=== PATIENT | male | born 1945 | race Hispanic/Latino ===

== ENCOUNTER 2016-05-01 13:40 | Inpatient (IN) | payer MEDICARE ==
[2016-05-01] MEDS ORDERED: Dextrose 50% SYRINGE Inj (50 ml) IV STA ×2 (14:58→17:59)
[2016-05-01] MEDS ORDERED: Dextrose 50% SYRINGE Inj (50 ml) ONE ×3 (14:59→17:57)
[2016-05-01 15:13] LABS: BASO # 0.1 K/uL (0.0-0.2); BASO % 1.1 % (0.0-2.0); EOS # 0.3 K/uL (0.0-0.7); EOS % 4.4 % (0.0-4.0); HEMATOCRIT 41.4 % (35.0-51.0); LYMPH # 1.2 K/uL (1.0-4.3); LYMPH % 16.1 % (20.0-40.0); MEAN CELL VOLUME 86.4 fL (80.0-94.0); MEAN CORPUSCULAR HEMOGLOBIN 29.4 pg (27.0-31.0); MEAN CORPUSCULAR HGB CONC 34.1 g/dL (33.0-37.0); MEAN PLATELET VOLUME 8.8 fL (7.2-11.7); MONO # 0.6 K/uL (0.0-0.8); MONO % 7.5 % (0.0-10.0); RED CELL DISTRIBUTION WIDTH 15.3 % (11.5-14.5); WHITE BLOOD COUNT 7.3 K/uL (4.8-10.8)
[2016-05-01] MEDS ORDERED: Epinephrine /Lidocaine HCL 1:100,000/2% 30 ml INJ ONE (15:24)
[2016-05-01 15:27] LABS: CHLORIDE 102 mmol/L (98-107); POTASSIUM 4.5 mmol/L (3.6-5.2)
[2016-05-01 15:29] LABS: AST/SGOT 15 U/L (17-59); BILIRUBIN,TOTAL 0.5 mg/dL (0.2-1.3); GFR AFRICAN-AMERICAN > 60
[2016-05-01 15:30] LABS: ALB/GLOB RATIO 1.3 (1.0-2.1); ALKALINE PHOSPHATASE 71 U/L (38-126); ALT/SGPT 15 U/L (21-72); BLOOD UREA NITROGEN 23 mg/dL (9-20); CALCIUM 8.3 mg/dl (8.6-10.4); CARBON DIOXIDE 26 mmol/L (22-30); GLUCOSE,RANDOM 51 mg/dL (75-110); TOTAL PROTEIN 6.7 g/dL (6.3-8.3)
[2016-05-01 15:33] LABS: SODIUM 142 mmol/L (132-148)
--- NOTE | 2016-05-01 16:17 | CT ---
PROCEDURE: CT HEAD WITHOUT CONTRAST. HISTORY: head trauma, lac to R eyebrow COMPARISON: None available. TECHNIQUE: Axial computed tomography images were obtained through the head/brain without intravenous contrast. Radiation dose: Total exam DLP = 956.22 mGy-cm. FINDINGS: HEMORRHAGE: No intracranial hemorrhage. BRAIN: There are mild chronic microangiopathic changes. There is no mass, mass effect or abnormal extra-axial fluid collection. VENTRICLES: There is moderate age-related global parenchymal volume loss and proportionate enlargement of the ventricles and cortical sulci. CALVARIUM: There is no calvarial fracture or extracranial soft tissue swelling. PARANASAL SINUSES: There is mild scattered mucosal thickening in the ethmoid air cells. The remaining included paranasal sinuses are predominantly clear. MASTOID AIR CELLS: Predominantly clear. OTHER FINDINGS: None. IMPRESSION: No acute intracranial abnormality. Mild chronic microangiopathic changes and moderate age-related global parenchymal volume loss.
--- NOTE | 2016-05-01 16:20 | CT ---
PROCEDURE: CT Cervical Spine without contrast HISTORY: Fall, pain COMPARISON: None available. TECHNIQUE: Axial computed tomography images were obtained of the cervical spine without the use of intravenous contrast. Coronal and sagittal reformatted images were created and reviewed. Radiation dose: Total exam DLP = 593 mGy-cm. FINDINGS: VERTEBRAE: No fracture. Normal alignment. No destructive bony lesion. DISCS/SPINAL CANAL/NEURAL FORAMINA: There is left-sided facet arthropathy with foraminal stenosis at C3-4. There is severe right-sided facet arthropathy at C4-5 with severe foraminal stenosis There is moderate facet arthropathy with right-sided foraminal stenosis at C5-6. There is a broad-based central disc protrusion at this level C6-7 is unremarkable Discs heights are grossly preserved. PARASPINAL SOFT TISSUES: Unremarkable. OTHER FINDINGS: None. IMPRESSION: Multilevel degenerative changes. No evidence of fracture
--- NOTE | 2016-05-01 16:36 | C.PDOC ---
History Of Present Illness 70-year-old male, PMHx includes Diabetes, presents to the emergency department w / complaints of dizziness. Patient states he took his Levemir this morning; States he did not eat as much as he should have, and while he was walking outside prior to arrival, patient had a syncopal episode, sustaining an injury to head and B/L hands. Patient found to be hypoglycemic, given OJ and brought to the ED for evaluation. In ED, patient is awake. Denies vomiting, fevers, numbness/weakness, headaches, chest pain, shortness of breath or any other associated symptoms. No other complaints at this time. Time Seen by Provider: 05/01/16 14:42 Chief Complaint (Nursing): Syncope History Per: Patient History/Exam Limitations: no limitations Onset/Duration Of Symptoms: Mins Current Symptoms Are (Timing): Better Severity: Moderate Pain Scale Rating Of: 7 Recent travel outside of the [place]: No Past Medical History Reviewed: Historical Data, Nursing Documentation, Vital Signs Vital Signs: Last Vital Signs Temp 97.7 F 05/01/16 14:12 Pulse 65 05/01/16 14:12 Resp 16 05/01/16 14:12 BP 126/84 05/01/16 14:12 Pulse Ox 97 05/01/16 18:10 - Medical History PMH: Depression, HTN, Pancreatitis Denies: Chronic Kidney Disease Family History: States: Unknown Family Hx - Social History Hx Tobacco Use: Yes Hx Alcohol Use: No Hx Substance Use: No - Immunization History Hx Tetanus Toxoid Vaccination: No (unsure) Hx Influenza Vaccination: No (unsure) Hx Pneumococcal Vaccination: No (unsure) Review Of Systems Except As Marked, All Systems Reviewed And Found Negative. Constitutional: Positive for: Weakness. Negative for: Fever, Chills Cardiovascular: Negative for: Chest Pain, Palpitations Gastrointestinal: Negative for: Nausea, Vomiting Musculoskeletal: Negative for: Back Pain Skin: Negative for: Rash Neurological: Positive for: Other (SYNCOPE). Negative for: Weakness, Numbness, Headache Physical Exam - Physical Exam Appears: Non-toxic, No Acute Distress Skin: Warm, Dry, No Rash, Other (ABRASION ON THE LEFT 5TH FINGER ) Head: Abrasion, Laceration, Other (1CM LAC: R EYEBROW; ABRASION TO UPPER LIP) Eye(s): bilateral: Normal Inspection, PERRL, EOMI Ear(s): Bilateral: Normal Nose: Normal Oral Mucosa: Moist Throat: Normal Neck: Normal ROM, No Midline Cervical Tenderness, No Paracervical Tenderness, Supple Chest: Symmetrical, No Tenderness Cardiovascular: Rhythm Regular, No Friction Rub, No Murmur Respiratory: Normal Breath Sounds, No Accessory Muscle Use, No Rales, No Rhonchi , No Wheezing Gastrointestinal/Abdominal: Normal Exam, Soft, No Tenderness Extremity: Normal ROM, No Tenderness, Other (Mild tenderness to the dorsal) Neurological/Psych: Oriented x3, Normal Speech, Normal Cranial Nerves, Normal Motor, Normal Sensation Gait: Steady ED Course And Treatment - Laboratory Results Result Diagrams: 05/01/16 15:05 05/01/16 15:05 ECG: Interpreted By Me, Viewed By Me ECG Rhythm: Sinus Rhythm, PVC ECG Interpretation: No Acute Changes Rate From EC O2 Sat by Pulse Oximetry: 97 (on RA) Pulse Ox Interpretation: Normal - Other Rad CT HEAD X-Ray: Viewed By Me, Read By Radiologist Interpretation: Accession No. : [id number]. Patient Name / ID : FAROOQ ÁLVAREZ / [id number]. Exam Date : 05/01/2016 15:54:02 ( Approved ). Study Comment : Sex / Age : M / 70Y. Creator : AB BABB MD. Dictator : AB BABB MD. Powder Truck Driver : Applications Engineer : AB BABB MD. Approver2 : Report Date : 05/01/2016 16:16:09. My Comment : . PROCEDURE: CT HEAD WITHOUT CONTRAST. HISTORY: head trauma, lac to R eyebrow. COMPARISON: None available. TECHNIQUE: Axial computed tomography images were obtained through the head/brain without intravenous contrast. Radiation dose: Total exam DLP = 956.22 mGy-cm. FINDINGS: HEMORRHAGE: No intracranial hemorrhage. BRAIN: There are mild chronic microangiopathic changes. There is no mass, mass effect or abnormal extra-axial fluid collection. VENTRICLES: There is moderate age- related global parenchymal volume loss and proportionate enlargement of the ventricles and cortical sulci. CALVARIUM: There is no calvarial fracture or extracranial soft tissue swelling. PARANASAL SINUSES: There is mild scattered mucosal thickening in the ethmoid air cells. The remaining included paranasal sinuses are predominantly clear. MASTOID AIR CELLS: Predominantly clear. OTHER FINDINGS: None. IMPRESSION: No acute intracranial abnormality. Mild chronic microangiopathic changes and moderate age-related global parenchymal volume loss. - CT Scan/US CT C SPINE Other Rad Studies (CT/US): Read By Radiologist, Radiology Report Reviewed CT/US Interpretation: Accession No. : [id number]. Patient Name / ID : FAROOQ ÁLVAREZ / [id number]. Exam Date : 05/01/2016 15:56:36 ( Approved ). Study Comment : Sex / Age : M / 70Y. Creator : Kelton Espinosa MD. Dictator : Kelton Espinosa MD. Powder Truck Driver : Applications Engineer : Kelton Espinosa MD. Approver2 : Report Date : 05/01/2016 16:18:54. My Comment : . PROCEDURE: CT Cervical Spine without contrast. HISTORY: Fall, pain. COMPARISON: None available. TECHNIQUE: Axial computed tomography images were obtained of the cervical spine without the use of intravenous contrast. Coronal and sagittal reformatted images were created and reviewed. Radiation dose: Total exam DLP = 593 mGy-cm. FINDINGS: VERTEBRAE: No fracture. Normal alignment. No destructive bony lesion. DISCS/SPINAL CANAL/NEURAL FORAMINA: There is left-sided facet arthropathy with foraminal stenosis at C3-4. There is severe right-sided facet arthropathy at C4-5 with severe foraminal stenosis. There is moderate facet arthropathy with right-sided foraminal stenosis at C5- 6. There is a broad-based central disc protrusion at this level. C6-7 is unremarkable Discs heights are grossly preserved. PARASPINAL SOFT TISSUES: Unremarkable. OTHER FINDINGS: None. IMPRESSION: Multilevel degenerative changes. No evidence of fracture Procedure: Wound Repair - Time Performed Time Performed: 18:00 - Time Out Time Out: Side verified, Site verified - Procedure Procedure: Wound Repair: Right eyebrow - Consent Obtained Consent obtained: Verbal - Performed by Performed by: Mid-level Provider (Jinny) - Indications Indication(s):: Laceration - Location Shape:: Linear - Debris Debris:: None - Irrigated Irrigated with ml of normal saline: 60 - Complexity Complexity:: Simple (one layer) - Wound repair method Sutures:: # (three), Size (5-0), Type (Prolene), Technique (interrupted) - Patient tolerated procedure Patient Tolerated Procedure:: Well Medical Decision Making Medical Decision Making: D50 given for glucose of 50. On re-exam, the patient's blood sugar had dropped to 31 and patient was feeling palpitations. Lee juice and Amp D50 given. Wrist xray was found to have fracture patient reports that the fracture was from January and was non-healing, this reading is most likely chronic. Patient has splint on the Right wrist and will keep it on. The case was discussed with Dr. Lani Perez (internal medicine oncall) who agrees to admit the patient to her service for observation of the hypoglycemia. Disposition - Disposition Disposition: HOSPITALIZED Disposition Time: 18:00 Condition: STABLE - POA Present On Arrival: None - Clinical Impression Clinical Impression: Syncope, Distal radius fracture, right, Hypoglycemia - Scribe Statement The provider has reviewed the documentation as recorded by the Gerardo Dixon All medical record entries made by the Scribe were at my direction and personally dictated by me. I have reviewed the chart and agree that the record accurately reflects my personal performance of the history, physical exam, medical decision making, and the department course for this patient. I have also personally directed, reviewed, and agree with the discharge instructions and disposition.
[2016-05-01] MEDS ORDERED: Lidocaine 1% Inj (20ml) ONE (16:42)
[2016-05-01] MEDS ORDERED: Oxycodone/Acetaminophen 5/325 mg Tab ONE (17:34)
[2016-05-01] MEDS ORDERED: Oxycodone/Acetaminophen 5/325 mg Tab PO STA (18:14)
[2016-05-01] MEDS ORDERED: Bacitracin 500 Units/gm Oint Foilpak UD TOP ONE (18:15)
[2016-05-01] MEDS ORDERED: Bacitracin 500 Units/gm Oint Foilpak UD ONE (18:18)
--- NOTE | 2016-05-01 18:37 | RAD ---
PROCEDURE: Right Wrist Radiographs. HISTORY: wrist injury hx of fx 2 months ago COMPARISON: None. FINDINGS: BONES: There is a subacute transverse nondisplaced impacted fracture in the distal radius. There is diffuse bone demineralization. JOINTS: The proximal and distal carpal rows are maintained. There is moderate degenerative osteoarthrosis in the 1st LONGTERM and scaphotrapezium joints. SOFT TISSUES: There is moderate soft tissue swelling at the wrist joint. OTHER FINDINGS: None. IMPRESSION: Subacute transverse nondisplaced impacted fracture in the distal radius. No dislocation. Moderate soft tissue swelling at the wrist joint.
[2016-05-01] MEDS: Sodium Chloride 0.45% 1,000 ML IV SCH (21:47)
[2016-05-01] MEDS ORDERED: Oxycodone/Acetaminophen 5/325 mg Tab PO PRN (21:48)
--- NOTE | 2016-05-01 21:53 | CP.PCM.PN ---
Subjective - Date & Time of Evaluation Date of Evaluation: 05/01/16 Time of Evaluation: 21:00 - Subjective Subjective: H&P dictated #[id number] Objective - Vital Signs/Intake and Output Vital Signs (last 24 hours): Temp Pulse Resp BP Pulse Ox 97.3 F L 48 L 20 109/60 98 05/01/16 20:10 05/01/16 20:10 05/01/16 20:10 05/01/16 20:10 05/01/16 20:10 - Medications Medications: Current Medications Sodium Chloride (Sodium Chloride 0.45%) 1,000 mls @ 75 mls/hr IV .[id number] [facility] Last Admin: 05/01/16 21:47 Dose: 75 mls/hr Oxycodone/Acetaminophen (Percocet 5/325 Mg Tab) 1 tab PO Q6H PRN PRN Reason: Pain, moderate (4-7) Stop: 05/04/16 21:49 Rosuvastatin Calcium (Crestor) 5 mg PO HS [facility] Tamsulosin HCl (Flomax) 0.4 mg PO DAILY [facility] - Labs Labs: PT 11.5 SECONDS (9.7-12.2) 05/01/16 15:05 INR 1.0 05/01/16 15:05 APTT 32 SECONDS (21-34) 05/01/16 15:05
[2016-05-01] MEDS: (Novolin R) Insulin Human Regular 100 units/ml vial SC SCH (22:32)
--- NOTE | 2016-05-02 07:03 | HP ---
CHIEF COMPLAINT: The patient had sustained a syncopal episode while he was walking to the doctor's o ffice this morning. HISTORY OF PRESENT ILLNESS: The patient is a 70-year-old male with past medical history of hypertens ion, diabetes mellitus, depression, history of ETOH abuse, quit about 9 years ago. History of pancre atic cyst, status post abdominal surgery for pancreatic cyst, questionable heart murmur who has been following up with Dr. Pierce as primary care physician, came into the ED, brought by EMS after the pa tami had sustained a syncopal episode while walking to the doctor's office. As per the patient, he was in his usual state of health until this morning and he woke up this morning, he did not eat as us ual. He was walking on the street to go to Dr. Dar Miranda's office for his orthopedic appointment for right wrist fracture, which he sustained about [address] to the doctor's office, he cooper ddenly fell to the ground and by the time he woke up there were people around him and he was on the g round. When EMS arrived, he was initially confused, not able to answer to the questions, then he cla ims that after he arrived in the Emergency Room, he was fully aware of the surroundings. He denied a ny headache, dizziness, lightheadedness, chest pain or any shortness of breath or wheezing associated or prior to this syncope. He did not have a tongue bite or urinary incontinence during the episode. As per the patient, he has been falling multiple times lately. He had fallen 4 or 5 times in the p ast 6 months. The first one was a slip and fall and [place]. He claims that he was not able to balance. He fell backwards and sustained injury last one was around the [place] time of 2015, while he was walking, he suddenly fell to the ground on t he right side sustaining a right wrist fracture for which she has been following up with orthopedics. He was evaluated at [facility] Emergency Room as per the patient, and he was sent home from the Emergen cy Room to be followed up with Ortho. All the episodes happened without any warning signs or he did not have any chest pain associated with it. He denied any other neurologic symptoms. He was never e valuated by any maint mechanic or neurologist for these fainting episodes. 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 He was supposed to follow up with endo crinologist for his diabetes. He had seen his primary care physician about 2 weeks ago and his insul in dose was adjusted. As per him, he was told to take 45 units, but he has been taking less insulin when he visited his primary care physician. His PMD advised him to stick to 45 units daily, without any change or adjustment on his own, and patient was advised to follow up with endocrinology, which james alford did not make that appointment with endocrinology. When I examined the patient, he denies any headache, dizziness. Denies any chest pain, shortness of breath or wheezing. Denies any nausea, vomiting, abdominal pain, diarrhea or constipation. Denies a ny urinary complaints. Complaining of right wrist pain from fall. There was a bruise to the right u pper eyelid. Denies any other neurologic symptoms. PAST MEDICAL HISTORY: As described, diabetes mellitus, hypertension, history of ETOH abuse, depressi on, history of pancreatic cyst. PAST SURGICAL HISTORY: Abdominal surgery for removal of the pancreatic cyst and a stent and history of tonsillectomy. FAMILY HISTORY: Montse Gehrig's disease in mother and sister. Father is diseased. He has his brother and sister living. PERSONAL HISTORY: He is single, not having any children. He lives alone. His brother helps him out . 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 SOCIAL HISTORY: He smokes 3 packs per day for the past 50 years. He used to drink alcohol heavily f rom which he had alcoholic liver disease and complications of the pancreas. He quit alcohol about 9 years ago. MEDICATIONS: Levemir 45 units daily. He does not remember the dosages of other medications, which camron subramanian takes. Metoprolol, Creon, omeprazole, Flomax, mirtazapine, and glipizide, Norvasc. ALLERGIES: No known drug allergies. REVIEW OF SYSTEMS: As described in history of present illness. All other systems reviewed and were found to be negative. PHYSICAL EXAMINATION: GENERAL: Elderly male lying in bed in no acute distress. VITAL SIGNS: Blood pressure 109/60, pulse 64, respirations 20, temperature 97.3 degrees Fahrenheit, O2 sats 98% on room air. HEENT: Pupils equal, round, reacting to light and accommodation. Extraocular muscles intact. No ic terus, no pallor, right eyelid bruise noted with swelling and erythema. No oral thrush. No pharynge al congestion. There is abrasion of the right upper lip noted. NECK: Supple. No JVD. LUNGS: Bilateral vesicular breath sounds. No wheezing, no rhonchi. CARDIOVASCULAR: S1, S2 present, regular. ABDOMEN: Soft, nontender. Bowel sounds present. No guarding, no rigidity, no rebound tenderness no pillo. CENTRAL NERVOUS SYSTEM: Alert, awake, oriented x3. No focal neurologic deficits noted. EXTREMITIES: No edema. Palpable peripheral pulses. Multiple bruises noted on the lower extremities . LABORATORY DATA: Labs done from the ED. WBC 7.3, hemoglobin 14.1, hematocrit 41.4, platelets 177. PT 11.5, INR 1.0, PTT 32. Sodium 142, potassium 4.5, chloride 102, bicarbonate 26, BUN 20, creatinin e 1.4, glucose 192, calcium 8.3, total bilirubin 0.5, AST 15, ALT 15, alkaline phosphatase 71. Cardi ac enzymes x1 negative. Total protein 6.7, albumin 3.8, globulin 2.9. Cervical CT, multilevel degenerative changes, no evidence of fracture. Head CT: No acute intracrani al abnormality, mild chronic microangiopathic changes and moderate age-related global parenchymal vol ume loss. Wrist x-ray shows subacute transverse nondisplaced impacted fracture in the distal radius, no disloca tion, moderate soft tissue swelling at the wrist joint. EKG consistent with normal sinus rhythm with frequent PVCs noted. ASSESSMENT AND PLAN: Elderly male with history of hypertension, diabetes mellitus, history of ETOH a buse, pancreatic cyst removal, depression, questionable heart murmur, came into the ED after patient had sustained a fall this morning while he was walking to the doctor's office, he claimed that he has been having multiple episodes of falls in the past 6 months and patient is being admitted for [facility] management. 1. Status post syncope, rule out secondary to cardiac arrhythmias, rule out neurologic causes, rule out vasovagal, rule out secondary to hypoglycemic agents resulting in hypoglycemia. 2. History of hypertension. 3. History of depression. 4. History of ETOH abuse. 5. History of right wrist nondisplaced fracture. PLAN: The patient is being admitted to cardiac telemetry. We will do serial cardiac enzymes, serial EKGs. We will check echocardiogram. We will obtain cardiology and neurology evaluation. We will g halina aspirin 325 mg p.o. daily. We will give Crestor 5 mg p.o. daily. Advised patient to bring his h ome medication dosages, so can restart him on his medication. We will hold Levemir and glipizide, mo nitor his Accu-Cheks. We will do neuro checks. We will do carotid Doppler and echocardiogram. We w ill check lipid profile, TSH, B12, folate, RPR, hemoglobin A1c level. We will give heparin for DVT p rophylaxis and Percocet as needed for pain. Start him on thiamine, folate and multivitamin be given nicotine patch as he is a heavy smoker will add further recommendation as his clinical course progres ses. Gene Perez MD cc: [id number] TT: 05/02/2016 07:02:32 [place]
[2016-05-02] MEDS: (Novolin R) Insulin Human Regular 100 units/ml vial SC SCH ×4 (08:05→22:00)
[2016-05-02 08:29] LABS: CHOLESTEROL 78 mg/dL (0-199)
[2016-05-02 08:51] LABS: ALB/GLOB RATIO 1.2 (1.0-2.1); ALKALINE PHOSPHATASE 68 U/L (38-126); ALT/SGPT 15 U/L (21-72); AST/SGOT 14 U/L (17-59); BILIRUBIN,DIRECT 0.4 mg/dL (0.0-0.4); BILIRUBIN,TOTAL 0.4 mg/dL (0.2-1.3); TOTAL PROTEIN 5.8 g/dL (6.3-8.3)
[2016-05-02 09:21] LABS: THYROID STIMULATING HORMONE 2.08 mIU/L (0.46-4.68)
[2016-05-02] MEDS: Sodium Chloride 0.45% 1,000 ML IV SCH ×2 (09:30→15:27)
[2016-05-02 09:39] LABS: RBC URINE 1 /hpf (0-3); URINE BILIRUBIN NEGATIVE (NEGATIVE); URINE BLOOD NEGATIVE (NEGATIVE); URINE COLOR Yellow (YELLOW); URINE GLUCOSE (UA) 1+ mg/dL (Normal); URINE KETONE NEGATIVE (NEGATIVE); URINE LEUKOCYTE ESTERASE NEG Leu/uL (Negative); URINE PROTEIN NEGATIVE (NEGATIVE); URINE UROBILINOGEN NORMAL mg/dL (0.2-1.0); WBC URINE < 1 /hpf (0-5)
[2016-05-02 09:55] LABS: FOLATE 11.6 ng/mL
--- NOTE | 2016-05-02 10:28 | MRI ---
PROCEDURE: MRI BRAIN WITHOUT CONTRAST HISTORY: stroke Vs mass COMPARISON: Noncontrast head CT from 05/01/2016 TECHNIQUE: Multiplanar, multisequence MR images of the brain were obtained without intravenous contrast enhancement. FINDINGS: HEMORRHAGE: None DWI: No evidence of an acute or early subacute infarction. BRAIN PARENCHYMA: There are moderate chronic microangiopathic changes. 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 There is no mass, mass effect or abnormal extra-axial fluid collection. There is a partially empty sella, otherwise the midline sagittal structures are normal. VENTRICLES: There is mild age-related global parenchymal volume loss and proportionate enlargement of the ventricles and cortical sulci. The left ventricle is slightly larger than the right, likely an anatomic variant. CRANIUM: There is normal bone marrow signal pattern. ORBITS: Within normal limits. PARANASAL SINUSES/MASTOIDS: There is moderate mucosal thickening in the frontal sinuses and ethmoid air cells. There is a left mastoid effusion. The remaining included paranasal sinuses and right mastoid air cells are predominantly clear. VASCULAR SYSTEM: There are normal signal voids in the larger intracranial arteries. OTHER FINDINGS: None. IMPRESSION: 1. No acute intracranial abnormality. 2. Moderate chronic microangiopathic changes and mild age-related global parenchymal volume loss.
[2016-05-02] MEDS: Multiple Vitamins Tab PO SCH (10:31)
--- NOTE | 2016-05-02 11:14 | CON ---
DATE: 05/02/2016 ATTENDING PHYSICIAN: Gene Perez MD ROOM: 671, bed A REASON FOR CONSULTATION: Syncopal attack. CHIEF COMPLAINT: The patient was brought in to [facility] with a history of loss of consciousness and fall on his right side in the street. From neurological point of view, I was called in to evaluate him for further management. 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 Last year, he fell and broke his right wrist and right forearm. Multiple falls also related to some losing his balance, that what he admits. This fall this morning, he feels like woke up with a headache and while he was walking on the street, because of the headache, he took a donut. While he was eating donut on the street, next thing he realized, he fell on his right side and injured his face and hand. No witnessed tonic-clonic activities had been documented. No bowel or bladder incontinence. No history of bitten tongue. The patient was found to have low sugar and he was given some OJ and brought to the Emergency Room. 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 FAMILY HISTORY: Not known. SOCIAL HISTORY: He quit smoking since 2007 secondary to pancreatitis. However , he admits that he had been smoking 3 packs per day. REVIEW OF SYSTEMS: As per H and P. PHYSICAL EXAMINATION: VITAL SIGNS: Blood pressure 129/69, mean arterial pressure 89, respiratory rate 16, temperature afebrile. NECK: Supple. No carotid bruit. HEART SOUNDS: Regular. CHEST: Fair air entry. EXTREMITIES: No edema in legs. FACE: Right eyebrow had stitches. There is some lid swelling with ecchymoses noted. Right upper lip has a laceration. HAND: With multiple scratch peña in the dorsum of the fingers, right more than his left side. NEUROLOGIC EXAMINATION: MENTAL STATUS: He is awake, alert, oriented to person, place, and time. No confabulation. There is significant retrograde amnesia from the fall. There is no antegrade amnesia. No suicidal ideation. CRANIAL NERVES: Visual field intact. Pupils react to light. Extraocular movement normal. No nystagmus. No facial sensory deficit. Facial asymmetry because of the swelling of his face on his right side noted. Hearing is normal. Tongue is midline. Good gag. MOTOR: On outstretched hands with eyes closed, no drift noted. Power is symmetric on either side. No asterixis on outstretched hand with eyes closed. Deep tendon reflexes are absent. Plantars are upgoing on both sides. SENSORY: Significant bilateral dissymmetric sensorimotor neuropathy without affecting the posterior column. COORDINATION: [id number] test is intact with mild tremor into it. CONCLUSION: Upon reviewing his history and neurological examination, the patient has been presenting with recurrent falls. The recent fall associating with loss of consciousness. There is a possibility of nonconvulsive seizures from neurological point of view unless otherwise ruled out. Other possible causes, metabolic causes, include hypoglycemia could be a consideration. Other causes from cardiac causes including arrhythmias should be ruled out. 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 WORKUP: A CT of the head reported as negative. CT of the cervical spine, some neural foraminal stenosis at C3-C4 level. EKG normal sinus rhythm. BLOOD WORKUP: WBC 7.3, hemoglobin 14.1, hematocrit 41.4, platelets 177. PT 11.5, INR 1.0, PTT 32. Sodium 142, potassium 4.5, chloride 102, bicarbonate 26 , BUN 23, creatinine 1.4, glucose 208, AST and ALT are 15. Tox screen is not done. The patient is recommended to have: 1. Carotid Doppler, echocardiogram, MRI of the brain and EEG. 2. Agree with thiamine and aspirin for now. Multivitamins also can be added. 3. Abstinence from smoking is well discussed with him. He is aware of it. He is going to try for the same. The patient will be followed closely with you. Jaya Koch MD cc: [id number] TT: 05/02/2016 11:13:53 Confirmation # [id number] Dictation # [id number] en MTDD
--- NOTE | 2016-05-02 11:27 | CP.PCM.PN ---
Subjective - Date & Time of Evaluation Date of Evaluation: 05/02/16 Time of Evaluation: 11:00 - Subjective Subjective: Progress note dictated #[id number] Objective - Vital Signs/Intake and Output Vital Signs (last 24 hours): Temp Pulse Resp BP Pulse Ox 97.8 F 70 20 123/71 97 05/02/16 09:21 05/02/16 09:21 05/02/16 09:21 05/02/16 09:21 05/02/16 09:21 Intake and Output: 05/02/16 05/02/16 06:59 18:59 Intake Total 1100 Output Total 200 Balance 900 - Medications Medications: Current Medications Aspirin (Aspirin) 325 mg PO DAILY [facility] Last Admin: 05/02/16 10:31 Dose: 325 mg Folic Acid (Folic Acid) 1 mg PO DAILY [facility] Last Admin: 05/02/16 10:31 Dose: 1 mg Heparin Sodium (Porcine) (Heparin) 5,000 units SC Q8 [facility] Last Admin: 05/02/16 06:18 Dose: 5,000 units Sodium Chloride (Sodium Chloride 0.45%) 1,000 mls @ 75 mls/hr IV .[id number] [facility] Last Admin: 05/01/16 21:47 Dose: 75 mls/hr Insulin Human Regular (Novolin R) 1 unit SC ACHS [facility] PRN Reason: Protocol Last Admin: 05/02/16 08:05 Dose: Not Given Multivitamins (Hexavitamin) 1 tab PO DAILY [facility] Last Admin: 05/02/16 10:31 Dose: 1 tab Nicotine (Nicoderm Cq) 1 patch TD DAILY [facility] Last Admin: 05/02/16 10:32 Dose: Not Given Pneumococcal Polyvalent Vaccine (Pneumovax 23 Vaccine) 0.5 ml IM .ONCE ONE Stop: 05/03/16 10:01 Rosuvastatin Calcium (Crestor) 5 mg PO HS [facility] Last Admin: 05/01/16 23:11 Dose: 5 mg Tamsulosin HCl (Flomax) 0.4 mg PO DAILY [facility] Last Admin: 05/02/16 10:31 Dose: 0.4 mg Thiamine HCl (Vitamin B1 Tab) 100 mg PO DAILY [facility] Last Admin: 05/02/16 10:31 Dose: 100 mg - Labs Labs: PT 11.5 SECONDS (9.7-12.2) 03/09/17 15:05 INR 1.0 05/01/16 15:05 APTT 32 SECONDS (21-34) 05/02/16 00:13
--- NOTE | 2016-05-02 12:54 | CP.PCM.CON ---
<Kulwant Diaz - Last Filed: 05/02/16 12:45> History of Present Illness - History of Present Illness History of Present Illness: Consult note for Dr Villatoro: 70 M with pmh of pancreatic cyst, HTN, DM, Depression, and ETOH abuse presents with syncopy. Pt states that he was in the street walking to his doctors office and the next this he realized he was down on the floor with people around him. Pt complains of multiple falls in the past few 6 months with one time fracturing his R wrist which he sustained about 3 months ago. He denied any chest pain or shortness of breath at the time. He denies biting his tongue or having any urinary incontinence. He states that all episodes of syncopy did not have any warning signs. He states that he has not followed up with any bisque kiln placer or neurologist for these episdoes. He denies any headaches, dizziness, f/c, n/v, sob, cp, abd pain, urinary or bm changes. PMH: as above PSH: Pancreatic cyst remova, CAD with stent, tonsillectomy MED: refer to [facility] ALL: NKA SH: smokes 2-3 PPD for 50 years, drank heavily his entire life but quit 9 years ago, denies drug usage Review of Systems - Review of Systems All systems: reviewed and no additional remarkable complaints except (HPI) Past Patient History - Infectious Disease Hx of Infectious Diseases: None - Past Medical History & Family History Past Medical History?: Yes - Past Social History Smoking Status: Heavy Smoker > 10 Cigarettes Daily Alcohol: None Drugs: Denies - CARDIAC Hx Hypertension: Yes - PULMONARY Hx Respiratory Disorders: No - NEUROLOGICAL Hx Neurological Disorder: Yes Hx Dizziness: Yes - HEENT Hx HEENT Problems: No - RENAL Hx Chronic Kidney Disease: No - ENDOCRINE/METABOLIC Hx Endocrine Disorders: Yes Hx Diabetes Mellitus Type 2: Yes - HEMATOLOGICAL/ONCOLOGICAL Hx Blood Disorders: No - INTEGUMENTARY Hx Dermatological Problems: No - MUSCULOSKELETAL/RHEUMATOLOGICAL Hx Falls: No - GASTROINTESTINAL Hx Pancreatitis: Yes - GENITOURINARY/GYNECOLOGICAL Hx Genitourinary Disorders: Yes Hx Prostate Problems: Yes - PSYCHIATRIC Hx Depression: Yes Hx Substance Use: No - SURGICAL HISTORY Other/Comment: cyst drainage - ANESTHESIA Hx Anesthesia: Yes Hx Anesthesia Reactions: No Hx Malignant Hyperthermia: No Meds Allergies/Adverse Reactions: Allergies Allergy/AdvReac Type Severity Reaction Status Date / Time No Known Allergies Allergy Verified 05/01/16 14:07 - Medications Medications: Current Medications Aspirin (Aspirin) 325 mg PO DAILY [facility] Last Admin: 05/02/16 10:31 Dose: 325 mg Folic Acid (Folic Acid) 1 mg PO DAILY [facility] Last Admin: 05/02/16 10:31 Dose: 1 mg Heparin Sodium (Porcine) (Heparin) 5,000 units SC Q8 [facility] Last Admin: 05/02/16 06:18 Dose: 5,000 units Sodium Chloride (Sodium Chloride 0.45%) 1,000 mls @ 75 mls/hr IV .[id number] [facility] Last Admin: 05/01/16 21:47 Dose: 75 mls/hr Insulin Human Regular (Novolin R) 0 unit SC ACHS [facility] PRN Reason: Protocol Multivitamins (Hexavitamin) 1 tab PO DAILY [facility] Last Admin: 05/02/16 10:31 Dose: 1 tab Nicotine (Nicoderm Cq) 1 patch TD DAILY [facility] Last Admin: 05/02/16 10:32 Dose: Not Given Pneumococcal Polyvalent Vaccine (Pneumovax 23 Vaccine) 0.5 ml IM .ONCE ONE Stop: 05/03/16 10:01 Rosuvastatin Calcium (Crestor) 5 mg PO HS [facility] Last Admin: 05/01/16 23:11 Dose: 5 mg Tamsulosin HCl (Flomax) 0.4 mg PO DAILY [facility] Last Admin: 05/02/16 10:31 Dose: 0.4 mg Thiamine HCl (Vitamin B1 Tab) 100 mg PO DAILY [facility] Last Admin: 05/02/16 10:31 Dose: 100 mg Physical Exam - Constitutional Appears: No Acute Distress - Head Exam Head Exam: ATRAUMATIC, NORMAL INSPECTION, NORMOCEPHALIC - Eye Exam Eye Exam: EOMI, Normal appearance, PERRL - ENT Exam ENT Exam: Mucous Membranes Moist, Normal Exam - Neck Exam Neck exam: Positive for: Normal Inspection - Respiratory Exam Respiratory Exam: Clear to Auscultation Bilateral, NORMAL BREATHING PATTERN. absent: Wheezes - Cardiovascular Exam Cardiovascular Exam: REGULAR RHYTHM, RRR, +S1, +S2 - GI/Abdominal Exam GI & Abdominal Exam: Normal Bowel Sounds, Soft. absent: Tenderness - Extremities Exam Extremities exam: Positive for: normal inspection - Back Exam Back exam: NORMAL INSPECTION - Neurological Exam Neurological exam: Alert, CN II-XII Intact, Normal Gait, Oriented x3, Reflexes Normal - Psychiatric Exam Psychiatric exam: Normal Affect, Normal Mood - Skin Skin Exam: Dry, Intact, Normal Color, Warm Results - Vital Signs Recent Vital Signs: Last Vital Signs Temp 97.8 F 05/02/16 09:21 Pulse 70 05/02/16 09:21 Resp 20 05/02/16 09:21 BP 123/71 05/02/16 09:21 Pulse Ox 97 05/02/16 09:21 - Labs Result Diagrams: 05/01/16 15:05 05/01/16 15:05 Assessment & Plan - Assessment and Plan (Free Text) Assessment: 70 M with pmh of pancreatic cyst, HTN, DM, Depression, and ETOH abuse presents with syncopy. - Plan for Tilt table test today, if negative consider implantable Loop recorder - F/u Echo - F/u EKG - F/u neurology recs - Continue Aspirin and Statins - MRI and Head CT showed No acute intracranial abnormality - Cervical spine CT - no fractures - Gi/ DVT ppx Thank you for the consult. Will follow closely. Case & plan was reviewed and discussed in detail with Dr Villatoro. <Lizette Villatoro - Last Filed: 05/07/16 10:18> Results - Vital Signs Recent Vital Signs: Last Vital Signs Temp 97.6 F 05/05/16 23:05 Pulse 68 05/05/16 23:43 Resp 20 05/05/16 23:05 BP 151/81 H 05/05/16 23:05 Pulse Ox 97 05/05/16 23:05 - Labs Result Diagrams: 05/01/16 15:05 05/03/16 06:09 Attending/Attestation - Attestation I have personally seen and examined this patient.: Yes I have fully participated in the care of the patient.: Yes I have reviewed all pertinent clinical information: Yes Notes (Text): 05/07/16 10:17 plan for tilt if negative loop insertion f/u carotid
--- NOTE | 2016-05-02 13:22 | CON ---
DATE: 05/02/2016 ROOM: 671 This is a 70-year-old male with known history of type 2 insulin-requiring diabetes, presenting here w ith frequent bouts of syncope and near syncopal episodes related to his glycemic fluctuations and hyp oglycemic episodes related to a very poor and variable oral intake in the last few days prior to admi ssion. PAST MEDICAL HISTORY: As mentioned above, history of type 2 insulin-requiring diabetes, currently us ing Levemir given as 45 units subQ once daily with glipizide given as 5 mg b.i.d. and also regular in sulin coverage given at a variable dosing at home. History of hypertensive cardiovascular disease an d dyslipidemia. FAMILY HISTORY: Positive for hypertension and diabetes. SOCIAL HISTORY: The patient has a supportive family. No known substance use. REVIEW OF SYSTEMS: As mentioned above, admits to generalized body weakness with episodic bouts of di zziness and lightheadedness, worse on the day of admission. Also, admits to frequent near syncopal a nd syncopal episodes over the last few days prior to admission. No recent chest pains or palpitation s or PNDs. His oral intake is variable and suboptimal with nausea, dyspepsia, and vague upper abdomi nal pain. No recent alterations of bowel and/or urinary patterns noted. PHYSICAL EXAMINATION: GENERAL: This is an average built male, in no apparent distress. VITAL SIGNS: Blood pressure of 140/80, pulse of 70 beats per minute and regular, temperature 99, res pirations 20. LABORATORIES: His glucose levels have dropped as low as 45-51 mg/dL. Chemistry showed a BUN of 23, sodium 142, potassium 4.5, chloride 102, CO2 26, glucose 51 and creatinine 1.4. His troponin is less than 0.012. 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 PLAN OF MANAGEMENT: We will discontinue all the basal insulin therapy at this time and switch him ov er to a very low-dose correction scale given before meals and at bedtime with regular insulin coverag e as ordered. We will observe his glycemic profile and glycemic fluctuations thereof and if hypergly cemic levels supervene, then we will start him back on a low-dose oral hypoglycemic drug therapy as i ndicated. If fasting hyperglycemic levels again supervene, then we will start him on a low-dose basa l insulin with Levemir or Lantus as indicated. We will obtain serial chemistries and supplement acco rdingly as needed. We will follow. Ragini Redding MD cc: [id number] TT: 05/02/2016 13:21:55 Confirmation # [id number] Dictation # [id number] en
[2016-05-02] MEDS ORDERED: ceFAZolin IV 1 gm in Dextrose 50 ML IVPB ONE (13:46)
[2016-05-02] MEDS ORDERED: Lidocaine 2% Inj (20ml) ONE (13:46)
--- NOTE | 2016-05-02 14:11 | CP.PCM.CON ---
History of Present Illness - History of Present Illness History of Present Illness: Patient seen and evaluated Admitted for multiple episodes of syncope Recommend Complete cardiac work up include ECHO, Carotids, Tilt and Loop monitorimg EP and Neuro eval Cath Prior to discharge Past Patient History - Infectious Disease Hx of Infectious Diseases: None - Past Medical History & Family History Past Medical History?: Yes - Past Social History Smoking Status: Heavy Smoker > 10 Cigarettes Daily Alcohol: None Drugs: Denies - CARDIAC Hx Hypertension: Yes - PULMONARY Hx Respiratory Disorders: No - NEUROLOGICAL Hx Neurological Disorder: Yes Hx Dizziness: Yes - HEENT Hx HEENT Problems: No - RENAL Hx Chronic Kidney Disease: No - ENDOCRINE/METABOLIC Hx Endocrine Disorders: Yes Hx Diabetes Mellitus Type 2: Yes - HEMATOLOGICAL/ONCOLOGICAL Hx Blood Disorders: No - INTEGUMENTARY Hx Dermatological Problems: No - MUSCULOSKELETAL/RHEUMATOLOGICAL Hx Falls: No - GASTROINTESTINAL Hx Pancreatitis: Yes - GENITOURINARY/GYNECOLOGICAL Hx Genitourinary Disorders: Yes Hx Prostate Problems: Yes - PSYCHIATRIC Hx Depression: Yes Hx Substance Use: No - SURGICAL HISTORY Other/Comment: cyst drainage - ANESTHESIA Hx Anesthesia: Yes Hx Anesthesia Reactions: No Hx Malignant Hyperthermia: No Meds Allergies/Adverse Reactions: Allergies Allergy/AdvReac Type Severity Reaction Status Date / Time No Known Allergies Allergy Verified 05/01/16 14:07 - Medications Medications: Current Medications Aspirin (Aspirin) 325 mg PO DAILY [facility] Last Admin: 05/02/16 10:31 Dose: 325 mg Folic Acid (Folic Acid) 1 mg PO DAILY [facility] Last Admin: 05/02/16 10:31 Dose: 1 mg Glipizide (Glucotrol) 5 mg PO ACBD [facility] Heparin Sodium (Porcine) (Heparin) 5,000 units SC Q8 [facility] Last Admin: 05/02/16 06:18 Dose: 5,000 units Sodium Chloride (Sodium Chloride 0.45%) 1,000 mls @ 75 mls/hr IV .[id number] [facility] Last Admin: 05/01/16 21:47 Dose: 75 mls/hr Insulin Human Regular (Novolin R) 0 unit SC ACHS [facility] PRN Reason: Protocol Last Admin: 05/02/16 12:55 Dose: Not Given Multivitamins (Hexavitamin) 1 tab PO DAILY [facility] Last Admin: 05/02/16 10:31 Dose: 1 tab Nicotine (Nicoderm Cq) 1 patch TD DAILY [facility] Last Admin: 05/02/16 10:32 Dose: Not Given Pneumococcal Polyvalent Vaccine (Pneumovax 23 Vaccine) 0.5 ml IM .ONCE ONE Stop: 05/03/16 10:01 Rosuvastatin Calcium (Crestor) 5 mg PO [facility] Last Admin: 05/01/16 23:11 Dose: 5 mg Tamsulosin HCl (Flomax) 0.4 mg PO DAILY [facility] Last Admin: 05/02/16 10:31 Dose: 0.4 mg Thiamine HCl (Vitamin B1 Tab) 100 mg PO DAILY [facility] Last Admin: 05/02/16 10:31 Dose: 100 mg Results - Vital Signs Recent Vital Signs: Last Vital Signs Temp 97.8 F 05/02/16 09:21 Pulse 70 05/02/16 09:21 Resp 20 05/02/16 09:21 BP 123/71 05/02/16 09:21 Pulse Ox 97 05/02/16 09:21 - Labs Result Diagrams: 05/01/16 15:05 05/01/16 15:05
[2016-05-02] MEDS ORDERED: (Novolin R) Insulin Human Regular 100 units/ml vial SC SCH (16:30)
--- NOTE | 2016-05-02 18:50 | CARD ---
APPROVED REPORT EXAM: Two-dimensional and M-mode echocardiogram with Doppler and color Doppler. Other Information Quality : GoodRhythm : NSR INDICATION Syncope RISK FACTORS Hypertension M-Mode DIMENSIONS RVDd1.29 (2.1-3.2cm)Left Atrium (MM)3.36 (2.5-4.0cm) IVSd1.84 (0.7-1.1cm)Aortic Root3.40 (2.2-3.7cm) LVDd5.27 (4.0-5.6cm)Aortic Cusp Exc.1.56 (1.5-2.0cm) PWd1.76 (0.7-1.1cm)FS (%) 39 % LVDs3.24 (2.0-3.8cm)LVEF (%)68 (>50%) Aortic Valve AoV Peak Pjktdhqo902.3cm/Rene Peak GR.15mmHg Mitral Valve MV E Alyyaull904.7cm/sMV A Xlkareiv951.1cm/sE/A ratio0.9 TDI E/Lateral E'0.0E/Medial E'0.0 Tricuspid Valve TR Peak Ngzdszmt950tn/sTR Peak Gr.71gxPuFCML30ivHo LEFT VENTRICLE The left ventricle is normal size. There is mild concentric left ventricular hypertrophy. The left ventricular function is normal. The left ventricular ejection fraction is within the normal range. About 65% No regional wall motion abnormalities noted. The left ventricular diastolic function is normal. No left ventricle thrombus noted on this study. There is no ventricular septal defect visualized. There is no left ventricular aneurysm. There is no mass noted in the left ventricle. RIGHT VENTRICLE The right ventricle is normal size. There is normal right ventricular wall thickness. The right ventricular systolic function is normal. ATRIA The left atrium size is normal. The right atrium size is normal. The interatrial septum is intact with no evidence for an atrial septal defect. AORTIC VALVE The aortic valve is normal in structure and function. No aortic regurgitation is present. There is no aortic valvular stenosis. There is no aortic valvular vegetation. MITRAL VALVE The mitral valve is normal in structure and function. There is no evidence of mitral valve prolapse. There is no mitral valve stenosis. There is no mitral valve regurgitation noted. TRICUSPID VALVE The tricuspid valve is normal in structure and function. There is no tricuspid valve regurgitation noted. There is no tricuspid valve prolapse or vegetation. There is no tricuspid valve stenosis. PULMONIC VALVE The pulmonary valve is normal in structure and function. There is no pulmonic valvular regurgitation. There is no pulmonic valvular stenosis. GREAT VESSELS The aortic root is normal in size. The ascending aorta is normal in size. The pulmonary artery is normal. The IVC is normal in size and collapses >50% with inspiration. PERICARDIAL EFFUSION The pericardium appears normal. There is no pleural effusion. <Conclusion> There is mild concentric left ventricular hypertrophy. Normal LV systolic function and Doppler.
--- NOTE | 2016-05-02 20:19 | PN ---
DATE: 05/02/2016 The patient was seen and examined at bedside. The patient is feeling much better, offers no new complaints. He denies any further episodes of syncope, dizziness or hypoglycemia. REVIEW OF SYSTEMS: All other systems reviewed and were found to be negative. PHYSICAL EXAMINATION: GENERAL: An elderly male lying in bed in no acute distress. VITAL SIGNS: Blood pressure 131/67, pulse 84, respirations 20, temperature 97.5 degrees Fahrenheit, O2 sat is 98% on room air. HEENT: Pupils equal, round, reacting to light and accommodation. Extraocular muscles intact. No icterus, no pallor. No oral thrush. No pharyngeal congestion. NECK: Supple. No JVD. LUNGS: Bilateral vesicular breath sounds. No wheezing, no rhonchi. CARDIOVASCULAR: S1, S2 present, regular. ABDOMEN: Soft, nontender. Bowel sounds present. No guarding, no rigidity, no rebound tenderness noted. CENTRAL NERVOUS SYSTEM: Alert, awake, oriented x 3. No focal deficits noted. EXTREMITIES: Palpable peripheral pulses. No edema. Right upper extremity with a nondisplaced fracture. MEDICATIONS: Include aspirin 325 mg daily, folic acid 1 mg daily, glipizide 5 mg p.o. before meals daily, heparin 5000 units subQ q.8 hours, multivitamin 1 tab daily, Nicoderm patch, Crestor 5 mg daily, half NS at 75 mL an hour, Flomax 0.4 mg daily, thiamine 100 mg daily. LABORATORY DATA: From this morning: Glucose 71. Hemoglobin A1c 8.3. Bilirubin 0.4, AST 14, ALT 15. Cardiac enzymes x 3 negative. Ammonia level less than 9. Triglycerides 67, cholesterol 78, LDL 39, HDL 25, B12 of 328, folate 11.6. TSH 2.08. UA: Specific gravity 1.015, pH 5.0, glucose 1+. Urine drug screen negative. RPR nonreactive. MRI of the brain: No acute intracranial abnormality, moderate chronic microangiopathic changes and mild age -related global parenchymal volume loss. EEG pending. Carotid Doppler done, results are pending. Echo results are pending. The patient underwent cardiac catheterization; pending results of cardiac catheterization. ASSESSMENT AND PLAN: An elderly male with a history of hypertension, hyperlipidemia, diabetes mellitus, ETOH abuse, depression, status post pancreatic cyst removal, admitted for multiple episodes of syncope. A cardiac workup is in progress. Neurology consult appreciated. Discussed with cardiology, Dr. Elliott. Follow up with cath report. The patient may require further evaluation by EP physician. May be for possible loop recorder as per Dr. Villatoro. Will continue with his current medication. Endocrinology consultation appreciated. The patient is restarted on his insulin. Unable to obtain his home medication list. Will follow up with pending lab results. Gene Perez MD cc: [id number] TT: 05/02/2016 20:18:39 Confirmation # [id number] Dictation # [id number] robert SANTO
--- NOTE | 2016-05-02 21:17 | OP ---
PROCEDURE DATE: 05/02/2016 PROCEDURE: The patient in for implantation of an implantable loop recorder. INDICATIONS: Syncope, palpitations and arrhythmia, PVCs. PROCEDURE IN DETAIL: The patient came to the industrial laborer in fasting state. The patient was prepped and draped in sterile manner. IV antibiotics were initiated, a scalpel from the ILR kit was used to jonnathan e a small incision and implantation, the loop recorder subcutaneously was implanted successfully unde r the skin. Steri-Strips were placed and a sterile dressing were also above the small incision where the implantable loop recorder was placed. No complications. Hemostasis was observed and the R wave s were well above 0.3, which was appropriate for the loop monitor. The patient tolerated procedure w ell and returned back to his room. Lizette Villatoro MD cc: [id number] TT: 05/02/2016 21:16:44 me
[2016-05-03] MEDS: Sodium Chloride 0.45% 1,000 ML IV SCH ×2 (05:17→17:54)
[2016-05-03 06:27] LABS: CHLORIDE 103 mmol/L (98-107)
[2016-05-03 06:28] LABS: POTASSIUM 4.6 mmol/L (3.6-5.2); SODIUM 140 mmol/L (132-148)
[2016-05-03 06:30] LABS: ALB/GLOB RATIO 1.3 (1.0-2.1); ALKALINE PHOSPHATASE 72 U/L (38-126); AST/SGOT 15 U/L (17-59); BILIRUBIN,TOTAL 0.3 mg/dL (0.2-1.3); BLOOD UREA NITROGEN 23 mg/dL (9-20); CARBON DIOXIDE 23 mmol/L (22-30); CHOLESTEROL 78 mg/dL (0-199); GFR AFRICAN-AMERICAN > 60; GLUCOSE,RANDOM 146 mg/dL (75-110); TOTAL PROTEIN 5.9 g/dL (6.3-8.3)
[2016-05-03 06:31] LABS: ALT/SGPT 20 U/L (21-72); CALCIUM 7.9 mg/dl (8.6-10.4)
[2016-05-03 07:01] LABS: CORTISOL AM 2.7 ug/dL (4.46-22.7)
[2016-05-03 07:02] LABS: THYROID STIMULATING HORMONE 1.55 mIU/L (0.46-4.68)
--- NOTE | 2016-05-03 07:14 | CP.PCM.PN ---
Subjective - Date & Time of Evaluation Date of Evaluation: 05/03/16 Time of Evaluation: 07:06 - Subjective Subjective: no cp few palpitations Objective - Vital Signs/Intake and Output Vital Signs (last 24 hours): Temp Pulse Resp BP Pulse Ox 97.7 F 70 20 140/80 96 05/03/16 00:01 05/03/16 04:00 05/03/16 00:01 05/03/16 00:01 05/03/16 00:01 Intake and Output: 05/03/16 05/03/16 06:59 18:59 Intake Total 1320 Output Total 1525 Balance -205 - Medications Medications: Current Medications Aspirin (Aspirin) 325 mg PO DAILY [facility] Last Admin: 05/02/16 10:31 Dose: 325 mg Folic Acid (Folic Acid) 1 mg PO DAILY [facility] Last Admin: 05/02/16 10:31 Dose: 1 mg Glipizide (Glucotrol) 5 mg PO ACBD [facility] Last Admin: 05/02/16 18:00 Dose: 5 mg Heparin Sodium (Porcine) (Heparin) 5,000 units SC Q8 [facility] Last Admin: 05/03/16 06:59 Dose: 5,000 units Sodium Chloride (Sodium Chloride 0.45%) 1,000 mls @ 75 mls/hr IV .[id number] [facility] Last Admin: 05/03/16 05:17 Dose: 75 mls/hr Insulin Human Regular (Novolin R) 0 unit SC ACHS [facility] PRN Reason: Protocol Last Admin: 05/02/16 22:00 Dose: Not Given Multivitamins (Hexavitamin) 1 tab PO DAILY [facility] Last Admin: 05/02/16 10:31 Dose: 1 tab Nicotine (Nicoderm Cq) 1 patch TD DAILY [facility] Last Admin: 05/02/16 10:32 Dose: Not Given Pneumococcal Polyvalent Vaccine (Pneumovax 23 Vaccine) 0.5 ml IM .ONCE ONE Stop: 05/03/16 10:01 Rosuvastatin Calcium (Crestor) 5 mg PO HS [facility] Last Admin: 05/02/16 21:47 Dose: 5 mg Tamsulosin HCl (Flomax) 0.4 mg PO DAILY [facility] Last Admin: 05/02/16 10:31 Dose: 0.4 mg Thiamine HCl (Vitamin B1 Tab) 100 mg PO DAILY [facility] Last Admin: 05/02/16 10:31 Dose: 100 mg - Labs Labs: 05/03/16 06:09 PT 11.5 SECONDS (9.7-12.2) 05/01/16 15:05 INR 1.0 05/01/16 15:05 APTT 32 SECONDS (21-34) 05/02/16 00:13 - Constitutional Appears: Well, Older Than Stated Age - Head Exam Head Exam: NORMOCEPHALIC - Eye Exam Eye Exam: Normal appearance - ENT Exam ENT Exam: Mucous Membranes Moist - Respiratory Exam Respiratory Exam: NORMAL BREATHING PATTERN. absent: Rales - Cardiovascular Exam Cardiovascular Exam: REGULAR RHYTHM, Murmur - GI/Abdominal Exam GI & Abdominal Exam: Normal Bowel Sounds - Exam External exam: Ecchymosis - Extremities Exam Extremities Exam: absent: Pedal Edema - Neurological Exam Neurological Exam: Alert, Awake - Psychiatric Exam Psychiatric exam: Normal Affect, Normal Mood - Skin Skin Exam: Dry, Warm
[2016-05-03] MEDS: (Novolin R) Insulin Human Regular 100 units/ml vial SC SCH ×4 (07:45→21:15)
[2016-05-03] MEDS ORDERED: Pneumococcal 23-Valent Vaccine IM ONE (10:00)
[2016-05-03] MEDS: Multiple Vitamins Tab PO SCH (10:56)
--- NOTE | 2016-05-03 15:42 | CP.PCM.PN ---
Subjective - Date & Time of Evaluation Date of Evaluation: 05/03/16 Time of Evaluation: 15:00 - Subjective Subjective: Progress note dictated #[id number] Objective - Vital Signs/Intake and Output Vital Signs (last 24 hours): Temp Pulse Resp BP Pulse Ox 97.8 F 60 20 144/76 96 05/03/16 15:40 05/03/16 15:40 05/03/16 15:40 05/03/16 15:40 05/03/16 15:40 Intake and Output: 05/03/16 05/03/16 06:59 18:59 Intake Total 1320 Output Total 1525 Balance -205 - Medications Medications: Current Medications Aspirin (Aspirin) 325 mg PO DAILY [facility] Last Admin: 05/03/16 10:56 Dose: 325 mg Folic Acid (Folic Acid) 1 mg PO DAILY [facility] Last Admin: 05/03/16 10:56 Dose: 1 mg Glipizide (Glucotrol) 10 mg PO ACBD [facility] Heparin Sodium (Porcine) (Heparin) 5,000 units SC Q8 [facility] Last Admin: 05/03/16 14:50 Dose: 5,000 units Sodium Chloride (Sodium Chloride 0.45%) 1,000 mls @ 75 mls/hr IV .[id number] [facility] Last Admin: 05/03/16 05:17 Dose: 75 mls/hr Insulin Human Regular (Novolin R) 0 unit SC ACHS [facility] PRN Reason: Protocol Last Admin: 05/03/16 12:01 Dose: Not Given Multivitamins (Hexavitamin) 1 tab PO DAILY [facility] Last Admin: 05/03/16 10:56 Dose: 1 tab Nicotine (Nicoderm Cq) 1 patch TD DAILY [facility] Last Admin: 05/03/16 11:09 Dose: Not Given Rosuvastatin Calcium (Crestor) 5 mg PO HS [facility] Last Admin: 05/02/16 21:47 Dose: 5 mg Tamsulosin HCl (Flomax) 0.4 mg PO DAILY [facility] Last Admin: 05/03/16 10:56 Dose: 0.4 mg Thiamine HCl (Vitamin B1 Tab) 100 mg PO DAILY [facility] Last Admin: 05/03/16 10:56 Dose: 100 mg - Labs Labs: 05/03/16 06:09 PT 11.5 SECONDS (9.7-12.2) 05/01/16 15:05 INR 1.0 05/01/16 15:05 APTT 32 SECONDS (21-34) 05/02/16 00:13
--- NOTE | 2016-05-03 18:10 | CP.PCM.PN ---
Subjective - Date & Time of Evaluation Date of Evaluation: 05/03/16 Time of Evaluation: 16:15 - Subjective Subjective: Patient seen and evaluated H/O Recurrent Syncope Denies chest pain and dyspnea Tilt table test Normal ECHO: Normal LV function, No valvular issuea EKG: Quitt.chQ monitor placed by Dr. Villatoro Carotid Artery Disease (Lt ICA moderate to severe disease): Dr. Khalil consulted Possible cath Thursday/Thursday Objective - Vital Signs/Intake and Output Vital Signs (last 24 hours): Temp Pulse Resp BP Pulse Ox 97.8 F 60 20 144/76 96 05/03/16 15:40 05/03/16 16:00 05/03/16 15:40 05/03/16 15:40 05/03/16 15:40 Intake and Output: 05/03/16 05/03/16 06:59 18:59 Intake Total 1320 Output Total 1525 Balance -205 - Medications Medications: Current Medications Amlodipine Besylate (Norvasc) 10 mg PO DAILY [facility] Last Admin: 05/03/16 17:50 Dose: 10 mg Aspirin (Aspirin) 325 mg PO DAILY [facility] Last Admin: 05/03/16 10:56 Dose: 325 mg Folic Acid (Folic Acid) 1 mg PO DAILY [facility] Last Admin: 05/03/16 10:56 Dose: 1 mg Glipizide (Glucotrol) 10 mg PO ACBD [facility] Last Admin: 05/03/16 17:51 Dose: 10 mg Heparin Sodium (Porcine) (Heparin) 5,000 units SC Q8 [facility] Last Admin: 05/03/16 14:50 Dose: 5,000 units Sodium Chloride (Sodium Chloride 0.45%) 1,000 mls @ 75 mls/hr IV .[id number] [facility] Last Admin: 05/03/16 17:54 Dose: 75 mls/hr Insulin Human Regular (Novolin R) 0 unit SC ACHS [facility] PRN Reason: Protocol Last Admin: 05/03/16 16:28 Dose: Not Given Metoprolol Tartrate (Lopressor) 25 mg PO Q12 [facility] Multivitamins (Hexavitamin) 1 tab PO DAILY [facility] Last Admin: 05/03/16 10:56 Dose: 1 tab Nicotine (Nicoderm Cq) 1 patch TD DAILY [facility] Last Admin: 05/03/16 11:09 Dose: Not Given Rosuvastatin Calcium (Crestor) 5 mg PO HS [facility] Last Admin: 05/02/16 21:47 Dose: 5 mg Tamsulosin HCl (Flomax) 0.4 mg PO DAILY [facility] Last Admin: 05/03/16 10:56 Dose: 0.4 mg Thiamine HCl (Vitamin B1 Tab) 100 mg PO DAILY [facility] Last Admin: 05/03/16 10:56 Dose: 100 mg - Labs Labs: 05/03/16 06:09 PT 11.5 SECONDS (9.7-12.2) 05/01/16 15:05 INR 1.0 05/01/16 15:05 APTT 32 SECONDS (21-34) 05/02/16 00:13
--- NOTE | 2016-05-03 18:26 | CP.PCM.CON ---
History of Present Illness - History of Present Illness History of Present Illness: VASCULAR SURGERY CONSULT NOTE FOR DR. DENIS 70yo M with PMHx of DM, HTN, pancreatitis secondary to etoh abuse presented with dizziness and syncope and vascular surgery is consulted for carotid artery disease. Patient presented to the ED on 05/01/16 after dizziness and syncope. He was found to be hypoglycemic. CT head was negative. He has had multiple episodes of mechanical falls over the past 6 months with one resulting in a fractured right distal radius. Patient reports pain "all over" from his falls. He states that all the previous falls were just mechanical falls but this is the first time he passed out. He has had some brief episodes of blindness, mostly in the right eye, that last 10-15 seconds. He does not have any weakness. He states that he sometimes has numbness in his hands or feet but usually just one hand and then one foot. Patient is now being worked up for syncope. Neurology is following and recommended carotid doppler studies. Cardiology is following and patient had an ECHO on 05/01 which showed mild LVH and normal EF. On 05/02, he had an implantable loop recorder placed. PMHx: DM, HTN, depression, pancreatitis secondary to etoh abuse Surgeries: pancreatic cyst drainage and Ex lap for drain removal 8 years ago, tonsillectomy, inguinal hernia repair as baby Allergies: none Social history: Etoh abuse, quit in 2007, smokes 3 PPD for 50 years, used to use multiple drugs including cocaine, LSD, marijuana, hash in the 70s until 1994 Review of Systems - Review of Systems All systems: reviewed and no additional remarkable complaints except (as per HPI ) Past Patient History - Infectious Disease Hx of Infectious Diseases: None - Past Medical History & Family History Past Medical History?: Yes - Past Social History Smoking Status: Heavy Smoker > 10 Cigarettes Daily Alcohol: None Drugs: Denies - CARDIAC Hx Hypertension: Yes - PULMONARY Hx Respiratory Disorders: No - NEUROLOGICAL Hx Neurological Disorder: Yes Hx Dizziness: Yes - HEENT Hx HEENT Problems: No - RENAL Hx Chronic Kidney Disease: No - ENDOCRINE/METABOLIC Hx Endocrine Disorders: Yes Hx Diabetes Mellitus Type 2: Yes - HEMATOLOGICAL/ONCOLOGICAL Hx Blood Disorders: No - INTEGUMENTARY Hx Dermatological Problems: No - MUSCULOSKELETAL/RHEUMATOLOGICAL Hx Falls: No - GASTROINTESTINAL Hx Pancreatitis: Yes - GENITOURINARY/GYNECOLOGICAL Hx Genitourinary Disorders: Yes Hx Prostate Problems: Yes - PSYCHIATRIC Hx Depression: Yes Hx Substance Use: No - SURGICAL HISTORY Other/Comment: cyst drainage - ANESTHESIA Hx Anesthesia: Yes Hx Anesthesia Reactions: No Hx Malignant Hyperthermia: No Meds Allergies/Adverse Reactions: Allergies Allergy/AdvReac Type Severity Reaction Status Date / Time No Known Allergies Allergy Verified 05/01/16 14:07 - Medications Medications: Current Medications Amlodipine Besylate (Norvasc) 10 mg PO DAILY [facility] Last Admin: 05/03/16 17:50 Dose: 10 mg Aspirin (Aspirin) 325 mg PO DAILY [facility] Last Admin: 05/03/16 10:56 Dose: 325 mg Folic Acid (Folic Acid) 1 mg PO DAILY [facility] Last Admin: 05/03/16 10:56 Dose: 1 mg Glipizide (Glucotrol) 10 mg PO ACBD [facility] Last Admin: 05/03/16 17:51 Dose: 10 mg Heparin Sodium (Porcine) (Heparin) 5,000 units SC Q8 [facility] Last Admin: 05/03/16 14:50 Dose: 5,000 units Sodium Chloride (Sodium Chloride 0.45%) 1,000 mls @ 75 mls/hr IV .[id number] [facility] Last Admin: 05/03/16 17:54 Dose: 75 mls/hr Insulin Human Regular (Novolin R) 0 unit SC ACHS [facility] PRN Reason: Protocol Last Admin: 05/03/16 16:28 Dose: Not Given Metoprolol Tartrate (Lopressor) 25 mg PO Q12 [facility] Multivitamins (Hexavitamin) 1 tab PO DAILY [facility] Last Admin: 05/03/16 10:56 Dose: 1 tab Nicotine (Nicoderm Cq) 1 patch TD DAILY [facility] Last Admin: 05/03/16 11:09 Dose: Not Given Rosuvastatin Calcium (Crestor) 5 mg PO HS [facility] Last Admin: 05/02/16 21:47 Dose: 5 mg Tamsulosin HCl (Flomax) 0.4 mg PO DAILY [facility] Last Admin: 05/03/16 10:56 Dose: 0.4 mg Thiamine HCl (Vitamin B1 Tab) 100 mg PO DAILY [facility] Last Admin: 05/03/16 10:56 Dose: 100 mg Physical Exam - Constitutional Appears: Non-toxic, No Acute Distress, Unkempt - Head Exam Head Exam: absent: NORMAL INSPECTION (abrasions and sutures on right eyebrow) - Eye Exam Eye Exam: absent: Normal appearance (Right eye with surrounding ecchymosis) - Respiratory Exam Respiratory Exam: NORMAL BREATHING PATTERN. absent: Respiratory Distress - Cardiovascular Exam Cardiovascular Exam: +S1, +S2 - GI/Abdominal Exam GI & Abdominal Exam: Soft. absent: Distended, Firm, Rebound, Rigid, Tenderness Additional comments: superior midline incision, well healed - Extremities Exam Additional comments: Strength equal bilaterally in upper and lower extremities Right wrist in splint, abrasions on fingers - Neurological Exam Neurological exam: Alert, Oriented x3 - Psychiatric Exam Psychiatric exam: Normal Affect, Normal Mood - Skin Skin Exam: Dry, Warm Results - Vital Signs Recent Vital Signs: Last Vital Signs Temp 97.8 F 05/03/16 15:40 Pulse 60 05/03/16 16:00 Resp 20 05/03/16 15:40 BP 144/76 05/03/16 15:40 Pulse Ox 96 05/03/16 15:40 - Labs Result Diagrams: 05/01/16 15:05 05/03/16 06:09 Labs: Laboratory Results - last 24 hr 05/02/16 05/03/16 05/03/16 21:40 06:09 06:25 Sodium 140 Potassium 4.6 Chloride 103 Carbon Dioxide 23 Anion Gap 18 BUN 23 H Creatinine 1.3 Est GFR ( Amer) > 60 Est GFR (Non-Af Amer) 55 POC Glucose (mg/dL) 191 H 142 H Random Glucose 146 H Calcium 7.9 L Total Bilirubin 0.3 AST 15 L ALT 20 L D Alkaline Phosphatase 72 Total Protein 5.9 L Albumin 3.3 L Globulin 2.6 Albumin/Globulin Ratio 1.3 Triglycerides 100 D Cholesterol 78 LDL Cholesterol Direct 37 HDL Cholesterol 26 L TSH 3rd Generation 1.55 Cortisol AM Sample 2.7 L 05/03/16 05/03/16 11:20 15:58 Sodium Potassium Chloride Carbon Dioxide Anion Gap BUN Creatinine Est GFR ( Amer) Est GFR (Non-Af Amer) POC Glucose (mg/dL) 206 H 243 H Random Glucose Calcium Total Bilirubin AST ALT Alkaline Phosphatase Total Protein Albumin Globulin Albumin/Globulin Ratio Triglycerides Cholesterol LDL Cholesterol Direct HDL Cholesterol TSH 3rd Generation Cortisol AM Sample Assessment & Plan - Assessment and Plan (Free Text) Assessment: 70yo M with PMHx of DM, HTN, pancreatitis secondary to etoh abuse presented with dizziness and syncope and vascular surgery is consulted for carotid artery disease - Afebrile, VSS - Carotid doppler was done on 05/01. Awaiting official read but appears to be under critical value of peak systolic velocity and end diastolic velocity - Will follow up official read for carotid stenosis - Discussed plan with Dr. Marua Mckeon PGY-2
--- NOTE | 2016-05-03 22:49 | PN ---
DATE: 05/03/2016 The patient was seen and examined at bedside. The patient is feeling much better. Denies any new co mplaints. On examination, elderly male lying in bed in no acute distress. Blood pressure 144/76, pulse 60, respirations 20, temperature 97.8 degrees Fahrenheit, O2 sats 96% on room air. HEENT: Pupils equal, round, reacting to light and accommodation. Extraocular muscles intact. No ic terus, no pallor. NECK: Supple. No JVD. LUNGS: Bilateral vesicular breath sounds. No wheezing, no rhonchi. CARDIOVASCULAR SYSTEM: S1, S2 present, regular. ABDOMEN: Soft, nontender. Bowel sounds present. No guarding, no rigidity, no rebound tenderness no pillo. CENTRAL NERVOUS SYSTEM: Alert, awake, oriented x 3. No focal deficits noted. EXTREMITIES: No edema. Palpable peripheral pulses. His medication include Norvasc 10 mg daily, aspirin 325 mg daily, folic acid 1 mg daily, glipizide 10 mg p.o. b.i.d., heparin 5000 units subQ q. 8 hours, metoprolol 25 mg p.o. q. 12 hours, multivitamin 1 tab daily, Nicoderm patch, Crestor 5 mg p.o. at bedtime, half NS 75 mL an hour, Flomax 0.4 mg daily , thiamine 100 mg p.o. daily. Carotid Doppler results pending. ASSESSMENT AND PLAN: Elderly male with history of hypertension, diabetes mellitus, alcohol abuse, hi story of pancreatitis status post pancreatic cyst surgery, admitted for multiple episodes of syncope in the past 6 months. The patient underwent loop recorder placement by Dr. Villatoro yesterday for p ossible cardiac catheterization Thursday. Follow up with carotid Doppler results. Called pharmacy regarding his medication list. As per [facility] listed in the chart, the pat ient has been on Creon 24,000 units 2 capsules t.i.d., Levemir 45 units daily, Norvasc 10 mg daily, F cheryl 0.4 mg daily, omeprazole 40 mg daily, metoprolol 100 mg p.o. b.i.d., Lipitor 20 mg daily, Cymba lta 30 mg daily. The patient was restarted on Norvasc 10 mg daily, and started on metoprolol 25 mg b .i.d., and the patient is on glipizide 10 b.i.d., on insulin sliding scale. His insulin was on hold. Will continue with other current medication. Will follow up with cardiology. Gene Perez MD cc: [phone] TT: 05/03/2016 22:49:07 Confirmation # [id number] Dictation # [id number]
--- NOTE | 2016-05-04 07:09 | CP.PCM.PN ---
Subjective - Date & Time of Evaluation Date of Evaluation: 05/04/16 Time of Evaluation: 07:50 - Subjective Subjective: Gen Surg Progress Note: Dr. Lorenzo Patient seen and examined this AM, in good spirits. Patient reports he has not had any episodes of dizziness. Denies n/v. AAOx3. Objective - Vital Signs/Intake and Output Vital Signs (last 24 hours): Temp Pulse Resp BP Pulse Ox 97.9 F 72 20 152/88 H 97 05/03/16 23:00 05/04/16 00:00 05/03/16 23:00 05/03/16 23:00 05/03/16 23:00 Intake and Output: 05/04/16 05/04/16 06:59 18:59 Intake Total Output Total Balance - Medications Medications: Current Medications Amlodipine Besylate (Norvasc) 10 mg PO DAILY [facility] Last Admin: 05/03/16 17:50 Dose: 10 mg Aspirin (Aspirin) 325 mg PO DAILY [facility] Last Admin: 05/03/16 10:56 Dose: 325 mg Folic Acid (Folic Acid) 1 mg PO DAILY [facility] Last Admin: 05/03/16 10:56 Dose: 1 mg Glipizide (Glucotrol) 10 mg PO ACBD [facility] Last Admin: 05/03/16 17:51 Dose: 10 mg Heparin Sodium (Porcine) (Heparin) 5,000 units SC Q8 [facility] Last Admin: 05/04/16 05:31 Dose: 5,000 units Insulin Human Regular (Novolin R) 0 unit SC ACHS [facility] PRN Reason: Protocol Last Admin: 05/03/16 21:15 Dose: Not Given Metoprolol Tartrate (Lopressor) 25 mg PO Q12 [facility] Last Admin: 05/03/16 22:05 Dose: 25 mg Multivitamins (Hexavitamin) 1 tab PO DAILY [facility] Last Admin: 05/03/16 10:56 Dose: 1 tab Nicotine (Nicoderm Cq) 1 patch TD DAILY [facility] Last Admin: 05/03/16 11:09 Dose: Not Given Rosuvastatin Calcium (Crestor) 5 mg PO HS [facility] Last Admin: 05/03/16 22:05 Dose: 5 mg Tamsulosin HCl (Flomax) 0.4 mg PO DAILY [facility] Last Admin: 05/03/16 10:56 Dose: 0.4 mg Thiamine HCl (Vitamin B1 Tab) 100 mg PO DAILY [facility] Last Admin: 05/03/16 10:56 Dose: 100 mg - Labs Labs: 05/03/16 06:09 PT 11.5 SECONDS (9.7-12.2) 05/01/16 15:05 INR 1.0 05/01/16 15:05 APTT 32 SECONDS (21-34) 05/02/16 00:13 - Constitutional Appears: No Acute Distress - Head Exam Additional comments: Multipler area of ecchymosis 2/2 fall - ENT Exam ENT Exam: Mucous Membranes Moist - Respiratory Exam Respiratory Exam: NORMAL BREATHING PATTERN - Cardiovascular Exam Cardiovascular Exam: +S1, +S2 - GI/Abdominal Exam GI & Abdominal Exam: Soft - Neurological Exam Neurological Exam: Alert, Awake, Oriented x3 - Psychiatric Exam Psychiatric exam: Normal Mood - Skin Skin Exam: Dry, Intact Assessment and Plan - Assessment and Plan (Free Text) Assessment: 70yo M with PMHx of DM, HTN, pancreatitis secondary to etoh abuse presented with dizziness and syncope - Afebrile, VSS - Carotid doppler was done on 05/01. Will f/u official read. Velocities appear to be under critical value of peak systolic velocity and end diastolic velocity - Will follow up official read for carotid stenosis - Further recs per Dr. Lorenzo
[2016-05-04] MEDS: (Novolin R) Insulin Human Regular 100 units/ml vial SC SCH ×4 (07:46→21:04)
[2016-05-04] MEDS: Multiple Vitamins Tab PO SCH (09:18)
--- NOTE | 2016-05-04 11:56 | CP.PCM.PN ---
Subjective - Date & Time of Evaluation Date of Evaluation: 05/04/16 Time of Evaluation: 11:50 - Subjective Subjective: Progress note dictated #[id number] Objective - Vital Signs/Intake and Output Vital Signs (last 24 hours): Temp Pulse Resp BP Pulse Ox 97.4 F L 69 18 148/85 95 05/04/16 07:55 05/04/16 08:00 05/04/16 07:55 05/04/16 09:18 05/04/16 07:55 Intake and Output: 05/04/16 05/04/16 06:59 18:59 Intake Total Output Total Balance - Medications Medications: Current Medications Amlodipine Besylate (Norvasc) 10 mg PO DAILY [facility] Last Admin: 05/04/16 09:17 Dose: 10 mg Aspirin (Aspirin) 325 mg PO DAILY [facility] Last Admin: 05/04/16 09:18 Dose: 325 mg Folic Acid (Folic Acid) 1 mg PO DAILY [facility] Last Admin: 05/04/16 09:18 Dose: 1 mg Glipizide (Glucotrol) 10 mg PO ACBD [facility] Last Admin: 05/04/16 07:45 Dose: 10 mg Heparin Sodium (Porcine) (Heparin) 5,000 units SC Q8 [facility] Last Admin: 05/04/16 05:31 Dose: 5,000 units Insulin Detemir (Levemir) 12 unit SC HS [facility] Insulin Human Regular (Novolin R) 0 unit SC [facility] PRN Reason: Protocol Last Admin: 05/04/16 07:46 Dose: Not Given Metoprolol Tartrate (Lopressor) 25 mg PO Q12 [facility] Last Admin: 05/04/16 09:18 Dose: 25 mg Multivitamins (Hexavitamin) 1 tab PO DAILY [facility] Last Admin: 05/04/16 09:18 Dose: 1 tab Nicotine (Nicoderm Cq) 1 patch TD DAILY [facility] Last Admin: 05/04/16 09:17 Dose: Not Given Rosuvastatin Calcium (Crestor) 5 mg PO HS [facility] Last Admin: 05/03/16 22:05 Dose: 5 mg Tamsulosin HCl (Flomax) 0.4 mg PO DAILY [facility] Last Admin: 05/04/16 09:18 Dose: 0.4 mg Thiamine HCl (Vitamin B1 Tab) 100 mg PO DAILY [facility] Last Admin: 05/04/16 09:17 Dose: 100 mg - Labs Labs: 05/03/16 06:09 PT 11.5 SECONDS (9.7-12.2) 05/01/16 15:05 INR 1.0 05/01/16 15:05 APTT 32 SECONDS (21-34) 05/02/16 00:13
--- NOTE | 2016-05-04 13:17 | PN ---
DATE: 05/04/2016 ENDO FOLLOWUP NOTE ROOM: 661. This is a 70-year-old male with recent uncontrolled type 2 insulin-requiring diabetes, presenting her e with syncopal and near syncopal episodes with associated symptomatic hypoglycemia and is now being followed closely for metabolic management. His oral intake is much improved at this time with superv ening hyperglycemic accelerations as noted and expected. His glucose values have ranged from 190-243 and 314 mg/dL. His latest chemistries include a BUN of 2 3, sodium 140, potassium 4.6, chloride 103, CO2 of 23, glucose 146, and creatinine 1.3. His TSH is 1 .55 with a cortisol level of 2.7 and a very low albumin level of 3.3. So at this time, we will modify his current diabetic regimen and start him back on a low dose of basa l insulin with Levemir to be given as 12 units subQ at bedtime daily to start tonight. He was on a m uch higher dose of Levemir at home, taking between 30 and 40 units at bedtime as noted. We will also continue the glipizide given as 10 mg b.i.d. before meals as ordered. We will consider the addition of prandial insulin if mealtime glucose accelerations persist thereof. We will continue the low-dos e correction scale using NovoLog insulin as given. We will titrate incrementally as indicated to opt imize metabolic control. We will follow and advise accordingly. Ragini Redding MD cc: [id number] TT: 05/04/2016 13:17:02 Confirmation # [id number] Dictation # [id number]
--- NOTE | 2016-05-04 14:09 | CP.PCM.PN ---
Subjective - Date & Time of Evaluation Date of Evaluation: 05/04/16 Time of Evaluation: 14:08 - Subjective Subjective: lica shows significant stenosis ct angio ordered Objective - Vital Signs/Intake and Output Vital Signs (last 24 hours): Temp Pulse Resp BP Pulse Ox 97.4 F L 69 18 148/85 95 05/04/16 07:55 05/04/16 08:00 05/04/16 07:55 05/04/16 09:18 05/04/16 07:55 Intake and Output: 05/04/16 05/04/16 06:59 18:59 Intake Total Output Total Balance - Medications Medications: Current Medications Amlodipine Besylate (Norvasc) 10 mg PO DAILY [facility] Last Admin: 05/04/16 09:17 Dose: 10 mg Aspirin (Aspirin) 325 mg PO DAILY [facility] Last Admin: 05/04/16 09:18 Dose: 325 mg Folic Acid (Folic Acid) 1 mg PO DAILY [facility] Last Admin: 05/04/16 09:18 Dose: 1 mg Glipizide (Glucotrol) 10 mg PO ACBD [facility] Last Admin: 05/04/16 07:45 Dose: 10 mg Heparin Sodium (Porcine) (Heparin) 5,000 units SC Q8 [facility] Last Admin: 05/04/16 13:40 Dose: 5,000 units Insulin Detemir (Levemir) 12 unit SC HS [facility] Insulin Human Regular (Novolin R) 0 unit SC ACHS [facility] PRN Reason: Protocol Last Admin: 05/04/16 12:30 Dose: 1 unit Metoprolol Tartrate (Lopressor) 25 mg PO Q12 [facility] Last Admin: 05/04/16 09:18 Dose: 25 mg Multivitamins (Hexavitamin) 1 tab PO DAILY [facility] Last Admin: 05/04/16 09:18 Dose: 1 tab Nicotine (Nicoderm Cq) 1 patch TD DAILY [facility] Last Admin: 05/04/16 09:17 Dose: Not Given Rosuvastatin Calcium (Crestor) 5 mg PO HS [facility] Last Admin: 05/03/16 22:05 Dose: 5 mg Tamsulosin HCl (Flomax) 0.4 mg PO DAILY [facility] Last Admin: 05/04/16 09:18 Dose: 0.4 mg Thiamine HCl (Vitamin B1 Tab) 100 mg PO DAILY [facility] Last Admin: 05/04/16 09:17 Dose: 100 mg - Labs Labs: 05/03/16 06:09 PT 11.5 SECONDS (9.7-12.2) 05/01/16 15:05 INR 1.0 05/01/16 15:05 APTT 32 SECONDS (21-34) 05/02/16 00:13
--- NOTE | 2016-05-04 16:04 | PN ---
DATE: 05/04/2016 TIME OF EVALUATION: 12:45 p.m. NEUROLOGICAL PROBLEM: Syncopal attack. PHYSICAL EXAMINATION: VITAL SIGNS: Blood pressure 148/85, mean arterial pressure of 106, respiratory rate is 16, temperature afebrile, pulse rate 69 and regular. NEUROLOGIC: The patient is more awake, alert, oriented to person, place, and time. Speech is clear. Naming, repetition, fluency, comprehension all within normal. The patient is ambulatory, walking back and forth without any assistance. The examination is unchanged to compare with previous examination. WORKUP: MRI of the brain is reviewed shows atrophy with periventricular increased T2 signal, C/W chronic small vessel disease. The official carotid Doppler is still pending. The patient was seen by Dr. Lorenzo for significant carotid artery disease. The patient can continue the present management. The patient will be followed closely with you. Jaya Koch MD cc: [id number] TT: 05/04/2016 16:03:43 Confirmation # [id number] Dictation # [id number] robert SANTO
--- NOTE | 2016-05-04 20:40 | PN ---
DATE: 05/04/2016 The patient was seen and examined at bedside. The patient offers no new complaints, feeling much bet ter. PHYSICAL EXAMINATION: GENERAL: An elderly male lying in bed in no acute distress. VITAL SIGNS: Blood pressure 136/68, pulse 63, respiration 20, temperature 97.7 degrees Fahrenheit, O 2 sats 98% on room air. HEENT: Pupils equal, round, reacting to light and accommodation. Extraocular muscles intact. Right eyelid ecchymoses present. No oral thrush. No pharyngeal congestion. NECK: Supple. No JVD. LUNGS: Bilateral vesicular breath sounds. No wheezing, no rhonchi. CARDIOVASCULAR: S1, S2 present, regular. ABDOMEN: Soft, nontender. Bowel sounds present. No guarding, no rigidity, no rebound tenderness no pillo. CENTRAL NERVOUS SYSTEM: Alert, awake, oriented x 3. No focal deficits noted. EXTREMITIES: No edema. Palpable peripheral pulses. MEDICATIONS: Include amlodipine 10 mg daily, aspirin 325 mg p.o. daily, folic acid 1 mg daily, glipi zide 10 mg b.i.d., subcutaneous heparin 5000 units q.8 hours, Levemir 12 units at bedtime, metoprolol 25 mg p.o. q.12 hours, multivitamin, nicotine patch, Crestor 5 mg p.o. at bedtime, Flomax 0.4 mg cindy ly, thiamine 100 mg p.o. daily. LABORATORY DATA: His glucoses: 243, 314, 190, 251, 163. Currently, the ultrasound results, prelimi nary, is left moderate stenosis; the official result is still pending. Echo shows mild concentric LV H, normal LV systolic function and Doppler of pericardium appears normal, no pleural effusion. ASSESSMENT AND PLAN: An elderly male with a history of hypertension, hyperlipidemia, diabetes mellit us, depression, admitted for multiple syncopal episodes, underwent a tilt table test and loop recorde r was placed by cardiology for possible cardiac catheterization in a.m. Vascular surgery evaluated f or left carotid moderate stenosis; official results pending. His blood pressure is stable with curre nt medication. I will follow up with the official carotid ultrasound results and vascular surgery wi th plan based on the results. Followup with cardiology. Gene Perez MD cc: [id number] TT: 05/04/2016 20:39:53 Confirmation # [id number] Dictation # [id number]
--- NOTE | 2016-05-04 21:14 | EEG ---
DATE: 05/02/2016 This is a 16-channel electroencephalogram of awake and drowsy adult. During the study, photic stimul ation was performed. Hyperventilation was not performed. The resting electroencephalogram consisted of 20-30 microvolt diffuse 9-11 Hz alpha activity seen at parietal and occipital leads. Anteriorly fast activity superimposed with 2-3 Hz delta activity seen in the frontal and the central leads. The photic stimulation did not evoke driving response noted at 2-20 Hz. IMPRESSION: This is a normal electroencephalogram of awake and a drowsy adult. During the study, ne ither electroencephalographic paroxysmal activities nor focal slowing noted. Jaya Koch MD cc: [id number] TT: 05/04/2016 21:13:16 Confirmation # [id number] Dictation # [id number]
--- NOTE | 2016-05-04 21:51 | CP.PCM.PN ---
Subjective - Date & Time of Evaluation Date of Evaluation: 05/04/16 Time of Evaluation: 16:05 - Subjective Subjective: Patient seen and evaluated Being evaluated by Dr. Lorenzo for Carotid artery disease Recommend Cardiac Cath prior to CEA Objective - Vital Signs/Intake and Output Vital Signs (last 24 hours): Temp Pulse Resp BP Pulse Ox 97.7 F 65 20 120/71 98 05/04/16 15:56 05/04/16 21:46 05/04/16 15:56 05/04/16 21:46 05/04/16 15:56 Intake and Output: 05/04/16 05/05/16 18:59 06:59 Intake Total 700 100 Balance 700 100 - Medications Medications: Current Medications Amlodipine Besylate (Norvasc) 10 mg PO DAILY [facility] Last Admin: 05/04/16 09:17 Dose: 10 mg Aspirin (Aspirin) 325 mg PO DAILY [facility] Last Admin: 05/04/16 09:18 Dose: 325 mg Folic Acid (Folic Acid) 1 mg PO DAILY [facility] Last Admin: 05/04/16 09:18 Dose: 1 mg Glipizide (Glucotrol) 10 mg PO ACBD [facility] Last Admin: 05/04/16 16:25 Dose: 10 mg Heparin Sodium (Porcine) (Heparin) 5,000 units SC Q8 [facility] Last Admin: 05/04/16 21:44 Dose: 5,000 units Insulin Detemir (Levemir) 12 unit SC HS [facility] Last Admin: 05/04/16 21:43 Dose: 12 unit Insulin Human Regular (Novolin R) 0 unit SC ACHS [facility] PRN Reason: Protocol Last Admin: 05/04/16 21:04 Dose: Not Given Metoprolol Tartrate (Lopressor) 25 mg PO Q12 [facility] Last Admin: 05/04/16 21:41 Dose: 25 mg Multivitamins (Hexavitamin) 1 tab PO DAILY [facility] Last Admin: 05/04/16 09:18 Dose: 1 tab Nicotine (Nicoderm Cq) 1 patch TD DAILY [facility] Last Admin: 05/04/16 09:17 Dose: Not Given Rosuvastatin Calcium (Crestor) 5 mg PO HS [facility] Last Admin: 05/04/16 21:42 Dose: 5 mg Tamsulosin HCl (Flomax) 0.4 mg PO DAILY [facility] Last Admin: 05/04/16 09:18 Dose: 0.4 mg Thiamine HCl (Vitamin B1 Tab) 100 mg PO DAILY [facility] Last Admin: 05/04/16 09:17 Dose: 100 mg - Labs Labs: 05/03/16 06:09 PT 11.5 SECONDS (9.7-12.2) 05/01/16 15:05 INR 1.0 05/01/16 15:05 APTT 32 SECONDS (21-34) 05/02/16 00:13
[2016-05-04] MEDS ORDERED: Insulin Detemir 100 units/ml Vial (Levemir) SC SCH (22:00)
--- NOTE | 2016-05-05 07:36 | CP.PCM.PN ---
Subjective - Date & Time of Evaluation Date of Evaluation: 05/05/16 Time of Evaluation: 06:45 - Subjective Subjective: Vascular Surgery Pt S&E, NAEO. No complaints at this time, no further syncopal events. Objective - Vital Signs/Intake and Output Vital Signs (last 24 hours): Temp Pulse Resp BP Pulse Ox 98.0 F 65 20 143/87 97 05/04/16 23:00 05/05/16 00:00 05/04/16 23:00 05/04/16 23:00 05/04/16 23:00 Intake and Output: 05/05/16 05/05/16 06:59 18:59 Intake Total 100 Balance 100 - Medications Medications: Current Medications Amlodipine Besylate (Norvasc) 10 mg PO DAILY [facility] Last Admin: 05/04/16 09:17 Dose: 10 mg Aspirin (Aspirin) 325 mg PO DAILY [facility] Last Admin: 05/04/16 09:18 Dose: 325 mg Folic Acid (Folic Acid) 1 mg PO DAILY [facility] Last Admin: 05/04/16 09:18 Dose: 1 mg Glipizide (Glucotrol) 10 mg PO ACBD [facility] Last Admin: 05/04/16 16:25 Dose: 10 mg Insulin Detemir (Levemir) 12 unit SC HS [facility] Last Admin: 05/04/16 21:43 Dose: 12 unit Insulin Human Regular (Novolin R) 0 unit SC [facility] PRN Reason: Protocol Last Admin: 05/04/16 21:04 Dose: Not Given Metoprolol Tartrate (Lopressor) 25 mg PO Q12 [facility] Last Admin: 05/04/16 21:41 Dose: 25 mg Multivitamins (Hexavitamin) 1 tab PO DAILY [facility] Last Admin: 05/04/16 09:18 Dose: 1 tab Nicotine (Nicoderm Cq) 1 patch TD DAILY [facility] Last Admin: 05/04/16 09:17 Dose: Not Given Rosuvastatin Calcium (Crestor) 5 mg PO HS [facility] Last Admin: 05/04/16 21:42 Dose: 5 mg Tamsulosin HCl (Flomax) 0.4 mg PO DAILY [facility] Last Admin: 05/04/16 09:18 Dose: 0.4 mg Thiamine HCl (Vitamin B1 Tab) 100 mg PO DAILY [facility] Last Admin: 05/04/16 09:17 Dose: 100 mg - Labs Labs: 05/03/16 06:09 PT 11.5 SECONDS (9.7-12.2) 05/01/16 15:05 INR 1.0 05/01/16 15:05 APTT 32 SECONDS (21-34) 05/02/16 00:13 - Constitutional Appears: Non-toxic, No Acute Distress - Head Exam Head Exam: ATRAUMATIC, NORMOCEPHALIC - Eye Exam Eye Exam: EOMI. absent: Scleral icterus Additional comments: ecchymosis around R eye - Respiratory Exam Respiratory Exam: NORMAL BREATHING PATTERN. absent: Respiratory Distress - GI/Abdominal Exam GI & Abdominal Exam: Soft. absent: Distended, Tenderness - Neurological Exam Neurological Exam: Alert, Awake, Oriented x3 - Skin Skin Exam: Dry, Warm Assessment and Plan - Assessment and Plan (Free Text) Assessment: 70M with L ICA stenosis found after a syncopal episode Plan: F/U CT angio Monitor for further syncopal episodes On fall precautions Will D/W Dr. Maura Monterroso PGY3
--- NOTE | 2016-05-05 08:23 | PN ---
DATE: 05/03/2016 ROOM 661 This is a 70-year-old male with symptomatic hypoglycemia on the background of insulin-requiring diabe pedro at home, with extremes of glycemic fluctuations, presenting here with altered mental status and f requent syncopal and near-syncopal episodes, and traumatic head injuries thereof, with recent facial injuries of contusions as noted from the syncopal episodes. He is being followed closely now for met abolic management thereof. His latest glucose values have ranged from 143-306 mg/dL. The latest chemistry showed a BUN of 23, sodium 140, potassium 4.6, chloride 103, CO2 of 23, glucose 146, and creatinine 1. . So at this time, will actually hold off the reinitiation of the basal insulin therapy for now to prev ent further hypoglycemic episodes. We will increase the glipizide to 10 mg p.o. b.i.d. to start at d inner time today as ordered. Will also continue the patient on Januvia if hyperglycemic levels super vene at this time, and try to hold off any initiation of insulin therapy for now. Will obtain serial chemistries and supplement accordingly as needed. Will follow with you. Ragini Redding MD cc: [id number] TT: 05/03/2016 15:22:46 Confirmation # [id number] Dictation # [id number]
[2016-05-05] MEDS: (Novolin R) Insulin Human Regular 100 units/ml vial SC SCH ×4 (08:30→22:55)
--- NOTE | 2016-05-05 08:44 | CP.PCM.PN ---
<Oscar Baez - Last Filed: 05/05/16 15:08> Subjective - Date & Time of Evaluation Date of Evaluation: 05/05/16 Time of Evaluation: 09:10 - Subjective Subjective: Cardiology Note- Dr. Villatoro' service Patient was seen and examined at bedside. Patient reports no acute complaints at this time. No events overnight, per nursing. Objective - Vital Signs/Intake and Output Vital Signs (last 24 hours): Temp Pulse Resp BP Pulse Ox 98.0 F 65 20 143/87 97 05/04/16 23:00 05/05/16 00:00 05/04/16 23:00 05/04/16 23:00 05/04/16 23:00 Intake and Output: 05/05/16 05/05/16 06:59 18:59 Intake Total 100 Balance 100 - Medications Medications: Current Medications Amlodipine Besylate (Norvasc) 10 mg PO DAILY [facility] Last Admin: 05/04/16 09:17 Dose: 10 mg Aspirin (Aspirin) 325 mg PO DAILY [facility] Last Admin: 05/04/16 09:18 Dose: 325 mg Folic Acid (Folic Acid) 1 mg PO DAILY [facility] Last Admin: 05/04/16 09:18 Dose: 1 mg Glipizide (Glucotrol) 10 mg PO ACBD [facility] Last Admin: 05/04/16 16:25 Dose: 10 mg Insulin Detemir (Levemir) 12 unit SC HS [facility] Last Admin: 05/04/16 21:43 Dose: 12 unit Insulin Human Regular (Novolin R) 0 unit SC [facility] PRN Reason: Protocol Last Admin: 05/04/16 21:04 Dose: Not Given Metoprolol Tartrate (Lopressor) 25 mg PO Q12 [facility] Last Admin: 05/04/16 21:41 Dose: 25 mg Multivitamins (Hexavitamin) 1 tab PO DAILY [facility] Last Admin: 05/04/16 09:18 Dose: 1 tab Nicotine (Nicoderm Cq) 1 patch TD DAILY [facility] Last Admin: 05/04/16 09:17 Dose: Not Given Rosuvastatin Calcium (Crestor) 5 mg PO HS [facility] Last Admin: 05/04/16 21:42 Dose: 5 mg Tamsulosin HCl (Flomax) 0.4 mg PO DAILY [facility] Last Admin: 05/04/16 09:18 Dose: 0.4 mg Thiamine HCl (Vitamin B1 Tab) 100 mg PO DAILY [facility] Last Admin: 05/04/16 09:17 Dose: 100 mg - Labs Labs: 05/03/16 06:09 PT 11.5 SECONDS (9.7-12.2) 05/01/16 15:05 INR 1.0 05/01/16 15:05 APTT 32 SECONDS (21-34) 05/02/16 00:13 - Constitutional Appears: Non-toxic, No Acute Distress - Head Exam Head Exam: ATRAUMATIC, NORMAL INSPECTION, NORMOCEPHALIC - Eye Exam Pupil Exam: NORMAL ACCOMODATION - ENT Exam ENT Exam: Mucous Membranes Moist - Respiratory Exam Respiratory Exam: Clear to Ausculation Bilateral, NORMAL BREATHING PATTERN. absent: Prolonged Expiratory Phase, Rales, Rhonchi, Wheezes - Cardiovascular Exam Cardiovascular Exam: +S1, +S2, Murmur - GI/Abdominal Exam GI & Abdominal Exam: Soft, Normal Bowel Sounds. absent: Tenderness, Diminished Bowel Sounds, Hypoactive Bowel Sounds - Neurological Exam Neurological Exam: Alert, Awake, Oriented x3 - Psychiatric Exam Psychiatric exam: Normal Affect, Normal Mood - Skin Skin Exam: Dry, Intact, Normal Color, Warm Assessment and Plan - Assessment and Plan (Free Text) Assessment: 70 M with pmh of pancreatic cyst, HTN, DM, Depression, and ETOH abuse presents with syncope. - Implantable loop recorder placed on 05/02 - Echo- 05/01/16- There is mild concentric LVH. Normal LV systolic function and Doppler - Recommended cardiac cath before carotid endarterectomy per Dr. Elliott - EKG 05/02/16- Sinus rhythm with PVC, Left anterior fascicular block - F/u neurology recs - Continue Aspirin and Statins - MRI and Head CT showed No acute intracranial abnormality - Cervical spine CT - no fractures - Gi/ DVT ppx Thank you for the consult. Will follow closely. Case & plan was reviewed and discussed in detail with Dr Villatoro. <Lizette Villatoro - Last Filed: 05/07/16 10:22> Objective - Vital Signs/Intake and Output Vital Signs (last 24 hours): Temp Pulse Resp BP Pulse Ox 97.6 F 68 20 151/81 H 97 05/05/16 23:05 05/05/16 23:43 05/05/16 23:05 05/05/16 23:05 05/05/16 23:05 - Labs Labs: 05/03/16 06:09 PT 11.5 SECONDS (9.7-12.2) 05/01/16 15:05 INR 1.0 05/01/16 15:05 APTT 32 SECONDS (21-34) 05/02/16 00:13 Assessment and Plan (1) Distal radius fracture, right Status: Acute (2) Syncope Status: Acute Attending/Attestation - Attestation I have personally seen and examined this patient.: Yes I have fully participated in the care of the patient.: Yes I have reviewed all pertinent clinical information, including history, physical exam and plan: Yes Notes (Text): 05/07/16 10:21 Pt no events overnight bp stable
[2016-05-05] MEDS ORDERED: Iodixanol 320 MG/ML 100 ML BOTTLE IV ONE (08:59)
[2016-05-05] MEDS: Multiple Vitamins Tab PO SCH ×2 (10:00→11:00)
--- NOTE | 2016-05-05 11:31 | CP.PCM.PN ---
Subjective - Date & Time of Evaluation Date of Evaluation: 05/04/16 Time of Evaluation: 08:08 - Subjective Subjective: pt no cp sob tolerating po Objective - Vital Signs/Intake and Output Vital Signs (last 24 hours): Temp Pulse Resp BP Pulse Ox 97 F L 65 18 116/72 96 05/05/16 07:05 05/05/16 08:00 05/05/16 07:05 05/05/16 10:28 05/05/16 07:05 Intake and Output: 05/05/16 05/05/16 06:59 18:59 Intake Total 100 Balance 100 - Medications Medications: Current Medications Amlodipine Besylate (Norvasc) 10 mg PO DAILY [facility] Last Admin: 05/05/16 10:28 Dose: 10 mg Aspirin (Aspirin) 325 mg PO DAILY [facility] Last Admin: 05/05/16 10:28 Dose: 325 mg Folic Acid (Folic Acid) 1 mg PO DAILY [facility] Last Admin: 05/04/16 09:18 Dose: 1 mg Glipizide (Glucotrol) 10 mg PO ACBD [facility] Last Admin: 05/05/16 08:30 Dose: Not Given Insulin Detemir (Levemir) 12 unit SC HS [facility] Last Admin: 05/04/16 21:43 Dose: 12 unit Insulin Human Regular (Novolin R) 0 unit SC [facility] PRN Reason: Protocol Last Admin: 05/05/16 08:30 Dose: Not Given Metoprolol Tartrate (Lopressor) 25 mg PO Q12 [facility] Last Admin: 05/05/16 10:28 Dose: 25 mg Multivitamins (Hexavitamin) 1 tab PO DAILY [facility] Last Admin: 05/04/16 09:18 Dose: 1 tab Nicotine (Nicoderm Cq) 1 patch TD DAILY [facility] Last Admin: 05/04/16 09:17 Dose: Not Given Rosuvastatin Calcium (Crestor) 5 mg PO HS [facility] Last Admin: 05/04/16 21:42 Dose: 5 mg Tamsulosin HCl (Flomax) 0.4 mg PO DAILY [facility] Last Admin: 05/04/16 09:18 Dose: 0.4 mg Thiamine HCl (Vitamin B1 Tab) 100 mg PO DAILY [facility] Last Admin: 05/04/16 09:17 Dose: 100 mg - Labs Labs: 05/03/16 06:09 PT 11.5 SECONDS (9.7-12.2) 05/01/16 15:05 INR 1.0 05/01/16 15:05 APTT 32 SECONDS (21-34) 05/02/16 00:13 - Constitutional Appears: Well - Head Exam Head Exam: NORMOCEPHALIC Additional comments: echymosis r eye - Eye Exam Eye Exam: Periorbital swelling - ENT Exam ENT Exam: Mucous Membranes Moist - Respiratory Exam Respiratory Exam: Clear to Ausculation Bilateral, NORMAL BREATHING PATTERN - Cardiovascular Exam Cardiovascular Exam: REGULAR RHYTHM - GI/Abdominal Exam GI & Abdominal Exam: Normal Bowel Sounds - Exam External exam: Ecchymosis - Extremities Exam Extremities Exam: Normal Inspection - Neurological Exam Neurological Exam: Alert, Awake, Oriented x3 - Psychiatric Exam Psychiatric exam: Normal Affect, Normal Mood - Skin Skin Exam: Dry, Erythema, Warm Assessment and Plan (1) Distal radius fracture, right Assessment & Plan: Pt no svt PVCs may need cardiac catheterization Status: Acute (2) Syncope Status: Acute
--- NOTE | 2016-05-05 11:41 | CT ---
PROCEDURE: CT Angiography of the neck with contrast HISTORY: Left internal carotid artery stenosis COMPARISON: Duplex Doppler examination from 05/02/2016 TECHNIQUE: Contiguous axial images of the neck were obtained from the level of the skull-base to the superior mediastinum in the arteriographic phase of enhancement. Coronal and sagittal reformats or also generated. IV contrast dose: 100 mL Visipaque Radiation Dose - DLP: 450.51 mGy-cm FINDINGS: There is a 4 vessel aortic arch with the left vertebral artery origin 18 from the aortic arch between the left common carotid and left subclavian arteries. RIGHT CAROTID ARTERIES: Common Carotid Artery: Normal. Carotid Bifurcation: Normal. Internal Carotid Artery:There are moderate calcified atherosclerotic plaques without hemodynamically significant stenosis. External Carotid Artery (proximal branches): Normal. LEFT CAROTID ARTERIES: Common Carotid Artery: Normal. Carotid Bifurcation: There are severe calcified atherosclerotic plaques with approximately 72% hemodynamically significant stenosis. Internal Carotid Artery:Normal. External Carotid Artery (proximal branches): Normal. VERTEBRAL ARTERIES: Right Vertebral Artery: Normal. Left Vertebral Artery: Normal. The left vertebral artery is dominant. OTHER FINDINGS: None. IMPRESSION: 1. Severe calcified atherosclerotic plaques in the left proximal internal carotid artery with hemodynamically significant stenosis. No evidence of poststenotic dilatation. 2. Moderate calcified atherosclerotic plaques in the right proximal internal carotid artery without evidence of hemodynamically significant stenosis. 3. Patent bilateral vertebral arteries. The left vertebral artery is dominant.
--- NOTE | 2016-05-05 12:10 | CP.PCM.PN ---
Subjective - Date & Time of Evaluation Date of Evaluation: 05/05/16 Time of Evaluation: 12:00 - Subjective Subjective: Progress note dictated # [id number] Objective - Vital Signs/Intake and Output Vital Signs (last 24 hours): Temp Pulse Resp BP Pulse Ox 97 F L 65 18 116/72 96 05/05/16 07:05 05/05/16 08:00 05/05/16 07:05 05/05/16 10:28 05/05/16 07:05 Intake and Output: 05/05/16 05/05/16 06:59 18:59 Intake Total 100 Balance 100 - Medications Medications: Current Medications Amlodipine Besylate (Norvasc) 10 mg PO DAILY [facility] Last Admin: 05/05/16 10:28 Dose: 10 mg Aspirin (Aspirin) 325 mg PO DAILY [facility] Last Admin: 05/05/16 10:28 Dose: 325 mg Folic Acid (Folic Acid) 1 mg PO DAILY [facility] Last Admin: 05/05/16 10:00 Dose: Not Given Glipizide (Glucotrol) 10 mg PO ACBD [facility] Last Admin: 05/05/16 08:30 Dose: Not Given Insulin Detemir (Levemir) 12 unit SC HS [facility] Last Admin: 05/04/16 21:43 Dose: 12 unit Insulin Human Regular (Novolin R) 0 unit SC [facility] PRN Reason: Protocol Last Admin: 05/05/16 11:57 Dose: Not Given Metoprolol Tartrate (Lopressor) 25 mg PO Q12 [facility] Last Admin: 05/05/16 10:28 Dose: 25 mg Multivitamins (Hexavitamin) 1 tab PO DAILY [facility] Last Admin: 05/05/16 10:00 Dose: Not Given Nicotine (Nicoderm Cq) 1 patch TD DAILY [facility] Last Admin: 05/05/16 10:00 Dose: Not Given Rosuvastatin Calcium (Crestor) 5 mg PO HS [facility] Last Admin: 05/04/16 21:42 Dose: 5 mg Tamsulosin HCl (Flomax) 0.4 mg PO DAILY [facility] Last Admin: 05/05/16 10:00 Dose: Not Given Thiamine HCl (Vitamin B1 Tab) 100 mg PO DAILY [facility] Last Admin: 05/05/16 10:00 Dose: Not Given - Labs Labs: 05/03/16 06:09 PT 11.5 SECONDS (9.7-12.2) 05/01/16 15:05 INR 1.0 05/01/16 15:05 APTT 32 SECONDS (21-34) 05/02/16 00:13
[2016-05-05] MEDS ORDERED: Acetylcysteine 20% Inhal Soln (4ml) PO SCH (12:15)
[2016-05-05] MEDS ORDERED: Sodium Chloride 0.45% 1,000 ML IV SCH (12:15)
--- NOTE | 2016-05-05 14:52 | VASCLAB ---
PROCEDURE: HISTORY: syncope COMPARISON: None available. TECHNIQUE: Grayscale and duplex Doppler evaluation of the cervical carotid and vertebral arteries were performed. The common carotid, carotid bifurcations and cervical Internal Carotid Artery (ICA) and proximal External Carotid Artery (ECA) were evaluated. The vertebral arteries were evaluated for gross patency and flow direction. Report prepared by Raymond Jay, BS, RVT FINDINGS: RIGHT CAROTID ARTERIES: 1. Common Carotid Artery: No significant focal plaque formation of the right common carotid artery. Maximum Peak Systolic velocity: 84 cm/sec: End-diastolic velocity 20 cm/sec. 2. Carotid Bifurcation: Calcific plaque formation. Maximum Peak Systolic velocity: 67 cm/sec: End-diastolic velocity 9 cm/sec. 3. Internal Carotid Artery: Moderate plaque formation of the right proximal ICA which does not results in hemodynamically significant stenosis. Plaque description: 3.1. Proximal Segment: Peak systolic velocity 117 cm/sec: End-diastolic velocity 21 cm/sec - % stenosis 0-15% 3.2. Middle Segment: Peak systolic velocity 111 cm/sec: End-diastolic velocity 38 cm/sec - % stenosis 0-15% 3.3. Distal Segment: Peak systolic velocity 112 cm/sec: End-diastolic velocity 18 cm/sec - % stenosis 0-15% 4. External Carotid Artery: No significant focal plaque formation. Peak systolic velocity 130 cm/sec 5. ICA/CCA Ratio: 1.4 LEFT CAROTID ARTERIES: 1. Common Carotid Artery: No significant focal plaque formation of the left common carotid artery. Maximum Peak Systolic velocity: 109 cm/sec: End-diastolic velocity 13 cm/sec. 2. Carotid Bifurcation: Calcific plaque formation. Maximum Peak Systolic velocity: 126 cm/sec: End-diastolic velocity 9 cm/sec. 3. Internal Carotid Artery: Severe plaque formation of the left proximal ICA which results in a hemodynamically significant stenosis. Plaque description: Calcific 3.1. Proximal Segment: Peak systolic velocity 284 cm/sec: End-diastolic velocity 57 cm/sec - % stenosis 60-70% 3.2. Middle Segment: Peak systolic velocity 122 cm/sec: End-diastolic velocity 25 cm/sec - % stenosis 0-15% 3.3. Distal Segment: Peak systolic velocity 77 cm/sec: End-diastolic velocity 13 cm/sec - % stenosis 0-15% 4. External Carotid Artery: No significant focal plaque formation. Peak systolic velocity 119 cm/sec 5. ICA/CCA Ratio: 2.6 VERTEBRAL ARTERIES: 1. Right Vertebral Artery: The right vertebral artery flow direction is antegrade. 2. Left Vertebral Artery: The left vertebral artery flow direction is antegrade. OTHER FINDINGS: 1. Right Brachial Blood pressure: 150 mmHg. 2. Left Brachial Blood pressure: mmHg. IMPRESSION: RIGHT: Duplex scan does not suggest hemodynamically significant stenosis of the right extracranial carotid arteries. LEFT: 60-70% stenosis of the left proximal ICA with moderate hemodynamic significance.
[2016-05-05 16:41] VITALS: PULSE 68
--- NOTE | 2016-05-05 17:32 | PN ---
DATE: 05/05/2016 ROOM 661 This is a 70-year-old male with recent uncontrolled type 2 insulin-requiring diabetes presenting here with frequent syncopal episodes, and actually sustained an accidental fall on the day of admission w ith a fracture in the distal right radius as noted thereof. He also had significant neuroglycopenic and hyperadrenergic manifestations related to symptomatic hypoglycemia as noted. His glycemic levels , however, are fluctuating as his oral intake has improved, and the latest glucose values have ranged from 83-128 and 286 mg/dL. His latest chemistries were not done today, as the patient refused the initial orders for chemistries as suggested for today. So at this time, will modify his basal insulin and increase the Levemir to 14 units subQ at bedtime daily to start tonight. Will also continue the oral hypoglycemic drug thera py with glipizide given as 10 mg b.i.d. before meals as ordered. Will continue the low-dose correcti on scale using Novolin regular insulin as given. Will titrate incrementally as indicated to optimize metabolic control. Will follow. Ragini Redding MD cc: [phone] TT: 05/05/2016 17:31:37 Confirmation # [id number] Dictation # [id number] ruy
[2016-05-05 17:54] VITALS: RESP 20; O2SAT 97
[2016-05-05] MEDS ORDERED: Insulin Detemir 100 units/ml Vial (Levemir) SC SCH (22:00)
--- NOTE | 2016-05-05 22:40 | PN ---
DATE: 05/05/2016 The patient was seen and examined at bedside. The patient offers no new complaints, Underwent CT ang iography this morning, cardiac catheterization was canceled as the patient already got the IV contras t load. PHYSICAL EXAMINATION: GENERAL: Elderly male lying in bed in no acute distress. VITAL SIGNS: Blood pressure 144/82, pulse 68, respirations 20, temperature 97.9 degrees Fahrenheit, O2 sats 97% on room air. HEENT: Pupils equal, reacting to light and accommodation, right eyelid ecchymosis noted. No oral th vu. No pharyngeal congestion. NECK: Supple. No JVD. LUNGS: Bilateral vesicular breath sounds. No wheezing, no rhonchi. CARDIOVASCULAR: S1, S2 present, regular. ABDOMEN: Soft, nontender. Bowel sounds present. No guarding, no rigidity, no rebound tenderness no pillo. CENTRAL NERVOUS SYSTEM: Alert, awake, oriented x 3. No focal deficits noted. EXTREMITIES: No edema. Palpable peripheral pulses. MEDICATIONS: Mucomyst 3 mL q. 12 hours, Norvasc 10 mg daily, aspirin 325 mg p.o. daily, folic acid 1 mg daily, glipizide 10 mg b.i.d., Levemir 14 units subQ at bedtime, metoprolol 25 mg p.o. q. 12, mul tivitamin 1 tab daily, Nicoderm 1 patch daily, Crestor 5 mg p.o. at bedtime, Flomax 0.4 mg daily, thi amine 100 mg p.o. daily. His Accu-Cheks are 163, 286, 128, 83, 239. Angiography CT shows severe calcified atherosclerotic plaques in the left proximal internal carotid a rtery. There is hemodynamically significant stenosis. No evidence of poststenotic dilatation, moder ate calcific atherosclerotic plaques in the right proximal internal carotid artery, without any evide nce of hemodynamically significant stenosis. Patent bilateral vertebral arteries, the left vertebral artery is dominant. ASSESSMENT AND PLAN: An elderly male with history of hypertension, diabetes mellitus, hyperlipidemia , depression; admitted for multiple syncopal episodes. His CT angiography shows left carotid stenosis. The patient is scheduled for possible cardiac cathet erization in a.m. His blood pressure is controlled. Continue with current blood pressure medication and insulin regimen. The patient is scheduled for possible left carotid endarterectomy on Thursday . I will follow up with cardiology, after cardiac catheterization, for cardiac clearance. We will c ontinue with the other current medication. We will hold aspirin. Gene Perez MD cc: [phone] TT: 05/05/2016 22:39:15 Confirmation # [id number] Dictation # [id number] ln
[2016-05-06 00:28] VITALS: BP 151/81; TEMP 97.6
--- NOTE | 2016-05-06 00:56 | CP.PCM.PN ---
Subjective - Date & Time of Evaluation Date of Evaluation: 05/05/16 Time of Evaluation: 13:00 - Subjective Subjective: Patient s/p CTA Possible cardiac cath tomorrow prior to CEA Objective - Vital Signs/Intake and Output Vital Signs (last 24 hours): Temp Pulse Resp BP Pulse Ox 97.6 F 68 20 151/81 H 97 05/05/16 23:05 05/05/16 23:43 05/05/16 23:05 05/05/16 23:05 05/05/16 23:05 Intake and Output: 05/05/16 05/06/16 18:59 06:59 Intake Total 390 Output Total 200 Balance 390 -200 - Medications Medications: Current Medications Acetylcysteine (Acetylcysteine 20%) 3 ml PO Q12H [facility] Stop: 05/06/16 12:16 Last Admin: 05/05/16 13:15 Dose: 3 ml Amlodipine Besylate (Norvasc) 10 mg PO DAILY [facility] Last Admin: 05/05/16 10:28 Dose: 10 mg Aspirin (Aspirin) 325 mg PO DAILY [facility] Last Admin: 05/05/16 10:28 Dose: 325 mg Folic Acid (Folic Acid) 1 mg PO DAILY [facility] Last Admin: 05/05/16 11:00 Dose: 1 mg Glipizide (Glucotrol) 10 mg PO ACBD [facility] Last Admin: 05/05/16 17:40 Dose: 10 mg Sodium Chloride (Sodium Chloride 0.45%) 1,000 mls @ 50 mls/hr IV .Q20H [facility] Last Admin: 05/05/16 12:35 Dose: 50 mls/hr Insulin Detemir (Levemir) 14 unit SC [facility] Last Admin: 05/05/16 22:55 Dose: Not Given Insulin Human Regular (Novolin R) 0 unit SC [facility] PRN Reason: Protocol Last Admin: 05/05/16 22:55 Dose: Not Given Metoprolol Tartrate (Lopressor) 25 mg PO Q12 [facility] Last Admin: 05/05/16 21:31 Dose: 25 mg Multivitamins (Hexavitamin) 1 tab PO DAILY [facility] Last Admin: 05/05/16 11:00 Dose: 1 tab Nicotine (Nicoderm Cq) 1 patch TD DAILY [facility] Last Admin: 05/05/16 10:00 Dose: Not Given Rosuvastatin Calcium (Crestor) 5 mg PO [facility] Last Admin: 05/05/16 21:31 Dose: 5 mg Tamsulosin HCl (Flomax) 0.4 mg PO DAILY [facility] Last Admin: 05/05/16 11:00 Dose: 0.4 mg Thiamine HCl (Vitamin B1 Tab) 100 mg PO DAILY [facility] Last Admin: 05/05/16 11:00 Dose: 100 mg - Labs Labs: 05/03/16 06:09 PT 11.5 SECONDS (9.7-12.2) 05/01/16 15:05 INR 1.0 05/01/16 15:05 APTT 32 SECONDS (21-34) 05/02/16 00:13
--- NOTE | 2016-05-06 15:58 | PN ---
DATE: 05/06/2016 ROOM: 661 This is a 70-year-old male with recent uncontrolled type 2 insulin-requiring diabetes and had recent near syncopal and syncopal episodes with a concomitant symptomatic hypoglycemia and is now being foll owed closely for metabolic management. He has since then improved clinically and metabolically as no pillo thereof. His oral intake, however, remains quite variable as per the nursing staff. His latest glucose levels have ranged from 83-239 and 284 mg/dL. He refused further lab testing as p er the nursing staff. His latest chemistries showed a BUN of 23, sodium 140, potassium 4.6, chloride 103, CO2 23, glucose 146, and creatinine 1.3. His hemoglobin A1c was reported as 8.2% which is elev ated and indicative of suboptimal metabolic control of his diabetic condition. So at this time, will continue the same basal insulin given as Levemir at 14 units subQ at bedtime da tamara as ordered. Will continue the oral hypoglycemic drug therapy given as glipizide 10 mg b.i.d. bef ore meals as ordered. Will titrate incrementally as indicated to optimize metabolic control. Will f reginaldo and advise accordingly. Ragini Redding MD cc: [phone] TT: 05/06/2016 15:57:36 Confirmation # [id number] Dictation # [id number] priscila
--- NOTE | 2016-05-13 10:52 | CARD ---
APPROVED REPORT EKG Measurement Heart [id number] <Conclusion> Sinus rhythm with 1st degree AV block with occasional premature ventricular complexes Left anterior fascicular block Septal infarct, age undetermined Inferior infarct, age undetermined Abnormal ECG
--- NOTE | 2016-05-30 22:25 | DS ---
Discharged against medical advice. DISCHARGE DIAGNOSES: Hypertension, hyperlipidemia, diabetes mellitus, history of depression, multipl e syncopal episodes, admitted for syncope, left carotid stenosis, history of ETOH abuse, history of p ancreatic cyst, history of right wrist nondisplaced fracture, following up with orthopedics, yomaira redman from syncope and fall. HISTORY OF PRESENT ILLNESS: The patient is a 70-year-old male with past medical history of hypertens ion, hyperlipidemia, diabetes mellitus, depression, history of ETOH abuse, pancreatic cyst, abdominal surgery, multiple syncopal episodes with right wrist fracture, has been following up with Dr. Miranda, the orthopedic physician. Came into the ED, brought by EMS after patient had sustained a syncopal ep isode while he was walking to his PMD's office and patient is being admitted for further management. On the day of discharge, the patient was upset about not getting a cardiac catheterization done. He denied any headache, dizziness. He denied any chest pain, denied any complaints, but he wanted to s ign out against medical advice. PHYSICAL EXAMINATION: VITAL SIGNS: Blood pressure 151/81, pulse 62, respirations 20, temperature 97.6 degrees Fahrenheit, O2 sats 97% on room air. HEENT: Pupils equal, round, reacting to light and accommodation. Extraocular muscles intact. No ic terus, no pallor. NECK: Supple. LUNGS: Bilateral vesicular breath sounds. No wheezing, no rhonchi. CARDIOVASCULAR: S1, S2 present, regular. ABDOMEN: Soft, nontender. Bowel sounds present. CENTRAL NERVOUS SYSTEM: Alert, awake, oriented x 3. No focal deficits noted. EXTREMITIES: No edema. LABORATORY DATA: On the day of discharge, 286, 128, 83, 239 and 284 of glucose. On 05/01/2016, WBC 7.3, hemoglobin 14.1, hematocrit 41.4, platelets 177. Hemoglobin A1c 8.2. Triglycerides 100, cholest radha 78, LDL 37, HDL 26. TSH 1.55. Angiography of carotids shows severe calcified atherosclerotic pl aques in the left proximal internal carotid artery, hemodynamically significant stenosis. No evidenc e of post stenotic dilatation. Moderate calcified atherosclerotic plaques in the right proximal inter nal carotid artery without evidence of hemodynamically significant stenosis. Patent bilateral verteb ral arteries. Wrist x-ray shows subacute transverse nondisplaced impacted fracture in the distal rad ius, moderate soft tissue swelling at the wrist joint. Cervical spine CT: Multilevel degenerative ch anges, no evidence of fracture. MRI of the brain: No acute intracranial abnormality, moderate chron ic microangiopathic changes. EEG: Normal EEG. HOSPITAL COURSE: The patient was admitted to telemetry for syncope. The patient was ruled out for a cute LA. The patient was evaluated by cardiology and neurology. The patient underwent a tilt table test and patient was evaluated by cardiology, scheduled for cardiac catheterization. The patient was evaluated by vascular surgery for left carotid stenosis. The patient underwent a neurologic workup, everything was negative other than the left carotid stenosis. The patient was scheduled for endarte rectomy. Prior to endarterectomy, the patient needed a cardiac clearance for which Dr. Elliott was plann ing to do cardiac catheterization. Because of the other conditions, cardiac catheterization was postp oned. The patient was upset that he could not get the procedure done and he wanted to be discharged and patient was explained the risks of going against medical advice. The patient understood the cons equences of going home against medical advice. vice president corporate communications explained the risks. As patient is alert, awake, oriented x 3 and hemodynamically stable, the patient was discharged against medical adv ice. CONDITION UPON DISCHARGE: The patient was alert, awake, oriented x 3 and hemodynamically stable. Ad vised patient to follow up with PMD, follow up with cardiology, follow up with vascular surgery, foll ow up with endocrinology. I advised the patient to return to the ED if any symptoms recur. Gene Perez MD cc: [phone] TT: 05/30/2016 22:24:36 ln
== END 2016-05-06 06:05 | disposition left against medical advice (07) | DRG 982 ==
LOC: C.ER 13:40 → C.9E 18:07 → C.6T 19:22 → OBSVTOIN 05-02 11:38 → C.6T 05-02 22:47
PROVIDERS: ADMIT Internal Medicine; ATTEND Internal Medicine
PROC: 0HQ1XZZ Repair Face Skin, External Approach (ICD-10-PCS; 2016-05-01)
PROC: 0JH632Z Insertion of Monitoring Device into Chest Subcutaneous Tissue and Fascia, Percutaneous Approach (ICD-10-PCS; principal; 2016-05-02)
DX: E11.649 Type 2 diabetes mellitus with hypoglycemia without coma (principal); I65.22 Occlusion and stenosis of left carotid artery; R55 Syncope and collapse; I49.3 Ventricular premature depolarization; I10 Essential (primary) hypertension; K86.0 Alcohol-induced chronic pancreatitis; K70.9 Alcoholic liver disease, unspecified; S01.111A Laceration without foreign body of right eyelid and periocular area, initial encounter; I25.10 Atherosclerotic heart disease of native coronary artery without angina pectoris; S00.511A Abrasion of lip, initial encounter; F32.9 Major depressive disorder, single episode, unspecified; F10.21 Alcohol dependence, in remission; F17.210 Nicotine dependence, cigarettes, uncomplicated; W18.30XA Fall on same level, unspecified, initial encounter; S52.501G Unspecified fracture of the lower end of right radius, subsequent encounter for closed fracture with delayed healing; Y92.89 Other specified places as the place of occurrence of the external cause; Z79.4 Long term (current) use of insulin; Z91.81 History of falling; Z95.5 Presence of coronary angioplasty implant and graft; Z87.891 Personal history of nicotine dependence; Y92.414 Local residential or business street as the place of occurrence of the external cause; Z23 Encounter for immunization

== ENCOUNTER 2016-08-29 08:26 | Inpatient (IN) | payer MEDICARE, OTHER ==
[2016-08-29 08:27] VITALS: BMI 22.1
--- NOTE | 2016-08-29 08:59 | C.PDOC ---
History Of Present Illness 70M presents after recent sycnope and discovery of CA stenosis. he has no chest pain, sob, or any other complaints at this time. Time Seen by Provider: 08/29/16 08:55 Chief Complaint (Nursing): Medical Clearance Past Medical History Vital Signs: Last Vital Signs Temp 98 F 08/29/16 10:52 Pulse 55 L 08/29/16 10:52 Resp 20 08/29/16 10:52 BP 94/60 L 08/29/16 10:52 Pulse Ox 99 08/29/16 10:52 - Medical History PMH: Depression, HTN, Pancreatitis - [facility] Procedures INSERT OF MONITOR DEV INTO CHEST SUBCU/FASCIA, PERC APPROACH (05/02/16) REPAIR FACE SKIN, EXTERNAL APPROACH (05/02/16) Family History: States: Other Other Family History: nc - Social History Hx Tobacco Use: Yes Hx Alcohol Use: Yes Hx Substance Use: No - Immunization History Hx Tetanus Toxoid Vaccination: No (unsure) Hx Influenza Vaccination: No (unsure) Hx Pneumococcal Vaccination: No (unsure) Review Of Systems Except As Marked, All Systems Reviewed And Found Negative. Constitutional: Negative for: Fever, Chills Eyes: Negative for: Vision Change Cardiovascular: Negative for: Chest Pain, Palpitations Respiratory: Negative for: Cough, Shortness of Breath Gastrointestinal: Negative for: Nausea, Vomiting, Abdominal Pain Neurological: Negative for: Weakness, Numbness, Altered Mental Status, Headache Physical Exam - Physical Exam Appears: Well, Non-toxic, No Acute Distress Skin: Warm, Dry Head: Atraumatic Eye(s): bilateral: PERRL Nose: No Epistaxis Oral Mucosa: Moist Lips: No Swelling Cardiovascular: Rhythm Regular Respiratory: No Decreased Breath Sounds, No Accessory Muscle Use Neurological/Psych: Oriented x3, Other (no focal deficits) ED Course And Treatment - Laboratory Results Result Diagrams: 08/29/16 10:21 08/29/16 10:21 O2 Sat by Pulse Oximetry: 99 Medical Decision Making Medical Decision Making: EKG interpretation: Sinus bradycardia 54 with first degree AV block, no STEMI. disc w Dr Hamilton- pt to go for [facility] today. plan for CEA thursday admit to med service Dr Fields Disposition - Disposition Disposition: HOSPITALIZED Disposition Time: 10:13 Condition: STABLE - Clinical Impression Clinical Impression: Syncope, Carotid stenosis
[2016-08-29 10:39] LABS: BASO # 0.1 K/uL (0.0-0.2); BASO % 1.4 % (0.0-2.0); EOS # 0.3 K/uL (0.0-0.7); EOS % 4.4 % (0.0-4.0); HEMOGLOBIN 10.7 g/dL (12.0-18.0); LYMPH % 13.5 % (20.0-40.0); MEAN CELL VOLUME 85.2 fL (80.0-94.0); MEAN CORPUSCULAR HEMOGLOBIN 28.2 pg (27.0-31.0); MEAN CORPUSCULAR HGB CONC 33.1 g/dL (33.0-37.0); MEAN PLATELET VOLUME 7.7 fL (7.2-11.7); MONO # 0.4 K/uL (0.0-0.8); MONO % 6.2 % (0.0-10.0); NEUT # 5.4 K/uL (1.8-7.0); NEUT % 74.5 % (50.0-75.0); RBC 3.8 Mil/uL (4.40-5.90); RED CELL DISTRIBUTION WIDTH 16.1 % (11.5-14.5); WHITE BLOOD COUNT 7.2 K/uL (4.8-10.8)
[2016-08-29 10:51] LABS: PROTHROMBIN TIME 11.5 SECONDS (9.7-12.2)
[2016-08-29 10:52] LABS: ALBUMIN 3.5 g/dL (3.5-5.0)
[2016-08-29 10:55] LABS: CALCIUM 8.8 mg/dl (8.6-10.4)
--- NOTE | 2016-08-29 11:50 | RAD ---
HISTORY: Preop. Portable semi erect study 10:10. COMPARISON: 08/21/2016. FINDINGS: LUNGS: No active pulmonary disease. PLEURA: No significant pleural effusion identified, no pneumothorax apparent. CARDIOVASCULAR: No radiographic findings to suggest acute or significant cardiovascular disease. OSSEOUS STRUCTURES: No significant abnormalities. VISUALIZED UPPER ABDOMEN: Normal. OTHER FINDINGS: None. IMPRESSION: No active disease. No significant interval change compared to the prior examination(s). No preliminary report provided by emergency department personnel.
[2016-08-29] MEDS ORDERED: Midazolam 2 MG/2 ML VIAL ONE (14:02)
[2016-08-29] MEDS ORDERED: Iodixanol 320 MG/ML 100 ML BOTTLE IV ONE (14:09)
--- NOTE | 2016-08-29 15:05 | CP.PCM.PN ---
Subjective - Date & Time of Evaluation Date of Evaluation: 08/29/16 Time of Evaluation: 14:54 - Subjective Subjective: PROCEDURE NOTE Proc: C Coronary arteriogram LVgram Indic: Chest pain - r/o CAD Pre-op for endarterectomy Preliminary findings Left main 40-50% stenosis distally LAD multiple aneurysmal dilatation LCx 60% osteal OM 1 50% mid-Cx RCA 50% prox- and mid-RCA rt dominant circulation Left ventriculogram EF = 70% no gradient across the ortic valve nL LV systolic function IMPRESSION Left main disease Non-obtructive lesion of LAD, LCx and RCA NL LV systolic function PLAN Since pt has symptomatic carotid artery stenosis, pt may go for endarterectomy with moderate risk. Will discuss FFR with Dr Elliott. Objective - Vital Signs/Intake and Output Vital Signs (last 24 hours): Temp Pulse Resp BP Pulse Ox 98 F 55 L 20 94/60 L 99 08/29/16 10:52 08/29/16 10:52 08/29/16 10:52 08/29/16 10:52 08/29/16 10:52 - Labs Labs: 08/29/16 10:21 08/29/16 10:21 PT 11.5 SECONDS (9.7-12.2) 08/29/16 10:21 INR 1.0 08/29/16 10:21 APTT 31 SECONDS (21-34) 08/29/16 10:21
[2016-08-29] MEDS ORDERED: Sodium Chloride 0.9% 1,000 ML IV SCH (15:30)
[2016-08-30] MEDS ORDERED: Insulin Detemir 100 units/ml Vial (Levemir) SC ONE (09:15)
--- NOTE | 2016-08-30 10:57 | CP.PCM.HP ---
History of Present Illness - History of Present Illness History of Present Illness: pt admited for hx syncope and founf to have caroted stenisis will have END ARTRECTOMY SURGERY IN AM had cardiac cath and cleared for surgery Present on Admission - Present on Admission Any Indicators Present on Admission: Yes History of Uncontrolled Diabetes: Yes Review of Systems - Review of Systems Systems not reviewed;Unavailable: Acuity of Condition - Constitutional Constitutional: As Per HPI - EENT Eyes: As Per HPI Ears: As Per HPI Nose/Mouth/Throat: As Per HPI - Cardiovascular Cardiovascular: As Per HPI - Respiratory Respiratory: Dyspnea on Exertion - Gastrointestinal Gastrointestinal: As Per HPI - Genitourinary Genitourinary: As Per HPI - Reproductive: Male Reproductive:Male: As Per HPI - Musculoskeletal Musculoskeletal: As Per HPI - Integumentary Integumentary: As Per HPI - Neurological Neurological: Dizziness - Psychiatric Psychiatric: As Per HPI - Endocrine Endocrine: Polyuria - Hematologic/Lymphatic Hematologic: As Per HPI Past Patient History - Infectious Disease Hx of Infectious Diseases: None - Past Medical History & Family History Past Medical History?: Yes - Past Social History Smoking Status: Heavy Smoker > 10 Cigarettes Daily - CARDIAC Hx Hypertension: Yes - PULMONARY Hx Respiratory Disorders: No - NEUROLOGICAL Hx Neurological Disorder: Yes Hx Dizziness: Yes - HEENT Other/Comment: glasses for reading - RENAL Hx Chronic Kidney Disease: No - ENDOCRINE/METABOLIC Hx Endocrine Disorders: Yes Hx Diabetes Mellitus Type 2: Yes - HEMATOLOGICAL/ONCOLOGICAL Hx Blood Disorders: No - INTEGUMENTARY Hx Dermatological Problems: No - MUSCULOSKELETAL/RHEUMATOLOGICAL Hx Falls: No - GASTROINTESTINAL Hx Pancreatitis: Yes - GENITOURINARY/GYNECOLOGICAL Hx Genitourinary Disorders: Yes Hx Prostate Problems: Yes - PSYCHIATRIC Hx Depression: Yes Hx Substance Use: No - SURGICAL HISTORY Hx Surgeries: Yes Other/Comment: cyst drainage - ANESTHESIA Hx Anesthesia: Yes Hx Anesthesia Reactions: No Hx Malignant Hyperthermia: No Has any member of the family had a problem w/ anesthesia?: No Meds Allergies/Adverse Reactions: Allergies Allergy/AdvReac Type Severity Reaction Status Date / Time No Known Allergies Allergy Verified 06/16/16 15:27 Physical Exam - Constitutional Appears: Non-toxic - Head Exam Head Exam: NORMAL INSPECTION - Eye Exam Eye Exam: Normal appearance Pupil Exam: NORMAL ACCOMODATION - ENT Exam ENT Exam: Normal Exam - Neck Exam Neck exam: Positive for: Normal Inspection - Respiratory Exam Respiratory Exam: NORMAL BREATHING PATTERN - Cardiovascular Exam Cardiovascular Exam: REGULAR RHYTHM - GI/Abdominal Exam GI & Abdominal Exam: Normal Bowel Sounds - Rectal Exam Rectal Exam: NORMAL INSPECTION - Extremities Exam Extremities exam: Positive for: normal inspection - Back Exam Back exam: NORMAL INSPECTION - Neurological Exam Neurological exam: Normal Gait - Psychiatric Exam Psychiatric exam: Normal Affect - Skin Skin Exam: Normal Color Results - Vital Signs Recent Vital Signs: Last Vital Signs Temp 97.4 F L 08/30/16 08:05 Pulse 62 08/30/16 08:05 Resp 20 08/30/16 08:05 BP 175/75 H 08/30/16 08:05 Pulse Ox 97 08/30/16 08:05 - Labs Result Diagrams: 08/29/16 10:21 08/29/16 10:21 Labs: Laboratory Results - last 24 hr 08/29/16 08/29/16 08/29/16 10:16 10:21 10:21 PT 11.5 INR 1.0 APTT 31 Sodium 141 Potassium 4.3 Chloride 104 Carbon Dioxide 27 Anion Gap 15 BUN 34 H Creatinine 1.6 H Est GFR ( Amer) 52 Est GFR (Non-Af Amer) 43 POC Glucose (mg/dL) Random Glucose 61 L Calcium 8.8 Total Bilirubin 0.7 AST 17 D ALT 19 L D Alkaline Phosphatase 214 H D Total Protein 7.0 Albumin 3.5 D Globulin 3.5 Albumin/Globulin Ratio 1.0 Blood Type O POSITIVE Antibody Screen Negative 08/29/16 08/29/16 08/29/16 12:41 16:27 21:49 PT INR APTT Sodium Potassium Chloride Carbon Dioxide Anion Gap BUN Creatinine Est GFR ( Amer) Est GFR (Non-Af Amer) POC Glucose (mg/dL) 84 152 H 310 H Random Glucose Calcium Total Bilirubin AST ALT Alkaline Phosphatase Total Protein Albumin Globulin Albumin/Globulin Ratio Blood Type Antibody Screen 08/30/16 06:03 PT INR APTT Sodium Potassium Chloride Carbon Dioxide Anion Gap BUN Creatinine Est GFR ( Amer) Est GFR (Non-Af Amer) POC Glucose (mg/dL) 310 H Random Glucose Calcium Total Bilirubin AST ALT Alkaline Phosphatase Total Protein Albumin Globulin Albumin/Globulin Ratio Blood Type Antibody Screen Assessment & Plan - Assessment and Plan (Free Text) Assessment: syncope carotid artery stenosis dmuncontroled Plan: for surgery in am - Date & Time Date: 08/30/16 Time: 11:01
[2016-08-30] MEDS ORDERED: (Novolin R) Insulin Human Regular 100 units/ml vial SC SCH (12:16)
[2016-08-30] MEDS: (Novolin R) Insulin Human Regular 100 units/ml vial SC SCH ×5 (13:17→21:57)
[2016-08-30] MEDS: Insulin Detemir 100 units/ml Vial (Levemir) SC SCH (18:05)
[2016-08-31] MEDS ORDERED: Dextrose 50% SYRINGE Inj (50 ml) IV STA (06:16)
[2016-08-31 08:13] LABS: HEMOGLOBIN 9.9 g/dL (12.0-18.0); MEAN CELL VOLUME 85.2 fL (80.0-94.0); MEAN CORPUSCULAR HEMOGLOBIN 28.3 pg (27.0-31.0); MEAN CORPUSCULAR HGB CONC 33.3 g/dL (33.0-37.0); MEAN PLATELET VOLUME 7.5 fL (7.2-11.7); RBC 3.49 Mil/uL (4.40-5.90); RED CELL DISTRIBUTION WIDTH 16.6 % (11.5-14.5); WHITE BLOOD COUNT 5.5 K/uL (4.8-10.8)
[2016-08-31 08:23] LABS: ALBUMIN 2.8 g/dL (3.5-5.0)
[2016-08-31 08:25] LABS: GFR AFRICAN-AMERICAN > 60; GFR NON-AFRICAN AMERICAN 50
[2016-08-31 08:26] LABS: ALB/GLOB RATIO 0.9 (1.0-2.1); ALT/SGPT 29 U/L (21-72); AST/SGOT 15 U/L (17-59); BLOOD UREA NITROGEN 32 mg/dL (9-20)
[2016-08-31 08:27] LABS: CALCIUM 7.9 mg/dl (8.6-10.4)
[2016-08-31 08:32] LABS: PROTHROMBIN TIME 11.8 SECONDS (9.7-12.2)
[2016-08-31] MEDS: (Novolin R) Insulin Human Regular 100 units/ml vial SC SCH ×6 (11:10→22:19)
[2016-08-31] MEDS: Insulin Detemir 100 units/ml Vial (Levemir) SC SCH (11:11)
--- NOTE | 2016-08-31 12:57 | CP.PCM.PN ---
Subjective - Date & Time of Evaluation Date of Evaluation: 08/30/16 Time of Evaluation: 18:30 - Subjective Subjective: Patient seen and evaluated S/P cath Non critical CAD Normal EF Low to intermediate risk for cardiac events for CEA under General Anaesthesia Continue current meds Objective - Vital Signs/Intake and Output Vital Signs (last 24 hours): Temp Pulse Resp BP Pulse Ox 97.7 F 60 20 144/77 98 08/31/16 09:10 08/31/16 09:10 08/31/16 09:10 08/31/16 09:10 08/31/16 09:10 Intake and Output: 08/31/16 08/31/16 06:59 18:59 Intake Total 1620 Output Total 1475 Balance 145 - Medications Medications: Current Medications Docusate Sodium (Colace) 100 mg PO DAILY [facility] Last Admin: 08/31/16 11:20 Dose: 100 mg Sodium Chloride (Sodium Chloride 0.9%) 1,000 mls @ 60 mls/hr IV .[id number] [facility] Last Admin: 08/31/16 11:21 Dose: 60 mls/hr Insulin Detemir (Levemir) 20 unit SC BID [facility] Last Admin: 08/31/16 11:11 Dose: Not Given Insulin Human Regular (Novolin R) 0 unit SC ACHS [facility] PRN Reason: Protocol Last Admin: 08/31/16 11:18 Dose: Not Given Insulin Human Regular (Novolin R) 10 unit SC AC [facility] Last Admin: 08/31/16 11:10 Dose: Not Given - Labs Labs: 08/31/16 08:05 08/31/16 08:05 PT 11.8 SECONDS (9.7-12.2) 08/31/16 08:05 INR 1.0 08/31/16 08:05 APTT 30 SECONDS (21-34) 08/31/16 08:05
--- NOTE | 2016-08-31 13:26 | CP.PCM.PN ---
Subjective - Date & Time of Evaluation Date of Evaluation: 08/31/16 Time of Evaluation: 13:24 - Subjective Subjective: pt feels beter Objective - Vital Signs/Intake and Output Vital Signs (last 24 hours): Temp Pulse Resp BP Pulse Ox 97.7 F 60 20 144/77 98 08/31/16 09:10 08/31/16 09:10 08/31/16 09:10 08/31/16 09:10 08/31/16 09:10 Intake and Output: 08/31/16 08/31/16 06:59 18:59 Intake Total 1620 Output Total 1475 Balance 145 - Medications Medications: Current Medications Docusate Sodium (Colace) 100 mg PO DAILY [facility] Last Admin: 08/31/16 11:20 Dose: 100 mg Sodium Chloride (Sodium Chloride 0.9%) 1,000 mls @ 60 mls/hr IV .[id number] [facility] Last Admin: 08/31/16 11:21 Dose: 60 mls/hr Insulin Human Regular (Novolin R) 0 unit SC ACHS [facility] PRN Reason: Protocol Last Admin: 08/31/16 11:18 Dose: Not Given Multivitamins/Minerals (Therapeutic-M Tab) 1 tab PO 0800 [facility] - Labs Labs: 08/31/16 08:05 08/31/16 08:05 PT 11.8 SECONDS (9.7-12.2) 08/31/16 08:05 INR 1.0 08/31/16 08:05 APTT 30 SECONDS (21-34) 08/31/16 08:05 - Constitutional Appears: Non-toxic - Head Exam Head Exam: NORMAL INSPECTION - Eye Exam Eye Exam: Normal appearance Pupil Exam: NORMAL ACCOMODATION - ENT Exam ENT Exam: Mucous Membranes Moist - Respiratory Exam Respiratory Exam: NORMAL BREATHING PATTERN - Cardiovascular Exam Cardiovascular Exam: REGULAR RHYTHM - GI/Abdominal Exam GI & Abdominal Exam: Normal Bowel Sounds - Rectal Exam Rectal Exam: NORMAL INSPECTION - Exam Exam: NORMAL INSPECTION - Extremities Exam Extremities Exam: Normal Inspection - Back Exam Back Exam: NORMAL INSPECTION - Neurological Exam Neurological Exam: Awake, Oriented x3 - Psychiatric Exam Psychiatric exam: Normal Affect - Skin Skin Exam: Dry Assessment and Plan - Assessment and Plan (Free Text) Assessment: stenosis s/p syncope Plan: surgery in amadd vitamins for aneamia cont ins coverage only
--- NOTE | 2016-08-31 16:39 | CP.PCM.CON ---
History of Present Illness - History of Present Illness History of Present Illness: VASCULAR SURGERY CONSULT NOTE FOR DR. DENIS 70yo M with PMHx of DM, HTN, pancreatitis secondary to etoh abuse who has left carotid artery stenosis and is scheduled for Left carotid endarterectomy tomorrow. The surgery was scheduled to be outpatient but the patient had a cardiac cath on 08/29 for cardiac clearance and stayed in the hospital. The cardiac cath showed noncritical CAT, normal EF and the patient was cleared for surgery with low to intermediate risk for general anesthesia. Patient initially presented to the ED on 05/01/16 after dizziness and syncope. He was found to be hypoglycemic. CT head was negative. He had multiple episodes of mechanical falls over the past 6 months with one resulting in a fractured right distal radius. He states that all the previous falls were just mechanical falls but this was the first time he passed out. He had some brief episodes of blindness, mostly in the right eye, that last 10-15 seconds. He did not have any weakness. Carotid duplex on 05/01/16 showed 60-70% stenosis of left proximal ICA. CT angio of neck on 05/05/16 showed severe calcified atherosclerotic plaque in left proximal internal carotid with hemodynamically significant stenosis. There was moderate calcified ahterosclerotic plaque in the right proximal ICA without evidence of hemodynamically significant stenosis PMHx: DM, HTN, depression, chronic pancreatitis secondary to etoh abuse, syncope Surgeries: pancreatic cyst drainage and Ex lap for drain removal 8 years ago, tonsillectomy, inguinal hernia repair as baby Allergies: none Social history: Etoh abuse, quit in 2007, smokes 3 PPD for 50 years, used to use multiple drugs including cocaine, LSD, marijuana, hash in the 70s until 1994 Review of Systems - Review of Systems All systems: reviewed and no additional remarkable complaints except (as per hpi ) Past Patient History - Infectious Disease Hx of Infectious Diseases: None - Past Medical History & Family History Past Medical History?: Yes - Past Social History Smoking Status: Heavy Smoker > 10 Cigarettes Daily - CARDIAC Hx Hypertension: Yes - PULMONARY Hx Respiratory Disorders: No - NEUROLOGICAL Hx Neurological Disorder: Yes Hx Dizziness: Yes - HEENT Other/Comment: glasses for reading - RENAL Hx Chronic Kidney Disease: No - ENDOCRINE/METABOLIC Hx Endocrine Disorders: Yes Hx Diabetes Mellitus Type 2: Yes - HEMATOLOGICAL/ONCOLOGICAL Hx Blood Disorders: No - INTEGUMENTARY Hx Dermatological Problems: No - MUSCULOSKELETAL/RHEUMATOLOGICAL Hx Falls: No - GASTROINTESTINAL Hx Pancreatitis: Yes - GENITOURINARY/GYNECOLOGICAL Hx Genitourinary Disorders: Yes Hx Prostate Problems: Yes - PSYCHIATRIC Hx Depression: Yes Hx Substance Use: No - SURGICAL HISTORY Hx Surgeries: Yes Other/Comment: cyst drainage - ANESTHESIA Hx Anesthesia: Yes Hx Anesthesia Reactions: No Hx Malignant Hyperthermia: No Has any member of the family had a problem w/ anesthesia?: No Meds Allergies/Adverse Reactions: Allergies Allergy/AdvReac Type Severity Reaction Status Date / Time No Known Allergies Allergy Verified 06/16/16 15:27 - Medications Medications: Current Medications Docusate Sodium (Colace) 100 mg PO DAILY [facility] Last Admin: 08/31/16 11:20 Dose: 100 mg Insulin Human Regular (Novolin R) 0 unit SC ACHS [facility] PRN Reason: Protocol Last Admin: 08/31/16 13:24 Dose: Not Given Multivitamins/Minerals (Therapeutic-M Tab) 1 tab PO 0800 [facility] Physical Exam - Constitutional Appears: Non-toxic, No Acute Distress - Head Exam Head Exam: ATRAUMATIC, NORMAL INSPECTION - ENT Exam ENT Exam: Mucous Membranes Moist - Respiratory Exam Respiratory Exam: NORMAL BREATHING PATTERN. absent: Respiratory Distress - Cardiovascular Exam Cardiovascular Exam: +S1, +S2 - GI/Abdominal Exam GI & Abdominal Exam: Soft. absent: Tenderness - Neurological Exam Neurological exam: Alert, CN II-XII Intact, Oriented x3 - Psychiatric Exam Psychiatric exam: Normal Affect, Normal Mood - Skin Skin Exam: Dry, Normal Color, Warm Results - Vital Signs Recent Vital Signs: Last Vital Signs Temp 97.7 F 08/31/16 09:10 Pulse 84 08/31/16 14:37 Resp 20 08/31/16 09:10 BP 144/77 08/31/16 09:10 Pulse Ox 98 08/31/16 09:10 - Labs Result Diagrams: 08/31/16 08:05 08/31/16 08:05 Labs: Laboratory Results - last 24 hr 08/30/16 08/31/16 08/31/16 21:48 06:09 06:34 WBC RBC Hgb Hct MCV MCH MCHC RDW Plt Count MPV PT INR APTT Sodium Potassium Chloride Carbon Dioxide Anion Gap BUN Creatinine Est GFR ( Amer) Est GFR (Non-Af Amer) POC Glucose (mg/dL) 108 41 L 214 H Random Glucose Calcium Total Bilirubin AST ALT Alkaline Phosphatase Total Protein Albumin Globulin Albumin/Globulin Ratio 08/31/16 08/31/16 08/31/16 08:05 08:05 08:05 WBC 5.5 RBC 3.49 L Hgb 9.9 L Hct 29.7 L MCV 85.2 MCH 28.3 MCHC 33.3 RDW 16.6 H Plt Count 179 MPV 7.5 PT 11.8 INR 1.0 APTT 30 Sodium 137 Potassium 3.7 Chloride 103 Carbon Dioxide 24 Anion Gap 15 BUN 32 H Creatinine 1.4 Est GFR ( Amer) > 60 Est GFR (Non-Af Amer) 50 POC Glucose (mg/dL) Random Glucose 196 H Calcium 7.9 L Total Bilirubin 0.4 AST 15 L ALT 29 Alkaline Phosphatase 170 H D Total Protein 5.9 L Albumin 2.8 L Globulin 3.0 Albumin/Globulin Ratio 0.9 L 08/31/16 12:08 WBC RBC Hgb Hct MCV MCH MCHC RDW Plt Count MPV PT INR APTT Sodium Potassium Chloride Carbon Dioxide Anion Gap BUN Creatinine Est GFR ( Amer) Est GFR (Non-Af Amer) POC Glucose (mg/dL) 258 H Random Glucose Calcium Total Bilirubin AST ALT Alkaline Phosphatase Total Protein Albumin Globulin Albumin/Globulin Ratio Assessment & Plan - Assessment and Plan (Free Text) Assessment: 70yo M with PMHx of DM, HTN, pancreatitis secondary to etoh abuse who has carotid artery stenosis and is scheduled for Left carotid endarterectomy tomorrow - Afebrile, VSS - Carotid duplex on 05/01/16 showed 60-70% stenosis of left proximal ICA. - CT angio of neck on 05/05/16 showed severe calcified atherosclerotic plaque in left proximal internal carotid with hemodynamically significant stenosis. There was moderate calcified ahterosclerotic plaque in the right proximal ICA without evidence of hemodynamically significant stenosis - OR tomorrow for left CEA - NPO past midnight - Type and cross ordered - Consent in chart - Discussed plan with Dr. Maura Mckeon PGY-3
--- NOTE | 2016-08-31 22:24 | CP.PCM.PN ---
Subjective - Date & Time of Evaluation Date of Evaluation: 08/31/16 Time of Evaluation: 18:30 - Subjective Subjective: Patient seen and evaluated Scheduled for CEA tomorrow S/P cath Non critical CAD Normal EF Low to intermediate risk for cardiac events for CEA under General Anaesthesia Continue current meds Objective - Vital Signs/Intake and Output Vital Signs (last 24 hours): Temp Pulse Resp BP Pulse Ox 97.6 F 62 20 165/70 H 97 08/31/16 15:00 08/31/16 16:00 08/31/16 15:00 08/31/16 15:00 08/31/16 15:00 - Medications Medications: Current Medications Docusate Sodium (Colace) 100 mg PO DAILY [facility] Last Admin: 08/31/16 11:20 Dose: 100 mg Sodium Chloride (Sodium Chloride 0.9%) 1,000 mls @ 115 mls/hr IV .Q8H42M [facility] Insulin Human Regular (Novolin R) 0 unit SC ACHS [facility] PRN Reason: Protocol Last Admin: 08/31/16 22:19 Dose: Not Given Multivitamins/Minerals (Therapeutic-M Tab) 1 tab PO 0800 [facility] - Labs Labs: 08/31/16 08:05 08/31/16 08:05 PT 11.8 SECONDS (9.7-12.2) 08/31/16 08:05 INR 1.0 08/31/16 08:05 APTT 30 SECONDS (21-34) 08/31/16 08:05
[2016-09-01] MEDS ORDERED: ceFAZolin IV 1 gm in Dextrose 1 GM/50 ML BAG IVPB ONE (06:50)
[2016-09-01] MEDS ORDERED: HEPARIN-NS 5,000 UNITS/500 ML 5,000 UNIT/500 ML BAG IV ONE ×2 (06:50→09:41)
[2016-09-01] MEDS: Sodium Chloride 0.9% 1,000 ML IV SCH ×5 (06:53→20:59)
[2016-09-01] MEDS ORDERED: Lidocaine 1% Inj (20ml) ONE (07:20)
[2016-09-01] MEDS ORDERED: Thrombin Topical 20,000 Intl Units Spray Kit TOP ONE (07:26)
[2016-09-01] MEDS: (Novolin R) Insulin Human Regular 100 units/ml vial SC SCH ×4 (07:30→21:31)
[2016-09-01] MEDS ORDERED: (Novolin R) Insulin Human Regular 100 units/ml vial ONE (07:41)
[2016-09-01] MEDS ORDERED: Remifentanil 1 mg/3 ml Vial IV ONE (07:41)
[2016-09-01] MEDS ORDERED: Lactated Ringer's 1,000 ML IV ONE ×2 (07:45)
[2016-09-01] MEDS ORDERED: Bacitracin 50,000 UNIT in Sodium Chloride 0.9% Irrig 1,000 ML IR SCH (07:46)
[2016-09-01] MEDS ORDERED: Nitroglycerin 2% Ointment Foilpak UD TOP ONE (07:52)
[2016-09-01] MEDS ORDERED: Etomidate 20 mg/10ml Inj IV ONE (07:52)
[2016-09-01 07:53] LABS: BLOOD UREA NITROGEN 27 mg/dL (9-20); GFR AFRICAN-AMERICAN > 60; GFR NON-AFRICAN AMERICAN 55
[2016-09-01 07:54] LABS: BASO # 0.1 K/uL (0.0-0.2); BASO % 1.4 % (0.0-2.0); CALCIUM 8.3 mg/dl (8.6-10.4); EOS # 0.3 K/uL (0.0-0.7); EOS % 4.9 % (0.0-4.0); HEMOGLOBIN 10.2 g/dL (12.0-18.0); LYMPH % 16.4 % (20.0-40.0); MEAN CELL VOLUME 86.1 fL (80.0-94.0); MEAN CORPUSCULAR HEMOGLOBIN 28.4 pg (27.0-31.0); MEAN CORPUSCULAR HGB CONC 32.9 g/dL (33.0-37.0); MEAN PLATELET VOLUME 7.7 fL (7.2-11.7); MONO # 0.4 K/uL (0.0-0.8); MONO % 6.4 % (0.0-10.0); NEUT # 4.3 K/uL (1.8-7.0); NEUT % 70.9 % (50.0-75.0); RBC 3.61 Mil/uL (4.40-5.90); RED CELL DISTRIBUTION WIDTH 16.6 % (11.5-14.5); WHITE BLOOD COUNT 6.1 K/uL (4.8-10.8)
[2016-09-01] MEDS: Multivitamin With Minerals Tab PO SCH (08:00)
[2016-09-01] MEDS ORDERED: Propofol 10 mg/ml Inj (20 ML) ONE ×2 (08:08→08:52)
[2016-09-01] MEDS ORDERED: Midazolam 2 MG/2 ML VIAL ONE (08:53)
[2016-09-01] MEDS ORDERED: Neostigmine Methylsulfate 3mg/3ml Syringe IV ONE (09:47)
[2016-09-01] MEDS ORDERED: Rocuronium 10 mg/ml (5 ml) ONE (09:47)
[2016-09-01] MEDS ORDERED: Labetalol 25mg/5ml Syringe ONE (09:47)
[2016-09-01] MEDS ORDERED: HYDROmorphone 0.5 mg/0.5 ml ISec IVP PRN ×2 (10:20→15:25)
[2016-09-01] MEDS ORDERED: Bupivacaine HCl 0.5% PF (10 ml) Inj ONE (10:35)
[2016-09-01] MEDS ORDERED: Bupivacaine HCl 0.25% PF (10 ml) Inj ONE (10:37)
--- NOTE | 2016-09-01 10:56 | CARD ---
APPROVED REPORT EKG Measurement Heart [id number] <Conclusion> Sinus bradycardia with 1st degree AV block Left anterior fascicular block Septal infarct, age undetermined Inferior infarct, age undetermined Abnormal ECG
[2016-09-01] MEDS ORDERED: Oxycodone/Acetaminophen 5/325 mg Tab PO PRN (12:00)
[2016-09-01] MEDS ORDERED: Nitroglycerin 50mg in D5W 50 MG/250 ML BOTTLE IV SCH (12:00)
--- NOTE | 2016-09-01 12:09 | PCM.SURG1 ---
Surgeon's Initial Post Op Note - Surgeon's Notes Surgeon: Dr. Lorenzo Regional Sales Director: Dr. Zayas PGY-3, Dr. Zacarias PGY-2 Type of Anesthesia: General Endo Pre-Operative Diagnosis: Left carotid stenosis Operative Findings: see operative report Post-Operative Diagnosis: same Operation Performed: left carotid endarterectomy Specimen/Specimens Removed: carotid plaque Estimated Blood Loss: EBL {In ML}: 125 Blood Products Given: N/A Drains Used: Soham Post-Op Condition: Good Date of Surgery/Procedure: 09/01/16 Time of Surgery/Procedure: 08:00
[2016-09-01] MEDS ORDERED: Sodium Chloride 0.9% 1,000 ML IV ONE (13:00)
--- NOTE | 2016-09-01 17:41 | CP.PCM.PN ---
Subjective - Date & Time of Evaluation Date of Evaluation: 09/01/16 Time of Evaluation: 17:39 - Subjective Subjective: seen in icu s/p surgery end artrectom today Objective - Vital Signs/Intake and Output Vital Signs (last 24 hours): Temp Pulse Resp BP Pulse Ox 98 F 77 18 132/72 100 09/01/16 15:00 09/01/16 16:00 09/01/16 16:00 09/01/16 16:00 09/01/16 16:00 Intake and Output: 09/01/16 09/01/16 06:59 18:59 Intake Total 920 Output Total 400 Balance 520 - Medications Medications: Current Medications Amlodipine Besylate (Norvasc) 10 mg PO DAILY [facility] Aspirin (Aspirin) 325 mg PO DAILY [facility] Docusate Sodium (Colace) 100 mg PO DAILY [facility] Last Admin: 09/01/16 09:20 Dose: Not Given Duloxetine HCl (Cymbalta) 30 mg PO DAILY [facility] Glipizide (Glucotrol Xl) 2.5 mg PO ACB [facility] Sodium Chloride (Sodium Chloride 0.9%) 1,000 mls @ 115 mls/hr IV .Q8H42M [facility] Last Admin: 09/01/16 08:45 Dose: Not Given Nitroglycerin/Dextrose (Nitroglycerin 50 Mg/250 Ml D5w) 50 mg in 250 mls @ 1.5 mls/hr IV .Q24H [facility]; 5 MCG/MIN PRN Reason: Protocol Insulin Detemir (Levemir) 45 unit SC DAILY [facility] Insulin Human Regular (Novolin R) 0 unit SC ACHS [facility] PRN Reason: Protocol Last Admin: 09/01/16 12:40 Dose: 8 unit Metoprolol Tartrate (Lopressor) 100 mg PO BID [facility] Mirtazapine (Remeron) 30 mg PO HS [facility] Multivitamins/Minerals (Therapeutic-M Tab) 1 tab PO 0800 [facility] Last Admin: 09/01/16 08:00 Dose: Not Given Oxycodone/Acetaminophen (Percocet 5/325 Mg Tab) 1 tab PO Q4H PRN PRN Reason: Pain, moderate (4-7) Stop: 09/04/16 12:01 Oxycodone/Acetaminophen (Percocet 5/325 Mg Tab) 2 tab PO Q4H PRN PRN Reason: Pain, severe (8-10) Stop: 09/04/16 12:01 Pantoprazole Sodium (Protonix Ec Tab) 40 mg PO DAILY [facility] Rosuvastatin Calcium (Crestor) 10 mg PO QPM [facility] Tamsulosin HCl (Flomax) 0.4 mg PO DAILY [facility] - Labs Labs: 09/01/16 07:14 09/01/16 07:14 PT 11.8 SECONDS (9.7-12.2) 08/31/16 08:05 INR 1.0 08/31/16 08:05 APTT 30 SECONDS (21-34) 08/31/16 08:05 - Constitutional Appears: Non-toxic - Head Exam Head Exam: NORMAL INSPECTION - Eye Exam Eye Exam: Normal appearance Pupil Exam: NORMAL ACCOMODATION - ENT Exam ENT Exam: Mucous Membranes Moist - Neck Exam Additional comments: dressing left side neck - Respiratory Exam Respiratory Exam: Decreased Breath Sounds - Cardiovascular Exam Cardiovascular Exam: REGULAR RHYTHM - GI/Abdominal Exam GI & Abdominal Exam: Normal Bowel Sounds - Rectal Exam Rectal Exam: NORMAL INSPECTION - Exam Exam: NORMAL INSPECTION - Extremities Exam Extremities Exam: Normal Inspection - Back Exam Back Exam: NORMAL INSPECTION - Skin Skin Exam: Normal Color (vomited toay) Assessment and Plan - Assessment and Plan (Free Text) Assessment: s/p end artrectomy l carited vomiting dm Plan: cont as per orders
[2016-09-01] MEDS: Pantoprazole 40 mg EC Tab PO SCH (18:35)
--- NOTE | 2016-09-01 22:37 | CP.PCM.PN ---
Subjective - Date & Time of Evaluation Date of Evaluation: 09/01/16 Time of Evaluation: 17:25 - Subjective Subjective: Patient seen and evaluated S/P Left CEA No cardiac events noted Objective - Vital Signs/Intake and Output Vital Signs (last 24 hours): Temp Pulse Resp BP Pulse Ox 97.4 F L 67 14 122/53 L 99 09/01/16 20:00 09/01/16 22:15 09/01/16 22:15 09/01/16 22:15 09/01/16 22:15 Intake and Output: 09/01/16 09/02/16 18:59 06:59 Intake Total 190 560 Output Total 0 1025 Balance 190 -465 - Medications Medications: Current Medications Amlodipine Besylate (Norvasc) 10 mg PO DAILY [facility] Last Admin: 09/01/16 18:35 Dose: 10 mg Aspirin (Aspirin) 325 mg PO DAILY [facility] Docusate Sodium (Colace) 100 mg PO DAILY [facility] Last Admin: 09/01/16 09:20 Dose: Not Given Duloxetine HCl (Cymbalta) 30 mg PO DAILY [facility] Last Admin: 09/01/16 18:35 Dose: 30 mg Glipizide (Glucotrol Xl) 2.5 mg PO ACB [facility] Sodium Chloride (Sodium Chloride 0.9%) 1,000 mls @ 115 mls/hr IV .Q8H42M [facility] Last Admin: 09/01/16 20:59 Dose: 115 mls/hr Nitroglycerin/Dextrose (Nitroglycerin 50 Mg/250 Ml D5w) 50 mg in 250 mls @ 1.5 mls/hr IV .Q24H [facility]; 5 MCG/MIN PRN Reason: Protocol Last Admin: 09/01/16 17:38 Dose: Not Given Insulin Detemir (Levemir) 45 unit SC DAILY [facility] Insulin Human Regular (Novolin R) 0 unit SC ACHS [facility] PRN Reason: Protocol Last Admin: 09/01/16 21:31 Dose: 2 unit Metoclopramide HCl (Reglan) 10 mg IVP Q6 PRN PRN Reason: n/v, ALTERNATE WITH ZOFR[facility] Last Admin: 09/01/16 18:36 Dose: 10 mg Metoprolol Tartrate (Lopressor) 100 mg PO BID [facility] Last Admin: 09/01/16 18:35 Dose: 100 mg Mirtazapine (Remeron) 30 mg PO HS [facility] Last Admin: 09/01/16 21:17 Dose: 30 mg Multivitamins/Minerals (Therapeutic-M Tab) 1 tab PO 0800 [facility] Last Admin: 09/01/16 08:00 Dose: Not Given Ondansetron HCl (Zofran Inj) 4 mg IVP Q6H PRN PRN Reason: Nausea/Vomiting Oxycodone/Acetaminophen (Percocet 5/325 Mg Tab) 1 tab PO Q4H PRN PRN Reason: Pain, moderate (4-7) Stop: 09/04/16 12:01 Oxycodone/Acetaminophen (Percocet 5/325 Mg Tab) 2 tab PO Q4H PRN PRN Reason: Pain, severe (8-10) Stop: 09/04/16 12:01 Pantoprazole Sodium (Protonix Ec Tab) 40 mg PO DAILY [facility] Last Admin: 09/01/16 18:35 Dose: 40 mg Rosuvastatin Calcium (Crestor) 10 mg PO QPM [facility] Last Admin: 09/01/16 18:35 Dose: 10 mg Tamsulosin HCl (Flomax) 0.4 mg PO DAILY [facility] Last Admin: 09/01/16 18:35 Dose: 0.4 mg - Labs Labs: 09/01/16 07:14 09/01/16 07:14 PT 11.8 SECONDS (9.7-12.2) 08/31/16 08:05 INR 1.0 08/31/16 08:05 APTT 30 SECONDS (21-34) 08/31/16 08:05
[2016-09-02] MEDS: Sodium Chloride 0.9% 1,000 ML IV SCH ×2 (04:23→05:51)
[2016-09-02] MEDS: Oxycodone/Acetaminophen 5/325 mg Tab PO PRN (06:07)
[2016-09-02 06:24] LABS: BASO # 0.1 K/uL (0.0-0.2); BASO % 0.9 % (0.0-2.0); EOS # 0.2 K/uL (0.0-0.7); EOS % 3.5 % (0.0-4.0); HEMOGLOBIN 8.7 g/dL (12.0-18.0); INR 1.1; LYMPH # 0.8 K/uL (1.0-4.3); LYMPH % 12.5 % (20.0-40.0); MEAN CORPUSCULAR HEMOGLOBIN 28.8 pg (27.0-31.0); MEAN CORPUSCULAR HGB CONC 33.1 g/dL (33.0-37.0); MEAN PLATELET VOLUME 7.6 fL (7.2-11.7); MONO # 0.4 K/uL (0.0-0.8); MONO % 6.3 % (0.0-10.0); NEUT # 5.2 K/uL (1.8-7.0); NEUT % 76.8 % (50.0-75.0); RBC 3.01 Mil/uL (4.40-5.90); RED CELL DISTRIBUTION WIDTH 17.2 % (11.5-14.5); WHITE BLOOD COUNT 6.7 K/uL (4.8-10.8)
[2016-09-02 06:35] LABS: ALBUMIN 2.6 g/dL (3.5-5.0)
[2016-09-02 06:38] LABS: AST/SGOT 20 U/L (17-59); GFR AFRICAN-AMERICAN > 60; GFR NON-AFRICAN AMERICAN > 60
[2016-09-02 06:39] LABS: ALB/GLOB RATIO 0.9 (1.0-2.1); ALT/SGPT 26 U/L (21-72); BLOOD UREA NITROGEN 20 mg/dL (9-20); CALCIUM 7.9 mg/dl (8.6-10.4)
[2016-09-02] MEDS: (Novolin R) Insulin Human Regular 100 units/ml vial SC SCH ×4 (08:15→22:00)
[2016-09-02] MEDS: GlipiZIDE 2.5 mg SR Tab PO SCH (08:15)
[2016-09-02] MEDS: Multivitamin With Minerals Tab PO SCH (08:15)
--- NOTE | 2016-09-02 08:29 | CP.PCM.PN ---
Subjective - Date & Time of Evaluation Date of Evaluation: 09/02/16 Time of Evaluation: 07:00 - Subjective Subjective: Patient seen and examined this morning. Neck dressing saturated with dried blood. Neck dressing changed this morning and red rubber catheter was removed from neck. Patient is alert and oriented, able to move his upper extremities. Patient unable to void s/p surgery, English catheter in place ~900cc output. Objective - Vital Signs/Intake and Output Vital Signs (last 24 hours): Temp Pulse Resp BP Pulse Ox 98.2 F 76 17 126/59 L 97 09/02/16 04:00 09/02/16 07:00 09/02/16 07:00 09/02/16 06:22 09/02/16 07:00 Intake and Output: 09/02/16 09/02/16 06:59 18:59 Intake Total 1480 115 Output Total 2670 100 Balance -1190 15 - Medications Medications: Current Medications Amlodipine Besylate (Norvasc) 10 mg PO DAILY [facility] Last Admin: 09/01/16 18:35 Dose: 10 mg Aspirin (Aspirin) 325 mg PO DAILY [facility] Docusate Sodium (Colace) 100 mg PO DAILY [facility] Last Admin: 09/01/16 09:20 Dose: Not Given Duloxetine HCl (Cymbalta) 30 mg PO DAILY [facility] Last Admin: 09/01/16 18:35 Dose: 30 mg Glipizide (Glucotrol Xl) 2.5 mg PO ACB [facility] Last Admin: 09/02/16 08:15 Dose: 2.5 mg Sodium Chloride (Sodium Chloride 0.9%) 1,000 mls @ 115 mls/hr IV .Q8H42M [facility] Last Admin: 09/02/16 05:51 Dose: 115 mls/hr Nitroglycerin/Dextrose (Nitroglycerin 50 Mg/250 Ml D5w) 50 mg in 250 mls @ 1.5 mls/hr IV .Q24H [facility]; 5 MCG/MIN PRN Reason: Protocol Last Admin: 09/01/16 17:38 Dose: Not Given Insulin Detemir (Levemir) 45 unit SC DAILY [facility] Insulin Human Regular (Novolin R) 0 unit SC ACHS [facility] PRN Reason: Protocol Last Admin: 09/02/16 08:15 Dose: 3 unit Metoclopramide HCl (Reglan) 10 mg IVP Q6 PRN PRN Reason: n/v, ALTERNATE WITH [facility] Last Admin: 09/01/16 18:36 Dose: 10 mg Metoprolol Tartrate (Lopressor) 100 mg PO BID [facility] Last Admin: 09/01/16 18:35 Dose: 100 mg Mirtazapine (Remeron) 30 mg PO HS [facility] Last Admin: 09/01/16 21:17 Dose: 30 mg Multivitamins/Minerals (Therapeutic-M Tab) 1 tab PO 0800 [facility] Last Admin: 09/02/16 08:15 Dose: 1 tab Ondansetron HCl (Zofran Inj) 4 mg IVP Q6H PRN PRN Reason: Nausea/Vomiting Oxycodone/Acetaminophen (Percocet 5/325 Mg Tab) 1 tab PO Q4H PRN PRN Reason: Pain, moderate (4-7) Stop: 09/04/16 12:01 Last Admin: 09/02/16 06:07 Dose: 1 tab Oxycodone/Acetaminophen (Percocet 5/325 Mg Tab) 2 tab PO Q4H PRN PRN Reason: Pain, severe (8-10) Stop: 09/04/16 12:01 Pantoprazole Sodium (Protonix Ec Tab) 40 mg PO DAILY [facility] Last Admin: 09/01/16 18:35 Dose: 40 mg Rosuvastatin Calcium (Crestor) 10 mg PO QPM [facility] Last Admin: 09/01/16 18:35 Dose: 10 mg Tamsulosin HCl (Flomax) 0.4 mg PO DAILY [facility] Last Admin: 09/01/16 18:35 Dose: 0.4 mg - Labs Labs: 09/02/16 06:11 09/02/16 06:11 PT 12.0 SECONDS (9.7-12.2) 09/02/16 06:11 INR 1.1 09/02/16 06:11 APTT 29 SECONDS (21-34) 09/02/16 06:11 - Constitutional Appears: No Acute Distress - Head Exam Head Exam: NORMOCEPHALIC - Eye Exam Eye Exam: Normal appearance - ENT Exam ENT Exam: Mucous Membranes Moist - Respiratory Exam Respiratory Exam: NORMAL BREATHING PATTERN - Cardiovascular Exam Cardiovascular Exam: +S1, +S2 - GI/Abdominal Exam GI & Abdominal Exam: Soft - Neurological Exam Neurological Exam: Alert, Awake, Oriented x3 - Psychiatric Exam Psychiatric exam: Normal Mood - Skin Skin Exam: Intact, Normal Color Assessment and Plan - Assessment and Plan (Free Text) Assessment: 70M s/p Left CEA -Monitor neck site for bleeding -D/c arterial line, D/c english -If patient does not void ~2hrs s/p english removal , will administer flomax and monitor -Will advance diet as tolerated -D/w Dr. Lorenzo
[2016-09-02] MEDS ORDERED: Insulin Detemir 100 units/ml Vial (Levemir) SC SCH ×2 (10:00→22:00)
[2016-09-02] MEDS: Pantoprazole 40 mg EC Tab PO SCH (10:01)
--- NOTE | 2016-09-02 10:05 | CP.CCUPN ---
CCU Subjective - Physician Review Subjective (Free Text): 09/02/16 12:07 Patient seen and examined at bedside in the AM. Patient denies chest pain, shortness of breath, headache, nausea or vomiting. Patient stated he has only been able to void a little since the english has been removed. CCU Objective - Vital Signs / Intake & Output Vital Signs (Last 4 hours): Vital Signs Temp Pulse Resp BP Pulse Ox 09/02/16 09:00 77 13 98 09/02/16 08:14 67 13 100/55 L 98 09/02/16 08:00 97.7 F 69 14 98 09/02/16 07:47 78 12 139/62 99 09/02/16 07:19 66 14 122/57 L 98 09/02/16 07:15 68 13 119/60 98 09/02/16 07:00 76 17 97 09/02/16 06:22 72 15 126/59 L 98 Intake and Output (Last 8hrs): Intake & Output 09/01/16 09/02/16 09/02/16 22:59 06:59 14:59 Intake Total 750 920 297.5 Output Total 1025 1645 305 Balance -275 -725 -7.5 Weight 143 lb Intake: Intake, IV Amount 575 920 297.5 Left Wrist 115 10 Right Hand 460 920 287.5 Oral 175 Output: Urine 1025 1645 305 Urethral (English) 975 1645 305 Urine, Voided 50 Other: # Bowel Movements 0 - Physical Exam Head: Positive for: Normocephalic Extroacular Muscles: Positive for: EOMI Conjunctiva: Positive for: Normal Mouth: Positive for: Moist Mucous Membranes Respiratory/Chest: Positive for: Clear to Auscultation, Good Air Exchange. Negative for: Respiratory Distress, Wheezes Cardiovascular: Positive for: Regular Rate and Rhythm, Murmurs (aortic stenosis - systolic murmur ), Normal S1, S2 Abdomen: Positive for: Normal Bowel Sounds. Negative for: Tenderness, Distention Upper Extremity: Positive for: Normal Inspection. Negative for: Edema Lower Extremity: Positive for: Normal Inspection. Negative for: Edema, CALF TENDERNESS, Tenderness Neurological: Positive for: GCS=15, Speech Normal Skin: Positive for: Warm, Dry, Normal Color Psychiatric: Positive for: Alert, Oriented x 3, Normal Insight, Normal Concentration - Medications Active Medications: Active Medications Generic Name Dose Route Start Last Admin Trade Name Freq PRN Reason Stop Dose Admin Amlodipine Besylate 10 mg 09/01/16 13:00 09/02/16 10:02 Norvasc PO 10 mg DAILY LADONNA Administration Aspirin 325 mg 09/02/16 10:00 09/02/16 10:01 Aspirin PO 325 mg DAILY LADONNA Administration Docusate Sodium 100 mg 08/30/16 12:00 09/02/16 10:01 Colace PO 100 mg DAILY LADONNA Administration Duloxetine HCl 30 mg 09/01/16 13:00 09/02/16 10:01 Cymbalta PO 30 mg DAILY LADONNA Administration Glipizide 2.5 mg 09/02/16 07:30 09/02/16 08:15 Glucotrol Xl PO 2.5 mg ACB LADONNA Administration Sodium Chloride 1,000 mls @ 115 mls/hr 08/31/16 23:55 09/02/16 05:51 Sodium Chloride 0.9% IV 115 mls/hr .[id number] LADONNA Administration Nitroglycerin/Dextrose 50 mg in 250 mls @ 1.5 mls/hr 09/01/16 12:00 09/01/16 17:38 Nitroglycerin 50 Mg/250 Ml D5w IV Not Given .Q24H LADONNA Protocol 5 MCG/MIN Insulin Detemir 45 unit 09/02/16 22:00 Levemir SC DAILY LADONNA Insulin Human Regular 0 unit 08/30/16 11:30 09/02/16 08:15 Novolin R SC 3 unit ACHS LADONNA Administration Protocol Metoclopramide HCl 10 mg 09/01/16 18:20 09/01/16 18:36 Reglan IVP 10 mg Q6 PRN Administration n/v, ALTERNATE WITH ZOFRAN Metoprolol Tartrate 100 mg 09/01/16 18:00 09/02/16 10:02 Lopressor PO 100 mg BID LADONNA Administration Mirtazapine 30 mg 09/01/16 22:00 09/01/16 21:17 Remeron PO 30 mg HS LADONNA Administration Multivitamins/Minerals 1 tab 09/01/16 08:00 09/02/16 08:15 Therapeutic-M Tab PO 1 tab 0800 LADONNA Administration Ondansetron HCl 4 mg 09/01/16 17:45 Zofran Inj IVP Q6H PRN Nausea/Vomiting Oxycodone/Acetaminophen 1 tab 09/01/16 12:00 09/02/16 06:07 Percocet 5/325 Mg Tab PO 09/04/16 12:01 1 tab Q4H PRN Administration Pain, moderate (4-7) Oxycodone/Acetaminophen 2 tab 09/01/16 12:00 Percocet 5/325 Mg Tab PO 09/04/16 12:01 Q4H PRN Pain, severe (8-10) Pantoprazole Sodium 40 mg 09/01/16 13:15 09/02/16 10:01 Protonix Ec Tab PO 40 mg DAILY LADONNA Administration Rosuvastatin Calcium 10 mg 09/01/16 18:00 09/01/16 18:35 Crestor PO 10 mg QPM LADONNA Administration Tamsulosin HCl 0.4 mg 09/01/16 12:15 09/02/16 10:01 Flomax PO 0.4 mg DAILY LADONNA Administration - Patient Studies Lab Studies: Lab Studies 09/02/16 09/02/16 09/02/16 Range/Units 07:14 06:11 06:11 WBC (4.8-10.8) K/uL RBC (4.40-5.90) Mil/uL Hgb (12.0-18.0) g/dL Hct (35.0-51.0) % MCV (80.0-94.0) fL MCH (27.0-31.0) pg MCHC (33.0-37.0) g/dL RDW (11.5-14.5) % Plt Count (130-400) K/uL MPV (7.2-11.7) fL Neut % (Auto) (50.0-75.0) % Lymph % (Auto) (20.0-40.0) % [place] % (Auto) (0.0-10.0) % Eos % (Auto) (0.0-4.0) % Baso % (Auto) (0.0-2.0) % Neut # (1.8-7.0) K/uL Lymph # (1.0-4.3) K/uL [place] # (0.0-0.8) K/uL Eos # (0.0-0.7) K/uL Baso # (0.0-0.2) K/uL PT 12.0 (9.7-12.2) SECONDS INR 1.1 APTT 29 (21-34) SECONDS Sodium 139 (132-148) mmol/L Potassium 4.2 (3.6-5.2) mmol/L Chloride 108 H (98-107) mmol/L Carbon Dioxide 21 L (22-30) mmol/L Anion Gap 14 (10-20) BUN 20 (9-20) mg/dL Creatinine 1.1 (0.8-1.5) MG/DL Est GFR ( Amer) > 60 Est GFR (Non-Af Amer) > 60 POC Glucose (mg/dL) 230 H (65-110) mg/dL Random Glucose 180 H (75-110) mg/dL Calcium 7.9 L (8.6-10.4) mg/dl Total Bilirubin 0.6 (0.2-1.3) mg/dL AST 20 (17-59) U/L ALT 26 (21-72) U/L Alkaline Phosphatase 153 H (38-126) U/L Total Protein 5.6 L (6.3-8.3) g/dL Albumin 2.6 L (3.5-5.0) g/dL Globulin 3.0 (2.2-3.9) gm/dL Albumin/Globulin Ratio 0.9 L (1.0-2.1) 09/02/16 09/01/16 09/01/16 Range/Units 06:11 21:27 16:34 WBC 6.7 (4.8-10.8) K/uL RBC 3.01 L (4.40-5.90) Mil/uL Hgb 8.7 L (12.0-18.0) g/dL Hct 26.2 L (35.0-51.0) % MCV 87.0 (80.0-94.0) fL MCH 28.8 (27.0-31.0) pg MCHC 33.1 (33.0-37.0) g/dL RDW 17.2 H (11.5-14.5) % Plt Count 162 (130-400) K/uL MPV 7.6 (7.2-11.7) fL Neut % (Auto) 76.8 H (50.0-75.0) % Lymph % (Auto) 12.5 L (20.0-40.0) % [place] % (Auto) 6.3 (0.0-10.0) % Eos % (Auto) 3.5 (0.0-4.0) % Baso % (Auto) 0.9 (0.0-2.0) % Neut # 5.2 (1.8-7.0) K/uL Lymph # 0.8 L (1.0-4.3) K/uL [place] # 0.4 (0.0-0.8) K/uL Eos # 0.2 (0.0-0.7) K/uL Baso # 0.1 (0.0-0.2) K/uL PT (9.7-12.2) SECONDS INR APTT (21-34) SECONDS Sodium (132-148) mmol/L Potassium (3.6-5.2) mmol/L Chloride (98-107) mmol/L Carbon Dioxide (22-30) mmol/L Anion Gap (10-20) BUN (9-20) mg/dL Creatinine (0.8-1.5) MG/DL Est GFR ( Amer) Est GFR (Non-Af Amer) POC Glucose (mg/dL) 322 H 243 H (65-110) mg/dL Random Glucose (75-110) mg/dL Calcium (8.6-10.4) mg/dl Total Bilirubin (0.2-1.3) mg/dL AST (17-59) U/L ALT (21-72) U/L Alkaline Phosphatase (38-126) U/L Total Protein (6.3-8.3) g/dL Albumin (3.5-5.0) g/dL Globulin (2.2-3.9) gm/dL Albumin/Globulin Ratio (1.0-2.1) 09/01/16 Range/Units 12:27 WBC (4.8-10.8) K/uL RBC (4.40-5.90) Mil/uL Hgb (12.0-18.0) g/dL Hct (35.0-51.0) % MCV (80.0-94.0) fL MCH (27.0-31.0) pg MCHC (33.0-37.0) g/dL RDW (11.5-14.5) % Plt Count (130-400) K/uL MPV (7.2-11.7) fL Neut % (Auto) (50.0-75.0) % Lymph % (Auto) (20.0-40.0) % [place] % (Auto) (0.0-10.0) % Eos % (Auto) (0.0-4.0) % Baso % (Auto) (0.0-2.0) % Neut # (1.8-7.0) K/uL Lymph # (1.0-4.3) K/uL [place] # (0.0-0.8) K/uL Eos # (0.0-0.7) K/uL Baso # (0.0-0.2) K/uL PT (9.7-12.2) SECONDS INR APTT (21-34) SECONDS Sodium (132-148) mmol/L Potassium (3.6-5.2) mmol/L Chloride (98-107) mmol/L Carbon Dioxide (22-30) mmol/L Anion Gap (10-20) BUN (9-20) mg/dL Creatinine (0.8-1.5) MG/DL Est GFR ( Amer) Est GFR (Non-Af Amer) POC Glucose (mg/dL) 378 H (65-110) mg/dL Random Glucose (75-110) mg/dL Calcium (8.6-10.4) mg/dl Total Bilirubin (0.2-1.3) mg/dL AST (17-59) U/L ALT (21-72) U/L Alkaline Phosphatase (38-126) U/L Total Protein (6.3-8.3) g/dL Albumin (3.5-5.0) g/dL Globulin (2.2-3.9) gm/dL Albumin/Globulin Ratio (1.0-2.1) Laboratory Results - last 24 hr 09/01/16 09/01/16 09/01/16 12:27 16:34 21:27 WBC RBC Hgb Hct MCV MCH MCHC RDW Plt Count MPV Neut % (Auto) Lymph % (Auto) [place] % (Auto) Eos % (Auto) Baso % (Auto) Neut # Lymph # [place] # Eos # Baso # PT INR APTT Sodium Potassium Chloride Carbon Dioxide Anion Gap BUN Creatinine Est GFR ( Amer) Est GFR (Non-Af Amer) POC Glucose (mg/dL) 378 H 243 H 322 H Random Glucose Calcium Total Bilirubin AST ALT Alkaline Phosphatase Total Protein Albumin Globulin Albumin/Globulin Ratio 09/02/16 09/02/16 09/02/16 06:11 06:11 06:11 WBC 6.7 RBC 3.01 L Hgb 8.7 L Hct 26.2 L MCV 87.0 MCH 28.8 MCHC 33.1 RDW 17.2 H Plt Count 162 MPV 7.6 Neut % (Auto) 76.8 H Lymph % (Auto) 12.5 L [place] % (Auto) 6.3 Eos % (Auto) 3.5 Baso % (Auto) 0.9 Neut # 5.2 Lymph # 0.8 L [place] # 0.4 Eos # 0.2 Baso # 0.1 PT 12.0 INR 1.1 APTT 29 Sodium 139 Potassium 4.2 Chloride 108 H Carbon Dioxide 21 L Anion Gap 14 BUN 20 Creatinine 1.1 Est GFR ( Amer) > 60 Est GFR (Non-Af Amer) > 60 POC Glucose (mg/dL) Random Glucose 180 H Calcium 7.9 L Total Bilirubin 0.6 AST 20 ALT 26 Alkaline Phosphatase 153 H Total Protein 5.6 L Albumin 2.6 L Globulin 3.0 Albumin/Globulin Ratio 0.9 L 09/02/16 07:14 WBC RBC Hgb Hct MCV MCH MCHC RDW Plt Count MPV Neut % (Auto) Lymph % (Auto) [place] % (Auto) Eos % (Auto) Baso % (Auto) Neut # Lymph # [place] # Eos # Baso # PT INR APTT Sodium Potassium Chloride Carbon Dioxide Anion Gap BUN Creatinine Est GFR ( Amer) Est GFR (Non-Af Amer) POC Glucose (mg/dL) 230 H Random Glucose Calcium Total Bilirubin AST ALT Alkaline Phosphatase Total Protein Albumin Globulin Albumin/Globulin Ratio Fingerstick Blood Sugar Results: 230 Review of Systems - Constitutional Constitutional: absent: Fever - Cardiovascular Cardiovascular: absent: Chest Pain, Dyspnea, Palpitations - Respiratory Respiratory: absent: Dyspnea - Gastrointestinal Gastrointestinal: absent: Constipation, Diarrhea, Nausea, Vomiting - Genitourinary Genitourinary: Difficulty Urinating - Neurological Neurological: absent: Dizziness, Headaches Critical Care Progress Note - Nutrition Nutrition: Nutrition Category Date Time Status Heart Healthy Diet [DIET] Diets 09/02/16 Lunch Active Assessment/Plan - Assessment and Plan (Free Text) Plan: Neuro: -No acute issues -Alert and oriented 3 Pulm: - Chest X-ray (08/29): No active disease. No significant interval changed compared to the prior examination. CV: - Cardiology Consult: Dr. Elliott --> help appreciated - s/p Left CEA - Surgery Consult: Dr. Lorenzo --> help appreciated - s/p left carotid endarterectomy 09/01/16 - Monitor neck site for bleeding Heme: - H/H (09/02): 8.7/26.2; H/H (09/01): 10.2/31.1 Renal: - BUN/Cr (09/02): 20/1.1; BUN/Cr (09/01): 27/1.3 - English removed per surgery - Monitor GI: - Heart Healthy Diet as tolerated DVT proph - SCDs GI proph - Pepcid 20mg PO BID Disposition: Transferred to Regular Medical Floor Code status - full code Case discussed with Dr. Rishabh Rico PGY-1
[2016-09-02] MEDS ORDERED: Sodium Chloride 0.9% 1,000 ML IV SCH (11:23)
[2016-09-02] MEDS: Enoxaparin 40 mg Syringe SC SCH (12:30)
--- NOTE | 2016-09-02 22:41 | CP.PCM.PN ---
Subjective - Date & Time of Evaluation Date of Evaluation: 09/02/16 Time of Evaluation: 18:00 - Subjective Subjective: Patient seen and evaluated S/P Left CEA No cardiac events noted Objective - Vital Signs/Intake and Output Vital Signs (last 24 hours): Temp Pulse Resp BP Pulse Ox 97.5 F L 80 16 114/50 L 98 09/02/16 16:00 09/02/16 17:58 09/02/16 10:00 09/02/16 17:58 09/02/16 13:10 Intake and Output: 09/02/16 09/03/16 18:59 06:59 Intake Total 297.5 Output Total 755 Balance -457.5 - Medications Medications: Current Medications Amlodipine Besylate (Norvasc) 10 mg PO DAILY [facility] Last Admin: 09/02/16 10:02 Dose: 10 mg Aspirin (Aspirin) 325 mg PO DAILY [facility] Last Admin: 09/02/16 10:01 Dose: 325 mg Docusate Sodium (Colace) 100 mg PO DAILY [facility] Last Admin: 09/02/16 10:01 Dose: 100 mg Duloxetine HCl (Cymbalta) 30 mg PO DAILY [facility] Last Admin: 09/02/16 10:01 Dose: 30 mg Enoxaparin Sodium (Lovenox) 40 mg SC DAILY [facility] Last Admin: 09/02/16 12:30 Dose: 40 mg Glipizide (Glucotrol Xl) 2.5 mg PO ACB [facility] Last Admin: 09/02/16 08:15 Dose: 2.5 mg Insulin Detemir (Levemir) 45 unit SC DAILY [facility] Last Admin: 09/02/16 22:20 Dose: 45 unit Insulin Human Regular (Novolin R) [address] [facility] PRN Reason: Protocol Last Admin: 09/02/16 17:55 Dose: 6 unit Metoclopramide HCl (Reglan) 10 mg IVP Q6 PRN PRN Reason: n/v, ALTERNATE WITH ZOFRAN Last Admin: 09/01/16 18:36 Dose: 10 mg Metoprolol Tartrate (Lopressor) 100 mg PO BID [facility] Last Admin: 09/02/16 17:55 Dose: 100 mg Mirtazapine (Remeron) 30 mg PO HS [facility] Last Admin: 09/02/16 22:21 Dose: 30 mg Multivitamins/Minerals (Therapeutic-M Tab) 1 tab PO 0800 [facility] Last Admin: 09/02/16 08:15 Dose: 1 tab Ondansetron HCl (Zofran Inj) 4 mg IVP Q6H PRN PRN Reason: Nausea/Vomiting Last Admin: 09/02/16 09:12 Dose: 4 mg Oxycodone/Acetaminophen (Percocet 5/325 Mg Tab) 1 tab PO Q4H PRN PRN Reason: Pain, moderate (4-7) Stop: 09/04/16 12:01 Last Admin: 09/02/16 06:07 Dose: 1 tab Oxycodone/Acetaminophen (Percocet 5/325 Mg Tab) 2 tab PO Q4H PRN PRN Reason: Pain, severe (8-10) Stop: 09/04/16 12:01 Last Admin: 09/02/16 21:14 Dose: 2 tab Pantoprazole Sodium (Protonix Ec Tab) 40 mg PO DAILY [facility] Last Admin: 09/02/16 10:01 Dose: 40 mg Rosuvastatin Calcium (Crestor) 10 mg PO QPM [facility] Last Admin: 09/02/16 17:55 Dose: 10 mg Tamsulosin HCl (Flomax) 0.4 mg PO DAILY [facility] Last Admin: 09/02/16 10:01 Dose: 0.4 mg - Labs Labs: 09/02/16 06:11 09/02/16 06:11 PT 12.0 SECONDS (9.7-12.2) 09/02/16 06:11 INR 1.1 09/02/16 06:11 APTT 29 SECONDS (21-34) 09/02/16 06:11
[2016-09-03] MEDS: Oxycodone/Acetaminophen 5/325 mg Tab PO PRN (05:57)
[2016-09-03 06:29] LABS: BASO # 0.1 K/uL (0.0-0.2); BASO % 1.5 % (0.0-2.0); EOS # 0.3 K/uL (0.0-0.7); EOS % 5.2 % (0.0-4.0); HEMOGLOBIN 8.2 g/dL (12.0-18.0); LYMPH # 1.3 K/uL (1.0-4.3); LYMPH % 21.8 % (20.0-40.0); MEAN CELL VOLUME 87.7 fL (80.0-94.0); MEAN CORPUSCULAR HEMOGLOBIN 28.8 pg (27.0-31.0); MEAN CORPUSCULAR HGB CONC 32.8 g/dL (33.0-37.0); MEAN PLATELET VOLUME 7.6 fL (7.2-11.7); MONO # 0.5 K/uL (0.0-0.8); MONO % 7.5 % (0.0-10.0); NEUT # 3.9 K/uL (1.8-7.0); RBC 2.85 Mil/uL (4.40-5.90); RED CELL DISTRIBUTION WIDTH 17.2 % (11.5-14.5); WHITE BLOOD COUNT 6.2 K/uL (4.8-10.8)
[2016-09-03 06:34] LABS: PROTHROMBIN TIME 11.2 SECONDS (9.7-12.2)
[2016-09-03 06:35] LABS: ALBUMIN 2.7 g/dL (3.5-5.0)
[2016-09-03 06:38] LABS: ALB/GLOB RATIO 0.9 (1.0-2.1)
[2016-09-03 06:39] LABS: CALCIUM 7.9 mg/dl (8.6-10.4)
[2016-09-03] MEDS ORDERED: Benzocaine/Menthol (Cepacol) Lozenge MT PRN (07:00)
[2016-09-03] MEDS ORDERED: Dextrose 50% SYRINGE Inj (50 ml) IV STA (07:09)
[2016-09-03] MEDS: (Novolin R) Insulin Human Regular 100 units/ml vial SC SCH ×2 (07:59→12:17)
[2016-09-03] MEDS: GlipiZIDE 2.5 mg SR Tab PO SCH (08:00)
[2016-09-03 08:05] VITALS: O2SAT 97
[2016-09-03] MEDS: Multivitamin With Minerals Tab PO SCH (08:56)
[2016-09-03] MEDS: Pantoprazole 40 mg EC Tab PO SCH (09:51)
[2016-09-03] MEDS: Enoxaparin 40 mg Syringe SC SCH (09:52)
[2016-09-03 10:03] VITALS: RESP 18
[2016-09-03 12:32] VITALS: BP 106/42; PULSE 58; TEMP 97.5
--- NOTE | 2016-09-03 13:49 | CP.PCM.DIS ---
Provider - Provider Date of Admission: 08/30/16 17:30 Attending physician: Noé Lorenzo Jr, MD Primary care physician: None Consults: Cardio-Earl Time Spent in preparation of Discharge (in minutes): 60 Hospital Course - Lab Results Lab Results: Most Recent Lab Values WBC 6.2 K/uL (4.8-10.8) 09/03/16 06:20 RBC 2.85 Mil/uL (4.40-5.90) L 09/03/16 06:20 Hgb 8.2 g/dL (12.0-18.0) L 09/03/16 06:20 Hct 25.0 % (35.0-51.0) L 09/03/16 06:20 MCV 87.7 fL (80.0-94.0) 09/03/16 06:20 MCH 28.8 pg (27.0-31.0) 09/03/16 06:20 MCHC 32.8 g/dL (33.0-37.0) L 09/03/16 06:20 RDW 17.2 % (11.5-14.5) H 09/03/16 06:20 Plt Count 173 K/uL (130-400) 09/03/16 06:20 MPV 7.6 fL (7.2-11.7) 09/03/16 06:20 Neut % (Auto) 64.0 % (50.0-75.0) 09/03/16 06:20 Lymph % (Auto) 21.8 % (20.0-40.0) 09/03/16 06:20 [place] % (Auto) 7.5 % (0.0-10.0) 09/03/16 06:20 Eos % (Auto) 5.2 % (0.0-4.0) H 09/03/16 06:20 Baso % (Auto) 1.5 % (0.0-2.0) 09/03/16 06:20 Neut # 3.9 K/uL (1.8-7.0) 09/03/16 06:20 Lymph # 1.3 K/uL (1.0-4.3) 09/03/16 06:20 [place] # 0.5 K/uL (0.0-0.8) 09/03/16 06:20 Eos # 0.3 K/uL (0.0-0.7) 09/03/16 06:20 Baso # 0.1 K/uL (0.0-0.2) 09/03/16 06:20 PT 11.2 SECONDS (9.7-12.2) 09/03/16 06:20 INR 1.0 09/03/16 06:20 APTT 30 SECONDS (21-34) 09/03/16 06:20 Sodium 138 mmol/L (132-148) 09/03/16 06:20 Potassium 4.2 mmol/L (3.6-5.2) 09/03/16 06:20 Chloride 108 mmol/L (98-107) H 09/03/16 06:20 Carbon Dioxide 24 mmol/L (22-30) 09/03/16 06:20 Anion Gap 10 (10-20) 09/03/16 06:20 BUN 23 mg/dL (9-20) H 09/03/16 06:20 Creatinine 1.7 MG/DL (0.8-1.5) H 09/03/16 06:20 Est GFR ( Amer) 49 09/03/16 06:20 Est GFR (Non-Af Amer) 40 09/03/16 06:20 POC Glucose (mg/dL) 187 mg/dL (65-110) H 09/03/16 12:10 Random Glucose 40 mg/dL (75-110) L* D 09/03/16 06:20 Calcium 7.9 mg/dl (8.6-10.4) L 09/03/16 06:20 Total Bilirubin 0.3 mg/dL (0.2-1.3) 09/03/16 06:20 AST 17 U/L (17-59) 09/03/16 06:20 ALT 24 U/L (21-72) 09/03/16 06:20 Alkaline Phosphatase 126 U/L (38-126) 09/03/16 06:20 Total Protein 5.8 g/dL (6.3-8.3) L 09/03/16 06:20 Albumin 2.7 g/dL (3.5-5.0) L 09/03/16 06:20 Globulin 3.0 gm/dL (2.2-3.9) 09/03/16 06:20 Albumin/Globulin Ratio 0.9 (1.0-2.1) L 09/03/16 06:20 Blood Type O POSITIVE 09/01/16 07:14 Antibody Screen Negative 09/01/16 07:14 - Hospital Course Hospital Course: 70M admitted to hospital for syncope, 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 Pt taken to OR for Left carotidendarterectomy. No complications. Pt tolerated procedure well. Patient stable and ready for discharge home. - Date & Time of H&P Date of H&P: 08/30/16 Time of H&P: 10:55 Discharge Exam - Head Exam Head Exam: ATRAUMATIC, NORMAL INSPECTION, NORMOCEPHALIC - Eye Exam Eye Exam: EOMI, Normal appearance - ENT Exam ENT Exam: Mucous Membranes Moist - Neck Exam Additional comments: Left neck dressing in place with scant sanguinous strike through - Respiratory Exam Respiratory Exam: Clear to PA & Lateral, NORMAL BREATHING PATTERN, UNREMARKABLE - Cardiovascular Exam Cardiovascular Exam: REGULAR RHYTHM, +S1, +S2 - GI/Abdominal Exam GI & Abdominal Exam: Normal Bowel Sounds, Soft, Unremarkable. absent: Tenderness - Extremities Exam Extremities exam: full ROM - Neurological Exam Neurological exam: Alert, CN II-XII Intact, Oriented x3 - Psychiatric Exam Psychiatric exam: Normal Affect, Normal Mood - Skin Skin Exam: Dry, Normal Color, Warm Discharge Plan - Follow Up Plan Condition: STABLE Disposition: HOME/ ROUTINE Instructions: Heart Healthy Diet (DC), Carotid Endarterectomy (DC), Carotid Artery Disease (DC) Additional Instructions: Follow up with primary in 1-2 weeks. Follow up with Dr. Lorenzo in 1-2 weeks. Can shower. Do not bathe or soak incisions. Referrals: Jagjit Elliott MD [Staff Provider] - Litzy Fields MD [Staff Provider] - Noé Lorenzo Jr., MD [Staff Provider] -
[2016-09-03] MEDS ORDERED: Insulin Detemir 100 units/ml Vial (Levemir) SC SCH (22:00)
--- NOTE | 2016-09-03 22:22 | CP.PCM.PN ---
Subjective - Date & Time of Evaluation Date of Evaluation: 09/03/16 Time of Evaluation: 08:20 - Subjective Subjective: Patient seen and evaluated Comfortable For discharge today Objective - Vital Signs/Intake and Output Vital Signs (last 24 hours): Temp Pulse Resp BP Pulse Ox 97.5 F L 58 L 18 106/42 L 97 09/03/16 12:31 09/03/16 12:31 09/03/16 12:31 09/03/16 12:31 09/03/16 10:00 Intake and Output: 09/03/16 09/04/16 18:59 06:59 Intake Total 800 Output Total 425 Balance 375 - Labs Labs: 09/03/16 06:20 09/03/16 06:20 PT 11.2 SECONDS (9.7-12.2) 09/03/16 06:20 INR 1.0 09/03/16 06:20 APTT 30 SECONDS (21-34) 09/03/16 06:20
== END 2016-09-03 14:45 | disposition home or self-care (01) | DRG 39 ==
LOC: C.ER 08:26 → C.9E 10:13 → C.3T 11:27 → C.6T 14:23 → OBSVTOIN 08-30 17:30 → C.9S 09-01 11:24 → C.9I 09-01 17:28
PROVIDERS: ADMIT Surgery Vascular Surgery; ATTEND Surgery Vascular Surgery
PROC: 03CN0ZZ Extirpation of Matter from Left External Carotid Artery, Open Approach (ICD-10-PCS; principal; 2016-09-03)
PROC: 03CL0ZZ Extirpation of Matter from Left Internal Carotid Artery, Open Approach (ICD-10-PCS; 2016-09-03)
PROC: 03UL0JZ Supplement Left Internal Carotid Artery with Synthetic Substitute, Open Approach (ICD-10-PCS; 2016-09-03)
DX: I65.22 Occlusion and stenosis of left carotid artery (principal); E11.649 Type 2 diabetes mellitus with hypoglycemia without coma; I10 Essential (primary) hypertension; I25.10 Atherosclerotic heart disease of native coronary artery without angina pectoris; I44.0 Atrioventricular block, first degree; H54.0 Blindness, both eyes; F10.10 Alcohol abuse, uncomplicated; F17.210 Nicotine dependence, cigarettes, uncomplicated; Z91.81 History of falling; Z68.21 Body mass index [BMI] 21.0-21.9, adult

== ENCOUNTER 2016-09-20 09:56 | Inpatient (IN) | payer MEDICARE, OTHER ==
[2016-09-20 09:56] VITALS: BMI 22.1
--- NOTE | 2016-09-20 10:27 | C.PDOC ---
History Of Present Illness REFERRED DR DENIS FOR CT ANGIO R LEG +R [place] IN COMMON FEMORAL ARTERY. S/ P CAROTID ENDARTERECTOMY AND CARDIAC CATH 2 WEEKS AGO, PS SINCE THEN W NEW ONSET R LEG PAIN. INTERMIT, ENTIRE LEG. CURRENTLY IMPROVED COMPARED TO PRIOR. NO FEVER. NO GROIN WOUND INFECTION, SWELLING. EXAM MILD DIST NONTOXIC ABD NEG SKIN NO SWELL, BRUISING, INFECTION R GROIN EXT RLE NONTEND. LIMITED ROM R ANKLE DUE TO PAIN. AROM R KNEE, HIP WO DIFF. NO SWELL. +PALLOR R FOOT COMPARED TO LEFT. REMAINDER NEG Time Seen by Provider: 09/20/16 10:16 Chief Complaint (Nursing): Lower Extremity Problem/Injury Past Medical History Vital Signs: Last Vital Signs Temp 97.7 F 09/20/16 10:06 Pulse 96 H 09/20/16 10:06 Resp 18 09/20/16 10:06 BP 95/62 L 09/20/16 10:06 Pulse Ox 100 09/20/16 10:28 - Medical History PMH: Depression, HTN, Pancreatitis Denies: Chronic Kidney Disease - [facility] EXTIRPATION OF MATTER FROM L EXT CAROTID, OPEN APPROACH (08/30/16) EXTIRPATION OF MATTER FROM L INT CAROTID, OPEN APPROACH (08/30/16) INSERT OF MONITOR DEV INTO CHEST SUBCU/FASCIA, PERC APPROACH (05/02/16) REPAIR FACE SKIN, EXTERNAL APPROACH (05/02/16) SUPPLEMENT L INT CAROTID WITH SYNTH SUB, OPEN APPROACH (08/30/16) Family History: States: Unknown Family Hx - Social History Hx Tobacco Use: Yes Hx Alcohol Use: No Hx Substance Use: No - Immunization History Hx Tetanus Toxoid Vaccination: No (unsure) Hx Influenza Vaccination: No (unsure) Hx Pneumococcal Vaccination: No (unsure) ED Course And Treatment O2 Sat by Pulse Oximetry: 100 Progress - Re-Evaluation Re-evaluation Note: 09/20/16 10:27 D/W DR DENIS: CT ANGIO R LEG; HEPARIN. PLAN D/W DR HARMON BY DR DENIS. ADMIT MED SKETCH MAKER. 09/20/16 10:40 D/W DR Mary CLAYTON MED SKETCH MAKER, WILL ADMIT DR DENIS STATES IS AWARE OF R FOOT PALLOR - Data Reviewed Data Reviewed: Lab, Diagnostic imaging, EKG, Old records - Continuity of Care Discussed patient case with:: Patient, On-call PMD-pt unassigned Discussed pt. case with international travel consultant/specialty: Vascular Surgery Disposition Counseled Patient/Family Regarding: Studies Performed, Diagnosis - Disposition Disposition: HOSPITALIZED Disposition Time: 10:41 Condition: STABLE Forms: [facility] (Citizen Of [place]) - POA Present On Arrival: None - Clinical Impression Clinical Impression: Femoral artery thrombosis, right, Claudication Decision To Admit - Pt Status Changed To: Hospital Disposition Of: Inpatient - Admit Certification Admit to Inpatient:: After my assessment, the patient will require hospitalization for at least two midnights. This is because of the severity of symptoms shown, intensity of services needed, and/or the medical risk in this patient being treated as an outpatient. - InPatient: Physician Admission Certification: I certify that this patient requires 2 or more midnights of care for the following reason:: SEE NOTE - . Bed Request Type: Regular Admitting Physician: Андрей Clayton Patient Diagnosis: Femoral artery thrombosis, right, Claudication
[2016-09-20 11:06] LABS: BASO % 0.6 % (0.0-2.0); EOS # 0.2 K/uL (0.0-0.7); EOS % 2.7 % (0.0-4.0); HEMOGLOBIN 9.8 g/dL (12.0-18.0); LYMPH # 0.4 K/uL (1.0-4.3); LYMPH % 6.2 % (20.0-40.0); MEAN CELL VOLUME 85.8 fL (80.0-94.0); MEAN CORPUSCULAR HEMOGLOBIN 28.8 pg (27.0-31.0); MEAN CORPUSCULAR HGB CONC 33.6 g/dL (33.0-37.0); MEAN PLATELET VOLUME 8.1 fL (7.2-11.7); MONO # 0.3 K/uL (0.0-0.8); MONO % 4.5 % (0.0-10.0); NEUT # 5.9 K/uL (1.8-7.0); PLATELET COUNT 145 K/uL (130-400); RBC 3.41 Mil/uL (4.40-5.90); RED CELL DISTRIBUTION WIDTH 17.3 % (11.5-14.5); WHITE BLOOD COUNT 6.9 K/uL (4.8-10.8)
[2016-09-20 11:14] LABS: INR 1.1
[2016-09-20 11:18] LABS: VENOUS BLOOD GAS BASE EXCESS -0.5 mmol/L (0.0-2.0); VENOUS BLOOD GAS PCO2 39 mmHg (40-60); VENOUS BLOOD GAS PO2 25 mm/Hg (30-55)
[2016-09-20 11:19] LABS: CALCIUM 8.1 mg/dl (8.6-10.4)
[2016-09-20] MEDS ORDERED: Sodium Chloride 0.9% 500 ML IV ONE ×2 (11:28→11:46)
[2016-09-20 11:29] LABS: BANDS 2 % (0-2); EOSINOPHIL 2 % (0-4); LYMPHOCYTE 5 % (20-40); MONOCYTE 2 % (0-10); NEUTROPHIL 89 % (50-75); PLATELET ESTIMATE NORMAL (NORMAL); TOTAL CELLS COUNTED 100
[2016-09-20 11:30] LABS: ANISOCYTOSIS SLIGHT; BURR CELLS SLIGHT; HYPOCHROMIC SLIGHT; OVALOCYTES SLIGHT; POIKILOCYTOSIS SLIGHT; POLYCHROMIC SLIGHT; TOXIC GRANULATION PRESENT
[2016-09-20] MEDS ORDERED: Acetylcysteine 20% Inhal Soln (4ml) PO STA (11:31)
[2016-09-20] MEDS ORDERED: Morphine 4 MG/ML VIAL ONE (11:45)
[2016-09-20] MEDS ORDERED: Sodium Chloride 0.9% 0 ML ONE (11:46)
--- NOTE | 2016-09-20 11:58 | RAD ---
PROCEDURE: CHEST RADIOGRAPH, 1 VIEW HISTORY: Shortness of breath COMPARISON: 08/29/2016. FINDINGS: LUNGS: The lungs are well inflated and clear. PLEURA: No pneumothorax or pleural fluid seen. CARDIOVASCULAR: Normal. OSSEOUS STRUCTURES: No significant abnormalities. VISUALIZED UPPER ABDOMEN: Normal. OTHER FINDINGS: None. IMPRESSION: No active pulmonary disease.
[2016-09-20] MEDS ORDERED: Morphine 4 MG/ML VIAL IVP ONE (12:13)
--- NOTE | 2016-09-20 12:22 | CP.PCM.HP ---
Past Patient History - Infectious Disease Hx of Infectious Diseases: None - Past Medical History & Family History Past Medical History?: Yes - Past Social History Smoking Status: Heavy Smoker > 10 Cigarettes Daily - CARDIAC Hx Hypertension: Yes - PULMONARY Hx Respiratory Disorders: No - NEUROLOGICAL Hx Vertigo: Yes - HEENT Other/Comment: glasses for reading - RENAL Hx Chronic Kidney Disease: No - ENDOCRINE/METABOLIC Hx Endocrine Disorders: Yes Hx Diabetes Mellitus Type 1: Yes - HEMATOLOGICAL/ONCOLOGICAL Hx Blood Disorders: No - INTEGUMENTARY Hx Dermatological Problems: No - MUSCULOSKELETAL/RHEUMATOLOGICAL Hx Falls: No - GASTROINTESTINAL Hx Pancreatitis: Yes - GENITOURINARY/GYNECOLOGICAL Hx Genitourinary Disorders: Yes Hx Prostate Problems: Yes - PSYCHIATRIC Hx Depression: Yes Hx Substance Use: No - SURGICAL HISTORY Hx Surgeries: Yes Other/Comment: cyst drainage - ANESTHESIA Hx Anesthesia: Yes Hx Anesthesia Reactions: No Hx Malignant Hyperthermia: No Meds Allergies/Adverse Reactions: Allergies Allergy/AdvReac Type Severity Reaction Status Date / Time No Known Allergies Allergy Verified 09/20/16 10:13 Physical Exam - Constitutional Appears: Well - Head Exam Head Exam: ATRAUMATIC, NORMAL INSPECTION, NORMOCEPHALIC - Eye Exam Eye Exam: EOMI, Normal appearance, PERRL Pupil Exam: NORMAL ACCOMODATION, PERRL - ENT Exam ENT Exam: Mucous Membranes Moist, Normal Exam - Neck Exam Neck exam: Positive for: Normal Inspection - Respiratory Exam Respiratory Exam: Decreased Breath Sounds - Cardiovascular Exam Cardiovascular Exam: REGULAR RHYTHM, +S1, +S2 - GI/Abdominal Exam GI & Abdominal Exam: Diminished Bowel Sounds, Soft - Rectal Exam Rectal Exam: Deferred Results - Vital Signs Recent Vital Signs: Last Vital Signs Temp 97.7 F 09/20/16 10:06 Pulse 96 H 09/20/16 10:06 Resp 18 09/20/16 10:06 BP 95/62 L 09/20/16 10:06 Pulse Ox 100 09/20/16 11:27 - Labs Result Diagrams: 09/20/16 11:02 09/20/16 11:02 Labs: Laboratory Results - last 24 hr 09/20/16 09/20/16 09/20/16 11:02 11:02 11:02 WBC 6.9 RBC 3.41 L Hgb 9.8 L Hct 29.2 L MCV 85.8 MCH 28.8 MCHC 33.6 RDW 17.3 H Plt Count 145 MPV 8.1 Neut % (Auto) 86.0 H Lymph % (Auto) 6.2 L [place] % (Auto) 4.5 Eos % (Auto) 2.7 Baso % (Auto) 0.6 Neut # 5.9 Lymph # 0.4 L [place] # 0.3 Eos # 0.2 Baso # 0.0 Neutrophils % (Manual) 89 H Band Neutrophils % 2 Lymphocytes % (Manual) 5 L Monocytes % (Manual) 2 Eosinophils % (Manual) 2 Toxic Granulation Present Platelet Estimate Normal Polychromasia Slight Hypochromasia (manual) Slight Poikilocytosis (manual Slight Anisocytosis (manual) Slight Ovalocytes Slight [place] Cells Slight PT 12.0 INR 1.1 APTT 27 pO2 VBG pH VBG pCO2 VBG HCO3 VBG Total CO2 VBG O2 Sat (Calc) VBG Base Excess VBG Potassium Glucose Lactate Sodium 131 L Potassium 4.1 Chloride 94 L Carbon Dioxide 22 Anion Gap 19 BUN 35 H Creatinine 1.7 H Est GFR ( Amer) 49 Est GFR (Non-Af Amer) 40 Random Glucose 327 H Calcium 8.1 L Venous Blood Potassium 09/20/16 11:14 WBC RBC Hgb Hct MCV MCH MCHC RDW Plt Count MPV Neut % (Auto) Lymph % (Auto) [place] % (Auto) Eos % (Auto) Baso % (Auto) Neut # Lymph # [place] # Eos # Baso # Neutrophils % (Manual) Band Neutrophils % Lymphocytes % (Manual) Monocytes % (Manual) Eosinophils % (Manual) Toxic Granulation Platelet Estimate Polychromasia Hypochromasia (manual) Poikilocytosis (manual Anisocytosis (manual) Ovalocytes [place] Cells PT INR APTT pO2 25 L VBG pH 7.40 VBG pCO2 39 L VBG HCO3 23.1 VBG Total CO2 25.4 VBG O2 Sat (Calc) 52.8 VBG Base Excess -0.5 L VBG Potassium 4.4 Glucose 335 H Lactate 1.2 Sodium 134.0 Potassium Chloride 103.0 Carbon Dioxide Anion Gap BUN Creatinine Est GFR ( Amer) Est GFR (Non-Af Amer) Random Glucose Calcium Venous Blood Potassium 4.4
[2016-09-20] MEDS ORDERED: Enoxaparin 40 mg Syringe SC SCH (17:15)
[2016-09-20] MEDS ORDERED: Sodium Chloride 0.9% 1,000 ML IV SCH (17:15)
[2016-09-20] MEDS: (Novolog) Insulin Aspart, Recombinant 100 u/ml 10 ml vial SC SCH ×2 (17:23→22:04)
[2016-09-20] MEDS ORDERED: LIPASE PO SCH (18:00)
[2016-09-20] MEDS ORDERED: PROTEASE PO SCH (18:00)
[2016-09-20] MEDS ORDERED: AMYLASE PO SCH (18:00)
--- NOTE | 2016-09-20 18:02 | CP.PCM.CON ---
History of Present Illness - History of Present Illness History of Present Illness: VASCULAR SURGERY CONSULT NOTE FOR DR. DENIS 70yo M with PMHx of DM, HTN, pancreatitis secondary to etoh abuse, carotid artery stenosis s/p recent Left carotid endarterectomy who was told to come to [facility] ED by Dr. Denis for possible LE arterial thrombus. Patient states that his right leg, mostly the calf and ankle, but also up to the thigh has been hurting so bad that for the past week, he was unable to walk. The pain is worse with walking and moving his leg. He spoke with Dr. Denis who ordered some studies of his leg and told him to come to the ED for a clot in his artery. Patient reports that he continues to smoke 3 PPD and has no desire to quit. When cautioned about the dangers of this, the patient stated that "I would rather have my leg cut off than give up smoking". PMHx: DM, HTN, depression, chronic pancreatitis secondary to etoh abuse, syncope , carotid artery stenosis s/p CEA Surgeries: Left carotid endarterectomy 09/01/16, pancreatic cyst drainage and Ex lap for drain removal 8 years ago, tonsillectomy, inguinal hernia repair as baby Allergies: none Social history: Etoh abuse, quit in 2007, smokes 3 PPD for 50 years, used to use multiple drugs including cocaine, LSD, marijuana, hash in the 70s until 1994 Review of Systems - Review of Systems All systems: reviewed and no additional remarkable complaints except (as per hpi ) Past Patient History - Infectious Disease Hx of Infectious Diseases: None - Past Medical History & Family History Past Medical History?: Yes - Past Social History Smoking Status: Heavy Smoker > 10 Cigarettes Daily - CARDIAC Hx Hypertension: Yes - PULMONARY Hx Respiratory Disorders: No - NEUROLOGICAL Hx Vertigo: Yes - HEENT Other/Comment: glasses for reading - RENAL Hx Chronic Kidney Disease: No - ENDOCRINE/METABOLIC Hx Endocrine Disorders: Yes Hx Diabetes Mellitus Type 1: Yes - HEMATOLOGICAL/ONCOLOGICAL Hx Blood Disorders: No - INTEGUMENTARY Hx Dermatological Problems: No - MUSCULOSKELETAL/RHEUMATOLOGICAL Hx Falls: No - GASTROINTESTINAL Hx Pancreatitis: Yes - GENITOURINARY/GYNECOLOGICAL Hx Genitourinary Disorders: Yes Hx Prostate Problems: Yes - PSYCHIATRIC Hx Depression: Yes Hx Substance Use: No - SURGICAL HISTORY Hx Surgeries: Yes Other/Comment: cyst drainage - ANESTHESIA Hx Anesthesia: Yes Hx Anesthesia Reactions: No Hx Malignant Hyperthermia: No Meds Allergies/Adverse Reactions: Allergies Allergy/AdvReac Type Severity Reaction Status Date / Time No Known Allergies Allergy Verified 09/20/16 10:13 - Medications Medications: Current Medications Amlodipine Besylate (Norvasc) 10 mg PO DAILY [facility] Aspirin (Aspirin) 325 mg PO DAILY [facility] Duloxetine HCl (Cymbalta) 30 mg PO DAILY [facility] Enoxaparin Sodium (Lovenox) 40 mg SC DAILY [facility] Fluticasone Propionate (Flonase) 2 spr EMMA DAILY [facility] Glipizide (Glucotrol Xl) 2.5 mg PO DAILY [facility] Home Med (Lipase/Protease/Amylase [Creon Dr 24,000 Units Capsule]) 2 tab PO TID [facility] Sodium Chloride (Sodium Chloride 0.9%) 1,000 mls @ 75 mls/hr IV .[id number] [facility] Last Admin: 09/20/16 17:28 Dose: 75 mls/hr Insulin Aspart (Novolog) 0 unit SC ACHS [facility] PRN Reason: Protocol Last Admin: 09/20/16 17:23 Dose: 6 unit Insulin Detemir (Levemir) 45 unit SC DAILY [facility] Metoprolol Tartrate (Lopressor) 100 mg PO BID [facility] Last Admin: 09/20/16 17:23 Dose: 100 mg Mirtazapine (Remeron) 30 mg PO HS [facility] Pantoprazole Sodium (Protonix Ec Tab) 40 mg PO DAILY [facility] Rosuvastatin Calcium (Crestor) 10 mg PO QPM [facility] Tamsulosin HCl (Flomax) 0.4 mg PO DAILY [facility] Physical Exam - Constitutional Appears: Non-toxic, No Acute Distress - Head Exam Head Exam: ATRAUMATIC, NORMAL INSPECTION - Respiratory Exam Respiratory Exam: NORMAL BREATHING PATTERN. absent: Respiratory Distress - Cardiovascular Exam Cardiovascular Exam: +S1, +S2 - GI/Abdominal Exam GI & Abdominal Exam: Soft. absent: Tenderness - Extremities Exam Extremities exam: Positive for: normal inspection, pedal pulses present. Negative for: calf tenderness Additional comments: bilateral feet warm to touch + doppler signals to right foot PT and DP + femoral pulse - Neurological Exam Neurological exam: Alert, CN II-XII Intact, Oriented x3 - Psychiatric Exam Psychiatric exam: Normal Affect, Normal Mood - Skin Skin Exam: Dry, Normal Color, Warm Results - Vital Signs Recent Vital Signs: Last Vital Signs Temp 97.9 F 09/20/16 15:19 Pulse 81 09/20/16 15:19 Resp 16 09/20/16 15:19 BP 110/68 09/20/16 15:19 Pulse Ox 99 09/20/16 15:19 - Labs Result Diagrams: 09/20/16 11:02 09/20/16 11:02 Labs: Laboratory Results - last 24 hr 09/20/16 09/20/16 09/20/16 11:02 11:02 11:02 WBC 6.9 RBC 3.41 L Hgb 9.8 L Hct 29.2 L MCV 85.8 MCH 28.8 MCHC 33.6 RDW 17.3 H Plt Count 145 MPV 8.1 Neut % (Auto) 86.0 H Lymph % (Auto) 6.2 L [place] % (Auto) 4.5 Eos % (Auto) 2.7 Baso % (Auto) 0.6 Neut # 5.9 Lymph # 0.4 L [place] # 0.3 Eos # 0.2 Baso # 0.0 Neutrophils % (Manual) 89 H Band Neutrophils % 2 Lymphocytes % (Manual) 5 L Monocytes % (Manual) 2 Eosinophils % (Manual) 2 Toxic Granulation Present Platelet Estimate Normal Polychromasia Slight Hypochromasia (manual) Slight Poikilocytosis (manual Slight Anisocytosis (manual) Slight Ovalocytes Slight [place] Cells Slight PT 12.0 INR 1.1 APTT 27 pO2 VBG pH VBG pCO2 VBG HCO3 VBG Total CO2 VBG O2 Sat (Calc) VBG Base Excess VBG Potassium Glucose Lactate Sodium 131 L Potassium 4.1 Chloride 94 L Carbon Dioxide 22 Anion Gap 19 BUN 35 H Creatinine 1.7 H Est GFR ( Amer) 49 Est GFR (Non-Af Amer) 40 POC Glucose (mg/dL) Random Glucose 327 H Calcium 8.1 L Venous Blood Potassium 09/20/16 09/20/16 11:14 16:48 WBC RBC Hgb Hct MCV MCH MCHC RDW Plt Count MPV Neut % (Auto) Lymph % (Auto) [place] % (Auto) Eos % (Auto) Baso % (Auto) Neut # Lymph # [place] # Eos # Baso # Neutrophils % (Manual) Band Neutrophils % Lymphocytes % (Manual) Monocytes % (Manual) Eosinophils % (Manual) Toxic Granulation Platelet Estimate Polychromasia Hypochromasia (manual) Poikilocytosis (manual Anisocytosis (manual) Ovalocytes [place] Cells PT INR APTT pO2 25 L VBG pH 7.40 VBG pCO2 39 L VBG HCO3 23.1 VBG Total CO2 25.4 VBG O2 Sat (Calc) 52.8 VBG Base Excess -0.5 L VBG Potassium 4.4 Glucose 335 H Lactate 1.2 Sodium 134.0 Potassium Chloride 103.0 Carbon Dioxide Anion Gap BUN Creatinine Est GFR ( Amer) Est GFR (Non-Af Amer) POC Glucose (mg/dL) > 500 H* Random Glucose Calcium Venous Blood Potassium 4.4 Assessment & Plan - Assessment and Plan (Free Text) Assessment: 70yo M with PMHx of DM, HTN, pancreatitis secondary to etoh abuse, carotid artery stenosis s/p recent Left carotid endarterectomy who was told to come to [facility] ED by Dr. Denis for possible Right LE arterial thrombus. - LE US: severely decreased perfusion of right LE @ iliac artery level - Elevated BUN 35, Cr 1.7 - CTA will be done tomorrow after adequate IV hydration and mucomyst - Discussed plan with Dr. Maura Mckeon PGY-3
[2016-09-20] MEDS: Oxycodone/Acetaminophen 5/325 mg Tab PO PRN (18:17)
[2016-09-20] MEDS: Morphine 4 MG/ML VIAL IVP PRN (21:23)
[2016-09-20] MEDS: Acetylcysteine 20% Inhal Soln (4ml) PO SCH (22:04)
[2016-09-21 08:37] LABS: HEMOGLOBIN 9.6 g/dL (12.0-18.0); INR 1.1; MEAN CELL VOLUME 86.7 fL (80.0-94.0); MEAN CORPUSCULAR HEMOGLOBIN 28.6 pg (27.0-31.0); MEAN PLATELET VOLUME 8.6 fL (7.2-11.7); RBC 3.34 Mil/uL (4.40-5.90); RED CELL DISTRIBUTION WIDTH 17.5 % (11.5-14.5); WHITE BLOOD COUNT 7.4 K/uL (4.8-10.8)
[2016-09-21 08:47] LABS: GFR AFRICAN-AMERICAN > 60; GFR NON-AFRICAN AMERICAN 50
[2016-09-21 08:48] LABS: BLOOD UREA NITROGEN 29 mg/dL (9-20)
[2016-09-21] MEDS: (Novolog) Insulin Aspart, Recombinant 100 u/ml 10 ml vial SC SCH ×4 (09:05→21:26)
[2016-09-21] MEDS: Insulin Detemir 100 units/ml Vial (Levemir) SC SCH (09:07)
[2016-09-21] MEDS: Pantoprazole 40 mg EC Tab PO SCH (09:07)
[2016-09-21] MEDS: GlipiZIDE 2.5 mg SR Tab PO SCH (09:08)
[2016-09-21] MEDS: Fluticasone Nasal 50 mcg/Spray NAS SCH (09:09)
[2016-09-21] MEDS: Acetylcysteine 20% Inhal Soln (4ml) PO SCH ×3 (09:23→23:08)
[2016-09-21] MEDS: Morphine 4 MG/ML VIAL IVP PRN ×3 (09:39→21:11)
[2016-09-21] MEDS ORDERED: Enoxaparin 40 mg Syringe SC SCH (10:00)
[2016-09-21] MEDS ORDERED: Iodixanol 320 mg/ml 150 ml Bottle IV ONE (11:44)
[2016-09-21] MEDS: Sodium Chloride 0.9% 1,000 ML IV SCH ×2 (12:14→21:20)
--- NOTE | 2016-09-21 12:20 | CP.PCM.PN ---
Subjective - Date & Time of Evaluation Date of Evaluation: 09/21/16 Time of Evaluation: 07:20 - Subjective Subjective: Patient seen and examined this morning. Complaining of right lower extremity pain which is worse with movement. Sensation and motor skills intact. Palpable femoral pulses b/l. Patient scheduled for CT Abd Angio this morning. Objective - Vital Signs/Intake and Output Vital Signs (last 24 hours): Temp Pulse Resp BP Pulse Ox 97.7 F 90 20 161/70 H 98 09/21/16 09:01 09/21/16 09:01 09/21/16 09:01 09/21/16 09:01 09/21/16 09:01 Intake and Output: 09/21/16 09/21/16 06:59 18:59 Intake Total 900 600 Output Total 500 600 Balance 400 0 - Medications Medications: Current Medications Acetylcysteine (Acetylcysteine 20%) 6 ml PO Q12H [facility] Stop: 09/22/16 11:01 Last Admin: 09/21/16 11:53 Dose: Not Given Amlodipine Besylate (Norvasc) 10 mg PO DAILY [facility] Last Admin: 09/21/16 09:07 Dose: 10 mg Aspirin (Aspirin) 325 mg PO DAILY [facility] Last Admin: 09/21/16 09:07 Dose: 325 mg Duloxetine HCl (Cymbalta) 30 mg PO DAILY [facility] Last Admin: 09/21/16 09:08 Dose: 30 mg Fluticasone Propionate (Flonase) 2 spr EMMA DAILY [facility] Last Admin: 09/21/16 09:09 Dose: 2 spr Glipizide (Glucotrol Xl) 2.5 mg PO DAILY [facility] Last Admin: 09/21/16 09:08 Dose: 2.5 mg Heparin Sodium (Porcine) (Heparin) 5,000 units SC Q12 [facility] Stop: 09/21/16 22:01 Last Admin: 09/21/16 09:09 Dose: 5,000 units Home Med (Lipase/Protease/Amylase [Samantha Gomez 24,000 Units Capsule]) 2 tab PO TID [facility] Sodium Chloride (Sodium Chloride 0.9%) 1,000 mls @ 110 mls/hr IV .Q9H6M [facility] Last Admin: 09/21/16 12:14 Dose: Not Given Insulin Aspart (Novolog) 0 unit SC ACHS [facility] PRN Reason: Protocol Last Admin: 09/21/16 11:52 Dose: 5 unit Insulin Detemir (Levemir) 45 unit SC DAILY [facility] Last Admin: 09/21/16 09:07 Dose: 45 unit Metoprolol Tartrate (Lopressor) 100 mg PO BID [facility] Last Admin: 09/21/16 09:08 Dose: 100 mg Mirtazapine (Remeron) 30 mg PO [facility] Last Admin: 09/20/16 21:09 Dose: 30 mg Morphine Sulfate (Morphine) 2 mg IVP Q4 PRN PRN Reason: Pain, severe (8-10) Last Admin: 09/21/16 09:39 Dose: 2 mg Oxycodone/Acetaminophen (Percocet 5/325 Mg Tab) 1 tab PO Q4H PRN PRN Reason: Pain, moderate (4-7) Stop: 09/23/16 17:48 Last Admin: 09/20/16 18:17 Dose: 1 tab Pantoprazole Sodium (Protonix Ec Tab) 40 mg PO DAILY [facility] Last Admin: 09/21/16 09:07 Dose: 40 mg Pneumococcal Polyvalent Vaccine (Pneumovax 23 Vaccine) 0.5 ml IM .ONCE ONE Stop: 09/22/16 10:01 Rosuvastatin Calcium (Crestor) 10 mg PO [facility] Last Admin: 09/20/16 21:09 Dose: 10 mg Tamsulosin HCl (Flomax) 0.4 mg PO DAILY [facility] Last Admin: 09/21/16 09:07 Dose: 0.4 mg - Labs Labs: 09/21/16 08:24 09/21/16 08:24 PT 12.0 SECONDS (9.7-12.2) 09/21/16 08:24 INR 1.1 09/21/16 08:24 APTT 27 SECONDS (21-34) 09/21/16 08:24 - Constitutional Appears: No Acute Distress - Head Exam Head Exam: NORMOCEPHALIC - Eye Exam Eye Exam: Normal appearance - ENT Exam ENT Exam: Mucous Membranes Moist - Respiratory Exam Respiratory Exam: NORMAL BREATHING PATTERN - Cardiovascular Exam Cardiovascular Exam: +S1, +S2 - GI/Abdominal Exam GI & Abdominal Exam: Soft - Extremities Exam Extremities Exam: absent: Calf Tenderness Additional comments: +sensation +motor skills Leg appears pale but is warm to touch +femoral pulses b/l +PT pulse on left leg Assessment and Plan - Assessment and Plan (Free Text) Assessment: 70yo M with PMHx of DM, HTN, pancreatitis secondary to etoh abuse, carotid artery stenosis s/p recent Left carotid endarterectomy who was told to come to [facility] ED by Dr. Lorenzo for possible Right LE arterial thrombus. - LE US: severely decreased perfusion of right LE @ iliac artery level - Bun/Cr improving -Continue IV hydration prior to CTA -2 doses of mucomyst administered prior to CTA -Patient to go for CTA today - Discussed plan with Dr. Maura Zacarias PGY-2
--- NOTE | 2016-09-21 12:24 | CP.PCM.PN ---
Subjective - Date & Time of Evaluation Date of Evaluation: 09/21/16 Time of Evaluation: 09:20 - Subjective Subjective: clinically same Objective - Vital Signs/Intake and Output Vital Signs (last 24 hours): Temp Pulse Resp BP Pulse Ox 97.7 F 90 20 161/70 H 98 09/21/16 09:01 09/21/16 09:01 09/21/16 09:01 09/21/16 09:01 09/21/16 09:01 Intake and Output: 09/21/16 09/21/16 06:59 18:59 Intake Total 900 600 Output Total 500 600 Balance 400 0 - Medications Medications: Current Medications Acetylcysteine (Acetylcysteine 20%) 6 ml PO Q12H [facility] Stop: 09/22/16 11:01 Last Admin: 09/21/16 11:53 Dose: Not Given Amlodipine Besylate (Norvasc) 10 mg PO DAILY [facility] Last Admin: 09/21/16 09:07 Dose: 10 mg Aspirin (Aspirin) 325 mg PO DAILY [facility] Last Admin: 09/21/16 09:07 Dose: 325 mg Duloxetine HCl (Cymbalta) 30 mg PO DAILY [facility] Last Admin: 09/21/16 09:08 Dose: 30 mg Fluticasone Propionate (Flonase) 2 spr [facility]MA DAILY [facility] Last Admin: 09/21/16 09:09 Dose: 2 spr Glipizide (Glucotrol Xl) 2.5 mg PO DAILY [facility] Last Admin: 09/21/16 09:08 Dose: 2.5 mg Heparin Sodium (Porcine) (Heparin) 5,000 units SC Q12 [facility] Stop: 09/21/16 22:01 Last Admin: 09/21/16 09:09 Dose: 5,000 units Home Med (Lipase/Protease/Amylase [Samantha Gomez 24,000 Units Capsule]) 2 tab PO TID [facility] Sodium Chloride (Sodium Chloride 0.9%) 1,000 mls @ 110 mls/hr IV .Q9H6M [facility] Last Admin: 09/21/16 12:14 Dose: Not Given Insulin Aspart (Novolog) 0 unit SC ACHS [facility] PRN Reason: Protocol Last Admin: 09/21/16 11:52 Dose: 5 unit Insulin Detemir (Levemir) 45 unit SC DAILY [facility] Last Admin: 09/21/16 09:07 Dose: 45 unit Metoprolol Tartrate (Lopressor) 100 mg PO BID [facility] Last Admin: 09/21/16 09:08 Dose: 100 mg Mirtazapine (Remeron) 30 mg PO [facility] Last Admin: 09/20/16 21:09 Dose: 30 mg Morphine Sulfate (Morphine) 2 mg IVP Q4 PRN PRN Reason: Pain, severe (8-10) Last Admin: 09/21/16 09:39 Dose: 2 mg Oxycodone/Acetaminophen (Percocet 5/325 Mg Tab) 1 tab PO Q4H PRN PRN Reason: Pain, moderate (4-7) Stop: 09/23/16 17:48 Last Admin: 09/20/16 18:17 Dose: 1 tab Pantoprazole Sodium (Protonix Ec Tab) 40 mg PO DAILY [facility] Last Admin: 09/21/16 09:07 Dose: 40 mg Pneumococcal Polyvalent Vaccine (Pneumovax 23 Vaccine) 0.5 ml IM .ONCE ONE Stop: 09/22/16 10:01 Rosuvastatin Calcium (Crestor) 10 mg PO [facility] Last Admin: 09/20/16 21:09 Dose: 10 mg Tamsulosin HCl (Flomax) 0.4 mg PO DAILY [facility] Last Admin: 09/21/16 09:07 Dose: 0.4 mg - Labs Labs: 09/21/16 08:24 09/21/16 08:24 PT 12.0 SECONDS (9.7-12.2) 09/21/16 08:24 INR 1.1 09/21/16 08:24 APTT 27 SECONDS (21-34) 09/21/16 08:24 - Constitutional Appears: Well - Head Exam Head Exam: ATRAUMATIC, NORMAL INSPECTION, NORMOCEPHALIC - Eye Exam Eye Exam: EOMI, Normal appearance, PERRL Pupil Exam: NORMAL ACCOMODATION, PERRL - ENT Exam ENT Exam: Mucous Membranes Moist, Normal Exam - Neck Exam Neck Exam: Full ROM, Normal Inspection. absent: Lymphadenopathy - Respiratory Exam Respiratory Exam: Decreased Breath Sounds - Cardiovascular Exam Cardiovascular Exam: REGULAR RHYTHM, +S1, +S2 - GI/Abdominal Exam GI & Abdominal Exam: Soft, Diminished Bowel Sounds - Rectal Exam Rectal Exam: Deferred
[2016-09-21] MEDS: LIPASE/PROTEASE/AMYLASE 4,200 U ECC PO SCH (18:11)
--- NOTE | 2016-09-21 20:58 | CP.PCM.CON ---
History of Present Illness - History of Present Illness History of Present Illness: 70 Male s/p Lt. CEA and cardiac cath admitted for Left Lower extremity pain. Patient denies chest pain and dyspnea Patient for CTA in am Past Patient History - Infectious Disease Hx of Infectious Diseases: None - Past Medical History & Family History Past Medical History?: Yes - Past Social History Smoking Status: Heavy Smoker > 10 Cigarettes Daily - CARDIAC Hx Hypertension: Yes - PULMONARY Hx Respiratory Disorders: No - NEUROLOGICAL Hx Vertigo: Yes - HEENT Other/Comment: glasses for reading - RENAL Hx Chronic Kidney Disease: No - ENDOCRINE/METABOLIC Hx Endocrine Disorders: Yes Hx Diabetes Mellitus Type 1: Yes - HEMATOLOGICAL/ONCOLOGICAL Hx Blood Disorders: No - INTEGUMENTARY Hx Dermatological Problems: No - MUSCULOSKELETAL/RHEUMATOLOGICAL Hx Falls: No - GASTROINTESTINAL Hx Pancreatitis: Yes - GENITOURINARY/GYNECOLOGICAL Hx Genitourinary Disorders: Yes Hx Prostate Problems: Yes - PSYCHIATRIC Hx Depression: Yes Hx Substance Use: Yes - SURGICAL HISTORY Hx Surgeries: Yes Other/Comment: cyst drainage - ANESTHESIA Hx Anesthesia: Yes Hx Anesthesia Reactions: No Hx Malignant Hyperthermia: No Meds Allergies/Adverse Reactions: Allergies Allergy/AdvReac Type Severity Reaction Status Date / Time No Known Allergies Allergy Verified 09/20/16 10:13 - Medications Medications: Current Medications Acetylcysteine (Acetylcysteine 20%) 6 ml PO Q12H [facility] Stop: 09/22/16 11:01 Last Admin: 09/21/16 11:53 Dose: Not Given Amlodipine Besylate (Norvasc) 10 mg PO DAILY [facility] Last Admin: 09/21/16 09:07 Dose: 10 mg Aspirin (Aspirin) 325 mg PO DAILY [facility] Last Admin: 09/21/16 09:07 Dose: 325 mg Duloxetine HCl (Cymbalta) 30 mg PO DAILY [facility] Last Admin: 09/21/16 09:08 Dose: 30 mg Fluticasone Propionate (Flonase) 2 spr EMMA DAILY [facility] Last Admin: 09/21/16 09:09 Dose: 2 spr Glipizide (Glucotrol Xl) 2.5 mg PO DAILY [facility] Last Admin: 09/21/16 09:08 Dose: 2.5 mg Heparin Sodium (Porcine) (Heparin) 5,000 units SC Q12 [facility] Stop: 09/21/16 22:01 Last Admin: 09/21/16 09:09 Dose: 5,000 units Sodium Chloride (Sodium Chloride 0.9%) 1,000 mls @ 110 mls/hr IV .Q9H6M [facility] Last Admin: 09/21/16 12:14 Dose: Not Given Insulin Aspart (Novolog) 0 unit SC ACHS [facility] PRN Reason: Protocol Last Admin: 09/21/16 18:00 Dose: 5 unit Insulin Detemir (Levemir) 45 unit SC DAILY [facility] Last Admin: 09/21/16 09:07 Dose: 45 unit Metoprolol Tartrate (Lopressor) 100 mg PO BID [facility] Last Admin: 09/21/16 18:01 Dose: 100 mg Mirtazapine (Remeron) 30 mg PO [facility] Last Admin: 09/20/16 21:09 Dose: 30 mg Morphine Sulfate (Morphine) 2 mg IVP Q4 PRN PRN Reason: Pain, severe (8-10) Last Admin: 09/21/16 16:52 Dose: 2 mg Oxycodone/Acetaminophen (Percocet 5/325 Mg Tab) 1 tab PO Q4H PRN PRN Reason: Pain, moderate (4-7) Stop: 09/23/16 17:48 Last Admin: 09/20/16 18:17 Dose: 1 tab Pantoprazole Sodium (Protonix Ec Tab) 40 mg PO DAILY [facility] Last Admin: 09/21/16 09:07 Dose: 40 mg Pneumococcal Polyvalent Vaccine (Pneumovax 23 Vaccine) 0.5 ml IM .ONCE ONE Stop: 09/22/16 10:01 Rosuvastatin Calcium (Crestor) 10 mg PO [facility] Last Admin: 09/20/16 21:09 Dose: 10 mg Tamsulosin HCl (Flomax) 0.4 mg PO DAILY [facility] Last Admin: 09/21/16 09:07 Dose: 0.4 mg Results - Vital Signs Recent Vital Signs: Last Vital Signs Temp 98.3 F 09/21/16 15:00 Pulse 68 09/21/16 15:00 Resp 20 09/21/16 15:00 BP 165/74 H 09/21/16 15:00 Pulse Ox 100 09/21/16 15:00 - Labs Result Diagrams: 09/21/16 08:24 09/21/16 08:24 Labs: Laboratory Results - last 24 hr 09/20/16 09/21/16 09/21/16 20:57 02:14 07:19 WBC RBC Hgb Hct MCV MCH MCHC RDW Plt Count MPV PT INR APTT Sodium Potassium Chloride Carbon Dioxide Anion Gap BUN Creatinine Est GFR ( Amer) Est GFR (Non-Af Amer) POC Glucose (mg/dL) 402 H* 303 H 333 H Random Glucose Calcium 09/21/16 09/21/16 09/21/16 08:24 08:24 08:24 WBC 7.4 RBC 3.34 L Hgb 9.6 L Hct 28.9 L MCV 86.7 MCH 28.6 MCHC 33.0 RDW 17.5 H Plt Count 143 MPV 8.6 PT 12.0 INR 1.1 APTT 27 Sodium 136 Potassium 4.7 Chloride 99 Carbon Dioxide 23 Anion Gap 18 BUN 29 H Creatinine 1.4 Est GFR ( Amer) > 60 Est GFR (Non-Af Amer) 50 POC Glucose (mg/dL) Random Glucose 309 H Calcium 8.0 L 09/21/16 09/21/16 11:41 15:58 WBC RBC Hgb Hct MCV MCH MCHC RDW Plt Count MPV PT INR APTT Sodium Potassium Chloride Carbon Dioxide Anion Gap BUN Creatinine Est GFR ( Amer) Est GFR (Non-Af Amer) POC Glucose (mg/dL) 392 H 363 H Random Glucose Calcium
--- NOTE | 2016-09-21 21:00 | CP.PCM.PN ---
Subjective - Date & Time of Evaluation Date of Evaluation: 09/21/16 Time of Evaluation: 10:30 - Subjective Subjective: Patient seen and evaluated still has right leg pain Denies chest pain and dyspnea For Intervention by Dr. Lorenzo tomorrow Objective - Vital Signs/Intake and Output Vital Signs (last 24 hours): Temp Pulse Resp BP Pulse Ox 98.3 F 68 20 165/74 H 100 09/21/16 15:00 09/21/16 15:00 09/21/16 15:00 09/21/16 15:00 09/21/16 15:00 Intake and Output: 09/21/16 09/22/16 18:59 06:59 Intake Total 600 Output Total 1100 Balance -500 - Medications Medications: Current Medications Acetylcysteine (Acetylcysteine 20%) 6 ml PO Q12H [facility] Stop: 09/22/16 11:01 Last Admin: 09/21/16 11:53 Dose: Not Given Amlodipine Besylate (Norvasc) 10 mg PO DAILY [facility] Last Admin: 09/21/16 09:07 Dose: 10 mg Aspirin (Aspirin) 325 mg PO DAILY [facility] Last Admin: 09/21/16 09:07 Dose: 325 mg Duloxetine HCl (Cymbalta) 30 mg PO DAILY [facility] Last Admin: 09/21/16 09:08 Dose: 30 mg Fluticasone Propionate (Flonase) 2 spr EMMA DAILY [facility] Last Admin: 09/21/16 09:09 Dose: 2 spr Glipizide (Glucotrol Xl) 2.5 mg PO DAILY [facility] Last Admin: 09/21/16 09:08 Dose: 2.5 mg Heparin Sodium (Porcine) (Heparin) 5,000 units SC Q12 [facility] Stop: 09/21/16 22:01 Last Admin: 09/21/16 09:09 Dose: 5,000 units Sodium Chloride (Sodium Chloride 0.9%) 1,000 mls @ 110 mls/hr IV .Q9H6M [facility] Last Admin: 09/21/16 12:14 Dose: Not Given Insulin Aspart (Novolog) 0 unit SC ACHS [facility] PRN Reason: Protocol Last Admin: 09/21/16 18:00 Dose: 5 unit Insulin Detemir (Levemir) 45 unit SC DAILY [facility] Last Admin: 09/21/16 09:07 Dose: 45 unit Metoprolol Tartrate (Lopressor) 100 mg PO BID [facility] Last Admin: 09/21/16 18:01 Dose: 100 mg Mirtazapine (Remeron) 30 mg PO HS [facility] Last Admin: 09/20/16 21:09 Dose: 30 mg Morphine Sulfate (Morphine) 2 mg IVP Q4 PRN PRN Reason: Pain, severe (8-10) Last Admin: 09/21/16 16:52 Dose: 2 mg Oxycodone/Acetaminophen (Percocet 5/325 Mg Tab) 1 tab PO Q4H PRN PRN Reason: Pain, moderate (4-7) Stop: 09/23/16 17:48 Last Admin: 09/20/16 18:17 Dose: 1 tab Pantoprazole Sodium (Protonix Ec Tab) 40 mg PO DAILY [facility] Last Admin: 09/21/16 09:07 Dose: 40 mg Pneumococcal Polyvalent Vaccine (Pneumovax 23 Vaccine) 0.5 ml IM .ONCE ONE Stop: 09/22/16 10:01 Rosuvastatin Calcium (Crestor) 10 mg PO [facility] Last Admin: 09/20/16 21:09 Dose: 10 mg Tamsulosin HCl (Flomax) 0.4 mg PO DAILY [facility] Last Admin: 09/21/16 09:07 Dose: 0.4 mg - Labs Labs: 09/21/16 08:24 09/21/16 08:24 PT 12.0 SECONDS (9.7-12.2) 09/21/16 08:24 INR 1.1 09/21/16 08:24 APTT 27 SECONDS (21-34) 09/21/16 08:24
[2016-09-22] MEDS ORDERED: ceFAZolin IV 2 gm in Dextrose 0 GM/0 ML BAG IVPB ONE (07:18)
[2016-09-22] MEDS ORDERED: HEPARIN-NS 5,000 UNITS/500 ML 10,000 UNIT/1,000 ML BAG IV ONE (07:19)
[2016-09-22] MEDS ORDERED: ceFAZolin IV 1 gm in Dextrose 1 GM/50 ML BAG IVPB ONE (07:21)
[2016-09-22] MEDS ORDERED: Nitroglycerin 50mg in D5W 50 MG/250 ML BOTTLE IV ONE (07:30)
[2016-09-22] MEDS ORDERED: Bacitracin 50,000 UNIT in Sodium Chloride 0.9% Irrig 1,000 ML IR SCH (07:39)
[2016-09-22] MEDS ORDERED: Midazolam 2 MG/2 ML VIAL ONE (07:43)
[2016-09-22] MEDS ORDERED: Propofol 10 mg/ml Inj (20 ML) ONE (07:43)
[2016-09-22] MEDS ORDERED: Iodixanol 320 MG/ML 200 ML BOTTLE IV ONE (07:45)
[2016-09-22] MEDS ORDERED: Thrombin Topical 20,000 Intl Units Spray Kit TOP ONE (07:45)
[2016-09-22] MEDS ORDERED: Rocuronium 10 mg/ml (5 ml) ONE (07:46)
[2016-09-22] MEDS ORDERED: Phenylephrine 10 mg/ml Inj ONE (07:46)
[2016-09-22] MEDS ORDERED: Lactated Ringer's 1,000 ML IV ONE ×3 (07:50→09:50)
[2016-09-22] MEDS: LIPASE/PROTEASE/AMYLASE 4,200 U ECC PO SCH ×3 (08:17→17:24)
[2016-09-22] MEDS: (Novolog) Insulin Aspart, Recombinant 100 u/ml 10 ml vial SC SCH ×4 (08:17→21:17)
[2016-09-22] MEDS ORDERED: Calcium Chloride 1000 mg/10 ml Syringe IV ONE ×2 (09:53→13:52)
[2016-09-22 09:56] LABS: ABG ALLEN TEST POS; ARTERIAL BLOOD GAS HCO3 21.3 mmol/L (21-28); ARTERIAL BLOOD GAS PCO2 34 mm/Hg (35-45); ARTERIAL BLOOD GAS PH 7.37 (7.35-7.45); ARTERIAL BLOOD GAS PO2 404 mm/Hg (80-100); ARTERIAL BLOOD GAS TCO2 20.7 mmol/L (22-28)
[2016-09-22] MEDS ORDERED: Pneumococcal 23-Valent Vaccine IM ONE (10:00)
[2016-09-22 10:04] LABS: MEAN CELL VOLUME 86.5 fL (80.0-94.0); MEAN CORPUSCULAR HEMOGLOBIN 28.5 pg (27.0-31.0); MEAN CORPUSCULAR HGB CONC 32.9 g/dL (33.0-37.0); MEAN PLATELET VOLUME 8.3 fL (7.2-11.7); RBC 2.57 Mil/uL (4.40-5.90); RED CELL DISTRIBUTION WIDTH 17.4 % (11.5-14.5); WHITE BLOOD COUNT 6.4 K/uL (4.8-10.8)
[2016-09-22] MEDS ORDERED: Sodium Chloride 0.9% 500 ML IV ONE (10:05)
[2016-09-22] MEDS: GlipiZIDE 2.5 mg SR Tab PO SCH (10:13)
[2016-09-22] MEDS: Insulin Detemir 100 units/ml Vial (Levemir) SC SCH (10:13)
[2016-09-22] MEDS: Pantoprazole 40 mg EC Tab PO SCH (10:13)
[2016-09-22] MEDS: Fluticasone Nasal 50 mcg/Spray NAS SCH (10:13)
[2016-09-22 10:14] LABS: HEMOGLOBIN 7.3 g/dL (12.0-18.0)
[2016-09-22] MEDS ORDERED: Neostigmine Methylsulfate 3mg/3ml Syringe IV ONE (10:36)
[2016-09-22] MEDS ORDERED: Bacitracin Ointment 30 GM TUBE ONE (10:37)
[2016-09-22] MEDS ORDERED: Metoprolol 1 mg/ml Inj IVP ONE (10:46)
--- NOTE | 2016-09-22 11:08 | PCM.SURG1 ---
Surgeon's Initial Post Op Note - Surgeon's Notes Surgeon: Dr. Lorenzo Returned Goods Sorter: Dr. Zayas, Dr. Jara Type of Anesthesia: General Endo Pre-Operative Diagnosis: right femoral artery stenosis s/p catherterization Operative Findings: right femoral arterty stenosis w/ no evidence of perclose sutures, possible use of angio-seal closure device, debris removed Post-Operative Diagnosis: same Operation Performed: right femoral endarterectomy w/ Bovine patch closure Specimen/Specimens Removed: fermoral artery debris/plaque Estimated Blood Loss: EBL {In ML}: 700 Blood Products Given: PRBC (2) Drains Used: No Drains Post-Op Condition: Good Date of Surgery/Procedure: 09/22/16 Time of Surgery/Procedure: 11:08
[2016-09-22] MEDS ORDERED: Nitroglycerin 2% Ointment Foilpak UD TOP PRN ×2 (11:10→12:59)
[2016-09-22] MEDS: Acetylcysteine 20% Inhal Soln (4ml) PO SCH (13:34)
--- NOTE | 2016-09-22 14:17 | CT ---
PROCEDURE: CT Angiography Abdomen, Pelvis and Lower Extremity with Contrast HISTORY: R LEG PAIN, FOOT PALLOR RO THROMBUS COMPARISON: None. TECHNIQUE: Technique: CT angiography of the abdomen, pelvis and bilateral lower extremities performed in the arterial phase of enhancement. Coronal and sagittal reformats, and well as rotating MIP images of the vessels generated at the workstation. Intravenous contrast dose: 100 milliliters Visipaque 320 Radiation dose: Total exam DLP = 1619.21 MGy-cm. This CT exam was performed using one or more of the following dose reduction techniques: Automated exposure control, adjustment of the mA and/or kV according to patient size, and/or use of iterative reconstruction technique. FINDINGS: CT ANGIOGRAPHY: ABDOMINAL AORTA:: The infrarenal aorta is unremarkable. The suprarenal aorta is no Montalvo imaged on this study. MAJOR AORTIC BRANCHES: Celiac [place]: Unremarkable. Superior mesenteric artery: Unremarkable. Inferior mesenteric artery: Unremarkable. Renal arteries: Unremarkable. PELVIC ARTERIES: Right Common Iliac: Unremarkable. Right External Iliac: Unremarkable. Right Internal Iliac: Unremarkable. Left Common Iliac: Unremarkable. Left External Iliac: Unremarkable. Left Internal Iliac: Unremarkable. RIGHT LOWER EXTREMITY ARTERIES: Right Common Femoral: Soft tissue abnormality of the distal common femoral along with air dissecting along the proximal profunda SFA. This may relate to previous intervention. Right Superficial Femoral: Moderate plaque throughout the SFA with mild stenosis distally. Right Profunda Femoris: Unremarkable. Right Popliteal:Unremarkable. Right Anterior Tibial: Occludes in the proximal segment with no reconstitution Right Tibioperoneal Trunk: Unremarkable. Right Posterior Tibial: Unremarkable. Right Peroneal: Unremarkable. Right dorsalis pedis : Unremarkable. LEFT LOWER EXTREMITY ARTERIES: Left Common Femoral: Unremarkable. Left Superficial Femoral: Mild plaque throughout the SFA with no significant stenosis Left Profunda Femoris: Unremarkable. Left Popliteal: Unremarkable. Left Anterior Tibial: Occludes of the proximal segment. Left Tibioperoneal Trunk: Unremarkable. Left Posterior Tibial: Unremarkable. Left Peroneal: Unremarkable. Left Dorsalis pedis: Unremarkable. NON-ANGIOGRAPHIC ASPECT OF THE EXAM: LOWER THORAX: Unremarkable. LIVER: Incompletely imaged. GALLBLADDER AND BILE DUCTS: Small gallstones. Gallbladder is otherwise remarkable. Dilatation of the common bile duct measures 11 millimeters. PANCREAS: Large mass in the neck of the pancreas measuring 3.6 centimeter with dilatation of the pancreatic duct, 8 millimeters. Masses previous described on CT scan May 2016. There several lymph nodes around the mass. SPLEEN: Unremarkable. ADRENALS: Unremarkable. No mass. KIDNEYS AND URETERS: Unremarkable. No hydronephrosis. No solid mass. STOMACH AND BOWEL: Unremarkable. No obstruction. No gross mural thickening. APPENDIX: Normal appendix. PERITONEUM: Unremarkable. No free fluid. No free air. LYMPH NODES: Unremarkable. No enlarged lymph nodes. BLADDER: Unremarkable. REPRODUCTIVE: Unremarkable. BONES: No acute fracture. OTHER FINDINGS: None. IMPRESSION: NONVASCULAR FINDINGS: Again seen is the large pancreatic neck mass measuring 3.6 centimeter with distal pancreatic ductal dilatation also dilatation of the common bile duct as detailed above. The mass was previously described on CT scans dating back to May 2016 CT ANGIOGRAM ABDOMEN/PELVIS: 1. Essentially unremarkable CT angiogram of the abdomen and pelvis. RIGHT LOWER EXTREMITY CT ANGIOGRAM: 1. Soft tissue abnormality surrounding common femoral artery with air which dissects towards a proximal profunda femoral artery and also proximal SFA. This may relate to previous intervention. Correlation for infection recommended. 2. SFA has moderate plaque throughout with mild stenosis in the distal segment. 3. Popliteal artery is patent. 4. Right runoff shows a patent peroneal artery and posterior tibial artery. The anterior tibial artery occludes at the proximal segment. LEFT LOWER EXTREMITY CT ANGIOGRAM: 1. The common femoral artery, profunda femoral artery and superficial femoral artery have no significant stenosis. Popliteal artery is patent. 2. Left runoff shows a patent peroneal artery and posterior tibial artery. The anterior tibial artery occludes at the proximal segment
[2016-09-22] MEDS: ceFAZolin 1 GM in Sodium Chloride 0.9% 100 ML IVPB SCH ×2 (14:40→21:07)
[2016-09-22] MEDS: Lactated Ringer's 1,000 ML IV SCH ×2 (14:41→21:16)
[2016-09-22 16:08] LABS: MEAN CELL VOLUME 86.6 fL (80.0-94.0); MEAN CORPUSCULAR HGB CONC 33.5 g/dL (33.0-37.0); MEAN PLATELET VOLUME 7.9 fL (7.2-11.7); RBC 3.3 Mil/uL (4.40-5.90); RED CELL DISTRIBUTION WIDTH 16.3 % (11.5-14.5); WHITE BLOOD COUNT 13.4 K/uL (4.8-10.8)
[2016-09-22 16:22] LABS: HEMOGLOBIN 9.6 g/dL (12.0-18.0)
--- NOTE | 2016-09-22 17:19 | CP.PCM.CON ---
History of Present Illness - History of Present Illness History of Present Illness: 70 year old male with a medical history of HTN, DM, Chronic pancreatitis, carotid stenosis, presents status post thrombectomy. Patient had right leg pain and inability to walk due to pain for one week. He denied having leg swelling or skin changes. Patient is status post carotid endarterectomy and cardiac cath 2 weeks ago. Patient was found to have a right thrombus in the common femoral artery and had a thrombectomy today, 09/22/16. Patient currently reports feeling tired and sore at the operation site. Patient denies having chest pain, palpitations, shortness of breath, abdominal pain, nausea, vomiting, headache, dizziness, diarrhea, and constipation. Review of Systems - Constitutional Constitutional: Fatigue. absent: Headache - EENT Ears: absent: Dizziness - Cardiovascular Cardiovascular: absent: Chest Pain, Dyspnea, Lightheadedness, Palpitations - Respiratory Respiratory: absent: Cough, Dyspnea - Gastrointestinal Gastrointestinal: absent: Abdominal Pain, Constipation, Diarrhea, Nausea, Vomiting - Genitourinary Genitourinary: Urinary Frequency (has not been taking tamsulosin) - Integumentary Integumentary: absent: Erythema, Swelling - Neurological Neurological: absent: Dizziness, Syncope - Psychiatric Psychiatric: Depression - Endocrine Endocrine: Fatigue. absent: Palpitations Past Patient History - Infectious Disease Hx of Infectious Diseases: None - Past Medical History & Family History Past Medical History?: Yes - Past Social History Smoking Status: Heavy Smoker > 10 Cigarettes Daily - CARDIAC Hx Hypertension: Yes - PULMONARY Hx Respiratory Disorders: No - NEUROLOGICAL Hx Vertigo: Yes - HEENT Other/Comment: glasses for reading - RENAL Hx Chronic Kidney Disease: No - ENDOCRINE/METABOLIC Hx Endocrine Disorders: Yes Hx Diabetes Mellitus Type 1: Yes - HEMATOLOGICAL/ONCOLOGICAL Hx Blood Disorders: No - INTEGUMENTARY Hx Dermatological Problems: No - MUSCULOSKELETAL/RHEUMATOLOGICAL Hx Falls: No - GASTROINTESTINAL Hx Pancreatitis: Yes - GENITOURINARY/GYNECOLOGICAL Hx Genitourinary Disorders: Yes Hx Prostate Problems: Yes - PSYCHIATRIC Hx Depression: Yes Hx Substance Use: Yes - SURGICAL HISTORY Hx Surgeries: Yes Other/Comment: cyst drainage - ANESTHESIA Hx Anesthesia: Yes Hx Anesthesia Reactions: No Hx Malignant Hyperthermia: No Meds Allergies/Adverse Reactions: Allergies Allergy/AdvReac Type Severity Reaction Status Date / Time No Known Allergies Allergy Verified 09/20/16 10:13 - Medications Medications: Current Medications Amlodipine Besylate (Norvasc) 10 mg PO DAILY [facility] Last Admin: 09/22/16 10:13 Dose: Not Given Aspirin (Aspirin) 325 mg PO DAILY [facility] Last Admin: 09/22/16 10:12 Dose: Not Given Duloxetine HCl (Cymbalta) 30 mg PO DAILY [facility] Last Admin: 09/22/16 10:12 Dose: Not Given Fluticasone Propionate (Flonase) 2 spr EMMA DAILY [facility] Last Admin: 09/22/16 10:13 Dose: Not Given Glipizide (Glucotrol Xl) 2.5 mg PO DAILY [facility] Last Admin: 09/22/16 10:13 Dose: Not Given Lactated Ringer's (Lactated Ringer's) 1,000 mls @ 100 mls/hr IV .Q10H [facility] Last Admin: 09/22/16 14:41 Dose: 100 mls/hr Cefazolin Sodium 1 gm/ Sodium (Chloride) 100 mls @ 100 mls/hr IVPB Q8H [facility] Stop: 09/23/16 05:59 Last Admin: 09/22/16 14:40 Dose: 100 mls/hr Insulin Aspart (Novolog) 0 unit SC [facility] PRN Reason: Protocol Last Admin: 09/22/16 11:35 Dose: Not Given Insulin Detemir (Levemir) 45 unit SC DAILY [facility] Last Admin: 09/22/16 10:13 Dose: Not Given Metoprolol Tartrate (Lopressor) 100 mg PO BID [facility] Last Admin: 09/22/16 10:13 Dose: Not Given Mirtazapine (Remeron) 30 mg PO [facility] Last Admin: 09/21/16 21:19 Dose: 30 mg Nitroglycerin (Nitro-Bid 2% Oint) 1 ea TOP Q8 PRN PRN Reason: Systolic Blood Pressure Oxycodone/Acetaminophen (Percocet 5/325 Mg Tab) 1 tab PO Q4H PRN PRN Reason: Pain, moderate (4-7) Stop: 09/23/16 17:48 Last Admin: 09/20/16 18:17 Dose: 1 tab Oxycodone/Acetaminophen (Percocet 5/325 Mg Tab) 2 tab PO Q4H PRN PRN Reason: Pain, severe (8-10) Stop: 09/25/16 11:11 Pantoprazole Sodium (Protonix Ec Tab) 40 mg PO DAILY [facility] Last Admin: 09/22/16 10:13 Dose: Not Given Rosuvastatin Calcium (Crestor) 10 mg PO HS [facility] Last Admin: 09/21/16 21:11 Dose: 10 mg Tamsulosin HCl (Flomax) 0.4 mg PO DAILY [facility] Last Admin: 09/22/16 10:12 Dose: Not Given Physical Exam - Head Exam Head Exam: ATRAUMATIC, NORMAL INSPECTION - Eye Exam Eye Exam: EOMI, Normal appearance - ENT Exam ENT Exam: Mucous Membranes Moist - Respiratory Exam Respiratory Exam: Decreased Breath Sounds, NORMAL BREATHING PATTERN - Cardiovascular Exam Cardiovascular Exam: +S1, +S2, Systolic Murmur - GI/Abdominal Exam GI & Abdominal Exam: Normal Bowel Sounds, Soft. absent: Tenderness - Extremities Exam Extremities exam: Positive for: pedal pulses present. Negative for: full ROM ( limited due to pain), pedal edema - Neurological Exam Neurological exam: Alert, Oriented x3 - Psychiatric Exam Psychiatric exam: Normal Affect, Normal Mood - Skin Skin Exam: Dry, Intact (post-op dressing dry), Normal Color, Warm Results - Vital Signs Recent Vital Signs: Last Vital Signs Temp 99 F 09/22/16 14:00 Pulse 97 H 09/22/16 15:00 Resp 22 09/22/16 15:00 BP 119/61 09/22/16 14:42 Pulse Ox 100 09/22/16 15:00 - Labs Result Diagrams: 09/22/16 16:01 09/21/16 08:24 Labs: Laboratory Results - last 24 hr 09/21/16 09/22/16 09/22/16 21:26 06:05 07:45 WBC RBC Hgb Hct MCV MCH MCHC RDW Plt Count MPV Differential Comment Puncture Site pCO2 pO2 HCO3 ABG pH ABG Total CO2 ABG O2 Saturation ABG Base Excess Pawan Test ABG Potassium A-a O2 Difference Respiratory Index Sodium Chloride Glucose Lactate FiO2 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 Crit Value Called By Crit Value Read Back Blood Gas Notified Time POC Glucose (mg/dL) 98 164 H Arterial Blood Potassium Blood Type O POSITIVE Antibody Screen Negative 09/22/16 09/22/16 09/22/16 09:25 09:52 09:58 WBC 6.4 RBC 2.57 L Hgb 7.3 L D Hct 22.2 L MCV 86.5 MCH 28.5 MCHC 32.9 L RDW 17.4 H Plt Count 129 L MPV 8.3 Differential Comment Puncture Site R/rad pCO2 34 L pO2 404 H HCO3 21.3 ABG pH 7.37 ABG Total CO2 20.7 L ABG O2 Saturation 100.0 H ABG Base Excess -4.8 L Pawan Test Pos ABG Potassium 3.6 A-a O2 Difference 267.0 Respiratory Index 0.7 Sodium 137.0 Chloride 114.0 H Glucose 140 H Lactate 0.6 L FiO2 100.0 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 furnace 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 Crit Value Called By Ray oneal crt Crit Value Read Back Y Blood Gas Notified Time 950 POC Glucose (mg/dL) 158 H Arterial Blood Potassium 3.6 Blood Type Antibody Screen 09/22/16 09/22/16 09/22/16 11:45 16:01 16:13 WBC 13.4 H D RBC 3.30 L Hgb 9.6 L D Hct 28.6 L MCV 86.6 MCH 29.0 MCHC 33.5 RDW 16.3 H Plt Count 130 MPV 7.9 Differential Comment Puncture Site pCO2 pO2 HCO3 ABG pH ABG Total CO2 ABG O2 Saturation ABG Base Excess Pawan Test ABG Potassium A-a O2 Difference Respiratory Index Sodium Chloride Glucose Lactate FiO2 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 Crit Value Called By Crit Value Read Back Blood Gas Notified Time POC Glucose (mg/dL) 199 H 181 H Arterial Blood Potassium Blood Type Antibody Screen Assessment & Plan - Assessment and Plan (Free Text) Assessment: Neuro: - Alert and oriented x3 Pulm: -Chest xray: no active pulmonary disease CV: - Right femoral endarterectomy with Bovine patch closure - 700cc blood loss during operation, received 2 units - Cardiology consult- Dr. Elliott - Vascular surgery- Dr. Lorenzo Endo: - Diabetes- Accucheck - Monitor blood glucose GI: - Abdominal Angio: unremarkable CTA of abdomen and Pelvis - non vascular findings: large pancreatic neck mass 3.6 cm with distal pancreatic ductal dilation, common bile duct dilation - R LE: soft tissue abnormality surrounding common femoral artery with air which dissects towards proximal profunda femoral artery and proximal SFA. SFA has moderate plaque throughout with mild stenosis in distal segment; anterior tibial artery occludes at proximal segment. - L LE: no significant stenosis : - Montalvo catheter - Monitor Intakes and Output Heme: - Monitor H/H Renal: - Monitor BUN/Cr Prophylaxis: - DVT: Heparin 5,000 units SC Q8 - GI: Protonix 40mg PO daily - PT/OT
--- NOTE | 2016-09-22 18:45 | CP.PCM.PN ---
Subjective - Date & Time of Evaluation Date of Evaluation: 09/22/16 Time of Evaluation: 14:20 - Subjective Subjective: clinically same Objective - Vital Signs/Intake and Output Vital Signs (last 24 hours): Temp Pulse Resp BP Pulse Ox 99 F 97 H 22 119/61 100 09/22/16 14:00 09/22/16 15:00 09/22/16 15:00 09/22/16 14:42 09/22/16 15:00 Intake and Output: 09/22/16 09/22/16 06:59 18:59 Intake Total 2260 1700 Output Total 1700 480 Balance 560 1220 - Medications Medications: Current Medications Amlodipine Besylate (Norvasc) 10 mg PO DAILY [facility] Last Admin: 09/22/16 10:13 Dose: Not Given Aspirin (Aspirin) 325 mg PO DAILY [facility] Last Admin: 09/22/16 10:12 Dose: Not Given Duloxetine HCl (Cymbalta) 30 mg PO DAILY [facility] Last Admin: 09/22/16 10:12 Dose: Not Given Fluticasone Propionate (Flonase) 2 spr EMMA DAILY [facility] Last Admin: 09/22/16 10:13 Dose: Not Given Glipizide (Glucotrol Xl) 2.5 mg PO DAILY [facility] Last Admin: 09/22/16 10:13 Dose: Not Given Heparin Sodium (Porcine) (Heparin) 5,000 units SC Q8H [facility] Lactated Ringer's (Lactated Ringer's) 1,000 mls @ 100 mls/hr IV .Q10H [facility] Last Admin: 09/22/16 14:41 Dose: 100 mls/hr Cefazolin Sodium 1 gm/ Sodium (Chloride) 100 mls @ 100 mls/hr IVPB Q8H [facility] Stop: 09/23/16 05:59 Last Admin: 09/22/16 14:40 Dose: 100 mls/hr Insulin Aspart (Novolog) 0 unit SC ACHS [facility] PRN Reason: Protocol Last Admin: 09/22/16 17:35 Dose: 1 unit Insulin Detemir (Levemir) 45 unit SC DAILY [facility] Last Admin: 09/22/16 10:13 Dose: Not Given Metoprolol Tartrate (Lopressor) 100 mg PO BID [facility] Last Admin: 09/22/16 17:24 Dose: 100 mg Mirtazapine (Remeron) 30 mg PO HS [facility] Last Admin: 09/21/16 21:19 Dose: 30 mg Nitroglycerin (Nitro-Bid 2% Oint) 1 ea TOP Q8 PRN PRN Reason: Systolic Blood Pressure Oxycodone/Acetaminophen (Percocet 5/325 Mg Tab) 1 tab PO Q4H PRN PRN Reason: Pain, moderate (4-7) Stop: 09/23/16 17:48 Last Admin: 09/20/16 18:17 Dose: 1 tab Oxycodone/Acetaminophen (Percocet 5/325 Mg Tab) 2 tab PO Q4H PRN PRN Reason: Pain, severe (8-10) Stop: 09/25/16 11:11 Pantoprazole Sodium (Protonix Ec Tab) 40 mg PO DAILY [facility] Last Admin: 09/22/16 10:13 Dose: Not Given Rosuvastatin Calcium (Crestor) 10 mg PO [facility] Last Admin: 09/21/16 21:11 Dose: 10 mg Tamsulosin HCl (Flomax) 0.4 mg PO DAILY [facility] Last Admin: 09/22/16 10:12 Dose: Not Given - Labs Labs: 09/22/16 16:01 09/21/16 08:24 PT 12.0 SECONDS (9.7-12.2) 09/21/16 08:24 INR 1.1 09/21/16 08:24 APTT 27 SECONDS (21-34) 09/21/16 08:24 - Constitutional Appears: Well - Head Exam Head Exam: ATRAUMATIC, NORMAL INSPECTION, NORMOCEPHALIC - Eye Exam Eye Exam: EOMI, Normal appearance, PERRL Pupil Exam: NORMAL ACCOMODATION, PERRL - ENT Exam ENT Exam: Mucous Membranes Moist, Normal Exam - Neck Exam Neck Exam: Full ROM, Normal Inspection. absent: Lymphadenopathy - Respiratory Exam Respiratory Exam: Decreased Breath Sounds - Cardiovascular Exam Cardiovascular Exam: REGULAR RHYTHM, +S1, +S2 - GI/Abdominal Exam GI & Abdominal Exam: Soft, Diminished Bowel Sounds - Rectal Exam Rectal Exam: Deferred
--- NOTE | 2016-09-22 19:24 | OP ---
DATE OF SERVICE: 09/22/2016 PREOPERATIVE DIAGNOSIS: Thrombosis, right common femoral artery. POSTOPERATIVE DIAGNOSIS: Thrombosis, right common femoral artery. PROCEDURE CARRIED OUT: Right common femoral endarterectomy with patch angioplasty. SURGEON: Dr. Lorenzo. COMMUNITY AFFAIRS MANAGER: Dr. Jara, resident. ANESTHESIOLOGIST: Dr. Gomez. HISTORY: The patient is an older man who previously underwent a left carotid endarterectomy, prior to that a cardiac catheterization via the right groin, recently developed increasing symptoms in his extremities, increased on the right side. Preoperative imaging based on a CT and an ultrasound demonstrated a thrombosis in the right common femoral artery. OPERATIVE FINDINGS: 1. I did not see a blue stitch consistent with a Perclose. This may have been an Angio-Seal device. However, at this point from that time, it is partially dissolved. 2. There was thrombus as well as a focal occlusion of the artery. At the end of the procedure, we had a palpable posterior tibial pulse in the foot. DESCRIPTION OF PROCEDURE: The patient was given general anesthesia and intravenous antibiotics. Standard skin preparation was carried out. Exposure was obtained of the common femoral and profunda femoris artery. After exposure of the vessels, heparin was given. The vessels were opened. A large amount of debris was removed from the internal surface of the vessel and after we had a relatively clean surface, we then applied a Bovine pericardial patch to this area and sutured into position. After hemostasis was obtained, we closed the wound with Monocryl and Vicryl sutures. We had a blood loss of approximately 700 mL. Two units of blood had been given. There were no operative complications or problems. The patient remained stable throughout the procedure and at the end, he had a palpable pulse in the foot. The operation carried out was a right common femoral endarterectomy with patch angioplasty. Noé Lorenzo Jr., MD
[2016-09-22 20:06] LABS: BASO % 0.3 % (0.0-2.0); EOS % 0.2 % (0.0-4.0); LYMPH # 0.5 K/uL (1.0-4.3); LYMPH % 3.9 % (20.0-40.0); MEAN CELL VOLUME 87.2 fL (80.0-94.0); MEAN CORPUSCULAR HEMOGLOBIN 28.7 pg (27.0-31.0); MEAN CORPUSCULAR HGB CONC 32.9 g/dL (33.0-37.0); MEAN PLATELET VOLUME 8.2 fL (7.2-11.7); MONO # 0.9 K/uL (0.0-0.8); MONO % 6.5 % (0.0-10.0); NEUT # 11.7 K/uL (1.8-7.0); NEUT % 89.1 % (50.0-75.0); PLATELET COUNT 133 K/uL (130-400); RBC 3.13 Mil/uL (4.40-5.90); RED CELL DISTRIBUTION WIDTH 16.8 % (11.5-14.5); WHITE BLOOD COUNT 13.2 K/uL (4.8-10.8)
[2016-09-22 20:14] LABS: ALBUMIN 2.3 g/dL (3.5-5.0)
[2016-09-22 20:17] LABS: ALB/GLOB RATIO 0.8 (1.0-2.1); AST/SGOT 16 U/L (17-59); GFR AFRICAN-AMERICAN > 60; GFR NON-AFRICAN AMERICAN 55
[2016-09-22 20:18] LABS: ALT/SGPT 32 U/L (21-72); BLOOD UREA NITROGEN 19 mg/dL (9-20); CALCIUM 7.6 mg/dl (8.6-10.4)
--- NOTE | 2016-09-22 20:43 | CP.PCM.PN ---
Subjective - Date & Time of Evaluation Date of Evaluation: 09/22/16 Time of Evaluation: 17:20 - Subjective Subjective: Patient s/p Right [employer] surgery Hemodynamically stable Feels better Objective - Vital Signs/Intake and Output Vital Signs (last 24 hours): Temp Pulse Resp BP Pulse Ox 98.2 F 86 24 107/46 L 100 09/22/16 20:00 09/22/16 20:10 09/22/16 20:10 09/22/16 19:42 09/22/16 20:10 Intake and Output: 09/22/16 09/23/16 18:59 06:59 Intake Total 2100 300 Output Total 555 75 Balance 1545 225 - Medications Medications: Current Medications Amlodipine Besylate (Norvasc) 10 mg PO DAILY [facility] Last Admin: 09/22/16 10:13 Dose: Not Given Aspirin (Aspirin) 325 mg PO DAILY [facility] Last Admin: 09/22/16 10:12 Dose: Not Given Duloxetine HCl (Cymbalta) 30 mg PO DAILY [facility] Last Admin: 09/22/16 10:12 Dose: Not Given Fluticasone Propionate (Flonase) 2 spr EMMA DAILY [facility] Last Admin: 09/22/16 10:13 Dose: Not Given Glipizide (Glucotrol Xl) 2.5 mg PO DAILY [facility] Last Admin: 09/22/16 10:13 Dose: Not Given Heparin Sodium (Porcine) (Heparin) 5,000 units SC Q8H [facility] Lactated Ringer's (Lactated Ringer's) 1,000 mls @ 100 mls/hr IV .Q10H [facility] Last Admin: 09/22/16 14:41 Dose: 100 mls/hr Cefazolin Sodium 1 gm/ Sodium (Chloride) 100 mls @ 100 mls/hr IVPB Q8H [facility] Stop: 09/23/16 05:59 Last Admin: 09/22/16 14:40 Dose: 100 mls/hr Insulin Aspart (Novolog) 0 unit SC ACHS [facility] PRN Reason: Protocol Last Admin: 09/22/16 17:35 Dose: 1 unit Insulin Detemir (Levemir) 45 unit SC DAILY [facility] Last Admin: 09/22/16 10:13 Dose: Not Given Metoprolol Tartrate (Lopressor) 100 mg PO BID [facility] Last Admin: 09/22/16 17:24 Dose: 100 mg Mirtazapine (Remeron) 30 mg PO HS [facility] Last Admin: 09/21/16 21:19 Dose: 30 mg Nitroglycerin (Nitro-Bid 2% Oint) 1 ea TOP Q8 PRN PRN Reason: Systolic Blood Pressure Oxycodone/Acetaminophen (Percocet 5/325 Mg Tab) 1 tab PO Q4H PRN PRN Reason: Pain, moderate (4-7) Stop: 09/23/16 17:48 Last Admin: 09/20/16 18:17 Dose: 1 tab Oxycodone/Acetaminophen (Percocet 5/325 Mg Tab) 2 tab PO Q4H PRN PRN Reason: Pain, severe (8-10) Stop: 09/25/16 11:11 Pantoprazole Sodium (Protonix Ec Tab) 40 mg PO DAILY [facility] Last Admin: 09/22/16 10:13 Dose: Not Given Rosuvastatin Calcium (Crestor) 10 mg PO HS [facility] Last Admin: 09/21/16 21:11 Dose: 10 mg Tamsulosin HCl (Flomax) 0.4 mg PO DAILY [facility] Last Admin: 09/22/16 10:12 Dose: Not Given - Labs Labs: 09/22/16 20:03 09/22/16 20:03 PT 12.0 SECONDS (9.7-12.2) 09/21/16 08:24 INR 1.1 09/21/16 08:24 APTT 27 SECONDS (21-34) 09/21/16 08:24
[2016-09-22] MEDS: Oxycodone/Acetaminophen 5/325 mg Tab PO PRN (21:08)
[2016-09-22 21:47] LABS: LYMPHOCYTE 4 % (20-40); MONOCYTE 5 % (0-10); TOTAL CELLS COUNTED 100
[2016-09-22 21:50] LABS: BANDS 10 % (0-2); NEUTROPHIL 81 % (50-75)
[2016-09-22 21:52] LABS: MICROCYTOSIS SLIGHT; PLATELET ESTIMATE NORMAL (NORMAL)
[2016-09-22 21:53] LABS: HYPOCHROMIC SLIGHT; LARGE PLATELETS PRESENT
[2016-09-23] MEDS: ceFAZolin 1 GM in Sodium Chloride 0.9% 100 ML IVPB SCH (05:25)
[2016-09-23 06:29] LABS: BASO # 0.1 K/uL (0.0-0.2); BASO % 0.8 % (0.0-2.0); EOS # 0.3 K/uL (0.0-0.7); EOS % 2.8 % (0.0-4.0); HEMOGLOBIN 9.3 g/dL (12.0-18.0); LYMPH # 0.7 K/uL (1.0-4.3); LYMPH % 6.4 % (20.0-40.0); MEAN CELL VOLUME 86.9 fL (80.0-94.0); MEAN CORPUSCULAR HEMOGLOBIN 29.4 pg (27.0-31.0); MEAN CORPUSCULAR HGB CONC 33.9 g/dL (33.0-37.0); MEAN PLATELET VOLUME 8.5 fL (7.2-11.7); MONO # 0.9 K/uL (0.0-0.8); MONO % 8.3 % (0.0-10.0); NEUT # 8.7 K/uL (1.8-7.0); NEUT % 81.7 % (50.0-75.0); NRBC % 0.1 % (0.0-2.0); PLATELET COUNT 137 K/uL (130-400); RBC 3.16 Mil/uL (4.40-5.90); RED CELL DISTRIBUTION WIDTH 16.5 % (11.5-14.5); WHITE BLOOD COUNT 10.6 K/uL (4.8-10.8)
[2016-09-23 06:36] LABS: INR 1.2; PROTHROMBIN TIME 12.9 SECONDS (9.7-12.2)
[2016-09-23 06:42] LABS: ALBUMIN 2.3 g/dL (3.5-5.0)
[2016-09-23 06:44] LABS: GFR AFRICAN-AMERICAN > 60; GFR NON-AFRICAN AMERICAN 55
[2016-09-23 06:45] LABS: ALB/GLOB RATIO 0.8 (1.0-2.1); ALT/SGPT 28 U/L (21-72); AST/SGOT 18 U/L (17-59); BLOOD UREA NITROGEN 19 mg/dL (9-20)
[2016-09-23 06:46] LABS: CALCIUM 7.9 mg/dl (8.6-10.4); MAGNESIUM 1.5 mg/dL (1.6-2.3)
[2016-09-23] MEDS: (Novolog) Insulin Aspart, Recombinant 100 u/ml 10 ml vial SC SCH ×4 (07:48→21:35)
[2016-09-23] MEDS: Oxycodone/Acetaminophen 5/325 mg Tab PO PRN ×3 (07:55→21:18)
[2016-09-23] MEDS: Lactated Ringer's 1,000 ML IV SCH (08:00)
[2016-09-23 08:26] LABS: BANDS 2 % (0-2); EOSINOPHIL 1 % (0-4); LYMPHOCYTE 2 % (20-40); MONOCYTE 4 % (0-10); NEUTROPHIL 91 % (50-75); TOTAL CELLS COUNTED 100
[2016-09-23 08:27] LABS: PLATELET ESTIMATE NORMAL (NORMAL)
[2016-09-23 08:28] LABS: ANISOCYTOSIS SLIGHT; HYPOCHROMIC SLIGHT; OVALOCYTES SLIGHT; POLYCHROMIC SLIGHT
[2016-09-23 08:29] LABS: BURR CELLS SLIGHT
[2016-09-23] MEDS: GlipiZIDE 2.5 mg SR Tab PO SCH (09:15)
[2016-09-23] MEDS: LIPASE/PROTEASE/AMYLASE 4,200 U ECC PO SCH ×3 (09:16→17:24)
[2016-09-23] MEDS: Pantoprazole 40 mg EC Tab PO SCH (09:17)
[2016-09-23] MEDS: Fluticasone Nasal 50 mcg/Spray NAS SCH (09:19)
[2016-09-23] MEDS: Insulin Detemir 100 units/ml Vial (Levemir) SC SCH (09:20)
[2016-09-23] MEDS ORDERED: Magnesium Sulfate 1 gm in D5W 1 GM/100 ML BAG IVPB ONE (12:00)
--- NOTE | 2016-09-23 14:36 | CP.CCUPN ---
<Sosa Garcia - Last Filed: 09/23/16 14:33> CCU Subjective - Physician Review Subjective (Free Text): Patient was seen and examined at bedside in the morning. Patient reports having pain in his right leg, soreness in his abdomen, and an on-and-off headache. He alsp reports having a sore throat which he states he thinks it may be from surgery. Patient denies having chest pain, shortness of breath, palpitations, nausea, vomiting, diarrhea, and fevers. Patient is stable for transfer to inpatient medicine. 09/23/16 14:48 CCU Objective - Vital Signs / Intake & Output Vital Signs (Last 4 hours): Vital Signs Temp Pulse Resp BP Pulse Ox 09/23/16 14:20 65 15 85 L 09/23/16 14:10 59 L 17 96 09/23/16 14:00 63 15 89 L 09/23/16 13:50 64 16 09/23/16 13:43 65 16 108/72 09/23/16 13:40 60 15 90 L 09/23/16 13:30 64 14 82 L 09/23/16 13:20 63 16 92 L 09/23/16 13:10 61 16 84 L 09/23/16 13:00 65 13 84 L 09/23/16 12:50 64 12 90 L 09/23/16 12:46 85 100 09/23/16 12:42 66 15 114/46 L 99 09/23/16 12:40 64 12 80 L 09/23/16 12:30 65 14 97 09/23/16 12:20 66 16 09/23/16 12:10 65 15 97 09/23/16 12:00 97.5 F L 66 20 90 L 09/23/16 11:51 66 19 105/50 L 94 L 09/23/16 11:50 69 13 09/23/16 11:43 72 11 L 193/142 H 09/23/16 11:40 72 13 09/23/16 11:30 65 12 85 L 09/23/16 11:20 72 14 80 L 09/23/16 11:10 72 12 99 09/23/16 11:00 71 12 100 09/23/16 10:50 76 10 L 93 L 09/23/16 10:42 74 13 101/52 L 100 09/23/16 10:40 76 21 100 Intake and Output (Last 8hrs): Intake & Output 09/22/16 09/23/16 09/23/16 22:59 06:59 14:59 Intake Total 1550 900 700 Output Total 400 410 125 Balance 1150 490 575 Intake: Intake, IV Amount 1000 900 700 Left Forearm 200 Left Hand 800 900 700 Oral 550 Output: Urine 400 410 125 Urethral (Montalvo) 400 410 125 Other: # Voids Urethral (Montalvo) 0 # Bowel Movements 0 - Physical Exam Head: Positive for: Atraumatic, Normocephalic Extroacular Muscles: Positive for: EOMI Respiratory/Chest: Positive for: Clear to Auscultation. Negative for: Wheezes, Rales, Rhonchi Cardiovascular: Positive for: Murmurs, Normal S1, S2 Abdomen: Positive for: Tenderness (sore post-surgery) Upper Extremity: Positive for: Normal Inspection Lower Extremity: Positive for: Normal Inspection, NORMAL PULSES. Negative for: Edema Skin: Positive for: Warm, Dry, Normal Color Psychiatric: Positive for: Alert, Oriented x 3 - Medications Active Medications: Active Medications Generic Name Dose Route Start Last Admin Trade Name Freq PRN Reason Stop Dose Admin Amlodipine Besylate 10 mg 09/21/16 10:00 09/23/16 09:16 Norvasc PO 10 mg DAILY [facility] Administration Aspirin 325 mg 09/21/16 10:00 09/23/16 09:13 Aspirin PO 325 mg DAILY [facility] Administration Duloxetine HCl 30 mg 09/21/16 10:00 09/23/16 09:14 Cymbalta PO 30 mg DAILY [facility] Administration Fluticasone Propionate 2 spr 09/21/16 10:00 09/23/16 09:19 Flonase EMMA 2 spr DAILY [facility] Administration Glipizide 2.5 mg 09/21/16 10:00 09/23/16 09:15 Glucotrol Xl PO 2.5 mg DAILY [facility] Administration Heparin Sodium (Porcine) 5,000 units 09/23/16 22:00 Heparin SC Q12 [facility] Insulin Aspart 0 unit 09/23/16 09:45 09/23/16 11:18 Novolog SC 10 unit ACHS [facility] Administration Protocol Insulin Detemir 45 unit 09/21/16 10:00 09/23/16 09:20 Levemir SC 45 unit DAILY [facility] Administration Metoprolol Tartrate 100 mg 09/20/16 18:00 09/23/16 09:15 Lopressor PO 100 mg BID [facility] Administration Mirtazapine 30 mg 09/20/16 22:00 09/22/16 21:43 Remeron PO 30 mg HS [facility] Administration Nicotine 1 patch 09/23/16 10:15 09/23/16 11:18 Nicoderm Cq TD Not Given DAILY [facility] Nitroglycerin 1 ea 09/22/16 12:59 Nitro-Bid 2% Oint TOP Q8 PRN Systolic Blood Pressure Oxycodone/Acetaminophen 1 tab 09/20/16 17:47 09/23/16 13:49 Percocet 5/325 Mg Tab PO 09/23/16 17:48 1 tab Q4H PRN Administration Pain, moderate (4-7) Oxycodone/Acetaminophen 2 tab 09/22/16 11:10 09/23/16 07:55 Percocet 5/325 Mg Tab PO 09/25/16 11:11 2 tab Q4H PRN Administration Pain, severe (8-10) Pantoprazole Sodium 40 mg 09/21/16 10:00 09/23/16 09:17 Protonix Ec Tab PO 40 mg DAILY [facility] Administration Rosuvastatin Calcium 10 mg 09/20/16 22:00 09/22/16 21:07 Crestor PO 10 mg HS [facility] Administration Tamsulosin HCl 0.4 mg 09/21/16 10:00 09/23/16 09:14 Flomax PO 0.4 mg DAILY [facility] Administration - Patient Studies Lab Studies: Lab Studies 09/23/16 09/23/16 09/23/16 Range/Units 11:10 07:31 06:22 WBC (4.8-10.8) K/uL RBC (4.40-5.90) Mil/uL Hgb (12.0-18.0) g/dL Hct (35.0-51.0) % MCV (80.0-94.0) fL MCH (27.0-31.0) pg MCHC (33.0-37.0) g/dL RDW (11.5-14.5) % Plt Count (130-400) K/uL MPV (7.2-11.7) fL Neut % (Auto) (50.0-75.0) % Lymph % (Auto) (20.0-40.0) % [place] % (Auto) (0.0-10.0) % Eos % (Auto) (0.0-4.0) % Baso % (Auto) (0.0-2.0) % Neut # (1.8-7.0) K/uL Lymph # (1.0-4.3) K/uL [place] # (0.0-0.8) K/uL Eos # (0.0-0.7) K/uL Baso # (0.0-0.2) K/uL Neutrophils % (Manual) (50-75) % Band Neutrophils % (0-2) % Lymphocytes % (Manual) (20-40) % Monocytes % (Manual) (0-10) % Eosinophils % (Manual) (0-4) % Platelet Estimate (NORMAL) Large Platelets Polychromasia Hypochromasia (manual) Anisocytosis (manual) Microcytosis (manual) Ovalocytes [place] Cells PT (9.7-12.2) SECONDS INR APTT (21-34) SECONDS Sodium 135 (132-148) mmol/L Potassium 4.4 (3.6-5.2) mmol/L Chloride 102 (98-107) mmol/L Carbon Dioxide 22 (22-30) mmol/L Anion Gap 15 (10-20) BUN 19 (9-20) mg/dL Creatinine 1.3 (0.8-1.5) MG/DL Est GFR ( Amer) > 60 Est GFR (Non-Af Amer) 55 POC Glucose (mg/dL) 359 H 273 H (65-110) mg/dL Random Glucose 259 H (75-110) mg/dL Calcium 7.9 L (8.6-10.4) mg/dl Phosphorus 4.7 H (2.5-4.5) mg/dL Magnesium 1.5 L (1.6-2.3) mg/dL Total Bilirubin 0.5 (0.2-1.3) mg/dL AST 18 (17-59) U/L ALT 28 (21-72) U/L Alkaline Phosphatase 163 H (38-126) U/L Total Protein 5.2 L (6.3-8.3) g/dL Albumin 2.3 L (3.5-5.0) g/dL Globulin 2.9 (2.2-3.9) gm/dL Albumin/Globulin Ratio 0.8 L (1.0-2.1) 09/23/16 09/23/16 09/22/16 Range/Units 06:22 06:22 21:36 WBC 10.6 (4.8-10.8) K/uL RBC 3.16 L (4.40-5.90) Mil/uL Hgb 9.3 L (12.0-18.0) g/dL Hct 27.4 L (35.0-51.0) % MCV 86.9 (80.0-94.0) fL MCH 29.4 (27.0-31.0) pg MCHC 33.9 (33.0-37.0) g/dL RDW 16.5 H (11.5-14.5) % Plt Count 137 (130-400) K/uL MPV 8.5 (7.2-11.7) fL Neut % (Auto) 81.7 H (50.0-75.0) % Lymph % (Auto) 6.4 L (20.0-40.0) % [place] % (Auto) 8.3 (0.0-10.0) % Eos % (Auto) 2.8 (0.0-4.0) % Baso % (Auto) 0.8 (0.0-2.0) % Neut # 8.7 H (1.8-7.0) K/uL Lymph # 0.7 L (1.0-4.3) K/uL [place] # 0.9 H (0.0-0.8) K/uL Eos # 0.3 (0.0-0.7) K/uL Baso # 0.1 (0.0-0.2) K/uL Neutrophils % (Manual) 91 H (50-75) % Band Neutrophils % 2 (0-2) % Lymphocytes % (Manual) 2 L (20-40) % Monocytes % (Manual) 4 (0-10) % Eosinophils % (Manual) 1 (0-4) % Platelet Estimate Normal (NORMAL) Large Platelets Polychromasia Slight Hypochromasia (manual) Slight Anisocytosis (manual) Slight Microcytosis (manual) Ovalocytes Slight [place] Cells Slight PT 12.9 H (9.7-12.2) SECONDS INR 1.2 APTT 28 (21-34) SECONDS Sodium (132-148) mmol/L Potassium (3.6-5.2) mmol/L Chloride (98-107) mmol/L Carbon Dioxide (22-30) mmol/L Anion Gap (10-20) BUN (9-20) mg/dL Creatinine (0.8-1.5) MG/DL Est GFR ( Amer) Est GFR (Non-Af Amer) POC Glucose (mg/dL) 237 H (65-110) mg/dL Random Glucose (75-110) mg/dL Calcium (8.6-10.4) mg/dl Phosphorus (2.5-4.5) mg/dL Magnesium (1.6-2.3) mg/dL Total Bilirubin (0.2-1.3) mg/dL AST (17-59) U/L ALT (21-72) U/L Alkaline Phosphatase (38-126) U/L Total Protein (6.3-8.3) g/dL Albumin (3.5-5.0) g/dL Globulin (2.2-3.9) gm/dL Albumin/Globulin Ratio (1.0-2.1) 09/22/16 09/22/16 09/22/16 Range/Units 21:15 20:03 20:03 WBC 13.2 H (4.8-10.8) K/uL RBC 3.13 L (4.40-5.90) Mil/uL Hgb 9.0 L (12.0-18.0) g/dL Hct 27.3 L (35.0-51.0) % MCV 87.2 (80.0-94.0) fL MCH 28.7 (27.0-31.0) pg MCHC 32.9 L (33.0-37.0) g/dL RDW 16.8 H (11.5-14.5) % Plt Count 133 (130-400) K/uL MPV 8.2 (7.2-11.7) fL Neut % (Auto) 89.1 H (50.0-75.0) % Lymph % (Auto) 3.9 L (20.0-40.0) % [place] % (Auto) 6.5 (0.0-10.0) % Eos % (Auto) 0.2 (0.0-4.0) % Baso % (Auto) 0.3 (0.0-2.0) % Neut # 11.7 H (1.8-7.0) K/uL Lymph # 0.5 L (1.0-4.3) K/uL [place] # 0.9 H (0.0-0.8) K/uL Eos # 0.0 (0.0-0.7) K/uL Baso # 0.0 (0.0-0.2) K/uL Neutrophils % (Manual) 81 H (50-75) % Band Neutrophils % 10 H (0-2) % Lymphocytes % (Manual) 4 L (20-40) % Monocytes % (Manual) 5 (0-10) % Eosinophils % (Manual) (0-4) % Platelet Estimate Normal (NORMAL) Large Platelets Present Polychromasia Hypochromasia (manual) Slight Anisocytosis (manual) Microcytosis (manual) Slight Ovalocytes [place] Cells PT (9.7-12.2) SECONDS INR APTT (21-34) SECONDS Sodium 133 (132-148) mmol/L Potassium 4.5 (3.6-5.2) mmol/L Chloride 101 (98-107) mmol/L Carbon Dioxide 19 L (22-30) mmol/L Anion Gap 18 (10-20) BUN 19 (9-20) mg/dL Creatinine 1.3 (0.8-1.5) MG/DL Est GFR ( Amer) > 60 Est GFR (Non-Af Amer) 55 POC Glucose (mg/dL) 264 H (65-110) mg/dL Random Glucose 224 H (75-110) mg/dL Calcium 7.6 L (8.6-10.4) mg/dl Phosphorus (2.5-4.5) mg/dL Magnesium (1.6-2.3) mg/dL Total Bilirubin 0.8 (0.2-1.3) mg/dL AST 16 L (17-59) U/L ALT 32 (21-72) U/L Alkaline Phosphatase 143 H (38-126) U/L Total Protein 5.0 L (6.3-8.3) g/dL Albumin 2.3 L (3.5-5.0) g/dL Globulin 2.8 (2.2-3.9) gm/dL Albumin/Globulin Ratio 0.8 L (1.0-2.1) 09/22/16 09/22/16 Range/Units 16:13 16:01 WBC 13.4 H D (4.8-10.8) K/uL RBC 3.30 L (4.40-5.90) Mil/uL Hgb 9.6 L D (12.0-18.0) g/dL Hct 28.6 L (35.0-51.0) % MCV 86.6 (80.0-94.0) fL MCH 29.0 (27.0-31.0) pg MCHC 33.5 (33.0-37.0) g/dL RDW 16.3 H (11.5-14.5) % Plt Count 130 (130-400) K/uL MPV 7.9 (7.2-11.7) fL Neut % (Auto) (50.0-75.0) % Lymph % (Auto) (20.0-40.0) % [place] % (Auto) (0.0-10.0) % Eos % (Auto) (0.0-4.0) % Baso % (Auto) (0.0-2.0) % Neut # (1.8-7.0) K/uL Lymph # (1.0-4.3) K/uL [place] # (0.0-0.8) K/uL Eos # (0.0-0.7) K/uL Baso # (0.0-0.2) K/uL Neutrophils % (Manual) (50-75) % Band Neutrophils % (0-2) % Lymphocytes % (Manual) (20-40) % Monocytes % (Manual) (0-10) % Eosinophils % (Manual) (0-4) % Platelet Estimate (NORMAL) Large Platelets Polychromasia Hypochromasia (manual) Anisocytosis (manual) Microcytosis (manual) Ovalocytes [place] Cells PT (9.7-12.2) SECONDS INR APTT (21-34) SECONDS Sodium (132-148) mmol/L Potassium (3.6-5.2) mmol/L Chloride (98-107) mmol/L Carbon Dioxide (22-30) mmol/L Anion Gap (10-20) BUN (9-20) mg/dL Creatinine (0.8-1.5) MG/DL Est GFR ( Amer) Est GFR (Non-Af Amer) POC Glucose (mg/dL) 181 H (65-110) mg/dL Random Glucose (75-110) mg/dL Calcium (8.6-10.4) mg/dl Phosphorus (2.5-4.5) mg/dL Magnesium (1.6-2.3) mg/dL Total Bilirubin (0.2-1.3) mg/dL AST (17-59) U/L ALT (21-72) U/L Alkaline Phosphatase (38-126) U/L Total Protein (6.3-8.3) g/dL Albumin (3.5-5.0) g/dL Globulin (2.2-3.9) gm/dL Albumin/Globulin Ratio (1.0-2.1) Laboratory Results - last 24 hr 09/22/16 09/22/16 09/22/16 16:01 16:13 20:03 WBC 13.4 H D 13.2 H RBC 3.30 L 3.13 L Hgb 9.6 L D 9.0 L Hct 28.6 L 27.3 L MCV 86.6 87.2 MCH 29.0 28.7 MCHC 33.5 32.9 L RDW 16.3 H 16.8 H Plt Count 130 133 MPV 7.9 8.2 Neut % (Auto) 89.1 H Lymph % (Auto) 3.9 L [place] % (Auto) 6.5 Eos % (Auto) 0.2 Baso % (Auto) 0.3 Neut # 11.7 H Lymph # 0.5 L [place] # 0.9 H Eos # 0.0 Baso # 0.0 Neutrophils % (Manual) 81 H Band Neutrophils % 10 H Lymphocytes % (Manual) 4 L Monocytes % (Manual) 5 Eosinophils % (Manual) Platelet Estimate Normal Large Platelets Present Polychromasia Hypochromasia (manual) Slight Anisocytosis (manual) Microcytosis (manual) Slight Ovalocytes [place] Cells PT INR APTT Sodium Potassium Chloride Carbon Dioxide Anion Gap BUN Creatinine Est GFR ( Amer) Est GFR (Non-Af Amer) POC Glucose (mg/dL) 181 H Random Glucose Calcium Phosphorus Magnesium Total Bilirubin AST ALT Alkaline Phosphatase Total Protein Albumin Globulin Albumin/Globulin Ratio 09/22/16 09/22/16 09/22/16 20:03 21:15 21:36 WBC RBC Hgb Hct MCV MCH MCHC RDW Plt Count MPV Neut % (Auto) Lymph % (Auto) [place] % (Auto) Eos % (Auto) Baso % (Auto) Neut # Lymph # [place] # Eos # Baso # Neutrophils % (Manual) Band Neutrophils % Lymphocytes % (Manual) Monocytes % (Manual) Eosinophils % (Manual) Platelet Estimate Large Platelets Polychromasia Hypochromasia (manual) Anisocytosis (manual) Microcytosis (manual) Ovalocytes [place] Cells PT INR APTT Sodium 133 Potassium 4.5 Chloride 101 Carbon Dioxide 19 L Anion Gap 18 BUN 19 Creatinine 1.3 Est GFR ( Amer) > 60 Est GFR (Non-Af Amer) 55 POC Glucose (mg/dL) 264 H 237 H Random Glucose 224 H Calcium 7.6 L Phosphorus Magnesium Total Bilirubin 0.8 AST 16 L ALT 32 Alkaline Phosphatase 143 H Total Protein 5.0 L Albumin 2.3 L Globulin 2.8 Albumin/Globulin Ratio 0.8 L 09/23/16 09/23/16 09/23/16 06:22 06:22 06:22 WBC 10.6 RBC 3.16 L Hgb 9.3 L Hct 27.4 L MCV 86.9 MCH 29.4 MCHC 33.9 RDW 16.5 H Plt Count 137 MPV 8.5 Neut % (Auto) 81.7 H Lymph % (Auto) 6.4 L [place] % (Auto) 8.3 Eos % (Auto) 2.8 Baso % (Auto) 0.8 Neut # 8.7 H Lymph # 0.7 L [place] # 0.9 H Eos # 0.3 Baso # 0.1 Neutrophils % (Manual) 91 H Band Neutrophils % 2 Lymphocytes % (Manual) 2 L Monocytes % (Manual) 4 Eosinophils % (Manual) 1 Platelet Estimate Normal Large Platelets Polychromasia Slight Hypochromasia (manual) Slight Anisocytosis (manual) Slight Microcytosis (manual) Ovalocytes Slight [place] Cells Slight PT 12.9 H INR 1.2 APTT 28 Sodium 135 Potassium 4.4 Chloride 102 Carbon Dioxide 22 Anion Gap 15 BUN 19 Creatinine 1.3 Est GFR ( Amer) > 60 Est GFR (Non-Af Amer) 55 POC Glucose (mg/dL) Random Glucose 259 H Calcium 7.9 L Phosphorus 4.7 H Magnesium 1.5 L Total Bilirubin 0.5 AST 18 ALT 28 Alkaline Phosphatase 163 H Total Protein 5.2 L Albumin 2.3 L Globulin 2.9 Albumin/Globulin Ratio 0.8 L 09/23/16 09/23/16 07:31 11:10 WBC RBC Hgb Hct MCV MCH MCHC RDW Plt Count MPV Neut % (Auto) Lymph % (Auto) [place] % (Auto) Eos % (Auto) Baso % (Auto) Neut # Lymph # [place] # Eos # Baso # Neutrophils % (Manual) Band Neutrophils % Lymphocytes % (Manual) Monocytes % (Manual) Eosinophils % (Manual) Platelet Estimate Large Platelets Polychromasia Hypochromasia (manual) Anisocytosis (manual) Microcytosis (manual) Ovalocytes [place] Cells PT INR APTT Sodium Potassium Chloride Carbon Dioxide Anion Gap BUN Creatinine Est GFR ( Amer) Est GFR (Non-Af Amer) POC Glucose (mg/dL) 273 H 359 H Random Glucose Calcium Phosphorus Magnesium Total Bilirubin AST ALT Alkaline Phosphatase Total Protein Albumin Globulin Albumin/Globulin Ratio Fingerstick Blood Sugar Results: 164 Review of Systems - Constitutional Constitutional: absent: Fever - EENT Ears: absent: Dizziness Nose/Mouth/Throat: Sore Throat - Cardiovascular Cardiovascular: absent: Chest Pain, Dyspnea, Edema, Palpitations - Respiratory Respiratory: absent: Cough, Dyspnea - Gastrointestinal Gastrointestinal: absent: Abdominal Pain, Constipation, Diarrhea, Nausea, Vomiting - Musculoskeletal Musculoskeletal: Other (pain and soreness of the abdominal, right leg, and surgical site) - Neurological Neurological: Headaches. absent: Dizziness - Endocrine Endocrine: absent: Palpitations Critical Care Progress Note - Nutrition Nutrition: Nutrition Category Date Time Status Consistent Carbohydrate [DIET] Diets 09/23/16 Lunch Active Assessment/Plan - Assessment and Plan (Free Text) Assessment: Patient is stable for transfer to inpatient medicine. Neuro: - Alert and oriented x3 ENT: - sore throat likely secondary to intubation/extubation Pulm: - Chest xray: no active pulmonary disease - Current smoker: nicotine patch 21mg/day TD daily CV: - Right femoral endarterectomy with Bovine patch closure - 700cc blood loss during operation, received 2 units - Cardiology consult- Dr. Elliott - Vascular surgery- Dr. 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 SFA has moderate plaque throughout with mild stenosis in distal segment; anterior tibial artery occludes at proximal segment. - L LE: no significant stenosis : - [place] catheter - Monitor Intakes and Output Heme: - Monitor H/H Renal: - Monitor BUN/Cr - Hypomagnesemia (1.5)-Magnesium sulfate drip 1gm@100mls/hr Prophylaxis: - DVT: Heparin 5,000 units SC Q8 - GI: Protonix 40mg PO daily - PT/OT <Javier Keating - Last Filed: 09/23/16 18:22> CCU Objective - Vital Signs / Intake & Output Vital Signs (Last 4 hours): Vital Signs Temp Pulse Resp BP Pulse Ox 09/23/16 17:20 68 14 100 09/23/16 17:10 67 14 98 09/23/16 17:00 71 19 98 09/23/16 16:50 70 12 97 09/23/16 16:42 65 14 93/44 L 98 09/23/16 16:40 66 15 97 09/23/16 16:30 67 17 98 09/23/16 16:20 68 17 98 09/23/16 16:17 65 14 85/45 L 98 09/23/16 16:16 68 14 70/46 L 98 09/23/16 16:10 70 18 68/48 L 09/23/16 16:00 97.8 F 65 13 92 L 09/23/16 15:50 67 15 93 L 09/23/16 15:44 68 15 83/31 L 87 L 09/23/16 15:40 66 16 79 L 09/23/16 15:30 65 15 91 L 09/23/16 15:20 64 14 92 L 09/23/16 15:10 66 18 09/23/16 15:00 65 19 88 L 09/23/16 14:50 60 16 87 L 09/23/16 14:42 66 17 108/50 L 84 L 09/23/16 14:40 64 15 82 L 09/23/16 14:30 67 21 85 L Intake and Output (Last 8hrs): Intake & Output 09/23/16 09/23/16 09/23/16 06:59 14:59 22:59 Intake Total 900 700 Output Total 410 125 225 Balance 490 575 -225 Intake: Intake, IV Amount 900 700 Left Hand 900 700 Output: Urine 410 125 225 Urethral (Montalvo) 410 125 225 Other: # Voids Urethral (Montalvo) 0 0 # Bowel Movements 0 0 - Medications Active Medications: Active Medications Generic Name Dose Route Start Last Admin Trade Name Freq PRN Reason Stop Dose Admin Amlodipine Besylate 10 mg 09/21/16 10:00 09/23/16 09:16 Norvasc PO 10 mg DAILY [facility] Administration Aspirin 325 mg 09/21/16 10:00 09/23/16 09:13 Aspirin PO 325 mg DAILY [facility] Administration Duloxetine HCl 30 mg 09/21/16 10:00 09/23/16 09:14 Cymbalta PO 30 mg DAILY [facility] Administration Fluticasone Propionate 2 spr 09/21/16 10:00 09/23/16 09:19 Flonase EMMA 2 spr DAILY [facility] Administration Glipizide 2.5 mg 09/21/16 10:00 09/23/16 09:15 Glucotrol Xl PO 2.5 mg DAILY [facility] Administration Heparin Sodium (Porcine) 5,000 units 09/23/16 22:00 Heparin SC Q12 [facility] Insulin Aspart 0 unit 09/23/16 09:45 09/23/16 17:26 Novolog SC 4 unit ACHS [facility] Administration Protocol Insulin Detemir 45 unit 09/21/16 10:00 09/23/16 09:20 Levemir SC 45 unit DAILY [facility] Administration Metoprolol Tartrate 100 mg 09/20/16 18:00 09/23/16 09:15 Lopressor PO 100 mg BID [facility] Administration Mirtazapine 30 mg 09/20/16 22:00 09/22/16 21:43 Remeron PO 30 mg HS [facility] Administration Nicotine 1 patch 09/23/16 10:15 09/23/16 11:18 Nicoderm Cq TD Not Given DAILY [facility] Nitroglycerin 1 ea 09/22/16 12:59 Nitro-Bid 2% Oint TOP Q8 PRN Systolic Blood Pressure Oxycodone/Acetaminophen 2 tab 09/22/16 11:10 09/23/16 07:55 Percocet 5/325 Mg Tab PO 09/25/16 11:11 2 tab Q4H PRN Administration Pain, severe (8-10) Pantoprazole Sodium 40 mg 09/21/16 10:00 09/23/16 09:17 Protonix Ec Tab PO 40 mg DAILY [facility] Administration Rosuvastatin Calcium 10 mg 09/20/16 22:00 09/22/16 21:07 Crestor PO 10 mg HS [facility] Administration Tamsulosin HCl 0.4 mg 09/21/16 10:00 09/23/16 09:14 Flomax PO 0.4 mg DAILY [facility] Administration - Patient Studies Lab Studies: Lab Studies 09/23/16 09/23/16 09/23/16 Range/Units 16:15 11:10 07:31 WBC (4.8-10.8) K/uL RBC (4.40-5.90) Mil/uL Hgb (12.0-18.0) g/dL Hct (35.0-51.0) % MCV (80.0-94.0) fL MCH (27.0-31.0) pg MCHC (33.0-37.0) g/dL RDW (11.5-14.5) % Plt Count (130-400) K/uL MPV (7.2-11.7) fL Neut % (Auto) (50.0-75.0) % Lymph % (Auto) (20.0-40.0) % [place] % (Auto) (0.0-10.0) % Eos % (Auto) (0.0-4.0) % Baso % (Auto) (0.0-2.0) % Neut # (1.8-7.0) K/uL Lymph # (1.0-4.3) K/uL [place] # (0.0-0.8) K/uL Eos # (0.0-0.7) K/uL Baso # (0.0-0.2) K/uL Neutrophils % (Manual) (50-75) % Band Neutrophils % (0-2) % Lymphocytes % (Manual) (20-40) % Monocytes % (Manual) (0-10) % Eosinophils % (Manual) (0-4) % Platelet Estimate (NORMAL) Large Platelets Polychromasia Hypochromasia (manual) Anisocytosis (manual) Microcytosis (manual) Ovalocytes [place] Cells PT (9.7-12.2) SECONDS INR APTT (21-34) SECONDS Sodium (132-148) mmol/L Potassium (3.6-5.2) mmol/L Chloride (98-107) mmol/L Carbon Dioxide (22-30) mmol/L Anion Gap (10-20) BUN (9-20) mg/dL Creatinine (0.8-1.5) MG/DL Est GFR ( Amer) Est GFR (Non-Af Amer) POC Glucose (mg/dL) 211 H 359 H 273 H (65-110) mg/dL Random Glucose (75-110) mg/dL Calcium (8.6-10.4) mg/dl Phosphorus (2.5-4.5) mg/dL Magnesium (1.6-2.3) mg/dL Total Bilirubin (0.2-1.3) mg/dL AST (17-59) U/L ALT (21-72) U/L Alkaline Phosphatase (38-126) U/L Total Protein (6.3-8.3) g/dL Albumin (3.5-5.0) g/dL Globulin (2.2-3.9) gm/dL Albumin/Globulin Ratio (1.0-2.1) 09/23/16 09/23/16 09/23/16 Range/Units 06:22 06:22 06:22 WBC 10.6 (4.8-10.8) K/uL RBC 3.16 L (4.40-5.90) Mil/uL Hgb 9.3 L (12.0-18.0) g/dL Hct 27.4 L (35.0-51.0) % MCV 86.9 (80.0-94.0) fL MCH 29.4 (27.0-31.0) pg MCHC 33.9 (33.0-37.0) g/dL RDW 16.5 H (11.5-14.5) % Plt Count 137 (130-400) K/uL MPV 8.5 (7.2-11.7) fL Neut % (Auto) 81.7 H (50.0-75.0) % Lymph % (Auto) 6.4 L (20.0-40.0) % Hays % (Auto) 8.3 (0.0-10.0) % Eos % (Auto) 2.8 (0.0-4.0) % Baso % (Auto) 0.8 (0.0-2.0) % Neut # 8.7 H (1.8-7.0) K/uL Lymph # 0.7 L (1.0-4.3) K/uL Hays # 0.9 H (0.0-0.8) K/uL Eos # 0.3 (0.0-0.7) K/uL Baso # 0.1 (0.0-0.2) K/uL Neutrophils % (Manual) 91 H (50-75) % Band Neutrophils % 2 (0-2) % Lymphocytes % (Manual) 2 L (20-40) % Monocytes % (Manual) 4 (0-10) % Eosinophils % (Manual) 1 (0-4) % Platelet Estimate Normal (NORMAL) Large Platelets Polychromasia Slight Hypochromasia (manual) Slight Anisocytosis (manual) Slight Microcytosis (manual) Ovalocytes Slight Mayelin Cells Slight PT 12.9 H (9.7-12.2) SECONDS INR 1.2 APTT 28 (21-34) SECONDS Sodium 135 (132-148) mmol/L Potassium 4.4 (3.6-5.2) mmol/L Chloride 102 (98-107) mmol/L Carbon Dioxide 22 (22-30) mmol/L Anion Gap 15 (10-20) BUN 19 (9-20) mg/dL Creatinine 1.3 (0.8-1.5) MG/DL Est GFR ( Amer) > 60 Est GFR (Non-Af Amer) 55 POC Glucose (mg/dL) (65-110) mg/dL Random Glucose 259 H (75-110) mg/dL Calcium 7.9 L (8.6-10.4) mg/dl Phosphorus 4.7 H (2.5-4.5) mg/dL Magnesium 1.5 L (1.6-2.3) mg/dL Total Bilirubin 0.5 (0.2-1.3) mg/dL AST 18 (17-59) U/L ALT 28 (21-72) U/L Alkaline Phosphatase 163 H (38-126) U/L Total Protein 5.2 L (6.3-8.3) g/dL Albumin 2.3 L (3.5-5.0) g/dL Globulin 2.9 (2.2-3.9) gm/dL Albumin/Globulin Ratio 0.8 L (1.0-2.1) 09/22/16 09/22/16 09/22/16 Range/Units 21:36 21:15 20:03 WBC (4.8-10.8) K/uL RBC (4.40-5.90) Mil/uL Hgb (12.0-18.0) g/dL Hct (35.0-51.0) % MCV (80.0-94.0) fL MCH (27.0-31.0) pg MCHC (33.0-37.0) g/dL RDW (11.5-14.5) % Plt Count (130-400) K/uL MPV (7.2-11.7) fL Neut % (Auto) (50.0-75.0) % Lymph % (Auto) (20.0-40.0) % Hays % (Auto) (0.0-10.0) % Eos % (Auto) (0.0-4.0) % Baso % (Auto) (0.0-2.0) % Neut # (1.8-7.0) K/uL Lymph # (1.0-4.3) K/uL Hays # (0.0-0.8) K/uL Eos # (0.0-0.7) K/uL Baso # (0.0-0.2) K/uL Neutrophils % (Manual) (50-75) % Band Neutrophils % (0-2) % Lymphocytes % (Manual) (20-40) % Monocytes % (Manual) (0-10) % Eosinophils % (Manual) (0-4) % Platelet Estimate (NORMAL) Large Platelets Polychromasia Hypochromasia (manual) Anisocytosis (manual) Microcytosis (manual) Ovalocytes Mayelin Cells PT (9.7-12.2) SECONDS INR APTT (21-34) SECONDS Sodium 133 (132-148) mmol/L Potassium 4.5 (3.6-5.2) mmol/L Chloride 101 (98-107) mmol/L Carbon Dioxide 19 L (22-30) mmol/L Anion Gap 18 (10-20) BUN 19 (9-20) mg/dL Creatinine 1.3 (0.8-1.5) MG/DL Est GFR ( Amer) > 60 Est GFR (Non-Af Amer) 55 POC Glucose (mg/dL) 237 H 264 H (65-110) mg/dL Random Glucose 224 H (75-110) mg/dL Calcium 7.6 L (8.6-10.4) mg/dl Phosphorus (2.5-4.5) mg/dL Magnesium (1.6-2.3) mg/dL Total Bilirubin 0.8 (0.2-1.3) mg/dL AST 16 L (17-59) U/L ALT 32 (21-72) U/L Alkaline Phosphatase 143 H (38-126) U/L Total Protein 5.0 L (6.3-8.3) g/dL Albumin 2.3 L (3.5-5.0) g/dL Globulin 2.8 (2.2-3.9) gm/dL Albumin/Globulin Ratio 0.8 L (1.0-2.1) 09/22/16 Range/Units 20:03 WBC 13.2 H (4.8-10.8) K/uL RBC 3.13 L (4.40-5.90) Mil/uL Hgb 9.0 L (12.0-18.0) g/dL Hct 27.3 L (35.0-51.0) % MCV 87.2 (80.0-94.0) fL MCH 28.7 (27.0-31.0) pg MCHC 32.9 L (33.0-37.0) g/dL RDW 16.8 H (11.5-14.5) % Plt Count 133 (130-400) K/uL MPV 8.2 (7.2-11.7) fL Neut % (Auto) 89.1 H (50.0-75.0) % Lymph % (Auto) 3.9 L (20.0-40.0) % [place] % (Auto) 6.5 (0.0-10.0) % Eos % (Auto) 0.2 (0.0-4.0) % Baso % (Auto) 0.3 (0.0-2.0) % Neut # 11.7 H (1.8-7.0) K/uL Lymph # 0.5 L (1.0-4.3) K/uL [place] # 0.9 H (0.0-0.8) K/uL Eos # 0.0 (0.0-0.7) K/uL Baso # 0.0 (0.0-0.2) K/uL Neutrophils % (Manual) 81 H (50-75) % Band Neutrophils % 10 H (0-2) % Lymphocytes % (Manual) 4 L (20-40) % Monocytes % (Manual) 5 (0-10) % Eosinophils % (Manual) (0-4) % Platelet Estimate Normal (NORMAL) Large Platelets Present Polychromasia Hypochromasia (manual) Slight Anisocytosis (manual) Microcytosis (manual) Slight Ovalocytes [place] Cells PT (9.7-12.2) SECONDS INR APTT (21-34) SECONDS Sodium (132-148) mmol/L Potassium (3.6-5.2) mmol/L Chloride (98-107) mmol/L Carbon Dioxide (22-30) mmol/L Anion Gap (10-20) BUN (9-20) mg/dL Creatinine (0.8-1.5) MG/DL Est GFR ( Amer) Est GFR (Non-Af Amer) POC Glucose (mg/dL) (65-110) mg/dL Random Glucose (75-110) mg/dL Calcium (8.6-10.4) mg/dl Phosphorus (2.5-4.5) mg/dL Magnesium (1.6-2.3) mg/dL Total Bilirubin (0.2-1.3) mg/dL AST (17-59) U/L ALT (21-72) U/L Alkaline Phosphatase (38-126) U/L Total Protein (6.3-8.3) g/dL Albumin (3.5-5.0) g/dL Globulin (2.2-3.9) gm/dL Albumin/Globulin Ratio (1.0-2.1) Laboratory Results - last 24 hr 09/22/16 09/22/16 09/22/16 20:03 20:03 21:15 WBC 13.2 H RBC 3.13 L Hgb 9.0 L Hct 27.3 L MCV 87.2 MCH 28.7 MCHC 32.9 L RDW 16.8 H Plt Count 133 MPV 8.2 Neut % (Auto) 89.1 H Lymph % (Auto) 3.9 L [place] % (Auto) 6.5 Eos % (Auto) 0.2 Baso % (Auto) 0.3 Neut # 11.7 H Lymph # 0.5 L [place] # 0.9 H Eos # 0.0 Baso # 0.0 Neutrophils % (Manual) 81 H Band Neutrophils % 10 H Lymphocytes % (Manual) 4 L Monocytes % (Manual) 5 Eosinophils % (Manual) Platelet Estimate Normal Large Platelets Present Polychromasia Hypochromasia (manual) Slight Anisocytosis (manual) Microcytosis (manual) Slight Ovalocytes [place] Cells PT INR APTT Sodium 133 Potassium 4.5 Chloride 101 Carbon Dioxide 19 L Anion Gap 18 BUN 19 Creatinine 1.3 Est GFR ( Amer) > 60 Est GFR (Non-Af Amer) 55 POC Glucose (mg/dL) 264 H Random Glucose 224 H Calcium 7.6 L Phosphorus Magnesium Total Bilirubin 0.8 AST 16 L ALT 32 Alkaline Phosphatase 143 H Total Protein 5.0 L Albumin 2.3 L Globulin 2.8 Albumin/Globulin Ratio 0.8 L 09/22/16 09/23/16 09/23/16 21:36 06:22 06:22 WBC 10.6 RBC 3.16 L Hgb 9.3 L Hct 27.4 L MCV 86.9 MCH 29.4 MCHC 33.9 RDW 16.5 H Plt Count 137 MPV 8.5 Neut % (Auto) 81.7 H Lymph % (Auto) 6.4 L [place] % (Auto) 8.3 Eos % (Auto) 2.8 Baso % (Auto) 0.8 Neut # 8.7 H Lymph # 0.7 L [place] # 0.9 H Eos # 0.3 Baso # 0.1 Neutrophils % (Manual) 91 H Band Neutrophils % 2 Lymphocytes % (Manual) 2 L Monocytes % (Manual) 4 Eosinophils % (Manual) 1 Platelet Estimate Normal Large Platelets Polychromasia Slight Hypochromasia (manual) Slight Anisocytosis (manual) Slight Microcytosis (manual) Ovalocytes Slight Mayelin Cells Slight PT 12.9 H INR 1.2 APTT 28 Sodium Potassium Chloride Carbon Dioxide Anion Gap BUN Creatinine Est GFR ( Amer) Est GFR (Non-Af Amer) POC Glucose (mg/dL) 237 H Random Glucose Calcium Phosphorus Magnesium Total Bilirubin AST ALT Alkaline Phosphatase Total Protein Albumin Globulin Albumin/Globulin Ratio 09/23/16 09/23/16 09/23/16 06:22 07:31 11:10 WBC RBC Hgb Hct MCV MCH MCHC RDW Plt Count MPV Neut % (Auto) Lymph % (Auto) Hays % (Auto) Eos % (Auto) Baso % (Auto) Neut # Lymph # [place] # Eos # Baso # Neutrophils % (Manual) Band Neutrophils % Lymphocytes % (Manual) Monocytes % (Manual) Eosinophils % (Manual) Platelet Estimate Large Platelets Polychromasia Hypochromasia (manual) Anisocytosis (manual) Microcytosis (manual) Ovalocytes Mayelin Cells PT INR APTT Sodium 135 Potassium 4.4 Chloride 102 Carbon Dioxide 22 Anion Gap 15 BUN 19 Creatinine 1.3 Est GFR ( Amer) > 60 Est GFR (Non-Af Amer) 55 POC Glucose (mg/dL) 273 H 359 H Random Glucose 259 H Calcium 7.9 L Phosphorus 4.7 H Magnesium 1.5 L Total Bilirubin 0.5 AST 18 ALT 28 Alkaline Phosphatase 163 H Total Protein 5.2 L Albumin 2.3 L Globulin 2.9 Albumin/Globulin Ratio 0.8 L 09/23/16 16:15 WBC RBC Hgb Hct MCV MCH MCHC RDW Plt Count MPV Neut % (Auto) Lymph % (Auto) [place] % (Auto) Eos % (Auto) Baso % (Auto) Neut # Lymph # [place] # Eos # Baso # Neutrophils % (Manual) Band Neutrophils % Lymphocytes % (Manual) Monocytes % (Manual) Eosinophils % (Manual) Platelet Estimate Large Platelets Polychromasia Hypochromasia (manual) Anisocytosis (manual) Microcytosis (manual) Ovalocytes Mayelin Cells PT INR APTT Sodium Potassium Chloride Carbon Dioxide Anion Gap BUN Creatinine Est GFR ( Amer) Est GFR (Non-Af Amer) POC Glucose (mg/dL) 211 H Random Glucose Calcium Phosphorus Magnesium Total Bilirubin AST ALT Alkaline Phosphatase Total Protein Albumin Globulin Albumin/Globulin Ratio Critical Care Progress Note - Nutrition Nutrition: Nutrition Category Date Time Status Consistent Carbohydrate [DIET] Diets 09/23/16 Lunch Active Attending/Attestation - Attestation I have personally seen and examined this patient.: Yes I have fully participated in the care of the patient.: Yes I have reviewed all pertinent clinical information: Yes Notes (Text): 09/23/16 18:22 Patient seen and examined in the intensive care unit. Case discussed with house staff in the morning. Right femoral endarterectomy with Bovine patch closure Stable for transfer to floor
--- NOTE | 2016-09-23 15:14 | CP.PCM.PN ---
Subjective - Date & Time of Evaluation Date of Evaluation: 09/23/16 Time of Evaluation: 07:00 - Subjective Subjective: VASCULAR SURGERY PROGRESS NOTE FOR DR. LORENZO Patient seen and examined at bedside in the ICU. He reports having a sore throat. He had some pain in his leg upon moving of the leg. He is tolerating his CLD and denies nausea or vomiting. Per nurse, there were no acute events overnight. His BP was monitored via A line, and he did not require Nitro overnight. He had 1300cc urine output from the Montalvo, which was removed at 6: 30AM. Objective - Vital Signs/Intake and Output Vital Signs (last 24 hours): Temp Pulse Resp BP Pulse Ox 97.5 F L 65 15 108/72 85 L 09/23/16 12:00 09/23/16 14:20 09/23/16 14:20 09/23/16 13:43 09/23/16 14:20 Intake and Output: 09/23/16 09/23/16 06:59 18:59 Intake Total 1650 700 Output Total 580 125 Balance 1070 575 - Medications Medications: Current Medications Amlodipine Besylate (Norvasc) 10 mg PO DAILY [facility] Last Admin: 09/23/16 09:16 Dose: 10 mg Aspirin (Aspirin) 325 mg PO DAILY [facility] Last Admin: 09/23/16 09:13 Dose: 325 mg Duloxetine HCl (Cymbalta) 30 mg PO DAILY [facility] Last Admin: 09/23/16 09:14 Dose: 30 mg Fluticasone Propionate (Flonase) 2 spr EMMA DAILY [facility] Last Admin: 09/23/16 09:19 Dose: 2 spr Glipizide (Glucotrol Xl) 2.5 mg PO DAILY [facility] Last Admin: 09/23/16 09:15 Dose: 2.5 mg Heparin Sodium (Porcine) (Heparin) 5,000 units SC Q12 [facility] Insulin Aspart (Novolog) 0 unit SC ACHS [facility] PRN Reason: Protocol Last Admin: 09/23/16 11:18 Dose: 10 unit Insulin Detemir (Levemir) 45 unit SC DAILY [facility] [place] Last Admin: 09/23/16 09:20 Dose: 45 unit Metoprolol Tartrate (Lopressor) 100 mg PO BID [facility] Last Admin: 09/23/16 09:15 Dose: 100 mg Mirtazapine (Remeron) 30 mg PO HS [facility] [place] Last Admin: 09/22/16 21:43 Dose: 30 mg Nicotine (Nicoderm Cq) 1 patch TD DAILY [facility] [place] Last Admin: 09/23/16 11:18 Dose: Not Given Nitroglycerin (Nitro-Bid 2% Oint) 1 ea TOP Q8 PRN PRN Reason: Systolic Blood Pressure Oxycodone/Acetaminophen (Percocet 5/325 Mg Tab) 1 tab PO Q4H PRN PRN Reason: Pain, moderate (4-7) Stop: 09/23/16 17:48 Last Admin: 09/23/16 13:49 Dose: 1 tab Oxycodone/Acetaminophen (Percocet 5/325 Mg Tab) 2 tab PO Q4H PRN PRN Reason: Pain, severe (8-10) Stop: 09/25/16 11:11 Last Admin: 09/23/16 07:55 Dose: 2 tab Pantoprazole Sodium (Protonix Ec Tab) 40 mg PO DAILY [facility] Last Admin: 09/23/16 09:17 Dose: 40 mg Rosuvastatin Calcium (Crestor) 10 mg PO [facility] Last Admin: 09/22/16 21:07 Dose: 10 mg Tamsulosin HCl (Flomax) 0.4 mg PO DAILY [facility] Last Admin: 09/23/16 09:14 Dose: 0.4 mg - Labs Labs: 09/23/16 06:22 09/23/16 06:22 PT 12.9 SECONDS (9.7-12.2) H 09/23/16 06:22 INR 1.2 09/23/16 06:22 APTT 28 SECONDS (21-34) 09/23/16 06:22 - Constitutional Appears: Non-toxic, No Acute Distress - Head Exam Head Exam: ATRAUMATIC, NORMAL INSPECTION - Respiratory Exam Respiratory Exam: NORMAL BREATHING PATTERN. absent: Respiratory Distress - Cardiovascular Exam Cardiovascular Exam: +S1, +S2 - Extremities Exam Additional comments: Dressing to right groin clean/dry/intact Dopplerable signals to right DP and PT No edema or erythema - Neurological Exam Neurological Exam: Alert, Awake, Oriented x3 - Psychiatric Exam Psychiatric exam: Normal Affect, Normal Mood - Skin Skin Exam: Dry, Normal Color, Warm Assessment and Plan - Assessment and Plan (Free Text) Assessment: 70yo M with right femoral artery stenosis s/p catheterization now s/p right femoral endarterectomy w/ bovine patch closure POD#1 - Afebrile, VSS - BP controlled, A line removed - H&H stable post op, s/p 2 units intraoperatively yesterday - Good urine output overnight, Montalvo removed - Sore throat secondary to intubation - Aspirin restarted - Started on Heparin BID PPx - PT ordered - Advanced to CCD diet - Discussed plan with Dr. Lorenzo
--- NOTE | 2016-09-23 17:15 | CP.PCM.PN ---
Subjective - Date & Time of Evaluation Date of Evaluation: 09/23/16 Time of Evaluation: 15:00 - Subjective Subjective: clinically same Objective - Vital Signs/Intake and Output Vital Signs (last 24 hours): Temp Pulse Resp BP Pulse Ox 97.8 F 68 17 85/45 L 98 09/23/16 16:00 09/23/16 16:20 09/23/16 16:20 09/23/16 16:17 09/23/16 16:20 Intake and Output: 09/23/16 09/23/16 06:59 18:59 Intake Total 1650 700 Output Total 580 350 Balance 1070 350 - Medications Medications: Current Medications Amlodipine Besylate (Norvasc) 10 mg PO DAILY [facility] Last Admin: 09/23/16 09:16 Dose: 10 mg Aspirin (Aspirin) 325 mg PO DAILY [facility] Last Admin: 09/23/16 09:13 Dose: 325 mg Duloxetine HCl (Cymbalta) 30 mg PO DAILY [facility] Last Admin: 09/23/16 09:14 Dose: 30 mg Fluticasone Propionate (Flonase) 2 spr EMMA DAILY [facility] Last Admin: 09/23/16 09:19 Dose: 2 spr Glipizide (Glucotrol Xl) 2.5 mg PO DAILY [facility] Last Admin: 09/23/16 09:15 Dose: 2.5 mg Heparin Sodium (Porcine) (Heparin) 5,000 units SC Q12 [facility] Insulin Aspart (Novolog) 0 unit SC ACHS [facility] PRN Reason: Protocol Last Admin: 09/23/16 11:18 Dose: 10 unit Insulin Detemir (Levemir) 45 unit SC DAILY [facility] Last Admin: 09/23/16 09:20 Dose: 45 unit Metoprolol Tartrate (Lopressor) 100 mg PO BID [facility] Last Admin: 09/23/16 09:15 Dose: 100 mg Mirtazapine (Remeron) 30 mg PO HS [facility] Last Admin: 09/22/16 21:43 Dose: 30 mg Nicotine (Nicoderm Cq) 1 patch TD DAILY [facility] Last Admin: 09/23/16 11:18 Dose: Not Given Nitroglycerin (Nitro-Bid 2% Oint) 1 ea TOP Q8 PRN PRN Reason: Systolic Blood Pressure Oxycodone/Acetaminophen (Percocet 5/325 Mg Tab) 1 tab PO Q4H PRN PRN Reason: Pain, moderate (4-7) Stop: 09/23/16 17:48 Last Admin: 09/23/16 13:49 Dose: 1 tab Oxycodone/Acetaminophen (Percocet 5/325 Mg Tab) 2 tab PO Q4H PRN PRN Reason: Pain, severe (8-10) Stop: 09/25/16 11:11 Last Admin: 09/23/16 07:55 Dose: 2 tab Pantoprazole Sodium (Protonix Ec Tab) 40 mg PO DAILY [facility] Last Admin: 09/23/16 09:17 Dose: 40 mg Rosuvastatin Calcium (Crestor) 10 mg PO HS [facility] Last Admin: 09/22/16 21:07 Dose: 10 mg Tamsulosin HCl (Flomax) 0.4 mg PO DAILY [facility] Last Admin: 09/23/16 09:14 Dose: 0.4 mg - Labs Labs: 09/23/16 06:22 09/23/16 06:22 PT 12.9 SECONDS (9.7-12.2) H 09/23/16 06:22 INR 1.2 09/23/16 06:22 APTT 28 SECONDS (21-34) 09/23/16 06:22 - Constitutional Appears: Well - Head Exam Head Exam: ATRAUMATIC, NORMAL INSPECTION, NORMOCEPHALIC - Eye Exam Eye Exam: EOMI, Normal appearance, PERRL Pupil Exam: NORMAL ACCOMODATION, PERRL - ENT Exam ENT Exam: Mucous Membranes Moist, Normal Exam - Neck Exam Neck Exam: Full ROM, Normal Inspection. absent: Lymphadenopathy - Respiratory Exam Respiratory Exam: Decreased Breath Sounds - Cardiovascular Exam Cardiovascular Exam: REGULAR RHYTHM, +S1, +S2 - GI/Abdominal Exam GI & Abdominal Exam: Soft, Diminished Bowel Sounds - Rectal Exam Rectal Exam: Deferred Assessment and Plan - Assessment and Plan (Free Text) Plan: Continue same patient has a sore throat Patient is afebrile H&H Vascular surgery follow-up Clerk Stenographer follow-up Encourage the diet Continue Cory As ordered No need for antibiotic for the sore throat will monitor the patient's closely
--- NOTE | 2016-09-23 17:24 | CP.PCM.PN ---
Subjective - Date & Time of Evaluation Date of Evaluation: 09/23/16 Time of Evaluation: 08:05 - Subjective Subjective: Patient seen and evaluated Feels much better Not much pain in the right leg No cardiac symptoms Time spent for evaluation 45 minutes Objective - Vital Signs/Intake and Output Vital Signs (last 24 hours): Temp Pulse Resp BP Pulse Ox 97.8 F 68 17 85/45 L 98 09/23/16 16:00 09/23/16 16:20 09/23/16 16:20 09/23/16 16:17 09/23/16 16:20 Intake and Output: 09/23/16 09/23/16 06:59 18:59 Intake Total 1650 700 Output Total 580 350 Balance 1070 350 - Medications Medications: Current Medications Amlodipine Besylate (Norvasc) 10 mg PO DAILY [facility] Last Admin: 09/23/16 09:16 Dose: 10 mg Aspirin (Aspirin) 325 mg PO DAILY [facility] Last Admin: 09/23/16 09:13 Dose: 325 mg Duloxetine HCl (Cymbalta) 30 mg PO DAILY [facility] Last Admin: 09/23/16 09:14 Dose: 30 mg Fluticasone Propionate (Flonase) 2 spr EMMA DAILY [facility] Last Admin: 09/23/16 09:19 Dose: 2 spr Glipizide (Glucotrol Xl) 2.5 mg PO DAILY [facility] Last Admin: 09/23/16 09:15 Dose: 2.5 mg Heparin Sodium (Porcine) (Heparin) 5,000 units SC Q12 [facility] Insulin Aspart (Novolog) 0 unit SC ACHS [facility] PRN Reason: Protocol Last Admin: 09/23/16 11:18 Dose: 10 unit Insulin Detemir (Levemir) 45 unit SC DAILY [facility] Last Admin: 09/23/16 09:20 Dose: 45 unit Metoprolol Tartrate (Lopressor) 100 mg PO BID [facility] Last Admin: 09/23/16 09:15 Dose: 100 mg Mirtazapine (Remeron) 30 mg PO HS [facility] Last Admin: 09/22/16 21:43 Dose: 30 mg Nicotine (Nicoderm Cq) 1 patch TD DAILY [facility] Last Admin: 09/23/16 11:18 Dose: Not Given Nitroglycerin (Nitro-Bid 2% Oint) 1 ea TOP Q8 PRN PRN Reason: Systolic Blood Pressure Oxycodone/Acetaminophen (Percocet 5/325 Mg Tab) 1 tab PO Q4H PRN PRN Reason: Pain, moderate (4-7) Stop: 09/23/16 17:48 Last Admin: 09/23/16 13:49 Dose: 1 tab Oxycodone/Acetaminophen (Percocet 5/325 Mg Tab) 2 tab PO Q4H PRN PRN Reason: Pain, severe (8-10) Stop: 09/25/16 11:11 Last Admin: 09/23/16 07:55 Dose: 2 tab Pantoprazole Sodium (Protonix Ec Tab) 40 mg PO DAILY [facility] Last Admin: 09/23/16 09:17 Dose: 40 mg Rosuvastatin Calcium (Crestor) 10 mg PO HS [facility] Last Admin: 09/22/16 21:07 Dose: 10 mg Tamsulosin HCl (Flomax) 0.4 mg PO DAILY [facility] Last Admin: 09/23/16 09:14 Dose: 0.4 mg - Labs Labs: 09/23/16 06:22 09/23/16 06:22 PT 12.9 SECONDS (9.7-12.2) H 09/23/16 06:22 INR 1.2 09/23/16 06:22 APTT 28 SECONDS (21-34) 09/23/16 06:22
[2016-09-24] MEDS: Oxycodone/Acetaminophen 5/325 mg Tab PO PRN ×2 (01:55→11:59)
[2016-09-24 06:30] LABS: BASO % 0.5 % (0.0-2.0); EOS # 0.4 K/uL (0.0-0.7); EOS % 4.5 % (0.0-4.0); HEMOGLOBIN 8.7 g/dL (12.0-18.0); LYMPH # 0.7 K/uL (1.0-4.3); LYMPH % 7.8 % (20.0-40.0); MEAN CELL VOLUME 87.4 fL (80.0-94.0); MEAN CORPUSCULAR HEMOGLOBIN 29.1 pg (27.0-31.0); MEAN CORPUSCULAR HGB CONC 33.3 g/dL (33.0-37.0); MEAN PLATELET VOLUME 8.1 fL (7.2-11.7); MONO # 0.6 K/uL (0.0-0.8); MONO % 7.2 % (0.0-10.0); NEUT # 6.9 K/uL (1.8-7.0); PLATELET COUNT 156 K/uL (130-400); WHITE BLOOD COUNT 8.6 K/uL (4.8-10.8)
[2016-09-24 06:41] LABS: ALBUMIN 2.4 g/dL (3.5-5.0); CALCIUM 7.7 mg/dl (8.6-10.4); MAGNESIUM 1.8 mg/dL (1.6-2.3)
[2016-09-24 06:54] LABS: ALB/GLOB RATIO 0.9 (1.0-2.1)
[2016-09-24] MEDS: (Novolog) Insulin Aspart, Recombinant 100 u/ml 10 ml vial SC SCH ×4 (07:58→22:05)
[2016-09-24] MEDS: LIPASE/PROTEASE/AMYLASE 4,200 U ECC PO SCH ×3 (08:31→17:42)
[2016-09-24 08:33] LABS: BANDS 1 % (0-2); EOSINOPHIL 3 % (0-4); LYMPHOCYTE 2 % (20-40); MONOCYTE 4 % (0-10); NEUTROPHIL 90 % (50-75); TOTAL CELLS COUNTED 100
[2016-09-24 08:34] LABS: ANISOCYTOSIS SLIGHT; PLATELET ESTIMATE NORMAL (NORMAL)
[2016-09-24 08:35] LABS: HYPOCHROMIC SLIGHT; OVALOCYTES SLIGHT
[2016-09-24 08:36] LABS: TEARDROP CELLS SLIGHT
[2016-09-24 08:37] LABS: BURR CELLS SLIGHT
[2016-09-24] MEDS: Sodium Chloride 0.9% 1,000 ML IV SCH (09:02)
[2016-09-24] MEDS: Fluticasone Nasal 50 mcg/Spray NAS SCH (09:13)
[2016-09-24] MEDS: Pantoprazole 40 mg EC Tab PO SCH (09:13)
[2016-09-24] MEDS: GlipiZIDE 2.5 mg SR Tab PO SCH (09:13)
--- NOTE | 2016-09-24 09:13 | CP.PCM.PN ---
Subjective - Date & Time of Evaluation Date of Evaluation: 09/24/16 Time of Evaluation: 07:00 - Subjective Subjective: VASCULAR SURGERY PROGRESS NOTE FOR DR. DENIS Patient seen and examined at bedside in the ICU. He reports some pain in his leg. He is able to move his legs and toes. Yesterday he moved OOB to chair with physical therapy. He is voiding on his own. Objective - Vital Signs/Intake and Output Vital Signs (last 24 hours): Temp Pulse Resp BP Pulse Ox 98.1 F 76 18 122/59 L 97 09/24/16 04:00 09/24/16 04:00 09/24/16 04:00 09/24/16 04:00 09/24/16 04:00 Intake and Output: 09/24/16 09/24/16 06:59 18:59 Intake Total 400 Output Total 850 700 Balance -450 -700 - Medications Medications: Current Medications Amlodipine Besylate (Norvasc) 10 mg PO DAILY [facility] Last Admin: 09/23/16 09:16 Dose: 10 mg Aspirin (Aspirin) 325 mg PO DAILY [facility] Last Admin: 09/23/16 09:13 Dose: 325 mg Duloxetine HCl (Cymbalta) 30 mg PO DAILY [facility] Last Admin: 09/23/16 09:14 Dose: 30 mg Fluticasone Propionate (Flonase) 2 spr EMMA DAILY [facility] Last Admin: 09/23/16 09:19 Dose: 2 spr Glipizide (Glucotrol Xl) 2.5 mg PO DAILY [facility] Last Admin: 09/23/16 09:15 Dose: 2.5 mg Heparin Sodium (Porcine) (Heparin) 5,000 units SC Q12 [facility] Last Admin: 09/23/16 21:21 Dose: 5,000 units Sodium Chloride (Sodium Chloride 0.9%) 1,000 mls @ 50 mls/hr IV .Q20H [facility] Insulin Aspart (Novolog) 0 unit SC ACHS [facility] PRN Reason: Protocol Last Admin: 09/24/16 07:58 Dose: Not Given Insulin Detemir (Levemir) 45 unit SC DAILY [facility] Last Admin: 09/23/16 09:20 Dose: 45 unit Metoprolol Tartrate (Lopressor) 100 mg PO BID [facility] Last Admin: 09/23/16 18:59 Dose: Not Given Mirtazapine (Remeron) 30 mg PO [facility] Last Admin: 09/23/16 21:21 Dose: 30 mg Nicotine (Nicoderm Cq) 1 patch TD DAILY [facility] Last Admin: 09/23/16 11:18 Dose: Not Given Nitroglycerin (Nitro-Bid 2% Oint) 1 ea TOP Q8 PRN PRN Reason: Systolic Blood Pressure Oxycodone/Acetaminophen (Percocet 5/325 Mg Tab) 2 tab PO Q4H PRN PRN Reason: Pain, severe (8-10) Stop: 09/25/16 11:11 Last Admin: 09/24/16 01:55 Dose: 2 tab Pantoprazole Sodium (Protonix Ec Tab) 40 mg PO DAILY [facility] Last Admin: 09/23/16 09:17 Dose: 40 mg Rosuvastatin Calcium (Crestor) 10 mg PO [facility] Last Admin: 09/23/16 21:21 Dose: 10 mg Tamsulosin HCl (Flomax) 0.4 mg PO DAILY [facility] Last Admin: 09/23/16 09:14 Dose: 0.4 mg - Labs Labs: 09/24/16 06:23 09/24/16 06:21 PT 12.9 SECONDS (9.7-12.2) H 09/23/16 06:22 INR 1.2 09/23/16 06:22 APTT 28 SECONDS (21-34) 09/23/16 06:22 - Constitutional Appears: Non-toxic, No Acute Distress - Head Exam Head Exam: ATRAUMATIC, NORMAL INSPECTION - Eye Exam Eye Exam: EOMI, Normal appearance - Respiratory Exam Respiratory Exam: NORMAL BREATHING PATTERN. absent: Respiratory Distress - Cardiovascular Exam Cardiovascular Exam: +S1, +S2 - Extremities Exam Additional comments: Good ROM Doppler signals present to bilateral DP and PT Dressing clean/dry/intact Bilateral extremities warm, no edema - Neurological Exam Neurological Exam: Alert, Awake, Oriented x3 - Psychiatric Exam Psychiatric exam: Normal Affect, Normal Mood - Skin Skin Exam: Dry, Normal Color, Warm Assessment and Plan - Assessment and Plan (Free Text) Assessment: 70yo M with right femoral artery stenosis s/p catheterization now s/p right femoral endarterectomy w/ bovine patch closure POD#2 - Afebrile, VSS - H&H stable post op - Cr increased to 1.6 from 1.3, restarted IV fluids @50cc/hr - On Aspirin - On Heparin BID PPx - OOB to chair with PT, encouraged ambulation - Tolerating CCD diet - Clear for DC to rehab from surgical standpoint - Should take vitamins and iron supplementation - Discussed plan with Dr. Maura Mckeon PGY-3
[2016-09-24] MEDS: Insulin Detemir 100 units/ml Vial (Levemir) SC SCH (09:17)
--- NOTE | 2016-09-24 11:48 | CP.PCM.PN ---
Subjective - Date & Time of Evaluation Date of Evaluation: 09/24/16 Time of Evaluation: 14:20 - Subjective Subjective: clinically same Objective - Vital Signs/Intake and Output Vital Signs (last 24 hours): Temp Pulse Resp BP Pulse Ox 97.4 F L 74 13 100/52 L 96 09/24/16 08:00 09/24/16 08:00 09/24/16 08:00 09/24/16 08:00 09/24/16 08:00 Intake and Output: 09/24/16 09/24/16 06:59 18:59 Intake Total 400 300 Output Total 850 1300 Balance -450 -1000 - Medications Medications: Current Medications Amlodipine Besylate (Norvasc) 10 mg PO DAILY [facility] Last Admin: 09/23/16 09:16 Dose: 10 mg Aspirin (Aspirin) 325 mg PO DAILY [facility] Last Admin: 09/24/16 09:12 Dose: 325 mg Duloxetine HCl (Cymbalta) 30 mg PO DAILY [facility] Last Admin: 09/24/16 09:13 Dose: 30 mg Ferrous Sulfate (Feosol) 325 mg PO DAILY [facility] Fluticasone Propionate (Flonase) 2 spr [facility]MA DAILY [facility] Last Admin: 09/24/16 09:13 Dose: 2 spr Glipizide (Glucotrol Xl) 2.5 mg PO DAILY [facility] Last Admin: 09/24/16 09:13 Dose: 2.5 mg Heparin Sodium (Porcine) (Heparin) 5,000 units SC Q12 [facility] Last Admin: 09/24/16 09:14 Dose: 5,000 units Sodium Chloride (Sodium Chloride 0.9%) 1,000 mls @ 50 mls/hr IV .Q20H [facility] Last Admin: 09/24/16 09:02 Dose: 50 mls/hr Insulin Aspart (Novolog) 0 unit SC ACHS [facility] PRN Reason: Protocol Last Admin: 09/24/16 07:58 Dose: Not Given Insulin Detemir (Levemir) 45 unit SC DAILY [facility] Last Admin: 09/24/16 09:17 Dose: 45 unit Metoprolol Tartrate (Lopressor) 100 mg PO BID [facility] Last Admin: 09/24/16 09:18 Dose: Not Given Mirtazapine (Remeron) 30 mg PO HS [facility] Last Admin: 09/23/16 21:21 Dose: 30 mg Multivitamins (Hexavitamin) 1 tab PO DAILY [facility] Nicotine (Nicoderm Cq) 1 patch TD DAILY [facility] Last Admin: 09/24/16 09:15 Dose: Not Given Nitroglycerin (Nitro-Bid 2% Oint) 1 ea TOP Q8 PRN PRN Reason: Systolic Blood Pressure Oxycodone/Acetaminophen (Percocet 5/325 Mg Tab) 2 tab PO Q4H PRN PRN Reason: Pain, severe (8-10) Stop: 09/25/16 11:11 Last Admin: 09/24/16 01:55 Dose: 2 tab Pantoprazole Sodium (Protonix Ec Tab) 40 mg PO DAILY [facility] Last Admin: 09/24/16 09:13 Dose: 40 mg Rosuvastatin Calcium (Crestor) 10 mg PO HS [facility] Last Admin: 09/23/16 21:21 Dose: 10 mg Tamsulosin HCl (Flomax) 0.4 mg PO DAILY [facility] Last Admin: 09/24/16 09:13 Dose: 0.4 mg - Labs Labs: 09/24/16 06:23 09/24/16 06:21 PT 12.9 SECONDS (9.7-12.2) H 09/23/16 06:22 INR 1.2 09/23/16 06:22 APTT 28 SECONDS (21-34) 09/23/16 06:22 - Constitutional Appears: Well - Head Exam Head Exam: ATRAUMATIC, NORMAL INSPECTION, NORMOCEPHALIC - Eye Exam Eye Exam: EOMI, Normal appearance, PERRL Pupil Exam: NORMAL ACCOMODATION, PERRL - ENT Exam ENT Exam: Mucous Membranes Moist, Normal Exam - Neck Exam Neck Exam: Full ROM, Normal Inspection. absent: Lymphadenopathy - Respiratory Exam Respiratory Exam: Decreased Breath Sounds - Cardiovascular Exam Cardiovascular Exam: REGULAR RHYTHM, +S1, +S2 - GI/Abdominal Exam GI & Abdominal Exam: Soft, Diminished Bowel Sounds - Rectal Exam Rectal Exam: Deferred Assessment and Plan (1) Claudication Status: Acute (2) Femoral artery thrombosis, right Status: Acute (3) Abdominal pain Status: Acute (4) Carotid stenosis Status: Acute (5) Diabetes mellitus, insulin dependent (IDDM), uncontrolled Status: Acute (6) Distal radius fracture, right Status: Acute (7) Hyperglycemia Status: Acute (8) Hypoglycemia Status: Acute (9) Pancreatitis Status: Acute (10) Syncope Status: Acute - Assessment and Plan (Free Text) Plan: Case seen and discussed with the staff and is able to move the legs he was more out of bed to the chair continue same denies any pain continue heparin the 5000 subcu twice daily Continue metoprolol other medications Follow-up with the Dr. Rawls Possible discharge if okay with Dr. Person Continue medication as ordered Continue IV fluids slowly
[2016-09-24] MEDS: Multiple Vitamins Tab PO SCH (11:52)
--- NOTE | 2016-09-24 23:26 | CP.PCM.PN ---
Subjective - Date & Time of Evaluation Date of Evaluation: 09/24/16 Time of Evaluation: 06:30 - Subjective Subjective: Patient seen and evaluated Comfortable Improved pain in Right leg. ambulating Objective - Vital Signs/Intake and Output Vital Signs (last 24 hours): Temp Pulse Resp BP Pulse Ox 98.7 F 81 18 120/60 97 09/24/16 20:00 09/24/16 20:00 09/24/16 20:00 09/24/16 20:00 09/24/16 20:00 Intake and Output: 09/24/16 09/25/16 18:59 06:59 Intake Total 800 650 Output Total 1700 Balance -900 650 - Medications Medications: Current Medications Amlodipine Besylate (Norvasc) 10 mg PO DAILY [facility] Last Admin: 09/24/16 11:53 Dose: 10 mg Aspirin (Aspirin) 325 mg PO DAILY [facility] Last Admin: 09/24/16 09:12 Dose: 325 mg Duloxetine HCl (Cymbalta) 30 mg PO DAILY [facility] Last Admin: 09/24/16 09:13 Dose: 30 mg Ferrous Sulfate (Feosol) 325 mg PO DAILY [facility] Last Admin: 09/24/16 11:52 Dose: 325 mg Fluticasone Propionate (Flonase) 2 spr [facility]MA DAILY [facility] Last Admin: 09/24/16 09:13 Dose: 2 spr Glipizide (Glucotrol Xl) 2.5 mg PO DAILY [facility] Last Admin: 09/24/16 09:13 Dose: 2.5 mg Heparin Sodium (Porcine) (Heparin) 5,000 units SC Q12 [facility] Last Admin: 09/24/16 21:15 Dose: 5,000 units Sodium Chloride (Sodium Chloride 0.9%) 1,000 mls @ 50 mls/hr IV .Q20H [facility] Last Admin: 09/24/16 09:02 Dose: 50 mls/hr Insulin Aspart (Novolog) 0 unit SC ACHS [facility] PRN Reason: Protocol Last Admin: 09/24/16 22:05 Dose: Not Given Insulin Detemir (Levemir) 45 unit SC DAILY [facility] Last Admin: 09/24/16 09:17 Dose: 45 unit Metoprolol Tartrate (Lopressor) 100 mg PO BID [facility] Last Admin: 09/24/16 17:43 Dose: Not Given Mirtazapine (Remeron) 30 mg PO HS [facility] Last Admin: 09/24/16 21:15 Dose: 30 mg Multivitamins (Hexavitamin) 1 tab PO DAILY [facility] Last Admin: 09/24/16 11:52 Dose: 1 tab Nicotine (Nicoderm Cq) 1 patch TD DAILY [facility] Last Admin: 09/24/16 09:15 Dose: Not Given Nitroglycerin (Nitro-Bid 2% Oint) 1 ea TOP Q8 PRN PRN Reason: Systolic Blood Pressure Oxycodone/Acetaminophen (Percocet 5/325 Mg Tab) 2 tab PO Q4H PRN PRN Reason: Pain, severe (8-10) Stop: 09/25/16 11:11 Last Admin: 09/24/16 11:59 Dose: 2 tab Pantoprazole Sodium (Protonix Ec Tab) 40 mg PO DAILY [facility] Last Admin: 09/24/16 09:13 Dose: 40 mg Rosuvastatin Calcium (Crestor) 10 mg PO HS [facility] Last Admin: 09/24/16 21:14 Dose: 10 mg Tamsulosin HCl (Flomax) 0.4 mg PO DAILY [facility] Last Admin: 09/24/16 09:13 Dose: 0.4 mg - Labs Labs: 09/24/16 06:23 09/24/16 06:21 PT 12.9 SECONDS (9.7-12.2) H 09/23/16 06:22 INR 1.2 09/23/16 06:22 APTT 28 SECONDS (21-34) 09/23/16 06:22
[2016-09-25] MEDS: Sodium Chloride 0.9% 1,000 ML IV SCH (05:30)
[2016-09-25] MEDS: (Novolog) Insulin Aspart, Recombinant 100 u/ml 10 ml vial SC SCH ×3 (08:27→16:38)
[2016-09-25] MEDS: LIPASE/PROTEASE/AMYLASE 4,200 U ECC PO SCH ×3 (08:28→16:47)
--- NOTE | 2016-09-25 09:31 | CP.PCM.PN ---
Subjective - Date & Time of Evaluation Date of Evaluation: 09/25/16 Time of Evaluation: 08:00 - Subjective Subjective: General Surgery Note Patient was seen and examined at bedside. Patient was resting comfortably in bed eating breakfast. Patient is in no acute distress and had no new complaints. Patient is able to move his right leg and toe and has been working with physical therapy. Patient denies any leg numbness or tingling. Objective - Vital Signs/Intake and Output Vital Signs (last 24 hours): Temp Pulse Resp BP Pulse Ox 98.6 F 77 17 124/77 99 09/25/16 04:00 09/25/16 04:00 09/25/16 04:00 09/25/16 04:00 09/25/16 04:00 Intake and Output: 09/25/16 09/25/16 06:59 18:59 Intake Total 900 Output Total 350 Balance 550 - Medications Medications: Current Medications Amlodipine Besylate (Norvasc) 10 mg PO DAILY [facility] Last Admin: 09/24/16 11:53 Dose: 10 mg Aspirin (Aspirin) 325 mg PO DAILY [facility] Last Admin: 09/24/16 09:12 Dose: 325 mg Duloxetine HCl (Cymbalta) 30 mg PO DAILY [facility] Last Admin: 09/24/16 09:13 Dose: 30 mg Ferrous Sulfate (Feosol) 325 mg PO DAILY [facility] Last Admin: 09/24/16 11:52 Dose: 325 mg Fluticasone Propionate (Flonase) 2 spr [facility] DAILY [facility] Last Admin: 09/24/16 09:13 Dose: 2 spr Glipizide (Glucotrol Xl) 2.5 mg PO DAILY [facility] Last Admin: 09/24/16 09:13 Dose: 2.5 mg Heparin Sodium (Porcine) (Heparin) 5,000 units SC Q12 [facility] Last Admin: 09/24/16 21:15 Dose: 5,000 units Sodium Chloride (Sodium Chloride 0.9%) 1,000 mls @ 50 mls/hr IV .Q20H [facility] Last Admin: 09/25/16 05:30 Dose: 50 mls/hr Insulin Aspart (Novolog) 0 unit SC ACHS [facility] PRN Reason: Protocol Last Admin: 09/25/16 08:27 Dose: 4 unit Insulin Detemir (Levemir) 45 unit SC DAILY [facility] Last Admin: 09/24/16 09:17 Dose: 45 unit Metoprolol Tartrate (Lopressor) 100 mg PO BID [facility] Last Admin: 09/24/16 17:43 Dose: Not Given Mirtazapine (Remeron) 30 mg PO [facility] Last Admin: 09/24/16 21:15 Dose: 30 mg Multivitamins (Hexavitamin) 1 tab PO DAILY [facility] Last Admin: 09/24/16 11:52 Dose: 1 tab Nicotine (Nicoderm Cq) 1 patch TD DAILY [facility] Last Admin: 09/24/16 09:15 Dose: Not Given Nitroglycerin (Nitro-Bid 2% Oint) 1 ea TOP Q8 PRN PRN Reason: Systolic Blood Pressure Oxycodone/Acetaminophen (Percocet 5/325 Mg Tab) 2 tab PO Q4H PRN PRN Reason: Pain, severe (8-10) Stop: 09/25/16 11:11 Last Admin: 09/24/16 11:59 Dose: 2 tab Pantoprazole Sodium (Protonix Ec Tab) 40 mg PO DAILY [facility] Last Admin: 09/24/16 09:13 Dose: 40 mg Rosuvastatin Calcium (Crestor) 10 mg PO [facility] Last Admin: 09/24/16 21:14 Dose: 10 mg Tamsulosin HCl (Flomax) 0.4 mg PO DAILY [facility] Last Admin: 09/24/16 09:13 Dose: 0.4 mg - Labs Labs: 09/24/16 06:23 09/24/16 06:21 PT 12.9 SECONDS (9.7-12.2) H 09/23/16 06:22 INR 1.2 09/23/16 06:22 APTT 28 SECONDS (21-34) 09/23/16 06:22 - Constitutional Appears: Well, No Acute Distress - Head Exam Head Exam: ATRAUMATIC - Eye Exam Eye Exam: EOMI, Normal appearance - ENT Exam ENT Exam: Mucous Membranes Moist - Respiratory Exam Respiratory Exam: Clear to Ausculation Bilateral, NORMAL BREATHING PATTERN - Cardiovascular Exam Cardiovascular Exam: REGULAR RHYTHM, +S1, +S2 - Extremities Exam Additional comments: Good ROM Doppler Exam: Bilateral dorsalis pedis and Posterior tibialis pulses present No significant leg/pedal edema - Neurological Exam Neurological Exam: Alert, Awake, Oriented x3 - Psychiatric Exam Psychiatric exam: Normal Affect, Normal Mood - Skin Skin Exam: Dry, Normal Color, Warm Assessment and Plan (1) Femoral artery thrombosis, right Assessment & Plan: 70yo M with right femoral artery stenosis s/p catheterization now s/p right femoral endarterectomy w/ bovine patch closure POD#3 -Stable -Continue PT/OT -Clear for DC to rehab from surgical standpoint, awaiting GUS placement -Encouraged ambulation Discussed plan with Dr. Lorenzo Status: Acute
[2016-09-25] MEDS: Multiple Vitamins Tab PO SCH (10:23)
[2016-09-25] MEDS: Pantoprazole 40 mg EC Tab PO SCH (10:23)
[2016-09-25] MEDS: GlipiZIDE 2.5 mg SR Tab PO SCH (10:23)
[2016-09-25] MEDS: Fluticasone Nasal 50 mcg/Spray NAS SCH (10:25)
[2016-09-25] MEDS: Insulin Detemir 100 units/ml Vial (Levemir) SC SCH (10:26)
[2016-09-25 11:20] LABS: BASO # 0.1 K/uL (0.0-0.2); BASO % 0.8 % (0.0-2.0); EOS # 0.2 K/uL (0.0-0.7); EOS % 3.6 % (0.0-4.0); HEMOGLOBIN 8.8 g/dL (12.0-18.0); LYMPH # 0.6 K/uL (1.0-4.3); LYMPH % 8.5 % (20.0-40.0); MEAN CELL VOLUME 87.7 fL (80.0-94.0); MEAN CORPUSCULAR HEMOGLOBIN 29.2 pg (27.0-31.0); MEAN CORPUSCULAR HGB CONC 33.2 g/dL (33.0-37.0); MEAN PLATELET VOLUME 7.7 fL (7.2-11.7); MONO # 0.5 K/uL (0.0-0.8); NEUT # 5.6 K/uL (1.8-7.0); NEUT % 80.1 % (50.0-75.0); PLATELET COUNT 161 K/uL (130-400); RBC 3.02 Mil/uL (4.40-5.90); RED CELL DISTRIBUTION WIDTH 16.7 % (11.5-14.5)
[2016-09-25 11:23] VITALS: BP 122/53; TEMP 98.3; O2SAT 98
[2016-09-25 11:36] LABS: ALBUMIN 2.4 g/dL (3.5-5.0)
[2016-09-25 11:39] LABS: GFR AFRICAN-AMERICAN > 60; GFR NON-AFRICAN AMERICAN 55
[2016-09-25 11:40] LABS: ALB/GLOB RATIO 0.8 (1.0-2.1); ALT/SGPT 28 U/L (21-72); AST/SGOT 20 U/L (17-59); BLOOD UREA NITROGEN 19 mg/dL (9-20); CALCIUM 7.9 mg/dl (8.6-10.4)
[2016-09-25 11:41] LABS: MAGNESIUM 1.7 mg/dL (1.6-2.3)
[2016-09-25 11:42] LABS: LYMPHOCYTE 6 % (20-40); MONOCYTE 6 % (0-10); NEUTROPHIL 84 % (50-75); TOTAL CELLS COUNTED 100
[2016-09-25 11:43] LABS: ANISOCYTOSIS SLIGHT; BURR CELLS SLIGHT; EOSINOPHIL 4 % (0-4); HYPOCHROMIC SLIGHT; PLATELET ESTIMATE NORMAL (NORMAL); POIKILOCYTOSIS SLIGHT; TARGET CELLS SLIGHT
[2016-09-25 11:44] LABS: OVALOCYTES SLIGHT; TEARDROP CELLS SLIGHT
[2016-09-25 13:57] VITALS: PULSE 72; RESP 21
--- NOTE | 2016-09-25 15:39 | CP.PCM.PN ---
Subjective - Date & Time of Evaluation Date of Evaluation: 09/25/16 Time of Evaluation: 13:40 - Subjective Subjective: clinically same Objective - Vital Signs/Intake and Output Vital Signs (last 24 hours): Temp Pulse Resp BP Pulse Ox 98.3 F 72 21 122/53 L 98 09/25/16 08:00 09/25/16 12:00 09/25/16 12:00 09/25/16 08:00 09/25/16 08:00 Intake and Output: 09/25/16 09/25/16 06:59 18:59 Intake Total 900 Output Total 350 Balance 550 - Medications Medications: Current Medications Amlodipine Besylate (Norvasc) 10 mg PO DAILY [facility] Last Admin: 09/25/16 10:23 Dose: 10 mg Aspirin (Aspirin) 325 mg PO DAILY [facility] Last Admin: 09/25/16 10:24 Dose: 325 mg Duloxetine HCl (Cymbalta) 30 mg PO DAILY [facility] Last Admin: 09/25/16 10:24 Dose: 30 mg Ferrous Sulfate (Feosol) 325 mg PO DAILY [facility] Last Admin: 09/25/16 10:23 Dose: 325 mg Fluticasone Propionate (Flonase) 2 spr [facility]MA DAILY [facility] Last Admin: 09/25/16 10:25 Dose: 2 spr Glipizide (Glucotrol Xl) 2.5 mg PO DAILY [facility] Last Admin: 09/25/16 10:23 Dose: 2.5 mg Heparin Sodium (Porcine) (Heparin) 5,000 units SC Q12 [facility] Last Admin: 09/25/16 10:28 Dose: 5,000 units Insulin Aspart (Novolog) 0 unit SC [facility] PRN Reason: Protocol Last Admin: 09/25/16 12:09 Dose: 4 unit Insulin Detemir (Levemir) 45 unit SC DAILY [facility] Last Admin: 09/25/16 10:26 Dose: 45 unit Metoprolol Tartrate (Lopressor) 100 mg PO BID [facility] Last Admin: 09/25/16 10:24 Dose: 100 mg Mirtazapine (Remeron) 30 mg PO HS [facility] Last Admin: 09/24/16 21:15 Dose: 30 mg Multivitamins (Hexavitamin) 1 tab PO DAILY [facility] Last Admin: 09/25/16 10:23 Dose: 1 tab Nicotine (Nicoderm Cq) 1 patch TD DAILY [facility] Last Admin: 09/25/16 10:40 Dose: Not Given Nitroglycerin (Nitro-Bid 2% Oint) 1 ea TOP Q8 PRN PRN Reason: Systolic Blood Pressure Pantoprazole Sodium (Protonix Ec Tab) 40 mg PO DAILY [facility] Last Admin: 09/25/16 10:23 Dose: 40 mg Rosuvastatin Calcium (Crestor) 10 mg PO HS [facility] Last Admin: 09/24/16 21:14 Dose: 10 mg Tamsulosin HCl (Flomax) 0.4 mg PO DAILY [facility] Last Admin: 09/25/16 10:23 Dose: 0.4 mg - Labs Labs: 09/25/16 11:12 09/25/16 11:12 PT 12.9 SECONDS (9.7-12.2) H 09/23/16 06:22 INR 1.2 09/23/16 06:22 APTT 28 SECONDS (21-34) 09/23/16 06:22 - Constitutional Appears: Well - Head Exam Head Exam: ATRAUMATIC, NORMAL INSPECTION, NORMOCEPHALIC - Eye Exam Eye Exam: EOMI, Normal appearance, PERRL Pupil Exam: NORMAL ACCOMODATION, PERRL - ENT Exam ENT Exam: Mucous Membranes Moist, Normal Exam - Neck Exam Neck Exam: Full ROM, Normal Inspection. absent: Lymphadenopathy - Respiratory Exam Respiratory Exam: Decreased Breath Sounds - Cardiovascular Exam Cardiovascular Exam: REGULAR RHYTHM, +S1, +S2 - GI/Abdominal Exam GI & Abdominal Exam: Soft, Diminished Bowel Sounds - Rectal Exam Rectal Exam: Deferred Assessment and Plan (1) Claudication Status: Acute (2) Femoral artery thrombosis, right Status: Acute (3) Abdominal pain Status: Acute (4) Carotid stenosis Status: Acute (5) Diabetes mellitus, insulin dependent (IDDM), uncontrolled Status: Acute (6) Distal radius fracture, right Status: Acute (7) Hyperglycemia Status: Acute (8) Hypoglycemia Status: Acute (9) Pancreatitis Status: Acute (10) Syncope Status: Acute
[2016-09-25] MEDS ORDERED: Oxycodone/Acetaminophen 5/325 mg Tab PO STA (16:43)
--- NOTE | 2016-09-29 08:46 | CARD ---
APPROVED REPORT EKG Measurement Heart [id number] ID [id number] <Conclusion> Normal sinus rhythm Possible Left atrial enlargement Left anterior fascicular block Inferior infarct, age undetermined Anteroseptal infarct, age undetermined Abnormal ECG
== END 2016-09-25 19:41 | DRG 253 ==
LOC: C.ER 09:56 → C.9E 10:41 → C.3T 15:07 → C.9I 09-22 12:48
PROVIDERS: ADMIT Internal Medicine Nephrology; ATTEND Internal Medicine Nephrology
PROC: 04UK0JZ Supplement Right Femoral Artery with Synthetic Substitute, Open Approach (ICD-10-PCS; 2016-09-22)
PROC: 04CK0ZZ Extirpation of Matter from Right Femoral Artery, Open Approach (ICD-10-PCS; principal; 2016-09-22 07:45)
DX: I74.3 Embolism and thrombosis of arteries of the lower extremities (principal); K86.0 Alcohol-induced chronic pancreatitis; E10.51 Type 1 diabetes mellitus with diabetic peripheral angiopathy without gangrene; E10.649 Type 1 diabetes mellitus with hypoglycemia without coma; E10.65 Type 1 diabetes mellitus with hyperglycemia; I65.29 Occlusion and stenosis of unspecified carotid artery; F32.9 Major depressive disorder, single episode, unspecified; I10 Essential (primary) hypertension; I70.211 Atherosclerosis of native arteries of extremities with intermittent claudication, right leg; R42 Dizziness and giddiness; F17.210 Nicotine dependence, cigarettes, uncomplicated; F14.90 Cocaine use, unspecified, uncomplicated; F12.90 Cannabis use, unspecified, uncomplicated; R55 Syncope and collapse; I70.201 Unspecified atherosclerosis of native arteries of extremities, right leg; Z79.4 Long term (current) use of insulin

== ENCOUNTER 2016-10-18 01:15 | Inpatient (IN) | payer MEDICARE ==
[2016-10-18 01:17] VITALS: BMI 22.8
--- NOTE | 2016-10-18 01:35 | C.PDOC ---
History Of Present Illness Patient presents to the ER with a complaint of right groin pain. Patient reports he had a clot removed from his femoral artery 4 weeks ago and states he has been fine until recently when he noticed pain and swelling to the right groin area. Denies fever, chills, nausea, vomiting, purulent material, or redness. Time Seen by Provider: 10/18/16 01:34 Chief Complaint (Nursing): Lower Extremity Problem/Injury History Per: Patient History/Exam Limitations: no limitations Onset/Duration Of Symptoms: Days Current Symptoms Are (Timing): Still Present Recent travel outside of the [place]: No Past Medical History Reviewed: Historical Data, Nursing Documentation, Vital Signs Vital Signs: Last Vital Signs Temp 98.4 F 10/18/16 05:34 Pulse 86 10/18/16 05:34 Resp 17 10/18/16 05:34 BP 133/71 10/18/16 05:34 Pulse Ox 97 10/18/16 05:34 - Medical History PMH: Depression, HTN, Pancreatitis Surgical History: Carotid Endarterectomy - [facility] Procedures EXCISION OF TOE NAIL, EXTERNAL APPROACH (09/25/16) EXERCISE TRMT MUSCULOSK LOW BACK/LE W ASSIST EQUIP (09/25/16) EXTIRPATION OF MATTER FROM L EXT CAROTID, OPEN APPROACH (08/30/16) EXTIRPATION OF MATTER FROM L INT CAROTID, OPEN APPROACH (08/30/16) EXTIRPATION OF MATTER FROM R FEM ART, OPEN APPROACH (09/20/16) GAIT TRAINING/AMBULAT TREATMENT USING ASSIST EQUIPMENT (09/25/16) HOME MANAGEMENT TREATMENT USING ASSIST EQUIPMENT (09/25/16) INSERT OF MONITOR DEV INTO CHEST SUBCU/FASCIA, PERC APPROACH (05/02/16) REPAIR FACE SKIN, EXTERNAL APPROACH (05/02/16) SUPPLEMENT L INT CAROTID WITH SYNTH SUB, OPEN APPROACH (08/30/16) SUPPLEMENT R FEM ART WITH SYNTH SUB, OPEN APPROACH (09/20/16) Family History: States: No Known Family Hx - Social History Hx Tobacco Use: Yes Hx Alcohol Use: Yes Hx Substance Use: Yes - Immunization History Hx Tetanus Toxoid Vaccination: Yes (unsure) Hx Influenza Vaccination: No (unsure) Hx Pneumococcal Vaccination: Yes (unsure) Review Of Systems Constitutional: Negative for: Fever, Chills Gastrointestinal: Negative for: Nausea, Vomiting Genitourinary: Positive for: Other (Groin pain). Negative for: Dysuria, Hematuria, Penile Pain Physical Exam - Physical Exam Appears: Non-toxic Skin: Warm, Dry Oral Mucosa: Moist Chest: Symmetrical, No Tenderness Cardiovascular: Rhythm Regular, No Murmur Respiratory: No Rales, No Rhonchi, No Wheezing Gastrointestinal/Abdominal: Soft, No Tenderness Male Genital: Other ([place] and stitches to right groin, wound clean and dry. 2x3cm area of induration and tenderness) Pulses: Left Dorsalis Pedis: Normal, Right Dorsalis Pedis: Normal Neurological/Psych: Oriented x3 ED Course And Treatment - Laboratory Results Result Diagrams: 10/18/16 02:06 10/18/16 02:06 ECG: Interpreted By Me, Viewed By Me ECG Rhythm: Sinus Rhythm (100), Nonspecific Changes O2 Sat by Pulse Oximetry: 99 (Room air) Pulse Ox Interpretation: Normal Progress Note: EKG and blood work ordered. Morphine, zofran, and IV fluids administered. ED OBSERVATION Date of observation admission: 10/18/16 Time of observation admission: 04:09 - Observation admission statement Patient is being placed in observation because:: r groin pain - Goals of Observation Goals of observation are:: pending vasc US - Progress Note Progress Note: 10/18/16 04:09 vitals stable Disposition Counseled Patient/Family Regarding: Studies Performed, Diagnosis - Disposition Disposition Time: 01:34 Condition: FAIR - Clinical Impression Clinical Impression: Right groin pain - Scribe Statement The provider has reviewed the documentation as recorded by the Scribe Raymond Ledesma All medical record entries made by the Scribe were at my direction and personally dictated by me. I have reviewed the chart and agree that the record accurately reflects my personal performance of the history, physical exam, medical decision making, and the department course for this patient. I have also personally directed, reviewed, and agree with the discharge instructions and disposition. Physician Patient Turnover Patient Signed Over To: García Palma Handoff Comments: pending Groin us and disposition
[2016-10-18] MEDS ORDERED: Morphine 4 MG/ML VIAL IV ONE (01:47)
[2016-10-18] MEDS ORDERED: Sodium Chloride 0.9% 1,000 ML ONE (01:53)
[2016-10-18] MEDS: Sodium Chloride 0.9% 1,000 ML IV SCH ×2 (02:05→16:08)
[2016-10-18 02:10] LABS: BASO # 0.1 K/uL (0.0-0.2); BASO % 0.7 % (0.0-2.0); EOS # 0.1 K/uL (0.0-0.7); EOS % 1.1 % (0.0-4.0); HEMATOCRIT 33.9 % (35.0-51.0); LYMPH # 0.5 K/uL (1.0-4.3); LYMPH % 4.2 % (20.0-40.0); MEAN CELL VOLUME 87.3 fL (80.0-94.0); MEAN CORPUSCULAR HEMOGLOBIN 28.5 pg (27.0-31.0); MEAN CORPUSCULAR HGB CONC 32.7 g/dL (33.0-37.0); MEAN PLATELET VOLUME 7.7 fL (7.2-11.7); MONO # 0.7 K/uL (0.0-0.8); MONO % 5.9 % (0.0-10.0); PLATELET COUNT 171 K/uL (130-400); RED CELL DISTRIBUTION WIDTH 18.4 % (11.5-14.5); WHITE BLOOD COUNT 11.8 K/uL (4.8-10.8)
[2016-10-18 02:18] LABS: INR 1.1
[2016-10-18 02:19] LABS: POTASSIUM 5.1 mmol/L (3.6-5.2)
[2016-10-18 02:20] LABS: BILIRUBIN,TOTAL 0.6 mg/dL (0.2-1.3)
[2016-10-18 02:21] LABS: ALB/GLOB RATIO 0.9 (1.0-2.1); CALCIUM 8.4 mg/dl (8.6-10.4)
[2016-10-18] MEDS ORDERED: Morphine 4 MG/ML VIAL ONE ×2 (03:30→07:41)
[2016-10-18 03:32] LABS: NEUTROPHIL 89 % (50-75); TOTAL CELLS COUNTED 100
[2016-10-18] MEDS ORDERED: Iodixanol 320 MG/ML 100 ML BOTTLE IV ONE ×2 (09:13→09:19)
--- NOTE | 2016-10-18 09:39 | CP.PCM.CON ---
History of Present Illness - History of Present Illness History of Present Illness: Vascular Surgery Consult Note for Dr. Lorenzo [address] [facility] PMH of PAD, HTN, Carotid Stenosis, Pancreatic Mass resection, and Right Femoral Endarterecthomy presents to ED with complaint or R groin pain/ swelling. Patient had R femoral endarterectomy done by Dr. Lorenzo on 09/22 and was sent here to [facility] for physical therapy. Patient was discharged home from there on 10/13. Since developing clot in femoral artery patient has had pain and numbness/tingling in RLE. Yesterday, patient notice that swelling dramatically increased along with the pain. He states that a bulge had formed. He rates pain as 9/10. He describes it as an intermittent throbbing pain. Walking, palpation exacerbates the pain. Patient denies any other complaint. Neurovascularly intact without any motor sensory deficit. PMH: HTN, depression, PAD, CAD, Carotid stenosis, DM, BPH Med: As per [facility] Allergies: NKDA PSH: Carotid endarectomy, Cardiac cath, femoral emblectomy, Pancreatic Mass resection FH: HTN, DM Social: extensive smoking history, denies etoh/illicit drug use Review of Systems - Review of Systems All systems: reviewed and no additional remarkable complaints except (pain, edema, numbness/tingling) Past Patient History - Infectious Disease Hx of Infectious Diseases: None - Past Medical History & Family History Past Medical History?: Yes - Past Social History Smoking Status: Heavy Smoker > 10 Cigarettes Daily - CARDIAC Hx Hypertension: Yes - PULMONARY Hx Respiratory Disorders: No - NEUROLOGICAL Hx Syncope: Yes Hx Vertigo: Yes - HEENT Other/Comment: glasses for reading - RENAL Hx Chronic Kidney Disease: No - ENDOCRINE/METABOLIC Hx Endocrine Disorders: Yes Hx Diabetes Mellitus Type 2: Yes - HEMATOLOGICAL/ONCOLOGICAL Hx Blood Disorders: No Hx Blood Transfusions: Yes Hx Blood Transfusion Reaction: No - INTEGUMENTARY Hx Dermatological Problems: No - MUSCULOSKELETAL/RHEUMATOLOGICAL Hx Falls: Yes - GASTROINTESTINAL Hx Pancreatitis: Yes - GENITOURINARY/GYNECOLOGICAL Hx Genitourinary Disorders: Yes Hx Prostate Problems: Yes - PSYCHIATRIC Hx Depression: Yes Hx Substance Use: Yes - SURGICAL HISTORY Hx Carotid Endarterectomy: Yes - ANESTHESIA Hx Anesthesia: Yes Hx Anesthesia Reactions: No Hx Malignant Hyperthermia: No Meds Allergies/Adverse Reactions: Allergies Allergy/AdvReac Type Severity Reaction Status Date / Time No Known Allergies Allergy Verified 10/18/16 01:31 - Medications Medications: Current Medications Sodium Chloride (Sodium Chloride 0.9%) 1,000 mls @ 100 mls/hr IV .Q10H [facility] Last Admin: 10/18/16 02:05 Dose: 100 mls/hr Physical Exam - Constitutional Appears: No Acute Distress - Head Exam Head Exam: ATRAUMATIC, NORMOCEPHALIC - Eye Exam Eye Exam: Normal appearance - ENT Exam ENT Exam: Mucous Membranes Moist - Respiratory Exam Respiratory Exam: NORMAL BREATHING PATTERN - Cardiovascular Exam Cardiovascular Exam: REGULAR RHYTHM - GI/Abdominal Exam GI & Abdominal Exam: Soft. absent: Distended, Tenderness - Extremities Exam Extremities exam: Positive for: normal capillary refill, tenderness (present since developing clot, imnproving), pedal pulses present. Negative for: pedal edema Additional comments: Neurovascularly intact without any motor sensory deficit. palpable femoral, popliteal, DP and PT in RLE Thobbing bulge at incision site in R groin Incision is clean dry and intact with saida and sutures in place - Back Exam Back exam: absent: CVA tenderness (L), CVA tenderness (R) - Neurological Exam Neurological exam: Alert, CN II-XII Intact, Oriented x3 - Psychiatric Exam Psychiatric exam: Normal Affect, Normal Mood - Skin Skin Exam: Dry, Intact, Normal Color, Warm Results - Vital Signs Recent Vital Signs: Last Vital Signs Temp 98.1 F 10/18/16 06:46 Pulse 87 10/18/16 09:20 Resp 15 10/18/16 09:20 BP 110/72 10/18/16 09:20 Pulse Ox 99 10/18/16 09:20 - Labs Result Diagrams: 10/18/16 02:06 10/18/16 02:06 Assessment & Plan - Assessment and Plan (Free Text) Plan: 70 M [facility] of PAD, HTN, Carotid Stenosis, Pancreatic Mass resection, and Right Femoral Endarterecthomy presents to ED with complaint or R groin pain/ selling, possible pseudoaneurysm -CT abd angio: 3.5 x 2.9 x 5.1 cm pseudoaneurysm is seen superficial to the right common femoral artery with the majority thrombosis. The patent lumen remains up to 2.5 cm greatest dimension at this time. 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 No dissection of the right common or superficial femoral artery is identified (see full report) - Vascular lab for intervention today -NPO -Kenney Nuñez PGY1
[2016-10-18] MEDS ORDERED: Dextrose 50% SYRINGE Inj (50 ml) IV STA (10:43)
--- NOTE | 2016-10-18 10:43 | CT ---
PROCEDURE: CT Angiography Abdomen, Pelvis and Lower Extremity with Contrast HISTORY: pseudoaneurysm right groin COMPARISON: Prior CT angiogram of the abdomen pelvis and bilateral lower extremities 09/21/2016 TECHNIQUE: Technique: CT angiography of the abdomen, pelvis and bilateral lower extremities performed in the arterial phase of enhancement. Coronal and sagittal reformats, and well as rotating MIP images of the vessels generated at the workstation. Intravenous contrast dose: Visipaque 320, 100 cc. Radiation dose: Total exam DLP = 1194 mGy-cm. This CT exam was performed using one or more of the following dose reduction techniques: Automated exposure control, adjustment of the mA and/or kV according to patient size, and/or use of iterative reconstruction technique. FINDINGS: CT ANGIOGRAPHY: ABDOMINAL AORTA:: The abdominal aorta is widely patent through its bifurcation with limited calcified atherosclerotic changes associated. MAJOR AORTIC BRANCHES: Celiac [place]: Unremarkable. Superior mesenteric artery: Unremarkable. Inferior mesenteric artery: Unremarkable. Renal arteries: Unremarkable. PELVIC ARTERIES: Right Common Iliac: Unremarkable. Right External Iliac: Unremarkable. Right Internal Iliac: Unremarkable. Left Common Iliac: Unremarkable. Left External Iliac: Unremarkable. Left Internal Iliac: Unremarkable. RIGHT LOWER EXTREMITY ARTERIES: Right Common Femoral: A pseudoaneurysms identified related to the right common femoral artery measuring 3.7 x 2.9 x 5.1 cm (transverse by anteroposterior by superoinferior dimensions). The majority of this pseudoaneurysm appears thrombosed with the patent residual measuring 1.6 x 1.7 by 2.5 cm. A distal right common femoral artery aneurysm measures 1.4 x 1.5 x 2.5 cm without dissection related. Prior emphysematous soft tissue changes are resolved. Right Superficial Femoral: Stable, with moderate atherosclerosis and mild distal stenosis. Right Profunda Femoris: Unremarkable. Right Popliteal:Unremarkable. Right Anterior Tibial: Proximal occlusion again noted with limited distal reconstitution noted at the ankle. Right Tibioperoneal Trunk: Unremarkable. Right Posterior Tibial: Unremarkable. Right Peroneal: Unremarkable. Right dorsalis pedis : Unremarkable. LEFT LOWER EXTREMITY ARTERIES: Left Common Femoral: Atherosclerotic but without significant stenosis. Left Superficial Femoral: Multifocal segmental plaques throughout, without significant stenosis. Left Profunda Femoris: Unremarkable. Left Popliteal: Atherosclerosis without significant stenosis. Left Anterior Tibial: Proximal occlusion again evident with limited distal reconstitution at the ankle. Left Tibioperoneal Trunk: Moderate proximal stenosis. Patent through its bifurcation. Left Posterior Tibial: Multiple segmental after atherosclerotic plaques identified diffusely with a moderate mid segmental stenosis identified. Left Peroneal: Unremarkable. Left Dorsalis pedis: Unremarkable. NON-ANGIOGRAPHIC ASPECT OF THE EXAM: LOWER THORAX: Unremarkable. LIVER: Unremarkable. No gross lesion or ductal dilatation. GALLBLADDER AND BILE DUCTS: Cholelithiasis is again evident within a distended gallbladder. PANCREAS: Prominent pancreatic duct dilatation up to 8 mm again evident. Pancreatic neck mass again noted measuring approximately 3.6 cm, difficult to fully characterize during arterial phase of contrast enhancement. SPLEEN: Unremarkable. ADRENALS: Unremarkable. No mass. KIDNEYS AND URETERS: Small right renal cyst again evident. STOMACH AND BOWEL: Unremarkable. No obstruction. No gross mural thickening. Stomach is distended with retained fluid without gross mural thickening. APPENDIX: Normal appendix. PERITONEUM: Unremarkable. No free fluid. No free air. LYMPH NODES: Unremarkable. No enlarged lymph nodes. BLADDER: Unremarkable. REPRODUCTIVE: Prostate gland enlargement again evident BONES: No acute fracture. OTHER FINDINGS: None. IMPRESSION: 1. 3.5 x 2.9 x 5.1 cm pseudoaneurysm is seen superficial to the right common femoral artery with the majority thrombosis. The patent lumen remains up to 2.5 cm greatest dimension at this time. 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 No dissection of the right common or superficial femoral artery is identified. 2. See additional arterial detail above. 3. Pancreatic mass again evident with dilatation of the pancreatic duct.
[2016-10-18] MEDS ORDERED: Dextrose 50% SYRINGE Inj (50 ml) ONE (10:51)
[2016-10-18] MEDS ORDERED: ceFAZolin IV 1 gm in Dextrose 1 GM/50 ML BAG IVPB ONE (11:42)
[2016-10-18] MEDS ORDERED: HEPARIN-NS 5,000 UNITS/500 ML 5,000 UNIT/500 ML BAG IV ONE (11:42)
[2016-10-18] MEDS ORDERED: Iodixanol 320 MG/ML 200 ML BOTTLE IV ONE (11:43)
[2016-10-18] MEDS ORDERED: Protamine 50mg/5mL Inj IV ONE (11:44)
[2016-10-18] MEDS ORDERED: Lidocaine 1% Inj (20ml) ONE (11:44)
[2016-10-18] MEDS ORDERED: Bupivacaine HCl 0.25% PF (10 ml) Inj ONE (11:44)
[2016-10-18] MEDS ORDERED: Propofol 10 mg/ml Inj (20 ML) ONE (12:10)
[2016-10-18] MEDS ORDERED: Midazolam 2 MG/2 ML VIAL ONE ×2 (12:10)
[2016-10-18] MEDS ORDERED: Sodium Chloride 0.9% 1,000 ML IV ONE (12:15)
[2016-10-18] MEDS ORDERED: Iohexol 240 200 ML IJ ONE (13:01)
[2016-10-18] MEDS ORDERED: Dextrose 50% VIAL Inj (50 ml) IV ONE (14:26)
[2016-10-18] MEDS ORDERED: Lactated Ringer's 1,000 ML IV ONE (14:30)
[2016-10-18] MEDS ORDERED: Lactated Ringer's 1,000 ML IV SCH (14:30)
--- NOTE | 2016-10-18 14:39 | PCM.SURG1 ---
Surgeon's Initial Post Op Note - Surgeon's Notes Surgeon: christi Blow Machine Tender Starch Spraying: nicholas Type of Anesthesia: IV Sedation Anesthesia Administered By: archana Pre-Operative Diagnosis: ruptured right common femoral artery pseudoaneurysm Operative Findings: emergency percutaneous endovascular repair of ruptured common femoral artery pseudoaneurysm VBX stent [id number]. aortofemoral angiogram Post-Operative Diagnosis: same Operation Performed: same Specimen/Specimens Removed: 0 Estimated Blood Loss: EBL {In ML}: 50 Blood Products Given: N/A Drains Used: No Drains Post-Op Condition: Good Date of Surgery/Procedure: 10/18/16 Time of Surgery/Procedure: 14:40
[2016-10-18] MEDS ORDERED: Potassium Ch 20mEq in D5-1/2NS 1,000 ML IV SCH (14:45)
--- NOTE | 2016-10-18 15:27 | RAD ---
PROCEDURE: INTRAOPERATIVE ANGIOGRAPHY 10/18/2016 HISTORY: ANEURYSM RT. GROIN COMPARISON: TECHNIQUE: Intraoperative fluoroscopy was provided for position to perform right femoral angiography in this patient with history of right common femoral pseudoaneurysm and right common femoral [place] aneurysm. FINDINGS: Four spot fluoroscopic images of been submitted detail Ling a left inguinal arterial puncture site with a pigtail catheter terminating at the left common iliac artery or distal abdominal aorta in multiple views. There is a spot image demonstrating the catheter advancing over to the right iliac arterial system with the final image demonstrating balloon angioplasty with stent placement of the regional right common femoral and proximal superficial femoral arteries. Please see operative report further detail. 443.5 fluoroscopy seconds yielding 99.51 mGy total radiation dose. IMPRESSION: As discussed above.
[2016-10-18] MEDS: Dextrose 5%/0.45% NS 1,000 ML IV SCH (16:19)
[2016-10-18] MEDS: Vancomycin 1 gm/NS 200 ml 1 GM/200 ML BAG IVPB SCH (16:20)
[2016-10-18] MEDS ORDERED: (Novolog) Insulin Aspart, Recombinant 100 u/ml 10 ml vial SC SCH (16:30)
[2016-10-18] MEDS: GlipiZIDE 2.5 mg SR Tab PO SCH (16:46)
--- NOTE | 2016-10-18 17:24 | CP.PCM.CON ---
History of Present Illness - History of Present Illness History of Present Illness: Chief complaint: Pain and swelling right groin History present illness: 70-year-old male with history of PAD, hypertension, carotid stenosis, pancreatic lesion recently underwent a right femoral endarterectomy, patient was recovering from the surgery, but suddenly he developed a swelling, pain, tingling in the right lower extremity, along with increasing swelling over the right groin with the significant pain. Unable to walk because of the worsening pain, and he came into the emergency room. In the emergency room patient was evaluated, seen by vascular surgery, found to have pseudoaneurysm, with the bleeding needed emergency management. Patient underwent a surgical intervention, stent was placed and covered, patient transferred to ICU for further management. Past medical history: Hypertension. Is coronary artery disease diabetes and BPH Allergies no known drug allergy Surgical history noted from the chart Family history hypertension diabetes Patient has a significant smoking history no alcohol On examination: Patient is currently comfortable lying down. Not in any distress. Vital signs stable. Chest good air entry bilaterally regular heart sound nontender abdomen extremities no pedal edema. Right leg palpable pulses noted Labs reviewed Elevated WBC noted Episode of hypoglycemia noted Assessment and recommendation: 70-year-old male with history of hypertension. He carotid stenosis panic medication now admitted with the right femoral artery pseudoaneurysm rupture. Status post a stent placement. Currently doing well. Will closely monitor the patient. Vascular monitoring of the leg. Possible sepsis. WBC elevated. Place him antibiotic. Will follow the patient Past Patient History - Infectious Disease Hx of Infectious Diseases: None - Past Medical History & Family History Past Medical History?: Yes - Past Social History Smoking Status: Heavy Smoker > 10 Cigarettes Daily - CARDIAC Hx Heart Murmur: Yes Hx Hypertension: Yes - PULMONARY Hx Respiratory Disorders: No - NEUROLOGICAL Hx Syncope: Yes Hx Vertigo: Yes - HEENT Other/Comment: glasses for reading - RENAL Hx Chronic Kidney Disease: No - ENDOCRINE/METABOLIC Hx Endocrine Disorders: Yes Hx Diabetes Mellitus Type 2: Yes - HEMATOLOGICAL/ONCOLOGICAL Hx Blood Disorders: No Hx Anemia: Yes Hx Blood Transfusions: Yes Hx Blood Transfusion Reaction: No - INTEGUMENTARY Hx Dermatological Problems: No - MUSCULOSKELETAL/RHEUMATOLOGICAL Hx Falls: Yes - GASTROINTESTINAL Hx Pancreatitis: Yes - GENITOURINARY/GYNECOLOGICAL Hx Genitourinary Disorders: Yes Hx Prostate Problems: Yes (BPH) - PSYCHIATRIC Hx Depression: Yes Hx Substance Use: Yes - SURGICAL HISTORY Hx Carotid Endarterectomy: Yes (L CEA) - ANESTHESIA Hx Anesthesia: Yes Hx Anesthesia Reactions: No Hx Malignant Hyperthermia: No Meds Allergies/Adverse Reactions: Allergies Allergy/AdvReac Type Severity Reaction Status Date / Time No Known Allergies Allergy Verified 10/18/16 01:31 - Medications Medications: Current Medications Amlodipine Besylate (Norvasc) 10 mg PO DAILY [facility] Aspirin (Ecotrin) 81 mg PO DAILY [facility] Docusate Sodium (Colace) 100 mg PO BID [facility] Duloxetine HCl (Cymbalta) 40 mg PO HS [facility] Ferrous Sulfate (Feosol) 325 mg PO BID [facility] Finasteride (Proscar) 5 mg PO DAILY [facility] Fluticasone Propionate (Flonase) 2 spr EMMA DAILY [facility] Glipizide (Glucotrol Xl) 2.5 mg PO ACBD [facility] Last Admin: 10/18/16 16:46 Dose: Not Given Vancomycin/Sodium Chloride (Vancocin) 1 gm in 200 mls @ 133 mls/hr IVPB Q12H [facility] Stop: 10/23/16 15:31 Last Admin: 10/18/16 16:20 Dose: 133 mls/hr Dextrose/Sodium Chloride (Dextrose 5%/0.45% Ns 1000 Ml) 1,000 mls @ 75 mls/hr IV .[id number] [facility] Last Admin: 10/18/16 16:19 Dose: 75 mls/hr Insulin Detemir (Levemir) 36 unit SC HS [facility] Ketoconazole (Nizoral) 0 gm TOP DAILY [facility] Metoprolol Tartrate (Lopressor) 25 mg PO BID@0900,2100 [facility] Mirtazapine (Remeron) 30 mg PO HS [facility] Oxycodone/Acetaminophen (Percocet 5/325 Mg Tab) 1 tab PO Q4H PRN PRN Reason: Pain, moderate (4-7) Stop: 10/21/16 14:23 Pantoprazole Sodium (Protonix Ec Tab) 40 mg PO DAILY [facility] Rosuvastatin Calcium (Crestor) 10 mg PO HS [facility] Tamsulosin HCl (Flomax) 0.4 mg PO DAILY [facility] Results - Vital Signs Recent Vital Signs: Last Vital Signs Temp 96.2 F L 10/18/16 15:55 Pulse 79 10/18/16 17:00 Resp 13 10/18/16 17:00 BP 130/68 10/18/16 16:42 Pulse Ox 95 10/18/16 17:00 - Labs Result Diagrams: 10/18/16 02:06 10/18/16 02:06 Labs: Laboratory Results - last 24 hr 10/18/16 10/18/16 10/18/16 11:08 14:23 15:25 POC Glucose (mg/dL) 106 45 L 136 H 10/18/16 16:09 POC Glucose (mg/dL) 91
[2016-10-18] MEDS: Oxycodone/Acetaminophen 5/325 mg Tab PO PRN ×2 (18:17→23:45)
[2016-10-18] MEDS: LIPASE/PROTEASE/AMYLASE 4,200 U ECC PO SCH (18:19)
--- NOTE | 2016-10-18 20:30 | CP.PCM.CON ---
History of Present Illness - History of Present Illness History of Present Illness: Cardiology Consultation 70 M ncht PMH of PAD, HTN, Carotid Stenosis, Pancreatic Mass resection, and Right Femoral Endarterecthomy presents to ED with complaint or R groin pain/ swelling. Patient had R femoral endarterectomy done by Dr. Lorenzo on 09/22 and was sent here to [facility] for physical therapy. Patient was discharged home from there on 10/13. Since developing clot in femoral artery patient has had pain and numbness/tingling in RLE. Yesterday, patient notice that swelling dramatically increased along with the pain. He states that a bulge had formed. He rates pain as 9/10. He describes it as an intermittent throbbing pain. Walking, palpation exacerbates the pain. Patient denies any other complaint. Neurovascularly intact without any motor sensory deficit. PMH: HTN, depression, PAD, CAD, Carotid stenosis, DM, BPH Med: As per [facility] Allergies: NKDA PSH: Carotid endarectomy, Cardiac cath, femoral emblectomy, Pancreatic Mass resection FH: HTN, DM Social: extensive smoking history, denies etoh/illicit drug use Review of Systems - Review of Systems All systems: reviewed and no additional remarkable complaints except (pain, edema, numbness/tingling) Meds Allergies/Adverse Reactions: Allergies Allergy/AdvReac Type Severity Reaction Status Date / Time No Known Allergies Allergy Verified 10/18/16 01:31 - Medications Medications: Current Medications Sodium Chloride (Sodium Chloride 0.9%) 1,000 mls @ 100 mls/hr IV .Q10H [facility] Last Admin: 10/18/16 02:05 Dose: 100 mls/hr Physical Exam - Constitutional Appears: No Acute Distress - Head Exam Head Exam: ATRAUMATIC, NORMOCEPHALIC - Eye Exam Eye Exam: Normal appearance - ENT Exam ENT Exam: Mucous Membranes Moist - Respiratory Exam Respiratory Exam: NORMAL BREATHING PATTERN - Cardiovascular Exam Cardiovascular Exam: REGULAR RHYTHM - GI/Abdominal Exam GI & Abdominal Exam: Soft. absent: Distended, Tenderness - Extremities Exam Extremities exam: Positive for: normal capillary refill, tenderness (present since developing clot, imnproving), pedal pulses present. Negative for: pedal edema Additional comments: Neurovascularly intact without any motor sensory deficit. palpable femoral, popliteal, DP and PT in RLE Thobbing bulge at incision site in R groin Incision is clean dry and intact with saida and sutures in place - Back Exam Back exam: absent: CVA tenderness (L), CVA tenderness (R) - Neurological Exam Neurological exam: Alert, CN II-XII Intact, Oriented x3 - Psychiatric Exam Psychiatric exam: Normal Affect, Normal Mood - Skin Skin Exam: Dry, Intact, Normal Color, Warm Past Patient History - Infectious Disease Hx of Infectious Diseases: None - Past Medical History & Family History Past Medical History?: Yes - Past Social History Smoking Status: Heavy Smoker > 10 Cigarettes Daily - CARDIAC Hx Heart Murmur: Yes Hx Hypertension: Yes - PULMONARY Hx Respiratory Disorders: No - NEUROLOGICAL Hx Syncope: Yes Hx Vertigo: Yes - HEENT Other/Comment: glasses for reading - RENAL Hx Chronic Kidney Disease: No - ENDOCRINE/METABOLIC Hx Endocrine Disorders: Yes Hx Diabetes Mellitus Type 2: Yes - HEMATOLOGICAL/ONCOLOGICAL Hx Blood Disorders: No Hx Anemia: Yes Hx Blood Transfusions: Yes Hx Blood Transfusion Reaction: No - INTEGUMENTARY Hx Dermatological Problems: No - MUSCULOSKELETAL/RHEUMATOLOGICAL Hx Falls: Yes - GASTROINTESTINAL Hx Pancreatitis: Yes - GENITOURINARY/GYNECOLOGICAL Hx Genitourinary Disorders: Yes Hx Prostate Problems: Yes (BPH) - PSYCHIATRIC Hx Depression: Yes Hx Substance Use: Yes - SURGICAL HISTORY Hx Carotid Endarterectomy: Yes (L CEA) - ANESTHESIA Hx Anesthesia: Yes Hx Anesthesia Reactions: No Hx Malignant Hyperthermia: No Meds Allergies/Adverse Reactions: Allergies Allergy/AdvReac Type Severity Reaction Status Date / Time No Known Allergies Allergy Verified 10/18/16 01:31 - Medications Medications: Current Medications Amlodipine Besylate (Norvasc) 10 mg PO DAILY [facility] Aspirin (Ecotrin) 81 mg PO DAILY [facility] Clopidogrel Bisulfate (Plavix) 75 mg PO DAILY [facility] Docusate Sodium (Colace) 100 mg PO BID [facility] Last Admin: 10/18/16 18:17 Dose: 100 mg Duloxetine HCl (Cymbalta) 40 mg PO HS [facility] Ferrous Sulfate (Feosol) 325 mg PO BID [facility] Last Admin: 10/18/16 18:17 Dose: 325 mg Finasteride (Proscar) 5 mg PO DAILY [facility] Fluticasone Propionate (Flonase) 2 spr [facility]MA DAILY [facility] Glipizide (Glucotrol Xl) 2.5 mg PO ACBD [facility] Last Admin: 10/18/16 16:46 Dose: Not Given Heparin Sodium (Porcine) (Heparin) 5,000 units SC Q8 [facility] Vancomycin/Sodium Chloride (Vancocin) 1 gm in 200 mls @ 133 mls/hr IVPB Q12H [facility] Stop: 10/23/16 15:31 Last Admin: 10/18/16 16:20 Dose: 133 mls/hr Dextrose/Sodium Chloride (Dextrose 5%/0.45% Ns 1000 Ml) 1,000 mls @ 75 mls/hr IV .[id number] [facility] Last Admin: 10/18/16 16:19 Dose: 75 mls/hr Insulin Detemir (Levemir) 36 unit SC HS [facility] Ketoconazole (Nizoral) 0 gm TOP DAILY [facility] Metoprolol Tartrate (Lopressor) 25 mg PO BID@0900,2100 [facility] Mirtazapine (Remeron) 30 mg PO HS [facility] Oxycodone/Acetaminophen (Percocet 5/325 Mg Tab) 1 tab PO Q4H PRN PRN Reason: Pain, moderate (4-7) Stop: 10/21/16 14:23 Last Admin: 10/18/16 18:17 Dose: 1 tab Pantoprazole Sodium (Protonix Ec Tab) 40 mg PO DAILY [facility] Rosuvastatin Calcium (Crestor) 10 mg PO HS [facility] Tamsulosin HCl (Flomax) 0.4 mg PO DAILY [facility] Results - Vital Signs Recent Vital Signs: Last Vital Signs Temp 96.2 F L 10/18/16 15:55 Pulse 82 10/18/16 19:00 Resp 16 10/18/16 19:00 BP 131/85 10/18/16 18:42 Pulse Ox 100 10/18/16 19:00 - Labs Result Diagrams: 10/18/16 02:06 10/18/16 02:06 Labs: Laboratory Results - last 24 hr 10/18/16 10/18/16 10/18/16 11:08 14:23 15:25 POC Glucose (mg/dL) 106 45 L 136 H 10/18/16 16:09 POC Glucose (mg/dL) 91 Assessment & Plan - Assessment and Plan (Free Text) Assessment: 1. 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 Carotid artery disease s/p CEA 3. Non obstructive CAD 4. Hyperlipidemia 5. Heavy tobacco use Add Plavix 75 daily for 1 year along with ASA 81 daily Continue statins, Metoprolol DVT/GI prophylaxis
--- NOTE | 2016-10-19 01:42 | OP ---
PROCEDURE DATE: 10/18/2016 PREOPERATIVE DIAGNOSIS: Ruptured common femoral artery pseudoaneurysm. POSTOPERATIVE DIAGNOSIS: Ruptured common femoral artery pseudoaneurysm. PROCEDURES CARRIED OUT: Endovascular repair of ruptured common femoral artery pseudoaneurysm, percutaneous, with VBX 7 x 59 stent; aortofemoral angiogram and selective catheterization of right femoral artery. SURGEON: Noé Lorenzo Jr., MD SPINNING FRAME TENDER: . ANESTHESIOLOGIST: Fidencio Wiley MD TYPE OF ANESTHESIA: Local sedation. INDICATIONS: A 70-year-old man with a history of recent carotid endarterectomy, cardiac cath from the groin, subsequent thrombosis, subsequent repair and endarterectomy with patch angioplasty. The patient now presents with sudden onset of pain in the groin, swelling. Preoperative imaging demonstrated active flow to pseudoaneurysm originating from the common femoral artery on the right side. OPERATIVE FINDINGS: The aorta, renal arteries were free of significant occlusive disease. Both common iliac arteries were widely patent. Both internal iliac arteries had some evidence of occlusive disease. Both external iliac arteries were widely patent. On the left side, the common femoral artery was patent with a poorly-developed profunda. On the right side, the profunda femoris was patent. There was evidence of multiple outpouchings of the pseudoaneurysm in the right groin. Subsequent to the performance of diagnostic arteriogram, a stiff-angled guidewire was advanced over the aortic bifurcation and a 7-[place] sheath positioned in the distal external iliac artery. Using road-mapping techniques and a variety of devices to measure the size with diameter, we deployed a 7 x 59 mm VBX stent. No 8-mm sheath was available for delivery of a Viabahn stent. The patient had been heparinized. After this had been done, we checked another completion arteriogram which showed persistence of flow into the aneurysm sac. We then over inflated the VBX stent in its proximal portion with 9 mm balloon. Subsequent pictures showed no evidence of any endoleak with an excellent perfusion into the leg. The profunda femoris artery was occluded and this was planned. The patient then had a palpable pulse in the foot. We then deployed peripheral stimulation in the left groin and terminated the procedure. Noé Lorenzo Jr., MD MTDYefri
[2016-10-19 06:33] LABS: HEMATOCRIT 27.7 % (35.0-51.0); MEAN CORPUSCULAR HEMOGLOBIN 28.9 pg (27.0-31.0); MEAN CORPUSCULAR HGB CONC 32.5 g/dL (33.0-37.0); MEAN PLATELET VOLUME 8.4 fL (7.2-11.7); RED CELL DISTRIBUTION WIDTH 18.5 % (11.5-14.5); WHITE BLOOD COUNT 7.1 K/uL (4.8-10.8)
[2016-10-19] MEDS: Vancomycin 1 gm/NS 200 ml 1 GM/200 ML BAG IVPB SCH ×2 (06:33→15:54)
[2016-10-19 06:48] LABS: POTASSIUM 5.3 mmol/L (3.6-5.2)
[2016-10-19 06:50] LABS: ALB/GLOB RATIO 0.8 (1.0-2.1); BILIRUBIN,TOTAL 0.4 mg/dL (0.2-1.3); TOTAL PROTEIN 5.8 g/dL (6.3-8.3)
[2016-10-19 06:51] LABS: PHOSPHOROUS 4.2 mg/dL (2.5-4.5)
[2016-10-19 07:13] LABS: CALCIUM 7.8 mg/dl (8.6-10.4); MAGNESIUM 1.9 mg/dL (1.6-2.3)
[2016-10-19] MEDS ORDERED: (Novolog) Insulin Aspart, Recombinant 100 u/ml 10 ml vial SC SCH (07:30)
[2016-10-19] MEDS: Oxycodone/Acetaminophen 5/325 mg Tab PO PRN ×2 (08:38→13:18)
[2016-10-19] MEDS: LIPASE/PROTEASE/AMYLASE 4,200 U ECC PO SCH ×3 (08:40→17:05)
[2016-10-19] MEDS: GlipiZIDE 2.5 mg SR Tab PO SCH ×2 (08:40→17:05)
[2016-10-19] MEDS: Dextrose 5%/0.45% NS 1,000 ML IV SCH (08:42)
[2016-10-19] MEDS: Cefepime IV 1 gm in Dextrose 1 GM/50 ML BAG IVPB SCH ×2 (09:15→21:48)
[2016-10-19] MEDS: Fluticasone Nasal 50 mcg/Spray NAS SCH (09:58)
--- NOTE | 2016-10-19 10:09 | CP.PCM.PN ---
Subjective - Date & Time of Evaluation Date of Evaluation: 10/19/16 Time of Evaluation: 10:06 - Subjective Subjective: SURGERY NOTE FOR DR. DENIS 70M seen and examined at bedside. Patient is doing well, eating breakfast. Denies pain, has no complaints. Objective - Vital Signs/Intake and Output Vital Signs (last 24 hours): Temp Pulse Resp BP Pulse Ox 98.7 F 66 19 139/62 98 10/19/16 04:00 10/19/16 06:00 10/19/16 06:00 10/19/16 09:57 10/19/16 06:00 Intake and Output: 10/19/16 10/19/16 06:59 18:59 Intake Total 1260 Output Total 1400 Balance -140 - Medications Medications: Current Medications Amlodipine Besylate (Norvasc) 10 mg PO DAILY [facility] Last Admin: 10/19/16 09:58 Dose: 10 mg Aspirin (Ecotrin) 81 mg PO DAILY [facility] Last Admin: 10/19/16 09:57 Dose: 81 mg Clopidogrel Bisulfate (Plavix) 75 mg PO DAILY [facility] Last Admin: 10/19/16 09:57 Dose: 75 mg Docusate Sodium (Colace) 100 mg PO BID [facility] Last Admin: 10/19/16 09:57 Dose: 100 mg Duloxetine HCl (Cymbalta) 40 mg PO HS [facility] Last Admin: 10/18/16 22:58 Dose: 40 mg Famotidine (Pepcid) 20 mg PO BID [facility] Last Admin: 10/19/16 09:57 Dose: 20 mg Ferrous Sulfate (Feosol) 325 mg PO BID [facility] Last Admin: 10/19/16 09:57 Dose: 325 mg Finasteride (Proscar) 5 mg PO DAILY [facility] Last Admin: 10/19/16 09:57 Dose: 5 mg Fluticasone Propionate (Flonase) 2 spr [facility]MA DAILY [facility] Last Admin: 10/19/16 09:58 Dose: Not Given Glipizide (Glucotrol Xl) 2.5 mg PO ACBD [facility] Last Admin: 10/19/16 08:40 Dose: 2.5 mg Heparin Sodium (Porcine) (Heparin) 5,000 units SC Q8 [facility] Last Admin: 10/19/16 06:14 Dose: 5,000 units Vancomycin/Sodium Chloride (Vancocin) 1 gm in 200 mls @ 133 mls/hr IVPB Q12H [facility] Stop: 10/23/16 15:31 Last Admin: 10/19/16 06:33 Dose: 133 mls/hr Dextrose/Sodium Chloride (Dextrose 5%/0.45% Ns 1000 Ml) 1,000 mls @ 75 mls/hr IV .[id number] [facility] Last Admin: 10/19/16 08:42 Dose: Not Given Cefepime HCl (Maxipime Iv 1 Gm Premix) 1 gm in 50 mls @ 100 mls/hr IVPB Q12H [facility] Last Admin: 10/19/16 09:15 Dose: 100 mls/hr Insulin Detemir (Levemir) 36 unit SC [facility] Ketoconazole (Nizoral) 0 gm TOP DAILY [facility] Last Admin: 10/19/16 09:58 Dose: 1 applic Metoprolol Tartrate (Lopressor) 25 mg PO BID@0900,2100 [facility] Last Admin: 10/19/16 09:57 Dose: 25 mg Mirtazapine (Remeron) 30 mg PO [facility] Last Admin: 10/18/16 22:59 Dose: 30 mg Oxycodone/Acetaminophen (Percocet 5/325 Mg Tab) 1 tab PO Q4H PRN PRN Reason: Pain, moderate (4-7) Stop: 10/21/16 14:23 Last Admin: 10/19/16 08:38 Dose: 1 tab Rosuvastatin Calcium (Crestor) 10 mg PO [facility] Last Admin: 10/18/16 22:59 Dose: 10 mg Tamsulosin HCl (Flomax) 0.4 mg PO DAILY [facility] Last Admin: 10/19/16 09:57 Dose: 0.4 mg - Labs Labs: 10/19/16 06:24 10/19/16 06:19 PT 12.0 SECONDS (9.7-12.2) 10/18/16 02:06 INR 1.1 10/18/16 02:06 APTT 30 SECONDS (21-34) 10/18/16 02:06 - Constitutional Appears: Non-toxic, No Acute Distress - Respiratory Exam Respiratory Exam: Clear to Ausculation Bilateral, NORMAL BREATHING PATTERN - Cardiovascular Exam Cardiovascular Exam: REGULAR RHYTHM, +S1, +S2 - Extremities Exam Additional comments: right femoral incision site CDI. positive doppler signals bilaterally Lower extremity - Neurological Exam Neurological Exam: Alert, Awake - Skin Skin Exam: Dry, Intact, Normal Color, Warm Assessment and Plan - Assessment and Plan (Free Text) Assessment: 70M s/p repair of rupture Right femoral pseudo-aneurysm, with stent placement POD 1 Plan: - lower extremity vascular checks - incision site check Further recs discuss with Dr. Raza Severino, PGY2
--- NOTE | 2016-10-19 15:21 | CP.PCM.PN ---
Subjective - Date & Time of Evaluation Date of Evaluation: 10/19/16 Time of Evaluation: 15:19 - Subjective Subjective: clinically stable PT pulses present HCt 27 will plan dc in am if condition stable absolute need to stop smoking dw patient Objective - Vital Signs/Intake and Output Vital Signs (last 24 hours): Temp Pulse Resp BP Pulse Ox 98.1 F 66 13 118/55 L 98 10/19/16 12:00 10/19/16 14:00 10/19/16 14:00 10/19/16 12:42 10/19/16 12:00 Intake and Output: 10/19/16 10/19/16 06:59 18:59 Intake Total 1260 1070 Output Total 1400 550 Balance -140 520 - Medications Medications: Current Medications Amlodipine Besylate (Norvasc) 10 mg PO DAILY [facility] Last Admin: 10/19/16 09:58 Dose: 10 mg Aspirin (Ecotrin) 81 mg PO DAILY [facility] Last Admin: 10/19/16 09:57 Dose: 81 mg Clopidogrel Bisulfate (Plavix) 75 mg PO DAILY [facility] Last Admin: 10/19/16 09:57 Dose: 75 mg Docusate Sodium (Colace) 100 mg PO BID [facility] Last Admin: 10/19/16 09:57 Dose: 100 mg Duloxetine HCl (Cymbalta) 40 mg PO HS [facility] Last Admin: 10/18/16 22:58 Dose: 40 mg Famotidine (Pepcid) 20 mg PO BID [facility] Last Admin: 10/19/16 09:57 Dose: 20 mg Ferrous Sulfate (Feosol) 325 mg PO BID [facility] Last Admin: 10/19/16 09:57 Dose: 325 mg Finasteride (Proscar) 5 mg PO DAILY [facility] Last Admin: 10/19/16 09:57 Dose: 5 mg Fluticasone Propionate (Flonase) 2 spr EMMA DAILY [facility] Last Admin: 10/19/16 09:58 Dose: Not Given Glipizide (Glucotrol Xl) 2.5 mg PO ACBD [facility] Last Admin: 10/19/16 08:40 Dose: 2.5 mg Heparin Sodium (Porcine) (Heparin) 5,000 units SC Q8 [facility] Last Admin: 10/19/16 14:19 Dose: 5,000 units Vancomycin/Sodium Chloride (Vancocin) 1 gm in 200 mls @ 133 mls/hr IVPB Q12H [facility] Stop: 10/23/16 15:31 Last Admin: 10/19/16 06:33 Dose: 133 mls/hr Cefepime HCl (Maxipime Iv 1 Gm Premix) 1 gm in 50 mls @ 100 mls/hr IVPB Q12H [facility] Last Admin: 10/19/16 09:15 Dose: 100 mls/hr Insulin Detemir (Levemir) 36 unit SC [facility] Ketoconazole (Nizoral) 0 gm TOP DAILY [facility] Last Admin: 10/19/16 09:58 Dose: 1 applic Metoprolol Tartrate (Lopressor) 25 mg PO BID@0900,2100 [facility] Last Admin: 10/19/16 09:57 Dose: 25 mg Mirtazapine (Remeron) 30 mg PO [facility] Last Admin: 10/18/16 22:59 Dose: 30 mg Oxycodone/Acetaminophen (Percocet 5/325 Mg Tab) 1 tab PO Q4H PRN PRN Reason: Pain, moderate (4-7) Stop: 10/21/16 14:23 Last Admin: 10/19/16 13:18 Dose: 1 tab Rosuvastatin Calcium (Crestor) 10 mg PO [facility] Last Admin: 10/18/16 22:59 Dose: 10 mg Tamsulosin HCl (Flomax) 0.4 mg PO DAILY [facility] Last Admin: 10/19/16 09:57 Dose: 0.4 mg - Labs Labs: 10/19/16 06:24 10/19/16 06:19 PT 12.0 SECONDS (9.7-12.2) 10/18/16 02:06 INR 1.1 10/18/16 02:06 APTT 30 SECONDS (21-34) 10/18/16 02:06
--- NOTE | 2016-10-19 17:50 | CP.CCUPN ---
CCU Subjective - Physician Review Events Since Last Encounter (Free Text): 10/19/16 17:50 Patient is a 70-year-old male with history of peripheral was clear disease, admitted now with the right groin hematoma, pseudoaneurysm rupture. Status post a stent placement. Currently patient had an episode of sepsis. Gram-negative bacteremia noted, today patient is comfortable. Not in any distress. Blood sugar is elevated Labs reviewed Chest good air entry bilaterally regular heart sound nontender abdomen Culture again showing evidence of gram-negative bacteremia. Added cefepime. Continue the current antibiotic. Glucose control. Diagnosis: Gram-negative sepsis and bacteremia. Right groin hematoma, pseudoaneurysm rupture. Status post stable at this time. We'll continue the current treatment stent placement. CCU Objective - Vital Signs / Intake & Output Vital Signs (Last 4 hours): Vital Signs Pulse Resp 10/19/16 14:00 66 13 Intake and Output (Last 8hrs): Intake & Output 10/19/16 10/19/16 10/19/16 06:59 14:59 22:59 Intake Total 600 1070 Output Total 1300 550 Balance -700 520 Weight 149 lb 8 oz Intake: Intake, IV Amount 600 500 Left Antecubital 600 500 Oral 0 570 Output: Urine 1300 550 Urine, Voided 1300 550 Other: # Voids Urine, Voided 1 0 # Bowel Movements 0 0 - Medications Active Medications: Active Medications Generic Name Dose Route Start Last Admin Trade Name Freq PRN Reason Stop Dose Admin Amlodipine Besylate 10 mg 10/19/16 10:00 10/19/16 09:58 Norvasc PO 10 mg DAILY [facility] Administration Aspirin 81 mg 10/19/16 10:00 10/19/16 09:57 Ecotrin PO 81 mg DAILY [facility] Administration Clopidogrel Bisulfate 75 mg 10/19/16 10:00 10/19/16 09:57 Plavix PO 75 mg DAILY [facility] Administration Docusate Sodium 100 mg 10/18/16 18:00 10/19/16 09:57 Colace PO 100 mg BID [facility] Administration Duloxetine HCl 40 mg 10/18/16 22:00 10/18/16 22:58 Cymbalta PO 40 mg HS [facility] Administration Famotidine 20 mg 10/19/16 10:00 10/19/16 09:57 Pepcid PO 20 mg BID [facility] Administration Ferrous Sulfate 325 mg 10/18/16 18:00 10/19/16 09:57 Feosol PO 325 mg BID [facility] Administration Finasteride 5 mg 10/19/16 10:00 10/19/16 09:57 Proscar PO 5 mg DAILY [facility] Administration Fluticasone Propionate 2 spr 10/19/16 10:00 10/19/16 09:58 Flonase EMMA Not Given DAILY [facility] Glipizide 2.5 mg 10/18/16 16:30 10/19/16 17:05 Glucotrol Xl PO 2.5 mg ACBD [facility] Administration Heparin Sodium (Porcine) 5,000 units 10/18/16 22:00 10/19/16 14:19 Heparin SC 5,000 units Q8 [facility] Administration Vancomycin/Sodium Chloride 1 gm in 200 mls @ 133 mls/hr 10/18/16 15:30 15:54 Vancocin IVPB 10/23/16 15:31 133 mls/hr Q12H [facility] Administration Cefepime HCl 1 gm in 50 mls @ 100 mls/hr 10/19/16 08:45 10/19/16 09:15 Maxipime Iv 1 Gm Premix IVPB 100 mls/hr Q12H [facility] Administration Insulin Detemir 36 unit 10/19/16 22:00 Levemir SC HS [facility] Ketoconazole 0 gm 10/19/16 10:00 10/19/16 09:58 Nizoral TOP 1 applic DAILY [facility] Administration Metoprolol Tartrate 25 mg 10/18/16 21:00 10/19/16 09:57 Lopressor PO 25 mg BID@0900,2100 [facility] Administration Mirtazapine 30 mg 10/18/16 22:00 10/18/16 22:59 Remeron PO 30 mg HS [facility] Administration Oxycodone/Acetaminophen 1 tab 10/18/16 14:22 10/19/16 13:18 Percocet 5/325 Mg Tab PO 10/21/16 14:23 1 tab Q4H PRN Administration Pain, moderate (4-7) Rosuvastatin Calcium 10 mg 10/18/16 22:00 10/18/16 22:59 Crestor PO 10 mg HS [facility] Administration Tamsulosin HCl 0.4 mg 10/19/16 10:00 10/19/16 09:57 Flomax PO 0.4 mg DAILY [facility] Administration - Patient Studies Lab Studies: Microbiology Studies 10/18/16 15:00 Blood Culture - Preliminary Blood-Venous Gram Negative Julian Gram Stain - Final Lab Studies 10/19/16 10/19/16 10/19/16 Range/Units 16:48 11:59 07:22 WBC (4.8-10.8) K/uL RBC (4.40-5.90) Mil/uL Hgb (12.0-18.0) g/dL Hct (35.0-51.0) % MCV (80.0-94.0) fL MCH (27.0-31.0) pg MCHC (33.0-37.0) g/dL RDW (11.5-14.5) % Plt Count (130-400) K/uL MPV (7.2-11.7) fL Sodium (132-148) mmol/L Potassium (3.6-5.2) mmol/L Chloride (98-107) mmol/L Carbon Dioxide (22-30) mmol/L Anion Gap (10-20) BUN (9-20) mg/dL Creatinine (0.8-1.5) MG/DL Est GFR ( Amer) Est GFR (Non-Af Amer) POC Glucose (mg/dL) 362 H 356 H 206 H (65-110) mg/dL Random Glucose (75-110) mg/dL Calcium (8.6-10.4) mg/dl Phosphorus (2.5-4.5) mg/dL Magnesium (1.6-2.3) mg/dL Total Bilirubin (0.2-1.3) mg/dL AST (17-59) U/L ALT (21-72) U/L Alkaline Phosphatase (38-126) U/L Total Protein (6.3-8.3) g/dL Albumin (3.5-5.0) g/dL Globulin (2.2-3.9) gm/dL Albumin/Globulin Ratio (1.0-2.1) 10/19/16 10/19/16 10/18/16 Range/Units 06:24 06:19 21:10 WBC 7.1 (4.8-10.8) K/uL RBC 3.12 L (4.40-5.90) Mil/uL Hgb 9.0 L D (12.0-18.0) g/dL Hct 27.7 L (35.0-51.0) % MCV 89.0 (80.0-94.0) fL MCH 28.9 (27.0-31.0) pg MCHC 32.5 L (33.0-37.0) g/dL RDW 18.5 H (11.5-14.5) % Plt Count 119 L D (130-400) K/uL MPV 8.4 (7.2-11.7) fL Sodium 138 (132-148) mmol/L Potassium 5.3 H (3.6-5.2) mmol/L Chloride 106 (98-107) mmol/L Carbon Dioxide 20 L (22-30) mmol/L Anion Gap 17 (10-20) BUN 25 H (9-20) mg/dL Creatinine 1.5 (0.8-1.5) MG/DL Est GFR ( Amer) 56 Est GFR (Non-Af Amer) 47 POC Glucose (mg/dL) 196 H (65-110) mg/dL Random Glucose 208 H (75-110) mg/dL Calcium 7.8 L (8.6-10.4) mg/dl Phosphorus 4.2 (2.5-4.5) mg/dL Magnesium 1.9 (1.6-2.3) mg/dL Total Bilirubin 0.4 (0.2-1.3) mg/dL AST 15 L D (17-59) U/L ALT 24 (21-72) U/L Alkaline Phosphatase 118 (38-126) U/L Total Protein 5.8 L (6.3-8.3) g/dL Albumin 2.5 L D (3.5-5.0) g/dL Globulin 3.3 (2.2-3.9) gm/dL Albumin/Globulin Ratio 0.8 L (1.0-2.1) Laboratory Results - last 24 hr 10/18/16 10/19/16 10/19/16 21:10 06:19 06:24 WBC 7.1 RBC 3.12 L Hgb 9.0 L D Hct 27.7 L MCV 89.0 MCH 28.9 MCHC 32.5 L RDW 18.5 H Plt Count 119 L D MPV 8.4 Sodium 138 Potassium 5.3 H Chloride 106 Carbon Dioxide 20 L Anion Gap 17 BUN 25 H Creatinine 1.5 Est GFR ( Amer) 56 Est GFR (Non-Af Amer) 47 POC Glucose (mg/dL) 196 H Random Glucose 208 H Calcium 7.8 L Phosphorus 4.2 Magnesium 1.9 Total Bilirubin 0.4 AST 15 L D ALT 24 Alkaline Phosphatase 118 Total Protein 5.8 L Albumin 2.5 L D Globulin 3.3 Albumin/Globulin Ratio 0.8 L 10/19/16 10/19/16 10/19/16 07:22 11:59 16:48 WBC RBC Hgb Hct MCV MCH MCHC RDW Plt Count MPV Sodium Potassium Chloride Carbon Dioxide Anion Gap BUN Creatinine Est GFR ( Amer) Est GFR (Non-Af Amer) POC Glucose (mg/dL) 206 H 356 H 362 H Random Glucose Calcium Phosphorus Magnesium Total Bilirubin AST ALT Alkaline Phosphatase Total Protein Albumin Globulin Albumin/Globulin Ratio Fingerstick Blood Sugar Results: 91 Critical Care Progress Note - Nutrition Nutrition: Nutrition Category Date Time Status Consistent Carbohydrate [DIET] Diets 10/18/16 Lunch Active
--- NOTE | 2016-10-19 19:46 | CP.PCM.PN ---
Subjective - Date & Time of Evaluation Date of Evaluation: 10/19/16 Time of Evaluation: 07:05 - Subjective Subjective: Patient seen and evaluated denies pain in the leg, dyspnea or chest pain Objective - Vital Signs/Intake and Output Vital Signs (last 24 hours): Temp Pulse Resp BP Pulse Ox 97.9 F 62 14 147/66 98 10/19/16 16:00 10/19/16 19:00 10/19/16 19:00 10/19/16 18:42 10/19/16 16:00 Intake and Output: 10/19/16 10/20/16 18:59 06:59 Intake Total 1570 0 Output Total 950 Balance 620 0 - Medications Medications: Current Medications Amlodipine Besylate (Norvasc) 10 mg PO DAILY [facility] Last Admin: 10/19/16 09:58 Dose: 10 mg Aspirin (Ecotrin) 81 mg PO DAILY [facility] Last Admin: 10/19/16 09:57 Dose: 81 mg Clopidogrel Bisulfate (Plavix) 75 mg PO DAILY [facility] Last Admin: 10/19/16 09:57 Dose: 75 mg Docusate Sodium (Colace) 100 mg PO BID [facility] Last Admin: 10/19/16 18:07 Dose: 100 mg Duloxetine HCl (Cymbalta) 40 mg PO HS [facility] Last Admin: 10/18/16 22:58 Dose: 40 mg Famotidine (Pepcid) 20 mg PO BID [facility] Last Admin: 10/19/16 18:07 Dose: 20 mg Ferrous Sulfate (Feosol) 325 mg PO BID [facility] Last Admin: 10/19/16 18:07 Dose: 325 mg Finasteride (Proscar) 5 mg PO DAILY [facility] Last Admin: 10/19/16 09:57 Dose: 5 mg Fluticasone Propionate (Flonase) 2 spr EMMA DAILY [facility] Last Admin: 10/19/16 09:58 Dose: Not Given Glipizide (Glucotrol Xl) 2.5 mg PO ACBD [facility] Last Admin: 10/19/16 17:05 Dose: 2.5 mg Heparin Sodium (Porcine) (Heparin) 5,000 units SC Q8 [facility] Last Admin: 10/19/16 14:19 Dose: 5,000 units Vancomycin/Sodium Chloride (Vancocin) 1 gm in 200 mls @ 133 mls/hr IVPB Q12H [facility] Stop: 10/23/16 15:31 Last Admin: 10/19/16 15:54 Dose: 133 mls/hr Cefepime HCl (Maxipime Iv 1 Gm Premix) 1 gm in 50 mls @ 100 mls/hr IVPB Q12H [facility] Last Admin: 10/19/16 09:15 Dose: 100 mls/hr Insulin Detemir (Levemir) 36 unit SC [facility] Insulin Human Regular (Novolin R) 0 unit SC [facility] PRN Reason: Protocol Ketoconazole (Nizoral) 0 gm TOP DAILY [facility] Last Admin: 10/19/16 09:58 Dose: 1 applic Metoprolol Tartrate (Lopressor) 25 mg PO BID@0900,2100 [facility] Last Admin: 10/19/16 09:57 Dose: 25 mg Mirtazapine (Remeron) 30 mg PO [facility] Last Admin: 10/18/16 22:59 Dose: 30 mg Oxycodone/Acetaminophen (Percocet 5/325 Mg Tab) 1 tab PO Q4H PRN PRN Reason: Pain, moderate (4-7) Stop: 10/21/16 14:23 Last Admin: 10/19/16 13:18 Dose: 1 tab Rosuvastatin Calcium (Crestor) 10 mg PO [facility] Last Admin: 10/18/16 22:59 Dose: 10 mg Tamsulosin HCl (Flomax) 0.4 mg PO DAILY [facility] Last Admin: 10/19/16 09:57 Dose: 0.4 mg - Labs Labs: 10/19/16 06:24 10/19/16 06:19 PT 12.0 SECONDS (9.7-12.2) 10/18/16 02:06 INR 1.1 10/18/16 02:06 APTT 30 SECONDS (21-34) 10/18/16 02:06 - Head Exam Head Exam: ATRAUMATIC, NORMAL INSPECTION - Eye Exam Eye Exam: EOMI, PERRL Pupil Exam: NORMAL ACCOMODATION - ENT Exam ENT Exam: Mucous Membranes Moist, Normal Exam - Neck Exam Neck Exam: Full ROM, Normal Inspection - Respiratory Exam Respiratory Exam: Clear to Ausculation Bilateral, NORMAL BREATHING PATTERN - Cardiovascular Exam Cardiovascular Exam: REGULAR RHYTHM, +S1, +S2 - GI/Abdominal Exam GI & Abdominal Exam: Soft, Normal Bowel Sounds - Extremities Exam Extremities Exam: Full ROM - Psychiatric Exam Psychiatric exam: Normal Mood - Skin Skin Exam: Warm Assessment and Plan - Assessment and Plan (Free Text) Assessment: 1. PAD s/p Rt NURSE PLASTICS stent 2. HTN 3. Carotid artery disease s/p CEA 4. Hyperlipidemia 5. COPD Continue all medications Recommend dual antiplatelet therapy for life
[2016-10-19] MEDS: (Novolin R) Insulin Human Regular 100 units/ml vial SC SCH (21:49)
[2016-10-19] MEDS ORDERED: Insulin Detemir 100 units/ml Vial (Levemir) SC SCH (22:00)
[2016-10-20] MEDS: Vancomycin 1 gm/NS 200 ml 1 GM/200 ML BAG IVPB SCH ×2 (03:30→16:30)
[2016-10-20 07:05] LABS: ALB/GLOB RATIO 0.9 (1.0-2.1); ALKALINE PHOSPHATASE 135 U/L (38-126); ALT/SGPT 22 U/L (21-72); AST/SGOT 28 U/L (17-59); BILIRUBIN,TOTAL 0.5 mg/dL (0.2-1.3); BLOOD UREA NITROGEN 24 mg/dL (9-20); CALCIUM 8.4 mg/dl (8.6-10.4); CARBON DIOXIDE 15 mmol/L (22-30); CHLORIDE 109 mmol/L (98-107); GFR AFRICAN-AMERICAN > 60; PHOSPHOROUS 3.7 mg/dL (2.5-4.5); SODIUM 136 mmol/L (132-148); TOTAL PROTEIN 6.4 g/dL (6.3-8.3)
[2016-10-20 07:13] LABS: GLUCOSE,RANDOM 34 mg/dL (75-110)
[2016-10-20 07:15] LABS: POTASSIUM 4.5 mmol/L (3.6-5.2)
[2016-10-20] MEDS ORDERED: Dextrose 50% SYRINGE Inj (50 ml) IV STA ×2 (07:20→07:46)
[2016-10-20] MEDS ORDERED: Dextrose 50% SYRINGE Inj (50 ml) ONE (07:23)
[2016-10-20] MEDS ORDERED: Dextrose 50% SYRINGE Inj (50 ml) IV ONE (07:46)
[2016-10-20] MEDS: Cefepime IV 1 gm in Dextrose 1 GM/50 ML BAG IVPB SCH (09:00)
[2016-10-20] MEDS: (Novolin R) Insulin Human Regular 100 units/ml vial SC SCH ×4 (09:10→23:25)
[2016-10-20] MEDS ORDERED: Dextrose 5%/0.9% NS 1,000 ML IV SCH (09:15)
[2016-10-20] MEDS: Fluticasone Nasal 50 mcg/Spray NAS SCH (10:15)
[2016-10-20] MEDS: LIPASE/PROTEASE/AMYLASE 4,200 U ECC PO SCH ×3 (10:16→17:21)
--- NOTE | 2016-10-20 10:57 | CP.CCUPN ---
<MarioOscar R - Last Filed: 10/20/16 14:00> CCU Subjective - Physician Review Subjective (Free Text): Patient was seen and examined at bedside in the morning. Patient had an episode of non-bloody, non-bilious emesis. Patient complained of 6/10 pain at surgical site in right leg. CCU Objective - Vital Signs / Intake & Output Vital Signs (Last 4 hours): Vital Signs Temp Pulse Resp BP Pulse Ox 10/20/16 09:56 113/74 10/20/16 09:44 83 10 L 116/65 83 L 10/20/16 09:00 79 14 10/20/16 08:41 80 12 113/59 L 10/20/16 08:00 97.4 F L 69 19 113/74 97 10/20/16 07:42 69 19 107/44 L 10/20/16 07:00 75 18 Intake and Output (Last 8hrs): Intake & Output 10/19/16 10/20/16 10/20/16 22:59 06:59 14:59 Intake Total 600 100 240 Output Total 400 800 420 Balance 200 -700 -180 Intake: Intake, IV Amount 200 100 Left Antecubital 200 100 Oral 400 0 240 Output: Urine 400 800 Urine, Voided 400 800 Emesis 420 Other: # Voids Urine, Voided 0 # Bowel Movements 0 - Physical Exam Head: Positive for: Normocephalic Pupils: Positive for: PERRL Extroacular Muscles: Positive for: EOMI Conjunctiva: Positive for: Normal Mouth: Positive for: Moist Mucous Membranes Neck: Positive for: Normal Range of Motion Respiratory/Chest: Positive for: Clear to Auscultation Cardiovascular: Positive for: Regular Rate and Rhythm, Normal S1, S2 Abdomen: Positive for: Normal Bowel Sounds. Negative for: Tenderness Upper Extremity: Positive for: Normal Inspection Lower Extremity: Positive for: NORMAL PULSES, Other (right femoral incision site CDI; Right leg palpable pulses noted) Neurological: Positive for: Speech Normal Skin: Positive for: Warm, Dry, Normal Color Psychiatric: Positive for: Alert, Normal Mood - Medications Active Medications: Active Medications Generic Name Dose Route Start Last Admin Trade Name Freq PRN Reason Stop Dose Admin Aspirin 81 mg 10/19/16 10:00 10/20/16 10:14 Ecotrin PO Not Given DAILY [facility] [place] Clopidogrel Bisulfate 75 mg 10/19/16 10:00 10/20/16 10:17 Plavix PO Not Given DAILY [facility] [place] Docusate Sodium 100 mg 10/18/16 18:00 10/19/16 18:07 Colace PO 100 mg BID [facility] Administration Duloxetine HCl 40 mg 10/18/16 22:00 10/19/16 21:50 Cymbalta PO 40 mg HS [facility]ONNA Administration Famotidine 20 mg 10/19/16 10:00 10/20/16 10:16 Pepcid PO Not Given BID [facility] Ferrous Sulfate 325 mg 10/18/16 18:00 10/20/16 10:14 Feosol PO Not Given BID [facility] [place] Finasteride 5 mg 10/19/16 10:00 10/20/16 10:17 Proscar PO Not Given DAILY [facility] [place] Fluticasone Propionate 2 spr 10/19/16 10:00 10/20/16 10:15 Flonase EMMA Not Given DAILY [facility] [place] Heparin Sodium (Porcine) 5,000 units 10/18/16 22:00 10/20/16 06:20 Heparin SC 5,000 units Q8 [facility] Administration Hydromorphone HCl 0.5 mg 10/20/16 10:40 Dilaudid IVP Q6H PRN Pain, moderate (4-7) Vancomycin/Sodium Chloride 1 gm in 200 mls @ 133 mls/hr 10/18/16 15:30 03:30 Vancocin IVPB 10/23/16 15:31 133 mls/hr Q12H [facility] Administration Cefepime HCl 1 gm in 50 mls @ 100 mls/hr 10/19/16 08:45 10/20/16 09:00 Maxipime Iv 1 Gm Premix IVPB 100 mls/hr Q12H [facility] Administration Dextrose/Sodium Chloride 1,000 mls @ 75 mls/hr 10/20/16 09:15 10/20/16 09:53 Dextrose 5%/0.9% Ns 1000 Ml IV 75 mls/hr .[id number] [facility]NA Administration Insulin Human Regular 0 unit 10/19/16 22:00 10/20/16 09:10 Novolin R SC Not Given ACHS [facility] Protocol Ketoconazole 0 gm 10/19/16 10:00 10/19/16 09:58 Nizoral TOP 1 applic DAILY [facility] Administration Metoprolol Tartrate 25 mg 10/18/16 21:00 10/20/16 09:56 Lopressor PO Not Given BID@0900,2100 [facility] Mirtazapine 30 mg 10/18/16 22:00 10/19/16 21:47 Remeron PO 30 mg HS [facility] Administration Ondansetron HCl 4 mg 10/20/16 09:06 10/20/16 09:50 Zofran Inj IVP 4 mg Q6 PRN Administration Nausea/Vomiting Rosuvastatin Calcium 10 mg 10/18/16 22:00 10/19/16 21:47 Crestor PO 10 mg HS [facility]NA Administration Tamsulosin HCl 0.4 mg 10/19/16 10:00 10/20/16 10:15 Flomax PO Not Given DAILY [facility] - Patient Studies Lab Studies: Microbiology Studies 10/18/16 15:00 Blood Culture - Preliminary Blood-Venous Gram Negative Julian Gram Stain - Final Lab Studies 10/20/16 10/20/16 10/20/16 Range/Units 08:17 07:19 06:25 Sodium 136 (132-148) mmol/L Potassium 4.5 (3.6-5.2) mmol/L Chloride 109 H (98-107) mmol/L Carbon Dioxide 15 L (22-30) mmol/L Anion Gap 17 (10-20) BUN 24 H (9-20) mg/dL Creatinine 1.4 (0.8-1.5) MG/DL Est GFR ( Amer) > 60 Est GFR (Non-Af Amer) 50 POC Glucose (mg/dL) 119 H 29 L* (65-110) mg/dL Random Glucose 34 L* D (75-110) mg/dL Calcium 8.4 L (8.6-10.4) mg/dl Phosphorus 3.7 (2.5-4.5) mg/dL Magnesium 2.0 (1.6-2.3) mg/dL Total Bilirubin 0.5 (0.2-1.3) mg/dL AST 28 (17-59) U/L ALT 22 (21-72) U/L Alkaline Phosphatase 135 H (38-126) U/L Total Protein 6.4 (6.3-8.3) g/dL Albumin 3.0 L (3.5-5.0) g/dL Globulin 3.5 (2.2-3.9) gm/dL Albumin/Globulin Ratio 0.9 L (1.0-2.1) 10/19/16 10/19/16 10/19/16 Range/Units 21:35 16:48 11:59 Sodium (132-148) mmol/L Potassium (3.6-5.2) mmol/L Chloride (98-107) mmol/L Carbon Dioxide (22-30) mmol/L Anion Gap (10-20) BUN (9-20) mg/dL Creatinine (0.8-1.5) MG/DL Est GFR ( Amer) Est GFR (Non-Af Amer) POC Glucose (mg/dL) 278 H 362 H 356 H (65-110) mg/dL Random Glucose (75-110) mg/dL Calcium (8.6-10.4) mg/dl Phosphorus (2.5-4.5) mg/dL Magnesium (1.6-2.3) mg/dL Total Bilirubin (0.2-1.3) mg/dL AST (17-59) U/L ALT (21-72) U/L Alkaline Phosphatase (38-126) U/L Total Protein (6.3-8.3) g/dL Albumin (3.5-5.0) g/dL Globulin (2.2-3.9) gm/dL Albumin/Globulin Ratio (1.0-2.1) Laboratory Results - last 24 hr 10/19/16 10/19/16 10/19/16 11:59 16:48 21:35 Sodium Potassium Chloride Carbon Dioxide Anion Gap BUN Creatinine Est GFR ( Amer) Est GFR (Non-Af Amer) POC Glucose (mg/dL) 356 H 362 H 278 H Random Glucose Calcium Phosphorus Magnesium Total Bilirubin AST ALT Alkaline Phosphatase Total Protein Albumin Globulin Albumin/Globulin Ratio 10/20/16 10/20/16 10/20/16 06:25 07:19 08:17 Sodium 136 Potassium 4.5 Chloride 109 H Carbon Dioxide 15 L Anion Gap 17 BUN 24 H Creatinine 1.4 Est GFR ( Amer) > 60 Est GFR (Non-Af Amer) 50 POC Glucose (mg/dL) 29 L* 119 H Random Glucose 34 L* D Calcium 8.4 L Phosphorus 3.7 Magnesium 2.0 Total Bilirubin 0.5 AST 28 ALT 22 Alkaline Phosphatase 135 H Total Protein 6.4 Albumin 3.0 L Globulin 3.5 Albumin/Globulin Ratio 0.9 L Fingerstick Blood Sugar Results: 29 Review of Systems - Constitutional Constitutional: Other (nausea) - EENT Eyes: UNREMARKABLE Ears: UNREMARKABLE Nose/Mouth/Throat: UNREMARKABLE - Cardiovascular Cardiovascular: UNREMARKABLE - Respiratory Respiratory: UNREMARKABLE - Gastrointestinal Gastrointestinal: UNREMARKABLE - Genitourinary Genitourinary: UNREMARKABLE - Musculoskeletal Musculoskeletal: Other Additional comments: right leg pain - Neurological Neurological: UNREMARKABLE - Psychiatric Psychiatric: UNREMARKABLE - Endocrine Endocrine: UNREMARKABLE - Hematologic/Lymphatic Hematologic: UNREMARKABLE Critical Care Progress Note - Prophylaxis GI Prophylaxis GI: Pepsid - Prophylaxis DVT Prophylaxis DVT: Heparin SQ - Nutrition Nutrition: Nutrition Category Date Time Status NPO Diet [DIET] Diets 10/20/16 Breakfast Active Assessment/Plan - Assessment and Plan (Free Text) Assessment: Patient is a 70-year-old male with past medical history of PAD, hypertension, carotid stenosis, pancreatic lesion who recently underwent a right femoral endarterectomy, and suddenly developed swelling, pain, tingling in the right lower extremity, along with increasing swelling over the right groin with the significant pain. 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 Patient underwent a surgical intervention, a stent was placed and patient was transferred to ICU for further management. Neuro: Hx of depression -duloxetine 40mg po hs -mirtazipine 30mg po hs Pulm: -flonase -incentive spirometry CV: Hx of CAD, HTN, right femoral endarterectomy, carotid endarterectomy, cardiac cath - Cardiology consulted- Dr. Elliott, help appreciated - stopped norvasc 10mg po daily due to low BP - aspirin 81 po dialy - plavix 75mg po daily - lopressor 25mg po bid - crestor 10mg po hs Endo: Hx of DM - episode of hypoglycemia today - glucose 21 on poc, d50 50ml given and glucose level responded to wnl - stopped glipizide 2.5mg po acbd; stopped insulin levemir 36 units po hs - Accuchecks, monitor blood glucose - Continue novolin 0 units achs GI: nausea, vomiting - NPO - Zofran 4mg ivp q6 prn - pepcid 20mg bid iv - colace 100mg po bid Heme: - Hgb 10.1 - platelets 121 - ferrous sulfate 325mg po bid Renal: Hx of BPH - finasteride 5mg po daily - flomax 0.4mg po daily MSK: pain in right lower extremity - dilaudid 0.5mg q6 prn for moderate to severe pain - discontinued percocet ID: blood culture with gram negative rods - wbc 10.1 - cefepime 1gm iv q12 - ketoconazole topical - vancomycin 1g iv q12 - infectious disease, Dr Herrera, consulted Prophylaxis: - DVT: heparin 5000u sc q8 - GI: pepcid iv q12 - PT treat and eval - out of bed to chair <Senia Jackson - Last Filed: 10/20/16 18:19> CCU Objective - Vital Signs / Intake & Output Vital Signs (Last 4 hours): Vital Signs Temp Pulse Resp BP Pulse Ox 10/20/16 17:00 77 17 96 10/20/16 16:41 73 18 152/75 H 95 10/20/16 16:00 98.1 F 90 13 152/75 H 99 10/20/16 15:41 84 16 150/75 98 10/20/16 15:00 82 15 97 10/20/16 14:41 82 13 141/72 98 Intake and Output (Last 8hrs): Intake & Output 10/20/16 10/20/16 10/20/16 06:59 14:59 22:59 Intake Total 100 2035 430 Output Total 800 1670 Balance -700 365 430 Intake: Intake, IV Amount 100 1235 350 Left Antecubital 100 310 Left Forearm 925 350 Oral 0 800 80 Output: Urine 800 950 Urine, Voided 800 950 Emesis 720 - Medications Active Medications: Active Medications Generic Name Dose Route Start Last Admin Trade Name Freq PRN Reason Stop Dose Admin Aspirin 81 mg 10/19/16 10:00 10/20/16 10:14 Ecotrin PO Not Given DAILY [facility] [place] Clopidogrel Bisulfate 75 mg 10/19/16 10:00 10/20/16 10:17 Plavix PO Not Given DAILY [facility] [place] Docusate Sodium 100 mg 10/18/16 18:00 10/20/16 13:55 Colace PO Not Given BID [facility] Duloxetine HCl 40 mg 10/18/16 22:00 10/19/16 21:50 Cymbalta PO 40 mg HS [facility]NA Administration Famotidine 20 mg 10/20/16 14:30 10/20/16 14:30 Pepcid IVP 20 mg DAILY [facility] Administration Ferrous Sulfate 325 mg 10/18/16 18:00 10/20/16 10:14 Feosol PO Not Given BID [facility] [place] Finasteride 5 mg 10/19/16 10:00 10/20/16 10:17 Proscar PO Not Given DAILY [facility] [place] Fluticasone Propionate 2 spr 10/19/16 10:00 10/20/16 10:15 Flonase EMMA Not Given DAILY [facility] Heparin Sodium (Porcine) 5,000 units 10/18/16 22:00 10/20/16 16:08 Heparin SC Not Given Q8 [facility] Hydromorphone HCl 0.5 mg 10/20/16 10:40 10/20/16 11:50 Dilaudid IVP 0.5 mg Q6H PRN Administration Pain, moderate (4-7) Vancomycin/Sodium Chloride 1 gm in 200 mls @ 133 mls/hr 10/18/16 15:30 16:30 Vancocin IVPB 10/23/16 15:31 133 mls/hr Q12H [facility] [place] Administration Meropenem 1 gm/ Sodium 100 mls @ 100 mls/hr 10/20/16 14:00 10/20/16 15:00 Chloride IVPB 100 mls/hr Q8 [facility] Administration Dextrose/Sodium Chloride 1,000 mls @ 100 mls/hr 10/20/16 17:56 Dextrose 5%/0.9% Ns 1000 Ml IV .Q10H [facility] [place] Insulin Human Regular 0 unit 10/19/16 22:00 10/20/16 16:30 Novolin R SC Not Given ACHS [facility] Protocol Ketoconazole 0 gm 10/19/16 10:00 10/20/16 13:56 Nizoral TOP Not Given DAILY [facility] [place] Metoprolol Tartrate 25 mg 10/18/16 21:00 10/20/16 09:56 Lopressor PO Not Given BID@0900,2100 [facility] [place] Mirtazapine 30 mg 10/18/16 22:00 10/19/16 21:47 Remeron PO 30 mg HS [facility] [place] Administration Ondansetron HCl 4 mg 10/20/16 09:06 10/20/16 14:20 Zofran Inj IVP 4 mg Q6 PRN Administration Nausea/Vomiting Rosuvastatin Calcium 10 mg 10/18/16 22:00 10/19/16 21:47 Crestor PO 10 mg HS [facility]NA Administration Tamsulosin HCl 0.4 mg 10/19/16 10:00 10/20/16 10:15 Flomax PO Not Given DAILY [facility] - Patient Studies Lab Studies: Microbiology Studies 10/18/16 Unknown MRSA Culture (Admit) - Final Nose MRSA NOT DETECTED 10/18/16 15:00 Blood Culture - Preliminary Blood-Venous Gram Negative Julian Gram Stain - Final Lab Studies 10/20/16 10/20/16 10/20/16 Range/Units 16:21 11:33 11:14 WBC 10.1 (4.8-10.8) K/uL RBC 3.51 L (4.40-5.90) Mil/uL Hgb 10.1 L (12.0-18.0) g/dL Hct 31.2 L (35.0-51.0) % MCV 88.9 (80.0-94.0) fL MCH 28.7 (27.0-31.0) pg MCHC 32.3 L (33.0-37.0) g/dL RDW 18.2 H (11.5-14.5) % Plt Count 121 L (130-400) K/uL MPV 8.6 (7.2-11.7) fL Neut % (Auto) 88.3 H (50.0-75.0) % Lymph % (Auto) 4.3 L (20.0-40.0) % [place] % (Auto) 5.9 (0.0-10.0) % Eos % (Auto) 0.9 (0.0-4.0) % Baso % (Auto) 0.6 (0.0-2.0) % Neut # 8.9 H (1.8-7.0) K/uL Lymph # 0.4 L (1.0-4.3) K/uL [place] # 0.6 (0.0-0.8) K/uL Eos # 0.1 (0.0-0.7) K/uL Baso # 0.1 (0.0-0.2) K/uL Neutrophils % (Manual) 83 H (50-75) % Band Neutrophils % 7 H (0-2) % Lymphocytes % (Manual) 7 L (20-40) % Monocytes % (Manual) 1 (0-10) % Eosinophils % (Manual) 2 (0-4) % Platelet Estimate Slightly decreased L (NORMAL) Poikilocytosis (manual Slight Anisocytosis (manual) Slight Ovalocytes Slight [place] Cells Moderate Sodium (132-148) mmol/L Potassium (3.6-5.2) mmol/L Chloride (98-107) mmol/L Carbon Dioxide (22-30) mmol/L Anion Gap (10-20) BUN (9-20) mg/dL Creatinine (0.8-1.5) MG/DL Est GFR ( Amer) Est GFR (Non-Af Amer) POC Glucose (mg/dL) 89 78 (65-110) mg/dL Random Glucose (75-110) mg/dL Calcium (8.6-10.4) mg/dl Phosphorus (2.5-4.5) mg/dL Magnesium (1.6-2.3) mg/dL Total Bilirubin (0.2-1.3) mg/dL AST (17-59) U/L ALT (21-72) U/L Alkaline Phosphatase (38-126) U/L Total Protein (6.3-8.3) g/dL Albumin (3.5-5.0) g/dL Globulin (2.2-3.9) gm/dL Albumin/Globulin Ratio (1.0-2.1) 10/20/16 10/20/16 10/20/16 Range/Units 08:17 07:19 06:25 WBC (4.8-10.8) K/uL RBC (4.40-5.90) Mil/uL Hgb (12.0-18.0) g/dL Hct (35.0-51.0) % MCV (80.0-94.0) fL MCH (27.0-31.0) pg MCHC (33.0-37.0) g/dL RDW (11.5-14.5) % Plt Count (130-400) K/uL MPV (7.2-11.7) fL Neut % (Auto) (50.0-75.0) % Lymph % (Auto) (20.0-40.0) % [place] % (Auto) (0.0-10.0) % Eos % (Auto) (0.0-4.0) % Baso % (Auto) (0.0-2.0) % Neut # (1.8-7.0) K/uL Lymph # (1.0-4.3) K/uL [place] # (0.0-0.8) K/uL Eos # (0.0-0.7) K/uL Baso # (0.0-0.2) K/uL Neutrophils % (Manual) (50-75) % Band Neutrophils % (0-2) % Lymphocytes % (Manual) (20-40) % Monocytes % (Manual) (0-10) % Eosinophils % (Manual) (0-4) % Platelet Estimate (NORMAL) Poikilocytosis (manual Anisocytosis (manual) Ovalocytes [place] Cells Sodium 136 (132-148) mmol/L Potassium 4.5 (3.6-5.2) mmol/L Chloride 109 H (98-107) mmol/L Carbon Dioxide 15 L (22-30) mmol/L Anion Gap 17 (10-20) BUN 24 H (9-20) mg/dL Creatinine 1.4 (0.8-1.5) MG/DL Est GFR ( Amer) > 60 Est GFR (Non-Af Amer) 50 POC Glucose (mg/dL) 119 H 29 L* (65-110) mg/dL Random Glucose 34 L* D (75-110) mg/dL Calcium 8.4 L (8.6-10.4) mg/dl Phosphorus 3.7 (2.5-4.5) mg/dL Magnesium 2.0 (1.6-2.3) mg/dL Total Bilirubin 0.5 (0.2-1.3) mg/dL AST 28 (17-59) U/L ALT 22 (21-72) U/L Alkaline Phosphatase 135 H (38-126) U/L Total Protein 6.4 (6.3-8.3) g/dL Albumin 3.0 L (3.5-5.0) g/dL Globulin 3.5 (2.2-3.9) gm/dL Albumin/Globulin Ratio 0.9 L (1.0-2.1) 10/19/16 Range/Units 21:35 WBC (4.8-10.8) K/uL RBC (4.40-5.90) Mil/uL Hgb (12.0-18.0) g/dL Hct (35.0-51.0) % MCV (80.0-94.0) fL MCH (27.0-31.0) pg MCHC (33.0-37.0) g/dL RDW (11.5-14.5) % Plt Count (130-400) K/uL MPV (7.2-11.7) fL Neut % (Auto) (50.0-75.0) % Lymph % (Auto) (20.0-40.0) % [place] % (Auto) (0.0-10.0) % Eos % (Auto) (0.0-4.0) % Baso % (Auto) (0.0-2.0) % Neut # (1.8-7.0) K/uL Lymph # (1.0-4.3) K/uL [place] # (0.0-0.8) K/uL Eos # (0.0-0.7) K/uL Baso # (0.0-0.2) K/uL Neutrophils % (Manual) (50-75) % Band Neutrophils % (0-2) % Lymphocytes % (Manual) (20-40) % Monocytes % (Manual) (0-10) % Eosinophils % (Manual) (0-4) % Platelet Estimate (NORMAL) Poikilocytosis (manual Anisocytosis (manual) Ovalocytes [place] Cells Sodium (132-148) mmol/L Potassium (3.6-5.2) mmol/L Chloride (98-107) mmol/L Carbon Dioxide (22-30) mmol/L Anion Gap (10-20) BUN (9-20) mg/dL Creatinine (0.8-1.5) MG/DL Est GFR ( Amer) Est GFR (Non-Af Amer) POC Glucose (mg/dL) 278 H (65-110) mg/dL Random Glucose (75-110) mg/dL Calcium (8.6-10.4) mg/dl Phosphorus (2.5-4.5) mg/dL Magnesium (1.6-2.3) mg/dL Total Bilirubin (0.2-1.3) mg/dL AST (17-59) U/L ALT (21-72) U/L Alkaline Phosphatase (38-126) U/L Total Protein (6.3-8.3) g/dL Albumin (3.5-5.0) g/dL Globulin (2.2-3.9) gm/dL Albumin/Globulin Ratio (1.0-2.1) Laboratory Results - last 24 hr 10/19/16 10/20/16 10/20/16 21:35 06:25 07:19 WBC RBC Hgb Hct MCV MCH MCHC RDW Plt Count MPV Neut % (Auto) Lymph % (Auto) [place] % (Auto) Eos % (Auto) Baso % (Auto) Neut # Lymph # [place] # Eos # Baso # Neutrophils % (Manual) Band Neutrophils % Lymphocytes % (Manual) Monocytes % (Manual) Eosinophils % (Manual) Platelet Estimate Poikilocytosis (manual Anisocytosis (manual) Ovalocytes [place] Cells Sodium 136 Potassium 4.5 Chloride 109 H Carbon Dioxide 15 L Anion Gap 17 BUN 24 H Creatinine 1.4 Est GFR ( Amer) > 60 Est GFR (Non-Af Amer) 50 POC Glucose (mg/dL) 278 H 29 L* Random Glucose 34 L* D Calcium 8.4 L Phosphorus 3.7 Magnesium 2.0 Total Bilirubin 0.5 AST 28 ALT 22 Alkaline Phosphatase 135 H Total Protein 6.4 Albumin 3.0 L Globulin 3.5 Albumin/Globulin Ratio 0.9 L 10/20/16 10/20/16 10/20/16 08:17 11:14 11:33 WBC 10.1 RBC 3.51 L Hgb 10.1 L Hct 31.2 L MCV 88.9 MCH 28.7 MCHC 32.3 L RDW 18.2 H Plt Count 121 L MPV 8.6 Neut % (Auto) 88.3 H Lymph % (Auto) 4.3 L [place] % (Auto) 5.9 Eos % (Auto) 0.9 Baso % (Auto) 0.6 Neut # 8.9 H Lymph # 0.4 L [place] # 0.6 Eos # 0.1 Baso # 0.1 Neutrophils % (Manual) 83 H Band Neutrophils % 7 H Lymphocytes % (Manual) 7 L Monocytes % (Manual) 1 Eosinophils % (Manual) 2 Platelet Estimate Slightly decreased L Poikilocytosis (manual Slight Anisocytosis (manual) Slight Ovalocytes Slight [place] Cells Moderate Sodium Potassium Chloride Carbon Dioxide Anion Gap BUN Creatinine Est GFR ( Amer) Est GFR (Non-Af Amer) POC Glucose (mg/dL) 119 H 78 Random Glucose Calcium Phosphorus Magnesium Total Bilirubin AST ALT Alkaline Phosphatase Total Protein Albumin Globulin Albumin/Globulin Ratio 10/20/16 16:21 WBC RBC Hgb Hct MCV MCH MCHC RDW Plt Count MPV Neut % (Auto) Lymph % (Auto) [place] % (Auto) Eos % (Auto) Baso % (Auto) Neut # Lymph # [place] # Eos # Baso # Neutrophils % (Manual) Band Neutrophils % Lymphocytes % (Manual) Monocytes % (Manual) Eosinophils % (Manual) Platelet Estimate Poikilocytosis (manual Anisocytosis (manual) Ovalocytes [place] Cells Sodium Potassium Chloride Carbon Dioxide Anion Gap BUN Creatinine Est GFR ( Amer) Est GFR (Non-Af Amer) POC Glucose (mg/dL) 89 Random Glucose Calcium Phosphorus Magnesium Total Bilirubin AST ALT Alkaline Phosphatase Total Protein Albumin Globulin Albumin/Globulin Ratio Critical Care Progress Note - Nutrition Nutrition: Nutrition Category Date Time Status NPO Diet [DIET] Diets 10/20/16 Breakfast Active Assessment/Plan - Assessment and Plan (Free Text) Assessment: patient since morning having episodes of nausea, and episodes of large vomiting. He is nothing by mouth at this time. Receiving IV fluid. We'll repeat the labs this evening. Patient is having gram-negative bacteremia in the blood. On antibiotic. Vital signs otherwise stable. We'll repeat the labs. If needed will get a CAT scan of the abdomen, underlying pancreatitis cannot be ruled out. Sepsis, and bacteremia.
[2016-10-20 11:18] LABS: BASO # 0.1 K/uL (0.0-0.2); BASO % 0.6 % (0.0-2.0); EOS # 0.1 K/uL (0.0-0.7); EOS % 0.9 % (0.0-4.0); HEMATOCRIT 31.2 % (35.0-51.0); LYMPH # 0.4 K/uL (1.0-4.3); LYMPH % 4.3 % (20.0-40.0); MEAN CELL VOLUME 88.9 fL (80.0-94.0); MEAN CORPUSCULAR HEMOGLOBIN 28.7 pg (27.0-31.0); MEAN CORPUSCULAR HGB CONC 32.3 g/dL (33.0-37.0); MEAN PLATELET VOLUME 8.6 fL (7.2-11.7); MONO # 0.6 K/uL (0.0-0.8); MONO % 5.9 % (0.0-10.0); PLATELET COUNT 121 K/uL (130-400); RED CELL DISTRIBUTION WIDTH 18.2 % (11.5-14.5); WHITE BLOOD COUNT 10.1 K/uL (4.8-10.8)
[2016-10-20] MEDS: HYDROmorphone 0.5 mg/0.5 ml ISec IVP PRN (11:50)
[2016-10-20 12:01] LABS: EOSINOPHIL 2 % (0-4); NEUTROPHIL 83 % (50-75); TOTAL CELLS COUNTED 100
--- NOTE | 2016-10-20 12:06 | CP.PCM.CON ---
History of Present Illness - History of Present Illness History of Present Illness: 70-year-old male with history of PAD, hypertension, carotid stenosis, pancreatic lesion recently underwent a right femoral endarterectomy, patient was recovering from the surgery, but suddenly he developed a swelling, pain, tingling in the right lower extremity, along with increasing swelling over the right groin with the significant pain. Unable to walk because of the worsening pain, and he came into the emergency room. In the emergency room patient was evaluated, seen by vascular surgery, found to have pseudoaneurysm, with the bleeding needed emergency management. Patient underwent a surgical intervention, stent was placed and covered, patient transferred to ICU for further management. Blood c/s + gram neg rods Past medical history: Hypertension. Is coronary artery disease diabetes and BPH Allergies no known drug allergy Surgical history noted from the chart Family history hypertension diabetes Patient has a significant smoking history no alcohol Review of Systems - Review of Systems Systems not reviewed;Unavailable: Altered Mental Status - Constitutional Constitutional: As Per HPI - EENT Eyes: absent: As Per HPI, Blind Spots, Blurred Vision, Change in Vision, Decreased Night Vision, Diplopia, Discharge, Dry Eye, Exophthalmos, Floaters, Irritation, Itchy Eyes, Loss of Peripheral Vision, Pain, Photophobia, Requires Corrective Lenses, Sees Flashes, Spots in Vision, Tunnel Vision, Other Visual Disturbances, Loss of Vision, Other Ears: absent: As Per HPI, Decreased Hearing, Ear Discharge, Ear Pain, Tinnitus, Abnormal Hearing, Disequilibrium, Dizziness, Other Nose/Mouth/Throat: absent: As Per HPI, Epistaxis, Nasal Congestion, Nasal Discharge, Nasal Obstruction, Nasal Trauma, Nose Pain, Post Nasal Drip, Sinus Pain, Sinus Pressure, Bleeding Gums, Change in Voice, Dental Pain, Dry Mouth, Dysphagia, Halitosis, Hoarsness, Lip Swelling, Mouth Lesions, Mouth Pain, Odynophagia, Sore Throat, Throat Swelling, Tongue Swelling, Facial Pain, Neck Pain, Neck Mass, Other - Cardiovascular Cardiovascular: absent: As Per HPI, Acrocyanosis, Chest Pain, Chest Pain at Rest , Chest Pain with Activity, Claudication, Diaphoresis, Dyspnea, Dyspnea on Exertion, Edema, Irregular Heart Rhythm, Pain Radiating to Arm/Neck/Jaw, Leg Edema, Leg Ulcers, Lightheadedness, Orthopnea, Palpitations, Paroxysmal Nocturnal Dyspnea, Pedal Edema, Radiating Pain, Rapid Heart Rate, Slow Heart Rate, Syncope, Other - Respiratory Respiratory: absent: As Per HPI, Cough, Dyspnea, Hemoptysis, Dyspnea on Exertion , Wheezing, Snoring, Stridor, Pain on Inspiration, Chest Congestion, Excessive Mucous Production, Change in Mucous Color, Pain with Coughing, Other - Gastrointestinal Gastrointestinal: absent: As Per HPI, Abdominal Pain, Belching, Bloating, Change in Bowel Habits, Change in Stool Character, Coffee Ground Emesis, Constipation, Cramping, Diarrhea, Dyspepsia, Dysphagia, Early Satiety, Excessive Flatus, Fecal Incontinence, Heartburn, Hematemesis, Hematochezia, Loose Stools, Melena, Nausea, Odynophagia, Temesmus, Vomiting, Other - Genitourinary Genitourinary: absent: As Per HPI, Change in Urinary Stream, Difficulty Urinating, Dysuria, Flank Pain, Hematuria, Pyuria, Nocturia, Urinary Incontinence, Urinary Frequency, Urinary Hesitance, Urinary Urgency, Voiding Freq/Small Amts, Freq UTI, Hx Renal/Bladder Calculi, Hx /Renal Surgery, Bladder Distension, Other - Musculoskeletal Musculoskeletal: absent: As Per HPI, Abnormal Gait, Arthralgias, Atrophy, Back Pain, Deformity, Joint Swelling, Limited Range of Motion, Loss of Height, Muscle Cramps, Muscle Weakness, Myalgias, Neck Pain, Numbness, Radiating Pain into Limb, Stiffness, Tingling, Other - Integumentary Integumentary: As Per HPI - Neurological Neurological: absent: As Per HPI, Abnormal Gait, Abnormal Hearing, Abnormal Movements, Abnormal Speech, Behavioral Changes, Burning Sensations, Confusion, Convulsions, Disequilibrium, Dizziness, Numbness, Focal Weakness, Frequent Falls , Headaches, Lack of Coordination, Loss of Vision, Memory Loss, Paresthesias, Radicular Pain, Restless Legs, Sensory Deficit, Syncope, Tingling, Tremor, Vertigo, Weakness, Other Visual Disturbances, Other - Psychiatric Psychiatric: absent: As Per HPI, Abnormal Sleep Pattern, Anhedonia, Anxiety, Auditory Hallucinations, Behavioral Changes, Change in Appetite, Change in Libido, Confusion, Depression, Difficulty Concentrating, Hallucinations, Homicidal Ideation, Hopelessness, Irritability, Memory Loss, Mood Swings, Panic Attacks, Paranoia, Suicidal Ideation, Visual Hallucinations, Tactile Hallucinations, Other - Endocrine Endocrine: absent: As Per HPI, Change in Body Appearance, Change in Libido, Cold Intolorance, Deepening of Voice, Excessive Sweating, Fatigue, Flushing, Heat Intolorance, Increase in Ring/Shoe/Hat Size, Palpitations, Polydipsia, Polyphagia, Polyuria, Other - Hematologic/Lymphatic Hematologic: absent: As Per HPI, Easy Bleeding, Easy Bruising, Lymphadenopathy, Other Past Patient History - Infectious Disease Hx of Infectious Diseases: None - Past Medical History & Family History Past Medical History?: Yes - Past Social History Smoking Status: Heavy Smoker > 10 Cigarettes Daily - CARDIAC Hx Heart Murmur: Yes Hx Hypertension: Yes - PULMONARY Hx Respiratory Disorders: No - NEUROLOGICAL Hx Syncope: Yes Hx Vertigo: Yes - HEENT Other/Comment: glasses for reading - RENAL Hx Chronic Kidney Disease: No - ENDOCRINE/METABOLIC Hx Endocrine Disorders: Yes Hx Diabetes Mellitus Type 2: Yes - HEMATOLOGICAL/ONCOLOGICAL Hx Blood Disorders: No Hx Anemia: Yes Hx Blood Transfusions: Yes Hx Blood Transfusion Reaction: No - INTEGUMENTARY Hx Dermatological Problems: No - MUSCULOSKELETAL/RHEUMATOLOGICAL Hx Falls: Yes - GASTROINTESTINAL Hx Pancreatitis: Yes - GENITOURINARY/GYNECOLOGICAL Hx Genitourinary Disorders: Yes Hx Prostate Problems: Yes (BPH) - PSYCHIATRIC Hx Depression: Yes Hx Substance Use: Yes - SURGICAL HISTORY Hx Carotid Endarterectomy: Yes (L [facility]) - ANESTHESIA Hx Anesthesia: Yes Hx Anesthesia Reactions: No Hx Malignant Hyperthermia: No Meds Allergies/Adverse Reactions: Allergies Allergy/AdvReac Type Severity Reaction Status Date / Time No Known Allergies Allergy Verified 10/18/16 01:31 - Medications Medications: Current Medications Aspirin (Ecotrin) 81 mg PO DAILY [facility] Last Admin: 10/20/16 10:14 Dose: Not Given Clopidogrel Bisulfate (Plavix) 75 mg PO DAILY [facility] Last Admin: 10/20/16 10:17 Dose: Not Given Docusate Sodium (Colace) 100 mg PO BID [facility] Last Admin: 10/19/16 18:07 Dose: 100 mg Duloxetine HCl (Cymbalta) 40 mg PO HS [facility] Last Admin: 10/19/16 21:50 Dose: 40 mg Famotidine (Pepcid) 20 mg PO BID [facility] Last Admin: 10/20/16 10:16 Dose: Not Given Ferrous Sulfate (Feosol) 325 mg PO BID [facility] Last Admin: 10/20/16 10:14 Dose: Not Given Finasteride (Proscar) 5 mg PO DAILY [facility] Last Admin: 10/20/16 10:17 Dose: Not Given Fluticasone Propionate (Flonase) 2 spr EMMA DAILY [facility] Last Admin: 10/20/16 10:15 Dose: Not Given Heparin Sodium (Porcine) (Heparin) 5,000 units SC Q8 [facility] Last Admin: 10/20/16 06:20 Dose: 5,000 units Hydromorphone HCl (Dilaudid) 0.5 mg IVP Q6H PRN PRN Reason: Pain, moderate (4-7) Last Admin: 10/20/16 11:50 Dose: 0.5 mg Vancomycin/Sodium Chloride (Vancocin) 1 gm in 200 mls @ 133 mls/hr IVPB Q12H [facility] Stop: 10/23/16 15:31 Last Admin: 10/20/16 03:30 Dose: 133 mls/hr Cefepime HCl (Maxipime Iv 1 Gm Premix) 1 gm in 50 mls @ 100 mls/hr IVPB Q12H [facility] Last Admin: 10/20/16 09:00 Dose: 100 mls/hr Dextrose/Sodium Chloride (Dextrose 5%/0.9% Ns 1000 Ml) 1,000 mls @ 75 mls/hr IV .[id number] [facility] Last Admin: 10/20/16 09:53 Dose: 75 mls/hr Insulin Human Regular (Novolin R) 0 unit SC ACHS [facility] PRN Reason: Protocol Last Admin: 10/20/16 09:10 Dose: Not Given Ketoconazole (Nizoral) 0 gm TOP DAILY [facility] Last Admin: 10/19/16 09:58 Dose: 1 applic Metoprolol Tartrate (Lopressor) 25 mg PO BID@0900,2100 [facility] Last Admin: 10/20/16 09:56 Dose: Not Given Mirtazapine (Remeron) [address] [facility] Last Admin: 10/19/16 21:47 Dose: 30 mg Ondansetron HCl (Zofran Inj) 4 mg IVP Q6 PRN PRN Reason: Nausea/Vomiting Last Admin: 10/20/16 09:50 Dose: 4 mg Rosuvastatin Calcium (Crestor) 10 mg PO HS [facility] Last Admin: 10/19/16 21:47 Dose: 10 mg Tamsulosin HCl (Flomax) 0.4 mg PO DAILY [facility] Last Admin: 10/20/16 10:15 Dose: Not Given Physical Exam - Constitutional Appears: Non-toxic, Chronically Ill - Head Exam Head Exam: NORMOCEPHALIC - Eye Exam Eye Exam: PERRL. absent: Scleral icterus - ENT Exam ENT Exam: Mucous Membranes Dry - Neck Exam Neck exam: Negative for: Lymphadenopathy - Respiratory Exam Respiratory Exam: Decreased Breath Sounds, Rhonchi - Cardiovascular Exam Cardiovascular Exam: REGULAR RHYTHM - GI/Abdominal Exam GI & Abdominal Exam: Diminished Bowel Sounds, Soft - Rectal Exam Rectal Exam: Deferred - Exam Exam: NORMAL INSPECTION - Extremities Exam Extremities exam: Positive for: pedal pulses present. Negative for: calf tenderness, pedal edema, tenderness Additional comments: right groin wound dry intact - Back Exam Back exam: absent: CVA tenderness (L), CVA tenderness (R) - Neurological Exam Neurological exam: Alert, CN II-XII Intact, Oriented x3, Reflexes Normal - Psychiatric Exam Psychiatric exam: Normal Mood - Skin Skin Exam: Dry Results - Vital Signs Recent Vital Signs: Last Vital Signs Temp 97.4 F L 10/20/16 08:00 Pulse 83 10/20/16 09:44 Resp 10 L 10/20/16 09:44 BP 113/74 10/20/16 09:56 Pulse Ox 83 L 10/20/16 09:44 - Labs Result Diagrams: 10/22/16 06:04 10/22/16 06:04 Labs: Laboratory Results - last 24 hr 10/19/16 10/19/16 10/19/16 11:59 16:48 21:35 WBC RBC Hgb Hct MCV MCH MCHC RDW Plt Count MPV Neut % (Auto) Lymph % (Auto) [place] % (Auto) Eos % (Auto) Baso % (Auto) Neut # Lymph # [place] # Eos # Baso # Neutrophils % (Manual) Band Neutrophils % Lymphocytes % (Manual) Monocytes % (Manual) Eosinophils % (Manual) Platelet Estimate Poikilocytosis (manual Anisocytosis (manual) Ovalocytes [place] Cells Sodium Potassium Chloride Carbon Dioxide Anion Gap BUN Creatinine Est GFR ( Amer) Est GFR (Non-Af Amer) POC Glucose (mg/dL) 356 H 362 H 278 H Random Glucose Calcium Phosphorus Magnesium Total Bilirubin AST ALT Alkaline Phosphatase Total Protein Albumin Globulin Albumin/Globulin Ratio 10/20/16 10/20/16 10/20/16 06:25 07:19 08:17 WBC RBC Hgb Hct MCV MCH MCHC RDW Plt Count MPV Neut % (Auto) Lymph % (Auto) [place] % (Auto) Eos % (Auto) Baso % (Auto) Neut # Lymph # [place] # Eos # Baso # Neutrophils % (Manual) Band Neutrophils % Lymphocytes % (Manual) Monocytes % (Manual) Eosinophils % (Manual) Platelet Estimate Poikilocytosis (manual Anisocytosis (manual) Ovalocytes [place] Cells Sodium 136 Potassium 4.5 Chloride 109 H Carbon Dioxide 15 L Anion Gap 17 BUN 24 H Creatinine 1.4 Est GFR ( Amer) > 60 Est GFR (Non-Af Amer) 50 POC Glucose (mg/dL) 29 L* 119 H Random Glucose 34 L* D Calcium 8.4 L Phosphorus 3.7 Magnesium 2.0 Total Bilirubin 0.5 AST 28 ALT 22 Alkaline Phosphatase 135 H Total Protein 6.4 Albumin 3.0 L Globulin 3.5 Albumin/Globulin Ratio 0.9 L 10/20/16 10/20/16 11:14 11:33 WBC 10.1 RBC 3.51 L Hgb 10.1 L Hct 31.2 L MCV 88.9 MCH 28.7 MCHC 32.3 L RDW 18.2 H Plt Count 121 L MPV 8.6 Neut % (Auto) 88.3 H Lymph % (Auto) 4.3 L [place] % (Auto) 5.9 Eos % (Auto) 0.9 Baso % (Auto) 0.6 Neut # 8.9 H Lymph # 0.4 L [place] # 0.6 Eos # 0.1 Baso # 0.1 Neutrophils % (Manual) 83 H Band Neutrophils % 7 H Lymphocytes % (Manual) 7 L Monocytes % (Manual) 1 Eosinophils % (Manual) 2 Platelet Estimate Slightly decreased L Poikilocytosis (manual Slight Anisocytosis (manual) Slight Ovalocytes Slight [place] Cells Moderate Sodium Potassium Chloride Carbon Dioxide Anion Gap BUN Creatinine Est GFR ( Amer) Est GFR (Non-Af Amer) POC Glucose (mg/dL) 78 Random Glucose Calcium Phosphorus Magnesium Total Bilirubin AST ALT Alkaline Phosphatase Total Protein Albumin Globulin Albumin/Globulin Ratio Assessment & Plan (1) Bacteremia Status: Acute (2) 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
--- NOTE | 2016-10-20 12:30 | CARD ---
APPROVED REPORT EKG Measurement Heart [id number] <Conclusion> Sinus tachycardia with frequent premature ventricular complexes Possible Left atrial enlargement Left axis deviation Septal infarct, age undetermined Inferior infarct, age undetermined Abnormal ECG
[2016-10-20] MEDS: GlipiZIDE 2.5 mg SR Tab PO SCH (13:57)
[2016-10-20] MEDS: Meropenem 1 GM in Sodium Chloride 0.9% 100 ML IVPB SCH ×2 (15:00→22:00)
--- NOTE | 2016-10-20 16:28 | CP.PCM.PN ---
Subjective - Date & Time of Evaluation Date of Evaluation: 10/20/16 Time of Evaluation: 07:00 - Subjective Subjective: VASCULAR SURGERY PROGRESS NOTE FOR DR. DENIS Patient seen and examined at bedside in the ICU. Patient reports vomiting 4 times today. Denies pain in the leg or groin. Had hypoglcemia down to 28 this morning. Now improved after d50. Blood cx grew Gram negative rods. Other cx negative at 24 hours. Objective - Vital Signs/Intake and Output Vital Signs (last 24 hours): Temp Pulse Resp BP Pulse Ox 97.9 F 82 15 141/72 97 10/20/16 12:00 10/20/16 15:00 10/20/16 15:00 10/20/16 14:41 10/20/16 15:00 Intake and Output: 10/20/16 10/20/16 06:59 18:59 Intake Total 200 930 Output Total 800 1520 Balance -600 -590 - Medications Medications: Current Medications Aspirin (Ecotrin) 81 mg PO DAILY [facility] Last Admin: 10/20/16 10:14 Dose: Not Given Clopidogrel Bisulfate (Plavix) 75 mg PO DAILY [facility] Last Admin: 10/20/16 10:17 Dose: Not Given Docusate Sodium (Colace) 100 mg PO BID [facility] Last Admin: 10/20/16 13:55 Dose: Not Given Duloxetine HCl (Cymbalta) 40 mg PO HS [facility] Last Admin: 10/19/16 21:50 Dose: 40 mg Famotidine (Pepcid) 20 mg IVP DAILY [facility] Ferrous Sulfate (Feosol) 325 mg PO BID [facility] Last Admin: 10/20/16 10:14 Dose: Not Given Finasteride (Proscar) 5 mg PO DAILY [facility] Last Admin: 10/20/16 10:17 Dose: Not Given Fluticasone Propionate (Flonase) 2 spr [facility]MA DAILY [facility] Last Admin: 10/20/16 10:15 Dose: Not Given Heparin Sodium (Porcine) (Heparin) 5,000 units SC Q8 [facility] Last Admin: 10/20/16 16:08 Dose: Not Given Hydromorphone HCl (Dilaudid) 0.5 mg IVP Q6H PRN PRN Reason: Pain, moderate (4-7) Last Admin: 10/20/16 11:50 Dose: 0.5 mg Vancomycin/Sodium Chloride (Vancocin) 1 gm in 200 mls @ 133 mls/hr IVPB Q12H [facility] Stop: 10/23/16 15:31 Last Admin: 10/20/16 03:30 Dose: 133 mls/hr Dextrose/Sodium Chloride (Dextrose 5%/0.9% Ns 1000 Ml) 1,000 mls @ 75 mls/hr IV .[id number] [facility] Last Admin: 10/20/16 09:53 Dose: 75 mls/hr Meropenem 1 gm/ Sodium (Chloride) 100 mls @ 100 mls/hr IVPB Q8 [facility] Insulin Human Regular (Novolin R) 0 unit SC ACHS [facility] PRN Reason: Protocol Last Admin: 10/20/16 12:00 Dose: Not Given Ketoconazole (Nizoral) 0 gm TOP DAILY [facility] Last Admin: 10/20/16 13:56 Dose: Not Given Metoprolol Tartrate (Lopressor) 25 mg PO BID@0900,2100 [facility] Last Admin: 10/20/16 09:56 Dose: Not Given Mirtazapine (Remeron) 30 mg PO [facility] Last Admin: 10/19/16 21:47 Dose: 30 mg Ondansetron HCl (Zofran Inj) 4 mg IVP Q6 PRN PRN Reason: Nausea/Vomiting Last Admin: 10/20/16 09:50 Dose: 4 mg Rosuvastatin Calcium (Crestor) 10 mg PO [facility] Last Admin: 10/19/16 21:47 Dose: 10 mg Tamsulosin HCl (Flomax) 0.4 mg PO DAILY [facility] Last Admin: 10/20/16 10:15 Dose: Not Given - Labs Labs: 10/20/16 11:14 10/20/16 06:25 PT 12.0 SECONDS (9.7-12.2) 10/18/16 02:06 INR 1.1 10/18/16 02:06 APTT 30 SECONDS (21-34) 10/18/16 02:06 - Constitutional Appears: Non-toxic, No Acute Distress - Eye Exam Eye Exam: EOMI, Normal appearance - Respiratory Exam Respiratory Exam: NORMAL BREATHING PATTERN. absent: Respiratory Distress - Cardiovascular Exam Cardiovascular Exam: +S1, +S2 - Extremities Exam Additional comments: Right groin dressing clean/dry/intact Genna in place from left groin Palpable posterior tibialis pulse right foot - Neurological Exam Neurological Exam: Alert, Awake, Oriented x3 - Psychiatric Exam Psychiatric exam: Normal Affect, Normal Mood Assessment and Plan - Assessment and Plan (Free Text) Assessment: 70yo M with ruptured right common femoral artery pseudoaneurysm s/p emergency percutaneous endovascular repair of ruptured common femoral artery pseudoaneurysm VBX stent POD#2 - Hgb 10.1, increased from yesterday - Palpable PT pulse right leg - Patient clear for DC vascular tucker but now has gram - bacteremia and had episodes of hypoglyemia this morning - Will continue to monitor - Discussed plan with Dr. Denis
[2016-10-20] MEDS: Dextrose 5%/0.9% NS 1,000 ML IV SCH (19:31)
[2016-10-20 21:34] LABS: BASO # 0.1 K/uL (0.0-0.2); BASO % 0.8 % (0.0-2.0); EOS # 0.2 K/uL (0.0-0.7); EOS % 2.3 % (0.0-4.0); LYMPH # 0.6 K/uL (1.0-4.3); LYMPH % 7.9 % (20.0-40.0); MEAN CELL VOLUME 86.1 fL (80.0-94.0); MEAN CORPUSCULAR HEMOGLOBIN 29.1 pg (27.0-31.0); MEAN CORPUSCULAR HGB CONC 33.8 g/dL (33.0-37.0); MEAN PLATELET VOLUME 7.8 fL (7.2-11.7); MONO # 0.4 K/uL (0.0-0.8); MONO % 4.6 % (0.0-10.0); PLATELET COUNT 135 K/uL (130-400); WHITE BLOOD COUNT 7.9 K/uL (4.8-10.8)
[2016-10-20 21:44] LABS: BILIRUBIN,TOTAL 0.5 mg/dL (0.2-1.3)
[2016-10-20 21:45] LABS: ALB/GLOB RATIO 0.9 (1.0-2.1); CALCIUM 8.9 mg/dl (8.6-10.4); TOTAL PROTEIN 6.8 g/dL (6.3-8.3)
--- NOTE | 2016-10-20 22:09 | CP.PCM.PN ---
Subjective - Date & Time of Evaluation Date of Evaluation: 10/20/16 Time of Evaluation: 17:30 - Subjective Subjective: Patient seen and evaluated Today's events noted Denies chest pain and dyspnea Objective - Vital Signs/Intake and Output Vital Signs (last 24 hours): Temp Pulse Resp BP Pulse Ox 98.2 F 85 15 142/69 98 10/20/16 20:00 10/20/16 21:41 10/20/16 21:41 10/20/16 21:41 10/20/16 21:41 Intake and Output: 10/20/16 10/21/16 18:59 06:59 Intake Total 2600 300 Output Total 2870 300 Balance -270 0 - Medications Medications: Current Medications Aspirin (Ecotrin) 81 mg PO DAILY [facility] Last Admin: 10/20/16 10:14 Dose: Not Given Clopidogrel Bisulfate (Plavix) 75 mg PO DAILY [facility] Last Admin: 10/20/16 10:17 Dose: Not Given Docusate Sodium (Colace) 100 mg PO BID [facility] Last Admin: 10/20/16 19:30 Dose: Not Given Duloxetine HCl (Cymbalta) 40 mg PO HS [facility] Last Admin: 10/19/16 21:50 Dose: 40 mg Famotidine (Pepcid) 20 mg IVP DAILY [facility] Last Admin: 10/20/16 14:30 Dose: 20 mg Ferrous Sulfate (Feosol) 325 mg PO BID [facility] Last Admin: 10/20/16 10:14 Dose: Not Given Finasteride (Proscar) 5 mg PO DAILY [facility] Last Admin: 10/20/16 10:17 Dose: Not Given Fluticasone Propionate (Flonase) 2 spr [facility]MA DAILY [facility] Last Admin: 10/20/16 10:15 Dose: Not Given Heparin Sodium (Porcine) (Heparin) 5,000 units SC Q8 [facility] Last Admin: 10/20/16 16:08 Dose: Not Given Hydromorphone HCl (Dilaudid) 0.5 mg IVP Q6H PRN PRN Reason: Pain, moderate (4-7) Last Admin: 10/20/16 11:50 Dose: 0.5 mg Vancomycin/Sodium Chloride (Vancocin) 1 gm in 200 mls @ 133 mls/hr IVPB Q12H [facility] Stop: 10/23/16 15:31 Last Admin: 10/20/16 16:30 Dose: 133 mls/hr Meropenem 1 gm/ Sodium (Chloride) 100 mls @ 100 mls/hr IVPB Q8 [facility] Last Admin: 10/20/16 15:00 Dose: 100 mls/hr Dextrose/Sodium Chloride (Dextrose 5%/0.9% Ns 1000 Ml) 1,000 mls @ 100 mls/hr IV .Q10H [facility] Last Admin: 10/20/16 19:31 Dose: Not Given Insulin Human Regular (Novolin R) 0 unit SC ACHS [facility] PRN Reason: Protocol Last Admin: 10/20/16 16:30 Dose: Not Given Ketoconazole (Nizoral) 0 gm TOP DAILY [facility] Last Admin: 10/20/16 13:56 Dose: Not Given Metoprolol Tartrate (Lopressor) 25 mg PO BID@0900,2100 [facility] Last Admin: 10/20/16 09:56 Dose: Not Given Mirtazapine (Remeron) 30 mg PO [facility] Last Admin: 10/19/16 21:47 Dose: 30 mg Ondansetron HCl (Zofran Inj) 4 mg IVP Q6 PRN PRN Reason: Nausea/Vomiting Last Admin: 10/20/16 14:20 Dose: 4 mg Rosuvastatin Calcium (Crestor) 10 mg PO HS [facility] Last Admin: 10/19/16 21:47 Dose: 10 mg Tamsulosin HCl (Flomax) 0.4 mg PO DAILY [facility] Last Admin: 10/20/16 10:15 Dose: Not Given - Labs Labs: 10/20/16 21:25 10/20/16 21:25 PT 12.0 SECONDS (9.7-12.2) 10/18/16 02:06 INR 1.1 10/18/16 02:06 APTT 30 SECONDS (21-34) 10/18/16 02:06 - Head Exam Head Exam: ATRAUMATIC, NORMAL INSPECTION - Eye Exam Eye Exam: EOMI, PERRL Pupil Exam: NORMAL ACCOMODATION - ENT Exam ENT Exam: Mucous Membranes Moist - Neck Exam Neck Exam: Full ROM, Normal Inspection - Respiratory Exam Respiratory Exam: Clear to Ausculation Bilateral, NORMAL BREATHING PATTERN - Cardiovascular Exam Cardiovascular Exam: REGULAR RHYTHM, +S1, +S2 - GI/Abdominal Exam GI & Abdominal Exam: Soft, Normal Bowel Sounds - Extremities Exam Extremities Exam: Full ROM - Neurological Exam Neurological Exam: Alert, Awake, Oriented x3 - Psychiatric Exam Psychiatric exam: Normal Mood - Skin Skin Exam: Dry, Warm Assessment and Plan - Assessment and Plan (Free Text) Assessment: 1. bacteremia 2. S/P [employer] stent placement 3. CAD 4. PAD 5. S/P Hypoglemia
[2016-10-20 22:13] LABS: EOSINOPHIL 1 % (0-4); NEUTROPHIL 93 % (50-75); TOTAL CELLS COUNTED 100
--- NOTE | 2016-10-21 03:20 | CT ---
EXAM: CT Abdomen and Pelvis Without Intravenous Contrast CLINICAL HISTORY: 70 years old, male; Signs and symptoms; Vomiting TECHNIQUE: Axial computed tomography images of the abdomen and pelvis without intravenous contrast. All CT scans at this facility use one or more dose reduction techniques, viz.: automated exposure control; ma/kV adjustment per patient size (including targeted exams where dose is matched to indication; i.e. head); or iterative reconstruction technique. Coronal and sagittal reformatted images were created and reviewed. COMPARISON: CT - ANGIOGRAPHY ABD ILEOFE 09/21/2016 1:00:35 PM FINDINGS: Lower thorax: Mild cardiomegaly. Fluid in the distal esophagus. Mildly distended stomach with air-fluid level. ABDOMEN: Liver: Unremarkable. Gallbladder and bile ducts: Cholelithiasis. No ductal dilation. Pancreas: Pancreas is slightly prominent with calcifications. Pancreatic duct is dilated measuring up to 4.5 mm. Findings consistent with chronic pancreatitis. Spleen: Unremarkable. No splenomegaly. Adrenals: Unremarkable. No mass. Kidneys and ureters: Punctate right renal calculi. 10 mm hypodensity right kidney, incompletely characterized. Bilateral renal cortical lobulation. 3 mm left renal calculus. No hydronephrosis. Stomach and bowel: Duodenum is mildly distended. Duodenal wall thickening and prominence of C-loop of duodenum. Contrast in the dense stool seen in colon. Sigmoid diverticulosis. Appendix: No findings to suggest acute appendicitis. PELVIS: Bladder: Unremarkable. No stones. Reproductive: Unremarkable as visualized. ABDOMEN and PELVIS: Intraperitoneal space: Unremarkable. No free air. No significant fluid collection. Bones/joints: No acute fracture. No dislocation. Soft tissues: Probable hematoma right groin. Vascular stent in place. Correlate clinically. Ultrasound of right groin, if clinically warranted. Recent surgery right groin. Vasculature: Atherosclerotic vascular disease. The aorta is atherosclerotic. Lymph nodes: Unremarkable. No enlarged lymph nodes. IMPRESSION: 1. Cholelithiasis. 2. Pancreas is slightly prominent with calcifications. Pancreatic duct is dilated measuring up to 4.5 mm. Findings consistent with chronic pancreatitis. 3. Duodenum is mildly distended. Duodenal wall thickening and prominence of C-loop of duodenum. 4. Probable hematoma right groin. Vascular stent in place. Correlate clinically. Ultrasound of right groin, if clinically warranted.
[2016-10-21] MEDS: Dextrose 5%/0.9% NS 1,000 ML IV SCH ×3 (04:30→17:36)
[2016-10-21] MEDS: Vancomycin 1 gm/NS 200 ml 1 GM/200 ML BAG IVPB SCH (04:30)
[2016-10-21] MEDS: Meropenem 1 GM in Sodium Chloride 0.9% 100 ML IVPB SCH ×3 (06:01→22:30)
[2016-10-21 06:50] LABS: BASO % 0.6 % (0.0-2.0); EOS # 0.2 K/uL (0.0-0.7); EOS % 2.6 % (0.0-4.0); HEMATOCRIT 30.7 % (35.0-51.0); LYMPH # 0.6 K/uL (1.0-4.3); LYMPH % 8.2 % (20.0-40.0); MEAN CELL VOLUME 86.3 fL (80.0-94.0); MEAN CORPUSCULAR HEMOGLOBIN 29.2 pg (27.0-31.0); MEAN CORPUSCULAR HGB CONC 33.9 g/dL (33.0-37.0); MEAN PLATELET VOLUME 8.5 fL (7.2-11.7); MONO # 0.4 K/uL (0.0-0.8); MONO % 5.2 % (0.0-10.0); PLATELET COUNT 157 K/uL (130-400); RED CELL DISTRIBUTION WIDTH 17.7 % (11.5-14.5); WHITE BLOOD COUNT 7.5 K/uL (4.8-10.8)
[2016-10-21 07:04] LABS: POTASSIUM 3.6 mmol/L (3.6-5.2)
[2016-10-21 07:06] LABS: ALB/GLOB RATIO 0.9 (1.0-2.1); BILIRUBIN,TOTAL 0.6 mg/dL (0.2-1.3); TOTAL PROTEIN 6.9 g/dL (6.3-8.3)
[2016-10-21 07:07] LABS: CALCIUM 8.8 mg/dl (8.6-10.4); PHOSPHOROUS 4.2 mg/dL (2.5-4.5)
[2016-10-21] MEDS: (Novolin R) Insulin Human Regular 100 units/ml vial SC SCH ×4 (08:23→22:31)
--- NOTE | 2016-10-21 08:23 | CP.PCM.PN ---
Subjective - Date & Time of Evaluation Date of Evaluation: 10/21/16 Time of Evaluation: 08:22 - Subjective Subjective: 1 of 2 blood culture showed e coli ID involved intermittent NV/hypoglycemia gi to see strong pulse Objective - Vital Signs/Intake and Output Vital Signs (last 24 hours): Temp Pulse Resp BP Pulse Ox 98.4 F 92 H 23 122/79 100 10/21/16 04:00 10/21/16 06:41 10/21/16 06:41 10/21/16 06:41 10/21/16 06:41 Intake and Output: 10/21/16 10/21/16 06:59 18:59 Intake Total 1200 Output Total 800 Balance 400 - Medications Medications: Current Medications Aspirin (Ecotrin) 81 mg PO DAILY [facility] Last Admin: 10/20/16 10:14 Dose: Not Given Clopidogrel Bisulfate (Plavix) 75 mg PO DAILY [facility] Last Admin: 10/20/16 10:17 Dose: Not Given Docusate Sodium (Colace) 100 mg PO BID [facility] Last Admin: 10/20/16 19:30 Dose: Not Given Duloxetine HCl (Cymbalta) 40 mg PO HS [facility] Last Admin: 10/20/16 23:25 Dose: Not Given Famotidine (Pepcid) 20 mg IVP DAILY [facility] Last Admin: 10/20/16 14:30 Dose: 20 mg Ferrous Sulfate (Feosol) 325 mg PO BID [facility] Last Admin: 10/20/16 23:25 Dose: Not Given Finasteride (Proscar) 5 mg PO DAILY [facility] Last Admin: 10/20/16 10:17 Dose: Not Given Fluticasone Propionate (Flonase) 2 spr EMMA DAILY [facility] Last Admin: 10/20/16 10:15 Dose: Not Given Heparin Sodium (Porcine) (Heparin) 5,000 units SC Q8 [facility] Last Admin: 10/21/16 06:01 Dose: 5,000 units Hydromorphone HCl (Dilaudid) 0.5 mg IVP Q6H PRN PRN Reason: Pain, moderate (4-7) Last Admin: 10/20/16 11:50 Dose: 0.5 mg Vancomycin/Sodium Chloride (Vancocin) 1 gm in 200 mls @ 133 mls/hr IVPB Q12H [facility] Stop: 10/23/16 15:31 Last Admin: 10/21/16 04:30 Dose: Not Given Meropenem 1 gm/ Sodium (Chloride) 100 mls @ 100 mls/hr IVPB Q8 [facility] Last Admin: 10/21/16 06:01 Dose: 100 mls/hr Dextrose/Sodium Chloride (Dextrose 5%/0.9% Ns 1000 Ml) 1,000 mls @ 100 mls/hr IV .Q10H [facility] Last Admin: 10/21/16 04:30 Dose: Not Given Insulin Human Regular (Novolin R) 0 unit SC ACHS [facility] PRN Reason: Protocol Last Admin: 10/20/16 23:25 Dose: Not Given Ketoconazole (Nizoral) 0 gm TOP DAILY [facility] Last Admin: 10/20/16 13:56 Dose: Not Given Metoprolol Tartrate (Lopressor) 25 mg PO BID@0900,2100 [facility] Last Admin: 10/20/16 23:25 Dose: Not Given Mirtazapine (Remeron) 30 mg PO HS [facility] Last Admin: 10/20/16 23:26 Dose: Not Given Ondansetron HCl (Zofran Inj) 4 mg IVP Q6 PRN PRN Reason: Nausea/Vomiting Last Admin: 10/21/16 01:01 Dose: 4 mg Rosuvastatin Calcium (Crestor) 10 mg PO HS [facility] Last Admin: 10/20/16 23:25 Dose: Not Given Tamsulosin HCl (Flomax) 0.4 mg PO DAILY [facility] Last Admin: 10/20/16 10:15 Dose: Not Given - Labs Labs: 10/21/16 06:38 10/21/16 06:36 PT 12.0 SECONDS (9.7-12.2) 10/18/16 02:06 INR 1.1 10/18/16 02:06 APTT 30 SECONDS (21-34) 10/18/16 02:06
[2016-10-21 08:26] LABS: NEUTROPHIL 82 % (50-75); TOTAL CELLS COUNTED 100
[2016-10-21 08:27] LABS: EOSINOPHIL 2 % (0-4)
--- NOTE | 2016-10-21 08:38 | CP.PCM.PN ---
Subjective - Date & Time of Evaluation Date of Evaluation: 10/21/16 Time of Evaluation: 07:00 - Subjective Subjective: VASCULAR SURGERY PROGRESS NOTE FOR DR. DENIS Patient was seen and examined at bedside. Overnight, patient was noted to having new onset of vomiting, 4-5x episodes since 20:00, resulting in approx. 800cc. of bilious fluid (as per RN). This morning, patient continues to feel nauseous with associated feelings of epigastric pain described as "indigestion" . Patient is otherwise in NAD. He continues to pass urine and BM (noted to be normal but dark in color). Denies signs of CP, SOB, constipation, diarrhea, leg pain or bleeding. No other complaints are noted at this time. Objective - Vital Signs/Intake and Output Vital Signs (last 24 hours): Temp Pulse Resp BP Pulse Ox 98.4 F 92 H 23 122/79 100 10/21/16 04:00 10/21/16 06:41 10/21/16 06:41 10/21/16 06:41 10/21/16 06:41 Intake and Output: 10/21/16 10/21/16 06:59 18:59 Intake Total 1200 Output Total 800 Balance 400 - Medications Medications: Current Medications Aspirin (Ecotrin) 81 mg PO DAILY [facility] Last Admin: 10/20/16 10:14 Dose: Not Given Clopidogrel Bisulfate (Plavix) 75 mg PO DAILY [facility] Last Admin: 10/20/16 10:17 Dose: Not Given Docusate Sodium (Colace) 100 mg PO BID [facility] Last Admin: 10/20/16 19:30 Dose: Not Given Duloxetine HCl (Cymbalta) 40 mg PO HS [facility] Last Admin: 10/20/16 23:25 Dose: Not Given Famotidine (Pepcid) 20 mg IVP DAILY [facility] Last Admin: 10/20/16 14:30 Dose: 20 mg Ferrous Sulfate (Feosol) 325 mg PO BID [facility] Last Admin: 10/20/16 23:25 Dose: Not Given Finasteride (Proscar) 5 mg PO DAILY [facility] Last Admin: 10/20/16 10:17 Dose: Not Given Fluticasone Propionate (Flonase) 2 spr EMMA DAILY [facility] Last Admin: 10/20/16 10:15 Dose: Not Given Heparin Sodium (Porcine) (Heparin) 5,000 units SC Q8 [facility] Last Admin: 10/21/16 06:01 Dose: 5,000 units Hydromorphone HCl (Dilaudid) 0.5 mg IVP Q6H PRN PRN Reason: Pain, moderate (4-7) Last Admin: 10/20/16 11:50 Dose: 0.5 mg Vancomycin/Sodium Chloride (Vancocin) 1 gm in 200 mls @ 133 mls/hr IVPB Q12H [facility] Stop: 10/23/16 15:31 Last Admin: 10/21/16 04:30 Dose: Not Given Meropenem 1 gm/ Sodium (Chloride) 100 mls @ 100 mls/hr IVPB Q8 [facility] Last Admin: 10/21/16 06:01 Dose: 100 mls/hr Dextrose/Sodium Chloride (Dextrose 5%/0.9% Ns 1000 Ml) 1,000 mls @ 100 mls/hr IV .Q10H [facility] Last Admin: 10/21/16 04:30 Dose: Not Given Insulin Human Regular (Novolin R) 0 unit SC ACHS [facility] PRN Reason: Protocol Last Admin: 10/21/16 08:23 Dose: Not Given Ketoconazole (Nizoral) 0 gm TOP DAILY [facility] Last Admin: 10/20/16 13:56 Dose: Not Given Metoprolol Tartrate (Lopressor) 25 mg PO BID@0900,2100 [facility] Last Admin: 10/20/16 23:25 Dose: Not Given Mirtazapine (Remeron) 30 mg PO HS [facility] Last Admin: 10/20/16 23:26 Dose: Not Given Ondansetron HCl (Zofran Inj) 4 mg IVP Q6 PRN PRN Reason: Nausea/Vomiting Last Admin: 10/21/16 01:01 Dose: 4 mg Rosuvastatin Calcium (Crestor) 10 mg PO HS [facility] Last Admin: 10/20/16 23:25 Dose: Not Given Tamsulosin HCl (Flomax) 0.4 mg PO DAILY [facility] Last Admin: 10/20/16 10:15 Dose: Not Given - Labs Labs: 10/21/16 06:38 10/21/16 06:36 PT 12.0 SECONDS (9.7-12.2) 10/18/16 02:06 INR 1.1 10/18/16 02:06 APTT 30 SECONDS (21-34) 10/18/16 02:06 - Constitutional Appears: Non-toxic, No Acute Distress, Unkempt - Head Exam Head Exam: ATRAUMATIC, NORMOCEPHALIC - ENT Exam ENT Exam: Mucous Membranes Dry - Respiratory Exam Respiratory Exam: Clear to Ausculation Bilateral, NORMAL BREATHING PATTERN - Cardiovascular Exam Cardiovascular Exam: Murmur (regular rate, (+) loud 4/6 holosystolic murmur heard in all [place] and in the upper abdomen ) - GI/Abdominal Exam GI & Abdominal Exam: Soft, Normal Bowel Sounds. absent: Distended, Firm, Tenderness, Mass, Organomegaly, Pulsatile Mass - Extremities Exam Extremities Exam: Full ROM. absent: Calf Tenderness, Joint Swelling, Pedal Edema Additional comments: R femoral incision site is C/D/I, sutures still in place. (+) Firm, non-tender hematoma felt in the R groin, with associated warmth. L femoral site remains bandaged. Palpable femoral and popliteal pulses b/l. PT pulses are palpable b/l , DP signals were heard on doppler L>R. - Neurological Exam Neurological Exam: Alert, Awake, Oriented x3 - Skin Skin Exam: Dry, Normal Color Assessment and Plan (1) Vomiting alone Assessment & Plan: - Patient had 4-5x episodes of bilious vomiting overnight - CT a/p today revealed cholelithiasis, chronic pancreatitis, duodenal distention w/ wall thickening and probable hematoma of the R groin - Lipase 122 yesterday - Plan for HIDA for assessment of any biliary pathology - Will consult GI for recs Status: Acute (2) Pseudoaneurysm of femoral artery Assessment & Plan: -Pt POD#3 for emergent endovascular repair of ruptured R common femoral pseudoaneurysm - Hematoma of the R groin noted on CT, continue to monitor - Vascular check today: L femoral site remains bandaged. Palpable femoral and popliteal pulses b/l. PT pulses are palpable b/l, DP signals were heard on doppler L>R. Will continue to monitor Status: Acute (3) Bacteremia Assessment & Plan: - WBC today 7.9 - One blood cx (+) E. coli. Other blood culture (-) at 48hr - ID on board Status: Acute
--- NOTE | 2016-10-21 09:30 | RAD ---
HISTORY: r/o infectious process COMPARISON: 09/20/2016 FINDINGS: LUNGS: No active pulmonary disease. PLEURA: No significant pleural effusion identified, no pneumothorax apparent. CARDIOVASCULAR: Normal. OSSEOUS STRUCTURES: Thoracic spondylosis VISUALIZED UPPER ABDOMEN: Normal. OTHER FINDINGS: None. IMPRESSION: No active disease.
--- NOTE | 2016-10-21 10:00 | CP.PCM.CON ---
History of Present Illness - History of Present Illness History of Present Illness: [facility] 70 [facility] male with h/o chronic alcoholic pancreatitis, had pancreatic surgery for drainage of pseudocyst 10 years ago. Admits to heavy alcohol abuse in the past but has been alcohol free for past ten years. Asked to evaluate for nausea and vomiting following a successful stent placement for a femoral pseudoaneurysm repair. Vascular findings are now normal per Dr Goode. Patient noted to have Gm negative bactermenia with E Coli and the source in unknown. CT SCan revealed gallstones but no dilated biliary ducts or fluid collection, no GB wall thickening. 4mm PD is noted with mild pancreatic enlargement c/w chronic but no acute pancreatitis. Lipase was initially normal as are his LFT's. Review of Systems - Cardiovascular Cardiovascular: absent: Chest Pain, Diaphoresis, Syncope - Respiratory Respiratory: absent: Cough, Dyspnea - Gastrointestinal Gastrointestinal: As Per HPI, Nausea, Vomiting. absent: Abdominal Pain, Constipation, Diarrhea, Melena Past Patient History - Infectious Disease Hx of Infectious Diseases: None - Past Medical History & Family History Past Medical History?: Yes - Past Social History Smoking Status: Heavy Smoker > 10 Cigarettes Daily Alcohol: Other (former alcohol abuse but none for 10 years) Drugs: Denies - CARDIAC Hx Heart Murmur: Yes Hx Hypertension: Yes - PULMONARY Hx Respiratory Disorders: No - NEUROLOGICAL Hx Syncope: Yes Hx Vertigo: Yes - HEENT Other/Comment: glasses for reading - RENAL Hx Chronic Kidney Disease: No - ENDOCRINE/METABOLIC Hx Endocrine Disorders: Yes Hx Diabetes Mellitus Type 2: Yes - HEMATOLOGICAL/ONCOLOGICAL Hx Blood Disorders: No Hx Anemia: Yes Hx Blood Transfusions: Yes Hx Blood Transfusion Reaction: No Hx Cirrhosis: No Hx Hepatitis A: No Hx Hepatitis B: No Hx Hepatitis C: No - INTEGUMENTARY Hx Dermatological Problems: No - MUSCULOSKELETAL/RHEUMATOLOGICAL Hx Falls: Yes - GASTROINTESTINAL Hx Bowel Surgery: No Hx Clostridium Difficile: No Hx Colitis: No Hx Colostomy: No Hx Constipation: No Hx Crohn's Disease: No Hx Diarrhea: No Hx Diverticulitis: No Hx Esophageal Varices: No Hx Fatty Liver Disease: No Hx Gall Bladder Disease: Yes Hx Gastritis: No Hx Gastroesophageal Reflux: No Hx Hemorrhoids: No Hx Ileostomy: No Hx Irritable Bowel: No Hx Liver Failure: No Hx Nausea: Yes Hx Pancreatitis: Yes HX Swallowing Problems: No Hx Ulcer: No Hx Vomiting: Yes - GENITOURINARY/GYNECOLOGICAL Hx Genitourinary Disorders: Yes Hx Prostate Problems: Yes (BPH) - PSYCHIATRIC Hx Depression: Yes Hx Substance Use: Yes - SURGICAL HISTORY Hx Carotid Endarterectomy: Yes (L [facility]A) - ANESTHESIA Hx Anesthesia: Yes Hx Anesthesia Reactions: No Hx Malignant Hyperthermia: No Meds Allergies/Adverse Reactions: Allergies Allergy/AdvReac Type Severity Reaction Status Date / Time No Known Allergies Allergy Verified 10/18/16 01:31 - Medications Medications: Current Medications Aspirin (Ecotrin) 81 mg PO DAILY [facility] Last Admin: 10/20/16 10:14 Dose: Not Given Clopidogrel Bisulfate (Plavix) 75 mg PO DAILY [facility] Last Admin: 10/20/16 10:17 Dose: Not Given Docusate Sodium (Colace) 100 mg PO BID [facility] Last Admin: 10/20/16 19:30 Dose: Not Given Duloxetine HCl (Cymbalta) 40 mg PO HS [facility] Last Admin: 10/20/16 23:25 Dose: Not Given Famotidine (Pepcid) 20 mg IVP DAILY [facility] Last Admin: 10/20/16 14:30 Dose: 20 mg Ferrous Sulfate (Feosol) 325 mg PO BID [facility] Last Admin: 10/20/16 23:25 Dose: Not Given Finasteride (Proscar) 5 mg PO DAILY [facility] Last Admin: 10/20/16 10:17 Dose: Not Given Fluticasone Propionate (Flonase) 2 spr EMMA DAILY [facility] Last Admin: 10/20/16 10:15 Dose: Not Given Heparin Sodium (Porcine) (Heparin) 5,000 units SC Q8 [facility] Last Admin: 10/21/16 06:01 Dose: 5,000 units Hydromorphone HCl (Dilaudid) 0.5 mg IVP Q6H PRN PRN Reason: Pain, moderate (4-7) Last Admin: 10/20/16 11:50 Dose: 0.5 mg Vancomycin/Sodium Chloride (Vancocin) 1 gm in 200 mls @ 133 mls/hr IVPB Q12H [facility] Stop: 10/23/16 15:31 Last Admin: 10/21/16 04:30 Dose: Not Given Meropenem 1 gm/ Sodium (Chloride) 100 mls @ 100 mls/hr IVPB Q8 [facility] Last Admin: 10/21/16 06:01 Dose: 100 mls/hr Dextrose/Sodium Chloride (Dextrose 5%/0.9% Ns 1000 Ml) 1,000 mls @ 100 mls/hr IV .Q10H [facility] Last Admin: 10/21/16 04:30 Dose: Not Given Insulin Human Regular (Novolin R) 0 unit SC ACHS [facility] PRN Reason: Protocol Last Admin: 10/21/16 08:23 Dose: Not Given Ketoconazole (Nizoral) 0 gm TOP DAILY [facility] Last Admin: 10/20/16 13:56 Dose: Not Given Metoprolol Tartrate (Lopressor) 25 mg PO BID@0900,2100 [facility] Last Admin: 10/20/16 23:25 Dose: Not Given Mirtazapine (Remeron) 30 mg PO [facility] Last Admin: 10/20/16 23:26 Dose: Not Given Ondansetron HCl (Zofran Inj) 4 mg IVP Q6 PRN PRN Reason: Nausea/Vomiting Last Admin: 10/21/16 01:01 Dose: 4 mg Rosuvastatin Calcium (Crestor) 10 mg PO [facility] Last Admin: 10/20/16 23:25 Dose: Not Given Tamsulosin HCl (Flomax) 0.4 mg PO DAILY [facility] Last Admin: 10/20/16 10:15 Dose: Not Given Physical Exam - Constitutional Appears: No Acute Distress - Head Exam Head Exam: ATRAUMATIC, NORMOCEPHALIC - Eye Exam Eye Exam: EOMI, PERRL - Respiratory Exam Respiratory Exam: NORMAL BREATHING PATTERN - Cardiovascular Exam Cardiovascular Exam: REGULAR RHYTHM, +S1 - GI/Abdominal Exam GI & Abdominal Exam: Normal Bowel Sounds, Soft. absent: Distended, Guarding, Mass, Organomegaly, Rebound, Tenderness Additional comments: midline scar - Rectal Exam Rectal Exam: Deferred - Extremities Exam Extremities exam: Positive for: normal inspection. Negative for: pedal edema - Neurological Exam Neurological exam: Alert, Oriented x3 - Psychiatric Exam Psychiatric exam: Normal Affect, Normal Mood - Skin Skin Exam: Dry, Warm Results - Vital Signs Recent Vital Signs: Last Vital Signs Temp 98.4 F 10/21/16 04:00 Pulse 84 10/21/16 08:00 Resp 11 L 10/21/16 08:00 BP 133/67 10/21/16 07:42 Pulse Ox 98 10/21/16 08:00 - Labs Result Diagrams: 10/22/16 06:04 10/22/16 06:04 Labs: Laboratory Results - last 24 hr 10/20/16 10/20/16 10/20/16 11:14 11:33 16:21 WBC 10.1 RBC 3.51 L Hgb 10.1 L Hct 31.2 L MCV 88.9 MCH 28.7 MCHC 32.3 L RDW 18.2 H Plt Count 121 L MPV 8.6 Neut % (Auto) 88.3 H Lymph % (Auto) 4.3 L [place] % (Auto) 5.9 Eos % (Auto) 0.9 Baso % (Auto) 0.6 Neut # 8.9 H Lymph # 0.4 L [place] # 0.6 Eos # 0.1 Baso # 0.1 Neutrophils % (Manual) 83 H Band Neutrophils % 7 H Lymphocytes % (Manual) 7 L Monocytes % (Manual) 1 Eosinophils % (Manual) 2 Platelet Estimate Slightly decreased L Hypochromasia (manual) Poikilocytosis (manual Slight Anisocytosis (manual) Slight Ovalocytes Slight [place] Cells Moderate Sodium Potassium Chloride Carbon Dioxide Anion Gap BUN Creatinine Est GFR ( Amer) Est GFR (Non-Af Amer) POC Glucose (mg/dL) 78 89 Random Glucose Lactic Acid Calcium Phosphorus Magnesium Total Bilirubin AST ALT Alkaline Phosphatase Total Protein Albumin Globulin Albumin/Globulin Ratio Lipase Vancomycin Trough 10/20/16 10/20/16 10/20/16 21:13 21:25 21:25 WBC 7.9 RBC 3.60 L Hgb 10.5 L Hct 31.0 L MCV 86.1 D MCH 29.1 MCHC 33.8 RDW 18.0 H Plt Count 135 MPV 7.8 Neut % (Auto) 84.4 H Lymph % (Auto) 7.9 L [place] % (Auto) 4.6 Eos % (Auto) 2.3 Baso % (Auto) 0.8 Neut # 6.7 Lymph # 0.6 L [place] # 0.4 Eos # 0.2 Baso # 0.1 Neutrophils % (Manual) 93 H Band Neutrophils % Lymphocytes % (Manual) 4 L Monocytes % (Manual) 2 Eosinophils % (Manual) 1 Platelet Estimate Normal Hypochromasia (manual) Slight Poikilocytosis (manual Anisocytosis (manual) Slight Ovalocytes Slight [place] Cells Sodium 143 Potassium 4.0 Chloride 101 Carbon Dioxide 28 Anion Gap 18 BUN 27 H Creatinine 1.7 H Est GFR ( Amer) 49 Est GFR (Non-Af Amer) 40 POC Glucose (mg/dL) 100 Random Glucose 99 Lactic Acid Calcium 8.9 Phosphorus Magnesium Total Bilirubin 0.5 AST 15 L D ALT 28 Alkaline Phosphatase 142 H Total Protein 6.8 Albumin 3.2 L Globulin 3.6 Albumin/Globulin Ratio 0.9 L Lipase 122 Vancomycin Trough 10/20/16 10/21/16 10/21/16 21:25 04:13 06:36 WBC RBC Hgb Hct MCV MCH MCHC RDW Plt Count MPV Neut % (Auto) Lymph % (Auto) [place] % (Auto) Eos % (Auto) Baso % (Auto) Neut # Lymph # [place] # Eos # Baso # Neutrophils % (Manual) Band Neutrophils % Lymphocytes % (Manual) Monocytes % (Manual) Eosinophils % (Manual) Platelet Estimate Hypochromasia (manual) Poikilocytosis (manual Anisocytosis (manual) Ovalocytes [place] Cells Sodium 144 Potassium 3.6 Chloride 97 L Carbon Dioxide 31 H Anion Gap 20 BUN 28 H Creatinine 1.6 H Est GFR ( Amer) 52 Est GFR (Non-Af Amer) 43 POC Glucose (mg/dL) Random Glucose 114 H Lactic Acid 0.7 Calcium 8.8 Phosphorus 4.2 Magnesium 2.0 Total Bilirubin 0.6 AST 17 ALT 22 Alkaline Phosphatase 148 H Total Protein 6.9 Albumin 3.2 L Globulin 3.7 Albumin/Globulin Ratio 0.9 L Lipase Vancomycin Trough 32.4 H 10/21/16 10/21/16 06:38 07:09 WBC 7.5 RBC 3.56 L Hgb 10.4 L Hct 30.7 L MCV 86.3 MCH 29.2 MCHC 33.9 RDW 17.7 H Plt Count 157 MPV 8.5 Neut % (Auto) 83.4 H Lymph % (Auto) 8.2 L [place] % (Auto) 5.2 Eos % (Auto) 2.6 Baso % (Auto) 0.6 Neut # 6.2 Lymph # 0.6 L [place] # 0.4 Eos # 0.2 Baso # 0.0 Neutrophils % (Manual) 82 H Band Neutrophils % Lymphocytes % (Manual) 11 L Monocytes % (Manual) 5 Eosinophils % (Manual) 2 Platelet Estimate Normal Hypochromasia (manual) Slight Poikilocytosis (manual Slight Anisocytosis (manual) Slight Ovalocytes [place] Cells Slight Sodium Potassium Chloride Carbon Dioxide Anion Gap BUN Creatinine Est GFR ( Amer) Est GFR (Non-Af Amer) POC Glucose (mg/dL) 147 H Random Glucose Lactic Acid Calcium Phosphorus Magnesium Total Bilirubin AST ALT Alkaline Phosphatase Total Protein Albumin Globulin Albumin/Globulin Ratio Lipase Vancomycin Trough - Imaging and Cardiology CT scan - abdomen Status: Image reviewed by me, Report reviewed by me Assessment & Plan (1) Nausea & vomiting Assessment and Plan: Patient with N/V s/p stent procedure for femoral pseudoaneuysm repair. Gallstones noted without clear indication of acute or chronic cholecystitis by CT Scan. Sono not done to assess GB wall and he is now in HIDA Scan which should give definitive answer on status of GB function. Symptoms are most likely related to his Gram negative bacteremia. CT and enzymes do not show any suggestion of acute pancreatitis. Unclear as to etiology of prior pancreatic disease (?Etoh, other??) CT shows some thickening of the duodenal wall that may warrant endoscopic visualization if symptoms persist. Await results of HIDA Scan Repeat liver and pancreatic enzymes Treatment and w/u for source of bacteremia Change Pepcid to IV Protonix Observe for now. Status: Acute (2) E coli bacteremia Assessment and Plan: as above. Source not defined as of now. Urinary, wound, biliary origin? Cont antibiotics Status: Acute (3) Chronic pancreatitis Assessment and Plan: On po enzyme replacement Will try to get more info from patient when done with scan Status: Chronic (4) Gallstones Status: Chronic
[2016-10-21] MEDS: LIPASE/PROTEASE/AMYLASE 4,200 U ECC PO SCH ×5 (10:12→16:20)
[2016-10-21] MEDS: Fluticasone Nasal 50 mcg/Spray NAS SCH (10:23)
[2016-10-21] MEDS: HYDROmorphone 0.5 mg/0.5 ml ISec IVP PRN ×3 (12:09→22:34)
[2016-10-21] MEDS: Potassium Chloride 20 mEq ER Tab PO SCH (12:35)
--- NOTE | 2016-10-21 13:04 | CP.CCUPN ---
<Ford Carrera - Last Filed: 10/21/16 13:46> CCU Subjective - Physician Review Events Since Last Encounter (Free Text): CCM Chart reviewed. Pt examined. discussed with housestaff. Pt admits some nausea at times Alert, nad NEck- no jvd lungs- bilat bs Heart-rr aBd- bs+, soft, no localized tenderness Ext-warm,groin wound clean and dry Labs reviewed A&P s/p R Pseudoaneurysm repair Gram neg Bacteremia STEVEN ?Duodenitis Chronic Pancreatitis DM HTN Hx CEA BPH cont meds and AB f/u culture ID and sensitivities GI eval antiemetic Increase IV fluid maintain optimal lytes f/u labs DVT prophylaxis 10/21/16 13:31 10/21/16 13:47 CCU Objective - Vital Signs / Intake & Output Vital Signs (Last 4 hours): Vital Signs Pulse Resp BP Pulse Ox 10/21/16 10:00 86 12 97 10/21/16 09:42 89 15 168/78 H 96 Intake and Output (Last 8hrs): Intake & Output 10/20/16 10/21/16 10/21/16 22:59 06:59 14:59 Intake Total 965 800 450 Output Total 1500 500 650 Balance -535 300 -200 Weight 147 lb Intake: Intake, IV Amount 825 800 450 Left Forearm 825 800 450 Oral 140 0 Output: Urine 300 500 650 Urine, Voided 300 500 650 Stool 0 Emesis 1200 0 - Medications Active Medications: Active Medications Generic Name Dose Route Start Last Admin Trade Name Freq PRN Reason Stop Dose Admin Aspirin 81 mg 10/19/16 10:00 10/21/16 10:23 Ecotrin PO Not Given DAILY [facility] Clopidogrel Bisulfate 75 mg 10/19/16 10:00 10/21/16 10:23 Plavix PO Not Given DAILY [facility] Docusate Sodium 100 mg 10/18/16 18:00 10/21/16 10:22 Colace PO Not Given BID [facility] Duloxetine HCl 40 mg 10/18/16 22:00 10/20/16 23:25 Cymbalta PO Not Given HS [facility] Famotidine 20 mg 10/21/16 10:15 10/21/16 10:23 Pepcid IVP Not Given BID [facility] Ferrous Sulfate 325 mg 10/18/16 18:00 10/21/16 10:23 Feosol PO Not Given BID [facility] Finasteride 5 mg 10/19/16 10:00 10/21/16 10:23 Proscar PO Not Given DAILY [facility] Fluticasone Propionate 2 spr 10/19/16 10:00 10/21/16 10:23 Flonase EMMA Not Given DAILY [facility] Heparin Sodium (Porcine) 5,000 units 10/18/16 22:00 10/21/16 06:01 Heparin SC 5,000 units Q8 [facility] Administration Hydromorphone HCl 0.5 mg 10/20/16 10:40 10/21/16 12:09 Dilaudid IVP 0.5 mg Q6H PRN Administration Pain, moderate (4-7) Vancomycin/Sodium Chloride 1 gm in 200 mls @ 133 mls/hr 10/18/16 15:30 04:30 Vancocin IVPB 10/23/16 15:31 Not Given Q12H [facility] Meropenem 1 gm/ Sodium 100 mls @ 100 mls/hr 10/20/16 14:00 10/21/16 06:01 Chloride IVPB 100 mls/hr Q8 [facility] Administration Dextrose/Sodium Chloride 1,000 mls @ 150 mls/hr 10/21/16 11:31 10/21/16 12:22 Dextrose 5%/0.9% Ns 1000 Ml IV 150 mls/hr .Q6H40M [facility] Administration Insulin Human Regular 0 unit 10/19/16 22:00 10/21/16 12:35 Novolin R SC Not Given ACHS [facility] Protocol Ketoconazole 0 gm 10/19/16 10:00 10/21/16 10:23 Nizoral TOP Not Given DAILY [facility] Metoprolol Tartrate 25 mg 10/18/16 21:00 10/21/16 10:22 Lopressor PO Not Given BID@0900,2100 [facility] Mirtazapine 30 mg 10/18/16 22:00 10/20/16 23:26 Remeron PO Not Given HS [facility] Ondansetron HCl 4 mg 10/20/16 09:06 10/21/16 12:17 Zofran Inj IVP 4 mg Q6 PRN Administration Nausea/Vomiting Potassium Chloride 40 meq 10/21/16 12:00 10/21/16 12:35 K-Dur 20 Meq Er Tab PO 40 meq DAILY [facility] Administration Rosuvastatin Calcium 10 mg 10/18/16 22:00 10/20/16 23:25 Crestor PO Not Given HS [facility] Tamsulosin HCl 0.4 mg 10/19/16 10:00 10/21/16 10:23 Flomax PO Not Given DAILY [facility] - Patient Studies Lab Studies: Microbiology Studies 10/18/16 15:00 Blood Culture - Final Blood-Venous Escherichia Coli Gram Stain - Final 10/18/16 Unknown MRSA Culture (Admit) - Final Nose MRSA NOT DETECTED Lab Studies 10/21/16 10/21/16 10/21/16 Range/Units 11:55 07:09 06:38 WBC 7.5 (4.8-10.8) K/uL RBC 3.56 L (4.40-5.90) Mil/uL Hgb 10.4 L (12.0-18.0) g/dL Hct 30.7 L (35.0-51.0) % MCV 86.3 (80.0-94.0) fL MCH 29.2 (27.0-31.0) pg MCHC 33.9 (33.0-37.0) g/dL RDW 17.7 H (11.5-14.5) % Plt Count 157 (130-400) K/uL MPV 8.5 (7.2-11.7) fL Neut % (Auto) 83.4 H (50.0-75.0) % Lymph % (Auto) 8.2 L (20.0-40.0) % [place] % (Auto) 5.2 (0.0-10.0) % Eos % (Auto) 2.6 (0.0-4.0) % Baso % (Auto) 0.6 (0.0-2.0) % Neut # 6.2 (1.8-7.0) K/uL Lymph # 0.6 L (1.0-4.3) K/uL [place] # 0.4 (0.0-0.8) K/uL Eos # 0.2 (0.0-0.7) K/uL Baso # 0.0 (0.0-0.2) K/uL Neutrophils % (Manual) 82 H (50-75) % Lymphocytes % (Manual) 11 L (20-40) % Monocytes % (Manual) 5 (0-10) % Eosinophils % (Manual) 2 (0-4) % Platelet Estimate Normal (NORMAL) Hypochromasia (manual) Slight Poikilocytosis (manual Slight Anisocytosis (manual) Slight Ovalocytes [place] Cells Slight Sodium (132-148) mmol/L Potassium (3.6-5.2) mmol/L Chloride (98-107) mmol/L Carbon Dioxide (22-30) mmol/L Anion Gap (10-20) BUN (9-20) mg/dL Creatinine (0.8-1.5) MG/DL Est GFR ( Amer) Est GFR (Non-Af Amer) POC Glucose (mg/dL) 245 H 147 H (65-110) mg/dL Random Glucose (75-110) mg/dL Lactic Acid (0.7-2.1) mmol/L Calcium (8.6-10.4) mg/dl Phosphorus (2.5-4.5) mg/dL Magnesium (1.6-2.3) mg/dL Total Bilirubin (0.2-1.3) mg/dL AST (17-59) U/L ALT (21-72) U/L Alkaline Phosphatase (38-126) U/L Total Protein (6.3-8.3) g/dL Albumin (3.5-5.0) g/dL Globulin (2.2-3.9) gm/dL Albumin/Globulin Ratio (1.0-2.1) Lipase (23-300) U/L Vancomycin Trough (5.0-10.0) ug/mL 10/21/16 10/21/16 10/20/16 Range/Units 06:36 04:13 21:25 WBC (4.8-10.8) K/uL RBC (4.40-5.90) Mil/uL Hgb (12.0-18.0) g/dL Hct (35.0-51.0) % MCV (80.0-94.0) fL MCH (27.0-31.0) pg MCHC (33.0-37.0) g/dL RDW (11.5-14.5) % Plt Count (130-400) K/uL MPV (7.2-11.7) fL Neut % (Auto) (50.0-75.0) % Lymph % (Auto) (20.0-40.0) % [place] % (Auto) (0.0-10.0) % Eos % (Auto) (0.0-4.0) % Baso % (Auto) (0.0-2.0) % Neut # (1.8-7.0) K/uL Lymph # (1.0-4.3) K/uL [place] # (0.0-0.8) K/uL Eos # (0.0-0.7) K/uL Baso # (0.0-0.2) K/uL Neutrophils % (Manual) (50-75) % Lymphocytes % (Manual) (20-40) % Monocytes % (Manual) (0-10) % Eosinophils % (Manual) (0-4) % Platelet Estimate (NORMAL) Hypochromasia (manual) Poikilocytosis (manual Anisocytosis (manual) Ovalocytes [place] Cells Sodium 144 (132-148) mmol/L Potassium 3.6 (3.6-5.2) mmol/L Chloride 97 L (98-107) mmol/L Carbon Dioxide 31 H (22-30) mmol/L Anion Gap 20 (10-20) BUN 28 H (9-20) mg/dL Creatinine 1.6 H (0.8-1.5) MG/DL Est GFR ( Amer) 52 Est GFR (Non-Af Amer) 43 POC Glucose (mg/dL) (65-110) mg/dL Random Glucose 114 H (75-110) mg/dL Lactic Acid 0.7 (0.7-2.1) mmol/L Calcium 8.8 (8.6-10.4) mg/dl Phosphorus 4.2 (2.5-4.5) mg/dL Magnesium 2.0 (1.6-2.3) mg/dL Total Bilirubin 0.6 (0.2-1.3) mg/dL AST 17 (17-59) U/L ALT 22 (21-72) U/L Alkaline Phosphatase 148 H (38-126) U/L Total Protein 6.9 (6.3-8.3) g/dL Albumin 3.2 L (3.5-5.0) g/dL Globulin 3.7 (2.2-3.9) gm/dL Albumin/Globulin Ratio 0.9 L (1.0-2.1) Lipase (23-300) U/L Vancomycin Trough 32.4 H (5.0-10.0) ug/mL 10/20/16 10/20/16 10/20/16 Range/Units 21:25 21:25 21:13 WBC 7.9 (4.8-10.8) K/uL RBC 3.60 L (4.40-5.90) Mil/uL Hgb 10.5 L (12.0-18.0) g/dL Hct 31.0 L (35.0-51.0) % MCV 86.1 D (80.0-94.0) fL MCH 29.1 (27.0-31.0) pg MCHC 33.8 (33.0-37.0) g/dL RDW 18.0 H (11.5-14.5) % Plt Count 135 (130-400) K/uL MPV 7.8 (7.2-11.7) fL Neut % (Auto) 84.4 H (50.0-75.0) % Lymph % (Auto) 7.9 L (20.0-40.0) % [place] % (Auto) 4.6 (0.0-10.0) % Eos % (Auto) 2.3 (0.0-4.0) % Baso % (Auto) 0.8 (0.0-2.0) % Neut # 6.7 (1.8-7.0) K/uL Lymph # 0.6 L (1.0-4.3) K/uL [place] # 0.4 (0.0-0.8) K/uL Eos # 0.2 (0.0-0.7) K/uL Baso # 0.1 (0.0-0.2) K/uL Neutrophils % (Manual) 93 H (50-75) % Lymphocytes % (Manual) 4 L (20-40) % Monocytes % (Manual) 2 (0-10) % Eosinophils % (Manual) 1 (0-4) % Platelet Estimate Normal (NORMAL) Hypochromasia (manual) Slight Poikilocytosis (manual Anisocytosis (manual) Slight Ovalocytes Slight [place] Cells Sodium 143 (132-148) mmol/L Potassium 4.0 (3.6-5.2) mmol/L Chloride 101 (98-107) mmol/L Carbon Dioxide 28 (22-30) mmol/L Anion Gap 18 (10-20) BUN 27 H (9-20) mg/dL Creatinine 1.7 H (0.8-1.5) MG/DL Est GFR ( Amer) 49 Est GFR (Non-Af Amer) 40 POC Glucose (mg/dL) 100 (65-110) mg/dL Random Glucose 99 (75-110) mg/dL Lactic Acid (0.7-2.1) mmol/L Calcium 8.9 (8.6-10.4) mg/dl Phosphorus (2.5-4.5) mg/dL Magnesium (1.6-2.3) mg/dL Total Bilirubin 0.5 (0.2-1.3) mg/dL AST 15 L D (17-59) U/L ALT 28 (21-72) U/L Alkaline Phosphatase 142 H (38-126) U/L Total Protein 6.8 (6.3-8.3) g/dL Albumin 3.2 L (3.5-5.0) g/dL Globulin 3.6 (2.2-3.9) gm/dL Albumin/Globulin Ratio 0.9 L (1.0-2.1) Lipase 122 (23-300) U/L Vancomycin Trough (5.0-10.0) ug/mL 10/20/16 Range/Units 16:21 WBC (4.8-10.8) K/uL RBC (4.40-5.90) Mil/uL Hgb (12.0-18.0) g/dL Hct (35.0-51.0) % MCV (80.0-94.0) fL MCH (27.0-31.0) pg MCHC (33.0-37.0) g/dL RDW (11.5-14.5) % Plt Count (130-400) K/uL MPV (7.2-11.7) fL Neut % (Auto) (50.0-75.0) % Lymph % (Auto) (20.0-40.0) % [place] % (Auto) (0.0-10.0) % Eos % (Auto) (0.0-4.0) % Baso % (Auto) (0.0-2.0) % Neut # (1.8-7.0) K/uL Lymph # (1.0-4.3) K/uL [place] # (0.0-0.8) K/uL Eos # (0.0-0.7) K/uL Baso # (0.0-0.2) K/uL Neutrophils % (Manual) (50-75) % Lymphocytes % (Manual) (20-40) % Monocytes % (Manual) (0-10) % Eosinophils % (Manual) (0-4) % Platelet Estimate (NORMAL) Hypochromasia (manual) Poikilocytosis (manual Anisocytosis (manual) Ovalocytes [place] Cells Sodium (132-148) mmol/L Potassium (3.6-5.2) mmol/L Chloride (98-107) mmol/L Carbon Dioxide (22-30) mmol/L Anion Gap (10-20) BUN (9-20) mg/dL Creatinine (0.8-1.5) MG/DL Est GFR ( Amer) Est GFR (Non-Af Amer) POC Glucose (mg/dL) 89 (65-110) mg/dL Random Glucose (75-110) mg/dL Lactic Acid (0.7-2.1) mmol/L Calcium (8.6-10.4) mg/dl Phosphorus (2.5-4.5) mg/dL Magnesium (1.6-2.3) mg/dL Total Bilirubin (0.2-1.3) mg/dL AST (17-59) U/L ALT (21-72) U/L Alkaline Phosphatase (38-126) U/L Total Protein (6.3-8.3) g/dL Albumin (3.5-5.0) g/dL Globulin (2.2-3.9) gm/dL Albumin/Globulin Ratio (1.0-2.1) Lipase (23-300) U/L Vancomycin Trough (5.0-10.0) ug/mL Laboratory Results - last 24 hr 10/20/16 10/20/16 10/20/16 16:21 21:13 21:25 WBC 7.9 RBC 3.60 L Hgb 10.5 L Hct 31.0 L MCV 86.1 D MCH 29.1 MCHC 33.8 RDW 18.0 H Plt Count 135 MPV 7.8 Neut % (Auto) 84.4 H Lymph % (Auto) 7.9 L [place] % (Auto) 4.6 Eos % (Auto) 2.3 Baso % (Auto) 0.8 Neut # 6.7 Lymph # 0.6 L [place] # 0.4 Eos # 0.2 Baso # 0.1 Neutrophils % (Manual) 93 H Lymphocytes % (Manual) 4 L Monocytes % (Manual) 2 Eosinophils % (Manual) 1 Platelet Estimate Normal Hypochromasia (manual) Slight Poikilocytosis (manual Anisocytosis (manual) Slight Ovalocytes Slight [place] Cells Sodium Potassium Chloride Carbon Dioxide Anion Gap BUN Creatinine Est GFR ( Amer) Est GFR (Non-Af Amer) POC Glucose (mg/dL) 89 100 Random Glucose Lactic Acid Calcium Phosphorus Magnesium Total Bilirubin AST ALT Alkaline Phosphatase Total Protein Albumin Globulin Albumin/Globulin Ratio Lipase Vancomycin Trough 10/20/16 10/20/16 10/21/16 21:25 21:25 04:13 WBC RBC Hgb Hct MCV MCH MCHC RDW Plt Count MPV Neut % (Auto) Lymph % (Auto) [place] % (Auto) Eos % (Auto) Baso % (Auto) Neut # Lymph # [place] # Eos # Baso # Neutrophils % (Manual) Lymphocytes % (Manual) Monocytes % (Manual) Eosinophils % (Manual) Platelet Estimate Hypochromasia (manual) Poikilocytosis (manual Anisocytosis (manual) Ovalocytes [place] Cells Sodium 143 Potassium 4.0 Chloride 101 Carbon Dioxide 28 Anion Gap 18 BUN 27 H Creatinine 1.7 H Est GFR ( Amer) 49 Est GFR (Non-Af Amer) 40 POC Glucose (mg/dL) Random Glucose 99 Lactic Acid 0.7 Calcium 8.9 Phosphorus Magnesium Total Bilirubin 0.5 AST 15 L D ALT 28 Alkaline Phosphatase 142 H Total Protein 6.8 Albumin 3.2 L Globulin 3.6 Albumin/Globulin Ratio 0.9 L Lipase 122 Vancomycin Trough 32.4 H 10/21/16 10/21/16 10/21/16 06:36 06:38 07:09 WBC 7.5 RBC 3.56 L Hgb 10.4 L Hct 30.7 L MCV 86.3 MCH 29.2 MCHC 33.9 RDW 17.7 H Plt Count 157 MPV 8.5 Neut % (Auto) 83.4 H Lymph % (Auto) 8.2 L [place] % (Auto) 5.2 Eos % (Auto) 2.6 Baso % (Auto) 0.6 Neut # 6.2 Lymph # 0.6 L [place] # 0.4 Eos # 0.2 Baso # 0.0 Neutrophils % (Manual) 82 H Lymphocytes % (Manual) 11 L Monocytes % (Manual) 5 Eosinophils % (Manual) 2 Platelet Estimate Normal Hypochromasia (manual) Slight Poikilocytosis (manual Slight Anisocytosis (manual) Slight Ovalocytes [place] Cells Slight Sodium 144 Potassium 3.6 Chloride 97 L Carbon Dioxide 31 H Anion Gap 20 BUN 28 H Creatinine 1.6 H Est GFR ( Amer) 52 Est GFR (Non-Af Amer) 43 POC Glucose (mg/dL) 147 H Random Glucose 114 H Lactic Acid Calcium 8.8 Phosphorus 4.2 Magnesium 2.0 Total Bilirubin 0.6 AST 17 ALT 22 Alkaline Phosphatase 148 H Total Protein 6.9 Albumin 3.2 L Globulin 3.7 Albumin/Globulin Ratio 0.9 L Lipase Vancomycin Trough 10/21/16 11:55 WBC RBC Hgb Hct MCV MCH MCHC RDW Plt Count MPV Neut % (Auto) Lymph % (Auto) [place] % (Auto) Eos % (Auto) Baso % (Auto) Neut # Lymph # [place] # Eos # Baso # Neutrophils % (Manual) Lymphocytes % (Manual) Monocytes % (Manual) Eosinophils % (Manual) Platelet Estimate Hypochromasia (manual) Poikilocytosis (manual Anisocytosis (manual) Ovalocytes [place] Cells Sodium Potassium Chloride Carbon Dioxide Anion Gap BUN Creatinine Est GFR ( Amer) Est GFR (Non-Af Amer) POC Glucose (mg/dL) 245 H Random Glucose Lactic Acid Calcium Phosphorus Magnesium Total Bilirubin AST ALT Alkaline Phosphatase Total Protein Albumin Globulin Albumin/Globulin Ratio Lipase Vancomycin Trough Critical Care Progress Note - Nutrition Nutrition: Nutrition Category Date Time Status NPO Diet [DIET] Diets 10/20/16 Breakfast Active <Oscar Martin - Last Filed: 10/21/16 14:42> CCU Subjective - Physician Review Subjective (Free Text): Patient was seen and examined at bedside. Patient with multiple episodes of 0.5- 1 liter coffee ground emesis since yesterday morning, also with production of bilious fluid as per nurse. This morning, patient states he feel nauseous with bloating, but denies emesis - states last episode was yesterday evening. He continues to pass urine and BM and is able to get out of bed to chair. No other complaints are noted at this time. Denies signs of CP, SOB, constipation, diarrhea, leg pain or bleeding. 10/21/16 12:58 CCU Objective - Vital Signs / Intake & Output Vital Signs (Last 4 hours): Vital Signs Pulse Resp BP Pulse Ox 10/21/16 10:00 86 12 97 10/21/16 09:42 89 15 168/78 H 96 10/21/16 09:00 90 17 99 Intake and Output (Last 8hrs): Intake & Output 10/20/16 10/21/16 10/21/16 22:59 06:59 14:59 Intake Total 965 800 450 Output Total 1500 500 650 Balance -535 300 -200 Weight 147 lb Intake: Intake, IV Amount 825 800 450 Left Forearm 825 800 450 Oral 140 0 Output: Urine 300 500 650 Urine, Voided 300 500 650 Stool 0 Emesis 1200 0 - Physical Exam Head: Positive for: Normocephalic Pupils: Positive for: PERRL Extroacular Muscles: Positive for: EOMI Conjunctiva: Positive for: Normal Mouth: Positive for: Moist Mucous Membranes Neck: Positive for: Normal Range of Motion Respiratory/Chest: Positive for: Clear to Auscultation Cardiovascular: Positive for: Regular Rate and Rhythm, Murmurs (holosystolic murmur heard in all [place]), Normal S1, S2 Abdomen: Positive for: Normal Bowel Sounds. Negative for: Tenderness, Distention Upper Extremity: Positive for: Normal Inspection Lower Extremity: Positive for: NORMAL PULSES, Other (R femoral incision site is C/D/I, sutures still in place. L femoral site remains bandaged. PT/DP pulses are palpable b/l) Neurological: Positive for: Speech Normal Skin: Positive for: Warm, Dry, Normal Color Psychiatric: Positive for: Alert, Oriented x 3, Normal Mood - Medications Active Medications: Active Medications Generic Name Dose Route Start Last Admin Trade Name Freq PRN Reason Stop Dose Admin Aspirin 81 mg 10/19/16 10:00 10/21/16 10:23 Ecotrin PO Not Given DAILY [facility] Clopidogrel Bisulfate 75 mg 10/19/16 10:00 10/21/16 10:23 Plavix PO Not Given DAILY [facility] Docusate Sodium 100 mg 10/18/16 18:00 10/21/16 10:22 Colace PO Not Given BID [facility] Duloxetine HCl 40 mg 10/18/16 22:00 10/20/16 23:25 Cymbalta PO Not Given HS [facility] Famotidine 20 mg 10/21/16 10:15 10/21/16 10:23 Pepcid IVP Not Given BID [facility] Ferrous Sulfate 325 mg 10/18/16 18:00 10/21/16 10:23 Feosol PO Not Given BID [facility] Finasteride 5 mg 10/19/16 10:00 10/21/16 10:23 Proscar PO Not Given DAILY [facility] Fluticasone Propionate 2 spr 10/19/16 10:00 10/21/16 10:23 Flonase EMMA Not Given DAILY [facility] Heparin Sodium (Porcine) 5,000 units 10/18/16 22:00 10/21/16 06:01 Heparin SC 5,000 units Q8 [facility] Administration Hydromorphone HCl 0.5 mg 10/20/16 10:40 10/21/16 12:09 Dilaudid IVP 0.5 mg Q6H PRN Administration Pain, moderate (4-7) Vancomycin/Sodium Chloride 1 gm in 200 mls @ 133 mls/hr 10/18/16 15:30 04:30 Vancocin IVPB 10/23/16 15:31 Not Given Q12H [facility] Meropenem 1 gm/ Sodium 100 mls @ 100 mls/hr 10/20/16 14:00 10/21/16 06:01 Chloride IVPB 100 mls/hr Q8 [facility] Administration Dextrose/Sodium Chloride 1,000 mls @ 150 mls/hr 10/21/16 11:31 10/21/16 12:22 Dextrose 5%/0.9% Ns 1000 Ml IV 150 mls/hr .Q6H40M [facility] Administration Insulin Human Regular 0 unit 10/19/16 22:00 10/21/16 12:35 Novolin R SC Not Given ACHS [facility] Protocol Ketoconazole 0 gm 10/19/16 10:00 10/21/16 10:23 Nizoral TOP Not Given DAILY [facility] Metoprolol Tartrate 25 mg 10/18/16 21:00 10/21/16 10:22 Lopressor PO Not Given BID@0900,2100 [facility] Mirtazapine 30 mg 10/18/16 22:00 10/20/16 23:26 Remeron PO Not Given HS [facility] Ondansetron HCl 4 mg 10/20/16 09:06 10/21/16 12:17 Zofran Inj IVP 4 mg Q6 PRN Administration Nausea/Vomiting Potassium Chloride 40 meq 10/21/16 12:00 10/21/16 12:35 K-Dur 20 Meq Er Tab PO 40 meq DAILY [facility] Administration Rosuvastatin Calcium 10 mg 10/18/16 22:00 10/20/16 23:25 Crestor PO Not Given HS [facility] Tamsulosin HCl 0.4 mg 10/19/16 10:00 10/21/16 10:23 Flomax PO Not Given DAILY [facility] - Patient Studies Lab Studies: Microbiology Studies 10/18/16 15:00 Blood Culture - Final Blood-Venous Escherichia Coli Gram Stain - Final 10/18/16 Unknown MRSA Culture (Admit) - Final Nose MRSA NOT DETECTED Lab Studies 10/21/16 10/21/16 10/21/16 Range/Units 11:55 07:09 06:38 WBC 7.5 (4.8-10.8) K/uL RBC 3.56 L (4.40-5.90) Mil/uL Hgb 10.4 L (12.0-18.0) g/dL Hct 30.7 L (35.0-51.0) % MCV 86.3 (80.0-94.0) fL MCH 29.2 (27.0-31.0) pg MCHC 33.9 (33.0-37.0) g/dL RDW 17.7 H (11.5-14.5) % Plt Count 157 (130-400) K/uL MPV 8.5 (7.2-11.7) fL Neut % (Auto) 83.4 H (50.0-75.0) % Lymph % (Auto) 8.2 L (20.0-40.0) % [place] % (Auto) 5.2 (0.0-10.0) % Eos % (Auto) 2.6 (0.0-4.0) % Baso % (Auto) 0.6 (0.0-2.0) % Neut # 6.2 (1.8-7.0) K/uL Lymph # 0.6 L (1.0-4.3) K/uL [place] # 0.4 (0.0-0.8) K/uL Eos # 0.2 (0.0-0.7) K/uL Baso # 0.0 (0.0-0.2) K/uL Neutrophils % (Manual) 82 H (50-75) % Lymphocytes % (Manual) 11 L (20-40) % Monocytes % (Manual) 5 (0-10) % Eosinophils % (Manual) 2 (0-4) % Platelet Estimate Normal (NORMAL) Hypochromasia (manual) Slight Poikilocytosis (manual Slight Anisocytosis (manual) Slight Ovalocytes [place] Cells Slight Sodium (132-148) mmol/L Potassium (3.6-5.2) mmol/L Chloride (98-107) mmol/L Carbon Dioxide (22-30) mmol/L Anion Gap (10-20) BUN (9-20) mg/dL Creatinine (0.8-1.5) MG/DL Est GFR ( Amer) Est GFR (Non-Af Amer) POC Glucose (mg/dL) 245 H 147 H (65-110) mg/dL Random Glucose (75-110) mg/dL Lactic Acid (0.7-2.1) mmol/L Calcium (8.6-10.4) mg/dl Phosphorus (2.5-4.5) mg/dL Magnesium (1.6-2.3) mg/dL Total Bilirubin (0.2-1.3) mg/dL AST (17-59) U/L ALT (21-72) U/L Alkaline Phosphatase (38-126) U/L Total Protein (6.3-8.3) g/dL Albumin (3.5-5.0) g/dL Globulin (2.2-3.9) gm/dL Albumin/Globulin Ratio (1.0-2.1) Lipase (23-300) U/L Vancomycin Trough (5.0-10.0) ug/mL 10/21/16 10/21/16 10/20/16 Range/Units 06:36 04:13 21:25 WBC (4.8-10.8) K/uL RBC (4.40-5.90) Mil/uL Hgb (12.0-18.0) g/dL Hct (35.0-51.0) % MCV (80.0-94.0) fL MCH (27.0-31.0) pg MCHC (33.0-37.0) g/dL RDW (11.5-14.5) % Plt Count (130-400) K/uL MPV (7.2-11.7) fL Neut % (Auto) (50.0-75.0) % Lymph % (Auto) (20.0-40.0) % [place] % (Auto) (0.0-10.0) % Eos % (Auto) (0.0-4.0) % Baso % (Auto) (0.0-2.0) % Neut # (1.8-7.0) K/uL Lymph # (1.0-4.3) K/uL [place] # (0.0-0.8) K/uL Eos # (0.0-0.7) K/uL Baso # (0.0-0.2) K/uL Neutrophils % (Manual) (50-75) % Lymphocytes % (Manual) (20-40) % Monocytes % (Manual) (0-10) % Eosinophils % (Manual) (0-4) % Platelet Estimate (NORMAL) Hypochromasia (manual) Poikilocytosis (manual Anisocytosis (manual) Ovalocytes [place] Cells Sodium 144 (132-148) mmol/L Potassium 3.6 (3.6-5.2) mmol/L Chloride 97 L (98-107) mmol/L Carbon Dioxide 31 H (22-30) mmol/L Anion Gap 20 (10-20) BUN 28 H (9-20) mg/dL Creatinine 1.6 H (0.8-1.5) MG/DL Est GFR ( Amer) 52 Est GFR (Non-Af Amer) 43 POC Glucose (mg/dL) (65-110) mg/dL Random Glucose 114 H (75-110) mg/dL Lactic Acid 0.7 (0.7-2.1) mmol/L Calcium 8.8 (8.6-10.4) mg/dl Phosphorus 4.2 (2.5-4.5) mg/dL Magnesium 2.0 (1.6-2.3) mg/dL Total Bilirubin 0.6 (0.2-1.3) mg/dL AST 17 (17-59) U/L ALT 22 (21-72) U/L Alkaline Phosphatase 148 H (38-126) U/L Total Protein 6.9 (6.3-8.3) g/dL Albumin 3.2 L (3.5-5.0) g/dL Globulin 3.7 (2.2-3.9) gm/dL Albumin/Globulin Ratio 0.9 L (1.0-2.1) Lipase (23-300) U/L Vancomycin Trough 32.4 H (5.0-10.0) ug/mL 10/20/16 10/20/16 10/20/16 Range/Units 21:25 21:25 21:13 WBC 7.9 (4.8-10.8) K/uL RBC 3.60 L (4.40-5.90) Mil/uL Hgb 10.5 L (12.0-18.0) g/dL Hct 31.0 L (35.0-51.0) % MCV 86.1 D (80.0-94.0) fL MCH 29.1 (27.0-31.0) pg MCHC 33.8 (33.0-37.0) g/dL RDW 18.0 H (11.5-14.5) % Plt Count 135 (130-400) K/uL MPV 7.8 (7.2-11.7) fL Neut % (Auto) 84.4 H (50.0-75.0) % Lymph % (Auto) 7.9 L (20.0-40.0) % [place] % (Auto) 4.6 (0.0-10.0) % Eos % (Auto) 2.3 (0.0-4.0) % Baso % (Auto) 0.8 (0.0-2.0) % Neut # 6.7 (1.8-7.0) K/uL Lymph # 0.6 L (1.0-4.3) K/uL [place] # 0.4 (0.0-0.8) K/uL Eos # 0.2 (0.0-0.7) K/uL Baso # 0.1 (0.0-0.2) K/uL Neutrophils % (Manual) 93 H (50-75) % Lymphocytes % (Manual) 4 L (20-40) % Monocytes % (Manual) 2 (0-10) % Eosinophils % (Manual) 1 (0-4) % Platelet Estimate Normal (NORMAL) Hypochromasia (manual) Slight Poikilocytosis (manual Anisocytosis (manual) Slight Ovalocytes Slight [place] Cells Sodium 143 (132-148) mmol/L Potassium 4.0 (3.6-5.2) mmol/L Chloride 101 (98-107) mmol/L Carbon Dioxide 28 (22-30) mmol/L Anion Gap 18 (10-20) BUN 27 H (9-20) mg/dL Creatinine 1.7 H (0.8-1.5) MG/DL Est GFR ( Amer) 49 Est GFR (Non-Af Amer) 40 POC Glucose (mg/dL) 100 (65-110) mg/dL Random Glucose 99 (75-110) mg/dL Lactic Acid (0.7-2.1) mmol/L Calcium 8.9 (8.6-10.4) mg/dl Phosphorus (2.5-4.5) mg/dL Magnesium (1.6-2.3) mg/dL Total Bilirubin 0.5 (0.2-1.3) mg/dL AST 15 L D (17-59) U/L ALT 28 (21-72) U/L Alkaline Phosphatase 142 H (38-126) U/L Total Protein 6.8 (6.3-8.3) g/dL Albumin 3.2 L (3.5-5.0) g/dL Globulin 3.6 (2.2-3.9) gm/dL Albumin/Globulin Ratio 0.9 L (1.0-2.1) Lipase 122 (23-300) U/L Vancomycin Trough (5.0-10.0) ug/mL 10/20/16 Range/Units 16:21 WBC (4.8-10.8) K/uL RBC (4.40-5.90) Mil/uL Hgb (12.0-18.0) g/dL Hct (35.0-51.0) % MCV (80.0-94.0) fL MCH (27.0-31.0) pg MCHC (33.0-37.0) g/dL RDW (11.5-14.5) % Plt Count (130-400) K/uL MPV (7.2-11.7) fL Neut % (Auto) (50.0-75.0) % Lymph % (Auto) (20.0-40.0) % [place] % (Auto) (0.0-10.0) % Eos % (Auto) (0.0-4.0) % Baso % (Auto) (0.0-2.0) % Neut # (1.8-7.0) K/uL Lymph # (1.0-4.3) K/uL [place] # (0.0-0.8) K/uL Eos # (0.0-0.7) K/uL Baso # (0.0-0.2) K/uL Neutrophils % (Manual) (50-75) % Lymphocytes % (Manual) (20-40) % Monocytes % (Manual) (0-10) % Eosinophils % (Manual) (0-4) % Platelet Estimate (NORMAL) Hypochromasia (manual) Poikilocytosis (manual Anisocytosis (manual) Ovalocytes [place] Cells Sodium (132-148) mmol/L Potassium (3.6-5.2) mmol/L Chloride (98-107) mmol/L Carbon Dioxide (22-30) mmol/L Anion Gap (10-20) BUN (9-20) mg/dL Creatinine (0.8-1.5) MG/DL Est GFR ( Amer) Est GFR (Non-Af Amer) POC Glucose (mg/dL) 89 (65-110) mg/dL Random Glucose (75-110) mg/dL Lactic Acid (0.7-2.1) mmol/L Calcium (8.6-10.4) mg/dl Phosphorus (2.5-4.5) mg/dL Magnesium (1.6-2.3) mg/dL Total Bilirubin (0.2-1.3) mg/dL AST (17-59) U/L ALT (21-72) U/L Alkaline Phosphatase (38-126) U/L Total Protein (6.3-8.3) g/dL Albumin (3.5-5.0) g/dL Globulin (2.2-3.9) gm/dL Albumin/Globulin Ratio (1.0-2.1) Lipase (23-300) U/L Vancomycin Trough (5.0-10.0) ug/mL Laboratory Results - last 24 hr 10/20/16 10/20/16 10/20/16 16:21 21:13 21:25 WBC 7.9 RBC 3.60 L Hgb 10.5 L Hct 31.0 L MCV 86.1 D MCH 29.1 MCHC 33.8 RDW 18.0 H Plt Count 135 MPV 7.8 Neut % (Auto) 84.4 H Lymph % (Auto) 7.9 L [place] % (Auto) 4.6 Eos % (Auto) 2.3 Baso % (Auto) 0.8 Neut # 6.7 Lymph # 0.6 L [place] # 0.4 Eos # 0.2 Baso # 0.1 Neutrophils % (Manual) 93 H Lymphocytes % (Manual) 4 L Monocytes % (Manual) 2 Eosinophils % (Manual) 1 Platelet Estimate Normal Hypochromasia (manual) Slight Poikilocytosis (manual Anisocytosis (manual) Slight Ovalocytes Slight [place] Cells Sodium Potassium Chloride Carbon Dioxide Anion Gap BUN Creatinine Est GFR ( Amer) Est GFR (Non-Af Amer) POC Glucose (mg/dL) 89 100 Random Glucose Lactic Acid Calcium Phosphorus Magnesium Total Bilirubin AST ALT Alkaline Phosphatase Total Protein Albumin Globulin Albumin/Globulin Ratio Lipase Vancomycin Trough 10/20/16 10/20/16 10/21/16 21:25 21:25 04:13 WBC RBC Hgb Hct MCV MCH MCHC RDW Plt Count MPV Neut % (Auto) Lymph % (Auto) [place] % (Auto) Eos % (Auto) Baso % (Auto) Neut # Lymph # [place] # Eos # Baso # Neutrophils % (Manual) Lymphocytes % (Manual) Monocytes % (Manual) Eosinophils % (Manual) Platelet Estimate Hypochromasia (manual) Poikilocytosis (manual Anisocytosis (manual) Ovalocytes [place] Cells Sodium 143 Potassium 4.0 Chloride 101 Carbon Dioxide 28 Anion Gap 18 BUN 27 H Creatinine 1.7 H Est GFR ( Amer) 49 Est GFR (Non-Af Amer) 40 POC Glucose (mg/dL) Random Glucose 99 Lactic Acid 0.7 Calcium 8.9 Phosphorus Magnesium Total Bilirubin 0.5 AST 15 L D ALT 28 Alkaline Phosphatase 142 H Total Protein 6.8 Albumin 3.2 L Globulin 3.6 Albumin/Globulin Ratio 0.9 L Lipase 122 Vancomycin Trough 32.4 H 10/21/16 10/21/16 10/21/16 06:36 06:38 07:09 WBC 7.5 RBC 3.56 L Hgb 10.4 L Hct 30.7 L MCV 86.3 MCH 29.2 MCHC 33.9 RDW 17.7 H Plt Count 157 MPV 8.5 Neut % (Auto) 83.4 H Lymph % (Auto) 8.2 L [place] % (Auto) 5.2 Eos % (Auto) 2.6 Baso % (Auto) 0.6 Neut # 6.2 Lymph # 0.6 L [place] # 0.4 Eos # 0.2 Baso # 0.0 Neutrophils % (Manual) 82 H Lymphocytes % (Manual) 11 L Monocytes % (Manual) 5 Eosinophils % (Manual) 2 Platelet Estimate Normal Hypochromasia (manual) Slight Poikilocytosis (manual Slight Anisocytosis (manual) Slight Ovalocytes [place] Cells Slight Sodium 144 Potassium 3.6 Chloride 97 L Carbon Dioxide 31 H Anion Gap 20 BUN 28 H Creatinine 1.6 H Est GFR ( Amer) 52 Est GFR (Non-Af Amer) 43 POC Glucose (mg/dL) 147 H Random Glucose 114 H Lactic Acid Calcium 8.8 Phosphorus 4.2 Magnesium 2.0 Total Bilirubin 0.6 AST 17 ALT 22 Alkaline Phosphatase 148 H Total Protein 6.9 Albumin 3.2 L Globulin 3.7 Albumin/Globulin Ratio 0.9 L Lipase Vancomycin Trough 10/21/16 11:55 WBC RBC Hgb Hct MCV MCH MCHC RDW Plt Count MPV Neut % (Auto) Lymph % (Auto) [place] % (Auto) Eos % (Auto) Baso % (Auto) Neut # Lymph # [place] # Eos # Baso # Neutrophils % (Manual) Lymphocytes % (Manual) Monocytes % (Manual) Eosinophils % (Manual) Platelet Estimate Hypochromasia (manual) Poikilocytosis (manual Anisocytosis (manual) Ovalocytes [place] Cells Sodium Potassium Chloride Carbon Dioxide Anion Gap BUN Creatinine Est GFR ( Amer) Est GFR (Non-Af Amer) POC Glucose (mg/dL) 245 H Random Glucose Lactic Acid Calcium Phosphorus Magnesium Total Bilirubin AST ALT Alkaline Phosphatase Total Protein Albumin Globulin Albumin/Globulin Ratio Lipase Vancomycin Trough Fingerstick Blood Sugar Results: 146 Review of Systems - Constitutional Constitutional: absent: Fever, Chills - Cardiovascular Cardiovascular: absent: Chest Pain - Respiratory Respiratory: absent: Cough, Dyspnea, Wheezing - Gastrointestinal Gastrointestinal: Bloating. absent: Constipation, Diarrhea - Genitourinary Genitourinary: absent: Change in Urinary Stream - Musculoskeletal Musculoskeletal: absent: Joint Swelling, Muscle Weakness, Tingling Critical Care Progress Note - Nutrition Nutrition: Nutrition Category Date Time Status NPO Diet [DIET] Diets 10/20/16 Breakfast Active Assessment/Plan - Assessment and Plan (Free Text) Assessment: Patient is a 70-year-old male with past medical history of PAD, hypertension, carotid stenosis, pancreatic lesion who recently underwent a right femoral endarterectomy, and suddenly developed swelling, pain, tingling in the right lower extremity, along with increasing swelling over the right groin with the significant pain. 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 Patient underwent a surgical intervention, a stent was placed and patient was transferred to ICU for further management. Patient now with n/v s/p stent procedure and also gram negative bacteremia with E Coli with unknown source. Neuro: Hx of depression -duloxetine 40mg po hs -mirtazipine 30mg po hs Pulm: -flonase -incentive spirometry CV: Hx of CAD, HTN, right femoral endarterectomy, carotid endarterectomy, cardiac cath - Cardiology consulted- Dr. Elliott, help appreciated - Vascular surgery consulted, Dr Lorenzo - Hematoma of the R groin noted on CT, continue to monitor - stopped norvasc 10mg po daily due to low BP - aspirin 81 po dialy - plavix 75mg po daily - lopressor 25mg po bid - crestor 10mg po hs - Fluids - Dextrose 5%/0.9% NS at 150cc/hr Endo: Hx of DM - episode of hypoglycemia 10/20 - glucose 21 on poc, d50 50ml given and glucose level responded to wnl - stopped glipizide 2.5mg po acbd; stopped insulin levemir 36 units po hs - Accuchecks, monitor blood glucose - Continue novolin 0 units achs GI: nausea, vomiting - await results of HIDA scan for assessment of any biliary pathology - CT Abd/Pelvis revealed cholelithiasis, chronic pancreatitis, duodenal distention w/ wall thickening and probable hematoma of the R groin - GI, Dr Duque, consulted - NPO - Zofran 4mg ivp q6 prn - pepcid 20mg bid iv - colace 100mg po bid Heme: - Hgb 10.4 - platelets 157 - ferrous sulfate 325mg po bid Renal: Hx of BPH - finasteride 5mg po daily - flomax 0.4mg po daily MSK: pain in right lower extremity - dilaudid 0.5mg q4 prn for moderate to severe pain - discontinued percocet ID: blood culture with gram negative rods - wbc 7.9 - UA ordered, F/U - cefepime 1gm iv q12 - ketoconazole topical - vancomycin 1g iv q12 - infectious disease, Dr Herrera, consulted Prophylaxis: - DVT: heparin 5000u sc q8 - GI: pepcid iv q12 - PT treat and eval - out of bed to chair
[2016-10-21] MEDS ORDERED: HYDROmorphone 0.5 mg/0.5 ml ISec IVP STA (14:20)
--- NOTE | 2016-10-21 16:43 | NM ---
PROCEDURE: Nuclear Medicine Hepatobiliary Scan LOCAL HISTORY: cholelithiasis COMPARISON: None available. TECHNIQUE: 5.1 mCi of technetium 99m Mebrofenin was administered intravenously. Planar images of the abdomen were obtained at 5 min intervals to 60 mins. Delayed images were also obtained. FINDINGS: LIVER: Timely and homogenous uptake. COMMON BILE DUCT: identified at 25 mins. GALLBLADDER: NOT IDENTIFIED. SMALL BOWEL: Identified at 30 mins. IMPRESSION: Examination consistent with obstructed cystic duct. No demonstration of gallbladder up to 3 hours post administration.
--- NOTE | 2016-10-21 22:13 | CP.PCM.PN ---
Subjective - Date & Time of Evaluation Date of Evaluation: 10/21/16 Time of Evaluation: 13:00 - Subjective Subjective: Patient seen and evaluated Gram negative bacteremia Denies chest pain and dyspnea Objective - Vital Signs/Intake and Output Vital Signs (last 24 hours): Temp Pulse Resp BP Pulse Ox 98.8 F 80 9 L 148/71 98 10/21/16 16:00 10/21/16 19:00 10/21/16 19:00 10/21/16 18:41 10/21/16 19:00 Intake and Output: 10/21/16 10/22/16 18:59 06:59 Intake Total 1650 150 Output Total 1700 Balance -50 150 - Medications Medications: Current Medications Aspirin (Ecotrin) 81 mg PO DAILY [facility] Last Admin: 10/21/16 10:23 Dose: Not Given Clopidogrel Bisulfate (Plavix) 75 mg PO DAILY [facility] Last Admin: 10/21/16 10:23 Dose: Not Given Docusate Sodium (Colace) 100 mg PO BID [facility] Last Admin: 10/21/16 17:37 Dose: Not Given Duloxetine HCl (Cymbalta) 40 mg PO HS [facility] Last Admin: 10/20/16 23:25 Dose: Not Given Famotidine (Pepcid) 20 mg IVP BID [facility] Last Admin: 10/21/16 18:18 Dose: 20 mg Ferrous Sulfate (Feosol) 325 mg PO BID [facility] Last Admin: 10/21/16 17:38 Dose: Not Given Finasteride (Proscar) 5 mg PO DAILY [facility] Last Admin: 10/21/16 10:23 Dose: Not Given Fluticasone Propionate (Flonase) 2 spr [facility] DAILY [facility] Last Admin: 10/21/16 10:23 Dose: Not Given Hydromorphone HCl (Dilaudid) 0.5 mg IVP Q4H PRN PRN Reason: Pain, moderate (4-7) Last Admin: 10/21/16 17:42 Dose: 0.5 mg Vancomycin/Sodium Chloride (Vancocin) 1 gm in 200 mls @ 133 mls/hr IVPB Q12H [facility] Stop: 10/23/16 15:31 Last Admin: 10/21/16 04:30 Dose: Not Given Meropenem 1 gm/ Sodium (Chloride) 100 mls @ 100 mls/hr IVPB Q8 [facility] Last Admin: 10/21/16 14:18 Dose: 100 mls/hr Dextrose/Sodium Chloride (Dextrose 5%/0.9% Ns 1000 Ml) 1,000 mls @ 150 mls/hr IV .Q6H40M [facility] Last Admin: 10/21/16 17:36 Dose: 150 mls/hr Insulin Human Regular (Novolin R) 0 unit SC ACHS [facility] PRN Reason: Protocol Last Admin: 10/21/16 16:20 Dose: Not Given Ketoconazole (Nizoral) 0 gm TOP DAILY [facility] Last Admin: 10/21/16 10:23 Dose: Not Given Metoprolol Tartrate (Lopressor) 25 mg PO BID@0900,2100 [facility] Last Admin: 10/21/16 10:22 Dose: Not Given Mirtazapine (Remeron) 30 mg PO HS [facility] Last Admin: 10/20/16 23:26 Dose: Not Given Ondansetron HCl (Zofran Inj) 4 mg IVP Q6 PRN PRN Reason: Nausea/Vomiting Last Admin: 10/21/16 12:17 Dose: 4 mg Potassium Chloride (K-Dur 20 Meq Er Tab) 40 meq PO DAILY [facility] Last Admin: 10/21/16 12:35 Dose: 40 meq Rosuvastatin Calcium (Crestor) 10 mg PO HS [facility] Last Admin: 10/20/16 23:25 Dose: Not Given Tamsulosin HCl (Flomax) 0.4 mg PO DAILY [facility] Last Admin: 10/21/16 10:23 Dose: Not Given - Labs Labs: 10/21/16 06:38 10/21/16 06:36 PT 12.0 SECONDS (9.7-12.2) 10/18/16 02:06 INR 1.1 10/18/16 02:06 APTT 30 SECONDS (21-34) 10/18/16 02:06 - Head Exam Head Exam: ATRAUMATIC, NORMAL INSPECTION - Eye Exam Eye Exam: EOMI Pupil Exam: NORMAL ACCOMODATION - ENT Exam ENT Exam: Mucous Membranes Moist, Normal Exam - Neck Exam Neck Exam: Full ROM, Normal Inspection - Respiratory Exam Respiratory Exam: Clear to Ausculation Bilateral - Cardiovascular Exam Cardiovascular Exam: REGULAR RHYTHM, +S1, +S2 - GI/Abdominal Exam GI & Abdominal Exam: Soft, Normal Bowel Sounds - Extremities Exam Extremities Exam: Full ROM - Neurological Exam Neurological Exam: Alert, Awake, CN II-XII Intact - Skin Skin Exam: Warm Assessment and Plan - Assessment and Plan (Free Text) Assessment: 1. bacteremia 2. S/P [employer] stent placement 3. CAD 4. PAD
[2016-10-22] MEDS: Dextrose 5%/0.9% NS 1,000 ML IV SCH ×3 (02:00→14:24)
[2016-10-22] MEDS: Meropenem 1 GM in Sodium Chloride 0.9% 100 ML IVPB SCH ×2 (05:03→16:06)
[2016-10-22 06:14] LABS: BASO # 0.1 K/uL (0.0-0.2); BASO % 1.2 % (0.0-2.0); EOS # 0.4 K/uL (0.0-0.7); EOS % 8.2 % (0.0-4.0); HEMATOCRIT 29.5 % (35.0-51.0); LYMPH # 0.8 K/uL (1.0-4.3); LYMPH % 17.7 % (20.0-40.0); MEAN CELL VOLUME 87.2 fL (80.0-94.0); MEAN CORPUSCULAR HEMOGLOBIN 28.6 pg (27.0-31.0); MEAN CORPUSCULAR HGB CONC 32.8 g/dL (33.0-37.0); MEAN PLATELET VOLUME 7.9 fL (7.2-11.7); MONO # 0.4 K/uL (0.0-0.8); MONO % 7.9 % (0.0-10.0); RED CELL DISTRIBUTION WIDTH 17.5 % (11.5-14.5); WHITE BLOOD COUNT 4.6 K/uL (4.8-10.8)
[2016-10-22 06:24] LABS: CHLORIDE 104 mmol/L (98-107); POTASSIUM 4.2 mmol/L (3.6-5.2); SODIUM 141 mmol/L (132-148)
[2016-10-22 06:26] LABS: ALB/GLOB RATIO 0.8 (1.0-2.1); ALKALINE PHOSPHATASE 113 U/L (38-126); AMYLASE 53 U/L (30-110); AST/SGOT 13 U/L (17-59); BILIRUBIN,DIRECT 0.5 mg/dL (0.0-0.4); BILIRUBIN,TOTAL 0.5 mg/dL (0.2-1.3); BLOOD UREA NITROGEN 19 mg/dL (9-20); CARBON DIOXIDE 25 mmol/L (22-30); GFR AFRICAN-AMERICAN > 60; GLUCOSE,RANDOM 258 mg/dL (75-110); TOTAL PROTEIN 6.2 g/dL (6.3-8.3)
[2016-10-22 06:27] LABS: ALT/SGPT 23 U/L (21-72); CALCIUM 8.2 mg/dl (8.6-10.4); MAGNESIUM 1.9 mg/dL (1.6-2.3); PHOSPHOROUS 2.8 mg/dL (2.5-4.5)
[2016-10-22] MEDS: (Novolin R) Insulin Human Regular 100 units/ml vial SC SCH ×4 (07:42→21:44)
--- NOTE | 2016-10-22 09:26 | CP.PCM.PN ---
Subjective - Date & Time of Evaluation Date of Evaluation: 10/22/16 Time of Evaluation: 07:30 - Subjective Subjective: SURGERY NOTE FOR DR. DENIS 70M seen and examined at bedside. Patient states his pain is well controlled in the RUQ. Denies nausea, vomiting, fevers, chills overnight. Denies pain in the leg. Objective - Vital Signs/Intake and Output Vital Signs (last 24 hours): Temp Pulse Resp BP Pulse Ox 98.0 F 62 15 165/62 H 97 10/22/16 04:00 10/22/16 05:43 10/22/16 05:43 10/22/16 05:43 10/22/16 05:43 Intake and Output: 10/22/16 10/22/16 06:59 18:59 Intake Total 1900 Output Total 600 Balance 1300 - Medications Medications: Current Medications Aspirin (Ecotrin) 81 mg PO DAILY [facility] Last Admin: 10/21/16 10:23 Dose: Not Given Clopidogrel Bisulfate (Plavix) 75 mg PO DAILY [facility] Last Admin: 10/21/16 10:23 Dose: Not Given Docusate Sodium (Colace) 100 mg PO BID [facility] Last Admin: 10/21/16 17:37 Dose: Not Given Duloxetine HCl (Cymbalta) 40 mg PO HS [facility] Last Admin: 10/21/16 22:30 Dose: 40 mg Famotidine (Pepcid) 20 mg IVP BID [facility] Last Admin: 10/21/16 18:18 Dose: 20 mg Ferrous Sulfate (Feosol) 325 mg PO BID [facility] Last Admin: 10/21/16 17:38 Dose: Not Given Finasteride (Proscar) 5 mg PO DAILY [facility] Last Admin: 10/21/16 10:23 Dose: Not Given Fluticasone Propionate (Flonase) 2 spr [facility] DAILY [facility] Last Admin: 10/21/16 10:23 Dose: Not Given Hydromorphone HCl (Dilaudid) 0.5 mg IVP Q4H PRN PRN Reason: Pain, moderate (4-7) Last Admin: 10/21/16 22:34 Dose: 0.5 mg Vancomycin/Sodium Chloride (Vancocin) 1 gm in 200 mls @ 133 mls/hr IVPB Q12H [facility] Stop: 10/23/16 15:31 Last Admin: 10/21/16 04:30 Dose: Not Given Meropenem 1 gm/ Sodium (Chloride) 100 mls @ 100 mls/hr IVPB Q8 [facility] Last Admin: 10/22/16 05:03 Dose: 100 mls/hr Dextrose/Sodium Chloride (Dextrose 5%/0.9% Ns 1000 Ml) 1,000 mls @ 150 mls/hr IV .Q6H40M [facility] Last Admin: 10/22/16 02:00 Dose: 150 mls/hr Insulin Human Regular (Novolin R) 0 unit SC ACHS [facility] PRN Reason: Protocol Last Admin: 10/22/16 07:42 Dose: Not Given Ketoconazole (Nizoral) 0 gm TOP DAILY [facility] Last Admin: 10/21/16 10:23 Dose: Not Given Metoprolol Tartrate (Lopressor) 25 mg PO BID@0900,2100 [facility] Last Admin: 10/21/16 22:28 Dose: 25 mg Mirtazapine (Remeron) 30 mg PO HS [facility] Last Admin: 10/21/16 22:30 Dose: 30 mg Ondansetron HCl (Zofran Inj) 4 mg IVP Q6 PRN PRN Reason: Nausea/Vomiting Last Admin: 10/21/16 22:29 Dose: 4 mg Potassium Chloride (K-Dur 20 Meq Er Tab) 40 meq PO DAILY [facility] Last Admin: 10/21/16 12:35 Dose: 40 meq Rosuvastatin Calcium (Crestor) 10 mg PO HS [facility] Last Admin: 10/21/16 22:28 Dose: 10 mg Tamsulosin HCl (Flomax) 0.4 mg PO DAILY [facility] Last Admin: 10/21/16 10:23 Dose: Not Given - Labs Labs: 10/22/16 06:04 10/22/16 06:04 PT 12.0 SECONDS (9.7-12.2) 10/18/16 02:06 INR 1.1 10/18/16 02:06 APTT 30 SECONDS (21-34) 10/18/16 02:06 - Constitutional Appears: Non-toxic, No Acute Distress - Respiratory Exam Respiratory Exam: Clear to Ausculation Bilateral, NORMAL BREATHING PATTERN - Cardiovascular Exam Cardiovascular Exam: REGULAR RHYTHM, +S1, +S2 - GI/Abdominal Exam GI & Abdominal Exam: Soft, Tenderness (RUQ mild tenderness). absent: Distended , Firm, Guarding, Rigid, Rebound - Extremities Exam Additional comments: doppler signals b/l LE - Neurological Exam Neurological Exam: Alert, Awake Assessment and Plan - Assessment and Plan (Free Text) Assessment: 70M s/p perc endovascular repair of ruptured femoral artery pseudoaneurysm POD4 , now with RUQ, positve HIDA, hx of chronic pancreatitis HIDA: shows obstructed cystic duct - continue to monitor LE pulse - pt will need cholecystectomy for cholecystitis - f/u GI recs, poss EUS/ERCP 2/2 Further recs discuss with Dr. Maura Severino, PGY2
[2016-10-22] MEDS: LIPASE/PROTEASE/AMYLASE 4,200 U ECC PO SCH ×3 (09:41→16:06)
[2016-10-22] MEDS: Potassium Chloride 20 mEq ER Tab PO SCH (09:42)
[2016-10-22] MEDS: Fluticasone Nasal 50 mcg/Spray NAS SCH (09:42)
--- NOTE | 2016-10-22 10:53 | CP.PCM.PN ---
Subjective - Date & Time of Evaluation Date of Evaluation: 10/22/16 Time of Evaluation: 10:50 - Subjective Subjective: No further N/V, HIDA Scan positive for cystic duct obstruction at 3 hours LFT's, Amylase and Lipase remain normal Objective - Vital Signs/Intake and Output Vital Signs (last 24 hours): Temp Pulse Resp BP Pulse Ox 98.0 F 62 15 160/71 H 97 10/22/16 04:00 10/22/16 05:43 10/22/16 05:43 10/22/16 09:41 10/22/16 05:43 Intake and Output: 10/22/16 10/22/16 06:59 18:59 Intake Total 1900 Output Total 600 Balance 1300 - Medications Medications: Current Medications Aspirin (Ecotrin) 81 mg PO DAILY [facility] Last Admin: 10/22/16 09:41 Dose: 81 mg Clopidogrel Bisulfate (Plavix) 75 mg PO DAILY [facility] Last Admin: 10/22/16 09:41 Dose: 75 mg Docusate Sodium (Colace) 100 mg PO BID [facility] Last Admin: 10/22/16 09:41 Dose: 100 mg Duloxetine HCl (Cymbalta) 40 mg PO HS [facility] Last Admin: 10/21/16 22:30 Dose: 40 mg Famotidine (Pepcid) 20 mg IVP BID [facility] Last Admin: 10/22/16 09:42 Dose: 20 mg Ferrous Sulfate (Feosol) 325 mg PO BID [facility] Last Admin: 10/22/16 09:42 Dose: 325 mg Finasteride (Proscar) 5 mg PO DAILY [facility] Last Admin: 10/22/16 09:42 Dose: 5 mg Fluticasone Propionate (Flonase) 2 spr [facility] DAILY [facility] Last Admin: 10/22/16 09:42 Dose: Not Given Hydromorphone HCl (Dilaudid) 0.5 mg IVP Q4H PRN PRN Reason: Pain, moderate (4-7) Last Admin: 10/21/16 22:34 Dose: 0.5 mg Vancomycin/Sodium Chloride (Vancocin) 1 gm in 200 mls @ 133 mls/hr IVPB Q12H [facility] Stop: 10/23/16 15:31 Last Admin: 10/21/16 04:30 Dose: Not Given Meropenem 1 gm/ Sodium (Chloride) 100 mls @ 100 mls/hr IVPB Q8 [facility] Last Admin: 10/22/16 05:03 Dose: 100 mls/hr Dextrose/Sodium Chloride (Dextrose 5%/0.9% Ns 1000 Ml) 1,000 mls @ 150 mls/hr IV .Q6H40M [facility] Last Admin: 10/22/16 09:40 Dose: Not Given Insulin Human Regular (Novolin R) 0 unit SC ACHS [facility] PRN Reason: Protocol Last Admin: 10/22/16 07:42 Dose: Not Given Ketoconazole (Nizoral) 0 gm TOP DAILY [facility] Last Admin: 10/22/16 09:43 Dose: Not Given Metoprolol Tartrate (Lopressor) 25 mg PO BID@0900,2100 [facility] Last Admin: 10/22/16 09:41 Dose: 25 mg Mirtazapine (Remeron) 30 mg PO HS [facility] Last Admin: 10/21/16 22:30 Dose: 30 mg Ondansetron HCl (Zofran Inj) 4 mg IVP Q6 PRN PRN Reason: Nausea/Vomiting Last Admin: 10/21/16 22:29 Dose: 4 mg Potassium Chloride (K-Dur 20 Meq Er Tab) 40 meq PO DAILY [facility] Last Admin: 10/22/16 09:42 Dose: 40 meq Rosuvastatin Calcium (Crestor) 10 mg PO HS [facility] Last Admin: 10/21/16 22:28 Dose: 10 mg Tamsulosin HCl (Flomax) 0.4 mg PO DAILY [facility] Last Admin: 10/22/16 09:42 Dose: 0.4 mg - Labs Labs: 10/22/16 06:04 10/22/16 06:04 PT 12.0 SECONDS (9.7-12.2) 10/18/16 02:06 INR 1.1 10/18/16 02:06 APTT 30 SECONDS (21-34) 10/18/16 02:06 - Constitutional Appears: No Acute Distress - Head Exam Head Exam: ATRAUMATIC, NORMOCEPHALIC - Eye Exam Eye Exam: EOMI, PERRL - Respiratory Exam Respiratory Exam: NORMAL BREATHING PATTERN - Cardiovascular Exam Cardiovascular Exam: REGULAR RHYTHM, +S1 - GI/Abdominal Exam GI & Abdominal Exam: Soft, Normal Bowel Sounds. absent: Distended, Tenderness, Organomegaly, Rebound - Extremities Exam Extremities Exam: Normal Inspection Assessment and Plan (1) Nausea & vomiting Assessment & Plan: May be due to E Coli Sepsis syndrome now on antibiotic therapy, Though HIDA positive he is pain free and now asymptomatic. Likely reflects chronic calculous cholecystitis. Nausea improved when narcotics reduced as well. Advance diet as tolerated Surgical reevaluation for possible elective Lap Na at some point in time. Status: Acute (2) E coli bacteremia Assessment & Plan: as per medical team, antibiotics Status: Acute (3) Chronic pancreatitis Assessment & Plan: Changes appear chronic and stable and no signs of acute on chronic pancreatitis Do not see need for EUS/ERCP or MRCP at this time. Does not add to his management in any way at present. Status: Chronic (4) Gallstones Assessment & Plan: + HIDA likely chronic cholecytitis Status: Chronic (5) Chronic cholecystitis due to gallbladder calculus with obstruction Assessment & Plan: No acute symptoms at present. Doubt source of N/V as these symptoms have resolved Advance diet and observe Surgical evaluation for elective Lap Na at some point in time or for recurrence of symptoms or pain. Status: Acute
--- NOTE | 2016-10-22 11:37 | CP.CCUPN ---
<MarioOscar Nilesh - Last Filed: 10/22/16 12:40> CCU Subjective - Physician Review Subjective (Free Text): Patient was seen and examined at bedside. N/V have resolved. Patient denies abdominal pain. No other complaints are noted at this time. Denies signs of CP, SOB, constipation, diarrhea, leg pain or bleeding. 10/22/16 11:35 CCU Objective - Vital Signs / Intake & Output Vital Signs (Last 4 hours): Vital Signs BP 10/22/16 09:41 160/71 H Intake and Output (Last 8hrs): Intake & Output 10/21/16 10/22/16 10/22/16 22:59 06:59 14:59 Intake Total 1200 1300 Output Total 1050 400 Balance 150 900 Weight 145 lb Intake: Intake, IV Amount 1200 1300 Left Antecubital 100 Left Forearm 1200 1200 Output: Urine 1050 400 Urine, Voided 1050 400 Stool 0 Emesis 0 - Physical Exam Head: Positive for: Normocephalic Pupils: Positive for: PERRL Extroacular Muscles: Positive for: EOMI Conjunctiva: Positive for: Normal Mouth: Positive for: Moist Mucous Membranes Neck: Positive for: Normal Range of Motion Respiratory/Chest: Positive for: Clear to Auscultation Cardiovascular: Positive for: Regular Rate and Rhythm, Murmurs (holosystolic murmur heard in all stephen[place]), Normal S1, S2 Abdomen: Positive for: Normal Bowel Sounds. Negative for: Tenderness, Distention Upper Extremity: Positive for: Normal Inspection Lower Extremity: Positive for: NORMAL PULSES, Other (R femoral incision site is C/D/I, sutures still in place. L femoral site remains bandaged. PT/DP pulses are palpable b/l) Neurological: Positive for: Speech Normal Skin: Positive for: Warm, Dry, Normal Color Psychiatric: Positive for: Alert, Oriented x 3, Normal Mood - Medications Active Medications: Active Medications Generic Name Dose Route Start Last Admin Trade Name Kmq PRN Reason Stop Dose Admin Aspirin 81 mg 10/19/16 10:00 10/22/16 09:41 Ecotrin PO 81 mg DAILY [facility] Administration Clopidogrel Bisulfate 75 mg 10/19/16 10:00 10/22/16 09:41 Plavix PO 75 mg DAILY [facility] Administration Docusate Sodium 100 mg 10/18/16 18:00 10/22/16 09:41 Colace PO 100 mg BID [facility] Administration Duloxetine HCl 40 mg 10/18/16 22:00 10/21/16 22:30 Cymbalta PO 40 mg HS [facility] Administration Famotidine 20 mg 10/21/16 10:15 10/22/16 09:42 Pepcid IVP 20 mg BID [facility] Administration Ferrous Sulfate 325 mg 10/18/16 18:00 10/22/16 09:42 Feosol PO 325 mg BID [facility] Administration Finasteride 5 mg 10/19/16 10:00 10/22/16 09:42 Proscar PO 5 mg DAILY [facility] Administration Fluticasone Propionate 2 spr 10/19/16 10:00 10/22/16 09:42 Flonase EMMA Not Given DAILY [facility] Hydromorphone HCl 0.5 mg 10/21/16 14:20 10/21/16 22:34 Dilaudid IVP 0.5 mg Q4H PRN Administration Pain, moderate (4-7) Vancomycin/Sodium Chloride 1 gm in 200 mls @ 133 mls/hr 10/18/16 15:30 04:30 Vancocin IVPB 10/23/16 15:31 Not Given Q12H [facility] Meropenem 1 gm/ Sodium 100 mls @ 100 mls/hr 10/20/16 14:00 10/22/16 05:03 Chloride IVPB 100 mls/hr Q8 [facility] Administration Dextrose/Sodium Chloride 1,000 mls @ 150 mls/hr 10/21/16 11:31 10/22/16 09:40 Dextrose 5%/0.9% Ns 1000 Ml IV Not Given .Q6H40M [facility] Insulin Human Regular 0 unit 10/19/16 22:00 10/22/16 07:42 Novolin R SC Not Given ACHS [facility] Protocol Ketoconazole 0 gm 10/19/16 10:00 10/22/16 09:43 Nizoral TOP Not Given DAILY [facility] Metoprolol Tartrate 25 mg 10/18/16 21:00 10/22/16 09:41 Lopressor PO 25 mg BID@0900,2100 [facility] Administration Mirtazapine 30 mg 10/18/16 22:00 10/21/16 22:30 Remeron PO 30 mg HS [facility] Administration Ondansetron HCl 4 mg 10/20/16 09:06 10/21/16 22:29 Zofran Inj IVP 4 mg Q6 PRN Administration Nausea/Vomiting Potassium Chloride 40 meq 10/21/16 12:00 10/22/16 09:42 K-Dur 20 Meq Er Tab PO 40 meq DAILY [facility] Administration Rosuvastatin Calcium 10 mg 10/18/16 22:00 10/21/16 22:28 Crestor PO 10 mg HS [facility] Administration Tamsulosin HCl 0.4 mg 10/19/16 10:00 10/22/16 09:42 Flomax PO 0.4 mg DAILY [facility] Administration - Patient Studies Lab Studies: Microbiology Studies 10/18/16 15:00 Blood Culture - Final Blood-Venous Escherichia Coli Gram Stain - Final Lab Studies 10/22/16 10/22/16 10/22/16 Range/Units 07:16 06:04 06:04 WBC 4.6 L (4.8-10.8) K/uL RBC 3.38 L (4.40-5.90) Mil/uL Hgb 9.7 L (12.0-18.0) g/dL Hct 29.5 L (35.0-51.0) % MCV 87.2 (80.0-94.0) fL MCH 28.6 (27.0-31.0) pg MCHC 32.8 L (33.0-37.0) g/dL RDW 17.5 H (11.5-14.5) % Plt Count 123 L D (130-400) K/uL MPV 7.9 (7.2-11.7) fL Neut % (Auto) 65.0 (50.0-75.0) % Lymph % (Auto) 17.7 L (20.0-40.0) % [place] % (Auto) 7.9 (0.0-10.0) % Eos % (Auto) 8.2 H (0.0-4.0) % Baso % (Auto) 1.2 (0.0-2.0) % Neut # 3.0 (1.8-7.0) K/uL Lymph # 0.8 L (1.0-4.3) K/uL [place] # 0.4 (0.0-0.8) K/uL Eos # 0.4 (0.0-0.7) K/uL Baso # 0.1 (0.0-0.2) K/uL Sodium 141 (132-148) mmol/L Potassium 4.2 (3.6-5.2) mmol/L Chloride 104 (98-107) mmol/L Carbon Dioxide 25 (22-30) mmol/L Anion Gap 17 (10-20) BUN 19 (9-20) mg/dL Creatinine 1.3 (0.8-1.5) MG/DL Est GFR ( Amer) > 60 Est GFR (Non-Af Amer) 55 POC Glucose (mg/dL) 265 H (65-110) mg/dL Random Glucose 258 H (75-110) mg/dL Calcium 8.2 L (8.6-10.4) mg/dl Phosphorus 2.8 (2.5-4.5) mg/dL Magnesium 1.9 (1.6-2.3) mg/dL Total Bilirubin 0.5 (0.2-1.3) mg/dL Direct Bilirubin 0.5 H (0.0-0.4) mg/dL AST 13 L D (17-59) U/L ALT 23 (21-72) U/L Alkaline Phosphatase 113 (38-126) U/L Total Protein 6.2 L (6.3-8.3) g/dL Albumin 2.8 L (3.5-5.0) g/dL Globulin 3.4 (2.2-3.9) gm/dL Albumin/Globulin Ratio 0.8 L (1.0-2.1) Amylase 53 (30-110) U/L Lipase 108 (23-300) U/L 10/21/16 10/21/16 10/21/16 Range/Units 21:14 16:18 11:55 WBC (4.8-10.8) K/uL RBC (4.40-5.90) Mil/uL Hgb (12.0-18.0) g/dL Hct (35.0-51.0) % MCV (80.0-94.0) fL MCH (27.0-31.0) pg MCHC (33.0-37.0) g/dL RDW (11.5-14.5) % Plt Count (130-400) K/uL MPV (7.2-11.7) fL Neut % (Auto) (50.0-75.0) % Lymph % (Auto) (20.0-40.0) % [place] % (Auto) (0.0-10.0) % Eos % (Auto) (0.0-4.0) % Baso % (Auto) (0.0-2.0) % Neut # (1.8-7.0) K/uL Lymph # (1.0-4.3) K/uL [place] # (0.0-0.8) K/uL Eos # (0.0-0.7) K/uL Baso # (0.0-0.2) K/uL Sodium (132-148) mmol/L Potassium (3.6-5.2) mmol/L Chloride (98-107) mmol/L Carbon Dioxide (22-30) mmol/L Anion Gap (10-20) BUN (9-20) mg/dL Creatinine (0.8-1.5) MG/DL Est GFR ( Amer) Est GFR (Non-Af Amer) POC Glucose (mg/dL) 243 H 238 H 245 H (65-110) mg/dL Random Glucose (75-110) mg/dL Calcium (8.6-10.4) mg/dl Phosphorus (2.5-4.5) mg/dL Magnesium (1.6-2.3) mg/dL Total Bilirubin (0.2-1.3) mg/dL Direct Bilirubin (0.0-0.4) mg/dL AST (17-59) U/L ALT (21-72) U/L Alkaline Phosphatase (38-126) U/L Total Protein (6.3-8.3) g/dL Albumin (3.5-5.0) g/dL Globulin (2.2-3.9) gm/dL Albumin/Globulin Ratio (1.0-2.1) Amylase (30-110) U/L Lipase (23-300) U/L Laboratory Results - last 24 hr 10/21/16 10/21/16 10/21/16 11:55 16:18 21:14 WBC RBC Hgb Hct MCV MCH MCHC RDW Plt Count MPV Neut % (Auto) Lymph % (Auto) [place] % (Auto) Eos % (Auto) Baso % (Auto) Neut # Lymph # [place] # Eos # Baso # Sodium Potassium Chloride Carbon Dioxide Anion Gap BUN Creatinine Est GFR ( Amer) Est GFR (Non-Af Amer) POC Glucose (mg/dL) 245 H 238 H 243 H Random Glucose Calcium Phosphorus Magnesium Total Bilirubin Direct Bilirubin AST ALT Alkaline Phosphatase Total Protein Albumin Globulin Albumin/Globulin Ratio Amylase Lipase 10/22/16 10/22/16 10/22/16 06:04 06:04 07:16 WBC 4.6 L RBC 3.38 L Hgb 9.7 L Hct 29.5 L MCV 87.2 MCH 28.6 MCHC 32.8 L RDW 17.5 H Plt Count 123 L D MPV 7.9 Neut % (Auto) 65.0 Lymph % (Auto) 17.7 L [place] % (Auto) 7.9 Eos % (Auto) 8.2 H Baso % (Auto) 1.2 Neut # 3.0 Lymph # 0.8 L [place] # 0.4 Eos # 0.4 Baso # 0.1 Sodium 141 Potassium 4.2 Chloride 104 Carbon Dioxide 25 Anion Gap 17 BUN 19 Creatinine 1.3 Est GFR ( Amer) > 60 Est GFR (Non-Af Amer) 55 POC Glucose (mg/dL) 265 H Random Glucose 258 H Calcium 8.2 L Phosphorus 2.8 Magnesium 1.9 Total Bilirubin 0.5 Direct Bilirubin 0.5 H AST 13 L D ALT 23 Alkaline Phosphatase 113 Total Protein 6.2 L Albumin 2.8 L Globulin 3.4 Albumin/Globulin Ratio 0.8 L Amylase 53 Lipase 108 Fingerstick Blood Sugar Results: 146 Review of Systems - Constitutional Constitutional: absent: Fever, Chills - Cardiovascular Cardiovascular: absent: Chest Pain - Respiratory Respiratory: absent: Cough, Dyspnea - Gastrointestinal Gastrointestinal: absent: Abdominal Pain - Genitourinary Genitourinary: absent: Difficulty Urinating Critical Care Progress Note - Nutrition Nutrition: Nutrition Category Date Time Status Liquid Diet [DIET] Diets 10/22/16 Lunch Active Assessment/Plan - Assessment and Plan (Free Text) Assessment: Patient is a 70-year-old male with past medical history of PAD, hypertension, carotid stenosis, pancreatic lesion who recently underwent a right femoral endarterectomy, and suddenly developed swelling, pain, tingling in the right lower extremity, along with increasing swelling over the right groin with the significant pain. 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 Patient underwent a surgical intervention, a stent was placed and patient was transferred to ICU for further management. Patient course complicated with n/v (resolved now) and also gram negative bacteremia with E Coli with unknown source. Hida scan positive for obstructed CBD. Surgical reevaluation for possible elective Lap Na at some point in time. Neuro: Hx of depression -duloxetine 40mg po hs -mirtazipine 30mg po hs Pulm: -flonase -incentive spirometry CV: Hx of CAD, HTN, right femoral endarterectomy, carotid endarterectomy, cardiac cath - Cardiology consulted- Dr. Elliott, help appreciated - Vascular surgery consulted, Dr Lorenzo - Hematoma of the R groin noted on CT, continue to monitor - stopped norvasc 10mg po daily due to low BP - aspirin 81 po dialy - plavix 75mg po daily - lopressor 25mg po bid - crestor 10mg po hs Endo: Hx of DM - episode of hypoglycemia 10/20 - glucose 21 on poc, d50 50ml given and glucose level responded to wnl - stopped glipizide 2.5mg po acbd; stopped insulin levemir 36 units po hs - Accuchecks, monitor blood glucose - Continue novolin 0 units achs GI: Gallstones - HIDA: shows obstructed cystic duct - Surgical evaluation for elective Lap Na at some point in time or for recurrence of symptoms or pain. - CT Abd/Pelvis revealed cholelithiasis, chronic pancreatitis, duodenal distention w/ wall thickening and probable hematoma of the R groin - N/V resolved - GI, Dr Duque, consulted - Advancing diet as tolerated - Zofran 4mg ivp q6 prn - pepcid 20mg bid iv - colace 100mg po bid Heme: - Hgb 9.7 - platelets 123 - ferrous sulfate 325mg po bid Renal: Hx of BPH - finasteride 5mg po daily - flomax 0.4mg po daily MSK: pain in right lower extremity - dilaudid 0.5mg q4 prn for moderate to severe pain - discontinued percocet ID: blood culture with gram negative rods - wbc 4.6 - UA ordered, F/U - cefepime 1gm iv q12 - ketoconazole topical - vancomycin 1g iv q12 - infectious disease, Dr Herrera, consulted Prophylaxis: - DVT: heparin 5000u sc q8 - GI: pepcid iv q12 - PT treat and eval - out of bed to chair - NS 100cc/hr <Javier Keating - Last Filed: 10/22/16 17:36> CCU Objective - Vital Signs / Intake & Output Vital Signs (Last 4 hours): Vital Signs Temp Pulse Resp BP Pulse Ox 10/22/16 16:00 98.2 F 53 L 18 100 10/22/16 15:41 55 L 17 161/75 H 10/22/16 15:00 60 18 10/22/16 14:42 62 19 120/61 10/22/16 14:00 59 L 18 10/22/16 13:43 56 L 18 166/75 H Intake and Output (Last 8hrs): Intake & Output 10/22/16 10/22/16 10/22/16 06:59 14:59 22:59 Intake Total 1300 1160 440 Output Total 400 950 Balance 900 210 440 Weight 145 lb Intake: Intake, IV Amount 1300 800 200 Left Antecubital 100 Left Forearm 1200 800 200 Oral 360 240 Output: Urine 400 950 Urine, Voided 400 950 Stool 0 Emesis 0 - Medications Active Medications: Active Medications Generic Name Dose Route Start Last Admin Trade Name Freq PRN Reason Stop Dose Admin Aspirin 81 mg 10/19/16 10:00 10/22/16 09:41 Ecotrin PO 81 mg DAILY [facility] Administration Clopidogrel Bisulfate 75 mg 10/19/16 10:00 10/22/16 09:41 Plavix PO 75 mg DAILY [facility] Administration Docusate Sodium 100 mg 10/18/16 18:00 10/22/16 17:32 Colace PO Not Given BID [facility] Duloxetine HCl 40 mg 10/18/16 22:00 10/21/16 22:30 Cymbalta PO 40 mg HS [facility] Administration Famotidine 20 mg 10/21/16 10:15 10/22/16 17:32 Pepcid IVP Not Given BID [facility] Ferrous Sulfate 325 mg 10/18/16 18:00 10/22/16 17:32 Feosol PO Not Given BID [facility] Finasteride 5 mg 10/19/16 10:00 10/22/16 09:42 Proscar PO 5 mg DAILY [facility] Administration Fluticasone Propionate 2 spr 10/19/16 10:00 10/22/16 09:42 Flonase EMMA Not Given DAILY [facility] Hydromorphone HCl 0.5 mg 10/21/16 14:20 10/21/16 22:34 Dilaudid IVP 0.5 mg Q4H PRN Administration Pain, moderate (4-7) Vancomycin/Sodium Chloride 1 gm in 200 mls @ 133 mls/hr 10/18/16 15:30 16:06 Vancocin IVPB 10/23/16 15:31 Not Given Q12H [facility] Meropenem 1 gm/ Sodium 100 mls @ 100 mls/hr 10/20/16 14:00 10/22/16 16:06 Chloride IVPB Not Given Q8 [facility] Insulin Human Regular 0 unit 10/19/16 22:00 10/22/16 16:55 Novolin R SC Not Given ACHS [facility] Protocol Ketoconazole 0 gm 10/19/16 10:00 10/22/16 09:43 Nizoral TOP Not Given DAILY [facility] Metoprolol Tartrate 25 mg 10/18/16 21:00 10/22/16 09:41 Lopressor PO 25 mg BID@0900,2100 [facility] Administration Mirtazapine 30 mg 10/18/16 22:00 10/21/16 22:30 Remeron PO 30 mg HS [facility] Administration Ondansetron HCl 4 mg 10/20/16 09:06 10/21/16 22:29 Zofran Inj IVP 4 mg Q6 PRN Administration Nausea/Vomiting Potassium Chloride 40 meq 10/21/16 12:00 10/22/16 09:42 K-Dur 20 Meq Er Tab PO 40 meq DAILY [facility] Administration Rosuvastatin Calcium 10 mg 10/18/16 22:00 10/21/16 22:28 Crestor PO 10 mg HS [facility] Administration Tamsulosin HCl 0.4 mg 10/19/16 10:00 10/22/16 09:42 Flomax PO 0.4 mg DAILY [facility] Administration - Patient Studies Lab Studies: Lab Studies 10/22/16 10/22/16 10/22/16 Range/Units 16:13 11:44 07:16 WBC (4.8-10.8) K/uL RBC (4.40-5.90) Mil/uL Hgb (12.0-18.0) g/dL Hct (35.0-51.0) % MCV (80.0-94.0) fL MCH (27.0-31.0) pg MCHC (33.0-37.0) g/dL RDW (11.5-14.5) % Plt Count (130-400) K/uL MPV (7.2-11.7) fL Neut % (Auto) (50.0-75.0) % Lymph % (Auto) (20.0-40.0) % [place] % (Auto) (0.0-10.0) % Eos % (Auto) (0.0-4.0) % Baso % (Auto) (0.0-2.0) % Neut # (1.8-7.0) K/uL Lymph # (1.0-4.3) K/uL [place] # (0.0-0.8) K/uL Eos # (0.0-0.7) K/uL Baso # (0.0-0.2) K/uL Sodium (132-148) mmol/L Potassium (3.6-5.2) mmol/L Chloride (98-107) mmol/L Carbon Dioxide (22-30) mmol/L Anion Gap (10-20) BUN (9-20) mg/dL Creatinine (0.8-1.5) MG/DL Est GFR ( Amer) Est GFR (Non-Af Amer) POC Glucose (mg/dL) 247 H 248 H 265 H (65-110) mg/dL Random Glucose (75-110) mg/dL Calcium (8.6-10.4) mg/dl Phosphorus (2.5-4.5) mg/dL Magnesium (1.6-2.3) mg/dL Total Bilirubin (0.2-1.3) mg/dL Direct Bilirubin (0.0-0.4) mg/dL AST (17-59) U/L ALT (21-72) U/L Alkaline Phosphatase (38-126) U/L Total Protein (6.3-8.3) g/dL Albumin (3.5-5.0) g/dL Globulin (2.2-3.9) gm/dL Albumin/Globulin Ratio (1.0-2.1) Amylase (30-110) U/L Lipase (23-300) U/L 10/22/16 10/22/16 10/21/16 Range/Units 06:04 06:04 21:14 WBC 4.6 L (4.8-10.8) K/uL RBC 3.38 L (4.40-5.90) Mil/uL Hgb 9.7 L (12.0-18.0) g/dL Hct 29.5 L (35.0-51.0) % MCV 87.2 (80.0-94.0) fL MCH 28.6 (27.0-31.0) pg MCHC 32.8 L (33.0-37.0) g/dL RDW 17.5 H (11.5-14.5) % Plt Count 123 L D (130-400) K/uL MPV 7.9 (7.2-11.7) fL Neut % (Auto) 65.0 (50.0-75.0) % Lymph % (Auto) 17.7 L (20.0-40.0) % [place] % (Auto) 7.9 (0.0-10.0) % Eos % (Auto) 8.2 H (0.0-4.0) % Baso % (Auto) 1.2 (0.0-2.0) % Neut # 3.0 (1.8-7.0) K/uL Lymph # 0.8 L (1.0-4.3) K/uL [place] # 0.4 (0.0-0.8) K/uL Eos # 0.4 (0.0-0.7) K/uL Baso # 0.1 (0.0-0.2) K/uL Sodium 141 (132-148) mmol/L Potassium 4.2 (3.6-5.2) mmol/L Chloride 104 (98-107) mmol/L Carbon Dioxide 25 (22-30) mmol/L Anion Gap 17 (10-20) BUN 19 (9-20) mg/dL Creatinine 1.3 (0.8-1.5) MG/DL Est GFR ( Amer) > 60 Est GFR (Non-Af Amer) 55 POC Glucose (mg/dL) 243 H (65-110) mg/dL Random Glucose 258 H (75-110) mg/dL Calcium 8.2 L (8.6-10.4) mg/dl Phosphorus 2.8 (2.5-4.5) mg/dL Magnesium 1.9 (1.6-2.3) mg/dL Total Bilirubin 0.5 (0.2-1.3) mg/dL Direct Bilirubin 0.5 H (0.0-0.4) mg/dL AST 13 L D (17-59) U/L ALT 23 (21-72) U/L Alkaline Phosphatase 113 (38-126) U/L Total Protein 6.2 L (6.3-8.3) g/dL Albumin 2.8 L (3.5-5.0) g/dL Globulin 3.4 (2.2-3.9) gm/dL Albumin/Globulin Ratio 0.8 L (1.0-2.1) Amylase 53 (30-110) U/L Lipase 108 (23-300) U/L Laboratory Results - last 24 hr 10/21/16 10/22/16 10/22/16 21:14 06:04 06:04 WBC 4.6 L RBC 3.38 L Hgb 9.7 L Hct 29.5 L MCV 87.2 MCH 28.6 MCHC 32.8 L RDW 17.5 H Plt Count 123 L D MPV 7.9 Neut % (Auto) 65.0 Lymph % (Auto) 17.7 L [place] % (Auto) 7.9 Eos % (Auto) 8.2 H Baso % (Auto) 1.2 Neut # 3.0 Lymph # 0.8 L [place] # 0.4 Eos # 0.4 Baso # 0.1 Sodium 141 Potassium 4.2 Chloride 104 Carbon Dioxide 25 Anion Gap 17 BUN 19 Creatinine 1.3 Est GFR ( Amer) > 60 Est GFR (Non-Af Amer) 55 POC Glucose (mg/dL) 243 H Random Glucose 258 H Calcium 8.2 L Phosphorus 2.8 Magnesium 1.9 Total Bilirubin 0.5 Direct Bilirubin 0.5 H AST 13 L D ALT 23 Alkaline Phosphatase 113 Total Protein 6.2 L Albumin 2.8 L Globulin 3.4 Albumin/Globulin Ratio 0.8 L Amylase 53 Lipase 108 10/22/16 10/22/16 10/22/16 07:16 11:44 16:13 WBC RBC Hgb Hct MCV MCH MCHC RDW Plt Count MPV Neut % (Auto) Lymph % (Auto) [place] % (Auto) Eos % (Auto) Baso % (Auto) Neut # Lymph # [place] # Eos # Baso # Sodium Potassium Chloride Carbon Dioxide Anion Gap BUN Creatinine Est GFR ( Amer) Est GFR (Non-Af Amer) POC Glucose (mg/dL) 265 H 248 H 247 H Random Glucose Calcium Phosphorus Magnesium Total Bilirubin Direct Bilirubin AST ALT Alkaline Phosphatase Total Protein Albumin Globulin Albumin/Globulin Ratio Amylase Lipase Critical Care Progress Note - Nutrition Nutrition: Nutrition Category Date Time Status Liquid Diet [DIET] Diets 10/22/16 Lunch Active Attending/Attestation - Attestation I have personally seen and examined this patient.: Yes I have fully participated in the care of the patient.: Yes I have reviewed all pertinent clinical information: Yes Notes (Text): 10/22/16 17:35 Patient seen and examined in the intensive care unit. Case discussed with house staff in the morning. Positive HIDA scan Possible laparoscopic cholecystectomy Continue ICU monitoring
[2016-10-22 16:03] VITALS: O2SAT 100
[2016-10-22] MEDS: Vancomycin 1 gm/NS 200 ml 1 GM/200 ML BAG IVPB SCH (16:06)
--- NOTE | 2016-10-22 18:18 | CP.PCM.PN ---
Subjective - Date & Time of Evaluation Date of Evaluation: 10/22/16 Time of Evaluation: 07:00 - Subjective Subjective: No further N/V, HIDA Scan positive for cystic duct obstruction at 3 hours LFT's, Amylase and Lipase remain normal Objective - Vital Signs/Intake and Output Vital Signs (last 24 hours): Temp Pulse Resp BP Pulse Ox 98.2 F 53 L 18 161/75 H 100 10/22/16 16:00 10/22/16 16:00 10/22/16 16:00 10/22/16 15:41 10/22/16 16:00 Intake and Output: 10/22/16 10/22/16 06:59 18:59 Intake Total 1900 1600 Output Total 600 950 Balance 1300 650 - Medications Medications: Current Medications Aspirin (Ecotrin) 81 mg PO DAILY [facility] Last Admin: 10/22/16 09:41 Dose: 81 mg Clopidogrel Bisulfate (Plavix) 75 mg PO DAILY [facility] Last Admin: 10/22/16 09:41 Dose: 75 mg Docusate Sodium (Colace) 100 mg PO BID [facility] Last Admin: 10/22/16 17:32 Dose: Not Given Duloxetine HCl (Cymbalta) 40 mg PO HS [facility] Last Admin: 10/21/16 22:30 Dose: 40 mg Famotidine (Pepcid) 20 mg IVP BID [facility] Last Admin: 10/22/16 17:32 Dose: Not Given Ferrous Sulfate (Feosol) 325 mg PO BID [facility] Last Admin: 10/22/16 17:32 Dose: Not Given Finasteride (Proscar) 5 mg PO DAILY [facility] Last Admin: 10/22/16 09:42 Dose: 5 mg Fluticasone Propionate (Flonase) 2 spr EMMA DAILY [facility] Last Admin: 10/22/16 09:42 Dose: Not Given Hydromorphone HCl (Dilaudid) 0.5 mg IVP Q4H PRN PRN Reason: Pain, moderate (4-7) Last Admin: 10/21/16 22:34 Dose: 0.5 mg Vancomycin/Sodium Chloride (Vancocin) 1 gm in 200 mls @ 133 mls/hr IVPB Q12H [facility] Stop: 10/23/16 15:31 Last Admin: 10/22/16 16:06 Dose: Not Given Meropenem 1 gm/ Sodium (Chloride) 100 mls @ 100 mls/hr IVPB Q8 [facility] Last Admin: 10/22/16 16:06 Dose: Not Given Insulin Human Regular (Novolin R) 0 unit SC ACHS [facility] PRN Reason: Protocol Last Admin: 10/22/16 16:55 Dose: Not Given Ketoconazole (Nizoral) 0 gm TOP DAILY [facility] Last Admin: 10/22/16 09:43 Dose: Not Given Metoprolol Tartrate (Lopressor) 25 mg PO BID@0900,2100 [facility] Last Admin: 10/22/16 09:41 Dose: 25 mg Mirtazapine (Remeron) 30 mg PO HS [facility] Last Admin: 10/21/16 22:30 Dose: 30 mg Ondansetron HCl (Zofran Inj) 4 mg IVP Q6 PRN PRN Reason: Nausea/Vomiting Last Admin: 10/21/16 22:29 Dose: 4 mg Potassium Chloride (K-Dur 20 Meq Er Tab) 40 meq PO DAILY [facility] Last Admin: 10/22/16 09:42 Dose: 40 meq Rosuvastatin Calcium (Crestor) 10 mg PO [facility] Last Admin: 10/21/16 22:28 Dose: 10 mg Tamsulosin HCl (Flomax) 0.4 mg PO DAILY [facility] Last Admin: 10/22/16 09:42 Dose: 0.4 mg - Labs Labs: 10/22/16 06:04 10/22/16 06:04 PT 12.0 SECONDS (9.7-12.2) 10/18/16 02:06 INR 1.1 10/18/16 02:06 APTT 30 SECONDS (21-34) 10/18/16 02:06 - Constitutional Appears: Non-toxic, Chronically Ill - Head Exam Head Exam: NORMOCEPHALIC - Eye Exam Eye Exam: PERRL - ENT Exam ENT Exam: Mucous Membranes Dry - Neck Exam Neck Exam: absent: Lymphadenopathy - Respiratory Exam Respiratory Exam: Decreased Breath Sounds - Cardiovascular Exam Cardiovascular Exam: REGULAR RHYTHM - GI/Abdominal Exam GI & Abdominal Exam: Distended - Rectal Exam Rectal Exam: Deferred - Exam Exam: NORMAL INSPECTION Assessment and Plan (1) Bacteremia Status: Acute (2) 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
[2016-10-22] MEDS ORDERED: Piperacillin/Tazobact 3.375 GM in Sodium Chloride 100 ML IVPB SCH (18:30)
[2016-10-22] MEDS ORDERED: Piperacill/Tazo 3.375gm in Dex 3.375 GM/50 ML BAG IVPB SCH (20:00)
[2016-10-22 21:34] VITALS: TEMP 97.9
[2016-10-22 21:35] VITALS: PULSE 55; RESP 20
[2016-10-22 21:45] VITALS: BP 138/65
--- NOTE | 2016-10-22 23:06 | CP.PCM.PN ---
Subjective - Date & Time of Evaluation Date of Evaluation: 10/22/16 Time of Evaluation: 07:05 - Subjective Subjective: Patient seen and evaluated Denies chest pain and dyspnea Now with bacteremia ID on case Objective - Vital Signs/Intake and Output Vital Signs (last 24 hours): Temp Pulse Resp BP Pulse Ox 97.9 F 55 L 20 138/65 100 10/22/16 20:00 10/22/16 21:00 10/22/16 21:00 10/22/16 21:43 10/22/16 20:00 Intake and Output: 10/22/16 10/23/16 18:59 06:59 Intake Total 1600 100 Output Total 950 350 Balance 650 -250 - Medications Medications: Current Medications Aspirin (Ecotrin) 81 mg PO DAILY [facility] Last Admin: 10/22/16 09:41 Dose: 81 mg Clopidogrel Bisulfate (Plavix) 75 mg PO DAILY [facility] Last Admin: 10/22/16 09:41 Dose: 75 mg Docusate Sodium (Colace) 100 mg PO BID [facility] Last Admin: 10/22/16 17:32 Dose: Not Given Duloxetine HCl (Cymbalta) 40 mg PO HS [facility] Last Admin: 10/22/16 21:44 Dose: 40 mg Famotidine (Pepcid) 20 mg IVP BID [facility] Last Admin: 10/22/16 17:32 Dose: Not Given Ferrous Sulfate (Feosol) 325 mg PO BID [facility] Last Admin: 10/22/16 17:32 Dose: Not Given Finasteride (Proscar) 5 mg PO DAILY [facility] Last Admin: 10/22/16 09:42 Dose: 5 mg Fluticasone Propionate (Flonase) 2 spr EMMA DAILY [facility] Last Admin: 10/22/16 09:42 Dose: Not Given Hydromorphone HCl (Dilaudid) 0.5 mg IVP Q4H PRN PRN Reason: Pain, moderate (4-7) Last Admin: 10/21/16 22:34 Dose: 0.5 mg Vancomycin/Sodium Chloride (Vancocin) 1 gm in 200 mls @ 133 mls/hr IVPB Q12H [facility] Stop: 10/23/16 15:31 Last Admin: 10/22/16 16:06 Dose: Not Given Piperacillin Sod/Tazobactam Sod (Zosyn 3.375 Gm Iv Premix) 3.375 gm in 50 mls @ 100 mls/hr IVPB Q8H [facility] Insulin Human Regular (Novolin R) 0 unit SC ACHS [facility] PRN Reason: Protocol Last Admin: 10/22/16 21:44 Dose: 6 unit Ketoconazole (Nizoral) 0 gm TOP DAILY [facility] Last Admin: 10/22/16 09:43 Dose: Not Given Metoprolol Tartrate (Lopressor) 25 mg PO BID@0900,2100 [facility] Last Admin: 10/22/16 21:43 Dose: 25 mg Mirtazapine (Remeron) 30 mg PO HS [facility] Last Admin: 10/22/16 21:43 Dose: 30 mg Ondansetron HCl (Zofran Inj) 4 mg IVP Q6 PRN PRN Reason: Nausea/Vomiting Last Admin: 10/21/16 22:29 Dose: 4 mg Potassium Chloride (K-Dur 20 Meq Er Tab) 40 meq PO DAILY [facility] Last Admin: 10/22/16 09:42 Dose: 40 meq Rosuvastatin Calcium (Crestor) 10 mg PO [facility] Last Admin: 10/22/16 21:43 Dose: 10 mg Tamsulosin HCl (Flomax) 0.4 mg PO DAILY [facility] Last Admin: 10/22/16 09:42 Dose: 0.4 mg - Labs Labs: 10/22/16 06:04 10/22/16 06:04 PT 12.0 SECONDS (9.7-12.2) 10/18/16 02:06 INR 1.1 10/18/16 02:06 APTT 30 SECONDS (21-34) 10/18/16 02:06 - Head Exam Head Exam: ATRAUMATIC, NORMAL INSPECTION - Eye Exam Eye Exam: EOMI Pupil Exam: NORMAL ACCOMODATION - ENT Exam ENT Exam: Mucous Membranes Moist, Normal Exam - Neck Exam Neck Exam: Full ROM, Normal Inspection - Respiratory Exam Respiratory Exam: Clear to Ausculation Bilateral, NORMAL BREATHING PATTERN - Cardiovascular Exam Cardiovascular Exam: REGULAR RHYTHM, +S1, +S2 - GI/Abdominal Exam GI & Abdominal Exam: Soft, Normal Bowel Sounds - Extremities Exam Extremities Exam: Full ROM - Neurological Exam Neurological Exam: Alert, Awake, CN II-XII Intact - Skin Skin Exam: Warm Assessment and Plan - Assessment and Plan (Free Text) Assessment: 1. bacteremia on Antibiotics 2. S/P SHEEP SHEARER stent placement 3. CAD 4. PAD
== END 2016-10-22 22:40 | disposition left against medical advice (07) | DRG 253 ==
LOC: C.ER 01:15 → C.9OBSV 04:08 → OBSVTOIN 10:50 → C.9E 11:19 → C.9I 15:47
PROVIDERS: ADMIT Emergency Medicine; ATTEND Surgery Vascular Surgery
PROC: 3E053GC Introduction of Other Therapeutic Substance into Peripheral Artery, Percutaneous Approach (ICD-10-PCS; 2016-10-18)
PROC: 04QK3ZZ Repair Right Femoral Artery, Percutaneous Approach (ICD-10-PCS; principal; 2016-10-18 12:30)
DX: I72.4 Aneurysm of artery of lower extremity (principal); N17.9 Acute kidney failure, unspecified; I74.3 Embolism and thrombosis of arteries of the lower extremities; E11.649 Type 2 diabetes mellitus with hypoglycemia without coma; R78.81 Bacteremia; K86.0 Alcohol-induced chronic pancreatitis; J44.9 Chronic obstructive pulmonary disease, unspecified; I10 Essential (primary) hypertension; F17.210 Nicotine dependence, cigarettes, uncomplicated; I25.10 Atherosclerotic heart disease of native coronary artery without angina pectoris; E78.5 Hyperlipidemia, unspecified; B96.20 Unspecified Escherichia coli [E. coli] as the cause of diseases classified elsewhere; Z79.4 Long term (current) use of insulin; Z79.02 Long term (current) use of antithrombotics/antiplatelets; N40.0 Benign prostatic hyperplasia without lower urinary tract symptoms; Z68.21 Body mass index [BMI] 21.0-21.9, adult

== ENCOUNTER 2016-10-23 14:09 | Inpatient (IN) | payer MEDICARE ==
[2016-10-23 14:10] VITALS: BMI 22.8
[2016-10-23] MEDS ORDERED: Sodium Chloride 0.9% 1,000 ML IV ONE (15:09)
--- NOTE | 2016-10-23 15:21 | C.PDOC ---
History Of Present Illness 70 year old male presents to the ED with complaints of right groin and right leg pain when walking. 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 He had surgical repair with stenting. He was admitted to ICU where he developed a gram negative bacteremia and thought to have an obstructed common bile duct. Patient was started on IV antibiotics and had multiple consultations. He signed out AMA from ICU yesterday for personal reasons and returned today because still not feeling well. He continues to have abdominal discomfort, pain in his groin and pain in the right leg while ambulating. Patient is tolerating food and liquids. He denies fever, vomiting, or chest pain. Time Seen by Provider: 10/23/16 14:57 Chief Complaint (Nursing): Lower Extremity Problem/Injury History Per: Patient History/Exam Limitations: no limitations Onset/Duration Of Symptoms: Days Current Symptoms Are (Timing): Still Present Recent travel outside of the [place]: No Additional History Per: Prior Records (Patient was seen in ED 1 week ago and in ICU ) Past Medical History Reviewed: Historical Data, Nursing Documentation, Vital Signs Vital Signs: Last Vital Signs Temp 98.5 F 10/23/16 14:41 Pulse 91 H 10/23/16 14:41 Resp 20 10/23/16 14:41 BP 151/81 H 10/23/16 14:41 Pulse Ox 98 10/23/16 15:34 - Medical History PMH: Anemia, Arthritis, Depression, Fractures (rt wrist), Gall Bladder Disease, HTN, Pancreatitis Surgical History: Carotid Endarterectomy (L CEA) - [facility] Procedures EXCISION OF TOE NAIL, EXTERNAL APPROACH (09/25/16) EXERCISE TRMT MUSCULOSK LOW BACK/LE W ASSIST EQUIP (09/25/16) EXTIRPATION OF MATTER FROM L EXT CAROTID, OPEN APPROACH (08/30/16) EXTIRPATION OF MATTER FROM L INT CAROTID, OPEN APPROACH (08/30/16) EXTIRPATION OF MATTER FROM R FEM ART, OPEN APPROACH (09/20/16) GAIT TRAINING/AMBULAT TREATMENT USING ASSIST EQUIPMENT (09/25/16) HOME MANAGEMENT TREATMENT USING ASSIST EQUIPMENT (09/25/16) INSERT OF MONITOR DEV INTO CHEST SUBCU/FASCIA, PERC APPROACH (05/02/16) INTRODUCE OF OTH THERAP SUBST INTO PERIPH ART, PERC APPROACH (10/18/16) REPAIR FACE SKIN, EXTERNAL APPROACH (05/02/16) REPAIR RIGHT FEMORAL ARTERY, PERCUTANEOUS APPROACH (10/18/16) SUPPLEMENT L INT CAROTID WITH SYNTH SUB, OPEN APPROACH (08/30/16) SUPPLEMENT R FEM ART WITH SYNTH SUB, OPEN APPROACH (09/20/16) Family History: States: Unknown Family Hx - Social History Hx Tobacco Use: Yes Hx Alcohol Use: No Hx Substance Use: Yes - Immunization History Hx Tetanus Toxoid Vaccination: Yes (unsure) Hx Influenza Vaccination: No (unsure) Hx Pneumococcal Vaccination: Yes (unsure) Review Of Systems Constitutional: Negative for: Fever, Chills Cardiovascular: Negative for: Chest Pain, Palpitations Respiratory: Negative for: Cough, Shortness of Breath Gastrointestinal: Negative for: Nausea, Vomiting, Abdominal Pain, Diarrhea Musculoskeletal: Positive for: Leg Pain (right leg pain when walking ), Other ( right groin pain ) Physical Exam - Physical Exam Appears: Non-toxic, No Acute Distress Skin: Warm, Dry Head: Atraumatic Eye(s): bilateral: Normal Inspection Oral Mucosa: Moist Neck: Supple Chest: Symmetrical, No Deformity Cardiovascular: Rhythm Regular, No Murmur Respiratory: Normal Breath Sounds, No Rales, No Rhonchi, No Wheezing Gastrointestinal/Abdominal: Soft, No Tenderness, No Distention, No Guarding, No Rebound Extremity: No Swelling, Other (clean healing incision to right groin. Legs appear warm, no signs of ischemia. ) Neurological/Psych: Oriented x3, Normal Speech, Normal Cognition ED Course And Treatment - Laboratory Results Result Diagrams: 10/23/16 15:38 10/23/16 15:38 Lab Interpretation: Abnormal (Normal WBC, mild anemia, Glucose 335) O2 Sat by Pulse Oximetry: 98 (room air ) Progress Note: Labs, UA, and doppler study were ordered. - Physician Consult Information Outcome Of Conversation: Case discussed with Dr Person and Dr Junior. Patient to be admitted to the floor for continued IV antibiotics and evaluation of possible CBD obstruction. Disposition - Disposition Disposition: HOSPITALIZED Disposition Time: 16:28 Condition: STABLE - POA Present On Arrival: Poor Glycemic Control - Clinical Impression Clinical Impression: Pseudoaneurysm of femoral artery, E coli bacteremia, Claudication - Scribe Statement The provider has reviewed the documentation as recorded by the Scribmoris Morton All medical record entries made by the Scribe were at my direction and personally dictated by me. I have reviewed the chart and agree that the record accurately reflects my personal performance of the history, physical exam, medical decision making, and the department course for this patient. I have also personally directed, reviewed, and agree with the discharge instructions and disposition.
[2016-10-23] MEDS ORDERED: Sodium Chloride 0.9% 1,000 ML ONE (15:28)
[2016-10-23 15:47] LABS: BASO # 0.1 K/uL (0.0-0.2); BASO % 0.8 % (0.0-2.0); EOS # 0.3 K/uL (0.0-0.7); EOS % 3.3 % (0.0-4.0); LYMPH # 0.7 K/uL (1.0-4.3); LYMPH % 8.1 % (20.0-40.0); MEAN CORPUSCULAR HEMOGLOBIN 28.1 pg (27.0-31.0); MEAN CORPUSCULAR HGB CONC 32.7 g/dL (33.0-37.0); MEAN PLATELET VOLUME 7.7 fL (7.2-11.7); MONO # 0.6 K/uL (0.0-0.8); MONO % 6.7 % (0.0-10.0); PLATELET COUNT 159 K/uL (130-400); RED CELL DISTRIBUTION WIDTH 17.5 % (11.5-14.5)
[2016-10-23 15:49] LABS: WHITE BLOOD COUNT 8.5 K/uL (4.8-10.8)
[2016-10-23 16:17] LABS: CHLORIDE 98 mmol/L (98-107); POTASSIUM 4.7 mmol/L (3.6-5.2); SODIUM 135 mmol/L (132-148)
[2016-10-23 16:19] LABS: AMYLASE 34 U/L (30-110)
[2016-10-23 16:20] LABS: ALB/GLOB RATIO 0.9 (1.0-2.1); ALKALINE PHOSPHATASE 125 U/L (38-126); ALT/SGPT 29 U/L (21-72); AST/SGOT 22 U/L (17-59); BILIRUBIN,TOTAL 0.5 mg/dL (0.2-1.3); BLOOD UREA NITROGEN 19 mg/dL (9-20); CALCIUM 8.2 mg/dl (8.6-10.4); CARBON DIOXIDE 24 mmol/L (22-30); GFR AFRICAN-AMERICAN > 60; GLUCOSE,RANDOM 335 mg/dL (75-110); TOTAL PROTEIN 6.7 g/dL (6.3-8.3)
[2016-10-23 16:25] LABS: RBC URINE < 1 /hpf (0-3); URINE BILIRUBIN NEGATIVE (NEGATIVE); URINE BLOOD NEGATIVE (NEGATIVE); URINE COLOR Yellow (YELLOW); URINE GLUCOSE (UA) 3+ mg/dL (Normal); URINE KETONE NEGATIVE (NEGATIVE); URINE LEUKOCYTE ESTERASE NEG Leu/uL (Negative); URINE PROTEIN 1+ mg/dL (NEGATIVE); URINE UROBILINOGEN NORMAL mg/dL (0.2-1.0); WBC URINE 1 /hpf (0-5)
[2016-10-23 16:29] LABS: EOSINOPHIL 5 % (0-4); NEUTROPHIL 83 % (50-75); TOTAL CELLS COUNTED 100
[2016-10-23 16:38] LABS: URINE BACTERIA RARE (<OCC)
--- NOTE | 2016-10-23 16:44 | CP.PCM.HP ---
<Abhinav Macedo - Last Filed: 10/23/16 16:38> History of Present Illness - History of Present Illness History of Present Illness: This is a 70 yo male with past medical history of PAD, HTN, carotid stenosis, pancreatic pseudocyst, s/p femoral endartectomy presenting with chief complaint right groin swelling/pain. Patient was in ICU yesterday with bacteremia and left due to personal reasons. Previously pt had had a femoral endarterectomy on right side on 09/22. Pt was discharged to [facility] and completed therapy. Soon after, patient presented to our ER where he noticed right groin swelling and pain and tingling in his right leg. He was found to have a femoral artery pseudoaneurysm and underwent stent placement. His course was complicated by E coli bacteremia and he did not finish tx because he left hospital. He is now back to finish his tx. PMH: PAD, HTN, carotid stenosis, DM, pancreatic pseudocyst, femoral artery pseudoaneurysm, DM PSH: femoral endarterectomy, embolectomy, carotid endarterectomy Allergies: NKDA FH: aortic aneurysm, ALS Social hx: 3 pack/day smoker. Former alcoholic. Hx of heavy drug use. Marijuana , cocaine, barbituates, speed. Present on Admission - Present on Admission Any Indicators Present on Admission: No History of DVT/PE: No History of Uncontrolled Diabetes: No Urinary Catheter: No Decubitus Ulcer Present: No Review of Systems - Review of Systems All systems: reviewed and no additional remarkable complaints except Review of Systems: negative except for HPI. Past Patient History - Infectious Disease Hx of Infectious Diseases: None - Tetanus Immunizations Tetanus Immunization: Unknown - Past Medical History & Family History Past Medical History?: Yes - Past Social History Smoking Status: Heavy Smoker > 10 Cigarettes Daily Chewing Tobacco Use: No Cigar Use: No Alcohol: None Drugs: Denies Home Situation {Lives}: Alone Domestic Violence: Negative - CARDIAC Hx Hypertension: Yes - PULMONARY Hx Respiratory Disorders: No - NEUROLOGICAL Hx Syncope: Yes Hx Vertigo: Yes - HEENT Other/Comment: glasses for reading - RENAL Hx Chronic Kidney Disease: No - ENDOCRINE/METABOLIC Hx Endocrine Disorders: Yes Hx Diabetes Mellitus Type 2: Yes - HEMATOLOGICAL/ONCOLOGICAL Hx Anemia: Yes - INTEGUMENTARY Hx Dermatological Problems: No - MUSCULOSKELETAL/RHEUMATOLOGICAL Hx Arthritis: Yes Hx Fractures: Yes (rt wrist) - GASTROINTESTINAL Hx Gall Bladder Disease: Yes Hx Pancreatitis: Yes - GENITOURINARY/GYNECOLOGICAL Hx Genitourinary Disorders: Yes Hx Prostate Problems: Yes (BPH) - PSYCHIATRIC Hx Depression: Yes Hx Substance Use: Yes - SURGICAL HISTORY Hx Carotid Endarterectomy: Yes (L CEA) - ANESTHESIA Hx Anesthesia: Yes Hx Anesthesia Reactions: No Hx Malignant Hyperthermia: No Meds Allergies/Adverse Reactions: Allergies Allergy/AdvReac Type Severity Reaction Status Date / Time No Known Allergies Allergy Verified 10/23/16 14:42 Physical Exam - Constitutional Appears: Non-toxic, No Acute Distress - Head Exam Head Exam: ATRAUMATIC, NORMAL INSPECTION, NORMOCEPHALIC - Eye Exam Eye Exam: EOMI - ENT Exam ENT Exam: Mucous Membranes Moist - Neck Exam Neck exam: Positive for: Full Rom - Respiratory Exam Respiratory Exam: NORMAL BREATHING PATTERN. absent: Respiratory Distress - Cardiovascular Exam Cardiovascular Exam: REGULAR RHYTHM, +S1, +S2 - GI/Abdominal Exam GI & Abdominal Exam: absent: Tenderness Additional comments: midline scar - Extremities Exam Extremities exam: Positive for: calf tenderness. Negative for: full ROM, normal inspection Additional comments: some atrophy right leg, moderate tenderness along right leg and calf and heel some swelling, erythema along right groin - Neurological Exam Neurological exam: Alert, Oriented x3 - Psychiatric Exam Psychiatric exam: Normal Affect, Normal Mood - Skin Skin Exam: Dry, Intact, Normal Color, Warm Results - Vital Signs Recent Vital Signs: Last Vital Signs Temp 98.5 F 10/23/16 14:41 Pulse 91 H 10/23/16 14:41 Resp 20 10/23/16 14:41 BP 151/81 H 10/23/16 14:41 Pulse Ox 98 10/23/16 16:30 - Labs Result Diagrams: 10/23/16 15:38 10/23/16 15:38 Assessment & Plan - Assessment and Plan (Free Text) Assessment: This is a 70 yo male with pmh of pad, htn, carotid stenosis, pseudocyst, femoral endarterectomy, femoral artery pseudoaneurysm presenting for continuation of tx. 1. E coli bacteremia -ID consulted. recs appreciated. -continue IV merrem -continue IV vanco -NS 75 cc/hr 2. Leg pain/groin pain -sx consulted. Dr. Lorenzo. recs appreciated -dilaudid for pain -continue asa -continue plavix -continue crestor 3. Nausea -zofran -clear liquid diet -continue pepcid -continue colace 4. HTN -continue lopressor 5. hx of DM continue accuchecks continue sliding scale 6. hx of anemia -continue ferrous sulfate 7. hx of BPH -continue proscar -continue flomax 8. GI/DVT ppx -continue pepcid dw Dr. Junior <VernonLatashan Lennie - Last Filed: 10/23/16 18:19> Results - Vital Signs Recent Vital Signs: Last Vital Signs Temp 98.6 F 10/23/16 17:53 Pulse 76 10/23/16 18:17 Resp 20 10/23/16 18:17 BP 142/83 10/23/16 18:17 Pulse Ox 99 10/23/16 18:17 - Labs Result Diagrams: 10/23/16 15:38 10/23/16 15:38 Labs: Laboratory Results - last 24 hr 10/23/16 17:44 POC Glucose (mg/dL) 354 H Attending/Attestation - Attestation I have personally seen and examined this patient.: Yes I have fully participated in the care of the patient.: Yes I have reviewed all pertinent clinical information: Yes Notes (Text): 10/23/16 18:19 Patient was seen and examined at bedside with the resident at the time of admission the son we will start the patient on IV antibiotics We will request infectious disease and vascular surgery consultation I discussed the plan of care with the resident and agree with the history and physical and assessment/plan documented.
[2016-10-23] MEDS: HYDROmorphone 0.5 mg/0.5 ml ISec IVP PRN (17:53)
[2016-10-23] MEDS: (Novolin R) Insulin Human Regular 100 units/ml vial SC SCH ×2 (17:53→21:37)
[2016-10-23] MEDS: Sodium Chloride 0.9% 1,000 ML IV SCH (18:03)
--- NOTE | 2016-10-23 19:23 | CP.PCM.CON ---
History of Present Illness - History of Present Illness History of Present Illness: 70 yo male with past medical history of PAD, HTN, carotid stenosis, pancreatic pseudocyst, s/p femoral endartectomy presenting with chief complaint right groin swelling/pain. Patient was in ICU yesterday with bacteremia and left due to personal reasons. Previously pt had had a femoral endarterectomy on right side on 09/22. Pt was discharged to [facility] and completed therapy. Soon after , patient presented to our ER where he noticed right groin swelling and pain and tingling in his right leg. He was found to have a femoral artery pseudoaneurysm and underwent stent placement. His course was complicated by E coli bacteremia and he did not finish tx because he left hospital. He is now back to finish his tx. PMH: PAD, HTN, carotid stenosis, DM, pancreatic pseudocyst, femoral artery pseudoaneurysm, DM PSH: femoral endarterectomy, embolectomy, carotid endarterectomy Allergies: NKDA FH: aortic aneurysm, ALS Social hx: 3 pack/day smoker. Former alcoholic. Hx of heavy drug use. Marijuana , cocaine, barbituates, speed. Review of Systems - Constitutional Constitutional: As Per HPI - EENT Eyes: absent: As Per HPI, Blind Spots, Blurred Vision, Change in Vision, Decreased Night Vision, Diplopia, Discharge, Dry Eye, Exophthalmos, Floaters, Irritation, Itchy Eyes, Loss of Peripheral Vision, Pain, Photophobia, Requires Corrective Lenses, Sees Flashes, Spots in Vision, Tunnel Vision, Other Visual Disturbances, Loss of Vision, Other Ears: absent: As Per HPI, Decreased Hearing, Ear Discharge, Ear Pain, Tinnitus, Abnormal Hearing, Disequilibrium, Dizziness, Other Nose/Mouth/Throat: absent: As Per HPI, Epistaxis, Nasal Congestion, Nasal Discharge, Nasal Obstruction, Nasal Trauma, Nose Pain, Post Nasal Drip, Sinus Pain, Sinus Pressure, Bleeding Gums, Change in Voice, Dental Pain, Dry Mouth, Dysphagia, Halitosis, Hoarsness, Lip Swelling, Mouth Lesions, Mouth Pain, Odynophagia, Sore Throat, Throat Swelling, Tongue Swelling, Facial Pain, Neck Pain, Neck Mass, Other - Cardiovascular Cardiovascular: absent: As Per HPI, Acrocyanosis, Chest Pain, Chest Pain at Rest , Chest Pain with Activity, Claudication, Diaphoresis, Dyspnea, Dyspnea on Exertion, Edema, Irregular Heart Rhythm, Pain Radiating to Arm/Neck/Jaw, Leg Edema, Leg Ulcers, Lightheadedness, Orthopnea, Palpitations, Paroxysmal Nocturnal Dyspnea, Pedal Edema, Radiating Pain, Rapid Heart Rate, Slow Heart Rate, Syncope, Other - Respiratory Respiratory: absent: As Per HPI, Cough, Dyspnea, Hemoptysis, Dyspnea on Exertion , Wheezing, Snoring, Stridor, Pain on Inspiration, Chest Congestion, Excessive Mucous Production, Change in Mucous Color, Pain with Coughing, Other - Gastrointestinal Gastrointestinal: As Per HPI - Genitourinary Genitourinary: absent: As Per HPI, Change in Urinary Stream, Difficulty Urinating, Dysuria, Flank Pain, Hematuria, Pyuria, Nocturia, Urinary Incontinence, Urinary Frequency, Urinary Hesitance, Urinary Urgency, Voiding Freq/Small Amts, Freq UTI, Hx Renal/Bladder Calculi, Hx /Renal Surgery, Bladder Distension, Other - Musculoskeletal Musculoskeletal: absent: As Per HPI, Abnormal Gait, Arthralgias, Atrophy, Back Pain, Deformity, Joint Swelling, Limited Range of Motion, Loss of Height, Muscle Cramps, Muscle Weakness, Myalgias, Neck Pain, Numbness, Radiating Pain into Limb, Stiffness, Tingling, Other - Integumentary Integumentary: As Per HPI - Neurological Neurological: absent: As Per HPI, Abnormal Gait, Abnormal Hearing, Abnormal Movements, Abnormal Speech, Behavioral Changes, Burning Sensations, Confusion, Convulsions, Disequilibrium, Dizziness, Numbness, Focal Weakness, Frequent Falls , Headaches, Lack of Coordination, Loss of Vision, Memory Loss, Paresthesias, Radicular Pain, Restless Legs, Sensory Deficit, Syncope, Tingling, Tremor, Vertigo, Weakness, Other Visual Disturbances, Other - Psychiatric Psychiatric: absent: As Per HPI, Abnormal Sleep Pattern, Anhedonia, Anxiety, Auditory Hallucinations, Behavioral Changes, Change in Appetite, Change in Libido, Confusion, Depression, Difficulty Concentrating, Hallucinations, Homicidal Ideation, Hopelessness, Irritability, Memory Loss, Mood Swings, Panic Attacks, Paranoia, Suicidal Ideation, Visual Hallucinations, Tactile Hallucinations, Other - Endocrine Endocrine: absent: As Per HPI, Change in Body Appearance, Change in Libido, Cold Intolorance, Deepening of Voice, Excessive Sweating, Fatigue, Flushing, Heat Intolorance, Increase in Ring/Shoe/Hat Size, Palpitations, Polydipsia, Polyphagia, Polyuria, Other - Hematologic/Lymphatic Hematologic: absent: As Per HPI, Easy Bleeding, Easy Bruising, Lymphadenopathy, Other Past Patient History - Infectious Disease Hx of Infectious Diseases: None - Tetanus Immunizations Tetanus Immunization: Unknown - Past Medical History & Family History Past Medical History?: Yes - Past Social History Smoking Status: Heavy Smoker > 10 Cigarettes Daily Chewing Tobacco Use: No Cigar Use: No Alcohol: None Drugs: Denies Home Situation {Lives}: Alone Domestic Violence: Negative - CARDIAC Hx Hypertension: Yes - PULMONARY Hx Respiratory Disorders: No - NEUROLOGICAL Hx Syncope: Yes Hx Vertigo: Yes - HEENT Other/Comment: glasses for reading - RENAL Hx Chronic Kidney Disease: No - ENDOCRINE/METABOLIC Hx Endocrine Disorders: Yes Hx Diabetes Mellitus Type 2: Yes - HEMATOLOGICAL/ONCOLOGICAL Hx Anemia: Yes - INTEGUMENTARY Hx Dermatological Problems: No - MUSCULOSKELETAL/RHEUMATOLOGICAL Hx Arthritis: Yes Hx Fractures: Yes (rt wrist) - GASTROINTESTINAL Hx Gall Bladder Disease: Yes Hx Pancreatitis: Yes - GENITOURINARY/GYNECOLOGICAL Hx Genitourinary Disorders: Yes Hx Prostate Problems: Yes (BPH) - PSYCHIATRIC Hx Depression: Yes Hx Substance Use: Yes - SURGICAL HISTORY Hx Carotid Endarterectomy: Yes (L CEA) - ANESTHESIA Hx Anesthesia: Yes Hx Anesthesia Reactions: No Hx Malignant Hyperthermia: No Has any member of the family had a problem w/ anesthesia?: No Meds Allergies/Adverse Reactions: Allergies Allergy/AdvReac Type Severity Reaction Status Date / Time No Known Allergies Allergy Verified 10/23/16 14:42 - Medications Medications: Current Medications Aspirin (Aspirin Chewable) 81 mg PO DAILY [facility] Clopidogrel Bisulfate (Plavix) 75 mg PO DAILY [facility] Docusate Sodium (Colace) 100 mg PO BID [facility] Last Admin: 10/23/16 18:15 Dose: 100 mg Duloxetine HCl (Cymbalta) 40 mg PO HS [facility] Famotidine (Pepcid) 20 mg IVP DAILY [facility] Last Admin: 10/23/16 17:45 Dose: 20 mg Ferrous Sulfate (Feosol) 325 mg PO BID [facility] Last Admin: 10/23/16 18:16 Dose: 325 mg Finasteride (Proscar) 5 mg PO DAILY [facility] Heparin Sodium (Porcine) (Heparin) 5,000 units SC Q8 [facility] Hydromorphone HCl (Dilaudid) 0.5 mg IVP Q4H PRN PRN Reason: Pain, severe (8-10) Last Admin: 10/23/16 17:53 Dose: 0.5 mg Vancomycin HCl 1 gm/ Sodium (Chloride) 250 mls @ 166.7 mls/hr IVPB Q12 [facility] Sodium Chloride (Sodium Chloride 0.9%) 1,000 mls @ 75 mls/hr IV .[id number] [facility] Last Admin: 10/23/16 18:03 Dose: 75 mls/hr Insulin Human Regular (Novolin R) 0 unit SC ACHS [facility] PRN Reason: Protocol Last Admin: 10/23/16 17:53 Dose: 4 unit Metoprolol Tartrate (Lopressor) 25 mg PO BID [facility] Last Admin: 10/23/16 18:16 Dose: 25 mg Mirtazapine (Remeron) 30 mg PO HS [facility] Ondansetron HCl (Zofran Tab) 4 mg PO Q6 PRN PRN Reason: Nausea/Vomiting Last Admin: 10/23/16 17:53 Dose: 4 mg Rosuvastatin Calcium (Crestor) 10 mg PO HS [facility] Tamsulosin HCl (Flomax) 0.4 mg PO DAILY [facility] Physical Exam - Constitutional Appears: Non-toxic, Cachectic, Chronically Ill - Head Exam Head Exam: NORMOCEPHALIC - Eye Exam Eye Exam: PERRL. absent: Scleral icterus - ENT Exam ENT Exam: Mucous Membranes Dry, Normal External Ear Exam - Neck Exam Neck exam: Negative for: Lymphadenopathy, Thyromegaly - Respiratory Exam Respiratory Exam: Decreased Breath Sounds, Clear to Auscultation Bilateral - Cardiovascular Exam Cardiovascular Exam: REGULAR RHYTHM, +S1, +S2 - GI/Abdominal Exam GI & Abdominal Exam: Diminished Bowel Sounds, Soft, Tenderness Additional comments: mild ruq tenderness - Rectal Exam Rectal Exam: Deferred - Exam Exam: NORMAL INSPECTION - Extremities Exam Extremities exam: Positive for: pedal pulses present. Negative for: calf tenderness, pedal edema, tenderness Additional comments: right thigh wound healing well - Back Exam Back exam: absent: CVA tenderness (L), CVA tenderness (R) - Neurological Exam Neurological exam: Alert, CN II-XII Intact, Oriented x3, Reflexes Normal - Psychiatric Exam Psychiatric exam: Normal Mood - Skin Skin Exam: Dry, Intact Results - Vital Signs Recent Vital Signs: Last Vital Signs Temp 97.6 F 10/23/16 18:58 Pulse 72 10/23/16 18:58 Resp 20 10/23/16 18:58 BP 153/89 H 10/23/16 18:58 Pulse Ox 100 10/23/16 18:58 - Labs Result Diagrams: 10/23/16 15:38 10/23/16 15:38 Labs: Laboratory Results - last 24 hr 10/23/16 17:44 POC Glucose (mg/dL) 354 H Assessment & Plan (1) Claudication Status: Acute (2) E coli bacteremia Status: Acute (3) Pseudoaneurysm of femoral artery Status: Acute (4) STEVEN (acute kidney injury) Status: Acute (5) Abdominal pain Status: Acute (6) Anemia Status: Acute (7) Bacteremia Status: Acute (8) 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
--- NOTE | 2016-10-23 21:09 | CP.PCM.CON ---
History of Present Illness - History of Present Illness History of Present Illness: Vascular Surgery Consult note. Dr. Lorenzo 70yo M with PMHx of PAD, HTN, Depression, CAD, Carotid stenosis s/p CEA, DM, BPH here with bacteremia s/p R femoral artery pseudoaneurysm repair. Patient is s/p R femoral emblectomy on 09/22. He returned to the hospital on 10/18 and was found to have a pseudoaneurysm of the R Femoral Artery and was taken to the OR emergent percutaneous endovascular repair with stent. Post-operatively, patient was found to have E.coli bacteremia and was being treated with IV Abx. Patient left against medical advice yesterday to take care of "insurance paperwork." He returns today to continue treatment and management. Currently, he denies any symptoms. He does report intermittent right leg paresthesias. He denies any other complaints. Uses a cane to ambulate. He does continue to abuse tobacco. He also reports intermittent mild RUQ pain and nausea, although he currently denies any abdominal pain, N/V/D. Denies CP/SOB. No headaches. No urinary symptoms. No F/C. PMHx: PAD, HTN, Depression, CAD, Carotid stenosis, DM, BPH PSHx: R Femoral emblectomy 09/22. R Femoral pseudoaneurysm repair 10/18. Carotid endarterectomy. Pancreatic Mass resection Social Hx: Current 3ppd smoker. Former ETOH (none for 10 years), Former cocaine and marijuana use (none for 20yrs) NKDA Review of Systems - Review of Systems All systems: reviewed and no additional remarkable complaints except - Constitutional Constitutional: absent: Chills, Fever - Cardiovascular Cardiovascular: absent: Chest Pain, Dyspnea, Leg Edema - Respiratory Respiratory: absent: Cough, Dyspnea - Gastrointestinal Gastrointestinal: absent: Abdominal Pain, Nausea, Vomiting - Genitourinary Genitourinary: absent: Change in Urinary Stream, Difficulty Urinating - Musculoskeletal Musculoskeletal: absent: Abnormal Gait, Back Pain Past Patient History - Infectious Disease Hx of Infectious Diseases: None - Tetanus Immunizations Tetanus Immunization: Unknown - Past Medical History & Family History Past Medical History?: Yes Past Family History: Reviewed and not pertinent - Past Social History Smoking Status: Heavy Smoker > 10 Cigarettes Daily Alcohol: None Drugs: Denies - CARDIAC Hx Hypertension: Yes - PULMONARY Hx Respiratory Disorders: No - NEUROLOGICAL Hx Syncope: Yes Hx Vertigo: Yes - HEENT Other/Comment: glasses for reading - RENAL Hx Chronic Kidney Disease: No - ENDOCRINE/METABOLIC Hx Endocrine Disorders: Yes Hx Diabetes Mellitus Type 2: Yes - HEMATOLOGICAL/ONCOLOGICAL Hx Anemia: Yes - INTEGUMENTARY Hx Dermatological Problems: No - MUSCULOSKELETAL/RHEUMATOLOGICAL Hx Falls: No - GASTROINTESTINAL Hx Gall Bladder Disease: Yes Hx Pancreatitis: Yes - GENITOURINARY/GYNECOLOGICAL Hx Genitourinary Disorders: Yes Hx Prostate Problems: Yes (BPH) - PSYCHIATRIC Hx Substance Use: Yes (marijuana) - SURGICAL HISTORY Hx Carotid Endarterectomy: Yes (L CEA) - ANESTHESIA Hx Anesthesia: Yes Hx Anesthesia Reactions: No Hx Malignant Hyperthermia: No Has any member of the family had a problem w/ anesthesia?: No Meds Allergies/Adverse Reactions: Allergies Allergy/AdvReac Type Severity Reaction Status Date / Time No Known Allergies Allergy Verified 10/23/16 14:42 - Medications Medications: Current Medications Aspirin (Aspirin Chewable) 81 mg PO DAILY [facility] Clopidogrel Bisulfate (Plavix) 75 mg PO DAILY [facility] Docusate Sodium (Colace) 100 mg PO BID [facility] Last Admin: 10/23/16 18:15 Dose: 100 mg Duloxetine HCl (Cymbalta) 40 mg PO HS [facility] Famotidine (Pepcid) 20 mg IVP DAILY [facility] Last Admin: 10/23/16 17:45 Dose: 20 mg Ferrous Sulfate (Feosol) 325 mg PO BID [facility] Last Admin: 10/23/16 18:16 Dose: 325 mg Finasteride (Proscar) 5 mg PO DAILY [facility] Heparin Sodium (Porcine) (Heparin) 5,000 units SC Q8 [facility] Hydromorphone HCl (Dilaudid) 0.5 mg IVP Q4H PRN PRN Reason: Pain, severe (8-10) Last Admin: 10/23/16 17:53 Dose: 0.5 mg Vancomycin HCl 1 gm/ Sodium (Chloride) 250 mls @ 166.7 mls/hr IVPB Q12 [facility] Sodium Chloride (Sodium Chloride 0.9%) 1,000 mls @ 75 mls/hr IV .[id number] [facility] Last Admin: 10/23/16 18:03 Dose: 75 mls/hr Cefepime HCl 1 gm/ Dextrose 50 mls @ 100 mls/hr IVPB Q12H [facility] Insulin Human Regular (Novolin R) 0 unit SC ACHS [facility] PRN Reason: Protocol Last Admin: 10/23/16 17:53 Dose: 4 unit Metoprolol Tartrate (Lopressor) 25 mg PO BID [facility] Last Admin: 10/23/16 18:16 Dose: 25 mg Mirtazapine (Remeron) 30 mg PO HS [facility] Ondansetron HCl (Zofran Tab) 4 mg PO Q6 PRN PRN Reason: Nausea/Vomiting Last Admin: 10/23/16 17:53 Dose: 4 mg Pneumococcal Polyvalent Vaccine (Pneumovax 23 Vaccine) 0.5 ml IM .ONCE [facility] Stop: 10/25/16 10:01 Rosuvastatin Calcium (Crestor) 10 mg PO HS [facility] Tamsulosin HCl (Flomax) 0.4 mg PO DAILY [facility] Physical Exam - Constitutional Appears: Well, Non-toxic, No Acute Distress - Head Exam Head Exam: ATRAUMATIC, NORMOCEPHALIC - Eye Exam Eye Exam: EOMI - ENT Exam ENT Exam: Mucous Membranes Moist - Neck Exam Neck exam: Positive for: Full Rom - Respiratory Exam Respiratory Exam: NORMAL BREATHING PATTERN. absent: Accessory Muscle Use, Wheezes - Cardiovascular Exam Cardiovascular Exam: absent: JVD - GI/Abdominal Exam GI & Abdominal Exam: Soft. absent: Distended, Guarding, Rebound, Rigid, Tenderness - Extremities Exam Extremities exam: Positive for: normal inspection. Negative for: calf tenderness Additional comments: Right groin incision site clean, dry and intact, no erythema or induration. distal pulses intact. No sensory deficits. No poikilothermia. no calf tenderness. - Neurological Exam Neurological exam: Alert, Oriented x3 - Psychiatric Exam Psychiatric exam: Normal Affect, Normal Mood - Skin Skin Exam: Dry, Intact, Normal Color, Warm Results - Vital Signs Recent Vital Signs: Last Vital Signs Temp 97.6 F 10/23/16 18:58 Pulse 72 10/23/16 18:58 Resp 20 10/23/16 18:58 BP 153/89 H 10/23/16 18:58 Pulse Ox 100 10/23/16 20:25 - Labs Result Diagrams: 10/23/16 15:38 10/23/16 15:38 Labs: Laboratory Results - last 24 hr 10/23/16 17:44 POC Glucose (mg/dL) 354 H Assessment & Plan - Assessment and Plan (Free Text) Assessment: 70yo M with R Femoral A pseudoaneurysm repair w stent on 10/18. Complicated with E.coli bacteremia. Also with intermittent RUQ pain, N. - Recent HIDA positive. Cholelithiasis noted on recent imaging. No current Abdominal pain or associated symptoms - Afebrile - No leukocytosis - Continue IV Abx as per ID - Advance diet as tolerated - continue medical management as per primary - BP control - urge tobacco cessation - GI recs - no plans for EUS/ERCP/MRCP - Recommend out-patient elective cholecystectomy Discussed case with Dr. Maura Garrido PGY1 surgery pager: [phone]
[2016-10-24] MEDS: HYDROmorphone 0.5 mg/0.5 ml ISec IVP PRN ×3 (01:44→17:15)
[2016-10-24] MEDS: (Novolin R) Insulin Human Regular 100 units/ml vial SC SCH ×4 (07:54→21:29)
--- NOTE | 2016-10-24 09:07 | CP.PCM.PN ---
Subjective - Date & Time of Evaluation Date of Evaluation: 10/24/16 Time of Evaluation: 07:40 - Subjective Subjective: Vascular Surgery- Dr. Lorenzo Pt S&E at bedside this AM. No acute events overnight. c/o pain down right leg. Denies F/C CP/SOB N/V Abd pain. Incision on R. Groin C/D/I, no signs of erythema. Objective - Vital Signs/Intake and Output Vital Signs (last 24 hours): Temp Pulse Resp BP Pulse Ox 98 F 61 20 128/76 98 10/24/16 08:14 10/24/16 08:14 10/24/16 08:14 10/24/16 08:14 10/24/16 08:14 - Medications Medications: Current Medications Aspirin (Aspirin Chewable) 81 mg PO DAILY [facility] Clopidogrel Bisulfate (Plavix) 75 mg PO DAILY [facility] Docusate Sodium (Colace) 100 mg PO BID [facility] Last Admin: 10/23/16 18:15 Dose: 100 mg Duloxetine HCl (Cymbalta) 40 mg PO HS [facility] Last Admin: 10/23/16 22:06 Dose: 40 mg Famotidine (Pepcid) 20 mg IVP DAILY [facility] Last Admin: 10/23/16 17:45 Dose: 20 mg Ferrous Sulfate (Feosol) 325 mg PO BID [facility] Last Admin: 10/23/16 18:16 Dose: 325 mg Finasteride (Proscar) 5 mg PO DAILY [facility] Heparin Sodium (Porcine) (Heparin) 5,000 units SC Q8 [facility] Hydromorphone HCl (Dilaudid) 0.5 mg IVP Q4H PRN PRN Reason: Pain, severe (8-10) Last Admin: 10/24/16 01:44 Dose: 0.5 mg Vancomycin HCl 1 gm/ Sodium (Chloride) 250 mls @ 166.7 mls/hr IVPB Q12 [facility] Last Admin: 10/23/16 22:08 Dose: 166.7 mls/hr Sodium Chloride (Sodium Chloride 0.9%) 1,000 mls @ 75 mls/hr IV .[id number] [facility] Last Admin: 10/23/16 18:03 Dose: 75 mls/hr Cefepime HCl 1 gm/ Dextrose 50 mls @ 100 mls/hr IVPB Q12H [facility] Last Admin: 10/23/16 21:33 Dose: 100 mls/hr Insulin Human Regular (Novolin R) 0 unit SC ACHS [facility] PRN Reason: Protocol Last Admin: 10/24/16 07:54 Dose: 3 unit Metoprolol Tartrate (Lopressor) 25 mg PO BID [facility] Last Admin: 10/23/16 18:16 Dose: 25 mg Mirtazapine (Remeron) 30 mg PO HS [facility] Last Admin: 10/23/16 22:06 Dose: 30 mg Ondansetron HCl (Zofran Tab) 4 mg PO Q6 PRN PRN Reason: Nausea/Vomiting Last Admin: 10/23/16 17:53 Dose: 4 mg Pneumococcal Polyvalent Vaccine (Pneumovax 23 Vaccine) 0.5 ml IM .ONCE ONE Stop: 10/25/16 10:01 Rosuvastatin Calcium (Crestor) 10 mg PO HS [facility] Last Admin: 10/23/16 21:34 Dose: 10 mg Tamsulosin HCl (Flomax) 0.4 mg PO DAILY [facility] - Constitutional Appears: No Acute Distress - Eye Exam Eye Exam: EOMI - ENT Exam ENT Exam: Mucous Membranes Moist - Respiratory Exam Respiratory Exam: NORMAL BREATHING PATTERN. absent: Accessory Muscle Use, Rhonchi, Wheezes - Cardiovascular Exam Cardiovascular Exam: +S1, +S2 - GI/Abdominal Exam GI & Abdominal Exam: Soft. absent: Distended, Tenderness - Extremities Exam Extremities Exam: absent: Joint Swelling Additional comments: +1 Right DP; right groin incision medial side hard, no erythema or induration - Neurological Exam Neurological Exam: Alert, Awake, Oriented x3 - Skin Skin Exam: Normal Color Assessment and Plan - Assessment and Plan (Free Text) Assessment: 70yo M with R Femoral A pseudoaneurysm repair w stent on 10/18. Complicated with E.coli bacteremia. Plan: - c/w IV abx - advance diet as tolerated - no acute surgical intervention at this time * outpatient elective cholecystectomy - further recs per Dr. Maura Grant PGY1
[2016-10-24] MEDS: Sodium Chloride 0.9% 1,000 ML IV SCH ×2 (13:17→21:30)
--- NOTE | 2016-10-24 15:39 | CP.PCM.PN ---
<Karis Guillen - Last Filed: 10/24/16 20:10> Subjective - Date & Time of Evaluation Date of Evaluation: 10/24/16 Time of Evaluation: 15:39 - Subjective Subjective: Patient seen and examined at bedside. Patient here to finish treatment for E. coli bacteremia after stent placement for femoral artery pseudoaneurysm. Patient says he feels the same today with no new complaints. Patient still having chills and right leg pain with dorsal foot pain on the right. Patient also still having RUQ pain. Pt denies CP/SOB. Objective - Vital Signs/Intake and Output Vital Signs (last 24 hours): Temp Pulse Resp BP Pulse Ox 98 F 61 20 124/80 98 10/24/16 08:14 10/24/16 08:14 10/24/16 08:14 10/24/16 10:20 10/24/16 08:14 Intake and Output: 10/24/16 10/24/16 06:59 18:59 Output Total 600 Balance -600 - Medications Medications: Current Medications Aspirin (Aspirin Chewable) 81 mg PO DAILY [facility] Last Admin: 10/24/16 10:20 Dose: 81 mg Clopidogrel Bisulfate (Plavix) 75 mg PO DAILY [facility] Last Admin: 10/24/16 10:45 Dose: 75 mg Docusate Sodium (Colace) 100 mg PO BID [facility] Last Admin: 10/24/16 10:21 Dose: 100 mg Duloxetine HCl (Cymbalta) 40 mg PO HS [facility] Last Admin: 10/23/16 22:06 Dose: 40 mg Famotidine (Pepcid) 20 mg IVP DAILY [facility] Last Admin: 10/24/16 10:21 Dose: 20 mg Ferrous Sulfate (Feosol) 325 mg PO BID [facility] Last Admin: 10/24/16 10:21 Dose: 325 mg Finasteride (Proscar) 5 mg PO DAILY [facility] Last Admin: 10/24/16 10:46 Dose: 5 mg Heparin Sodium (Porcine) (Heparin) 5,000 units SC Q8 [facility] Hydromorphone HCl (Dilaudid) 0.5 mg IVP Q4H PRN PRN Reason: Pain, severe (8-10) Last Admin: 10/24/16 12:12 Dose: 0.5 mg Vancomycin HCl 1 gm/ Sodium (Chloride) 250 mls @ 166.7 mls/hr IVPB Q12 [facility] Last Admin: 10/24/16 10:30 Dose: 166.7 mls/hr Sodium Chloride (Sodium Chloride 0.9%) 1,000 mls @ 75 mls/hr IV .[id number] [facility] Last Admin: 10/24/16 13:17 Dose: 75 mls/hr Cefepime HCl 1 gm/ Dextrose 50 mls @ 100 mls/hr IVPB Q12H [facility] Last Admin: 10/24/16 09:41 Dose: 100 mls/hr Insulin Human Regular (Novolin R) 0 unit SC ACHS [facility] PRN Reason: Protocol Last Admin: 10/24/16 12:17 Dose: 2 unit Metoprolol Tartrate (Lopressor) 25 mg PO BID [facility] Last Admin: 10/24/16 10:20 Dose: 25 mg Mirtazapine (Remeron) 30 mg PO [facility] Last Admin: 10/23/16 22:06 Dose: 30 mg Ondansetron HCl (Zofran Tab) 4 mg PO Q6 PRN PRN Reason: Nausea/Vomiting Last Admin: 10/23/16 17:53 Dose: 4 mg Pneumococcal Polyvalent Vaccine (Pneumovax 23 Vaccine) 0.5 ml IM .ONCE ONE Stop: 10/25/16 10:01 Rosuvastatin Calcium (Crestor) 10 mg PO [facility] Last Admin: 10/23/16 21:34 Dose: 10 mg Tamsulosin HCl (Flomax) 0.4 mg PO DAILY [facility] Last Admin: 10/24/16 10:20 Dose: 0.4 mg - Constitutional Appears: Non-toxic, No Acute Distress - Head Exam Head Exam: NORMAL INSPECTION - Eye Exam Eye Exam: EOMI - ENT Exam ENT Exam: Mucous Membranes Moist - Respiratory Exam Respiratory Exam: NORMAL BREATHING PATTERN. absent: Accessory Muscle Use, Respiratory Distress, Stridor - Cardiovascular Exam Cardiovascular Exam: REGULAR RHYTHM, +S1, +S2 - GI/Abdominal Exam GI & Abdominal Exam: Soft, Tenderness (RUQ with deep palpation ), Normal Bowel Sounds - Extremities Exam Extremities Exam: Calf Tenderness, Tenderness (right foot dorsal ) Additional comments: mild swelling and erythema of right groin - Neurological Exam Neurological Exam: Alert, Awake - Psychiatric Exam Psychiatric exam: Normal Affect, Normal Mood - Skin Skin Exam: Dry, Intact, Warm Assessment and Plan - Assessment and Plan (Free Text) Assessment: 1. E coli bacteremia -ID consulted (Sharon) -Cefepime IV q12h -Vanco 1g Q12 -NS 75 cc/hr 2. Leg pain/groin pain -sx consulted. (Dr. Lorenzo): Recommend out-patient elective cholecystectomy -dilaudid for pain -continue asa -continue plavix -continue crestor 3. Nausea -zofran -continue pepcid -continue colace 4. HTN -continue lopressor 5. hx of DM continue accuchecks continue sliding scale 6. hx of anemia -continue ferrous sulfate 7. hx of BPH -continue proscar -continue flomax 8. GI/DVT ppx -continue pepcid <Pablo Junior - Last Filed: 10/25/16 15:55> Objective - Vital Signs/Intake and Output Vital Signs (last 24 hours): Temp Pulse Resp BP Pulse Ox 98.5 F 80 20 170/80 H 98 10/25/16 10:00 10/25/16 10:00 10/25/16 10:00 10/25/16 10:00 10/25/16 10:00 Intake and Output: 10/25/16 10/25/16 06:59 18:59 Intake Total 1800 Output Total 1000 Balance 800 - Medications Medications: Current Medications Aspirin (Aspirin Chewable) 81 mg PO DAILY [facility] Last Admin: 10/25/16 09:09 Dose: 81 mg Clopidogrel Bisulfate (Plavix) 75 mg PO DAILY [facility] Last Admin: 10/25/16 09:09 Dose: 75 mg Docusate Sodium (Colace) 100 mg PO BID [facility] Last Admin: 10/25/16 09:09 Dose: 100 mg Duloxetine HCl (Cymbalta) 40 mg PO HS [facility] Last Admin: 10/24/16 21:28 Dose: 40 mg Famotidine (Pepcid) 20 mg IVP DAILY [facility] Last Admin: 10/25/16 09:09 Dose: 20 mg Ferrous Sulfate (Feosol) 325 mg PO BID [facility] Last Admin: 10/25/16 09:09 Dose: 325 mg Finasteride (Proscar) 5 mg PO DAILY [facility] Last Admin: 10/25/16 09:09 Dose: 5 mg Heparin Sodium (Porcine) (Heparin) 5,000 units SC Q8 [facility] Hydromorphone HCl (Dilaudid) 0.5 mg IVP Q4H PRN PRN Reason: Pain, severe (8-10) Last Admin: 10/25/16 13:50 Dose: 0.5 mg Vancomycin HCl 1 gm/ Sodium (Chloride) 250 mls @ 166.7 mls/hr IVPB Q12 [facility] Last Admin: 10/25/16 09:28 Dose: 166.7 mls/hr Sodium Chloride (Sodium Chloride 0.9%) 1,000 mls @ 75 mls/hr IV .[id number] [facility] Last Admin: 10/25/16 09:26 Dose: Not Given Cefepime HCl 1 gm/ Dextrose 50 mls @ 100 mls/hr IVPB Q12H [facility] Last Admin: 10/25/16 08:14 Dose: 100 mls/hr Insulin Aspart (Novolog) 6 unit SC ACLD [facility] Insulin Aspart (Novolog) 10 unit SC ACB [facility] Insulin Aspart (Novolog) 0 unit SC ACHS [facility] PRN Reason: Protocol Insulin Detemir (Levemir) 36 unit SC [facility] Metoprolol Tartrate (Lopressor) 25 mg PO BID [facility] Last Admin: 10/25/16 09:00 Dose: 25 mg Mirtazapine (Remeron) 30 mg PO [facility] Last Admin: 10/24/16 21:28 Dose: 30 mg Ondansetron HCl (Zofran Tab) 4 mg PO Q6 PRN PRN Reason: Nausea/Vomiting Last Admin: 10/23/16 17:53 Dose: 4 mg Rosuvastatin Calcium (Crestor) 10 mg PO [facility] Last Admin: 10/24/16 21:27 Dose: 10 mg Tamsulosin HCl (Flomax) 0.4 mg PO DAILY [facility] Last Admin: 10/25/16 09:09 Dose: 0.4 mg - Labs Labs: 10/25/16 11:00 10/25/16 11:00 Attending/Attestation - Attestation I have personally seen and examined this patient.: Yes I have fully participated in the care of the patient.: Yes I have reviewed all pertinent clinical information, including history, physical exam and plan: Yes Notes (Text): 10/25/16 15:54 Patient was seen and examined at bedside with the resident Patient still complains of pain in the right groin at the site of the surgery Patient is on IV antibiotics for bacteremia as per recommendations of ID We will repeat blood cultures I discussed the plan of care with the resident and agree with the assessment and plan documented.
[2016-10-25] MEDS: (Novolin R) Insulin Human Regular 100 units/ml vial SC SCH ×3 (07:54→12:07)
[2016-10-25] MEDS: HYDROmorphone 0.5 mg/0.5 ml ISec IVP PRN ×2 (08:54→13:50)
[2016-10-25] MEDS: Sodium Chloride 0.9% 1,000 ML IV SCH ×2 (09:26→21:34)
[2016-10-25] MEDS ORDERED: Pneumococcal 23-Valent Vaccine IM ONE (10:00)
[2016-10-25 11:03] LABS: BASO # 0.1 K/uL (0.0-0.2); EOS # 0.5 K/uL (0.0-0.7); EOS % 8.5 % (0.0-4.0); HEMATOCRIT 29.6 % (35.0-51.0); LYMPH # 0.8 K/uL (1.0-4.3); LYMPH % 12.2 % (20.0-40.0); MEAN CELL VOLUME 86.7 fL (80.0-94.0); MEAN CORPUSCULAR HEMOGLOBIN 28.2 pg (27.0-31.0); MEAN CORPUSCULAR HGB CONC 32.6 g/dL (33.0-37.0); MEAN PLATELET VOLUME 7.6 fL (7.2-11.7); MONO # 0.4 K/uL (0.0-0.8); MONO % 6.5 % (0.0-10.0); RED CELL DISTRIBUTION WIDTH 17.6 % (11.5-14.5); WHITE BLOOD COUNT 6.2 K/uL (4.8-10.8)
--- NOTE | 2016-10-25 11:13 | CP.PCM.PN ---
Subjective - Date & Time of Evaluation Date of Evaluation: 10/25/16 Time of Evaluation: 06:55 - Subjective Subjective: Vascular Surgery- Dr. Lorenzo Pt S&E at bedside this AM. No acute events overnight. Denies F/C CP/SOB N/V Abd pain. Incision on R. Groin C/D/I, no signs of erythema or induration. Objective - Vital Signs/Intake and Output Vital Signs (last 24 hours): Temp Pulse Resp BP Pulse Ox 97.3 F L 65 16 167/84 H 98 10/25/16 00:00 10/25/16 00:00 10/25/16 00:00 10/25/16 09:00 10/25/16 00:00 Intake and Output: 10/25/16 10/25/16 06:59 18:59 Intake Total 1800 Output Total 1000 Balance 800 - Medications Medications: Current Medications Aspirin (Aspirin Chewable) 81 mg PO DAILY [facility] Last Admin: 10/25/16 09:09 Dose: 81 mg Clopidogrel Bisulfate (Plavix) 75 mg PO DAILY [facility] Last Admin: 10/25/16 09:09 Dose: 75 mg Docusate Sodium (Colace) 100 mg PO BID [facility] Last Admin: 10/25/16 09:09 Dose: 100 mg Duloxetine HCl (Cymbalta) 40 mg PO HS [facility] Last Admin: 10/24/16 21:28 Dose: 40 mg Famotidine (Pepcid) 20 mg IVP DAILY [facility] Last Admin: 10/25/16 09:09 Dose: 20 mg Ferrous Sulfate (Feosol) 325 mg PO BID [facility] Last Admin: 10/25/16 09:09 Dose: 325 mg Finasteride (Proscar) 5 mg PO DAILY [facility] Last Admin: 10/25/16 09:09 Dose: 5 mg Heparin Sodium (Porcine) (Heparin) 5,000 units SC Q8 [facility] Hydromorphone HCl (Dilaudid) 0.5 mg IVP Q4H PRN PRN Reason: Pain, severe (8-10) Last Admin: 10/25/16 08:54 Dose: 0.5 mg Vancomycin HCl 1 gm/ Sodium (Chloride) 250 mls @ 166.7 mls/hr IVPB Q12 [facility] Last Admin: 10/25/16 09:28 Dose: 166.7 mls/hr Sodium Chloride (Sodium Chloride 0.9%) 1,000 mls @ 75 mls/hr IV .[id number] [facility] Last Admin: 10/25/16 09:26 Dose: Not Given Cefepime HCl 1 gm/ Dextrose 50 mls @ 100 mls/hr IVPB Q12H [facility] Last Admin: 10/25/16 08:14 Dose: 100 mls/hr Insulin Human Regular (Novolin R) 0 unit SC ACHS [facility] PRN Reason: Protocol Last Admin: 10/25/16 08:14 Dose: 3 unit Metoprolol Tartrate (Lopressor) 25 mg PO BID [facility] Last Admin: 10/25/16 09:00 Dose: 25 mg Mirtazapine (Remeron) 30 mg PO HS [facility] Last Admin: 10/24/16 21:28 Dose: 30 mg Ondansetron HCl (Zofran Tab) 4 mg PO Q6 PRN PRN Reason: Nausea/Vomiting Last Admin: 10/23/16 17:53 Dose: 4 mg Rosuvastatin Calcium (Crestor) 10 mg PO HS [facility] Last Admin: 10/24/16 21:27 Dose: 10 mg Tamsulosin HCl (Flomax) 0.4 mg PO DAILY [facility] Last Admin: 10/25/16 09:09 Dose: 0.4 mg - Constitutional Appears: No Acute Distress - Eye Exam Eye Exam: EOMI - Respiratory Exam Respiratory Exam: NORMAL BREATHING PATTERN. absent: Accessory Muscle Use, Rhonchi, Wheezes - Cardiovascular Exam Cardiovascular Exam: +S1, +S2 - GI/Abdominal Exam GI & Abdominal Exam: Soft. absent: Distended, Tenderness - Neurological Exam Neurological Exam: Alert, Awake, Oriented x3 - Psychiatric Exam Psychiatric exam: Normal Affect Assessment and Plan - Assessment and Plan (Free Text) Assessment: 70yo M with R Femoral A pseudoaneurysm repair w stent on 10/18. Complicated with E.coli bacteremia. Plan: - c/w IV abx - no acute surgical intervention at this time * outpatient elective cholecystectomy Pablo Grant PGY1
[2016-10-25 11:14] LABS: ALB/GLOB RATIO 0.8 (1.0-2.1); ALKALINE PHOSPHATASE 105 U/L (38-126); ALT/SGPT 27 U/L (21-72); AST/SGOT 11 U/L (17-59); BILIRUBIN,TOTAL 0.3 mg/dL (0.2-1.3); BLOOD UREA NITROGEN 18 mg/dL (9-20); CALCIUM 8.5 mg/dl (8.6-10.4); CARBON DIOXIDE 22 mmol/L (22-30); CHLORIDE 104 mmol/L (98-107); GFR AFRICAN-AMERICAN > 60; GLUCOSE,RANDOM 302 mg/dL (75-110); SODIUM 137 mmol/L (132-148); TOTAL PROTEIN 6.1 g/dL (6.3-8.3)
[2016-10-25] MEDS ORDERED: Insulin Detemir 100 units/ml Vial (Levemir) SC SCH (13:00)
[2016-10-25] MEDS: LIPASE/PROTEASE/AMYLASE 4,200 U ECC PO SCH ×2 (13:45→17:46)
[2016-10-25] MEDS: (Novolog) Insulin Aspart, Recombinant 100 u/ml 10 ml vial SC SCH ×3 (16:30→21:30)
--- NOTE | 2016-10-25 19:49 | CP.PCM.PN ---
<Karis Swain DO - Last Filed: 10/25/16 19:39> Subjective - Date & Time of Evaluation Date of Evaluation: 10/25/16 Time of Evaluation: 11:50 - Subjective Subjective: Medicine progress note for Dr. Junior Patient seen and examined. Patient with complaint of pain in right leg. Patient also concerned about options for physical therapy when he leaves the hospital as he does not have full function and mobility of his leg back. Patient states he has been dependent on friends for transportation. Objective - Vital Signs/Intake and Output Vital Signs (last 24 hours): Temp Pulse Resp BP Pulse Ox 98.3 F 71 20 125/71 99 10/25/16 16:00 10/25/16 16:00 10/25/16 16:00 10/25/16 17:54 10/25/16 16:00 Intake and Output: 10/25/16 10/26/16 18:59 06:59 Intake Total 1680 Balance 1680 - Medications Medications: Current Medications Aspirin (Aspirin Chewable) 81 mg PO DAILY [facility] Last Admin: 10/25/16 09:09 Dose: 81 mg Clopidogrel Bisulfate (Plavix) 75 mg PO DAILY [facility] Last Admin: 10/25/16 09:09 Dose: 75 mg Docusate Sodium (Colace) 100 mg PO BID [facility] Last Admin: 10/25/16 17:45 Dose: 100 mg Duloxetine HCl (Cymbalta) 40 mg PO HS [facility] Last Admin: 10/24/16 21:28 Dose: 40 mg Famotidine (Pepcid) 20 mg IVP DAILY [facility] Last Admin: 10/25/16 09:09 Dose: 20 mg Ferrous Sulfate (Feosol) 325 mg PO BID [facility] Last Admin: 10/25/16 17:56 Dose: 325 mg Finasteride (Proscar) 5 mg PO DAILY [facility] Last Admin: 10/25/16 09:09 Dose: 5 mg Heparin Sodium (Porcine) (Heparin) 5,000 units SC Q8 [facility] Hydromorphone HCl (Dilaudid) 0.5 mg IVP Q4H PRN PRN Reason: Pain, severe (8-10) Last Admin: 10/25/16 13:50 Dose: 0.5 mg Vancomycin HCl 1 gm/ Sodium (Chloride) 250 mls @ 166.7 mls/hr IVPB Q12 [facility] Last Admin: 10/25/16 09:28 Dose: 166.7 mls/hr Sodium Chloride (Sodium Chloride 0.9%) 1,000 mls @ 75 mls/hr IV .[id number] [facility] Last Admin: 10/25/16 09:26 Dose: Not Given Cefepime HCl 1 gm/ Dextrose 50 mls @ 100 mls/hr IVPB Q12H [facility] Last Admin: 10/25/16 08:14 Dose: 100 mls/hr Insulin Aspart (Novolog) 6 unit SC ACLD [facility] Last Admin: 10/25/16 16:30 Dose: 6 unit Insulin Aspart (Novolog) 10 unit SC ACB [facility] Insulin Aspart (Novolog) 0 unit SC ACHS [facility] PRN Reason: Protocol Last Admin: 10/25/16 16:30 Dose: 4 unit Insulin Detemir (Levemir) 36 unit SC [facility] Metoprolol Tartrate (Lopressor) 25 mg PO BID [facility] Last Admin: 10/25/16 17:54 Dose: 25 mg Mirtazapine (Remeron) 30 mg PO [facility] Last Admin: 10/24/16 21:28 Dose: 30 mg Ondansetron HCl (Zofran Tab) 4 mg PO Q6 PRN PRN Reason: Nausea/Vomiting Last Admin: 10/23/16 17:53 Dose: 4 mg Rosuvastatin Calcium (Crestor) 10 mg PO [facility] Last Admin: 10/24/16 21:27 Dose: 10 mg Tamsulosin HCl (Flomax) 0.4 mg PO DAILY [facility] Last Admin: 10/25/16 09:09 Dose: 0.4 mg - Labs Labs: 10/25/16 11:00 10/25/16 11:00 - Constitutional Appears: Non-toxic, No Acute Distress - Head Exam Head Exam: ATRAUMATIC, NORMOCEPHALIC - Eye Exam Eye Exam: EOMI - ENT Exam ENT Exam: Mucous Membranes Moist - Respiratory Exam Respiratory Exam: Clear to Ausculation Bilateral, NORMAL BREATHING PATTERN - Cardiovascular Exam Cardiovascular Exam: +S1, +S2 - GI/Abdominal Exam GI & Abdominal Exam: Soft, Tenderness (RUQ), Normal Bowel Sounds - Extremities Exam Additional comments: right leg tender, warm on palpation, good ROM - Neurological Exam Neurological Exam: Alert, Awake - Psychiatric Exam Psychiatric exam: Normal Affect - Skin Skin Exam: Warm Assessment and Plan - Assessment and Plan (Free Text) Assessment: 1. E coli bacteremia -ID consulted (Sharon) -Cefepime IV q12h -Vanco 1g Q12 -NS 75 cc/hr 2. Pseudoaneurysm -sx consulted. (Dr. Lorenzo): -pt s/p R Femoral A pseudoaneurysm repair w stent on 10/18 -dilaudid for pain -continue asa -continue plavix -continue crestor 3. Abdominal pain Recent HIDA positive. Cholelithiasis noted on recent imaging. Recommend out-patient elective cholecystectomy 4. Nausea -zofran -continue pepcid -continue colace 5. HTN -continue lopressor 6. hx of DM continue accuchecks continue sliding scale insulin aspart 10u ACB insulin aspart 6u ACLD levemir 36u HS 7. hx of anemia -continue ferrous sulfate 8. hx of BPH -continue proscar -continue flomax 9. hx pancreatic insufficiency - start creon 10. GI/DVT ppx -continue pepcid <Pablo Junior - Last Filed: 10/25/16 23:45> Objective - Vital Signs/Intake and Output Vital Signs (last 24 hours): Temp Pulse Resp BP Pulse Ox 98.3 F 71 20 125/71 99 10/25/16 16:00 10/25/16 16:00 10/25/16 16:00 10/25/16 17:54 10/25/16 16:00 Intake and Output: 10/25/16 10/26/16 18:59 06:59 Intake Total 1680 600 Balance 1680 600 - Medications Medications: Current Medications Aspirin (Aspirin Chewable) 81 mg PO DAILY [facility] Last Admin: 10/25/16 09:09 Dose: 81 mg Clopidogrel Bisulfate (Plavix) 75 mg PO DAILY [facility] Last Admin: 10/25/16 09:09 Dose: 75 mg Docusate Sodium (Colace) 100 mg PO BID [facility] Last Admin: 10/25/16 17:45 Dose: 100 mg Duloxetine HCl (Cymbalta) 40 mg PO HS [facility] Last Admin: 10/25/16 21:31 Dose: 40 mg Famotidine (Pepcid) 20 mg IVP DAILY [facility] Last Admin: 10/25/16 09:09 Dose: 20 mg Ferrous Sulfate (Feosol) 325 mg PO BID [facility] Last Admin: 10/25/16 17:56 Dose: 325 mg Finasteride (Proscar) 5 mg PO DAILY [facility] Last Admin: 10/25/16 09:09 Dose: 5 mg Heparin Sodium (Porcine) (Heparin) 5,000 units SC Q8 [facility] Hydromorphone HCl (Dilaudid) 0.5 mg IVP Q4H PRN PRN Reason: Pain, severe (8-10) Last Admin: 10/25/16 13:50 Dose: 0.5 mg Vancomycin HCl 1 gm/ Sodium (Chloride) 250 mls @ 166.7 mls/hr IVPB Q12 [facility] Last Admin: 10/25/16 21:29 Dose: 166.7 mls/hr Cefepime HCl 1 gm/ Dextrose 50 mls @ 100 mls/hr IVPB Q12H [facility] Last Admin: 10/25/16 21:31 Dose: 100 mls/hr Insulin Aspart (Novolog) 6 unit SC ACLD [facility] Last Admin: 10/25/16 16:30 Dose: 6 unit Insulin Aspart (Novolog) 10 unit SC ACB [facility] Insulin Aspart (Novolog) 0 unit SC ACHS [facility] PRN Reason: Protocol Last Admin: 10/25/16 21:30 Dose: Not Given Insulin Detemir (Levemir) 36 unit SC HS [facility] Last Admin: 10/25/16 21:43 Dose: 36 unit Metoprolol Tartrate (Lopressor) 25 mg PO BID [facility] Last Admin: 10/25/16 17:54 Dose: 25 mg Mirtazapine (Remeron) 30 mg PO HS [facility] Last Admin: 10/25/16 21:31 Dose: 30 mg Ondansetron HCl (Zofran Tab) 4 mg PO Q6 PRN PRN Reason: Nausea/Vomiting Last Admin: 10/23/16 17:53 Dose: 4 mg Rosuvastatin Calcium (Crestor) 10 mg PO HS [facility] Last Admin: 10/25/16 21:30 Dose: 10 mg Tamsulosin HCl (Flomax) 0.4 mg PO DAILY [facility] Last Admin: 10/25/16 09:09 Dose: 0.4 mg - Labs Labs: 10/25/16 11:00 10/25/16 11:00 Attending/Attestation - Attestation I have personally seen and examined this patient.: Yes I have fully participated in the care of the patient.: Yes I have reviewed all pertinent clinical information, including history, physical exam and plan: Yes Notes (Text): 10/25/16 23:44 patient was seen and examined at bedside. Patient stated that he is feeling better. States that the pain in the surgical site is improved. We will continue IV antibiotics for bacteremia We will start the patient on his home dose of insulin for optimal sugar control. We will titrate the medication as needed I discussed the plan of care with the rest and agree with the assessment been documented.
[2016-10-25] MEDS: Insulin Detemir 100 units/ml Vial (Levemir) SC SCH (21:43)
[2016-10-26] MEDS: (Novolog) Insulin Aspart, Recombinant 100 u/ml 10 ml vial SC SCH ×7 (07:30→21:34)
[2016-10-26 08:17] LABS: BASO # 0.1 K/uL (0.0-0.2); BASO % 0.7 % (0.0-2.0); EOS # 0.4 K/uL (0.0-0.7); EOS % 4.3 % (0.0-4.0); HEMATOCRIT 31.1 % (35.0-51.0); LYMPH % 12.3 % (20.0-40.0); MEAN CELL VOLUME 85.5 fL (80.0-94.0); MEAN CORPUSCULAR HEMOGLOBIN 28.6 pg (27.0-31.0); MEAN CORPUSCULAR HGB CONC 33.4 g/dL (33.0-37.0); MEAN PLATELET VOLUME 7.8 fL (7.2-11.7); MONO # 0.4 K/uL (0.0-0.8); MONO % 5.1 % (0.0-10.0); RED CELL DISTRIBUTION WIDTH 17.4 % (11.5-14.5); WHITE BLOOD COUNT 8.2 K/uL (4.8-10.8)
[2016-10-26 08:44] LABS: ALKALINE PHOSPHATASE 117 U/L (38-126); ALT/SGPT 24 U/L (21-72); AST/SGOT 13 U/L (17-59); BILIRUBIN,TOTAL 0.4 mg/dL (0.2-1.3); BLOOD UREA NITROGEN 20 mg/dL (9-20); CALCIUM 8.9 mg/dl (8.6-10.4); CARBON DIOXIDE 17 mmol/L (22-30); CHLORIDE 105 mmol/L (98-107); GFR AFRICAN-AMERICAN > 60; GLUCOSE,RANDOM 230 mg/dL (75-110); POTASSIUM 4.5 mmol/L (3.6-5.2); SODIUM 135 mmol/L (132-148); TOTAL PROTEIN 6.3 g/dL (6.3-8.3)
--- NOTE | 2016-10-26 09:15 | CP.PCM.PN ---
<Marilyn Rico - Last Filed: 10/26/16 10:28> Subjective - Date & Time of Evaluation Date of Evaluation: 10/26/16 Time of Evaluation: 09:00 - Subjective Subjective: Medicine Progress Note: Patient was seen and examined in the AM at bedside. Patient states he continues to have minor pain in his right leg. Patient states he had a big bowel movement yesterday and during the bowel movement he was very constipated. Patient states he usually has a bowel movement only once a week due to his hemorrhoids. Patient states he has followed up in the past with a surgeon but will follow up again once he is discharged. Patient is worried about planning ahead for change of his living situation because he does not want to burden his family and friends. Objective - Vital Signs/Intake and Output Vital Signs (last 24 hours): Temp Pulse Resp BP Pulse Ox 98.1 F 71 20 167/78 H 98 10/26/16 00:00 10/26/16 00:00 10/26/16 00:00 10/26/16 00:00 10/26/16 00:00 Intake and Output: 10/26/16 10/26/16 06:59 18:59 Intake Total 1200 Output Total 1650 Balance -450 - Medications Medications: Current Medications Aspirin (Aspirin Chewable) 81 mg PO DAILY [facility] Last Admin: 10/25/16 09:09 Dose: 81 mg Clopidogrel Bisulfate (Plavix) 75 mg PO DAILY [facility] Last Admin: 10/25/16 09:09 Dose: 75 mg Docusate Sodium (Colace) 100 mg PO BID [facility] Last Admin: 10/25/16 17:45 Dose: 100 mg Duloxetine HCl (Cymbalta) 40 mg PO HS [facility] Last Admin: 10/25/16 21:31 Dose: 40 mg Famotidine (Pepcid) 20 mg IVP DAILY [facility] Last Admin: 10/25/16 09:09 Dose: 20 mg Ferrous Sulfate (Feosol) 325 mg PO BID [facility] Last Admin: 10/25/16 17:56 Dose: 325 mg Finasteride (Proscar) 5 mg PO DAILY [facility] Last Admin: 10/25/16 09:09 Dose: 5 mg Heparin Sodium (Porcine) (Heparin) 5,000 units SC Q8 [facility] Hydromorphone HCl (Dilaudid) 0.5 mg IVP Q4H PRN PRN Reason: Pain, severe (8-10) Last Admin: 10/25/16 13:50 Dose: 0.5 mg Vancomycin HCl 1 gm/ Sodium (Chloride) 250 mls @ 166.7 mls/hr IVPB Q12 [facility] Last Admin: 10/25/16 21:29 Dose: 166.7 mls/hr Cefepime HCl 1 gm/ Dextrose 50 mls @ 100 mls/hr IVPB Q12H [facility] Last Admin: 10/25/16 21:31 Dose: 100 mls/hr Insulin Aspart (Novolog) 6 unit SC ACLD [facility] Last Admin: 10/25/16 16:30 Dose: 6 unit Insulin Aspart (Novolog) 10 unit SC ACB [facility] Insulin Aspart (Novolog) 0 unit SC ACHS [facility] PRN Reason: Protocol Last Admin: 10/25/16 21:30 Dose: Not Given Insulin Detemir (Levemir) 36 unit SC HS [facility] Last Admin: 10/25/16 21:43 Dose: 36 unit Metoprolol Tartrate (Lopressor) 25 mg PO BID [facility] Last Admin: 10/25/16 17:54 Dose: 25 mg Mirtazapine (Remeron) 30 mg PO [facility] Last Admin: 10/25/16 21:31 Dose: 30 mg Ondansetron HCl (Zofran Tab) 4 mg PO Q6 PRN PRN Reason: Nausea/Vomiting Last Admin: 10/23/16 17:53 Dose: 4 mg Rosuvastatin Calcium (Crestor) 10 mg PO [facility] Last Admin: 10/25/16 21:30 Dose: 10 mg Tamsulosin HCl (Flomax) 0.4 mg PO DAILY [facility] Last Admin: 10/25/16 09:09 Dose: 0.4 mg - Labs Labs: 10/26/16 08:05 10/26/16 08:05 - Constitutional Appears: Well - Head Exam Head Exam: ATRAUMATIC, NORMAL INSPECTION, NORMOCEPHALIC - Eye Exam Eye Exam: EOMI, Normal appearance, PERRL Pupil Exam: NORMAL ACCOMODATION, PERRL - ENT Exam ENT Exam: Mucous Membranes Moist - Respiratory Exam Respiratory Exam: Clear to Ausculation Bilateral, NORMAL BREATHING PATTERN - Cardiovascular Exam Cardiovascular Exam: REGULAR RHYTHM, RRR, +S1, +S2 - GI/Abdominal Exam GI & Abdominal Exam: Soft, Normal Bowel Sounds. absent: Tenderness - Extremities Exam Extremities Exam: Tenderness (right groin s/p R Femoral A pseudoaneurysm repair w stent on 10/18) - Neurological Exam Neurological Exam: Alert, Awake, Oriented x3 - Psychiatric Exam Psychiatric exam: Normal Affect, Normal Mood - Skin Skin Exam: Normal Color, Warm Assessment and Plan - Assessment and Plan (Free Text) Plan: 1. E coli bacteremia -ID consulted (Sharon) --> help appreciated -Cefepime IV q12h -Vanco 1g Q12 -NS 75 cc/hr 2. Pseudoaneurysm -sx consulted. (Dr. Lorenzo): -pt s/p R Femoral A pseudoaneurysm repair w stent on 10/18 -dilaudid for pain -continue asa -continue plavix -continue crestor 3. Abdominal pain Recent HIDA positive. Cholelithiasis noted on recent imaging. Recommend out-patient elective cholecystectomy 4. Nausea -zofran -continue pepcid -continue colace 5. HTN -continue lopressor 6. hx of DM continue accuchecks continue sliding scale insulin aspart 10u ACB insulin aspart 6u ACLD levemir 36u HS 7. hx of anemia -continue ferrous sulfate 8. hx of BPH -continue proscar -continue flomax 9. hx pancreatic insufficiency - start creon 10. GI/DVT ppx -continue pepcid - PT recommends TCU - Case management consult - for TCU placement Case Discussed with Dr. Vernon Rico PGY-1 <Pablo Junior M - Last Filed: 10/26/16 15:00> Objective - Vital Signs/Intake and Output Vital Signs (last 24 hours): Temp Pulse Resp BP Pulse Ox 97.6 F 75 20 168/78 H 100 10/26/16 08:00 10/26/16 08:00 10/26/16 08:00 10/26/16 10:04 10/26/16 08:00 Intake and Output: 10/26/16 10/26/16 06:59 18:59 Intake Total 1200 Output Total 1650 Balance -450 - Medications Medications: Current Medications Aspirin (Aspirin Chewable) 81 mg PO DAILY [facility] Last Admin: 10/26/16 10:04 Dose: 81 mg Bisacodyl (Dulcolax) 5 mg PO DAILY PRN PRN Reason: constipation Clopidogrel Bisulfate (Plavix) 75 mg PO DAILY [facility] Last Admin: 10/26/16 10:07 Dose: 75 mg Docusate Sodium (Colace) 100 mg PO BID [facility] Last Admin: 10/26/16 10:04 Dose: 100 mg Duloxetine HCl (Cymbalta) 40 mg PO HS [facility] Last Admin: 10/25/16 21:31 Dose: 40 mg Famotidine (Pepcid) 20 mg PO DAILY [facility] Ferrous Sulfate (Feosol) 325 mg PO BID [facility] Last Admin: 10/26/16 10:04 Dose: 325 mg Finasteride (Proscar) 5 mg PO DAILY [facility] Last Admin: 10/26/16 10:04 Dose: 5 mg Heparin Sodium (Porcine) (Heparin) 5,000 units SC Q8 [facility] Hydrocortisone (Anusol-Hc) 0 gm [place] BID [facility] Last Admin: 10/26/16 10:15 Dose: 1 units Hydromorphone HCl (Dilaudid) 0.5 mg IVP Q4H PRN PRN Reason: Pain, severe (8-10) Last Admin: 10/26/16 10:11 Dose: 0.5 mg Vancomycin HCl 1 gm/ Sodium (Chloride) 250 mls @ 166.7 mls/hr IVPB Q12 [facility] Last Admin: 10/26/16 09:58 Dose: 166.7 mls/hr Cefepime HCl 1 gm/ Dextrose 50 mls @ 100 mls/hr IVPB Q12H [facility] Last Admin: 10/26/16 09:05 Dose: 100 mls/hr Insulin Aspart (Novolog) 6 unit SC ACLD [facility] Last Admin: 10/26/16 11:30 Dose: 6 unit Insulin Aspart (Novolog) 10 unit SC ACB [facility] Last Admin: 10/26/16 07:30 Dose: 10 unit Insulin Aspart (Novolog) 0 unit SC ACHS [facility] PRN Reason: Protocol Last Admin: 10/26/16 11:30 Dose: 3 unit Insulin Detemir (Levemir) 36 unit SC HS [facility] Last Admin: 10/25/16 21:43 Dose: 36 unit Metoprolol Tartrate (Lopressor) 25 mg PO BID [facility] Last Admin: 10/26/16 10:04 Dose: 25 mg Mirtazapine (Remeron) 30 mg PO HS [facility] Last Admin: 10/25/16 21:31 Dose: 30 mg Ondansetron HCl (Zofran Tab) 4 mg PO Q6 PRN PRN Reason: Nausea/Vomiting Last Admin: 10/23/16 17:53 Dose: 4 mg Rosuvastatin Calcium (Crestor) 10 mg PO HS [facility] Last Admin: 10/25/16 21:30 Dose: 10 mg Tamsulosin HCl (Flomax) 0.4 mg PO DAILY [facility] Last Admin: 10/26/16 10:04 Dose: 0.4 mg - Labs Labs: 10/26/16 08:05 10/26/16 08:05 Attending/Attestation - Attestation I have personally seen and examined this patient.: Yes I have fully participated in the care of the patient.: Yes I have reviewed all pertinent clinical information, including history, physical exam and plan: Yes Notes (Text): 10/26/16 14:59 Patient was seen and examined at bedside with the resident. Patient complains of for pain in the right foot and also mild pain at the site of the surgery in the right groin. We will continue IV antibiotics so for bacteremia. Repeat cultures are negative so far Patient started on home regimen of insulin. Monitor blood sugar closely. Titrate as needed. Discharge planning when cleared by ID. I discussed the plan of care with the resident and agree with the history and physical and assessment/plan documented here.
[2016-10-26] MEDS ORDERED: Bisacodyl 5mg EC Tab PO PRN (09:16)
[2016-10-26] MEDS: LIPASE/PROTEASE/AMYLASE 4,200 U ECC PO SCH ×3 (10:04→17:48)
[2016-10-26] MEDS: HYDROmorphone 0.5 mg/0.5 ml ISec IVP PRN ×2 (10:11→17:54)
[2016-10-26] MEDS: Hydrocortisone 2.5% Rectal Cream(30 gm) PR SCH ×2 (10:15→18:30)
--- NOTE | 2016-10-26 15:48 | CP.PCM.PN ---
Subjective - Date & Time of Evaluation Date of Evaluation: 10/26/16 Time of Evaluation: 07:00 - Subjective Subjective: improving iv rx renewed Objective - Vital Signs/Intake and Output Vital Signs (last 24 hours): Temp Pulse Resp BP Pulse Ox 97.5 F L 77 20 163/75 H 100 10/26/16 15:32 10/26/16 15:32 10/26/16 15:32 10/26/16 15:32 10/26/16 15:32 Intake and Output: 10/26/16 10/26/16 06:59 18:59 Intake Total 1200 Output Total 1650 Balance -450 - Medications Medications: Current Medications Aspirin (Aspirin Chewable) 81 mg PO DAILY [facility] Last Admin: 10/26/16 10:04 Dose: 81 mg Bisacodyl (Dulcolax) 5 mg PO DAILY PRN PRN Reason: constipation Clopidogrel Bisulfate (Plavix) 75 mg PO DAILY [facility] Last Admin: 10/26/16 10:07 Dose: 75 mg Docusate Sodium (Colace) 100 mg PO BID [facility] Last Admin: 10/26/16 10:04 Dose: 100 mg Duloxetine HCl (Cymbalta) 40 mg PO HS [facility] Last Admin: 10/25/16 21:31 Dose: 40 mg Famotidine (Pepcid) 20 mg PO DAILY [facility] Ferrous Sulfate (Feosol) 325 mg PO BID [facility] Last Admin: 10/26/16 10:04 Dose: 325 mg Finasteride (Proscar) 5 mg PO DAILY [facility] Last Admin: 10/26/16 10:04 Dose: 5 mg Heparin Sodium (Porcine) (Heparin) 5,000 units SC Q8 [facility] Hydrocortisone (Anusol-Hc) 0 gm [place] BID [facility] Last Admin: 10/26/16 10:15 Dose: 1 units Hydromorphone HCl (Dilaudid) 0.5 mg IVP Q4H PRN PRN Reason: Pain, severe (8-10) Last Admin: 10/26/16 10:11 Dose: 0.5 mg Vancomycin HCl 1 gm/ Sodium (Chloride) 250 mls @ 166.7 mls/hr IVPB Q12 [facility] Last Admin: 10/26/16 09:58 Dose: 166.7 mls/hr Cefepime HCl 1 gm/ Dextrose 50 mls @ 100 mls/hr IVPB Q12H [facility] Last Admin: 10/26/16 09:05 Dose: 100 mls/hr Insulin Aspart (Novolog) 6 unit SC ACLD [facility] Last Admin: 10/26/16 11:30 Dose: 6 unit Insulin Aspart (Novolog) 10 unit SC ACB [facility] Last Admin: 10/26/16 07:30 Dose: 10 unit Insulin Aspart (Novolog) 0 unit SC ACHS [facility] PRN Reason: Protocol Last Admin: 10/26/16 11:30 Dose: 3 unit Insulin Detemir (Levemir) 36 unit SC HS [facility] Last Admin: 10/25/16 21:43 Dose: 36 unit Metoprolol Tartrate (Lopressor) 25 mg PO BID [facility] Last Admin: 10/26/16 10:04 Dose: 25 mg Mirtazapine (Remeron) 30 mg PO [facility] Last Admin: 10/25/16 21:31 Dose: 30 mg Ondansetron HCl (Zofran Tab) 4 mg PO Q6 PRN PRN Reason: Nausea/Vomiting Last Admin: 10/23/16 17:53 Dose: 4 mg Rosuvastatin Calcium (Crestor) 10 mg PO [facility] Last Admin: 10/25/16 21:30 Dose: 10 mg Tamsulosin HCl (Flomax) 0.4 mg PO DAILY [facility] Last Admin: 10/26/16 10:04 Dose: 0.4 mg - Labs Labs: 10/26/16 08:05 10/26/16 08:05 - Constitutional Appears: Non-toxic, Chronically Ill - Head Exam Head Exam: NORMOCEPHALIC - Eye Exam Eye Exam: PERRL. 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
[2016-10-26] MEDS: Insulin Detemir 100 units/ml Vial (Levemir) SC SCH (21:36)
--- NOTE | 2016-10-27 03:02 | CP.PCM.PN ---
<[place] ParkYi del castillojonathan Mccullough - Last Filed: 10/27/16 07:18> Subjective - Date & Time of Evaluation Date of Evaluation: 10/27/16 Time of Evaluation: 01:30 - Subjective Subjective: PGY 1 Medicine Note Patient was seen and examined at bedside. Patient reports that he is doing well. Patient admits to mild right groin pain at his incision site but denies right leg tingling and numbness, chest pain, sob, abdominal pain, nausea and vomiting fever, and chills. Patient has no new complaints Objective - Vital Signs/Intake and Output Vital Signs (last 24 hours): Temp Pulse Resp BP Pulse Ox 97.3 F L 66 20 168/85 H 98 10/27/16 00:07 10/27/16 00:07 10/27/16 00:07 10/27/16 00:07 10/27/16 00:07 Intake and Output: 10/26/16 10/27/16 18:59 06:59 Intake Total 900 Output Total 2 Balance 898 - Medications Medications: Current Medications Aspirin (Aspirin Chewable) 81 mg PO DAILY [facility] Last Admin: 10/26/16 10:04 Dose: 81 mg Bisacodyl (Dulcolax) 5 mg PO DAILY PRN PRN Reason: constipation Clopidogrel Bisulfate (Plavix) 75 mg PO DAILY [facility] Last Admin: 10/26/16 10:07 Dose: 75 mg Docusate Sodium (Colace) 100 mg PO BID [facility] Last Admin: 10/26/16 17:46 Dose: 100 mg Duloxetine HCl (Cymbalta) 40 mg PO HS [facility] Last Admin: 10/26/16 21:56 Dose: 40 mg Famotidine (Pepcid) 20 mg PO DAILY [facility] Ferrous Sulfate (Feosol) 325 mg PO BID [facility] Last Admin: 10/26/16 17:46 Dose: 325 mg Finasteride (Proscar) 5 mg PO DAILY [facility] Last Admin: 10/26/16 10:04 Dose: 5 mg Heparin Sodium (Porcine) (Heparin) 5,000 units SC Q8 [facility] Hydrocortisone (Anusol-Hc) 0 gm [place] BID [facility] Last Admin: 10/26/16 18:30 Dose: Not Given Hydromorphone HCl (Dilaudid) 0.5 mg IVP Q4H PRN PRN Reason: Pain, severe (8-10) Last Admin: 10/26/16 17:54 Dose: 0.5 mg Vancomycin HCl 1 gm/ Sodium (Chloride) 250 mls @ 166.7 mls/hr IVPB Q12 [facility] Last Admin: 10/26/16 21:33 Dose: 166.7 mls/hr Cefepime HCl 1 gm/ Dextrose 50 mls @ 100 mls/hr IVPB Q12H [facility] Last Admin: 10/26/16 21:00 Dose: 100 mls/hr Insulin Aspart (Novolog) 6 unit SC ACLD [facility] Last Admin: 10/26/16 16:30 Dose: 6 unit Insulin Aspart (Novolog) 10 unit SC ACB [facility] Last Admin: 10/26/16 07:30 Dose: 10 unit Insulin Aspart (Novolog) 0 unit SC ACHS [facility] PRN Reason: Protocol Last Admin: 10/26/16 21:34 Dose: Not Given Insulin Detemir (Levemir) 36 unit SC HS [facility] Last Admin: 10/26/16 21:36 Dose: 36 unit Metoprolol Tartrate (Lopressor) 25 mg PO BID [facility] Last Admin: 10/26/16 17:46 Dose: 25 mg Mirtazapine (Remeron) 30 mg PO HS [facility] Last Admin: 10/26/16 22:01 Dose: 30 mg Ondansetron HCl (Zofran Tab) 4 mg PO Q6 PRN PRN Reason: Nausea/Vomiting Last Admin: 10/23/16 17:53 Dose: 4 mg Rosuvastatin Calcium (Crestor) 10 mg PO [facility] Last Admin: 10/26/16 21:41 Dose: 10 mg Tamsulosin HCl (Flomax) 0.4 mg PO DAILY [facility] Last Admin: 10/26/16 10:04 Dose: 0.4 mg - Labs Labs: 10/26/16 08:05 10/26/16 08:05 - Constitutional Appears: Well, No Acute Distress - Head Exam Head Exam: ATRAUMATIC, NORMAL INSPECTION - Eye Exam Eye Exam: EOMI, Normal appearance - Respiratory Exam Respiratory Exam: Clear to Ausculation Bilateral, NORMAL BREATHING PATTERN - Cardiovascular Exam Cardiovascular Exam: REGULAR RHYTHM - GI/Abdominal Exam GI & Abdominal Exam: Soft, Normal Bowel Sounds - Exam Additional comments: Right groin incision CDI - Extremities Exam Extremities Exam: Normal Inspection. absent: Calf Tenderness, Tenderness - Psychiatric Exam Psychiatric exam: Normal Affect, Normal Mood - Skin Skin Exam: Normal Color, Warm Assessment and Plan (1) Bacteremia Assessment & Plan: Source: E.coli -ID consulted (Sharon) --> help appreciated -Cefepime IV q12h -Vanco 1g Q12h -NS 75 cc/hr Status: Acute (2) Pseudoaneurysm of femoral artery Assessment & Plan: -Surgery consulted. (Dr. Lorenzo): Help appreciated -pt s/p R Femoral A pseudoaneurysm repair w stent on 10/18 -dilaudid for pain -continue ASA 81mg PO daily -continue Plavix 75mg PO daily -continue Crestor 10mg PO HS Status: Acute (3) Abdominal pain Assessment & Plan: Recent HIDA positive. Cholelithiasis noted on recent imaging. Recommend out-patient elective cholecystectomy Status: Acute (4) Hypertension Assessment & Plan: Continue lopressor 25mg PO BID Status: Chronic (5) History of diabetes mellitus Assessment & Plan: continue accuchecks continue sliding scale insulin aspart 10u ACB insulin aspart 6u ACLD levemir 36u HS Status: Acute (6) History of anemia Assessment & Plan: Continue ferrous sulfate 325mg PO BID Status: Acute (7) History of BPH Assessment & Plan: Continue Flomax 0.4mg PO daily Continue Proscar 5mg PO daily Status: Acute (8) Prophylactic measure Assessment & Plan: Pepcid 20 IVP daily Heparin 5,000 units SC Q8H PT recommends TCU Case management consult - for TCU placement Status: Acute <Anton Alvarado H - Last Filed: 10/27/16 13:47> Objective - Vital Signs/Intake and Output Vital Signs (last 24 hours): Temp Pulse Resp BP Pulse Ox 98.1 F 82 20 130/82 97 10/27/16 07:05 10/27/16 07:05 10/27/16 07:05 10/27/16 10:16 10/27/16 07:05 Intake and Output: 10/27/16 10/27/16 06:59 18:59 Intake Total 1200 Output Total 2001 Balance -802 - Medications Medications: Current Medications Aspirin (Aspirin Chewable) 81 mg PO DAILY [facility] Last Admin: 10/27/16 10:16 Dose: 81 mg Bisacodyl (Dulcolax) 5 mg PO DAILY PRN PRN Reason: constipation Clopidogrel Bisulfate (Plavix) 75 mg PO DAILY [facility] Last Admin: 10/27/16 10:17 Dose: 75 mg Docusate Sodium (Colace) 100 mg PO TID [facility] Last Admin: 10/27/16 13:04 Dose: 100 mg Duloxetine HCl (Cymbalta) 40 mg PO HS [facility] Last Admin: 10/26/16 21:56 Dose: 40 mg Famotidine (Pepcid) 20 mg PO DAILY [facility] Last Admin: 10/27/16 10:17 Dose: 20 mg Ferrous Sulfate (Feosol) 325 mg PO BID [facility] Last Admin: 10/27/16 10:17 Dose: 325 mg Finasteride (Proscar) 5 mg PO DAILY [facility] Last Admin: 10/27/16 10:18 Dose: 5 mg Heparin Sodium (Porcine) (Heparin) 5,000 units SC Q8 [facility] Hydrocortisone (Anusol-Hc) 0 gm [place] BID [facility] Last Admin: 10/27/16 10:33 Dose: Not Given Hydromorphone HCl (Dilaudid) 0.5 mg IVP Q4H PRN PRN Reason: Pain, severe (8-10) Last Admin: 10/27/16 13:03 Dose: 0.5 mg Vancomycin HCl 1 gm/ Sodium (Chloride) 250 mls @ 166.7 mls/hr IVPB Q12 [facility] Last Admin: 10/27/16 10:20 Dose: 166.7 mls/hr Cefepime HCl 1 gm/ Dextrose 50 mls @ 100 mls/hr IVPB Q12H [facility] Last Admin: 10/27/16 08:27 Dose: 100 mls/hr Insulin Aspart (Novolog) 6 unit SC ACLD [facility] Last Admin: 10/27/16 12:00 Dose: 6 unit Insulin Aspart (Novolog) 10 unit SC ACB [facility] Last Admin: 10/27/16 08:22 Dose: 10 unit Insulin Aspart (Novolog) 0 unit SC ACHS [facility] PRN Reason: Protocol Last Admin: 10/27/16 12:00 Dose: 4 unit Insulin Detemir (Levemir) 36 unit SC HS [facility] Last Admin: 10/26/16 21:36 Dose: 36 unit Metoprolol Tartrate (Lopressor) 25 mg PO BID [facility] Last Admin: 10/27/16 10:16 Dose: 25 mg Mirtazapine (Remeron) 30 mg PO HS [facility] Last Admin: 10/26/16 22:01 Dose: 30 mg Ondansetron HCl (Zofran Tab) 4 mg PO Q6 PRN PRN Reason: Nausea/Vomiting Last Admin: 10/27/16 10:29 Dose: 4 mg Rosuvastatin Calcium (Crestor) 10 mg PO HS [facility] Last Admin: 10/26/16 21:41 Dose: 10 mg Tamsulosin HCl (Flomax) 0.4 mg PO DAILY [facility] Last Admin: 10/27/16 10:17 Dose: 0.4 mg - Labs Labs: 10/27/16 08:18 10/27/16 08:18 Attending/Attestation - Attestation I have personally seen and examined this patient.: Yes I have fully participated in the care of the patient.: Yes I have reviewed all pertinent clinical information, including history, physical exam and plan: Yes Notes (Text): Medical Attending: Patient was seen and examined by me. Agree with the above note by resident. Patient remains on IV abx at this time. He is not reporting fever or chills. He states he currently feels ok. Blood cultures are negatve 3 days at this time Pain in lower extremity is currently controlled at this time. 10/27/16 13:45
[2016-10-27] MEDS: (Novolog) Insulin Aspart, Recombinant 100 u/ml 10 ml vial SC SCH ×7 (08:21→21:16)
[2016-10-27 08:26] LABS: BASO # 0.1 K/uL (0.0-0.2); BASO % 1.2 % (0.0-2.0); EOS # 0.5 K/uL (0.0-0.7); EOS % 8.5 % (0.0-4.0); HEMATOCRIT 31.2 % (35.0-51.0); LYMPH % 16.5 % (20.0-40.0); MEAN CORPUSCULAR HEMOGLOBIN 28.9 pg (27.0-31.0); MEAN CORPUSCULAR HGB CONC 33.6 g/dL (33.0-37.0); MEAN PLATELET VOLUME 7.9 fL (7.2-11.7); MONO # 0.4 K/uL (0.0-0.8); RED CELL DISTRIBUTION WIDTH 17.8 % (11.5-14.5); WHITE BLOOD COUNT 5.8 K/uL (4.8-10.8)
[2016-10-27] MEDS: HYDROmorphone 0.5 mg/0.5 ml ISec IVP PRN ×3 (08:27→19:27)
[2016-10-27 08:39] LABS: ALB/GLOB RATIO 0.9 (1.0-2.1); ALKALINE PHOSPHATASE 116 U/L (38-126); ALT/SGPT 24 U/L (21-72); AST/SGOT 15 U/L (17-59); BILIRUBIN,TOTAL 0.4 mg/dL (0.2-1.3); BLOOD UREA NITROGEN 22 mg/dL (9-20); CALCIUM 8.8 mg/dl (8.6-10.4); CARBON DIOXIDE 21 mmol/L (22-30); CHLORIDE 105 mmol/L (98-107); GFR AFRICAN-AMERICAN > 60; GLUCOSE,RANDOM 264 mg/dL (75-110); POTASSIUM 4.3 mmol/L (3.6-5.2); SODIUM 138 mmol/L (132-148); TOTAL PROTEIN 6.5 g/dL (6.3-8.3)
[2016-10-27] MEDS: LIPASE/PROTEASE/AMYLASE 4,200 U ECC PO SCH ×3 (10:19→17:07)
[2016-10-27] MEDS: Hydrocortisone 2.5% Rectal Cream(30 gm) PR SCH ×3 (10:19→17:12)
[2016-10-27] MEDS: Insulin Detemir 100 units/ml Vial (Levemir) SC SCH (21:33)
[2016-10-28 06:51] LABS: BASO # 0.1 K/uL (0.0-0.2); BASO % 1.4 % (0.0-2.0); EOS # 0.6 K/uL (0.0-0.7); EOS % 8.7 % (0.0-4.0); HEMATOCRIT 32.3 % (35.0-51.0); LYMPH # 1.1 K/uL (1.0-4.3); LYMPH % 15.9 % (20.0-40.0); MEAN CELL VOLUME 85.9 fL (80.0-94.0); MEAN CORPUSCULAR HEMOGLOBIN 28.5 pg (27.0-31.0); MEAN CORPUSCULAR HGB CONC 33.2 g/dL (33.0-37.0); MEAN PLATELET VOLUME 7.8 fL (7.2-11.7); MONO # 0.5 K/uL (0.0-0.8); MONO % 7.6 % (0.0-10.0)
[2016-10-28 07:28] VITALS: RESP 20; O2SAT 98
[2016-10-28 07:50] LABS: POTASSIUM 4.3 mmol/L (3.6-5.2)
[2016-10-28] MEDS: (Novolog) Insulin Aspart, Recombinant 100 u/ml 10 ml vial SC SCH ×6 (07:51→17:29)
[2016-10-28 07:52] LABS: BILIRUBIN,TOTAL 0.4 mg/dL (0.2-1.3); TOTAL PROTEIN 6.9 g/dL (6.3-8.3)
[2016-10-28 07:53] LABS: CALCIUM 8.8 mg/dl (8.6-10.4)
[2016-10-28] MEDS: HYDROmorphone 0.5 mg/0.5 ml ISec IVP PRN ×2 (08:08→17:36)
--- NOTE | 2016-10-28 09:09 | CP.PCM.PN ---
Objective - Vital Signs/Intake and Output Vital Signs (last 24 hours): Temp Pulse Resp BP Pulse Ox 97.8 F 71 20 137/66 98 10/28/16 07:25 10/28/16 07:25 10/28/16 07:25 10/28/16 07:25 10/28/16 07:25 Intake and Output: 10/28/16 10/28/16 06:59 18:59 Intake Total 600 Output Total 550 Balance 50 - Medications Medications: Current Medications Aspirin (Aspirin Chewable) 81 mg PO DAILY [facility] Last Admin: 10/27/16 10:16 Dose: 81 mg Bisacodyl (Dulcolax) 5 mg PO DAILY PRN PRN Reason: constipation Clopidogrel Bisulfate (Plavix) 75 mg PO DAILY [facility] Last Admin: 10/27/16 10:17 Dose: 75 mg Docusate Sodium (Colace) 100 mg PO TID [facility] Last Admin: 10/27/16 17:06 Dose: 100 mg Duloxetine HCl (Cymbalta) 40 mg PO HS [facility] Last Admin: 10/27/16 21:32 Dose: 40 mg Famotidine (Pepcid) 20 mg PO DAILY [facility] Last Admin: 10/27/16 10:17 Dose: 20 mg Ferrous Sulfate (Feosol) 325 mg PO BID [facility] Last Admin: 10/27/16 17:07 Dose: 325 mg Finasteride (Proscar) 5 mg PO DAILY [facility] Last Admin: 10/27/16 10:18 Dose: 5 mg Heparin Sodium (Porcine) (Heparin) 5,000 units SC Q8 [facility] Hydrocortisone (Anusol-Hc) 0 gm [place] BID [facility] Last Admin: 10/27/16 17:12 Dose: Not Given Hydromorphone HCl (Dilaudid) 0.5 mg IVP Q4H PRN PRN Reason: Pain, severe (8-10) Last Admin: 10/28/16 08:08 Dose: 0.5 mg Vancomycin HCl 1 gm/ Sodium (Chloride) 250 mls @ 166.7 mls/hr IVPB Q12 [facility] Last Admin: 10/27/16 21:32 Dose: 166.7 mls/hr Cefepime HCl 1 gm/ Dextrose 50 mls @ 100 mls/hr IVPB Q12H [facility] Last Admin: 10/28/16 08:07 Dose: 100 mls/hr Insulin Aspart (Novolog) 6 unit SC ACLD [facility] Last Admin: 10/27/16 17:10 Dose: 6 unit Insulin Aspart (Novolog) 10 unit SC ACB [facility] Last Admin: 10/28/16 08:08 Dose: 10 unit Insulin Aspart (Novolog) 0 unit SC ACHS [facility] PRN Reason: Protocol Last Admin: 10/28/16 07:51 Dose: Not Given Insulin Detemir (Levemir) 36 unit SC HS [facility] Last Admin: 10/27/16 21:33 Dose: 36 unit Metoprolol Tartrate (Lopressor) 25 mg PO BID [facility] Last Admin: 10/27/16 17:07 Dose: Not Given Mirtazapine (Remeron) 30 mg PO HS [facility] Last Admin: 10/27/16 21:32 Dose: 30 mg Ondansetron HCl (Zofran Tab) 4 mg PO Q6 PRN PRN Reason: Nausea/Vomiting Last Admin: 10/27/16 10:29 Dose: 4 mg Rosuvastatin Calcium (Crestor) 10 mg PO [facility] Last Admin: 10/27/16 22:19 Dose: 10 mg Tamsulosin HCl (Flomax) 0.4 mg PO DAILY [facility] Last Admin: 10/27/16 10:17 Dose: 0.4 mg - Labs Labs: 10/28/16 06:39 10/28/16 06:39
[2016-10-28] MEDS: LIPASE/PROTEASE/AMYLASE 4,200 U ECC PO SCH ×3 (10:13→17:25)
[2016-10-28] MEDS: Hydrocortisone 2.5% Rectal Cream(30 gm) PR SCH ×3 (10:22→17:33)
--- NOTE | 2016-10-28 12:40 | CP.PCM.DIS ---
<Mikey Ricossfiorella Carter - Last Filed: 10/28/16 15:13> Provider - Provider Date of Admission: 10/23/16 16:19 Attending physician: Anton Alvarado DO Time Spent in preparation of Discharge (in minutes): 45 Hospital Course - Lab Results Lab Results: Micro Results 10/23/16 18:00 Blood Blood Culture - Preliminary NO GROWTH AFTER 4 DAYS 10/23/16 18:00 Blood Blood Culture - Preliminary NO GROWTH AFTER 4 DAYS Most Recent Lab Values WBC 7.0 K/uL (4.8-10.8) 10/28/16 06:39 RBC 3.76 Mil/uL (4.40-5.90) L 10/28/16 06:39 Hgb 10.7 g/dL (12.0-18.0) L 10/28/16 06:39 Hct 32.3 % (35.0-51.0) L 10/28/16 06:39 MCV 85.9 fL (80.0-94.0) 10/28/16 06:39 MCH 28.5 pg (27.0-31.0) 10/28/16 06:39 MCHC 33.2 g/dL (33.0-37.0) 10/28/16 06:39 RDW 18.0 % (11.5-14.5) H 10/28/16 06:39 Plt Count 188 K/uL (130-400) 10/28/16 06:39 MPV 7.8 fL (7.2-11.7) 10/28/16 06:39 Neut % (Auto) 66.4 % (50.0-75.0) 10/28/16 06:39 Lymph % (Auto) 15.9 % (20.0-40.0) L 10/28/16 06:39 [place] % (Auto) 7.6 % (0.0-10.0) 10/28/16 06:39 Eos % (Auto) 8.7 % (0.0-4.0) H 10/28/16 06:39 Baso % (Auto) 1.4 % (0.0-2.0) 10/28/16 06:39 Neut # 4.6 K/uL (1.8-7.0) 10/28/16 06:39 Lymph # 1.1 K/uL (1.0-4.3) 10/28/16 06:39 [place] # 0.5 K/uL (0.0-0.8) 10/28/16 06:39 Eos # 0.6 K/uL (0.0-0.7) 10/28/16 06:39 Baso # 0.1 K/uL (0.0-0.2) 10/28/16 06:39 Neutrophils % (Manual) 83 % (50-75) H 10/23/16 15:38 Lymphocytes % (Manual) 7 % (20-40) L 10/23/16 15:38 Monocytes % (Manual) 5 % (0-10) 10/23/16 15:38 Eosinophils % (Manual) 5 % (0-4) H 10/23/16 15:38 Platelet Estimate Normal (NORMAL) 10/23/16 15:38 Hypochromasia (manual) Slight 10/23/16 15:38 Poikilocytosis (manual Slight 10/23/16 15:38 Anisocytosis (manual) Slight 10/23/16 15:38 Sodium 143 mmol/L (132-148) 10/28/16 06:39 Potassium 4.3 mmol/L (3.6-5.2) 10/28/16 06:39 Chloride 107 mmol/L (98-107) 10/28/16 06:39 Carbon Dioxide 21 mmol/L (22-30) L 10/28/16 06:39 Anion Gap 19 (10-20) 10/28/16 06:39 BUN 29 mg/dL (9-20) H 10/28/16 06:39 Creatinine 1.5 MG/DL (0.8-1.5) 10/28/16 06:39 Est GFR ( Amer) 56 10/28/16 06:39 Est GFR (Non-Af Amer) 47 10/28/16 06:39 POC Glucose (mg/dL) 236 mg/dL (65-110) H 10/28/16 11:04 Random Glucose 136 mg/dL (75-110) H 10/28/16 06:39 Calcium 8.8 mg/dl (8.6-10.4) 10/28/16 06:39 Total Bilirubin 0.4 mg/dL (0.2-1.3) 10/28/16 06:39 AST 16 U/L (17-59) L 10/28/16 06:39 ALT 21 U/L (21-72) 10/28/16 06:39 Alkaline Phosphatase 106 U/L (38-126) 10/28/16 06:39 Total Protein 6.9 g/dL (6.3-8.3) 10/28/16 06:39 Albumin 3.4 g/dL (3.5-5.0) L 10/28/16 06:39 Globulin 3.5 gm/dL (2.2-3.9) 10/28/16 06:39 Albumin/Globulin Ratio 1.0 (1.0-2.1) 10/28/16 06:39 Amylase 34 U/L (30-110) 10/23/16 15:38 Lipase 67 U/L (23-300) 10/23/16 15:38 Urine Color Yellow (YELLOW) 10/23/16 15:53 Urine Clarity Clear (Clear) 10/23/16 15:53 Urine pH 8.0 (5.0-8.0) 10/23/16 15:53 Ur Specific [place] 1.014 (1.003-1.030) 10/23/16 15:53 Urine Protein 1+ mg/dL (NEGATIVE) H 10/23/16 15:53 Urine Glucose (UA) 3+ mg/dL (Normal) H 10/23/16 15:53 Urine Ketones Negative mg/dL (NEGATIVE) 10/23/16 15:53 Urine Blood Negative (NEGATIVE) 10/23/16 15:53 Urine Nitrate Negative (NEGATIVE) 10/23/16 15:53 Urine Bilirubin Negative (NEGATIVE) 10/23/16 15:53 Urine Urobilinogen Normal mg/dL (0.2-1.0) 10/23/16 15:53 Ur Leukocyte Esterase Neg [place]/uL (Negative) 10/23/16 15:53 Urine WBC (Auto) 1 /hpf (0-5) 10/23/16 15:53 Urine RBC (Auto) < 1 /hpf (0-3) 10/23/16 15:53 Urine Bacteria Rare (<OCC) 10/23/16 15:53 - Hospital Course Hospital Course: This is a 70 yo male with past medical history of PAD, HTN, carotid stenosis, pancreatic pseudocyst, s/p femoral endartectomy presenting with chief complaint right groin swelling/pain. Patient was in ICU yesterday with bacteremia and left due to personal reasons. Previously pt had had a femoral endarterectomy on right side on 09/22. Pt was discharged to [facility] and completed therapy. Soon after, patient presented to our ER where he noticed right groin swelling and pain and tingling in his right leg. He was found to have a femoral artery pseudoaneurysm and underwent stent placement. His course was complicated by E coli bacteremia and he did not finish tx because he left hospital. He is now back to finish his tx. PMH: PAD, HTN, carotid stenosis, DM, pancreatic pseudocyst, femoral artery pseudoaneurysm, DM PSH: femoral endarterectomy, embolectomy, carotid endarterectomy Allergies: NKDA FH: aortic aneurysm, ALS Social hx: 3 pack/day smoker. Former alcoholic. Hx of heavy drug use. Marijuana , cocaine, barbituates, speed. Hospital Summary: 10/23/16: Patient is a 70 male reporting the emergency room complaining of right groin pain and swelling and right leg pain when walking. Patient has an incision in the right groin area. Patient had a stent placed in his femoral artery due to a pseudoneurysm by Dr. Lorenzo. His recovery was complicated by E.Coli bactermia, however treatment was not completed because he left the hospital for personal reasons. Patient admitted to continue IV antibiotics and further workup. Dr. Herrera consulted for E.Col infection. Dr. Lorenzo consulted for leg/groin pain and for dilated common bile duct. 10/24/16: Surgery determined no acute surgical intervention needed at this time and recommended an outpatient elective cholecystectomy. 10/28/16: Patient is recommended to go to rehab. Patient accepted the rehab as long as he could smoke a cigarette there. Patient is hemodynamically stable for discharge. Patietn states he feels better and does agree to go to rehab and afterwards follow up with his primary care doctor. Patient is stable for discharge to rehab per Dr. Alvarado and Dr. Lorenzo. Patient is to follow up with PMD within one week. Patient is to follow up with surgery in one week in the office for remaining staple removal. Patient is to resume home medcations. New Medications: Percocet 5/325mg PO q4H PRN for pain Patient is to receive home physical therapy. Patient is to return to the emergency room if symptoms return or worsen. This is a brief summary of events. For a complete course, refer to the medical record. Discharge Exam - Head Exam Head Exam: ATRAUMATIC, NORMAL INSPECTION, NORMOCEPHALIC - Eye Exam Eye Exam: EOMI, Normal appearance, PERRL Pupil Exam: NORMAL ACCOMODATION - ENT Exam ENT Exam: Mucous Membranes Moist - Respiratory Exam Respiratory Exam: Clear to PA & Lateral, NORMAL BREATHING PATTERN - Cardiovascular Exam Cardiovascular Exam: Diastolic murmur, REGULAR RHYTHM, RRR, +S1, +S2 - GI/Abdominal Exam GI & Abdominal Exam: Normal Bowel Sounds, Soft. absent: Tenderness - Extremities Exam Extremities exam: normal inspection - Neurological Exam Neurological exam: Alert, Oriented x3 - Psychiatric Exam Psychiatric exam: Normal Affect, Normal Mood - Skin Skin Exam: Normal Color, Warm Discharge Plan - Discharge Medications Prescriptions: Clopidogrel [Plavix] 75 mg PO DAILY #30 tab - Follow Up Plan Condition: STABLE Disposition: REHAB FACILITY/REHAB UNIT Instructions: Oxycodone/Acetaminophen (By mouth), Sepsis (DC), Sepsis (GEN) Referrals: Noé Lorenzo Jr., MD [Staff Provider] - <Anton Alvarado - Last Filed: 10/29/16 08:38> Provider - Provider Date of Admission: 10/23/16 16:19 Attending physician: Anton Alvarado, DO Hospital Course - Lab Results Lab Results: Micro Results 10/23/16 18:00 Blood Blood Culture - Final NO GROWTH AFTER 5 DAYS 10/23/16 18:00 Blood Gram Stain - Final TEST NOT PERFORMED 10/23/16 18:00 Blood Blood Culture - Final NO GROWTH AFTER 5 DAYS 10/23/16 18:00 Blood Gram Stain - Final TEST NOT PERFORMED Most Recent Lab Values WBC 7.0 K/uL (4.8-10.8) 10/28/16 06:39 RBC 3.76 Mil/uL (4.40-5.90) L 10/28/16 06:39 Hgb 10.7 g/dL (12.0-18.0) L 10/28/16 06:39 Hct 32.3 % (35.0-51.0) L 10/28/16 06:39 MCV 85.9 fL (80.0-94.0) 10/28/16 06:39 MCH 28.5 pg (27.0-31.0) 10/28/16 06:39 MCHC 33.2 g/dL (33.0-37.0) 10/28/16 06:39 RDW 18.0 % (11.5-14.5) H 10/28/16 06:39 Plt Count 188 K/uL (130-400) 10/28/16 06:39 MPV 7.8 fL (7.2-11.7) 10/28/16 06:39 Neut % (Auto) 66.4 % (50.0-75.0) 10/28/16 06:39 Lymph % (Auto) 15.9 % (20.0-40.0) L 10/28/16 06:39 [place] % (Auto) 7.6 % (0.0-10.0) 10/28/16 06:39 Eos % (Auto) 8.7 % (0.0-4.0) H 10/28/16 06:39 Baso % (Auto) 1.4 % (0.0-2.0) 10/28/16 06:39 Neut # 4.6 K/uL (1.8-7.0) 10/28/16 06:39 Lymph # 1.1 K/uL (1.0-4.3) 10/28/16 06:39 [place] # 0.5 K/uL (0.0-0.8) 10/28/16 06:39 Eos # 0.6 K/uL (0.0-0.7) 10/28/16 06:39 Baso # 0.1 K/uL (0.0-0.2) 10/28/16 06:39 Neutrophils % (Manual) 83 % (50-75) H 10/23/16 15:38 Lymphocytes % (Manual) 7 % (20-40) L 10/23/16 15:38 Monocytes % (Manual) 5 % (0-10) 10/23/16 15:38 Eosinophils % (Manual) 5 % (0-4) H 10/23/16 15:38 Platelet Estimate Normal (NORMAL) 10/23/16 15:38 Hypochromasia (manual) Slight 10/23/16 15:38 Poikilocytosis (manual Slight 10/23/16 15:38 Anisocytosis (manual) Slight 10/23/16 15:38 Sodium 143 mmol/L (132-148) 10/28/16 06:39 Potassium 4.3 mmol/L (3.6-5.2) 10/28/16 06:39 Chloride 107 mmol/L (98-107) 10/28/16 06:39 Carbon Dioxide 21 mmol/L (22-30) L 10/28/16 06:39 Anion Gap 19 (10-20) 10/28/16 06:39 BUN 29 mg/dL (9-20) H 10/28/16 06:39 Creatinine 1.5 MG/DL (0.8-1.5) 10/28/16 06:39 Est GFR ( Amer) 56 10/28/16 06:39 Est GFR (Non-Af Amer) 47 10/28/16 06:39 POC Glucose (mg/dL) 191 mg/dL (65-110) H 10/28/16 16:42 Random Glucose 136 mg/dL (75-110) H 10/28/16 06:39 Calcium 8.8 mg/dl (8.6-10.4) 10/28/16 06:39 Total Bilirubin 0.4 mg/dL (0.2-1.3) 10/28/16 06:39 AST 16 U/L (17-59) L 10/28/16 06:39 ALT 21 U/L (21-72) 10/28/16 06:39 Alkaline Phosphatase 106 U/L (38-126) 10/28/16 06:39 Total Protein 6.9 g/dL (6.3-8.3) 10/28/16 06:39 Albumin 3.4 g/dL (3.5-5.0) L 10/28/16 06:39 Globulin 3.5 gm/dL (2.2-3.9) 10/28/16 06:39 Albumin/Globulin Ratio 1.0 (1.0-2.1) 10/28/16 06:39 Amylase 34 U/L (30-110) 10/23/16 15:38 Lipase 67 U/L (23-300) 10/23/16 15:38 Urine Color Yellow (YELLOW) 10/23/16 15:53 Urine Clarity Clear (Clear) 10/23/16 15:53 Urine pH 8.0 (5.0-8.0) 10/23/16 15:53 Ur Specific [place] 1.014 (1.003-1.030) 10/23/16 15:53 Urine Protein 1+ mg/dL (NEGATIVE) H 10/23/16 15:53 Urine Glucose (UA) 3+ mg/dL (Normal) H 10/23/16 15:53 Urine Ketones Negative mg/dL (NEGATIVE) 10/23/16 15:53 Urine Blood Negative (NEGATIVE) 10/23/16 15:53 Urine Nitrate Negative (NEGATIVE) 10/23/16 15:53 Urine Bilirubin Negative (NEGATIVE) 10/23/16 15:53 Urine Urobilinogen Normal mg/dL (0.2-1.0) 10/23/16 15:53 Ur Leukocyte Esterase Neg [place]/uL (Negative) 10/23/16 15:53 Urine WBC (Auto) 1 /hpf (0-5) 10/23/16 15:53 Urine RBC (Auto) < 1 /hpf (0-3) 10/23/16 15:53 Urine Bacteria Rare (<OCC) 10/23/16 15:53 Attending/Attestation - Attestation I have personally seen and examined this patient.: Yes I have fully participated in the care of the patient.: Yes I have reviewed all pertinent clinical information, including history, physical exam and plan: Yes Notes (Text): 10/29/16 08:37 Medical Attending: Patient was seen and examined by me. Agree with the above note by the resident. The patient intially did not want to go to rehab due to previous history of not being allowed to smoke a cigarette. He originally wanted to go home and we had planned around that however I was later informed that a rehab that was willing to accomodate for his smoking was found and he agreed to go there instead. thank you Anton Alvarado
[2016-10-28 16:54] VITALS: PULSE 62; TEMP 97.4
[2016-10-28 17:31] VITALS: BP 126/76
== END 2016-10-28 19:40 | disposition home or self-care (01) | DRG 872 ==
LOC: C.ER 14:09 → C.9E 16:19 → C.3T 17:26
PROVIDERS: ADMIT Internal Medicine; ATTEND Hospitalist
DX: R78.81 Bacteremia (principal); N17.9 Acute kidney failure, unspecified; I10 Essential (primary) hypertension; B96.20 Unspecified Escherichia coli [E. coli] as the cause of diseases classified elsewhere; D64.9 Anemia, unspecified; E11.9 Type 2 diabetes mellitus without complications; F17.200 Nicotine dependence, unspecified, uncomplicated; I25.10 Atherosclerotic heart disease of native coronary artery without angina pectoris; I71.9 Aortic aneurysm of unspecified site, without rupture; I72.4 Aneurysm of artery of lower extremity; I73.9 Peripheral vascular disease, unspecified; K59.00 Constipation, unspecified; K64.9 Unspecified hemorrhoids; N40.0 Benign prostatic hyperplasia without lower urinary tract symptoms; Z79.4 Long term (current) use of insulin; Z68.21 Body mass index [BMI] 21.0-21.9, adult

== ENCOUNTER 2016-11-26 21:51 | Inpatient (IN) | payer MEDICARE ==
[2016-11-26 21:51] VITALS: BMI 22.8
[2016-11-26] MEDS ORDERED: Sodium Chloride 0.9% 1,000 ML IV ONE (22:47)
--- NOTE | 2016-11-26 23:10 | C.PDOC ---
History Of Present Illness Patient with a past history of rupture of his right femoral artery 2 months ago states he was discharge home form the rehab 2 days ago. He has been doing well and was seen in the office by Dr Lorenzo last week. Tonight while he was watching TV he had sudden bleeding from the operative site. He states that "it was shooting up like a fountain, hitting the grijalva. it took a while for him to stop the bleeding. He was brought in with ALS and medics. Initially he was hypotensive but BP improved after IV saline. He denies any history of trauma to the area. He has been cleaning the area as directed by the rehab staff. Time Seen by Provider: 11/26/16 22:39 Chief Complaint (Nursing): Abnormal Skin Integrity History Per: Patient History/Exam Limitations: no limitations Onset/Duration Of Symptoms: Hrs Current Symptoms Are (Timing): Still Present Past Medical History Vital Signs: Last Vital Signs Temp 97.9 F 11/26/16 23:57 Pulse 85 11/26/16 23:57 Resp 18 11/26/16 23:57 BP 99/58 L 11/26/16 23:57 Pulse Ox 100 11/26/16 23:57 - Medical History PMH: Anemia, Arthritis, Depression, Fractures (rt wrist), Gall Bladder Disease, HTN, Pancreatitis Denies: Crohn's Disease, Diverticulitis, Gastritis, Chronic Kidney Disease Surgical History: Carotid Endarterectomy (L CEA) Other Surgeries: Femoral artery aneurysm bypass - [facility] Procedures EXCISION OF TOE NAIL, EXTERNAL APPROACH (09/25/16) EXERCISE TRMT MUSCULOSK LOW BACK/LE W ASSIST EQUIP (09/25/16) EXTIRPATION OF MATTER FROM L EXT CAROTID, OPEN APPROACH (08/30/16) EXTIRPATION OF MATTER FROM L INT CAROTID, OPEN APPROACH (08/30/16) EXTIRPATION OF MATTER FROM R FEM ART, OPEN APPROACH (09/20/16) GAIT TRAINING/AMBULAT TREATMENT USING ASSIST EQUIPMENT (09/25/16) HOME MANAGEMENT TREATMENT USING ASSIST EQUIPMENT (09/25/16) INSERT OF MONITOR DEV INTO CHEST SUBCU/FASCIA, PERC APPROACH (05/02/16) INTRODUCE OF OTH THERAP SUBST INTO PERIPH ART, PERC APPROACH (10/18/16) REPAIR FACE SKIN, EXTERNAL APPROACH (05/02/16) REPAIR RIGHT FEMORAL ARTERY, PERCUTANEOUS APPROACH (10/18/16) SUPPLEMENT L INT CAROTID WITH SYNTH SUB, OPEN APPROACH (08/30/16) SUPPLEMENT R FEM ART WITH SYNTH SUB, OPEN APPROACH (09/20/16) Family History: States: Unknown Family Hx - Social History Hx Tobacco Use: Yes Hx Alcohol Use: No Hx Substance Use: Yes - Immunization History Hx Tetanus Toxoid Vaccination: Yes (unsure) Hx Influenza Vaccination: No (unsure) Hx Pneumococcal Vaccination: Yes (unsure) Review Of Systems Except As Marked, All Systems Reviewed And Found Negative. Skin: Positive for: Other (Bleeding from right groin) Physical Exam - Physical Exam Appears: No Acute Distress Skin: Normal Color, Warm, Dry Cardiovascular: Rhythm Regular Respiratory: Normal Breath Sounds Gastrointestinal/Abdominal: Normal Exam Male Genital: Inguinal Swelling Extremity: Pedal Edema, Other (Pulsatile mass in right groin with central rupture site filled with clot.) Neurological/Psych: Oriented x3, Normal Speech, Normal Cognition ED Course And Treatment - Laboratory Results Result Diagrams: 11/26/16 11:08 11/26/16 11:08 Lab Interpretation: Abnormal (WBC 14.5, Hgb 10.9, Na 130, BUN 39, Cr 1.5) - Physician Consult Information Outcome Of Conversation: Case discussed with Dr Lorenzo. He will take the patient to the OR tonight. Disposition - Disposition Disposition: HOSPITALIZED Disposition Time: 00:08 Condition: GUARDED - POA Present On Arrival: None - Clinical Impression Clinical Impression: Femoral artery aneurysm, right, H/O ruptured arterial aneurysm
[2016-11-26 23:11] LABS: BASO % 0.2 % (0.0-2.0); EOS # 0.1 K/uL (0.0-0.7); EOS % 0.7 % (0.0-4.0); HEMATOCRIT 32.6 % (35.0-51.0); LYMPH # 0.7 K/uL (1.0-4.3); LYMPH % 4.9 % (20.0-40.0); MEAN CELL VOLUME 85.6 fL (80.0-94.0); MEAN CORPUSCULAR HEMOGLOBIN 28.5 pg (27.0-31.0); MEAN CORPUSCULAR HGB CONC 33.4 g/dL (33.0-37.0); MEAN PLATELET VOLUME 8.2 fL (7.2-11.7); MONO % 6.9 % (0.0-10.0); PLATELET COUNT 205 K/uL (130-400); RED CELL DISTRIBUTION WIDTH 17.1 % (11.5-14.5); WHITE BLOOD COUNT 14.5 K/uL (4.8-10.8)
[2016-11-26 23:22] LABS: POTASSIUM 4.9 mmol/L (3.6-5.2)
[2016-11-26 23:24] LABS: ALB/GLOB RATIO 0.9 (1.0-2.1); BILIRUBIN,TOTAL 0.6 mg/dL (0.2-1.3); CALCIUM 8.2 mg/dl (8.6-10.4)
[2016-11-26 23:26] LABS: INR 1.1
[2016-11-26] MEDS ORDERED: Sodium Chloride 0.9% 1,000 ML IV SCH (23:45)
[2016-11-26] MEDS ORDERED: Iohexol 240 200 ML IJ ONE (23:51)
[2016-11-26] MEDS ORDERED: HEPARIN-NS 5,000 UNITS/500 ML 5,000 UNIT/500 ML BAG IV ONE (23:52)
[2016-11-26] MEDS ORDERED: Vancomycin 1 gm/D5W 200 ml 1 GM/200 ML BAG IVPB ONE (23:53)
[2016-11-26] MEDS ORDERED: HYDROmorphone 0.5 mg/0.5 ml ISec IVP PRN (23:56)
[2016-11-27] MEDS ORDERED: Etomidate 20 mg/10ml Inj IV ONE (00:06)
[2016-11-27] MEDS ORDERED: Rocuronium 10 mg/ml (5 ml) ONE (00:06)
[2016-11-27] MEDS ORDERED: Propofol 10 mg/ml Inj (20 ML) ONE (00:07)
--- NOTE | 2016-11-27 00:22 | CP.PCM.HP ---
History of Present Illness - History of Present Illness History of Present Illness: Surgery: Dr. Lorenzo CC: bleeding from right groin HPI: Patient is a pleasant 70 y/o male w/ extensive vascular history presents complaining of right groin pulsatile bleeding that started acutely this evening. Patient has a known history of right groin femoral artery pseudo- aneurysm. Patient currently states the bleeding has stopped. He denies any pain to the right leg or groin. He denies loss of sensation or ROM in the right leg. He denies dizziness, SOB, chest pain, fever. PMH: HTN, DM, PAD, pancreatic cyst, carotid stenosis s/p CEA, right femoral pseudo-aneurysm, bacteremia PSH: CEA, right femoral endarterectomy, right femoral stent placement Present on Admission - Present on Admission Any Indicators Present on Admission: No Review of Systems - Review of Systems All systems: reviewed and no additional remarkable complaints except Review of Systems: unless stated in HPI Past Patient History - Infectious Disease Hx of Infectious Diseases: None - Tetanus Immunizations Tetanus Immunization: Unknown - Past Medical History & Family History Past Medical History?: Yes - Past Social History Smoking Status: Heavy Smoker > 10 Cigarettes Daily - CARDIAC Hx Hypertension: Yes - PULMONARY Hx Respiratory Disorders: No - NEUROLOGICAL Hx Vertigo: Yes - HEENT Other/Comment: glasses for reading - RENAL Hx Chronic Kidney Disease: No - ENDOCRINE/METABOLIC Hx Endocrine Disorders: Yes Hx Diabetes Mellitus Type 1: Yes - HEMATOLOGICAL/ONCOLOGICAL Hx Anemia: Yes - INTEGUMENTARY Hx Dermatological Problems: No - MUSCULOSKELETAL/RHEUMATOLOGICAL Hx Arthritis: Yes Hx Fractures: Yes (rt wrist) - GASTROINTESTINAL Hx Crohn's Disease: No Hx Diverticulitis: No Hx Gall Bladder Disease: Yes Hx Gastritis: No Hx Pancreatitis: Yes - GENITOURINARY/GYNECOLOGICAL Hx Prostate Problems: Yes (BPH) - PSYCHIATRIC Hx Depression: Yes Hx Substance Use: Yes - SURGICAL HISTORY Hx Carotid Endarterectomy: Yes (L CEA) - ANESTHESIA Hx Anesthesia: Yes Hx Anesthesia Reactions: No Hx Malignant Hyperthermia: No Meds Allergies/Adverse Reactions: Allergies Allergy/AdvReac Type Severity Reaction Status Date / Time No Known Allergies Allergy Verified 10/23/16 14:42 Physical Exam - Constitutional Appears: Non-toxic, No Acute Distress - Head Exam Head Exam: ATRAUMATIC, NORMOCEPHALIC - Eye Exam Eye Exam: EOMI, Normal appearance - ENT Exam ENT Exam: Mucous Membranes Moist - Respiratory Exam Respiratory Exam: NORMAL BREATHING PATTERN. absent: Respiratory Distress - Cardiovascular Exam Cardiovascular Exam: REGULAR RHYTHM. absent: Tachycardia - GI/Abdominal Exam GI & Abdominal Exam: Soft. absent: Distended, Tenderness - Extremities Exam Additional comments: right groin wound w/ hematoma, old dry blood spanning entirety of right leg. Nontender. pulsatile Results - Vital Signs Recent Vital Signs: Last Vital Signs Temp 97.9 F 11/26/16 23:58 Pulse 85 11/26/16 23:58 Resp 20 11/26/16 23:58 BP 99/58 L 11/26/16 23:58 Pulse Ox 99 11/26/16 23:58 - Labs Result Diagrams: 11/26/16 11:08 11/26/16 11:08 Labs: Laboratory Results - last 24 hr 11/26/16 11/26/16 11/26/16 11:08 11:08 11:08 WBC 14.5 H D RBC 3.81 L Hgb 10.9 L Hct 32.6 L MCV 85.6 MCH 28.5 MCHC 33.4 RDW 17.1 H Plt Count 205 MPV 8.2 Neut % (Auto) 87.3 H Lymph % (Auto) 4.9 L [place] % (Auto) 6.9 Eos % (Auto) 0.7 Baso % (Auto) 0.2 Neut # 12.6 H Lymph # 0.7 L [place] # 1.0 H Eos # 0.1 Baso # 0.0 PT 12.7 H INR 1.1 APTT 30 Sodium 130 L Potassium 4.9 Chloride 96 L Carbon Dioxide 20 L Anion Gap 19 BUN 39 H Creatinine 1.5 Est GFR ( Amer) 56 Est GFR (Non-Af Amer) 47 Random Glucose 187 H Calcium 8.2 L Total Bilirubin 0.6 AST 23 ALT 26 Alkaline Phosphatase 158 H D Total Protein 7.0 Albumin 3.4 L Globulin 3.7 Albumin/Globulin Ratio 0.9 L Blood Type Antibody Screen 11/26/16 11:08 WBC RBC Hgb Hct MCV MCH MCHC RDW Plt Count MPV Neut % (Auto) Lymph % (Auto) [place] % (Auto) Eos % (Auto) Baso % (Auto) Neut # Lymph # [place] # Eos # Baso # PT INR APTT Sodium Potassium Chloride Carbon Dioxide Anion Gap BUN Creatinine Est GFR ( Amer) Est GFR (Non-Af Amer) Random Glucose Calcium Total Bilirubin AST ALT Alkaline Phosphatase Total Protein Albumin Globulin Albumin/Globulin Ratio Blood Type O POSITIVE Antibody Screen Negative Assessment & Plan - Assessment and Plan (Free Text) Assessment: 70 y/o male with infected right femoral artery aneurysm rupture Plan: -for or tonight for right groin exploration, possible bypass -NPO -IVF -type and cross -IV abx -ICU admission, continuous monitoring -hold anticoagulation at this time -f/u daily labs -transfuse as needed -d/w Dr. Maura Restrepo PGY3
[2016-11-27] MEDS ORDERED: Lactated Ringer's 1,000 ML IV ONE (00:35)
[2016-11-27 00:41] LABS: ACANTHOCYTES SLIGHT; EOSINOPHIL 2 % (0-4); NEUTROPHIL 86 % (50-75); TOTAL CELLS COUNTED 100
[2016-11-27] MEDS ORDERED: Succinylcholine Chloride 20 mg/ml Syr (5 ml) IV ONE (01:04)
[2016-11-27] MEDS ORDERED: Phenylephrine 10 mg/ml Inj ONE (01:05)
[2016-11-27] MEDS ORDERED: Neostigmine Methylsulfate 3mg/3ml Syringe IV ONE (02:06)
--- NOTE | 2016-11-27 02:50 | PCM.SURG1 ---
Surgeon's Initial Post Op Note - Surgeon's Notes Surgeon: Dr. Lorenzo Slab Lifting Engineer: Dr. Zayas PGY3 Type of Anesthesia: General Endo Anesthesia Administered By: Dr. Garcia Pre-Operative Diagnosis: ruptured infected right femoral artery pseudo-aneurysm Operative Findings: see operative report Post-Operative Diagnosis: same Operation Performed: emergent repair of ruptured right femoral artery pseudo- aneurysm with proximal ligatation and removal of femoral artery stent and patch Specimen/Specimens Removed: wound culture groin x 2, wound culture superior groin x1, stent and patch Estimated Blood Loss: EBL {In ML}: 200 Blood Products Given: N/A Drains Used: No Drains Post-Op Condition: Fair Date of Surgery/Procedure: 11/27/16 Time of Surgery/Procedure: 02:51
--- NOTE | 2016-11-27 03:14 | CP.PCM.CON ---
<Oscar Martin Nilesh - Last Filed: 11/27/16 03:47> History of Present Illness - History of Present Illness History of Present Illness: 70 yo M with PMHx of peripheral artery disease, carotid stenosis s/p carotid endarterectomy, ruptured right femoral pseudoaneurysm, dilated common bile duct , DM, HTN, bacteremia, depression, presented to the ED for right groin pulsatile bleeding that started acutely last night at 10pm while the patient was watching TV. He was taken to the OR and is now s/p emergent repair of ruptured right femoral artery pseudo-aneurysm with proximal ligatation and removal of femoral artery stent and patch. On 10/18/16 the patient had a ruptured right common femoral artery pseudoaneurysm and was taken to the OR with repair and stent placement. He denies any pain to the right leg or groin. He denies loss of sensation or ROM in the right leg. He denies dizziness, SOB, chest pain, fever. PMD: Dr Ambrose ([facility]) PMHx: peripheral artery disease, carotid stenosis s/p carotid endarterectomy, ruptured right femoral pseudoaneurysm, dilated common bile duct, DM, HTN, bacteremia, depression PSHx: left carotid endarterectomy 08/2016, right femoral endarterectomy w/ Bovine patch closure 08/2016, repair of ruptured right femoral artery pseudoaneurysm w/ stent placement 09/2016 Allergies: NKA Home Medications: amlodipine 10mg po qd, duloxetine 40mg po hs, ferrous sulfate 325mg po bid, finasteride 5mg po qd, fluticasone propionate 2 spr emma qd, glipizide 2.5mg po acbd, metoprolol tartrate 25mg po bid, mirtazapine 30mg po hs , rosuvastatin 10mg po qpm, tamsulosin 0.4mg po qd, lipase/protease/amylase 2 tab po tid FamHx: denies SocialHx: smokes 3 ppd since 1965; heavy drinker in past, stopped drinking when diagnosed with pancreatitis ~10 yrs ago; drug use in 20s-30s including Marijuana , cocaine, barbituates, amphetamines; 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 absent: Chills, Fever - EENT Eyes: absent: Change in Vision Ears: absent: Ear Pain Nose/Mouth/Throat: absent: Nasal Congestion - Cardiovascular Cardiovascular: absent: Chest Pain, Diaphoresis, Irregular Heart Rhythm - Respiratory Respiratory: Wheezing. absent: Cough, Dyspnea - Gastrointestinal Gastrointestinal: absent: Abdominal Pain, Constipation, Diarrhea - Genitourinary Genitourinary: absent: Dysuria - Musculoskeletal Musculoskeletal: Back Pain. absent: Myalgias - Integumentary Integumentary: absent: Lesions - Neurological Neurological: absent: Confusion, Convulsions, Dizziness - Hematologic/Lymphatic Hematologic: absent: Easy Bleeding Past Patient History - Infectious Disease Hx of Infectious Diseases: None - Tetanus Immunizations Tetanus Immunization: Unknown - Past Medical History & Family History Past Medical History?: Yes - Past Social History Smoking Status: Heavy Smoker > 10 Cigarettes Daily - CARDIAC Hx Hypertension: Yes - PULMONARY Hx Respiratory Disorders: No - NEUROLOGICAL Hx Vertigo: Yes - HEENT Other/Comment: glasses for reading - RENAL Hx Chronic Kidney Disease: No - ENDOCRINE/METABOLIC Hx Endocrine Disorders: Yes Hx Diabetes Mellitus Type 1: Yes - HEMATOLOGICAL/ONCOLOGICAL Hx Anemia: Yes - INTEGUMENTARY Hx Dermatological Problems: No - MUSCULOSKELETAL/RHEUMATOLOGICAL Hx Arthritis: Yes Hx Fractures: Yes (rt wrist) - GASTROINTESTINAL Hx Crohn's Disease: No Hx Diverticulitis: No Hx Gall Bladder Disease: Yes Hx Gastritis: No Hx Pancreatitis: Yes - GENITOURINARY/GYNECOLOGICAL Hx Prostate Problems: Yes (BPH) - PSYCHIATRIC Hx Depression: Yes Hx Substance Use: Yes - SURGICAL HISTORY Hx Carotid Endarterectomy: Yes (L CEA) - ANESTHESIA Hx Anesthesia: Yes Hx Anesthesia Reactions: No Hx Malignant Hyperthermia: No Meds Allergies/Adverse Reactions: Allergies Allergy/AdvReac Type Severity Reaction Status Date / Time No Known Allergies Allergy Verified 10/23/16 14:42 - Medications Medications: Current Medications Amlodipine Besylate (Norvasc) 10 mg PO DAILY [facility] Duloxetine HCl (Cymbalta) 40 mg PO HS [facility] Famotidine (Pepcid) 20 mg IVP Q12 [facility] Ferrous Sulfate (Feosol) 325 mg PO BID [facility] Finasteride (Proscar) 5 mg PO DAILY [facility] Fluticasone Propionate (Flonase) 2 spr EMMA DAILY [facility] Glipizide (Glucotrol Xl) 2.5 mg PO ACBD [facility] Home Med (Lipase/Protease/Amylase [Creon Dr 24,000 Units Capsule]) 2 tab PO TID [facility] Hydromorphone HCl (Dilaudid) 0.5 mg IVP Q4H PRN PRN Reason: Pain, moderate (4-7) Hydromorphone HCl (Dilaudid) 1 mg IVP Q4H PRN PRN Reason: Pain, severe (8-10) Last Admin: 11/27/16 02:36 Dose: 1 mg Sodium Chloride (Sodium Chloride 0.9%) 1,000 mls @ 125 mls/hr IV .Q8H [facility] Last Admin: 11/27/16 02:51 Dose: 125 mls/hr Vancomycin HCl 1,000 mg/ (Sodium Chloride) 250 mls @ 166.6 mls/hr IVPB Q12H [facility] Last Admin: 11/27/16 02:55 Dose: Not Given Insulin Human Regular (Novolin R) 0 unit SC ACHS [facility] PRN Reason: Protocol Metoprolol Tartrate (Lopressor) 25 mg PO BID@0900,2100 [facility] Mirtazapine (Remeron) 30 mg PO HS [facility] Ondansetron HCl (Zofran Inj) 4 mg IVP Q6H PRN PRN Reason: Nausea/Vomiting Rosuvastatin Calcium (Crestor) 10 mg PO QPM [facility] Tamsulosin HCl (Flomax) 0.4 mg PO DAILY [facility] Physical Exam - Constitutional Appears: In Acute Distress Additional comments: c/o right groin pain s/p OR - Head Exam Head Exam: ATRAUMATIC, NORMAL INSPECTION - Eye Exam Eye Exam: EOMI Pupil Exam: PERRL - ENT Exam ENT Exam: Mucous Membranes Moist - Neck Exam Neck exam: Positive for: Normal Inspection. Negative for: Lymphadenopathy - Respiratory Exam Respiratory Exam: Wheezes - Cardiovascular Exam Cardiovascular Exam: REGULAR RHYTHM, RRR, +S1, +S2. absent: Bradycardia, Tachycardia, Irregular Rhythm, Systolic Murmur - GI/Abdominal Exam GI & Abdominal Exam: Normal Bowel Sounds, Soft. absent: Distended, Organomegaly , Tenderness - Rectal Exam Rectal Exam: Deferred - Extremities Exam Extremities exam: Positive for: normal inspection. Negative for: calf tenderness, pedal edema Additional comments: dressing in right groin c/d/i - Neurological Exam Neurological exam: Alert, Oriented x3 - Psychiatric Exam Psychiatric exam: Agitated, Normal Affect, Normal Mood - Skin Skin Exam: Dry, Intact, Normal Color, Warm Results - Vital Signs Recent Vital Signs: Last Vital Signs Temp 97.6 F 11/27/16 02:30 Pulse 84 11/27/16 02:30 Resp 17 11/27/16 02:30 BP 133/65 11/27/16 02:30 Pulse Ox 99 11/27/16 02:30 - Labs Result Diagrams: 11/26/16 11:08 11/26/16 11:08 Labs: Laboratory Results - last 24 hr 11/26/16 11/26/16 11/26/16 11:08 11:08 11:08 WBC 14.5 H D RBC 3.81 L Hgb 10.9 L Hct 32.6 L MCV 85.6 MCH 28.5 MCHC 33.4 RDW 17.1 H Plt Count 205 MPV 8.2 Neut % (Auto) 87.3 H Lymph % (Auto) 4.9 L Hamblen % (Auto) 6.9 Eos % (Auto) 0.7 Baso % (Auto) 0.2 Neut # 12.6 H Lymph # 0.7 L Hamblen # 1.0 H Eos # 0.1 Baso # 0.0 Neutrophils % (Manual) 86 H Band Neutrophils % 2 Lymphocytes % (Manual) 6 L Monocytes % (Manual) 4 Eosinophils % (Manual) 2 Platelet Estimate Normal Poikilocytosis (manual Slight Anisocytosis (manual) Slight Acanthocytes (Spur) Slight PT 12.7 H INR 1.1 APTT 30 Sodium 130 L Potassium 4.9 Chloride 96 L Carbon Dioxide 20 L Anion Gap 19 BUN 39 H Creatinine 1.5 Est GFR ( Amer) 56 Est GFR (Non-Af Amer) 47 Random Glucose 187 H Calcium 8.2 L Total Bilirubin 0.6 AST 23 ALT 26 Alkaline Phosphatase 158 H D Total Protein 7.0 Albumin 3.4 L Globulin 3.7 Albumin/Globulin Ratio 0.9 L Blood Type Antibody Screen 11/26/16 11:08 WBC RBC Hgb Hct MCV MCH MCHC RDW Plt Count MPV Neut % (Auto) Lymph % (Auto) Hamblen % (Auto) Eos % (Auto) Baso % (Auto) Neut # Lymph # Hamblen # Eos # Baso # Neutrophils % (Manual) Band Neutrophils % Lymphocytes % (Manual) Monocytes % (Manual) Eosinophils % (Manual) Platelet Estimate Poikilocytosis (manual Anisocytosis (manual) Acanthocytes (Spur) PT INR APTT Sodium Potassium Chloride Carbon Dioxide Anion Gap BUN Creatinine Est GFR ( Amer) Est GFR (Non-Af Amer) Random Glucose Calcium Total Bilirubin AST ALT Alkaline Phosphatase Total Protein Albumin Globulin Albumin/Globulin Ratio Blood Type O POSITIVE Antibody Screen Negative Assessment & Plan (1) S/P aneurysm repair Assessment and Plan: s/p emergent repair of ruptured right femoral artery pseudo-aneurysm with proximal ligatation and removal of femoral artery stent and patch; ruptured pseudo-aneurysm possibly infected - afebrile, wbc 14.5 Vascular Surgeon, Dr Lorenzo, on case Infectious Disease, Dr Herrera, on case F/U wound culture and gram stain Pain control with hydromorphone Zofran for nausea/vomiting Vancomycin 1g ivpb q12h Status: Acute (2) Elevated alkaline phosphatase level Assessment and Plan: alk phos elevated at 158 per chart review, patient with dilated CBD on prior admission patient was advised to follow up with outpatient elective cholecystectomy Status: Acute (3) STEVEN (acute kidney injury) Assessment and Plan: BUN 39 possibly secondary to hypotension, hypotension responded well to NS bolus follow morning labs Status: Acute (4) History of diabetes mellitus Assessment and Plan: RISS - low dose con't home med glipizide 2.5mg po acbd con't home med rosuvastatin 10mg po qpm accuchecks achs Status: Chronic (5) Hypertension Assessment and Plan: BP well controlled con't home med amlodipine 10mg po qd con't home med metoprolol tartrate 25mg po bid Status: Chronic (6) History of anemia Assessment and Plan: Hgb 10.9 on admission; stable from prior admissions; no active bleeding noted con't home med ferrous sulfate 325mg po bid Status: Chronic (7) Chronic pancreatitis Assessment and Plan: con't home med Creon [id number] tid Status: Chronic (8) History of depression Assessment and Plan: con't home med duloxetine 40mg po hs con't home med mirtazapine 30mg po hs Status: Chronic (9) History of BPH Assessment and Plan: con't home med finasteride 5mg po qd Status: Chronic (10) Prophylactic measure Assessment and Plan: GI: pepcid 20mg ivp q12 DVT: AC/SCDs not indicated at this time due to recent surgery of LE/PVD Diet: liquid, will advance as tolerated to diabetic diet Status: Acute <Griffin,Diaz Sade - Last Filed: 11/27/16 06:35> Meds - Medications Medications: Current Medications Amlodipine Besylate (Norvasc) 10 mg PO DAILY [facility] Duloxetine HCl (Cymbalta) 40 mg PO HS [facility] Famotidine (Pepcid) 20 mg IVP Q12 [facility] Ferrous Sulfate (Feosol) 325 mg PO BID [facility] Finasteride (Proscar) 5 mg PO DAILY [facility] Fluticasone Propionate (Flonase) 2 spr [facility]MA DAILY [facility] Glipizide (Glucotrol Xl) 2.5 mg PO ACBD [facility] Home Med (Lipase/Protease/Amylase [Creon Dr 24,000 Units Capsule]) 2 tab PO TID [facility] Hydromorphone HCl (Dilaudid) 1 mg IVP Q3H PRN PRN Reason: Pain, severe (8-10) Last Admin: 11/27/16 05:16 Dose: 1 mg Hydromorphone HCl (Dilaudid) 0.5 mg IVP Q3H PRN PRN Reason: Pain, moderate (4-7) Sodium Chloride (Sodium Chloride 0.9%) 1,000 mls @ 125 mls/hr IV .Q8H [facility] Last Admin: 11/27/16 02:51 Dose: 125 mls/hr Vancomycin HCl 1,000 mg/ (Sodium Chloride) 250 mls @ 166.6 mls/hr IVPB Q12H [facility] Last Admin: 11/27/16 02:55 Dose: Not Given Insulin Human Regular (Novolin R) 0 unit SC ACHS [facility] PRN Reason: Protocol Metoprolol Tartrate (Lopressor) 25 mg PO BID@0900,2100 [facility] Mirtazapine (Remeron) 30 mg PO HS [facility] Ondansetron HCl (Zofran Inj) 4 mg IVP Q6H PRN PRN Reason: Nausea/Vomiting Rosuvastatin Calcium (Crestor) 10 mg PO QPM [facility] Tamsulosin HCl (Flomax) 0.4 mg PO DAILY [facility] Results - Vital Signs Recent Vital Signs: Last Vital Signs Temp 97.6 F 11/27/16 04:00 Pulse 100 H 11/27/16 06:02 Resp 20 11/27/16 06:02 BP 174/75 H 11/27/16 06:02 Pulse Ox 97 11/27/16 06:02 - Labs Result Diagrams: 11/26/16 11:08 11/26/16 11:08 Labs: Laboratory Results - last 24 hr 11/26/16 11/26/16 11/26/16 11:08 11:08 11:08 WBC 14.5 H D RBC 3.81 L Hgb 10.9 L Hct 32.6 L MCV 85.6 MCH 28.5 MCHC 33.4 RDW 17.1 H Plt Count 205 MPV 8.2 Neut % (Auto) 87.3 H Lymph % (Auto) 4.9 L Hamblen % (Auto) 6.9 Eos % (Auto) 0.7 Baso % (Auto) 0.2 Neut # 12.6 H Lymph # 0.7 L Hamblen # 1.0 H Eos # 0.1 Baso # 0.0 Neutrophils % (Manual) 86 H Band Neutrophils % 2 Lymphocytes % (Manual) 6 L Monocytes % (Manual) 4 Eosinophils % (Manual) 2 Platelet Estimate Normal Poikilocytosis (manual Slight Anisocytosis (manual) Slight Acanthocytes (Spur) Slight PT 12.7 H INR 1.1 APTT 30 Sodium 130 L Potassium 4.9 Chloride 96 L Carbon Dioxide 20 L Anion Gap 19 BUN 39 H Creatinine 1.5 Est GFR ( Amer) 56 Est GFR (Non-Af Amer) 47 Random Glucose 187 H Calcium 8.2 L Total Bilirubin 0.6 AST 23 ALT 26 Alkaline Phosphatase 158 H D Total Protein 7.0 Albumin 3.4 L Globulin 3.7 Albumin/Globulin Ratio 0.9 L Blood Type Antibody Screen 11/26/16 11:08 WBC RBC Hgb Hct MCV MCH MCHC RDW Plt Count MPV Neut % (Auto) Lymph % (Auto) Hamblen % (Auto) Eos % (Auto) Baso % (Auto) Neut # Lymph # Hamblen # Eos # Baso # Neutrophils % (Manual) Band Neutrophils % Lymphocytes % (Manual) Monocytes % (Manual) Eosinophils % (Manual) Platelet Estimate Poikilocytosis (manual Anisocytosis (manual) Acanthocytes (Spur) PT INR APTT Sodium Potassium Chloride Carbon Dioxide Anion Gap BUN Creatinine Est GFR ( Amer) Est GFR (Non-Af Amer) Random Glucose Calcium Total Bilirubin AST ALT Alkaline Phosphatase Total Protein Albumin Globulin Albumin/Globulin Ratio Blood Type O POSITIVE Antibody Screen Negative Assessment & Plan - Date & Time Date: 11/27/16 (I have seen and examined the patient. I agree with the findings and plan of care as documented by Dr. Martin. Patient s/p aneurysm repair. Managed by Dr. Lorenzo. ID consulted. On Vanco. Patient with acute kidney injury. Previously with episodes of hypotension. May be secondary to hypovolemia. History of hypertension. Previously hypotensive initially, now hypertensive. Continue home meds. Adjust as necessary. Continue home meds for history of diabetes. NISS and accuchecks. May eventually need GI consult due to dilated CBD. Monitor for acute changes.) Time: 06:32 Attending/Attestation - Attestation I have personally seen and examined this patient.: Yes I have fully participated in the care of the patient.: Yes I have reviewed all pertinent clinical information: Yes
[2016-11-27] MEDS ORDERED: HYDROmorphone 0.5 mg/0.5 ml ISec IM STA (03:18)
[2016-11-27] MEDS ORDERED: HYDROmorphone 0.5 mg/0.5 ml ISec IVP PRN (03:20)
[2016-11-27 06:39] LABS: BASO % 0.2 % (0.0-2.0); EOS % 0.2 % (0.0-4.0); HEMATOCRIT 25.8 % (35.0-51.0); LYMPH # 0.7 K/uL (1.0-4.3); LYMPH % 5.8 % (20.0-40.0); MEAN CELL VOLUME 85.5 fL (80.0-94.0); MEAN CORPUSCULAR HEMOGLOBIN 28.7 pg (27.0-31.0); MEAN CORPUSCULAR HGB CONC 33.5 g/dL (33.0-37.0); MEAN PLATELET VOLUME 8.2 fL (7.2-11.7); MONO # 0.9 K/uL (0.0-0.8); MONO % 7.7 % (0.0-10.0); PLATELET COUNT 185 K/uL (130-400); RED CELL DISTRIBUTION WIDTH 16.8 % (11.5-14.5); WHITE BLOOD COUNT 12.2 K/uL (4.8-10.8)
[2016-11-27 06:49] LABS: INR 1.2
--- NOTE | 2016-11-27 06:53 | OP ---
PROCEDURE DATE: 11/27/2016 PREOPERATIVE DIAGNOSIS: Ruptured common femoral pseudoaneurysm repair. POSTOPERATIVE DIAGNOSIS: Ruptured common femoral pseudoaneurysm repair. SURGEON: Noé Lorenzo Jr., MD MEAT COUNTER WORKER: . ANESTHESIOLOGIST: Dr. Garcia. INDICATION: The patient is a 70-year-old man with history of previous catheterization, thrombosis in the groin, subsequent repair, subsequent infection, development of pseudoaneurysm, subsequent stent placement and now with rupture of the vessel. OPERATIVE FINDINGS: Initially, we approached this by identifying the artery above and below the site of rupture. Initially, after achieving proximal control, we then dissected out the area of the previously placed patch, we removed the previously placed stent, removed the patch any part of it that was visible. We then oversewn this, but the oversewn was not as tight as I would like. Although, there was fairly good backbleeding from the superficial femoral artery. After this had been done, we then turned out attention to ligating the distal external iliac artery just above the groin to make sure that there would not be any hemorrhage or other bleeding. After this had been managed, there was no significant bleeding in the groin. We then approximated the area which have ruptured, we approximated this and then the skin was approximated. The groin incision used to control the external iliac artery was then closed in standard fashion with stitches and skin clips. The blood loss of the procedure itself was 200 to 250 mL; however, there is extensive blood loss prior to initiating procedure. The operation carried out is emergency repair/ligation of ruptured common femoral pseudoaneurysm. Cultures were taken both of the area above and below. There was adenopathy in the groin. Noé Lorenzo Jr., MD
[2016-11-27 06:58] LABS: CHLORIDE 100 mmol/L (98-107); POTASSIUM 4.9 mmol/L (3.6-5.2); SODIUM 129 mmol/L (132-148)
[2016-11-27 07:00] LABS: AST/SGOT 18 U/L (17-59); BILIRUBIN,TOTAL 0.5 mg/dL (0.2-1.3); CARBON DIOXIDE 12 mmol/L (22-30); GFR AFRICAN-AMERICAN > 60
[2016-11-27 07:01] LABS: ALB/GLOB RATIO 0.8 (1.0-2.1); ALKALINE PHOSPHATASE 128 U/L (38-126); ALT/SGPT 29 U/L (21-72); BLOOD UREA NITROGEN 34 mg/dL (9-20); CALCIUM 8.1 mg/dl (8.6-10.4); GLUCOSE,RANDOM 236 mg/dL (75-110); MAGNESIUM 1.6 mg/dL (1.6-2.3); PHOSPHOROUS 2.8 mg/dL (2.5-4.5); TOTAL PROTEIN 6.3 g/dL (6.3-8.3)
[2016-11-27] MEDS ORDERED: GlipiZIDE 2.5 mg SR Tab PO SCH (07:30)
[2016-11-27] MEDS: (Novolin R) Insulin Human Regular 100 units/ml vial SC SCH ×4 (08:06→21:31)
[2016-11-27 09:01] LABS: EOSINOPHIL 1 % (0-4); NEUTROPHIL 83 % (50-75); TOTAL CELLS COUNTED 100
--- NOTE | 2016-11-27 09:54 | CP.PCM.PN ---
Subjective - Date & Time of Evaluation Date of Evaluation: 11/27/16 Time of Evaluation: 09:35 - Subjective Subjective: Hospitalist Consult Progress Note Patient was seen and examined at 9:35 AM 11/27/16 ICU Bed #15 Very pleasant 70 year old male (with an extensive medical history: please see Assessment and Plan below) who is S/P repair of ruptured right femoral artery pseudoaneurysm with proximal ligation and removal of femoral artery stent and patch. Currently upon FULL ROS: Right Lower leg feels numb NO chest pain NO palpitations SOB is always present (states he continues to smoke 3 packs of cigarettes per day) NO abdominal pain NO bowel movement since Thursday11/23/16 (states that 1 bowel movement every 3 to 4 days is normal for him) NO burning/pain with urination NO headache NO new changes in vision NO new changes in hearing Physical Exam: - Constitutional Appears: Non-toxic, No Acute Distress - Head Exam Head Exam: NORMAL INSPECTION - Eye Exam Eye Exam: EOMI. PERRLA absent: Nystagmus, Scleral icterus, - ENT Exam ENT Exam: Mucous Membranes Moist, NO lymphadenopathy, NO thyromegaly, Mucous membranes are moist, NO pharyngeal erythema/exudate - Respiratory Exam Respiratory Exam: CTA B/L NO R/R/W - Cardiovascular Exam Cardiovascular Exam: HOLOSYTOLIC MURMUR. absent: JVD - GI/Abdominal Exam GI & Abdominal Exam: Soft, Normal Bowel Sounds, NO HSM, NO guarding, NO rebound tenderness. Midabdominal Bruit - Extremities Exam Extremities Exam: NO edema. Right Lower leg to foot are cool to the touch and dusky/pale appearance. Right LE pulses could not be palpated but confirmed with doppler by Nurse Deepak. Capillary refill of the Right LE is 4 to 5 seconds. Left LE is warm to the touch, normal color, capillary refill is 3 seconds - Neurological Exam Neurological Exam: Alert, Awake, Oriented x3. When asking patient questions he has a hard time recollecting information and states that this is normal for him - Psychiatric Exam Psychiatric exam: Normal Affect, Normal Mood - Skin Skin Exam: Dry, Intact, Normal Color, Warm Assessment & Plan (1) S/P aneurysm repair Assessment and Plan: S/P emergent repair of ruptured right femoral artery pseudo-aneurysm with proximal ligatation and removal of femoral artery stent and patch; ruptured pseudo-aneurysm (possibly infected) Vascular Surgeon, Dr Lorenzo is the Primary on the case Infectious Disease, Dr Herrera F/U wound culture and gram stain F/U Blood Culture Pain control with Hydromorphone Zofran for nausea/vomiting Vancomycin 1g ivpb q12h Status: Acute (2) Elevated alkaline phosphatase level Assessment and Plan: Alk phos elevated at 158 Per chart review, patient with Hx Dilated CBD On prior admission patient was advised to follow up with outpatient elective cholecystectomy Status: Acute (3) STEVEN (acute kidney injury) Assessment and Plan: BUN/Cr at 34/1.4 and trending down with IVF Possibly secondary to hypotension, hypotension responded well to NS bolus Status: Acute (4) Hyponatremia Currently at 129 Monitor (5) Acidosis likely Metabolic Bicarb at 13 Could be secondary to recent surgery vs possible infected right femoral artery catheter which was removed vs compounded by the use of Glipizide for DM 2 Patient is on Vancomycin Glipizide has been discontinued (6). Abdominal Bruit Abdominal Aorta U/S ordered (7) History of Diabetes Mellitus 2 Assessment and Plan: RISS - low dose Holding Glipizide because of the acidosis Rosuvastatin 10mg PO HS Accuchecks achs Status: Chronic (8) History Hypertension Assessment and Plan: BP well controlled Amlodipine 10mg PO 1x/day Metoprolol tartrate 25mg PO 2x/day Status: Chronic (9) History of anemia Assessment and Plan: Hgb 10.9 on admission; stable from prior admissions; no active bleeding noted Ferrous Sulfate 325mg PO 2x/day Status: Chronic (10) History Chronic pancreatitis Assessment and Plan: Creon [id number] PO TID [facility] Meals Status: Chronic (11) History of depression Assessment and Plan: Duloxetine 40mg PO HS Mirtazapine 30mg PO HS Status: Chronic (12) History of BPH Assessment and Plan: Finasteride 5mg PO 1x/day Flomax 0.4 mg PO 1x/day Status: Chronic (13). History of Constipation Colace 100 mg PO TID (14) Prophylactic measure Assessment and Plan: GI: pepcid 20mg ivp q12 DVT: AC/SCDs not indicated at this time due to recent surgery of LE/PVD Diet: liquid, will advance as tolerated to diabetic diet Objective - Vital Signs/Intake and Output Vital Signs (last 24 hours): Temp Pulse Resp BP Pulse Ox 97.6 F 93 H 14 167/67 H 99 11/27/16 04:00 11/27/16 07:00 11/27/16 07:00 11/27/16 07:02 11/27/16 07:00 Intake and Output: 11/27/16 11/27/16 06:59 18:59 Intake Total 500 125 Output Total 290 45 Balance 210 80 - Medications Medications: Current Medications Amlodipine Besylate (Norvasc) 10 mg PO DAILY [facility] Duloxetine HCl (Cymbalta) 40 mg PO HS [facility] Famotidine (Pepcid) 20 mg IVP Q12 [facility] Ferrous Sulfate (Feosol) 325 mg PO BID [facility] Finasteride (Proscar) 5 mg PO DAILY [facility] Fluticasone Propionate (Flonase) 2 spr EMMA DAILY [facility] Home Med (Lipase/Protease/Amylase [Creon Dr 24,000 Units Capsule]) 2 tab PO TID [facility] Hydromorphone HCl (Dilaudid) 1 mg IVP Q3H PRN PRN Reason: Pain, severe (8-10) Last Admin: 11/27/16 08:32 Dose: 1 mg Hydromorphone HCl (Dilaudid) 0.5 mg IVP Q3H PRN PRN Reason: Pain, moderate (4-7) Sodium Chloride (Sodium Chloride 0.9%) 1,000 mls @ 125 mls/hr IV .Q8H [facility] Last Admin: 11/27/16 02:51 Dose: 125 mls/hr Vancomycin HCl 1,000 mg/ (Sodium Chloride) 250 mls @ 166.6 mls/hr IVPB Q12H [facility] Last Admin: 11/27/16 02:55 Dose: Not Given Insulin Human Regular (Novolin R) 0 unit SC ACHS [facility] PRN Reason: Protocol Last Admin: 11/27/16 08:06 Dose: 4 unit Metoprolol Tartrate (Lopressor) 25 mg PO BID@0900,2100 [facility] Mirtazapine (Remeron) 30 mg PO HS [facility] Ondansetron HCl (Zofran Inj) 4 mg IVP Q6H PRN PRN Reason: Nausea/Vomiting Rosuvastatin Calcium (Crestor) 10 mg PO QPM [facility] Tamsulosin HCl (Flomax) 0.4 mg PO DAILY [facility] - Labs Labs: 11/27/16 06:33 11/27/16 06:28 PT 13.1 SECONDS (9.7-12.2) H 11/27/16 06:28 INR 1.2 11/27/16 06:28 APTT 29 SECONDS (21-34) 11/27/16 06:28
--- NOTE | 2016-11-27 10:41 | CP.PCM.CON ---
<Darwin Duffy - Last Filed: 11/27/16 17:20> Meds Allergies/Adverse Reactions: Allergies Allergy/AdvReac Type Severity Reaction Status Date / Time No Known Allergies Allergy Verified 10/23/16 14:42 - Medications Medications: Current Medications Amlodipine Besylate (Norvasc) 10 mg PO DAILY [facility] Last Admin: 11/27/16 12:20 Dose: 10 mg Docusate Sodium (Colace) 100 mg PO TID [facility] Last Admin: 11/27/16 14:34 Dose: 100 mg Duloxetine HCl (Cymbalta) 40 mg PO HS [facility] Famotidine (Pepcid) 20 mg IVP Q12 [facility] Last Admin: 11/27/16 12:20 Dose: 20 mg Ferrous Sulfate (Feosol) 325 mg PO BID [facility] Last Admin: 11/27/16 10:36 Dose: 325 mg Finasteride (Proscar) 5 mg PO DAILY [facility] Last Admin: 11/27/16 10:36 Dose: 5 mg Fluticasone Propionate (Flonase) 2 spr EMMA DAILY [facility] Last Admin: 11/27/16 14:34 Dose: 2 spr Home Med (Lipase/Protease/Amylase [Creon Dr 24,000 Units Capsule]) 2 tab PO TID [facility] Hydromorphone HCl (Dilaudid) 1 mg IVP Q3H PRN PRN Reason: Pain, severe (8-10) Last Admin: 11/27/16 12:29 Dose: 1 mg Hydromorphone HCl (Dilaudid) 0.5 mg IVP Q3H PRN PRN Reason: Pain, moderate (4-7) Vancomycin HCl 1,000 mg/ (Sodium Chloride) 250 mls @ 166.6 mls/hr IVPB Q12H [facility] Last Admin: 11/27/16 12:53 Dose: 166.6 mls/hr Insulin Human Regular (Novolin R) 0 unit SC ACHS [facility] PRN Reason: Protocol Last Admin: 11/27/16 12:20 Dose: 2 unit Metoprolol Tartrate (Lopressor) 25 mg PO BID@0900,2100 [facility] Last Admin: 11/27/16 10:36 Dose: 25 mg Mirtazapine (Remeron) 30 mg PO HS [facility] Ondansetron HCl (Zofran Inj) 4 mg IVP Q6H PRN PRN Reason: Nausea/Vomiting Rosuvastatin Calcium (Crestor) 10 mg PO QPM [facility] Tamsulosin HCl (Flomax) 0.4 mg PO DAILY [facility] Last Admin: 11/27/16 10:36 Dose: 0.4 mg Results - Vital Signs Recent Vital Signs: Last Vital Signs Temp 98.2 F 11/27/16 16:50 Pulse 80 11/27/16 17:02 Resp 23 11/27/16 17:02 BP 151/69 H 11/27/16 17:02 Pulse Ox 98 11/27/16 17:02 - Labs Result Diagrams: 11/27/16 11:26 11/27/16 06:28 Labs: Laboratory Results - last 24 hr 11/26/16 11/26/16 11/26/16 11:08 11:08 11:08 WBC 14.5 H D RBC 3.81 L Hgb 10.9 L Hct 32.6 L MCV 85.6 MCH 28.5 MCHC 33.4 RDW 17.1 H Plt Count 205 MPV 8.2 Neut % (Auto) 87.3 H Lymph % (Auto) 4.9 L Rabun % (Auto) 6.9 Eos % (Auto) 0.7 Baso % (Auto) 0.2 Neut # 12.6 H Lymph # 0.7 L Rabun # 1.0 H Eos # 0.1 Baso # 0.0 Neutrophils % (Manual) 86 H Band Neutrophils % 2 Lymphocytes % (Manual) 6 L Monocytes % (Manual) 4 Eosinophils % (Manual) 2 Platelet Estimate Normal Hypochromasia (manual) Poikilocytosis (manual Slight Anisocytosis (manual) Slight Ovalocytes [place] Cells Acanthocytes (Spur) Slight PT 12.7 H INR 1.1 APTT 30 Sodium 130 L Potassium 4.9 Chloride 96 L Carbon Dioxide 20 L Anion Gap 19 BUN 39 H Creatinine 1.5 Est GFR ( Amer) 56 Est GFR (Non-Af Amer) 47 POC Glucose (mg/dL) Random Glucose 187 H Lactic Acid Calcium 8.2 L Phosphorus Magnesium Total Bilirubin 0.6 AST 23 ALT 26 Alkaline Phosphatase 158 H D Total Protein 7.0 Albumin 3.4 L Globulin 3.7 Albumin/Globulin Ratio 0.9 L Blood Type Antibody Screen 11/26/16 11/27/16 11/27/16 11:08 06:28 06:28 WBC RBC Hgb Hct MCV MCH MCHC RDW Plt Count MPV Neut % (Auto) Lymph % (Auto) Rabun % (Auto) Eos % (Auto) Baso % (Auto) Neut # Lymph # Rabun # Eos # Baso # Neutrophils % (Manual) Band Neutrophils % Lymphocytes % (Manual) Monocytes % (Manual) Eosinophils % (Manual) Platelet Estimate Hypochromasia (manual) Poikilocytosis (manual Anisocytosis (manual) Ovalocytes [place] Cells Acanthocytes (Spur) PT 13.1 H INR 1.2 APTT 29 Sodium 129 L Potassium 4.9 Chloride 100 Carbon Dioxide 12 L Anion Gap 22 H BUN 34 H Creatinine 1.4 Est GFR ( Amer) > 60 Est GFR (Non-Af Amer) 50 POC Glucose (mg/dL) Random Glucose 236 H Lactic Acid Calcium 8.1 L Phosphorus 2.8 Magnesium 1.6 Total Bilirubin 0.5 AST 18 ALT 29 Alkaline Phosphatase 128 H Total Protein 6.3 Albumin 2.8 L Globulin 3.5 Albumin/Globulin Ratio 0.8 L Blood Type O POSITIVE Antibody Screen Negative 11/27/16 11/27/16 11/27/16 06:28 06:33 07:40 WBC 12.2 H RBC 3.02 L Hgb 8.6 L D Hct 25.8 L MCV 85.5 MCH 28.7 MCHC 33.5 RDW 16.8 H Plt Count 185 MPV 8.2 Neut % (Auto) 86.1 H Lymph % (Auto) 5.8 L Rab[place] % (Auto) 7.7 Eos % (Auto) 0.2 Baso % (Auto) 0.2 Neut # 10.5 H Lymph # 0.7 L Rabun # 0.9 H Eos # 0.0 Baso # 0.0 Neutrophils % (Manual) 83 H Band Neutrophils % 5 H Lymphocytes % (Manual) 5 L Monocytes % (Manual) 6 Eosinophils % (Manual) 1 Platelet Estimate Normal Hypochromasia (manual) Slight Poikilocytosis (manual Slight Anisocytosis (manual) Slight Ovalocytes Slight [place] Cells Slight Acanthocytes (Spur) PT INR APTT Sodium Potassium Chloride Carbon Dioxide Anion Gap BUN Creatinine Est GFR ( Amer) Est GFR (Non-Af Amer) POC Glucose (mg/dL) 300 H Random Glucose Lactic Acid 1.1 Calcium Phosphorus Magnesium Total Bilirubin AST ALT Alkaline Phosphatase Total Protein Albumin Globulin Albumin/Globulin Ratio Blood Type Antibody Screen 11/27/16 11/27/16 11/27/16 11:26 11:39 16:18 WBC 10.4 RBC 2.83 L Hgb 8.2 L Hct 24.1 L MCV 84.8 MCH 29.0 MCHC 34.2 RDW 17.0 H Plt Count 170 MPV 7.7 Neut % (Auto) 86.2 H Lymph % (Auto) 6.8 L Rab[place] % (Auto) 6.4 Eos % (Auto) 0.4 Baso % (Auto) 0.2 Neut # 9.0 H Lymph # 0.7 L Rabun # 0.7 Eos # 0.0 Baso # 0.0 Neutrophils % (Manual) 93 H Band Neutrophils % Lymphocytes % (Manual) 6 L Monocytes % (Manual) 1 Eosinophils % (Manual) Platelet Estimate Normal Hypochromasia (manual) Slight Poikilocytosis (manual Anisocytosis (manual) Slight Ovalocytes Slight [place] Cells Acanthocytes (Spur) PT INR APTT Sodium Potassium Chloride Carbon Dioxide Anion Gap BUN Creatinine Est GFR ( Amer) Est GFR (Non-Af Amer) POC Glucose (mg/dL) 251 H 298 H Random Glucose Lactic Acid Calcium Phosphorus Magnesium Total Bilirubin AST ALT Alkaline Phosphatase Total Protein Albumin Globulin Albumin/Globulin Ratio Blood Type Antibody Screen Attending/Attestation - Attestation I have personally seen and examined this patient.: Yes I have fully participated in the care of the patient.: Yes I have reviewed all pertinent clinical information: Yes Notes (Text): 11/27/16 17:20 I have seen and examined the patient. Medical records, lab studies, and imaging were reviewed by me and a management plan was formulated on multidisciplinary rounds with resident Dr. Gray. I agree with their above documented assessment and plan. Patient had ligation of right femoral artery that had a rupture of pseudoaneurysm. Monitoring right leg, patient will need either revascularization or amputation. Critical Care Time 35 minutes. Multi-disciplinary rounds were performed with house staff, nursing, speech therapy, respiratory therapy, pharmacy and nutrition with integrated input from the primary team/attending and other consulting services. The documented time is cumulative and includes review of patient data/exams/labs/chart review and examination of the patient on rounds and throughout the day; time is exclusive of any procedures or teaching time. <Wisam Gray E - Last Filed: 11/27/16 19:45> History of Present Illness - History of Present Illness History of Present Illness: ICU consult note HPI: Patient is a 70 year old male with past medical history of peripheral artery disease, carotid stenosis s/p carotid endarterectomy, ruptured right femoral pseudoaneurysm, dilated common bile duct, DM, HTN, bacteremia, depression who presented to the ED for right groin pulsatile bleeding that started yesterday at 10pm. Patient was immediately taken to the OR for an emergent repair of ruptured right femoral artery pseudo-aneurysm with proximal ligatation and removal of femoral artery stent and patch. Patient was transferred to the ICU for close monitoring postoperatively PMD: Dr Ambrose ([facility]) PMHx: peripheral artery disease, carotid stenosis s/p carotid endarterectomy, ruptured right femoral pseudoaneurysm, dilated common bile duct, DM, HTN, bacteremia, depression PSHx: left carotid endarterectomy 08/2016, right femoral endarterectomy w/ Bovine patch closure 08/2016, repair of ruptured right femoral artery pseudoaneurysm w/ stent placement 09/2016 FamHx: denies Allergies: NKDA SocialHx: smokes 3 ppd since 1965; heavy drinker in past, stopped drinking when diagnosed with pancreatitis ~10 yrs ago; drug use in 20s-30s including Marijuana , cocaine, barbituates, amphetamines; 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 absent: Chills, Fever, Headache - EENT Eyes: absent: Blurred Vision, Change in Vision Ears: absent: Dizziness - Cardiovascular Cardiovascular: absent: Chest Pain, Dyspnea, Dyspnea on Exertion, Edema, Lightheadedness, Palpitations, Syncope - Respiratory Respiratory: absent: Dyspnea - Gastrointestinal Gastrointestinal: absent: Abdominal Pain, Cramping, Nausea, Vomiting - Musculoskeletal Musculoskeletal: absent: Numbness, Tingling Additional comments: Right groin pain S/P emergent repair of ruptured right femoral artery pseudo-aneurysm with proximal ligatation and removal of femoral artery stent and patch - Neurological Neurological: Weakness. absent: Dizziness, Headaches, Syncope - Endocrine Endocrine: absent: Fatigue, Palpitations Past Patient History - Infectious Disease Hx of Infectious Diseases: None - Tetanus Immunizations Tetanus Immunization: Unknown - Past Medical History & Family History Past Medical History?: Yes - Past Social History Smoking Status: Heavy Smoker > 10 Cigarettes Daily - CARDIAC Hx Hypertension: Yes - PULMONARY Hx Respiratory Disorders: No - NEUROLOGICAL Hx Vertigo: Yes - HEENT Other/Comment: glasses for reading - RENAL Hx Chronic Kidney Disease: No - ENDOCRINE/METABOLIC Hx Endocrine Disorders: Yes Hx Diabetes Mellitus Type 1: Yes - HEMATOLOGICAL/ONCOLOGICAL Hx Anemia: Yes - INTEGUMENTARY Hx Dermatological Problems: No - MUSCULOSKELETAL/RHEUMATOLOGICAL Hx Arthritis: Yes Hx Fractures: Yes (rt wrist) - GASTROINTESTINAL Hx Crohn's Disease: No Hx Diverticulitis: No Hx Gall Bladder Disease: Yes Hx Gastritis: No Hx Pancreatitis: Yes - GENITOURINARY/GYNECOLOGICAL Hx Prostate Problems: Yes (BPH) - PSYCHIATRIC Hx Depression: Yes Hx Substance Use: Yes - SURGICAL HISTORY Hx Carotid Endarterectomy: Yes (L CEA) - ANESTHESIA Hx Anesthesia: Yes Hx Anesthesia Reactions: No Hx Malignant Hyperthermia: No Meds - Medications Medications: Current Medications Amlodipine Besylate (Norvasc) 10 mg PO DAILY [facility] Docusate Sodium (Colace) 100 mg PO TID [facility] Duloxetine HCl (Cymbalta) 40 mg PO HS [facility] Famotidine (Pepcid) 20 mg IVP Q12 [facility] Ferrous Sulfate (Feosol) 325 mg PO BID [facility] Last Admin: 11/27/16 10:36 Dose: 325 mg Finasteride (Proscar) 5 mg PO DAILY [facility] Last Admin: 11/27/16 10:36 Dose: 5 mg Fluticasone Propionate (Flonase) 2 spr EMMA DAILY [facility] Home Med (Lipase/Protease/Amylase [Creon Dr 24,000 Units Capsule]) 2 tab PO TID [facility] Hydromorphone HCl (Dilaudid) 1 mg IVP Q3H PRN PRN Reason: Pain, severe (8-10) Last Admin: 11/27/16 08:32 Dose: 1 mg Hydromorphone HCl (Dilaudid) 0.5 mg IVP Q3H PRN PRN Reason: Pain, moderate (4-7) Sodium Chloride (Sodium Chloride 0.9%) 1,000 mls @ 125 mls/hr IV .Q8H [facility] Last Admin: 11/27/16 02:51 Dose: 125 mls/hr Vancomycin HCl 1,000 mg/ (Sodium Chloride) 250 mls @ 166.6 mls/hr IVPB Q12H [facility] Last Admin: 11/27/16 02:55 Dose: Not Given Insulin Human Regular (Novolin R) 0 unit SC ACHS [facility] PRN Reason: Protocol Last Admin: 11/27/16 08:06 Dose: 4 unit Metoprolol Tartrate (Lopressor) 25 mg PO BID@0900,2100 [facility] Last Admin: 11/27/16 10:36 Dose: 25 mg Mirtazapine (Remeron) 30 mg PO HS [facility] Ondansetron HCl (Zofran Inj) 4 mg IVP Q6H PRN PRN Reason: Nausea/Vomiting Rosuvastatin Calcium (Crestor) 10 mg PO QPM [facility] Tamsulosin HCl (Flomax) 0.4 mg PO DAILY [facility] Last Admin: 11/27/16 10:36 Dose: 0.4 mg Physical Exam - Head Exam Head Exam: ATRAUMATIC, NORMAL INSPECTION - Eye Exam Eye Exam: EOMI - Respiratory Exam Respiratory Exam: Clear to Auscultation Bilateral, NORMAL BREATHING PATTERN - Cardiovascular Exam Cardiovascular Exam: REGULAR RHYTHM, +S1, +S2 - GI/Abdominal Exam GI & Abdominal Exam: Normal Bowel Sounds, Soft - Extremities Exam Extremities exam: Positive for: tenderness. Negative for: pedal edema Additional comments: S/P emergent repair of ruptured right femoral artery pseudo-aneurysm with proximal ligatation and removal of femoral artery stent and patch Right lower leg is cold to touch and appears pale. Right LE is quitely audible with doppler - Neurological Exam Neurological exam: Alert, Oriented x3 - Psychiatric Exam Psychiatric exam: Normal Affect, Normal Mood - Skin Skin Exam: Normal Color, Warm Results - Vital Signs Recent Vital Signs: Last Vital Signs Temp 97.6 F 11/27/16 04:00 Pulse 93 H 11/27/16 07:00 Resp 14 11/27/16 07:00 BP 126/57 L 11/27/16 10:36 Pulse Ox 99 11/27/16 07:00 - Labs Result Diagrams: 11/27/16 11:26 11/27/16 06:28 Labs: Laboratory Results - last 24 hr 11/26/16 11/26/16 11/26/16 11:08 11:08 11:08 WBC 14.5 H D RBC 3.81 L Hgb 10.9 L Hct 32.6 L MCV 85.6 MCH 28.5 MCHC 33.4 RDW 17.1 H Plt Count 205 MPV 8.2 Neut % (Auto) 87.3 H Lymph % (Auto) 4.9 L Rabun % (Auto) 6.9 Eos % (Auto) 0.7 Baso % (Auto) 0.2 Neut # 12.6 H Lymph # 0.7 L Rabun # 1.0 H Eos # 0.1 Baso # 0.0 Neutrophils % (Manual) 86 H Band Neutrophils % 2 Lymphocytes % (Manual) 6 L Monocytes % (Manual) 4 Eosinophils % (Manual) 2 Platelet Estimate Normal Hypochromasia (manual) Poikilocytosis (manual Slight Anisocytosis (manual) Slight Ovalocytes [place] Cells Acanthocytes (Spur) Slight PT 12.7 H INR 1.1 APTT 30 Sodium 130 L Potassium 4.9 Chloride 96 L Carbon Dioxide 20 L Anion Gap 19 BUN 39 H Creatinine 1.5 Est GFR ( Amer) 56 Est GFR (Non-Af Amer) 47 POC Glucose (mg/dL) Random Glucose 187 H Lactic Acid Calcium 8.2 L Phosphorus Magnesium Total Bilirubin 0.6 AST 23 ALT 26 Alkaline Phosphatase 158 H D Total Protein 7.0 Albumin 3.4 L Globulin 3.7 Albumin/Globulin Ratio 0.9 L Blood Type Antibody Screen 11/26/16 11/27/16 11/27/16 11:08 06:28 06:28 WBC RBC Hgb Hct MCV MCH MCHC RDW Plt Count MPV Neut % (Auto) Lymph % (Auto) Rab[place] % (Auto) Eos % (Auto) Baso % (Auto) Neut # Lymph # [place] # Eos # Baso # Neutrophils % (Manual) Band Neutrophils % Lymphocytes % (Manual) Monocytes % (Manual) Eosinophils % (Manual) Platelet Estimate Hypochromasia (manual) Poikilocytosis (manual Anisocytosis (manual) Ovalocytes [place] Cells Acanthocytes (Spur) PT 13.1 H INR 1.2 APTT 29 Sodium 129 L Potassium 4.9 Chloride 100 Carbon Dioxide 12 L Anion Gap 22 H BUN 34 H Creatinine 1.4 Est GFR ( Amer) > 60 Est GFR (Non-Af Amer) 50 POC Glucose (mg/dL) Random Glucose 236 H Lactic Acid Calcium 8.1 L Phosphorus 2.8 Magnesium 1.6 Total Bilirubin 0.5 AST 18 ALT 29 Alkaline Phosphatase 128 H Total Protein 6.3 Albumin 2.8 L Globulin 3.5 Albumin/Globulin Ratio 0.8 L Blood Type O POSITIVE Antibody Screen Negative 10/07/0911/27/16 11/27/16 06:28 06:33 07:40 WBC 12.2 H RBC 3.02 L Hgb 8.6 L D Hct 25.8 L MCV 85.5 MCH 28.7 MCHC 33.5 RDW 16.8 H Plt Count 185 MPV 8.2 Neut % (Auto) 86.1 H Lymph % (Auto) 5.8 L Rabun % (Auto) 7.7 Eos % (Auto) 0.2 Baso % (Auto) 0.2 Neut # 10.5 H Lymph # 0.7 L Rabun # 0.9 H Eos # 0.0 Baso # 0.0 Neutrophils % (Manual) 83 H Band Neutrophils % 5 H Lymphocytes % (Manual) 5 L Monocytes % (Manual) 6 Eosinophils % (Manual) 1 Platelet Estimate Normal Hypochromasia (manual) Slight Poikilocytosis (manual Slight Anisocytosis (manual) Slight Ovalocytes Slight [place] Cells Slight Acanthocytes (Spur) PT INR APTT Sodium Potassium Chloride Carbon Dioxide Anion Gap BUN Creatinine Est GFR ( Amer) Est GFR (Non-Af Amer) POC Glucose (mg/dL) 300 H Random Glucose Lactic Acid 1.1 Calcium Phosphorus Magnesium Total Bilirubin AST ALT Alkaline Phosphatase Total Protein Albumin Globulin Albumin/Globulin Ratio Blood Type Antibody Screen Assessment & Plan - Assessment and Plan (Free Text) Assessment: Patient is a 70 year old male with past medical history of peripheral artery disease, carotid stenosis s/p carotid endarterectomy, ruptured right femoral pseudoaneurysm, dilated common bile duct, DM, HTN, bacteremia, depression; S/P emergent repair of ruptured right femoral artery pseudo-aneurysm with proximal ligatation and removal of femoral artery stent and patch, POD #0 Plan: Neuro: Alert, awake and oriented Vascular: S/P emergent repair of ruptured right femoral artery pseudo-aneurysm with proximal ligatation and removal of femoral artery stent and patch, POD #0 Medication/Management * Crestor 10mg PO HS * Dilaudid 1mg and 0.5mg IVP Q3H prn for pain control Cardio: Hx of HTN Medication/Management: * Norvasc 10mg PO daily * Lopressor 25mg PO BID GI: History of constipation Medication:Colace 100 mg PO TID Endo: Hx of DM * Accuchecks * ISS- low dose protocol : Hx of BPH Medications/Management: * Flomax 0.4mg PO daily * Proscar 5mg PO daily Heme: History of anemia * H/H trended down postoperatively: transfused 1 unit once Medication:Ferrous Sulfate 325mg PO 2x/day ID: Hx of bactremia * Awaiting cultures Medications: * Vancomycin 1,000mg IVPN Q12H * Cefepime 1gm IVPB q12h Psych: Hx of depression Medication: Duloxetine 40mg PO HS Mirtazapine 30mg PO HS Prophylaxis: DVT: SCDs and Anticoagulation contraindicated at this time due to recent surgical procedure GI: Pepcid 20mg IVP Q12H, Zofran 4mg IVP Q6H prn
[2016-11-27 11:30] LABS: BASO % 0.2 % (0.0-2.0); EOS % 0.4 % (0.0-4.0); HEMATOCRIT 24.1 % (35.0-51.0); LYMPH # 0.7 K/uL (1.0-4.3); LYMPH % 6.8 % (20.0-40.0); MEAN CELL VOLUME 84.8 fL (80.0-94.0); MEAN CORPUSCULAR HGB CONC 34.2 g/dL (33.0-37.0); MEAN PLATELET VOLUME 7.7 fL (7.2-11.7); MONO # 0.7 K/uL (0.0-0.8); MONO % 6.4 % (0.0-10.0); PLATELET COUNT 170 K/uL (130-400); WHITE BLOOD COUNT 10.4 K/uL (4.8-10.8)
[2016-11-27 11:59] LABS: NEUTROPHIL 93 % (50-75); TOTAL CELLS COUNTED 100
[2016-11-27] MEDS: Fluticasone Nasal 50 mcg/Spray NAS SCH (14:34)
--- NOTE | 2016-11-27 19:14 | CP.PCM.CON ---
History of Present Illness - History of Present Illness History of Present Illness: 70 yo M , presented to the ED for right groin pulsatile bleeding that started acutely last night at 10pm He was taken to the OR and is now s/p emergent repair of ruptured right femoral artery pseudo-aneurysm with proximal ligatation and removal of femoral artery stent and patch. On 10/18/16 the patient had a ruptured right common femoral artery pseudoaneurysm and was taken to the OR with repair and stent placement. PMHx: peripheral artery disease, carotid stenosis s/p carotid endarterectomy, ruptured right femoral pseudoaneurysm, dilated common bile duct, DM, HTN, bacteremia, depression PSHx: left carotid endarterectomy 08/2016, right femoral endarterectomy w/ Bovine patch closure 08/2016, repair of ruptured right femoral artery pseudoaneurysm w/ stent placement 09/2016 Allergies: NKA FamHx: denies SocialHx: smokes 3 ppd since 1965; heavy drinker in past, stopped drinking when diagnosed with pancreatitis ~10 yrs ago; drug use in 20s-30s including Marijuana , cocaine, barbituates, amphetamines; Review of Systems - Constitutional Constitutional: As Per HPI - EENT Eyes: absent: As Per HPI, Blind Spots, Blurred Vision, Change in Vision, Decreased Night Vision, Diplopia, Discharge, Dry Eye, Exophthalmos, Floaters, Irritation, Itchy Eyes, Loss of Peripheral Vision, Pain, Photophobia, Requires Corrective Lenses, Sees Flashes, Spots in Vision, Tunnel Vision, Other Visual Disturbances, Loss of Vision, Other Ears: absent: As Per HPI, Decreased Hearing, Ear Discharge, Ear Pain, Tinnitus, Abnormal Hearing, Disequilibrium, Dizziness, Other Nose/Mouth/Throat: absent: As Per HPI, Epistaxis, Nasal Congestion, Nasal Discharge, Nasal Obstruction, Nasal Trauma, Nose Pain, Post Nasal Drip, Sinus Pain, Sinus Pressure, Bleeding Gums, Change in Voice, Dental Pain, Dry Mouth, Dysphagia, Halitosis, Hoarsness, Lip Swelling, Mouth Lesions, Mouth Pain, Odynophagia, Sore Throat, Throat Swelling, Tongue Swelling, Facial Pain, Neck Pain, Neck Mass, Other - Cardiovascular Cardiovascular: As Per HPI - Respiratory Respiratory: absent: As Per HPI, Cough, Dyspnea, Hemoptysis, Dyspnea on Exertion , Wheezing, Snoring, Stridor, Pain on Inspiration, Chest Congestion, Excessive Mucous Production, Change in Mucous Color, Pain with Coughing, Other - Gastrointestinal Gastrointestinal: absent: As Per HPI, Abdominal Pain, Belching, Bloating, Change in Bowel Habits, Change in Stool Character, Coffee Ground Emesis, Constipation, Cramping, Diarrhea, Dyspepsia, Dysphagia, Early Satiety, Excessive Flatus, Fecal Incontinence, Heartburn, Hematemesis, Hematochezia, Loose Stools, Melena, Nausea, Odynophagia, Temesmus, Vomiting, Other - Genitourinary Genitourinary: absent: As Per HPI, Change in Urinary Stream, Difficulty Urinating, Dysuria, Flank Pain, Hematuria, Pyuria, Nocturia, Urinary Incontinence, Urinary Frequency, Urinary Hesitance, Urinary Urgency, Voiding Freq/Small Amts, Freq UTI, Hx Renal/Bladder Calculi, Hx /Renal Surgery, Bladder Distension, Other - Musculoskeletal Musculoskeletal: As Per HPI - Integumentary Integumentary: As Per HPI - Neurological Neurological: absent: As Per HPI, Abnormal Gait, Abnormal Hearing, Abnormal Movements, Abnormal Speech, Behavioral Changes, Burning Sensations, Confusion, Convulsions, Disequilibrium, Dizziness, Numbness, Focal Weakness, Frequent Falls , Headaches, Lack of Coordination, Loss of Vision, Memory Loss, Paresthesias, Radicular Pain, Restless Legs, Sensory Deficit, Syncope, Tingling, Tremor, Vertigo, Weakness, Other Visual Disturbances, Other - Psychiatric Psychiatric: absent: As Per HPI, Abnormal Sleep Pattern, Anhedonia, Anxiety, Auditory Hallucinations, Behavioral Changes, Change in Appetite, Change in Libido, Confusion, Depression, Difficulty Concentrating, Hallucinations, Homicidal Ideation, Hopelessness, Irritability, Memory Loss, Mood Swings, Panic Attacks, Paranoia, Suicidal Ideation, Visual Hallucinations, Tactile Hallucinations, Other - Endocrine Endocrine: absent: As Per HPI, Change in Body Appearance, Change in Libido, Cold Intolorance, Deepening of Voice, Excessive Sweating, Fatigue, Flushing, Heat Intolorance, Increase in Ring/Shoe/Hat Size, Palpitations, Polydipsia, Polyphagia, Polyuria, Other - Hematologic/Lymphatic Hematologic: absent: As Per HPI, Easy Bleeding, Easy Bruising, Lymphadenopathy, Other Past Patient History - Infectious Disease Hx of Infectious Diseases: None - Tetanus Immunizations Tetanus Immunization: Unknown - Past Medical History & Family History Past Medical History?: Yes - Past Social History Smoking Status: Heavy Smoker > 10 Cigarettes Daily - CARDIAC Hx Hypertension: Yes - PULMONARY Hx Respiratory Disorders: No - NEUROLOGICAL Hx Vertigo: Yes - HEENT Other/Comment: glasses for reading - RENAL Hx Chronic Kidney Disease: No - ENDOCRINE/METABOLIC Hx Endocrine Disorders: Yes Hx Diabetes Mellitus Type 1: Yes - HEMATOLOGICAL/ONCOLOGICAL Hx Anemia: Yes - INTEGUMENTARY Hx Dermatological Problems: No - MUSCULOSKELETAL/RHEUMATOLOGICAL Hx Arthritis: Yes Hx Fractures: Yes (rt wrist) - GASTROINTESTINAL Hx Crohn's Disease: No Hx Diverticulitis: No Hx Gall Bladder Disease: Yes Hx Gastritis: No Hx Pancreatitis: Yes - GENITOURINARY/GYNECOLOGICAL Hx Prostate Problems: Yes (BPH) - PSYCHIATRIC Hx Depression: Yes Hx Substance Use: Yes - SURGICAL HISTORY Hx Carotid Endarterectomy: Yes (L CEA) - ANESTHESIA Hx Anesthesia: Yes Hx Anesthesia Reactions: No Hx Malignant Hyperthermia: No Meds Allergies/Adverse Reactions: Allergies Allergy/AdvReac Type Severity Reaction Status Date / Time No Known Allergies Allergy Verified 10/23/16 14:42 - Medications Medications: Current Medications Amlodipine Besylate (Norvasc) 10 mg PO DAILY [facility] Last Admin: 11/27/16 12:20 Dose: 10 mg Docusate Sodium (Colace) 100 mg PO TID [facility] Last Admin: 11/27/16 17:48 Dose: 100 mg Duloxetine HCl (Cymbalta) 40 mg PO [facility] Famotidine (Pepcid) 20 mg IVP Q12 [facility] Last Admin: 11/27/16 12:20 Dose: 20 mg Ferrous Sulfate (Feosol) 325 mg PO BID [facility] Last Admin: 11/27/16 17:52 Dose: 325 mg Finasteride (Proscar) 5 mg PO DAILY [facility] Last Admin: 11/27/16 10:36 Dose: 5 mg Fluticasone Propionate (Flonase) 2 spr EMMA DAILY [facility] Last Admin: 11/27/16 14:34 Dose: 2 spr Home Med (Lipase/Protease/Amylase [Creon Dr 24,000 Units Capsule]) 2 tab PO TID [facility] Hydromorphone HCl (Dilaudid) 1 mg IVP Q3H PRN PRN Reason: Pain, severe (8-10) Last Admin: 11/27/16 17:53 Dose: 1 mg Hydromorphone HCl (Dilaudid) 0.5 mg IVP Q3H PRN PRN Reason: Pain, moderate (4-7) Vancomycin HCl 1,000 mg/ (Sodium Chloride) 250 mls @ 166.6 mls/hr IVPB Q12H [facility] Last Admin: 11/27/16 12:53 Dose: 166.6 mls/hr Insulin Human Regular (Novolin R) 0 unit SC ACHS LADONNA PRN Reason: Protocol Last Admin: 11/27/16 17:48 Dose: 3 unit Metoprolol Tartrate (Lopressor) 25 mg PO BID@0900,2100 [facility] Last Admin: 11/27/16 10:36 Dose: 25 mg Mirtazapine (Remeron) 30 mg PO HS [facility] Ondansetron HCl (Zofran Inj) 4 mg IVP Q6H PRN PRN Reason: Nausea/Vomiting Rosuvastatin Calcium (Crestor) 10 mg PO QPM [facility] Last Admin: 11/27/16 17:48 Dose: 10 mg Tamsulosin HCl (Flomax) 0.4 mg PO DAILY [facility] Last Admin: 11/27/16 10:36 Dose: 0.4 mg Physical Exam - Constitutional Appears: Non-toxic, Chronically Ill - Head Exam Head Exam: NORMOCEPHALIC - Eye Exam Eye Exam: PERRL. absent: Scleral icterus - ENT Exam ENT Exam: Mucous Membranes Dry, Normal External Ear Exam - Neck Exam Neck exam: Negative for: Lymphadenopathy - Respiratory Exam Respiratory Exam: Decreased Breath Sounds, Rhonchi - Cardiovascular Exam Cardiovascular Exam: REGULAR RHYTHM, +S1, +S2 - GI/Abdominal Exam GI & Abdominal Exam: Diminished Bowel Sounds, Soft. absent: Tenderness - Rectal Exam Rectal Exam: Deferred - Exam Exam: NORMAL INSPECTION - Extremities Exam Extremities exam: Negative for: calf tenderness, pedal edema, tenderness, pedal pulses present - Back Exam Back exam: absent: CVA tenderness (L), CVA tenderness (R), paraspinal tenderness - Neurological Exam Neurological exam: Alert, Altered, CN II-XII Intact, Reflexes Normal - Psychiatric Exam Psychiatric exam: Depressed - Skin Skin Exam: Dry Results - Vital Signs Recent Vital Signs: Last Vital Signs Temp 98.1 F 11/27/16 18:00 Pulse 82 11/27/16 18:02 Resp 19 11/27/16 18:02 BP 141/66 11/27/16 18:02 Pulse Ox 92 L 11/27/16 18:02 - Labs Result Diagrams: 11/27/16 11:26 11/27/16 06:28 Labs: Laboratory Results - last 24 hr 11/26/16 11/26/16 11/26/16 11:08 11:08 11:08 WBC 14.5 H D RBC 3.81 L Hgb 10.9 L Hct 32.6 L MCV 85.6 MCH 28.5 MCHC 33.4 RDW 17.1 H Plt Count 205 MPV 8.2 Neut % (Auto) 87.3 H Lymph % (Auto) 4.9 L [place] % (Auto) 6.9 Eos % (Auto) 0.7 Baso % (Auto) 0.2 Neut # 12.6 H Lymph # 0.7 L [place] # 1.0 H Eos # 0.1 Baso # 0.0 Neutrophils % (Manual) 86 H Band Neutrophils % 2 Lymphocytes % (Manual) 6 L Monocytes % (Manual) 4 Eosinophils % (Manual) 2 Platelet Estimate Normal Hypochromasia (manual) Poikilocytosis (manual Slight Anisocytosis (manual) Slight Ovalocytes [place] Cells Acanthocytes (Spur) Slight PT 12.7 H INR 1.1 APTT 30 Sodium 130 L Potassium 4.9 Chloride 96 L Carbon Dioxide 20 L Anion Gap 19 BUN 39 H Creatinine 1.5 Est GFR ( Amer) 56 Est GFR (Non-Af Amer) 47 POC Glucose (mg/dL) Random Glucose 187 H Lactic Acid Calcium 8.2 L Phosphorus Magnesium Total Bilirubin 0.6 AST 23 ALT 26 Alkaline Phosphatase 158 H D Total Protein 7.0 Albumin 3.4 L Globulin 3.7 Albumin/Globulin Ratio 0.9 L Blood Type Antibody Screen 11/26/16 11/27/16 11/27/16 11:08 06:28 06:28 WBC RBC Hgb Hct MCV MCH MCHC RDW Plt Count MPV Neut % (Auto) Lymph % (Auto) [place] % (Auto) Eos % (Auto) Baso % (Auto) Neut # Lymph # [place] # Eos # Baso # Neutrophils % (Manual) Band Neutrophils % Lymphocytes % (Manual) Monocytes % (Manual) Eosinophils % (Manual) Platelet Estimate Hypochromasia (manual) Poikilocytosis (manual Anisocytosis (manual) Ovalocytes [place] Cells Acanthocytes (Spur) PT 13.1 H INR 1.2 APTT 29 Sodium 129 L Potassium 4.9 Chloride 100 Carbon Dioxide 12 L Anion Gap 22 H BUN 34 H Creatinine 1.4 Est GFR ( Amer) > 60 Est GFR (Non-Af Amer) 50 POC Glucose (mg/dL) Random Glucose 236 H Lactic Acid Calcium 8.1 L Phosphorus 2.8 Magnesium 1.6 Total Bilirubin 0.5 AST 18 ALT 29 Alkaline Phosphatase 128 H Total Protein 6.3 Albumin 2.8 L Globulin 3.5 Albumin/Globulin Ratio 0.8 L Blood Type O POSITIVE Antibody Screen Negative 11/27/16 11/27/16 11/27/16 06:28 06:33 07:40 WBC 12.2 H RBC 3.02 L Hgb 8.6 L D Hct 25.8 L MCV 85.5 MCH 28.7 MCHC 33.5 RDW 16.8 H Plt Count 185 MPV 8.2 Neut % (Auto) 86.1 H Lymph % (Auto) 5.8 L [place] % (Auto) 7.7 Eos % (Auto) 0.2 Baso % (Auto) 0.2 Neut # 10.5 H Lymph # 0.7 L [place] # 0.9 H Eos # 0.0 Baso # 0.0 Neutrophils % (Manual) 83 H Band Neutrophils % 5 H Lymphocytes % (Manual) 5 L Monocytes % (Manual) 6 Eosinophils % (Manual) 1 Platelet Estimate Normal Hypochromasia (manual) Slight Poikilocytosis (manual Slight Anisocytosis (manual) Slight Ovalocytes Slight [place] Cells Slight Acanthocytes (Spur) PT INR APTT Sodium Potassium Chloride Carbon Dioxide Anion Gap BUN Creatinine Est GFR ( Amer) Est GFR (Non-Af Amer) POC Glucose (mg/dL) 300 H Random Glucose Lactic Acid 1.1 Calcium Phosphorus Magnesium Total Bilirubin AST ALT Alkaline Phosphatase Total Protein Albumin Globulin Albumin/Globulin Ratio Blood Type Antibody Screen 11/27/16 11/27/16 11/27/16 11:26 11:39 16:18 WBC 10.4 RBC 2.83 L Hgb 8.2 L Hct 24.1 L MCV 84.8 MCH 29.0 MCHC 34.2 RDW 17.0 H Plt Count 170 MPV 7.7 Neut % (Auto) 86.2 H Lymph % (Auto) 6.8 L [place] % (Auto) 6.4 Eos % (Auto) 0.4 Baso % (Auto) 0.2 Neut # 9.0 H Lymph # 0.7 L [place] # 0.7 Eos # 0.0 Baso # 0.0 Neutrophils % (Manual) 93 H Band Neutrophils % Lymphocytes % (Manual) 6 L Monocytes % (Manual) 1 Eosinophils % (Manual) Platelet Estimate Normal Hypochromasia (manual) Slight Poikilocytosis (manual Anisocytosis (manual) Slight Ovalocytes Slight [place] Cells Acanthocytes (Spur) PT INR APTT Sodium Potassium Chloride Carbon Dioxide Anion Gap BUN Creatinine Est GFR ( Amer) Est GFR (Non-Af Amer) POC Glucose (mg/dL) 251 H 298 H Random Glucose Lactic Acid Calcium Phosphorus Magnesium Total Bilirubin AST ALT Alkaline Phosphatase Total Protein Albumin Globulin Albumin/Globulin Ratio Blood Type Antibody Screen Assessment & Plan (1) Femoral artery aneurysm, right Status: Acute (2) H/O ruptured arterial aneurysm Status: Acute (3) S/P aneurysm repair Status: Acute - Assessment and Plan (Free Text) Assessment: s/p repair right pseudoaneurysm r/o sepsis hx e coli bacteremia in the past await cultures cont iv antbiotics
[2016-11-27] MEDS: Cefepime IV 1 gm in Dextrose 1 GM/50 ML BAG IVPB SCH (21:47)
[2016-11-27 22:18] LABS: HEMATOCRIT 25.7 % (35.0-51.0); MEAN CELL VOLUME 84.9 fL (80.0-94.0); MEAN CORPUSCULAR HEMOGLOBIN 29.1 pg (27.0-31.0); MEAN CORPUSCULAR HGB CONC 34.3 g/dL (33.0-37.0); MEAN PLATELET VOLUME 7.5 fL (7.2-11.7); RED CELL DISTRIBUTION WIDTH 16.5 % (11.5-14.5); WHITE BLOOD COUNT 7.3 K/uL (4.8-10.8)
[2016-11-28 06:23] LABS: BASO % 0.4 % (0.0-2.0); EOS # 0.1 K/uL (0.0-0.7); EOS % 1.8 % (0.0-4.0); HEMATOCRIT 27.2 % (35.0-51.0); LYMPH # 0.4 K/uL (1.0-4.3); LYMPH % 5.3 % (20.0-40.0); MEAN CORPUSCULAR HEMOGLOBIN 29.3 pg (27.0-31.0); MEAN CORPUSCULAR HGB CONC 34.1 g/dL (33.0-37.0); MEAN PLATELET VOLUME 7.9 fL (7.2-11.7); MONO # 0.5 K/uL (0.0-0.8); MONO % 6.9 % (0.0-10.0); PLATELET COUNT 154 K/uL (130-400); RED CELL DISTRIBUTION WIDTH 16.8 % (11.5-14.5); WHITE BLOOD COUNT 7.9 K/uL (4.8-10.8)
[2016-11-28 06:43] LABS: CHLORIDE 101 mmol/L (98-107); SODIUM 133 mmol/L (132-148)
[2016-11-28 06:44] LABS: POTASSIUM 4.4 mmol/L (3.6-5.2)
[2016-11-28 06:45] LABS: GFR AFRICAN-AMERICAN > 60
[2016-11-28 06:46] LABS: ALB/GLOB RATIO 0.8 (1.0-2.1); ALKALINE PHOSPHATASE 110 U/L (38-126); ALT/SGPT 27 U/L (21-72); AST/SGOT 17 U/L (17-59); BILIRUBIN,TOTAL 0.5 mg/dL (0.2-1.3); BLOOD UREA NITROGEN 19 mg/dL (9-20); CARBON DIOXIDE 19 mmol/L (22-30); GLUCOSE,RANDOM 219 mg/dL (75-110); TOTAL PROTEIN 6.7 g/dL (6.3-8.3)
[2016-11-28 06:47] LABS: CALCIUM 8.6 mg/dl (8.6-10.4); MAGNESIUM 1.7 mg/dL (1.6-2.3)
[2016-11-28] MEDS: (Novolin R) Insulin Human Regular 100 units/ml vial SC SCH ×3 (07:45→16:41)
[2016-11-28] MEDS: Cefepime IV 1 gm in Dextrose 1 GM/50 ML BAG IVPB SCH ×2 (07:45→20:00)
[2016-11-28 08:28] LABS: NEUTROPHIL 86 % (50-75); TOTAL CELLS COUNTED 100
--- NOTE | 2016-11-28 09:34 | CP.PCM.PN ---
Subjective - Date & Time of Evaluation Date of Evaluation: 11/28/16 Time of Evaluation: 09:15 - Subjective Subjective: Hospitalist Consult Progress Note Patient was seen and examined at 9:15 AM 11/28/16 ICU Bed #15 Very pleasant 70 year old male (with an extensive medical history: please see Assessment and Plan below) who is S/P repair of ruptured right femoral artery pseudoaneurysm with proximal ligation and removal of femoral artery stent and patch 11/27/16. Currently upon FULL ROS: Right Lower leg feels numb and "heavy like it's not there" NO chest pain NO palpitations SOB is always present (states he continues to smoke 3 packs of cigarettes per day) NO abdominal pain NO bowel movement since Thursday11/23/16 (states that 1 bowel movement every 3 to 4 days is normal for him) NO burning/pain with urination NO headache NO new changes in vision NO new changes in hearing Episode of lightheadedness and dizziness while laying bed in the evening that last for about 15 minutes but has since resolved Physical Exam: - Constitutional Appears: Non-toxic, No Acute Distress - Head Exam Head Exam: NORMAL INSPECTION - Eye Exam Eye Exam: EOMI. PERRLA absent: Nystagmus, Scleral icterus, - ENT Exam ENT Exam: Mucous Membranes Moist, NO lymphadenopathy, NO thyromegaly, Mucous membranes are moist, NO pharyngeal erythema/exudate - Respiratory Exam Respiratory Exam: CTA B/L NO R/R/W - Cardiovascular Exam Cardiovascular Exam: HOLOSYTOLIC MURMUR. absent: JVD - GI/Abdominal Exam GI & Abdominal Exam: Soft, Normal Bowel Sounds, NO HSM, NO guarding, NO rebound tenderness. Midabdominal Bruit - Extremities Exam Extremities Exam: NO edema. Right Lower leg to foot are cool to the touch and dusky/pale appearance. Right LE pulses could not be palpated but confirmed with doppler by Nurse Deepak. Capillary refill of the Right LE is 4 to 5 seconds. Left LE is warm to the touch, normal color, capillary refill is 3 seconds - Neurological Exam Neurological Exam: Alert, Awake, Oriented x3. When asking patient questions he has a hard time recollecting information and states that this is normal for him - Psychiatric Exam Psychiatric exam: Normal Affect, Normal Mood - Skin Skin Exam: Dry, Intact, Normal Color, Warm Assessment & Plan (1) S/P aneurysm repair Assessment and Plan: S/P emergent repair of ruptured right femoral artery pseudo-aneurysm with proximal ligatation and removal of femoral artery stent and patch; ruptured pseudo-aneurysm (possibly infected) Vascular Surgeon, Dr Lorenzo is the Primary on the case Infectious Disease, Dr Herrera Right Groin Wound Culture 11/27/16 shows Gram Negative Rods and Gram Positive Cocci: F/U Sensitivities F/U Blood Culture 11/27/16 Pain control with Hydromorphone Vancomycin 1 gm IV Q12h (11/27/16) Cefepime 1 gm IV Q12H (11/27/16) Status: Acute (2) Elevated alkaline phosphatase level Assessment and Plan: Alk phos has normalized Per chart review, patient with Hx Dilated CBD On prior admission patient was advised to follow up with outpatient elective cholecystectomy Status: Acute (3) STEVEN (acute kidney injury) Assessment and Plan: Possibly secondary to hypotension, hypotension responded well to NS bolus This has resolved Status: Acute (4) Hyponatremia This has resolved Monitor (5) Acidosis likely Metabolic Could be secondary to recent surgery vs possible infected right femoral artery catheter which was removed vs compounded by the use of Glipizide for DM 2 Patient is on Vancomycin and Cefepime Glipizide has been discontinued This has resolved (6). Abdominal Bruit Abdominal Aorta U/S ordered on 11/27/16 was discontinued as patient had Abdominal Angiography performed on 10/21/16 and this did NOT show Abdominal Aneurysm. Please see full report for finding of Right Femoral Artery Pseudoaneurysm. (7) History of Diabetes Mellitus 2 Assessment and Plan: RISS - low dose Holding Glipizide because of the acidosis upon admission Continue home Insulin Regimen: Levemir 36 Units SC HS, Regular Insulin (Lispro not carried by our pharmacy) 10 Units SC ACB and 6 Units SC ACLD Continue Accuchecks ACHS Rosuvastatin 10mg PO HS Status: Chronic (8) History Hypertension Assessment and Plan: BP elevations noted Amlodipine 10mg PO 1x/day Metoprolol tartrate 25mg PO 2x/day was increased to 50 mg PO 2x/day with holding parameters 11/28/16 Status: Chronic (9) History of anemia Assessment and Plan: HgB/Hct are stable Ferrous Sulfate 325mg PO 2x/day Status: Chronic (10) History Chronic pancreatitis Assessment and Plan: Creon 06242l PO TID AC Meals not carried by our pharmacy therefore equilavent dose of Pacreaze Status: Chronic (11) History of depression Assessment and Plan: Duloxetine 40mg PO HS Mirtazapine 30mg PO HS Status: Chronic (12) History of BPH Assessment and Plan: Finasteride 5mg PO 1x/day Flomax 0.4 mg PO 1x/day Status: Chronic (13). History of Constipation Colace 100 mg PO TID (14) Prophylactic measure Assessment and Plan: GI: pepcid 20mg ivp q12 DVT: Anticoagulation/SCDs not indicated at this time due to recent surgery of LE /PVD Diet: liquid, advance as tolerated to diabetic diet Kris Santana D.O. Objective - Vital Signs/Intake and Output Vital Signs (last 24 hours): Temp Pulse Resp BP Pulse Ox 98 F 84 24 144/77 99 11/28/16 04:00 11/28/16 08:03 11/28/16 08:03 11/28/16 08:03 11/28/16 08:03 Intake and Output: 11/28/16 11/28/16 06:59 18:59 Intake Total 540 250 Output Total 2050 275 Balance -1510 -25 - Medications Medications: Current Medications Amlodipine Besylate (Norvasc) 10 mg PO DAILY [facility] Last Admin: 11/27/16 12:20 Dose: 10 mg Docusate Sodium (Colace) 100 mg PO TID [facility] Last Admin: 11/27/16 17:48 Dose: 100 mg Duloxetine HCl (Cymbalta) 40 mg PO HS [facility] Last Admin: 11/27/16 21:16 Dose: 40 mg Famotidine (Pepcid) 20 mg IVP Q12 [facility] Last Admin: 11/27/16 21:15 Dose: 20 mg Ferrous Sulfate (Feosol) 325 mg PO BID [facility] Last Admin: 11/27/16 17:52 Dose: 325 mg Finasteride (Proscar) 5 mg PO DAILY [facility] Last Admin: 11/27/16 10:36 Dose: 5 mg Fluticasone Propionate (Flonase) 2 spr EMMA DAILY [facility] Last Admin: 11/27/16 14:34 Dose: 2 spr Hydromorphone HCl (Dilaudid) 1 mg IVP Q3H PRN PRN Reason: Pain, severe (8-10) Last Admin: 11/28/16 05:22 Dose: 1 mg Hydromorphone HCl (Dilaudid) 0.5 mg IVP Q3H PRN PRN Reason: Pain, moderate (4-7) Vancomycin HCl 1,000 mg/ (Sodium Chloride) 250 mls @ 166.6 mls/hr IVPB Q12H [facility] Last Admin: 11/28/16 01:27 Dose: 166.6 mls/hr Cefepime HCl (Maxipime Iv 1 Gm Premix) 1 gm in 50 mls @ 100 mls/hr IVPB Q12H [facility] Last Admin: 11/28/16 07:45 Dose: 100 mls/hr Insulin Detemir (Levemir) 36 unit SC HS [facility] Insulin Human Regular (Novolin R) 6 unit SC ACL [facility]ONNA Insulin Human Regular (Novolin R) 6 unit SC ACD [facility] Insulin Human Regular (Novolin R) 10 unit SC ACB [facility] Metoprolol Tartrate (Lopressor) 50 mg PO BID@0900,2100 [facility] Mirtazapine (Remeron) 30 mg PO HS [facility] Last Admin: 11/27/16 21:16 Dose: 30 mg Ondansetron HCl (Zofran Inj) 4 mg IVP Q6H PRN PRN Reason: Nausea/Vomiting Rosuvastatin Calcium (Crestor) 10 mg PO QPM [facility] Last Admin: 11/27/16 17:48 Dose: 10 mg Tamsulosin HCl (Flomax) 0.4 mg PO DAILY [facility] Last Admin: 11/27/16 10:36 Dose: 0.4 mg - Labs Labs: 11/28/16 06:17 11/28/16 06:17 PT 13.1 SECONDS (9.7-12.2) H 11/27/16 06:28 INR 1.2 11/27/16 06:28 APTT 29 SECONDS (21-34) 11/27/16 06:28
[2016-11-28] MEDS: Fluticasone Nasal 50 mcg/Spray NAS SCH (09:48)
[2016-11-28] MEDS: LIPASE/PROTEASE/AMYLASE 4,200 U ECC PO SCH ×3 (10:48→17:39)
--- NOTE | 2016-11-28 12:42 | CP.PCM.PN ---
Subjective - Date & Time of Evaluation Date of Evaluation: 11/28/16 Time of Evaluation: 07:00 - Subjective Subjective: VASCULAR SURGERY PROGRESS NOTE FOR DR. DENIS Patient seen and examined at bedside in the ICU. Patient states that his right foot hurts. He is able to move it some. He also has some pain in the right groin incision area. He has not been OOB yet. He is tolerating his CLD. Objective - Vital Signs/Intake and Output Vital Signs (last 24 hours): Temp Pulse Resp BP Pulse Ox 98 F 84 24 144/77 99 11/28/16 04:00 11/28/16 08:03 11/28/16 08:03 11/28/16 08:03 11/28/16 08:03 Intake and Output: 11/28/16 11/28/16 06:59 18:59 Intake Total 540 250 Output Total 2050 275 Balance -1510 -25 - Medications Medications: Current Medications Amlodipine Besylate (Norvasc) 10 mg PO DAILY [facility] Last Admin: 11/28/16 09:48 Dose: 10 mg Docusate Sodium (Colace) 100 mg PO TID [facility] Last Admin: 11/28/16 09:48 Dose: 100 mg Duloxetine HCl (Cymbalta) 40 mg PO HS [facility] Last Admin: 11/27/16 21:16 Dose: 40 mg Famotidine (Pepcid) 20 mg IVP Q12 [facility] Last Admin: 11/28/16 10:03 Dose: 20 mg Ferrous Sulfate (Feosol) 325 mg PO BID [facility] Last Admin: 11/28/16 09:48 Dose: 325 mg Finasteride (Proscar) 5 mg PO DAILY [facility] Last Admin: 11/28/16 09:48 Dose: 5 mg Fluticasone Propionate (Flonase) 2 spr EMMA DAILY [facility] Last Admin: 11/28/16 09:48 Dose: 2 spr Hydromorphone HCl (Dilaudid) 1 mg IVP Q3H PRN PRN Reason: Pain, severe (8-10) Last Admin: 11/28/16 09:54 Dose: 1 mg Hydromorphone HCl (Dilaudid) 0.5 mg IVP Q3H PRN PRN Reason: Pain, moderate (4-7) Vancomycin HCl 1,000 mg/ (Sodium Chloride) 250 mls @ 166.6 mls/hr IVPB Q12H [facility] Last Admin: 11/28/16 01:27 Dose: 166.6 mls/hr Cefepime HCl (Maxipime Iv 1 Gm Premix) 1 gm in 50 mls @ 100 mls/hr IVPB Q12H [facility] Last Admin: 11/28/16 07:45 Dose: 100 mls/hr Insulin Detemir (Levemir) 36 unit SC HS [facility] Insulin Human Regular (Novolin R) 6 unit SC ACL [facility] Insulin Human Regular (Novolin R) 6 unit SC ACD [facility] Insulin Human Regular (Novolin R) 10 unit SC ACB [facility] Metoprolol Tartrate (Lopressor) 50 mg PO BID [facility] Last Admin: 11/28/16 10:08 Dose: 50 mg Mirtazapine (Remeron) 30 mg PO HS [facility] Last Admin: 11/27/16 21:16 Dose: 30 mg Ondansetron HCl (Zofran Inj) 4 mg IVP Q6H PRN PRN Reason: Nausea/Vomiting Rosuvastatin Calcium (Crestor) 10 mg PO QPM [facility] Last Admin: 11/27/16 17:48 Dose: 10 mg Tamsulosin HCl (Flomax) 0.4 mg PO DAILY [facility] Last Admin: 11/28/16 09:48 Dose: 0.4 mg - Labs Labs: 11/28/16 06:17 11/28/16 06:17 PT 13.1 SECONDS (9.7-12.2) H 11/27/16 06:28 INR 1.2 11/27/16 06:28 APTT 29 SECONDS (21-34) 11/27/16 06:28 - Constitutional Appears: Non-toxic, No Acute Distress - Head Exam Head Exam: ATRAUMATIC, NORMAL INSPECTION - Eye Exam Eye Exam: EOMI - Respiratory Exam Respiratory Exam: NORMAL BREATHING PATTERN. absent: Respiratory Distress - Cardiovascular Exam Cardiovascular Exam: +S1, +S2 - GI/Abdominal Exam GI & Abdominal Exam: Soft. absent: Distended, Tenderness - Extremities Exam Additional comments: Right groin dressing with some sanguinous drainage - dressing changed Right foot cool to touch, + DP signal on Doppler Left foot warm to touch Assessment and Plan - Assessment and Plan (Free Text) Assessment: 70yo M with ruptured infected right femoral artery pseudo-aneurysm s/p emergent repair of ruptured right femoral artery pseudo-aneurysm with proximal ligatation and removal of femoral artery stent and patch POD#1 - Afebrile, VSS - Hemoglobin improved to 9.3 after 1 unit PRBC yesterday - Advance diet as tolerated - Right groin wound cx: gram - rods - Will order PT - Patient will need revascularization procedure of right lower extremity once infection is resolved - Discussed plan with Dr. Maura Mckeon PGY-3
--- NOTE | 2016-11-28 16:49 | CP.PCM.PN ---
Subjective - Date & Time of Evaluation Date of Evaluation: 11/28/16 Time of Evaluation: 07:00 - Subjective Subjective: wound c/s + for cocci and gram neg iv vanco/cefepime ordered awake alert poor historian apparently did not follow up after recent surgery Objective - Vital Signs/Intake and Output Vital Signs (last 24 hours): Temp Pulse Resp BP Pulse Ox 97.9 F 69 15 142/55 L 99 11/28/16 12:00 11/28/16 14:02 11/28/16 14:02 11/28/16 14:02 11/28/16 14:02 Intake and Output: 11/28/16 11/28/16 06:59 18:59 Intake Total 540 750 Output Total 2050 1100 Balance -1510 -350 - Medications Medications: Current Medications Amlodipine Besylate (Norvasc) 10 mg PO DAILY [facility] Last Admin: 11/28/16 09:48 Dose: 10 mg Docusate Sodium (Colace) 100 mg PO TID [facility] Last Admin: 11/28/16 13:18 Dose: 100 mg Duloxetine HCl (Cymbalta) 40 mg PO HS [facility] Last Admin: 11/27/16 21:16 Dose: 40 mg Famotidine (Pepcid) 20 mg IVP Q12 [facility] Last Admin: 11/28/16 10:03 Dose: 20 mg Ferrous Sulfate (Feosol) 325 mg PO BID [facility] Last Admin: 11/28/16 09:48 Dose: 325 mg Finasteride (Proscar) 5 mg PO DAILY [facility] Last Admin: 11/28/16 09:48 Dose: 5 mg Fluticasone Propionate (Flonase) 2 spr EMMA DAILY [facility] Last Admin: 11/28/16 09:48 Dose: 2 spr Hydromorphone HCl (Dilaudid) 1 mg IVP Q3H PRN PRN Reason: Pain, severe (8-10) Last Admin: 11/28/16 14:55 Dose: 1 mg Hydromorphone HCl (Dilaudid) 0.5 mg IVP Q3H PRN PRN Reason: Pain, moderate (4-7) Vancomycin HCl 1,000 mg/ (Sodium Chloride) 250 mls @ 166.6 mls/hr IVPB Q12H [facility] Last Admin: 11/28/16 13:04 Dose: 166.6 mls/hr Cefepime HCl (Maxipime Iv 1 Gm Premix) 1 gm in 50 mls @ 100 mls/hr IVPB Q12H [facility] Last Admin: 11/28/16 07:45 Dose: 100 mls/hr Insulin Detemir (Levemir) 36 unit SC HS [facility] Insulin Human Regular (Novolin R) 6 unit SC ACL [facility] Last Admin: 11/28/16 12:53 Dose: 6 unit Insulin Human Regular (Novolin R) 6 unit SC ACD [facility] Insulin Human Regular (Novolin R) 10 unit SC ACB [facility] Metoprolol Tartrate (Lopressor) 50 mg PO BID [facility] Last Admin: 11/28/16 10:08 Dose: 50 mg Mirtazapine (Remeron) 30 mg PO HS [facility] Last Admin: 11/27/16 21:16 Dose: 30 mg Ondansetron HCl (Zofran Inj) 4 mg IVP Q6H PRN PRN Reason: Nausea/Vomiting Rosuvastatin Calcium (Crestor) 10 mg PO QPM [facility] Last Admin: 11/27/16 17:48 Dose: 10 mg Tamsulosin HCl (Flomax) 0.4 mg PO DAILY [facility] Last Admin: 11/28/16 09:48 Dose: 0.4 mg - Labs Labs: 11/28/16 06:17 11/28/16 06:17 PT 13.1 SECONDS (9.7-12.2) H 11/27/16 06:28 INR 1.2 11/27/16 06:28 APTT 29 SECONDS (21-34) 11/27/16 06:28 - Constitutional Appears: Non-toxic, Chronically Ill - Head Exam Head Exam: NORMOCEPHALIC - Eye Exam Eye Exam: PERRL - ENT Exam ENT Exam: Mucous Membranes Dry - Neck Exam Neck Exam: absent: Lymphadenopathy - Respiratory Exam Respiratory Exam: Decreased Breath Sounds - Cardiovascular Exam Cardiovascular Exam: REGULAR RHYTHM - GI/Abdominal Exam GI & Abdominal Exam: Distended, Soft - Rectal Exam Rectal Exam: Deferred - Exam Exam: NORMAL INSPECTION - Extremities Exam Extremities Exam: absent: Calf Tenderness, Pedal Edema, Tenderness - Back Exam Back Exam: absent: CVA tenderness (L), CVA tenderness (R) - Neurological Exam Neurological Exam: Alert, Awake, Oriented x3 - Psychiatric Exam Psychiatric exam: Normal Mood - Skin Skin Exam: Dry Assessment and Plan (1) Femoral artery aneurysm, right Status: Acute (2) H/O ruptured arterial aneurysm Status: Acute (3) S/P aneurysm repair Status: Acute - Assessment and Plan (Free Text) Assessment: cont iv antibiotics await cultures
[2016-11-28] MEDS: Insulin Detemir 100 units/ml Vial (Levemir) SC SCH (21:52)
[2016-11-29 06:54] LABS: BASO % 0.5 % (0.0-2.0); EOS # 0.2 K/uL (0.0-0.7); EOS % 3.3 % (0.0-4.0); HEMATOCRIT 26.4 % (35.0-51.0); LYMPH # 0.8 K/uL (1.0-4.3); LYMPH % 12.1 % (20.0-40.0); MEAN CELL VOLUME 83.5 fL (80.0-94.0); MEAN CORPUSCULAR HEMOGLOBIN 28.7 pg (27.0-31.0); MEAN CORPUSCULAR HGB CONC 34.4 g/dL (33.0-37.0); MEAN PLATELET VOLUME 7.9 fL (7.2-11.7); MONO # 0.5 K/uL (0.0-0.8); RED CELL DISTRIBUTION WIDTH 16.1 % (11.5-14.5); WHITE BLOOD COUNT 6.6 K/uL (4.8-10.8)
[2016-11-29 07:06] LABS: CHLORIDE 102 mmol/L (98-107); SODIUM 135 mmol/L (132-148)
[2016-11-29 07:07] LABS: POTASSIUM 3.8 mmol/L (3.6-5.2)
[2016-11-29 07:09] LABS: ALB/GLOB RATIO 0.9 (1.0-2.1); ALKALINE PHOSPHATASE 106 U/L (38-126); ALT/SGPT 18 U/L (21-72); AST/SGOT 14 U/L (17-59); BILIRUBIN,TOTAL 0.4 mg/dL (0.2-1.3); BLOOD UREA NITROGEN 15 mg/dL (9-20); CALCIUM 8.6 mg/dl (8.6-10.4); CARBON DIOXIDE 22 mmol/L (22-30); GFR AFRICAN-AMERICAN > 60; GLUCOSE,RANDOM 62 mg/dL (75-110)
[2016-11-29] MEDS ORDERED: Dextrose 50% SYRINGE Inj (50 ml) IVP PRN (07:12)
[2016-11-29] MEDS ORDERED: Glucagon Recombinant 1 mg Inj IM PRN (07:12)
[2016-11-29] MEDS: (Novolin R) Insulin Human Regular 100 units/ml vial SC SCH ×3 (07:30→17:00)
[2016-11-29] MEDS: Cefepime IV 1 gm in Dextrose 1 GM/50 ML BAG IVPB SCH ×2 (08:00→19:39)
[2016-11-29] MEDS: Oxycodone/Acetaminophen 5/325 mg Tab PO PRN (08:14)
--- NOTE | 2016-11-29 09:56 | CP.PCM.PN ---
<Roxana Chandler - Last Filed: 11/29/16 11:26> Subjective - Date & Time of Evaluation Date of Evaluation: 11/29/16 Time of Evaluation: 08:00 - Subjective Subjective: Medicine Consult Note Patient seen and examined. The patient states that he feels well today and that his pain is well controlled on medications. POD #2 s/p emergent repair of ruptured right femoral artery pseudo-aneurysm with proximal ligatation and removal of femoral artery stent. Patient has been eating meals and has normal bowel movements. Denies fever, chills, chest pain, shortness of breath, palpitations, and headache. Per patient, he has not been out of bed because is afraid of feeling pain with ambulation. Patient was encouraged to sit up and in chair at bedside. Objective - Vital Signs/Intake and Output Vital Signs (last 24 hours): Temp Pulse Resp BP Pulse Ox 97.4 F L 74 20 176/72 H 100 11/29/16 08:28 11/29/16 08:28 11/29/16 08:28 11/29/16 08:28 11/29/16 08:28 Intake and Output: 11/29/16 11/29/16 06:59 18:59 Intake Total 60 Balance 60 - Medications Medications: Current Medications Amlodipine Besylate (Norvasc) 10 mg PO DAILY [facility] Last Admin: 11/29/16 09:13 Dose: 10 mg Dextrose (Dextrose 50% Inj) 0 ml IVP .STAT PRN; Protocol PRN Reason: Hypoglycemia Protocol Last Admin: 11/29/16 07:17 Dose: 50 ml Dextrose (Glutose 15) 0 gm PO .ONCE PRN; Protocol PRN Reason: Hypoglycemia Protocol Docusate Sodium (Colace) 100 mg PO TID [facility] Last Admin: 11/29/16 09:13 Dose: 100 mg Duloxetine HCl (Cymbalta) 40 mg PO HS [facility] Last Admin: 11/28/16 21:50 Dose: 40 mg Famotidine (Pepcid) 20 mg IVP Q12 [facility] Last Admin: 11/29/16 09:14 Dose: 20 mg Ferrous Sulfate (Feosol) 325 mg PO BID [facility] Last Admin: 11/29/16 09:14 Dose: 325 mg Finasteride (Proscar) 5 mg PO DAILY [facility] Last Admin: 11/29/16 09:14 Dose: 5 mg Fluticasone Propionate (Flonase) 2 spr EMMA DAILY [facility] Last Admin: 11/28/16 09:48 Dose: 2 spr Glucagon (Glucagen Diagnostic Kit) 0 mg IM .STAT PRN; Protocol PRN Reason: Hypoglycemia Protocol Hydromorphone HCl (Dilaudid) 1 mg IVP Q3H PRN PRN Reason: Pain, severe (8-10) Last Admin: 11/29/16 06:03 Dose: 1 mg Hydromorphone HCl (Dilaudid) 0.5 mg IVP Q3H PRN PRN Reason: Pain, moderate (4-7) Last Admin: 11/29/16 00:54 Dose: 0.5 mg Vancomycin HCl 1,000 mg/ (Sodium Chloride) 250 mls @ 166.6 mls/hr IVPB Q12H [facility] Last Admin: 11/29/16 00:18 Dose: 166.6 mls/hr Cefepime HCl (Maxipime Iv 1 Gm Premix) 1 gm in 50 mls @ 100 mls/hr IVPB Q12H [facility] Last Admin: 11/28/16 20:00 Dose: 100 mls/hr Dextrose (Dextrose 5% In Water 1000 Ml) 1,000 mls @ 0 mls/hr IV .Q0M PRN; Protocol; Per Protocol PRN Reason: Hypoglycemia Protocol Last Admin: 11/29/16 07:19 Dose: 100 mls/hr Insulin Detemir (Levemir) 36 unit SC HS [facility] Last Admin: 11/28/16 21:52 Dose: 36 unit Insulin Human Regular (Novolin R) 6 unit SC ACL [facility] Last Admin: 11/28/16 12:53 Dose: 6 unit Insulin Human Regular (Novolin R) 6 unit SC ACD [facility] Last Admin: 11/28/16 16:41 Dose: 6 unit Insulin Human Regular (Novolin R) 10 unit SC ACB [facility] Metoprolol Tartrate (Lopressor) 50 mg PO BID [facility] Last Admin: 11/29/16 09:14 Dose: 50 mg Mirtazapine (Remeron) 30 mg PO HS [facility] Last Admin: 11/28/16 21:49 Dose: 30 mg Ondansetron HCl (Zofran Inj) 4 mg IVP Q6H PRN PRN Reason: Nausea/Vomiting Oxycodone/Acetaminophen (Percocet 5/325 Mg Tab) 1 tab PO Q4H PRN PRN Reason: Pain, Mild (1-3) Stop: 12/02/16 07:40 Last Admin: 11/29/16 08:14 Dose: 1 tab Rosuvastatin Calcium (Crestor) 10 mg PO QPM [facility] Last Admin: 11/28/16 17:38 Dose: 10 mg Tamsulosin HCl (Flomax) 0.4 mg PO DAILY [facility] Last Admin: 11/29/16 09:13 Dose: 0.4 mg - Labs Labs: 11/29/16 06:48 11/29/16 06:46 PT 13.1 SECONDS (9.7-12.2) H 11/27/16 06:28 INR 1.2 11/27/16 06:28 APTT 29 SECONDS (21-34) 11/27/16 06:28 - Constitutional Appears: Well, Non-toxic, No Acute Distress - Head Exam Head Exam: ATRAUMATIC, NORMOCEPHALIC - Eye Exam Eye Exam: EOMI, Normal appearance - ENT Exam ENT Exam: Mucous Membranes Moist - Neck Exam Neck Exam: Normal Inspection - Respiratory Exam Respiratory Exam: Clear to Ausculation Bilateral, NORMAL BREATHING PATTERN. absent: Rhonchi, Wheezes, Respiratory Distress - Cardiovascular Exam Cardiovascular Exam: REGULAR RHYTHM, +S1, +S2, Murmur (systolic ). absent: Bradycardia, Tachycardia - GI/Abdominal Exam GI & Abdominal Exam: Soft, Normal Bowel Sounds. absent: Tenderness - Extremities Exam Extremities Exam: Full ROM. absent: Calf Tenderness, Joint Swelling, Pedal Edema, Tenderness - Neurological Exam Neurological Exam: Alert, Awake, Oriented x3 - Psychiatric Exam Psychiatric exam: Normal Affect, Normal Mood - Skin Skin Exam: Dry, Intact, Normal Color, Warm Assessment and Plan - Assessment and Plan (Free Text) Assessment: (1) S/P aneurysm repair Assessment and Plan: POD # 2 S/P emergent repair of ruptured right femoral artery pseudo-aneurysm with proximal ligatation and removal of femoral artery stent and patch; ruptured pseudo-aneurysm (possibly infected) on 11/27/[address] Lorenzo. Vascular Surgeon, Dr Lorenzo is the Primary on the case Infectious Disease, Dr Herrera, consulted- help appreciated Right Groin Wound Culture 11/27/16 shows Gram Negative Rods and Gram Positive Cocci- sensitivities reviewed Blood Culture 11/27/16 shows no growth after 24 hours Pain control with Hydromorphone Vancomycin 1 gm IV Q12h (11/27/16) Cefepime 1 gm IV Q12H (11/27/16) Status: Acute (2) Elevated alkaline phosphatase level Assessment and Plan: Resolved Per chart review, patient with Hx Dilated CBD On prior admission patient was advised to follow up with outpatient elective cholecystectomy (3) STEVEN (acute kidney injury) Assessment and Plan: Resolved, BUN/Cr 15/1 today Possibly secondary to hypotension, hypotension responded well to NS bolus Will continue to monitor Status: Acute (4) Hyponatremia This has resolved. Na+ 135 today Monitor (5) Acidosis likely Metabolic Could be secondary to recent surgery vs possible infected right femoral artery catheter which was removed vs compounded by the use of Glipizide for DM 2 Patient is on Vancomycin and Cefepime Glipizide has been discontinued This has resolved (6) Abdominal Bruit Abdominal Aorta U/S ordered on 11/27/16 was discontinued as patient had Abdominal Angiography performed on 10/21/16 and this did NOT show Abdominal Aneurysm. Please see full report for finding of Right Femoral Artery Pseudoaneurysm. (7) History of Diabetes Mellitus 2 Assessment and Plan: RISS - low dose Holding Glipizide because of the acidosis upon admission Continue home Insulin Regimen: Levemir 36 Units SC HS, Regular Insulin (Lispro not carried by our pharmacy) 10 Units SC ACB and 6 Units SC ACLD Continue Accuchecks ACHS Rosuvastatin 10mg PO HS Lisinopril 10mg PO daily Status: Chronic (8) History Hypertension Assessment and Plan: BP elevations noted Start Lisinopril 10mg PO daily on 11/30 Amlodipine 10mg PO 1x/day Metoprolol tartrate 25mg PO 2x/day was increased to 50 mg PO 2x/day with holding parameters 11/28/16 Continue to monitor q6h Status: Chronic (9) History of anemia Assessment and Plan: HgB/Hct are stable Ferrous Sulfate 325mg PO 2x/day Status: Chronic (10) History Chronic pancreatitis Assessment and Plan: Creon [id number] PO TID AC Meals not carried by our pharmacy therefore equilavent dose of Pacreaze Status: Chronic (11) History of depression Assessment and Plan: Duloxetine 40mg PO HS Mirtazapine 30mg PO HS Status: Chronic (12) History of BPH Assessment and Plan: Finasteride 5mg PO 1x/day Flomax 0.4 mg PO 1x/day Status: Chronic (13) History of Constipation Colace 100 mg PO TID (14) Prophylactic measure Assessment and Plan: GI: pepcid 20mg PO q12h DVT: Anticoagulation/SCDs not indicated at this time due to recent surgery of LE /PVD Diet: Heart healthy, diabetic diet <Kris Santana - Last Filed: 11/29/16 15:25> Objective - Vital Signs/Intake and Output Vital Signs (last 24 hours): Temp Pulse Resp BP Pulse Ox 97.4 F L 74 20 176/72 H 100 11/29/16 08:28 11/29/16 08:28 11/29/16 08:28 11/29/16 08:28 11/29/16 08:28 Intake and Output: 11/29/16 11/29/16 06:59 18:59 Intake Total 60 Balance 60 - Medications Medications: Current Medications Amlodipine Besylate (Norvasc) 10 mg PO DAILY [facility] Last Admin: 11/29/16 09:13 Dose: 10 mg Dextrose (Dextrose 50% Inj) 0 ml IVP .STAT PRN; Protocol PRN Reason: Hypoglycemia Protocol Last Admin: 11/29/16 07:17 Dose: 50 ml Dextrose (Glutose 15) 0 gm PO .ONCE PRN; Protocol PRN Reason: Hypoglycemia Protocol Docusate Sodium (Colace) 100 mg PO TID [facility] Last Admin: 11/29/16 09:13 Dose: 100 mg Duloxetine HCl (Cymbalta) 40 mg PO HS [facility] Last Admin: 11/28/16 21:50 Dose: 40 mg Famotidine (Pepcid) 20 mg PO BID [facility] Ferrous Sulfate (Feosol) 325 mg PO BID [facility] Last Admin: 11/29/16 09:14 Dose: 325 mg Finasteride (Proscar) 5 mg PO DAILY [facility] Last Admin: 11/29/16 09:14 Dose: 5 mg Fluticasone Propionate (Flonase) 2 spr EMMA DAILY [facility] Last Admin: 11/29/16 10:00 Dose: Not Given Glucagon (Glucagen Diagnostic Kit) 0 mg IM .STAT PRN; Protocol PRN Reason: Hypoglycemia Protocol Hydromorphone HCl (Dilaudid) 1 mg IVP Q3H PRN PRN Reason: Pain, severe (8-10) Last Admin: 11/29/16 06:03 Dose: 1 mg Hydromorphone HCl (Dilaudid) 0.5 mg IVP Q3H PRN PRN Reason: Pain, moderate (4-7) Last Admin: 11/29/16 00:54 Dose: 0.5 mg Vancomycin HCl 1,000 mg/ (Sodium Chloride) 250 mls @ 166.6 mls/hr IVPB Q12H [facility] Last Admin: 11/29/16 12:30 Dose: 166.6 mls/hr Cefepime HCl (Maxipime Iv 1 Gm Premix) 1 gm in 50 mls @ 100 mls/hr IVPB Q12H [facility] Last Admin: 11/29/16 08:00 Dose: 100 mls/hr Dextrose (Dextrose 5% In Water 1000 Ml) 1,000 mls @ 0 mls/hr IV .Q0M PRN; Protocol; Per Protocol PRN Reason: Hypoglycemia Protocol Last Admin: 11/29/16 07:19 Dose: 100 mls/hr Insulin Detemir (Levemir) 36 unit SC HS [facility] Last Admin: 11/28/16 21:52 Dose: 36 unit Insulin Human Regular (Novolin R) 6 unit SC ACL [facility] Last Admin: 11/29/16 13:27 Dose: 6 unit Insulin Human Regular (Novolin R) 6 unit SC ACD [facility] Last Admin: 11/28/16 16:41 Dose: 6 unit Insulin Human Regular (Novolin R) 10 unit SC ACB [facility] Last Admin: 11/29/16 07:30 Dose: Not Given Lisinopril (Zestril) 10 mg PO DAILY [facility] Metoprolol Tartrate (Lopressor) 50 mg PO BID [facility] Last Admin: 11/29/16 09:14 Dose: 50 mg Mirtazapine (Remeron) 30 mg PO HS [facility] Last Admin: 11/28/16 21:49 Dose: 30 mg Ondansetron HCl (Zofran Inj) 4 mg IVP Q6H PRN PRN Reason: Nausea/Vomiting Oxycodone/Acetaminophen (Percocet 5/325 Mg Tab) 1 tab PO Q4H PRN PRN Reason: Pain, Mild (1-3) Stop: 12/02/16 07:40 Last Admin: 11/29/16 08:14 Dose: 1 tab Rosuvastatin Calcium (Crestor) 10 mg PO QPM [facility] Last Admin: 11/28/16 17:38 Dose: 10 mg Tamsulosin HCl (Flomax) 0.4 mg PO DAILY [facility] Last Admin: 11/29/16 09:13 Dose: 0.4 mg - Labs Labs: 11/29/16 06:48 11/29/16 06:46 PT 13.1 SECONDS (9.7-12.2) H 11/27/16 06:28 INR 1.2 11/27/16 06:28 APTT 29 SECONDS (21-34) 11/27/16 06:28 Attending/Attestation - Attestation I have personally seen and examined this patient.: Yes I have fully participated in the care of the patient.: Yes I have reviewed all pertinent clinical information, including history, physical exam and plan: Yes Notes (Text): 11/29/16 15:20 Patient was seen and examined at 3 PM 11/29/16 671 B Exam, assessment and plan were thoroughly gone over with the resident. Physical Exam: - Constitutional Appears: Non-toxic, No Acute Distress - Head Exam Head Exam: NORMAL INSPECTION - Eye Exam Eye Exam: EOMI. PERRLA absent: Nystagmus, Scleral icterus, - ENT Exam ENT Exam: Mucous Membranes Moist, NO lymphadenopathy, NO thyromegaly, Mucous membranes are moist, NO pharyngeal erythema/exudate - Respiratory Exam Respiratory Exam: CTA B/L NO R/R/W - Cardiovascular Exam Cardiovascular Exam: HOLOSYTOLIC MURMUR. absent: JVD - GI/Abdominal Exam GI & Abdominal Exam: Soft, Normal Bowel Sounds, NO HSM, NO guarding, NO rebound tenderness. Midabdominal Bruit - Extremities Exam Extremities Exam: NO edema. Right Lower leg to foot are cool to the touch and dusky/pale appearance. Right LE pulses could not be palpated but confirmed with doppler by Nurse Deepak. Capillary refill of the Right LE is 4 to 5 seconds. Left LE is warm to the touch, normal color, capillary refill is 3 seconds - Neurological Exam Neurological Exam: Alert, Awake, Oriented x3. When asking patient questions he has a hard time recollecting information and states that this is normal for him - Psychiatric Exam Psychiatric exam: Normal Affect, Normal Mood - Skin Skin Exam: Dry, Intact, Normal Color, Warm Please note the following: Heparin 5,000 units SC Q8H was ordered for DVT prophylaxis after speaking with Vascular Surgeon to make sure Ok Groin Wound Culture 11/27/16 shows E. coli and MRSA and the patient is on Cefepime and Vancomycin. F/U Vanco Trough ordered for midnight tonight Blood Culture 11/27/16 is negative to date at 48 hours. Vascular Surgery Team planning on Fem-Pop Bypass Right Leg for Thursday12/02/16 as long as the blood culture remains negative Lisinopril 10 mg PO 1x/day added for uncontrolled blood pressure as well as renal protection considering the history of DM. Plan of care was explained to patient. Kris Santana D.O.
[2016-11-29] MEDS: LIPASE/PROTEASE/AMYLASE 4,200 U ECC PO SCH ×3 (10:00→18:56)
[2016-11-29] MEDS: Fluticasone Nasal 50 mcg/Spray NAS SCH (10:00)
--- NOTE | 2016-11-29 10:29 | CP.PCM.PN ---
Subjective - Date & Time of Evaluation Date of Evaluation: 11/29/16 Time of Evaluation: 07:15 - Subjective Subjective: Vascular Surgery Dr. Lorenzo Pt S&E @bedside. NAEO. reports pain, numbness of RLE. denies F/C, N/V. tolerating diet. Objective - Vital Signs/Intake and Output Vital Signs (last 24 hours): Temp Pulse Resp BP Pulse Ox 97.4 F L 74 20 176/72 H 100 11/29/16 08:28 11/29/16 08:28 11/29/16 08:28 11/29/16 08:28 11/29/16 08:28 Intake and Output: 11/29/16 11/29/16 06:59 18:59 Intake Total 60 Balance 60 - Medications Medications: Current Medications Amlodipine Besylate (Norvasc) 10 mg PO DAILY [facility] Last Admin: 11/29/16 09:13 Dose: 10 mg Dextrose (Dextrose 50% Inj) 0 ml IVP .STAT PRN; Protocol PRN Reason: Hypoglycemia Protocol Last Admin: 11/29/16 07:17 Dose: 50 ml Dextrose (Glutose 15) 0 gm PO .ONCE PRN; Protocol PRN Reason: Hypoglycemia Protocol Docusate Sodium (Colace) 100 mg PO TID [facility] Last Admin: 11/29/16 09:13 Dose: 100 mg Duloxetine HCl (Cymbalta) 40 mg PO HS [facility] Last Admin: 11/28/16 21:50 Dose: 40 mg Famotidine (Pepcid) 20 mg IVP Q12 [facility] Last Admin: 11/29/16 09:14 Dose: 20 mg Ferrous Sulfate (Feosol) 325 mg PO BID [facility] Last Admin: 11/29/16 09:14 Dose: 325 mg Finasteride (Proscar) 5 mg PO DAILY [facility] Last Admin: 11/29/16 09:14 Dose: 5 mg Fluticasone Propionate (Flonase) 2 spr EMMA DAILY [facility] Last Admin: 11/28/16 09:48 Dose: 2 spr Glucagon (Glucagen Diagnostic Kit) 0 mg IM .STAT PRN; Protocol PRN Reason: Hypoglycemia Protocol Hydromorphone HCl (Dilaudid) 1 mg IVP Q3H PRN PRN Reason: Pain, severe (8-10) Last Admin: 11/29/16 06:03 Dose: 1 mg Hydromorphone HCl (Dilaudid) 0.5 mg IVP Q3H PRN PRN Reason: Pain, moderate (4-7) Last Admin: 11/29/16 00:54 Dose: 0.5 mg Vancomycin HCl 1,000 mg/ (Sodium Chloride) 250 mls @ 166.6 mls/hr IVPB Q12H [facility] Last Admin: 11/29/16 00:18 Dose: 166.6 mls/hr Cefepime HCl (Maxipime Iv 1 Gm Premix) 1 gm in 50 mls @ 100 mls/hr IVPB Q12H [facility] Last Admin: 11/28/16 20:00 Dose: 100 mls/hr Dextrose (Dextrose 5% In Water 1000 Ml) 1,000 mls @ 0 mls/hr IV .Q0M PRN; Protocol; Per Protocol PRN Reason: Hypoglycemia Protocol Last Admin: 11/29/16 07:19 Dose: 100 mls/hr Insulin Detemir (Levemir) 36 unit SC HS [facility] Last Admin: 11/28/16 21:52 Dose: 36 unit Insulin Human Regular (Novolin R) 6 unit SC ACL [facility] Last Admin: 11/28/16 12:53 Dose: 6 unit Insulin Human Regular (Novolin R) 6 unit SC ACD [facility] Last Admin: 11/28/16 16:41 Dose: 6 unit Insulin Human Regular (Novolin R) 10 unit SC ACB [facility] Metoprolol Tartrate (Lopressor) 50 mg PO BID [facility] Last Admin: 11/29/16 09:14 Dose: 50 mg Mirtazapine (Remeron) 30 mg PO HS [facility] Last Admin: 11/28/16 21:49 Dose: 30 mg Ondansetron HCl (Zofran Inj) 4 mg IVP Q6H PRN PRN Reason: Nausea/Vomiting Oxycodone/Acetaminophen (Percocet 5/325 Mg Tab) 1 tab PO Q4H PRN PRN Reason: Pain, Mild (1-3) Stop: 12/02/16 07:40 Last Admin: 11/29/16 08:14 Dose: 1 tab Rosuvastatin Calcium (Crestor) 10 mg PO QPM [facility] Last Admin: 11/28/16 17:38 Dose: 10 mg Tamsulosin HCl (Flomax) 0.4 mg PO DAILY [facility] Last Admin: 11/29/16 09:13 Dose: 0.4 mg - Labs Labs: 11/29/16 06:48 11/29/16 06:46 PT 13.1 SECONDS (9.7-12.2) H 11/27/16 06:28 INR 1.2 11/27/16 06:28 APTT 29 SECONDS (21-34) 11/27/16 06:28 - Constitutional Appears: Non-toxic, No Acute Distress - Head Exam Head Exam: NORMAL INSPECTION - Eye Exam Eye Exam: Normal appearance - ENT Exam ENT Exam: Mucous Membranes Moist - Respiratory Exam Respiratory Exam: NORMAL BREATHING PATTERN. absent: Accessory Muscle Use, Respiratory Distress - Cardiovascular Exam Cardiovascular Exam: absent: Bradycardia, Tachycardia - GI/Abdominal Exam GI & Abdominal Exam: Soft. absent: Distended - Extremities Exam Additional comments: RLE cold, pulseless groin dressing c/d/i - Neurological Exam Neurological Exam: Alert, Awake, Oriented x3 - Psychiatric Exam Psychiatric exam: Normal Affect, Normal Mood - Skin Skin Exam: Dry, Intact, Normal Color, Warm Assessment and Plan - Assessment and Plan (Free Text) Assessment: 70 y/o M w/ ruptured infected right femoral artery pseudo-aneurysm s/p emergent repair of ruptured right femoral artery pseudo-aneurysm with proximal ligatation and removal of femoral artery stent and patch POD#1 - Advance diet as tolerated - cont IV Abx per ID - cont pain management - encourage OOB to chair/ AMB/IS use - Patient will need revascularization procedure of right lower extremity once infection is resolved Pt discussed w/ Dr. Maura Rodrigues DO PGY2
--- NOTE | 2016-11-29 13:07 | CP.PCM.PN ---
Subjective - Date & Time of Evaluation Date of Evaluation: 11/29/16 Time of Evaluation: 13:07 - Subjective Subjective: cultures show MRSA and e coli needs revascularization when safe to procedd Objective - Vital Signs/Intake and Output Vital Signs (last 24 hours): Temp Pulse Resp BP Pulse Ox 97.4 F L 74 20 176/72 H 100 11/29/16 08:28 11/29/16 08:28 11/29/16 08:28 11/29/16 08:28 11/29/16 08:28 Intake and Output: 11/29/16 11/29/16 06:59 18:59 Intake Total 60 Balance 60 - Medications Medications: Current Medications Amlodipine Besylate (Norvasc) 10 mg PO DAILY [facility] Last Admin: 11/29/16 09:13 Dose: 10 mg Dextrose (Dextrose 50% Inj) 0 ml IVP .STAT PRN; Protocol PRN Reason: Hypoglycemia Protocol Last Admin: 11/29/16 07:17 Dose: 50 ml Dextrose (Glutose 15) 0 gm PO .ONCE PRN; Protocol PRN Reason: Hypoglycemia Protocol Docusate Sodium (Colace) 100 mg PO TID [facility] Last Admin: 11/29/16 09:13 Dose: 100 mg Duloxetine HCl (Cymbalta) 40 mg PO HS [facility] Last Admin: 11/28/16 21:50 Dose: 40 mg Famotidine (Pepcid) 20 mg PO BID [facility] Ferrous Sulfate (Feosol) 325 mg PO BID [facility] Last Admin: 11/29/16 09:14 Dose: 325 mg Finasteride (Proscar) 5 mg PO DAILY [facility] Last Admin: 11/29/16 09:14 Dose: 5 mg Fluticasone Propionate (Flonase) 2 spr EMMA DAILY [facility] Last Admin: 11/28/16 09:48 Dose: 2 spr Glucagon (Glucagen Diagnostic Kit) 0 mg IM .STAT PRN; Protocol PRN Reason: Hypoglycemia Protocol Hydromorphone HCl (Dilaudid) 1 mg IVP Q3H PRN PRN Reason: Pain, severe (8-10) Last Admin: 11/29/16 06:03 Dose: 1 mg Hydromorphone HCl (Dilaudid) 0.5 mg IVP Q3H PRN PRN Reason: Pain, moderate (4-7) Last Admin: 11/29/16 00:54 Dose: 0.5 mg Vancomycin HCl 1,000 mg/ (Sodium Chloride) 250 mls @ 166.6 mls/hr IVPB Q12H [facility] Last Admin: 11/29/16 00:18 Dose: 166.6 mls/hr Cefepime HCl (Maxipime Iv 1 Gm Premix) 1 gm in 50 mls @ 100 mls/hr IVPB Q12H [facility] Last Admin: 11/29/16 08:00 Dose: 100 mls/hr Dextrose (Dextrose 5% In Water 1000 Ml) 1,000 mls @ 0 mls/hr IV .Q0M PRN; Protocol; Per Protocol PRN Reason: Hypoglycemia Protocol Last Admin: 11/29/16 07:19 Dose: 100 mls/hr Insulin Detemir (Levemir) 36 unit SC HS [facility] Last Admin: 11/28/16 21:52 Dose: 36 unit Insulin Human Regular (Novolin R) 6 unit SC ACL [facility] Last Admin: 11/28/16 12:53 Dose: 6 unit Insulin Human Regular (Novolin R) 6 unit SC ACD [facility] Last Admin: 11/28/16 16:41 Dose: 6 unit Insulin Human Regular (Novolin R) 10 unit SC ACB [facility] Lisinopril (Zestril) 10 mg PO DAILY [facility] Metoprolol Tartrate (Lopressor) 50 mg PO BID [facility] Last Admin: 11/29/16 09:14 Dose: 50 mg Mirtazapine (Remeron) 30 mg PO HS [facility] Last Admin: 11/28/16 21:49 Dose: 30 mg Ondansetron HCl (Zofran Inj) 4 mg IVP Q6H PRN PRN Reason: Nausea/Vomiting Oxycodone/Acetaminophen (Percocet 5/325 Mg Tab) 1 tab PO Q4H PRN PRN Reason: Pain, Mild (1-3) Stop: 12/02/16 07:40 Last Admin: 11/29/16 08:14 Dose: 1 tab Rosuvastatin Calcium (Crestor) 10 mg PO QPM [facility] Last Admin: 11/28/16 17:38 Dose: 10 mg Tamsulosin HCl (Flomax) 0.4 mg PO DAILY [facility] Last Admin: 11/29/16 09:13 Dose: 0.4 mg - Labs Labs: 11/29/16 06:48 11/29/16 06:46 PT 13.1 SECONDS (9.7-12.2) H 11/27/16 06:28 INR 1.2 11/27/16 06:28 APTT 29 SECONDS (21-34) 11/27/16 06:28
--- NOTE | 2016-11-29 15:31 | CP.PCM.PCO ---
Physician Communication Note - Physician Communication Note Physician Communication Note: Fleet Enema as NO bowel movement for 7 days
[2016-11-29] MEDS: Insulin Detemir 100 units/ml Vial (Levemir) SC SCH (23:24)
[2016-11-30] MEDS: Cefepime IV 1 gm in Dextrose 1 GM/50 ML BAG IVPB SCH ×2 (08:00→21:14)
--- NOTE | 2016-11-30 08:58 | CP.PCM.PN ---
Subjective - Date & Time of Evaluation Date of Evaluation: 11/30/16 Time of Evaluation: 06:30 - Subjective Subjective: Vascular Surgery Dr. Lorenzo Pt S&E @bedside. NAEO. pt reports improved pain control w/ medication. RLE still numb. denies F/C, N/V. tolerating diet. Objective - Vital Signs/Intake and Output Vital Signs (last 24 hours): Temp Pulse Resp BP Pulse Ox 97.4 F L 71 20 128/63 98 11/30/16 05:02 11/30/16 05:02 11/30/16 05:02 11/30/16 05:02 11/30/16 05:02 Intake and Output: 11/30/16 11/30/16 06:59 18:59 Intake Total 600 Output Total 250 Balance 350 - Medications Medications: Current Medications Amlodipine Besylate (Norvasc) 10 mg PO DAILY [facility] Last Admin: 11/29/16 09:13 Dose: 10 mg Dextrose (Dextrose 50% Inj) 0 ml IVP .STAT PRN; Protocol PRN Reason: Hypoglycemia Protocol Last Admin: 11/29/16 07:17 Dose: 50 ml Dextrose (Glutose 15) 0 gm PO .ONCE PRN; Protocol PRN Reason: Hypoglycemia Protocol Docusate Sodium (Colace) 100 mg PO TID [facility] Last Admin: 11/29/16 18:54 Dose: 100 mg Duloxetine HCl (Cymbalta) 40 mg PO HS [facility] Last Admin: 11/29/16 21:56 Dose: 40 mg Famotidine (Pepcid) 20 mg PO BID [facility] Last Admin: 11/29/16 19:04 Dose: 20 mg Ferrous Sulfate (Feosol) 325 mg PO BID [facility] Last Admin: 11/29/16 18:55 Dose: 325 mg Finasteride (Proscar) 5 mg PO DAILY [facility] Last Admin: 11/29/16 09:14 Dose: 5 mg Fluticasone Propionate (Flonase) 2 spr EMMA DAILY [facility] Last Admin: 11/29/16 10:00 Dose: Not Given Glucagon (Glucagen Diagnostic Kit) 0 mg IM .STAT PRN; Protocol PRN Reason: Hypoglycemia Protocol Heparin Sodium (Porcine) (Heparin) 5,000 units SC Q8 [facility] Last Admin: 11/30/16 05:42 Dose: 5,000 units Hydromorphone HCl (Dilaudid) 1 mg IVP Q3H PRN PRN Reason: Pain, severe (8-10) Last Admin: 11/30/16 05:48 Dose: 1 mg Hydromorphone HCl (Dilaudid) 0.5 mg IVP Q3H PRN PRN Reason: Pain, moderate (4-7) Last Admin: 11/29/16 00:54 Dose: 0.5 mg Vancomycin HCl 1,000 mg/ (Sodium Chloride) 250 mls @ 166.6 mls/hr IVPB Q12H [facility] Last Admin: 11/30/16 00:17 Dose: 166.6 mls/hr Cefepime HCl (Maxipime Iv 1 Gm Premix) 1 gm in 50 mls @ 100 mls/hr IVPB Q12H [facility] Last Admin: 11/29/16 19:39 Dose: 100 mls/hr Insulin Detemir (Levemir) 36 unit SC HS [facility] Last Admin: 11/29/16 23:24 Dose: 36 unit Insulin Human Regular (Novolin R) 6 unit SC ACL [facility] Last Admin: 11/29/16 13:27 Dose: 6 unit Insulin Human Regular (Novolin R) 6 unit SC ACD [facility] Last Admin: 11/29/16 17:00 Dose: Not Given Insulin Human Regular (Novolin R) 10 unit SC ACB [facility] Last Admin: 11/29/16 07:30 Dose: Not Given Lisinopril (Zestril) 10 mg PO DAILY [facility] Metoprolol Tartrate (Lopressor) 50 mg PO BID [facility] Last Admin: 11/29/16 18:55 Dose: 50 mg Mirtazapine (Remeron) 30 mg PO HS [facility] Last Admin: 11/29/16 21:57 Dose: 30 mg Ondansetron HCl (Zofran Inj) 4 mg IVP Q6H PRN PRN Reason: Nausea/Vomiting Oxycodone/Acetaminophen (Percocet 5/325 Mg Tab) 1 tab PO Q4H PRN PRN Reason: Pain, Mild (1-3) Stop: 12/02/16 07:40 Last Admin: 11/29/16 08:14 Dose: 1 tab Rosuvastatin Calcium (Crestor) 10 mg PO QPM [facility] Last Admin: 11/29/16 21:15 Dose: 10 mg Tamsulosin HCl (Flomax) 0.4 mg PO DAILY [facility] Last Admin: 11/29/16 09:13 Dose: 0.4 mg - Labs Labs: 11/29/16 06:48 11/29/16 06:46 PT 13.1 SECONDS (9.7-12.2) H 11/27/16 06:28 INR 1.2 11/27/16 06:28 APTT 29 SECONDS (21-34) 11/27/16 06:28 - Constitutional Appears: Non-toxic, No Acute Distress - Head Exam Head Exam: NORMAL INSPECTION - Eye Exam Eye Exam: Normal appearance - ENT Exam ENT Exam: Mucous Membranes Moist - Respiratory Exam Respiratory Exam: NORMAL BREATHING PATTERN. absent: Accessory Muscle Use, Respiratory Distress - Cardiovascular Exam Cardiovascular Exam: absent: Bradycardia, Tachycardia - GI/Abdominal Exam GI & Abdominal Exam: Soft. absent: Distended - Exam Additional comments: incision c/d/i. no drainage, erythema, swelling - Extremities Exam Additional comments: no palpable pulses RLE. 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 Maura Resendiz DO PGY2
[2016-11-30] MEDS: LIPASE/PROTEASE/AMYLASE 4,200 U ECC PO SCH ×4 (10:00→18:40)
[2016-11-30] MEDS: (Novolin R) Insulin Human Regular 100 units/ml vial SC SCH ×3 (10:37→18:00)
[2016-11-30] MEDS: Fluticasone Nasal 50 mcg/Spray NAS SCH (10:53)
--- NOTE | 2016-11-30 11:39 | CP.PCM.PN ---
Subjective - Date & Time of Evaluation Date of Evaluation: 11/30/16 Time of Evaluation: 11:38 - Subjective Subjective: plan right leg iliac popliteal "obdurator" bypass thursday Objective - Vital Signs/Intake and Output Vital Signs (last 24 hours): Temp Pulse Resp BP Pulse Ox 97.4 F L 83 18 132/75 96 11/30/16 07:35 11/30/16 07:35 11/30/16 07:35 11/30/16 07:35 11/30/16 07:35 Intake and Output: 11/30/16 11/30/16 06:59 18:59 Intake Total 600 Output Total 250 Balance 350 - Medications Medications: Current Medications Amlodipine Besylate (Norvasc) 10 mg PO DAILY [facility] Last Admin: 11/30/16 10:28 Dose: 10 mg Dextrose (Dextrose 50% Inj) 0 ml IVP .STAT PRN; Protocol PRN Reason: Hypoglycemia Protocol Last Admin: 11/29/16 07:17 Dose: 50 ml Dextrose (Glutose 15) 0 gm PO .ONCE PRN; Protocol PRN Reason: Hypoglycemia Protocol Docusate Sodium (Colace) 100 mg PO TID [facility] Last Admin: 11/30/16 10:28 Dose: 100 mg Duloxetine HCl (Cymbalta) 40 mg PO HS [facility] Last Admin: 11/29/16 21:56 Dose: 40 mg Famotidine (Pepcid) 20 mg PO BID [facility] Last Admin: 11/30/16 10:30 Dose: 20 mg Ferrous Sulfate (Feosol) 325 mg PO BID [facility] Last Admin: 11/30/16 10:29 Dose: 325 mg Finasteride (Proscar) 5 mg PO DAILY [facility] Last Admin: 11/30/16 10:32 Dose: 5 mg Fluticasone Propionate (Flonase) 2 spr EMMA DAILY [facility] Last Admin: 11/30/16 10:53 Dose: Not Given Glucagon (Glucagen Diagnostic Kit) 0 mg IM .STAT PRN; Protocol PRN Reason: Hypoglycemia Protocol Heparin Sodium (Porcine) (Heparin) 5,000 units SC Q8 [facility] Last Admin: 11/30/16 05:42 Dose: 5,000 units Hydromorphone HCl (Dilaudid) 1 mg IVP Q3H PRN PRN Reason: Pain, severe (8-10) Last Admin: 11/30/16 10:25 Dose: 1 mg Hydromorphone HCl (Dilaudid) 0.5 mg IVP Q3H PRN PRN Reason: Pain, moderate (4-7) Last Admin: 11/29/16 00:54 Dose: 0.5 mg Vancomycin HCl 1,000 mg/ (Sodium Chloride) 250 mls @ 166.6 mls/hr IVPB Q12H [facility] Last Admin: 11/30/16 00:17 Dose: 166.6 mls/hr Cefepime HCl (Maxipime Iv 1 Gm Premix) 1 gm in 50 mls @ 100 mls/hr IVPB Q12H [facility] Last Admin: 11/30/16 08:00 Dose: 100 mls/hr Insulin Detemir (Levemir) 36 unit SC HS [facility] Last Admin: 11/29/16 23:24 Dose: 36 unit Insulin Human Regular (Novolin R) 6 unit SC ACL [facility] Last Admin: 11/29/16 13:27 Dose: 6 unit Insulin Human Regular (Novolin R) 6 unit SC ACD [facility] Last Admin: 11/29/16 17:00 Dose: Not Given Insulin Human Regular (Novolin R) 10 unit SC ACB [facility] Last Admin: 11/30/16 10:37 Dose: 10 unit Lisinopril (Zestril) 10 mg PO DAILY [facility] Last Admin: 11/30/16 10:30 Dose: 10 mg Metoprolol Tartrate (Lopressor) 50 mg PO BID [facility] Last Admin: 11/30/16 10:52 Dose: 50 mg Mirtazapine (Remeron) 30 mg PO [facility] Last Admin: 11/29/16 21:57 Dose: 30 mg Ondansetron HCl (Zofran Inj) 4 mg IVP Q6H PRN PRN Reason: Nausea/Vomiting Oxycodone/Acetaminophen (Percocet 5/325 Mg Tab) 1 tab PO Q4H PRN PRN Reason: Pain, Mild (1-3) Stop: 12/02/16 07:40 Last Admin: 11/29/16 08:14 Dose: 1 tab Rosuvastatin Calcium (Crestor) 10 mg PO QPM [facility] Last Admin: 11/29/16 21:15 Dose: 10 mg Tamsulosin HCl (Flomax) 0.4 mg PO DAILY [facility] Last Admin: 11/30/16 10:29 Dose: 0.4 mg - Labs Labs: 11/29/16 06:48 11/29/16 06:46 PT 13.1 SECONDS (9.7-12.2) H 11/27/16 06:28 INR 1.2 11/27/16 06:28 APTT 29 SECONDS (21-34) 11/27/16 06:28
--- NOTE | 2016-11-30 11:40 | CP.PCM.PN ---
<Roxana Chandler - Last Filed: 11/30/16 13:34> Subjective - Date & Time of Evaluation Date of Evaluation: 11/30/16 Time of Evaluation: 11:22 - Subjective Subjective: Medicine Consult Note Patient seen and examined. The patient states that he feels well today. The patient's pain is well controlled on medications. POD #3 s/p emergent repair of ruptured right femoral artery pseudo-aneurysm with proximal ligatation and removal of femoral artery stent. Per patient, he has had a "wake-up call" regarding his health and states that he is ready to make healthy life choices such as quitting smoking. The patient denies chest pain, shortness of breath and coughing. Objective - Vital Signs/Intake and Output Vital Signs (last 24 hours): Temp Pulse Resp BP Pulse Ox 97.4 F L 83 18 132/75 96 11/30/16 07:35 11/30/16 07:35 11/30/16 07:35 11/30/16 07:35 11/30/16 07:35 Intake and Output: 11/30/16 11/30/16 06:59 18:59 Intake Total 600 Output Total 250 Balance 350 - Medications Medications: Current Medications Amlodipine Besylate (Norvasc) 10 mg PO DAILY [facility] Last Admin: 11/30/16 10:28 Dose: 10 mg Dextrose (Dextrose 50% Inj) 0 ml IVP .STAT PRN; Protocol PRN Reason: Hypoglycemia Protocol Last Admin: 11/29/16 07:17 Dose: 50 ml Dextrose (Glutose 15) 0 gm PO .ONCE PRN; Protocol PRN Reason: Hypoglycemia Protocol Docusate Sodium (Colace) 100 mg PO TID [facility] Last Admin: 11/30/16 10:28 Dose: 100 mg Duloxetine HCl (Cymbalta) 40 mg PO HS [facility] Last Admin: 11/29/16 21:56 Dose: 40 mg Famotidine (Pepcid) 20 mg PO BID [facility] Last Admin: 11/30/16 10:30 Dose: 20 mg Ferrous Sulfate (Feosol) 325 mg PO BID [facility] Last Admin: 11/30/16 10:29 Dose: 325 mg Finasteride (Proscar) 5 mg PO DAILY [facility] Last Admin: 11/30/16 10:32 Dose: 5 mg Fluticasone Propionate (Flonase) 2 spr EMMA DAILY [facility] Last Admin: 11/30/16 10:53 Dose: Not Given Glucagon (Glucagen Diagnostic Kit) 0 mg IM .STAT PRN; Protocol PRN Reason: Hypoglycemia Protocol Heparin Sodium (Porcine) (Heparin) 5,000 units SC Q8 [facility] Last Admin: 11/30/16 05:42 Dose: 5,000 units Hydromorphone HCl (Dilaudid) 1 mg IVP Q3H PRN PRN Reason: Pain, severe (8-10) Last Admin: 11/30/16 10:25 Dose: 1 mg Hydromorphone HCl (Dilaudid) 0.5 mg IVP Q3H PRN PRN Reason: Pain, moderate (4-7) Last Admin: 11/29/16 00:54 Dose: 0.5 mg Vancomycin HCl 1,000 mg/ (Sodium Chloride) 250 mls @ 166.6 mls/hr IVPB Q12H [facility] Last Admin: 11/30/16 00:17 Dose: 166.6 mls/hr Cefepime HCl (Maxipime Iv 1 Gm Premix) 1 gm in 50 mls @ 100 mls/hr IVPB Q12H [facility] Last Admin: 11/30/16 08:00 Dose: 100 mls/hr Insulin Detemir (Levemir) 36 unit SC HS [facility] Last Admin: 11/29/16 23:24 Dose: 36 unit Insulin Human Regular (Novolin R) 6 unit SC ACL [facility] Last Admin: 11/29/16 13:27 Dose: 6 unit Insulin Human Regular (Novolin R) 6 unit SC ACD [facility] Last Admin: 11/29/16 17:00 Dose: Not Given Insulin Human Regular (Novolin R) 10 unit SC ACB [facility] Last Admin: 11/30/16 10:37 Dose: 10 unit Lisinopril (Zestril) 10 mg PO DAILY [facility] Last Admin: 11/30/16 10:30 Dose: 10 mg Metoprolol Tartrate (Lopressor) 50 mg PO BID [facility] Last Admin: 11/30/16 10:52 Dose: 50 mg Mirtazapine (Remeron) 30 mg PO HS [facility] Last Admin: 11/29/16 21:57 Dose: 30 mg Ondansetron HCl (Zofran Inj) 4 mg IVP Q6H PRN PRN Reason: Nausea/Vomiting Oxycodone/Acetaminophen (Percocet 5/325 Mg Tab) 1 tab PO Q4H PRN PRN Reason: Pain, Mild (1-3) Stop: 12/02/16 07:40 Last Admin: 11/29/16 08:14 Dose: 1 tab Rosuvastatin Calcium (Crestor) 10 mg PO QPM [facility] Last Admin: 11/29/16 21:15 Dose: 10 mg Tamsulosin HCl (Flomax) 0.4 mg PO DAILY [facility] Last Admin: 11/30/16 10:29 Dose: 0.4 mg - Labs Labs: 11/29/16 06:48 11/29/16 06:46 PT 13.1 SECONDS (9.7-12.2) H 11/27/16 06:28 INR 1.2 11/27/16 06:28 APTT 29 SECONDS (21-34) 11/27/16 06:28 - Constitutional Appears: Non-toxic, No Acute Distress - Head Exam Head Exam: ATRAUMATIC, NORMOCEPHALIC - Eye Exam Eye Exam: EOMI, Normal appearance - ENT Exam ENT Exam: Mucous Membranes Moist - Respiratory Exam Respiratory Exam: Wheezes (diffuse mild expiratory wheezing), NORMAL BREATHING PATTERN. absent: Rales, Rhonchi, Respiratory Distress, Stridor - Cardiovascular Exam Cardiovascular Exam: REGULAR RHYTHM, +S1, +S2 - GI/Abdominal Exam GI & Abdominal Exam: Bruit, Soft, Normal Bowel Sounds. absent: Distended, Firm , Tenderness - Extremities Exam Extremities Exam: Normal Inspection (Left leg ) Additional comments: Right leg- groin dry, Leg cool to touch, skin ashy in color - Back Exam Back Exam: NORMAL INSPECTION Assessment and Plan - Assessment and Plan (Free Text) Assessment: (1) S/P aneurysm repair Assessment and Plan: -POD # 3 S/P emergent repair of ruptured right femoral artery pseudo-aneurysm with proximal ligatation and removal of femoral artery stent and patch; ruptured pseudo-aneurysm (possibly infected) on 11/27/[address] Lorenzo. -Plan for iliac popliteal "obdurator" bypass Saturday 12/[address] Lorenzo Vascular Surgeon, Dr Lorenzo is the Primary on the case Infectious Disease, Dr Herrera, consulted- help appreciated Right Groin Wound Culture 11/27/16 shows Gram Negative Rods and Gram Positive Cocci- sensitivities reviewed Blood Culture 11/27/16 shows no growth after 24 hours Pain control with Hydromorphone Vancomycin 1 gm IV Q12h (11/27/16) Cefepime 1 gm IV Q12H (11/27/16) Status: Acute (2) Elevated alkaline phosphatase level Assessment and Plan: Resolved Per chart review, patient with Hx Dilated CBD On prior admission patient was advised to follow up with outpatient elective cholecystectomy (3) STEVEN (acute kidney injury) Assessment and Plan: Resolved Possibly secondary to hypotension, hypotension responded well to NS bolus Will continue to monitor Status: Acute (4) Hyponatremia This has resolved Monitor (5) Acidosis likely Metabolic Could be secondary to recent surgery vs possible infected right femoral artery catheter which was removed vs compounded by the use of Glipizide for DM 2 Patient is on Vancomycin and Cefepime Glipizide has been discontinued This has resolved (6) Abdominal Bruit Abdominal Aorta U/S ordered on 11/27/16 was discontinued as patient had Abdominal Angiography performed on 10/21/16 and this did NOT show Abdominal Aneurysm. Please see full report for finding of Right Femoral Artery Pseudoaneurysm. (7) History of Diabetes Mellitus 2 Assessment and Plan: RISS - low dose Holding Glipizide because of the acidosis upon admission Continue home Insulin Regimen: Levemir 36 Units SC HS, Regular Insulin (Lispro not carried by our pharmacy) 10 Units SC ACB and 6 Units SC ACLD Continue Accuchecks ACHS Rosuvastatin 10mg PO HS Lisinopril 10mg PO daily Status: Chronic (8) History Hypertension Assessment and Plan: BP elevations noted Start Lisinopril 10mg PO daily on 11/30 Amlodipine 10mg PO 1x/day Metoprolol tartrate 25mg PO 2x/day was increased to 50 mg PO 2x/day with holding parameters 11/28/16 Continue to monitor q6h Status: Chronic (9) History of anemia Assessment and Plan: HgB/Hct are stable Ferrous Sulfate 325mg PO 2x/day Status: Chronic (10) History Chronic pancreatitis Assessment and Plan: Creon [id number] PO TID AC Meals not carried by our pharmacy therefore equilavent dose of Pacreaze Status: Chronic (11) History of depression Assessment and Plan: Duloxetine 40mg PO HS Mirtazapine 30mg PO HS Status: Chronic (12) History of BPH Assessment and Plan: Finasteride 5mg PO 1x/day Flomax 0.4 mg PO 1x/day Status: Chronic (13) History of Constipation Colace 100 mg PO TID Ordered fleet enema yday (14) Prophylactic measure Assessment and Plan: GI: pepcid 20mg PO q12h DVT: Anticoagulation/SCDs not indicated at this time due to recent surgery of LE /PVD Diet: Heart healthy, diabetic diet <SantanaKris Mary - Last Filed: 11/30/16 20:59> Objective - Vital Signs/Intake and Output Vital Signs (last 24 hours): Temp Pulse Resp BP Pulse Ox 97.8 F 70 18 135/62 99 11/30/16 17:03 11/30/16 17:03 11/30/16 17:03 11/30/16 17:03 11/30/16 17:03 - Medications Medications: Current Medications Amlodipine Besylate (Norvasc) 10 mg PO DAILY [facility] Last Admin: 11/30/16 10:28 Dose: 10 mg Dextrose (Dextrose 50% Inj) 0 ml IVP .STAT PRN; Protocol PRN Reason: Hypoglycemia Protocol Last Admin: 11/29/16 07:17 Dose: 50 ml Dextrose (Glutose 15) 0 gm PO .ONCE PRN; Protocol PRN Reason: Hypoglycemia Protocol Docusate Sodium (Colace) 100 mg PO TID [facility] Last Admin: 11/30/16 18:34 Dose: 100 mg Duloxetine HCl (Cymbalta) 40 mg PO HS [facility] Last Admin: 11/29/16 21:56 Dose: 40 mg Famotidine (Pepcid) 20 mg PO BID [facility] Last Admin: 11/30/16 18:36 Dose: 20 mg Ferrous Sulfate (Feosol) 325 mg PO BID [facility] Last Admin: 11/30/16 18:35 Dose: 325 mg Finasteride (Proscar) 5 mg PO DAILY [facility] Last Admin: 11/30/16 10:32 Dose: 5 mg Fluticasone Propionate (Flonase) 2 spr EMMA DAILY [facility] Last Admin: 11/30/16 10:53 Dose: Not Given Glucagon (Glucagen Diagnostic Kit) 0 mg IM .STAT PRN; Protocol PRN Reason: Hypoglycemia Protocol Heparin Sodium (Porcine) (Heparin) 5,000 units SC Q8 [facility] Last Admin: 11/30/16 05:42 Dose: 5,000 units Hydromorphone HCl (Dilaudid) 0.5 mg IVP Q3H PRN PRN Reason: Pain, severe (8-10) Hydromorphone HCl (Dilaudid) 1 mg IVP Q3H PRN PRN Reason: breakthrough pain Cefepime HCl (Maxipime Iv 1 Gm Premix) 1 gm in 50 mls @ 100 mls/hr IVPB Q12H [facility] Last Admin: 11/30/16 08:00 Dose: 100 mls/hr Vancomycin HCl (Vancocin 750mg/D5w 150 Ml) 150 mls @ 100 mls/hr IVPB Q12H [facility] Stop: 12/05/16 00:31 Insulin Detemir (Levemir) 36 unit SC HS [facility] Last Admin: 11/29/16 23:24 Dose: 36 unit Insulin Human Regular (Novolin R) 6 unit SC ACL [facility] Last Admin: 11/29/16 13:27 Dose: 6 unit Insulin Human Regular (Novolin R) 6 unit SC ACD [facility] Last Admin: 11/30/16 18:00 Dose: Not Given Insulin Human Regular (Novolin R) 10 unit SC ACB [facility] Last Admin: 11/30/16 10:37 Dose: 10 unit Lisinopril (Zestril) 10 mg PO DAILY [facility] Last Admin: 11/30/16 10:30 Dose: 10 mg Metoprolol Tartrate (Lopressor) 50 mg PO BID [facility] Last Admin: 11/30/16 18:35 Dose: 50 mg Mirtazapine (Remeron) 30 mg PO [facility] Last Admin: 11/29/16 21:57 Dose: 30 mg Morphine Sulfate (Morphine) 4 mg IVP Q4 PRN PRN Reason: Pain, moderate (4-7) Ondansetron HCl (Zofran Inj) 4 mg IVP Q6H PRN PRN Reason: Nausea/Vomiting Oxycodone/Acetaminophen (Percocet 5/325 Mg Tab) 1 tab PO Q4H PRN PRN Reason: Pain, Mild (1-3) Stop: 12/02/16 07:40 Last Admin: 11/29/16 08:14 Dose: 1 tab Rosuvastatin Calcium (Crestor) 10 mg PO QPM [facility] Last Admin: 11/29/16 21:15 Dose: 10 mg Tamsulosin HCl (Flomax) 0.4 mg PO DAILY [facility] Last Admin: 11/30/16 10:29 Dose: 0.4 mg - Labs Labs: 11/29/16 06:48 11/29/16 06:46 PT 13.1 SECONDS (9.7-12.2) H 11/27/16 06:28 INR 1.2 11/27/16 06:28 APTT 29 SECONDS (21-34) 11/27/16 06:28 Attending/Attestation - Attestation I have personally seen and examined this patient.: Yes I have fully participated in the care of the patient.: Yes I have reviewed all pertinent clinical information, including history, physical exam and plan: Yes Notes (Text): 11/30/16 20:53 Patient was seen and examined at 1:30 PM 11/30/16 671 B Exam, assessment and plan were thoroughly gone over with the resident. Physical Exam: - Constitutional Appears: Non-toxic, No Acute Distress - Head Exam Head Exam: NORMAL INSPECTION - Eye Exam Eye Exam: EOMI. PERRLA absent: Nystagmus, Scleral icterus, - ENT Exam ENT Exam: Mucous Membranes Moist, NO lymphadenopathy, NO thyromegaly, Mucous membranes are moist, NO pharyngeal erythema/exudate - Respiratory Exam Respiratory Exam: CTA B/L NO R/R/W - Cardiovascular Exam Cardiovascular Exam: HOLOSYTOLIC MURMUR. absent: JVD - GI/Abdominal Exam GI & Abdominal Exam: Soft, Normal Bowel Sounds, NO HSM, NO guarding, NO rebound tenderness. Midabdominal Bruit - Extremities Exam Extremities Exam: NO edema. Right Lower leg to foot are cool to the touch and dusky/pale appearance. Right LE pulses could not be palpated but confirmed with doppler by Nurse Deepak. Capillary refill of the Right LE is 4 to 5 seconds. Left LE is warm to the touch, normal color, capillary refill is 3 seconds - Neurological Exam Neurological Exam: Alert, Awake, Oriented x3. When asking patient questions he has a hard time recollecting information and states that this is normal for him - Psychiatric Exam Psychiatric exam: Normal Affect, Normal Mood - Skin Skin Exam: Dry, Intact, Normal Color, Warm Please note the following: Patient is for Right Fem-Pop bypass 12/02/[address] Lorenzo. Heparin 5,000 units SC Q8H for DVT prophylaxis and this will have to be put on HOLD before midnight on 12/01/16. Groin Wound Culture 11/27/16 shows E. coli and MRSA and the patient is on Cefepime and Vancomycin. Vanco Trough 19.3 and this is within range of 10 to 20 considering the MRSA found on groin wound culture. Next Vanco Trough ordered for 12:00 PM 12/01/16. Blood Culture 11/27/16 is negative to date at 48 hours. Vascular Surgery Team planning on Fem-Pop Bypass Right Leg for Thursday12/02/16 as long as the blood culture remains negative Lisinopril 10 mg PO 1x/day added 11/29/16 and this is controlling the blood pressure Medicine Team will continue to follow patient. Kris Santana D.O.
--- NOTE | 2016-11-30 16:47 | CP.PCM.PN ---
Subjective - Date & Time of Evaluation Date of Evaluation: 11/30/16 Time of Evaluation: 07:00 - Subjective Subjective: wound c/s noted afeb for OR tues Objective - Vital Signs/Intake and Output Vital Signs (last 24 hours): Temp Pulse Resp BP Pulse Ox 97.4 F L 83 18 132/75 96 11/30/16 07:35 11/30/16 07:35 11/30/16 07:35 11/30/16 07:35 11/30/16 07:35 Intake and Output: 11/30/16 11/30/16 06:59 18:59 Intake Total 600 Output Total 250 Balance 350 - Medications Medications: Current Medications Amlodipine Besylate (Norvasc) 10 mg PO DAILY [facility] Last Admin: 11/30/16 10:28 Dose: 10 mg Dextrose (Dextrose 50% Inj) 0 ml IVP .STAT PRN; Protocol PRN Reason: Hypoglycemia Protocol Last Admin: 11/29/16 07:17 Dose: 50 ml Dextrose (Glutose 15) 0 gm PO .ONCE PRN; Protocol PRN Reason: Hypoglycemia Protocol Docusate Sodium (Colace) 100 mg PO TID [facility] Last Admin: 11/30/16 10:28 Dose: 100 mg Duloxetine HCl (Cymbalta) 40 mg PO HS [facility] Last Admin: 11/29/16 21:56 Dose: 40 mg Famotidine (Pepcid) 20 mg PO BID [facility] Last Admin: 11/30/16 10:30 Dose: 20 mg Ferrous Sulfate (Feosol) 325 mg PO BID [facility] Last Admin: 11/30/16 10:29 Dose: 325 mg Finasteride (Proscar) 5 mg PO DAILY [facility] Last Admin: 11/30/16 10:32 Dose: 5 mg Fluticasone Propionate (Flonase) 2 spr EMMA DAILY [facility] Last Admin: 11/30/16 10:53 Dose: Not Given Glucagon (Glucagen Diagnostic Kit) 0 mg IM .STAT PRN; Protocol PRN Reason: Hypoglycemia Protocol Heparin Sodium (Porcine) (Heparin) 5,000 units SC Q8 [facility] Last Admin: 11/30/16 05:42 Dose: 5,000 units Hydromorphone HCl (Dilaudid) 1 mg IVP Q3H PRN PRN Reason: Pain, severe (8-10) Last Admin: 11/30/16 10:25 Dose: 1 mg Hydromorphone HCl (Dilaudid) 0.5 mg IVP Q3H PRN PRN Reason: Pain, moderate (4-7) Last Admin: 11/29/16 00:54 Dose: 0.5 mg Vancomycin HCl 1,000 mg/ (Sodium Chloride) 250 mls @ 166.6 mls/hr IVPB Q12H [facility] Last Admin: 11/30/16 00:17 Dose: 166.6 mls/hr Cefepime HCl (Maxipime Iv 1 Gm Premix) 1 gm in 50 mls @ 100 mls/hr IVPB Q12H [facility] Last Admin: 11/30/16 08:00 Dose: 100 mls/hr Insulin Detemir (Levemir) 36 unit SC HS [facility] Last Admin: 11/29/16 23:24 Dose: 36 unit Insulin Human Regular (Novolin R) 6 unit SC ACL [facility] Last Admin: 11/29/16 13:27 Dose: 6 unit Insulin Human Regular (Novolin R) 6 unit SC ACD [facility] Last Admin: 11/29/16 17:00 Dose: Not Given Insulin Human Regular (Novolin R) 10 unit SC ACB [facility] Last Admin: 11/30/16 10:37 Dose: 10 unit Lisinopril (Zestril) 10 mg PO DAILY [facility] Last Admin: 11/30/16 10:30 Dose: 10 mg Metoprolol Tartrate (Lopressor) 50 mg PO BID [facility] Last Admin: 11/30/16 10:52 Dose: 50 mg Mirtazapine (Remeron) 30 mg PO [facility] Last Admin: 11/29/16 21:57 Dose: 30 mg Ondansetron HCl (Zofran Inj) 4 mg IVP Q6H PRN PRN Reason: Nausea/Vomiting Oxycodone/Acetaminophen (Percocet 5/325 Mg Tab) 1 tab PO Q4H PRN PRN Reason: Pain, Mild (1-3) Stop: 12/02/16 07:40 Last Admin: 11/29/16 08:14 Dose: 1 tab Rosuvastatin Calcium (Crestor) 10 mg PO QPM [facility] Last Admin: 11/29/16 21:15 Dose: 10 mg Tamsulosin HCl (Flomax) 0.4 mg PO DAILY [facility] Last Admin: 11/30/16 10:29 Dose: 0.4 mg - Labs Labs: 11/29/16 06:48 11/29/16 06:46 PT 13.1 SECONDS (9.7-12.2) H 11/27/16 06:28 INR 1.2 11/27/16 06:28 APTT 29 SECONDS (21-34) 11/27/16 06:28 - Constitutional Appears: Non-toxic, Chronically Ill - Head Exam Head Exam: NORMOCEPHALIC - Eye Exam Eye Exam: PERRL. absent: Scleral icterus - ENT Exam ENT Exam: Mucous Membranes Dry, Normal External Ear Exam - Neck Exam Neck Exam: absent: Lymphadenopathy - Respiratory Exam Respiratory Exam: Decreased Breath Sounds - Cardiovascular Exam Cardiovascular Exam: REGULAR RHYTHM - GI/Abdominal Exam GI & Abdominal Exam: Distended, Soft - Rectal Exam Rectal Exam: Deferred - Exam Exam: NORMAL INSPECTION - Extremities Exam Extremities Exam: Pedal Edema, Tenderness - Back Exam Back Exam: absent: CVA tenderness (L), CVA tenderness (R) - Neurological Exam Neurological Exam: Alert, Awake, Oriented x3 - Psychiatric Exam Psychiatric exam: Depressed - Skin Skin Exam: Dry Assessment and Plan (1) Femoral artery aneurysm, right Status: Acute (2) H/O ruptured arterial aneurysm Status: Acute (3) S/P aneurysm repair Status: Acute - Assessment and Plan (Free Text) Assessment: plan right leg iliac popliteal "obdurator" bypass thursday for OR cont IV antibiotics
[2016-11-30] MEDS ORDERED: Vancomycin 750mg/D5W 150 ml 150 ML IVPB SCH (18:00)
[2016-11-30] MEDS ORDERED: HYDROmorphone 0.5 mg/0.5 ml ISec IVP PRN (19:01)
[2016-11-30] MEDS: Morphine 4 MG/ML VIAL IVP PRN (21:13)
[2016-11-30] MEDS: Saccharomyces Boulardi 250 mg Cap PO SCH (23:50)
[2016-11-30] MEDS: Insulin Detemir 100 units/ml Vial (Levemir) SC SCH (23:52)
[2016-12-01] MEDS: Vancomycin 750mg/D5W 150 ml 150 ML IVPB SCH ×2 (01:25→12:30)
[2016-12-01] MEDS: (Novolin R) Insulin Human Regular 100 units/ml vial SC SCH ×3 (07:30→17:30)
[2016-12-01 07:59] LABS: BASO % 0.8 % (0.0-2.0); EOS # 0.2 K/uL (0.0-0.7); EOS % 3.3 % (0.0-4.0); HEMATOCRIT 28.5 % (35.0-51.0); LYMPH # 0.9 K/uL (1.0-4.3); LYMPH % 15.6 % (20.0-40.0); MEAN CELL VOLUME 86.1 fL (80.0-94.0); MEAN CORPUSCULAR HEMOGLOBIN 28.9 pg (27.0-31.0); MEAN CORPUSCULAR HGB CONC 33.6 g/dL (33.0-37.0); MEAN PLATELET VOLUME 7.6 fL (7.2-11.7); MONO # 0.4 K/uL (0.0-0.8); MONO % 7.2 % (0.0-10.0); RED CELL DISTRIBUTION WIDTH 15.6 % (11.5-14.5); WHITE BLOOD COUNT 6.1 K/uL (4.8-10.8)
[2016-12-01] MEDS: Cefepime IV 1 gm in Dextrose 1 GM/50 ML BAG IVPB SCH ×2 (08:00→19:23)
[2016-12-01 08:16] LABS: CHLORIDE 99 mmol/L (98-107); POTASSIUM 4.9 mmol/L (3.6-5.2); SODIUM 132 mmol/L (132-148)
[2016-12-01 08:19] LABS: AST/SGOT 22 U/L (17-59); BILIRUBIN,TOTAL 0.5 mg/dL (0.2-1.3); BLOOD UREA NITROGEN 20 mg/dL (9-20); CARBON DIOXIDE 22 mmol/L (22-30); GFR AFRICAN-AMERICAN > 60
[2016-12-01 08:20] LABS: ALKALINE PHOSPHATASE 104 U/L (38-126); ALT/SGPT 27 U/L (21-72); CALCIUM 8.7 mg/dl (8.6-10.4); GLUCOSE,RANDOM 243 mg/dL (75-110)
--- NOTE | 2016-12-01 09:02 | CP.PCM.PN ---
Subjective - Date & Time of Evaluation Date of Evaluation: 12/01/16 Time of Evaluation: 07:00 - Subjective Subjective: VASCULAR SURGERY PROGRESS NOTE FOR DR. DENIS Patient seen and examined at bedside. Patient states that his right foot hurts as well as his right leg. He is able to move it some. He is tolerating his diet. Objective - Vital Signs/Intake and Output Vital Signs (last 24 hours): Temp Pulse Resp BP Pulse Ox 98.2 F 86 20 129/82 97 12/01/16 08:00 12/01/16 08:00 12/01/16 08:00 12/01/16 08:00 12/01/16 08:00 Intake and Output: 12/01/16 12/01/16 06:59 18:59 Intake Total 260 Output Total 1500 Balance -1240 - Medications Medications: Current Medications Amlodipine Besylate (Norvasc) 10 mg PO DAILY [facility] Last Admin: 11/30/16 10:28 Dose: 10 mg Dextrose (Dextrose 50% Inj) 0 ml IVP .STAT PRN; Protocol PRN Reason: Hypoglycemia Protocol Last Admin: 11/29/16 07:17 Dose: 50 ml Dextrose (Glutose 15) 0 gm PO .ONCE PRN; Protocol PRN Reason: Hypoglycemia Protocol Docusate Sodium (Colace) 100 mg PO TID [facility] Last Admin: 11/30/16 18:34 Dose: 100 mg Duloxetine HCl (Cymbalta) 40 mg PO HS [facility] Last Admin: 11/30/16 21:18 Dose: 40 mg Famotidine (Pepcid) 20 mg PO BID [facility] Last Admin: 11/30/16 18:36 Dose: 20 mg Ferrous Sulfate (Feosol) 325 mg PO BID [facility] Last Admin: 11/30/16 18:35 Dose: 325 mg Finasteride (Proscar) 5 mg PO DAILY [facility] Last Admin: 11/30/16 10:32 Dose: 5 mg Fluticasone Propionate (Flonase) 2 spr EMMA DAILY [facility] Last Admin: 11/30/16 10:53 Dose: Not Given Glucagon (Glucagen Diagnostic Kit) 0 mg IM .STAT PRN; Protocol PRN Reason: Hypoglycemia Protocol Heparin Sodium (Porcine) (Heparin) 5,000 units SC Q8 [facility] Last Admin: 12/01/16 05:44 Dose: 5,000 units Hydromorphone HCl (Dilaudid) 0.5 mg IVP Q3H PRN PRN Reason: Pain, severe (8-10) Hydromorphone HCl (Dilaudid) 1 mg IVP Q3H PRN PRN Reason: breakthrough pain Cefepime HCl (Maxipime Iv 1 Gm Premix) 1 gm in 50 mls @ 100 mls/hr IVPB Q12H [facility] Last Admin: 11/30/16 21:14 Dose: 100 mls/hr Vancomycin HCl (Vancocin 750mg/D5w 150 Ml) 150 mls @ 100 mls/hr IVPB Q12H [facility] Stop: 12/05/16 00:31 Last Admin: 12/01/16 01:25 Dose: 100 mls/hr Insulin Detemir (Levemir) 36 unit SC HS [facility] Last Admin: 11/30/16 23:52 Dose: Not Given Insulin Human Regular (Novolin R) 6 unit SC ACL [facility] Last Admin: 11/29/16 13:27 Dose: 6 unit Insulin Human Regular (Novolin R) 6 unit SC ACD [facility] Last Admin: 11/30/16 18:00 Dose: Not Given Insulin Human Regular (Novolin R) 10 unit SC ACB [facility] Last Admin: 11/30/16 10:37 Dose: 10 unit Lisinopril (Zestril) 10 mg PO DAILY [facility] Last Admin: 11/30/16 10:30 Dose: 10 mg Metoprolol Tartrate (Lopressor) 50 mg PO BID [facility] Last Admin: 11/30/16 18:35 Dose: 50 mg Mirtazapine (Remeron) 30 mg PO [facility] Last Admin: 11/30/16 21:16 Dose: 30 mg Morphine Sulfate (Morphine) 4 mg IVP Q4 PRN PRN Reason: Pain, moderate (4-7) Last Admin: 11/30/16 21:13 Dose: 4 mg Ondansetron HCl (Zofran Inj) 4 mg IVP Q6H PRN PRN Reason: Nausea/Vomiting Oxycodone/Acetaminophen (Percocet 5/325 Mg Tab) 1 tab PO Q4H PRN PRN Reason: Pain, Mild (1-3) Stop: 12/02/16 07:40 Last Admin: 11/29/16 08:14 Dose: 1 tab Rosuvastatin Calcium (Crestor) 10 mg PO QPM [facility] Last Admin: 11/30/16 21:18 Dose: 10 mg Saccharomyces Boulardii (Florastor) 250 mg PO BID [facility] Last Admin: 11/30/16 23:50 Dose: 250 mg Tamsulosin HCl (Flomax) 0.4 mg PO DAILY [facility] Last Admin: 11/30/16 10:29 Dose: 0.4 mg - Labs Labs: 12/01/16 07:51 12/01/16 07:51 PT 11.2 SECONDS (9.7-12.2) 12/01/16 07:51 INR 1.0 12/01/16 07:51 APTT 41 SECONDS (21-34) H 12/01/16 07:51 - Constitutional Appears: Non-toxic, No Acute Distress - Head Exam Head Exam: ATRAUMATIC, NORMAL INSPECTION - Eye Exam Eye Exam: EOMI, Normal appearance - Respiratory Exam Respiratory Exam: NORMAL BREATHING PATTERN. absent: Respiratory Distress - Cardiovascular Exam Cardiovascular Exam: +S1, +S2 - GI/Abdominal Exam GI & Abdominal Exam: Soft. absent: Distended, Firm - Extremities Exam Additional comments: + Right DP pulse Right groin dressing with some serosanguinous drainage - changed Right foot cooler than left - Neurological Exam Neurological Exam: Alert, Awake, Oriented x3 - Psychiatric Exam Psychiatric exam: Normal Affect, Normal Mood - Skin Skin Exam: Dry, Normal Color, Warm Assessment and Plan - Assessment and Plan (Free Text) Assessment: 70yo M with ruptured infected right femoral artery pseudo-aneurysm s/p emergent repair of ruptured right femoral artery pseudo-aneurysm with proximal ligatation and removal of femoral artery stent and patch POD#4 - Afebrile, VSS - Blood cx negative @ 3 days - OR tomorrow for iliac popliteal "obturator" bypass - NPO past midnight - Heparin held - Type and cross - Discussed plan with Dr. Maura Mckeon PGY-3
[2016-12-01] MEDS: Fluticasone Nasal 50 mcg/Spray NAS SCH (10:00)
[2016-12-01] MEDS: LIPASE/PROTEASE/AMYLASE 4,200 U ECC PO SCH ×3 (10:00→18:20)
[2016-12-01] MEDS: Saccharomyces Boulardi 250 mg Cap PO SCH ×2 (12:15→19:00)
--- NOTE | 2016-12-01 15:42 | CP.PCM.PN ---
<Wyatt Alamo - Last Filed: 12/01/16 19:32> Subjective - Date & Time of Evaluation Date of Evaluation: 12/01/16 Time of Evaluation: 10:10 - Subjective Subjective: Medicine progress note for Dr. Wong Patient seen and examined. Patient complaining of intermittent chills and states that his right foot feels colder to the touch than yesterday. Patient is POD #4 emergent repair of ruptured right femoral artery pseudo-aneurysm with proximal ligatation and removal of femoral artery stent. Patient denies fever, chest pain, dyspnea, abdominal pain, dysuria. Patient is for right iliac popliteal-obturator bypass in the AM. Objective - Vital Signs/Intake and Output Vital Signs (last 24 hours): Temp Pulse Resp BP Pulse Ox 98.2 F 86 20 129/82 97 12/01/16 08:00 12/01/16 08:00 12/01/16 08:00 12/01/16 08:00 12/01/16 08:00 Intake and Output: 12/01/16 12/01/16 06:59 18:59 Intake Total 260 Output Total 1500 Balance -1240 - Medications Medications: Current Medications Amlodipine Besylate (Norvasc) 10 mg PO DAILY [facility] Last Admin: 12/01/16 12:08 Dose: 10 mg Dextrose (Dextrose 50% Inj) 0 ml IVP .STAT PRN; Protocol PRN Reason: Hypoglycemia Protocol Last Admin: 11/29/16 07:17 Dose: 50 ml Dextrose (Glutose 15) 0 gm PO .ONCE PRN; Protocol PRN Reason: Hypoglycemia Protocol Docusate Sodium (Colace) 100 mg PO TID [facility] Last Admin: 12/01/16 13:29 Dose: 100 mg Duloxetine HCl (Cymbalta) 40 mg PO HS [facility] Last Admin: 11/30/16 21:18 Dose: 40 mg Famotidine (Pepcid) 20 mg PO BID [facility] Last Admin: 12/01/16 12:08 Dose: 20 mg Ferrous Sulfate (Feosol) 325 mg PO BID [facility] Last Admin: 12/01/16 12:17 Dose: 325 mg Finasteride (Proscar) 5 mg PO DAILY [facility] Last Admin: 12/01/16 12:08 Dose: 5 mg Fluticasone Propionate (Flonase) 2 spr EMMA DAILY [facility] Last Admin: 12/01/16 10:00 Dose: Not Given Glucagon (Glucagen Diagnostic Kit) 0 mg IM .STAT PRN; Protocol PRN Reason: Hypoglycemia Protocol Heparin Sodium (Porcine) (Heparin) 5,000 units SC Q8 [facility] Last Admin: 12/01/16 13:30 Dose: 5,000 units Hydromorphone HCl (Dilaudid) 0.5 mg IVP Q3H PRN PRN Reason: Pain, severe (8-10) Last Admin: 12/01/16 13:42 Dose: 0.5 mg Hydromorphone HCl (Dilaudid) 1 mg IVP Q3H PRN PRN Reason: breakthrough pain Cefepime HCl (Maxipime Iv 1 Gm Premix) 1 gm in 50 mls @ 100 mls/hr IVPB Q12H [facility] Last Admin: 12/01/16 08:00 Dose: 100 mls/hr Vancomycin HCl (Vancocin 750mg/D5w 150 Ml) 150 mls @ 100 mls/hr IVPB Q12H [facility] Stop: 12/05/16 00:31 Last Admin: 12/01/16 12:30 Dose: 100 mls/hr Insulin Detemir (Levemir) 36 unit SC HS [facility] Last Admin: 11/30/16 23:52 Dose: Not Given Insulin Human Regular (Novolin R) 6 unit SC ACL [facility] Last Admin: 12/01/16 12:24 Dose: 6 unit Insulin Human Regular (Novolin R) 6 unit SC ACD [facility] Last Admin: 11/30/16 18:00 Dose: Not Given Insulin Human Regular (Novolin R) 10 unit SC ACB [facility] Last Admin: 12/01/16 07:30 Dose: Not Given Lisinopril (Zestril) 10 mg PO DAILY [facility] Last Admin: 12/01/16 12:08 Dose: 10 mg Metoprolol Tartrate (Lopressor) 50 mg PO BID [facility] Last Admin: 12/01/16 12:19 Dose: 50 mg Mirtazapine (Remeron) 30 mg PO HS [facility] Last Admin: 11/30/16 21:16 Dose: 30 mg Morphine Sulfate (Morphine) 4 mg IVP Q4 PRN PRN Reason: Pain, moderate (4-7) Last Admin: 11/30/16 21:13 Dose: 4 mg Ondansetron HCl (Zofran Inj) 4 mg IVP Q6H PRN PRN Reason: Nausea/Vomiting Oxycodone/Acetaminophen (Percocet 5/325 Mg Tab) 1 tab PO Q4H PRN PRN Reason: Pain, Mild (1-3) Stop: 12/02/16 07:40 Last Admin: 11/29/16 08:14 Dose: 1 tab Rosuvastatin Calcium (Crestor) 10 mg PO QPM [facility] Last Admin: 11/30/16 21:18 Dose: 10 mg Saccharomyces Boulardii (Florastor) 250 mg PO BID [facility] Last Admin: 12/01/16 12:15 Dose: 250 mg Tamsulosin HCl (Flomax) 0.4 mg PO DAILY [facility] Last Admin: 12/01/16 12:08 Dose: 0.4 mg - Labs Labs: 12/01/16 07:51 12/01/16 07:51 PT 11.2 SECONDS (9.7-12.2) 12/01/16 07:51 INR 1.0 12/01/16 07:51 APTT 41 SECONDS (21-34) H 12/01/16 07:51 - Constitutional Appears: No Acute Distress - Head Exam Head Exam: ATRAUMATIC, NORMOCEPHALIC - Eye Exam Eye Exam: EOMI, Normal appearance - ENT Exam ENT Exam: Mucous Membranes Moist - Respiratory Exam Respiratory Exam: Clear to Ausculation Bilateral. absent: Rales, Rhonchi, Wheezes - Cardiovascular Exam Cardiovascular Exam: REGULAR RHYTHM, +S1, +S2 - GI/Abdominal Exam GI & Abdominal Exam: Soft, Normal Bowel Sounds. absent: Distended, Tenderness - Extremities Exam Additional comments: Right leg cooler than left with a mild ashy discoloration, but distal pulse was palpated. Right leg was not cold to the touch. - Neurological Exam Neurological Exam: Alert, Awake, Oriented x3 - Psychiatric Exam Psychiatric exam: Normal Affect, Normal Mood - Skin Skin Exam: Dry Assessment and Plan - Assessment and Plan (Free Text) Plan: (1) S/P aneurysm repair Assessment and Plan: -POD # 4 S/P emergent repair of ruptured right femoral artery pseudo-aneurysm with proximal ligatation and removal of femoral artery stent and patch; ruptured pseudo-aneurysm (possibly infected) on 11/27/[address] Lorenzo. -Plan for iliac popliteal "obdurator" bypass Saturday 12/[address] Lorenzo Vascular Surgeon, Dr Lorenzo is the Primary on the case Infectious Disease, Dr Herrera, consulted- help appreciated Right Groin Wound Culture 11/27/16 shows Gram Negative Rods and Gram Positive Cocci- sensitivities reviewed Blood Culture 11/27/16 shows no growth after 24 hours Pain control per surgery with Hydromorphone Vancomycin 1 gm IV Q12h (started 11/27/16) Cefepime 1 gm IV Q12H (started 11/27/16) Status: Acute (2) Elevated alkaline phosphatase level Assessment and Plan: Resolved Per chart review, patient with Hx Dilated CBD On prior admission patient was advised to follow up with outpatient elective cholecystectomy (3) STEVEN (acute kidney injury) Assessment and Plan: Resolved Possibly secondary to hypotension, hypotension responded well to NS bolus Will continue to monitor Status: Acute (4) Hyponatremia This has resolved Monitor (5) Acidosis likely Metabolic Could be secondary to recent surgery vs possible infected right femoral artery catheter which was removed vs compounded by the use of Glipizide for DM 2 Patient is on Vancomycin and Cefepime Glipizide has been discontinued This has resolved (6) Abdominal Bruit Abdominal Aorta U/S ordered on 11/27/16 was discontinued as patient had Abdominal Angiography performed on 10/21/16 and this did NOT show Abdominal Aneurysm. Please see full report for finding of Right Femoral Artery Pseudoaneurysm. (7) History of Diabetes Mellitus 2 Assessment and Plan: RISS - low dose Holding Glipizide because of the acidosis upon admission Continue home Insulin Regimen: Levemir 36 Units SC HS, Regular Insulin (Lispro not carried by our pharmacy) 10 Units SC ACB and 6 Units SC ACLD Continue Accuchecks ACHS Rosuvastatin 10mg PO HS Lisinopril 10mg PO daily Status: Chronic (8) History Hypertension Assessment and Plan: BP elevations noted Start Lisinopril 10mg PO daily on 11/30 Amlodipine 10mg PO 1x/day Metoprolol tartrate 25mg PO 2x/day was increased to 50 mg PO 2x/day with holding parameters 11/28/16 Continue to monitor q6h Status: Chronic (9) History of anemia Assessment and Plan: HgB/Hct are stable Ferrous Sulfate 325mg PO 2x/day Status: Chronic (10) History Chronic pancreatitis Assessment and Plan: Creon [id number] PO TID AC Meals not carried by our pharmacy therefore equilavent dose of Pacreaze Status: Chronic (11) History of depression Assessment and Plan: Duloxetine 40mg PO HS Mirtazapine 30mg PO HS Status: Chronic (12) History of BPH Assessment and Plan: Finasteride 5mg PO 1x/day Flomax 0.4 mg PO 1x/day Status: Chronic (13) History of Constipation Colace 100 mg PO TID Ordered fleet enema over the past weekend (14) Prophylactic measure Assessment and Plan: GI: pepcid 20mg PO q12h DVT: Anticoagulation/SCDs not indicated at this time due to recent surgery of LE /PVD Diet: Heart healthy, diabetic diet Case DW Dr. Marvin Alamo PGY-1 <Agnes Wong V - Last Filed: 12/01/16 20:32> Objective - Vital Signs/Intake and Output Vital Signs (last 24 hours): Temp Pulse Resp BP Pulse Ox 97.4 F L 61 18 146/73 100 12/01/16 16:00 12/01/16 16:00 12/01/16 16:00 12/01/16 16:00 12/01/16 16:00 - Medications Medications: Current Medications Amlodipine Besylate (Norvasc) 10 mg PO DAILY [facility] Last Admin: 12/01/16 12:08 Dose: 10 mg Dextrose (Dextrose 50% Inj) 0 ml IVP .STAT PRN; Protocol PRN Reason: Hypoglycemia Protocol Last Admin: 11/29/16 07:17 Dose: 50 ml Dextrose (Glutose 15) 0 gm PO .ONCE PRN; Protocol PRN Reason: Hypoglycemia Protocol Docusate Sodium (Colace) 100 mg PO TID [facility] Last Admin: 12/01/16 18:11 Dose: Not Given Duloxetine HCl (Cymbalta) 40 mg PO HS [facility] Last Admin: 11/30/16 21:18 Dose: 40 mg Famotidine (Pepcid) 20 mg PO BID [facility] Last Admin: 12/01/16 18:11 Dose: 20 mg Ferrous Sulfate (Feosol) 325 mg PO BID [facility] Last Admin: 12/01/16 18:12 Dose: 325 mg Finasteride (Proscar) 5 mg PO DAILY [facility] Last Admin: 12/01/16 12:08 Dose: 5 mg Fluticasone Propionate (Flonase) 2 spr EMMA DAILY [facility] Last Admin: 12/01/16 10:00 Dose: Not Given Glucagon (Glucagen Diagnostic Kit) 0 mg IM .STAT PRN; Protocol PRN Reason: Hypoglycemia Protocol Heparin Sodium (Porcine) (Heparin) 5,000 units SC Q8 [facility] Last Admin: 12/01/16 13:30 Dose: 5,000 units Hydromorphone HCl (Dilaudid) 0.5 mg IVP Q3H PRN PRN Reason: Pain, severe (8-10) Last Admin: 12/01/16 13:42 Dose: 0.5 mg Hydromorphone HCl (Dilaudid) 1 mg IVP Q3H PRN PRN Reason: breakthrough pain Cefepime HCl (Maxipime Iv 1 Gm Premix) 1 gm in 50 mls @ 100 mls/hr IVPB Q12H [facility] Last Admin: 12/01/16 19:23 Dose: 100 mls/hr Vancomycin HCl (Vancocin 750mg/D5w 150 Ml) 150 mls @ 100 mls/hr IVPB Q12H [facility] Stop: 12/05/16 00:31 Last Admin: 12/01/16 12:30 Dose: 100 mls/hr Insulin Detemir (Levemir) 18 unit SC HS [facility] Insulin Human Regular (Novolin R) 6 unit SC ACL [facility] Last Admin: 12/01/16 12:24 Dose: 6 unit Insulin Human Regular (Novolin R) 6 unit SC ACD [facility] Last Admin: 12/01/16 17:30 Dose: 6 unit Insulin Human Regular (Novolin R) 10 unit SC ACB [facility] Last Admin: 12/01/16 07:30 Dose: Not Given Lisinopril (Zestril) 10 mg PO DAILY [facility] Last Admin: 12/01/16 12:08 Dose: 10 mg Metoprolol Tartrate (Lopressor) 50 mg PO BID [facility] Last Admin: 12/01/16 12:19 Dose: 50 mg Mirtazapine (Remeron) 30 mg PO HS [facility] Last Admin: 11/30/16 21:16 Dose: 30 mg Morphine Sulfate (Morphine) 4 mg IVP Q4 PRN PRN Reason: Pain, moderate (4-7) Last Admin: 12/01/16 18:23 Dose: 4 mg Ondansetron HCl (Zofran Inj) 4 mg IVP Q6H PRN PRN Reason: Nausea/Vomiting Oxycodone/Acetaminophen (Percocet 5/325 Mg Tab) 1 tab PO Q4H PRN PRN Reason: Pain, Mild (1-3) Stop: 12/02/16 07:40 Last Admin: 11/29/16 08:14 Dose: 1 tab Rosuvastatin Calcium (Crestor) 10 mg PO QPM [facility] Last Admin: 11/30/16 21:18 Dose: 10 mg Saccharomyces Boulardii (Florastor) 250 mg PO BID [facility] Last Admin: 12/01/16 12:15 Dose: 250 mg Tamsulosin HCl (Flomax) 0.4 mg PO DAILY [facility] Last Admin: 12/01/16 12:08 Dose: 0.4 mg - Labs Labs: 12/01/16 07:51 12/01/16 07:51 PT 11.2 SECONDS (9.7-12.2) 12/01/16 07:51 INR 1.0 12/01/16 07:51 APTT 41 SECONDS (21-34) H 12/01/16 07:51 Attending/Attestation - Attestation I have personally seen and examined this patient.: Yes I have fully participated in the care of the patient.: Yes I have reviewed all pertinent clinical information, including history, physical exam and plan: Yes Notes (Text): Patient seen, examined and case discussed with day-time resident. Patient seen this afternoon. Patient is aware he is going for OR tomorrow. Discussed with PM NurseCandis Vancomycin trough was not collected. Ordered for vanco trough tomorrow. Vancomycin dose adjusted per ID. Patient to receive 1/2 dose of Lantus tonight in preparation for OR tomorrow. Patient to resume full dose Lantus (36 units) post OR. Patient is inconsistent with his sugars, allowing for insulin sometimes or taking extra snacks per discussion with nursing. Patient is currently on contact isolation for MRSA in wound culture. Infectious Disease on board. Medicine Consult Assessment/Plan (1) S/P aneurysm repair Assessment and Plan: -POD # 4 S/P emergent repair of ruptured right femoral artery pseudo-aneurysm with proximal ligatation and removal of femoral artery stent and patch; ruptured pseudo-aneurysm (possibly infected) on 11/27/[address] Lorenzo. -Plan for iliac popliteal "obdurator" bypass Saturday 12/[address] Lorenzo Vascular Surgeon, Dr Lorenzo is the Primary on the case Infectious Disease, Dr Herrera, consulted- help appreciated * Right Groin Wound Culture 11/27/16-->E . Coli and MRSA * Wound culture: 11/27/16-->E. Coli * Blood Culture 11/27/16 shows no growth 4 days X2 * Pain control with Hydromorphone * Vancomycin 750 gm IV Q12h (12/01/16)--->vancomycin trough ordered for tomorrow * Cefepime 1 gm IV Q12H (11/27/16) Status: Acute (2) Elevated alkaline phosphatase level Assessment and Plan: * Resolved * Per chart review, patient with Hx Dilated CBD * On prior admission patient was advised to follow up with outpatient elective cholecystectomy (3) STEVEN (acute kidney injury) Assessment and Plan: * Resolved * Possibly secondary to hypotension, hypotension responded well to NS bolus * Will continue to monitor Status: Acute (4) Hyponatremia * This has resolved * Monitor (5) Acidosis likely Metabolic * Could be secondary to recent surgery vs possible infected right femoral artery catheter which was removed vs compounded by the use of Glipizide for DM 2 * Patient is on Vancomycin and Cefepime * Glipizide has been discontinued * This has resolved (6) Abdominal Bruit * Abdominal Aorta U/S ordered on 11/27/16 was discontinued as patient had Abdominal Angiography performed on 10/21/16 and this did NOT show Abdominal Aneurysm. Please see full report for finding of Right Femoral Artery Pseudoaneurysm. (7) History of Diabetes Mellitus 2 Assessment and Plan: * RISS - low dose * Holding Glipizide because of the acidosis upon admission * Continue home Insulin Regimen: * Levemir 36 Units SC HS--->to give 1/2 dose tonight prior to OR (18 units subHS) and resume full dose post OR, Regular Insulin (Lispro not carried by our pharmacy) 10 Units SC ACB and 6 Units SC ACLD * Continue Accuchecks ACHS * Rosuvastatin 10mg PO HS * Lisinopril 10mg PO daily Status: Chronic (8) History Hypertension Assessment and Plan: * BP elevations noted * Start Lisinopril 10mg PO daily on 11/30 * Amlodipine 10mg PO 1x/day * Metoprolol tartrate 25mg PO 2x/day was increased to 50 mg PO 2x/day with holding parameters 11/28/16 * Continue to monitor q6h Status: Chronic (9) History of anemia Assessment and Plan: * HgB/Hct are stable * Ferrous Sulfate 325mg PO 2x/day Status: Chronic (10) History Chronic pancreatitis Assessment and Plan: * Creon [id number] PO TID AC Meals not carried by our pharmacy therefore equilavent dose of Pacreaze Status: Chronic (11) History of depression Assessment and Plan: * Duloxetine 40mg PO HS * Mirtazapine 30mg PO HS Status: Chronic (12) History of BPH Assessment and Plan: * Finasteride 5mg PO 1x/day * Flomax 0.4 mg PO 1x/day Status: Chronic (13) History of Constipation * Colace 100 mg PO TID * Monitor bowel movement (14) Prophylactic measure Assessment and Plan: GI: pepcid 20mg PO q12h DVT: Anticoagulation/SCDs not indicated at this time due to recent surgery of LE /PVD Diet: Heart healthy, diabetic diet
--- NOTE | 2016-12-01 16:30 | CP.PCM.PN ---
Subjective - Date & Time of Evaluation Date of Evaluation: 12/01/16 Time of Evaluation: 08:00 - Subjective Subjective: e coli and mrsa from wound for OR in am Objective - Vital Signs/Intake and Output Vital Signs (last 24 hours): Temp Pulse Resp BP Pulse Ox 97.4 F L 61 18 146/73 100 12/01/16 16:00 12/01/16 16:00 12/01/16 16:00 12/01/16 16:00 12/01/16 16:00 Intake and Output: 12/01/16 12/01/16 06:59 18:59 Intake Total 260 Output Total 1500 Balance -1240 - Medications Medications: Current Medications Amlodipine Besylate (Norvasc) 10 mg PO DAILY [facility] Last Admin: 12/01/16 12:08 Dose: 10 mg Dextrose (Dextrose 50% Inj) 0 ml IVP .STAT PRN; Protocol PRN Reason: Hypoglycemia Protocol Last Admin: 11/29/16 07:17 Dose: 50 ml Dextrose (Glutose 15) 0 gm PO .ONCE PRN; Protocol PRN Reason: Hypoglycemia Protocol Docusate Sodium (Colace) 100 mg PO TID [facility] Last Admin: 12/01/16 13:29 Dose: 100 mg Duloxetine HCl (Cymbalta) 40 mg PO HS [facility] Last Admin: 11/30/16 21:18 Dose: 40 mg Famotidine (Pepcid) 20 mg PO BID [facility] Last Admin: 12/01/16 12:08 Dose: 20 mg Ferrous Sulfate (Feosol) 325 mg PO BID [facility] Last Admin: 12/01/16 12:17 Dose: 325 mg Finasteride (Proscar) 5 mg PO DAILY [facility] Last Admin: 12/01/16 12:08 Dose: 5 mg Fluticasone Propionate (Flonase) 2 spr EMMA DAILY [facility] Last Admin: 12/01/16 10:00 Dose: Not Given Glucagon (Glucagen Diagnostic Kit) 0 mg IM .STAT PRN; Protocol PRN Reason: Hypoglycemia Protocol Heparin Sodium (Porcine) (Heparin) 5,000 units SC Q8 [facility] Last Admin: 12/01/16 13:30 Dose: 5,000 units Hydromorphone HCl (Dilaudid) 0.5 mg IVP Q3H PRN PRN Reason: Pain, severe (8-10) Last Admin: 12/01/16 13:42 Dose: 0.5 mg Hydromorphone HCl (Dilaudid) 1 mg IVP Q3H PRN PRN Reason: breakthrough pain Cefepime HCl (Maxipime Iv 1 Gm Premix) 1 gm in 50 mls @ 100 mls/hr IVPB Q12H [facility] Last Admin: 12/01/16 08:00 Dose: 100 mls/hr Vancomycin HCl (Vancocin 750mg/D5w 150 Ml) 150 mls @ 100 mls/hr IVPB Q12H [facility] Stop: 12/05/16 00:31 Last Admin: 12/01/16 12:30 Dose: 100 mls/hr Insulin Detemir (Levemir) 36 unit SC HS [facility] Last Admin: 11/30/16 23:52 Dose: Not Given Insulin Human Regular (Novolin R) 6 unit SC ACL [facility] Last Admin: 12/01/16 12:24 Dose: 6 unit Insulin Human Regular (Novolin R) 6 unit SC ACD [facility] Last Admin: 11/30/16 18:00 Dose: Not Given Insulin Human Regular (Novolin R) 10 unit SC ACB [facility] Last Admin: 12/01/16 07:30 Dose: Not Given Lisinopril (Zestril) 10 mg PO DAILY [facility] Last Admin: 12/01/16 12:08 Dose: 10 mg Metoprolol Tartrate (Lopressor) 50 mg PO BID [facility] Last Admin: 12/01/16 12:19 Dose: 50 mg Mirtazapine (Remeron) 30 mg PO [facility] Last Admin: 11/30/16 21:16 Dose: 30 mg Morphine Sulfate (Morphine) 4 mg IVP Q4 PRN PRN Reason: Pain, moderate (4-7) Last Admin: 11/30/16 21:13 Dose: 4 mg Ondansetron HCl (Zofran Inj) 4 mg IVP Q6H PRN PRN Reason: Nausea/Vomiting Oxycodone/Acetaminophen (Percocet 5/325 Mg Tab) 1 tab PO Q4H PRN PRN Reason: Pain, Mild (1-3) Stop: 12/02/16 07:40 Last Admin: 11/29/16 08:14 Dose: 1 tab Rosuvastatin Calcium (Crestor) 10 mg PO QPM [facility] Last Admin: 11/30/16 21:18 Dose: 10 mg Saccharomyces Boulardii (Florastor) 250 mg PO BID [facility] Last Admin: 12/01/16 12:15 Dose: 250 mg Tamsulosin HCl (Flomax) 0.4 mg PO DAILY [facility] Last Admin: 12/01/16 12:08 Dose: 0.4 mg - Labs Labs: 12/01/16 07:51 12/01/16 07:51 PT 11.2 SECONDS (9.7-12.2) 12/01/16 07:51 INR 1.0 12/01/16 07:51 APTT 41 SECONDS (21-34) H 12/01/16 07:51 - Constitutional Appears: Non-toxic, Chronically Ill - Head Exam Head Exam: NORMOCEPHALIC - Eye Exam Eye Exam: absent: Scleral icterus - ENT Exam ENT Exam: Mucous Membranes Dry - Neck Exam Neck Exam: absent: Lymphadenopathy - Respiratory Exam Respiratory Exam: Decreased Breath Sounds - Cardiovascular Exam Cardiovascular Exam: REGULAR RHYTHM - GI/Abdominal Exam GI & Abdominal Exam: Distended, Soft - Rectal Exam Rectal Exam: Deferred Assessment and Plan (1) Femoral artery aneurysm, right Status: Acute (2) H/O ruptured arterial aneurysm Status: Acute (3) S/P aneurysm repair Status: Acute - Assessment and Plan (Free Text) Assessment[facility]
[2016-12-01] MEDS: Morphine 4 MG/ML VIAL IVP PRN (18:23)
[2016-12-01] MEDS ORDERED: Oxycodone/Acetaminophen 5/325 mg Tab PO ONE (22:48)
[2016-12-01] MEDS: Insulin Detemir 100 units/ml Vial (Levemir) SC SCH (22:59)
[2016-12-02] MEDS: Vancomycin 750mg/D5W 150 ml 150 ML IVPB SCH (00:58)
[2016-12-02] MEDS: Oxycodone/Acetaminophen 5/325 mg Tab PO PRN (03:03)
[2016-12-02] MEDS: (Novolin R) Insulin Human Regular 100 units/ml vial SC SCH ×2 (07:30→22:58)
[2016-12-02] MEDS: Cefepime IV 1 gm in Dextrose 1 GM/50 ML BAG IVPB SCH ×2 (08:00→21:00)
[2016-12-02 08:23] LABS: BASO # 0.1 K/uL (0.0-0.2); BASO % 0.9 % (0.0-2.0); EOS # 0.3 K/uL (0.0-0.7); HEMATOCRIT 29.6 % (35.0-51.0); LYMPH # 0.8 K/uL (1.0-4.3); LYMPH % 10.1 % (20.0-40.0); MEAN CELL VOLUME 84.3 fL (80.0-94.0); MEAN CORPUSCULAR HEMOGLOBIN 29.1 pg (27.0-31.0); MEAN CORPUSCULAR HGB CONC 34.5 g/dL (33.0-37.0); MEAN PLATELET VOLUME 7.7 fL (7.2-11.7); MONO # 0.7 K/uL (0.0-0.8); MONO % 7.9 % (0.0-10.0); NRBC % 0.1 % (0.0-2.0); RED CELL DISTRIBUTION WIDTH 16.1 % (11.5-14.5); WHITE BLOOD COUNT 8.4 K/uL (4.8-10.8)
[2016-12-02 08:36] LABS: CHLORIDE 98 mmol/L (98-107)
[2016-12-02 08:37] LABS: POTASSIUM 4.1 mmol/L (3.6-5.2); SODIUM 133 mmol/L (132-148)
[2016-12-02 08:39] LABS: BILIRUBIN,TOTAL 0.5 mg/dL (0.2-1.3); CARBON DIOXIDE 19 mmol/L (22-30); GFR AFRICAN-AMERICAN > 60; TOTAL PROTEIN 7.8 g/dL (6.3-8.3)
[2016-12-02 08:40] LABS: ALKALINE PHOSPHATASE 123 U/L (38-126); ALT/SGPT 22 U/L (21-72); AST/SGOT 19 U/L (17-59); BLOOD UREA NITROGEN 20 mg/dL (9-20); CALCIUM 9.2 mg/dl (8.6-10.4); GLUCOSE,RANDOM 177 mg/dL (75-110)
--- NOTE | 2016-12-02 10:40 | CP.PCM.PN ---
<Wyatt Alamo - Last Filed: 12/02/16 18:22> Subjective - Date & Time of Evaluation Date of Evaluation: 12/02/16 Time of Evaluation: 07:00 - Subjective Subjective: Medicine progress note for Dr. Wong Patient seen and examined. Patient states that he feels fine this morning. 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 Patient denies fever, chest pain, dyspnea, abdominal pain, dysuria. Patient is for right iliac popliteal-obturator bypass later this morning. Objective - Vital Signs/Intake and Output Vital Signs (last 24 hours): Temp Pulse Resp BP Pulse Ox 97.3 F L 50 L 20 171/73 H 96 12/02/16 08:29 12/02/16 08:29 12/02/16 08:29 12/02/16 08:29 12/02/16 08:29 Intake and Output: 12/02/16 12/02/16 06:59 18:59 Intake Total 710 Output Total 1900 Balance -1190 - Medications Medications: Current Medications Amlodipine Besylate (Norvasc) 10 mg PO DAILY [facility] Last Admin: 12/01/16 12:08 Dose: 10 mg Dextrose (Dextrose 50% Inj) 0 ml IVP .STAT PRN; Protocol PRN Reason: Hypoglycemia Protocol Last Admin: 11/29/16 07:17 Dose: 50 ml Dextrose (Glutose 15) 0 gm PO .ONCE PRN; Protocol PRN Reason: Hypoglycemia Protocol Docusate Sodium (Colace) 100 mg PO TID [facility] Last Admin: 12/01/16 18:11 Dose: Not Given Duloxetine HCl (Cymbalta) 40 mg PO HS [facility] Last Admin: 12/01/16 22:31 Dose: 40 mg Famotidine (Pepcid) 20 mg PO BID [facility] Last Admin: 12/01/16 18:11 Dose: 20 mg Ferrous Sulfate (Feosol) 325 mg PO BID [facility] Last Admin: 12/01/16 18:12 Dose: 325 mg Finasteride (Proscar) 5 mg PO DAILY [facility] Last Admin: 12/01/16 12:08 Dose: 5 mg Fluticasone Propionate (Flonase) 2 spr EMMA DAILY [facility] Last Admin: 12/01/16 10:00 Dose: Not Given Glucagon (Glucagen Diagnostic Kit) 0 mg IM .STAT PRN; Protocol PRN Reason: Hypoglycemia Protocol Heparin Sodium (Porcine) (Heparin) 5,000 units SC Q8 [facility] Last Admin: 12/01/16 23:00 Dose: Not Given Hydromorphone HCl (Dilaudid) 0.5 mg IVP Q3H PRN PRN Reason: Pain, severe (8-10) Last Admin: 12/01/16 13:42 Dose: 0.5 mg Hydromorphone HCl (Dilaudid) 1 mg IVP Q3H PRN PRN Reason: breakthrough pain Cefepime HCl (Maxipime Iv 1 Gm Premix) 1 gm in 50 mls @ 100 mls/hr IVPB Q12H [facility] Last Admin: 12/01/16 19:23 Dose: 100 mls/hr Vancomycin HCl (Vancocin 750mg/D5w 150 Ml) 150 mls @ 100 mls/hr IVPB Q12H [facility] Stop: 12/05/16 00:31 Last Admin: 12/02/16 00:58 Dose: 100 mls/hr Insulin Detemir (Levemir) 18 unit SC HS [facility] Last Admin: 12/01/16 22:59 Dose: 18 unit Insulin Human Regular (Novolin R) 6 unit SC ACL [facility] Last Admin: 12/01/16 12:24 Dose: 6 unit Insulin Human Regular (Novolin R) 6 unit SC ACD [facility] Last Admin: 12/01/16 17:30 Dose: 6 unit Insulin Human Regular (Novolin R) 10 unit SC ACB [facility] Last Admin: 12/01/16 07:30 Dose: Not Given Lisinopril (Zestril) 10 mg PO DAILY [facility] Last Admin: 12/01/16 12:08 Dose: 10 mg Metoprolol Tartrate (Lopressor) 50 mg PO BID [facility] Last Admin: 12/01/16 22:31 Dose: 50 mg Mirtazapine (Remeron) 30 mg PO HS [facility] Last Admin: 12/01/16 22:31 Dose: 30 mg Morphine Sulfate (Morphine) 4 mg IVP Q4 PRN PRN Reason: Pain, moderate (4-7) Last Admin: 12/01/16 18:23 Dose: 4 mg Ondansetron HCl (Zofran Inj) 4 mg IVP Q6H PRN PRN Reason: Nausea/Vomiting Rosuvastatin Calcium (Crestor) 10 mg PO QPM [facility] Last Admin: 12/01/16 19:00 Dose: 10 mg Saccharomyces Boulardii (Florastor) 250 mg PO BID [facility] Last Admin: 12/01/16 19:00 Dose: 250 mg Tamsulosin HCl (Flomax) 0.4 mg PO DAILY [facility] Last Admin: 12/01/16 12:08 Dose: 0.4 mg - Labs Labs: 12/02/16 08:10 12/02/16 08:10 PT 11.2 SECONDS (9.7-12.2) 12/01/16 07:51 INR 1.0 12/01/16 07:51 APTT 41 SECONDS (21-34) H 12/01/16 07:51 - Constitutional Appears: No Acute Distress - Head Exam Head Exam: ATRAUMATIC, NORMOCEPHALIC - Eye Exam Eye Exam: EOMI, PERRL - ENT Exam ENT Exam: Mucous Membranes Moist - Respiratory Exam Respiratory Exam: Clear to Ausculation Bilateral. absent: Rales, Rhonchi, Wheezes - Cardiovascular Exam Cardiovascular Exam: REGULAR RHYTHM, +S1, +S2 - GI/Abdominal Exam GI & Abdominal Exam: Soft, Normal Bowel Sounds. absent: Tenderness - Extremities Exam Additional comments: Right leg cooler than left with a mild ashy discoloration, but distal pulse was palpated. Right leg was not cold to the touch. - Neurological Exam Neurological Exam: Alert, Awake, Oriented x3 - Skin Skin Exam: Dry Assessment and Plan - Assessment and Plan (Free Text) Plan: (1) S/P aneurysm repair Assessment and Plan: -POD # 5 S/P emergent repair of ruptured right femoral artery pseudo-aneurysm with proximal ligatation and removal of femoral artery stent and patch; ruptured pseudo-aneurysm (possibly infected) on 11/27/[address] Lorenzo. -Plan for iliac popliteal "obdurator" bypass Saturday 12/[address] Lorenzo Vascular Surgeon, Dr Lorenzo is the Primary on the case Infectious Disease, Dr Herrera, consulted- help appreciated Right Groin Wound Culture 11/27/16 shows Gram Negative Rods and Gram Positive Cocci- sensitivities reviewed Blood Culture 11/27/16 shows no growth after 24 hours Pain control per surgery with Hydromorphone Vancomycin 1 gm IV Q12h (started 11/27/16) Cefepime 1 gm IV Q12H (started 11/27/16) Status: Acute (2) Elevated alkaline phosphatase level Assessment and Plan: Resolved Per chart review, patient with Hx Dilated CBD On prior admission patient was advised to follow up with outpatient elective cholecystectomy (3) STEVEN (acute kidney injury) Assessment and Plan: Resolved Possibly secondary to hypotension, hypotension responded well to NS bolus Will continue to monitor Status: Acute (4) Hyponatremia This has resolved Monitor (5) Acidosis likely Metabolic Could be secondary to recent surgery vs possible infected right femoral artery catheter which was removed vs compounded by the use of Glipizide for DM 2 Patient is on Vancomycin and Cefepime Glipizide has been discontinued This has resolved (6) Abdominal Bruit Abdominal Aorta U/S ordered on 11/27/16 was discontinued as patient had Abdominal Angiography performed on 10/21/16 and this did NOT show Abdominal Aneurysm. Please see full report for finding of Right Femoral Artery Pseudoaneurysm. (7) History of Diabetes Mellitus 2 Assessment and Plan: RISS - low dose Holding Glipizide because of the acidosis upon admission Continue home Insulin Regimen: Levemir 36 Units SC HS, Regular Insulin (Lispro not carried by our pharmacy) 10 Units SC ACB and 6 Units SC ACLD Patient currently on half his usual dose of Levemir (18 units) until he starts eating normally post op. Then he may switch back to the full dose. Regular Insulin sliding scale for added coverage. Continue Accuchecks ACHS Rosuvastatin 10mg PO HS Lisinopril 10mg PO daily Status: Chronic (8) History Hypertension Assessment and Plan: BP elevations noted Start Lisinopril 10mg PO daily on 11/30 Amlodipine 10mg PO 1x/day Metoprolol tartrate 25mg PO 2x/day was increased to 50 mg PO 2x/day with holding parameters 11/28/16 Continue to monitor q6h Status: Chronic (9) History of anemia Assessment and Plan: HgB/Hct are stable Ferrous Sulfate 325mg PO 2x/day Status: Chronic (10) History Chronic pancreatitis Assessment and Plan: Creon [id number] PO TID AC Meals not carried by our pharmacy therefore equilavent dose of Pacreaze Status: Chronic (11) History of depression Assessment and Plan: Duloxetine 40mg PO HS Mirtazapine 30mg PO HS Status: Chronic (12) History of BPH Assessment and Plan: Finasteride 5mg PO 1x/day Flomax 0.4 mg PO 1x/day Status: Chronic (13) History of Constipation Colace 100 mg PO TID Ordered fleet enema over the past weekend (14) Prophylactic measure Assessment and Plan: GI: pepcid 20mg PO q12h DVT: Anticoagulation/SCDs not indicated at this time due to recent surgery of LE /PVD Diet: Heart healthy, diabetic diet Case DW Dr. Marvin Alamo PGY-1 <Agnes Wong V - Last Filed: 12/02/16 22:56> Objective - Vital Signs/Intake and Output Vital Signs (last 24 hours): Temp Pulse Resp BP Pulse Ox 98.2 F 103 H 17 136/76 100 12/02/16 19:00 12/02/16 22:19 12/02/16 22:19 12/02/16 22:19 12/02/16 21:20 Intake and Output: 12/02/16 12/03/16 18:59 06:59 Intake Total 3775 200 Output Total 550 Balance 3225 200 - Medications Medications: Current Medications Amlodipine Besylate (Norvasc) 10 mg PO DAILY [facility] Last Admin: 12/02/16 11:05 Dose: Not Given Dextrose (Dextrose 50% Inj) 0 ml IVP .STAT PRN; Protocol PRN Reason: Hypoglycemia Protocol Last Admin: 11/29/16 07:17 Dose: 50 ml Dextrose (Glutose 15) 0 gm PO .ONCE PRN; Protocol PRN Reason: Hypoglycemia Protocol Docusate Sodium (Colace) 100 mg PO TID [facility] Last Admin: 12/02/16 11:04 Dose: Not Given Duloxetine HCl (Cymbalta) 40 mg PO HS [facility] Last Admin: 12/01/16 22:31 Dose: 40 mg Famotidine (Pepcid) 20 mg PO BID [facility] Last Admin: 12/02/16 11:05 Dose: Not Given Ferrous Sulfate (Feosol) 325 mg PO BID [facility] Last Admin: 12/02/16 11:04 Dose: Not Given Finasteride (Proscar) 5 mg PO DAILY [facility] Last Admin: 12/02/16 11:05 Dose: Not Given Fluticasone Propionate (Flonase) 2 spr EMMA DAILY [facility] Last Admin: 12/02/16 11:04 Dose: Not Given Glucagon (Glucagen Diagnostic Kit) 0 mg IM .STAT PRN; Protocol PRN Reason: Hypoglycemia Protocol Heparin Sodium (Porcine) (Heparin) 5,000 units SC Q8 [facility] Last Admin: 12/01/16 23:00 Dose: Not Given Hydromorphone HCl (Dilaudid) 0.5 mg IVP Q3H PRN PRN Reason: Pain, severe (8-10) Last Admin: 12/01/16 13:42 Dose: 0.5 mg Hydromorphone HCl (Dilaudid) 1 mg IVP Q3H PRN PRN Reason: breakthrough pain Cefepime HCl (Maxipime Iv 1 Gm Premix) 1 gm in 50 mls @ 100 mls/hr IVPB Q12H [facility] Last Admin: 12/02/16 08:00 Dose: 100 mls/hr Vancomycin HCl (Vancocin 750mg/D5w 150 Ml) 150 mls @ 100 mls/hr IVPB Q12H [facility] Stop: 12/05/16 00:31 Last Admin: 12/02/16 00:58 Dose: 100 mls/hr Insulin Human Regular 100 unit (/ Sodium Chloride) 100 mls @ 1.4 mls/hr SC .Q24H [facility]; 0.02 UNIT/KG/HR PRN Reason: Protocol Last Admin: 12/02/16 17:29 Dose: 0 mls Insulin Detemir (Levemir) 18 unit SC HS [facility] Last Admin: 12/01/16 22:59 Dose: 18 unit Insulin Human Regular (Novolin R) 6 unit SC ACL [facility] Last Admin: 12/01/16 12:24 Dose: 6 unit Insulin Human Regular (Novolin R) 6 unit SC ACD [facility] Last Admin: 12/01/16 17:30 Dose: 6 unit Insulin Human Regular (Novolin R) 10 unit SC ACB [facility] Last Admin: 12/02/16 07:30 Dose: Not Given Insulin Human Regular (Novolin R) 5 unit IV ONCE [facility] Insulin Human Regular (Novolin R) 0 unit SC ACHS [facility] PRN Reason: Protocol Lisinopril (Zestril) 10 mg PO DAILY [facility] Last Admin: 12/02/16 11:06 Dose: Not Given Metoprolol Tartrate (Lopressor) 50 mg PO BID [facility] Last Admin: 12/02/16 10:00 Dose: Not Given Mirtazapine (Remeron) 30 mg PO HS [facility] Last Admin: 12/01/16 22:31 Dose: 30 mg Morphine Sulfate (Morphine) 4 mg IVP Q4 PRN PRN Reason: Pain, moderate (4-7) Last Admin: 12/01/16 18:23 Dose: 4 mg Ondansetron HCl (Zofran Inj) 4 mg IVP Q6H PRN PRN Reason: Nausea/Vomiting Rosuvastatin Calcium (Crestor) 10 mg PO QPM [facility] Last Admin: 12/01/16 19:00 Dose: 10 mg Saccharomyces Boulardii (Florastor) 250 mg PO BID [facility] Last Admin: 12/02/16 11:03 Dose: Not Given Tamsulosin HCl (Flomax) 0.4 mg PO DAILY [facility] Last Admin: 12/02/16 11:04 Dose: Not Given - Labs Labs: 12/02/16 21:30 12/02/16 18:11 PT 11.2 SECONDS (9.7-12.2) 12/01/16 07:51 INR 1.0 12/01/16 07:51 APTT 41 SECONDS (21-34) H 12/01/16 07:51 Attending/Attestation - Attestation I have personally seen and examined this patient.: Yes I have fully participated in the care of the patient.: Yes I have reviewed all pertinent clinical information, including history, physical exam and plan: Yes Notes (Text): Patient seen, examined and case discussed with day-time resident. Patient seen this morning. Patient is aware he is going for OR today by vascular surgery. Vancomycin trough elevated. Discussed with ID, Vancomycin held this morning in light of elevated trough. Patient received 1/2 dose of Lantus tonight in preparation for OR today. Patient to resume full dose Lantus (36 units) post OR. Patient is inconsistent with his sugars, allowing for insulin sometimes or taking extra snacks per discussion with nursing. Patient is currently on contact isolation for MRSA in wound culture. Infectious Disease on board. 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 -Plan for iliac popliteal "obdurator" bypass Saturday 12/[address] Lorenzo Vascular Surgeon, Dr Lorenzo is the Primary on the case Infectious Disease, Dr Herrera, consulted- help appreciated * Right Groin Wound Culture 11/27/16-->E . Coli and MRSA * Wound culture: 11/27/16-->E. Coli * Blood Culture 11/27/16 shows no growth 5 days X2 * Pain control with Hydromorphone * Vancomycin 750 gm IV Q12h (12/01/16)--->elevated vancomycin trough; held vanco light of trough; id aware * Cefepime 1 gm IV Q12H (11/27/16) Status: Acute (2) Elevated alkaline phosphatase level Assessment and Plan: * Resolved * Per chart review, patient with Hx Dilated CBD * On prior admission patient was advised to follow up with outpatient elective cholecystectomy (3) STEVEN (acute kidney injury) Assessment and Plan: * Resolved * Will continue to monitor * vanco held in light of elevated trough Status: Acute (4) Hyponatremia * This has resolved * Monitor (5) Acidosis likely Metabolic * Could be secondary to recent surgery vs possible infected right femoral artery catheter which was removed vs compounded by the use of Glipizide for DM 2 * Patient is on Vancomycin and Cefepime * Glipizide has been discontinued * This has resolved (6) Abdominal Bruit * Abdominal Aorta U/S ordered on 11/27/16 was discontinued as patient had Abdominal Angiography performed on 10/21/16 and this did NOT show Abdominal Aneurysm. Please see full report for finding of Right Femoral Artery Pseudoaneurysm. (7) History of Diabetes Mellitus 2 Assessment and Plan: * RISS - medium dose * Holding Glipizide because of the acidosis upon admission * Continue home Insulin Regimen: * Levemir 36 Units SC HS--->to give 1/2 dose tonight prior to OR (18 units subHS) and resume full dose post OR, Regular Insulin (Lispro not carried by our pharmacy) 10 Units SC ACB and 6 Units SC ACLD * Continue Accuchecks ACHS * Rosuvastatin 10mg PO HS * Lisinopril 10mg PO daily Status: Chronic (8) History Hypertension Assessment and Plan: * BP elevations noted * Start Lisinopril 10mg PO daily on 11/30 * Amlodipine 10mg PO 1x/day * Metoprolol tartrate 25mg PO 2x/day was increased to 50 mg PO 2x/day with holding parameters 11/28/16 * Continue to monitor q6h Status: Chronic (9) History of anemia Assessment and Plan: * HgB/Hct are stable * Ferrous Sulfate 325mg PO 2x/day Status: Chronic (10) History Chronic pancreatitis Assessment and Plan: * Creon [id number] PO TID AC Meals not carried by our pharmacy therefore equilavent dose of Pacreaze Status: Chronic (11) History of depression Assessment and Plan: * Duloxetine 40mg PO HS * Mirtazapine 30mg PO HS Status: Chronic (12) History of BPH Assessment and Plan: * Finasteride 5mg PO 1x/day * Flomax 0.4 mg PO 1x/day Status: Chronic (13) History of Constipation * Colace 100 mg PO TID * Monitor bowel movement (14) Prophylactic measure Assessment and Plan: GI: pepcid 20mg PO q12h DVT: Anticoagulation/SCDs not indicated at this time due to recent surgery of LE /PVD and going to OR today Diet: Heart healthy, diabetic diet
[2016-12-02] MEDS ORDERED: Iodixanol 320 MG/ML 200 ML BOTTLE IV ONE (10:48)
[2016-12-02] MEDS ORDERED: Papaverine Hydrochloride 30 mg/ml (2ml) ONE (10:48)
[2016-12-02] MEDS ORDERED: Lidocaine 1% Inj (20ml) ONE (10:48)
[2016-12-02] MEDS ORDERED: HEPARIN-NS 5,000 UNITS/500 ML 5,000 UNIT/500 ML BAG IV ONE ×2 (10:48→12:40)
[2016-12-02] MEDS: Saccharomyces Boulardi 250 mg Cap PO SCH (11:03)
[2016-12-02] MEDS: Fluticasone Nasal 50 mcg/Spray NAS SCH (11:04)
[2016-12-02] MEDS: LIPASE/PROTEASE/AMYLASE 4,200 U ECC PO SCH (11:06)
[2016-12-02] MEDS ORDERED: Midazolam 2 MG/2 ML VIAL ONE (11:58)
[2016-12-02] MEDS ORDERED: Propofol 10 mg/ml Inj (20 ML) ONE (12:51)
[2016-12-02] MEDS ORDERED: Calcium Chloride 1000 mg/10 ml Syringe IV ONE ×2 (13:00→14:55)
[2016-12-02 13:10] LABS: DRAW SITE LINE
[2016-12-02] MEDS ORDERED: (Novolin R) Insulin Human Regular 100 units/ml vial IV ONE (13:35)
[2016-12-02] MEDS ORDERED: (Novolin R) Insulin Human Regular 100 units/ml vial IV SCH (13:45)
[2016-12-02 15:16] LABS: HEMATOCRIT 27.8 % (35.0-51.0)
[2016-12-02 15:17] LABS: ARTERIAL BLOOD HGB O2 SAT 97.6 % (95.0-98.0); DRAW SITE LINE; HHB 0.6 % (0.0-5.0); METHEMOGLOBIN 0.8 % (0.0-3.0)
[2016-12-02] MEDS ORDERED: Thrombin Topical 20,000 Intl Units Spray Kit TOP ONE (15:57)
[2016-12-02] MEDS ORDERED: Collagen Hemostat Powder ONE (16:06)
[2016-12-02] MEDS: Insulin Human Regular 100 UNIT in Sodium Chloride 0.9% 99 ML SC SCH ×2 (16:13→17:29)
[2016-12-02] MEDS ORDERED: HYDROmorphone 0.5 mg/0.5 ml ISec IVP PRN (16:40)
[2016-12-02] MEDS ORDERED: Bacitracin Ointment 30 GM TUBE ONE (17:12)
--- NOTE | 2016-12-02 17:33 | PCM.SURG1 ---
Surgeon's Initial Post Op Note - Surgeon's Notes Surgeon: Dr. Lorenzo Associate Attorney: Dr. Mckeon PGY-3, Dr. Resendiz PGY-2, Malika Soni OMS-III Type of Anesthesia: General Endo Pre-Operative Diagnosis: Femoral ligation s/p ruptured femoral artery aneurysm Operative Findings: see operative report Post-Operative Diagnosis: Femoral ligation s/p ruptured femoral artery aneurysm Operation Performed: Right common iliac-popliteal bypass with 8mm PTFE and right femoral embolectomy Specimen/Specimens Removed: blood clot Estimated Blood Loss: EBL {In ML}: 500 Blood Products Given: PRBC (3) Drains Used: No Drains Post-Op Condition: Poor Date of Surgery/Procedure: 12/02/16 Time of Surgery/Procedure: 17:33
[2016-12-02 18:34] LABS: CHLORIDE 101 mmol/L (98-107); SODIUM 130 mmol/L (132-148)
[2016-12-02 18:35] LABS: POTASSIUM 4.3 mmol/L (3.6-5.2)
[2016-12-02 18:37] LABS: CARBON DIOXIDE 17 mmol/L (22-30); GFR AFRICAN-AMERICAN > 60
[2016-12-02 18:38] LABS: BLOOD UREA NITROGEN 20 mg/dL (9-20); CALCIUM 9.5 mg/dl (8.6-10.4); GLUCOSE,RANDOM 229 mg/dL (75-110)
--- NOTE | 2016-12-02 21:22 | CP.PCM.CON ---
History of Present Illness - History of Present Illness History of Present Illness: CCM 70 yo male with hx HTN /DM /PAD /Carotied Stenosis /s/p CEA /Depression/ Bacteremia admitted withRuptured R Pseudo aneurysm and went to OR for resection and stent. Today pt had Right common iliac-popliteal bypass with 8mm PTFE and right femoral embolectomy. EBL 500cc. Received 3 units PRBC. Pt sent to ICU for post op care. Denies pain /sob /n /v/cough/ urinary sx. ROS- as noted All- NKDA Social- +tob/ ex-etoh , drugs Meds- reviewed FH- Unknown PE T-98.2 P-112 R-19 BP-121/67 Alert responsive, nad Neck- no jvd Lungs- bilat bs Heart-rr Abd- bs+, soft, dressing intact Ext- right groin dressing intact, distal pulses intact, no edema Labs, [id number] A&P s/p R common Iliac-Pop Bypass /femoral Embolectomy s/p Ruptured Pseudoaneurysm PAD Anemia HTN DM- Uncontrolled Depression Hx CEA Pancreatic Cyst cont meds cont Ab as per ID analgesia prn IV fluid cont Insulin drip for bs control maintain optimal lytes f/u labs / CBG monitoing DVT prophylaxis Surgery f/u Incentive Spirometry Past Patient History - Infectious Disease Hx of Infectious Diseases: None - Tetanus Immunizations Tetanus Immunization: Unknown - Past Medical History & Family History Past Medical History?: Yes - Past Social History Smoking Status: Heavy Smoker > 10 Cigarettes Daily - CARDIAC Hx Hypertension: Yes - PULMONARY Hx Respiratory Disorders: No - NEUROLOGICAL Hx Vertigo: Yes - HEENT Other/Comment: glasses for reading - RENAL Hx Chronic Kidney Disease: No - ENDOCRINE/METABOLIC Hx Diabetes Mellitus Type 1: Yes - HEMATOLOGICAL/ONCOLOGICAL Hx Anemia: Yes - INTEGUMENTARY Hx Dermatological Problems: No - MUSCULOSKELETAL/RHEUMATOLOGICAL Hx Arthritis: Yes - GASTROINTESTINAL Hx Crohn's Disease: No Hx Diverticulitis: No Hx Gall Bladder Disease: Yes Hx Gastritis: No Hx Pancreatitis: Yes - GENITOURINARY/GYNECOLOGICAL Hx Prostate Problems: Yes (BPH) - PSYCHIATRIC Hx Depression: Yes Hx Substance Use: Yes - SURGICAL HISTORY Hx Carotid Endarterectomy: Yes (L CEA) - ANESTHESIA Hx Anesthesia: Yes Hx Anesthesia Reactions: No Hx Malignant Hyperthermia: No Meds Allergies/Adverse Reactions: Allergies Allergy/AdvReac Type Severity Reaction Status Date / Time No Known Allergies Allergy Verified 10/23/16 14:42 - Medications Medications: Current Medications Amlodipine Besylate (Norvasc) 10 mg PO DAILY [facility] Last Admin: 12/02/16 11:05 Dose: Not Given Dextrose (Dextrose 50% Inj) 0 ml IVP .STAT PRN; Protocol PRN Reason: Hypoglycemia Protocol Last Admin: 11/29/16 07:17 Dose: 50 ml Dextrose (Glutose 15) 0 gm PO .ONCE PRN; Protocol PRN Reason: Hypoglycemia Protocol Docusate Sodium (Colace) 100 mg PO TID [facility] Last Admin: 12/02/16 11:04 Dose: Not Given Duloxetine HCl (Cymbalta) 40 mg PO HS [facility] Last Admin: 12/01/16 22:31 Dose: 40 mg Famotidine (Pepcid) 20 mg PO BID [facility] Last Admin: 12/02/16 11:05 Dose: Not Given Ferrous Sulfate (Feosol) 325 mg PO BID [facility] Last Admin: 12/02/16 11:04 Dose: Not Given Finasteride (Proscar) 5 mg PO DAILY [facility] Last Admin: 12/02/16 11:05 Dose: Not Given Fluticasone Propionate (Flonase) 2 spr EMMA DAILY [facility] Last Admin: 12/02/16 11:04 Dose: Not Given Glucagon (Glucagen Diagnostic Kit) 0 mg IM .STAT PRN; Protocol PRN Reason: Hypoglycemia Protocol Heparin Sodium (Porcine) (Heparin) 5,000 units SC Q8 [facility] Last Admin: 12/01/16 23:00 Dose: Not Given Hydromorphone HCl (Dilaudid) 0.5 mg IVP Q3H PRN PRN Reason: Pain, severe (8-10) Last Admin: 12/01/16 13:42 Dose: 0.5 mg Hydromorphone HCl (Dilaudid) 1 mg IVP Q3H PRN PRN Reason: breakthrough pain Cefepime HCl (Maxipime Iv 1 Gm Premix) 1 gm in 50 mls @ 100 mls/hr IVPB Q12H [facility] Last Admin: 12/02/16 08:00 Dose: 100 mls/hr Vancomycin HCl (Vancocin 750mg/D5w 150 Ml) 150 mls @ 100 mls/hr IVPB Q12H [facility] Stop: 12/05/16 00:31 Last Admin: 12/02/16 00:58 Dose: 100 mls/hr Insulin Human Regular 100 unit (/ Sodium Chloride) 100 mls @ 1.4 mls/hr SC .Q24H [place]; 0.02 UNIT/KG/HR PRN Reason: Protocol Last Admin: 12/02/16 17:29 Dose: 0 mls Insulin Detemir (Levemir) 18 unit SC HS [facility] Last Admin: 12/01/16 22:59 Dose: 18 unit Insulin Human Regular (Novolin R) 6 unit SC ACL [facility] Last Admin: 12/01/16 12:24 Dose: 6 unit Insulin Human Regular (Novolin R) 6 unit SC ACD [facility] Last Admin: 12/01/16 17:30 Dose: 6 unit Insulin Human Regular (Novolin R) 10 unit SC ACB [facility] Last Admin: 12/02/16 07:30 Dose: Not Given Insulin Human Regular (Novolin R) 5 unit IV ONCE [place] Insulin Human Regular (Novolin R) 0 unit SC ACHS [facility] PRN Reason: Protocol Lisinopril (Zestril) 10 mg PO DAILY [facility] Last Admin: 12/02/16 11:06 Dose: Not Given Metoprolol Tartrate (Lopressor) 50 mg PO BID [facility] Last Admin: 12/02/16 10:00 Dose: Not Given Mirtazapine (Remeron) 30 mg PO [facility] Last Admin: 12/01/16 22:31 Dose: 30 mg Morphine Sulfate (Morphine) 4 mg IVP Q4 PRN PRN Reason: Pain, moderate (4-7) Last Admin: 12/01/16 18:23 Dose: 4 mg Ondansetron HCl (Zofran Inj) 4 mg IVP Q6H PRN PRN Reason: Nausea/Vomiting Rosuvastatin Calcium (Crestor) 10 mg PO QPM [facility] Last Admin: 12/01/16 19:00 Dose: 10 mg Saccharomyces Boulardii (Florastor) 250 mg PO BID [facility] Last Admin: 12/02/16 11:03 Dose: Not Given Tamsulosin HCl (Flomax) 0.4 mg PO DAILY [facility] Last Admin: 12/02/16 11:04 Dose: Not Given Results - Vital Signs Recent Vital Signs: Last Vital Signs Temp 98.2 F 12/02/16 19:00 Pulse 112 H 12/02/16 19:00 Resp 19 12/02/16 19:00 BP 121/67 12/02/16 19:00 Pulse Ox 100 12/02/16 19:00 - Labs Result Diagrams: 12/02/16 15:13 12/02/16 18:11 Labs: Laboratory Results - last 24 hr 12/01/16 12/01/16 12/02/16 07:47 21:35 06:29 WBC RBC Hgb Hct MCV MCH MCHC RDW Plt Count MPV Neut % (Auto) Lymph % (Auto) [place] % (Auto) Eos % (Auto) Baso % (Auto) Neut # Lymph # [place] # Eos # Baso # Puncture Site pCO2 pO2 HCO3 ABG pH ABG Total CO2 ABG O2 Saturation ABG Base Excess ABG Hemoglobin ABG Carboxyhemoglobin POC ABG HHb (Measured) ABG Methemoglobin [place] Test ABG Potassium Hgb O2 Saturation Glucose Lactate Sodium Potassium Chloride Carbon Dioxide Anion Gap BUN Creatinine Est GFR ( Amer) Est GFR (Non-Af Amer) POC Glucose (mg/dL) 366 H 193 H Random Glucose Calcium Total Bilirubin AST ALT Alkaline Phosphatase Total Protein Albumin Globulin Albumin/Globulin Ratio Arterial Blood Potassium Vancomycin Trough Blood Type O POSITIVE Antibody Screen Negative 12/02/16 12/02/16 12/02/16 08:10 08:10 08:10 WBC 8.4 RBC 3.52 L Hgb 10.2 L Hct 29.6 L MCV 84.3 MCH 29.1 MCHC 34.5 RDW 16.1 H Plt Count 269 MPV 7.7 Neut % (Auto) 78.1 H Lymph % (Auto) 10.1 L [place] % (Auto) 7.9 Eos % (Auto) 3.0 Baso % (Auto) 0.9 Neut # 6.5 Lymph # 0.8 L [place] # 0.7 Eos # 0.3 Baso # 0.1 Puncture Site pCO2 pO2 HCO3 ABG pH ABG Total CO2 ABG O2 Saturation ABG Base Excess ABG Hemoglobin ABG Carboxyhemoglobin POC ABG HHb (Measured) ABG Methemoglobin [place] Test ABG Potassium Hgb O2 Saturation Glucose Lactate Sodium 133 Potassium 4.1 Chloride 98 Carbon Dioxide 19 L Anion Gap 20 BUN 20 Creatinine 1.2 Est GFR ( Amer) > 60 Est GFR (Non-Af Amer) > 60 POC Glucose (mg/dL) Random Glucose 177 H Calcium 9.2 Total Bilirubin 0.5 AST 19 ALT 22 Alkaline Phosphatase 123 Total Protein 7.8 Albumin 3.8 Globulin 3.9 Albumin/Globulin Ratio 1.0 Arterial Blood Potassium Vancomycin Trough 26.0 H Blood Type Antibody Screen 12/02/16 12/02/16 12/02/16 13:07 14:16 15:10 WBC RBC Hgb Hct MCV MCH MCHC RDW Plt Count MPV Neut % (Auto) Lymph % (Auto) [place] % (Auto) Eos % (Auto) Baso % (Auto) Neut # Lymph # [place] # Eos # Baso # Puncture Site Line pCO2 29 L pO2 501 H HCO3 22.0 ABG pH 7.43 ABG Total CO2 20.1 L ABG O2 Saturation 99.3 H ABG Base Excess -3.9 L ABG Hemoglobin ABG Carboxyhemoglobin POC ABG HHb (Measured) ABG Methemoglobin [place] Test Na ABG Potassium 4.4 Hgb O2 Saturation Glucose 303 H Lactate 1.4 Sodium 132.0 Potassium Chloride 104.0 Carbon Dioxide Anion Gap BUN Creatinine Est GFR ( Amer) Est GFR (Non-Af Amer) POC Glucose (mg/dL) 262 H 242 H Random Glucose Calcium Total Bilirubin AST ALT Alkaline Phosphatase Total Protein Albumin Globulin Albumin/Globulin Ratio Arterial Blood Potassium 4.4 Vancomycin Trough Blood Type Antibody Screen 12/02/16 12/02/16 12/02/16 15:13 15:14 16:05 WBC RBC Hgb 9.5 L Hct 27.8 L MCV MCH MCHC RDW Plt Count MPV Neut % (Auto) Lymph % (Auto) [place] % (Auto) Eos % (Auto) Baso % (Auto) Neut # Lymph # [place] # Eos # Baso # Puncture Site Line pCO2 33 L pO2 519 H HCO3 22.5 ABG pH 7.41 ABG Total CO2 21.9 L ABG O2 Saturation 99.4 H ABG Base Excess -3.2 L ABG Hemoglobin 9.5 L ABG Carboxyhemoglobin 1.0 POC ABG HHb (Measured) 0.6 ABG Methemoglobin 0.8 [place] Test Na ABG Potassium Hgb O2 Saturation 97.6 Glucose Lactate Sodium Potassium Chloride Carbon Dioxide Anion Gap BUN Creatinine Est GFR ( Amer) Est GFR (Non-Af Amer) POC Glucose (mg/dL) 229 H Random Glucose Calcium Total Bilirubin AST ALT Alkaline Phosphatase Total Protein Albumin Globulin Albumin/Globulin Ratio Arterial Blood Potassium Vancomycin Trough Blood Type Antibody Screen 12/02/16 12/02/16 12/02/16 18:11 18:33 20:12 WBC RBC Hgb Hct MCV MCH MCHC RDW Plt Count MPV Neut % (Auto) Lymph % (Auto) [place] % (Auto) Eos % (Auto) Baso % (Auto) Neut # Lymph # [place] # Eos # Baso # Puncture Site pCO2 pO2 HCO3 ABG pH ABG Total CO2 ABG O2 Saturation ABG Base Excess ABG Hemoglobin ABG Carboxyhemoglobin POC ABG HHb (Measured) ABG Methemoglobin [place] Test ABG Potassium Hgb O2 Saturation Glucose Lactate Sodium 130 L Potassium 4.3 Chloride 101 Carbon Dioxide 17 L Anion Gap 16 BUN 20 Creatinine 1.1 Est GFR ( Amer) > 60 Est GFR (Non-Af Amer) > 60 POC Glucose (mg/dL) 272 H 259 H Random Glucose 229 H Calcium 9.5 Total Bilirubin AST ALT Alkaline Phosphatase Total Protein Albumin Globulin Albumin/Globulin Ratio Arterial Blood Potassium Vancomycin Trough Blood Type Antibody Screen Assessment & Plan (1) S/P femoral-popliteal bypass surgery Status: Acute (2) H/O ruptured arterial aneurysm Status: Resolved (3) Anemia Status: Acute (4) Diabetes mellitus, insulin dependent (IDDM), uncontrolled Status: Acute (5) Hypertension Status: Chronic
[2016-12-02 21:33] LABS: BASO # 0.1 K/uL (0.0-0.2); BASO % 0.3 % (0.0-2.0); EOS # 0.1 K/uL (0.0-0.7); EOS % 0.3 % (0.0-4.0); HEMATOCRIT 30.2 % (35.0-51.0); LYMPH # 0.9 K/uL (1.0-4.3); LYMPH % 4.5 % (20.0-40.0); MEAN CELL VOLUME 84.8 fL (80.0-94.0); MEAN CORPUSCULAR HEMOGLOBIN 29.4 pg (27.0-31.0); MEAN CORPUSCULAR HGB CONC 34.7 g/dL (33.0-37.0); MONO # 1.1 K/uL (0.0-0.8); MONO % 5.6 % (0.0-10.0); PLATELET COUNT 235 K/uL (130-400); RED CELL DISTRIBUTION WIDTH 15.4 % (11.5-14.5)
[2016-12-02 21:37] LABS: WHITE BLOOD COUNT 20.6 K/uL (4.8-10.8)
[2016-12-02 22:22] LABS: BASOPHIL 1 % (0-2); NEUTROPHIL 91 % (50-75); TOTAL CELLS COUNTED 100
[2016-12-02] MEDS: Morphine 4 MG/ML VIAL IVP PRN (22:55)
[2016-12-02] MEDS: Insulin Detemir 100 units/ml Vial (Levemir) SC SCH (22:55)
--- NOTE | 2016-12-03 00:02 | OP ---
DATE OF PROCEDURE: 12/02/2016 PREOPERATIVE DIAGNOSIS: Rest pain right foot, status post ligation of ruptured femoral artery pseudoaneurysm. PROCEDURE PERFORMED: Right common iliac to right popliteal artery bypass using an 8-mm ringed PTFE graft via the obturator foramen. SURGEON: Noé Lorenzo Jr., MD. ASSISTANTS: Dr. Mckeon and Dr. Resendiz, residents. ANESTHESIOLOGIST: Evelyn Hebert CRNA. INDICATIONS FOR PROCEDURE: The patient is an older middle-aged man, initially had cardiac cath, developed occlusion of the right common femoral artery, subsequently patch angioplastied, subsequently this ruptured and then required placement of a stent to control hemorrhage. Subsequent to this, he had a persistent sinus in the groin and while this was being evaluated for treatment, he presented with chaz rupture of the groin. At that time, the external iliac artery was ligated just above the groin and the area itself was oversewn. Subsequent to that, he had increasing pain in the foot. I felt that revascularization could no longer be delayed. OPERATIVE FINDINGS: There was a clot in the superficial femoral artery, but after removal of clot from the superficial femoral artery down to the popliteal, there was a good return of blood and good backbleeding. No completion angiogram was taken. In addition, there was a clot in the external iliac artery. Initially, we dissected out the superficial femoral artery in the midthigh. We then dissected out the common iliac, external iliac bifurcation in the retroperitoneal space using a retroperitoneal incision. We then using a variety of techniques created a tunnel which went through the obturator foramen and then the graft was brought up after the distal anastomosis was done first, was brought up and anastomosed to the common femoral artery. This appeared to work quite well. There was a very good flow. Through this into the distal artery and on Doppler signals, there were good biphasic signals. Obtaining hemostasis took some time in the common iliac artery due to persistent bleeding from needle holes. We eventually closed this when it was dry and closed the layers of the abdominal wall. The other incisions were then closed. Standard skin protective measures were taken to protect the old wounds from the new wounds. Noé Lorenzo Jr., MD
[2016-12-03] MEDS: Morphine 4 MG/ML VIAL IVP PRN (05:26)
[2016-12-03 06:33] LABS: BASO # 0.1 K/uL (0.0-0.2); BASO % 0.3 % (0.0-2.0); EOS # 0.1 K/uL (0.0-0.7); EOS % 0.3 % (0.0-4.0); HEMATOCRIT 28.4 % (35.0-51.0); LYMPH # 0.7 K/uL (1.0-4.3); LYMPH % 4.2 % (20.0-40.0); MEAN CELL VOLUME 84.7 fL (80.0-94.0); MEAN CORPUSCULAR HEMOGLOBIN 29.3 pg (27.0-31.0); MEAN CORPUSCULAR HGB CONC 34.6 g/dL (33.0-37.0); MEAN PLATELET VOLUME 7.9 fL (7.2-11.7); MONO # 1.1 K/uL (0.0-0.8); MONO % 6.6 % (0.0-10.0); NRBC % 0.1 % (0.0-2.0); PLATELET COUNT 230 K/uL (130-400); RED CELL DISTRIBUTION WIDTH 15.6 % (11.5-14.5); WHITE BLOOD COUNT 16.5 K/uL (4.8-10.8)
[2016-12-03 06:40] LABS: CHLORIDE 99 mmol/L (98-107); SODIUM 134 mmol/L (132-148)
[2016-12-03 06:41] LABS: POTASSIUM 4.2 mmol/L (3.6-5.2)
[2016-12-03 06:43] LABS: ALB/GLOB RATIO 0.8 (1.0-2.1); ALKALINE PHOSPHATASE 68 U/L (38-126); ALT/SGPT 30 U/L (21-72); AST/SGOT 44 U/L (17-59); BILIRUBIN,TOTAL 0.7 mg/dL (0.2-1.3); BLOOD UREA NITROGEN 23 mg/dL (9-20); CARBON DIOXIDE 22 mmol/L (22-30); GFR AFRICAN-AMERICAN > 60; TOTAL PROTEIN 6.3 g/dL (6.3-8.3)
[2016-12-03 06:44] LABS: CALCIUM 8.8 mg/dl (8.6-10.4); GLUCOSE,RANDOM 116 mg/dL (75-110)
[2016-12-03] MEDS: (Novolin R) Insulin Human Regular 100 units/ml vial SC SCH ×7 (08:05→21:38)
[2016-12-03] MEDS: Cefepime IV 1 gm in Dextrose 1 GM/50 ML BAG IVPB SCH ×2 (08:16→20:44)
[2016-12-03 08:27] LABS: NEUTROPHIL 87 % (50-75); TOTAL CELLS COUNTED 100
--- NOTE | 2016-12-03 09:05 | CP.PCM.PN ---
Subjective - Date & Time of Evaluation Date of Evaluation: 12/03/16 Time of Evaluation: 07:00 - Subjective Subjective: VASCULAR SURGERY PROGRESS NOTE FOR DR. DENIS Patient seen and examined at bedside in the ICU. Patient reports that his right foot still hurts but the pain is much improved compared to before the surgery. He states that he hasn't eaten yet since surgery. He is able to move his toes some. Objective - Vital Signs/Intake and Output Vital Signs (last 24 hours): Temp Pulse Resp BP Pulse Ox 98.1 F 104 H 28 H 116/53 L 100 12/03/16 08:00 12/03/16 08:19 12/03/16 08:19 12/03/16 08:19 12/03/16 08:00 Intake and Output: 12/03/16 12/03/16 06:59 18:59 Intake Total 1668 50 Output Total 450 75 Balance 1218 -25 - Medications Medications: Current Medications Amlodipine Besylate (Norvasc) 10 mg PO DAILY [facility] Last Admin: 12/02/16 11:05 Dose: Not Given Dextrose (Dextrose 50% Inj) 0 ml IVP .STAT PRN; Protocol PRN Reason: Hypoglycemia Protocol Last Admin: 11/29/16 07:17 Dose: 50 ml Dextrose (Glutose 15) 0 gm PO .ONCE PRN; Protocol PRN Reason: Hypoglycemia Protocol Docusate Sodium (Colace) 100 mg PO TID [facility] Last Admin: 12/02/16 11:04 Dose: Not Given Duloxetine HCl (Cymbalta) 40 mg PO HS [facility] Last Admin: 12/02/16 22:46 Dose: 40 mg Famotidine (Pepcid) 20 mg PO BID [facility] Last Admin: 12/02/16 11:05 Dose: Not Given Ferrous Sulfate (Feosol) 325 mg PO BID [facility] Last Admin: 12/02/16 11:04 Dose: Not Given Finasteride (Proscar) 5 mg PO DAILY [facility] Last Admin: 12/02/16 11:05 Dose: Not Given Fluticasone Propionate (Flonase) 2 spr EMMA DAILY [facility] Last Admin: 12/02/16 11:04 Dose: Not Given Glucagon (Glucagen Diagnostic Kit) 0 mg IM .STAT PRN; Protocol PRN Reason: Hypoglycemia Protocol Heparin Sodium (Porcine) (Heparin) 5,000 units SC Q8 [facility] Last Admin: 12/01/16 23:00 Dose: Not Given Cefepime HCl (Maxipime Iv 1 Gm Premix) 1 gm in 50 mls @ 100 mls/hr IVPB Q12H [facility] Last Admin: 12/03/16 08:16 Dose: 100 mls/hr Vancomycin HCl (Vancocin 750mg/D5w 150 Ml) 150 mls @ 100 mls/hr IVPB Q12H [facility] Stop: 12/05/16 00:31 Last Admin: 12/02/16 00:58 Dose: 100 mls/hr Insulin Human Regular 100 unit (/ Sodium Chloride) 100 mls @ 1.4 mls/hr SC .Q24H [place]; 0.02 UNIT/KG/HR PRN Reason: Protocol Last Admin: 12/02/16 17:29 Dose: 0 mls Acetaminophen 1,000 mg/ (Miscellaneous) 100 mls @ 400 mls/hr IV Q6 [facility] Stop: 12/04/16 12:01 Insulin Detemir (Levemir) 18 unit SC HS [facility] Last Admin: 12/02/16 22:55 Dose: 18 unit Insulin Human Regular (Novolin R) 6 unit SC ACL [facility] Last Admin: 12/01/16 12:24 Dose: 6 unit Insulin Human Regular (Novolin R) 6 unit SC ACD [facility] Last Admin: 12/01/16 17:30 Dose: 6 unit Insulin Human Regular (Novolin R) 10 unit SC ACB [facility] Last Admin: 12/03/16 08:45 Dose: Not Given Insulin Human Regular (Novolin R) 5 unit IV ONCE [place] Insulin Human Regular (Novolin R) 0 unit SC ACHS [facility] PRN Reason: Protocol Last Admin: 12/03/16 08:05 Dose: Not Given Lisinopril (Zestril) 10 mg PO DAILY [facility] Last Admin: 12/02/16 11:06 Dose: Not Given Metoprolol Tartrate (Lopressor) 50 mg PO BID [facility] Last Admin: 12/02/16 10:00 Dose: Not Given Mirtazapine (Remeron) 30 mg PO HS [facility] Last Admin: 12/02/16 22:46 Dose: 30 mg Ondansetron HCl (Zofran Inj) 4 mg IVP Q6H PRN PRN Reason: Nausea/Vomiting Last Admin: 12/03/16 08:42 Dose: 4 mg Rosuvastatin Calcium (Crestor) 10 mg PO QPM [facility] Last Admin: 12/01/16 19:00 Dose: 10 mg Saccharomyces Boulardii (Florastor) 250 mg PO BID [facility] Last Admin: 12/02/16 11:03 Dose: Not Given Tamsulosin HCl (Flomax) 0.4 mg PO DAILY [facility] Last Admin: 12/02/16 11:04 Dose: Not Given Tramadol HCl (Ultram) 50 mg PO TID [facility] - Labs Labs: 12/03/16 06:15 12/03/16 06:19 PT 11.2 SECONDS (9.7-12.2) 12/01/16 07:51 INR 1.0 12/01/16 07:51 APTT 41 SECONDS (21-34) H 12/01/16 07:51 - Constitutional Appears: Non-toxic, No Acute Distress - Head Exam Head Exam: ATRAUMATIC, NORMAL INSPECTION - Eye Exam Eye Exam: EOMI, Normal appearance - Respiratory Exam Respiratory Exam: NORMAL BREATHING PATTERN. absent: Respiratory Distress - Cardiovascular Exam Cardiovascular Exam: +S1, +S2 - GI/Abdominal Exam GI & Abdominal Exam: Soft. absent: Tenderness Additional comments: Right flank incision with dressings clean/dry/intact - Extremities Exam Additional comments: Right foot: warm to touch, palpable DP and PT pulses - Neurological Exam Neurological Exam: Alert, Awake - Psychiatric Exam Psychiatric exam: Normal Affect, Normal Mood - Skin Skin Exam: Normal Color, Warm Assessment and Plan - Assessment and Plan (Free Text) Assessment: 70yo M with ruptured infected right femoral artery pseudo-aneurysm s/p emergent repair of ruptured right femoral artery pseudo-aneurysm with proximal ligatation and removal of femoral artery stent and patch POD#5, and now s/p Right common iliac-popliteal bypass with 8mm PTFE and right femoral embolectomy POD#1 - Afebrile, mild tachycardia - Hemoglobin 9.8 this morning after 3 PRBC intraop - Continue IV Abx - Will keep [place] for now due to borderline urine output - Heparin BID for PPx - Will start Aspirin and Plavix today - Discussed plan with Dr. Maura Mckeon PGY-3
[2016-12-03] MEDS: LIPASE/PROTEASE/AMYLASE 4,200 U ECC PO SCH ×4 (09:28→18:17)
[2016-12-03] MEDS: Saccharomyces Boulardi 250 mg Cap PO SCH ×2 (09:29→17:33)
[2016-12-03] MEDS: Lactated Ringer's 1,000 ML IV SCH ×2 (09:30→17:36)
--- NOTE | 2016-12-03 09:33 | OP ---
PROCEDURE DATE: 12/02/2016 ADDENDUM In addition to the above-mentioned procedure, we carried out a right common iliac to right popliteal bypass. We carried out a right femoral embolectomy. When we initially opened, the femoral artery, there was extensive clot, propagated down to the level of the knee. This required a transfemoral balloon catheter embolectomy, which went successfully with retrieval of great amount of clot, which was submitted for examination. Noé Lorenzo Jr., MD
[2016-12-03] MEDS: Acetaminophen IV 1,000 MG in Premixed IV 1 EA IV SCH ×2 (11:15→17:53)
[2016-12-03] MEDS: Fluticasone Nasal 50 mcg/Spray NAS SCH (11:50)
--- NOTE | 2016-12-03 13:48 | CP.CCUPN ---
<Wisam Gray E - Last Filed: 12/03/16 16:01> CCU Subjective - Physician Review Subjective (Free Text): Patient was seen and examined at bedside. Patient admits to morderate pain in his right leg, which is appropriate as he is s/p right common iliac-popliteal bypass with 8mm PTFE and right femoral embolectomy, POD#1. Patient denies chest pain, SOB, palpitations, fever, chills but admits to nausea and vomiting. As per nursing, patient was noted to have coffee-ground emesis. CCU Objective - Vital Signs / Intake & Output Vital Signs (Last 4 hours): Vital Signs Pulse Resp BP Pulse Ox 12/03/16 13:20 106 H 22 120/69 100 12/03/16 13:00 105 H 26 H 100 12/03/16 12:19 99 H 25 H 123/64 100 12/03/16 12:00 101 H 26 H 100 12/03/16 11:19 109 H 26 H 127/69 100 12/03/16 11:00 111 H 25 H 100 12/03/16 10:20 113 H 21 128/67 100 12/03/16 10:00 107 H 21 100 Intake and Output (Last 8hrs): Intake & Output 12/02/16 12/03/16 12/03/16 22:59 06:59 14:59 Intake Total 1151 1042 580 Output Total 550 450 210 Balance 601 592 370 Intake: IV 400 Intake, IV Amount 306 802 550 Left Hand 306 802 550 Oral 120 240 30 Blood Product 325 Output: Urine 550 450 210 Urethral (Montalvo) 450 210 - Physical Exam Head: Positive for: Atraumatic, Normocephalic Extroacular Muscles: Positive for: EOMI Respiratory/Chest: Positive for: Decreased Breath Sounds. Negative for: Respiratory Distress, Accessory Muscle Use Cardiovascular: Positive for: Regular Rate and Rhythm, Murmurs, Normal S1, S2 ( Diminised Bowel sounds, C/D/I ) Abdomen: Positive for: Tenderness, Other Upper Extremity: Positive for: Normal Inspection. Negative for: Edema Lower Extremity: Positive for: Normal Inspection (Right Foot is warm to touch, audible DP and PT pulses with doppler ). Negative for: Edema Neurological: Positive for: GCS=15, Speech Normal Skin: Positive for: Warm Psychiatric: Positive for: Alert, Oriented x 3 - Medications Active Medications: Active Medications Generic Name Dose Route Start Last Admin Trade Name Freq PRN Reason Stop Dose Admin Amlodipine Besylate 10 mg 11/27/16 10:00 12/03/16 09:00 Norvasc PO Not Given DAILY LADONNA Aspirin 325 mg 12/03/16 10:45 Aspirin PO DAILY LADONNA Clopidogrel Bisulfate 75 mg 12/03/16 10:45 Plavix PO DAILY LADONNA Dextrose 0 ml 11/29/16 07:12 11/29/16 07:17 Dextrose 50% Inj IVP 50 ml .STAT PRN Administration Hypoglycemia Protocol Protocol Dextrose 0 gm 11/29/16 07:12 Glutose 15 PO .ONCE PRN Hypoglycemia Protocol Protocol Docusate Sodium 100 mg 11/27/16 14:00 12/03/16 13:33 Colace PO Not Given TID LADONNA Duloxetine HCl 40 mg 11/27/16 22:00 12/02/16 22:46 Cymbalta PO 40 mg HS LADONNA Administration Ferrous Sulfate 325 mg 11/27/16 10:00 12/03/16 09:00 Feosol PO Not Given BID LADONNA Finasteride 5 mg 11/27/16 10:00 12/03/16 09:00 Proscar PO Not Given DAILY LADONNA Fluticasone Propionate 2 spr 11/27/16 10:00 12/03/16 11:50 Flonase EMMA 2 spr DAILY LADONNA Administration Glucagon 0 mg 11/29/16 07:12 Glucagen Diagnostic Kit IM .STAT PRN Hypoglycemia Protocol Protocol Heparin Sodium (Porcine) 5,000 units 12/03/16 10:30 Heparin SC Q12 LADONNA Cefepime HCl 1 gm in 50 mls @ 100 mls/hr 11/27/16 20:00 12/03/16 08:16 Maxipime Iv 1 Gm Premix IVPB 100 mls/hr Q12H LADONNA Administration Vancomycin HCl 150 mls @ 100 mls/hr 12/01/16 00:30 12/02/16 00:58 Vancocin 750mg/D5w 150 Ml IVPB 12/05/16 00:31 100 mls/hr Q12H LADONNA Administration Insulin Human Regular 100 unit 100 mls @ 1.4 mls/hr 12/02/16 13:30 12/02/16 17:29 / Sodium Chloride SC 0 mls .Q24H LADONNA Administration Protocol 0.02 UNIT/KG/HR Acetaminophen 1,000 mg/ 100 mls @ 400 mls/hr 12/03/16 12:00 12/03/16 11:15 Miscellaneous IV 12/04/16 12:01 400 mls/hr Q6 LADONNA Administration Lactated Ringer's 1,000 mls @ 125 mls/hr 12/03/16 09:15 12/03/16 09:30 Lactated Ringer's IV 125 mls/hr .Q8H LADONNA Administration Insulin Detemir 18 unit 12/01/16 17:02 12/02/16 22:55 Levemir SC 18 unit HS LADONNA Administration Insulin Human Regular 6 unit 11/28/16 11:30 12/03/16 12:26 Novolin R SC Not Given ACL LADONNA Insulin Human Regular 6 unit 11/28/16 16:30 12/01/16 17:30 Novolin R SC 6 unit ACD LADONNA Administration Insulin Human Regular 10 unit 11/29/16 07:30 12/03/16 08:45 Novolin R SC Not Given ACB LADONNA Insulin Human Regular 5 unit 12/02/16 13:45 Novolin R IV ONCE LADONNA Insulin Human Regular 0 unit 12/02/16 16:30 12/03/16 11:51 Novolin R SC 4 unit ACHS LADONNA Administration Protocol Lisinopril 10 mg 11/30/16 10:00 12/03/16 09:00 Zestril PO Not Given DAILY [facility] Metoprolol Tartrate 50 mg 11/28/16 10:00 12/03/16 09:00 Lopressor PO Not Given BID [facility] Mirtazapine 30 mg 12/03/16 22:00 Remeron PO HS [facility] Ondansetron HCl 4 mg 11/26/16 23:56 12/03/16 13:40 Zofran Inj IVP 4 mg Q6H PRN Administration Nausea/Vomiting Pantoprazole Sodium 40 mg 12/03/16 12:45 12/03/16 12:52 Protonix Inj IVP 40 mg DAILY LADONNA Administration Rosuvastatin Calcium 10 mg 11/27/16 18:00 12/01/16 19:00 Crestor PO 10 mg QPM LADONNA Administration Saccharomyces Boulardii 250 mg 11/30/16 21:00 12/03/16 09:29 Florastor PO Not Given BID [facility] Tamsulosin HCl 0.4 mg 11/27/16 10:00 12/03/16 09:00 Flomax PO Not Given DAILY [facility]NA Tramadol HCl 50 mg 12/03/16 10:00 12/03/16 10:00 Ultram PO Not Given TID LADONNA - Patient Studies Lab Studies: Microbiology Studies 11/27/16 13:36 Blood Culture - Final Blood-Venous NO GROWTH AFTER 5 DAYS Gram Stain - Final TEST NOT PERFORMED 11/27/16 13:36 Blood Culture - Final Blood-Venous NO GROWTH AFTER 5 DAYS Gram Stain - Final TEST NOT PERFORMED Lab Studies 12/03/16 12/03/16 12/03/16 Range/Units 11:31 07:38 06:19 WBC (4.8-10.8) K/uL RBC (4.40-5.90) Mil/uL Hgb (12.0-18.0) g/dL Hct (35.0-51.0) % MCV (80.0-94.0) fL MCH (27.0-31.0) pg MCHC (33.0-37.0) g/dL RDW (11.5-14.5) % Plt Count (130-400) K/uL MPV (7.2-11.7) fL Neut % (Auto) (50.0-75.0) % Lymph % (Auto) (20.0-40.0) % [place]anan % (Auto) (0.0-10.0) % Eos % (Auto) (0.0-4.0) % Baso % (Auto) (0.0-2.0) % Neut # (1.8-7.0) K/uL Lymph # (1.0-4.3) K/uL [place] # (0.0-0.8) K/uL Eos # (0.0-0.7) K/uL Baso # (0.0-0.2) K/uL Neutrophils % (Manual) (50-75) % Band Neutrophils % (0-2) % Lymphocytes % (Manual) (20-40) % Monocytes % (Manual) (0-10) % Basophils % (Manual) (0-2) % Platelet Estimate (NORMAL) Poikilocytosis (manual Anisocytosis (manual) Ovalocytes [place] Cells Puncture Site pCO2 (35-45) mm/Hg pO2 (80-100) mm/Hg HCO3 (21-28) mmol/L ABG pH (7.35-7.45) ABG Total CO2 (22-28) mmol/L ABG O2 Saturation (95-98) % ABG Base Excess (-2.0-3.0) mmol/L ABG Hemoglobin (11.7-17.4) g/dL ABG Carboxyhemoglobin (0.5-1.5) % POC ABG HHb (Measured) (0.0-5.0) % ABG Methemoglobin (0.0-3.0) % Pawan Test Hgb O2 Saturation (95.0-98.0) % Sodium 134 (132-148) mmol/L Potassium 4.2 (3.6-5.2) mmol/L Chloride 99 (98-107) mmol/L Carbon Dioxide 22 (22-30) mmol/L Anion Gap 17 (10-20) BUN 23 H (9-20) mg/dL Creatinine 1.2 (0.8-1.5) mg/dL Est GFR ( Amer) > 60 Est GFR (Non-Af Amer) > 60 POC Glucose (mg/dL) 216 H 150 H (65-110) mg/dL Random Glucose 116 H (75-110) mg/dL Calcium 8.8 (8.6-10.4) mg/dl Total Bilirubin 0.7 (0.2-1.3) mg/dL AST 44 (17-59) U/L ALT 30 (21-72) U/L Alkaline Phosphatase 68 (38-126) U/L Total Protein 6.3 (6.3-8.3) g/dL Albumin 2.8 L D (3.5-5.0) g/dL Globulin 3.5 (2.2-3.9) gm/dL Albumin/Globulin Ratio 0.8 L (1.0-2.1) Blood Type Antibody Screen 12/03/16 12/02/16 12/02/16 Range/Units 06:15 23:37 21:30 WBC 16.5 H 20.6 H D (4.8-10.8) K/uL RBC 3.35 L 3.56 L (4.40-5.90) Mil/uL Hgb 9.8 L 10.5 L (12.0-18.0) g/dL Hct 28.4 L 30.2 L (35.0-51.0) % MCV 84.7 84.8 (80.0-94.0) fL MCH 29.3 29.4 (27.0-31.0) pg MCHC 34.6 34.7 (33.0-37.0) g/dL RDW 15.6 H 15.4 H (11.5-14.5) % Plt Count 230 235 (130-400) K/uL MPV 7.9 7.0 L (7.2-11.7) fL Neut % (Auto) 88.6 H 89.3 H (50.0-75.0) % Lymph % (Auto) 4.2 L 4.5 L (20.0-40.0) % [place]anan % (Auto) 6.6 5.6 (0.0-10.0) % Eos % (Auto) 0.3 0.3 (0.0-4.0) % Baso % (Auto) 0.3 0.3 (0.0-2.0) % Neut # 14.6 H 18.4 H (1.8-7.0) K/uL Lymph # 0.7 L 0.9 L (1.0-4.3) K/uL [place] # 1.1 H 1.1 H (0.0-0.8) K/uL Eos # 0.1 0.1 (0.0-0.7) K/uL Baso # 0.1 0.1 (0.0-0.2) K/uL Neutrophils % (Manual) 87 H 91 H (50-75) % Band Neutrophils % 5 H 3 H (0-2) % Lymphocytes % (Manual) 3 L 3 L (20-40) % Monocytes % (Manual) 5 2 (0-10) % Basophils % (Manual) 1 (0-2) % Platelet Estimate Normal Normal (NORMAL) Poikilocytosis (manual Slight Anisocytosis (manual) Slight Ovalocytes Slight [place] Cells Slight Puncture Site pCO2 (35-45) mm/Hg pO2 (80-100) mm/Hg HCO3 (21-28) mmol/L ABG pH (7.35-7.45) ABG Total CO2 (22-28) mmol/L ABG O2 Saturation (95-98) % ABG Base Excess (-2.0-3.0) mmol/L ABG Hemoglobin (11.7-17.4) g/dL ABG Carboxyhemoglobin (0.5-1.5) % POC ABG HHb (Measured) (0.0-5.0) % ABG Methemoglobin (0.0-3.0) % Pawan Test Hgb O2 Saturation (95.0-98.0) % Sodium (132-148) mmol/L Potassium (3.6-5.2) mmol/L Chloride (98-107) mmol/L Carbon Dioxide (22-30) mmol/L Anion Gap (10-20) BUN (9-20) mg/dL Creatinine (0.8-1.5) mg/dL Est GFR ( Amer) Est GFR (Non-Af Amer) POC Glucose (mg/dL) 175 H (65-110) mg/dL Random Glucose (75-110) mg/dL Calcium (8.6-10.4) mg/dl Total Bilirubin (0.2-1.3) mg/dL AST (17-59) U/L ALT (21-72) U/L Alkaline Phosphatase (38-126) U/L Total Protein (6.3-8.3) g/dL Albumin (3.5-5.0) g/dL Globulin (2.2-3.9) gm/dL Albumin/Globulin Ratio (1.0-2.1) Blood Type Antibody Screen 12/02/16 12/02/16 12/02/16 Range/Units 21:07 20:12 18:33 WBC (4.8-10.8) K/uL RBC (4.40-5.90) Mil/uL Hgb (12.0-18.0) g/dL Hct (35.0-51.0) % MCV (80.0-94.0) fL MCH (27.0-31.0) pg MCHC (33.0-37.0) g/dL RDW (11.5-14.5) % Plt Count (130-400) K/uL MPV (7.2-11.7) fL Neut % (Auto) (50.0-75.0) % Lymph % (Auto) (20.0-40.0) % [place] % (Auto) (0.0-10.0) % Eos % (Auto) (0.0-4.0) % Baso % (Auto) (0.0-2.0) % Neut # (1.8-7.0) K/uL Lymph # (1.0-4.3) K/uL [place] # (0.0-0.8) K/uL Eos # (0.0-0.7) K/uL Baso # (0.0-0.2) K/uL Neutrophils % (Manual) (50-75) % Band Neutrophils % (0-2) % Lymphocytes % (Manual) (20-40) % Monocytes % (Manual) (0-10) % Basophils % (Manual) (0-2) % Platelet Estimate (NORMAL) Poikilocytosis (manual Anisocytosis (manual) Ovalocytes [place] Cells Puncture Site pCO2 (35-45) mm/Hg pO2 (80-100) mm/Hg HCO3 (21-28) mmol/L ABG pH (7.35-7.45) ABG Total CO2 (22-28) mmol/L ABG O2 Saturation (95-98) % ABG Base Excess (-2.0-3.0) mmol/L ABG Hemoglobin (11.7-17.4) g/dL ABG Carboxyhemoglobin (0.5-1.5) % POC ABG HHb (Measured) (0.0-5.0) % ABG Methemoglobin (0.0-3.0) % Pawan Test Hgb O2 Saturation (95.0-98.0) % Sodium (132-148) mmol/L Potassium (3.6-5.2) mmol/L Chloride (98-107) mmol/L Carbon Dioxide (22-30) mmol/L Anion Gap (10-20) BUN (9-20) mg/dL Creatinine (0.8-1.5) mg/dL Est GFR ( Amer) Est GFR (Non-Af Amer) POC Glucose (mg/dL) 246 H 259 H 272 H (65-110) mg/dL Random Glucose (75-110) mg/dL Calcium (8.6-10.4) mg/dl Total Bilirubin (0.2-1.3) mg/dL AST (17-59) U/L ALT (21-72) U/L Alkaline Phosphatase (38-126) U/L Total Protein (6.3-8.3) g/dL Albumin (3.5-5.0) g/dL Globulin (2.2-3.9) gm/dL Albumin/Globulin Ratio (1.0-2.1) Blood Type Antibody Screen 12/02/16 12/02/16 12/02/16 Range/Units 18:11 16:05 15:14 WBC (4.8-10.8) K/uL RBC (4.40-5.90) Mil/uL Hgb (12.0-18.0) g/dL Hct (35.0-51.0) % MCV (80.0-94.0) fL MCH (27.0-31.0) pg MCHC (33.0-37.0) g/dL RDW (11.5-14.5) % Plt Count (130-400) K/uL MPV (7.2-11.7) fL Neut % (Auto) (50.0-75.0) % Lymph % (Auto) (20.0-40.0) % [place] % (Auto) (0.0-10.0) % Eos % (Auto) (0.0-4.0) % Baso % (Auto) (0.0-2.0) % Neut # (1.8-7.0) K/uL Lymph # (1.0-4.3) K/uL [place] # (0.0-0.8) K/uL Eos # (0.0-0.7) K/uL Baso # (0.0-0.2) K/uL Neutrophils % (Manual) (50-75) % Band Neutrophils % (0-2) % Lymphocytes % (Manual) (20-40) % Monocytes % (Manual) (0-10) % Basophils % (Manual) (0-2) % Platelet Estimate (NORMAL) Poikilocytosis (manual Anisocytosis (manual) Ovalocytes [place] Cells Puncture Site Line pCO2 33 L (35-45) mm/Hg pO2 519 H (80-100) mm/Hg HCO3 22.5 (21-28) mmol/L ABG pH 7.41 (7.35-7.45) ABG Total CO2 21.9 L (22-28) mmol/L ABG O2 Saturation 99.4 H (95-98) % ABG Base Excess -3.2 L (-2.0-3.0) mmol/L ABG Hemoglobin 9.5 L (11.7-17.4) g/dL ABG Carboxyhemoglobin 1.0 (0.5-1.5) % POC ABG HHb (Measured) 0.6 (0.0-5.0) % ABG Methemoglobin 0.8 (0.0-3.0) % Pawan Test Na Hgb O2 Saturation 97.6 (95.0-98.0) % Sodium 130 L (132-148) mmol/L Potassium 4.3 (3.6-5.2) mmol/L Chloride 101 (98-107) mmol/L Carbon Dioxide 17 L (22-30) mmol/L Anion Gap 16 (10-20) BUN 20 (9-20) mg/dL Creatinine 1.1 (0.8-1.5) mg/dL Est GFR ( Amer) > 60 Est GFR (Non-Af Amer) > 60 POC Glucose (mg/dL) 229 H (65-110) mg/dL Random Glucose 229 H (75-110) mg/dL Calcium 9.5 (8.6-10.4) mg/dl Total Bilirubin (0.2-1.3) mg/dL AST (17-59) U/L ALT (21-72) U/L Alkaline Phosphatase (38-126) U/L Total Protein (6.3-8.3) g/dL Albumin (3.5-5.0) g/dL Globulin (2.2-3.9) gm/dL Albumin/Globulin Ratio (1.0-2.1) Blood Type Antibody Screen 12/02/16 12/02/16 12/02/16 Range/Units 15:13 15:10 14:16 WBC (4.8-10.8) K/uL RBC (4.40-5.90) Mil/uL Hgb 9.5 L (12.0-18.0) g/dL Hct 27.8 L (35.0-51.0) % MCV (80.0-94.0) fL MCH (27.0-31.0) pg MCHC (33.0-37.0) g/dL RDW (11.5-14.5) % Plt Count (130-400) K/uL MPV (7.2-11.7) fL Neut % (Auto) (50.0-75.0) % Lymph % (Auto) (20.0-40.0) % [place] % (Auto) (0.0-10.0) % Eos % (Auto) (0.0-4.0) % Baso % (Auto) (0.0-2.0) % Neut # (1.8-7.0) K/uL Lymph # (1.0-4.3) K/uL [place] # (0.0-0.8) K/uL Eos # (0.0-0.7) K/uL Baso # (0.0-0.2) K/uL Neutrophils % (Manual) (50-75) % Band Neutrophils % (0-2) % Lymphocytes % (Manual) (20-40) % Monocytes % (Manual) (0-10) % Basophils % (Manual) (0-2) % Platelet Estimate (NORMAL) Poikilocytosis (manual Anisocytosis (manual) Ovalocytes [place] Cells Puncture Site pCO2 (35-45) mm/Hg pO2 (80-100) mm/Hg HCO3 (21-28) mmol/L ABG pH (7.35-7.45) ABG Total CO2 (22-28) mmol/L ABG O2 Saturation (95-98) % ABG Base Excess (-2.0-3.0) mmol/L ABG Hemoglobin (11.7-17.4) g/dL ABG Carboxyhemoglobin (0.5-1.5) % POC ABG HHb (Measured) (0.0-5.0) % ABG Methemoglobin (0.0-3.0) % Pawan Test Hgb O2 Saturation (95.0-98.0) % Sodium (132-148) mmol/L Potassium (3.6-5.2) mmol/L Chloride (98-107) mmol/L Carbon Dioxide (22-30) mmol/L Anion Gap (10-20) BUN (9-20) mg/dL Creatinine (0.8-1.5) mg/dL Est GFR ( Amer) Est GFR (Non-Af Amer) POC Glucose (mg/dL) 242 H 262 H (65-110) mg/dL Random Glucose (75-110) mg/dL Calcium (8.6-10.4) mg/dl Total Bilirubin (0.2-1.3) mg/dL AST (17-59) U/L ALT (21-72) U/L Alkaline Phosphatase (38-126) U/L Total Protein (6.3-8.3) g/dL Albumin (3.5-5.0) g/dL Globulin (2.2-3.9) gm/dL Albumin/Globulin Ratio (1.0-2.1) Blood Type Antibody Screen 12/01/16 Range/Units 07:47 WBC (4.8-10.8) K/uL RBC (4.40-5.90) Mil/uL Hgb (12.0-18.0) g/dL Hct (35.0-51.0) % MCV (80.0-94.0) fL MCH (27.0-31.0) pg MCHC (33.0-37.0) g/dL RDW (11.5-14.5) % Plt Count (130-400) K/uL MPV (7.2-11.7) fL Neut % (Auto) (50.0-75.0) % Lymph % (Auto) (20.0-40.0) % [place] % (Auto) (0.0-10.0) % Eos % (Auto) (0.0-4.0) % Baso % (Auto) (0.0-2.0) % Neut # (1.8-7.0) K/uL Lymph # (1.0-4.3) K/uL [place] # (0.0-0.8) K/uL Eos # (0.0-0.7) K/uL Baso # (0.0-0.2) K/uL Neutrophils % (Manual) (50-75) % Band Neutrophils % (0-2) % Lymphocytes % (Manual) (20-40) % Monocytes % (Manual) (0-10) % Basophils % (Manual) (0-2) % Platelet Estimate (NORMAL) Poikilocytosis (manual Anisocytosis (manual) Ovalocytes [place] Cells Puncture Site pCO2 (35-45) mm/Hg pO2 (80-100) mm/Hg HCO3 (21-28) mmol/L ABG pH (7.35-7.45) ABG Total CO2 (22-28) mmol/L ABG O2 Saturation (95-98) % ABG Base Excess (-2.0-3.0) mmol/L ABG Hemoglobin (11.7-17.4) g/dL ABG Carboxyhemoglobin (0.5-1.5) % POC ABG HHb (Measured) (0.0-5.0) % ABG Methemoglobin (0.0-3.0) % Pawan Test Hgb O2 Saturation (95.0-98.0) % Sodium (132-148) mmol/L Potassium (3.6-5.2) mmol/L Chloride (98-107) mmol/L Carbon Dioxide (22-30) mmol/L Anion Gap (10-20) BUN (9-20) mg/dL Creatinine (0.8-1.5) mg/dL Est GFR ( Amer) Est GFR (Non-Af Amer) POC Glucose (mg/dL) (65-110) mg/dL Random Glucose (75-110) mg/dL Calcium (8.6-10.4) mg/dl Total Bilirubin (0.2-1.3) mg/dL AST (17-59) U/L ALT (21-72) U/L Alkaline Phosphatase (38-126) U/L Total Protein (6.3-8.3) g/dL Albumin (3.5-5.0) g/dL Globulin (2.2-3.9) gm/dL Albumin/Globulin Ratio (1.0-2.1) Blood Type O POSITIVE Antibody Screen Negative Laboratory Results - last 24 hr 12/01/16 12/02/16 12/02/16 07:47 14:16 15:10 WBC RBC Hgb Hct MCV MCH MCHC RDW Plt Count MPV Neut % (Auto) Lymph % (Auto) [place] % (Auto) Eos % (Auto) Baso % (Auto) Neut # Lymph # [place] # Eos # Baso # Neutrophils % (Manual) Band Neutrophils % Lymphocytes % (Manual) Monocytes % (Manual) Basophils % (Manual) Platelet Estimate Poikilocytosis (manual Anisocytosis (manual) Ovalocytes [place] Cells Puncture Site pCO2 pO2 HCO3 ABG pH ABG Total CO2 ABG O2 Saturation ABG Base Excess ABG Hemoglobin ABG Carboxyhemoglobin POC ABG HHb (Measured) ABG Methemoglobin Pawan Test Hgb O2 Saturation Sodium Potassium Chloride Carbon Dioxide Anion Gap BUN Creatinine Est GFR ( Amer) Est GFR (Non-Af Amer) POC Glucose (mg/dL) 262 H 242 H Random Glucose Calcium Total Bilirubin AST ALT Alkaline Phosphatase Total Protein Albumin Globulin Albumin/Globulin Ratio Blood Type O POSITIVE Antibody Screen Negative 12/02/16 12/02/16 12/02/16 15:13 15:14 16:05 WBC RBC Hgb 9.5 L Hct 27.8 L MCV MCH MCHC RDW Plt Count MPV Neut % (Auto) Lymph % (Auto) [place] % (Auto) Eos % (Auto) Baso % (Auto) Neut # Lymph # [place] # Eos # Baso # Neutrophils % (Manual) Band Neutrophils % Lymphocytes % (Manual) Monocytes % (Manual) Basophils % (Manual) Platelet Estimate Poikilocytosis (manual Anisocytosis (manual) Ovalocytes [place] Cells Puncture Site Line pCO2 33 L pO2 519 H HCO3 22.5 ABG pH 7.41 ABG Total CO2 21.9 L ABG O2 Saturation 99.4 H ABG Base Excess -3.2 L ABG Hemoglobin 9.5 L ABG Carboxyhemoglobin 1.0 POC ABG HHb (Measured) 0.6 ABG Methemoglobin 0.8 Pawan Test Na Hgb O2 Saturation 97.6 Sodium Potassium Chloride Carbon Dioxide Anion Gap BUN Creatinine Est GFR ( Amer) Est GFR (Non-Af Amer) POC Glucose (mg/dL) 229 H Random Glucose Calcium Total Bilirubin AST ALT Alkaline Phosphatase Total Protein Albumin Globulin Albumin/Globulin Ratio Blood Type Antibody Screen 12/02/16 12/02/16 12/02/16 18:11 18:33 20:12 WBC RBC Hgb Hct MCV MCH MCHC RDW Plt Count MPV Neut % (Auto) Lymph % (Auto) [place] % (Auto) Eos % (Auto) Baso % (Auto) Neut # Lymph # [place] # Eos # Baso # Neutrophils % (Manual) Band Neutrophils % Lymphocytes % (Manual) Monocytes % (Manual) Basophils % (Manual) Platelet Estimate Poikilocytosis (manual Anisocytosis (manual) Ovalocytes [place] Cells Puncture Site pCO2 pO2 HCO3 ABG pH ABG Total CO2 ABG O2 Saturation ABG Base Excess ABG Hemoglobin ABG Carboxyhemoglobin POC ABG HHb (Measured) ABG Methemoglobin Pawan Test Hgb O2 Saturation Sodium 130 L Potassium 4.3 Chloride 101 Carbon Dioxide 17 L Anion Gap 16 BUN 20 Creatinine 1.1 Est GFR ( Amer) > 60 Est GFR (Non-Af Amer) > 60 POC Glucose (mg/dL) 272 H 259 H Random Glucose 229 H Calcium 9.5 Total Bilirubin AST ALT Alkaline Phosphatase Total Protein Albumin Globulin Albumin/Globulin Ratio Blood Type Antibody Screen 12/02/16 12/02/16 12/02/16 21:07 21:30 23:37 WBC 20.6 H D RBC 3.56 L Hgb 10.5 L Hct 30.2 L MCV 84.8 MCH 29.4 MCHC 34.7 RDW 15.4 H Plt Count 235 MPV 7.0 L Neut % (Auto) 89.3 H Lymph % (Auto) 4.5 L [place] % (Auto) 5.6 Eos % (Auto) 0.3 Baso % (Auto) 0.3 Neut # 18.4 H Lymph # 0.9 L [place] # 1.1 H Eos # 0.1 Baso # 0.1 Neutrophils % (Manual) 91 H Band Neutrophils % 3 H Lymphocytes % (Manual) 3 L Monocytes % (Manual) 2 Basophils % (Manual) 1 Platelet Estimate Normal Poikilocytosis (manual Anisocytosis (manual) Ovalocytes [place] Cells Puncture Site pCO2 pO2 HCO3 ABG pH ABG Total CO2 ABG O2 Saturation ABG Base Excess ABG Hemoglobin ABG Carboxyhemoglobin POC ABG HHb (Measured) ABG Methemoglobin [place] Test Hgb O2 Saturation Sodium Potassium Chloride Carbon Dioxide Anion Gap BUN Creatinine Est GFR ( Amer) Est GFR (Non-Af Amer) POC Glucose (mg/dL) 246 H 175 H Random Glucose Calcium Total Bilirubin AST ALT Alkaline Phosphatase Total Protein Albumin Globulin Albumin/Globulin Ratio Blood Type Antibody Screen 12/03/16 12/03/16 12/03/16 06:15 06:19 07:38 WBC 16.5 H RBC 3.35 L Hgb 9.8 L Hct 28.4 L MCV 84.7 MCH 29.3 MCHC 34.6 RDW 15.6 H Plt Count 230 MPV 7.9 Neut % (Auto) 88.6 H Lymph % (Auto) 4.2 L [place] % (Auto) 6.6 Eos % (Auto) 0.3 Baso % (Auto) 0.3 Neut # 14.6 H Lymph # 0.7 L [place] # 1.1 H Eos # 0.1 Baso # 0.1 Neutrophils % (Manual) 87 H Band Neutrophils % 5 H Lymphocytes % (Manual) 3 L Monocytes % (Manual) 5 Basophils % (Manual) Platelet Estimate Normal Poikilocytosis (manual Slight Anisocytosis (manual) Slight Ovalocytes Slight [place] Cells Slight Puncture Site pCO2 pO2 HCO3 ABG pH ABG Total CO2 ABG O2 Saturation ABG Base Excess ABG Hemoglobin ABG Carboxyhemoglobin POC ABG HHb (Measured) ABG Methemoglobin [place] Test Hgb O2 Saturation Sodium 134 Potassium 4.2 Chloride 99 Carbon Dioxide 22 Anion Gap 17 BUN 23 H Creatinine 1.2 Est GFR ( Amer) > 60 Est GFR (Non-Af Amer) > 60 POC Glucose (mg/dL) 150 H Random Glucose 116 H Calcium 8.8 Total Bilirubin 0.7 AST 44 ALT 30 Alkaline Phosphatase 68 Total Protein 6.3 Albumin 2.8 L D Globulin 3.5 Albumin/Globulin Ratio 0.8 L Blood Type Antibody Screen 12/03/16 11:31 WBC RBC Hgb Hct MCV MCH MCHC RDW Plt Count MPV Neut % (Auto) Lymph % (Auto) [place] % (Auto) Eos % (Auto) Baso % (Auto) Neut # Lymph # [place] # Eos # Baso # Neutrophils % (Manual) Band Neutrophils % Lymphocytes % (Manual) Monocytes % (Manual) Basophils % (Manual) Platelet Estimate Poikilocytosis (manual Anisocytosis (manual) Ovalocytes [place] Cells Puncture Site pCO2 pO2 HCO3 ABG pH ABG Total CO2 ABG O2 Saturation ABG Base Excess ABG Hemoglobin ABG Carboxyhemoglobin POC ABG HHb (Measured) ABG Methemoglobin [place] Test Hgb O2 Saturation Sodium Potassium Chloride Carbon Dioxide Anion Gap BUN Creatinine Est GFR ( Amer) Est GFR (Non-Af Amer) POC Glucose (mg/dL) 216 H Random Glucose Calcium Total Bilirubin AST ALT Alkaline Phosphatase Total Protein Albumin Globulin Albumin/Globulin Ratio Blood Type Antibody Screen Fingerstick Blood Sugar Results: 216 Review of Systems - Constitutional Constitutional: absent: Fever, Chills, Sweats, Weakness - EENT Eyes: absent: Blurred Vision, Change in Vision Ears: absent: Dizziness - Cardiovascular Cardiovascular: Lightheadedness. absent: Chest Pain, Diaphoresis, Dyspnea, Palpitations - Respiratory Respiratory: absent: Dyspnea - Gastrointestinal Gastrointestinal: Nausea, Vomiting. absent: Abdominal Pain, Cramping - Musculoskeletal Musculoskeletal: absent: Numbness, Tingling - Endocrine Endocrine: absent: Palpitations Critical Care Progress Note - Nutrition Nutrition: Nutrition Category Date Time Status Heart Healthy Diet [DIET] Diets 12/02/16 Dinner Active Assessment/Plan - Assessment and Plan (Free Text) Assessment: Patient is a 70 year old male with past medical history of peripheral artery disease, carotid stenosis s/p carotid endarterectomy, ruptured right femoral pseudoaneurysm, dilated common bile duct, DM, HTN, bacteremia, depression. Patient had an emergent repair of ruptured right femoral artery pseudo- aneurysm with proximal ligatation and removal of femoral artery stent and patch (11/27/16). Currently, patient is s/p Right common iliac-popliteal bypass with 8mm PTFE and right femoral embolectomy POD#1 Patient was transfused 3 units PRBC post-operatively. Patient was transferred to the ICU for close post-op care Plan: Neuro: Alert, awake and oriented Vascular: Hx of PVD, S/P emergent repair of ruptured right femoral artery pseudo -aneurysm with proximal ligatation and removal of femoral artery stent and patch (11/27/16) and currently, patient is s/p Right common iliac-popliteal bypass with 8mm PTFE and right femoral embolectomy POD#1 Medication/Management * Crestor 10mg PO HS * Plavix 75mg PO daily * Dilaudid 1mg and 0.5mg IVP Q3H prn for pain control Cardio: Hx of HTN Medication/Management: * Norvasc 10mg PO daily * Lopressor 50mg PO BID * Lisinopril 10mg PO daily GI: Acute Coffee-Ground emesis, History of constipation and pancreatitis GI consult, Dr. Layton---> Help appreciated Medication: * Aspirin 81mg PO and plavix 75mg PO daily (Held due to coffee- ground emesis) * Colace 100 mg PO TID * Endo: Hx of DM * Accuchecks * Levemir 18 units SC HS * Human regular 6 unit SC ACL * Human regular 6 unit SC ACD * Human regular 10 unit SC ACB * ISS- low dose protocol * Hypoglycemia protocol : Hx of BPH Medications/Management: * Flomax 0.4mg PO daily * Proscar 5mg PO daily Heme: History of anemia * H/H stable, transfused 3 units post-operatively Medication/Management: * Ferrous Sulfate 325mg PO BID ID: Leukocytosis, Bandemia, Hx of bactremia ID Consult, Dr. Herrera on board----> Help appreciated * Wound culture ( E.coli) - 11/27/16 Medications: * Vancomycin 1,000mg IVPN Q12H (Held due to elevated vanc trough) * Cefepime 1gm IVPB q12h Psych: Hx of depression Medication: Duloxetine 40mg PO HS Mirtazapine 30mg PO HS Prophylaxis: DVT: Heparin 5,000 units SC Q12H GI: Pepcid 20mg IVP Q12H, Zofran 4mg IVP Q6H prn Florastor 250mg PO BID <Javier Keating S - Last Filed: 12/03/16 17:42> CCU Objective - Vital Signs / Intake & Output Vital Signs (Last 4 hours): Vital Signs Temp Pulse Resp BP Pulse Ox 12/03/16 17:20 100 H 25 H 125/67 96 12/03/16 17:00 102 H 17 98 12/03/16 16:20 106 H 22 132/69 99 12/03/16 16:00 98.2 F 110 H 22 98 12/03/16 15:20 101 H 25 H 133/67 93 L 12/03/16 15:00 102 H 25 H 89 L 12/03/16 14:20 112 H 20 12/03/16 14:00 109 H 20 81 L Intake and Output (Last 8hrs): Intake & Output 12/03/16 12/03/16 12/03/16 06:59 14:59 22:59 Intake Total 1042 705 375 Output Total 450 250 140 Balance 592 455 235 Intake: Intake, IV Amount 802 675 375 Left Hand 802 675 375 Oral 240 30 Output: Urine 450 250 140 Urethral ([place]) 450 250 140 - Medications Active Medications: Active Medications Generic Name Dose Route Start Last Admin Trade Name Freq PRN Reason Stop Dose Admin Amlodipine Besylate 10 mg 11/27/16 10:00 12/03/16 09:00 Norvasc PO Not Given DAILY [facility] Aspirin 325 mg 12/03/16 10:45 12/03/16 15:22 Aspirin PO Not Given DAILY [facility] Clopidogrel Bisulfate 75 mg 12/03/16 10:45 12/03/16 15:22 Plavix PO Not Given DAILY [facility] Dextrose 0 ml 11/29/16 07:12 11/29/16 07:17 Dextrose 50% Inj IVP 50 ml .STAT PRN Administration Hypoglycemia Protocol Protocol Dextrose 0 gm 11/29/16 07:12 Glutose 15 PO .ONCE PRN Hypoglycemia Protocol Protocol Docusate Sodium 100 mg 11/27/16 14:00 12/03/16 17:33 Colace PO 100 mg TID [facility] Administration Duloxetine HCl 40 mg 11/27/16 22:00 12/02/16 22:46 Cymbalta PO 40 mg HS [facility] Administration Famotidine 20 mg 12/03/16 22:00 Pepcid IVP Q12 [facility] Ferrous Sulfate 325 mg 11/27/16 10:00 12/03/16 17:32 Feosol PO 325 mg BID [facility] Administration Finasteride 5 mg 11/27/16 10:00 12/03/16 09:00 Proscar PO Not Given DAILY [facility] Fluticasone Propionate 2 spr 11/27/16 10:00 12/03/16 11:50 Flonase EMMA 2 spr DAILY [facility] Administration Glucagon 0 mg 11/29/16 07:12 Glucagen Diagnostic Kit IM .STAT PRN Hypoglycemia Protocol Protocol Heparin Sodium (Porcine) 5,000 units 12/03/16 22:00 Heparin SC Q12 [facility] Cefepime HCl 1 gm in 50 mls @ 100 mls/hr 11/27/16 20:00 12/03/16 08:16 Maxipime Iv 1 Gm Premix IVPB 100 mls/hr Q12H [facility] Administration Vancomycin HCl 150 mls @ 100 mls/hr 12/01/16 00:30 12/02/16 00:58 Vancocin 750mg/D5w 150 Ml IVPB 12/05/16 00:31 100 mls/hr Q12H [facility] Administration Acetaminophen 1,000 mg/ 100 mls @ 400 mls/hr 12/03/16 12:00 12/03/16 11:15 Miscellaneous IV 10/12/17 12:01 400 mls/hr Q6 [facility] Administration Lactated Ringer's 1,000 mls @ 125 mls/hr 12/03/16 09:15 12/03/16 17:36 Lactated Ringer's IV 125 mls/hr .Q8H [facility] Administration Insulin Detemir 18 unit 12/01/16 17:02 12/02/16 22:55 Levemir SC 18 unit HS [facility] Administration Insulin Human Regular 6 unit 11/28/16 11:30 12/03/16 12:26 Novolin R SC Not Given ACL [facility] Insulin Human Regular 6 unit 11/28/16 16:30 12/03/16 17:05 Novolin R SC Not Given ACD [facility] Insulin Human Regular 10 unit 11/29/16 07:30 12/03/16 08:45 Novolin R SC Not Given ACB [facility] Insulin Human Regular 5 unit 12/02/16 13:45 Novolin R IV ONCE [facility] Insulin Human Regular 0 unit 12/02/16 16:30 12/03/16 17:09 Novolin R SC 6 unit ACHS [facility] Administration Protocol Lisinopril 10 mg 11/30/16 10:00 12/03/16 09:00 Zestril PO Not Given DAILY [facility] Metoprolol Tartrate 50 mg 11/28/16 10:00 12/03/16 17:32 Lopressor PO 50 mg BID [facility] Administration Mirtazapine 30 mg 12/03/16 22:00 Remeron PO HS [facility] Ondansetron HCl 4 mg 11/26/16 23:56 12/03/16 13:40 Zofran Inj IVP 4 mg Q6H PRN Administration Nausea/Vomiting Rosuvastatin Calcium 10 mg 11/27/16 18:00 12/03/16 17:32 Crestor PO 10 mg QPM [facility] Administration Saccharomyces Boulardii 250 mg 11/30/16 21:00 12/03/16 17:33 Florastor PO 250 mg BID [facility] Administration Tamsulosin HCl 0.4 mg 11/27/16 10:00 12/03/16 09:00 Flomax PO Not Given DAILY [facility] Tramadol HCl 50 mg 12/03/16 10:00 12/03/16 17:33 Ultram PO 50 mg TID [facility] Administration - Patient Studies Lab Studies: Lab Studies 1012/03/16 12/03/16 Range/Units 16:20 15:03 14:47 WBC (4.8-10.8) K/uL RBC (4.40-5.90) Mil/uL Hgb (12.0-18.0) g/dL Hct (35.0-51.0) % MCV (80.0-94.0) fL MCH (27.0-31.0) pg MCHC (33.0-37.0) g/dL RDW (11.5-14.5) % Plt Count (130-400) K/uL MPV (7.2-11.7) fL Neut % (Auto) (50.0-75.0) % Lymph % (Auto) (20.0-40.0) % [place] % (Auto) (0.0-10.0) % Eos % (Auto) (0.0-4.0) % Baso % (Auto) (0.0-2.0) % Neut # (1.8-7.0) K/uL Lymph # (1.0-4.3) K/uL [place] # (0.0-0.8) K/uL Eos # (0.0-0.7) K/uL Baso # (0.0-0.2) K/uL Neutrophils % (Manual) (50-75) % Band Neutrophils % (0-2) % Lymphocytes % (Manual) (20-40) % Reactive Lymphs % (0-0) % Monocytes % (Manual) (0-10) % Basophils % (Manual) (0-2) % Platelet Estimate (NORMAL) Hypochromasia (manual) Poikilocytosis (manual Anisocytosis (manual) Ovalocytes [place] Cells PT 13.1 H (9.7-12.2) SECONDS INR 1.1 Sodium (132-148) mmol/L Potassium (3.6-5.2) mmol/L Chloride (98-107) mmol/L Carbon Dioxide (22-30) mmol/L Anion Gap (10-20) BUN (9-20) mg/dL Creatinine (0.8-1.5) mg/dL Est GFR ( Amer) Est GFR (Non-Af Amer) POC Glucose (mg/dL) 255 H (65-110) mg/dL Random Glucose (75-110) mg/dL Calcium (8.6-10.4) mg/dl Total Bilirubin (0.2-1.3) mg/dL AST (17-59) U/L ALT (21-72) U/L Alkaline Phosphatase (38-126) U/L Total Protein (6.3-8.3) g/dL Albumin (3.5-5.0) g/dL Globulin (2.2-3.9) gm/dL Albumin/Globulin Ratio (1.0-2.1) Random Vancomycin 13.99 ug/mL Blood Type Antibody Screen 12/03/16 12/03/16 12/03/16 Range/Units 14:47 11:31 07:38 WBC 20.4 H (4.8-10.8) K/uL RBC 3.12 L (4.40-5.90) Mil/uL Hgb 9.1 L (12.0-18.0) g/dL Hct 27.1 L (35.0-51.0) % MCV 87.0 D (80.0-94.0) fL MCH 29.2 (27.0-31.0) pg MCHC 33.5 (33.0-37.0) g/dL RDW 15.3 H (11.5-14.5) % Plt Count 212 (130-400) K/uL MPV 7.7 (7.2-11.7) fL Neut % (Auto) 91.6 H (50.0-75.0) % Lymph % (Auto) 2.5 L (20.0-40.0) % [place] % (Auto) 5.2 (0.0-10.0) % Eos % (Auto) 0.1 (0.0-4.0) % Baso % (Auto) 0.6 (0.0-2.0) % Neut # 18.6 H (1.8-7.0) K/uL Lymph # 0.5 L (1.0-4.3) K/uL [place] # 1.1 H (0.0-0.8) K/uL Eos # 0.0 (0.0-0.7) K/uL Baso # 0.1 (0.0-0.2) K/uL Neutrophils % (Manual) 90 H (50-75) % Band Neutrophils % 2 (0-2) % Lymphocytes % (Manual) 3 L (20-40) % Reactive Lymphs % 1 H (0-0) % Monocytes % (Manual) 4 (0-10) % Basophils % (Manual) (0-2) % Platelet Estimate Normal (NORMAL) Hypochromasia (manual) Slight Poikilocytosis (manual Slight Anisocytosis (manual) Slight Ovalocytes Slight [place] Cells PT (9.7-12.2) SECONDS INR Sodium (132-148) mmol/L Potassium (3.6-5.2) mmol/L Chloride (98-107) mmol/L Carbon Dioxide (22-30) mmol/L Anion Gap (10-20) BUN (9-20) mg/dL Creatinine (0.8-1.5) mg/dL Est GFR ( Amer) Est GFR (Non-Af Amer) POC Glucose (mg/dL) 216 H 150 H (65-110) mg/dL Random Glucose (75-110) mg/dL Calcium (8.6-10.4) mg/dl Total Bilirubin (0.2-1.3) mg/dL AST (17-59) U/L ALT (21-72) U/L Alkaline Phosphatase (38-126) U/L Total Protein (6.3-8.3) g/dL Albumin (3.5-5.0) g/dL Globulin (2.2-3.9) gm/dL Albumin/Globulin Ratio (1.0-2.1) Random Vancomycin ug/mL Blood Type Antibody Screen 12/03/16 12/03/16 12/02/16 Range/Units 06:19 06:15 23:37 WBC 16.5 H (4.8-10.8) K/uL RBC 3.35 L (4.40-5.90) Mil/uL Hgb 9.8 L (12.0-18.0) g/dL Hct 28.4 L (35.0-51.0) % MCV 84.7 (80.0-94.0) fL MCH 29.3 (27.0-31.0) pg MCHC 34.6 (33.0-37.0) g/dL RDW 15.6 H (11.5-14.5) % Plt Count 230 (130-400) K/uL MPV 7.9 (7.2-11.7) fL Neut % (Auto) 88.6 H (50.0-75.0) % Lymph % (Auto) 4.2 L (20.0-40.0) % [place] % (Auto) 6.6 (0.0-10.0) % Eos % (Auto) 0.3 (0.0-4.0) % Baso % (Auto) 0.3 (0.0-2.0) % Neut # 14.6 H (1.8-7.0) K/uL Lymph # 0.7 L (1.0-4.3) K/uL [place] # 1.1 H (0.0-0.8) K/uL Eos # 0.1 (0.0-0.7) K/uL Baso # 0.1 (0.0-0.2) K/uL Neutrophils % (Manual) 87 H (50-75) % Band Neutrophils % 5 H (0-2) % Lymphocytes % (Manual) 3 L (20-40) % Reactive Lymphs % (0-0) % Monocytes % (Manual) 5 (0-10) % Basophils % (Manual) (0-2) % Platelet Estimate Normal (NORMAL) Hypochromasia (manual) Poikilocytosis (manual Slight Anisocytosis (manual) Slight Ovalocytes Slight [place] Cells Slight PT (9.7-12.2) SECONDS INR Sodium 134 (132-148) mmol/L Potassium 4.2 (3.6-5.2) mmol/L Chloride 99 (98-107) mmol/L Carbon Dioxide 22 (22-30) mmol/L Anion Gap 17 (10-20) BUN 23 H (9-20) mg/dL Creatinine 1.2 (0.8-1.5) mg/dL Est GFR ( Amer) > 60 Est GFR (Non-Af Amer) > 60 POC Glucose (mg/dL) 175 H (65-110) mg/dL Random Glucose 116 H (75-110) mg/dL Calcium 8.8 (8.6-10.4) mg/dl Total Bilirubin 0.7 (0.2-1.3) mg/dL AST 44 (17-59) U/L ALT 30 (21-72) U/L Alkaline Phosphatase 68 (38-126) U/L Total Protein 6.3 (6.3-8.3) g/dL Albumin 2.8 L D (3.5-5.0) g/dL Globulin 3.5 (2.2-3.9) gm/dL Albumin/Globulin Ratio 0.8 L (1.0-2.1) Random Vancomycin ug/mL Blood Type Antibody Screen 12/02/16 12/02/16 12/02/16 Range/Units 21:30 21:07 20:12 WBC 20.6 H D (4.8-10.8) K/uL RBC 3.56 L (4.40-5.90) Mil/uL Hgb 10.5 L (12.0-18.0) g/dL Hct 30.2 L (35.0-51.0) % MCV 84.8 (80.0-94.0) fL MCH 29.4 (27.0-31.0) pg MCHC 34.7 (33.0-37.0) g/dL RDW 15.4 H (11.5-14.5) % Plt Count 235 (130-400) K/uL MPV 7.0 L (7.2-11.7) fL Neut % (Auto) 89.3 H (50.0-75.0) % Lymph % (Auto) 4.5 L (20.0-40.0) % [place] % (Auto) 5.6 (0.0-10.0) % Eos % (Auto) 0.3 (0.0-4.0) % Baso % (Auto) 0.3 (0.0-2.0) % Neut # 18.4 H (1.8-7.0) K/uL Lymph # 0.9 L (1.0-4.3) K/uL [place] # 1.1 H (0.0-0.8) K/uL Eos # 0.1 (0.0-0.7) K/uL Baso # 0.1 (0.0-0.2) K/uL Neutrophils % (Manual) 91 H (50-75) % Band Neutrophils % 3 H (0-2) % Lymphocytes % (Manual) 3 L (20-40) % Reactive Lymphs % (0-0) % Monocytes % (Manual) 2 (0-10) % Basophils % (Manual) 1 (0-2) % Platelet Estimate Normal (NORMAL) Hypochromasia (manual) Poikilocytosis (manual Anisocytosis (manual) Ovalocytes [place] Cells PT (9.7-12.2) SECONDS INR Sodium (132-148) mmol/L Potassium (3.6-5.2) mmol/L Chloride (98-107) mmol/L Carbon Dioxide (22-30) mmol/L Anion Gap (10-20) BUN (9-20) mg/dL Creatinine (0.8-1.5) mg/dL Est GFR ( Amer) Est GFR (Non-Af Amer) POC Glucose (mg/dL) 246 H 259 H (65-110) mg/dL Random Glucose (75-110) mg/dL Calcium (8.6-10.4) mg/dl Total Bilirubin (0.2-1.3) mg/dL AST (17-59) U/L ALT (21-72) U/L Alkaline Phosphatase (38-126) U/L Total Protein (6.3-8.3) g/dL Albumin (3.5-5.0) g/dL Globulin (2.2-3.9) gm/dL Albumin/Globulin Ratio (1.0-2.1) Random Vancomycin ug/mL Blood Type Antibody Screen 12/02/16 12/02/16 12/01/16 Range/Units 18:33 18:11 07:47 WBC (4.8-10.8) K/uL RBC (4.40-5.90) Mil/uL Hgb (12.0-18.0) g/dL Hct (35.0-51.0) % MCV (80.0-94.0) fL MCH (27.0-31.0) pg MCHC (33.0-37.0) g/dL RDW (11.5-14.5) % Plt Count (130-400) K/uL MPV (7.2-11.7) fL Neut % (Auto) (50.0-75.0) % Lymph % (Auto) (20.0-40.0) % [place] % (Auto) (0.0-10.0) % Eos % (Auto) (0.0-4.0) % Baso % (Auto) (0.0-2.0) % Neut # (1.8-7.0) K/uL Lymph # (1.0-4.3) K/uL [place] # (0.0-0.8) K/uL Eos # (0.0-0.7) K/uL Baso # (0.0-0.2) K/uL Neutrophils % (Manual) (50-75) % Band Neutrophils % (0-2) % Lymphocytes % (Manual) (20-40) % Reactive Lymphs % (0-0) % Monocytes % (Manual) (0-10) % Basophils % (Manual) (0-2) % Platelet Estimate (NORMAL) Hypochromasia (manual) Poikilocytosis (manual Anisocytosis (manual) Ovalocytes [place] Cells PT (9.7-12.2) SECONDS INR Sodium 130 L (132-148) mmol/L Potassium 4.3 (3.6-5.2) mmol/L Chloride 101 (98-107) mmol/L Carbon Dioxide 17 L (22-30) mmol/L Anion Gap 16 (10-20) BUN 20 (9-20) mg/dL Creatinine 1.1 (0.8-1.5) mg/dL Est GFR ( Amer) > 60 Est GFR (Non-Af Amer) > 60 POC Glucose (mg/dL) 272 H (65-110) mg/dL Random Glucose 229 H (75-110) mg/dL Calcium 9.5 (8.6-10.4) mg/dl Total Bilirubin (0.2-1.3) mg/dL AST (17-59) U/L ALT (21-72) U/L Alkaline Phosphatase (38-126) U/L Total Protein (6.3-8.3) g/dL Albumin (3.5-5.0) g/dL Globulin (2.2-3.9) gm/dL Albumin/Globulin Ratio (1.0-2.1) Random Vancomycin ug/mL Blood Type O POSITIVE Antibody Screen Negative Laboratory Results - last 24 hr 12/01/16 12/02/16 12/02/16 07:47 18:11 18:33 WBC RBC Hgb Hct MCV MCH MCHC RDW Plt Count MPV Neut % (Auto) Lymph % (Auto) [place] % (Auto) Eos % (Auto) Baso % (Auto) Neut # Lymph # [place] # Eos # Baso # Neutrophils % (Manual) Band Neutrophils % Lymphocytes % (Manual) Reactive Lymphs % Monocytes % (Manual) Basophils % (Manual) Platelet Estimate Hypochromasia (manual) Poikilocytosis (manual Anisocytosis (manual) Ovalocytes [place] Cells PT INR Sodium 130 L Potassium 4.3 Chloride 101 Carbon Dioxide 17 L Anion Gap 16 BUN 20 Creatinine 1.1 Est GFR ( Amer) > 60 Est GFR (Non-Af Amer) > 60 POC Glucose (mg/dL) 272 H Random Glucose 229 H Calcium 9.5 Total Bilirubin AST ALT Alkaline Phosphatase Total Protein Albumin Globulin Albumin/Globulin Ratio Random Vancomycin Blood Type O POSITIVE Antibody Screen Negative 12/02/16 12/02/16 12/02/16 20:12 21:07 21:30 WBC 20.6 H D RBC 3.56 L Hgb 10.5 L Hct 30.2 L MCV 84.8 MCH 29.4 MCHC 34.7 RDW 15.4 H Plt Count 235 MPV 7.0 L Neut % (Auto) 89.3 H Lymph % (Auto) 4.5 L [place] % (Auto) 5.6 Eos % (Auto) 0.3 Baso % (Auto) 0.3 Neut # 18.4 H Lymph # 0.9 L [place] # 1.1 H Eos # 0.1 Baso # 0.1 Neutrophils % (Manual) 91 H Band Neutrophils % 3 H Lymphocytes % (Manual) 3 L Reactive Lymphs % Monocytes % (Manual) 2 Basophils % (Manual) 1 Platelet Estimate Normal Hypochromasia (manual) Poikilocytosis (manual Anisocytosis (manual) Ovalocytes [place] Cells PT INR Sodium Potassium Chloride Carbon Dioxide Anion Gap BUN Creatinine Est GFR ( Amer) Est GFR (Non-Af Amer) POC Glucose (mg/dL) 259 H 246 H Random Glucose Calcium Total Bilirubin AST ALT Alkaline Phosphatase Total Protein Albumin Globulin Albumin/Globulin Ratio Random Vancomycin Blood Type Antibody Screen 12/02/16 12/03/16 12/03/16 23:37 06:15 06:19 WBC 16.5 H RBC 3.35 L Hgb 9.8 L Hct 28.4 L MCV 84.7 MCH 29.3 MCHC 34.6 RDW 15.6 H Plt Count 230 MPV 7.9 Neut % (Auto) 88.6 H Lymph % (Auto) 4.2 L [place] % (Auto) 6.6 Eos % (Auto) 0.3 Baso % (Auto) 0.3 Neut # 14.6 H Lymph # 0.7 L [place] # 1.1 H Eos # 0.1 Baso # 0.1 Neutrophils % (Manual) 87 H Band Neutrophils % 5 H Lymphocytes % (Manual) 3 L Reactive Lymphs % Monocytes % (Manual) 5 Basophils % (Manual) Platelet Estimate Normal Hypochromasia (manual) Poikilocytosis (manual Slight Anisocytosis (manual) Slight Ovalocytes Slight [place] Cells Slight PT INR Sodium 134 Potassium 4.2 Chloride 99 Carbon Dioxide 22 Anion Gap 17 BUN 23 H Creatinine 1.2 Est GFR ( Amer) > 60 Est GFR (Non-Af Amer) > 60 POC Glucose (mg/dL) 175 H Random Glucose 116 H Calcium 8.8 Total Bilirubin 0.7 AST 44 ALT 30 Alkaline Phosphatase 68 Total Protein 6.3 Albumin 2.8 L D Globulin 3.5 Albumin/Globulin Ratio 0.8 L Random Vancomycin Blood Type Antibody Screen 12/03/16 12/03/16 12/03/16 07:38 11:31 14:47 WBC 20.4 H RBC 3.12 L Hgb 9.1 L Hct 27.1 L MCV 87.0 D MCH 29.2 MCHC 33.5 RDW 15.3 H Plt Count 212 MPV 7.7 Neut % (Auto) 91.6 H Lymph % (Auto) 2.5 L [place] % (Auto) 5.2 Eos % (Auto) 0.1 Baso % (Auto) 0.6 Neut # 18.6 H Lymph # 0.5 L [place] # 1.1 H Eos # 0.0 Baso # 0.1 Neutrophils % (Manual) 90 H Band Neutrophils % 2 Lymphocytes % (Manual) 3 L Reactive Lymphs % 1 H Monocytes % (Manual) 4 Basophils % (Manual) Platelet Estimate Normal Hypochromasia (manual) Slight Poikilocytosis (manual Slight Anisocytosis (manual) Slight Ovalocytes Slight [place] Cells PT INR Sodium Potassium Chloride Carbon Dioxide Anion Gap BUN Creatinine Est GFR ( Amer) Est GFR (Non-Af Amer) POC Glucose (mg/dL) 150 H 216 H Random Glucose Calcium Total Bilirubin AST ALT Alkaline Phosphatase Total Protein Albumin Globulin Albumin/Globulin Ratio Random Vancomycin Blood Type Antibody Screen 12/03/16 12/03/16 12/03/16 14:47 15:03 16:20 WBC RBC Hgb Hct MCV MCH MCHC RDW Plt Count MPV Neut % (Auto) Lymph % (Auto) [place] % (Auto) Eos % (Auto) Baso % (Auto) Neut # Lymph # [place] # Eos # Baso # Neutrophils % (Manual) Band Neutrophils % Lymphocytes % (Manual) Reactive Lymphs % Monocytes % (Manual) Basophils % (Manual) Platelet Estimate Hypochromasia (manual) Poikilocytosis (manual Anisocytosis (manual) Ovalocytes [place] Cells PT 13.1 H INR 1.1 Sodium Potassium Chloride Carbon Dioxide Anion Gap BUN Creatinine Est GFR ( Amer) Est GFR (Non-Af Amer) POC Glucose (mg/dL) 255 H Random Glucose Calcium Total Bilirubin AST ALT Alkaline Phosphatase Total Protein Albumin Globulin Albumin/Globulin Ratio Random Vancomycin 13.99 Blood Type Antibody Screen Critical Care Progress Note - Nutrition Nutrition: Nutrition Category Date Time Status Heart Healthy Diet [DIET] Diets 12/02/16 Dinner Active Attending/Attestation - Attestation I have personally seen and examined this patient.: Yes I have fully participated in the care of the patient.: Yes I have reviewed all pertinent clinical information: Yes Notes (Text): 12/03/16 17:40 Patient is seen and examined in the intensive care unit. Case discussed with staff in the morning. 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
--- NOTE | 2016-12-03 14:24 | CP.PCM.PN ---
Subjective - Date & Time of Evaluation Date of Evaluation: 12/03/16 Time of Evaluation: 14:20 - Subjective Subjective: Medical Attending (Medicine Consult) Patient seen and examined at bedside this afternoon. Patient at bedside has pink container wherein visible coffee ground emesis, appears bloody. Spoke with patient at bedside, patient has a prior history of pancreatitis secondary alcoholism. Patient reports he stopped to drinking about 10-15 years ago. Patient reports he used to see GI in [place], and required colonoscopy. Patient reports he used to have pancreatitis and had coffee ground emesis in the past. Objective - Vital Signs/Intake and Output Vital Signs (last 24 hours): Temp Pulse Resp BP Pulse Ox 98.3 F 106 H 22 120/69 100 12/03/16 12:00 12/03/16 13:20 12/03/16 13:20 12/03/16 13:20 12/03/16 13:20 Intake and Output: 12/03/16 12/03/16 06:59 18:59 Intake Total 1668 580 Output Total 450 210 Balance 1218 370 - Medications Medications: Current Medications Amlodipine Besylate (Norvasc) 10 mg PO DAILY [facility] Last Admin: 12/03/16 09:00 Dose: Not Given Aspirin (Aspirin) 325 mg PO DAILY [facility] Clopidogrel Bisulfate (Plavix) 75 mg PO DAILY [facility] Dextrose (Dextrose 50% Inj) 0 ml IVP .STAT PRN; Protocol PRN Reason: Hypoglycemia Protocol Last Admin: 11/29/16 07:17 Dose: 50 ml Dextrose (Glutose 15) 0 gm PO .ONCE PRN; Protocol PRN Reason: Hypoglycemia Protocol Docusate Sodium (Colace) 100 mg PO TID [facility] Last Admin: 12/03/16 13:33 Dose: Not Given Duloxetine HCl (Cymbalta) 40 mg PO HS [facility] Last Admin: 12/02/16 22:46 Dose: 40 mg Ferrous Sulfate (Feosol) 325 mg PO BID [facility] Last Admin: 12/03/16 09:00 Dose: Not Given Finasteride (Proscar) 5 mg PO DAILY [facility] Last Admin: 12/03/16 09:00 Dose: Not Given Fluticasone Propionate (Flonase) 2 spr EMMA DAILY [facility] Last Admin: 12/03/16 11:50 Dose: 2 spr Glucagon (Glucagen Diagnostic Kit) 0 mg IM .STAT PRN; Protocol PRN Reason: Hypoglycemia Protocol Heparin Sodium (Porcine) (Heparin) 5,000 units SC Q12 [facility] Cefepime HCl (Maxipime Iv 1 Gm Premix) 1 gm in 50 mls @ 100 mls/hr IVPB Q12H [facility] Last Admin: 12/03/16 08:16 Dose: 100 mls/hr Vancomycin HCl (Vancocin 750mg/D5w 150 Ml) 150 mls @ 100 mls/hr IVPB Q12H [facility] Stop: 12/05/16 00:31 Last Admin: 12/02/16 00:58 Dose: 100 mls/hr Insulin Human Regular 100 unit (/ Sodium Chloride) 100 mls @ 1.4 mls/hr SC .Q24H [facility]; 0.02 UNIT/KG/HR PRN Reason: Protocol Last Admin: 12/02/16 17:29 Dose: 0 mls Acetaminophen 1,000 mg/ (Miscellaneous) 100 mls @ 400 mls/hr IV Q6 [facility] Stop: 12/04/16 12:01 Last Admin: 12/03/16 11:15 Dose: 400 mls/hr Lactated Ringer's (Lactated Ringer's) 1,000 mls @ 125 mls/hr IV .Q8H [facility] Last Admin: 12/03/16 09:30 Dose: 125 mls/hr Insulin Detemir (Levemir) 18 unit SC HS [facility] Last Admin: 12/02/16 22:55 Dose: 18 unit Insulin Human Regular (Novolin R) 6 unit SC ACL [facility] Last Admin: 12/03/16 12:26 Dose: Not Given Insulin Human Regular (Novolin R) 6 unit SC ACD [facility] Last Admin: 12/01/16 17:30 Dose: 6 unit Insulin Human Regular (Novolin R) 10 unit SC ACB [facility] Last Admin: 12/03/16 08:45 Dose: Not Given Insulin Human Regular (Novolin R) 5 unit IV ONCE [facility] Insulin Human Regular (Novolin R) 0 unit SC ACHS [facility] PRN Reason: Protocol Last Admin: 12/03/16 11:51 Dose: 4 unit Lisinopril (Zestril) 10 mg PO DAILY [facility] Last Admin: 12/03/16 09:00 Dose: Not Given Metoprolol Tartrate (Lopressor) 50 mg PO BID [facility] Last Admin: 12/03/16 09:00 Dose: Not Given Mirtazapine (Remeron) 30 mg PO HS [facility] Ondansetron HCl (Zofran Inj) 4 mg IVP Q6H PRN PRN Reason: Nausea/Vomiting Last Admin: 12/03/16 13:40 Dose: 4 mg Pantoprazole Sodium (Protonix Inj) 40 mg IVP DAILY [facility] Last Admin: 12/03/16 12:52 Dose: 40 mg Rosuvastatin Calcium (Crestor) 10 mg PO QPM [facility] Last Admin: 12/01/16 19:00 Dose: 10 mg Saccharomyces Boulardii (Florastor) 250 mg PO BID [facility] Last Admin: 12/03/16 09:29 Dose: Not Given Tamsulosin HCl (Flomax) 0.4 mg PO DAILY [facility] Last Admin: 12/03/16 09:00 Dose: Not Given Tramadol HCl (Ultram) 50 mg PO TID [facility] Last Admin: 12/03/16 10:00 Dose: Not Given - Labs Labs: 12/03/16 06:15 12/03/16 06:19 PT 11.2 SECONDS (9.7-12.2) 12/01/16 07:51 INR 1.0 12/01/16 07:51 APTT 41 SECONDS (21-34) H 12/01/16 07:51 - Constitutional Appears: In Acute Distress, Unkempt - Head Exam Head Exam: NORMAL INSPECTION - Eye Exam Eye Exam: EOMI - ENT Exam ENT Exam: Mucous Membranes Dry - Respiratory Exam Respiratory Exam: NORMAL BREATHING PATTERN. absent: Rales, Rhonchi, Wheezes, Stridor - Cardiovascular Exam Cardiovascular Exam: REGULAR RHYTHM, +S1, +S2 - GI/Abdominal Exam GI & Abdominal Exam: Distended, Soft, Hypoactive Bowel Sounds. absent: Firm, Guarding, Rigid, Rebound Additional comments: surgical site: soaked, betadiene Has english place - Exam Additional comments: Has English - Extremities Exam Additional comments: Right lower extremity: no scds, patient's foot feels warm left lower extremity; scds, no edema, no cyanosis, no clubbing - Neurological Exam Neurological Exam: Alert, Awake, Oriented x3 - Psychiatric Exam Psychiatric exam: Normal Affect, Normal Mood - Skin Skin Exam: Dry, Intact, Normal Color, Warm Assessment and Plan - Assessment and Plan (Free Text) Assessment: Medicine Consult Note 70yo M with ruptured infected right femoral artery pseudo-aneurysm s/p emergent repair of ruptured right femoral artery pseudo-aneurysm with proximal ligatation and removal of femoral artery stent and patch POD#6, and now s/p Right common iliac-popliteal bypass with 8mm PTFE and right femoral embolectomy POD#1 Post-operative rise leukocytosis s/p 3 units of PRBCC intraoperative Monitor H/H-->patient had coffee ground emesis today; recommended Radha to hold aspirin/plavix; patient with prior hx of alcohol induced pancreatitis; with prior hx of coffee ground emesis about 10-15 years ago, he does not see GI current. Repeated CBC/INR in light of coffee ground emesis; informed surgery and ICU. ordered for random vancomycin level-->vanco held yesterday secondary to elevated trough Assessment/Plan (1) S/P aneurysm repair Assessment and Plan: -POD # 6 S/P emergent repair of ruptured right femoral artery pseudo-aneurysm with proximal ligatation and removal of femoral artery stent and patch; ruptured pseudo-aneurysm (possibly infected) on 11/27/[address] Lorenzo. - POD #1 s/p Right common iliac-popliteal bypass with 8mm PTFE and right femoral embolectomy POD#1 Vascular Surgeon, Dr Lorenzo is the Primary on the case Infectious Disease, Dr Herrera, consulted- help appreciated * Right Groin Wound Culture 11/27/16-->E . Coli and MRSA * Wound culture: 11/27/16-->E. Coli * Blood Culture 11/27/16 shows no growth 5 days X2 * Pain control with Hydromorphone * Vancomycin 750 gm IV Q12h (12/01/16)--->elevated vancomycin trough; held vanco light of trough 12/02; random vancomycin level * Cefepime 1 gm IV Q12H (11/27/16-ON) Status: Acute (2) Elevated alkaline phosphatase level Assessment and Plan: * Resolved * Per chart review, patient with Hx Dilated CBD * On prior admission patient was advised to follow up with outpatient elective cholecystectomy (3) STEVEN (acute kidney injury) Assessment and Plan: * Resolved * Will continue to monitor * vanco held in light of elevated trough on 12/02 Status: Acute (4) Hyponatremia * This has resolved * Monitor (5) Acidosis likely Metabolic * Could be secondary to recent surgery vs possible infected right femoral artery catheter which was removed vs compounded by the use of Glipizide for DM 2 * Patient is off Vancomycin and Cefepime * Glipizide has been discontinued * This has resolved (6) Abdominal Bruit * Abdominal Aorta U/S ordered on 11/27/16 was discontinued as patient had Abdominal Angiography performed on 10/21/16 and this did NOT show Abdominal Aneurysm. Please see full report for finding of Right Femoral Artery Pseudoaneurysm. (7) History of Diabetes Mellitus 2 Assessment and Plan: * RISS - medium dose * Holding Glipizide because of the acidosis upon admission * Continue home Insulin Regimen: * Levemir 36 Units SC HS--->to give 1/2 dose tonight prior to OR (18 units subHS) and resume full dose post OR, Regular Insulin (Lispro not carried by our pharmacy) 10 Units SC ACB and 6 Units SC ACLD * Continue Accuchecks ACHS * Rosuvastatin 10mg PO HS * Lisinopril 10mg PO daily Status: Chronic (8) History Hypertension Assessment and Plan: * BP elevations noted * Off Lisinopril 10mg PO daily on 11/30/16 * off Amlodipine 10mg PO 1x/day * off Metoprolol tartrate 25mg PO 2x/day was increased to 50 mg PO 2x/day with holding parameters 11/28/16 * Continue to monitor q6h Status: Chronic (9) History of anemia Assessment and Plan: * HgB/Hct are stable * Ferrous Sulfate 325mg PO 2x/day Status: Chronic (10) History Chronic pancreatitis Assessment and Plan: * Creon [id number] PO TID AC Meals not carried by our pharmacy therefore equilavent dose of Pacreaze Status: Chronic (11) History of depression Assessment and Plan: * Duloxetine 40mg PO HS * Mirtazapine 30mg PO HS Status: Chronic (12) History of BPH Assessment and Plan: * Finasteride 5mg PO 1x/day * Flomax 0.4 mg PO 1x/day Status: Chronic (13) History of Constipation * Colace 100 mg PO TID * Monitor bowel movement (14) Prophylactic measure Assessment and Plan: * GI: pepcid 20mg PO q12h * DVT: Patient is heparin dvt per vascular surgery; recommend holding aspirin/ plavix * Diet: Heart healthy, diabetic diet
[2016-12-03 15:00] LABS: BASO # 0.1 K/uL (0.0-0.2); BASO % 0.6 % (0.0-2.0); EOS % 0.1 % (0.0-4.0); HEMATOCRIT 27.1 % (35.0-51.0); LYMPH # 0.5 K/uL (1.0-4.3); LYMPH % 2.5 % (20.0-40.0); MEAN CORPUSCULAR HEMOGLOBIN 29.2 pg (27.0-31.0); MEAN CORPUSCULAR HGB CONC 33.5 g/dL (33.0-37.0); MEAN PLATELET VOLUME 7.7 fL (7.2-11.7); MONO # 1.1 K/uL (0.0-0.8); MONO % 5.2 % (0.0-10.0); PLATELET COUNT 212 K/uL (130-400); RED CELL DISTRIBUTION WIDTH 15.3 % (11.5-14.5); WHITE BLOOD COUNT 20.4 K/uL (4.8-10.8)
[2016-12-03 15:01] LABS: INR 1.1
[2016-12-03] MEDS: Insulin Human Regular 100 UNIT in Sodium Chloride 0.9% 99 ML SC SCH (15:38)
[2016-12-03 15:40] LABS: NEUTROPHIL 90 % (50-75); REACTIVE LYMPHOCYTES 1 % (0-0); TOTAL CELLS COUNTED 100
--- NOTE | 2016-12-03 17:03 | CP.PCM.PN ---
Subjective - Date & Time of Evaluation Date of Evaluation: 12/03/16 Time of Evaluation: 10:00 - Subjective Subjective: s/p right common iliac-popliteal bypass with 8mm PTFE and right femoral embolectomy, POD#1. IV rx reordered Objective - Vital Signs/Intake and Output Vital Signs (last 24 hours): Temp Pulse Resp BP Pulse Ox 98.2 F 110 H 22 133/67 98 12/03/16 16:00 12/03/16 16:00 12/03/16 16:00 12/03/16 15:20 12/03/16 16:00 Intake and Output: 12/03/16 12/03/16 06:59 18:59 Intake Total 1668 955 Output Total 450 340 Balance 1218 615 - Medications Medications: Current Medications Amlodipine Besylate (Norvasc) 10 mg PO DAILY [facility] Last Admin: 12/03/16 09:00 Dose: Not Given Aspirin (Aspirin) 325 mg PO DAILY [facility] Last Admin: 12/03/16 15:22 Dose: Not Given Clopidogrel Bisulfate (Plavix) 75 mg PO DAILY [facility] Last Admin: 12/03/16 15:22 Dose: Not Given Dextrose (Dextrose 50% Inj) 0 ml IVP .STAT PRN; Protocol PRN Reason: Hypoglycemia Protocol Last Admin: 11/29/16 07:17 Dose: 50 ml Dextrose (Glutose 15) 0 gm PO .ONCE PRN; Protocol PRN Reason: Hypoglycemia Protocol Docusate Sodium (Colace) 100 mg PO TID [facility] Last Admin: 12/03/16 13:33 Dose: Not Given Duloxetine HCl (Cymbalta) 40 mg PO HS [facility] Last Admin: 12/02/16 22:46 Dose: 40 mg Famotidine (Pepcid) 20 mg IVP Q12 [facility] Ferrous Sulfate (Feosol) 325 mg PO BID [facility] Last Admin: 12/03/16 09:00 Dose: Not Given Finasteride (Proscar) 5 mg PO DAILY [facility] Last Admin: 12/03/16 09:00 Dose: Not Given Fluticasone Propionate (Flonase) 2 spr EMMA DAILY [facility] Last Admin: 12/03/16 11:50 Dose: 2 spr Glucagon (Glucagen Diagnostic Kit) 0 mg IM .STAT PRN; Protocol PRN Reason: Hypoglycemia Protocol Heparin Sodium (Porcine) (Heparin) 5,000 units SC Q12 [facility] Cefepime HCl (Maxipime Iv 1 Gm Premix) 1 gm in 50 mls @ 100 mls/hr IVPB Q12H [facility] Last Admin: 12/03/16 08:16 Dose: 100 mls/hr Vancomycin HCl (Vancocin 750mg/D5w 150 Ml) 150 mls @ 100 mls/hr IVPB Q12H [facility] Stop: 12/05/16 00:31 Last Admin: 12/02/16 00:58 Dose: 100 mls/hr Acetaminophen 1,000 mg/ (Miscellaneous) 100 mls @ 400 mls/hr IV Q6 [facility] Stop: 12/04/16 12:01 Last Admin: 12/03/16 11:15 Dose: 400 mls/hr Lactated Ringer's (Lactated Ringer's) 1,000 mls @ 125 mls/hr IV .Q8H [facility] Last Admin: 12/03/16 09:30 Dose: 125 mls/hr Insulin Detemir (Levemir) 18 unit SC HS [facility] Last Admin: 12/02/16 22:55 Dose: 18 unit Insulin Human Regular (Novolin R) 6 unit SC ACL [facility] Last Admin: 12/03/16 12:26 Dose: Not Given Insulin Human Regular (Novolin R) 6 unit SC ACD [facility] Last Admin: 12/01/16 17:30 Dose: 6 unit Insulin Human Regular (Novolin R) 10 unit SC ACB [facility] Last Admin: 12/03/16 08:45 Dose: Not Given Insulin Human Regular (Novolin R) 5 unit IV ONCE [facility] Insulin Human Regular (Novolin R) 0 unit SC ACHS [facility] PRN Reason: Protocol Last Admin: 12/03/16 11:51 Dose: 4 unit Lisinopril (Zestril) 10 mg PO DAILY [facility] Last Admin: 12/03/16 09:00 Dose: Not Given Metoprolol Tartrate (Lopressor) 50 mg PO BID [facility] Last Admin: 12/03/16 09:00 Dose: Not Given Mirtazapine (Remeron) 30 mg PO HS [facility] Ondansetron HCl (Zofran Inj) 4 mg IVP Q6H PRN PRN Reason: Nausea/Vomiting Last Admin: 12/03/16 13:40 Dose: 4 mg Rosuvastatin Calcium (Crestor) 10 mg PO QPM [facility] Last Admin: 12/01/16 19:00 Dose: 10 mg Saccharomyces Boulardii (Florastor) 250 mg PO BID [facility] Last Admin: 12/03/16 09:29 Dose: Not Given Tamsulosin HCl (Flomax) 0.4 mg PO DAILY [facility] Last Admin: 12/03/16 09:00 Dose: Not Given Tramadol HCl (Ultram) 50 mg PO TID [facility] Last Admin: 12/03/16 13:00 Dose: Not Given - Labs Labs: 12/03/16 14:47 12/03/16 06:19 PT 13.1 SECONDS (9.7-12.2) H 12/03/16 14:47 INR 1.1 12/03/16 14:47 APTT 41 SECONDS (21-34) H 12/01/16 07:51 - Constitutional Appears: Non-toxic, Chronically Ill - Head Exam Head Exam: NORMOCEPHALIC - Eye Exam Eye Exam: PERRL. absent: Scleral icterus - ENT Exam ENT Exam: Mucous Membranes Dry - Neck Exam Neck Exam: absent: Lymphadenopathy - Respiratory Exam Respiratory Exam: Decreased Breath Sounds - Cardiovascular Exam Cardiovascular Exam: REGULAR RHYTHM - GI/Abdominal Exam GI & Abdominal Exam: Distended, Soft - Rectal Exam Rectal Exam: Deferred - Exam Exam: NORMAL INSPECTION Assessment and Plan (1) Femoral artery aneurysm, right Status: Acute (2) H/O ruptured arterial aneurysm Status: Resolved (3) S/P aneurysm repair Status: Acute
--- NOTE | 2016-12-03 17:29 | CP.PCM.CON ---
<Mary Norris - Last Filed: 12/03/16 18:08> History of Present Illness - History of Present Illness History of Present Illness: Gastroenterology Fellow/PGY5 Consult Note 70 year old male with history of Hypertension, Diabetes, chronic pancreatitis, Depression, PAD presenting with groin pain. Patient describes acute groin pain and bleeding due to ruptured right femoral pseudoaneurysm at previous stent and patch. Patient has since underwent right iliac-popliteal bypass and embolectomy with initiation of Aspirin/Plavix. GI consultation for coffee-ground emesis. Patient describes two episodes of vomiting brown liquid today with specks of brown particles. He admits to eating cherries yesterday. Denies abdominal pain, hematemesis, diarrhea, constipation, melena, hematochezia. Admits to 30 pound unintentional weight loss in last eight months. Endorses prior colonoscopy ten years ago with polyps and recommendation for five year follow up at [facility] or [facility]. No prior endoscopy. Family- denies colon cancer Social -used all illicit drugs in 20-30s years of age, 3ppd since 1964, quit ETOH 10 years ago- prior heavy alcohol use Surgery- right hand surgery, foot surgery in 20s Review of Systems - Review of Systems Review of Systems: 12-point review of systems negative except for as above Past Patient History - Infectious Disease Hx of Infectious Diseases: None - Tetanus Immunizations Tetanus Immunization: Unknown - Past Medical History & Family History Past Medical History?: Yes - Past Social History Smoking Status: Heavy Smoker > 10 Cigarettes Daily - CARDIAC Hx Hypertension: Yes - PULMONARY Hx Respiratory Disorders: No - NEUROLOGICAL Hx Vertigo: Yes - HEENT Other/Comment: glasses for reading - RENAL Hx Chronic Kidney Disease: No - ENDOCRINE/METABOLIC Hx Diabetes Mellitus Type 1: Yes - HEMATOLOGICAL/ONCOLOGICAL Hx Anemia: Yes - INTEGUMENTARY Hx Dermatological Problems: No - MUSCULOSKELETAL/RHEUMATOLOGICAL Hx Arthritis: Yes - GASTROINTESTINAL Hx Crohn's Disease: No Hx Diverticulitis: No Hx Gall Bladder Disease: Yes Hx Gastritis: No Hx Pancreatitis: Yes - GENITOURINARY/GYNECOLOGICAL Hx Prostate Problems: Yes (BPH) - PSYCHIATRIC Hx Depression: Yes Hx Substance Use: Yes - SURGICAL HISTORY Hx Carotid Endarterectomy: Yes (L [facility]) - ANESTHESIA Hx Anesthesia: Yes Hx Anesthesia Reactions: No Hx Malignant Hyperthermia: No Meds Allergies/Adverse Reactions: Allergies Allergy/AdvReac Type Severity Reaction Status Date / Time No Known Allergies Allergy Verified 10/23/16 14:42 - Medications Medications: Current Medications Amlodipine Besylate (Norvasc) 10 mg PO DAILY [facility] Last Admin: 12/03/16 09:00 Dose: Not Given Aspirin (Aspirin) 325 mg PO DAILY [facility] Last Admin: 12/03/16 15:22 Dose: Not Given Clopidogrel Bisulfate (Plavix) 75 mg PO DAILY [facility] Last Admin: 12/03/16 15:22 Dose: Not Given Dextrose (Dextrose 50% Inj) 0 ml IVP .STAT PRN; Protocol PRN Reason: Hypoglycemia Protocol Last Admin: 11/29/16 07:17 Dose: 50 ml Dextrose (Glutose 15) 0 gm PO .ONCE PRN; Protocol PRN Reason: Hypoglycemia Protocol Docusate Sodium (Colace) 100 mg PO TID [facility] Last Admin: 12/03/16 13:33 Dose: Not Given Duloxetine HCl (Cymbalta) 40 mg PO HS [facility] Last Admin: 12/02/16 22:46 Dose: 40 mg Famotidine (Pepcid) 20 mg IVP Q12 [facility] Ferrous Sulfate (Feosol) 325 mg PO BID [facility] Last Admin: 12/03/16 09:00 Dose: Not Given Finasteride (Proscar) 5 mg PO DAILY [facility] Last Admin: 12/03/16 09:00 Dose: Not Given Fluticasone Propionate (Flonase) 2 spr [facility]MA DAILY [facility] Last Admin: 12/03/16 11:50 Dose: 2 spr Glucagon (Glucagen Diagnostic Kit) 0 mg IM .STAT PRN; Protocol PRN Reason: Hypoglycemia Protocol Heparin Sodium (Porcine) (Heparin) 5,000 units SC Q12 [facility] Cefepime HCl (Maxipime Iv 1 Gm Premix) 1 gm in 50 mls @ 100 mls/hr IVPB Q12H [facility] Last Admin: 12/03/16 08:16 Dose: 100 mls/hr Vancomycin HCl (Vancocin 750mg/D5w 150 Ml) 150 mls @ 100 mls/hr IVPB Q12H [facility] Stop: 12/05/16 00:31 Last Admin: 12/02/16 00:58 Dose: 100 mls/hr Acetaminophen 1,000 mg/ (Miscellaneous) 100 mls @ 400 mls/hr IV Q6 [facility] Stop: 12/04/16 12:01 Last Admin: 12/03/16 11:15 Dose: 400 mls/hr Lactated Ringer's (Lactated Ringer's) 1,000 mls @ 125 mls/hr IV .Q8H [facility] Last Admin: 12/03/16 09:30 Dose: 125 mls/hr Insulin Detemir (Levemir) 18 unit SC HS [facility] Last Admin: 12/02/16 22:55 Dose: 18 unit Insulin Human Regular (Novolin R) 6 unit SC ACL [facility] Last Admin: 12/03/16 12:26 Dose: Not Given Insulin Human Regular (Novolin R) 6 unit SC ACD [facility] Last Admin: 12/03/16 17:05 Dose: Not Given Insulin Human Regular (Novolin R) 10 unit SC ACB [facility] Last Admin: 12/03/16 08:45 Dose: Not Given Insulin Human Regular (Novolin R) 5 unit IV ONCE [place] Insulin Human Regular (Novolin R) 0 unit SC ACHS [facility] PRN Reason: Protocol Last Admin: 12/03/16 17:09 Dose: 6 unit Lisinopril (Zestril) 10 mg PO DAILY [facility] Last Admin: 12/03/16 09:00 Dose: Not Given Metoprolol Tartrate (Lopressor) 50 mg PO BID [facility] Last Admin: 12/03/16 09:00 Dose: Not Given Mirtazapine (Remeron) 30 mg PO [facility] Ondansetron HCl (Zofran Inj) 4 mg IVP Q6H PRN PRN Reason: Nausea/Vomiting Last Admin: 12/03/16 13:40 Dose: 4 mg Rosuvastatin Calcium (Crestor) 10 mg PO QPM [facility] Last Admin: 12/01/16 19:00 Dose: 10 mg Saccharomyces Boulardii (Florastor) 250 mg PO BID [facility] Last Admin: 12/03/16 09:29 Dose: Not Given Tamsulosin HCl (Flomax) 0.4 mg PO DAILY [facility] Last Admin: 12/03/16 09:00 Dose: Not Given Tramadol HCl (Ultram) 50 mg PO TID [facility] Last Admin: 12/03/16 13:00 Dose: Not Given Physical Exam - Constitutional Appears: Non-toxic, No Acute Distress - Head Exam Head Exam: ATRAUMATIC, NORMOCEPHALIC - Eye Exam Eye Exam: EOMI, PERRL Pupil Exam: PERRL. absent: Miosis, Mydriatic - ENT Exam ENT Exam: Mucous Membranes Moist, TM's Normal Bilaterally - Neck Exam Neck exam: Positive for: Full Rom, Normal Inspection - Respiratory Exam Respiratory Exam: Clear to Auscultation Bilateral. absent: Rales, Rhonchi, Wheezes - Cardiovascular Exam Cardiovascular Exam: Tachycardia, +S1, +S2 - GI/Abdominal Exam GI & Abdominal Exam: Normal Bowel Sounds, Soft. absent: Distended, Firm, Guarding, Rebound, Rigid, Tenderness - Extremities Exam Extremities exam: Positive for: pedal pulses present. Negative for: pedal edema Additional comments: right groin dressing in place C/D/I - Neurological Exam Neurological exam: Alert - Psychiatric Exam Psychiatric exam: Normal Affect, Normal Mood - Skin Skin Exam: Dry, Intact, Normal Color, Warm Results - Vital Signs Recent Vital Signs: Last Vital Signs Temp 98.2 F 12/03/16 16:00 Pulse 100 H 12/03/16 17:20 Resp 25 H 12/03/16 17:20 BP 125/67 12/03/16 17:20 Pulse Ox 96 12/03/16 17:20 - Labs Result Diagrams: 12/03/16 14:47 12/03/16 06:19 Labs: Laboratory Results - last 24 hr 12/01/16 12/02/16 12/02/16 07:47 18:11 18:33 WBC RBC Hgb Hct MCV MCH MCHC RDW Plt Count MPV Neut % (Auto) Lymph % (Auto) [place] % (Auto) Eos % (Auto) Baso % (Auto) Neut # Lymph # [place] # Eos # Baso # Neutrophils % (Manual) Band Neutrophils % Lymphocytes % (Manual) Reactive Lymphs % Monocytes % (Manual) Basophils % (Manual) Platelet Estimate Hypochromasia (manual) Poikilocytosis (manual Anisocytosis (manual) Ovalocytes [place] Cells PT INR Sodium 130 L Potassium 4.3 Chloride 101 Carbon Dioxide 17 L Anion Gap 16 BUN 20 Creatinine 1.1 Est GFR ( Amer) > 60 Est GFR (Non-Af Amer) > 60 POC Glucose (mg/dL) 272 H Random Glucose 229 H Calcium 9.5 Total Bilirubin AST ALT Alkaline Phosphatase Total Protein Albumin Globulin Albumin/Globulin Ratio Random Vancomycin Blood Type O POSITIVE Antibody Screen Negative 12/02/16 12/02/16 12/02/16 20:12 21:07 21:30 WBC 20.6 H D RBC 3.56 L Hgb 10.5 L Hct 30.2 L MCV 84.8 MCH 29.4 MCHC 34.7 RDW 15.4 H Plt Count 235 MPV 7.0 L Neut % (Auto) 89.3 H Lymph % (Auto) 4.5 L [place] % (Auto) 5.6 Eos % (Auto) 0.3 Baso % (Auto) 0.3 Neut # 18.4 H Lymph # 0.9 L [place] # 1.1 H Eos # 0.1 Baso # 0.1 Neutrophils % (Manual) 91 H Band Neutrophils % 3 H Lymphocytes % (Manual) 3 L Reactive Lymphs % Monocytes % (Manual) 2 Basophils % (Manual) 1 Platelet Estimate Normal Hypochromasia (manual) Poikilocytosis (manual Anisocytosis (manual) Ovalocytes [place] Cells PT INR Sodium Potassium Chloride Carbon Dioxide Anion Gap BUN Creatinine Est GFR ( Amer) Est GFR (Non-Af Amer) POC Glucose (mg/dL) 259 H 246 H Random Glucose Calcium Total Bilirubin AST ALT Alkaline Phosphatase Total Protein Albumin Globulin Albumin/Globulin Ratio Random Vancomycin Blood Type Antibody Screen 12/02/16 12/03/16 12/03/16 23:37 06:15 06:19 WBC 16.5 H RBC 3.35 L Hgb 9.8 L Hct 28.4 L MCV 84.7 MCH 29.3 MCHC 34.6 RDW 15.6 H Plt Count 230 MPV 7.9 Neut % (Auto) 88.6 H Lymph % (Auto) 4.2 L [place] % (Auto) 6.6 Eos % (Auto) 0.3 Baso % (Auto) 0.3 Neut # 14.6 H Lymph # 0.7 L [place] # 1.1 H Eos # 0.1 Baso # 0.1 Neutrophils % (Manual) 87 H Band Neutrophils % 5 H Lymphocytes % (Manual) 3 L Reactive Lymphs % Monocytes % (Manual) 5 Basophils % (Manual) Platelet Estimate Normal Hypochromasia (manual) Poikilocytosis (manual Slight Anisocytosis (manual) Slight Ovalocytes Slight [place] Cells Slight PT INR Sodium 134 Potassium 4.2 Chloride 99 Carbon Dioxide 22 Anion Gap 17 BUN 23 H Creatinine 1.2 Est GFR ( Amer) > 60 Est GFR (Non-Af Amer) > 60 POC Glucose (mg/dL) 175 H Random Glucose 116 H Calcium 8.8 Total Bilirubin 0.7 AST 44 ALT 30 Alkaline Phosphatase 68 Total Protein 6.3 Albumin 2.8 L D Globulin 3.5 Albumin/Globulin Ratio 0.8 L Random Vancomycin Blood Type Antibody Screen 12/03/16 12/03/16 12/03/16 07:38 11:31 14:47 WBC 20.4 H RBC 3.12 L Hgb 9.1 L Hct 27.1 L MCV 87.0 D MCH 29.2 MCHC 33.5 RDW 15.3 H Plt Count 212 MPV 7.7 Neut % (Auto) 91.6 H Lymph % (Auto) 2.5 L [place] % (Auto) 5.2 Eos % (Auto) 0.1 Baso % (Auto) 0.6 Neut # 18.6 H Lymph # 0.5 L [place] # 1.1 H Eos # 0.0 Baso # 0.1 Neutrophils % (Manual) 90 H Band Neutrophils % 2 Lymphocytes % (Manual) 3 L Reactive Lymphs % 1 H Monocytes % (Manual) 4 Basophils % (Manual) Platelet Estimate Normal Hypochromasia (manual) Slight Poikilocytosis (manual Slight Anisocytosis (manual) Slight Ovalocytes Slight [place] Cells PT INR Sodium Potassium Chloride Carbon Dioxide Anion Gap BUN Creatinine Est GFR ( Amer) Est GFR (Non-Af Amer) POC Glucose (mg/dL) 150 H 216 H Random Glucose Calcium Total Bilirubin AST ALT Alkaline Phosphatase Total Protein Albumin Globulin Albumin/Globulin Ratio Random Vancomycin Blood Type Antibody Screen 12/03/16 12/03/16 12/03/16 14:47 15:03 16:20 WBC RBC Hgb Hct MCV MCH MCHC RDW Plt Count MPV Neut % (Auto) Lymph % (Auto) [place] % (Auto) Eos % (Auto) Baso % (Auto) Neut # Lymph # [place] # Eos # Baso # Neutrophils % (Manual) Band Neutrophils % Lymphocytes % (Manual) Reactive Lymphs % Monocytes % (Manual) Basophils % (Manual) Platelet Estimate Hypochromasia (manual) Poikilocytosis (manual Anisocytosis (manual) Ovalocytes [place] Cells PT 13.1 H INR 1.1 Sodium Potassium Chloride Carbon Dioxide Anion Gap BUN Creatinine Est GFR ( Amer) Est GFR (Non-Af Amer) POC Glucose (mg/dL) 255 H Random Glucose Calcium Total Bilirubin AST ALT Alkaline Phosphatase Total Protein Albumin Globulin Albumin/Globulin Ratio Random Vancomycin 13.99 Blood Type Antibody Screen Assessment & Plan - Assessment and Plan (Free Text) Assessment: 70 year old male with history of Hypertension, Diabetes, chronic pancreatitis, Depression, PAD presenting with groin pain. 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 GI consultation for possible coffee-ground emesis. Endorsed prior colonoscopy ten years ago with polyps and recommendation for five year follow up at [facility] or [facility]. No prior endoscopy. Plan: >H/H stable >received 3U pRBC 2/2 post-op blood loss >no overt signs of GI blood loss >rectal -brown stool >recent ASA/Plavix initiation >okay to continue from GI standpoint >monitor for signs of GI blood loss >PPI IV BID >monitor H/H >history of unintentional weight loss, tobacco/alcohol abuse >no indication for emergent endoscopic evaluation >will require future EGD/colonoscopy to rule out malignancy >further recommendation based on clinical course <Venancio Layton - Last Filed: 12/03/16 18:43> Meds - Medications Medications: Current Medications Amlodipine Besylate (Norvasc) 10 mg PO DAILY [facility] Last Admin: 12/03/16 09:00 Dose: Not Given Aspirin (Aspirin) 325 mg PO DAILY [facility] Last Admin: 12/03/16 15:22 Dose: Not Given Clopidogrel Bisulfate (Plavix) 75 mg PO DAILY [facility] Last Admin: 12/03/16 15:22 Dose: Not Given Dextrose (Dextrose 50% Inj) 0 ml IVP .STAT PRN; Protocol PRN Reason: Hypoglycemia Protocol Last Admin: 11/29/16 07:17 Dose: 50 ml Dextrose (Glutose 15) 0 gm PO .ONCE PRN; Protocol PRN Reason: Hypoglycemia Protocol Docusate Sodium (Colace) 100 mg PO TID [facility] Last Admin: 12/03/16 17:33 Dose: 100 mg Duloxetine HCl (Cymbalta) 40 mg PO HS [facility] Last Admin: 12/02/16 22:46 Dose: 40 mg Ferrous Sulfate (Feosol) 325 mg PO BID [facility] Last Admin: 12/03/16 17:32 Dose: 325 mg Finasteride (Proscar) 5 mg PO DAILY [facility] Last Admin: 12/03/16 09:00 Dose: Not Given Fluticasone Propionate (Flonase) 2 spr [facility] DAILY [facility] Last Admin: 12/03/16 11:50 Dose: 2 spr Glucagon (Glucagen Diagnostic Kit) 0 mg IM .STAT PRN; Protocol PRN Reason: Hypoglycemia Protocol Heparin Sodium (Porcine) (Heparin) 5,000 units SC Q12 [facility] Cefepime HCl (Maxipime Iv 1 Gm Premix) 1 gm in 50 mls @ 100 mls/hr IVPB Q12H [facility] Last Admin: 12/03/16 08:16 Dose: 100 mls/hr Vancomycin HCl (Vancocin 750mg/D5w 150 Ml) 150 mls @ 100 mls/hr IVPB Q12H [facility] Stop: 12/05/16 00:31 Last Admin: 12/02/16 00:58 Dose: 100 mls/hr Acetaminophen 1,000 mg/ (Miscellaneous) 100 mls @ 400 mls/hr IV Q6 [facility] Stop: 12/04/16 12:01 Last Admin: 12/03/16 17:53 Dose: 400 mls/hr Lactated Ringer's (Lactated Ringer's) 1,000 mls @ 125 mls/hr IV .Q8H [facility] Last Admin: 12/03/16 17:36 Dose: 125 mls/hr Insulin Detemir (Levemir) 18 unit SC HS [facility] Last Admin: 12/02/16 22:55 Dose: 18 unit Insulin Human Regular (Novolin R) 6 unit SC ACL [facility] Last Admin: 12/03/16 12:26 Dose: Not Given Insulin Human Regular (Novolin R) 6 unit SC ACD [facility] Last Admin: 12/03/16 17:05 Dose: Not Given Insulin Human Regular (Novolin R) 10 unit SC ACB [facility] Last Admin: 12/03/16 08:45 Dose: Not Given Insulin Human Regular (Novolin R) 5 unit IV ONCE [facility] Insulin Human Regular (Novolin R) 0 unit SC ACHS [facility] PRN Reason: Protocol Last Admin: 12/03/16 17:09 Dose: 6 unit Lisinopril (Zestril) 10 mg PO DAILY [facility] Last Admin: 12/03/16 09:00 Dose: Not Given Metoprolol Tartrate (Lopressor) 50 mg PO BID [facility] Last Admin: 12/03/16 17:32 Dose: 50 mg Mirtazapine (Remeron) 30 mg PO HS [facility] Ondansetron HCl (Zofran Inj) 4 mg IVP Q6H PRN PRN Reason: Nausea/Vomiting Last Admin: 12/03/16 13:40 Dose: 4 mg Pantoprazole Sodium (Protonix Inj) 40 mg IVP Q12H [facility] Rosuvastatin Calcium (Crestor) 10 mg PO QPM [facility] Last Admin: 12/03/16 17:32 Dose: 10 mg Saccharomyces Boulardii (Florastor) 250 mg PO BID [facility] Last Admin: 12/03/16 17:33 Dose: 250 mg Tamsulosin HCl (Flomax) 0.4 mg PO DAILY [facility] Last Admin: 12/03/16 09:00 Dose: Not Given Tramadol HCl (Ultram) 50 mg PO TID [facility] Last Admin: 12/03/16 17:33 Dose: 50 mg Results - Vital Signs Recent Vital Signs: Last Vital Signs Temp 98.2 F 12/03/16 16:00 Pulse 100 H 12/03/16 17:20 Resp 25 H 12/03/16 17:20 BP 125/67 12/03/16 17:20 Pulse Ox 96 12/03/16 17:20 - Labs Result Diagrams: 12/03/16 14:47 12/03/16 06:19 Labs: Laboratory Results - last 24 hr 12/01/16 12/02/16 12/02/16 07:47 18:11 18:33 WBC RBC Hgb Hct MCV MCH MCHC RDW Plt Count MPV Neut % (Auto) Lymph % (Auto) [place] % (Auto) Eos % (Auto) Baso % (Auto) Neut # Lymph # [place] # Eos # Baso # Neutrophils % (Manual) Band Neutrophils % Lymphocytes % (Manual) Reactive Lymphs % Monocytes % (Manual) Basophils % (Manual) Platelet Estimate Hypochromasia (manual) Poikilocytosis (manual Anisocytosis (manual) Ovalocytes [place] Cells PT INR Sodium 130 L Potassium 4.3 Chloride 101 Carbon Dioxide 17 L Anion Gap 16 BUN 20 Creatinine 1.1 Est GFR ( Amer) > 60 Est GFR (Non-Af Amer) > 60 POC Glucose (mg/dL) 272 H Random Glucose 229 H Calcium 9.5 Total Bilirubin AST ALT Alkaline Phosphatase Total Protein Albumin Globulin Albumin/Globulin Ratio Random Vancomycin Blood Type O POSITIVE Antibody Screen Negative 12/02/16 12/02/16 12/02/16 20:12 21:07 21:30 WBC 20.6 H D RBC 3.56 L Hgb 10.5 L Hct 30.2 L MCV 84.8 MCH 29.4 MCHC 34.7 RDW 15.4 H Plt Count 235 MPV 7.0 L Neut % (Auto) 89.3 H Lymph % (Auto) 4.5 L [place] % (Auto) 5.6 Eos % (Auto) 0.3 Baso % (Auto) 0.3 Neut # 18.4 H Lymph # 0.9 L [place] # 1.1 H Eos # 0.1 Baso # 0.1 Neutrophils % (Manual) 91 H Band Neutrophils % 3 H Lymphocytes % (Manual) 3 L Reactive Lymphs % Monocytes % (Manual) 2 Basophils % (Manual) 1 Platelet Estimate Normal Hypochromasia (manual) Poikilocytosis (manual Anisocytosis (manual) Ovalocytes [place] Cells PT INR Sodium Potassium Chloride Carbon Dioxide Anion Gap BUN Creatinine Est GFR ( Amer) Est GFR (Non-Af Amer) POC Glucose (mg/dL) 259 H 246 H Random Glucose Calcium Total Bilirubin AST ALT Alkaline Phosphatase Total Protein Albumin Globulin Albumin/Globulin Ratio Random Vancomycin Blood Type Antibody Screen 12/02/16 12/03/16 12/03/16 23:37 06:15 06:19 WBC 16.5 H RBC 3.35 L Hgb 9.8 L Hct 28.4 L MCV 84.7 MCH 29.3 MCHC 34.6 RDW 15.6 H Plt Count 230 MPV 7.9 Neut % (Auto) 88.6 H Lymph % (Auto) 4.2 L [place] % (Auto) 6.6 Eos % (Auto) 0.3 Baso % (Auto) 0.3 Neut # 14.6 H Lymph # 0.7 L [place] # 1.1 H Eos # 0.1 Baso # 0.1 Neutrophils % (Manual) 87 H Band Neutrophils % 5 H Lymphocytes % (Manual) 3 L Reactive Lymphs % Monocytes % (Manual) 5 Basophils % (Manual) Platelet Estimate Normal Hypochromasia (manual) Poikilocytosis (manual Slight Anisocytosis (manual) Slight Ovalocytes Slight [place] Cells Slight PT INR Sodium 134 Potassium 4.2 Chloride 99 Carbon Dioxide 22 Anion Gap 17 BUN 23 H Creatinine 1.2 Est GFR ( Amer) > 60 Est GFR (Non-Af Amer) > 60 POC Glucose (mg/dL) 175 H Random Glucose 116 H Calcium 8.8 Total Bilirubin 0.7 AST 44 ALT 30 Alkaline Phosphatase 68 Total Protein 6.3 Albumin 2.8 L D Globulin 3.5 Albumin/Globulin Ratio 0.8 L Random Vancomycin Blood Type Antibody Screen 12/03/16 12/03/16 12/03/16 07:38 11:31 14:47 WBC 20.4 H RBC 3.12 L Hgb 9.1 L Hct 27.1 L MCV 87.0 D MCH 29.2 MCHC 33.5 RDW 15.3 H Plt Count 212 MPV 7.7 Neut % (Auto) 91.6 H Lymph % (Auto) 2.5 L [place] % (Auto) 5.2 Eos % (Auto) 0.1 Baso % (Auto) 0.6 Neut # 18.6 H Lymph # 0.5 L [place] # 1.1 H Eos # 0.0 Baso # 0.1 Neutrophils % (Manual) 90 H Band Neutrophils % 2 Lymphocytes % (Manual) 3 L Reactive Lymphs % 1 H Monocytes % (Manual) 4 Basophils % (Manual) Platelet Estimate Normal Hypochromasia (manual) Slight Poikilocytosis (manual Slight Anisocytosis (manual) Slight Ovalocytes Slight [place] Cells PT INR Sodium Potassium Chloride Carbon Dioxide Anion Gap BUN Creatinine Est GFR ( Amer) Est GFR (Non-Af Amer) POC Glucose (mg/dL) 150 H 216 H Random Glucose Calcium Total Bilirubin AST ALT Alkaline Phosphatase Total Protein Albumin Globulin Albumin/Globulin Ratio Random Vancomycin Blood Type Antibody Screen 12/03/16 12/03/16 12/03/16 14:47 15:03 16:20 WBC RBC Hgb Hct MCV MCH MCHC RDW Plt Count MPV Neut % (Auto) Lymph % (Auto) [place] % (Auto) Eos % (Auto) Baso % (Auto) Neut # Lymph # [place] # Eos # Baso # Neutrophils % (Manual) Band Neutrophils % Lymphocytes % (Manual) Reactive Lymphs % Monocytes % (Manual) Basophils % (Manual) Platelet Estimate Hypochromasia (manual) Poikilocytosis (manual Anisocytosis (manual) Ovalocytes [place] Cells PT 13.1 H INR 1.1 Sodium Potassium Chloride Carbon Dioxide Anion Gap BUN Creatinine Est GFR ( Amer) Est GFR (Non-Af Amer) POC Glucose (mg/dL) 255 H Random Glucose Calcium Total Bilirubin AST ALT Alkaline Phosphatase Total Protein Albumin Globulin Albumin/Globulin Ratio Random Vancomycin 13.99 Blood Type Antibody Screen Attending/Attestation - Attestation I have personally seen and examined this patient.: Yes I have fully participated in the care of the patient.: Yes I have reviewed all pertinent clinical information: Yes Notes (Text): 12/03/16 18:35 I have seen and examined patient with GI fellow. Agree with above documentation with the following additions. In brief, this is a 70 year old male with history of DM, HTN, chronic pancreatitis, PAD who initially presented to hospital with complaint of groin pain. He previously underwent repair of R femoral pseudoaneurysm which was complicated by rupture s/p R iliac/popliteal bypass and embolectomy. GI called for evaluation of coffee ground emesis which occurred earlier this morning. Since undergoing surgical intervention patient reports decreased appetite and nausea. He had cherries late yesterday evening and experienced two episodes of dark colored emesis today without any recurrent episodes. He endorses generalized abdominal pain related to recent surgery but otherwise denies fever/chills, diarrhea, melena, or rectal bleeding. He does report a recent significant weight loss of nearly 30 pounds over the past 8 months. He had a colonoscopy 10 years ago which was normal as per patient, no prior EGD. Additional physical examination: Abdomen: no palpable hepato/splenomegaly DM / HTN Chronic pancreatitis - prior ETOH abuse PAD Ruptured R femoral pseudoaneurysm s/p surgical repair Anemia Coffee ground emesis - H/H stable, continue to monitor - anti-platelet therapy (aspirin/plavix) have been held. No overt bleeding noted, rectal exam performed today shows soft brown stool in rectal vault without palpable lesions - Continue with IV PPI therapy twice daily - Clear liquid diet as tolerated - Anti-emetic therapy PRN - Patient would benefit from EGD/colonoscopy for further evaluation of unexplained weight loss given cigarette smoking history following resolution of acute medical issues. Will continue to monitor patient clinical course.
[2016-12-03] MEDS: Insulin Detemir 100 units/ml Vial (Levemir) SC SCH (21:40)
[2016-12-04] MEDS: Acetaminophen IV 1,000 MG in Premixed IV 1 EA IV SCH ×2 (00:32→12:00)
[2016-12-04 06:46] LABS: BASO # 0.1 K/uL (0.0-0.2); BASO % 0.4 % (0.0-2.0); EOS # 0.4 K/uL (0.0-0.7); EOS % 2.8 % (0.0-4.0); HEMATOCRIT 24.4 % (35.0-51.0); LYMPH # 0.7 K/uL (1.0-4.3); LYMPH % 5.2 % (20.0-40.0); MEAN CELL VOLUME 87.2 fL (80.0-94.0); MEAN CORPUSCULAR HGB CONC 34.4 g/dL (33.0-37.0); MEAN PLATELET VOLUME 7.9 fL (7.2-11.7); MONO # 0.7 K/uL (0.0-0.8); MONO % 5.6 % (0.0-10.0); PLATELET COUNT 183 K/uL (130-400); RED CELL DISTRIBUTION WIDTH 15.6 % (11.5-14.5); WHITE BLOOD COUNT 13.1 K/uL (4.8-10.8)
[2016-12-04 07:14] LABS: CHLORIDE 103 mmol/L (98-107); POTASSIUM 3.9 mmol/L (3.6-5.2); SODIUM 135 mmol/L (132-148)
[2016-12-04 07:16] LABS: BILIRUBIN,TOTAL 0.3 mg/dL (0.2-1.3); GFR AFRICAN-AMERICAN > 60
[2016-12-04 07:17] LABS: ALB/GLOB RATIO 0.8 (1.0-2.1); ALKALINE PHOSPHATASE 67 U/L (38-126); ALT/SGPT 37 U/L (21-72); AST/SGOT 35 U/L (17-59); BLOOD UREA NITROGEN 28 mg/dL (9-20); CALCIUM 8.3 mg/dl (8.6-10.4); CARBON DIOXIDE 22 mmol/L (22-30); GLUCOSE,RANDOM 118 mg/dL (75-110); MAGNESIUM 1.6 mg/dL (1.6-2.3); PHOSPHOROUS 3.3 mg/dL (2.5-4.5); TOTAL PROTEIN 6.1 g/dL (6.3-8.3)
[2016-12-04] MEDS: (Novolin R) Insulin Human Regular 100 units/ml vial SC SCH ×7 (07:30→22:04)
[2016-12-04] MEDS: Lactated Ringer's 1,000 ML IV SCH ×3 (08:00→17:55)
--- NOTE | 2016-12-04 08:07 | CP.PCM.PN ---
Subjective - Date & Time of Evaluation Date of Evaluation: 12/04/16 Time of Evaluation: 08:06 - Subjective Subjective: strong pt pulse vomiting stopped needs transfusion due to both acute blood loss (hct24)and downward trend will start gentle physical therapy Objective - Vital Signs/Intake and Output Vital Signs (last 24 hours): Temp Pulse Resp BP Pulse Ox 99.0 F 78 16 149/56 L 99 12/04/16 04:00 12/04/16 06:19 12/04/16 06:19 12/04/16 06:19 12/04/16 06:19 Intake and Output: 12/04/16 12/04/16 06:59 18:59 Intake Total 2100 Output Total 805 Balance 1295 - Medications Medications: Current Medications Amlodipine Besylate (Norvasc) 10 mg PO DAILY [facility] Last Admin: 12/03/16 09:00 Dose: Not Given Aspirin (Aspirin) 325 mg PO DAILY [facility] Last Admin: 12/03/16 15:22 Dose: Not Given Clopidogrel Bisulfate (Plavix) 75 mg PO DAILY [facility] Last Admin: 12/03/16 15:22 Dose: Not Given Dextrose (Dextrose 50% Inj) 0 ml IVP .STAT PRN; Protocol PRN Reason: Hypoglycemia Protocol Last Admin: 11/29/16 07:17 Dose: 50 ml Dextrose (Glutose 15) 0 gm PO .ONCE PRN; Protocol PRN Reason: Hypoglycemia Protocol Docusate Sodium (Colace) 100 mg PO TID [facility] Last Admin: 12/03/16 17:33 Dose: 100 mg Duloxetine HCl (Cymbalta) 40 mg PO HS [facility] Last Admin: 12/03/16 21:40 Dose: 40 mg Famotidine (Pepcid) 20 mg PO BID [facility] Ferrous Sulfate (Feosol) 325 mg PO BID [facility] Last Admin: 12/03/16 17:32 Dose: 325 mg Finasteride (Proscar) 5 mg PO DAILY [facility] Last Admin: 12/03/16 09:00 Dose: Not Given Fluticasone Propionate (Flonase) 2 spr EMMA DAILY [facility] Last Admin: 12/03/16 11:50 Dose: 2 spr Glucagon (Glucagen Diagnostic Kit) 0 mg IM .STAT PRN; Protocol PRN Reason: Hypoglycemia Protocol Heparin Sodium (Porcine) (Heparin) 5,000 units SC Q12 [facility] Last Admin: 12/03/16 21:40 Dose: 5,000 units Cefepime HCl (Maxipime Iv 1 Gm Premix) 1 gm in 50 mls @ 100 mls/hr IVPB Q12H [facility] Last Admin: 12/03/16 20:44 Dose: 100 mls/hr Vancomycin HCl (Vancocin 750mg/D5w 150 Ml) 150 mls @ 100 mls/hr IVPB Q12H [facility] Stop: 12/05/16 00:31 Last Admin: 12/02/16 00:58 Dose: 100 mls/hr Acetaminophen 1,000 mg/ (Miscellaneous) 100 mls @ 400 mls/hr IV Q6 [facility] Stop: 12/04/16 12:01 Last Admin: 12/04/16 00:32 Dose: 400 mls/hr Lactated Ringer's (Lactated Ringer's) 1,000 mls @ 125 mls/hr IV .Q8H [facility] Last Admin: 12/03/16 17:36 Dose: 125 mls/hr Insulin Detemir (Levemir) 18 unit SC HS [facility] Last Admin: 12/03/16 21:40 Dose: 18 unit Insulin Human Regular (Novolin R) 6 unit SC ACL [facility] Last Admin: 12/03/16 12:26 Dose: Not Given Insulin Human Regular (Novolin R) 6 unit SC ACD [facility] Last Admin: 12/03/16 17:05 Dose: Not Given Insulin Human Regular (Novolin R) 10 unit SC ACB [facility] Last Admin: 12/03/16 08:45 Dose: Not Given Insulin Human Regular (Novolin R) 5 unit IV ONCE [facility] Insulin Human Regular (Novolin R) 0 unit SC ACHS [facility] PRN Reason: Protocol Last Admin: 12/03/16 21:38 Dose: Not Given Lisinopril (Zestril) 10 mg PO DAILY [facility] Last Admin: 12/03/16 09:00 Dose: Not Given Metoprolol Tartrate (Lopressor) 50 mg PO BID [facility] Last Admin: 12/03/16 17:32 Dose: 50 mg Mirtazapine (Remeron) 30 mg PO HS [facility] Last Admin: 12/03/16 21:40 Dose: 30 mg Ondansetron HCl (Zofran Inj) 4 mg IVP Q6H PRN PRN Reason: Nausea/Vomiting Last Admin: 12/03/16 13:40 Dose: 4 mg Rosuvastatin Calcium (Crestor) 10 mg PO QPM [facility] Last Admin: 12/03/16 17:32 Dose: 10 mg Saccharomyces Boulardii (Florastor) 250 mg PO BID [facility] Last Admin: 12/03/16 17:33 Dose: 250 mg Tamsulosin HCl (Flomax) 0.4 mg PO DAILY [facility] Last Admin: 12/03/16 09:00 Dose: Not Given Tramadol HCl (Ultram) 50 mg PO TID [facility] Last Admin: 12/03/16 17:33 Dose: 50 mg - Labs Labs: 12/04/16 06:32 12/04/16 06:32 PT 13.1 SECONDS (9.7-12.2) H 12/03/16 14:47 INR 1.1 12/03/16 14:47 APTT 41 SECONDS (21-34) H 12/01/16 07:51
[2016-12-04 08:26] LABS: EOSINOPHIL 3 % (0-4); NEUTROPHIL 84 % (50-75); TOTAL CELLS COUNTED 100
[2016-12-04] MEDS: Cefepime IV 1 gm in Dextrose 1 GM/50 ML BAG IVPB SCH ×2 (09:00→20:07)
[2016-12-04] MEDS: LIPASE/PROTEASE/AMYLASE 4,200 U ECC PO SCH ×5 (09:13→20:07)
[2016-12-04] MEDS: Saccharomyces Boulardi 250 mg Cap PO SCH ×2 (09:14→17:57)
--- NOTE | 2016-12-04 09:52 | CP.PCM.PN ---
<Christos Santana - Last Filed: 12/04/16 09:56> Subjective - Date & Time of Evaluation Date of Evaluation: 12/04/16 Time of Evaluation: 08:00 - Subjective Subjective: PGY4 GI Follow-up Pt seen and examined bedside complaining of constipation tolerating diet denies any abd pain vomiting overnight x1, no hematemesis, or coffee-ground emesis denies any melena ROS: 10 point ROS conducted, neg other than above Objective - Vital Signs/Intake and Output Vital Signs (last 24 hours): Temp Pulse Resp BP Pulse Ox 99.0 F 78 16 149/56 L 99 12/04/16 04:00 12/04/16 06:19 12/04/16 06:19 12/04/16 06:19 12/04/16 06:19 Intake and Output: 12/04/16 12/04/16 06:59 18:59 Intake Total 2100 Output Total 805 Balance 1295 - Medications Medications: Current Medications Amlodipine Besylate (Norvasc) 10 mg PO DAILY [facility] Last Admin: 12/04/16 09:14 Dose: 10 mg Aspirin (Aspirin) 325 mg PO DAILY [facility] Last Admin: 12/03/16 15:22 Dose: Not Given Clopidogrel Bisulfate (Plavix) 75 mg PO DAILY [facility] Last Admin: 12/03/16 15:22 Dose: Not Given Dextrose (Dextrose 50% Inj) 0 ml IVP .STAT PRN; Protocol PRN Reason: Hypoglycemia Protocol Last Admin: 11/29/16 07:17 Dose: 50 ml Dextrose (Glutose 15) 0 gm PO .ONCE PRN; Protocol PRN Reason: Hypoglycemia Protocol Docusate Sodium (Colace) 100 mg PO TID [facility] Last Admin: 12/04/16 09:14 Dose: 100 mg Duloxetine HCl (Cymbalta) 40 mg PO HS [facility] Last Admin: 12/03/16 21:40 Dose: 40 mg Famotidine (Pepcid) 20 mg PO BID [facility] Last Admin: 12/04/16 09:16 Dose: 20 mg Ferrous Sulfate (Feosol) 325 mg PO BID [facility] Last Admin: 12/04/16 09:14 Dose: 325 mg Finasteride (Proscar) 5 mg PO DAILY [facility] Last Admin: 12/04/16 09:14 Dose: 5 mg Fluticasone Propionate (Flonase) 2 spr EMMA DAILY [facility] Last Admin: 10/11/17 11:50 Dose: 2 spr Glucagon (Glucagen Diagnostic Kit) 0 mg IM .STAT PRN; Protocol PRN Reason: Hypoglycemia Protocol Heparin Sodium (Porcine) (Heparin) 5,000 units SC Q12 [facility] Last Admin: 12/03/16 21:40 Dose: 5,000 units Cefepime HCl (Maxipime Iv 1 Gm Premix) 1 gm in 50 mls @ 100 mls/hr IVPB Q12H [facility] Last Admin: 12/04/16 09:00 Dose: 100 mls/hr Vancomycin HCl (Vancocin 750mg/D5w 150 Ml) 150 mls @ 100 mls/hr IVPB Q12H [facility] Stop: 12/05/16 00:31 Last Admin: 12/02/16 00:58 Dose: 100 mls/hr Acetaminophen 1,000 mg/ (Miscellaneous) 100 mls @ 400 mls/hr IV Q6 [facility] Stop: 12/04/16 12:01 Last Admin: 12/04/16 00:32 Dose: 400 mls/hr Lactated Ringer's (Lactated Ringer's) 1,000 mls @ 125 mls/hr IV .Q8H [facility] Last Admin: 12/04/16 09:20 Dose: Not Given Insulin Detemir (Levemir) 18 unit SC HS [facility] Last Admin: 12/03/16 21:40 Dose: 18 unit Insulin Human Regular (Novolin R) 6 unit SC ACL [facility] Last Admin: 12/03/16 12:26 Dose: Not Given Insulin Human Regular (Novolin R) 6 unit SC ACD [facility] Last Admin: 12/03/16 17:05 Dose: Not Given Insulin Human Regular (Novolin R) 10 unit SC ACB [facility] Last Admin: 12/04/16 09:04 Dose: Not Given Insulin Human Regular (Novolin R) 5 unit IV ONCE [facility] Insulin Human Regular (Novolin R) 0 unit SC ACHS [facility] PRN Reason: Protocol Last Admin: 12/04/16 07:30 Dose: Not Given Lisinopril (Zestril) 10 mg PO DAILY [facility] Last Admin: 12/04/16 09:14 Dose: 10 mg Metoprolol Tartrate (Lopressor) 50 mg PO BID [facility] Last Admin: 12/04/16 09:14 Dose: 50 mg Mirtazapine (Remeron) 30 mg PO HS [facility] Last Admin: 12/03/16 21:40 Dose: 30 mg Ondansetron HCl (Zofran Inj) 4 mg IVP Q6H PRN PRN Reason: Nausea/Vomiting Last Admin: 12/03/16 13:40 Dose: 4 mg Rosuvastatin Calcium (Crestor) 10 mg PO QPM [facility] Last Admin: 12/03/16 17:32 Dose: 10 mg Saccharomyces Boulardii (Florastor) 250 mg PO BID [facility] Last Admin: 12/04/16 09:14 Dose: 250 mg Tamsulosin HCl (Flomax) 0.4 mg PO DAILY [facility] Last Admin: 12/04/16 09:18 Dose: 0.4 mg Tramadol HCl (Ultram) 50 mg PO TID [facility] Last Admin: 12/04/16 09:10 Dose: 50 mg - Labs Labs: 12/04/16 06:32 12/04/16 06:32 PT 13.1 SECONDS (9.7-12.2) H 12/03/16 14:47 INR 1.1 12/03/16 14:47 APTT 41 SECONDS (21-34) H 12/01/16 07:51 - Constitutional Appears: Well, No Acute Distress - Head Exam Head Exam: ATRAUMATIC, NORMOCEPHALIC - Eye Exam Eye Exam: Normal appearance - ENT Exam ENT Exam: Mucous Membranes Moist - Respiratory Exam Respiratory Exam: Clear to Ausculation Bilateral, NORMAL BREATHING PATTERN. absent: Rales, Rhonchi, Wheezes, Respiratory Distress - Cardiovascular Exam Cardiovascular Exam: REGULAR RHYTHM, +S1, +S2 - GI/Abdominal Exam GI & Abdominal Exam: Soft, Normal Bowel Sounds. absent: Guarding, Rigid, Tenderness, Organomegaly, Rebound Additional comments: bandaged incision LLQ - Extremities Exam Extremities Exam: absent: Joint Swelling, Pedal Edema - Neurological Exam Neurological Exam: Alert, Awake, Oriented x3 - Psychiatric Exam Psychiatric exam: Normal Affect, Normal Mood - Skin Skin Exam: Dry, Intact, Normal Color, Warm Assessment and Plan - Assessment and Plan (Free Text) Assessment: 70 year old male with history of Hypertension, Diabetes, chronic pancreatitis, Depression, PAD presenting with groin pain. 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 GI consultation for possible coffee-ground emesis. Endorsed prior colonoscopy ten years ago with polyps and recommendation for five year follow up at [facility] or [facility]. No prior endoscopy. 1. Possible coffee-ground emesis 2. Needs colon ca screening 3. PVD s/p Fem-pop bypass 4. Anemia 2/2 Fem-Pop bypass, unlikely due to GI loss Plan: H/H stable received 3U pRBC 2/2 post-op blood loss no overt signs of GI blood loss H/H is decreasing, but may still be equalizing with loss from Fem-pop bypass recent ASA/Plavix initiation okay to continue from GI standpoint monitor for signs of GI blood loss PPI PO daily monitor H/H history of unintentional weight loss, tobacco/alcohol abuse no indication for emergent endoscopic evaluation will require future EGD/colonoscopy to rule out malignancy as an oupt D/W Dr. Layton <Venancio Layton - Last Filed: 12/04/16 17:37> Objective - Vital Signs/Intake and Output Vital Signs (last 24 hours): Temp Pulse Resp BP Pulse Ox 97.1 F L 74 16 138/46 L 99 12/04/16 15:00 12/04/16 15:00 12/04/16 15:00 12/04/16 15:00 12/04/16 11:00 Intake and Output: 12/04/16 12/04/16 06:59 18:59 Intake Total 2100 875 Output Total 805 410 Balance 1295 465 - Medications Medications: Current Medications Amlodipine Besylate (Norvasc) 10 mg PO DAILY [facility] Last Admin: 12/04/16 09:14 Dose: 10 mg Aspirin (Aspirin) 325 mg PO DAILY [facility] Last Admin: 12/03/16 15:22 Dose: Not Given Clopidogrel Bisulfate (Plavix) 75 mg PO DAILY [facility] Last Admin: 12/03/16 15:22 Dose: Not Given Dextrose (Dextrose 50% Inj) 0 ml IVP .STAT PRN; Protocol PRN Reason: Hypoglycemia Protocol Last Admin: 11/29/16 07:17 Dose: 50 ml Dextrose (Glutose 15) 0 gm PO .ONCE PRN; Protocol PRN Reason: Hypoglycemia Protocol Docusate Sodium (Colace) 100 mg PO TID [facility] Last Admin: 12/04/16 15:20 Dose: 100 mg Duloxetine HCl (Cymbalta) 40 mg PO HS [facility] Last Admin: 12/03/16 21:40 Dose: 40 mg Famotidine (Pepcid) 20 mg PO BID [facility] Last Admin: 12/04/16 09:16 Dose: 20 mg Ferrous Sulfate (Feosol) 325 mg PO BID [facility] Last Admin: 12/04/16 09:14 Dose: 325 mg Finasteride (Proscar) 5 mg PO DAILY [facility] Last Admin: 12/04/16 09:14 Dose: 5 mg Fluticasone Propionate (Flonase) 2 spr EMMA DAILY [facility] Last Admin: 12/04/16 12:38 Dose: Not Given Glucagon (Glucagen Diagnostic Kit) 0 mg IM .STAT PRN; Protocol PRN Reason: Hypoglycemia Protocol Heparin Sodium (Porcine) (Heparin) 5,000 units SC Q12 [facility] Last Admin: 12/04/16 12:00 Dose: 5,000 units Cefepime HCl (Maxipime Iv 1 Gm Premix) 1 gm in 50 mls @ 100 mls/hr IVPB Q12H [facility] Last Admin: 12/04/16 09:00 Dose: 100 mls/hr Vancomycin HCl (Vancocin 750mg/D5w 150 Ml) 150 mls @ 100 mls/hr IVPB Q12H [facility] Stop: 12/05/16 00:31 Last Admin: 12/02/16 00:58 Dose: 100 mls/hr Lactated Ringer's (Lactated Ringer's) 1,000 mls @ 125 mls/hr IV .Q8H [facility] Last Admin: 12/04/16 09:20 Dose: Not Given Insulin Detemir (Levemir) 18 unit SC HS [facility] Last Admin: 12/03/16 21:40 Dose: 18 unit Insulin Human Regular (Novolin R) 6 unit SC ACL [facility] Last Admin: 12/04/16 12:00 Dose: 6 unit Insulin Human Regular (Novolin R) 6 unit SC ACD [facility] Last Admin: 12/03/16 17:05 Dose: Not Given Insulin Human Regular (Novolin R) 10 unit SC ACB [facility] Last Admin: 12/04/16 09:04 Dose: Not Given Insulin Human Regular (Novolin R) 5 unit IV ONCE [facility] Insulin Human Regular (Novolin R) 0 unit SC ACHS [facility] PRN Reason: Protocol Last Admin: 12/04/16 12:00 Dose: 4 unit Lisinopril (Zestril) 10 mg PO DAILY [facility] Last Admin: 12/04/16 09:14 Dose: 10 mg Metoprolol Tartrate (Lopressor) 50 mg PO BID [facility] Last Admin: 12/04/16 09:14 Dose: 50 mg Mirtazapine (Remeron) 30 mg PO HS [facility] Last Admin: 12/03/16 21:40 Dose: 30 mg Ondansetron HCl (Zofran Inj) 4 mg IVP Q6H PRN PRN Reason: Nausea/Vomiting Last Admin: 12/03/16 13:40 Dose: 4 mg Rosuvastatin Calcium (Crestor) 10 mg PO QPM [facility] Last Admin: 12/03/16 17:32 Dose: 10 mg Saccharomyces Boulardii (Florastor) 250 mg PO BID [facility] Last Admin: 12/04/16 09:14 Dose: 250 mg Tamsulosin HCl (Flomax) 0.4 mg PO DAILY [facility] Last Admin: 12/04/16 09:18 Dose: 0.4 mg Tramadol HCl (Ultram) 50 mg PO TID [facility] Last Admin: 12/04/16 15:27 Dose: 50 mg - Labs Labs: 12/04/16 06:32 12/04/16 06:32 PT 13.1 SECONDS (9.7-12.2) H 12/03/16 14:47 INR 1.1 12/03/16 14:47 APTT 41 SECONDS (21-34) H 12/01/16 07:51 Attending/Attestation - Attestation I have personally seen and examined this patient.: Yes I have fully participated in the care of the patient.: Yes I have reviewed all pertinent clinical information, including history, physical exam and plan: Yes Notes (Text): 12/04/16 17:31 I have seen and examined patient with GI fellow. No acute events overnight, he reports one episode of scant emesis (10 cc of yellow colored fluid in basin). He denies abdominal pain, no bowel movements overnight. Tolerating liquid diet without difficulty. Review of vitals from today are normal. DM / HTN Chronic pancreatitis s/p treatment of ruptured femoral pseudoaneurysm Coffee ground emesis - resolved - Full liquid diet as tolerated - H/H trending down, though no overt bleeding noted, rectal exam showed brown stool. Continue to monitor and transfuse as necessary. - Continue with PPI therapy - No clear contraindication to resuming anti-platelet therapy - Follow up vascular surgical recommendations - No plan for current endoscopic intervention, patient will benefit from EGD/ colonoscopy given unexplained weight loss which can be performed electively as outpatient. Will sign off case, please reconsult as necessary, thank you.
[2016-12-04] MEDS: Fluticasone Nasal 50 mcg/Spray NAS SCH (12:38)
--- NOTE | 2016-12-04 16:16 | CP.CCUPN ---
<Wisam Gray E - Last Filed: 12/04/16 16:12> CCU Subjective - Physician Review Events Since Last Encounter (Free Text): Transfused 1 unit of PRBC due to a hemoglobin 8.4 Subjective (Free Text): Patient was seen and examined at bedside. Patient is s/p right common iliac- popliteal bypass with 8mm PTFE and right femoral embolectomy, POD#2. Patient reports that he is doing well and his pain is well-controlled. Patient denies chest pain, SOB, palpitations, fever, chills but admits to nausea and vomiting. Patient is tolerating liquid diet. CCU Objective - Vital Signs / Intake & Output Vital Signs (Last 4 hours): Vital Signs Temp Pulse Resp BP 12/04/16 15:00 97.1 F L 74 16 138/46 L 12/04/16 13:55 97.6 F 74 18 122/40 L 12/04/16 12:56 97.5 F L 71 24 151/42 H 12/04/16 12:26 97.6 F 73 22 158/45 H Intake and Output (Last 8hrs): Intake & Output 12/04/16 12/04/16 12/04/16 06:59 14:59 22:59 Intake Total 1300 875 0 Output Total 630 410 Balance 670 465 0 Intake: Intake, IV Amount 1200 425 Left Hand 1200 425 Oral 100 Blood Product 450 0 Red Blood Cells Cpd As1 325 0 Lr Unit [id number] Output: Urine 630 410 Urethral ([place]) 630 410 Oral Regurgitation 0 Other: # Bowel Movements 0 - Physical Exam Head: Positive for: Atraumatic, Normocephalic Extroacular Muscles: Positive for: EOMI Respiratory/Chest: Positive for: Decreased Breath Sounds. Negative for: Respiratory Distress, Accessory Muscle Use Cardiovascular: Positive for: Regular Rate and Rhythm, Murmurs, Normal S1, S2 Abdomen: Positive for: Tenderness, Normal Bowel Sounds Upper Extremity: Positive for: Normal Inspection. Negative for: Edema Lower Extremity: Positive for: Normal Inspection (Right Foot is warm to touch, audible DP and PT pulses with doppler ). Negative for: Edema Neurological: Positive for: GCS=15, Speech Normal Skin: Positive for: Normal Color Psychiatric: Positive for: Alert, Oriented x 3 - Medications Active Medications: Active Medications Generic Name Dose Route Start Last Admin Trade Name Freq PRN Reason Stop Dose Admin Amlodipine Besylate 10 mg 11/27/16 10:00 12/04/16 09:14 Norvasc PO 10 mg DAILY LADONNA Administration Aspirin 325 mg 12/03/16 10:45 12/03/16 15:22 Aspirin PO Not Given DAILY LADONNA Clopidogrel Bisulfate 75 mg 12/03/16 10:45 12/03/16 15:22 Plavix PO Not Given DAILY LADONNA Dextrose 0 ml 11/29/16 07:12 11/29/16 07:17 Dextrose 50% Inj IVP 50 ml .STAT PRN Administration Hypoglycemia Protocol Protocol Dextrose 0 gm 11/29/16 07:12 Glutose 15 PO .ONCE PRN Hypoglycemia Protocol Protocol Docusate Sodium 100 mg 11/27/16 14:00 12/04/16 15:20 Colace PO 100 mg TID LADONNA Administration Duloxetine HCl 40 mg 11/27/16 22:00 12/03/16 21:40 Cymbalta PO 40 mg HS LADONNA Administration Famotidine 20 mg 12/04/16 10:00 12/04/16 09:16 Pepcid PO 20 mg BID LADONNA Administration Ferrous Sulfate 325 mg 11/27/16 10:00 12/04/16 09:14 Feosol PO 325 mg BID LADONNA Administration Finasteride 5 mg 11/27/16 10:00 12/04/16 09:14 Proscar PO 5 mg DAILY LADONNA Administration Fluticasone Propionate 2 spr 11/27/16 10:00 12/04/16 12:38 Flonase EMMA Not Given DAILY LADONNA Glucagon 0 mg 11/29/16 07:12 Glucagen Diagnostic Kit IM .STAT PRN Hypoglycemia Protocol Protocol Heparin Sodium (Porcine) 5,000 units 12/03/16 22:00 12/04/16 12:00 Heparin SC 5,000 units Q12 LADONNA Administration Cefepime HCl 1 gm in 50 mls @ 100 mls/hr 11/27/16 20:00 12/04/16 09:00 Maxipime Iv 1 Gm Premix IVPB 100 mls/hr Q12H LADONNA Administration Vancomycin HCl 150 mls @ 100 mls/hr 12/01/16 00:30 12/02/16 00:58 Vancocin 750mg/D5w 150 Ml IVPB 12/05/16 00:31 100 mls/hr Q12H LADONNA Administration Lactated Ringer's 1,000 mls @ 125 mls/hr 12/03/16 09:15 12/04/16 09:20 Lactated Ringer's IV Not Given .Q8H LADONNA Insulin Detemir 18 unit 12/01/16 17:02 12/03/16 21:40 Levemir SC 18 unit HS LADONNA Administration Insulin Human Regular 6 unit 11/28/16 11:30 12/04/16 12:00 Novolin R SC 6 unit ACL LADONNA Administration Insulin Human Regular 6 unit 11/28/16 16:30 12/03/16 17:05 Novolin R SC Not Given ACD LADONNA Insulin Human Regular 10 unit 11/29/16 07:30 12/04/16 09:04 Novolin R SC Not Given ACB LADONNA Insulin Human Regular 5 unit 12/02/16 13:45 Novolin R IV ONCE LADONNA Insulin Human Regular 0 unit 12/02/16 16:30 12/04/16 12:00 Novolin R SC 4 unit ACHS LADONNA Administration Protocol Lisinopril 10 mg 11/30/16 10:00 12/04/16 09:14 Zestril PO 10 mg DAILY LADONNA Administration Metoprolol Tartrate 50 mg 11/28/16 10:00 12/04/16 09:14 Lopressor PO 50 mg BID LADONNA Administration Mirtazapine 30 mg 12/03/16 22:00 12/03/16 21:40 Remeron PO 30 mg HS LADONNA Administration Ondansetron HCl 4 mg 11/26/16 23:56 12/03/16 13:40 Zofran Inj IVP 4 mg Q6H PRN Administration Nausea/Vomiting Rosuvastatin Calcium 10 mg 11/27/16 18:00 12/03/16 17:32 Crestor PO 10 mg QPM LADONNA Administration Saccharomyces Boulardii 250 mg 11/30/16 21:00 12/04/16 09:14 Florastor PO 250 mg BID LADONNA Administration Tamsulosin HCl 0.4 mg 11/27/16 10:00 12/04/16 09:18 Flomax PO 0.4 mg DAILY LADONNA Administration Tramadol HCl 50 mg 12/03/16 10:00 12/04/16 15:27 Ultram PO 50 mg TID LADONNA Administration - Patient Studies Lab Studies: Microbiology Studies 12/02/16 21:08 MRSA Culture (Admit) - Final Naris MRSA NOT DETECTED Lab Studies 12/04/16 12/04/16 12/04/16 Range/Units 11:05 10:06 07:11 WBC (4.8-10.8) K/uL RBC (4.40-5.90) Mil/uL Hgb (12.0-18.0) g/dL Hct (35.0-51.0) % MCV (80.0-94.0) fL MCH (27.0-31.0) pg MCHC (33.0-37.0) g/dL RDW (11.5-14.5) % Plt Count (130-400) K/uL MPV (7.2-11.7) fL Neut % (Auto) (50.0-75.0) % Lymph % (Auto) (20.0-40.0) % [place] % (Auto) (0.0-10.0) % Eos % (Auto) (0.0-4.0) % Baso % (Auto) (0.0-2.0) % Neut # (1.8-7.0) K/uL Lymph # (1.0-4.3) K/uL [place] # (0.0-0.8) K/uL Eos # (0.0-0.7) K/uL Baso # (0.0-0.2) K/uL Neutrophils % (Manual) (50-75) % Lymphocytes % (Manual) (20-40) % Monocytes % (Manual) (0-10) % Eosinophils % (Manual) (0-4) % Platelet Estimate (NORMAL) Hypochromasia (manual) Poikilocytosis (manual Anisocytosis (manual) Ovalocytes [place] Cells Sodium (132-148) mmol/L Potassium (3.6-5.2) mmol/L Chloride (98-107) mmol/L Carbon Dioxide (22-30) mmol/L Anion Gap (10-20) BUN (9-20) mg/dL Creatinine (0.8-1.5) mg/dL Est GFR ( Amer) Est GFR (Non-Af Amer) POC Glucose (mg/dL) 210 H 124 H (65-110) mg/dL Random Glucose (75-110) mg/dL Calcium (8.6-10.4) mg/dl Phosphorus (2.5-4.5) mg/dL Magnesium (1.6-2.3) mg/dL Total Bilirubin (0.2-1.3) mg/dL AST (17-59) U/L ALT (21-72) U/L Alkaline Phosphatase (38-126) U/L Total Protein (6.3-8.3) g/dL Albumin (3.5-5.0) g/dL Globulin (2.2-3.9) gm/dL Albumin/Globulin Ratio (1.0-2.1) Vancomycin Trough (5.0-10.0) ug/mL Blood Type O POSITIVE Antibody Screen Negative 12/04/16 12/04/16 12/04/16 Range/Units 06:32 06:32 06:32 WBC 13.1 H (4.8-10.8) K/uL RBC 2.80 L (4.40-5.90) Mil/uL Hgb 8.4 L (12.0-18.0) g/dL Hct 24.4 L (35.0-51.0) % MCV 87.2 (80.0-94.0) fL MCH 30.0 (27.0-31.0) pg MCHC 34.4 (33.0-37.0) g/dL RDW 15.6 H (11.5-14.5) % Plt Count 183 (130-400) K/uL MPV 7.9 (7.2-11.7) fL Neut % (Auto) 86.0 H (50.0-75.0) % Lymph % (Auto) 5.2 L (20.0-40.0) % [place] % (Auto) 5.6 (0.0-10.0) % Eos % (Auto) 2.8 (0.0-4.0) % Baso % (Auto) 0.4 (0.0-2.0) % Neut # 11.3 H (1.8-7.0) K/uL Lymph # 0.7 L (1.0-4.3) K/uL [place] # 0.7 (0.0-0.8) K/uL Eos # 0.4 (0.0-0.7) K/uL Baso # 0.1 (0.0-0.2) K/uL Neutrophils % (Manual) 84 H (50-75) % Lymphocytes % (Manual) 7 L (20-40) % Monocytes % (Manual) 6 (0-10) % Eosinophils % (Manual) 3 (0-4) % Platelet Estimate Normal (NORMAL) Hypochromasia (manual) Slight Poikilocytosis (manual Slight Anisocytosis (manual) Slight Ovalocytes Slight [place] Cells Slight Sodium 135 (132-148) mmol/L Potassium 3.9 (3.6-5.2) mmol/L Chloride 103 (98-107) mmol/L Carbon Dioxide 22 (22-30) mmol/L Anion Gap 15 (10-20) BUN 28 H (9-20) mg/dL Creatinine 1.2 (0.8-1.5) mg/dL Est GFR ( Amer) > 60 Est GFR (Non-Af Amer) > 60 POC Glucose (mg/dL) (65-110) mg/dL Random Glucose 118 H (75-110) mg/dL Calcium 8.3 L (8.6-10.4) mg/dl Phosphorus 3.3 (2.5-4.5) mg/dL Magnesium 1.6 (1.6-2.3) mg/dL Total Bilirubin 0.3 (0.2-1.3) mg/dL AST 35 (17-59) U/L ALT 37 (21-72) U/L Alkaline Phosphatase 67 (38-126) U/L Total Protein 6.1 L (6.3-8.3) g/dL Albumin 2.7 L (3.5-5.0) g/dL Globulin 3.4 (2.2-3.9) gm/dL Albumin/Globulin Ratio 0.8 L (1.0-2.1) Vancomycin Trough 10.6 H (5.0-10.0) ug/mL Blood Type Antibody Screen 12/03/16 12/03/16 Range/Units 21:13 16:20 WBC (4.8-10.8) K/uL RBC (4.40-5.90) Mil/uL Hgb (12.0-18.0) g/dL Hct (35.0-51.0) % MCV (80.0-94.0) fL MCH (27.0-31.0) pg MCHC (33.0-37.0) g/dL RDW (11.5-14.5) % Plt Count (130-400) K/uL MPV (7.2-11.7) fL Neut % (Auto) (50.0-75.0) % Lymph % (Auto) (20.0-40.0) % [place] % (Auto) (0.0-10.0) % Eos % (Auto) (0.0-4.0) % Baso % (Auto) (0.0-2.0) % Neut # (1.8-7.0) K/uL Lymph # (1.0-4.3) K/uL [place] # (0.0-0.8) K/uL Eos # (0.0-0.7) K/uL Baso # (0.0-0.2) K/uL Neutrophils % (Manual) (50-75) % Lymphocytes % (Manual) (20-40) % Monocytes % (Manual) (0-10) % Eosinophils % (Manual) (0-4) % Platelet Estimate (NORMAL) Hypochromasia (manual) Poikilocytosis (manual Anisocytosis (manual) Ovalocytes [place] Cells Sodium (132-148) mmol/L Potassium (3.6-5.2) mmol/L Chloride (98-107) mmol/L Carbon Dioxide (22-30) mmol/L Anion Gap (10-20) BUN (9-20) mg/dL Creatinine (0.8-1.5) mg/dL Est GFR ( Amer) Est GFR (Non-Af Amer) POC Glucose (mg/dL) 215 H 255 H (65-110) mg/dL Random Glucose (75-110) mg/dL Calcium (8.6-10.4) mg/dl Phosphorus (2.5-4.5) mg/dL Magnesium (1.6-2.3) mg/dL Total Bilirubin (0.2-1.3) mg/dL AST (17-59) U/L ALT (21-72) U/L Alkaline Phosphatase (38-126) U/L Total Protein (6.3-8.3) g/dL Albumin (3.5-5.0) g/dL Globulin (2.2-3.9) gm/dL Albumin/Globulin Ratio (1.0-2.1) Vancomycin Trough (5.0-10.0) ug/mL Blood Type Antibody Screen Laboratory Results - last 24 hr 12/03/16 12/03/16 12/04/16 16:20 21:13 06:32 WBC 13.1 H RBC 2.80 L Hgb 8.4 L Hct 24.4 L MCV 87.2 MCH 30.0 MCHC 34.4 RDW 15.6 H Plt Count 183 MPV 7.9 Neut % (Auto) 86.0 H Lymph % (Auto) 5.2 L [place] % (Auto) 5.6 Eos % (Auto) 2.8 Baso % (Auto) 0.4 Neut # 11.3 H Lymph # 0.7 L [place] # 0.7 Eos # 0.4 Baso # 0.1 Neutrophils % (Manual) 84 H Lymphocytes % (Manual) 7 L Monocytes % (Manual) 6 Eosinophils % (Manual) 3 Platelet Estimate Normal Hypochromasia (manual) Slight Poikilocytosis (manual Slight Anisocytosis (manual) Slight Ovalocytes Slight [place] Cells Slight Sodium Potassium Chloride Carbon Dioxide Anion Gap BUN Creatinine Est GFR ( Amer) Est GFR (Non-Af Amer) POC Glucose (mg/dL) 255 H 215 H Random Glucose Calcium Phosphorus Magnesium Total Bilirubin AST ALT Alkaline Phosphatase Total Protein Albumin Globulin Albumin/Globulin Ratio Vancomycin Trough Blood Type Antibody Screen 12/04/16 12/04/16 12/04/16 06:32 06:32 07:11 WBC RBC Hgb Hct MCV MCH MCHC RDW Plt Count MPV Neut % (Auto) Lymph % (Auto) [place] % (Auto) Eos % (Auto) Baso % (Auto) Neut # Lymph # [place] # Eos # Baso # Neutrophils % (Manual) Lymphocytes % (Manual) Monocytes % (Manual) Eosinophils % (Manual) Platelet Estimate Hypochromasia (manual) Poikilocytosis (manual Anisocytosis (manual) Ovalocytes [place] Cells Sodium 135 Potassium 3.9 Chloride 103 Carbon Dioxide 22 Anion Gap 15 BUN 28 H Creatinine 1.2 Est GFR ( Amer) > 60 Est GFR (Non-Af Amer) > 60 POC Glucose (mg/dL) 124 H Random Glucose 118 H Calcium 8.3 L Phosphorus 3.3 Magnesium 1.6 Total Bilirubin 0.3 AST 35 ALT 37 Alkaline Phosphatase 67 Total Protein 6.1 L Albumin 2.7 L Globulin 3.4 Albumin/Globulin Ratio 0.8 L Vancomycin Trough 10.6 H Blood Type Antibody Screen 12/04/16 12/04/16 10:06 11:05 WBC RBC Hgb Hct MCV MCH MCHC RDW Plt Count MPV Neut % (Auto) Lymph % (Auto) [place] % (Auto) Eos % (Auto) Baso % (Auto) Neut # Lymph # [place] # Eos # Baso # Neutrophils % (Manual) Lymphocytes % (Manual) Monocytes % (Manual) Eosinophils % (Manual) Platelet Estimate Hypochromasia (manual) Poikilocytosis (manual Anisocytosis (manual) Ovalocytes [place] Cells Sodium Potassium Chloride Carbon Dioxide Anion Gap BUN Creatinine Est GFR ( Amer) Est GFR (Non-Af Amer) POC Glucose (mg/dL) 210 H Random Glucose Calcium Phosphorus Magnesium Total Bilirubin AST ALT Alkaline Phosphatase Total Protein Albumin Globulin Albumin/Globulin Ratio Vancomycin Trough Blood Type O POSITIVE Antibody Screen Negative Fingerstick Blood Sugar Results: 210 Review of Systems - Constitutional Constitutional: absent: Fever, Chills, Weakness - EENT Eyes: absent: Blurred Vision, Change in Vision Ears: absent: Dizziness - Cardiovascular Cardiovascular: absent: Chest Pain, Diaphoresis, Dyspnea, Edema, Lightheadedness , Palpitations - Respiratory Respiratory: absent: Dyspnea, Dyspnea on Exertion - Gastrointestinal Gastrointestinal: absent: Cramping, Nausea, Vomiting - Musculoskeletal Musculoskeletal: absent: Numbness, Tingling - Neurological Neurological: absent: Dizziness, Headaches, Syncope, Weakness - Endocrine Endocrine: absent: Fatigue, Palpitations Critical Care Progress Note - Nutrition Nutrition: Nutrition Category Date Time Status Liquid Diet [DIET] Diets 12/04/16 Lunch Active Assessment/Plan - Assessment and Plan (Free Text) Assessment: Patient is a 70 year old male with past medical history of peripheral artery disease, carotid stenosis s/p carotid endarterectomy, ruptured right femoral pseudoaneurysm, dilated common bile duct, DM, HTN, bacteremia, depression. Patient had an emergent repair of ruptured right femoral artery pseudo- aneurysm with proximal ligatation and removal of femoral artery stent and patch (11/27/16). Currently, patient is s/p Right common iliac-popliteal bypass with 8mm PTFE and right femoral embolectomy POD#2 Today: Plan: Transfused 1 unit PRBC due to H/H: 8.4/24.4 Plan: Neuro: Alert, awake and oriented Vascular: Hx of PVD, S/P emergent repair of ruptured right femoral artery pseudo -aneurysm with proximal ligatation and removal of femoral artery stent and patch (11/27/16) and currently, patient is s/p Right common iliac-popliteal bypass with 8mm PTFE and right femoral embolectomy POD#2 Medication/Management * Crestor 10mg PO HS * Plavix 75mg PO daily * Dilaudid 1mg and 0.5mg IVP Q3H prn for pain control Cardio: Hx of HTN Medication/Management: * Norvasc 10mg PO daily * Lopressor 50mg PO BID * Lisinopril 10mg PO daily GI: Acute Coffee-Ground emesis, History of constipation and pancreatitis GI consult, Dr. Layton---> Help appreciated Medications: * Aspirin 81mg PO and plavix 75mg PO daily (Held due to coffee- ground emesis) * Colace 100 mg PO TID Endo: Hx of DM * Accuchecks * Levemir 18 units SC HS * Human regular 6 unit SC ACL * Human regular 6 unit SC ACD * Human regular 10 unit SC ACB * ISS- low dose protocol * Hypoglycemia protocol : Hx of BPH Medications/Management: * Flomax 0.4mg PO daily * Proscar 5mg PO daily Heme: History of anemia * Transfused 1 units PRBC (12/04/16) * Transfused 3 units PRBC post-operatively (12/02/16) Medication/Management: * Ferrous Sulfate 325mg PO BID ID: Leukocytosis, Bandemia, Hx of bactremia ID Consult, Dr. Herrera on board----> Help appreciated * Wound culture ( E.coli) - 11/27/16 Medications: * Vancomycin 1,000mg IVPN Q12H (Held due to elevated vanc trough) * Cefepime 1gm IVPB q12h Psych: Hx of depression Medication: Duloxetine 40mg PO HS Mirtazapine 30mg PO HS Prophylaxis: DVT: Heparin 5,000 units SC Q12H GI: Pepcid 20mg IVP Q12H, Zofran 4mg IVP Q6H prn Florastor 250mg PO BID <Sincere Zhou M - Last Filed: 12/04/16 16:53> CCU Objective - Vital Signs / Intake & Output Vital Signs (Last 4 hours): Vital Signs Temp Pulse Resp BP 12/04/16 15:00 97.1 F L 74 16 138/46 L 12/04/16 13:55 97.6 F 74 18 122/40 L 12/04/16 12:56 97.5 F L 71 24 151/42 H Intake and Output (Last 8hrs): Intake & Output 12/04/16 12/04/16 12/04/16 06:59 14:59 22:59 Intake Total 1300 875 0 Output Total 630 410 Balance 670 465 0 Intake: Intake, IV Amount 1200 425 Left Hand 1200 425 Oral 100 Blood Product 450 0 Red Blood Cells Cpd As1 325 0 Lr Unit [id number] Output: Urine 630 410 Urethral ([place]) 630 410 Oral Regurgitation 0 Other: # Bowel Movements 0 - Medications Active Medications: Active Medications Generic Name Dose Route Start Last Admin Trade Name Freq PRN Reason Stop Dose Admin Amlodipine Besylate 10 mg 11/27/16 10:00 12/04/16 09:14 Norvasc PO 10 mg DAILY LADONNA Administration Aspirin 325 mg 12/03/16 10:45 12/03/16 15:22 Aspirin PO Not Given DAILY LADONNA Clopidogrel Bisulfate 75 mg 12/03/16 10:45 12/03/16 15:22 Plavix PO Not Given DAILY [facility] Dextrose 0 ml 11/29/16 07:12 11/29/16 07:17 Dextrose 50% Inj IVP 50 ml .STAT PRN Administration Hypoglycemia Protocol Protocol Dextrose 0 gm 11/29/16 07:12 Glutose 15 PO .ONCE PRN Hypoglycemia Protocol Protocol Docusate Sodium 100 mg 11/27/16 14:00 12/04/16 15:20 Colace PO 100 mg TID LADONNA Administration Duloxetine HCl 40 mg 11/27/16 22:00 12/03/16 21:40 Cymbalta PO 40 mg HS LADONNA Administration Famotidine 20 mg 12/04/16 10:00 12/04/16 09:16 Pepcid PO 20 mg BID LADONNA Administration Ferrous Sulfate 325 mg 11/27/16 10:00 12/04/16 09:14 Feosol PO 325 mg BID LADONNA Administration Finasteride 5 mg 11/27/16 10:00 12/04/16 09:14 Proscar PO 5 mg DAILY LADONNA Administration Fluticasone Propionate 2 spr 11/27/16 10:00 12/04/16 12:38 Flonase EMMA Not Given DAILY LADONNA Glucagon 0 mg 11/29/16 07:12 Glucagen Diagnostic Kit IM .STAT PRN Hypoglycemia Protocol Protocol Heparin Sodium (Porcine) 5,000 units 12/03/16 22:00 12/04/16 12:00 Heparin SC 5,000 units Q12 LADONNA Administration Cefepime HCl 1 gm in 50 mls @ 100 mls/hr 11/27/16 20:00 12/04/16 09:00 Maxipime Iv 1 Gm Premix IVPB 100 mls/hr Q12H LADONNA Administration Vancomycin HCl 150 mls @ 100 mls/hr 12/01/16 00:30 12/02/16 00:58 Vancocin 750mg/D5w 150 Ml IVPB 12/05/16 00:31 100 mls/hr Q12H LADONNA Administration Lactated Ringer's 1,000 mls @ 125 mls/hr 12/03/16 09:15 12/04/16 09:20 Lactated Ringer's IV Not Given .Q8H LADONNA Insulin Detemir 18 unit 12/01/16 17:02 12/03/16 21:40 Levemir SC 18 unit HS LADONNA Administration Insulin Human Regular 6 unit 11/28/16 11:30 12/04/16 12:00 Novolin R SC 6 unit ACL LADONNA Administration Insulin Human Regular 6 unit 11/28/16 16:30 12/03/16 17:05 Novolin R SC Not Given ACD LADONNA Insulin Human Regular 10 unit 11/29/16 07:30 12/04/16 09:04 Novolin R SC Not Given ACB LADONNA Insulin Human Regular 5 unit 12/02/16 13:45 Novolin R IV ONCE LADONNA Insulin Human Regular 0 unit 12/02/16 16:30 12/04/16 12:00 Novolin R SC 4 unit ACHS LADONNA Administration Protocol Lisinopril 10 mg 11/30/16 10:00 12/04/16 09:14 Zestril PO 10 mg DAILY LADONNA Administration Metoprolol Tartrate 50 mg 11/28/16 10:00 12/04/16 09:14 Lopressor PO 50 mg BID LADONNA Administration Mirtazapine 30 mg 12/03/16 22:00 12/03/16 21:40 Remeron PO 30 mg HS LADONNA Administration Ondansetron HCl 4 mg 10/04/17 23:56 12/03/16 13:40 Zofran Inj IVP 4 mg Q6H PRN Administration Nausea/Vomiting Rosuvastatin Calcium 10 mg 11/27/16 18:00 12/03/16 17:32 Crestor PO 10 mg QPM LADONNA Administration Saccharomyces Boulardii 250 mg 11/30/16 21:00 12/04/16 09:14 Florastor PO 250 mg BID LADONNA Administration Tamsulosin HCl 0.4 mg 11/27/16 10:00 12/04/16 09:18 Flomax PO 0.4 mg DAILY LADONNA Administration Tramadol HCl 50 mg 12/03/16 10:00 12/04/16 15:27 Ultram PO 50 mg TID LADONNA Administration - Patient Studies Lab Studies: Microbiology Studies 12/02/16 21:08 MRSA Culture (Admit) - Final Naris MRSA NOT DETECTED Lab Studies 12/04/16 12/04/16 12/04/16 Range/Units 16:12 11:05 10:06 WBC (4.8-10.8) K/uL RBC (4.40-5.90) Mil/uL Hgb (12.0-18.0) g/dL Hct (35.0-51.0) % MCV (80.0-94.0) fL MCH (27.0-31.0) pg MCHC (33.0-37.0) g/dL RDW (11.5-14.5) % Plt Count (130-400) K/uL MPV (7.2-11.7) fL Neut % (Auto) (50.0-75.0) % Lymph % (Auto) (20.0-40.0) % [place] % (Auto) (0.0-10.0) % Eos % (Auto) (0.0-4.0) % Baso % (Auto) (0.0-2.0) % Neut # (1.8-7.0) K/uL Lymph # (1.0-4.3) K/uL [place] # (0.0-0.8) K/uL Eos # (0.0-0.7) K/uL Baso # (0.0-0.2) K/uL Neutrophils % (Manual) (50-75) % Lymphocytes % (Manual) (20-40) % Monocytes % (Manual) (0-10) % Eosinophils % (Manual) (0-4) % Platelet Estimate (NORMAL) Hypochromasia (manual) Poikilocytosis (manual Anisocytosis (manual) Ovalocytes [place] Cells Sodium (132-148) mmol/L Potassium (3.6-5.2) mmol/L Chloride (98-107) mmol/L Carbon Dioxide (22-30) mmol/L Anion Gap (10-20) BUN (9-20) mg/dL Creatinine (0.8-1.5) mg/dL Est GFR ( Amer) Est GFR (Non-Af Amer) POC Glucose (mg/dL) 160 H 210 H (65-110) mg/dL Random Glucose (75-110) mg/dL Calcium (8.6-10.4) mg/dl Phosphorus (2.5-4.5) mg/dL Magnesium (1.6-2.3) mg/dL Total Bilirubin (0.2-1.3) mg/dL AST (17-59) U/L ALT (21-72) U/L Alkaline Phosphatase (38-126) U/L Total Protein (6.3-8.3) g/dL Albumin (3.5-5.0) g/dL Globulin (2.2-3.9) gm/dL Albumin/Globulin Ratio (1.0-2.1) Vancomycin Trough (5.0-10.0) ug/mL Blood Type O POSITIVE Antibody Screen Negative 12/04/16 12/04/16 12/04/16 Range/Units 07:11 06:32 06:32 WBC (4.8-10.8) K/uL RBC (4.40-5.90) Mil/uL Hgb (12.0-18.0) g/dL Hct (35.0-51.0) % MCV (80.0-94.0) fL MCH (27.0-31.0) pg MCHC (33.0-37.0) g/dL RDW (11.5-14.5) % Plt Count (130-400) K/uL MPV (7.2-11.7) fL Neut % (Auto) (50.0-75.0) % Lymph % (Auto) (20.0-40.0) % [place] % (Auto) (0.0-10.0) % Eos % (Auto) (0.0-4.0) % Baso % (Auto) (0.0-2.0) % Neut # (1.8-7.0) K/uL Lymph # (1.0-4.3) K/uL [place] # (0.0-0.8) K/uL Eos # (0.0-0.7) K/uL Baso # (0.0-0.2) K/uL Neutrophils % (Manual) (50-75) % Lymphocytes % (Manual) (20-40) % Monocytes % (Manual) (0-10) % Eosinophils % (Manual) (0-4) % Platelet Estimate (NORMAL) Hypochromasia (manual) Poikilocytosis (manual Anisocytosis (manual) Ovalocytes [place] Cells Sodium 135 (132-148) mmol/L Potassium 3.9 (3.6-5.2) mmol/L Chloride 103 (98-107) mmol/L Carbon Dioxide 22 (22-30) mmol/L Anion Gap 15 (10-20) BUN 28 H (9-20) mg/dL Creatinine 1.2 (0.8-1.5) mg/dL Est GFR ( Amer) > 60 Est GFR (Non-Af Amer) > 60 POC Glucose (mg/dL) 124 H (65-110) mg/dL Random Glucose 118 H (75-110) mg/dL Calcium 8.3 L (8.6-10.4) mg/dl Phosphorus 3.3 (2.5-4.5) mg/dL Magnesium 1.6 (1.6-2.3) mg/dL Total Bilirubin 0.3 (0.2-1.3) mg/dL AST 35 (17-59) U/L ALT 37 (21-72) U/L Alkaline Phosphatase 67 (38-126) U/L Total Protein 6.1 L (6.3-8.3) g/dL Albumin 2.7 L (3.5-5.0) g/dL Globulin 3.4 (2.2-3.9) gm/dL Albumin/Globulin Ratio 0.8 L (1.0-2.1) Vancomycin Trough 10.6 H (5.0-10.0) ug/mL Blood Type Antibody Screen 12/04/16 12/03/16 Range/Units 06:32 21:13 WBC 13.1 H (4.8-10.8) K/uL RBC 2.80 L (4.40-5.90) Mil/uL Hgb 8.4 L (12.0-18.0) g/dL Hct 24.4 L (35.0-51.0) % MCV 87.2 (80.0-94.0) fL MCH 30.0 (27.0-31.0) pg MCHC 34.4 (33.0-37.0) g/dL RDW 15.6 H (11.5-14.5) % Plt Count 183 (130-400) K/uL MPV 7.9 (7.2-11.7) fL Neut % (Auto) 86.0 H (50.0-75.0) % Lymph % (Auto) 5.2 L (20.0-40.0) % [place] % (Auto) 5.6 (0.0-10.0) % Eos % (Auto) 2.8 (0.0-4.0) % Baso % (Auto) 0.4 (0.0-2.0) % Neut # 11.3 H (1.8-7.0) K/uL Lymph # 0.7 L (1.0-4.3) K/uL [place] # 0.7 (0.0-0.8) K/uL Eos # 0.4 (0.0-0.7) K/uL Baso # 0.1 (0.0-0.2) K/uL Neutrophils % (Manual) 84 H (50-75) % Lymphocytes % (Manual) 7 L (20-40) % Monocytes % (Manual) 6 (0-10) % Eosinophils % (Manual) 3 (0-4) % Platelet Estimate Normal (NORMAL) Hypochromasia (manual) Slight Poikilocytosis (manual Slight Anisocytosis (manual) Slight Ovalocytes Slight Myaelin Cells Slight Sodium (132-148) mmol/L Potassium (3.6-5.2) mmol/L Chloride (98-107) mmol/L Carbon Dioxide (22-30) mmol/L Anion Gap (10-20) BUN (9-20) mg/dL Creatinine (0.8-1.5) mg/dL Est GFR ( Amer) Est GFR (Non-Af Amer) POC Glucose (mg/dL) 215 H (65-110) mg/dL Random Glucose (75-110) mg/dL Calcium (8.6-10.4) mg/dl Phosphorus (2.5-4.5) mg/dL Magnesium (1.6-2.3) mg/dL Total Bilirubin (0.2-1.3) mg/dL AST (17-59) U/L ALT (21-72) U/L Alkaline Phosphatase (38-126) U/L Total Protein (6.3-8.3) g/dL Albumin (3.5-5.0) g/dL Globulin (2.2-3.9) gm/dL Albumin/Globulin Ratio (1.0-2.1) Vancomycin Trough (5.0-10.0) ug/mL Blood Type Antibody Screen Laboratory Results - last 24 hr 12/03/16 12/04/16 12/04/16 21:13 06:32 06:32 WBC 13.1 H RBC 2.80 L Hgb 8.4 L Hct 24.4 L MCV 87.2 MCH 30.0 MCHC 34.4 RDW 15.6 H Plt Count 183 MPV 7.9 Neut % (Auto) 86.0 H Lymph % (Auto) 5.2 L [place] % (Auto) 5.6 Eos % (Auto) 2.8 Baso % (Auto) 0.4 Neut # 11.3 H Lymph # 0.7 L [place] # 0.7 Eos # 0.4 Baso # 0.1 Neutrophils % (Manual) 84 H Lymphocytes % (Manual) 7 L Monocytes % (Manual) 6 Eosinophils % (Manual) 3 Platelet Estimate Normal Hypochromasia (manual) Slight Poikilocytosis (manual Slight Anisocytosis (manual) Slight Ovalocytes Slight [place] Cells Slight Sodium 135 Potassium 3.9 Chloride 103 Carbon Dioxide 22 Anion Gap 15 BUN 28 H Creatinine 1.2 Est GFR ( Amer) > 60 Est GFR (Non-Af Amer) > 60 POC Glucose (mg/dL) 215 H Random Glucose 118 H Calcium 8.3 L Phosphorus 3.3 Magnesium 1.6 Total Bilirubin 0.3 AST 35 ALT 37 Alkaline Phosphatase 67 Total Protein 6.1 L Albumin 2.7 L Globulin 3.4 Albumin/Globulin Ratio 0.8 L Vancomycin Trough Blood Type Antibody Screen 12/04/16 12/04/16 12/04/16 06:32 07:11 10:06 WBC RBC Hgb Hct MCV MCH MCHC RDW Plt Count MPV Neut % (Auto) Lymph % (Auto) [place] % (Auto) Eos % (Auto) Baso % (Auto) Neut # Lymph # [place] # Eos # Baso # Neutrophils % (Manual) Lymphocytes % (Manual) Monocytes % (Manual) Eosinophils % (Manual) Platelet Estimate Hypochromasia (manual) Poikilocytosis (manual Anisocytosis (manual) Ovalocytes [place] Cells Sodium Potassium Chloride Carbon Dioxide Anion Gap BUN Creatinine Est GFR ( Amer) Est GFR (Non-Af Amer) POC Glucose (mg/dL) 124 H Random Glucose Calcium Phosphorus Magnesium Total Bilirubin AST ALT Alkaline Phosphatase Total Protein Albumin Globulin Albumin/Globulin Ratio Vancomycin Trough 10.6 H Blood Type O POSITIVE Antibody Screen Negative 12/04/16 12/04/16 11:05 16:12 WBC RBC Hgb Hct MCV MCH MCHC RDW Plt Count MPV Neut % (Auto) Lymph % (Auto) [place] % (Auto) Eos % (Auto) Baso % (Auto) Neut # Lymph # [place] # Eos # Baso # Neutrophils % (Manual) Lymphocytes % (Manual) Monocytes % (Manual) Eosinophils % (Manual) Platelet Estimate Hypochromasia (manual) Poikilocytosis (manual Anisocytosis (manual) Ovalocytes [place] Cells Sodium Potassium Chloride Carbon Dioxide Anion Gap BUN Creatinine Est GFR ( Amer) Est GFR (Non-Af Amer) POC Glucose (mg/dL) 210 H 160 H Random Glucose Calcium Phosphorus Magnesium Total Bilirubin AST ALT Alkaline Phosphatase Total Protein Albumin Globulin Albumin/Globulin Ratio Vancomycin Trough Blood Type Antibody Screen Critical Care Progress Note - Nutrition Nutrition: Nutrition Category Date Time Status Liquid Diet [DIET] Diets 12/04/16 Lunch Active Attending/Attestation - Attestation I have personally seen and examined this patient.: Yes I have fully participated in the care of the patient.: Yes I have reviewed all pertinent clinical information: Yes Notes (Text): 12/04/16 16:52 Today: , December 04, 2016 The Patient was seen and examined at the bedside, Medical records reviewed, and management issues were discussed and formulated with the house staff. I have reviewed all the relevant clinical, laboratory, hemodynamic, radiographic data and medications Events reviewed Pain issues, skin care, head of the bed elevation, glycemic control were addressed. I concur with resident's assessment and plan of care as transcribed in Dr Gray note.
--- NOTE | 2016-12-04 16:23 | CP.PCM.PN ---
Subjective - Date & Time of Evaluation Date of Evaluation: 12/04/16 Time of Evaluation: 15:50 - Subjective Subjective: Medicine Attending (Medicine Consult) Note Patient seen and examined this afternoon. Patient seen this afternoon, denies headache, denies chest pain, denies shortness of breathe, reports mild abdominal pain and nausea which he attributes to his anti-nausea medication and pancreatic enzymes, reports has not had a bowel movement in 3 days but reports his normal is to go every 3 days. Encouraged patient to use prune juice to encourage bowel movement. Objective - Vital Signs/Intake and Output Vital Signs (last 24 hours): Temp Pulse Resp BP Pulse Ox 97.1 F L 74 16 138/46 L 99 12/04/16 15:00 12/04/16 15:00 12/04/16 15:00 12/04/16 15:00 12/04/16 11:00 Intake and Output: 12/04/16 12/04/16 06:59 18:59 Intake Total 2100 875 Output Total 805 410 Balance 1295 465 - Medications Medications: Current Medications Amlodipine Besylate (Norvasc) 10 mg PO DAILY [facility] Last Admin: 12/04/16 09:14 Dose: 10 mg Aspirin (Aspirin) 325 mg PO DAILY [facility] Last Admin: 12/03/16 15:22 Dose: Not Given Clopidogrel Bisulfate (Plavix) 75 mg PO DAILY [facility] Last Admin: 12/03/16 15:22 Dose: Not Given Dextrose (Dextrose 50% Inj) 0 ml IVP .STAT PRN; Protocol PRN Reason: Hypoglycemia Protocol Last Admin: 11/29/16 07:17 Dose: 50 ml Dextrose (Glutose 15) 0 gm PO .ONCE PRN; Protocol PRN Reason: Hypoglycemia Protocol Docusate Sodium (Colace) 100 mg PO TID [facility] Last Admin: 12/04/16 15:20 Dose: 100 mg Duloxetine HCl (Cymbalta) 40 mg PO HS [facility] Last Admin: 12/03/16 21:40 Dose: 40 mg Famotidine (Pepcid) 20 mg PO BID [facility] Last Admin: 12/04/16 09:16 Dose: 20 mg Ferrous Sulfate (Feosol) 325 mg PO BID [facility] Last Admin: 12/04/16 09:14 Dose: 325 mg Finasteride (Proscar) 5 mg PO DAILY [facility] Last Admin: 12/04/16 09:14 Dose: 5 mg Fluticasone Propionate (Flonase) 2 spr EMMA DAILY [facility] Last Admin: 12/04/16 12:38 Dose: Not Given Glucagon (Glucagen Diagnostic Kit) 0 mg IM .STAT PRN; Protocol PRN Reason: Hypoglycemia Protocol Heparin Sodium (Porcine) (Heparin) 5,000 units SC Q12 [facility] Last Admin: 12/04/16 12:00 Dose: 5,000 units Cefepime HCl (Maxipime Iv 1 Gm Premix) 1 gm in 50 mls @ 100 mls/hr IVPB Q12H [facility] Last Admin: 12/04/16 09:00 Dose: 100 mls/hr Vancomycin HCl (Vancocin 750mg/D5w 150 Ml) 150 mls @ 100 mls/hr IVPB Q12H [facility] Stop: 12/05/16 00:31 Last Admin: 12/02/16 00:58 Dose: 100 mls/hr Lactated Ringer's (Lactated Ringer's) 1,000 mls @ 125 mls/hr IV .Q8H [facility] Last Admin: 12/04/16 09:20 Dose: Not Given Insulin Detemir (Levemir) 18 unit SC HS [facility] Last Admin: 12/03/16 21:40 Dose: 18 unit Insulin Human Regular (Novolin R) 6 unit SC ACL [facility] Last Admin: 12/04/16 12:00 Dose: 6 unit Insulin Human Regular (Novolin R) 6 unit SC ACD [facility] Last Admin: 12/03/16 17:05 Dose: Not Given Insulin Human Regular (Novolin R) 10 unit SC ACB [facility] Last Admin: 12/04/16 09:04 Dose: Not Given Insulin Human Regular (Novolin R) 5 unit IV ONCE [facility] Insulin Human Regular (Novolin R) 0 unit SC ACHS [facility] PRN Reason: Protocol Last Admin: 12/04/16 12:00 Dose: 4 unit Lisinopril (Zestril) 10 mg PO DAILY [facility] Last Admin: 12/04/16 09:14 Dose: 10 mg Metoprolol Tartrate (Lopressor) 50 mg PO BID [facility] Last Admin: 12/04/16 09:14 Dose: 50 mg Mirtazapine (Remeron) 30 mg PO HS [facility] Last Admin: 12/03/16 21:40 Dose: 30 mg Ondansetron HCl (Zofran Inj) 4 mg IVP Q6H PRN PRN Reason: Nausea/Vomiting Last Admin: 12/03/16 13:40 Dose: 4 mg Rosuvastatin Calcium (Crestor) 10 mg PO QPM [facility] Last Admin: 12/03/16 17:32 Dose: 10 mg Saccharomyces Boulardii (Florastor) 250 mg PO BID [facility] Last Admin: 12/04/16 09:14 Dose: 250 mg Tamsulosin HCl (Flomax) 0.4 mg PO DAILY [facility] Last Admin: 12/04/16 09:18 Dose: 0.4 mg Tramadol HCl (Ultram) 50 mg PO TID [facility] Last Admin: 12/04/16 15:27 Dose: 50 mg - Labs Labs: 12/04/16 06:32 12/04/16 06:32 PT 13.1 SECONDS (9.7-12.2) H 12/03/16 14:47 INR 1.1 12/03/16 14:47 APTT 41 SECONDS (21-34) H 12/01/16 07:51 - Constitutional Appears: Non-toxic, No Acute Distress - Head Exam Head Exam: NORMAL INSPECTION - Eye Exam Eye Exam: EOMI - ENT Exam ENT Exam: Mucous Membranes Moist - Respiratory Exam Respiratory Exam: Clear to Ausculation Bilateral, NORMAL BREATHING PATTERN - Cardiovascular Exam Cardiovascular Exam: REGULAR RHYTHM, +S1, +S2 - GI/Abdominal Exam GI & Abdominal Exam: Soft, Hypoactive Bowel Sounds Additional comments: tender to palpatiion surgical dressing-->covered in Betadine english in place - Extremities Exam Additional comments: right lower extremity: foot is warm to touch, no scd left lower extremity: no cyanosis, no clubbing, no edema, warm to touch - Neurological Exam Neurological Exam: Alert, Awake, Oriented x3 - Psychiatric Exam Psychiatric exam: Normal Affect, Normal Mood - Skin Skin Exam: Dry, Normal Color, Warm Attending/Attestation - Attestation I have personally seen and examined this patient.: Yes I have fully participated in the care of the patient.: Yes I have reviewed all pertinent clinical information, including history, physical exam and plan: Yes Notes (Text): Leukocytosis improving H/H stable No further episodes of questionable coffee-ground emesis; appreciate GI input Management per surgery Medicine to continue to follow; will resume fpc insulin when patient tolerates diet. 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 - POD #2 s/p Right common iliac-popliteal bypass with 8mm PTFE and right femoral embolectomy Vascular Surgeon, Dr Lorenzo is the Primary on the case Infectious Disease, Dr Herrera, consulted- help appreciated * Contact isolation * Right Groin Wound Culture 11/27/16-->E . Coli and MRSA * Wound culture: 11/27/16-->E. Coli * Blood Culture 11/27/16 shows no growth 5 days X2 * Pain control with Hydromorphone * Vancomycin 750 gm IV Q12h (12/01/16)--->elevated vancomycin trough; held vanco light of trough 12/02; random vancomycin level * Vancomycin resumed per ID; vancomycin trough improved * Cefepime 1 gm IV Q12H (11/27/16-ON) Status: Acute (2) Elevated alkaline phosphatase level Assessment and Plan: * Resolved * Per chart review, patient with Hx Dilated CBD * On prior admission patient was advised to follow up with outpatient elective cholecystectomy (3) STEVEN (acute kidney injury) Assessment and Plan: * Resolved * Will continue to monitor * vanco held in light of elevated trough on 12/02 * ID resumed vancomycin Status: Acute (4) Hyponatremia * This has resolved * Monitor (5) Acidosis likely Metabolic * Could be secondary to recent surgery vs possible infected right femoral artery catheter which was removed vs compounded by the use of Glipizide for DM 2 * Patient is resumed Vancomycin and Cefepime * Glipizide has been discontinued * This has resolved (6) Abdominal Bruit * Abdominal Aorta U/S ordered on 11/27/16 was discontinued as patient had Abdominal Angiography performed on 10/21/16 and this did NOT show Abdominal Aneurysm. Please see full report for finding of Right Femoral Artery Pseudoaneurysm. (7) History of Diabetes Mellitus 2 Assessment and Plan: * RISS - medium dose * Holding Glipizide because of the acidosis upon admission * Continue home Insulin Regimen: * Levemir 36 Units SC HS--->to give 1/2 dose tonight prior to OR (18 units subHS) and resume full dose post OR, Regular Insulin (Lispro not carried by our pharmacy) 10 Units SC ACB and 6 Units SC ACLD * Continue Accuchecks ACHS * Rosuvastatin 10mg PO HS * Lisinopril 10mg PO daily Status: Chronic (8) History Hypertension Assessment and Plan: * Resumed Lisinopril 10mg PO daily on 11/30/16 * Resumed Amlodipine 10mg PO 1x/day * Resumed Metoprolol tartrate 50 mg PO 2x/day with holding parameters 11/28/16 * Continue to monitor q6h Status: Chronic (9) History of anemia Assessment and Plan: * HgB/Hct are stable * Ferrous Sulfate 325mg PO 2x/day Status: Chronic (10) History Chronic pancreatitis Assessment and Plan: * Creon [id number] PO TID AC Meals not carried by our pharmacy therefore equilavent dose of Pacreaze Status: Chronic (11) History of depression Assessment and Plan: * Duloxetine 40mg PO HS * Mirtazapine 30mg PO HS Status: Chronic (12) History of BPH Assessment and Plan: * Finasteride 5mg PO 1x/day * Flomax 0.4 mg PO 1x/day Status: Chronic (13) History of Constipation * Colace 100 mg PO TID * Monitor bowel movement (14) Prophylactic measure Assessment and Plan: * GI: pepcid 20mg PO q12h * DVT: Patient is heparin dvt per vascular surgery; holding aspirin/plavix 12/03 * Diet: Heart healthy, diabetic diet
--- NOTE | 2016-12-04 18:08 | CP.PCM.PN ---
Subjective - Date & Time of Evaluation Date of Evaluation: 12/04/16 Time of Evaluation: 08:00 - Subjective Subjective: Patient is s/p right common iliac-popliteal bypass with 8mm PTFE and right femoral embolectomy, POD#2. Objective - Vital Signs/Intake and Output Vital Signs (last 24 hours): Temp Pulse Resp BP Pulse Ox 97.1 F L 74 16 138/46 L 99 12/04/16 15:00 12/04/16 15:00 12/04/16 15:00 12/04/16 15:00 12/04/16 11:00 Intake and Output: 12/04/16 12/04/16 06:59 18:59 Intake Total 2100 875 Output Total 805 410 Balance 1295 465 - Medications Medications: Current Medications Amlodipine Besylate (Norvasc) 10 mg PO DAILY [facility] Last Admin: 12/04/16 09:14 Dose: 10 mg Aspirin (Aspirin) 325 mg PO DAILY [facility] Last Admin: 12/03/16 15:22 Dose: Not Given Clopidogrel Bisulfate (Plavix) 75 mg PO DAILY [facility] Last Admin: 12/03/16 15:22 Dose: Not Given Dextrose (Dextrose 50% Inj) 0 ml IVP .STAT PRN; Protocol PRN Reason: Hypoglycemia Protocol Last Admin: 11/29/16 07:17 Dose: 50 ml Dextrose (Glutose 15) 0 gm PO .ONCE PRN; Protocol PRN Reason: Hypoglycemia Protocol Docusate Sodium (Colace) 100 mg PO TID [facility] Last Admin: 12/04/16 17:58 Dose: 100 mg Duloxetine HCl (Cymbalta) 40 mg PO HS [facility] Last Admin: 12/03/16 21:40 Dose: 40 mg Famotidine (Pepcid) 20 mg PO BID [facility] Last Admin: 12/04/16 17:58 Dose: 20 mg Ferrous Sulfate (Feosol) 325 mg PO BID [facility] Last Admin: 12/04/16 17:58 Dose: 325 mg Finasteride (Proscar) 5 mg PO DAILY [facility] Last Admin: 12/04/16 09:14 Dose: 5 mg Fluticasone Propionate (Flonase) 2 spr EMMA DAILY [facility] Last Admin: 12/04/16 12:38 Dose: Not Given Glucagon (Glucagen Diagnostic Kit) 0 mg IM .STAT PRN; Protocol PRN Reason: Hypoglycemia Protocol Heparin Sodium (Porcine) (Heparin) 5,000 units SC Q12 [facility] Last Admin: 12/04/16 12:00 Dose: 5,000 units Cefepime HCl (Maxipime Iv 1 Gm Premix) 1 gm in 50 mls @ 100 mls/hr IVPB Q12H [facility] Last Admin: 12/04/16 09:00 Dose: 100 mls/hr Vancomycin HCl (Vancocin 750mg/D5w 150 Ml) 150 mls @ 100 mls/hr IVPB Q12H [facility] Stop: 12/05/16 00:31 Last Admin: 12/02/16 00:58 Dose: 100 mls/hr Lactated Ringer's (Lactated Ringer's) 1,000 mls @ 125 mls/hr IV .Q8H [facility] Last Admin: 12/04/16 17:55 Dose: 125 mls/hr Insulin Detemir (Levemir) 18 unit SC HS [facility] Last Admin: 12/03/16 21:40 Dose: 18 unit Insulin Human Regular (Novolin R) 6 unit SC ACL [facility] Last Admin: 12/04/16 12:00 Dose: 6 unit Insulin Human Regular (Novolin R) 6 unit SC ACD [facility] Last Admin: 12/04/16 17:00 Dose: 6 unit Insulin Human Regular (Novolin R) 10 unit SC ACB [facility] Last Admin: 12/04/16 09:04 Dose: Not Given Insulin Human Regular (Novolin R) 5 unit IV ONCE [facility] Insulin Human Regular (Novolin R) 0 unit SC ACHS [facility] PRN Reason: Protocol Last Admin: 12/04/16 17:00 Dose: 4 unit Lisinopril (Zestril) 10 mg PO DAILY [facility] Last Admin: 12/04/16 09:14 Dose: 10 mg Metoprolol Tartrate (Lopressor) 50 mg PO BID [facility] Last Admin: 12/04/16 17:58 Dose: 50 mg Mirtazapine (Remeron) 30 mg PO HS [facility] Last Admin: 12/03/16 21:40 Dose: 30 mg Ondansetron HCl (Zofran Inj) 4 mg IVP Q6H PRN PRN Reason: Nausea/Vomiting Last Admin: 12/03/16 13:40 Dose: 4 mg Oxycodone/Acetaminophen (Percocet 5/325 Mg Tab) 2 tab PO Q4H PRN PRN Reason: Pain, moderate (4-7) Stop: 12/07/16 17:48 Oxycodone/Acetaminophen (Percocet 5/325 Mg Tab) 1 tab PO Q4H PRN PRN Reason: Pain, Mild (1-3) Stop: 12/07/16 17:48 Rosuvastatin Calcium (Crestor) 10 mg PO QPM [facility] Last Admin: 12/04/16 17:58 Dose: 10 mg Saccharomyces Boulardii (Florastor) 250 mg PO BID [facility] Last Admin: 12/04/16 17:57 Dose: 250 mg Tamsulosin HCl (Flomax) 0.4 mg PO DAILY [facility] Last Admin: 12/04/16 09:18 Dose: 0.4 mg - Labs Labs: 12/04/16 06:32 12/04/16 06:32 PT 13.1 SECONDS (9.7-12.2) H 12/03/16 14:47 INR 1.1 12/03/16 14:47 APTT 41 SECONDS (21-34) H 12/01/16 07:51 - Constitutional Appears: Non-toxic, Chronically Ill - Head Exam Head Exam: NORMOCEPHALIC - Eye Exam Eye Exam: PERRL - ENT Exam ENT Exam: Mucous Membranes Dry - Neck Exam Neck Exam: absent: Lymphadenopathy - Respiratory Exam Respiratory Exam: Decreased Breath Sounds - Cardiovascular Exam Cardiovascular Exam: REGULAR RHYTHM - GI/Abdominal Exam GI & Abdominal Exam: Distended, Soft - Rectal Exam Rectal Exam: Deferred - Exam Exam: NORMAL INSPECTION - Extremities Exam Extremities Exam: Tenderness. absent: Calf Tenderness, Pedal Edema - Back Exam Back Exam: absent: paraspinal tenderness - Neurological Exam Neurological Exam: Alert, Awake, Oriented x3 - Skin Skin Exam: Dry Assessment and Plan (1) Femoral artery aneurysm, right Status: Acute (2) H/O ruptured arterial aneurysm Status: Resolved (3) S/P aneurysm repair Status: Acute - Assessment and Plan (Free Text) Assessment: Patient is s/p right common iliac-popliteal bypass with 8mm PTFE and right femoral embolectomy, POD#2. cont rx MRSA/ E coli
[2016-12-04] MEDS: Oxycodone/Acetaminophen 5/325 mg Tab PO PRN ×2 (18:11→23:41)
[2016-12-04] MEDS: Insulin Detemir 100 units/ml Vial (Levemir) SC SCH (22:05)
[2016-12-05] MEDS: Vancomycin 750mg/D5W 150 ml 150 ML IVPB SCH ×2 (00:30→22:16)
[2016-12-05] MEDS: Lactated Ringer's 1,000 ML IV SCH ×2 (01:30→09:36)
[2016-12-05 06:15] LABS: BASO # 0.1 K/uL (0.0-0.2); BASO % 0.8 % (0.0-2.0); EOS # 0.4 K/uL (0.0-0.7); EOS % 4.3 % (0.0-4.0); HEMATOCRIT 28.3 % (35.0-51.0); LYMPH # 0.8 K/uL (1.0-4.3); LYMPH % 8.9 % (20.0-40.0); MEAN CELL VOLUME 88.1 fL (80.0-94.0); MEAN CORPUSCULAR HEMOGLOBIN 29.9 pg (27.0-31.0); MEAN CORPUSCULAR HGB CONC 33.9 g/dL (33.0-37.0); MEAN PLATELET VOLUME 7.7 fL (7.2-11.7); MONO # 0.6 K/uL (0.0-0.8); PLATELET COUNT 170 K/uL (130-400); RED CELL DISTRIBUTION WIDTH 15.5 % (11.5-14.5); WHITE BLOOD COUNT 8.6 K/uL (4.8-10.8)
[2016-12-05 06:22] LABS: CHLORIDE 102 mmol/L (98-107); POTASSIUM 4.4 mmol/L (3.6-5.2); SODIUM 136 mmol/L (132-148)
[2016-12-05 06:24] LABS: ALB/GLOB RATIO 0.8 (1.0-2.1); AST/SGOT 32 U/L (17-59); BILIRUBIN,TOTAL 0.5 mg/dL (0.2-1.3); CARBON DIOXIDE 25 mmol/L (22-30); GFR AFRICAN-AMERICAN > 60; TOTAL PROTEIN 6.7 g/dL (6.3-8.3)
[2016-12-05 06:25] LABS: ALKALINE PHOSPHATASE 77 U/L (38-126); ALT/SGPT 41 U/L (21-72); BLOOD UREA NITROGEN 23 mg/dL (9-20); CALCIUM 8.7 mg/dl (8.6-10.4); GLUCOSE,RANDOM 154 mg/dL (75-110)
[2016-12-05 06:26] LABS: MAGNESIUM 1.6 mg/dL (1.6-2.3); PHOSPHOROUS 2.8 mg/dL (2.5-4.5)
[2016-12-05] MEDS: (Novolin R) Insulin Human Regular 100 units/ml vial SC SCH ×7 (07:30→21:26)
[2016-12-05] MEDS: Oxycodone/Acetaminophen 5/325 mg Tab PO PRN ×2 (07:42→20:21)
[2016-12-05 08:27] LABS: BASOPHIL 2 % (0-2); EOSINOPHIL 3 % (0-4); NEUTROPHIL 74 % (50-75); TOTAL CELLS COUNTED 100
[2016-12-05] MEDS: Cefepime IV 1 gm in Dextrose 1 GM/50 ML BAG IVPB SCH ×2 (08:55→20:42)
[2016-12-05] MEDS: Saccharomyces Boulardi 250 mg Cap PO SCH ×3 (09:28→19:36)
[2016-12-05] MEDS: LIPASE/PROTEASE/AMYLASE 4,200 U ECC PO SCH ×4 (09:55→19:38)
--- NOTE | 2016-12-05 14:58 | CP.CCUPN ---
<Wisam Gray E - Last Filed: 12/05/16 15:09> CCU Subjective - Physician Review Subjective (Free Text): Patient was seen and examined at bedside. Patient is s/p right common iliac- popliteal bypass with 8mm PTFE and right femoral embolectomy, POD#3. Patient reports that he is doing well and his pain is well-controlled. Patient denies chest pain, SOB, palpitations, fever, chills, nausea and vomiting. Patient continues to tolerate liquid diet. CCU Objective - Vital Signs / Intake & Output Intake and Output (Last 8hrs): Intake & Output 12/04/16 12/05/16 12/05/16 22:59 06:59 14:59 Intake Total 1750 1360 125 Output Total 880 1700 Balance 870 -340 125 Intake: Intake, IV Amount 1050 1000 125 Left Hand 1050 1000 125 Oral 700 360 0 Blood Product 0 Red Blood Cells Cpd As1 0 Lr Unit [id number] Output: Urine 880 1700 Urethral ([place]) 580 Urine, Voided 300 1700 - Physical Exam Head: Positive for: Atraumatic, Normocephalic Extroacular Muscles: Positive for: EOMI Respiratory/Chest: Positive for: Decreased Breath Sounds. Negative for: Respiratory Distress, Accessory Muscle Use Cardiovascular: Positive for: Regular Rate and Rhythm, Murmurs, Normal S1, S2 Abdomen: Positive for: Tenderness, Normal Bowel Sounds Upper Extremity: Positive for: Normal Inspection. Negative for: Edema Lower Extremity: Positive for: Normal Inspection (Right Foot is warm to touch, audible DP and PT pulses with doppler ). Negative for: Edema Neurological: Positive for: GCS=15, Speech Normal Skin: Positive for: Normal Color Psychiatric: Positive for: Alert, Oriented x 3 - Medications Active Medications: Active Medications Generic Name Dose Route Start Last Admin Trade Name Freq PRN Reason Stop Dose Admin Amlodipine Besylate 10 mg 11/27/16 10:00 12/05/16 09:29 Norvasc PO 10 mg DAILY LADONNA Administration Aspirin 325 mg 12/03/16 10:45 12/05/16 09:27 Aspirin PO 325 mg DAILY LADONNA Administration Clopidogrel Bisulfate 75 mg 12/03/16 10:45 12/05/16 09:29 Plavix PO 75 mg DAILY LADONNA Administration Dextrose 0 ml 11/29/16 07:12 11/29/16 07:17 Dextrose 50% Inj IVP 50 ml .STAT PRN Administration Hypoglycemia Protocol Protocol Dextrose 0 gm 11/29/16 07:12 Glutose 15 PO .ONCE PRN Hypoglycemia Protocol Protocol Docusate Sodium 100 mg 11/27/16 14:00 12/05/16 09:29 Colace PO 100 mg TID LADONNA Administration Duloxetine HCl 40 mg 11/27/16 22:00 12/04/16 21:43 Cymbalta PO 40 mg HS LADONNA Administration Famotidine 20 mg 12/04/16 10:00 12/05/16 09:28 Pepcid PO 20 mg BID LADONNA Administration Ferrous Sulfate 325 mg 11/27/16 10:00 12/05/16 09:38 Feosol PO 325 mg BID LADONNA Administration Finasteride 5 mg 11/27/16 10:00 12/05/16 09:30 Proscar PO 5 mg DAILY LADONNA Administration Fluticasone Propionate 2 spr 11/27/16 10:00 12/04/16 12:38 Flonase EMMA Not Given DAILY LADONNA Glucagon 0 mg 11/29/16 07:12 Glucagen Diagnostic Kit IM .STAT PRN Hypoglycemia Protocol Protocol Heparin Sodium (Porcine) 5,000 units 12/03/16 22:00 12/05/16 09:28 Heparin SC 5,000 units Q12 LADONNA Administration Cefepime HCl 1 gm in 50 mls @ 100 mls/hr 11/27/16 20:00 12/05/16 08:55 Maxipime Iv 1 Gm Premix IVPB 100 mls/hr Q12H LADONNA Administration Insulin Detemir 18 unit 12/01/16 17:02 12/04/16 22:05 Levemir SC 18 unit HS LADONNA Administration Insulin Human Regular 6 unit 11/28/16 11:30 12/04/16 12:00 Novolin R SC 6 unit ACL LADONNA Administration Insulin Human Regular 6 unit 11/28/16 16:30 12/04/16 17:00 Novolin R SC 6 unit ACD LADONNA Administration Insulin Human Regular 10 unit 11/29/16 07:30 12/05/16 08:05 Novolin R SC 10 unit ACB LADONNA Administration Insulin Human Regular 5 unit 12/02/16 13:45 Novolin R IV ONCE LADONNA Insulin Human Regular 0 unit 12/02/16 16:30 12/05/16 07:30 Novolin R SC Not Given ACHS LADONNA Protocol Lisinopril 10 mg 11/30/16 10:00 12/05/16 09:27 Zestril PO 10 mg DAILY LADONNA Administration Metoprolol Tartrate 50 mg 11/28/16 10:00 12/05/16 09:45 Lopressor PO 50 mg BID LADONNA Administration Mirtazapine 30 mg 12/03/16 22:00 12/04/16 21:43 Remeron PO 30 mg HS LADONNA Administration Ondansetron HCl 4 mg 11/26/16 23:56 12/05/16 09:30 Zofran Inj IVP 4 mg Q6H PRN Administration Nausea/Vomiting Oxycodone/Acetaminophen 2 tab 12/04/16 17:47 Percocet 5/325 Mg Tab PO 12/07/16 17:48 Q4H PRN Pain, moderate (4-7) Oxycodone/Acetaminophen 1 tab 12/04/16 17:47 12/05/16 07:42 Percocet 5/325 Mg Tab PO 12/07/16 17:48 1 tab Q4H PRN Administration Pain, Mild (1-3) Rosuvastatin Calcium 10 mg 11/27/16 18:00 12/04/16 17:58 Crestor PO 10 mg QPM LADONNA Administration Saccharomyces Boulardii 250 mg 11/30/16 21:00 12/05/16 09:41 Florastor PO 250 mg BID LADONNA Administration Tamsulosin HCl 0.4 mg 11/27/16 10:00 12/05/16 09:27 Flomax PO 0.4 mg DAILY LADONNA Administration - Patient Studies Lab Studies: Lab Studies 12/05/16 12/05/16 12/05/16 Range/Units 13:38 12:30 12:03 WBC (4.8-10.8) K/uL RBC (4.40-5.90) Mil/uL Hgb (12.0-18.0) g/dL Hct (35.0-51.0) % MCV (80.0-94.0) fL MCH (27.0-31.0) pg MCHC (33.0-37.0) g/dL RDW (11.5-14.5) % Plt Count (130-400) K/uL MPV (7.2-11.7) fL Neut % (Auto) (50.0-75.0) % Lymph % (Auto) (20.0-40.0) % Wake % (Auto) (0.0-10.0) % Eos % (Auto) (0.0-4.0) % Baso % (Auto) (0.0-2.0) % Neut # (1.8-7.0) K/uL Lymph # (1.0-4.3) K/uL Wake # (0.0-0.8) K/uL Eos # (0.0-0.7) K/uL Baso # (0.0-0.2) K/uL Neutrophils % (Manual) (50-75) % Band Neutrophils % (0-2) % Lymphocytes % (Manual) (20-40) % Monocytes % (Manual) (0-10) % Eosinophils % (Manual) (0-4) % Basophils % (Manual) (0-2) % Platelet Estimate (NORMAL) Hypochromasia (manual) Poikilocytosis (manual Anisocytosis (manual) Ovalocytes Sodium (132-148) mmol/L Potassium (3.6-5.2) mmol/L Chloride (98-107) mmol/L Carbon Dioxide (22-30) mmol/L Anion Gap (10-20) BUN (9-20) mg/dL Creatinine (0.8-1.5) mg/dL Est GFR ( Amer) Est GFR (Non-Af Amer) POC Glucose (mg/dL) 105 66 57 L (65-110) mg/dL Random Glucose (75-110) mg/dL Calcium (8.6-10.4) mg/dl Phosphorus (2.5-4.5) mg/dL Magnesium (1.6-2.3) mg/dL Total Bilirubin (0.2-1.3) mg/dL AST (17-59) U/L ALT (21-72) U/L Alkaline Phosphatase (38-126) U/L Total Protein (6.3-8.3) g/dL Albumin (3.5-5.0) g/dL Globulin (2.2-3.9) gm/dL Albumin/Globulin Ratio (1.0-2.1) 10/13/17 10/13/17 10/13/17 Range/Units 07:23 06:04 06:04 WBC (4.8-10.8) K/uL RBC (4.40-5.90) Mil/uL Hgb (12.0-18.0) g/dL Hct (35.0-51.0) % MCV (80.0-94.0) fL MCH (27.0-31.0) pg MCHC (33.0-37.0) g/dL RDW (11.5-14.5) % Plt Count (130-400) K/uL MPV (7.2-11.7) fL Neut % (Auto) (50.0-75.0) % Lymph % (Auto) (20.0-40.0) % Wake % (Auto) (0.0-10.0) % Eos % (Auto) (0.0-4.0) % Baso % (Auto) (0.0-2.0) % Neut # (1.8-7.0) K/uL Lymph # (1.0-4.3) K/uL Wake # (0.0-0.8) K/uL Eos # (0.0-0.7) K/uL Baso # (0.0-0.2) K/uL Neutrophils % (Manual) (50-75) % Band Neutrophils % (0-2) % Lymphocytes % (Manual) (20-40) % Monocytes % (Manual) (0-10) % Eosinophils % (Manual) (0-4) % Basophils % (Manual) (0-2) % Platelet Estimate (NORMAL) Hypochromasia (manual) Poikilocytosis (manual Anisocytosis (manual) Ovalocytes Sodium 136 (132-148) mmol/L Potassium 4.4 (3.6-5.2) mmol/L Chloride 102 (98-107) mmol/L Carbon Dioxide 25 (22-30) mmol/L Anion Gap 13 (10-20) BUN 23 H (9-20) mg/dL Creatinine 1.2 (0.8-1.5) mg/dL Est GFR ( Amer) > 60 Est GFR (Non-Af Amer) > 60 POC Glucose (mg/dL) 185 H (65-110) mg/dL Random Glucose 154 H (75-110) mg/dL Calcium 8.7 (8.6-10.4) mg/dl Phosphorus 2.8 (2.5-4.5) mg/dL Magnesium 1.6 (1.6-2.3) mg/dL Total Bilirubin 0.5 (0.2-1.3) mg/dL AST 32 (17-59) U/L ALT 41 (21-72) U/L Alkaline Phosphatase 77 (38-126) U/L Total Protein 6.7 (6.3-8.3) g/dL Albumin 3.0 L (3.5-5.0) g/dL Globulin 3.7 (2.2-3.9) gm/dL Albumin/Globulin Ratio 0.8 L (1.0-2.1) 12/05/16 12/04/16 12/04/16 Range/Units 06:04 22:03 16:12 WBC 8.6 (4.8-10.8) K/uL RBC 3.21 L (4.40-5.90) Mil/uL Hgb 9.6 L (12.0-18.0) g/dL Hct 28.3 L (35.0-51.0) % MCV 88.1 (80.0-94.0) fL MCH 29.9 (27.0-31.0) pg MCHC 33.9 (33.0-37.0) g/dL RDW 15.5 H (11.5-14.5) % Plt Count 170 (130-400) K/uL MPV 7.7 (7.2-11.7) fL Neut % (Auto) 79.0 H (50.0-75.0) % Lymph % (Auto) 8.9 L (20.0-40.0) % Wake % (Auto) 7.0 (0.0-10.0) % Eos % (Auto) 4.3 H (0.0-4.0) % Baso % (Auto) 0.8 (0.0-2.0) % Neut # 6.8 (1.8-7.0) K/uL Lymph # 0.8 L (1.0-4.3) K/uL Wake # 0.6 (0.0-0.8) K/uL Eos # 0.4 (0.0-0.7) K/uL Baso # 0.1 (0.0-0.2) K/uL Neutrophils % (Manual) 74 (50-75) % Band Neutrophils % 1 (0-2) % Lymphocytes % (Manual) 13 L (20-40) % Monocytes % (Manual) 7 (0-10) % Eosinophils % (Manual) 3 (0-4) % Basophils % (Manual) 2 (0-2) % Platelet Estimate Normal (NORMAL) Hypochromasia (manual) Slight Poikilocytosis (manual Slight Anisocytosis (manual) Slight Ovalocytes Slight Sodium (132-148) mmol/L Potassium (3.6-5.2) mmol/L Chloride (98-107) mmol/L Carbon Dioxide (22-30) mmol/L Anion Gap (10-20) BUN (9-20) mg/dL Creatinine (0.8-1.5) mg/dL Est GFR ( Amer) Est GFR (Non-Af Amer) POC Glucose (mg/dL) 141 H 160 H (65-110) mg/dL Random Glucose (75-110) mg/dL Calcium (8.6-10.4) mg/dl Phosphorus (2.5-4.5) mg/dL Magnesium (1.6-2.3) mg/dL Total Bilirubin (0.2-1.3) mg/dL AST (17-59) U/L ALT (21-72) U/L Alkaline Phosphatase (38-126) U/L Total Protein (6.3-8.3) g/dL Albumin (3.5-5.0) g/dL Globulin (2.2-3.9) gm/dL Albumin/Globulin Ratio (1.0-2.1) Laboratory Results - last 24 hr 12/04/16 12/04/16 12/05/16 16:12 22:03 06:04 WBC 8.6 RBC 3.21 L Hgb 9.6 L Hct 28.3 L MCV 88.1 MCH 29.9 MCHC 33.9 RDW 15.5 H Plt Count 170 MPV 7.7 Neut % (Auto) 79.0 H Lymph % (Auto) 8.9 L Wake % (Auto) 7.0 Eos % (Auto) 4.3 H Baso % (Auto) 0.8 Neut # 6.8 Lymph # 0.8 L Wake # 0.6 Eos # 0.4 Baso # 0.1 Neutrophils % (Manual) 74 Band Neutrophils % 1 Lymphocytes % (Manual) 13 L Monocytes % (Manual) 7 Eosinophils % (Manual) 3 Basophils % (Manual) 2 Platelet Estimate Normal Hypochromasia (manual) Slight Poikilocytosis (manual Slight Anisocytosis (manual) Slight Ovalocytes Slight Sodium Potassium Chloride Carbon Dioxide Anion Gap BUN Creatinine Est GFR ( Amer) Est GFR (Non-Af Amer) POC Glucose (mg/dL) 160 H 141 H Random Glucose Calcium Phosphorus Magnesium Total Bilirubin AST ALT Alkaline Phosphatase Total Protein Albumin Globulin Albumin/Globulin Ratio 12/05/16 12/05/16 12/05/16 06:04 06:04 07:23 WBC RBC Hgb Hct MCV MCH MCHC RDW Plt Count MPV Neut % (Auto) Lymph % (Auto) Wake % (Auto) Eos % (Auto) Baso % (Auto) Neut # Lymph # Wake # Eos # Baso # Neutrophils % (Manual) Band Neutrophils % Lymphocytes % (Manual) Monocytes % (Manual) Eosinophils % (Manual) Basophils % (Manual) Platelet Estimate Hypochromasia (manual) Poikilocytosis (manual Anisocytosis (manual) Ovalocytes Sodium 136 Potassium 4.4 Chloride 102 Carbon Dioxide 25 Anion Gap 13 BUN 23 H Creatinine 1.2 Est GFR ( Amer) > 60 Est GFR (Non-Af Amer) > 60 POC Glucose (mg/dL) 185 H Random Glucose 154 H Calcium 8.7 Phosphorus 2.8 Magnesium 1.6 Total Bilirubin 0.5 AST 32 ALT 41 Alkaline Phosphatase 77 Total Protein 6.7 Albumin 3.0 L Globulin 3.7 Albumin/Globulin Ratio 0.8 L 12/05/16 12/05/16 12/05/16 12:03 12:30 13:38 WBC RBC Hgb Hct MCV MCH MCHC RDW Plt Count MPV Neut % (Auto) Lymph % (Auto) Wake % (Auto) Eos % (Auto) Baso % (Auto) Neut # Lymph # Wake # Eos # Baso # Neutrophils % (Manual) Band Neutrophils % Lymphocytes % (Manual) Monocytes % (Manual) Eosinophils % (Manual) Basophils % (Manual) Platelet Estimate Hypochromasia (manual) Poikilocytosis (manual Anisocytosis (manual) Ovalocytes Sodium Potassium Chloride Carbon Dioxide Anion Gap BUN Creatinine Est GFR ( Amer) Est GFR (Non-Af Amer) POC Glucose (mg/dL) 57 L 66 105 Random Glucose Calcium Phosphorus Magnesium Total Bilirubin AST ALT Alkaline Phosphatase Total Protein Albumin Globulin Albumin/Globulin Ratio Fingerstick Blood Sugar Results: 141 Review of Systems - Constitutional Constitutional: absent: Fever, Chills, Sweats, Weakness - EENT Eyes: absent: Blurred Vision, Change in Vision - Cardiovascular Cardiovascular: absent: Chest Pain, Diaphoresis, Dyspnea, Lightheadedness, Palpitations - Respiratory Respiratory: absent: Dyspnea, Wheezing, Pain on Inspiration - Gastrointestinal Gastrointestinal: Abdominal Pain. absent: Nausea, Vomiting - Neurological Neurological: absent: Dizziness, Headaches, Tingling, Weakness - Endocrine Endocrine: absent: Fatigue, Palpitations Critical Care Progress Note - Ventilator Checklist Head of Bed 30 Degrees: No Daily Sedation Vacation: No Daily Assessment of Readiness to Wean: No Daily Spontaneous Breathing Trial: No PUD Prophalyxis: Yes DVT Prophylaxis: Yes - Nutrition Nutrition: Nutrition Category Date Time Status Liquid Diet [DIET] Diets 12/04/16 Lunch Active Assessment/Plan - Assessment and Plan (Free Text) Assessment: Patient is a 70 year old male with past medical history of peripheral artery disease, carotid stenosis s/p carotid endarterectomy, ruptured right femoral pseudoaneurysm, dilated common bile duct, DM, HTN, bacteremia, depression. Patient had an emergent repair of ruptured right femoral artery pseudo- aneurysm with proximal ligatation and removal of femoral artery stent and patch (11/27/16). Currently, patient is s/p Right common iliac-popliteal bypass with 8mm PTFE and right femoral embolectomy POD#3 Today Plan: Transfer to telemetry Plan: Neuro: Alert, awake and oriented Vascular: Hx of PVD, S/P emergent repair of ruptured right femoral artery pseudo -aneurysm with proximal ligatation and removal of femoral artery stent and patch (11/27/16) and currently, patient is s/p Right common iliac-popliteal bypass with 8mm PTFE and right femoral embolectomy POD#3 Medication/Management * Asprin 325mg PO daily * Crestor 10mg PO HS * Plavix 75mg PO daily * Percocet 2 tab PO Q4H prn and O tab PO q4h prn for pain control Pulm: No acute issues Cardio: Hx of HTN Medication/Management: * Norvasc 10mg PO daily * Lopressor 50mg PO BID * Lisinopril 10mg PO daily GI: Acute Coffee-Ground emesis, History of constipation and pancreatitis GI consult, Dr. Layton---> Help appreciated Medications: * Aspirin 81mg PO and plavix 75mg PO daily (Held due to coffee- ground emesis) * Colace 100 mg PO TID * Lipase/Protease/Amylase 33,600units PO TID Endo: Hx of DM * Accuchecks * Levemir 18 units SC HS * Human regular 6 unit SC ACL * Human regular 6 unit SC ACD * Human regular 10 unit SC ACB * ISS- low dose protocol * Hypoglycemia protocol : Hx of BPH Medications/Management: * Flomax 0.4mg PO daily * Proscar 5mg PO daily Heme: History of anemia * Transfused 1 units PRBC (12/04/16) * Transfused 3 units PRBC post-operatively (12/02/16) Medication/Management: * Ferrous Sulfate 325mg PO BID ID: Leukocytosis, Bandemia, Hx of bactremia ID Consult, Dr. Herrera on board----> Help appreciated * Wound culture ( E.coli) - 11/27/16 Medications: * Vancomycin 1,000mg IVPN Q12H (Held due to elevated vanc trough) * Cefepime 1gm IVPB q12h Psych: Hx of depression Medication: Duloxetine 40mg PO HS Mirtazapine 30mg PO HS Prophylaxis: DVT: Heparin 5,000 units SC Q12H GI: Pepcid 20mg IVP Q12H, Zofran 4mg IVP Q6H prn Florastor 250mg PO BID <Sincere Zhou M - Last Filed: 12/10/16 00:23> CCU Objective - Vital Signs / Intake & Output Vital Signs (Last 4 hours): Vital Signs Temp Pulse Resp BP Pulse Ox 12/09/16 23:21 97.9 F 73 20 118/60 98 - Medications Active Medications: Active Medications Generic Name Dose Route Start Last Admin Trade Name Freq PRN Reason Stop Dose Admin Amlodipine Besylate 10 mg 11/27/16 10:00 12/09/16 09:58 Norvasc PO Not Given DAILY LADONNA Aspirin 325 mg 12/03/16 10:45 12/09/16 09:57 Aspirin PO 325 mg DAILY LADONNA Administration Clopidogrel Bisulfate 75 mg 10/11/17 10:45 12/09/16 09:56 Plavix PO 75 mg DAILY LADONNA Administration Dextrose 0 ml 11/29/16 07:12 11/29/16 07:17 Dextrose 50% Inj IVP 50 ml .STAT PRN Administration Hypoglycemia Protocol Protocol Dextrose 0 gm 11/29/16 07:12 Glutose 15 PO .ONCE PRN Hypoglycemia Protocol Protocol Docusate Sodium 100 mg 11/27/16 14:00 12/09/16 17:35 Colace PO 100 mg TID LADONNA Administration Duloxetine HCl 40 mg 11/27/16 22:00 12/09/16 22:18 Cymbalta PO 40 mg HS LADONNA Administration Famotidine 20 mg 12/04/16 10:00 12/09/16 17:35 Pepcid PO 20 mg BID LADONNA Administration Ferrous Sulfate 325 mg 11/27/16 10:00 12/09/16 17:35 Feosol PO 325 mg BID LADONNA Administration Finasteride 5 mg 11/27/16 10:00 12/09/16 09:57 Proscar PO 5 mg DAILY LADONNA Administration Fluticasone Propionate 2 spr 11/27/16 10:00 12/09/16 11:59 Flonase EMMA 2 spr DAILY LADONNA Administration Glucagon 0 mg 11/29/16 07:12 Glucagen Diagnostic Kit IM .STAT PRN Hypoglycemia Protocol Protocol Heparin Sodium (Porcine) 5,000 units 12/07/16 10:45 12/09/16 22:19 Heparin SC 5,000 units Q12 LADONNA Administration Vancomycin HCl 1 gm/ Sodium 250 mls @ 166.7 mls/hr 12/08/16 12:00 12/09/16 11 :24 Chloride IVPB 166.7 mls/hr Q24H LADONNA Administration Insulin Detemir 18 unit 12/07/16 23:30 12/09/16 22:21 Levemir SC 18 unit HS LADONNA Administration Insulin Human Regular 6 unit 11/28/16 11:30 12/09/16 11:58 Novolin R SC 6 unit ACL LADONNA Administration Insulin Human Regular 6 unit 11/28/16 16:30 12/05/16 17:01 Novolin R SC Not Given ACD LADONNA Insulin Human Regular 10 unit 11/29/16 07:30 12/09/16 08:27 Novolin R SC 10 unit ACB LADONNA Administration Insulin Human Regular 5 unit 12/02/16 13:45 Novolin R IV ONCE LADONNA Insulin Human Regular 0 unit 12/02/16 16:30 12/09/16 22:22 Novolin R SC 3 unit ACHS LADONNA Administration Protocol Ketorolac Tromethamine 15 mg 12/08/16 12:01 12/09/16 10:07 Toradol IVP 15 mg Q6 PRN Administration Pain, moderate (4-7) Lisinopril 10 mg 11/30/16 10:00 12/09/16 09:58 Zestril PO Not Given DAILY LADONNA Metoprolol Tartrate 25 mg 12/09/16 18:00 12/09/16 17:38 Lopressor PO 25 mg BID LADONNA Administration Mirtazapine 30 mg 12/03/16 22:00 12/09/16 22:18 Remeron PO 30 mg HS LADONNA Administration Ondansetron HCl 4 mg 11/26/16 23:56 12/05/16 09:30 Zofran Inj IVP 4 mg Q6H PRN Administration Nausea/Vomiting Oxycodone/Acetaminophen 1 tab 12/07/16 22:42 12/09/16 17:35 Percocet 5/325 Mg Tab PO 12/10/16 22:43 1 tab Q4H PRN Administration Pain, moderate (4-7) Rosuvastatin Calcium 10 mg 11/27/16 18:00 12/09/16 17:35 Crestor PO 10 mg QPM LADONNA Administration Saccharomyces Boulardii 250 mg 11/30/16 21:00 12/09/16 17:35 Florastor PO 250 mg BID LADONNA Administration Tamsulosin HCl 0.4 mg 11/27/16 10:00 12/09/16 09:57 Flomax PO 0.4 mg DAILY LADONNA Administration - Patient Studies Lab Studies: Lab Studies 12/09/16 12/09/16 12/09/16 Range/Units 21:59 16:56 11:20 WBC (4.8-10.8) K/uL RBC (4.40-5.90) Mil/uL Hgb (12.0-18.0) g/dL Hct (35.0-51.0) % MCV (80.0-94.0) fL MCH (27.0-31.0) pg MCHC (33.0-37.0) g/dL RDW (11.5-14.5) % Plt Count (130-400) K/uL MPV (7.2-11.7) fL Neut % (Auto) (50.0-75.0) % Lymph % (Auto) (20.0-40.0) % Wake % (Auto) (0.0-10.0) % Eos % (Auto) (0.0-4.0) % Baso % (Auto) (0.0-2.0) % Neut # (1.8-7.0) K/uL Lymph # (1.0-4.3) K/uL Wake # (0.0-0.8) K/uL Eos # (0.0-0.7) K/uL Baso # (0.0-0.2) K/uL Sodium (132-148) mmol/L Potassium (3.6-5.2) mmol/L Chloride (98-107) mmol/L Carbon Dioxide (22-30) mmol/L Anion Gap (10-20) BUN (9-20) mg/dL Creatinine (0.8-1.5) mg/dL Est GFR ( Amer) Est GFR (Non-Af Amer) POC Glucose (mg/dL) 353 H 109 227 H (65-110) mg/dL Random Glucose (75-110) mg/dL Calcium (8.6-10.4) mg/dl Phosphorus (2.5-4.5) mg/dL Magnesium (1.6-2.3) mg/dL Total Bilirubin (0.2-1.3) mg/dL AST (17-59) U/L ALT (21-72) U/L Alkaline Phosphatase (38-126) U/L Total Protein (6.3-8.3) g/dL Albumin (3.5-5.0) g/dL Globulin (2.2-3.9) gm/dL Albumin/Globulin Ratio (1.0-2.1) 12/09/16 12/09/16 12/09/16 Range/Units 08:14 08:14 06:29 WBC 7.6 (4.8-10.8) K/uL RBC 3.14 L (4.40-5.90) Mil/uL Hgb 9.4 L (12.0-18.0) g/dL Hct 27.6 L (35.0-51.0) % MCV 87.9 (80.0-94.0) fL MCH 29.8 (27.0-31.0) pg MCHC 33.9 (33.0-37.0) g/dL RDW 15.8 H (11.5-14.5) % Plt Count 224 (130-400) K/uL MPV 7.9 (7.2-11.7) fL Neut % (Auto) 75.0 (50.0-75.0) % Lymph % (Auto) 11.4 L (20.0-40.0) % Wake % (Auto) 8.0 (0.0-10.0) % Eos % (Auto) 4.8 H (0.0-4.0) % Baso % (Auto) 0.8 (0.0-2.0) % Neut # 5.7 (1.8-7.0) K/uL Lymph # 0.9 L (1.0-4.3) K/uL Wake # 0.6 (0.0-0.8) K/uL Eos # 0.4 (0.0-0.7) K/uL Baso # 0.1 (0.0-0.2) K/uL Sodium 131 L (132-148) mmol/L Potassium 4.9 (3.6-5.2) mmol/L Chloride 96 L (98-107) mmol/L Carbon Dioxide 27 (22-30) mmol/L Anion Gap 13 (10-20) BUN 40 H (9-20) mg/dL Creatinine 1.4 (0.8-1.5) mg/dL Est GFR ( Amer) > 60 Est GFR (Non-Af Amer) 50 POC Glucose (mg/dL) 203 H (65-110) mg/dL Random Glucose 161 H (75-110) mg/dL Calcium 8.6 (8.6-10.4) mg/dl Phosphorus 3.7 (2.5-4.5) mg/dL Magnesium 1.9 (1.6-2.3) mg/dL Total Bilirubin 0.5 (0.2-1.3) mg/dL AST 27 (17-59) U/L ALT 43 (21-72) U/L Alkaline Phosphatase 97 (38-126) U/L Total Protein 6.9 (6.3-8.3) g/dL Albumin 3.4 L (3.5-5.0) g/dL Globulin 3.5 (2.2-3.9) gm/dL Albumin/Globulin Ratio 1.0 (1.0-2.1) 12/09/16 Range/Units 02:18 WBC (4.8-10.8) K/uL RBC (4.40-5.90) Mil/uL Hgb (12.0-18.0) g/dL Hct (35.0-51.0) % MCV (80.0-94.0) fL MCH (27.0-31.0) pg MCHC (33.0-37.0) g/dL RDW (11.5-14.5) % Plt Count (130-400) K/uL MPV (7.2-11.7) fL Neut % (Auto) (50.0-75.0) % Lymph % (Auto) (20.0-40.0) % Wake % (Auto) (0.0-10.0) % Eos % (Auto) (0.0-4.0) % Baso % (Auto) (0.0-2.0) % Neut # (1.8-7.0) K/uL Lymph # (1.0-4.3) K/uL Wake # (0.0-0.8) K/uL Eos # (0.0-0.7) K/uL Baso # (0.0-0.2) K/uL Sodium (132-148) mmol/L Potassium (3.6-5.2) mmol/L Chloride (98-107) mmol/L Carbon Dioxide (22-30) mmol/L Anion Gap (10-20) BUN (9-20) mg/dL Creatinine (0.8-1.5) mg/dL Est GFR ( Amer) Est GFR (Non-Af Amer) POC Glucose (mg/dL) 416 H* (65-110) mg/dL Random Glucose (75-110) mg/dL Calcium (8.6-10.4) mg/dl Phosphorus (2.5-4.5) mg/dL Magnesium (1.6-2.3) mg/dL Total Bilirubin (0.2-1.3) mg/dL AST (17-59) U/L ALT (21-72) U/L Alkaline Phosphatase (38-126) U/L Total Protein (6.3-8.3) g/dL Albumin (3.5-5.0) g/dL Globulin (2.2-3.9) gm/dL Albumin/Globulin Ratio (1.0-2.1) Laboratory Results - last 24 hr 12/09/16 12/09/16 12/09/16 02:18 06:29 08:14 WBC 7.6 RBC 3.14 L Hgb 9.4 L Hct 27.6 L MCV 87.9 MCH 29.8 MCHC 33.9 RDW 15.8 H Plt Count 224 MPV 7.9 Neut % (Auto) 75.0 Lymph % (Auto) 11.4 L Wake % (Auto) 8.0 Eos % (Auto) 4.8 H Baso % (Auto) 0.8 Neut # 5.7 Lymph # 0.9 L Wake # 0.6 Eos # 0.4 Baso # 0.1 Sodium Potassium Chloride Carbon Dioxide Anion Gap BUN Creatinine Est GFR ( Amer) Est GFR (Non-Af Amer) POC Glucose (mg/dL) 416 H* 203 H Random Glucose Calcium Phosphorus Magnesium Total Bilirubin AST ALT Alkaline Phosphatase Total Protein Albumin Globulin Albumin/Globulin Ratio 12/09/16 12/09/16 12/09/16 08:14 11:20 16:56 WBC RBC Hgb Hct MCV MCH MCHC RDW Plt Count MPV Neut % (Auto) Lymph % (Auto) Wake % (Auto) Eos % (Auto) Baso % (Auto) Neut # Lymph # Wake # Eos # Baso # Sodium 131 L Potassium 4.9 Chloride 96 L Carbon Dioxide 27 Anion Gap 13 BUN 40 H Creatinine 1.4 Est GFR ( Amer) > 60 Est GFR (Non-Af Amer) 50 POC Glucose (mg/dL) 227 H 109 Random Glucose 161 H Calcium 8.6 Phosphorus 3.7 Magnesium 1.9 Total Bilirubin 0.5 AST 27 ALT 43 Alkaline Phosphatase 97 Total Protein 6.9 Albumin 3.4 L Globulin 3.5 Albumin/Globulin Ratio 1.0 12/09/16 21:59 WBC RBC Hgb Hct MCV MCH MCHC RDW Plt Count MPV Neut % (Auto) Lymph % (Auto) Wake % (Auto) Eos % (Auto) Baso % (Auto) Neut # Lymph # Wake # Eos # Baso # Sodium Potassium Chloride Carbon Dioxide Anion Gap BUN Creatinine Est GFR ( Amer) Est GFR (Non-Af Amer) POC Glucose (mg/dL) 353 H Random Glucose Calcium Phosphorus Magnesium Total Bilirubin AST ALT Alkaline Phosphatase Total Protein Albumin Globulin Albumin/Globulin Ratio Critical Care Progress Note - Nutrition Nutrition: Nutrition Category Date Time Status Heart Healthy Diet [DIET] Diets 12/07/16 Breakfast Active Attending/Attestation - Attestation I have personally seen and examined this patient.: Yes I have fully participated in the care of the patient.: Yes I have reviewed all pertinent clinical information: Yes Notes (Text): 12/05/16 Today: Thursday, December 05, 2016 The Patient was seen and examined at the bedside, Medical records reviewed, and management issues were discussed and formulated with the house staff. I have reviewed all the relevant clinical, laboratory, hemodynamic, radiographic data and medications Events reviewed Pain issues, skin care, head of the bed elevation, glycemic control were addressed. I concur with resident's assessment and plan of care as transcribed in Dr. Gray note.
--- NOTE | 2016-12-05 16:01 | CP.PCM.PN ---
Subjective - Date & Time of Evaluation Date of Evaluation: 12/05/16 Time of Evaluation: 07:00 - Subjective Subjective: VASCULAR SURGERY PROGRESS NOTE FOR DR. DENIS Patient seen and examined at bedside in the ICU. Montal[place] was removed yesterday. He denies any more vomiting. His pain was well controlled. Objective - Vital Signs/Intake and Output Vital Signs (last 24 hours): Temp Pulse Resp BP Pulse Ox 98.1 F 73 9 L 158/63 H 100 12/05/16 04:00 12/05/16 07:00 12/05/16 07:00 12/05/16 06:23 12/05/16 01:23 Intake and Output: 12/05/16 12/05/16 06:59 18:59 Intake Total 2310 125 Output Total 2100 650 Balance 210 -525 - Medications Medications: Current Medications Amlodipine Besylate (Norvasc) 10 mg PO DAILY [facility] Last Admin: 12/05/16 09:29 Dose: 10 mg Aspirin (Aspirin) 325 mg PO DAILY [facility] Last Admin: 12/05/16 09:27 Dose: 325 mg Clopidogrel Bisulfate (Plavix) 75 mg PO DAILY [facility] Last Admin: 12/05/16 09:29 Dose: 75 mg Dextrose (Dextrose 50% Inj) 0 ml IVP .STAT PRN; Protocol PRN Reason: Hypoglycemia Protocol Last Admin: 11/29/16 07:17 Dose: 50 ml Dextrose (Glutose 15) 0 gm PO .ONCE PRN; Protocol PRN Reason: Hypoglycemia Protocol Docusate Sodium (Colace) 100 mg PO TID [facility] Last Admin: 12/05/16 09:29 Dose: 100 mg Duloxetine HCl (Cymbalta) 40 mg PO HS [facility] Last Admin: 12/04/16 21:43 Dose: 40 mg Famotidine (Pepcid) 20 mg PO BID [facility] Last Admin: 12/05/16 09:28 Dose: 20 mg Ferrous Sulfate (Feosol) 325 mg PO BID [facility] Last Admin: 12/05/16 09:38 Dose: 325 mg Finasteride (Proscar) 5 mg PO DAILY [facility] Last Admin: 12/05/16 09:30 Dose: 5 mg Fluticasone Propionate (Flonase) 2 spr EMMA DAILY [facility] Last Admin: 12/04/16 12:38 Dose: Not Given Glucagon (Glucagen Diagnostic Kit) 0 mg IM .STAT PRN; Protocol PRN Reason: Hypoglycemia Protocol Heparin Sodium (Porcine) (Heparin) 5,000 units SC Q12 [facility] Last Admin: 12/05/16 09:28 Dose: 5,000 units Cefepime HCl (Maxipime Iv 1 Gm Premix) 1 gm in 50 mls @ 100 mls/hr IVPB Q12H [facility] Last Admin: 12/05/16 08:55 Dose: 100 mls/hr Insulin Detemir (Levemir) 18 unit SC HS [facility] Last Admin: 12/04/16 22:05 Dose: 18 unit Insulin Human Regular (Novolin R) 6 unit SC ACL [facility] Last Admin: 12/04/16 12:00 Dose: 6 unit Insulin Human Regular (Novolin R) 6 unit SC ACD [facility] Last Admin: 12/04/16 17:00 Dose: 6 unit Insulin Human Regular (Novolin R) 10 unit SC ACB [facility] Last Admin: 12/05/16 08:05 Dose: 10 unit Insulin Human Regular (Novolin R) 5 unit IV ONCE [facility] Insulin Human Regular (Novolin R) 0 unit SC ACHS [facility] PRN Reason: Protocol Last Admin: 12/05/16 07:30 Dose: Not Given Lisinopril (Zestril) 10 mg PO DAILY [facility] Last Admin: 12/05/16 09:27 Dose: 10 mg Metoprolol Tartrate (Lopressor) 50 mg PO BID [facility] Last Admin: 12/05/16 09:45 Dose: 50 mg Mirtazapine (Remeron) 30 mg PO [facility] Last Admin: 12/04/16 21:43 Dose: 30 mg Ondansetron HCl (Zofran Inj) 4 mg IVP Q6H PRN PRN Reason: Nausea/Vomiting Last Admin: 12/05/16 09:30 Dose: 4 mg Oxycodone/Acetaminophen (Percocet 5/325 Mg Tab) 2 tab PO Q4H PRN PRN Reason: Pain, moderate (4-7) Stop: 12/07/16 17:48 Oxycodone/Acetaminophen (Percocet 5/325 Mg Tab) 1 tab PO Q4H PRN PRN Reason: Pain, Mild (1-3) Stop: 12/07/16 17:48 Last Admin: 12/05/16 07:42 Dose: 1 tab Rosuvastatin Calcium (Crestor) 10 mg PO QPM [facility] Last Admin: 12/04/16 17:58 Dose: 10 mg Saccharomyces Boulardii (Florastor) 250 mg PO BID [facility] Last Admin: 12/05/16 09:41 Dose: 250 mg Tamsulosin HCl (Flomax) 0.4 mg PO DAILY [facility] Last Admin: 12/05/16 09:27 Dose: 0.4 mg - Labs Labs: 12/05/16 06:04 12/05/16 06:04 PT 13.1 SECONDS (9.7-12.2) H 12/03/16 14:47 INR 1.1 12/03/16 14:47 APTT 41 SECONDS (21-34) H 12/01/16 07:51 - Constitutional Appears: Non-toxic, No Acute Distress - Head Exam Head Exam: ATRAUMATIC, NORMAL INSPECTION - Eye Exam Eye Exam: EOMI, Normal appearance - Respiratory Exam Respiratory Exam: NORMAL BREATHING PATTERN. absent: Respiratory Distress - Cardiovascular Exam Cardiovascular Exam: +S1, +S2 - GI/Abdominal Exam GI & Abdominal Exam: Soft. absent: Distended, Firm, Guarding, Tenderness - Extremities Exam Additional comments: Right foot with strong palpable PT pulse Dressing clean/dry/intact - Neurological Exam Neurological Exam: Alert, Awake - Psychiatric Exam Psychiatric exam: Normal Affect, Normal Mood - Skin Skin Exam: Normal Color, Warm Assessment and Plan - Assessment and Plan (Free Text) Assessment: 70yo M with ruptured infected right femoral artery pseudo-aneurysm s/p emergent repair of ruptured right femoral artery pseudo-aneurysm with proximal ligatation and removal of femoral artery stent and patch POD#8, and now s/p Right common iliac-popliteal bypass with 8mm PTFE and right femoral embolectomy POD#3 - Afebrile, VSS - Hemoglobin 9.6 this morning after 1 PRBC yesterday - Continue IV Abx - GI: will do elective EGD/colonoscopy as outpatient - Heparin BID, Aspirin and Plavix - Physical therapy - ADAT - No more knee brace needed - Discussed plan with Dr. Maura Mckeon PGY-3
[2016-12-05 16:34] LABS: BASO % 0.5 % (0.0-2.0); EOS # 0.2 K/uL (0.0-0.7); EOS % 2.1 % (0.0-4.0); LYMPH # 0.5 K/uL (1.0-4.3); LYMPH % 5.6 % (20.0-40.0); MEAN CELL VOLUME 88.5 fL (80.0-94.0); MEAN CORPUSCULAR HEMOGLOBIN 29.6 pg (27.0-31.0); MEAN CORPUSCULAR HGB CONC 33.4 g/dL (33.0-37.0); MEAN PLATELET VOLUME 7.8 fL (7.2-11.7); MONO # 0.6 K/uL (0.0-0.8); MONO % 6.5 % (0.0-10.0); PLATELET COUNT 177 K/uL (130-400); RED CELL DISTRIBUTION WIDTH 15.6 % (11.5-14.5); WHITE BLOOD COUNT 9.2 K/uL (4.8-10.8)
[2016-12-05 17:46] LABS: EOSINOPHIL 2 % (0-4); NEUTROPHIL 94 % (50-75); TOTAL CELLS COUNTED 100
--- NOTE | 2016-12-05 18:23 | CP.PCM.PN ---
Subjective - Date & Time of Evaluation Date of Evaluation: 12/05/16 Time of Evaluation: 08:00 - Subjective Subjective: iv rx renewed vanco levels ok Objective - Vital Signs/Intake and Output Vital Signs (last 24 hours): Temp Pulse Resp BP Pulse Ox 98.1 F 80 18 125/56 L 100 12/05/16 12:00 12/05/16 16:00 12/05/16 16:00 12/05/16 15:22 12/05/16 01:23 Intake and Output: 12/05/16 12/05/16 06:59 18:59 Intake Total 2310 125 Output Total 2100 650 Balance 210 -525 - Medications Medications: Current Medications Amlodipine Besylate (Norvasc) 10 mg PO DAILY [facility] Last Admin: 12/05/16 09:29 Dose: 10 mg Aspirin (Aspirin) 325 mg PO DAILY [facility] Last Admin: 12/05/16 09:27 Dose: 325 mg Clopidogrel Bisulfate (Plavix) 75 mg PO DAILY [facility] Last Admin: 12/05/16 09:29 Dose: 75 mg Dextrose (Dextrose 50% Inj) 0 ml IVP .STAT PRN; Protocol PRN Reason: Hypoglycemia Protocol Last Admin: 11/29/16 07:17 Dose: 50 ml Dextrose (Glutose 15) 0 gm PO .ONCE PRN; Protocol PRN Reason: Hypoglycemia Protocol Docusate Sodium (Colace) 100 mg PO TID [facility] Last Admin: 12/05/16 17:00 Dose: Not Given Duloxetine HCl (Cymbalta) 40 mg PO HS [facility] Last Admin: 12/04/16 21:43 Dose: 40 mg Famotidine (Pepcid) 20 mg PO BID [facility] Last Admin: 12/05/16 09:28 Dose: 20 mg Ferrous Sulfate (Feosol) 325 mg PO BID [facility] Last Admin: 12/05/16 09:38 Dose: 325 mg Finasteride (Proscar) 5 mg PO DAILY [facility] Last Admin: 12/05/16 09:30 Dose: 5 mg Fluticasone Propionate (Flonase) 2 spr EMMA DAILY [facility] Last Admin: 12/04/16 12:38 Dose: Not Given Glucagon (Glucagen Diagnostic Kit) 0 mg IM .STAT PRN; Protocol PRN Reason: Hypoglycemia Protocol Heparin Sodium (Porcine) (Heparin) 5,000 units SC Q12 [facility] Last Admin: 12/05/16 09:28 Dose: 5,000 units Cefepime HCl (Maxipime Iv 1 Gm Premix) 1 gm in 50 mls @ 100 mls/hr IVPB Q12H [facility] Last Admin: 12/05/16 08:55 Dose: 100 mls/hr Insulin Detemir (Levemir) 18 unit SC HS [facility] Last Admin: 12/04/16 22:05 Dose: 18 unit Insulin Human Regular (Novolin R) 6 unit SC ACL [facility] Last Admin: 12/05/16 11:30 Dose: Not Given Insulin Human Regular (Novolin R) 6 unit SC ACD [facility] Last Admin: 12/05/16 17:01 Dose: Not Given Insulin Human Regular (Novolin R) 10 unit SC ACB [facility] Last Admin: 12/05/16 08:05 Dose: 10 unit Insulin Human Regular (Novolin R) 5 unit IV ONCE [facility] Insulin Human Regular (Novolin R) 0 unit SC ACHS [facility] PRN Reason: Protocol Last Admin: 12/05/16 07:30 Dose: Not Given Lisinopril (Zestril) 10 mg PO DAILY [facility] Last Admin: 12/05/16 09:27 Dose: 10 mg Metoprolol Tartrate (Lopressor) 50 mg PO BID [facility] Last Admin: 12/05/16 09:45 Dose: 50 mg Mirtazapine (Remeron) 30 mg PO [facility] Last Admin: 12/04/16 21:43 Dose: 30 mg Ondansetron HCl (Zofran Inj) 4 mg IVP Q6H PRN PRN Reason: Nausea/Vomiting Last Admin: 12/05/16 09:30 Dose: 4 mg Oxycodone/Acetaminophen (Percocet 5/325 Mg Tab) 2 tab PO Q4H PRN PRN Reason: Pain, moderate (4-7) Stop: 12/07/16 17:48 Oxycodone/Acetaminophen (Percocet 5/325 Mg Tab) 1 tab PO Q4H PRN PRN Reason: Pain, Mild (1-3) Stop: 12/07/16 17:48 Last Admin: 12/05/16 07:42 Dose: 1 tab Rosuvastatin Calcium (Crestor) 10 mg PO QPM [facility] Last Admin: 12/04/16 17:58 Dose: 10 mg Saccharomyces Boulardii (Florastor) 250 mg PO BID [facility] Last Admin: 12/05/16 09:41 Dose: 250 mg Tamsulosin HCl (Flomax) 0.4 mg PO DAILY [facility] Last Admin: 12/05/16 09:27 Dose: 0.4 mg - Labs Labs: 12/05/16 16:30 12/05/16 06:04 PT 11.5 SECONDS (9.7-12.2) 12/05/16 16:30 INR 1.0 12/05/16 16:30 APTT 31 SECONDS (21-34) 12/05/16 16:30 - Constitutional Appears: Non-toxic, Chronically Ill - Head Exam Head Exam: NORMOCEPHALIC - Eye Exam Eye Exam: PERRL - ENT Exam ENT Exam: Mucous Membranes Dry - Cardiovascular Exam Cardiovascular Exam: REGULAR RHYTHM - GI/Abdominal Exam GI & Abdominal Exam: Distended, Soft - Rectal Exam Rectal Exam: Deferred Assessment and Plan (1) Femoral artery aneurysm, right Status: Acute (2) H/O ruptured arterial aneurysm Status: Resolved (3) S/P aneurysm repair Status: Acute
[2016-12-05] MEDS: Fluticasone Nasal 50 mcg/Spray NAS SCH (19:35)
--- NOTE | 2016-12-05 20:31 | CP.PCM.PN ---
Subjective - Date & Time of Evaluation Date of Evaluation: 12/05/16 Time of Evaluation: 18:20 - Subjective Subjective: Medical (consult) Note: Attempted to see the patient, but patient wants to leave against medical advice. Struggling to put on his underwear. Discussed with surgical instrument repair specialist, Astrid, who is aware of the ongoing situation. Objective - Vital Signs/Intake and Output Vital Signs (last 24 hours): Temp Pulse Resp BP Pulse Ox 98.4 F 70 20 107/53 L 100 12/05/16 19:29 12/05/16 19:29 12/05/16 19:29 12/05/16 16:23 12/05/16 01:23 Intake and Output: 12/05/16 12/06/16 18:59 06:59 Intake Total 1725 Output Total 1650 Balance 75 - Medications Medications: Current Medications Amlodipine Besylate (Norvasc) 10 mg PO DAILY [facility] Last Admin: 12/05/16 09:29 Dose: 10 mg Aspirin (Aspirin) 325 mg PO DAILY [facility] Last Admin: 12/05/16 09:27 Dose: 325 mg Clopidogrel Bisulfate (Plavix) 75 mg PO DAILY [facility] Last Admin: 12/05/16 09:29 Dose: 75 mg Dextrose (Dextrose 50% Inj) 0 ml IVP .STAT PRN; Protocol PRN Reason: Hypoglycemia Protocol Last Admin: 11/29/16 07:17 Dose: 50 ml Dextrose (Glutose 15) 0 gm PO .ONCE PRN; Protocol PRN Reason: Hypoglycemia Protocol Docusate Sodium (Colace) 100 mg PO TID [facility] Last Admin: 12/05/16 19:36 Dose: Not Given Duloxetine HCl (Cymbalta) 40 mg PO HS [facility] Last Admin: 12/04/16 21:43 Dose: 40 mg Famotidine (Pepcid) 20 mg PO BID [facility] Last Admin: 12/05/16 19:39 Dose: Not Given Ferrous Sulfate (Feosol) 325 mg PO BID [facility] Last Admin: 12/05/16 19:40 Dose: Not Given Finasteride (Proscar) 5 mg PO DAILY [facility] Last Admin: 12/05/16 09:30 Dose: 5 mg Fluticasone Propionate (Flonase) 2 spr EMMA DAILY [facility] Last Admin: 12/05/16 19:35 Dose: Not Given Glucagon (Glucagen Diagnostic Kit) 0 mg IM .STAT PRN; Protocol PRN Reason: Hypoglycemia Protocol Heparin Sodium (Porcine) (Heparin) 5,000 units SC Q12 [facility] Last Admin: 12/05/16 09:28 Dose: 5,000 units Cefepime HCl (Maxipime Iv 1 Gm Premix) 1 gm in 50 mls @ 100 mls/hr IVPB Q12H [facility] Last Admin: 12/05/16 08:55 Dose: 100 mls/hr Insulin Detemir (Levemir) 18 unit SC HS [facility] Last Admin: 12/04/16 22:05 Dose: 18 unit Insulin Human Regular (Novolin R) 6 unit SC ACL [facility] Last Admin: 12/05/16 11:30 Dose: Not Given Insulin Human Regular (Novolin R) 6 unit SC ACD [facility] Last Admin: 12/05/16 17:01 Dose: Not Given Insulin Human Regular (Novolin R) 10 unit SC ACB [facility] Last Admin: 12/05/16 08:05 Dose: 10 unit Insulin Human Regular (Novolin R) 5 unit IV ONCE [facility] Insulin Human Regular (Novolin R) 0 unit SC ACHS [facility] PRN Reason: Protocol Last Admin: 12/05/16 18:00 Dose: Not Given Lisinopril (Zestril) 10 mg PO DAILY [facility] Last Admin: 12/05/16 09:27 Dose: 10 mg Metoprolol Tartrate (Lopressor) 50 mg PO BID [facility] Last Admin: 12/05/16 19:36 Dose: Not Given Mirtazapine (Remeron) 30 mg PO [facility] Last Admin: 12/04/16 21:43 Dose: 30 mg Ondansetron HCl (Zofran Inj) 4 mg IVP Q6H PRN PRN Reason: Nausea/Vomiting Last Admin: 12/05/16 09:30 Dose: 4 mg Oxycodone/Acetaminophen (Percocet 5/325 Mg Tab) 2 tab PO Q4H PRN PRN Reason: Pain, moderate (4-7) Stop: 12/07/16 17:48 Last Admin: 12/05/16 20:21 Dose: 2 tab Oxycodone/Acetaminophen (Percocet 5/325 Mg Tab) 1 tab PO Q4H PRN PRN Reason: Pain, Mild (1-3) Stop: 12/07/16 17:48 Last Admin: 12/05/16 07:42 Dose: 1 tab Rosuvastatin Calcium (Crestor) 10 mg PO QPM [facility] Last Admin: 12/05/16 19:36 Dose: Not Given Saccharomyces Boulardii (Florastor) 250 mg PO BID [facility] Last Admin: 12/05/16 19:36 Dose: Not Given Tamsulosin HCl (Flomax) 0.4 mg PO DAILY [facility] Last Admin: 12/05/16 09:27 Dose: 0.4 mg - Labs Labs: 12/05/16 16:30 12/05/16 06:04 PT 11.5 SECONDS (9.7-12.2) 12/05/16 16:30 INR 1.0 12/05/16 16:30 APTT 31 SECONDS (21-34) 12/05/16 16:30
[2016-12-05] MEDS: Insulin Detemir 100 units/ml Vial (Levemir) SC SCH (21:26)
[2016-12-06 06:25] LABS: BASO % 0.6 % (0.0-2.0); EOS # 0.3 K/uL (0.0-0.7); EOS % 4.5 % (0.0-4.0); HEMATOCRIT 30.4 % (35.0-51.0); LYMPH # 0.8 K/uL (1.0-4.3); LYMPH % 11.1 % (20.0-40.0); MEAN CELL VOLUME 87.4 fL (80.0-94.0); MEAN CORPUSCULAR HEMOGLOBIN 29.8 pg (27.0-31.0); MEAN CORPUSCULAR HGB CONC 34.1 g/dL (33.0-37.0); MEAN PLATELET VOLUME 7.6 fL (7.2-11.7); MONO # 0.6 K/uL (0.0-0.8); MONO % 8.4 % (0.0-10.0); NRBC % 0.1 % (0.0-2.0); RED CELL DISTRIBUTION WIDTH 15.8 % (11.5-14.5); WHITE BLOOD COUNT 6.9 K/uL (4.8-10.8)
[2016-12-06 06:30] LABS: CHLORIDE 96 mmol/L (98-107)
[2016-12-06 06:31] LABS: POTASSIUM 4.6 mmol/L (3.6-5.2); SODIUM 135 mmol/L (132-148)
[2016-12-06 06:33] LABS: ALB/GLOB RATIO 0.8 (1.0-2.1); ALKALINE PHOSPHATASE 78 U/L (38-126); ALT/SGPT 41 U/L (21-72); AST/SGOT 27 U/L (17-59); BILIRUBIN,TOTAL 0.5 mg/dL (0.2-1.3); BLOOD UREA NITROGEN 21 mg/dL (9-20); CARBON DIOXIDE 28 mmol/L (22-30); GFR AFRICAN-AMERICAN > 60; TOTAL PROTEIN 7.1 g/dL (6.3-8.3)
[2016-12-06 06:34] LABS: CALCIUM 9.1 mg/dl (8.6-10.4); GLUCOSE,RANDOM 175 mg/dL (75-110); MAGNESIUM 1.7 mg/dL (1.6-2.3); PHOSPHOROUS 4.1 mg/dL (2.5-4.5)
--- NOTE | 2016-12-06 08:20 | CP.PCM.PN ---
Subjective - Date & Time of Evaluation Date of Evaluation: 12/06/16 Time of Evaluation: 07:15 - Subjective Subjective: Vascular Surgery Dr. Head Pt S&E @bedside. Pt aggressive and combative yesterday evening. Code [facility] called. Pt threatened to leave AMA. A-line removed yesterday after which pt developed bleeding. Bleeding stopped after multiple pressure dressings. No complaints this AM. denies F/C, CP, SOB, N/V. pain controlled. Objective - Vital Signs/Intake and Output Vital Signs (last 24 hours): Temp Pulse Resp BP Pulse Ox 98.2 F 83 22 168/83 H 100 12/06/16 07:00 12/06/16 08:00 12/06/16 08:00 12/06/16 06:33 12/05/16 01:23 Intake and Output: 12/06/16 12/06/16 06:59 18:59 Intake Total 100 Balance 100 - Medications Medications: Current Medications Amlodipine Besylate (Norvasc) 10 mg PO DAILY [facility] Last Admin: 12/05/16 09:29 Dose: 10 mg Aspirin (Aspirin) 325 mg PO DAILY [facility] Last Admin: 12/05/16 09:27 Dose: 325 mg Clopidogrel Bisulfate (Plavix) 75 mg PO DAILY [facility] Last Admin: 12/05/16 09:29 Dose: 75 mg Dextrose (Dextrose 50% Inj) 0 ml IVP .STAT PRN; Protocol PRN Reason: Hypoglycemia Protocol Last Admin: 11/29/16 07:17 Dose: 50 ml Dextrose (Glutose 15) 0 gm PO .ONCE PRN; Protocol PRN Reason: Hypoglycemia Protocol Docusate Sodium (Colace) 100 mg PO TID [facility] Last Admin: 12/05/16 19:36 Dose: Not Given Duloxetine HCl (Cymbalta) 40 mg PO HS [facility] Last Admin: 12/05/16 21:27 Dose: 40 mg Famotidine (Pepcid) 20 mg PO BID [facility] Last Admin: 12/05/16 19:39 Dose: Not Given Ferrous Sulfate (Feosol) 325 mg PO BID [facility] Last Admin: 12/05/16 19:40 Dose: Not Given Finasteride (Proscar) 5 mg PO DAILY [facility] Last Admin: 12/05/16 09:30 Dose: 5 mg Fluticasone Propionate (Flonase) 2 spr EMMA DAILY [facility] Last Admin: 12/05/16 19:35 Dose: Not Given Glucagon (Glucagen Diagnostic Kit) 0 mg IM .STAT PRN; Protocol PRN Reason: Hypoglycemia Protocol Heparin Sodium (Porcine) (Heparin) 5,000 units SC Q12 [facility] Last Admin: 12/05/16 21:28 Dose: 5,000 units Cefepime HCl (Maxipime Iv 1 Gm Premix) 1 gm in 50 mls @ 100 mls/hr IVPB Q12H [facility] Last Admin: 12/05/16 20:42 Dose: 100 mls/hr Vancomycin HCl (Vancocin 750mg/D5w 150 Ml) 150 mls @ 150 mls/hr IVPB Q12H [facility] Stop: 12/10/16 22:01 Last Admin: 12/05/16 22:16 Dose: 150 mls/hr Insulin Detemir (Levemir) 18 unit SC HS [facility] Last Admin: 12/05/16 21:26 Dose: 18 unit Insulin Human Regular (Novolin R) 6 unit SC ACL [facility] Last Admin: 12/05/16 11:30 Dose: Not Given Insulin Human Regular (Novolin R) 6 unit SC ACD [facility] Last Admin: 12/05/16 17:01 Dose: Not Given Insulin Human Regular (Novolin R) 10 unit SC ACB [facility] Last Admin: 12/05/16 08:05 Dose: 10 unit Insulin Human Regular (Novolin R) 5 unit IV ONCE [facility] Insulin Human Regular (Novolin R) 0 unit SC ACHS [facility] PRN Reason: Protocol Last Admin: 12/05/16 21:26 Dose: 3 unit Lisinopril (Zestril) 10 mg PO DAILY [facility] Last Admin: 12/05/16 09:27 Dose: 10 mg Metoprolol Tartrate (Lopressor) 50 mg PO BID [facility] Last Admin: 12/05/16 19:36 Dose: Not Given Mirtazapine (Remeron) 30 mg PO HS [facility] Last Admin: 12/05/16 21:27 Dose: 30 mg Ondansetron HCl (Zofran Inj) 4 mg IVP Q6H PRN PRN Reason: Nausea/Vomiting Last Admin: 12/05/16 09:30 Dose: 4 mg Oxycodone/Acetaminophen (Percocet 5/325 Mg Tab) 2 tab PO Q4H PRN PRN Reason: Pain, moderate (4-7) Stop: 12/07/16 17:48 Last Admin: 12/05/16 20:21 Dose: 2 tab Oxycodone/Acetaminophen (Percocet 5/325 Mg Tab) 1 tab PO Q4H PRN PRN Reason: Pain, Mild (1-3) Stop: 12/07/16 17:48 Last Admin: 12/05/16 07:42 Dose: 1 tab Rosuvastatin Calcium (Crestor) 10 mg PO QPM [facility] Last Admin: 12/05/16 19:36 Dose: Not Given Saccharomyces Boulardii (Florastor) 250 mg PO BID [facility] Last Admin: 12/05/16 19:36 Dose: Not Given Tamsulosin HCl (Flomax) 0.4 mg PO DAILY [facility] Last Admin: 12/05/16 09:27 Dose: 0.4 mg - Labs Labs: 12/06/16 06:13 12/06/16 06:13 PT 11.5 SECONDS (9.7-12.2) 12/05/16 16:30 INR 1.0 12/05/16 16:30 APTT 31 SECONDS (21-34) 12/05/16 16:30 - Constitutional Appears: Non-toxic, No Acute Distress - Head Exam Head Exam: NORMAL INSPECTION - Eye Exam Eye Exam: Normal appearance - ENT Exam ENT Exam: Mucous Membranes Moist - Respiratory Exam Respiratory Exam: NORMAL BREATHING PATTERN. absent: Accessory Muscle Use, Respiratory Distress - Cardiovascular Exam Cardiovascular Exam: REGULAR RHYTHM. absent: Bradycardia, Tachycardia - GI/Abdominal Exam GI & Abdominal Exam: Soft. absent: Distended, Tenderness Additional comments: Bypass dressings C/D/I betadine dressings covering pseudoaneurysm repair - Extremities Exam Additional comments: dressing c/d/o strong palpable pulse R PT - Neurological Exam Neurological Exam: Alert, Awake, Oriented x3 - Psychiatric Exam Psychiatric exam: Normal Affect, Normal Mood - Skin Skin Exam: Dry, Normal Color, Warm Assessment and Plan - Assessment and Plan (Free Text) Assessment: 70 y/o M POD#9 s/p emergent repair of ruptured right femoral artery pseudo- aneurysm w/ proximal ligation and removal of femoral artery stent and patch, POD #4 s/p Right common iliac-popliteal bypass w/graft and right femoral embolectomy - Continue IV Abx - cont Heparin BID, Aspirin and Plavix - cont PT - f/u recs - remove knee immobilizer - pt cleared for transfer to the floor. - encourage OOB to chair/Amb/IS use Will disucss w/ Dr. Jones (covering Dr. Lorenzo) Maria A Resendiz DO PGY2
--- NOTE | 2016-12-06 08:25 | CP.PCM.PN ---
Subjective - Date & Time of Evaluation Date of Evaluation: 12/06/16 Time of Evaluation: 07:30 - Subjective Subjective: Medical Attending (consult) Note Patient seen and examined this morning. Patient denies headache, denies chest pain, reports cough, denies shortness of breathe, denies nausea, reports mild abdominal pain, reports has not had a bowel movement in a week, usually goes every 3 days. Patient slept well overnight. Discussed with clinical partner at bedside. Patient is pending bed to the floor. Will resume full dose Levemir. Objective - Vital Signs/Intake and Output Vital Signs (last 24 hours): Temp Pulse Resp BP Pulse Ox 98.2 F 83 22 168/83 H 100 12/06/16 07:00 12/06/16 08:00 12/06/16 08:00 12/06/16 06:33 12/05/16 01:23 Intake and Output: 12/06/16 12/06/16 06:59 18:59 Intake Total 100 Balance 100 - Medications Medications: Current Medications Amlodipine Besylate (Norvasc) 10 mg PO DAILY [facility] Last Admin: 12/05/16 09:29 Dose: 10 mg Aspirin (Aspirin) 325 mg PO DAILY [facility] Last Admin: 12/05/16 09:27 Dose: 325 mg Clopidogrel Bisulfate (Plavix) 75 mg PO DAILY [facility] Last Admin: 12/05/16 09:29 Dose: 75 mg Dextrose (Dextrose 50% Inj) 0 ml IVP .STAT PRN; Protocol PRN Reason: Hypoglycemia Protocol Last Admin: 11/29/16 07:17 Dose: 50 ml Dextrose (Glutose 15) 0 gm PO .ONCE PRN; Protocol PRN Reason: Hypoglycemia Protocol Docusate Sodium (Colace) 100 mg PO TID [facility] Last Admin: 12/05/16 19:36 Dose: Not Given Duloxetine HCl (Cymbalta) 40 mg PO HS [facility] Last Admin: 12/05/16 21:27 Dose: 40 mg Famotidine (Pepcid) 20 mg PO BID [facility] Last Admin: 12/05/16 19:39 Dose: Not Given Ferrous Sulfate (Feosol) 325 mg PO BID [facility] Last Admin: 12/05/16 19:40 Dose: Not Given Finasteride (Proscar) 5 mg PO DAILY [facility] Last Admin: 12/05/16 09:30 Dose: 5 mg Fluticasone Propionate (Flonase) 2 spr EMMA DAILY [facility] Last Admin: 12/05/16 19:35 Dose: Not Given Glucagon (Glucagen Diagnostic Kit) 0 mg IM .STAT PRN; Protocol PRN Reason: Hypoglycemia Protocol Heparin Sodium (Porcine) (Heparin) 5,000 units SC Q12 [facility] Last Admin: 12/05/16 21:28 Dose: 5,000 units Cefepime HCl (Maxipime Iv 1 Gm Premix) 1 gm in 50 mls @ 100 mls/hr IVPB Q12H [facility] Last Admin: 12/05/16 20:42 Dose: 100 mls/hr Vancomycin HCl (Vancocin 750mg/D5w 150 Ml) 150 mls @ 150 mls/hr IVPB Q12H [facility] Stop: 12/10/16 22:01 Last Admin: 12/05/16 22:16 Dose: 150 mls/hr Insulin Detemir (Levemir) 18 unit SC HS [facility] Last Admin: 12/05/16 21:26 Dose: 18 unit Insulin Human Regular (Novolin R) 6 unit SC ACL [facility] Last Admin: 12/05/16 11:30 Dose: Not Given Insulin Human Regular (Novolin R) 6 unit SC ACD [facility] Last Admin: 12/05/16 17:01 Dose: Not Given Insulin Human Regular (Novolin R) 10 unit SC ACB [facility] Last Admin: 12/05/16 08:05 Dose: 10 unit Insulin Human Regular (Novolin R) 5 unit IV ONCE [facility] Insulin Human Regular (Novolin R) 0 unit SC ACHS [facility] PRN Reason: Protocol Last Admin: 12/05/16 21:26 Dose: 3 unit Lisinopril (Zestril) 10 mg PO DAILY [facility] Last Admin: 12/05/16 09:27 Dose: 10 mg Metoprolol Tartrate (Lopressor) 50 mg PO BID [facility] Last Admin: 12/05/16 19:36 Dose: Not Given Mirtazapine (Remeron) 30 mg PO HS [facility] Last Admin: 12/05/16 21:27 Dose: 30 mg Ondansetron HCl (Zofran Inj) 4 mg IVP Q6H PRN PRN Reason: Nausea/Vomiting Last Admin: 12/05/16 09:30 Dose: 4 mg Oxycodone/Acetaminophen (Percocet 5/325 Mg Tab) 2 tab PO Q4H PRN PRN Reason: Pain, moderate (4-7) Stop: 12/07/16 17:48 Last Admin: 12/05/16 20:21 Dose: 2 tab Oxycodone/Acetaminophen (Percocet 5/325 Mg Tab) 1 tab PO Q4H PRN PRN Reason: Pain, Mild (1-3) Stop: 12/07/16 17:48 Last Admin: 12/05/16 07:42 Dose: 1 tab Rosuvastatin Calcium (Crestor) 10 mg PO QPM [facility] Last Admin: 12/05/16 19:36 Dose: Not Given Saccharomyces Boulardii (Florastor) 250 mg PO BID [facility] Last Admin: 12/05/16 19:36 Dose: Not Given Tamsulosin HCl (Flomax) 0.4 mg PO DAILY [facility] Last Admin: 12/05/16 09:27 Dose: 0.4 mg - Labs Labs: 12/06/16 06:13 12/06/16 06:13 PT 11.5 SECONDS (9.7-12.2) 12/05/16 16:30 INR 1.0 12/05/16 16:30 APTT 31 SECONDS (21-34) 12/05/16 16:30 - Constitutional Appears: Non-toxic, No Acute Distress - Head Exam Head Exam: NORMAL INSPECTION - Eye Exam Eye Exam: EOMI - ENT Exam ENT Exam: Mucous Membranes Dry - Respiratory Exam Respiratory Exam: Decreased Breath Sounds, NORMAL BREATHING PATTERN. absent: Rales, Rhonchi, Wheezes, Respiratory Distress - Cardiovascular Exam Cardiovascular Exam: REGULAR RHYTHM, +S1, +S2 - GI/Abdominal Exam GI & Abdominal Exam: Distended, Soft, Normal Bowel Sounds. absent: Guarding, Rigid, Tenderness, Rebound Additional comments: dressing over right lower quadrant betadine dressing over right lower quadrant Dressing over right lateral thigh - Extremities Exam Extremities Exam: absent: Tenderness Additional comments: No scds right lower extremity Left lower extremity: clean/dry/intact - Back Exam Back Exam: absent: CVA tenderness (L), CVA tenderness (R), paraspinal tenderness - Neurological Exam Neurological Exam: Alert - Psychiatric Exam Psychiatric exam: Normal Affect, Normal Mood - Skin Skin Exam: Dry, Normal Color, Warm Assessment and Plan - Assessment and Plan (Free Text) Assessment: Leukocytosis normalized H/H stable No further episodes of questionable coffee-ground emesis; appreciate GI input Management per surgery Medicine to continue to follow; will resume watermaster insulin when patient tolerates diet. Follow-up bowel movement--Has not had in a week per patient, usually goes every 3 days Assessment/Plan (1) S/P aneurysm repair Assessment and Plan: -POD # 9 S/P emergent repair of ruptured right femoral artery pseudo-aneurysm with proximal ligatation and removal of femoral artery stent and patch; ruptured pseudo-aneurysm (possibly infected) on 11/27/[address] Lorenzo. - POD #4 s/p Right common iliac-popliteal bypass with 8mm PTFE and right femoral embolectomy Vascular Surgeon, Dr Lorenzo is the Primary on the case Infectious Disease, Dr Herrera, consulted- help appreciated * Contact isolation * Right Groin Wound Culture 11/27/16-->E . Coli and MRSA * Wound culture: 11/27/16-->E. Coli * Blood Culture 11/27/16 shows no growth 5 days X2 * Pain control with Hydromorphone * Vancomycin 750 gm IV Q12h (12/01/16)--->elevated vancomycin trough; held vanco light of trough 12/02; random vancomycin level * Vancomycin resumed per ID; vancomycin trough improved * Cefepime 1 gm IV Q12H (11/27/16-ON) Status: Acute (2) Elevated alkaline phosphatase level Assessment and Plan: * Resolved * Per chart review, patient with Hx Dilated CBD * On prior admission patient was advised to follow up with outpatient elective cholecystectomy (3) STEVEN (acute kidney injury) Assessment and Plan: * Resolved * Will continue to monitor * vanco held in light of elevated trough on 12/02 * ID resumed vancomycin Status: Acute (4) Hyponatremia * This has resolved * Monitor (5) Acidosis likely Metabolic * Could be secondary to recent surgery vs possible infected right femoral artery catheter which was removed vs compounded by the use of Glipizide for DM 2 * Patient is resumed Vancomycin and Cefepime * Glipizide has been discontinued * This has resolved (6) Abdominal Bruit * Abdominal Aorta U/S ordered on 11/27/16 was discontinued as patient had Abdominal Angiography performed on 10/21/16 and this did NOT show Abdominal Aneurysm. Please see full report for finding of Right Femoral Artery Pseudoaneurysm. (7) History of Diabetes Mellitus 2 Assessment and Plan: * RISS - medium dose * Holding Glipizide because of the acidosis upon admission * Continue home Insulin Regimen: * Levemir 36 Units SC HS--->to give 1/2 dose tonight prior to OR (18 units subHS) and resume full dose post OR, Regular Insulin (Lispro not carried by our pharmacy) 10 Units SC ACB and 6 Units SC ACLD * Continue Accuchecks ACHS * Rosuvastatin 10mg PO HS * Lisinopril 10mg PO daily Status: Chronic (8) History Hypertension Assessment and Plan: * Resumed Lisinopril 10mg PO daily on 11/30/16 * Resumed Amlodipine 10mg PO 1x/day * Resumed Metoprolol tartrate 50 mg PO 2x/day with holding parameters 11/28/16 * Continue to monitor q6h Status: Chronic (9) History of anemia Assessment and Plan: * HgB/Hct are stable * Ferrous Sulfate 325mg PO 2x/day Status: Chronic (10) History Chronic pancreatitis Assessment and Plan: * Creon 80006s PO TID AC Meals not carried by our pharmacy therefore equilavent dose of Pacreaze Status: Chronic (11) History of depression Assessment and Plan: * Duloxetine 40mg PO HS * Mirtazapine 30mg PO HS Status: Chronic (12) History of BPH Assessment and Plan: * Finasteride 5mg PO 1x/day * Flomax 0.4 mg PO 1x/day Status: Chronic (13) History of Constipation * Colace 100 mg PO TID * Monitor bowel movement (14) Prophylactic measure Assessment and Plan: * GI: pepcid 20mg PO q12h * DVT: Patient is heparin dvt per vascular surgery; Aspirin 325mg PO daily, Plavix 75mg PO daily * Diet: Heart healthy, diabetic diet
[2016-12-06] MEDS ORDERED: Insulin Detemir 100 units/ml Vial (Levemir) SC SCH (08:30)
[2016-12-06] MEDS: (Novolin R) Insulin Human Regular 100 units/ml vial SC SCH ×7 (08:31→21:33)
[2016-12-06] MEDS: Cefepime IV 1 gm in Dextrose 1 GM/50 ML BAG IVPB SCH ×2 (08:34→19:53)
[2016-12-06] MEDS: Saccharomyces Boulardi 250 mg Cap PO SCH ×2 (09:49→17:21)
[2016-12-06] MEDS: Fluticasone Nasal 50 mcg/Spray NAS SCH (09:50)
[2016-12-06] MEDS: Oxycodone/Acetaminophen 5/325 mg Tab PO PRN (10:05)
[2016-12-06] MEDS: LIPASE/PROTEASE/AMYLASE 4,200 U ECC PO SCH ×3 (10:06→17:22)
[2016-12-06] MEDS: Vancomycin 750mg/D5W 150 ml 150 ML IVPB SCH (12:00)
[2016-12-06] MEDS ORDERED: Sodium Chloride 0.9% 500 ML IV ONE (13:21)
[2016-12-06] MEDS: Dextrose 50% SYRINGE Inj (50 ml) IV STA (16:09)
[2016-12-06] MEDS ORDERED: Dextrose 5%/0.45% NS 1,000 ML IV SCH (16:15)
--- NOTE | 2016-12-07 07:13 | CP.PCM.PN ---
Subjective - Date & Time of Evaluation Date of Evaluation: 12/07/16 Time of Evaluation: 09:10 - Subjective Subjective: PGY-[address] Wong Patient seen and examined at bedside. Patient states that he feels fine but appetite seems to wax and wane. Patient denies fever, chills, chest pain, dyspnea, abdominal pain, dysuria. Objective - Vital Signs/Intake and Output Vital Signs (last 24 hours): Temp Pulse Resp BP Pulse Ox 97.7 F 69 20 146/77 99 12/06/16 23:13 12/06/16 23:45 12/06/16 23:13 12/06/16 23:13 12/06/16 23:13 Intake and Output: 12/07/16 12/07/16 06:59 18:59 Intake Total 350 Balance 350 - Medications Medications: Current Medications Amlodipine Besylate (Norvasc) 10 mg PO DAILY [facility] Last Admin: 12/06/16 09:50 Dose: 10 mg Aspirin (Aspirin) 325 mg PO DAILY [facility] Last Admin: 12/06/16 09:49 Dose: 325 mg Clopidogrel Bisulfate (Plavix) 75 mg PO DAILY [facility] Last Admin: 12/06/16 09:49 Dose: 75 mg Dextrose (Dextrose 50% Inj) 0 ml IVP .STAT PRN; Protocol PRN Reason: Hypoglycemia Protocol Last Admin: 11/29/16 07:17 Dose: 50 ml Dextrose (Glutose 15) 0 gm PO .ONCE PRN; Protocol PRN Reason: Hypoglycemia Protocol Docusate Sodium (Colace) 100 mg PO TID [facility] Last Admin: 12/06/16 17:21 Dose: 100 mg Duloxetine HCl (Cymbalta) 40 mg PO HS [facility] Last Admin: 12/06/16 21:25 Dose: 40 mg Famotidine (Pepcid) 20 mg PO BID [facility] Last Admin: 12/06/16 17:21 Dose: 20 mg Ferrous Sulfate (Feosol) 325 mg PO BID [facility] Last Admin: 12/06/16 17:21 Dose: 325 mg Finasteride (Proscar) 5 mg PO DAILY [facility] Last Admin: 12/06/16 09:50 Dose: 5 mg Fluticasone Propionate (Flonase) 2 spr EMMA DAILY [facility] Last Admin: 12/06/16 09:50 Dose: 2 spr Glucagon (Glucagen Diagnostic Kit) 0 mg IM .STAT PRN; Protocol PRN Reason: Hypoglycemia Protocol Cefepime HCl (Maxipime Iv 1 Gm Premix) 1 gm in 50 mls @ 100 mls/hr IVPB Q12H [facility] Last Admin: 12/06/16 19:53 Dose: 100 mls/hr Vancomycin HCl (Vancocin 750mg/D5w 150 Ml) 150 mls @ 150 mls/hr IVPB Q12H [facility] Stop: 12/10/16 22:01 Last Admin: 12/06/16 12:00 Dose: Not Given Dextrose/Sodium Chloride (Dextrose 5%/0.45% Ns 1000 Ml) 1,000 mls @ 75 mls/hr IV .[id number] [facility] Last Admin: 12/06/16 16:12 Dose: 75 mls/hr Insulin Detemir (Levemir) 36 unit SC HS [facility] Insulin Human Regular (Novolin R) 6 unit SC ACL [facility] Last Admin: 12/06/16 12:10 Dose: 6 unit Insulin Human Regular (Novolin R) 6 unit SC ACD [facility] Last Admin: 12/05/16 17:01 Dose: Not Given Insulin Human Regular (Novolin R) 10 unit SC ACB [facility] Last Admin: 12/06/16 08:31 Dose: 10 unit Insulin Human Regular (Novolin R) 5 unit IV ONCE [facility] Insulin Human Regular (Novolin R) 0 unit SC ACHS [facility] PRN Reason: Protocol Last Admin: 12/06/16 21:33 Dose: 3 unit Lisinopril (Zestril) 10 mg PO DAILY [facility] Last Admin: 12/06/16 10:07 Dose: 10 mg Metoprolol Tartrate (Lopressor) 50 mg PO BID [facility] Last Admin: 12/06/16 17:22 Dose: Not Given Mirtazapine (Remeron) 30 mg PO HS [facility] Last Admin: 12/06/16 21:27 Dose: 30 mg Ondansetron HCl (Zofran Inj) 4 mg IVP Q6H PRN PRN Reason: Nausea/Vomiting Last Admin: 12/05/16 09:30 Dose: 4 mg Oxycodone/Acetaminophen (Percocet 5/325 Mg Tab) 2 tab PO Q4H PRN PRN Reason: Pain, moderate (4-7) Stop: 12/07/16 17:48 Last Admin: 12/06/16 10:05 Dose: 2 tab Oxycodone/Acetaminophen (Percocet 5/325 Mg Tab) 1 tab PO Q4H PRN PRN Reason: Pain, Mild (1-3) Stop: 12/07/16 17:48 Last Admin: 12/05/16 07:42 Dose: 1 tab Rosuvastatin Calcium (Crestor) 10 mg PO QPM [facility] Last Admin: 12/06/16 17:21 Dose: 10 mg Saccharomyces Boulardii (Florastor) 250 mg PO BID [facility] Last Admin: 12/06/16 17:21 Dose: 250 mg Tamsulosin HCl (Flomax) 0.4 mg PO DAILY [facility] Last Admin: 12/06/16 09:50 Dose: 0.4 mg - Labs Labs: 12/06/16 06:13 12/06/16 06:13 PT 11.5 SECONDS (9.7-12.2) 12/05/16 16:30 INR 1.0 12/05/16 16:30 APTT 31 SECONDS (21-34) 12/05/16 16:30 - Constitutional Appears: No Acute Distress - Head Exam Head Exam: ATRAUMATIC, NORMOCEPHALIC - Eye Exam Eye Exam: EOMI, PERRL - ENT Exam ENT Exam: Mucous Membranes Moist - Respiratory Exam Respiratory Exam: Clear to Ausculation Bilateral. absent: Rales, Rhonchi, Wheezes - Cardiovascular Exam Cardiovascular Exam: REGULAR RHYTHM, +S1, +S2 - GI/Abdominal Exam GI & Abdominal Exam: Soft, Normal Bowel Sounds. absent: Tenderness - Extremities Exam Extremities Exam: Calf Tenderness. absent: Pedal Edema Additional comments: dressings on right lower extremity c/d/i - Neurological Exam Neurological Exam: Alert, Awake, Oriented x3 - Psychiatric Exam Psychiatric exam: Normal Affect, Normal Mood - Skin Skin Exam: Dry, Warm Assessment and Plan - Assessment and Plan (Free Text) Plan: (1) S/P aneurysm repair Assessment and Plan: -POD # 10 S/P emergent repair of ruptured right femoral artery pseudo-aneurysm with proximal ligatation and removal of femoral artery stent and patch; ruptured pseudo-aneurysm (possibly infected) on 11/27/[address] Lorenzo. - POD #5 s/p Right common iliac-popliteal bypass with 8mm PTFE and right femoral embolectomy Vascular Surgeon, Dr Lorenzo is the Primary on the case Infectious Disease, Dr Herrera, consulted- help appreciated * Contact isolation * Right Groin Wound Culture 11/27/16-->E . Coli and MRSA * Wound culture: 11/27/16-->E. Coli * Blood Culture 11/27/16 shows no growth 5 days X2 * Pain control with Hydromorphone * Vancomycin 750 gm IV Q12h (12/01/16)--->elevated vancomycin trough; held vanco light of trough 12/02; random vancomycin level * Vancomycin resumed per ID; vancomycin trough improved * Cefepime 1 gm IV Q12H (11/27/16-ON) Status: Acute (2) Elevated alkaline phosphatase level Assessment and Plan: * Resolved * Per chart review, patient with Hx Dilated CBD * On prior admission patient was advised to follow up with outpatient elective cholecystectomy (3) STEVEN (acute kidney injury) Assessment and Plan: * Resolved * Will continue to monitor * vanco held in light of elevated trough on 12/02 * ID resumed vancomycin Status: Acute (4) Hyponatremia * This has resolved * Monitor (5) Acidosis likely Metabolic * Could be secondary to recent surgery vs possible infected right femoral artery catheter which was removed vs compounded by the use of Glipizide for DM 2 * Patient is resumed Vancomycin and Cefepime * Glipizide has been discontinued * This has resolved (6) Abdominal Bruit * Abdominal Aorta U/S ordered on 11/27/16 was discontinued as patient had Abdominal Angiography performed on 10/21/16 and this did NOT show Abdominal Aneurysm. Please see full report for finding of Right Femoral Artery Pseudoaneurysm. (7) History of Diabetes Mellitus 2 Assessment and Plan: * RISS - medium dose * Holding Glipizide because of the acidosis upon admission * Continue home Insulin Regimen: * Levemir 36 Units SC HS--->giving 1/2 dose of home medication to avoid hypoglycemia given patient's intermittent appetite changes (18 units subHS) * Regular Insulin (Home Lispro not carried by our pharmacy) 10 Units SC ACB and 6 Units SC ACL. The 6 units before dinner is held due to intermittent appetite changes. * Continue Accuchecks ACHS * Rosuvastatin 10mg PO HS * Lisinopril 10mg PO daily Status: Chronic (8) History Hypertension Assessment and Plan: * Resumed Lisinopril 10mg PO daily on 11/30/16 * Resumed Amlodipine 10mg PO 1x/day * Resumed Metoprolol tartrate 50 mg PO 2x/day with holding parameters 11/28/16 * Continue to monitor q6h Status: Chronic (9) History of anemia Assessment and Plan: * HgB/Hct are stable * Ferrous Sulfate 325mg PO 2x/day Status: Chronic (10) History Chronic pancreatitis Assessment and Plan: * Creon [id number] PO TID AC Meals not carried by our pharmacy therefore equilavent dose of Pacreaze Status: Chronic (11) History of depression Assessment and Plan: * Duloxetine 40mg PO HS * Mirtazapine 30mg PO HS Status: Chronic (12) History of BPH Assessment and Plan: * Finasteride 5mg PO 1x/day * Flomax 0.4 mg PO 1x/day Status: Chronic (13) History of Constipation * Colace 100 mg PO TID * Monitor bowel movement (14) Prophylactic measure Assessment and Plan: * GI: pepcid 20mg PO q12h * DVT: Patient is heparin dvt per vascular surgery; Aspirin 325mg PO daily, Plavix 75mg PO daily * Diet: Heart healthy, diabetic diet Case DW Dr. Marvin Alamo PGY-1
[2016-12-07] MEDS: Oxycodone/Acetaminophen 5/325 mg Tab PO PRN ×3 (08:11→23:03)
[2016-12-07 08:53] LABS: BASO # 0.1 K/uL (0.0-0.2); EOS # 0.3 K/uL (0.0-0.7); EOS % 4.4 % (0.0-4.0); HEMATOCRIT 27.5 % (35.0-51.0); LYMPH # 0.8 K/uL (1.0-4.3); LYMPH % 12.3 % (20.0-40.0); MEAN CELL VOLUME 88.7 fL (80.0-94.0); MEAN CORPUSCULAR HEMOGLOBIN 30.1 pg (27.0-31.0); MEAN PLATELET VOLUME 8.1 fL (7.2-11.7); MONO # 0.4 K/uL (0.0-0.8); RED CELL DISTRIBUTION WIDTH 15.4 % (11.5-14.5); WHITE BLOOD COUNT 6.3 K/uL (4.8-10.8)
[2016-12-07 09:02] LABS: CHLORIDE 93 mmol/L (98-107)
[2016-12-07 09:03] LABS: POTASSIUM 4.8 mmol/L (3.6-5.2); SODIUM 128 mmol/L (132-148)
[2016-12-07 09:05] LABS: BILIRUBIN,TOTAL 0.5 mg/dL (0.2-1.3); GFR AFRICAN-AMERICAN > 60
[2016-12-07 09:06] LABS: ALB/GLOB RATIO 0.8 (1.0-2.1); ALKALINE PHOSPHATASE 91 U/L (38-126); ALT/SGPT 38 U/L (21-72); AST/SGOT 24 U/L (17-59); BLOOD UREA NITROGEN 20 mg/dL (9-20); CALCIUM 8.6 mg/dl (8.6-10.4); CARBON DIOXIDE 28 mmol/L (22-30); GLUCOSE,RANDOM 397 mg/dL (75-110); TOTAL PROTEIN 6.8 g/dL (6.3-8.3)
[2016-12-07] MEDS: (Novolin R) Insulin Human Regular 100 units/ml vial SC SCH ×6 (09:14→22:36)
[2016-12-07] MEDS: Cefepime IV 1 gm in Dextrose 1 GM/50 ML BAG IVPB SCH (09:15)
--- NOTE | 2016-12-07 10:39 | CP.PCM.PN ---
Subjective - Date & Time of Evaluation Date of Evaluation: 12/07/16 Time of Evaluation: 07:00 - Subjective Subjective: VASCULAR SURGERY PROGRESS NOTE FOR DR. DENIS Patient seen and examined at bedside. He was transferred out of the ICU to the floor last night. He is sitting up in bed eating breakfast and reading a book. He reports some mild pain in his right foot and can move his foot a little bit. He is tolerating regular diet and denies nausea/vomiting. He had hypoglycemia yesterday evening and was given D50. Objective - Vital Signs/Intake and Output Vital Signs (last 24 hours): Temp Pulse Resp BP Pulse Ox 97.9 F 88 20 121/69 98 12/07/16 00:00 12/07/16 00:00 12/07/16 00:00 12/07/16 00:00 12/07/16 00:00 Intake and Output: 12/07/16 12/07/16 06:59 18:59 Intake Total 350 Balance 350 - Medications Medications: Current Medications Amlodipine Besylate (Norvasc) 10 mg PO DAILY [facility] Last Admin: 12/06/16 09:50 Dose: 10 mg Aspirin (Aspirin) 325 mg PO DAILY [facility] Last Admin: 12/06/16 09:49 Dose: 325 mg Clopidogrel Bisulfate (Plavix) 75 mg PO DAILY [facility] Last Admin: 12/06/16 09:49 Dose: 75 mg Dextrose (Dextrose 50% Inj) 0 ml IVP .STAT PRN; Protocol PRN Reason: Hypoglycemia Protocol Last Admin: 11/29/16 07:17 Dose: 50 ml Dextrose (Glutose 15) 0 gm PO .ONCE PRN; Protocol PRN Reason: Hypoglycemia Protocol Docusate Sodium (Colace) 100 mg PO TID [facility] Last Admin: 12/06/16 17:21 Dose: 100 mg Duloxetine HCl (Cymbalta) 40 mg PO HS [facility] Last Admin: 12/06/16 21:25 Dose: 40 mg Famotidine (Pepcid) 20 mg PO BID [facility] Last Admin: 12/06/16 17:21 Dose: 20 mg Ferrous Sulfate (Feosol) 325 mg PO BID [facility] Last Admin: 12/06/16 17:21 Dose: 325 mg Finasteride (Proscar) 5 mg PO DAILY [facility] Last Admin: 12/06/16 09:50 Dose: 5 mg Fluticasone Propionate (Flonase) 2 spr EMMA DAILY [facility] Last Admin: 12/06/16 09:50 Dose: 2 spr Glucagon (Glucagen Diagnostic Kit) 0 mg IM .STAT PRN; Protocol PRN Reason: Hypoglycemia Protocol Heparin Sodium (Porcine) (Heparin) 5,000 units SC Q12 [facility] Vancomycin HCl (Vancocin 750mg/D5w 150 Ml) 150 mls @ 150 mls/hr IVPB Q12H [facility] Stop: 12/10/16 22:01 Last Admin: 12/06/16 12:00 Dose: Not Given Insulin Detemir (Levemir) 36 unit SC HS [facility] Insulin Human Regular (Novolin R) 6 unit SC ACL [facility] Last Admin: 12/06/16 12:10 Dose: 6 unit Insulin Human Regular (Novolin R) 6 unit SC ACD [facility] Last Admin: 12/05/16 17:01 Dose: Not Given Insulin Human Regular (Novolin R) 10 unit SC ACB [facility] Last Admin: 12/07/16 09:14 Dose: 10 unit Insulin Human Regular (Novolin R) 5 unit IV ONCE [facility] Insulin Human Regular (Novolin R) 0 unit SC ACHS [facility] PRN Reason: Protocol Last Admin: 12/07/16 09:15 Dose: 12 unit Lisinopril (Zestril) 10 mg PO DAILY [facility] Last Admin: 12/06/16 10:07 Dose: 10 mg Metoprolol Tartrate (Lopressor) 50 mg PO BID [facility] Last Admin: 12/06/16 17:22 Dose: Not Given Mirtazapine (Remeron) 30 mg PO [facility] Last Admin: 12/06/16 21:27 Dose: 30 mg Ondansetron HCl (Zofran Inj) 4 mg IVP Q6H PRN PRN Reason: Nausea/Vomiting Last Admin: 12/05/16 09:30 Dose: 4 mg Oxycodone/Acetaminophen (Percocet 5/325 Mg Tab) 2 tab PO Q4H PRN PRN Reason: Pain, moderate (4-7) Stop: 12/07/16 17:48 Last Admin: 12/07/16 08:11 Dose: 2 tab Oxycodone/Acetaminophen (Percocet 5/325 Mg Tab) 1 tab PO Q4H PRN PRN Reason: Pain, Mild (1-3) Stop: 12/07/16 17:48 Last Admin: 12/05/16 07:42 Dose: 1 tab Rosuvastatin Calcium (Crestor) 10 mg PO QPM [facility] Last Admin: 12/06/16 17:21 Dose: 10 mg Saccharomyces Boulardii (Florastor) 250 mg PO BID [facility] Last Admin: 12/06/16 17:21 Dose: 250 mg Tamsulosin HCl (Flomax) 0.4 mg PO DAILY [facility] Last Admin: 12/06/16 09:50 Dose: 0.4 mg - Labs Labs: 12/07/16 08:22 12/07/16 08:22 PT 11.5 SECONDS (9.7-12.2) 12/05/16 16:30 INR 1.0 12/05/16 16:30 APTT 31 SECONDS (21-34) 12/05/16 16:30 - Constitutional Appears: Non-toxic, No Acute Distress - Head Exam Head Exam: ATRAUMATIC, NORMAL INSPECTION - Respiratory Exam Respiratory Exam: NORMAL BREATHING PATTERN. absent: Respiratory Distress - Cardiovascular Exam Cardiovascular Exam: +S1, +S2 - GI/Abdominal Exam GI & Abdominal Exam: Soft. absent: Distended, Guarding, Tenderness Additional comments: right groin dressing clean/dry/intact - Extremities Exam Additional comments: Right foot warm with strong palpable PT pulse Dressing clean/dry/intact - Neurological Exam Neurological Exam: Alert, Awake - Skin Skin Exam: Dry, Warm Assessment and Plan - Assessment and Plan (Free Text) Assessment: 70yo M with ruptured infected right femoral artery pseudo-aneurysm s/p emergent repair of ruptured right femoral artery pseudo-aneurysm with proximal ligatation and removal of femoral artery stent and patch POD#10, and now s/p Right common iliac-popliteal bypass with 8mm PTFE and right femoral embolectomy POD#5 - Afebrile, VSS - Hemoglobin 9.4 this morning - Continue IV Abx - GI: will do elective EGD/colonoscopy as outpatient - Heparin BID, Aspirin and Plavix - Physical therapy - Tolerating regular diet - No more knee brace needed - Discussed plan with Dr. Maura Mckeon PGY-3
[2016-12-07] MEDS: Fluticasone Nasal 50 mcg/Spray NAS SCH (12:35)
[2016-12-07] MEDS: Saccharomyces Boulardi 250 mg Cap PO SCH ×2 (12:35→17:27)
[2016-12-07] MEDS: LIPASE/PROTEASE/AMYLASE 4,200 U ECC PO SCH ×3 (12:43→17:25)
--- NOTE | 2016-12-07 15:01 | CP.PCM.PN ---
Subjective - Date & Time of Evaluation Date of Evaluation: 12/07/16 Time of Evaluation: 10:00 - Subjective Subjective: events noted iv rx reordered Objective - Vital Signs/Intake and Output Vital Signs (last 24 hours): Temp Pulse Resp BP Pulse Ox 97.9 F 88 20 121/69 98 12/07/16 00:00 12/07/16 00:00 12/07/16 00:00 12/07/16 00:00 12/07/16 00:00 Intake and Output: 12/07/16 12/07/16 06:59 18:59 Intake Total 350 Balance 350 - Medications Medications: Current Medications Amlodipine Besylate (Norvasc) 10 mg PO DAILY [facility] Last Admin: 12/07/16 12:37 Dose: Not Given Aspirin (Aspirin) 325 mg PO DAILY [facility] Last Admin: 12/07/16 12:34 Dose: 325 mg Clopidogrel Bisulfate (Plavix) 75 mg PO DAILY [facility] Last Admin: 12/07/16 12:34 Dose: 75 mg Dextrose (Dextrose 50% Inj) 0 ml IVP .STAT PRN; Protocol PRN Reason: Hypoglycemia Protocol Last Admin: 11/29/16 07:17 Dose: 50 ml Dextrose (Glutose 15) 0 gm PO .ONCE PRN; Protocol PRN Reason: Hypoglycemia Protocol Docusate Sodium (Colace) 100 mg PO TID [facility] Last Admin: 12/07/16 12:34 Dose: 100 mg Duloxetine HCl (Cymbalta) 40 mg PO HS [facility] Last Admin: 12/06/16 21:25 Dose: 40 mg Famotidine (Pepcid) 20 mg PO BID [facility] Last Admin: 12/07/16 12:34 Dose: 20 mg Ferrous Sulfate (Feosol) 325 mg PO BID [facility] Last Admin: 12/07/16 12:34 Dose: 325 mg Finasteride (Proscar) 5 mg PO DAILY [facility] Last Admin: 12/07/16 12:42 Dose: 5 mg Fluticasone Propionate (Flonase) 2 spr EMMA DAILY [facility] Last Admin: 12/07/16 12:35 Dose: 2 spr Glucagon (Glucagen Diagnostic Kit) 0 mg IM .STAT PRN; Protocol PRN Reason: Hypoglycemia Protocol Heparin Sodium (Porcine) (Heparin) 5,000 units SC Q12 [facility] Last Admin: 12/07/16 12:36 Dose: 5,000 units Vancomycin HCl (Vancocin 750mg/D5w 150 Ml) 150 mls @ 150 mls/hr IVPB Q12H [facility] Stop: 12/10/16 22:01 Last Admin: 12/06/16 12:00 Dose: Not Given Insulin Detemir (Levemir) 36 unit SC HS [facility] Insulin Human Regular (Novolin R) 6 unit SC ACL [facility] Last Admin: 12/07/16 12:43 Dose: Not Given Insulin Human Regular (Novolin R) 6 unit SC ACD [facility] Last Admin: 12/05/16 17:01 Dose: Not Given Insulin Human Regular (Novolin R) 10 unit SC ACB [facility] Last Admin: 12/07/16 09:14 Dose: 10 unit Insulin Human Regular (Novolin R) 5 unit IV ONCE [facility] Insulin Human Regular (Novolin R) 0 unit SC ACHS [facility] PRN Reason: Protocol Last Admin: 12/07/16 12:43 Dose: Not Given Lisinopril (Zestril) 10 mg PO DAILY [facility] Last Admin: 12/07/16 12:37 Dose: Not Given Metoprolol Tartrate (Lopressor) 50 mg PO BID [facility] Last Admin: 12/07/16 12:36 Dose: 50 mg Mirtazapine (Remeron) 30 mg PO [facility] Last Admin: 12/06/16 21:27 Dose: 30 mg Ondansetron HCl (Zofran Inj) 4 mg IVP Q6H PRN PRN Reason: Nausea/Vomiting Last Admin: 12/05/16 09:30 Dose: 4 mg Oxycodone/Acetaminophen (Percocet 5/325 Mg Tab) 2 tab PO Q4H PRN PRN Reason: Pain, moderate (4-7) Stop: 12/07/16 17:48 Last Admin: 12/07/16 08:11 Dose: 2 tab Oxycodone/Acetaminophen (Percocet 5/325 Mg Tab) 1 tab PO Q4H PRN PRN Reason: Pain, Mild (1-3) Stop: 12/07/16 17:48 Last Admin: 12/05/16 07:42 Dose: 1 tab Rosuvastatin Calcium (Crestor) 10 mg PO QPM [facility] Last Admin: 12/06/16 17:21 Dose: 10 mg Saccharomyces Boulardii (Florastor) 250 mg PO BID [facility] Last Admin: 12/07/16 12:35 Dose: 250 mg Tamsulosin HCl (Flomax) 0.4 mg PO DAILY [facility] Last Admin: 12/07/16 12:34 Dose: 0.4 mg - Labs Labs: 12/07/16 08:22 12/07/16 08:22 PT 11.5 SECONDS (9.7-12.2) 12/05/16 16:30 INR 1.0 12/05/16 16:30 APTT 31 SECONDS (21-34) 12/05/16 16:30 - Constitutional Appears: Non-toxic, Chronically Ill - Head Exam Head Exam: NORMOCEPHALIC - Eye Exam Eye Exam: Normal appearance, PERRL. absent: Scleral icterus - ENT Exam ENT Exam: Mucous Membranes Dry, Normal External Ear Exam - Neck Exam Neck Exam: absent: Lymphadenopathy - Respiratory Exam Respiratory Exam: Decreased Breath Sounds - Cardiovascular Exam Cardiovascular Exam: REGULAR RHYTHM, +S1, +S2 - GI/Abdominal Exam GI & Abdominal Exam: Distended - Rectal Exam Rectal Exam: Deferred - Exam Exam: NORMAL INSPECTION - Extremities Exam Extremities Exam: absent: Pedal Edema - Back Exam Back Exam: absent: CVA tenderness (L), CVA tenderness (R) - Neurological Exam Neurological Exam: Alert, Awake, Oriented x3 - Psychiatric Exam Psychiatric exam: Normal Mood - Skin Skin Exam: Dry Assessment and Plan (1) Femoral artery aneurysm, right Status: Acute (2) H/O ruptured arterial aneurysm Status: Resolved (3) S/P aneurysm repair Status: Acute
[2016-12-07] MEDS ORDERED: Insulin Detemir 100 units/ml Vial (Levemir) SC SCH (22:00)
[2016-12-07] MEDS: Insulin Detemir 100 units/ml Vial (Levemir) SC SCH (23:37)
[2016-12-08 07:41] LABS: BASO # 0.1 K/uL (0.0-0.2); BASO % 0.9 % (0.0-2.0); EOS # 0.4 K/uL (0.0-0.7); EOS % 4.4 % (0.0-4.0); LYMPH % 12.1 % (20.0-40.0); MEAN CELL VOLUME 88.6 fL (80.0-94.0); MEAN CORPUSCULAR HEMOGLOBIN 30.6 pg (27.0-31.0); MEAN CORPUSCULAR HGB CONC 34.5 g/dL (33.0-37.0); MONO # 0.6 K/uL (0.0-0.8); MONO % 7.8 % (0.0-10.0); RED CELL DISTRIBUTION WIDTH 15.6 % (11.5-14.5)
--- NOTE | 2016-12-08 07:48 | CP.PCM.PN ---
Subjective - Date & Time of Evaluation Date of Evaluation: 12/08/16 Time of Evaluation: 07:20 - Subjective Subjective: PGY-[address] Nathan Patient seen and examined at bedside. Patient states that he feels fine today but appetite still continues to wax and wane. Patient denies fever, chills, chest pain, dyspnea, abdominal pain, dysuria. Objective - Vital Signs/Intake and Output Vital Signs (last 24 hours): Temp Pulse Resp BP Pulse Ox 97.8 F 78 20 117/54 L 98 12/07/16 23:23 12/08/16 00:35 12/07/16 23:23 12/07/16 23:23 12/07/16 23:23 Intake and Output: 12/08/16 12/08/16 06:59 18:59 Intake Total 200 Output Total 300 Balance -100 - Medications Medications: Current Medications Amlodipine Besylate (Norvasc) 10 mg PO DAILY [facility] Last Admin: 12/07/16 12:37 Dose: Not Given Aspirin (Aspirin) 325 mg PO DAILY [facility] Last Admin: 12/07/16 12:34 Dose: 325 mg Clopidogrel Bisulfate (Plavix) 75 mg PO DAILY [facility] Last Admin: 12/07/16 12:34 Dose: 75 mg Dextrose (Dextrose 50% Inj) 0 ml IVP .STAT PRN; Protocol PRN Reason: Hypoglycemia Protocol Last Admin: 11/29/16 07:17 Dose: 50 ml Dextrose (Glutose 15) 0 gm PO .ONCE PRN; Protocol PRN Reason: Hypoglycemia Protocol Docusate Sodium (Colace) 100 mg PO TID [facility] Last Admin: 12/07/16 17:27 Dose: 100 mg Duloxetine HCl (Cymbalta) 40 mg PO HS [facility] Last Admin: 12/07/16 22:32 Dose: 40 mg Famotidine (Pepcid) 20 mg PO BID [facility] Last Admin: 12/07/16 17:27 Dose: 20 mg Ferrous Sulfate (Feosol) 325 mg PO BID [facility] Last Admin: 12/07/16 17:27 Dose: 325 mg Finasteride (Proscar) 5 mg PO DAILY [facility] Last Admin: 12/07/16 12:42 Dose: 5 mg Fluticasone Propionate (Flonase) 2 spr EMMA DAILY [facility] Last Admin: 12/07/16 12:35 Dose: 2 spr Glucagon (Glucagen Diagnostic Kit) 0 mg IM .STAT PRN; Protocol PRN Reason: Hypoglycemia Protocol Heparin Sodium (Porcine) (Heparin) 5,000 units SC Q12 [facility] Last Admin: 12/07/16 22:32 Dose: 5,000 units Vancomycin HCl (Vancocin 750mg/D5w 150 Ml) 150 mls @ 150 mls/hr IVPB Q12H [facility] Stop: 12/10/16 22:01 Last Admin: 12/06/16 12:00 Dose: Not Given Insulin Detemir (Levemir) 18 unit SC HS [facility] Last Admin: 12/07/16 23:37 Dose: 18 unit Insulin Human Regular (Novolin R) 6 unit SC ACL [facility] Last Admin: 12/07/16 12:43 Dose: Not Given Insulin Human Regular (Novolin R) 6 unit SC ACD [facility] Last Admin: 12/05/16 17:01 Dose: Not Given Insulin Human Regular (Novolin R) 10 unit SC ACB [facility] Last Admin: 12/07/16 09:14 Dose: 10 unit Insulin Human Regular (Novolin R) 5 unit IV ONCE [facility] Insulin Human Regular (Novolin R) 0 unit SC ACHS [facility] PRN Reason: Protocol Last Admin: 12/07/16 22:36 Dose: 3 unit Lisinopril (Zestril) 10 mg PO DAILY [facility] Last Admin: 12/07/16 12:37 Dose: Not Given Metoprolol Tartrate (Lopressor) 50 mg PO BID [facility] Last Admin: 12/07/16 17:28 Dose: 50 mg Mirtazapine (Remeron) 30 mg PO [facility] Last Admin: 12/07/16 22:29 Dose: 30 mg Ondansetron HCl (Zofran Inj) 4 mg IVP Q6H PRN PRN Reason: Nausea/Vomiting Last Admin: 12/05/16 09:30 Dose: 4 mg Oxycodone/Acetaminophen (Percocet 5/325 Mg Tab) 1 tab PO Q4H PRN PRN Reason: Pain, moderate (4-7) Stop: 12/10/16 22:43 Last Admin: 12/07/16 23:03 Dose: 1 tab Rosuvastatin Calcium (Crestor) 10 mg PO QPM [facility] Last Admin: 12/07/16 18:37 Dose: 10 mg Saccharomyces Boulardii (Florastor) 250 mg PO BID [facility] Last Admin: 10/15/17 17:27 Dose: 250 mg Tamsulosin HCl (Flomax) 0.4 mg PO DAILY [facility] Last Admin: 12/07/16 12:34 Dose: 0.4 mg - Labs Labs: 12/08/16 07:31 12/07/16 08:22 PT 11.5 SECONDS (9.7-12.2) 12/05/16 16:30 INR 1.0 12/05/16 16:30 APTT 31 SECONDS (21-34) 12/05/16 16:30 - Constitutional Appears: No Acute Distress - Head Exam Head Exam: ATRAUMATIC, NORMOCEPHALIC - Eye Exam Eye Exam: EOMI, PERRL - ENT Exam ENT Exam: Mucous Membranes Moist - Respiratory Exam Respiratory Exam: Clear to Ausculation Bilateral. absent: Rales, Rhonchi, Wheezes - Cardiovascular Exam Cardiovascular Exam: REGULAR RHYTHM, +S1, +S2 - GI/Abdominal Exam GI & Abdominal Exam: Soft, Normal Bowel Sounds. absent: Tenderness - Extremities Exam Extremities Exam: absent: Calf Tenderness, Pedal Edema Additional comments: dressings on right lower extremity dry and intact but not clean. Surgical service notified about dressing. - Neurological Exam Neurological Exam: Alert, Awake, Oriented x3 - Psychiatric Exam Psychiatric exam: Normal Affect, Normal Mood - Skin Skin Exam: Dry, Warm Assessment and Plan - Assessment and Plan (Free Text) Plan: (1) S/P aneurysm repair Assessment and Plan: -POD # 11 S/P emergent repair of ruptured right femoral artery pseudo-aneurysm with proximal ligatation and removal of femoral artery stent and patch; ruptured pseudo-aneurysm (possibly infected) on 11/27/[address] Lorenzo. - POD #6 s/p Right common iliac-popliteal bypass with 8mm PTFE and right femoral embolectomy Vascular Surgeon, Dr Lorenzo is the Primary on the case Infectious Disease, Dr Herrera, consulted- help appreciated * Contact isolation * Right Groin Wound Culture 11/27/16-->E . Coli and MRSA * Wound culture: 11/27/16-->E. Coli * Blood Culture 11/27/16 shows no growth 5 days X2 * Pain control with Hydromorphone * Vancomycin 750 gm IV Q12h (12/01/16)--->elevated vancomycin trough; held vanco light of trough 12/02; random vancomycin level * Vancomycin resumed per ID on 12/08/16 but dose reduced to daily * Cefepime 1 gm IV Q12H (11/27/16-12/07/16) Status: Acute (2) Elevated alkaline phosphatase level Assessment and Plan: * Resolved * Per chart review, patient with Hx Dilated CBD * On prior admission patient was advised to follow up with outpatient elective cholecystectomy (3) STEVEN (acute kidney injury) Assessment and Plan: * Resolved * Will continue to monitor * vanco held in light of elevated trough on 12/02 * ID resumed vancomycin Status: Acute (4) Hyponatremia * This has resolved * Monitor (5) Acidosis likely Metabolic * Could be secondary to recent surgery vs possible infected right femoral artery catheter which was removed vs compounded by the use of Glipizide for DM 2 * Patient is resumed Vancomycin and Cefepime * Glipizide has been discontinued * This has resolved (6) Abdominal Bruit * Abdominal Aorta U/S ordered on 11/27/16 was discontinued as patient had Abdominal Angiography performed on 10/21/16 and this did NOT show Abdominal Aneurysm. Please see full report for finding of Right Femoral Artery Pseudoaneurysm. (7) History of Diabetes Mellitus 2 Assessment and Plan: * RISS - medium dose * Holding Glipizide because of the acidosis upon admission * Continue home Insulin Regimen: * Levemir 36 Units SC HS--->giving 1/2 dose of home medication to avoid hypoglycemia given patient's intermittent appetite changes (18 units subHS) * Regular Insulin (Home Lispro not carried by our pharmacy) 10 Units SC ACB and 6 Units SC ACL. The 6 units before dinner is held due to intermittent appetite changes. * Continue Accuchecks ACHS * Rosuvastatin 10mg PO HS * Lisinopril 10mg PO daily Status: Chronic (8) History Hypertension Assessment and Plan: * Resumed Lisinopril 10mg PO daily on 11/30/16 * Resumed Amlodipine 10mg PO 1x/day * Resumed Metoprolol tartrate 50 mg PO 2x/day with holding parameters 11/28/16 * Continue to monitor q6h Status: Chronic (9) History of anemia Assessment and Plan: * HgB/Hct are stable * Ferrous Sulfate 325mg PO 2x/day Status: Chronic (10) History Chronic pancreatitis Assessment and Plan: * Creon [id number] PO TID AC Meals not carried by our pharmacy therefore equilavent dose of Pacreaze Status: Chronic (11) History of depression Assessment and Plan: * Duloxetine 40mg PO HS * Mirtazapine 30mg PO HS Status: Chronic (12) History of BPH Assessment and Plan: * Finasteride 5mg PO 1x/day * Flomax 0.4 mg PO 1x/day Status: Chronic (13) History of Constipation * Colace 100 mg PO TID * Monitor bowel movement (14) Prophylactic measure Assessment and Plan: * GI: pepcid 20mg PO q12h * DVT: Patient is heparin dvt per vascular surgery; Aspirin 325mg PO daily, Plavix 75mg PO daily * Diet: Heart healthy, diabetic diet Case DW Dr. Jac Alamo PGY-1
[2016-12-08] MEDS: Oxycodone/Acetaminophen 5/325 mg Tab PO PRN (08:19)
[2016-12-08] MEDS: (Novolin R) Insulin Human Regular 100 units/ml vial SC SCH ×7 (08:20→22:03)
[2016-12-08] MEDS: LIPASE/PROTEASE/AMYLASE 4,200 U ECC PO SCH ×3 (08:22→17:52)
[2016-12-08 08:26] LABS: POTASSIUM 4.6 mmol/L (3.6-5.2)
[2016-12-08 08:28] LABS: BILIRUBIN,TOTAL 0.5 mg/dL (0.2-1.3)
[2016-12-08 08:29] LABS: ALB/GLOB RATIO 0.9 (1.0-2.1); CALCIUM 8.5 mg/dl (8.6-10.4); TOTAL PROTEIN 6.5 g/dL (6.3-8.3)
--- NOTE | 2016-12-08 08:46 | CP.PCM.PN ---
Subjective - Date & Time of Evaluation Date of Evaluation: 12/08/16 Time of Evaluation: 08:45 - Subjective Subjective: overall much improved needs PT Objective - Vital Signs/Intake and Output Vital Signs (last 24 hours): Temp Pulse Resp BP Pulse Ox 97.8 F 78 20 117/54 L 98 12/07/16 23:23 12/08/16 00:35 12/07/16 23:23 12/07/16 23:23 12/07/16 23:23 Intake and Output: 12/08/16 12/08/16 06:59 18:59 Intake Total 200 Output Total 300 Balance -100 - Medications Medications: Current Medications Amlodipine Besylate (Norvasc) 10 mg PO DAILY [facility] Last Admin: 12/07/16 12:37 Dose: Not Given Aspirin (Aspirin) 325 mg PO DAILY [facility] Last Admin: 12/07/16 12:34 Dose: 325 mg Clopidogrel Bisulfate (Plavix) 75 mg PO DAILY [facility] Last Admin: 12/07/16 12:34 Dose: 75 mg Dextrose (Dextrose 50% Inj) 0 ml IVP .STAT PRN; Protocol PRN Reason: Hypoglycemia Protocol Last Admin: 11/29/16 07:17 Dose: 50 ml Dextrose (Glutose 15) 0 gm PO .ONCE PRN; Protocol PRN Reason: Hypoglycemia Protocol Docusate Sodium (Colace) 100 mg PO TID [facility] Last Admin: 12/07/16 17:27 Dose: 100 mg Duloxetine HCl (Cymbalta) 40 mg PO HS [facility] Last Admin: 12/07/16 22:32 Dose: 40 mg Famotidine (Pepcid) 20 mg PO BID [facility] Last Admin: 12/07/16 17:27 Dose: 20 mg Ferrous Sulfate (Feosol) 325 mg PO BID [facility] Last Admin: 12/07/16 17:27 Dose: 325 mg Finasteride (Proscar) 5 mg PO DAILY [facility] Last Admin: 12/07/16 12:42 Dose: 5 mg Fluticasone Propionate (Flonase) 2 spr EMMA DAILY [facility] Last Admin: 12/07/16 12:35 Dose: 2 spr Glucagon (Glucagen Diagnostic Kit) 0 mg IM .STAT PRN; Protocol PRN Reason: Hypoglycemia Protocol Heparin Sodium (Porcine) (Heparin) 5,000 units SC Q12 [facility] Last Admin: 12/07/16 22:32 Dose: 5,000 units Vancomycin HCl (Vancocin 750mg/D5w 150 Ml) 150 mls @ 150 mls/hr IVPB Q12H [facility] Stop: 12/10/16 22:01 Last Admin: 12/06/16 12:00 Dose: Not Given Insulin Detemir (Levemir) 18 unit SC HS [facility] Last Admin: 12/07/16 23:37 Dose: 18 unit Insulin Human Regular (Novolin R) 6 unit SC ACL [facility] Last Admin: 12/07/16 12:43 Dose: Not Given Insulin Human Regular (Novolin R) 6 unit SC ACD [facility] Last Admin: 12/05/16 17:01 Dose: Not Given Insulin Human Regular (Novolin R) 10 unit SC ACB [facility] Last Admin: 12/08/16 08:20 Dose: 10 unit Insulin Human Regular (Novolin R) 5 unit IV ONCE [facility] Insulin Human Regular (Novolin R) 0 unit SC ACHS [facility] PRN Reason: Protocol Last Admin: 12/08/16 08:21 Dose: 6 unit Lisinopril (Zestril) 10 mg PO DAILY [facility] Last Admin: 12/07/16 12:37 Dose: Not Given Metoprolol Tartrate (Lopressor) 50 mg PO BID [facility] Last Admin: 12/07/16 17:28 Dose: 50 mg Mirtazapine (Remeron) 30 mg PO [facility] Last Admin: 12/07/16 22:29 Dose: 30 mg Ondansetron HCl (Zofran Inj) 4 mg IVP Q6H PRN PRN Reason: Nausea/Vomiting Last Admin: 12/05/16 09:30 Dose: 4 mg Oxycodone/Acetaminophen (Percocet 5/325 Mg Tab) 1 tab PO Q4H PRN PRN Reason: Pain, moderate (4-7) Stop: 12/10/16 22:43 Last Admin: 12/08/16 08:19 Dose: 1 tab Rosuvastatin Calcium (Crestor) 10 mg PO QPM [facility] Last Admin: 12/07/16 18:37 Dose: 10 mg Saccharomyces Boulardii (Florastor) 250 mg PO BID [facility] Last Admin: 12/07/16 17:27 Dose: 250 mg Tamsulosin HCl (Flomax) 0.4 mg PO DAILY [facility] Last Admin: 12/07/16 12:34 Dose: 0.4 mg - Labs Labs: 12/08/16 07:31 12/08/16 07:31 PT 11.5 SECONDS (9.7-12.2) 12/05/16 16:30 INR 1.0 12/05/16 16:30 APTT 31 SECONDS (21-34) 12/05/16 16:30
[2016-12-08] MEDS: Saccharomyces Boulardi 250 mg Cap PO SCH ×2 (10:36→17:52)
[2016-12-08] MEDS: Fluticasone Nasal 50 mcg/Spray NAS SCH (10:43)
[2016-12-08] MEDS ORDERED: Oxycodone/Acetaminophen 5/325 mg Tab PO STA (11:49)
--- NOTE | 2016-12-08 12:01 | CP.PCM.PN ---
Subjective - Date & Time of Evaluation Date of Evaluation: 12/08/16 Time of Evaluation: 09:00 - Subjective Subjective: afeb on iv rx discussed on rounds Objective - Vital Signs/Intake and Output Vital Signs (last 24 hours): Temp Pulse Resp BP Pulse Ox 98.2 F 90 18 118/60 97 12/08/16 10:34 12/08/16 11:32 12/08/16 10:34 12/08/16 10:34 12/08/16 11:32 Intake and Output: 12/08/16 12/08/16 06:59 18:59 Intake Total 200 Output Total 300 Balance -100 - Medications Medications: Current Medications Amlodipine Besylate (Norvasc) 10 mg PO DAILY [facility] Last Admin: 12/08/16 10:37 Dose: 10 mg Aspirin (Aspirin) 325 mg PO DAILY [facility] Last Admin: 12/08/16 10:36 Dose: 325 mg Clopidogrel Bisulfate (Plavix) 75 mg PO DAILY [facility] Last Admin: 12/08/16 10:36 Dose: 75 mg Dextrose (Dextrose 50% Inj) 0 ml IVP .STAT PRN; Protocol PRN Reason: Hypoglycemia Protocol Last Admin: 11/29/16 07:17 Dose: 50 ml Dextrose (Glutose 15) 0 gm PO .ONCE PRN; Protocol PRN Reason: Hypoglycemia Protocol Docusate Sodium (Colace) 100 mg PO TID [facility] Last Admin: 12/08/16 10:36 Dose: 100 mg Duloxetine HCl (Cymbalta) 40 mg PO HS [facility] Last Admin: 12/07/16 22:32 Dose: 40 mg Famotidine (Pepcid) 20 mg PO BID [facility] Last Admin: 12/08/16 10:42 Dose: 20 mg Ferrous Sulfate (Feosol) 325 mg PO BID [facility] Last Admin: 12/08/16 10:36 Dose: 325 mg Finasteride (Proscar) 5 mg PO DAILY [facility] Last Admin: 12/08/16 10:39 Dose: 5 mg Fluticasone Propionate (Flonase) 2 spr EMMA DAILY [facility] Last Admin: 12/08/16 10:43 Dose: 2 spr Glucagon (Glucagen Diagnostic Kit) 0 mg IM .STAT PRN; Protocol PRN Reason: Hypoglycemia Protocol Heparin Sodium (Porcine) (Heparin) 5,000 units SC Q12 [facility] Last Admin: 12/08/16 10:35 Dose: 5,000 units Insulin Detemir (Levemir) 18 unit SC HS [facility] Last Admin: 12/07/16 23:37 Dose: 18 unit Insulin Human Regular (Novolin R) 6 unit SC ACL [facility] Last Admin: 12/08/16 10:35 Dose: 6 unit Insulin Human Regular (Novolin R) 6 unit SC ACD [facility] Last Admin: 12/05/16 17:01 Dose: Not Given Insulin Human Regular (Novolin R) 10 unit SC ACB [facility] Last Admin: 12/08/16 08:20 Dose: 10 unit Insulin Human Regular (Novolin R) 5 unit IV ONCE [facility] Insulin Human Regular (Novolin R) 0 unit SC ACHS [facility] PRN Reason: Protocol Last Admin: 12/08/16 08:21 Dose: 6 unit Lisinopril (Zestril) 10 mg PO DAILY [facility] Last Admin: 12/08/16 10:37 Dose: 10 mg Metoprolol Tartrate (Lopressor) 50 mg PO BID [facility] Last Admin: 12/08/16 10:37 Dose: 50 mg Mirtazapine (Remeron) 30 mg PO [facility] Last Admin: 12/07/16 22:29 Dose: 30 mg Ondansetron HCl (Zofran Inj) 4 mg IVP Q6H PRN PRN Reason: Nausea/Vomiting Last Admin: 12/05/16 09:30 Dose: 4 mg Oxycodone/Acetaminophen (Percocet 5/325 Mg Tab) 1 tab PO Q4H PRN PRN Reason: Pain, moderate (4-7) Stop: 12/10/16 22:43 Last Admin: 12/08/16 08:19 Dose: 1 tab Oxycodone/Acetaminophen (Percocet 5/325 Mg Tab) 1 tab PO Q4H [facility] Stop: 12/08/16 11:50 Rosuvastatin Calcium (Crestor) 10 mg PO QPM [facility] Last Admin: 12/07/16 18:37 Dose: 10 mg Saccharomyces Boulardii (Florastor) 250 mg PO BID [facility] Last Admin: 12/08/16 10:36 Dose: 250 mg Tamsulosin HCl (Flomax) 0.4 mg PO DAILY [facility] Last Admin: 12/08/16 10:42 Dose: 0.4 mg - Labs Labs: 12/08/16 07:31 12/08/16 07:31 PT 11.5 SECONDS (9.7-12.2) 12/05/16 16:30 INR 1.0 12/05/16 16:30 APTT 31 SECONDS (21-34) 12/05/16 16:30 - Constitutional Appears: Non-toxic, Chronically Ill - Head Exam Head Exam: NORMOCEPHALIC - ENT Exam ENT Exam: Mucous Membranes Dry - Neck Exam Neck Exam: absent: Lymphadenopathy - Respiratory Exam Respiratory Exam: Decreased Breath Sounds, Rhonchi - Cardiovascular Exam Cardiovascular Exam: REGULAR RHYTHM - GI/Abdominal Exam GI & Abdominal Exam: Distended, Soft - Rectal Exam Rectal Exam: Deferred Assessment and Plan (1) Femoral artery aneurysm, right Status: Acute (2) H/O ruptured arterial aneurysm Status: Resolved (3) S/P aneurysm repair Status: Acute
[2016-12-08] MEDS: Insulin Detemir 100 units/ml Vial (Levemir) SC SCH (22:04)
--- NOTE | 2016-12-09 07:12 | CP.PCM.PN ---
<Wyatt Alamo - Last Filed: 12/09/16 18:14> Subjective - Date & Time of Evaluation Date of Evaluation: 12/09/16 Time of Evaluation: 07:40 - Subjective Subjective: PGY-[address] Kris Santana Patient seen and examined at bedside. Patient states that he feels fine today. Patient's appetite continues to wax and wane. Patient is unsure of why his blood sugars keep fluctuating. Patient denies fever, chills, chest pain, dyspnea , abdominal pain, dysuria. Objective - Vital Signs/Intake and Output Vital Signs (last 24 hours): Temp Pulse Resp BP Pulse Ox 98.3 F 77 20 153/72 H 98 12/08/16 23:09 12/09/16 04:24 12/08/16 23:09 12/09/16 00:00 12/08/16 23:09 Intake and Output: 12/09/16 12/09/16 06:59 18:59 Output Total 200 Balance -200 - Medications Medications: Current Medications Amlodipine Besylate (Norvasc) 10 mg PO DAILY [facility] Last Admin: 12/08/16 10:37 Dose: 10 mg Aspirin (Aspirin) 325 mg PO DAILY [facility] Last Admin: 12/08/16 10:36 Dose: 325 mg Clopidogrel Bisulfate (Plavix) 75 mg PO DAILY [facility] Last Admin: 12/08/16 10:36 Dose: 75 mg Dextrose (Dextrose 50% Inj) 0 ml IVP .STAT PRN; Protocol PRN Reason: Hypoglycemia Protocol Last Admin: 11/29/16 07:17 Dose: 50 ml Dextrose (Glutose 15) 0 gm PO .ONCE PRN; Protocol PRN Reason: Hypoglycemia Protocol Docusate Sodium (Colace) 100 mg PO TID [facility] Last Admin: 12/08/16 17:52 Dose: 100 mg Duloxetine HCl (Cymbalta) 40 mg PO HS [facility] Last Admin: 12/08/16 22:06 Dose: 40 mg Famotidine (Pepcid) 20 mg PO BID [facility] Last Admin: 12/08/16 17:57 Dose: 20 mg Ferrous Sulfate (Feosol) 325 mg PO BID [facility] Last Admin: 12/08/16 17:52 Dose: 325 mg Finasteride (Proscar) 5 mg PO DAILY [facility] Last Admin: 12/08/16 10:39 Dose: 5 mg Fluticasone Propionate (Flonase) 2 spr EMMA DAILY [facility] Last Admin: 12/08/16 10:43 Dose: 2 spr Glucagon (Glucagen Diagnostic Kit) 0 mg IM .STAT PRN; Protocol PRN Reason: Hypoglycemia Protocol Heparin Sodium (Porcine) (Heparin) 5,000 units SC Q12 [facility] Last Admin: 12/08/16 22:04 Dose: 5,000 units Vancomycin HCl 1 gm/ Sodium (Chloride) 250 mls @ 166.7 mls/hr IVPB Q24H [facility] Last Admin: 12/08/16 12:47 Dose: 166.7 mls/hr Insulin Detemir (Levemir) 18 unit SC HS [facility] Last Admin: 12/08/16 22:04 Dose: 18 unit Insulin Human Regular (Novolin R) 6 unit SC ACL [facility] Last Admin: 12/08/16 10:35 Dose: 6 unit Insulin Human Regular (Novolin R) 6 unit SC ACD [facility] Last Admin: 12/05/16 17:01 Dose: Not Given Insulin Human Regular (Novolin R) 10 unit SC ACB [facility] Last Admin: 12/08/16 08:20 Dose: 10 unit Insulin Human Regular (Novolin R) 5 unit IV ONCE [facility] Insulin Human Regular (Novolin R) 0 unit SC ACHS [facility] PRN Reason: Protocol Last Admin: 12/08/16 22:03 Dose: 3 unit Ketorolac Tromethamine (Toradol) 15 mg IVP Q6 PRN PRN Reason: Pain, moderate (4-7) Lisinopril (Zestril) 10 mg PO DAILY [facility] Last Admin: 12/08/16 10:37 Dose: 10 mg Metoprolol Tartrate (Lopressor) 50 mg PO BID [facility] Last Admin: 12/08/16 17:52 Dose: 50 mg Mirtazapine (Remeron) 30 mg PO [facility] Last Admin: 12/09/16 00:20 Dose: 30 mg Ondansetron HCl (Zofran Inj) 4 mg IVP Q6H PRN PRN Reason: Nausea/Vomiting Last Admin: 12/05/16 09:30 Dose: 4 mg Oxycodone/Acetaminophen (Percocet 5/325 Mg Tab) 1 tab PO Q4H PRN PRN Reason: Pain, moderate (4-7) Stop: 12/10/16 22:43 Last Admin: 12/08/16 08:19 Dose: 1 tab Rosuvastatin Calcium (Crestor) 10 mg PO QPM [facility] Last Admin: 12/08/16 17:52 Dose: 10 mg Saccharomyces Boulardii (Florastor) 250 mg PO BID [facility] Last Admin: 12/08/16 17:52 Dose: 250 mg Tamsulosin HCl (Flomax) 0.4 mg PO DAILY [facility] Last Admin: 12/08/16 10:42 Dose: 0.4 mg - Labs Labs: 12/08/16 07:31 12/08/16 07:31 PT 11.5 SECONDS (9.7-12.2) 12/05/16 16:30 INR 1.0 12/05/16 16:30 APTT 31 SECONDS (21-34) 12/05/16 16:30 - Constitutional Appears: No Acute Distress - Head Exam Head Exam: ATRAUMATIC, NORMOCEPHALIC - Eye Exam Eye Exam: EOMI, PERRL - ENT Exam ENT Exam: Mucous Membranes Moist - Respiratory Exam Respiratory Exam: Clear to Ausculation Bilateral. absent: Rales, Rhonchi, Wheezes - Cardiovascular Exam Cardiovascular Exam: REGULAR RHYTHM, +S1, +S2, Murmur (systolic) - GI/Abdominal Exam GI & Abdominal Exam: Bruit (normal per Dr. Lorenzo given the extent of patient' s LE vascular procedures), Soft, Normal Bowel Sounds. absent: Distended, Tenderness - Extremities Exam Extremities Exam: absent: Calf Tenderness, Pedal Edema Additional comments: dressings on right lower extremity c/d/i - Neurological Exam Neurological Exam: Alert, Awake, Oriented x3 - Psychiatric Exam Psychiatric exam: Normal Affect, Normal Mood - Skin Skin Exam: Dry, Warm Assessment and Plan - Assessment and Plan (Free Text) Plan: (1) S/P aneurysm repair Assessment and Plan: -POD # 11 S/P emergent repair of ruptured right femoral artery pseudo-aneurysm with proximal ligatation and removal of femoral artery stent and patch; ruptured pseudo-aneurysm (possibly infected) on 11/27/[address] Lorenzo. - POD #6 s/p Right common iliac-popliteal bypass with 8mm PTFE and right femoral embolectomy Vascular Surgeon, Dr Lorenzo is the Primary on the case Infectious Disease, Dr Herrera, consulted- help appreciated * Contact isolation * Right Groin Wound Culture 11/27/16-->E . Coli and MRSA * Wound culture: 11/27/16-->E. Coli * Blood Culture 11/27/16 shows no growth 5 days X2 * Pain control with Hydromorphone * Vancomycin 750 gm IV Q12h (12/01/16)--->elevated vancomycin trough; held vanco light of trough 12/02; random vancomycin level * Vancomycin resumed per ID on 12/08/16 but dose reduced to daily * Cefepime 1 gm IV Q12H (11/27/16-12/07/16) Status: Acute (2) Elevated alkaline phosphatase level Assessment and Plan: * Resolved * Per chart review, patient with Hx Dilated CBD * On prior admission patient was advised to follow up with outpatient elective cholecystectomy (3) STEVEN (acute kidney injury) Assessment and Plan: * Resolved * Will continue to monitor * vanco held in light of elevated trough on 12/02 * ID resumed vancomycin Status: Acute (4) Hyponatremia * This has resolved * Monitor (5) Acidosis likely Metabolic * Could be secondary to recent surgery vs possible infected right femoral artery catheter which was removed vs compounded by the use of Glipizide for DM 2 * Patient is resumed Vancomycin and Cefepime * Glipizide has been discontinued * This has resolved (6) Abdominal Bruit * Abdominal Aorta U/S ordered on 11/27/16 was discontinued as patient had Abdominal Angiography performed on 10/21/16 and this did NOT show Abdominal Aneurysm. Please see full report for finding of Right Femoral Artery Pseudoaneurysm. (7) History of Diabetes Mellitus 2 Assessment and Plan: * RISS - medium dose * Holding Glipizide because of the acidosis upon admission * Continue home Insulin Regimen: * Levemir 36 Units SC HS--->giving 1/2 dose of home medication to avoid hypoglycemia given patient's intermittent appetite changes (18 units subHS) * Regular Insulin (Home Lispro not carried by our pharmacy) 10 Units SC ACB and 6 Units SC ACL. The 6 units before dinner is held due to intermittent appetite changes. * Continue Accuchecks ACHS * Rosuvastatin 10mg PO HS * Lisinopril 10mg PO daily Status: Chronic (8) History Hypertension Assessment and Plan: * Resumed Lisinopril 10mg PO daily on 11/30/16 * Resumed Amlodipine 10mg PO 1x/day * Resumed Metoprolol tartrate 50 mg PO 2x/day with holding parameters 11/28/16-- lowered dose to 25 BID on 12/09/16 due to orthostatic hypotension during PT in the morning * Continue to monitor q6h Status: Chronic (9) History of anemia Assessment and Plan: * HgB/Hct are stable * Ferrous Sulfate 325mg PO 2x/day Status: Chronic (10) History Chronic pancreatitis Assessment and Plan: * Creon [id number] PO TID AC Meals not carried by our pharmacy therefore equilavent dose of Pacreaze Status: Chronic (11) History of depression Assessment and Plan: * Duloxetine 40mg PO HS * Mirtazapine 30mg PO HS Status: Chronic (12) History of BPH Assessment and Plan: * Finasteride 5mg PO 1x/day * Flomax 0.4 mg PO 1x/day Status: Chronic (13) History of Constipation * Colace 100 mg PO TID * Monitor bowel movement (14) Prophylactic measure Assessment and Plan: * GI: pepcid 20mg PO q12h * DVT: Patient is heparin dvt per vascular surgery; Aspirin 325mg PO daily, Plavix 75mg PO daily * Diet: Heart healthy, diabetic diet * Glucerna protein shakes Case Dr. Marisol Alamo PGY-1 <Kris Santana - Last Filed: 12/09/16 19:51> Objective - Vital Signs/Intake and Output Vital Signs (last 24 hours): Temp Pulse Resp BP Pulse Ox 98.2 F 62 20 123/66 99 12/09/16 16:00 12/09/16 16:00 12/09/16 16:00 12/09/16 17:38 12/09/16 16:00 - Medications Medications: Current Medications Amlodipine Besylate (Norvasc) 10 mg PO DAILY [facility] Last Admin: 12/09/16 09:58 Dose: Not Given Aspirin (Aspirin) 325 mg PO DAILY [facility] Last Admin: 12/09/16 09:57 Dose: 325 mg Clopidogrel Bisulfate (Plavix) 75 mg PO DAILY [facility] Last Admin: 12/09/16 09:56 Dose: 75 mg Dextrose (Dextrose 50% Inj) 0 ml IVP .STAT PRN; Protocol PRN Reason: Hypoglycemia Protocol Last Admin: 11/29/16 07:17 Dose: 50 ml Dextrose (Glutose 15) 0 gm PO .ONCE PRN; Protocol PRN Reason: Hypoglycemia Protocol Docusate Sodium (Colace) 100 mg PO TID [facility] Last Admin: 12/09/16 17:35 Dose: 100 mg Duloxetine HCl (Cymbalta) 40 mg PO HS [facility] Last Admin: 12/08/16 22:06 Dose: 40 mg Famotidine (Pepcid) 20 mg PO BID [facility] Last Admin: 12/09/16 17:35 Dose: 20 mg Ferrous Sulfate (Feosol) 325 mg PO BID [facility] Last Admin: 12/09/16 17:35 Dose: 325 mg Finasteride (Proscar) 5 mg PO DAILY [facility] Last Admin: 12/09/16 09:57 Dose: 5 mg Fluticasone Propionate (Flonase) 2 spr EMMA DAILY [facility] Last Admin: 12/09/16 11:59 Dose: 2 spr Glucagon (Glucagen Diagnostic Kit) 0 mg IM .STAT PRN; Protocol PRN Reason: Hypoglycemia Protocol Heparin Sodium (Porcine) (Heparin) 5,000 units SC Q12 [facility] Last Admin: 12/09/16 09:56 Dose: 5,000 units Vancomycin HCl 1 gm/ Sodium (Chloride) 250 mls @ 166.7 mls/hr IVPB Q24H [facility] Last Admin: 12/09/16 11:24 Dose: 166.7 mls/hr Insulin Detemir (Levemir) 18 unit SC HS [facility] Last Admin: 12/08/16 22:04 Dose: 18 unit Insulin Human Regular (Novolin R) 6 unit SC ACL [facility] Last Admin: 12/09/16 11:58 Dose: 6 unit Insulin Human Regular (Novolin R) 6 unit SC ACD [facility] Last Admin: 12/05/16 17:01 Dose: Not Given Insulin Human Regular (Novolin R) 10 unit SC ACB [facility] Last Admin: 12/09/16 08:27 Dose: 10 unit Insulin Human Regular (Novolin R) 5 unit IV ONCE [facility] Insulin Human Regular (Novolin R) 0 unit SC ACHS [facility] PRN Reason: Protocol Last Admin: 12/09/16 17:20 Dose: Not Given Ketorolac Tromethamine (Toradol) 15 mg IVP Q6 PRN PRN Reason: Pain, moderate (4-7) Last Admin: 12/09/16 10:07 Dose: 15 mg Lisinopril (Zestril) 10 mg PO DAILY [facility] Last Admin: 12/09/16 09:58 Dose: Not Given Metoprolol Tartrate (Lopressor) 25 mg PO BID [facility] Last Admin: 12/09/16 17:38 Dose: 25 mg Mirtazapine (Remeron) 30 mg PO HS [facility] Last Admin: 12/09/16 00:20 Dose: 30 mg Ondansetron HCl (Zofran Inj) 4 mg IVP Q6H PRN PRN Reason: Nausea/Vomiting Last Admin: 12/05/16 09:30 Dose: 4 mg Oxycodone/Acetaminophen (Percocet 5/325 Mg Tab) 1 tab PO Q4H PRN PRN Reason: Pain, moderate (4-7) Stop: 12/10/16 22:43 Last Admin: 12/09/16 17:35 Dose: 1 tab Rosuvastatin Calcium (Crestor) 10 mg PO QPM [facility] Last Admin: 12/09/16 17:35 Dose: 10 mg Saccharomyces Boulardii (Florastor) 250 mg PO BID [facility] Last Admin: 12/09/16 17:35 Dose: 250 mg Tamsulosin HCl (Flomax) 0.4 mg PO DAILY [facility] Last Admin: 12/09/16 09:57 Dose: 0.4 mg - Labs Labs: 12/09/16 08:14 12/09/16 08:14 PT 11.5 SECONDS (9.7-12.2) 12/05/16 16:30 INR 1.0 12/05/16 16:30 APTT 31 SECONDS (21-34) 12/05/16 16:30 Attending/Attestation - Attestation I have personally seen and examined this patient.: Yes I have fully participated in the care of the patient.: Yes I have reviewed all pertinent clinical information, including history, physical exam and plan: Yes Notes (Text): 12/09/16 19:47 Patient was seen and examined shortly after the resident. Exam, assessment and plan were thoroughly gone over with the resident Also on ROS: Patient had large bowel movement 12/08/16. Also on Exam: Right LE as now normal in color and warm and equal with the Left Disposition: Speak with Wrecking Supervisor Nain WEBER once cleared by Vascular Surgery. Kris Santana D.O.
[2016-12-09 08:22] LABS: BASO # 0.1 K/uL (0.0-0.2); BASO % 0.8 % (0.0-2.0); EOS # 0.4 K/uL (0.0-0.7); EOS % 4.8 % (0.0-4.0); HEMATOCRIT 27.6 % (35.0-51.0); LYMPH # 0.9 K/uL (1.0-4.3); LYMPH % 11.4 % (20.0-40.0); MEAN CELL VOLUME 87.9 fL (80.0-94.0); MEAN CORPUSCULAR HEMOGLOBIN 29.8 pg (27.0-31.0); MEAN CORPUSCULAR HGB CONC 33.9 g/dL (33.0-37.0); MEAN PLATELET VOLUME 7.9 fL (7.2-11.7); MONO # 0.6 K/uL (0.0-0.8); RED CELL DISTRIBUTION WIDTH 15.8 % (11.5-14.5); WHITE BLOOD COUNT 7.6 K/uL (4.8-10.8)
[2016-12-09] MEDS: (Novolin R) Insulin Human Regular 100 units/ml vial SC SCH ×6 (08:27→22:22)
[2016-12-09] MEDS: LIPASE/PROTEASE/AMYLASE 4,200 U ECC PO SCH ×3 (08:27→17:38)
[2016-12-09 08:38] LABS: CHLORIDE 96 mmol/L (98-107); POTASSIUM 4.9 mmol/L (3.6-5.2); SODIUM 131 mmol/L (132-148)
[2016-12-09 08:40] LABS: ALKALINE PHOSPHATASE 97 U/L (38-126); AST/SGOT 27 U/L (17-59); BILIRUBIN,TOTAL 0.5 mg/dL (0.2-1.3); CARBON DIOXIDE 27 mmol/L (22-30); GFR AFRICAN-AMERICAN > 60; TOTAL PROTEIN 6.9 g/dL (6.3-8.3)
[2016-12-09] MEDS: Oxycodone/Acetaminophen 5/325 mg Tab PO PRN ×2 (08:40→17:35)
[2016-12-09 08:41] LABS: ALT/SGPT 43 U/L (21-72); BLOOD UREA NITROGEN 40 mg/dL (9-20); GLUCOSE,RANDOM 161 mg/dL (75-110); PHOSPHOROUS 3.7 mg/dL (2.5-4.5)
[2016-12-09 08:42] LABS: CALCIUM 8.6 mg/dl (8.6-10.4); MAGNESIUM 1.9 mg/dL (1.6-2.3)
[2016-12-09] MEDS: Saccharomyces Boulardi 250 mg Cap PO SCH ×2 (09:57→17:35)
[2016-12-09] MEDS: Fluticasone Nasal 50 mcg/Spray NAS SCH (11:59)
--- NOTE | 2016-12-09 14:06 | CP.PCM.PN ---
Subjective - Date & Time of Evaluation Date of Evaluation: 12/09/16 Time of Evaluation: 07:00 - Subjective Subjective: VASCULAR SURGERY PROGRESS NOTE FOR DR. DENIS Patient seen and examined at bedside. Pt states that he was able to walk to the bathroom on his own a couple times. He states that his foot is able to move better. PT came today and did some exercises with the patient but he got dizzy while standing so was helped back to bed. Objective - Vital Signs/Intake and Output Vital Signs (last 24 hours): Temp Pulse Resp BP Pulse Ox 98.0 F 84 20 95/58 L 97 12/09/16 09:13 12/09/16 09:13 12/09/16 09:13 12/09/16 10:30 12/09/16 09:13 Intake and Output: 12/09/16 12/09/16 06:59 18:59 Intake Total 240 Output Total 200 Balance 40 - Medications Medications: Current Medications Amlodipine Besylate (Norvasc) 10 mg PO DAILY [facility] Last Admin: 12/09/16 09:58 Dose: Not Given Aspirin (Aspirin) 325 mg PO DAILY [facility] Last Admin: 12/09/16 09:57 Dose: 325 mg Clopidogrel Bisulfate (Plavix) 75 mg PO DAILY [facility] Last Admin: 12/09/16 09:56 Dose: 75 mg Dextrose (Dextrose 50% Inj) 0 ml IVP .STAT PRN; Protocol PRN Reason: Hypoglycemia Protocol Last Admin: 11/29/16 07:17 Dose: 50 ml Dextrose (Glutose 15) 0 gm PO .ONCE PRN; Protocol PRN Reason: Hypoglycemia Protocol Docusate Sodium (Colace) 100 mg PO TID [facility] Last Admin: 12/09/16 09:56 Dose: 100 mg Duloxetine HCl (Cymbalta) 40 mg PO HS [facility] Last Admin: 12/08/16 22:06 Dose: 40 mg Famotidine (Pepcid) 20 mg PO BID [facility] Last Admin: 12/09/16 09:57 Dose: 20 mg Ferrous Sulfate (Feosol) 325 mg PO BID [facility] Last Admin: 12/09/16 09:56 Dose: 325 mg Finasteride (Proscar) 5 mg PO DAILY [facility] Last Admin: 12/09/16 09:57 Dose: 5 mg Fluticasone Propionate (Flonase) 2 spr EMMA DAILY [facility] Last Admin: 12/09/16 11:59 Dose: 2 spr Glucagon (Glucagen Diagnostic Kit) 0 mg IM .STAT PRN; Protocol PRN Reason: Hypoglycemia Protocol Heparin Sodium (Porcine) (Heparin) 5,000 units SC Q12 [facility] Last Admin: 12/09/16 09:56 Dose: 5,000 units Vancomycin HCl 1 gm/ Sodium (Chloride) 250 mls @ 166.7 mls/hr IVPB Q24H [facility] Last Admin: 12/09/16 11:24 Dose: 166.7 mls/hr Insulin Detemir (Levemir) 18 unit SC HS [facility] Last Admin: 12/08/16 22:04 Dose: 18 unit Insulin Human Regular (Novolin R) 6 unit SC ACL [facility] Last Admin: 12/09/16 11:58 Dose: 6 unit Insulin Human Regular (Novolin R) 6 unit SC ACD [facility] Last Admin: 12/05/16 17:01 Dose: Not Given Insulin Human Regular (Novolin R) 10 unit SC ACB [facility] Last Admin: 12/09/16 08:27 Dose: 10 unit Insulin Human Regular (Novolin R) 5 unit IV ONCE [facility] Insulin Human Regular (Novolin R) 0 unit SC ACHS [facility] PRN Reason: Protocol Last Admin: 12/09/16 11:58 Dose: 4 unit Ketorolac Tromethamine (Toradol) 15 mg IVP Q6 PRN PRN Reason: Pain, moderate (4-7) Last Admin: 12/09/16 10:07 Dose: 15 mg Lisinopril (Zestril) 10 mg PO DAILY [facility] Last Admin: 12/09/16 09:58 Dose: Not Given Metoprolol Tartrate (Lopressor) 50 mg PO BID [facility] Last Admin: 12/09/16 09:57 Dose: 50 mg Mirtazapine (Remeron) 30 mg PO [facility] Last Admin: 12/09/16 00:20 Dose: 30 mg Ondansetron HCl (Zofran Inj) 4 mg IVP Q6H PRN PRN Reason: Nausea/Vomiting Last Admin: 12/05/16 09:30 Dose: 4 mg Oxycodone/Acetaminophen (Percocet 5/325 Mg Tab) 1 tab PO Q4H PRN PRN Reason: Pain, moderate (4-7) Stop: 12/10/16 22:43 Last Admin: 12/09/16 08:40 Dose: 1 tab Rosuvastatin Calcium (Crestor) 10 mg PO QPM [facility] Last Admin: 12/08/16 17:52 Dose: 10 mg Saccharomyces Boulardii (Florastor) 250 mg PO BID [facility] Last Admin: 12/09/16 09:57 Dose: 250 mg Tamsulosin HCl (Flomax) 0.4 mg PO DAILY [facility] Last Admin: 12/09/16 09:57 Dose: 0.4 mg - Labs Labs: 12/09/16 08:14 12/09/16 08:14 PT 11.5 SECONDS (9.7-12.2) 12/05/16 16:30 INR 1.0 12/05/16 16:30 APTT 31 SECONDS (21-34) 12/05/16 16:30 - Constitutional Appears: Non-toxic, No Acute Distress - Head Exam Head Exam: NORMAL INSPECTION - Eye Exam Eye Exam: EOMI, Normal appearance - Respiratory Exam Respiratory Exam: NORMAL BREATHING PATTERN. absent: Respiratory Distress - Cardiovascular Exam Cardiovascular Exam: +S1, +S2 - GI/Abdominal Exam GI & Abdominal Exam: Soft. absent: Tenderness Additional comments: Right abdomen dressing c/d/i Right groin incision with small opening and small amount purulent drainage - dressing changed - Extremities Exam Additional comments: Right foot with strong PT pulse, foot warm - Neurological Exam Neurological Exam: Alert, Awake - Psychiatric Exam Psychiatric exam: Normal Affect, Normal Mood - Skin Skin Exam: Dry, Normal Color, Warm Assessment and Plan - Assessment and Plan (Free Text) Assessment: 70yo M with ruptured infected right femoral artery pseudo-aneurysm s/p emergent repair of ruptured right femoral artery pseudo-aneurysm with proximal ligatation and removal of femoral artery stent and patch POD#12, and now s/p Right common iliac-popliteal bypass with 8mm PTFE and right femoral embolectomy POD#7 - Afebrile, VSS - Continue Abx per ID - GI: will do elective EGD/colonoscopy as outpatient - Heparin BID, Aspirin and Plavix - Physical therapy - recommend subacute rehab upon discharge - Tolerating regular diet - Discussed case with social work: pt approved for rehab with 1 paper pending still - Discussed plan with Dr. Maura Mckeon PGY-3
[2016-12-09 16:57] VITALS: RESP 20
[2016-12-09] MEDS: Insulin Detemir 100 units/ml Vial (Levemir) SC SCH (22:21)
--- NOTE | 2016-12-10 06:25 | CP.PCM.PN ---
Subjective - Date & Time of Evaluation Date of Evaluation: 12/10/16 Time of Evaluation: 07:50 - Subjective Subjective: PGY-[address] Kris Santana Patient seen and examined at bedside. Patient states that he feels fine today. Patient's appetite continues to wax and wane. Patient is enthusiastic about rehabilitation. Patient denies fever, chills, chest pain, dyspnea, abdominal pain, dysuria. Objective - Vital Signs/Intake and Output Vital Signs (last 24 hours): Temp Pulse Resp BP Pulse Ox 97.9 F 78 20 118/60 98 12/09/16 23:21 12/10/16 04:03 12/09/16 23:21 12/09/16 23:21 12/09/16 23:21 Intake and Output: 12/09/16 12/10/16 18:59 06:59 Output Total 300 Balance -300 - Medications Medications: Current Medications Amlodipine Besylate (Norvasc) 10 mg PO DAILY [facility] Last Admin: 12/09/16 09:58 Dose: Not Given Aspirin (Aspirin) 325 mg PO DAILY [facility] Last Admin: 12/09/16 09:57 Dose: 325 mg Clopidogrel Bisulfate (Plavix) 75 mg PO DAILY [facility] Last Admin: 12/09/16 09:56 Dose: 75 mg Dextrose (Dextrose 50% Inj) 0 ml IVP .STAT PRN; Protocol PRN Reason: Hypoglycemia Protocol Last Admin: 11/29/16 07:17 Dose: 50 ml Dextrose (Glutose 15) 0 gm PO .ONCE PRN; Protocol PRN Reason: Hypoglycemia Protocol Docusate Sodium (Colace) 100 mg PO TID [facility] Last Admin: 12/09/16 17:35 Dose: 100 mg Duloxetine HCl (Cymbalta) 40 mg PO HS [facility] Last Admin: 12/09/16 22:18 Dose: 40 mg Famotidine (Pepcid) 20 mg PO BID [facility] Last Admin: 12/09/16 17:35 Dose: 20 mg Ferrous Sulfate (Feosol) 325 mg PO BID [facility] Last Admin: 12/09/16 17:35 Dose: 325 mg Finasteride (Proscar) 5 mg PO DAILY [facility] Last Admin: 12/09/16 09:57 Dose: 5 mg Fluticasone Propionate (Flonase) 2 spr EMMA DAILY [facility] Last Admin: 12/09/16 11:59 Dose: 2 spr Glucagon (Glucagen Diagnostic Kit) 0 mg IM .STAT PRN; Protocol PRN Reason: Hypoglycemia Protocol Heparin Sodium (Porcine) (Heparin) 5,000 units SC Q12 [facility] Last Admin: 12/09/16 22:19 Dose: 5,000 units Vancomycin HCl 1 gm/ Sodium (Chloride) 250 mls @ 166.7 mls/hr IVPB Q24H [facility] Last Admin: 12/09/16 11:24 Dose: 166.7 mls/hr Insulin Detemir (Levemir) 18 unit SC HS [facility] Last Admin: 12/09/16 22:21 Dose: 18 unit Insulin Human Regular (Novolin R) 6 unit SC ACL [facility] Last Admin: 12/09/16 11:58 Dose: 6 unit Insulin Human Regular (Novolin R) 6 unit SC ACD [facility] Last Admin: 12/05/16 17:01 Dose: Not Given Insulin Human Regular (Novolin R) 10 unit SC ACB [facility] Last Admin: 12/09/16 08:27 Dose: 10 unit Insulin Human Regular (Novolin R) 5 unit IV ONCE [facility] Insulin Human Regular (Novolin R) 0 unit SC ACHS [facility] PRN Reason: Protocol Last Admin: 12/09/16 22:22 Dose: 3 unit Ketorolac Tromethamine (Toradol) 15 mg IVP Q6 PRN PRN Reason: Pain, moderate (4-7) Last Admin: 12/09/16 10:07 Dose: 15 mg Lisinopril (Zestril) 10 mg PO DAILY [facility] Last Admin: 12/09/16 09:58 Dose: Not Given Metoprolol Tartrate (Lopressor) 25 mg PO BID [facility] Last Admin: 12/09/16 17:38 Dose: 25 mg Mirtazapine (Remeron) 30 mg PO HS [facility] Last Admin: 12/09/16 22:18 Dose: 30 mg Ondansetron HCl (Zofran Inj) 4 mg IVP Q6H PRN PRN Reason: Nausea/Vomiting Last Admin: 12/05/16 09:30 Dose: 4 mg Oxycodone/Acetaminophen (Percocet 5/325 Mg Tab) 1 tab PO Q4H PRN PRN Reason: Pain, moderate (4-7) Stop: 12/10/16 22:43 Last Admin: 12/09/16 17:35 Dose: 1 tab Rosuvastatin Calcium (Crestor) 10 mg PO QPM [facility] Last Admin: 12/09/16 17:35 Dose: 10 mg Saccharomyces Boulardii (Florastor) 250 mg PO BID [facility] Last Admin: 12/09/16 17:35 Dose: 250 mg Tamsulosin HCl (Flomax) 0.4 mg PO DAILY [facility] Last Admin: 12/09/16 09:57 Dose: 0.4 mg - Labs Labs: 12/09/16 08:14 12/09/16 08:14 PT 11.5 SECONDS (9.7-12.2) 12/05/16 16:30 INR 1.0 12/05/16 16:30 APTT 31 SECONDS (21-34) 12/05/16 16:30 - Constitutional Appears: No Acute Distress - Head Exam Head Exam: ATRAUMATIC, NORMOCEPHALIC - Eye Exam Eye Exam: EOMI, PERRL - ENT Exam ENT Exam: Mucous Membranes Moist - Respiratory Exam Respiratory Exam: Clear to Ausculation Bilateral, NORMAL BREATHING PATTERN. absent: Rales, Rhonchi, Wheezes - Cardiovascular Exam Cardiovascular Exam: REGULAR RHYTHM, +S1, +S2, Murmur (systolic) - GI/Abdominal Exam GI & Abdominal Exam: Bruit (normal per Dr. Lorenzo given the extent of patient' s LE vascular procedures), Soft, Normal Bowel Sounds. absent: Tenderness - Extremities Exam Extremities Exam: absent: Calf Tenderness, Pedal Edema Additional comments: dressings on right lower extremity c/d/i - Neurological Exam Neurological Exam: Alert, Awake, Oriented x3 - Psychiatric Exam Psychiatric exam: Normal Affect, Normal Mood - Skin Skin Exam: Dry, Warm Assessment and Plan - Assessment and Plan (Free Text) Plan: (1) S/P aneurysm repair Assessment and Plan: -POD # 14 S/P emergent repair of ruptured right femoral artery pseudo-aneurysm with proximal ligatation and removal of femoral artery stent and patch; ruptured pseudo-aneurysm (possibly infected) on 11/27/[address] Lorenzo. - POD #9 s/p Right common iliac-popliteal bypass with 8mm PTFE and right femoral embolectomy Vascular Surgeon, Dr Lorenzo is the Primary on the case Infectious Disease, Dr Herrera, consulted- help appreciated * Contact isolation * Right Groin Wound Culture 11/27/16-->E . Coli and MRSA * Wound culture: 11/27/16-->E. Coli * Blood Culture 11/27/16 shows no growth 5 days X2 * Pain control with Hydromorphone * Vancomycin 750 gm IV Q12h (12/01/16)--->elevated vancomycin trough; held vanco light of trough 12/02; random vancomycin level * Vancomycin resumed per ID on 12/08/16 but dose reduced to daily * Cefepime 1 gm IV Q12H (11/27/16-12/07/16) Status: Acute (2) Elevated alkaline phosphatase level Assessment and Plan: * Resolved * Per chart review, patient with Hx Dilated CBD * On prior admission patient was advised to follow up with outpatient elective cholecystectomy (3) STEVEN (acute kidney injury) Assessment and Plan: * Resolved * Will continue to monitor * vanco held in light of elevated trough on 12/02 * ID resumed vancomycin Status: Acute (4) Hyponatremia * This has resolved * Monitor (5) Acidosis likely Metabolic * Could be secondary to recent surgery vs possible infected right femoral artery catheter which was removed vs compounded by the use of Glipizide for DM 2 * Patient is resumed Vancomycin and Cefepime * Glipizide has been discontinued * This has resolved (6) Abdominal Bruit * Abdominal Aorta U/S ordered on 11/27/16 was discontinued as patient had Abdominal Angiography performed on 10/21/16 and this did NOT show Abdominal Aneurysm. Please see full report for finding of Right Femoral Artery Pseudoaneurysm. (7) History of Diabetes Mellitus 2 Assessment and Plan: * RISS - medium dose * Holding Glipizide because of the acidosis upon admission * Continue home Insulin Regimen: * Levemir 36 Units SC HS--->giving 1/2 dose of home medication to avoid hypoglycemia given patient's intermittent appetite changes (18 units subHS) * Regular Insulin (Home Lispro not carried by our pharmacy) 10 Units SC ACB and 6 Units SC ACL. The 6 units before dinner is held due to intermittent appetite changes. * Continue Accuchecks ACHS * Rosuvastatin 10mg PO HS * Lisinopril 10mg PO daily Status: Chronic (8) History Hypertension Assessment and Plan: * Resumed Lisinopril 10mg PO daily on 11/30/16 * Resumed Amlodipine 10mg PO 1x/day * Resumed Metoprolol tartrate 50 mg PO 2x/day with holding parameters 11/28/16-- lowered dose to 25 BID on 12/09/16 due to orthostatic hypotension during PT in the morning * Continue to monitor q6h Status: Chronic (9) History of anemia Assessment and Plan: * HgB/Hct are stable * Ferrous Sulfate 325mg PO 2x/day Status: Chronic (10) History Chronic pancreatitis Assessment and Plan: * Creon [id number] PO TID AC Meals not carried by our pharmacy therefore equilavent dose of Pacreaze Status: Chronic (11) History of depression Assessment and Plan: * Duloxetine 40mg PO HS * Mirtazapine 30mg PO HS Status: Chronic (12) History of BPH Assessment and Plan: * Finasteride 5mg PO 1x/day * Flomax 0.4 mg PO 1x/day Status: Chronic (13) History of Constipation * Colace 100 mg PO TID * Monitor bowel movement (14) Prophylactic measure Assessment and Plan: * GI: pepcid 20mg PO q12h * DVT: Patient is heparin dvt per vascular surgery; Aspirin 325mg PO daily, Plavix 75mg PO daily * Diet: Heart healthy, diabetic diet * Glucerna protein shakes Case DW Dr. Marisol Alamo PGY-1
[2016-12-10 07:24] LABS: BASO # 0.1 K/uL (0.0-0.2); BASO % 1.1 % (0.0-2.0); EOS # 0.4 K/uL (0.0-0.7); EOS % 5.8 % (0.0-4.0); HEMATOCRIT 28.7 % (35.0-51.0); LYMPH # 0.8 K/uL (1.0-4.3); MEAN CELL VOLUME 88.3 fL (80.0-94.0); MEAN CORPUSCULAR HEMOGLOBIN 29.8 pg (27.0-31.0); MEAN CORPUSCULAR HGB CONC 33.8 g/dL (33.0-37.0); MONO # 0.4 K/uL (0.0-0.8); MONO % 6.8 % (0.0-10.0); RED CELL DISTRIBUTION WIDTH 15.8 % (11.5-14.5); WHITE BLOOD COUNT 6.3 K/uL (4.8-10.8)
[2016-12-10 07:27] LABS: POTASSIUM 4.7 mmol/L (3.6-5.2)
[2016-12-10 07:29] LABS: BILIRUBIN,TOTAL 0.5 mg/dL (0.2-1.3)
[2016-12-10 07:30] LABS: CALCIUM 8.7 mg/dl (8.6-10.4); PHOSPHOROUS 4.3 mg/dL (2.5-4.5)
[2016-12-10] MEDS: (Novolin R) Insulin Human Regular 100 units/ml vial SC SCH ×6 (08:06→22:21)
[2016-12-10] MEDS: LIPASE/PROTEASE/AMYLASE 4,200 U ECC PO SCH ×3 (08:23→18:53)
--- NOTE | 2016-12-10 08:32 | CP.PCM.PN ---
Subjective - Date & Time of Evaluation Date of Evaluation: 12/10/16 Time of Evaluation: 07:00 - Subjective Subjective: VASCULAR SURGERY PROGRESS NOTE FOR DR. DENIS Patient seen and examined at bedside. He is tolerating his diet and denies nausea or vomiting. He is passing flatus, last BM as 2 days ago. He had PT yesterday and is ready to go to rehab. Objective - Vital Signs/Intake and Output Vital Signs (last 24 hours): Temp Pulse Resp BP Pulse Ox 97.7 F 89 20 124/78 98 12/10/16 07:00 12/10/16 07:28 12/10/16 07:00 12/10/16 07:00 12/10/16 07:00 Intake and Output: 12/10/16 12/10/16 06:59 18:59 Output Total 300 Balance -300 - Medications Medications: Current Medications Amlodipine Besylate (Norvasc) 10 mg PO DAILY [facility] Last Admin: 12/09/16 09:58 Dose: Not Given Aspirin (Aspirin) 325 mg PO DAILY [facility] Last Admin: 12/09/16 09:57 Dose: 325 mg Clopidogrel Bisulfate (Plavix) 75 mg PO DAILY [facility] Last Admin: 12/09/16 09:56 Dose: 75 mg Dextrose (Dextrose 50% Inj) 0 ml IVP .STAT PRN; Protocol PRN Reason: Hypoglycemia Protocol Last Admin: 11/29/16 07:17 Dose: 50 ml Dextrose (Glutose 15) 0 gm PO .ONCE PRN; Protocol PRN Reason: Hypoglycemia Protocol Docusate Sodium (Colace) 100 mg PO TID [facility] Last Admin: 12/09/16 17:35 Dose: 100 mg Duloxetine HCl (Cymbalta) 40 mg PO HS [facility] Last Admin: 12/09/16 22:18 Dose: 40 mg Famotidine (Pepcid) 20 mg PO BID [facility] Last Admin: 12/09/16 17:35 Dose: 20 mg Ferrous Sulfate (Feosol) 325 mg PO BID [facility] Last Admin: 12/09/16 17:35 Dose: 325 mg Finasteride (Proscar) 5 mg PO DAILY [facility] Last Admin: 12/09/16 09:57 Dose: 5 mg Fluticasone Propionate (Flonase) 2 spr EMMA DAILY [facility] Last Admin: 12/09/16 11:59 Dose: 2 spr Glucagon (Glucagen Diagnostic Kit) 0 mg IM .STAT PRN; Protocol PRN Reason: Hypoglycemia Protocol Heparin Sodium (Porcine) (Heparin) 5,000 units SC Q12 [facility] Last Admin: 12/09/16 22:19 Dose: 5,000 units Vancomycin HCl 1 gm/ Sodium (Chloride) 250 mls @ 166.7 mls/hr IVPB Q24H [facility] Last Admin: 12/09/16 11:24 Dose: 166.7 mls/hr Insulin Detemir (Levemir) 18 unit SC HS [facility] Last Admin: 12/09/16 22:21 Dose: 18 unit Insulin Human Regular (Novolin R) 6 unit SC ACL [facility] Last Admin: 12/09/16 11:58 Dose: 6 unit Insulin Human Regular (Novolin R) 6 unit SC ACD [facility] Last Admin: 12/05/16 17:01 Dose: Not Given Insulin Human Regular (Novolin R) 10 unit SC ACB [facility] Last Admin: 12/10/16 08:06 Dose: Not Given Insulin Human Regular (Novolin R) 5 unit IV ONCE [facility] Insulin Human Regular (Novolin R) 0 unit SC ACHS [facility] PRN Reason: Protocol Last Admin: 12/10/16 08:06 Dose: Not Given Ketorolac Tromethamine (Toradol) 15 mg IVP Q6 PRN PRN Reason: Pain, moderate (4-7) Last Admin: 12/09/16 10:07 Dose: 15 mg Lisinopril (Zestril) 10 mg PO DAILY [facility] Last Admin: 12/09/16 09:58 Dose: Not Given Metoprolol Tartrate (Lopressor) 25 mg PO BID [facility] Last Admin: 12/09/16 17:38 Dose: 25 mg Mirtazapine (Remeron) 30 mg PO [facility] Last Admin: 12/09/16 22:18 Dose: 30 mg Ondansetron HCl (Zofran Inj) 4 mg IVP Q6H PRN PRN Reason: Nausea/Vomiting Last Admin: 12/05/16 09:30 Dose: 4 mg Oxycodone/Acetaminophen (Percocet 5/325 Mg Tab) 1 tab PO Q4H PRN PRN Reason: Pain, moderate (4-7) Stop: 12/10/16 22:43 Last Admin: 12/09/16 17:35 Dose: 1 tab Rosuvastatin Calcium (Crestor) 10 mg PO QPM [facility] Last Admin: 12/09/16 17:35 Dose: 10 mg Saccharomyces Boulardii (Florastor) 250 mg PO BID [facility] Last Admin: 12/09/16 17:35 Dose: 250 mg Tamsulosin HCl (Flomax) 0.4 mg PO DAILY [facility] Last Admin: 12/09/16 09:57 Dose: 0.4 mg - Labs Labs: 12/10/16 07:07 12/10/16 07:07 PT 11.5 SECONDS (9.7-12.2) 12/05/16 16:30 INR 1.0 12/05/16 16:30 APTT 31 SECONDS (21-34) 12/05/16 16:30 - Constitutional Appears: Non-toxic, No Acute Distress - Head Exam Head Exam: ATRAUMATIC, NORMAL INSPECTION - Eye Exam Eye Exam: EOMI, Normal appearance - Respiratory Exam Respiratory Exam: NORMAL BREATHING PATTERN. absent: Respiratory Distress - Cardiovascular Exam Cardiovascular Exam: +S1, +S2 - GI/Abdominal Exam GI & Abdominal Exam: Soft. absent: Distended, Firm, Guarding, Rigid, Tenderness Additional comments: Right lower abdomen dressing clean/dry/intact Right groin dressing with some drainage - changed - Extremities Exam Additional comments: Right foot with strong PT pulse, foot warm - Neurological Exam Neurological Exam: Alert, Awake, Oriented x3 - Psychiatric Exam Psychiatric exam: Normal Affect, Normal Mood - Skin Skin Exam: Dry, Normal Color, Warm Assessment and Plan - Assessment and Plan (Free Text) Assessment: 70yo M with ruptured infected right femoral artery pseudo-aneurysm s/p emergent repair of ruptured right femoral artery pseudo-aneurysm with proximal ligatation and removal of femoral artery stent and patch POD#13, and now s/p Right common iliac-popliteal bypass with 8mm PTFE and right femoral embolectomy POD#8 - Afebrile, VSS - Continue Abx per ID - GI: will do elective EGD/colonoscopy as outpatient - Heparin BID, Aspirin and Plavix - Continue Physical therapy - recommended subacute rehab upon discharge - Patient shown exercises for foot to do while in bed as well - Tolerating regular diet - PICC ordered for outpatient Abx - Discussed plan with Dr. Maura Mckeon PGY-3
[2016-12-10] MEDS: Oxycodone/Acetaminophen 5/325 mg Tab PO PRN ×3 (09:21→22:23)
[2016-12-10] MEDS: Saccharomyces Boulardi 250 mg Cap PO SCH ×2 (09:24→18:55)
--- NOTE | 2016-12-10 11:23 | RAD ---
HISTORY: verify right PICC COMPARISON: Portable chest 10/21/2016. FINDINGS: LUNGS: No acute infiltrate is appreciated bilaterally. A small nodule is questioned at the right apex inferiorly and a follow-up chest is advised for additional characterization. PLEURA: No significant pleural effusion identified, no pneumothorax apparent. CARDIOVASCULAR: A right upper extremity PICC has been inserted terminating at the distal superior vena cava. Cardiomediastinal silhouette is otherwise unremarkable. No pulmonary vascular derangement identified. OSSEOUS STRUCTURES: No significant abnormalities. VISUALIZED UPPER ABDOMEN: Normal. OTHER FINDINGS: None. IMPRESSION: Adequate PICC placement noted. No acute cardiopulmonary findings grossly evident. Note is made of a small nodular density is seen at the right apex inferiorly. Follow-up chest CT is advised
[2016-12-10] MEDS: Fluticasone Nasal 50 mcg/Spray NAS SCH (11:57)
--- NOTE | 2016-12-10 17:37 | CP.PCM.PN ---
Subjective - Date & Time of Evaluation Date of Evaluation: 12/10/16 Time of Evaluation: 08:00 - Subjective Subjective: awake alert ready for rehab Objective - Vital Signs/Intake and Output Vital Signs (last 24 hours): Temp Pulse Resp BP Pulse Ox 97.8 F 77 20 149/66 98 12/10/16 15:14 12/10/16 15:14 12/10/16 15:14 12/10/16 15:14 12/10/16 15:14 Intake and Output: 12/10/16 12/10/16 06:59 18:59 Intake Total 700 Output Total 300 800 Balance -300 -100 - Medications Medications: Current Medications Amlodipine Besylate (Norvasc) 10 mg PO DAILY [facility] Last Admin: 12/10/16 09:23 Dose: 10 mg Aspirin (Aspirin) 325 mg PO DAILY [facility] Last Admin: 12/10/16 09:23 Dose: 325 mg Clopidogrel Bisulfate (Plavix) 75 mg PO DAILY [facility] Last Admin: 12/10/16 09:24 Dose: 75 mg Dextrose (Dextrose 50% Inj) 0 ml IVP .STAT PRN; Protocol PRN Reason: Hypoglycemia Protocol Last Admin: 11/29/16 07:17 Dose: 50 ml Dextrose (Glutose 15) 0 gm PO .ONCE PRN; Protocol PRN Reason: Hypoglycemia Protocol Docusate Sodium (Colace) 100 mg PO TID [facility] Last Admin: 12/10/16 13:00 Dose: 100 mg Duloxetine HCl (Cymbalta) 40 mg PO HS [facility] Last Admin: 12/09/16 22:18 Dose: 40 mg Famotidine (Pepcid) 20 mg PO BID [facility] Last Admin: 12/10/16 09:24 Dose: 20 mg Ferrous Sulfate (Feosol) 325 mg PO BID [facility] Last Admin: 12/10/16 09:23 Dose: 325 mg Finasteride (Proscar) 5 mg PO DAILY [facility] Last Admin: 12/10/16 09:24 Dose: 5 mg Fluticasone Propionate (Flonase) 2 spr EMMA DAILY [facility] Last Admin: 12/10/16 11:57 Dose: Not Given Glucagon (Glucagen Diagnostic Kit) 0 mg IM .STAT PRN; Protocol PRN Reason: Hypoglycemia Protocol Heparin Sodium (Porcine) (Heparin) 5,000 units SC Q12H [facility] Vancomycin HCl 1 gm/ Sodium (Chloride) 250 mls @ 166.7 mls/hr IVPB Q24H [facility] Last Admin: 12/10/16 12:05 Dose: 166.7 mls/hr Insulin Detemir (Levemir) 18 unit SC HS [facility] Last Admin: 12/09/16 22:21 Dose: 18 unit Insulin Human Regular (Novolin R) 6 unit SC ACL [facility] Last Admin: 12/10/16 12:11 Dose: 6 unit Insulin Human Regular (Novolin R) 6 unit SC ACD [facility] Last Admin: 12/05/16 17:01 Dose: Not Given Insulin Human Regular (Novolin R) 10 unit SC ACB [facility] Last Admin: 12/10/16 08:06 Dose: Not Given Insulin Human Regular (Novolin R) 5 unit IV ONCE [facility] Insulin Human Regular (Novolin R) 0 unit SC ACHS [facility] PRN Reason: Protocol Last Admin: 12/10/16 12:11 Dose: 8 unit Lisinopril (Zestril) 10 mg PO DAILY [facility] Last Admin: 12/10/16 09:23 Dose: 10 mg Metoprolol Tartrate (Lopressor) 25 mg PO BID [facility] Last Admin: 12/10/16 09:24 Dose: 25 mg Mirtazapine (Remeron) 30 mg PO [facility] Last Admin: 12/09/16 22:18 Dose: 30 mg Ondansetron HCl (Zofran Inj) 4 mg IVP Q6H PRN PRN Reason: Nausea/Vomiting Last Admin: 12/05/16 09:30 Dose: 4 mg Oxycodone/Acetaminophen (Percocet 5/325 Mg Tab) 1 tab PO Q4H PRN PRN Reason: Pain, moderate (4-7) Stop: 12/10/16 22:43 Last Admin: 12/10/16 12:58 Dose: 1 tab Rosuvastatin Calcium (Crestor) 10 mg PO QPM [facility] Last Admin: 12/09/16 17:35 Dose: 10 mg Saccharomyces Boulardii (Florastor) 250 mg PO BID [facility] Last Admin: 12/10/16 09:24 Dose: 250 mg Tamsulosin HCl (Flomax) 0.4 mg PO DAILY [facility] Last Admin: 12/10/16 09:24 Dose: 0.4 mg - Labs Labs: 12/10/16 07:07 12/10/16 07:07 PT 11.5 SECONDS (9.7-12.2) 12/05/16 16:30 INR 1.0 12/05/16 16:30 APTT 31 SECONDS (21-34) 12/05/16 16:30 - Constitutional Appears: Non-toxic, Chronically Ill - Head Exam Head Exam: NORMOCEPHALIC - Eye Exam Eye Exam: PERRL. absent: Scleral icterus - ENT Exam ENT Exam: Mucous Membranes Dry - Neck Exam Neck Exam: absent: Lymphadenopathy - Respiratory Exam Respiratory Exam: Decreased Breath Sounds - Cardiovascular Exam Cardiovascular Exam: REGULAR RHYTHM - GI/Abdominal Exam GI & Abdominal Exam: Distended - Rectal Exam Rectal Exam: Deferred - Exam Exam: NORMAL INSPECTION - Extremities Exam Extremities Exam: absent: Pedal Edema - Back Exam Back Exam: absent: CVA tenderness (L), CVA tenderness (R) - Neurological Exam Neurological Exam: Alert, Awake, Oriented x3 Assessment and Plan (1) Femoral artery aneurysm, right Status: Acute (2) H/O ruptured arterial aneurysm Status: Resolved (3) S/P aneurysm repair Status: Acute - Assessment and Plan (Free Text) Assessment: 70yo M with ruptured infected right femoral artery pseudo-aneurysm s/p emergent repair of ruptured right femoral artery pseudo-aneurysm with proximal ligatation and removal of femoral artery stent and patch POD#13, and now s/p Right common iliac-popliteal bypass with 8mm PTFE and right femoral embolectomy POD#8 cont iv antibiotics min 7 days more then re-assess for healing, signs of infection Needs surgical follow up
[2016-12-10] MEDS: ceFAZolin 1 gm FROZEN Premix 1 GM/50 ML ML IVPB SCH (19:01)
[2016-12-10] MEDS: Insulin Detemir 100 units/ml Vial (Levemir) SC SCH (22:15)
[2016-12-11] MEDS: ceFAZolin 1 gm FROZEN Premix 1 GM/50 ML ML IVPB SCH ×2 (02:40→11:12)
--- NOTE | 2016-12-11 05:13 | CP.PCM.PN ---
Subjective - Date & Time of Evaluation Date of Evaluation: 12/11/16 Time of Evaluation: 01:35 - Subjective Subjective: Code Star was called for this patient at 1:33am. Patient was seen and examined in no acute distress. Code star was called due to nursing staff finding patient sitting on floor. 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 He reports he did not have any symptoms of dizziness, chest pain, palpitations, loss of balance. He reports he purposely sat down on the floor. 12 point review of systems otherwise negative. Objective - Vital Signs/Intake and Output Vital Signs (last 24 hours): Temp Pulse Resp BP Pulse Ox 97.9 F 71 20 174/84 H 98 12/10/16 23:30 12/10/16 23:30 12/10/16 23:30 12/10/16 23:30 12/10/16 23:30 Intake and Output: 12/10/16 12/11/16 18:59 06:59 Intake Total 700 Output Total 800 Balance -100 - Medications Medications: Current Medications Amlodipine Besylate (Norvasc) 10 mg PO DAILY [facility] Last Admin: 12/10/16 09:23 Dose: 10 mg Aspirin (Aspirin) 325 mg PO DAILY [facility] Last Admin: 12/10/16 09:23 Dose: 325 mg Clopidogrel Bisulfate (Plavix) 75 mg PO DAILY [facility] Last Admin: 12/10/16 09:24 Dose: 75 mg Dextrose (Dextrose 50% Inj) 0 ml IVP .STAT PRN; Protocol PRN Reason: Hypoglycemia Protocol Last Admin: 11/29/16 07:17 Dose: 50 ml Dextrose (Glutose 15) 0 gm PO .ONCE PRN; Protocol PRN Reason: Hypoglycemia Protocol Docusate Sodium (Colace) 100 mg PO TID [facility] Last Admin: 12/10/16 18:50 Dose: 100 mg Duloxetine HCl (Cymbalta) 40 mg PO HS [facility] Last Admin: 12/10/16 22:15 Dose: 40 mg Famotidine (Pepcid) 20 mg PO BID [facility] Last Admin: 12/10/16 18:50 Dose: 20 mg Ferrous Sulfate (Feosol) 325 mg PO BID [facility] Last Admin: 12/10/16 18:50 Dose: 325 mg Finasteride (Proscar) 5 mg PO DAILY [facility] Last Admin: 12/10/16 09:24 Dose: 5 mg Fluticasone Propionate (Flonase) 2 spr EMMA DAILY [facility] Last Admin: 12/10/16 11:57 Dose: Not Given Glucagon (Glucagen Diagnostic Kit) 0 mg IM .STAT PRN; Protocol PRN Reason: Hypoglycemia Protocol Heparin Sodium (Porcine) (Heparin) 5,000 units SC Q12H [facility] Last Admin: 12/10/16 18:59 Dose: Not Given Vancomycin HCl 1 gm/ Sodium (Chloride) 250 mls @ 166.7 mls/hr IVPB Q24H [facility] Last Admin: 12/10/16 12:05 Dose: 166.7 mls/hr Cefazolin Sodium (Ancef) 1 gm in 50 mls @ 100 mls/hr IVPB Q8H [facility] Last Admin: 12/11/16 02:40 Dose: 100 mls/hr Insulin Detemir (Levemir) 18 unit SC HS [facility] Last Admin: 12/10/16 22:15 Dose: 18 unit Insulin Human Regular (Novolin R) 6 unit SC ACL [facility] Last Admin: 12/10/16 12:11 Dose: 6 unit Insulin Human Regular (Novolin R) 6 unit SC ACD [facility] Last Admin: 12/05/16 17:01 Dose: Not Given Insulin Human Regular (Novolin R) 10 unit SC ACB [facility] Last Admin: 12/10/16 08:06 Dose: Not Given Insulin Human Regular (Novolin R) 5 unit IV ONCE [facility] Insulin Human Regular (Novolin R) 0 unit SC ACHS [facility] PRN Reason: Protocol Last Admin: 12/10/16 22:21 Dose: Not Given Lisinopril (Zestril) 10 mg PO DAILY [facility] Last Admin: 12/10/16 09:23 Dose: 10 mg Metoprolol Tartrate (Lopressor) 25 mg PO BID [facility] Last Admin: 12/10/16 18:51 Dose: 25 mg Mirtazapine (Remeron) 30 mg PO HS [facility] Last Admin: 12/10/16 22:29 Dose: 30 mg Ondansetron HCl (Zofran Inj) 4 mg IVP Q6H PRN PRN Reason: Nausea/Vomiting Last Admin: 12/05/16 09:30 Dose: 4 mg Rosuvastatin Calcium (Crestor) 10 mg PO QPM [facility] Last Admin: 12/10/16 18:50 Dose: 10 mg Saccharomyces Boulardii (Florastor) 250 mg PO BID [facility] Last Admin: 12/10/16 18:55 Dose: 250 mg Tamsulosin HCl (Flomax) 0.4 mg PO DAILY [facility] Last Admin: 12/10/16 09:24 Dose: 0.4 mg - Labs Labs: 12/10/16 07:07 12/10/16 07:07 PT 11.5 SECONDS (9.7-12.2) 12/05/16 16:30 INR 1.0 12/05/16 16:30 APTT 31 SECONDS (21-34) 12/05/16 16:30
--- NOTE | 2016-12-11 07:05 | CP.PCM.PN ---
Addendum entered and electronically signed by Wyatt Alamo DO 12/11/16 10:51: We also recommend accuchecks qACHS Original Note: <Wyatt Alamo - Last Filed: 12/11/16 10:24> Subjective - Date & Time of Evaluation Date of Evaluation: 12/11/16 Time of Evaluation: 07:30 - Subjective Subjective: PGY-1 Medicine Progress Note Patient seen and examined at bedside. Patient reports continued right leg pain. Patient's appetite is still inconsistent. Patient is for transfer to rehab later today. Denies fever, chills, chest pain, dyspnea, abdominal pain, dysuria. Objective - Vital Signs/Intake and Output Vital Signs (last 24 hours): Temp Pulse Resp BP Pulse Ox 97.9 F 71 20 174/84 H 98 12/10/16 23:30 12/10/16 23:30 12/10/16 23:30 12/10/16 23:30 12/10/16 23:30 Intake and Output: 12/11/16 12/11/16 06:59 18:59 Output Total 700 Balance -700 - Medications Medications: Current Medications Amlodipine Besylate (Norvasc) 10 mg PO DAILY [facility] Last Admin: 12/10/16 09:23 Dose: 10 mg Aspirin (Aspirin) 325 mg PO DAILY [facility] Last Admin: 12/10/16 09:23 Dose: 325 mg Clopidogrel Bisulfate (Plavix) 75 mg PO DAILY [facility] Last Admin: 12/10/16 09:24 Dose: 75 mg Dextrose (Dextrose 50% Inj) 0 ml IVP .STAT PRN; Protocol PRN Reason: Hypoglycemia Protocol Last Admin: 11/29/16 07:17 Dose: 50 ml Dextrose (Glutose 15) 0 gm PO .ONCE PRN; Protocol PRN Reason: Hypoglycemia Protocol Docusate Sodium (Colace) 100 mg PO TID [facility] Last Admin: 12/10/16 18:50 Dose: 100 mg Duloxetine HCl (Cymbalta) 40 mg PO HS [facility] Last Admin: 12/10/16 22:15 Dose: 40 mg Famotidine (Pepcid) 20 mg PO BID [facility] Last Admin: 12/10/16 18:50 Dose: 20 mg Ferrous Sulfate (Feosol) 325 mg PO BID [facility] Last Admin: 12/10/16 18:50 Dose: 325 mg Finasteride (Proscar) 5 mg PO DAILY [facility] Last Admin: 12/10/16 09:24 Dose: 5 mg Fluticasone Propionate (Flonase) 2 spr EMMA DAILY [facility] Last Admin: 12/10/16 11:57 Dose: Not Given Glucagon (Glucagen Diagnostic Kit) 0 mg IM .STAT PRN; Protocol PRN Reason: Hypoglycemia Protocol Heparin Sodium (Porcine) (Heparin) 5,000 units SC Q12H [facility] Last Admin: 12/11/16 06:50 Dose: Not Given Vancomycin HCl 1 gm/ Sodium (Chloride) 250 mls @ 166.7 mls/hr IVPB Q24H [facility] Last Admin: 12/10/16 12:05 Dose: 166.7 mls/hr Cefazolin Sodium (Ancef) 1 gm in 50 mls @ 100 mls/hr IVPB Q8H [facility] Last Admin: 12/11/16 02:40 Dose: 100 mls/hr Insulin Detemir (Levemir) 18 unit SC HS [facility] Last Admin: 12/10/16 22:15 Dose: 18 unit Insulin Human Regular (Novolin R) 6 unit SC ACL [facility] Last Admin: 12/10/16 12:11 Dose: 6 unit Insulin Human Regular (Novolin R) 6 unit SC ACD [facility] Last Admin: 12/05/16 17:01 Dose: Not Given Insulin Human Regular (Novolin R) 10 unit SC ACB [facility] Last Admin: 12/10/16 08:06 Dose: Not Given Insulin Human Regular (Novolin R) 5 unit IV ONCE [facility] Insulin Human Regular (Novolin R) 0 unit SC ACHS [facility] PRN Reason: Protocol Last Admin: 12/10/16 22:21 Dose: Not Given Lisinopril (Zestril) 10 mg PO DAILY [facility] Last Admin: 12/10/16 09:23 Dose: 10 mg Metoprolol Tartrate (Lopressor) 25 mg PO BID [facility] Last Admin: 12/10/16 18:51 Dose: 25 mg Mirtazapine (Remeron) 30 mg PO HS [facility] Last Admin: 12/10/16 22:29 Dose: 30 mg Ondansetron HCl (Zofran Inj) 4 mg IVP Q6H PRN PRN Reason: Nausea/Vomiting Last Admin: 12/05/16 09:30 Dose: 4 mg Rosuvastatin Calcium (Crestor) 10 mg PO QPM [facility] Last Admin: 12/10/16 18:50 Dose: 10 mg Saccharomyces Boulardii (Florastor) 250 mg PO BID [facility] Last Admin: 12/10/16 18:55 Dose: 250 mg Tamsulosin HCl (Flomax) 0.4 mg PO DAILY [facility] Last Admin: 12/10/16 09:24 Dose: 0.4 mg - Labs Labs: 12/10/16 07:07 12/10/16 07:07 PT 11.5 SECONDS (9.7-12.2) 12/05/16 16:30 INR 1.0 12/05/16 16:30 APTT 31 SECONDS (21-34) 12/05/16 16:30 - Constitutional Appears: No Acute Distress - Head Exam Head Exam: ATRAUMATIC, NORMOCEPHALIC - Eye Exam Eye Exam: EOMI, PERRL - ENT Exam ENT Exam: Mucous Membranes Moist - Respiratory Exam Respiratory Exam: Clear to Ausculation Bilateral, NORMAL BREATHING PATTERN. absent: Rales, Rhonchi, Wheezes - Cardiovascular Exam Cardiovascular Exam: REGULAR RHYTHM, +S1, +S2, Murmur (systolic) - GI/Abdominal Exam GI & Abdominal Exam: Bruit (normal per Dr. Lorenzo given the extent of patient' s LE vascular procedures), Soft, Normal Bowel Sounds. 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 - POD #9 s/p Right common iliac-popliteal bypass with 8mm PTFE and right femoral embolectomy Vascular Surgeon, Dr Lorenzo is the Primary on the case Infectious Disease, Dr Herrera, consulted- help appreciated * Contact isolation * Right Groin Wound Culture 11/27/16-->E . Coli and MRSA * Wound culture: 11/27/16-->E. Coli * Blood Culture 11/27/16 shows no growth 5 days X2 * Pain control with Hydromorphone * Vancomycin 750 gm IV Q12h (12/01/16)--->elevated vancomycin trough; held vanco light of trough 12/02; random vancomycin level * Vancomycin resumed per ID on 12/08/16 but dose reduced to daily * Cefepime 1 gm IV Q12H (11/27/16-12/07/16) Status: Acute (2) Elevated alkaline phosphatase level Assessment and Plan: * Resolved * Per chart review, patient with Hx Dilated CBD * On prior admission patient was advised to follow up with outpatient elective cholecystectomy (3) STEVEN (acute kidney injury) Assessment and Plan: * Resolved * Will continue to monitor * vanco held in light of elevated trough on 12/02 * ID resumed vancomycin Status: Acute (4) Hyponatremia * This has resolved * Monitor (5) Acidosis likely Metabolic * Could be secondary to recent surgery vs possible infected right femoral artery catheter which was removed vs compounded by the use of Glipizide for DM 2 * Patient is resumed Vancomycin and Cefepime * Glipizide has been discontinued * This has resolved (6) Abdominal Bruit * Abdominal Aorta U/S ordered on 11/27/16 was discontinued as patient had Abdominal Angiography performed on 10/21/16 and this did NOT show Abdominal Aneurysm. Please see full report for finding of Right Femoral Artery Pseudoaneurysm. (7) History of Diabetes Mellitus 2 Assessment and Plan: * RISS - medium dose * Holding Glipizide because of the acidosis upon admission * Continue home Insulin Regimen: * Levemir 36 Units SC HS--->giving 1/2 dose of home medication to avoid hypoglycemia given patient's intermittent appetite changes (18 units subHS) * Regular Insulin (Home Lispro not carried by our pharmacy) 10 Units SC ACB and 6 Units SC ACL. The 6 units before dinner is held due to intermittent appetite changes. * Continue Accuchecks ACHS * Rosuvastatin 10mg PO HS * Lisinopril 10mg PO daily Status: Chronic (8) History Hypertension Assessment and Plan: * Resumed Lisinopril 10mg PO daily on 11/30/16 * Resumed Amlodipine 10mg PO 1x/day * Resumed Metoprolol tartrate 50 mg PO 2x/day with holding parameters 11/28/16-- lowered dose to 25 BID on 12/09/16 due to orthostatic hypotension during PT in the morning * Continue to monitor q6h Status: Chronic (9) History of anemia Assessment and Plan: * HgB/Hct are stable * Ferrous Sulfate 325mg PO 2x/day Status: Chronic (10) History Chronic pancreatitis Assessment and Plan: * Creon [id number] PO TID AC Meals not carried by our pharmacy therefore equilavent dose of Pacreaze Status: Chronic (11) History of depression Assessment and Plan: * Duloxetine 40mg PO HS * Mirtazapine 30mg PO HS Status: Chronic (12) History of BPH Assessment and Plan: * Finasteride 5mg PO 1x/day * Flomax 0.4 mg PO 1x/day Status: Chronic (13) History of Constipation * Colace 100 mg PO TID * Monitor bowel movement (14) Prophylactic measure Assessment and Plan: * GI: pepcid 20mg PO q12h * DVT: Patient is heparin dvt per vascular surgery; Aspirin 325mg PO daily, Plavix 75mg PO daily * Diet: Heart healthy, diabetic diet * [facility] Medicine Team will be signing off on this patient. Discharge Medications to rehab are as follows: * Per ID Dr. Herrera, Vancomycin 1 gm IV daily through the right arm PICC line. Last dose will be on 12/17/16 * Florastor 250 mg PO BID--Do not give within 2 hours of antibiotics * ASA 325 mg PO daily * Plavix 75 mg PO daily * Colace 100 mg PO TID * Cymbalta 40 mg PO HS * Mirtazipine 30 mg PO HS * Ferous Sulfate 325 mg PO BID * Levemir 18 units SC HS * Novolin R 10 units SC before breakfast * Novolin R 6 units SC before lunch * Lisinopril 10 mg PO daily * Norvasc 10 mg PO daily * Lopressor 25 mg PO BID * Crestor 10 mg QPM * Finasteride 5 mg PO daily * Tamsulosin 0.4 mg PO daily * Lipase/Protease/Amylase 33,600 units TID with meals * Pepcid 20 mg PO BID * Zofran 4 mg IV Q6H prn for nausea/vomiting * Anticoagulation as per Karen * Percocet 5/325 mg PO 1 tab Q6H prn for moderate pain * Percocet 5/325 mg PO 2 tabs Q6H prn for severe pain * Miralax 17 gm PO once daily if no bowel movement in [address] Marisol Alamo PGY-1 <Kris Santana - Last Filed: 12/11/16 18:47> Objective - Vital Signs/Intake and Output Vital Signs (last 24 hours): Temp Pulse Resp BP Pulse Ox 97 F L 70 20 110/68 98 12/11/16 15:00 12/11/16 15:00 12/11/16 15:00 12/11/16 15:00 12/11/16 15:00 Intake and Output: 12/11/16 12/11/16 06:59 18:59 Intake Total 300 Output Total 700 650 Balance -700 -350 - Medications Medications: Current Medications Amlodipine Besylate (Norvasc) 10 mg PO DAILY [facility] Last Admin: 12/11/16 10:55 Dose: 10 mg Aspirin (Aspirin) 325 mg PO DAILY [facility] Last Admin: 12/11/16 10:51 Dose: 325 mg Clopidogrel Bisulfate (Plavix) 75 mg PO DAILY [facility] Last Admin: 12/11/16 10:56 Dose: 75 mg Dextrose (Dextrose 50% Inj) 0 ml IVP .STAT PRN; Protocol PRN Reason: Hypoglycemia Protocol Last Admin: 11/29/16 07:17 Dose: 50 ml Dextrose (Glutose 15) 0 gm PO .ONCE PRN; Protocol PRN Reason: Hypoglycemia Protocol Docusate Sodium (Colace) 100 mg PO TID [facility] Last Admin: 12/11/16 13:24 Dose: 100 mg Duloxetine HCl (Cymbalta) 40 mg PO HS [facility] Last Admin: 12/10/16 22:15 Dose: 40 mg Famotidine (Pepcid) 20 mg PO BID [facility] Last Admin: 12/11/16 10:56 Dose: 20 mg Ferrous Sulfate (Feosol) 325 mg PO BID [facility] Last Admin: 12/11/16 10:52 Dose: 325 mg Finasteride (Proscar) 5 mg PO DAILY [facility] Last Admin: 12/11/16 10:57 Dose: 5 mg Fluticasone Propionate (Flonase) 2 spr EMMA DAILY [facility] Last Admin: 12/11/16 10:53 Dose: Not Given Glucagon (Glucagen Diagnostic Kit) 0 mg IM .STAT PRN; Protocol PRN Reason: Hypoglycemia Protocol Heparin Sodium (Porcine) (Heparin) 5,000 units SC Q12H [facility] Last Admin: 12/11/16 06:50 Dose: Not Given Vancomycin HCl 1 gm/ Sodium (Chloride) 250 mls @ 166.7 mls/hr IVPB Q24H [facility] Last Admin: 12/11/16 12:21 Dose: 166.7 mls/hr Cefazolin Sodium (Ancef) 1 gm in 50 mls @ 100 mls/hr IVPB Q8H [facility] Last Admin: 12/11/16 11:12 Dose: 100 mls/hr Insulin Detemir (Levemir) 18 unit SC HS [facility] Last Admin: 12/10/16 22:15 Dose: 18 unit Insulin Human Regular (Novolin R) 6 unit SC ACL [facility] Last Admin: 12/11/16 12:30 Dose: 6 unit Insulin Human Regular (Novolin R) 6 unit SC ACD [facility] Last Admin: 12/05/16 17:01 Dose: Not Given Insulin Human Regular (Novolin R) 10 unit SC ACB [facility] Last Admin: 12/11/16 08:32 Dose: 10 unit Insulin Human Regular (Novolin R) 5 unit IV ONCE [facility] Insulin Human Regular (Novolin R) 0 unit SC ACHS [facility] PRN Reason: Protocol Last Admin: 12/11/16 12:30 Dose: 4 unit Lisinopril (Zestril) 10 mg PO DAILY [facility] Last Admin: 12/11/16 10:57 Dose: 10 mg Metoprolol Tartrate (Lopressor) 25 mg PO BID [facility] Last Admin: 12/11/16 10:54 Dose: 25 mg Mirtazapine (Remeron) 30 mg PO [facility] Last Admin: 12/10/16 22:29 Dose: 30 mg Ondansetron HCl (Zofran Inj) 4 mg IVP Q6H PRN PRN Reason: Nausea/Vomiting Last Admin: 12/05/16 09:30 Dose: 4 mg Oxycodone/Acetaminophen (Percocet 5/325 Mg Tab) 1 tab PO Q6H PRN PRN Reason: Pain, moderate (4-7) Stop: 12/14/16 10:39 Last Admin: 12/11/16 11:13 Dose: 1 tab Oxycodone/Acetaminophen (Percocet 5/325 Mg Tab) 2 tab PO Q6H PRN PRN Reason: Pain, severe (8-10) Stop: 12/14/16 10:39 Rosuvastatin Calcium (Crestor) 10 mg PO QPM [facility] Last Admin: 12/10/16 18:50 Dose: 10 mg Saccharomyces Boulardii (Florastor) 250 mg PO BID [facility] Last Admin: 12/11/16 10:53 Dose: 250 mg Tamsulosin HCl (Flomax) 0.4 mg PO DAILY [facility] Last Admin: 12/11/16 10:52 Dose: 0.4 mg - Labs Labs: 12/11/16 08:41 12/11/16 08:41 PT 11.5 SECONDS (9.7-12.2) 12/05/16 16:30 INR 1.0 12/05/16 16:30 APTT 31 SECONDS (21-34) 12/05/16 16:30 Attending/Attestation - Attestation I have personally seen and examined this patient.: Yes I have fully participated in the care of the patient.: Yes I have reviewed all pertinent clinical information, including history, physical exam and plan: Yes Notes (Text): 12/11/16 18:46 Patient was seen and examined shortly after resident. Exam, assessment and plan were thoroughly gone over with the resident. Kris Santana D.O.
[2016-12-11] MEDS: LIPASE/PROTEASE/AMYLASE 4,200 U ECC PO SCH ×2 (07:45→12:20)
[2016-12-11] MEDS: (Novolin R) Insulin Human Regular 100 units/ml vial SC SCH ×4 (08:25→12:30)
[2016-12-11] MEDS ORDERED: POLYETHYLENE GLYCOL 3350 17 GM/Dose PACKET PO ONE ×2 (08:30→13:34)
[2016-12-11 08:46] LABS: BASO # 0.1 K/uL (0.0-0.2); BASO % 0.9 % (0.0-2.0); EOS # 0.4 K/uL (0.0-0.7); EOS % 5.4 % (0.0-4.0); HEMATOCRIT 26.9 % (35.0-51.0); LYMPH # 0.8 K/uL (1.0-4.3); LYMPH % 11.6 % (20.0-40.0); MEAN CELL VOLUME 89.2 fL (80.0-94.0); MEAN CORPUSCULAR HEMOGLOBIN 30.3 pg (27.0-31.0); MONO # 0.6 K/uL (0.0-0.8); MONO % 7.9 % (0.0-10.0); RED CELL DISTRIBUTION WIDTH 16.3 % (11.5-14.5)
[2016-12-11 09:09] LABS: BILIRUBIN,TOTAL 0.5 mg/dL (0.2-1.3)
[2016-12-11 09:10] LABS: CALCIUM 8.6 mg/dl (8.6-10.4); MAGNESIUM 1.9 mg/dL (1.6-2.3); PHOSPHOROUS 4.2 mg/dL (2.5-4.5)
[2016-12-11] MEDS ORDERED: Oxycodone/Acetaminophen 5/325 mg Tab PO PRN ×2 (10:38)
[2016-12-11] MEDS: Saccharomyces Boulardi 250 mg Cap PO SCH (10:53)
[2016-12-11] MEDS: Fluticasone Nasal 50 mcg/Spray NAS SCH (10:53)
--- NOTE | 2016-12-11 11:10 | CP.PCM.PN ---
Subjective - Date & Time of Evaluation Date of Evaluation: 12/11/16 Time of Evaluation: 11:10 - Subjective Subjective: PT HAS BEEN CLEARED FOR D/C TODAY BY MEDICAL TEAM AND SURGICAL TEAM. DISCUSSED WITH DR. Carey CLAYTON AND D/C MED ORDERS GIVEN. DISCUSSED WITH DR. DENIS AND PT TO F/U IN OFFICE IN 1 WEEK. FOR D/C TO [facility] UNDER THE SERVICE OF DR. WALSH, WHOM I HAVE ALREADY SPOKEN TO AND WHO ACCEPTS THE PT UNDER HIS CARE. PT TO BE D/C WITH PICC LINE IN PLACE FOR 7 MORE DAYS OF IV ANCEF AND VANCO PER DR. LEVI RECTatianna. NO FURTHER ORDERS. SW TO ARRANGE TRANSPORTATION. Objective - Vital Signs/Intake and Output Vital Signs (last 24 hours): Temp Pulse Resp BP Pulse Ox 97.7 F 84 20 122/65 97 12/11/16 07:35 12/11/16 07:35 12/11/16 07:35 12/11/16 10:54 12/11/16 07:35 Intake and Output: 12/11/16 12/11/16 06:59 18:59 Output Total 700 Balance -700 - Medications Medications: Current Medications Amlodipine Besylate (Norvasc) 10 mg PO DAILY [facility] Last Admin: 12/11/16 10:55 Dose: 10 mg Aspirin (Aspirin) 325 mg PO DAILY [facility] Last Admin: 12/11/16 10:51 Dose: 325 mg Clopidogrel Bisulfate (Plavix) 75 mg PO DAILY [facility] Last Admin: 12/11/16 10:56 Dose: 75 mg Dextrose (Dextrose 50% Inj) 0 ml IVP .STAT PRN; Protocol PRN Reason: Hypoglycemia Protocol Last Admin: 11/29/16 07:17 Dose: 50 ml Dextrose (Glutose 15) 0 gm PO .ONCE PRN; Protocol PRN Reason: Hypoglycemia Protocol Docusate Sodium (Colace) 100 mg PO TID [facility] Last Admin: 12/11/16 10:52 Dose: 100 mg Duloxetine HCl (Cymbalta) 40 mg PO HS [facility] Last Admin: 12/10/16 22:15 Dose: 40 mg Famotidine (Pepcid) 20 mg PO BID [facility] Last Admin: 12/11/16 10:56 Dose: 20 mg Ferrous Sulfate (Feosol) 325 mg PO BID [facility] Last Admin: 12/11/16 10:52 Dose: 325 mg Finasteride (Proscar) 5 mg PO DAILY [facility] Last Admin: 12/11/16 10:57 Dose: 5 mg Fluticasone Propionate (Flonase) 2 spr EMMA DAILY [facility] Last Admin: 12/11/16 10:53 Dose: Not Given Glucagon (Glucagen Diagnostic Kit) 0 mg IM .STAT PRN; Protocol PRN Reason: Hypoglycemia Protocol Heparin Sodium (Porcine) (Heparin) 5,000 units SC Q12H [facility] Last Admin: 12/11/16 06:50 Dose: Not Given Vancomycin HCl 1 gm/ Sodium (Chloride) 250 mls @ 166.7 mls/hr IVPB Q24H [facility] Last Admin: 12/10/16 12:05 Dose: 166.7 mls/hr Cefazolin Sodium (Ancef) 1 gm in 50 mls @ 100 mls/hr IVPB Q8H [facility] Last Admin: 12/11/16 02:40 Dose: 100 mls/hr Insulin Detemir (Levemir) 18 unit SC HS [facility] Last Admin: 12/10/16 22:15 Dose: 18 unit Insulin Human Regular (Novolin R) 6 unit SC ACL [facility] Last Admin: 12/10/16 12:11 Dose: 6 unit Insulin Human Regular (Novolin R) 6 unit SC ACD [facility] Last Admin: 12/05/16 17:01 Dose: Not Given Insulin Human Regular (Novolin R) 10 unit SC ACB [facility] Last Admin: 12/11/16 08:32 Dose: 10 unit Insulin Human Regular (Novolin R) 5 unit IV ONCE [facility] Insulin Human Regular (Novolin R) 0 unit SC ACHS [facility] PRN Reason: Protocol Last Admin: 12/11/16 08:25 Dose: 2 unit Lisinopril (Zestril) 10 mg PO DAILY [facility] Last Admin: 12/11/16 10:57 Dose: 10 mg Metoprolol Tartrate (Lopressor) 25 mg PO BID [facility] Last Admin: 12/11/16 10:54 Dose: 25 mg Mirtazapine (Remeron) 30 mg PO [facility] Last Admin: 12/10/16 22:29 Dose: 30 mg Ondansetron HCl (Zofran Inj) 4 mg IVP Q6H PRN PRN Reason: Nausea/Vomiting Last Admin: 12/05/16 09:30 Dose: 4 mg Oxycodone/Acetaminophen (Percocet 5/325 Mg Tab) 1 tab PO Q6H PRN PRN Reason: Pain, moderate (4-7) Stop: 12/14/16 10:39 Oxycodone/Acetaminophen (Percocet 5/325 Mg Tab) 2 tab PO Q6H PRN PRN Reason: Pain, severe (8-10) Stop: 12/14/16 10:39 Rosuvastatin Calcium (Crestor) 10 mg PO QPM [facility] Last Admin: 12/10/16 18:50 Dose: 10 mg Saccharomyces Boulardii (Florastor) 250 mg PO BID [facility] Last Admin: 12/11/16 10:53 Dose: 250 mg Tamsulosin HCl (Flomax) 0.4 mg PO DAILY [facility] Last Admin: 12/11/16 10:52 Dose: 0.4 mg - Labs Labs: 12/11/16 08:41 12/11/16 08:41 PT 11.5 SECONDS (9.7-12.2) 12/05/16 16:30 INR 1.0 12/05/16 16:30 APTT 31 SECONDS (21-34) 12/05/16 16:30
--- NOTE | 2016-12-11 16:15 | CP.PCM.DIS ---
Provider - Provider Date of Admission: 11/26/16 23:33 Attending physician: Noé Denis Jr, MD Consults: Dr. Griffin - medical management Dr. Levi - ID Dr. Layton - GI Time Spent in preparation of Discharge (in minutes): 45 Hospital Course - Lab Results Lab Results: Micro Results 12/06/16 21:36 Nose MRSA Culture - Final MRSA NOT DETECTED 12/02/16 21:08 Naris MRSA Culture (Admit) - Final MRSA NOT DETECTED 11/27/16 13:36 Blood-Venous Blood Culture - Final NO GROWTH AFTER 5 DAYS 11/27/16 13:36 Blood-Venous Gram Stain - Final TEST NOT PERFORMED 11/27/16 13:36 Blood-Venous Blood Culture - Final NO GROWTH AFTER 5 DAYS 11/27/16 13:36 Blood-Venous Gram Stain - Final TEST NOT PERFORMED 11/27/16 03:09 Other: Please Indicate Gram Stain - Final 11/27/16 03:09 Other: Please Indicate Wound Culture - Final No growth. 11/29/16 Unknown Nose MRSA Culture - Final MRSA NOT DETECTED 11/27/16 03:01 Groin Gram Stain - Final 11/27/16 03:01 Groin Wound Culture - Final Escherichia Coli Methicillin Resistant S Aureus 11/27/16 03:07 Groin Gram Stain - Final 11/27/16 03:07 Groin Wound Culture - Final Escherichia Coli 11/27/16 02:34 Nose MRSA Culture (Admit) - Final MRSA NOT DETECTED Most Recent Lab Values WBC 7.0 K/uL (4.8-10.8) 12/11/16 08:41 RBC 3.02 Mil/uL (4.40-5.90) L 12/11/16 08:41 Hgb 9.2 g/dL (12.0-18.0) L 12/11/16 08:41 Hct 26.9 % (35.0-51.0) L 12/11/16 08:41 MCV 89.2 fL (80.0-94.0) 12/11/16 08:41 MCH 30.3 pg (27.0-31.0) 12/11/16 08:41 MCHC 34.0 g/dL (33.0-37.0) 12/11/16 08:41 RDW 16.3 % (11.5-14.5) H 12/11/16 08:41 Plt Count 223 K/uL (130-400) 12/11/16 08:41 MPV 8.0 fL (7.2-11.7) 12/11/16 08:41 Neut % (Auto) 74.2 % (50.0-75.0) 12/11/16 08:41 Lymph % (Auto) 11.6 % (20.0-40.0) L 12/11/16 08:41 Fannin % (Auto) 7.9 % (0.0-10.0) 12/11/16 08:41 Eos % (Auto) 5.4 % (0.0-4.0) H 12/11/16 08:41 Baso % (Auto) 0.9 % (0.0-2.0) 12/11/16 08:41 Neut # 5.2 K/uL (1.8-7.0) 12/11/16 08:41 Lymph # 0.8 K/uL (1.0-4.3) L 12/11/16 08:41 Fannin # 0.6 K/uL (0.0-0.8) 12/11/16 08:41 Eos # 0.4 K/uL (0.0-0.7) 12/11/16 08:41 Baso # 0.1 K/uL (0.0-0.2) 12/11/16 08:41 Neutrophils % (Manual) 94 % (50-75) H 12/05/16 16:30 Band Neutrophils % 1 % (0-2) 12/05/16 06:04 Lymphocytes % (Manual) 2 % (20-40) L 12/05/16 16:30 Reactive Lymphs % 1 % (0-0) H 12/03/16 14:47 Monocytes % (Manual) 2 % (0-10) 12/05/16 16:30 Eosinophils % (Manual) 2 % (0-4) 12/05/16 16:30 Basophils % (Manual) 2 % (0-2) 12/05/16 06:04 Platelet Estimate Normal (NORMAL) 12/05/16 16:30 Polychromasia Slight 12/05/16 16:30 Hypochromasia (manual) Slight 12/05/16 16:30 Poikilocytosis (manual Slight 12/05/16 06:04 Anisocytosis (manual) Slight 12/05/16 16:30 Microcytosis (manual) Slight 12/05/16 16:30 Ovalocytes Slight 12/05/16 16:30 Elma Cells Slight 12/04/16 06:32 Acanthocytes (Spur) Slight 11/26/16 11:08 PT 11.5 SECONDS (9.7-12.2) 12/05/16 16:30 INR 1.0 12/05/16 16:30 APTT 31 SECONDS (21-34) 12/05/16 16:30 Puncture Site Line 12/02/16 15:14 pCO2 33 mm/Hg (35-45) L 12/02/16 15:14 pO2 519 mm/Hg (80-100) H 12/02/16 15:14 HCO3 22.5 mmol/L (21-28) 12/02/16 15:14 ABG pH 7.41 (7.35-7.45) 12/02/16 15:14 ABG Total CO2 21.9 mmol/L (22-28) L 12/02/16 15:14 ABG O2 Saturation 99.4 % (95-98) H 12/02/16 15:14 ABG Base Excess -3.2 mmol/L (-2.0-3.0) L 12/02/16 15:14 ABG Hemoglobin 9.5 g/dL (11.7-17.4) L 12/02/16 15:14 ABG Carboxyhemoglobin 1.0 % (0.5-1.5) 12/02/16 15:14 POC ABG HHb (Measured) 0.6 % (0.0-5.0) 12/02/16 15:14 ABG Methemoglobin 0.8 % (0.0-3.0) 12/02/16 15:14 Pawan Test Na 12/02/16 15:14 ABG Potassium 4.4 mmol/L (3.6-5.2) 12/02/16 13:07 Hgb O2 Saturation 97.6 % (95.0-98.0) 12/02/16 15:14 Sodium 132.0 mmol/l (132-148) 12/02/16 13:07 Chloride 104.0 mmol/L (98-107) 12/02/16 13:07 Glucose 303 mg/dl (75-110) H 12/02/16 13:07 Lactate 1.4 mmol/L (0.7-2.1) 12/02/16 13:07 Sodium 133 mmol/L (132-148) 12/11/16 08:41 Potassium 5.0 mmol/L (3.6-5.2) 12/11/16 08:41 Chloride 96 mmol/L (98-107) L 12/11/16 08:41 Carbon Dioxide 26 mmol/L (22-30) 12/11/16 08:41 Anion Gap 16 (10-20) 12/11/16 08:41 BUN 48 mg/dL (9-20) H 12/11/16 08:41 Creatinine 1.5 mg/dL (0.8-1.5) 12/11/16 08:41 Est GFR ( Amer) 56 12/11/16 08:41 Est GFR (Non-Af Amer) 47 12/11/16 08:41 POC Glucose (mg/dL) 215 mg/dL (65-110) H 12/11/16 11:29 Random Glucose 169 mg/dL (75-110) H 12/11/16 08:41 Lactic Acid 1.1 mmol/L (0.7-2.1) 11/27/16 06:28 Calcium 8.6 mg/dl (8.6-10.4) 12/11/16 08:41 Phosphorus 4.2 mg/dL (2.5-4.5) 12/11/16 08:41 Magnesium 1.9 mg/dL (1.6-2.3) 12/11/16 08:41 Total Bilirubin 0.5 mg/dL (0.2-1.3) 12/11/16 08:41 AST 23 U/L (17-59) 12/11/16 08:41 ALT 44 U/L (21-72) 12/11/16 08:41 Alkaline Phosphatase 100 U/L (38-126) 12/11/16 08:41 Total Protein 7.0 g/dL (6.3-8.3) 12/11/16 08:41 Albumin 3.5 g/dL (3.5-5.0) 12/11/16 08:41 Globulin 3.5 gm/dL (2.2-3.9) 12/11/16 08:41 Albumin/Globulin Ratio 1.0 (1.0-2.1) 12/11/16 08:41 Arterial Blood Potassium 4.4 mmol/L (3.6-5.2) 12/02/16 13:07 Stool Occult Blood Negative (NEGATIVE) 11/30/16 00:20 Vancomycin Trough 15.0 ug/mL (5.0-10.0) H 12/11/16 12:28 Random Vancomycin 5.81 ug/mL 12/08/16 07:31 Blood Type O POSITIVE 12/04/16 10:06 Antibody Screen Negative 12/04/16 10:06 - Hospital Course Hospital Course: 70M heavy smoker with PMHx of HTN, DM, PAD, pancreatic cyst, carotid stenosis s/ p CEA, right femoral pseudo-aneurysm, s/p right femoral endarterectomy, right femoral stent placement presented to the ED on 11/26/16 with right groin pulsatile bleeding that started that evening. He was taken to the OR that night for emergent repair of ruptured infected right femoral artery pseudo-aneurysm with proximal ligation and removal of femoral artery stent and patch. Infectious disease was consulted and he was on IV Antibiotics. Culture from the OR grew E. Coli and MRSA. Physical therapy was done. On 12/02/16, he was taken back to the OR and a right common iliac-popliteal bypass with 8mm PTFE and right femoral embolectomy was done. He was transfused several units intraoperatively. He was monitored in the ICU post op. GI was consulted due to coffee-ground emesis and unintentional weight loss. It was recommended that he have EGD/colonoscopy performed electively as outpatient. He didn't have any more emesis, so his Heparin, Aspirin, and Plavix were resumed. He got a PICC placed so he could continue IV Vancomycin while at rehab. On POD # 14 and #9, he was ambulating and cleared for discharge to subacute rehab to follow up with Dr. Denis and GI. Discharge Exam - Head Exam Head Exam: ATRAUMATIC, NORMOCEPHALIC - Eye Exam Eye Exam: EOMI, Normal appearance - Respiratory Exam Respiratory Exam: NORMAL BREATHING PATTERN. absent: Respiratory Distress - Cardiovascular Exam Cardiovascular Exam: +S1, +S2 - GI/Abdominal Exam GI & Abdominal Exam: Soft. absent: Distended, Firm, Guarding, Rebound, Rigid, Tenderness Additional comments: Right lower abdomen dressing: clean/dry/intact - Extremities Exam Additional comments: Right groin dressing: clean/dry/intact Right thigh dressing: clean/dry/intact - Neurological Exam Neurological exam: Alert, CN II-XII Intact - Psychiatric Exam Psychiatric exam: Normal Affect, Normal Mood - Skin Skin Exam: Normal Color Discharge Plan - Discharge Medications Prescriptions: ceFAZolin 1 gm FROZEN Premix [Ancef] 1 gm IV Q8 7 Days ml - Follow Up Plan Condition: GUARDED Disposition: HOME/ ROUTINE Additional Instructions: PLACE UNDER THE SERVICE OF DR. NJ WHILE AT [facility] ---PLEASE CALL DR. NJ UPON ARRIVAL FOR ADMITTING ORDERS AND BED ASSIGNMENT. PLEASE MAKE ARRANGEMENTS FOR MR. TRIVEDI TO FOLLOW UP WITH DR. DENIS IN HIS OFFICE IN 1 WEEK (BY Thursday12/19/16). CONTINUE ALL MEDICATIONS PER THE MED REC FORM---CHANGES CAN BE MADE BY DR. MARS. CONTINUE IV ANTIBIOTICS (FOR 7 MORE DAYS) PER DR. LEVI (ID) FOLLOWS: ANCEF 1 GM IV Q8 HOURS (STARTED ON 12/10/16 AND LAST DAY TO BE GIVEN IS ON 12/18/16) AND VANCOMYCIN 1 GM IV Q DAILY (STARTED ON 12/08/16 AND LAST DAY TO BE GIVEN IS ON 12/18/16). PICC LINE CARE PER FACILITY PROTOCOL. PHYSICAL THERAPY TOLERATED. ABSOLUTELY NO CONSTRICTIVE EQUIPMENT OR CLOTHING TO RIGHT LOWER EXTREMITY!!! IF YOU HAVE ANY FURTHER QUESTIONS, PLEASE CONTACT DR. NJ OR DR. DENIS ( SURGEON WHO DID THE BYPASS IN [facility] Referrals: Alphonse Nj MD [Staff Provider] - Diaz Griffin MD [Doctor Osteopathy] - Raymond Levi MD [Staff Provider] - Noé Denis Jr., MD [Staff Provider] - Kris Santana MD [Staff Provider] -
[2016-12-11 16:33] VITALS: BP 110/68; PULSE 70; TEMP 97; O2SAT 98
== END 2016-12-11 18:30 | DRG 271 ==
LOC: C.ER 21:51 → C.9E 23:33 → C.9I 23:52 → C.6T 11-29 06:14 → C.9S 12-02 13:44 → C.9I 12-02 20:05 → C.5S 12-06 22:17 → C.6T 12-09 13:05
PROVIDERS: ADMIT Surgery Vascular Surgery; ATTEND Surgery Vascular Surgery
PROC: 04QK0ZZ Repair Right Femoral Artery, Open Approach (ICD-10-PCS; 2016-11-27)
PROC: 04CK0ZZ Extirpation of Matter from Right Femoral Artery, Open Approach (ICD-10-PCS; 2016-12-02)
PROC: 041C0JQ Bypass Right Common Iliac Artery to Lower Extremity Artery with Synthetic Substitute, Open Approach (ICD-10-PCS; principal; 2016-12-02 11:30)
DX: I72.4 Aneurysm of artery of lower extremity (principal); E87.1 Hypo-osmolality and hyponatremia; N17.9 Acute kidney failure, unspecified; E87.2 Acidosis; K86.2 Cyst of pancreas; E11.51 Type 2 diabetes mellitus with diabetic peripheral angiopathy without gangrene; E11.649 Type 2 diabetes mellitus with hypoglycemia without coma; K86.1 Other chronic pancreatitis; I70.221 Atherosclerosis of native arteries of extremities with rest pain, right leg; I10 Essential (primary) hypertension; D72.829 Elevated white blood cell count, unspecified; F17.210 Nicotine dependence, cigarettes, uncomplicated; F32.9 Major depressive disorder, single episode, unspecified; D64.9 Anemia, unspecified; K59.00 Constipation, unspecified; Z79.4 Long term (current) use of insulin

== ENCOUNTER 2016-12-30 18:55 | Inpatient (IN) | payer MEDICARE ==
[2016-12-30 18:56] VITALS: BMI 22.8
--- NOTE | 2016-12-30 19:22 | C.PDOC ---
History Of Present Illness Patient sent in from half-way for abnormal labs and decreased appetite for the past 4 days. Patient is status post femoral artery pseudoaneurysm rupture and repair approximately one month ago. Patient is somewhat confused but is able to answer most questions appropriately. Patient is unsure why he is here, has not verbalized any complaints at this time. Time Seen by Provider: 12/30/16 19:14 Chief Complaint (Nursing): Abnormal Labs History Per: EMS, Other ([facility]) History/Exam Limitations: no limitations Onset/Duration Of Symptoms: Days Current Symptoms Are (Timing): Still Present Severity: Mild Pain Scale Rating Of: 2 Recent travel outside of the [place]: No Past Medical History Reviewed: Historical Data, Nursing Documentation, Vital Signs Vital Signs: Last Vital Signs Temp 98.2 F 12/30/16 19:07 Pulse 85 12/30/16 20:38 Resp 17 12/30/16 20:38 BP 116/43 L 12/30/16 20:38 Pulse Ox 99 12/30/16 20:38 - Medical History PMH: Anemia, Arthritis, Depression, Fractures (rt wrist), Gall Bladder Disease, HTN, Hyperlipidemia, Pancreatitis Surgical History: Carotid Endarterectomy (L CEA) - [facility] Procedures BYPASS R COM ILIAC ART TO LOW EX ART W SYNTH SUB, OPEN (11/26/16) EXCISION OF TOE NAIL, EXTERNAL APPROACH (09/25/16) EXERCISE TRMT MUSCULOSK LOW BACK/LE W ASSIST EQUIP (09/25/16) EXTIRPATION OF MATTER FROM L EXT CAROTID, OPEN APPROACH (08/30/16) EXTIRPATION OF MATTER FROM L INT CAROTID, OPEN APPROACH (08/30/16) EXTIRPATION OF MATTER FROM R FEM ART, OPEN APPROACH (11/26/16) GAIT TRAINING/AMBULAT TREATMENT USING ASSIST EQUIPMENT (09/25/16) HOME MANAGEMENT TREATMENT USING ASSIST EQUIPMENT (09/25/16) INSERT OF MONITOR DEV INTO CHEST SUBCU/FASCIA, PERC APPROACH (05/02/16) INTRODUCE OF OTH THERAP SUBST INTO PERIPH ART, PERC APPROACH (10/18/16) REPAIR FACE SKIN, EXTERNAL APPROACH (05/02/16) REPAIR RIGHT FEMORAL ARTERY, OPEN APPROACH (11/26/16) REPAIR RIGHT FEMORAL ARTERY, PERCUTANEOUS APPROACH (10/18/16) SUPPLEMENT L INT CAROTID WITH SYNTH SUB, OPEN APPROACH (08/30/16) SUPPLEMENT R FEM ART WITH SYNTH SUB, OPEN APPROACH (09/20/16) Family History: States: Unknown Family Hx - Social History Hx Tobacco Use: Yes Hx Alcohol Use: Yes Hx Substance Use: No - Immunization History Hx Tetanus Toxoid Vaccination: Yes (unsure) Hx Influenza Vaccination: No (unsure) Hx Pneumococcal Vaccination: Yes (unsure) Review Of Systems Constitutional: Positive for: Other ( appetite). Negative for: Fever, Chills Eyes: Negative for: Redness Cardiovascular: Negative for: Chest Pain Respiratory: Negative for: Shortness of Breath Gastrointestinal: Negative for: Nausea, Vomiting, Diarrhea Musculoskeletal: Negative for: Back Pain Skin: Negative for: Rash Neurological: Negative for: Weakness Psych: Negative for: Anxiety Physical Exam - Physical Exam Appears: Non-toxic, No Acute Distress Skin: Warm, Dry Head: Normacephalic Eye(s): bilateral: Normal Inspection Oral Mucosa: Moist Neck: Supple Chest: Symmetrical Cardiovascular: Rhythm Regular Respiratory: No Rales, No Rhonchi, No Wheezing Gastrointestinal/Abdominal: Bowel Sounds (Active), Soft, No Tenderness Back: No CVA Tenderness Extremity: Tenderness (r inguinal area), Other (Incision to right medial aspect of thigh clean and dry.) Extremity: Bilateral: Atraumatic, Normal Color And Temperature, Normal ROM Pulses: Left Radial: Normal, Right Radial: Normal, Left Femoral: Normal, Right Femoral: Normal, Left Dorsalis Pedis: Normal, Right Dorsalis Pedis: Normal Neurological/Psych: Oriented x3, Normal Speech, Normal Cognition, Other (No focal deficits) Gait: With Assistance ED Course And Treatment - Laboratory Results Result Diagrams: 12/30/16 19:50 12/30/16 19:50 ECG: Interpreted By Me, Viewed By Me O2 Sat by Pulse Oximetry: 96 (Room air) Pulse Ox Interpretation: Normal - Radiology CXR: Interpreted by Me, Viewed By Me CXR Interpretation: No: Infiltrates, Fracture, Pnemothorax Progress Note: Blood work, EKG, urinalysis, and CXR ordered. Disposition Discussed With : Андрей Santana Comment: accepted the pt on his service and took over the care at 8:45 PM Doctor Will See Patient In The: Hospital Counseled Patient/Family Regarding: Studies Performed, Diagnosis - Disposition Disposition: HOSPITALIZED Disposition Time: 19:22 Condition: FAIR Forms: [employer] (Thai) - POA Present On Arrival: Poor Glycemic Control - Clinical Impression Clinical Impression: Electrolyte imbalance, Right groin pain, S/P aneurysm repair, Hyponatremia, Renal insufficiency - Scribe Statement The provider has reviewed the documentation as recorded by the Scribe Raymond Ledesma All medical record entries made by the Scribe were at my direction and personally dictated by me. I have reviewed the chart and agree that the record accurately reflects my personal performance of the history, physical exam, medical decision making, and the department course for this patient. I have also personally directed, reviewed, and agree with the discharge instructions and disposition. Decision To Admit - Pt Status Changed To: Hospital Disposition Of: Inpatient - Admit Certification Admit to Inpatient:: After my assessment, the patient will require hospitalization for at least two midnights. This is because of the severity of symptoms shown, intensity of services needed, and/or the medical risk in this patient being treated as an outpatient. - InPatient: Physician Admission Certification: I certify that this patient requires 2 or more midnights of care for the following reason:: After my assessment, the patient will require hospitalization for at least two midnights. This is because of the severity of symptoms shown, intensity of services needed, and/or the medical risk in this patient being treated as an outpatient. - . Bed Request Type: Telemetry Admitting Physician: Андрей Santana Patient Diagnosis: Electrolyte imbalance, Right groin pain, S/P aneurysm repair, Hyponatremia, Renal insufficiency
[2016-12-30 19:57] LABS: BASO # 0.1 K/uL (0.0-0.2); EOS # 0.6 K/uL (0.0-0.7); EOS % 7.8 % (0.0-4.0); HEMATOCRIT 27.7 % (35.0-51.0); LYMPH % 14.2 % (20.0-40.0); MEAN CELL VOLUME 88.7 fL (80.0-94.0); MEAN CORPUSCULAR HGB CONC 32.7 g/dL (33.0-37.0); MEAN PLATELET VOLUME 9.2 fL (7.2-11.7); MONO # 0.8 K/uL (0.0-0.8); MONO % 10.7 % (0.0-10.0); WHITE BLOOD COUNT 7.3 K/uL (4.8-10.8)
[2016-12-30 20:01] LABS: VENOUS BLOOD GAS BASE EXCESS 10.3 mmol/L (0.0-2.0); VENOUS BLOOD GAS PCO2 57 mmHg (40-60); VENOUS BLOOD PH 7.42 (7.32-7.43)
[2016-12-30 20:06] LABS: POTASSIUM 4.4 mmol/L (3.6-5.2)
[2016-12-30 20:08] LABS: BILIRUBIN,TOTAL 0.8 mg/dL (0.2-1.3)
[2016-12-30 20:09] LABS: CALCIUM 7.7 mg/dl (8.6-10.4); MAGNESIUM 2.2 mg/dL (1.6-2.3)
[2016-12-30] MEDS ORDERED: Sodium Chloride 0.9% 1,000 ML IV ONE (20:13)
[2016-12-30 20:19] LABS: ALB/GLOB RATIO 1.3 (1.0-2.1); TOTAL PROTEIN 6.1 g/dL (6.3-8.3)
[2016-12-30 22:07] LABS: RBC URINE 1 /hpf (0-3); TRANSITIONAL EPITHIAL < 1 /hpf (0-3); URINE BACTERIA RARE (<OCC); URINE BILIRUBIN NEGATIVE (NEGATIVE); URINE BLOOD NEGATIVE (NEGATIVE); URINE COLOR Yellow (YELLOW); URINE GLUCOSE (UA) NORMAL (Normal); URINE KETONE TRACE mg/dL (NEGATIVE); URINE LEUKOCYTE ESTERASE NEG Leu/uL (Negative); URINE PROTEIN NEGATIVE (NEGATIVE); URINE UROBILINOGEN NORMAL mg/dL (0.2-1.0); WBC URINE < 1 /hpf (0-5)
--- NOTE | 2016-12-30 23:38 | CP.PCM.HP ---
History of Present Illness - History of Present Illness History of Present Illness: A 71-year-old male with PMHanemia, arthritis, depression, fracture of right wrist, gallbladder disease, HTN, hyperlipidemia and pancreatitis [facility] for abnormal labs and decreased diet. C/Odecreased appetite for 4 days. Patient came with reports of raised creatinine. Pancytopenia. Patient is status post femoral artery pseudoaneurysm rupture repair 1 month ago. No C/O - fever, vomitting, cough, chest pain, headache, abdominal pain, adbominal distention, vel, hemetemesis, yellowish discolorationof urine & sclera. Present on Admission - Present on Admission Any Indicators Present on Admission: No Past Patient History - Infectious Disease Hx of Infectious Diseases: None - Tetanus Immunizations Tetanus Immunization: Unknown - Past Medical History & Family History Past Medical History?: Yes - Past Social History Smoking Status: Heavy Smoker > 10 Cigarettes Daily - CARDIAC Hx Hypertension: Yes - PULMONARY Hx Respiratory Disorders: No - NEUROLOGICAL Hx Vertigo: Yes - HEENT Other/Comment: glasses for reading - RENAL Hx Chronic Kidney Disease: No - ENDOCRINE/METABOLIC Hx Diabetes Mellitus Type 1: Yes - HEMATOLOGICAL/ONCOLOGICAL Hx Anemia: Yes - INTEGUMENTARY Hx Dermatological Problems: No - MUSCULOSKELETAL/RHEUMATOLOGICAL Hx Arthritis: Yes Hx Fractures: Yes (rt wrist) - GASTROINTESTINAL Hx Gall Bladder Disease: Yes Hx Pancreatitis: Yes - GENITOURINARY/GYNECOLOGICAL Hx Prostate Cancer: Yes Hx Prostate Problems: Yes (BPH) - PSYCHIATRIC Hx Depression: Yes Hx Substance Use: No - SURGICAL HISTORY Hx Carotid Endarterectomy: Yes (L CEA) - ANESTHESIA Hx Anesthesia: Yes Hx Anesthesia Reactions: No Hx Malignant Hyperthermia: No Meds Home Medications: Home Medication List Medication Instructions Recorded Confirmed Type Amoxicillin/Clavulanate [Augmentin 1 tab PO BID 7 Days tab 01/05/17 Rx 875 MG-125 MG] Calcium Carbonate [Tums] 1,000 mg PO TID ctb 01/05/17 Rx Carvedilol [Coreg] 6.25 mg PO BID tab 01/05/17 Rx Heparin 5,000 units SC Q12 vial 01/05/17 Rx Pantoprazole [Protonix EC Tab] 40 mg PO DAILY ect 01/05/17 Rx oxyCODONE/Acetaminophen [Percocet 2 tab PO Q6H PRN tab 01/05/17 Rx 5/325 mg Tab] Ferrous Sulfate 325 mg PO DAILY #30 tablet 01/06/17 Rx Gabapentin [Neurontin] 100 mg PO TID cap 01/06/17 Rx Allergies/Adverse Reactions: Allergies Allergy/AdvReac Type Severity Reaction Status Date / Time No Known Allergies Allergy Verified 12/30/16 19:07 Results - Vital Signs Recent Vital Signs: Last Vital Signs Temp 98.2 F 12/30/16 23:01 Pulse 100 H 12/30/16 23:01 Resp 20 12/30/16 23:01 BP 98/60 L 12/30/16 23:01 Pulse Ox 100 12/30/16 23:01 - Labs Result Diagrams: 01/04/17 07:30 01/06/17 06:15 Labs: Laboratory Results - last 24 hr 12/30/16 12/30/16 12/30/16 19:18 19:50 19:50 WBC 7.3 RBC 3.12 L Hgb 9.0 L Hct 27.7 L MCV 88.7 MCH 29.0 MCHC 32.7 L RDW 16.0 H Plt Count 142 MPV 9.2 Neut % (Auto) 66.3 Lymph % (Auto) 14.2 L Terrell % (Auto) 10.7 H Eos % (Auto) 7.8 H Baso % (Auto) 1.0 Neut # 4.8 Lymph # 1.0 Terrell # 0.8 Eos # 0.6 Baso # 0.1 PT INR APTT pO2 VBG pH VBG pCO2 VBG HCO3 VBG Total CO2 VBG O2 Sat (Calc) VBG Base Excess VBG Potassium Glucose Lactate Sodium 125 L Potassium 4.4 Chloride 83 L Carbon Dioxide 26 Anion Gap 19 BUN 115 H* D Creatinine 5.1 H Est GFR ( Amer) 14 Est GFR (Non-Af Amer) 11 POC Glucose (mg/dL) 226 H Random Glucose 175 H Calcium 7.7 L Magnesium 2.2 Total Bilirubin 0.8 AST 17 D ALT 25 Alkaline Phosphatase 81 Total Protein 6.1 L Albumin 3.5 Globulin 2.6 Albumin/Globulin Ratio 1.3 Lipase 24 Venous Blood Potassium Urine Color Urine Clarity Urine pH Ur Specific [place] Urine Protein Urine Glucose (UA) Urine Ketones Urine Blood Urine Nitrate Urine Bilirubin Urine Urobilinogen Ur Leukocyte Esterase Urine WBC (Auto) Urine RBC (Auto) Ur Transition Epith Cell Urine Bacteria 12/30/16 12/30/1612/30/17 19:50 19:55 21:55 WBC RBC Hgb Hct MCV MCH MCHC RDW Plt Count MPV Neut % (Auto) Lymph % (Auto) Terrell % (Auto) Eos % (Auto) Baso % (Auto) Neut # Lymph # Terrell # Eos # Baso # PT 11.1 INR 1.0 APTT 25 pO2 18 L VBG pH 7.42 VBG pCO2 57 VBG HCO3 31.1 VBG Total CO2 38.7 H VBG O2 Sat (Calc) 29.6 L VBG Base Excess 10.3 H VBG Potassium 4.6 Glucose 197 H Lactate 1.4 Sodium 131.0 L Potassium Chloride 93.0 L Carbon Dioxide Anion Gap BUN Creatinine Est GFR ( Amer) Est GFR (Non-Af Amer) POC Glucose (mg/dL) Random Glucose Calcium Magnesium Total Bilirubin AST ALT Alkaline Phosphatase Total Protein Albumin Globulin Albumin/Globulin Ratio Lipase Venous Blood Potassium 4.6 Urine Color Yellow Urine Clarity Clear Urine pH 6.0 Ur Specific [place] 1.012 Urine Protein Negative Urine Glucose (UA) Normal Urine Ketones Trace Urine Blood Negative Urine Nitrate Negative Urine Bilirubin Negative Urine Urobilinogen Normal Ur Leukocyte Esterase Neg Urine WBC (Auto) < 1 Urine RBC (Auto) 1 Ur Transition Epith Cell < 1 Urine Bacteria Rare
[2016-12-30] MEDS ORDERED: POLYETHYLENE GLYCOL 3350 17 GM/Dose PACKET PO PRN (23:53)
--- NOTE | 2016-12-31 04:19 | RAD ---
PROCEDURE: CHEST RADIOGRAPH, 1 VIEW HISTORY: SOB COMPARISON: Comparison is made to 12/10/2016 FINDINGS: LUNGS: Again noted is noncalcified nodule at the right upper lobe. Hyperinflation of the lungs is again noted. No evidence of new infiltrate or consolidation in the lungs. PLEURA: No pneumothorax or pleural fluid seen. CARDIOVASCULAR: Normal. OSSEOUS STRUCTURES: No significant abnormalities. VISUALIZED UPPER ABDOMEN: Normal. OTHER FINDINGS: PICC line is again noted in the right side of the chest. IMPRESSION: Re- demonstration of focal opacity/ nodule at the right upper lobe. If clinically warranted further assessment by CT may be obtained. No significant interval change since the previous exam noted.
[2016-12-31 07:30] LABS: BASO % 0.9 % (0.0-2.0); LYMPH # 0.6 K/uL (1.0-4.3); MONO # 0.4 K/uL (0.0-0.8); RED CELL DISTRIBUTION WIDTH 15.4 % (11.5-14.5); WHITE BLOOD COUNT 4.7 K/uL (4.8-10.8)
[2016-12-31 07:45] LABS: POTASSIUM 4.7 mmol/L (3.6-5.2)
[2016-12-31 07:46] LABS: EOS # 0.5 K/uL (0.0-0.7); EOS % 9.7 % (0.0-4.0); HEMATOCRIT 22.8 % (35.0-51.0); LYMPH % 13.3 % (20.0-40.0); MEAN CORPUSCULAR HEMOGLOBIN 29.2 pg (27.0-31.0); MEAN CORPUSCULAR HGB CONC 32.8 g/dL (33.0-37.0); MEAN PLATELET VOLUME 9.6 fL (7.2-11.7)
[2016-12-31 07:47] LABS: ALB/GLOB RATIO 1.3 (1.0-2.1); BILIRUBIN,TOTAL 0.5 mg/dL (0.2-1.3)
[2016-12-31 07:48] LABS: CALCIUM 6.1 mg/dl (8.6-10.4); PLATELET COUNT 121 K/uL (130-400)
[2016-12-31] MEDS: DEXTROSE 5% IVPB SCH ×3 (08:05→22:54)
[2016-12-31] MEDS: DEXTROS IVPB SCH ×3 (08:05→22:54)
[2016-12-31] MEDS: CEFTRIAXONE IVPB SCH ×3 (08:05→22:54)
[2016-12-31] MEDS: WATER IVPB SCH ×3 (08:05→22:54)
[2016-12-31] MEDS: Sodium Chloride 0.9% 1,000 ML IV SCH ×3 (08:06→20:44)
[2016-12-31] MEDS: (Novolin R) Insulin Human Regular 100 units/ml vial SC SCH ×4 (08:29→21:00)
--- NOTE | 2016-12-31 09:03 | CP.PCM.PN ---
Addendum entered and electronically signed by Karis Ross DO 12/31/16 11: 24: Tried to get consent for pRBC transfusion. Patient knows it is 2016 and said " I would guess I am in a hospital but I am not sure." Patient was talking about me being in the [facility] and that he knows I am trying to convince him it is December but it might not really be. He also said every resident was "thrown out of my [facility] as though they were making atomic bombs." He had many tangential and delusional thoughts. I tried to get consent from his brother but he was not answering the phone. Nurse Titi says he will try again later - help appreciated. Addendum entered and electronically signed by Karis Ross DO 12/31/16 09: 22: Under Anemia --> transfuse 1u pRBCs today under STEVEN - F/U renal US Addendum entered and electronically signed by Karis Ross DO 12/31/16 09: 20: Under Anemia --> Hematology consult - Dr. Raul Mota - help appreciated Original Note: <Karis Ross - Last Filed: 12/31/16 09:00> Subjective - Date & Time of Evaluation Date of Evaluation: 12/31/16 Time of Evaluation: 07:40 - Subjective Subjective: PGY3 Medicine Note - Dr. Jacky Santana's service: Patient seen and examined at bedside this AM. Patient sleeping comfortably and easily aroused. Patient denies pain. Patient denies fever, chills, chest pain , SOB. Patient knows he had surgery on his femoral artery. Per nursing, patient has been confused as to where he is. Objective - Vital Signs/Intake and Output Vital Signs (last 24 hours): Temp Pulse Resp BP Pulse Ox 98.7 F 87 20 129/62 97 12/31/16 07:00 12/31/16 07:00 12/31/16 07:00 12/31/16 07:00 12/31/16 07:00 Intake and Output: 12/31/16 12/31/16 06:59 18:59 Output Total 200 Balance -200 - Medications Medications: Current Medications Amlodipine Besylate (Norvasc) 10 mg PO DAILY [facility] Aspirin (Aspirin) 325 mg PO DAILY [facility] Clopidogrel Bisulfate (Plavix) 75 mg PO DAILY [facility] Docusate Sodium (Colace) 100 mg PO TID [facility] Duloxetine HCl (Cymbalta) 40 mg PO HS [facility] Famotidine (Pepcid) 20 mg PO BID [facility] Ferrous Sulfate (Feosol) 325 mg PO BID [facility] Finasteride (Proscar) 5 mg PO DAILY [facility] Heparin Sodium (Porcine) (Heparin) 5,000 units SC Q12 [facility] Home Med (Lipase/Protease/Amylase [Creon Dr 24,000 Units Capsule]) 2 tab PO TID [facility] Ceftriaxone Sodium 1 gm/ (Dextrose) 150 mls @ 50 mls/30 min IVPB Q12H [facility] Last Admin: 12/31/16 08:05 Dose: 50 mls/30 min Sodium Chloride (Sodium Chloride 0.9%) 1,000 mls @ 100 mls/hr IV .Q10H [facility] Last Admin: 12/31/16 08:06 Dose: 100 mls/hr Insulin Detemir (Levemir) 18 unit SC HS [facility] Insulin Human Regular (Novolin R) 0 unit SC ACHS [facility] PRN Reason: Protocol Last Admin: 12/31/16 08:29 Dose: Not Given Lisinopril (Zestril) 10 mg PO DAILY [facility] Metoprolol Tartrate (Lopressor) 25 mg PO BID [facility] Mirtazapine (Remeron) 30 mg PO HS [facility] Oxycodone/Acetaminophen (Percocet 5/325 Mg Tab) 2 tab PO Q6H PRN PRN Reason: Pain, severe (8-10) Stop: 01/02/17 23:54 Pantoprazole Sodium (Protonix Ec Tab) 40 mg PO DAILY [facility] Polyethylene Glycol (Miralax) 17 gm PO DAILY PRN PRN Reason: IF NO BM IN 3 DAYS Rosuvastatin Calcium (Crestor) 10 mg PO QPM [facility] Saccharomyces Boulardii (Florastor) 250 mg PO BID [facility] Tamsulosin HCl (Flomax) 0.4 mg PO DAILY [facility] - Labs Labs: 12/31/16 07:02 12/31/16 07:02 PT 11.1 SECONDS (9.7-12.2) 12/30/16 19:50 INR 1.0 12/30/16 19:50 APTT 25 SECONDS (21-34) 12/30/16 19:50 - Constitutional Appears: Non-toxic, No Acute Distress - Head Exam Head Exam: NORMAL INSPECTION - Eye Exam Eye Exam: EOMI - ENT Exam ENT Exam: Mucous Membranes Moist - Respiratory Exam Respiratory Exam: Clear to Ausculation Bilateral, NORMAL BREATHING PATTERN. absent: Rales, Rhonchi, Wheezes - Cardiovascular Exam Cardiovascular Exam: REGULAR RHYTHM, +S1, +S2. absent: Gallop, Rubs, Murmur - GI/Abdominal Exam GI & Abdominal Exam: Soft, Normal Bowel Sounds. absent: Tenderness - Extremities Exam Extremities Exam: absent: Pedal Edema - Neurological Exam Neurological Exam: Alert, Awake. absent: Oriented x3 - Psychiatric Exam Psychiatric exam: Normal Affect, Normal Mood - Skin Skin Exam: Normal Color, Warm Assessment and Plan - Assessment and Plan (Free Text) Assessment: STEVEN Admitted with BUN/Cr: 115/5.1 No prior history of kidney disease 1L NS in ER 100ml/hr NS Nephrology consult - Dr. Blood - help appreciated BUN/Cr improving to 107/4.2 today Anemia Hgb 7.5, MCV 89 Ferrous sulfate 325mg PO daily (home med) F/U iron, TIBC, ferritin, retic count, B12, folate, stool occult blood AMS Unsteady on his feet Does not remember falling but patient is a poor historian F/U Head CT Depression Cymbalta 40mg PO HS Remeron 30mg PO HS HTN Norvasc 10mg PO daily Lisinopril 10mg PO daily Metoprolol 25mg PO BID CAD with stent 2016 Cardiac cath 09/21/[address] 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 Lorenzo Discharge back to [facility] when ready BPH Flomax 0.4mg PO daily Proscar 5mg PO daily Prophylaxis Protonix 40mg PO daily Heparin 5000U SC Q12 Miralax 17gm PO daily PRN if no BM in 3 days All medical management per Dr. Jacky Santana <Андрей Santana S - Last Filed: 01/06/17 12:32> Objective - Vital Signs/Intake and Output Vital Signs (last 24 hours): Temp Pulse Resp BP Pulse Ox 97.5 F L 69 18 132/72 100 01/06/17 07:05 01/06/17 07:05 01/06/17 07:05 01/06/17 07:05 01/06/17 07:05 Intake and Output: 01/06/17 01/06/17 06:59 18:59 Intake Total 1800 Output Total 500 Balance 1300 - Medications Medications: Current Medications Amlodipine Besylate (Norvasc) 10 mg PO DAILY [facility] Last Admin: 01/06/17 09:28 Dose: 10 mg Carvedilol (Coreg) 6.25 mg PO BID [facility] Last Admin: 01/06/17 09:28 Dose: 6.25 mg Docusate Sodium (Colace) 100 mg PO TID [facility] Last Admin: 01/06/17 09:27 Dose: 100 mg Duloxetine HCl (Cymbalta) 40 mg PO HS [facility] Last Admin: 01/05/17 21:43 Dose: 40 mg Ferric Sodium Gluconate Complex (Ferrlecit) 125 mg IVPB DAILY [facility] Stop: 01/09/17 10:16 Last Admin: 01/06/17 12:02 Dose: 125 mg Finasteride (Proscar) 5 mg PO DAILY [facility] Last Admin: 01/06/17 09:28 Dose: 5 mg Gabapentin (Neurontin) 100 mg PO TID [facility] Last Admin: 01/06/17 09:27 Dose: 100 mg Heparin Sodium (Porcine) (Heparin) 5,000 units SC Q12 [facility] Last Admin: 01/06/17 09:27 Dose: 5,000 units Ceftriaxone Sodium (Rocephin Iv 1 Gm Duplex) 50 mls @ 100 mls/hr IVPB Q12H [facility] Last Admin: 01/06/17 02:30 Dose: 100 mls/hr Sodium Chloride (Sodium Chloride 0.9%) 1,000 mls @ 70 mls/hr IV .[id number] [facility] Last Admin: 01/06/17 02:00 Dose: Not Given Insulin Detemir (Levemir) 18 unit SC HS [facility] Last Admin: 01/05/17 21:43 Dose: 18 unit Insulin Human Regular (Novolin R) [address] [facility] PRN Reason: Protocol Last Admin: 01/06/17 09:27 Dose: 1 unit Mirtazapine (Remeron) 30 mg PO HS [facility] Last Admin: 01/05/17 21:42 Dose: 30 mg Oxycodone/Acetaminophen (Percocet 5/325 Mg Tab) 2 tab PO Q6H PRN PRN Reason: Pain, severe (8-10) Stop: 01/06/17 16:02 Last Admin: 01/06/17 11:55 Dose: 2 tab Pantoprazole Sodium (Protonix Ec Tab) 40 mg PO DAILY [facility] Last Admin: 01/06/17 09:28 Dose: 40 mg Polyethylene Glycol (Miralax) 17 gm PO DAILY PRN PRN Reason: IF NO BM IN 3 DAYS Rosuvastatin Calcium (Crestor) 10 mg PO QPM [facility] Last Admin: 01/05/17 18:52 Dose: 10 mg Saccharomyces Boulardii (Florastor) 250 mg PO BID [facility] Last Admin: 01/06/17 09:27 Dose: 250 mg Tamsulosin HCl (Flomax) 0.4 mg PO DAILY [facility] Last Admin: 01/06/17 09:27 Dose: 0.4 mg - Labs Labs: 01/04/17 07:30 01/06/17 06:15 PT 11.1 SECONDS (9.7-12.2) 12/30/16 19:50 INR 1.0 12/30/16 19:50 APTT 25 SECONDS (21-34) 12/30/16 19:50 Attending/Attestation - Attestation I have personally seen and examined this patient.: Yes I have fully participated in the care of the patient.: Yes I have reviewed all pertinent clinical information, including history, physical exam and plan: Yes Notes (Text): Patient examined. Patient sleeping comfortable and easily arouseed. Continue aspirin, clopidogrel. Continue cefriaxone. Continue antidiabetic and hypertensive medications. Continue supportive medications.
[2016-12-31] MEDS ORDERED: LIPASE/PROTEASE/AMYLASE 4,200 U ECC PO SCH (10:00)
[2016-12-31] MEDS ORDERED: Enoxaparin 30 mg Syringe SC SCH (10:00)
[2016-12-31 10:26] LABS: BASOPHIL 1 % (0-2); EOSINOPHIL 9 % (0-4); NEUTROPHIL 66 % (50-75); REACTIVE LYMPHOCYTES 1 % (0-0); TOTAL CELLS COUNTED 100
--- NOTE | 2016-12-31 10:31 | CT ---
PROCEDURE: CT HEAD WITHOUT CONTRAST. HISTORY: AMS COMPARISON: Comparison made with CT scan brain 05/01/2016 TECHNIQUE: Axial computed tomography images were obtained through the head/brain without intravenous contrast. Radiation dose: Total exam DLP = 1017.6 mGy-cm. This CT exam was performed using one or more of the following dose reduction techniques: Automated exposure control, adjustment of the mA and/or kV according to patient size, and/or use of iterative reconstruction technique. FINDINGS: HEMORRHAGE: No acute parenchymal, subarachnoid nor extra-axial hemorrhage. BRAIN: Moderate diffuse/confluent chronic spaces unchanged. White matter ischemic changes seen extending peripherally into the deep and subcortical white matter both cerebral hemispheres. In addition, there appears to be a tiny chronic lacunar type infarct left anterior mejia radiata. Few scattered nonspecific calcifications within the left posterior superior parietal subarachnoid Moderate central volume loss unchanged. Vascular calcifications both carotid siphons also unchanged VENTRICLES: No obstructive hydrocephalus CALVARIUM: There are no acute calvarial fractures. PARANASAL SINUSES: Minimal mucosal thickening noted within a few ethmoid air cells as well as both maxillary antra. MASTOID AIR CELLS: Unremarkable as visualized. No inflammatory changes. OTHER FINDINGS: Orbits and contents unremarkable. IMPRESSION: No acute intracranial hemorrhage. Moderate chronic white matter ischemic changes and central volume loss on altered from prior exam.
--- NOTE | 2016-12-31 10:35 | US ---
PROCEDURE: Ultrasound of the Kidneys HISTORY: briana COMPARISON: CT abdomen and pelvis without contrast performed 10/21/16 TECHNIQUE: Sonogram of the kidneys. FINDINGS: RIGHT KIDNEY: Measures: 10.4 x 5.4 x 4.5 cm. 1.0 x 1.2 x 1.4 cm upper pole renal cyst. Fullness of the renal collecting system. 5 mm echogenic renal focus within the midpole demonstrates posterior acoustic shadowing consistent with calculus. LEFT KIDNEY: Measures: 11.8 x 5.6 x 6.2 cm. Fullness of the renal collecting system. 4 mm echogenic focus within the lower pole demonstrates posterior acoustic shadowing consistent with calculus. OTHER FINDINGS: None. IMPRESSION: Mild fullness of bilateral renal collecting systems. 1.4 cm right upper pole renal cyst. Bilateral sub cm calculi as above.
[2016-12-31] MEDS: Saccharomyces Boulardi 250 mg Cap PO SCH ×2 (10:36→18:31)
[2016-12-31] MEDS: Pantoprazole 40 mg EC Tab PO SCH (10:38)
[2016-12-31 11:48] LABS: RETIC% 1.9 % (0.5-1.5)
[2016-12-31 12:19] LABS: IRON 18 ug/dL (49-181)
--- NOTE | 2016-12-31 13:03 | CP.PCM.CON ---
Past Patient History - Infectious Disease Hx of Infectious Diseases: None - Tetanus Immunizations Tetanus Immunization: Unknown - Past Medical History & Family History Past Medical History?: Yes - Past Social History Smoking Status: Heavy Smoker > 10 Cigarettes Daily - CARDIAC Hx Hypertension: Yes - PULMONARY Hx Respiratory Disorders: No - NEUROLOGICAL Hx Vertigo: Yes - HEENT Other/Comment: glasses for reading - RENAL Hx Chronic Kidney Disease: No - ENDOCRINE/METABOLIC Hx Diabetes Mellitus Type 1: Yes - HEMATOLOGICAL/ONCOLOGICAL Hx Anemia: Yes - INTEGUMENTARY Hx Dermatological Problems: No - MUSCULOSKELETAL/RHEUMATOLOGICAL Hx Arthritis: Yes Hx Fractures: Yes (rt wrist) - GASTROINTESTINAL Hx Gall Bladder Disease: Yes Hx Pancreatitis: Yes - GENITOURINARY/GYNECOLOGICAL Hx Prostate Cancer: Yes Hx Prostate Problems: Yes (BPH) - PSYCHIATRIC Hx Depression: Yes Hx Substance Use: No - SURGICAL HISTORY Hx Carotid Endarterectomy: Yes (L CEA) - ANESTHESIA Hx Anesthesia: Yes Hx Anesthesia Reactions: No Hx Malignant Hyperthermia: No Meds Allergies/Adverse Reactions: Allergies Allergy/AdvReac Type Severity Reaction Status Date / Time No Known Allergies Allergy Verified 12/30/16 19:07 - Medications Medications: Current Medications Amlodipine Besylate (Norvasc) 10 mg PO DAILY [facility] Last Admin: 12/31/16 10:38 Dose: 10 mg Aspirin (Aspirin) 325 mg PO DAILY [facility] Last Admin: 12/31/16 10:36 Dose: 325 mg Clopidogrel Bisulfate (Plavix) 75 mg PO DAILY [facility] Last Admin: 12/31/16 10:36 Dose: 75 mg Docusate Sodium (Colace) 100 mg PO TID [facility] Last Admin: 12/31/16 10:36 Dose: 100 mg Duloxetine HCl (Cymbalta) 40 mg PO [facility] Ferrous Sulfate (Feosol) 325 mg PO BID [facility] Last Admin: 12/31/16 10:37 Dose: 325 mg Finasteride (Proscar) 5 mg PO DAILY [facility] Last Admin: 12/31/16 10:36 Dose: 5 mg Heparin Sodium (Porcine) (Heparin) 5,000 units SC Q12 [facility] Last Admin: 12/31/16 10:39 Dose: 5,000 units Ceftriaxone Sodium 1 gm/ (Dextrose) 150 mls @ 50 mls/30 min IVPB Q12H [facility] Last Admin: 12/31/16 12:51 Dose: 50 mls/30 min Sodium Chloride (Sodium Chloride 0.9%) 1,000 mls @ 100 mls/hr IV .Q10H [facility] Last Admin: 12/31/16 08:06 Dose: 100 mls/hr Insulin Detemir (Levemir) 18 unit SC HS [facility] Insulin Human Regular (Novolin R) 0 unit SC ACHS [facility] PRN Reason: Protocol Last Admin: 12/31/16 12:50 Dose: 2 unit Lisinopril (Zestril) 10 mg PO DAILY [facility] Last Admin: 12/31/16 10:37 Dose: 10 mg Metoprolol Tartrate (Lopressor) 25 mg PO BID [facility] Last Admin: 12/31/16 10:38 Dose: 25 mg Mirtazapine (Remeron) 30 mg PO HS [facility] Oxycodone/Acetaminophen (Percocet 5/325 Mg Tab) 2 tab PO Q6H PRN PRN Reason: Pain, severe (8-10) Stop: 01/02/17 23:54 Pantoprazole Sodium (Protonix Ec Tab) 40 mg PO DAILY [facility] Last Admin: 12/31/16 10:38 Dose: 40 mg Polyethylene Glycol (Miralax) 17 gm PO DAILY PRN PRN Reason: IF NO BM IN 3 DAYS Rosuvastatin Calcium (Crestor) 10 mg PO QPM [facility] Saccharomyces Boulardii (Florastor) 250 mg PO BID [facility] Last Admin: 12/31/16 10:36 Dose: 250 mg Tamsulosin HCl (Flomax) 0.4 mg PO DAILY [facility] Last Admin: 12/31/16 10:38 Dose: 0.4 mg Results - Vital Signs Recent Vital Signs: Last Vital Signs Temp 98.7 F 12/31/16 07:00 Pulse 87 12/31/16 07:00 Resp 20 12/31/16 07:00 BP 129/62 12/31/16 10:38 Pulse Ox 97 12/31/16 07:00 - Labs Result Diagrams: 12/31/16 07:02 12/31/16 07:02 Labs: Laboratory Results - last 24 hr 12/30/16 12/30/16 12/30/16 19:18 19:50 19:50 WBC 7.3 RBC 3.12 L Hgb 9.0 L Hct 27.7 L MCV 88.7 MCH 29.0 MCHC 32.7 L RDW 16.0 H Plt Count 142 MPV 9.2 Neut % (Auto) 66.3 Lymph % (Auto) 14.2 L Robertson % (Auto) 10.7 H Eos % (Auto) 7.8 H Baso % (Auto) 1.0 Neut # 4.8 Lymph # 1.0 Robertson # 0.8 Eos # 0.6 Baso # 0.1 Neutrophils % (Manual) Lymphocytes % (Manual) Reactive Lymphs % Monocytes % (Manual) Eosinophils % (Manual) Basophils % (Manual) Platelet Estimate Plt Clumps, EDTA Hypochromasia (manual) Poikilocytosis (manual Anisocytosis (manual) Ovalocytes Mayelin Cells Retic Count PT INR APTT pO2 VBG pH VBG pCO2 VBG HCO3 VBG Total CO2 VBG O2 Sat (Calc) VBG Base Excess VBG Potassium Glucose Lactate Sodium 125 L Potassium 4.4 Chloride 83 L Carbon Dioxide 26 Anion Gap 19 BUN 115 H* D Creatinine 5.1 H Est GFR ( Amer) 14 Est GFR (Non-Af Amer) 11 POC Glucose (mg/dL) 226 H Random Glucose 175 H Calcium 7.7 L Magnesium 2.2 Iron TIBC % Saturation Total Bilirubin 0.8 AST 17 D ALT 25 Alkaline Phosphatase 81 Total Protein 6.1 L Albumin 3.5 Globulin 2.6 Albumin/Globulin Ratio 1.3 Lipase 24 Venous Blood Potassium Urine Color Urine Clarity Urine pH Ur Specific [place] Urine Protein Urine Glucose (UA) Urine Ketones Urine Blood Urine Nitrate Urine Bilirubin Urine Urobilinogen Ur Leukocyte Esterase Urine WBC (Auto) Urine RBC (Auto) Ur Transition Epith Cell Urine Bacteria 12/30/16 12/30/16 12/30/16 19:50 19:55 21:55 WBC RBC Hgb Hct MCV MCH MCHC RDW Plt Count MPV Neut % (Auto) Lymph % (Auto) Robertson % (Auto) Eos % (Auto) Baso % (Auto) Neut # Lymph # Robertson # Eos # Baso # Neutrophils % (Manual) Lymphocytes % (Manual) Reactive Lymphs % Monocytes % (Manual) Eosinophils % (Manual) Basophils % (Manual) Platelet Estimate Plt Clumps, EDTA Hypochromasia (manual) Poikilocytosis (manual Anisocytosis (manual) Ovalocytes Smoot Cells Retic Count PT 11.1 INR 1.0 APTT 25 pO2 18 L VBG pH 7.42 VBG pCO2 57 VBG HCO3 31.1 VBG Total CO2 38.7 H VBG O2 Sat (Calc) 29.6 L VBG Base Excess 10.3 H VBG Potassium 4.6 Glucose 197 H Lactate 1.4 Sodium 131.0 L Potassium Chloride 93.0 L Carbon Dioxide Anion Gap BUN Creatinine Est GFR ( Amer) Est GFR (Non-Af Amer) POC Glucose (mg/dL) Random Glucose Calcium Magnesium Iron TIBC % Saturation Total Bilirubin AST ALT Alkaline Phosphatase Total Protein Albumin Globulin Albumin/Globulin Ratio Lipase Venous Blood Potassium 4.6 Urine Color Yellow Urine Clarity Clear Urine pH 6.0 Ur Specific [place] 1.012 Urine Protein Negative Urine Glucose (UA) Normal Urine Ketones Trace Urine Blood Negative Urine Nitrate Negative Urine Bilirubin Negative Urine Urobilinogen Normal Ur Leukocyte Esterase Neg Urine WBC (Auto) < 1 Urine RBC (Auto) 1 Ur Transition Epith Cell < 1 Urine Bacteria Rare 12/31/16 12/31/16 12/31/16 06:08 07:02 07:02 WBC 4.7 L RBC 2.57 L Hgb 7.5 L Hct 22.8 L MCV 89.0 MCH 29.2 MCHC 32.8 L RDW 15.4 H Plt Count 121 L D MPV 9.6 Neut % (Auto) 67.1 Lymph % (Auto) 13.3 L Robertson % (Auto) 9.0 Eos % (Auto) 9.7 H Baso % (Auto) 0.9 Neut # 3.1 Lymph # 0.6 L Robertson # 0.4 Eos # 0.5 Baso # 0.0 Neutrophils % (Manual) 66 Lymphocytes % (Manual) 15 L Reactive Lymphs % 1 H Monocytes % (Manual) 8 Eosinophils % (Manual) 9 H Basophils % (Manual) 1 Platelet Estimate Slightly decreased L Plt Clumps, EDTA Hypochromasia (manual) Slight Poikilocytosis (manual Slight Anisocytosis (manual) Slight Ovalocytes Slight Mayelin Cells Slight Retic Count 1.9 H PT INR APTT pO2 VBG pH VBG pCO2 VBG HCO3 VBG Total CO2 VBG O2 Sat (Calc) VBG Base Excess VBG Potassium Glucose Lactate Sodium 130 L Potassium 4.7 Chloride 92 L Carbon Dioxide 26 Anion Gap 17 BUN 107 H* Creatinine 4.2 H Est GFR ( Amer) 17 Est GFR (Non-Af Amer) 14 POC Glucose (mg/dL) 278 H Random Glucose 230 H Calcium 6.1 L Magnesium Iron TIBC % Saturation Total Bilirubin 0.5 AST 18 ALT 27 Alkaline Phosphatase 75 Total Protein 5.0 L Albumin 2.8 L Globulin 2.2 Albumin/Globulin Ratio 1.3 Lipase Venous Blood Potassium Urine Color Urine Clarity Urine pH Ur Specific [place] Urine Protein Urine Glucose (UA) Urine Ketones Urine Blood Urine Nitrate Urine Bilirubin Urine Urobilinogen Ur Leukocyte Esterase Urine WBC (Auto) Urine RBC (Auto) Ur Transition Epith Cell Urine Bacteria 12/31/16 12/31/16 12/31/16 08:20 10:58 11:39 WBC RBC Hgb Hct MCV MCH MCHC RDW Plt Count MPV Neut % (Auto) Lymph % (Auto) Robertson % (Auto) Eos % (Auto) Baso % (Auto) Neut # Lymph # Robertson # Eos # Baso # Neutrophils % (Manual) Lymphocytes % (Manual) Reactive Lymphs % Monocytes % (Manual) Eosinophils % (Manual) Basophils % (Manual) Platelet Estimate Plt Clumps, EDTA Hypochromasia (manual) Poikilocytosis (manual Anisocytosis (manual) Ovalocytes Mayelin Cells Retic Count PT INR APTT pO2 VBG pH VBG pCO2 VBG HCO3 VBG Total CO2 VBG O2 Sat (Calc) VBG Base Excess VBG Potassium Glucose Lactate Sodium Potassium Chloride Carbon Dioxide Anion Gap BUN Creatinine Est GFR ( Amer) Est GFR (Non-Af Amer) POC Glucose (mg/dL) 259 H 218 H Random Glucose Calcium Magnesium Iron 18 L TIBC 197 L % Saturation 9 L Total Bilirubin AST ALT Alkaline Phosphatase Total Protein Albumin Globulin Albumin/Globulin Ratio Lipase Venous Blood Potassium Urine Color Urine Clarity Urine pH Ur Specific [place] Urine Protein Urine Glucose (UA) Urine Ketones Urine Blood Urine Nitrate Urine Bilirubin Urine Urobilinogen Ur Leukocyte Esterase Urine WBC (Auto) Urine RBC (Auto) Ur Transition Epith Cell Urine Bacteria
--- NOTE | 2016-12-31 15:38 | CP.PCM.CON ---
History of Present Illness - History of Present Illness History of Present Illness: 71 yo white male with pvd, cad, recent admit for repair of a femoral aneurysm. Has been at a [facility]. Now referred for abnormal labs including severe STEVEN. Pt with normal renal function on admission in last 2 months. Pt is confused and restless with poor insight, and is difficult to get a history and physical. Noted to be on an mojgan-i. Recent contrast procedure in November. Noted to be on plavix. Noted to have decline in hemoglobin and platelets. Pt noted to be urinating, 300 cc before I came in. Poor po intake in half-way. Urine has small amount of protein. Review of Systems - Review of Systems Systems not reviewed;Unavailable: Uncooperative Past Patient History - Infectious Disease Hx of Infectious Diseases: None - Tetanus Immunizations Tetanus Immunization: Unknown - Past Medical History & Family History Past Medical History?: Yes - Past Social History Smoking Status: Heavy Smoker > 10 Cigarettes Daily - CARDIAC Hx Hypertension: Yes - PULMONARY Hx Respiratory Disorders: No - NEUROLOGICAL Hx Vertigo: Yes - HEENT Other/Comment: glasses for reading - RENAL Hx Chronic Kidney Disease: No - ENDOCRINE/METABOLIC Hx Diabetes Mellitus Type 1: Yes - HEMATOLOGICAL/ONCOLOGICAL Hx Anemia: Yes - INTEGUMENTARY Hx Dermatological Problems: No - MUSCULOSKELETAL/RHEUMATOLOGICAL Hx Arthritis: Yes Hx Fractures: Yes (rt wrist) - GASTROINTESTINAL Hx Gall Bladder Disease: Yes Hx Pancreatitis: Yes - GENITOURINARY/GYNECOLOGICAL Hx Prostate Cancer: Yes Hx Prostate Problems: Yes (BPH) - PSYCHIATRIC Hx Depression: Yes Hx Substance Use: No - SURGICAL HISTORY Hx Carotid Endarterectomy: Yes (L CEA) - ANESTHESIA Hx Anesthesia: Yes Hx Anesthesia Reactions: No Hx Malignant Hyperthermia: No Meds Allergies/Adverse Reactions: Allergies Allergy/AdvReac Type Severity Reaction Status Date / Time No Known Allergies Allergy Verified 12/30/16 19:07 - Medications Medications: Current Medications Amlodipine Besylate (Norvasc) 10 mg PO DAILY [facility] Last Admin: 12/31/16 10:38 Dose: 10 mg Aspirin (Aspirin) 325 mg PO DAILY [facility] Last Admin: 12/31/16 10:36 Dose: 325 mg Calcium Carbonate (Tums) 1,000 mg PO TID [facility] Clopidogrel Bisulfate (Plavix) 75 mg PO DAILY [facility] Last Admin: 12/31/16 10:36 Dose: 75 mg Docusate Sodium (Colace) 100 mg PO TID [facility] Last Admin: 12/31/16 14:45 Dose: Not Given Duloxetine HCl (Cymbalta) 40 mg PO HS [facility] Ferrous Sulfate (Feosol) 325 mg PO BID [facility] Last Admin: 12/31/16 10:37 Dose: 325 mg Finasteride (Proscar) 5 mg PO DAILY [facility] Last Admin: 12/31/16 10:36 Dose: 5 mg Heparin Sodium (Porcine) (Heparin) 5,000 units SC Q12 [facility] Last Admin: 12/31/16 10:39 Dose: 5,000 units Ceftriaxone Sodium 1 gm/ (Dextrose) 150 mls @ 50 mls/30 min IVPB Q12H [facility] Last Admin: 12/31/16 12:51 Dose: 50 mls/30 min Sodium Chloride (Sodium Chloride 0.9%) 1,000 mls @ 100 mls/hr IV .Q10H [facility] Last Admin: 12/31/16 14:44 Dose: Not Given Insulin Detemir (Levemir) 18 unit SC HS [facility] Insulin Human Regular (Novolin R) 0 unit SC ACHS [facility] PRN Reason: Protocol Last Admin: 12/31/16 12:50 Dose: 2 unit Metoprolol Tartrate (Lopressor) 25 mg PO BID [facility] Last Admin: 12/31/16 10:38 Dose: 25 mg Mirtazapine (Remeron) 30 mg PO HS [facility] Oxycodone/Acetaminophen (Percocet 5/325 Mg Tab) 2 tab PO Q6H PRN PRN Reason: Pain, severe (8-10) Stop: 01/02/17 23:54 Pantoprazole Sodium (Protonix Ec Tab) 40 mg PO DAILY [facility] Last Admin: 12/31/16 10:38 Dose: 40 mg Polyethylene Glycol (Miralax) 17 gm PO DAILY PRN PRN Reason: IF NO BM IN 3 DAYS Rosuvastatin Calcium (Crestor) 10 mg PO QPM [facility] Saccharomyces Boulardii (Florastor) 250 mg PO BID [facility] Last Admin: 12/31/16 10:36 Dose: 250 mg Tamsulosin HCl (Flomax) 0.4 mg PO DAILY [facility] Last Admin: 12/31/16 10:38 Dose: 0.4 mg Physical Exam - Constitutional Appears: Agitated, Confused, Cachectic, Chronically Ill - Head Exam Head Exam: ATRAUMATIC - Eye Exam Eye Exam: EOMI, Normal appearance - ENT Exam ENT Exam: Mucous Membranes Moist - Respiratory Exam Respiratory Exam: NORMAL BREATHING PATTERN. absent: Accessory Muscle Use - Cardiovascular Exam Cardiovascular Exam: REGULAR RHYTHM. absent: Rubs - GI/Abdominal Exam GI & Abdominal Exam: Soft. absent: Guarding - Extremities Exam Extremities exam: Negative for: pedal edema - Neurological Exam Neurological exam: Alert, Normal Gait Results - Vital Signs Recent Vital Signs: Last Vital Signs Temp 98.7 F 12/31/16 07:00 Pulse 87 12/31/16 07:00 Resp 20 12/31/16 07:00 BP 129/62 12/31/16 10:38 Pulse Ox 97 12/31/16 07:00 - Labs Result Diagrams: 12/31/16 07:02 12/31/16 07:02 Labs: Laboratory Results - last 24 hr 12/30/16 12/30/16 12/30/16 19:18 19:50 19:50 WBC 7.3 RBC 3.12 L Hgb 9.0 L Hct 27.7 L MCV 88.7 MCH 29.0 MCHC 32.7 L RDW 16.0 H Plt Count 142 MPV 9.2 Neut % (Auto) 66.3 Lymph % (Auto) 14.2 L [place] % (Auto) 10.7 H Eos % (Auto) 7.8 H Baso % (Auto) 1.0 Neut # 4.8 Lymph # 1.0 Rab[place] # 0.8 Eos # 0.6 Baso # 0.1 Neutrophils % (Manual) Lymphocytes % (Manual) Reactive Lymphs % Monocytes % (Manual) Eosinophils % (Manual) Basophils % (Manual) Platelet Estimate Plt Clumps, EDTA Hypochromasia (manual) Poikilocytosis (manual Anisocytosis (manual) Ovalocytes [place] Cells Retic Count PT INR APTT pO2 VBG pH VBG pCO2 VBG HCO3 VBG Total CO2 VBG O2 Sat (Calc) VBG Base Excess VBG Potassium Glucose Lactate Sodium 125 L Potassium 4.4 Chloride 83 L Carbon Dioxide 26 Anion Gap 19 BUN 115 H* D Creatinine 5.1 H Est GFR ( Amer) 14 Est GFR (Non-Af Amer) 11 POC Glucose (mg/dL) 226 H Random Glucose 175 H Calcium 7.7 L Magnesium 2.2 Iron TIBC % Saturation Ferritin Total Bilirubin 0.8 AST 17 D ALT 25 Alkaline Phosphatase 81 Total Protein 6.1 L Albumin 3.5 Globulin 2.6 Albumin/Globulin Ratio 1.3 Lipase 24 Vitamin B12 Venous Blood Potassium Urine Color Urine Clarity Urine pH Ur Specific [place] Urine Protein Urine Glucose (UA) Urine Ketones Urine Blood Urine Nitrate Urine Bilirubin Urine Urobilinogen Ur Leukocyte Esterase Urine WBC (Auto) Urine RBC (Auto) Ur Transition Epith Cell Urine Bacteria Urine Osmolality Ur Random Sodium 12/30/16 12/30/16 12/30/16 19:50 19:55 21:55 WBC RBC Hgb Hct MCV MCH MCHC RDW Plt Count MPV Neut % (Auto) Lymph % (Auto) [place] % (Auto) Eos % (Auto) Baso % (Auto) Neut # Lymph # [place] # Eos # Baso # Neutrophils % (Manual) Lymphocytes % (Manual) Reactive Lymphs % Monocytes % (Manual) Eosinophils % (Manual) Basophils % (Manual) Platelet Estimate Plt Clumps, EDTA Hypochromasia (manual) Poikilocytosis (manual Anisocytosis (manual) Ovalocytes [place] Cells Retic Count PT 11.1 INR 1.0 APTT 25 pO2 18 L VBG pH 7.42 VBG pCO2 57 VBG HCO3 31.1 VBG Total CO2 38.7 H VBG O2 Sat (Calc) 29.6 L VBG Base Excess 10.3 H VBG Potassium 4.6 Glucose 197 H Lactate 1.4 Sodium 131.0 L Potassium Chloride 93.0 L Carbon Dioxide Anion Gap BUN Creatinine Est GFR ( Amer) Est GFR (Non-Af Amer) POC Glucose (mg/dL) Random Glucose Calcium Magnesium Iron TIBC % Saturation Ferritin Total Bilirubin AST ALT Alkaline Phosphatase Total Protein Albumin Globulin Albumin/Globulin Ratio Lipase Vitamin B12 Venous Blood Potassium 4.6 Urine Color Yellow Urine Clarity Clear Urine pH 6.0 Ur Specific [place] 1.012 Urine Protein Negative Urine Glucose (UA) Normal Urine Ketones Trace Urine Blood Negative Urine Nitrate Negative Urine Bilirubin Negative Urine Urobilinogen Normal Ur Leukocyte Esterase Neg Urine WBC (Auto) < 1 Urine RBC (Auto) 1 Ur Transition Epith Cell < 1 Urine Bacteria Rare Urine Osmolality Ur Random Sodium 12/31/16 12/31/16 12/31/16 05:23 06:08 07:02 WBC RBC Hgb Hct MCV MCH MCHC RDW Plt Count MPV Neut % (Auto) Lymph % (Auto) [place] % (Auto) Eos % (Auto) Baso % (Auto) Neut # Lymph # [place] # Eos # Baso # Neutrophils % (Manual) Lymphocytes % (Manual) Reactive Lymphs % Monocytes % (Manual) Eosinophils % (Manual) Basophils % (Manual) Platelet Estimate Plt Clumps, EDTA Hypochromasia (manual) Poikilocytosis (manual Anisocytosis (manual) Ovalocytes [place] Cells Retic Count PT INR APTT pO2 VBG pH VBG pCO2 VBG HCO3 VBG Total CO2 VBG O2 Sat (Calc) VBG Base Excess VBG Potassium Glucose Lactate Sodium 130 L Potassium 4.7 Chloride 92 L Carbon Dioxide 26 Anion Gap 17 BUN 107 H* Creatinine 4.2 H Est GFR ( Amer) 17 Est GFR (Non-Af Amer) 14 POC Glucose (mg/dL) 278 H Random Glucose 230 H Calcium 6.1 L Magnesium Iron TIBC % Saturation Ferritin Total Bilirubin 0.5 AST 18 ALT 27 Alkaline Phosphatase 75 Total Protein 5.0 L Albumin 2.8 L Globulin 2.2 Albumin/Globulin Ratio 1.3 Lipase Vitamin B12 Venous Blood Potassium Urine Color Urine Clarity Urine pH Ur Specific [place] Urine Protein Urine Glucose (UA) Urine Ketones Urine Blood Urine Nitrate Urine Bilirubin Urine Urobilinogen Ur Leukocyte Esterase Urine WBC (Auto) Urine RBC (Auto) Ur Transition Epith Cell Urine Bacteria Urine Osmolality 324 Ur Random Sodium 57 12/31/16 12/31/16 12/31/16 07:02 08:20 10:58 WBC 4.7 L RBC 2.57 L Hgb 7.5 L Hct 22.8 L MCV 89.0 MCH 29.2 MCHC 32.8 L RDW 15.4 H Plt Count 121 L D MPV 9.6 Neut % (Auto) 67.1 Lymph % (Auto) 13.3 L [place] % (Auto) 9.0 Eos % (Auto) 9.7 H Baso % (Auto) 0.9 Neut # 3.1 Lymph # 0.6 L [place] # 0.4 Eos # 0.5 Baso # 0.0 Neutrophils % (Manual) 66 Lymphocytes % (Manual) 15 L Reactive Lymphs % 1 H Monocytes % (Manual) 8 Eosinophils % (Manual) 9 H Basophils % (Manual) 1 Platelet Estimate Slightly decreased L Plt Clumps, EDTA Hypochromasia (manual) Slight Poikilocytosis (manual Slight Anisocytosis (manual) Slight Ovalocytes Slight [place] Cells Slight Retic Count 1.9 H PT INR APTT pO2 VBG pH VBG pCO2 VBG HCO3 VBG Total CO2 VBG O2 Sat (Calc) VBG Base Excess VBG Potassium Glucose Lactate Sodium Potassium Chloride Carbon Dioxide Anion Gap BUN Creatinine Est GFR ( Amer) Est GFR (Non-Af Amer) POC Glucose (mg/dL) 259 H 218 H Random Glucose Calcium Magnesium Iron TIBC % Saturation Ferritin Total Bilirubin AST ALT Alkaline Phosphatase Total Protein Albumin Globulin Albumin/Globulin Ratio Lipase Vitamin B12 Venous Blood Potassium Urine Color Urine Clarity Urine pH Ur Specific [place] Urine Protein Urine Glucose (UA) Urine Ketones Urine Blood Urine Nitrate Urine Bilirubin Urine Urobilinogen Ur Leukocyte Esterase Urine WBC (Auto) Urine RBC (Auto) Ur Transition Epith Cell Urine Bacteria Urine Osmolality Ur Random Sodium 12/31/16 12/31/16 11:39 11:39 WBC RBC Hgb Hct MCV MCH MCHC RDW Plt Count MPV Neut % (Auto) Lymph % (Auto) [place] % (Auto) Eos % (Auto) Baso % (Auto) Neut # Lymph # [place] # Eos # Baso # Neutrophils % (Manual) Lymphocytes % (Manual) Reactive Lymphs % Monocytes % (Manual) Eosinophils % (Manual) Basophils % (Manual) Platelet Estimate Plt Clumps, EDTA Hypochromasia (manual) Poikilocytosis (manual Anisocytosis (manual) Ovalocytes [place] Cells Retic Count PT INR APTT pO2 VBG pH VBG pCO2 VBG HCO3 VBG Total CO2 VBG O2 Sat (Calc) VBG Base Excess VBG Potassium Glucose Lactate Sodium Potassium Chloride Carbon Dioxide Anion Gap BUN Creatinine Est GFR ( Amer) Est GFR (Non-Af Amer) POC Glucose (mg/dL) Random Glucose Calcium Magnesium Iron 18 L TIBC 197 L % Saturation 9 L Ferritin 105.0 Total Bilirubin AST ALT Alkaline Phosphatase Total Protein Albumin Globulin Albumin/Globulin Ratio Lipase Vitamin B12 435 Venous Blood Potassium Urine Color Urine Clarity Urine pH Ur Specific [place] Urine Protein Urine Glucose (UA) Urine Ketones Urine Blood Urine Nitrate Urine Bilirubin Urine Urobilinogen Ur Leukocyte Esterase Urine WBC (Auto) Urine RBC (Auto) Ur Transition Epith Cell Urine Bacteria Urine Osmolality Ur Random Sodium Assessment & Plan - Assessment and Plan (Free Text) Assessment: STEVEN, nonoliguric, severe, differential includes pre-renal due to poor po intake and MOJGAN-I consideration to cholesterol emboli due to atherosclerotic disease and recent instrumentation would also rule out TTP, haptoglobin pending, discussed with Heme, consideration to d/c plavix pt also noted to have stones bilaterally and fullness in collecting system, suggest evaluation needs ivf labs ordered close follow up, possible need for [employer]
[2016-12-31] MEDS: LIPASE/PROTEASE/AMYLASE 4,200 U ECC PO SCH (17:30)
[2016-12-31] MEDS ORDERED: (Novolin R) Insulin Human Regular 100 units/ml vial SC ONE (17:43)
[2016-12-31] MEDS: Oxycodone/Acetaminophen 5/325 mg Tab PO PRN (18:46)
--- NOTE | 2016-12-31 20:12 | CP.PCM.PN ---
Subjective - Date & Time of Evaluation Date of Evaluation: 12/31/16 Time of Evaluation: 11:40 - Subjective Subjective: clinically same Objective - Vital Signs/Intake and Output Vital Signs (last 24 hours): Temp Pulse Resp BP Pulse Ox 98.3 F 73 20 114/63 100 12/31/16 15:10 12/31/16 15:10 12/31/16 15:10 12/31/16 18:45 12/31/16 15:10 - Medications Medications: Current Medications Amlodipine Besylate (Norvasc) 10 mg PO DAILY [facility] Last Admin: 12/31/16 10:38 Dose: 10 mg Aspirin (Aspirin) 325 mg PO DAILY [facility] Last Admin: 12/31/16 10:36 Dose: 325 mg Calcium Carbonate (Tums) 1,000 mg PO TID [facility] Clopidogrel Bisulfate (Plavix) 75 mg PO DAILY [facility] Last Admin: 12/31/16 10:36 Dose: 75 mg Docusate Sodium (Colace) 100 mg PO TID [facility] Last Admin: 12/31/16 18:30 Dose: 100 mg Duloxetine HCl (Cymbalta) 40 mg PO [facility] Ferrous Sulfate (Feosol) 325 mg PO BID [facility] Last Admin: 12/31/16 18:30 Dose: 325 mg Finasteride (Proscar) 5 mg PO DAILY [facility] Last Admin: 12/31/16 10:36 Dose: 5 mg Heparin Sodium (Porcine) (Heparin) 5,000 units SC Q12 [facility] Last Admin: 12/31/16 10:39 Dose: 5,000 units Ceftriaxone Sodium 1 gm/ (Dextrose) 150 mls @ 50 mls/30 min IVPB Q12H [facility] Last Admin: 12/31/16 12:51 Dose: 50 mls/30 min Sodium Chloride (Sodium Chloride 0.9%) 1,000 mls @ 100 mls/hr IV .Q10H [facility] Last Admin: 12/31/16 14:44 Dose: Not Given Insulin Detemir (Levemir) 18 unit SC [facility] Insulin Human Regular (Novolin R) 0 unit SC [facility] PRN Reason: Protocol Last Admin: 12/31/16 17:30 Dose: Not Given Metoprolol Tartrate (Lopressor) 25 mg PO BID [facility] Last Admin: 12/31/16 10:38 Dose: 25 mg Mirtazapine (Remeron) 30 mg PO [facility] Oxycodone/Acetaminophen (Percocet 5/325 Mg Tab) 2 tab PO Q6H PRN PRN Reason: Pain, severe (8-10) Stop: 01/02/17 23:54 Last Admin: 12/31/16 18:46 Dose: 2 tab Pantoprazole Sodium (Protonix Ec Tab) 40 mg PO DAILY [facility] Last Admin: 12/31/16 10:38 Dose: 40 mg Polyethylene Glycol (Miralax) 17 gm PO DAILY PRN PRN Reason: IF NO BM IN 3 DAYS Rosuvastatin Calcium (Crestor) 10 mg PO QPM [facility] Last Admin: 12/31/16 18:31 Dose: 10 mg Saccharomyces Boulardii (Florastor) 250 mg PO BID [facility] Last Admin: 12/31/16 18:31 Dose: 250 mg Tamsulosin HCl (Flomax) 0.4 mg PO DAILY [facility] Last Admin: 12/31/16 10:38 Dose: 0.4 mg - Labs Labs: 12/31/16 07:02 12/31/16 07:02 PT 11.1 SECONDS (9.7-12.2) 12/30/16 19:50 INR 1.0 12/30/16 19:50 APTT 25 SECONDS (21-34) 12/30/16 19:50 - Constitutional Appears: Well - Head Exam Head Exam: ATRAUMATIC, NORMAL INSPECTION, NORMOCEPHALIC - Eye Exam Eye Exam: EOMI, Normal appearance, PERRL Pupil Exam: NORMAL ACCOMODATION, PERRL - ENT Exam ENT Exam: Mucous Membranes Moist, Normal Exam - Neck Exam Neck Exam: Full ROM, Normal Inspection. absent: Lymphadenopathy - Respiratory Exam Respiratory Exam: Decreased Breath Sounds - Cardiovascular Exam Cardiovascular Exam: REGULAR RHYTHM, +S1, +S2 - GI/Abdominal Exam GI & Abdominal Exam: Soft, Diminished Bowel Sounds - Rectal Exam Rectal Exam: Deferred Assessment and Plan (1) Electrolyte imbalance Status: Acute (2) Pancytopenia Status: Acute (3) Renal insufficiency Status: Acute (4) Right groin pain Status: Acute (5) S/P aneurysm repair Status: Acute (6) Hyponatremia Status: Resolved (7) STEVEN (acute kidney injury) Status: Acute (8) Abdominal pain Status: Acute (9) Anemia Status: Acute (10) Bacteremia Status: Acute (11) Carotid stenosis Status: Acute (12) Chronic cholecystitis due to gallbladder calculus with obstruction Status: Acute (13) Claudication Status: Acute (14) Diabetes mellitus, insulin dependent (IDDM), uncontrolled Status: Acute (15) Distal radius fracture, right Status: Acute (16) E coli bacteremia Status: Acute (17) Elevated alkaline phosphatase level Status: Acute (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, right Status: Acute (19) Femoral artery thrombosis, right Status: Acute (20) Hyperglycemia Status: Acute (21) Hypoglycemia Status: Acute (22) Nausea & vomiting Status: Acute (23) PAD (peripheral artery disease) Status: Acute (24) Pancreatitis Status: Acute (25) Prophylactic measure Status: Acute (26) Pseudoaneurysm of femoral artery Status: Acute (27) S/P femoral-popliteal bypass surgery Status: Acute (28) Syncope Status: Acute (29) Vomiting alone Status: Acute (30) CKD (chronic kidney disease) stage 3, GFR 30-59 ml/min Status: Chronic (31) Chronic pancreatitis Status: Chronic (32) Diabetes Status: Chronic (33) Gallstones Status: Chronic (34) History of BPH Status: Chronic (35) History of anemia Status: Chronic (36) History of depression Status: Chronic (37) History of diabetes mellitus Status: Chronic (38) Hypertension Status: Chronic (39) H/O ruptured arterial aneurysm Status: Resolved (40) Hyperkalemia Status: Resolved - Assessment and Plan (Free Text) Plan: Patient examined. Chest X-Ray chest suggestive of focal opacity/nodule at the right upper lobe. CT Scan Head suggestive of moderate chronic white matter ischemic changes and central volume loss on altered from prior exam. Renal Ultrasound suggestive of mild fullness of bilateral renal collecting systems. 1.4 cm right upper renal cyst. Laboratory investigations shows raised RBS, BUN and creatinine. Continue aspirin, clopidogrel, antidiabetic and antihypertensive medications. Continue supportive care.
[2016-12-31] MEDS: Calcium Carbonate 500 mg Chewable Antacid Tab PO SCH (21:35)
--- NOTE | 2016-12-31 22:02 | CP.PCM.CON ---
History of Present Illness - History of Present Illness History of Present Illness: 71 year old male with a history of PVD s/p repair of a femoral aneurysm in 2016 admitted with altered mental status, acute renal failure, and pancytopenia. The patient is currently confused and I am unable to obtain a history from him. He had a near normal creatinine last month and was noted to have deranged labs, prompted his transfer to the hospital. His hgb has nadired at 7.5, plt 121, WBC 4.7. Peripheral smear: toxic granulation in neutrophils, increased eosinophils and lymphocytes, anisopiokilocytosis, many carley cells, occasional schistocyte but not increase, large platelets noted. Past medical, surgical, family, social history cannot be obtained Allergies: NKA Review of systems cannot be obtained. Past Patient History - Infectious Disease Hx of Infectious Diseases: None - Tetanus Immunizations Tetanus Immunization: Unknown - Past Medical History & Family History Past Medical History?: Yes - Past Social History Smoking Status: Heavy Smoker > 10 Cigarettes Daily - CARDIAC Hx Hypertension: Yes - PULMONARY Hx Respiratory Disorders: No - NEUROLOGICAL Hx Vertigo: Yes - HEENT Other/Comment: glasses for reading - RENAL Hx Chronic Kidney Disease: No - ENDOCRINE/METABOLIC Hx Diabetes Mellitus Type 1: Yes - HEMATOLOGICAL/ONCOLOGICAL Hx Anemia: Yes - INTEGUMENTARY Hx Dermatological Problems: No - MUSCULOSKELETAL/RHEUMATOLOGICAL Hx Arthritis: Yes Hx Fractures: Yes (rt wrist) - GASTROINTESTINAL Hx Gall Bladder Disease: Yes Hx Pancreatitis: Yes - GENITOURINARY/GYNECOLOGICAL Hx Prostate Cancer: Yes Hx Prostate Problems: Yes (BPH) - PSYCHIATRIC Hx Depression: Yes Hx Substance Use: No - SURGICAL HISTORY Hx Carotid Endarterectomy: Yes (L CEA) - ANESTHESIA Hx Anesthesia: Yes Hx Anesthesia Reactions: No Hx Malignant Hyperthermia: No Meds Allergies/Adverse Reactions: Allergies Allergy/AdvReac Type Severity Reaction Status Date / Time No Known Allergies Allergy Verified 12/30/16 19:07 - Medications Medications: Current Medications Amlodipine Besylate (Norvasc) 10 mg PO DAILY [facility] Last Admin: 12/31/16 10:38 Dose: 10 mg Aspirin (Aspirin) 325 mg PO DAILY [facility] Last Admin: 12/31/16 10:36 Dose: 325 mg Calcium Carbonate (Tums) 1,000 mg PO TID [facility] Last Admin: 12/31/16 21:35 Dose: 1,000 mg Clopidogrel Bisulfate (Plavix) 75 mg PO DAILY [facility] Last Admin: 12/31/16 10:36 Dose: 75 mg Docusate Sodium (Colace) 100 mg PO TID [facility] Last Admin: 12/31/16 18:30 Dose: 100 mg Duloxetine HCl (Cymbalta) 40 mg PO HS [facility] Last Admin: 12/31/16 21:36 Dose: 40 mg Ferrous Sulfate (Feosol) 325 mg PO BID [facility] Last Admin: 12/31/16 18:30 Dose: 325 mg Finasteride (Proscar) 5 mg PO DAILY [facility] Last Admin: 12/31/16 10:36 Dose: 5 mg Heparin Sodium (Porcine) (Heparin) 5,000 units SC Q12 [facility] Last Admin: 12/31/16 21:38 Dose: 5,000 units Ceftriaxone Sodium 1 gm/ (Dextrose) 150 mls @ 50 mls/30 min IVPB Q12H [facility] Last Admin: 12/31/16 12:51 Dose: 50 mls/30 min Sodium Chloride (Sodium Chloride 0.9%) 1,000 mls @ 100 mls/hr IV .Q10H [facility] Last Admin: 12/31/16 20:44 Dose: 100 mls/hr Insulin Detemir (Levemir) [address] [facility] Insulin Human Regular (Novolin R) 0 unit SC [facility] PRN Reason: Protocol Last Admin: 12/31/16 21:00 Dose: Not Given Metoprolol Tartrate (Lopressor) 25 mg PO BID [facility] Last Admin: 12/31/16 19:00 Dose: 25 mg Mirtazapine (Remeron) [address] [facility] Last Admin: 12/31/16 21:36 Dose: 30 mg Oxycodone/Acetaminophen (Percocet 5/325 Mg Tab) 2 tab PO Q6H PRN PRN Reason: Pain, severe (8-10) Stop: 01/02/17 23:54 Last Admin: 12/31/16 18:46 Dose: 2 tab Pantoprazole Sodium (Protonix Ec Tab) 40 mg PO DAILY [facility] Last Admin: 12/31/16 10:38 Dose: 40 mg Polyethylene Glycol (Miralax) 17 gm PO DAILY PRN PRN Reason: IF NO BM IN 3 DAYS Rosuvastatin Calcium (Crestor) 10 mg PO QPM [facility] Last Admin: 12/31/16 18:31 Dose: 10 mg Saccharomyces Boulardii (Florastor) 250 mg PO BID [facility] Last Admin: 12/31/16 18:31 Dose: 250 mg Tamsulosin HCl (Flomax) 0.4 mg PO DAILY [facility] Last Admin: 12/31/16 10:38 Dose: 0.4 mg Physical Exam - Head Exam Head Exam: ATRAUMATIC - Eye Exam Eye Exam: Normal appearance - ENT Exam ENT Exam: Mucous Membranes Dry - Respiratory Exam Respiratory Exam: NORMAL BREATHING PATTERN - Cardiovascular Exam Cardiovascular Exam: +S1, +S2 - GI/Abdominal Exam GI & Abdominal Exam: Normal Bowel Sounds - Extremities Exam Extremities exam: Positive for: normal inspection - Neurological Exam Neurological exam: Altered - Psychiatric Exam Psychiatric exam: Agitated - Skin Skin Exam: Warm Results - Vital Signs Recent Vital Signs: Last Vital Signs Temp 98.3 F 12/31/16 15:10 Pulse 73 12/31/16 15:10 Resp 20 12/31/16 15:10 BP 110/69 12/31/16 19:00 Pulse Ox 100 12/31/16 15:10 - Labs Result Diagrams: 12/31/16 07:02 12/31/16 07:02 Labs: Laboratory Results - last 24 hr 12/30/16 12/31/16 12/31/16 21:55 05:23 06:08 WBC RBC Hgb Hct MCV MCH MCHC RDW Plt Count MPV Neut % (Auto) Lymph % (Auto) [place] % (Auto) Eos % (Auto) Baso % (Auto) Neut # Lymph # [place] # Eos # Baso # Neutrophils % (Manual) Lymphocytes % (Manual) Reactive Lymphs % Monocytes % (Manual) Eosinophils % (Manual) Basophils % (Manual) Platelet Estimate Plt Clumps, EDTA Hypochromasia (manual) Poikilocytosis (manual Anisocytosis (manual) Ovalocytes [place] Cells Retic Count Sodium Potassium Chloride Carbon Dioxide Anion Gap BUN Creatinine Est GFR ( Amer) Est GFR (Non-Af Amer) POC Glucose (mg/dL) 278 H Random Glucose Calcium Phosphorus Iron TIBC % Saturation Ferritin Total Bilirubin AST ALT Alkaline Phosphatase Total Protein Albumin Globulin Albumin/Globulin Ratio Vitamin B12 Urine Color Yellow Urine Clarity Clear Urine pH 6.0 Ur Specific [place] 1.012 Urine Protein Negative Urine Glucose (UA) Normal Urine Ketones Trace Urine Blood Negative Urine Nitrate Negative Urine Bilirubin Negative Urine Urobilinogen Normal Ur Leukocyte Esterase Neg Urine WBC (Auto) < 1 Urine RBC (Auto) 1 Ur Transition Epith Cell < 1 Urine Bacteria Rare Urine Osmolality 324 Ur Random Sodium 57 Blood Type Antibody Screen 12/31/16 12/31/16 12/31/16 07:02 07:02 08:20 WBC 4.7 L RBC 2.57 L Hgb 7.5 L Hct 22.8 L MCV 89.0 MCH 29.2 MCHC 32.8 L RDW 15.4 H Plt Count 121 L D MPV 9.6 Neut % (Auto) 67.1 Lymph % (Auto) 13.3 L [place] % (Auto) 9.0 Eos % (Auto) 9.7 H Baso % (Auto) 0.9 Neut # 3.1 Lymph # 0.6 L [place] # 0.4 Eos # 0.5 Baso # 0.0 Neutrophils % (Manual) 66 Lymphocytes % (Manual) 15 L Reactive Lymphs % 1 H Monocytes % (Manual) 8 Eosinophils % (Manual) 9 H Basophils % (Manual) 1 Platelet Estimate Slightly decreased L Plt Clumps, EDTA Hypochromasia (manual) Slight Poikilocytosis (manual Slight Anisocytosis (manual) Slight Ovalocytes Slight [place] Cells Slight Retic Count 1.9 H Sodium 130 L Potassium 4.7 Chloride 92 L Carbon Dioxide 26 Anion Gap 17 BUN 107 H* Creatinine 4.2 H Est GFR ( Amer) 17 Est GFR (Non-Af Amer) 14 POC Glucose (mg/dL) 259 H Random Glucose 230 H Calcium 6.1 L Phosphorus Iron TIBC % Saturation Ferritin Total Bilirubin 0.5 AST 18 ALT 27 Alkaline Phosphatase 75 Total Protein 5.0 L Albumin 2.8 L Globulin 2.2 Albumin/Globulin Ratio 1.3 Vitamin B12 Urine Color Urine Clarity Urine pH Ur Specific [place] Urine Protein Urine Glucose (UA) Urine Ketones Urine Blood Urine Nitrate Urine Bilirubin Urine Urobilinogen Ur Leukocyte Esterase Urine WBC (Auto) Urine RBC (Auto) Ur Transition Epith Cell Urine Bacteria Urine Osmolality Ur Random Sodium Blood Type Antibody Screen 12/31/16 12/31/16 12/31/16 10:58 11:39 11:39 WBC RBC Hgb Hct MCV MCH MCHC RDW Plt Count MPV Neut % (Auto) Lymph % (Auto) [place] % (Auto) Eos % (Auto) Baso % (Auto) Neut # Lymph # [place] # Eos # Baso # Neutrophils % (Manual) Lymphocytes % (Manual) Reactive Lymphs % Monocytes % (Manual) Eosinophils % (Manual) Basophils % (Manual) Platelet Estimate Plt Clumps, EDTA Hypochromasia (manual) Poikilocytosis (manual Anisocytosis (manual) Ovalocytes [place] Cells Retic Count Sodium Potassium Chloride Carbon Dioxide Anion Gap BUN Creatinine Est GFR ( Amer) Est GFR (Non-Af Amer) POC Glucose (mg/dL) 218 H Random Glucose Calcium Phosphorus Iron 18 L TIBC 197 L % Saturation 9 L Ferritin 105.0 Total Bilirubin AST ALT Alkaline Phosphatase Total Protein Albumin Globulin Albumin/Globulin Ratio Vitamin B12 435 Urine Color Urine Clarity Urine pH Ur Specific [place] Urine Protein Urine Glucose (UA) Urine Ketones Urine Blood Urine Nitrate Urine Bilirubin Urine Urobilinogen Ur Leukocyte Esterase Urine WBC (Auto) Urine RBC (Auto) Ur Transition Epith Cell Urine Bacteria Urine Osmolality Ur Random Sodium Blood Type Antibody Screen 12/31/16 12/31/16 12/31/16 17:07 17:33 17:33 WBC RBC Hgb Hct MCV MCH MCHC RDW Plt Count MPV Neut % (Auto) Lymph % (Auto) [place] % (Auto) Eos % (Auto) Baso % (Auto) Neut # Lymph # [place] # Eos # Baso # Neutrophils % (Manual) Lymphocytes % (Manual) Reactive Lymphs % Monocytes % (Manual) Eosinophils % (Manual) Basophils % (Manual) Platelet Estimate Plt Clumps, EDTA Hypochromasia (manual) Poikilocytosis (manual Anisocytosis (manual) Ovalocytes [place] Cells Retic Count 1.7 H Sodium Potassium Chloride Carbon Dioxide Anion Gap BUN Creatinine Est GFR ( Amer) Est GFR (Non-Af Amer) POC Glucose (mg/dL) 420 H* Random Glucose Calcium Phosphorus Iron TIBC % Saturation 8 L Ferritin Total Bilirubin AST ALT Alkaline Phosphatase Total Protein Albumin Globulin Albumin/Globulin Ratio Vitamin B12 Urine Color Urine Clarity Urine pH Ur Specific [place] Urine Protein Urine Glucose (UA) Urine Ketones Urine Blood Urine Nitrate Urine Bilirubin Urine Urobilinogen Ur Leukocyte Esterase Urine WBC (Auto) Urine RBC (Auto) Ur Transition Epith Cell Urine Bacteria Urine Osmolality Ur Random Sodium Blood Type Antibody Screen 12/31/16 12/31/16 12/31/16 17:33 17:33 20:44 WBC RBC Hgb Hct MCV MCH MCHC RDW Plt Count MPV Neut % (Auto) Lymph % (Auto) [place] % (Auto) Eos % (Auto) Baso % (Auto) Neut # Lymph # [place] # Eos # Baso # Neutrophils % (Manual) Lymphocytes % (Manual) Reactive Lymphs % Monocytes % (Manual) Eosinophils % (Manual) Basophils % (Manual) Platelet Estimate Plt Clumps, EDTA Hypochromasia (manual) Poikilocytosis (manual Anisocytosis (manual) Ovalocytes [place] Cells Retic Count Sodium Potassium Chloride Carbon Dioxide Anion Gap BUN Creatinine Est GFR ( Amer) Est GFR (Non-Af Amer) POC Glucose (mg/dL) 280 H Random Glucose Calcium Phosphorus 4.1 Iron TIBC % Saturation Ferritin Total Bilirubin AST ALT Alkaline Phosphatase Total Protein Albumin Globulin Albumin/Globulin Ratio Vitamin B12 Urine Color Urine Clarity Urine pH Ur Specific [place] Urine Protein Urine Glucose (UA) Urine Ketones Urine Blood Urine Nitrate Urine Bilirubin Urine Urobilinogen Ur Leukocyte Esterase Urine WBC (Auto) Urine RBC (Auto) Ur Transition Epith Cell Urine Bacteria Urine Osmolality Ur Random Sodium Blood Type O POSITIVE Antibody Screen Negative Assessment & Plan (1) Pancytopenia Assessment and Plan: will check HIV and hepatitis panel; ?infection consider abdominal ultrasound ? splenomegaly anemia work up suggests a hypoproliferative erythroid response; no current evidence of hemolysis. reevaluation of peripheral smear PRN, f/u haptoglobin normal iron, b12, folate stores transfusion support PRN Thank you for this interesting consult. Status: Acute
[2016-12-31] MEDS: Insulin Detemir 100 units/ml Vial (Levemir) SC SCH (22:30)
[2017-01-01 07:30] LABS: EOS # 0.3 K/uL (0.0-0.7); LYMPH # 0.5 K/uL (1.0-4.3); MEAN PLATELET VOLUME 9.4 fL (7.2-11.7)
[2017-01-01 07:41] LABS: POTASSIUM 4.1 mmol/L (3.6-5.2)
[2017-01-01 07:43] LABS: ALB/GLOB RATIO 1.2 (1.0-2.1); BILIRUBIN,TOTAL 0.4 mg/dL (0.2-1.3); TOTAL PROTEIN 5.3 g/dL (6.3-8.3)
[2017-01-01 07:44] LABS: CALCIUM 7.7 mg/dl (8.6-10.4)
[2017-01-01 07:52] LABS: EOS % 9.2 % (0.0-4.0); HEMATOCRIT 22.3 % (35.0-51.0); LYMPH % 13.3 % (20.0-40.0); MEAN CELL VOLUME 89.1 fL (80.0-94.0); MEAN CORPUSCULAR HEMOGLOBIN 29.5 pg (27.0-31.0); MEAN CORPUSCULAR HGB CONC 33.1 g/dL (33.0-37.0); MONO # 0.4 K/uL (0.0-0.8); MONO % 9.7 % (0.0-10.0); RED CELL DISTRIBUTION WIDTH 15.1 % (11.5-14.5); WHITE BLOOD COUNT 3.7 K/uL (4.8-10.8)
[2017-01-01 07:54] LABS: RBC URINE < 1 /hpf (0-3); URINE BILIRUBIN NEGATIVE (NEGATIVE); URINE BLOOD NEGATIVE (NEGATIVE); URINE COLOR Straw (YELLOW); URINE GLUCOSE (UA) 1+ mg/dL (Normal); URINE KETONE NEGATIVE (NEGATIVE); URINE LEUKOCYTE ESTERASE NEG Leu/uL (Negative); URINE PROTEIN NEGATIVE (NEGATIVE); URINE UROBILINOGEN NORMAL mg/dL (0.2-1.0)
[2017-01-01] MEDS: (Novolin R) Insulin Human Regular 100 units/ml vial SC SCH ×4 (08:36→21:51)
[2017-01-01] MEDS: LIPASE/PROTEASE/AMYLASE 4,200 U ECC PO SCH ×3 (08:37→17:27)
[2017-01-01] MEDS ORDERED: Influenza Vaccine 60 mcg/0.5 mL SYR (4YR UP) IM ONE (10:00)
[2017-01-01] MEDS ORDERED: Pneumococcal 23-Valent Vaccine IM ONE ×2 (10:00→14:00)
--- NOTE | 2017-01-01 10:05 | CP.PCM.PN ---
Subjective - Date & Time of Evaluation Date of Evaluation: 01/01/17 Time of Evaluation: 10:02 - Subjective Subjective: More alert Eating better UO not recorded Creat decreased to 2.7 from >5 No new complaint TSAT only 8% Objective - Vital Signs/Intake and Output Vital Signs (last 24 hours): Temp Pulse Resp BP Pulse Ox 97.9 F 84 17 116/67 97 01/01/17 07:15 01/01/17 07:15 01/01/17 07:15 01/01/17 07:15 01/01/17 07:15 Intake and Output: 01/01/17 01/01/17 06:59 18:59 Intake Total 1280 Output Total 300 Balance 980 - Medications Medications: Current Medications Amlodipine Besylate (Norvasc) 10 mg PO DAILY [facility] Last Admin: 12/31/16 10:38 Dose: 10 mg Aspirin (Aspirin) 325 mg PO DAILY [facility] Last Admin: 12/31/16 10:36 Dose: 325 mg Calcium Carbonate (Tums) 1,000 mg PO TID [facility] Last Admin: 12/31/16 21:35 Dose: 1,000 mg Clopidogrel Bisulfate (Plavix) 75 mg PO DAILY [facility] Last Admin: 12/31/16 10:36 Dose: 75 mg Docusate Sodium (Colace) 100 mg PO TID [facility] Last Admin: 12/31/16 18:30 Dose: 100 mg Duloxetine HCl (Cymbalta) 40 mg PO HS [facility] Last Admin: 12/31/16 21:36 Dose: 40 mg Ferrous Sulfate (Feosol) 325 mg PO BID [facility] Last Admin: 12/31/16 18:30 Dose: 325 mg Finasteride (Proscar) 5 mg PO DAILY [facility] Last Admin: 12/31/16 10:36 Dose: 5 mg Heparin Sodium (Porcine) (Heparin) 5,000 units SC Q12 [facility] Last Admin: 12/31/16 21:38 Dose: 5,000 units Ceftriaxone Sodium 1 gm/ (Dextrose) 150 mls @ 50 mls/30 min IVPB Q12H [facility] Last Admin: 12/31/16 22:54 Dose: 50 mls/30 min Sodium Chloride (Sodium Chloride 0.9%) 1,000 mls @ 100 mls/hr IV .Q10H [facility] Last Admin: 12/31/16 20:44 Dose: 100 mls/hr Insulin Detemir (Levemir) 18 unit SC [facility] Last Admin: 12/31/16 22:30 Dose: 18 unit Insulin Human Regular (Novolin R) 0 unit SC [facility] PRN Reason: Protocol Last Admin: 01/01/17 08:36 Dose: 2 unit Metoprolol Tartrate (Lopressor) 25 mg PO BID [facility] Last Admin: 12/31/16 19:00 Dose: 25 mg Mirtazapine (Remeron) 30 mg PO [facility] Last Admin: 12/31/16 21:36 Dose: 30 mg Oxycodone/Acetaminophen (Percocet 5/325 Mg Tab) 2 tab PO Q6H PRN PRN Reason: Pain, severe (8-10) Stop: 01/02/17 23:54 Last Admin: 12/31/16 18:46 Dose: 2 tab Pantoprazole Sodium (Protonix Ec Tab) 40 mg PO DAILY [facility] Last Admin: 12/31/16 10:38 Dose: 40 mg Polyethylene Glycol (Miralax) 17 gm PO DAILY PRN PRN Reason: IF NO BM IN 3 DAYS Rosuvastatin Calcium (Crestor) 10 mg PO QPM [facility] Last Admin: 12/31/16 18:31 Dose: 10 mg Saccharomyces Boulardii (Florastor) 250 mg PO BID [facility] Last Admin: 12/31/16 18:31 Dose: 250 mg Tamsulosin HCl (Flomax) 0.4 mg PO DAILY [facility] Last Admin: 12/31/16 10:38 Dose: 0.4 mg - Labs Labs: 01/01/17 07:11 01/01/17 07:11 PT 11.1 SECONDS (9.7-12.2) 12/30/16 19:50 INR 1.0 12/30/16 19:50 APTT 25 SECONDS (21-34) 12/30/16 19:50 - Constitutional Appears: No Acute Distress, Chronically Ill - Head Exam Head Exam: ATRAUMATIC, NORMAL INSPECTION - Eye Exam Eye Exam: EOMI, Normal appearance - Neck Exam Neck Exam: Normal Inspection. absent: Tenderness - Respiratory Exam Respiratory Exam: Clear to Ausculation Bilateral, NORMAL BREATHING PATTERN - Cardiovascular Exam Cardiovascular Exam: REGULAR RHYTHM, +S1 - GI/Abdominal Exam GI & Abdominal Exam: Soft. absent: Tenderness - Extremities Exam Extremities Exam: Normal Inspection. absent: Tenderness - Neurological Exam Neurological Exam: Awake, CN II-XII Intact - Skin Skin Exam: Dry, Warm Assessment and Plan (1) Hyponatremia Status: Acute (2) STEVEN (acute kidney injury) Status: Acute (3) Pseudoaneurysm of femoral artery Status: Acute - Assessment and Plan (Free Text) Plan: Continue IV fluids IV FE/ check stool OB serial chemistries Avoid KYE I
[2017-01-01] MEDS: Ferric Sodium Gluconat Complex 62.5 mg/5 ml Vial IVPB SCH (10:46)
[2017-01-01] MEDS: Sodium Chloride 0.9% 1,000 ML IV SCH (10:46)
[2017-01-01] MEDS: Saccharomyces Boulardi 250 mg Cap PO SCH ×2 (10:48→17:26)
[2017-01-01] MEDS: Calcium Carbonate 500 mg Chewable Antacid Tab PO SCH ×3 (10:48→17:25)
[2017-01-01] MEDS: Pantoprazole 40 mg EC Tab PO SCH (10:48)
[2017-01-01] MEDS: WATER IVPB SCH (13:41)
[2017-01-01] MEDS: CEFTRIAXONE IVPB SCH (13:41)
[2017-01-01] MEDS: DEXTROSE 5% IVPB SCH (13:41)
[2017-01-01] MEDS: DEXTROS IVPB SCH (13:41)
[2017-01-01] MEDS: Oxycodone/Acetaminophen 5/325 mg Tab PO PRN ×2 (14:01→22:00)
--- NOTE | 2017-01-01 15:37 | CP.PCM.PN ---
Subjective - Date & Time of Evaluation Date of Evaluation: 01/01/17 Time of Evaluation: 11:00 - Subjective Subjective: clinically same Objective - Vital Signs/Intake and Output Vital Signs (last 24 hours): Temp Pulse Resp BP Pulse Ox 97.9 F 84 17 116/67 97 01/01/17 07:15 01/01/17 07:15 01/01/17 07:15 01/01/17 10:49 01/01/17 07:15 Intake and Output: 01/01/17 01/01/17 06:59 18:59 Intake Total 1280 Output Total 300 Balance 980 - Medications Medications: Current Medications Amlodipine Besylate (Norvasc) 10 mg PO DAILY [facility] Last Admin: 01/01/17 10:48 Dose: 10 mg Aspirin (Aspirin) 325 mg PO DAILY [facility] Last Admin: 01/01/17 10:48 Dose: 325 mg Calcium Carbonate (Tums) 1,000 mg PO TID [facility] Last Admin: 01/01/17 14:05 Dose: 1,000 mg Clopidogrel Bisulfate (Plavix) 75 mg PO DAILY [facility] Last Admin: 01/01/17 10:48 Dose: 75 mg Docusate Sodium (Colace) 100 mg PO TID [facility] Last Admin: 01/01/17 14:23 Dose: Not Given Duloxetine HCl (Cymbalta) 40 mg PO [facility] Last Admin: 12/31/16 21:36 Dose: 40 mg Ferric Sodium Gluconate Complex (Ferrlecit) 125 mg IVPB DAILY [facility] Stop: 01/09/17 10:16 Last Admin: 01/01/17 10:46 Dose: 125 mg Finasteride (Proscar) 5 mg PO DAILY [facility] Last Admin: 01/01/17 10:50 Dose: 5 mg Heparin Sodium (Porcine) (Heparin) 5,000 units SC Q12 [facility] Last Admin: 12/31/16 21:38 Dose: 5,000 units Ceftriaxone Sodium 1 gm/ (Dextrose) 150 mls @ 50 mls/30 min IVPB Q12H [facility] Last Admin: 01/01/17 13:41 Dose: 50 mls/30 min Sodium Chloride (Sodium Chloride 0.9%) 1,000 mls @ 100 mls/hr IV .Q10H [facility] Last Admin: 01/01/17 10:46 Dose: 100 mls/hr Insulin Detemir (Levemir) 18 unit SC [facility] Last Admin: 12/31/16 22:30 Dose: 18 unit Insulin Human Regular (Novolin R) 0 unit SC [facility] PRN Reason: Protocol Last Admin: 01/01/17 08:36 Dose: 2 unit Metoprolol Tartrate (Lopressor) 25 mg PO BID [facility] Last Admin: 01/01/17 10:49 Dose: 25 mg Mirtazapine (Remeron) 30 mg PO HS [facility] Last Admin: 12/31/16 21:36 Dose: 30 mg Oxycodone/Acetaminophen (Percocet 5/325 Mg Tab) 2 tab PO Q6H PRN PRN Reason: Pain, severe (8-10) Stop: 01/02/17 23:54 Last Admin: 01/01/17 14:01 Dose: 2 tab Pantoprazole Sodium (Protonix Ec Tab) 40 mg PO DAILY [facility] Last Admin: 01/01/17 10:48 Dose: 40 mg Polyethylene Glycol (Miralax) 17 gm PO DAILY PRN PRN Reason: IF NO BM IN 3 DAYS Rosuvastatin Calcium (Crestor) 10 mg PO QPM [facility] Last Admin: 12/31/16 18:31 Dose: 10 mg Saccharomyces Boulardii (Florastor) 250 mg PO BID [facility] Last Admin: 01/01/17 10:48 Dose: 250 mg Tamsulosin HCl (Flomax) 0.4 mg PO DAILY [facility] Last Admin: 01/01/17 10:50 Dose: 0.4 mg - Labs Labs: 01/01/17 07:11 01/01/17 07:11 PT 11.1 SECONDS (9.7-12.2) 12/30/16 19:50 INR 1.0 12/30/16 19:50 APTT 25 SECONDS (21-34) 12/30/16 19:50 - Constitutional Appears: Well - Head Exam Head Exam: ATRAUMATIC, NORMAL INSPECTION, NORMOCEPHALIC - Eye Exam Eye Exam: EOMI, Normal appearance, PERRL Pupil Exam: NORMAL ACCOMODATION, PERRL - ENT Exam ENT Exam: Mucous Membranes Moist, Normal Exam - Neck Exam Neck Exam: Full ROM, Normal Inspection. absent: Lymphadenopathy - Respiratory Exam Respiratory Exam: Decreased Breath Sounds - Cardiovascular Exam Cardiovascular Exam: REGULAR RHYTHM, +S1, +S2 - GI/Abdominal Exam GI & Abdominal Exam: Soft, Diminished Bowel Sounds - Rectal Exam Rectal Exam: Deferred Assessment and Plan (1) Electrolyte imbalance Status: Acute (2) Pancytopenia Status: Acute (3) Renal insufficiency Status: Acute (4) Right groin pain Status: Acute (5) S/P aneurysm repair Status: Acute (6) Hyponatremia Status: Resolved (7) STEVEN (acute kidney injury) Status: Acute (8) Abdominal pain Status: Acute (9) Anemia Status: Acute (10) Bacteremia Status: Acute (11) Carotid stenosis Status: Acute (12) Chronic cholecystitis due to gallbladder calculus with obstruction Status: Acute (13) Claudication Status: Acute (14) Diabetes mellitus, insulin dependent (IDDM), uncontrolled Status: Acute (15) Distal radius fracture, right Status: Acute (16) E coli bacteremia Status: Acute (17) Elevated alkaline phosphatase level Status: Acute (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, right Status: Acute (19) Femoral artery thrombosis, right Status: Acute (20) Hyperglycemia Status: Acute (21) Hypoglycemia Status: Acute (22) Nausea & vomiting Status: Acute (23) PAD (peripheral artery disease) Status: Acute (24) Pancreatitis Status: Acute (25) Prophylactic measure Status: Acute (26) Pseudoaneurysm of femoral artery Status: Acute (27) S/P femoral-popliteal bypass surgery Status: Acute (28) Syncope Status: Acute (29) Vomiting alone Status: Acute (30) CKD (chronic kidney disease) stage 3, GFR 30-59 ml/min Status: Chronic (31) Chronic pancreatitis Status: Chronic (32) Diabetes Status: Chronic (33) Gallstones Status: Chronic (34) History of BPH Status: Chronic (35) History of anemia Status: Chronic (36) History of depression Status: Chronic (37) History of diabetes mellitus Status: Chronic (38) Hypertension Status: Chronic (39) H/O ruptured arterial aneurysm Status: Resolved (40) Hyperkalemia Status: Resolved - Assessment and Plan (Free Text) Plan: Patient examined. Patient eating better. Creatinine is reduced to 2.7. Continue aspirin, clopidogrel. Continue ceftriaxone. Continue antihypertensive and antidiabetic medications. Continue supportive care.
--- NOTE | 2017-01-01 16:52 | CP.PCM.PN ---
<Abhinav Macedo - Last Filed: 01/01/17 16:58> Subjective - Date & Time of Evaluation Date of Evaluation: 01/01/17 Time of Evaluation: 16:50 - Subjective Subjective: Progress note. Attending: Dr. Santana. Pt seen and examined at bedside. No acute distress. No events overnight. No fevers, chills, vomiting, diarrhea, cp, sob. Objective - Vital Signs/Intake and Output Vital Signs (last 24 hours): Temp Pulse Resp BP Pulse Ox 97.1 F L 73 20 120/68 98 01/01/17 15:54 01/01/17 15:54 01/01/17 15:54 01/01/17 15:54 01/01/17 15:54 Intake and Output: 01/01/17 01/01/17 06:59 18:59 Intake Total 1280 Output Total 300 Balance 980 - Medications Medications: Current Medications Amlodipine Besylate (Norvasc) 10 mg PO DAILY [facility] Last Admin: 01/01/17 10:48 Dose: 10 mg Aspirin (Aspirin) 325 mg PO DAILY [facility] Last Admin: 01/01/17 10:48 Dose: 325 mg Calcium Carbonate (Tums) 1,000 mg PO TID [facility] Last Admin: 01/01/17 14:05 Dose: 1,000 mg Clopidogrel Bisulfate (Plavix) 75 mg PO DAILY [facility] Last Admin: 01/01/17 10:48 Dose: 75 mg Docusate Sodium (Colace) 100 mg PO TID [facility] Last Admin: 01/01/17 14:23 Dose: Not Given Duloxetine HCl (Cymbalta) 40 mg PO HS [facility] Last Admin: 12/31/16 21:36 Dose: 40 mg Ferric Sodium Gluconate Complex (Ferrlecit) 125 mg IVPB DAILY [facility] Stop: 01/09/17 10:16 Last Admin: 01/01/17 10:46 Dose: 125 mg Finasteride (Proscar) 5 mg PO DAILY [facility] Last Admin: 01/01/17 10:50 Dose: 5 mg Heparin Sodium (Porcine) (Heparin) 5,000 units SC Q12 [facility] Last Admin: 12/31/16 21:38 Dose: 5,000 units Ceftriaxone Sodium 1 gm/ (Dextrose) 150 mls @ 50 mls/30 min IVPB Q12H [facility] Last Admin: 01/01/17 13:41 Dose: 50 mls/30 min Sodium Chloride (Sodium Chloride 0.9%) 1,000 mls @ 100 mls/hr IV .Q10H [facility] Last Admin: 01/01/17 10:46 Dose: 100 mls/hr Ceftriaxone Sodium (Rocephin Iv 1 Gm Duplex) 50 mls @ 100 mls/hr IVPB Q12H [facility] Insulin Detemir (Levemir) 18 unit SC HS [facility] Last Admin: 12/31/16 22:30 Dose: 18 unit Insulin Human Regular (Novolin R) 0 unit SC ACHS [facility] PRN Reason: Protocol Last Admin: 01/01/17 08:36 Dose: 2 unit Metoprolol Tartrate (Lopressor) 25 mg PO BID [facility] Last Admin: 01/01/17 10:49 Dose: 25 mg Mirtazapine (Remeron) 30 mg PO [facility] Last Admin: 12/31/16 21:36 Dose: 30 mg Oxycodone/Acetaminophen (Percocet 5/325 Mg Tab) 2 tab PO Q6H PRN PRN Reason: Pain, severe (8-10) Stop: 01/02/17 23:54 Last Admin: 01/01/17 14:01 Dose: 2 tab Pantoprazole Sodium (Protonix Ec Tab) 40 mg PO DAILY [facility] Last Admin: 01/01/17 10:48 Dose: 40 mg Polyethylene Glycol (Miralax) 17 gm PO DAILY PRN PRN Reason: IF NO BM IN 3 DAYS Rosuvastatin Calcium (Crestor) 10 mg PO QPM [facility] Last Admin: 12/31/16 18:31 Dose: 10 mg Saccharomyces Boulardii (Florastor) 250 mg PO BID [facility] Last Admin: 01/01/17 10:48 Dose: 250 mg Tamsulosin HCl (Flomax) 0.4 mg PO DAILY [facility] Last Admin: 01/01/17 10:50 Dose: 0.4 mg - Labs Labs: 01/01/17 07:11 01/01/17 07:11 PT 11.1 SECONDS (9.7-12.2) 12/30/16 19:50 INR 1.0 12/30/16 19:50 APTT 25 SECONDS (21-34) 12/30/16 19:50 - Constitutional Appears: Non-toxic, No Acute Distress - Head Exam Head Exam: ATRAUMATIC, NORMAL INSPECTION - Eye Exam Eye Exam: EOMI - ENT Exam ENT Exam: Mucous Membranes Moist - Neck Exam Neck Exam: Full ROM, Normal Inspection - Respiratory Exam Respiratory Exam: NORMAL BREATHING PATTERN. absent: Respiratory Distress - Cardiovascular Exam Cardiovascular Exam: +S1, +S2 - GI/Abdominal Exam GI & Abdominal Exam: Soft, Normal Bowel Sounds. absent: Tenderness - Extremities Exam Extremities Exam: Full ROM, Normal Inspection - Neurological Exam Neurological Exam: Alert, Awake, Oriented x3 - Psychiatric Exam Psychiatric exam: Normal Affect, Normal Mood - Skin Skin Exam: Dry, Intact, Normal Color, Warm Assessment and Plan - Assessment and Plan (Free Text) Assessment: This is a 71 yo male with 1. Acute kidney failure -Admitted with BUN/Cr: 115/5.1 -No prior history of kidney disease -given 1L NS in ER -100ml/hr NS -Nephrology consult - Dr. Blood - help appreciated -renal ultrasound shows mild fullness of renal collecting system, renal cyst 2. Anemia -normocytic -Ferrous sulfate 325 mg PO daily -F/U iron, TIBC, ferritin, retic count, B12, folate, stool occult blood 3. Altered mental status -Unsteady on his feet -Does not remember falling but patient is a poor historian -F/U Head CT>>> chronic white matter ischemic changes; no acute pathology ( please see full report) 4. Depression -Cymbalta 40mg PO HS -Remeron 30mg PO HS 5. HTN -Norvasc 10mg PO daily -Lisinopril 10mg PO daily -Metoprolol 25mg PO BID 6. Hx of CAD with stent 2016 -Cardiac cath 09/21/[address] Mccoy - nonobstructive LAD, LCX and right coronary lesions (please see full report) -Cardiac Cath 11/24/16 - stents placed; no report found -ASA 81mg PO daily -Plavix 75mg PO daily 7. Hyperlipidemia -Crestor 10mg PO QPM 8. Hx of DM -Levemir 18u SC HS -ISS -Monitor Accuchecks 9. hx of s/p femoral artery pseudoaneurysm rupture and repair -November [address] Lorenzo -Discharge back to [facility] when ready 10. Hx of BPH -Flomax 0.4mg PO daily -Proscar 5mg PO daily 11. GI/DVT ppx -Protonix 40mg PO daily -Heparin 5000U SC Q12 -Miralax 17gm PO daily PRN if no BM in 3 days All medical management per Dr. Jacky Santana <Андрей Santana S - Last Filed: 01/06/17 12:42> Objective - Vital Signs/Intake and Output Vital Signs (last 24 hours): Temp Pulse Resp BP Pulse Ox 97.5 F L 69 18 132/72 100 01/06/17 07:05 01/06/17 07:05 01/06/17 07:05 01/06/17 07:05 01/06/17 07:05 Intake and Output: 01/06/17 01/06/17 06:59 18:59 Intake Total 1800 Output Total 500 Balance 1300 - Labs Labs: 01/04/17 07:30 01/06/17 06:15 PT 11.1 SECONDS (9.7-12.2) 12/30/16 19:50 INR 1.0 12/30/16 19:50 APTT 25 SECONDS (21-34) 12/30/16 19:50 Assessment and Plan (1) Electrolyte imbalance Status: Acute (2) Pancytopenia Status: Acute (3) Renal insufficiency Status: Acute (4) Right groin pain Status: Acute (5) S/P aneurysm repair Status: Acute (6) Hyponatremia Status: Resolved (7) STEVEN (acute kidney injury) Status: Acute (8) Abdominal pain Status: Acute (9) Anemia Status: Acute (10) Bacteremia Status: Acute (11) Carotid stenosis Status: Acute (12) Chronic cholecystitis due to gallbladder calculus with obstruction Status: Acute (13) Claudication Status: Acute (14) Diabetes mellitus, insulin dependent (IDDM), uncontrolled Status: Acute (15) Distal radius fracture, right Status: Acute (16) E coli bacteremia Status: Acute (17) Elevated alkaline phosphatase level Status: Acute (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, right Status: Acute (19) Femoral artery thrombosis, right Status: Acute (20) Hyperglycemia Status: Acute (21) Hypoglycemia Status: Acute (22) Nausea & vomiting Status: Acute (23) PAD (peripheral artery disease) Status: Acute (24) Pancreatitis Status: Acute (25) Prophylactic measure Status: Acute (26) Pseudoaneurysm of femoral artery Status: Acute (27) S/P femoral-popliteal bypass surgery Status: Acute (28) Syncope Status: Acute (29) Vomiting alone Status: Acute (30) CKD (chronic kidney disease) stage 3, GFR 30-59 ml/min Status: Chronic (31) Chronic pancreatitis Status: Chronic (32) Diabetes Status: Chronic (33) Gallstones Status: Chronic (34) History of BPH Status: Chronic (35) History of anemia Status: Chronic (36) History of depression Status: Chronic (37) History of diabetes mellitus Status: Chronic (38) Hypertension Status: Chronic Attending/Attestation - Attestation I have personally seen and examined this patient.: Yes I have fully participated in the care of the patient.: Yes I have reviewed all pertinent clinical information, including history, physical exam and plan: Yes Notes (Text): Patient examined. No acute distress. Continue aspirin, clopidogrel, ceftriaxone. Continue antihypertensive and antidiabetic medications. Continue supportive care.
--- NOTE | 2017-01-01 20:03 | CP.PCM.PN ---
Subjective - Date & Time of Evaluation Date of Evaluation: 01/01/17 Time of Evaluation: 15:40 - Subjective Subjective: No complaints, appears more alert Objective - Vital Signs/Intake and Output Vital Signs (last 24 hours): Temp Pulse Resp BP Pulse Ox 97.1 F L 64 20 130/78 98 01/01/17 15:54 01/01/17 16:00 01/01/17 15:54 01/01/17 17:26 01/01/17 15:54 - Medications Medications: Current Medications Amlodipine Besylate (Norvasc) 10 mg PO DAILY [facility] Last Admin: 01/01/17 10:48 Dose: 10 mg Calcium Carbonate (Tums) 1,000 mg PO TID [facility] Last Admin: 01/01/17 17:25 Dose: 1,000 mg Docusate Sodium (Colace) 100 mg PO TID [facility] Last Admin: 01/01/17 17:26 Dose: 100 mg Duloxetine HCl (Cymbalta) 40 mg PO [facility] Last Admin: 12/31/16 21:36 Dose: 40 mg Ferric Sodium Gluconate Complex (Ferrlecit) 125 mg IVPB DAILY [facility] Stop: 01/09/17 10:16 Last Admin: 01/01/17 10:46 Dose: 125 mg Finasteride (Proscar) 5 mg PO DAILY [facility] Last Admin: 01/01/17 10:50 Dose: 5 mg Heparin Sodium (Porcine) (Heparin) 5,000 units SC Q12 [facility] Last Admin: 12/31/16 21:38 Dose: 5,000 units Ceftriaxone Sodium 1 gm/ (Dextrose) 150 mls @ 50 mls/30 min IVPB Q12H [facility] Last Admin: 01/01/17 13:41 Dose: 50 mls/30 min Sodium Chloride (Sodium Chloride 0.9%) 1,000 mls @ 100 mls/hr IV .Q10H [facility] Last Admin: 01/01/17 10:46 Dose: 100 mls/hr Ceftriaxone Sodium (Rocephin Iv 1 Gm Duplex) 50 mls @ 100 mls/hr IVPB Q12H [facility] Insulin Detemir (Levemir) 18 unit SC [facility] Last Admin: 12/31/16 22:30 Dose: 18 unit Insulin Human Regular (Novolin R) 0 unit SC [facility] PRN Reason: Protocol Last Admin: 01/01/17 17:26 Dose: 5 unit Metoprolol Tartrate (Lopressor) 25 mg PO BID [facility] Last Admin: 01/01/17 17:26 Dose: 25 mg Mirtazapine (Remeron) 30 mg PO HS [facility] Last Admin: 12/31/16 21:36 Dose: 30 mg Oxycodone/Acetaminophen (Percocet 5/325 Mg Tab) 2 tab PO Q6H PRN PRN Reason: Pain, severe (8-10) Stop: 01/02/17 23:54 Last Admin: 01/01/17 14:01 Dose: 2 tab Pantoprazole Sodium (Protonix Ec Tab) 40 mg PO DAILY [facility] Last Admin: 01/01/17 10:48 Dose: 40 mg Polyethylene Glycol (Miralax) 17 gm PO DAILY PRN PRN Reason: IF NO BM IN 3 DAYS Rosuvastatin Calcium (Crestor) 10 mg PO QPM [facility] Last Admin: 12/31/16 18:31 Dose: 10 mg Saccharomyces Boulardii (Florastor) 250 mg PO BID [facility] Last Admin: 01/01/17 17:26 Dose: 250 mg Tamsulosin HCl (Flomax) 0.4 mg PO DAILY [facility] Last Admin: 01/01/17 10:50 Dose: 0.4 mg - Labs Labs: 01/01/17 07:11 01/01/17 07:11 PT 11.1 SECONDS (9.7-12.2) 12/30/16 19:50 INR 1.0 12/30/16 19:50 APTT 25 SECONDS (21-34) 12/30/16 19:50 - Head Exam Head Exam: ATRAUMATIC - Eye Exam Eye Exam: Normal appearance - ENT Exam ENT Exam: Mucous Membranes Dry - Respiratory Exam Respiratory Exam: NORMAL BREATHING PATTERN - Cardiovascular Exam Cardiovascular Exam: +S1, +S2 - GI/Abdominal Exam GI & Abdominal Exam: Normal Bowel Sounds Assessment and Plan (1) Pancytopenia Assessment & Plan: hepatitis and HIV panel negative transfusion support PRN will consider bone marrow evaluation when mental status improved Status: Acute
[2017-01-01] MEDS: Insulin Detemir 100 units/ml Vial (Levemir) SC SCH (21:53)
[2017-01-02] MEDS: Sodium Chloride 0.9% 1,000 ML IV SCH ×2 (00:07→21:31)
[2017-01-02] MEDS: WATER IVPB SCH (00:11)
[2017-01-02] MEDS: DEXTROSE 5% IVPB SCH (00:11)
[2017-01-02] MEDS: DEXTROS IVPB SCH (00:11)
[2017-01-02] MEDS: CEFTRIAXONE IVPB SCH (00:11)
[2017-01-02] MEDS: cefTRIAXone IV 1 gm in Dextros 50 ML IVPB SCH ×2 (01:40→13:42)
[2017-01-02] MEDS ORDERED: Dextrose 50% SYRINGE Inj (50 ml) IV STA (07:03)
[2017-01-02] MEDS ORDERED: Dextrose 50% SYRINGE Inj (50 ml) ONE (07:07)
[2017-01-02 08:26] LABS: BASO % 0.6 % (0.0-2.0); EOS # 0.2 K/uL (0.0-0.7); EOS % 6.3 % (0.0-4.0); HEMATOCRIT 23.3 % (35.0-51.0); LYMPH # 0.5 K/uL (1.0-4.3); LYMPH % 12.9 % (20.0-40.0); MEAN CELL VOLUME 89.5 fL (80.0-94.0); MEAN CORPUSCULAR HEMOGLOBIN 29.9 pg (27.0-31.0); MEAN CORPUSCULAR HGB CONC 33.5 g/dL (33.0-37.0); MEAN PLATELET VOLUME 9.2 fL (7.2-11.7); MONO # 0.3 K/uL (0.0-0.8); MONO % 6.9 % (0.0-10.0); RED CELL DISTRIBUTION WIDTH 15.1 % (11.5-14.5); WHITE BLOOD COUNT 3.8 K/uL (4.8-10.8)
[2017-01-02 08:48] LABS: POTASSIUM 3.8 mmol/L (3.6-5.2)
[2017-01-02 08:50] LABS: ALB/GLOB RATIO 1.1 (1.0-2.1); BILIRUBIN,TOTAL 0.4 mg/dL (0.2-1.3); TOTAL PROTEIN 5.4 g/dL (6.3-8.3)
[2017-01-02 08:51] LABS: CALCIUM 7.8 mg/dl (8.6-10.4); MAGNESIUM 1.3 mg/dL (1.6-2.3); PHOSPHOROUS 3.4 mg/dL (2.5-4.5)
[2017-01-02] MEDS: Saccharomyces Boulardi 250 mg Cap PO SCH ×2 (10:01→17:25)
[2017-01-02] MEDS: Pantoprazole 40 mg EC Tab PO SCH (10:02)
[2017-01-02] MEDS: Ferric Sodium Gluconat Complex 62.5 mg/5 ml Vial IVPB SCH (10:03)
[2017-01-02] MEDS: (Novolin R) Insulin Human Regular 100 units/ml vial SC SCH ×4 (10:05→21:31)
[2017-01-02] MEDS: LIPASE/PROTEASE/AMYLASE 4,200 U ECC PO SCH ×3 (10:06→17:24)
[2017-01-02] MEDS: Calcium Carbonate 500 mg Chewable Antacid Tab PO SCH ×4 (10:07→17:21)
--- NOTE | 2017-01-02 11:39 | PCM.PSYCH ---
Initial Psychiatric Evaluation - Initial Psychiatric Evaluation Type of Admission: Voluntary Legal Status: Capacity Chief Complaint (in patient's own words): "I don't feel great" History of Present Illness and Precipitating Events: Psych consult requested Pt. is seen, chart reviewed, case discussed This is a 71 year old male sent in from [facility] for abnormal labs and decreased appetite for the past 4 days. Patient is status post femoral artery pseudoaneurysm rupture and repair approximately one month ago. Patient is somewhat confused but is able to answer most questions appropriately. Patient is unsure why he is here, has not verbalized any complaints at this time. Upon admission patient knows it is 2016 and said "I would guess I am in a hospital but I am not sure." Patient was talking about me being in the [facility] and that he knows I am trying to convince him it is December but it might not really be. He also said every resident was "thrown out of my snf as though they were making atomic bombs." He had many tangential and delusional thoughts. I tried to get consent from his brother but he was not answering the phone. Upon seeing patient bedside on 01/02/2017 he is calm and appears in no acute distress. Patient states he is tired and has a headache. Otherwise he states he is okay, just tired of being asked so many questions. Patient is oriented to person, place, time and situation as of 2:01 pm 01/02/2017. Current Medications: Active Medications Generic Name Dose Route Start Last Admin Trade Name Freq PRN Reason Stop Dose Admin Amlodipine Besylate 10 mg 12/31/16 10:00 01/02/17 10:02 Norvasc PO 10 mg DAILY [facility] Administration Calcium Carbonate 1,000 mg 12/31/16 18:00 01/02/17 10:16 Tums PO 1,000 mg TID [facility] Administration Docusate Sodium 100 mg 12/31/16 10:00 01/02/17 10:02 Colace PO 100 mg TID [facility] Administration Duloxetine HCl 40 mg 12/31/16 22:00 01/01/17 21:52 Cymbalta PO 40 mg HS [facility] Administration Ferric Sodium Gluconate Complex 125 mg 01/01/17 10:15 01/02/17 10:03 Ferrlecit IVPB 01/09/17 10:16 125 mg DAILY [facility] Administration Finasteride 5 mg 12/31/16 10:00 01/02/17 10:03 Proscar PO 5 mg DAILY [facility] Administration Heparin Sodium (Porcine) 5,000 units 12/31/16 10:00 01/02/17 10:02 Heparin SC 5,000 units Q12 [facility] Administration Sodium Chloride 1,000 mls @ 100 mls/hr 12/30/16 23:45 01/02/17 00:07 Sodium Chloride 0.9% IV 100 mls/hr .Q10H [facility] Administration Ceftriaxone Sodium 50 mls @ 100 mls/hr 01/02/17 02:00 01/02/17 01:40 Rocephin Iv 1 Gm Duplex IVPB 100 mls/hr Q12H [facility] Administration Insulin Detemir 18 unit 12/31/16 22:00 01/01/17 21:53 Levemir SC 18 unit HS [facility] Administration Insulin Human Regular 0 unit 12/31/16 07:30 01/02/17 10:05 Novolin R SC Not Given ACHS [facility] Protocol Metoprolol Tartrate 25 mg 12/31/16 10:00 01/02/17 10:03 Lopressor PO 25 mg BID [facility] Administration Mirtazapine 30 mg 12/31/16 22:00 01/01/17 21:53 Remeron PO 30 mg HS [facility] Administration Oxycodone/Acetaminophen 2 tab 12/30/16 23:53 01/01/17 22:00 Percocet 5/325 Mg Tab PO 01/02/17 23:54 2 tab Q6H PRN Administration Pain, severe (8-10) Pantoprazole Sodium 40 mg 12/31/16 10:00 01/02/17 10:02 Protonix Ec Tab PO 40 mg DAILY [facility] Administration Polyethylene Glycol 17 gm 12/30/16 23:53 Miralax PO DAILY PRN IF NO BM IN 3 DAYS Rosuvastatin Calcium 10 mg 12/31/16 18:00 01/01/17 21:53 Crestor PO 10 mg QPM [facility] Administration Saccharomyces Boulardii 250 mg 12/31/16 10:00 01/02/17 10:01 Florastor PO 250 mg BID [facility] Administration Tamsulosin HCl 0.4 mg 12/31/16 10:00 01/02/17 10:01 Flomax PO 0.4 mg DAILY [facility] Administration Past Psychiatric History - Past Psychiatric History Previous Treatment History: None Pertinent Medical Hx (Current Medical&Sleep Prob, Allergies): Allergies Allergy/AdvReac Type Severity Reaction Status Date / Time No Known Allergies Allergy Verified 12/30/16 19:07 DULoxetine [Cymbalta] 40 mg PO HS #30 ecc 10/13/16 Ferrous Sulfate [Feosol] 325 mg PO BID #60 tab 10/13/16 Finasteride [Proscar] 5 mg PO DAILY #30 tab 10/13/16 Fluticasone Nasal [Flonase] 2 spray [facility] DAILY #120 actuation 10/13/16 Mirtazapine [Remeron] 30 mg PO HS #30 tab 10/13/16 Tamsulosin [Flomax] 0.4 mg PO DAILY #30 tab 10/13/16 amLODIPine [Norvasc] 10 mg PO DAILY #30 tab 10/13/16 Clopidogrel [Plavix] 75 mg PO DAILY #30 tab 10/28/16 Aspirin 325 mg PO DAILY tab 12/11/16 Docusate [Colace] 100 mg PO TID cap 12/11/16 Famotidine [Pepcid] 20 mg PO BID tab 12/11/16 Insulin Detemir [Levemir] 18 unit SC HS unit 12/11/16 Insulin Human Regular [Novolin R] 0 unit SC ACHS unit 12/11/16 Lipase/Protease/Amylase [[place] Dr 24,000 Units Capsule] 2 tab PO TID #60 tab Lisinopril [Zestril] 10 mg PO DAILY tab 12/11/16 Metoprolol Tartrate [Lopressor] 25 mg PO BID tab 12/11/16 Ondansetron [Zofran Inj] 4 mg IVP Q6H PRN vial 12/11/16 Polyethylene Glycol 3350 [Miralax] 17 gm PO DAILY PRN packet 12/11/16 Rosuvastatin Calcium [Crestor] 10 mg PO QPM tab 12/11/16 Saccharomyces Boulardi [Florastor] 250 mg PO BID cap 12/11/16 oxyCODONE/Acetaminophen [Percocet 5/325 mg Tab] 2 tab PO Q6H PRN tab 12/11/16 Review of Systems - Review of Systems All systems: reviewed and no additional remarkable complaints except - Psychiatric Psychiatric: Abnormal Sleep Pattern, Confusion. absent: Hallucinations, Suicidal Ideation Mental Status Examination - Personal Presentation Personal Presentation: Looks stated age - Affect Affect: Broad - Motor Activity Motor Activity: Calm - Reliability in Providing Information Reliability in Providing Information: Fair - Speech Speech: Organized, Tangential - Mood Mood: Anxious - Formal Thought Process Formal Thought Process: Delusions - Obsessions/Compulsions Obsessions: No Compulsions: No - Cognitive Functions Orientation: Person, Place, Situation, Time Sensorium: Alert Attention/Concentration: Attentive Abstract Thinking: Winslow Estimate of Intelligence: Average Judgement: Imparied, as evidence by: Lack of insight into illness, Intact, as evidence by: Good judgement Memory: Recent intact, as evidence by: Ability to recall events of the day, Remote intact, as evidenced by: Abilit to recall sig. life events - Risk Risk: Falls, Diminished functioning - Strength & Assets Inventory Strength & Assets Inventory: Intelligence, Cooperative DSM 5 DX - DSM 5 DSM 5 Diagnosis: Delirium Rule out Early-onset dementia - Recommended/Plan of Treatment Treatment Recommendations and Plan of Treatment: Delirium Rule out Early-onset dementia Patient psychiatrically stable. Will follow up later - Smoking Cessation Smoking Cessation Initiated: No
--- NOTE | 2017-01-02 11:50 | CP.PCM.PN ---
Subjective - Date & Time of Evaluation Date of Evaluation: 01/02/17 Time of Evaluation: 11:00 - Subjective Subjective: Has trouble swallowing and tooth pain. Objective - Vital Signs/Intake and Output Vital Signs (last 24 hours): Temp Pulse Resp BP Pulse Ox 97.4 F L 66 20 173/77 H 100 01/02/17 08:01 01/02/17 08:01 01/02/17 08:01 01/02/17 10:03 01/02/17 08:01 Intake and Output: 01/02/17 01/02/17 06:59 18:59 Intake Total 2220 50 Output Total 2200 Balance 20 50 - Medications Medications: Current Medications Amlodipine Besylate (Norvasc) 10 mg PO DAILY [facility] Last Admin: 01/02/17 10:02 Dose: 10 mg Calcium Carbonate (Tums) 1,000 mg PO TID [facility] Last Admin: 01/02/17 10:16 Dose: 1,000 mg Docusate Sodium (Colace) 100 mg PO TID [facility] Last Admin: 01/02/17 10:02 Dose: 100 mg Duloxetine HCl (Cymbalta) 40 mg PO [facility] Last Admin: 01/01/17 21:52 Dose: 40 mg Ferric Sodium Gluconate Complex (Ferrlecit) 125 mg IVPB DAILY [facility] Stop: 01/09/17 10:16 Last Admin: 01/02/17 10:03 Dose: 125 mg Finasteride (Proscar) 5 mg PO DAILY [facility] Last Admin: 01/02/17 10:03 Dose: 5 mg Heparin Sodium (Porcine) (Heparin) 5,000 units SC Q12 [facility] Last Admin: 01/02/17 10:02 Dose: 5,000 units Sodium Chloride (Sodium Chloride 0.9%) 1,000 mls @ 100 mls/hr IV .Q10H [facility] Last Admin: 01/02/17 00:07 Dose: 100 mls/hr Ceftriaxone Sodium (Rocephin Iv 1 Gm Duplex) 50 mls @ 100 mls/hr IVPB Q12H [facility] Last Admin: 01/02/17 01:40 Dose: 100 mls/hr Insulin Detemir (Levemir) 18 unit SC [facility] Last Admin: 01/01/17 21:53 Dose: 18 unit Insulin Human Regular (Novolin R) 0 unit SC [facility] PRN Reason: Protocol Last Admin: 01/02/17 10:05 Dose: Not Given Metoprolol Tartrate (Lopressor) 25 mg PO BID [facility] Last Admin: 01/02/17 10:03 Dose: 25 mg Mirtazapine (Remeron) 30 mg PO HS [facility] Last Admin: 01/01/17 21:53 Dose: 30 mg Oxycodone/Acetaminophen (Percocet 5/325 Mg Tab) 2 tab PO Q6H PRN PRN Reason: Pain, severe (8-10) Stop: 01/02/17 23:54 Last Admin: 01/01/17 22:00 Dose: 2 tab Pantoprazole Sodium (Protonix Ec Tab) 40 mg PO DAILY [facility] Last Admin: 01/02/17 10:02 Dose: 40 mg Polyethylene Glycol (Miralax) 17 gm PO DAILY PRN PRN Reason: IF NO BM IN 3 DAYS Rosuvastatin Calcium (Crestor) 10 mg PO QPM [facility] Last Admin: 01/01/17 21:53 Dose: 10 mg Saccharomyces Boulardii (Florastor) 250 mg PO BID [facility] Last Admin: 01/02/17 10:01 Dose: 250 mg Tamsulosin HCl (Flomax) 0.4 mg PO DAILY [facility] Last Admin: 01/02/17 10:01 Dose: 0.4 mg - Labs Labs: 01/02/17 08:15 01/02/17 08:15 PT 11.1 SECONDS (9.7-12.2) 12/30/16 19:50 INR 1.0 12/30/16 19:50 APTT 25 SECONDS (21-34) 12/30/16 19:50 - Head Exam Head Exam: ATRAUMATIC - Eye Exam Eye Exam: Normal appearance - ENT Exam ENT Exam: Mucous Membranes Dry - Respiratory Exam Respiratory Exam: NORMAL BREATHING PATTERN - Cardiovascular Exam Cardiovascular Exam: +S1, +S2 - GI/Abdominal Exam GI & Abdominal Exam: Normal Bowel Sounds Assessment and Plan (1) Pancytopenia Assessment & Plan: will add monoclonal protein work up may require bone marrow biopsy once more oriented transfusion support PRN Status: Acute
--- NOTE | 2017-01-02 13:27 | CP.PCM.PN ---
Subjective - Date & Time of Evaluation Date of Evaluation: 01/02/17 Time of Evaluation: 13:25 - Subjective Subjective: Awake, confused BP moderately elevated Creat decreasing slowly- 1.9 no SOB, CPs, dysuria Objective - Vital Signs/Intake and Output Vital Signs (last 24 hours): Temp Pulse Resp BP Pulse Ox 97.4 F L 66 20 173/77 H 100 01/02/17 08:01 01/02/17 08:01 01/02/17 08:01 01/02/17 10:03 01/02/17 08:01 Intake and Output: 01/02/17 01/02/17 06:59 18:59 Intake Total 2220 50 Output Total 2200 Balance 20 50 - Medications Medications: Current Medications Amlodipine Besylate (Norvasc) 10 mg PO DAILY [facility] Last Admin: 01/02/17 10:02 Dose: 10 mg Calcium Carbonate (Tums) 1,000 mg PO TID [facility] Last Admin: 01/02/17 10:16 Dose: 1,000 mg Docusate Sodium (Colace) 100 mg PO TID [facility] Last Admin: 01/02/17 10:02 Dose: 100 mg Duloxetine HCl (Cymbalta) 40 mg PO [facility] Last Admin: 01/01/17 21:52 Dose: 40 mg Ferric Sodium Gluconate Complex (Ferrlecit) 125 mg IVPB DAILY [facility] Stop: 01/09/17 10:16 Last Admin: 01/02/17 10:03 Dose: 125 mg Finasteride (Proscar) 5 mg PO DAILY [facility] Last Admin: 01/02/17 10:03 Dose: 5 mg Heparin Sodium (Porcine) (Heparin) 5,000 units SC Q12 [facility] Last Admin: 01/02/17 10:02 Dose: 5,000 units Sodium Chloride (Sodium Chloride 0.9%) 1,000 mls @ 100 mls/hr IV .Q10H [facility] Last Admin: 01/02/17 00:07 Dose: 100 mls/hr Ceftriaxone Sodium (Rocephin Iv 1 Gm Duplex) 50 mls @ 100 mls/hr IVPB Q12H [facility] Last Admin: 01/02/17 01:40 Dose: 100 mls/hr Insulin Detemir (Levemir) 18 unit SC [facility] Last Admin: 01/01/17 21:53 Dose: 18 unit Insulin Human Regular (Novolin R) 0 unit SC ACHS [facility] PRN Reason: Protocol Last Admin: 01/02/17 10:05 Dose: Not Given Metoprolol Tartrate (Lopressor) 25 mg PO BID [facility] Last Admin: 01/02/17 10:03 Dose: 25 mg Mirtazapine (Remeron) 30 mg PO HS [facility] Last Admin: 01/01/17 21:53 Dose: 30 mg Oxycodone/Acetaminophen (Percocet 5/325 Mg Tab) 2 tab PO Q6H PRN PRN Reason: Pain, severe (8-10) Stop: 01/02/17 23:54 Last Admin: 01/01/17 22:00 Dose: 2 tab Pantoprazole Sodium (Protonix Ec Tab) 40 mg PO DAILY [facility] Last Admin: 01/02/17 10:02 Dose: 40 mg Polyethylene Glycol (Miralax) 17 gm PO DAILY PRN PRN Reason: IF NO BM IN 3 DAYS Rosuvastatin Calcium (Crestor) 10 mg PO QPM [facility] Last Admin: 01/01/17 21:53 Dose: 10 mg Saccharomyces Boulardii (Florastor) 250 mg PO BID [facility] Last Admin: 01/02/17 10:01 Dose: 250 mg Tamsulosin HCl (Flomax) 0.4 mg PO DAILY [facility] Last Admin: 01/02/17 10:01 Dose: 0.4 mg - Labs Labs: 01/02/17 08:15 01/02/17 08:15 PT 11.1 SECONDS (9.7-12.2) 12/30/16 19:50 INR 1.0 12/30/16 19:50 APTT 25 SECONDS (21-34) 12/30/16 19:50 - Constitutional Appears: No Acute Distress, Chronically Ill - Head Exam Head Exam: ATRAUMATIC, NORMAL INSPECTION - Eye Exam Eye Exam: EOMI, Normal appearance - Neck Exam Neck Exam: Normal Inspection. absent: Tenderness - Respiratory Exam Respiratory Exam: Clear to Ausculation Bilateral, NORMAL BREATHING PATTERN - Cardiovascular Exam Cardiovascular Exam: REGULAR RHYTHM, +S1 - GI/Abdominal Exam GI & Abdominal Exam: Soft, Tenderness - Extremities Exam Extremities Exam: Normal Inspection. absent: Tenderness - Neurological Exam Neurological Exam: Alert, CN II-XII Intact - Skin Skin Exam: Dry, Warm Assessment and Plan (1) Hyponatremia Status: Acute (2) STEVEN (acute kidney injury) Status: Acute (3) Pseudoaneurysm of femoral artery Status: Acute - Assessment and Plan (Free Text) Plan: Continue to monitor renal function, lytes Continue IV Fe Adjust BP meds
--- NOTE | 2017-01-02 13:48 | CP.PCM.PN ---
<Abhinav Macedo - Last Filed: 01/02/17 13:50> Subjective - Date & Time of Evaluation Date of Evaluation: 01/02/17 Time of Evaluation: 13:45 - Subjective Subjective: Progress note. Attending: Dr. Santana. Patient seen and examined at bedside. No acute distress. HGB improved from yesterday. Pt is AO x 2. Psych workup in progress. Patient has no complaints. No fevers, chills, vomiting, diarrhea. Objective - Vital Signs/Intake and Output Vital Signs (last 24 hours): Temp Pulse Resp BP Pulse Ox 97.4 F L 66 20 173/77 H 100 01/02/17 08:01 01/02/17 08:01 01/02/17 08:01 01/02/17 10:03 01/02/17 08:01 Intake and Output: 01/02/17 01/02/17 06:59 18:59 Intake Total 2220 50 Output Total 2200 Balance 20 50 - Medications Medications: Current Medications Amlodipine Besylate (Norvasc) 10 mg PO DAILY [facility] Last Admin: 01/02/17 10:02 Dose: 10 mg Calcium Carbonate (Tums) 1,000 mg PO TID [facility] Last Admin: 01/02/17 13:42 Dose: 1,000 mg Docusate Sodium (Colace) 100 mg PO TID [facility] Last Admin: 01/02/17 13:42 Dose: 100 mg Duloxetine HCl (Cymbalta) 40 mg PO HS [facility] Last Admin: 01/01/17 21:52 Dose: 40 mg Ferric Sodium Gluconate Complex (Ferrlecit) 125 mg IVPB DAILY [facility] Stop: 01/09/17 10:16 Last Admin: 01/02/17 10:03 Dose: 125 mg Finasteride (Proscar) 5 mg PO DAILY [facility] Last Admin: 01/02/17 10:03 Dose: 5 mg Heparin Sodium (Porcine) (Heparin) 5,000 units SC Q12 [facility] Last Admin: 01/02/17 10:02 Dose: 5,000 units Sodium Chloride (Sodium Chloride 0.9%) 1,000 mls @ 100 mls/hr IV .Q10H [facility] Last Admin: 01/02/17 00:07 Dose: 100 mls/hr Ceftriaxone Sodium (Rocephin Iv 1 Gm Duplex) 50 mls @ 100 mls/hr IVPB Q12H [facility] Last Admin: 01/02/17 13:42 Dose: 100 mls/hr Insulin Detemir (Levemir) 18 unit SC [facility] Last Admin: 01/01/17 21:53 Dose: 18 unit Insulin Human Regular (Novolin R) 0 unit SC [facility] PRN Reason: Protocol Last Admin: 01/02/17 13:37 Dose: 3 unit Metoprolol Tartrate (Lopressor) 50 mg PO BID [facility] Mirtazapine (Remeron) 30 mg PO [facility] Last Admin: 01/01/17 21:53 Dose: 30 mg Oxycodone/Acetaminophen (Percocet 5/325 Mg Tab) 2 tab PO Q6H PRN PRN Reason: Pain, severe (8-10) Stop: 01/02/17 23:54 Last Admin: 01/01/17 22:00 Dose: 2 tab Pantoprazole Sodium (Protonix Ec Tab) 40 mg PO DAILY [facility] Last Admin: 01/02/17 10:02 Dose: 40 mg Polyethylene Glycol (Miralax) 17 gm PO DAILY PRN PRN Reason: IF NO BM IN 3 DAYS Rosuvastatin Calcium (Crestor) 10 mg PO QPM [facility] Last Admin: 01/01/17 21:53 Dose: 10 mg Saccharomyces Boulardii (Florastor) 250 mg PO BID [facility] Last Admin: 01/02/17 10:01 Dose: 250 mg Tamsulosin HCl (Flomax) 0.4 mg PO DAILY [facility] Last Admin: 01/02/17 10:01 Dose: 0.4 mg - Labs Labs: 01/02/17 08:15 01/02/17 08:15 PT 11.1 SECONDS (9.7-12.2) 12/30/16 19:50 INR 1.0 12/30/16 19:50 APTT 25 SECONDS (21-34) 12/30/16 19:50 - Constitutional Appears: Non-toxic, No Acute Distress, Unkempt - Head Exam Head Exam: ATRAUMATIC, NORMAL INSPECTION, NORMOCEPHALIC - Eye Exam Eye Exam: EOMI - ENT Exam ENT Exam: Mucous Membranes Moist - Neck Exam Neck Exam: Full ROM, Normal Inspection - Respiratory Exam Respiratory Exam: NORMAL BREATHING PATTERN. absent: Respiratory Distress - Cardiovascular Exam Cardiovascular Exam: +S1, +S2 - GI/Abdominal Exam GI & Abdominal Exam: Soft, Tenderness, Normal Bowel Sounds. absent: Guarding, Rigid - Extremities Exam Extremities Exam: Full ROM, Normal Inspection - Back Exam Back Exam: NORMAL INSPECTION - Neurological Exam Neurological Exam: Alert, Awake, Oriented x3 - Psychiatric Exam Psychiatric exam: Normal Affect, Normal Mood - Skin Skin Exam: Dry, Intact, Normal Color, Warm Assessment and Plan - Assessment and Plan (Free Text) Assessment: This is a 71 yo male with 1. Acute kidney failure -Admitted with BUN/Cr: 115/5.1 -No prior history of kidney disease -given 1L NS in ER -100ml/hr NS -Nephrology consult - Dr. Blood - help appreciated -renal ultrasound shows mild fullness of renal collecting system, renal cyst -creatinine is improving 2. Anemia -normocytic -Ferrous sulfate 325 mg PO daily -stool occult blood pending -HGB is improving -may ultimately need bone marrow biopsy -monoclonal proteins pending 3. Altered mental status -Unsteady on his feet -Does not remember falling but patient is a poor historian -F/U Head CT>>> chronic white matter ischemic changes; no acute pathology ( please see full report) -psych consult. Dr. Wolff. recs appreciated. 4. Depression -Cymbalta 40mg PO HS -Remeron 30mg PO HS 5. HTN -Norvasc 10mg PO daily -Lisinopril 10mg PO daily -Metoprolol 25mg PO BID 6. Hx of CAD with stent 2016 -Cardiac cath 09/21/[address] Mccoy - nonobstructive LAD, LCX and right coronary lesions (please see full report) -Cardiac Cath 11/24/16 - stents placed; no report found -aspirin and plavix have been discontinued because of low HGB 7. Hyperlipidemia -Crestor 10mg PO QPM 8. Hx of DM -Levemir 18u SC HS -ISS -Monitor Accuchecks 9. hx of s/p femoral artery pseudoaneurysm rupture and repair -November [address] Lorenzo -Discharge back to [facility] when ready 10. Hx of BPH -Flomax 0.4mg PO daily -Proscar 5mg PO daily 11. GI/DVT ppx -Protonix 40mg PO daily -Heparin 5000U SC Q12 -Miralax 17gm PO daily PRN if no BM in 3 days All medical management per Dr. Jacky Santana <MaxАндрей S - Last Filed: 01/06/17 12:42> Objective - Vital Signs/Intake and Output Vital Signs (last 24 hours): Temp Pulse Resp BP Pulse Ox 97.5 F L 69 18 132/72 100 01/06/17 07:05 01/06/17 07:05 01/06/17 07:05 01/06/17 07:05 01/06/17 07:05 Intake and Output: 01/06/17 01/06/17 06:59 18:59 Intake Total 1800 Output Total 500 Balance 1300 - Labs Labs: 01/04/17 07:30 01/06/17 06:15 PT 11.1 SECONDS (9.7-12.2) 12/30/16 19:50 INR 1.0 12/30/16 19:50 APTT 25 SECONDS (21-34) 12/30/16 19:50 Assessment and Plan (1) Electrolyte imbalance Status: Acute (2) Pancytopenia Status: Acute (3) Renal insufficiency Status: Acute (4) Right groin pain Status: Acute (5) S/P aneurysm repair Status: Acute (6) Hyponatremia Status: Resolved (7) STEVEN (acute kidney injury) Status: Acute (8) Abdominal pain Status: Acute (9) Anemia Status: Acute (10) Bacteremia Status: Acute (11) Carotid stenosis Status: Acute (12) Chronic cholecystitis due to gallbladder calculus with obstruction Status: Acute (13) Claudication Status: Acute (14) Diabetes mellitus, insulin dependent (IDDM), uncontrolled Status: Acute (15) Distal radius fracture, right Status: Acute (16) E coli bacteremia Status: Acute (17) Elevated alkaline phosphatase level Status: Acute (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, right Status: Acute (19) Femoral artery thrombosis, right Status: Acute (20) Hyperglycemia Status: Acute (21) Hypoglycemia Status: Acute (22) Nausea & vomiting Status: Acute (23) PAD (peripheral artery disease) Status: Acute (24) Pancreatitis Status: Acute (25) Prophylactic measure Status: Acute (26) Pseudoaneurysm of femoral artery Status: Acute (27) S/P femoral-popliteal bypass surgery Status: Acute (28) Syncope Status: Acute (29) Vomiting alone Status: Acute (30) CKD (chronic kidney disease) stage 3, GFR 30-59 ml/min Status: Chronic (31) Chronic pancreatitis Status: Chronic (32) Diabetes Status: Chronic (33) Gallstones Status: Chronic (34) History of BPH Status: Chronic (35) History of anemia Status: Chronic (36) History of depression Status: Chronic (37) History of diabetes mellitus Status: Chronic (38) Hypertension Status: Chronic Attending/Attestation - Attestation I have personally seen and examined this patient.: Yes I have fully participated in the care of the patient.: Yes I have reviewed all pertinent clinical information, including history, physical exam and plan: Yes Notes (Text): Patient examined. Hemoglobin is improved. Patient clinically better. Continue ceftriaxone. Antihypertensive and antidiabetic medications. Supportive care.
[2017-01-02] MEDS: Oxycodone/Acetaminophen 5/325 mg Tab PO PRN (18:13)
[2017-01-02] MEDS: Insulin Detemir 100 units/ml Vial (Levemir) SC SCH (21:30)
--- NOTE | 2017-01-02 21:36 | CP.PCM.PN ---
Subjective - Date & Time of Evaluation Date of Evaluation: 01/02/17 Time of Evaluation: 21:30 - Subjective Subjective: clinically same. Objective - Vital Signs/Intake and Output Vital Signs (last 24 hours): Temp Pulse Resp BP Pulse Ox 98.0 F 75 20 122/84 100 01/02/17 15:10 01/02/17 15:10 01/02/17 15:10 01/02/17 15:10 01/02/17 15:10 Intake and Output: 01/02/17 01/03/17 18:59 06:59 Intake Total 50 Balance 50 - Medications Medications: Current Medications Amlodipine Besylate (Norvasc) 10 mg PO DAILY [facility] Last Admin: 01/02/17 10:02 Dose: 10 mg Calcium Carbonate (Tums) 1,000 mg PO TID [facility] Last Admin: 01/02/17 17:21 Dose: 1,000 mg Docusate Sodium (Colace) 100 mg PO TID [facility] Last Admin: 01/02/17 17:22 Dose: 100 mg Duloxetine HCl (Cymbalta) 40 mg PO [facility] Last Admin: 01/02/17 21:29 Dose: 40 mg Ferric Sodium Gluconate Complex (Ferrlecit) 125 mg IVPB DAILY [facility] Stop: 01/09/17 10:16 Last Admin: 01/02/17 10:03 Dose: 125 mg Finasteride (Proscar) 5 mg PO DAILY [facility] Last Admin: 01/02/17 10:03 Dose: 5 mg Heparin Sodium (Porcine) (Heparin) 5,000 units SC Q12 [facility] Last Admin: 01/02/17 21:30 Dose: 5,000 units Sodium Chloride (Sodium Chloride 0.9%) 1,000 mls @ 100 mls/hr IV .Q10H [facility] Last Admin: 01/02/17 21:31 Dose: Not Given Ceftriaxone Sodium (Rocephin Iv 1 Gm Duplex) 50 mls @ 100 mls/hr IVPB Q12H [facility] Last Admin: 01/02/17 13:42 Dose: 100 mls/hr Insulin Detemir (Levemir) 18 unit SC [facility] Last Admin: 01/02/17 21:30 Dose: 18 unit Insulin Human Regular (Novolin R) 0 unit SC [facility] PRN Reason: Protocol Last Admin: 01/02/17 21:31 Dose: Not Given Metoprolol Tartrate (Lopressor) 50 mg PO BID [facility] Last Admin: 01/02/17 17:23 Dose: 50 mg Mirtazapine (Remeron) 30 mg PO HS [facility] Last Admin: 01/02/17 21:29 Dose: 30 mg Oxycodone/Acetaminophen (Percocet 5/325 Mg Tab) 2 tab PO Q6H PRN PRN Reason: Pain, severe (8-10) Stop: 01/02/17 23:54 Last Admin: 01/02/17 18:13 Dose: 2 tab Pantoprazole Sodium (Protonix Ec Tab) 40 mg PO DAILY [facility] Last Admin: 01/02/17 10:02 Dose: 40 mg Polyethylene Glycol (Miralax) 17 gm PO DAILY PRN PRN Reason: IF NO BM IN 3 DAYS Rosuvastatin Calcium (Crestor) 10 mg PO QPM [facility] Last Admin: 01/02/17 17:23 Dose: 10 mg Saccharomyces Boulardii (Florastor) 250 mg PO BID [facility] Last Admin: 01/02/17 17:25 Dose: 250 mg Tamsulosin HCl (Flomax) 0.4 mg PO DAILY [facility] Last Admin: 01/02/17 10:01 Dose: 0.4 mg - Labs Labs: 01/02/17 08:15 01/02/17 08:15 PT 11.1 SECONDS (9.7-12.2) 12/30/16 19:50 INR 1.0 12/30/16 19:50 APTT 25 SECONDS (21-34) 12/30/16 19:50 - Constitutional Appears: Well - Head Exam Head Exam: ATRAUMATIC, NORMAL INSPECTION, NORMOCEPHALIC - Eye Exam Eye Exam: EOMI, Normal appearance, PERRL Pupil Exam: NORMAL ACCOMODATION, PERRL - ENT Exam ENT Exam: Mucous Membranes Moist, Normal Exam - Neck Exam Neck Exam: Full ROM, Normal Inspection. absent: Lymphadenopathy - Respiratory Exam Respiratory Exam: Decreased Breath Sounds - Cardiovascular Exam Cardiovascular Exam: REGULAR RHYTHM, +S1, +S2. absent: Murmur - GI/Abdominal Exam GI & Abdominal Exam: Soft, Normal Bowel Sounds. absent: Tenderness - Rectal Exam Rectal Exam: Deferred Assessment and Plan (1) Electrolyte imbalance Status: Acute (2) Pancytopenia Status: Acute (3) Renal insufficiency Status: Acute (4) Right groin pain Status: Acute (5) S/P aneurysm repair Status: Acute (6) Hyponatremia Status: Resolved (7) STEVEN (acute kidney injury) Status: Acute (8) Abdominal pain Status: Acute (9) Anemia Status: Acute (10) Bacteremia Status: Acute (11) Carotid stenosis Status: Acute (12) Chronic cholecystitis due to gallbladder calculus with obstruction Status: Acute (13) Claudication Status: Acute (14) Diabetes mellitus, insulin dependent (IDDM), uncontrolled Status: Acute (15) Distal radius fracture, right Status: Acute (16) E coli bacteremia Status: Acute (17) Elevated alkaline phosphatase level Status: Acute (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, right Status: Acute (19) Femoral artery thrombosis, right Status: Acute (20) Hyperglycemia Status: Acute (21) Hypoglycemia Status: Acute (22) Nausea & vomiting Status: Acute (23) PAD (peripheral artery disease) Status: Acute (24) Pancreatitis Status: Acute (25) Prophylactic measure Status: Acute (26) Pseudoaneurysm of femoral artery Status: Acute (27) S/P femoral-popliteal bypass surgery Status: Acute (28) Syncope Status: Acute (29) Vomiting alone Status: Acute (30) CKD (chronic kidney disease) stage 3, GFR 30-59 ml/min Status: Chronic (31) Chronic pancreatitis Status: Chronic (32) Diabetes Status: Chronic (33) Gallstones Status: Chronic (34) History of BPH Status: Chronic (35) History of anemia Status: Chronic (36) History of depression Status: Chronic (37) History of diabetes mellitus Status: Chronic (38) Hypertension Status: Chronic - Assessment and Plan (Free Text) Plan: Patient examined. Patient clinically the same. Continue ceftriaxone. Continue antihypertensive and antidiabetic medications. Continue supportive care.
[2017-01-03] MEDS: Sodium Chloride 0.9% 1,000 ML IV SCH ×2 (00:37→17:50)
[2017-01-03] MEDS ORDERED: Oxycodone/Acetaminophen 5/325 mg Tab PO ONE (01:25)
[2017-01-03] MEDS: cefTRIAXone IV 1 gm in Dextros 50 ML IVPB SCH ×2 (01:52→14:46)
[2017-01-03 07:37] LABS: CHLORIDE 106 mmol/L (98-107); SODIUM 137 mmol/L (132-148)
[2017-01-03 07:38] LABS: POTASSIUM 4.2 mmol/L (3.6-5.2)
[2017-01-03 07:40] LABS: ALKALINE PHOSPHATASE 74 U/L (38-126); AST/SGOT 14 U/L (17-59); BILIRUBIN,TOTAL 0.4 mg/dL (0.2-1.3); BLOOD UREA NITROGEN 28 mg/dL (9-20); CARBON DIOXIDE 23 mmol/L (22-30); GFR AFRICAN-AMERICAN > 60; GLUCOSE,RANDOM 78 mg/dL (75-110); PHOSPHOROUS 3.3 mg/dL (2.5-4.5); TOTAL PROTEIN 5.6 g/dL (6.3-8.3)
[2017-01-03 07:41] LABS: ALT/SGPT 24 U/L (21-72); CALCIUM 8.1 mg/dl (8.6-10.4); MAGNESIUM 1.3 mg/dL (1.6-2.3)
[2017-01-03 07:43] LABS: ALB/GLOB RATIO 1.2 (1.0-2.1)
[2017-01-03] MEDS: (Novolin R) Insulin Human Regular 100 units/ml vial SC SCH ×4 (07:49→21:46)
[2017-01-03] MEDS: LIPASE/PROTEASE/AMYLASE 4,200 U ECC PO SCH ×3 (09:17→17:49)
[2017-01-03] MEDS: Ferric Sodium Gluconat Complex 62.5 mg/5 ml Vial IVPB SCH (10:22)
[2017-01-03] MEDS: Saccharomyces Boulardi 250 mg Cap PO SCH ×2 (10:23→17:55)
--- NOTE | 2017-01-03 10:54 | CP.PCM.PN ---
Subjective - Date & Time of Evaluation Date of Evaluation: 01/03/17 Time of Evaluation: 10:00 - Subjective Subjective: labs better on1:1 still confused, but not as restless cannot obtain ROS due to above Objective - Vital Signs/Intake and Output Vital Signs (last 24 hours): Temp Pulse Resp BP Pulse Ox 97.4 F L 74 20 133/60 96 01/03/17 08:08 01/03/17 08:08 01/03/17 08:08 01/03/17 08:08 01/03/17 08:08 Intake and Output: 01/03/17 01/03/17 06:59 18:59 Intake Total 890 Output Total 650 Balance 240 - Medications Medications: Current Medications Amlodipine Besylate (Norvasc) 10 mg PO DAILY [facility] Last Admin: 01/03/17 10:23 Dose: 10 mg Calcium Carbonate (Tums) 1,000 mg PO TID [facility] Last Admin: 01/02/17 17:21 Dose: 1,000 mg Docusate Sodium (Colace) 100 mg PO TID [facility] Last Admin: 01/03/17 10:23 Dose: 100 mg Duloxetine HCl (Cymbalta) 40 mg PO HS [facility] Last Admin: 01/02/17 21:29 Dose: 40 mg Ferric Sodium Gluconate Complex (Ferrlecit) 125 mg IVPB DAILY [facility] Stop: 01/09/17 10:16 Last Admin: 01/03/17 10:22 Dose: 125 mg Finasteride (Proscar) 5 mg PO DAILY [facility] Last Admin: 01/03/17 10:28 Dose: 5 mg Heparin Sodium (Porcine) (Heparin) 5,000 units SC Q12 [facility] Last Admin: 01/03/17 10:22 Dose: 5,000 units Ceftriaxone Sodium (Rocephin Iv 1 Gm Duplex) 50 mls @ 100 mls/hr IVPB Q12H [facility] Last Admin: 01/03/17 01:52 Dose: 100 mls/hr Insulin Detemir (Levemir) [address] [facility] Last Admin: 01/02/17 21:30 Dose: 18 unit Insulin Human Regular (Novolin R) 0 unit SC ACHS [facility] PRN Reason: Protocol Last Admin: 01/03/17 07:49 Dose: Not Given Metoprolol Tartrate (Lopressor) 50 mg PO BID [facility] Last Admin: 01/03/17 10:22 Dose: 50 mg Mirtazapine (Remeron) 30 mg PO HS [facility] Last Admin: 01/02/17 21:29 Dose: 30 mg Pantoprazole Sodium (Protonix Ec Tab) 40 mg PO DAILY [facility] Last Admin: 01/02/17 10:02 Dose: 40 mg Polyethylene Glycol (Miralax) 17 gm PO DAILY PRN PRN Reason: IF NO BM IN 3 DAYS Rosuvastatin Calcium (Crestor) 10 mg PO QPM [facility] Last Admin: 01/02/17 17:23 Dose: 10 mg Saccharomyces Boulardii (Florastor) 250 mg PO BID [facility] Last Admin: 01/03/17 10:23 Dose: 250 mg Tamsulosin HCl (Flomax) 0.4 mg PO DAILY [facility] Last Admin: 01/03/17 10:22 Dose: 0.4 mg - Labs Labs: 01/02/17 08:15 01/03/17 07:02 PT 11.1 SECONDS (9.7-12.2) 12/30/16 19:50 INR 1.0 12/30/16 19:50 APTT 25 SECONDS (21-34) 12/30/16 19:50 - Constitutional Appears: Confused, Chronically Ill - Eye Exam Eye Exam: EOMI - ENT Exam ENT Exam: Mucous Membranes Moist - Neck Exam Neck Exam: Full ROM. absent: Lymphadenopathy - Respiratory Exam Respiratory Exam: Clear to Ausculation Bilateral. absent: Respiratory Distress - Cardiovascular Exam Cardiovascular Exam: REGULAR RHYTHM. absent: Rubs - GI/Abdominal Exam GI & Abdominal Exam: Soft, Normal Bowel Sounds - Extremities Exam Extremities Exam: absent: Pedal Edema - Neurological Exam Neurological Exam: Alert, Awake. absent: Oriented x3 Assessment and Plan - Assessment and Plan (Free Text) Assessment: resolving briana, likely pre renal indices for anemia w/u mental status still with disorientation
[2017-01-03] MEDS: Calcium Carbonate 500 mg Chewable Antacid Tab PO SCH ×3 (12:12→17:50)
[2017-01-03] MEDS: Pantoprazole 40 mg EC Tab PO SCH (14:33)
[2017-01-03] MEDS: Oxycodone/Acetaminophen 5/325 mg Tab PO PRN (17:49)
--- NOTE | 2017-01-03 18:29 | CP.PCM.PN ---
Subjective - Date & Time of Evaluation Date of Evaluation: 01/03/17 Time of Evaluation: 11:00 - Subjective Subjective: clinically same Objective - Vital Signs/Intake and Output Vital Signs (last 24 hours): Temp Pulse Resp BP Pulse Ox 97.8 F 67 18 166/76 H 96 01/03/17 17:40 01/03/17 17:40 01/03/17 17:40 01/03/17 17:40 01/03/17 08:08 Intake and Output: 01/03/17 01/03/17 06:59 18:59 Intake Total 890 0 Output Total 650 Balance 240 0 - Medications Medications: Current Medications Amlodipine Besylate (Norvasc) 10 mg PO DAILY [facility] Last Admin: 01/03/17 10:23 Dose: 10 mg Calcium Carbonate (Tums) 1,000 mg PO TID [facility] Last Admin: 01/03/17 17:50 Dose: 1,000 mg Docusate Sodium (Colace) 100 mg PO TID [facility] Last Admin: 01/03/17 17:48 Dose: 100 mg Duloxetine HCl (Cymbalta) 40 mg PO HS [facility] Last Admin: 01/02/17 21:29 Dose: 40 mg Ferric Sodium Gluconate Complex (Ferrlecit) 125 mg IVPB DAILY [facility] Stop: 01/09/17 10:16 Last Admin: 01/03/17 10:22 Dose: 125 mg Finasteride (Proscar) 5 mg PO DAILY [facility] Last Admin: 01/03/17 10:28 Dose: 5 mg Heparin Sodium (Porcine) (Heparin) 5,000 units SC Q12 [facility] Last Admin: 01/03/17 10:22 Dose: 5,000 units Ceftriaxone Sodium (Rocephin Iv 1 Gm Duplex) 50 mls @ 100 mls/hr IVPB Q12H [facility] Last Admin: 01/03/17 14:46 Dose: 100 mls/hr Sodium Chloride (Sodium Chloride 0.9%) 1,000 mls @ 70 mls/hr IV .[id number] [facility] Last Admin: 01/03/17 17:50 Dose: 70 mls/hr Insulin Detemir (Levemir) 18 unit SC HS [facility] Last Admin: 01/02/17 21:30 Dose: 18 unit Insulin Human Regular (Novolin R) 0 unit SC ACHS [facility] PRN Reason: Protocol Last Admin: 01/03/17 17:49 Dose: 3 unit Metoprolol Tartrate (Lopressor) 50 mg PO BID [facility] Last Admin: 01/03/17 17:48 Dose: 50 mg Mirtazapine (Remeron) 30 mg PO HS [facility] Last Admin: 01/02/17 21:29 Dose: 30 mg Oxycodone/Acetaminophen (Percocet 5/325 Mg Tab) 2 tab PO Q6H PRN PRN Reason: Pain, severe (8-10) Stop: 01/06/17 16:02 Last Admin: 01/03/17 17:49 Dose: 2 tab Pantoprazole Sodium (Protonix Ec Tab) 40 mg PO DAILY [facility] Last Admin: 01/03/17 14:33 Dose: 40 mg Polyethylene Glycol (Miralax) 17 gm PO DAILY PRN PRN Reason: IF NO BM IN 3 DAYS Rosuvastatin Calcium (Crestor) 10 mg PO QPM [facility] Last Admin: 01/03/17 17:48 Dose: 10 mg Saccharomyces Boulardii (Florastor) 250 mg PO BID [facility] Last Admin: 01/03/17 17:55 Dose: 250 mg Tamsulosin HCl (Flomax) 0.4 mg PO DAILY [facility] Last Admin: 01/03/17 10:22 Dose: 0.4 mg - Labs Labs: 01/02/17 08:15 01/03/17 07:02 PT 11.1 SECONDS (9.7-12.2) 12/30/16 19:50 INR 1.0 12/30/16 19:50 APTT 25 SECONDS (21-34) 12/30/16 19:50 - Constitutional Appears: Well - Head Exam Head Exam: ATRAUMATIC, NORMAL INSPECTION, NORMOCEPHALIC - Eye Exam Eye Exam: EOMI, Normal appearance, PERRL Pupil Exam: NORMAL ACCOMODATION, PERRL - ENT Exam ENT Exam: Mucous Membranes Moist, Normal Exam - Neck Exam Neck Exam: Full ROM, Normal Inspection. absent: Lymphadenopathy - Respiratory Exam Respiratory Exam: Decreased Breath Sounds - Cardiovascular Exam Cardiovascular Exam: REGULAR RHYTHM, +S1, +S2. absent: Murmur - GI/Abdominal Exam GI & Abdominal Exam: Soft, Normal Bowel Sounds. absent: Tenderness - Rectal Exam Rectal Exam: Deferred Assessment and Plan (1) Electrolyte imbalance Status: Acute (2) Pancytopenia Status: Acute (3) Renal insufficiency Status: Acute (4) Right groin pain Status: Acute (5) S/P aneurysm repair Status: Acute (6) Hyponatremia Status: Resolved (7) STEVEN (acute kidney injury) Status: Acute (8) Abdominal pain Status: Acute (9) Anemia Status: Acute (10) Bacteremia Status: Acute (11) Carotid stenosis Status: Acute (12) Chronic cholecystitis due to gallbladder calculus with obstruction Status: Acute (13) Claudication Status: Acute (14) Diabetes mellitus, insulin dependent (IDDM), uncontrolled Status: Acute (15) Distal radius fracture, right Status: Acute (16) E coli bacteremia Status: Acute (17) Elevated alkaline phosphatase level Status: Acute (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, right Status: Acute (19) Femoral artery thrombosis, right Status: Acute (20) Hyperglycemia Status: Acute (21) Hypoglycemia Status: Acute (22) Nausea & vomiting Status: Acute (23) PAD (peripheral artery disease) Status: Acute (24) Pancreatitis Status: Acute (25) Prophylactic measure Status: Acute (26) Pseudoaneurysm of femoral artery Status: Acute (27) S/P femoral-popliteal bypass surgery Status: Acute (28) Syncope Status: Acute (29) Vomiting alone Status: Acute (30) CKD (chronic kidney disease) stage 3, GFR 30-59 ml/min Status: Chronic (31) Chronic pancreatitis Status: Chronic (32) Diabetes Status: Chronic (33) Gallstones Status: Chronic (34) History of BPH Status: Chronic (35) History of anemia Status: Chronic (36) History of depression Status: Chronic (37) History of diabetes mellitus Status: Chronic (38) Hypertension Status: Chronic (39) H/O ruptured arterial aneurysm Status: Resolved (40) Hyperkalemia Status: Resolved - Assessment and Plan (Free Text) Plan: Patient examined. Patient still confused. Restlessness reduced. Continue ceftriaxone. Antidiabetic and antihypertensive medications. Supportive care.
[2017-01-03 19:42] LABS: BASO # 0.1 K/uL (0.0-0.2); BASO % 1.9 % (0.0-2.0); EOS # 0.4 K/uL (0.0-0.7); EOS % 10.9 % (0.0-4.0); HEMATOCRIT 24.4 % (35.0-51.0); LYMPH # 0.6 K/uL (1.0-4.3); LYMPH % 15.8 % (20.0-40.0); MEAN CELL VOLUME 90.1 fL (80.0-94.0); MEAN CORPUSCULAR HEMOGLOBIN 29.4 pg (27.0-31.0); MEAN CORPUSCULAR HGB CONC 32.7 g/dL (33.0-37.0); MEAN PLATELET VOLUME 9.5 fL (7.2-11.7); MONO # 0.2 K/uL (0.0-0.8); MONO % 6.1 % (0.0-10.0); NRBC % 0.1 % (0.0-2.0); RED CELL DISTRIBUTION WIDTH 15.2 % (11.5-14.5)
[2017-01-03] MEDS: Insulin Detemir 100 units/ml Vial (Levemir) SC SCH (21:46)
[2017-01-04] MEDS: Oxycodone/Acetaminophen 5/325 mg Tab PO PRN ×3 (00:01→18:13)
[2017-01-04] MEDS: cefTRIAXone IV 1 gm in Dextros 50 ML IVPB SCH ×2 (02:00→13:40)
[2017-01-04 05:47] LABS: TOTAL PROTEIN, SERUM 5.5 g/dL (6.1-8.1)
[2017-01-04] MEDS: Sodium Chloride 0.9% 1,000 ML IV SCH ×2 (07:00→13:44)
[2017-01-04 07:46] LABS: BASO % 1.1 % (0.0-2.0); EOS # 0.5 K/uL (0.0-0.7); EOS % 11.5 % (0.0-4.0); HEMATOCRIT 27.1 % (35.0-51.0); LYMPH # 0.9 K/uL (1.0-4.3); LYMPH % 21.3 % (20.0-40.0); MEAN CELL VOLUME 88.5 fL (80.0-94.0); MEAN CORPUSCULAR HEMOGLOBIN 29.9 pg (27.0-31.0); MEAN CORPUSCULAR HGB CONC 33.8 g/dL (33.0-37.0); MONO # 0.4 K/uL (0.0-0.8); MONO % 8.8 % (0.0-10.0); NRBC % 0.1 % (0.0-2.0); RED CELL DISTRIBUTION WIDTH 14.9 % (11.5-14.5); WHITE BLOOD COUNT 4.2 K/uL (4.8-10.8)
[2017-01-04 07:56] LABS: CHLORIDE 104 mmol/L (98-107); POTASSIUM 4.1 mmol/L (3.6-5.2); SODIUM 136 mmol/L (132-148)
[2017-01-04 07:59] LABS: BLOOD UREA NITROGEN 23 mg/dL (9-20); CALCIUM 8.3 mg/dl (8.6-10.4); CARBON DIOXIDE 24 mmol/L (22-30); GFR AFRICAN-AMERICAN > 60; GLUCOSE,RANDOM 43 mg/dL (75-110)
[2017-01-04] MEDS: (Novolin R) Insulin Human Regular 100 units/ml vial SC SCH ×4 (08:25→22:34)
[2017-01-04] MEDS: LIPASE/PROTEASE/AMYLASE 4,200 U ECC PO SCH ×4 (08:45→17:30)
[2017-01-04] MEDS: Saccharomyces Boulardi 250 mg Cap PO SCH ×2 (09:47→17:30)
[2017-01-04] MEDS: Ferric Sodium Gluconat Complex 62.5 mg/5 ml Vial IVPB SCH (09:47)
[2017-01-04] MEDS: Pantoprazole 40 mg EC Tab PO SCH (09:47)
[2017-01-04] MEDS: Calcium Carbonate 500 mg Chewable Antacid Tab PO SCH ×3 (09:47→17:30)
--- NOTE | 2017-01-04 13:54 | CP.PCM.PN ---
Subjective - Date & Time of Evaluation Date of Evaluation: 01/04/17 Time of Evaluation: 11:00 - Subjective Subjective: clinically same Objective - Vital Signs/Intake and Output Vital Signs (last 24 hours): Temp Pulse Resp BP Pulse Ox 97.9 F 72 18 129/66 99 01/04/17 08:16 01/04/17 08:16 01/04/17 08:16 01/04/17 08:16 01/04/17 08:16 Intake and Output: 01/04/17 01/04/17 06:59 18:59 Intake Total 283 Output Total 400 Balance -117 - Medications Medications: Current Medications Amlodipine Besylate (Norvasc) 10 mg PO DAILY [facility] Last Admin: 01/04/17 09:47 Dose: 10 mg Calcium Carbonate (Tums) 1,000 mg PO TID [facility] Last Admin: 01/04/17 13:39 Dose: 1,000 mg Docusate Sodium (Colace) 100 mg PO TID [facility] Last Admin: 01/04/17 13:39 Dose: 100 mg Duloxetine HCl (Cymbalta) [address] [facility] Last Admin: 01/03/17 21:45 Dose: 40 mg Ferric Sodium Gluconate Complex (Ferrlecit) 125 mg IVPB DAILY [facility] Stop: 01/09/17 10:16 Last Admin: 01/04/17 09:47 Dose: 125 mg Finasteride (Proscar) 5 mg PO DAILY [facility] Last Admin: 01/04/17 09:47 Dose: 5 mg Heparin Sodium (Porcine) (Heparin) 5,000 units SC Q12 [facility] Last Admin: 01/04/17 09:46 Dose: 5,000 units Ceftriaxone Sodium (Rocephin Iv 1 Gm Duplex) 50 mls @ 100 mls/hr IVPB Q12H [facility] Last Admin: 01/04/17 13:40 Dose: 100 mls/hr Sodium Chloride (Sodium Chloride 0.9%) 1,000 mls @ 70 mls/hr IV .[id number] [facility] Last Admin: 01/04/17 07:00 Dose: Not Given Insulin Detemir (Levemir) 18 unit SC HS [facility] Last Admin: 01/03/17 21:46 Dose: 18 unit Insulin Human Regular (Novolin R) 0 unit SC [facility] PRN Reason: Protocol Last Admin: 01/04/17 13:40 Dose: 2 unit Metoprolol Tartrate (Lopressor) 50 mg PO BID [facility] Last Admin: 01/04/17 09:47 Dose: 50 mg Mirtazapine (Remeron) 30 mg PO HS [facility] Last Admin: 01/03/17 21:45 Dose: 30 mg Oxycodone/Acetaminophen (Percocet 5/325 Mg Tab) 2 tab PO Q6H PRN PRN Reason: Pain, severe (8-10) Stop: 01/06/17 16:02 Last Admin: 01/04/17 09:52 Dose: 2 tab Pantoprazole Sodium (Protonix Ec Tab) 40 mg PO DAILY [facility] Last Admin: 01/04/17 09:47 Dose: 40 mg Polyethylene Glycol (Miralax) 17 gm PO DAILY PRN PRN Reason: IF NO BM IN 3 DAYS Rosuvastatin Calcium (Crestor) 10 mg PO QPM [facility] Last Admin: 01/03/17 17:48 Dose: 10 mg Saccharomyces Boulardii (Florastor) 250 mg PO BID [facility] Last Admin: 01/04/17 09:47 Dose: 250 mg Tamsulosin HCl (Flomax) 0.4 mg PO DAILY [facility] Last Admin: 01/04/17 09:47 Dose: 0.4 mg - Labs Labs: 01/04/17 07:30 01/04/17 07:30 PT 11.1 SECONDS (9.7-12.2) 12/30/16 19:50 INR 1.0 12/30/16 19:50 APTT 25 SECONDS (21-34) 12/30/16 19:50 - Constitutional Appears: Well - Head Exam Head Exam: ATRAUMATIC, NORMAL INSPECTION, NORMOCEPHALIC - Eye Exam Eye Exam: EOMI, Normal appearance, PERRL Pupil Exam: NORMAL ACCOMODATION, PERRL - ENT Exam ENT Exam: Mucous Membranes Moist, Normal Exam - Neck Exam Neck Exam: Full ROM, Normal Inspection. absent: Lymphadenopathy - Respiratory Exam Respiratory Exam: Decreased Breath Sounds - Cardiovascular Exam Cardiovascular Exam: REGULAR RHYTHM, +S1, +S2 - GI/Abdominal Exam GI & Abdominal Exam: Soft, Diminished Bowel Sounds - Rectal Exam Rectal Exam: Deferred Assessment and Plan (1) Electrolyte imbalance Status: Acute (2) Pancytopenia Status: Acute (3) Renal insufficiency Status: Acute (4) Right groin pain Status: Acute (5) S/P aneurysm repair Status: Acute (6) Hyponatremia Status: Resolved (7) STEVEN (acute kidney injury) Status: Acute (8) Abdominal pain Status: Acute (9) Anemia Status: Acute (10) Bacteremia Status: Acute (11) Carotid stenosis Status: Acute (12) Chronic cholecystitis due to gallbladder calculus with obstruction Status: Acute (13) Claudication Status: Acute (14) Diabetes mellitus, insulin dependent (IDDM), uncontrolled Status: Acute (15) Distal radius fracture, right Status: Acute (16) E coli bacteremia Status: Acute (17) Elevated alkaline phosphatase level Status: Acute (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, right Status: Acute (19) Femoral artery thrombosis, right Status: Acute (20) Hyperglycemia Status: Acute (21) Hypoglycemia Status: Acute (22) Nausea & vomiting Status: Acute (23) PAD (peripheral artery disease) Status: Acute (24) Pancreatitis Status: Acute (25) Prophylactic measure Status: Acute (26) Pseudoaneurysm of femoral artery Status: Acute (27) S/P femoral-popliteal bypass surgery Status: Acute (28) Syncope Status: Acute (29) Vomiting alone Status: Acute (30) CKD (chronic kidney disease) stage 3, GFR 30-59 ml/min Status: Chronic (31) Chronic pancreatitis Status: Chronic (32) Diabetes Status: Chronic (33) Gallstones Status: Chronic (34) History of BPH Status: Chronic (35) History of anemia Status: Chronic (36) History of depression Status: Chronic (37) History of diabetes mellitus Status: Chronic (38) Hypertension Status: Chronic (39) H/O ruptured arterial aneurysm Status: Resolved (40) Hyperkalemia Status: Resolved - Assessment and Plan (Free Text) Plan: Patient examined. Patient clinically better. Continue ceftriaxone. Continue antihypertensive and antidiabetic medications. Continue supportive care.
--- NOTE | 2017-01-04 20:02 | CP.PCM.PN ---
Subjective - Date & Time of Evaluation Date of Evaluation: 01/03/17 Time of Evaluation: 17:00 - Subjective Subjective: No complaints, mental status improved Objective - Vital Signs/Intake and Output Vital Signs (last 24 hours): Temp Pulse Resp BP Pulse Ox 97.1 F L 64 20 162/77 H 98 01/04/17 16:00 01/04/17 16:00 01/04/17 16:00 01/04/17 16:00 01/04/17 16:00 Intake and Output: 01/04/17 01/05/17 18:59 06:59 Intake Total 709 Balance 709 - Medications Medications: Current Medications Amlodipine Besylate (Norvasc) 10 mg PO DAILY [facility] Last Admin: 01/04/17 09:47 Dose: 10 mg Calcium Carbonate (Tums) 1,000 mg PO TID [facility] Last Admin: 01/04/17 17:30 Dose: 1,000 mg Docusate Sodium (Colace) 100 mg PO TID [facility] Last Admin: 01/04/17 17:30 Dose: 100 mg Duloxetine HCl (Cymbalta) 40 mg PO HS [facility] Last Admin: 01/03/17 21:45 Dose: 40 mg Ferric Sodium Gluconate Complex (Ferrlecit) 125 mg IVPB DAILY [facility] Stop: 01/09/17 10:16 Last Admin: 01/04/17 09:47 Dose: 125 mg Finasteride (Proscar) 5 mg PO DAILY [facility] Last Admin: 01/04/17 09:47 Dose: 5 mg Heparin Sodium (Porcine) (Heparin) 5,000 units SC Q12 [facility] Last Admin: 01/04/17 09:46 Dose: 5,000 units Ceftriaxone Sodium (Rocephin Iv 1 Gm Duplex) 50 mls @ 100 mls/hr IVPB Q12H [facility] Last Admin: 01/04/17 13:40 Dose: 100 mls/hr Sodium Chloride (Sodium Chloride 0.9%) 1,000 mls @ 70 mls/hr IV .[id number] [facility] Last Admin: 01/04/17 07:00 Dose: Not Given Insulin Detemir (Levemir) 18 unit SC HS [facility] Last Admin: 01/03/17 21:46 Dose: 18 unit Insulin Human Regular (Novolin R) 0 unit SC [facility] PRN Reason: Protocol Last Admin: 01/04/17 18:12 Dose: 1 unit Metoprolol Tartrate (Lopressor) 50 mg PO BID [facility] Last Admin: 01/04/17 17:30 Dose: 50 mg Mirtazapine (Remeron) 30 mg PO HS [facility] Last Admin: 01/03/17 21:45 Dose: 30 mg Oxycodone/Acetaminophen (Percocet 5/325 Mg Tab) 2 tab PO Q6H PRN PRN Reason: Pain, severe (8-10) Stop: 01/06/17 16:02 Last Admin: 01/04/17 18:13 Dose: 2 tab Pantoprazole Sodium (Protonix Ec Tab) 40 mg PO DAILY [facility] Last Admin: 01/04/17 09:47 Dose: 40 mg Polyethylene Glycol (Miralax) 17 gm PO DAILY PRN PRN Reason: IF NO BM IN 3 DAYS Rosuvastatin Calcium (Crestor) 10 mg PO QPM [facility] Last Admin: 01/04/17 17:30 Dose: 10 mg Saccharomyces Boulardii (Florastor) 250 mg PO BID [facility] Last Admin: 01/04/17 17:30 Dose: 250 mg Tamsulosin HCl (Flomax) 0.4 mg PO DAILY [facility] Last Admin: 01/04/17 09:47 Dose: 0.4 mg - Labs Labs: 01/04/17 07:30 01/04/17 07:30 PT 11.1 SECONDS (9.7-12.2) 12/30/16 19:50 INR 1.0 12/30/16 19:50 APTT 25 SECONDS (21-34) 12/30/16 19:50 - Head Exam Head Exam: ATRAUMATIC - Eye Exam Eye Exam: Normal appearance - ENT Exam ENT Exam: Mucous Membranes Dry - Respiratory Exam Respiratory Exam: NORMAL BREATHING PATTERN - Cardiovascular Exam Cardiovascular Exam: +S1, +S2 - GI/Abdominal Exam GI & Abdominal Exam: Normal Bowel Sounds - Extremities Exam Extremities Exam: Normal Inspection Assessment and Plan (1) Pancytopenia Assessment & Plan: normal iron, b12, folate f/u monoclonal protein w/u may require bone marrow evaluation if counts remain low Status: Acute
--- NOTE | 2017-01-04 20:03 | CP.PCM.PN ---
Subjective - Date & Time of Evaluation Date of Evaluation: 01/04/17 Time of Evaluation: 19:30 - Subjective Subjective: No complaints mental status improving Objective - Vital Signs/Intake and Output Vital Signs (last 24 hours): Temp Pulse Resp BP Pulse Ox 97.1 F L 64 20 162/77 H 98 01/04/17 16:00 01/04/17 16:00 01/04/17 16:00 01/04/17 16:00 01/04/17 16:00 Intake and Output: 01/04/17 01/05/17 18:59 06:59 Intake Total 709 Balance 709 - Medications Medications: Current Medications Amlodipine Besylate (Norvasc) 10 mg PO DAILY [facility] Last Admin: 01/04/17 09:47 Dose: 10 mg Calcium Carbonate (Tums) 1,000 mg PO TID [facility] Last Admin: 01/04/17 17:30 Dose: 1,000 mg Docusate Sodium (Colace) 100 mg PO TID [facility] Last Admin: 01/04/17 17:30 Dose: 100 mg Duloxetine HCl (Cymbalta) 40 mg PO HS [facility] Last Admin: 01/03/17 21:45 Dose: 40 mg Ferric Sodium Gluconate Complex (Ferrlecit) 125 mg IVPB DAILY [facility] Stop: 01/09/17 10:16 Last Admin: 01/04/17 09:47 Dose: 125 mg Finasteride (Proscar) 5 mg PO DAILY [facility] Last Admin: 01/04/17 09:47 Dose: 5 mg Heparin Sodium (Porcine) (Heparin) 5,000 units SC Q12 [facility] Last Admin: 01/04/17 09:46 Dose: 5,000 units Ceftriaxone Sodium (Rocephin Iv 1 Gm Duplex) 50 mls @ 100 mls/hr IVPB Q12H [facility] Last Admin: 01/04/17 13:40 Dose: 100 mls/hr Sodium Chloride (Sodium Chloride 0.9%) 1,000 mls @ 70 mls/hr IV .[id number] [facility] Last Admin: 01/04/17 07:00 Dose: Not Given Insulin Detemir (Levemir) 18 unit SC [facility] Last Admin: 01/03/17 21:46 Dose: 18 unit Insulin Human Regular (Novolin R) 0 unit SC [facility] PRN Reason: Protocol Last Admin: 01/04/17 18:12 Dose: 1 unit Metoprolol Tartrate (Lopressor) 50 mg PO BID [facility] Last Admin: 01/04/17 17:30 Dose: 50 mg Mirtazapine (Remeron) 30 mg PO HS [facility] Last Admin: 01/03/17 21:45 Dose: 30 mg Oxycodone/Acetaminophen (Percocet 5/325 Mg Tab) 2 tab PO Q6H PRN PRN Reason: Pain, severe (8-10) Stop: 01/06/17 16:02 Last Admin: 01/04/17 18:13 Dose: 2 tab Pantoprazole Sodium (Protonix Ec Tab) 40 mg PO DAILY [facility] Last Admin: 01/04/17 09:47 Dose: 40 mg Polyethylene Glycol (Miralax) 17 gm PO DAILY PRN PRN Reason: IF NO BM IN 3 DAYS Rosuvastatin Calcium (Crestor) 10 mg PO QPM [facility] Last Admin: 01/04/17 17:30 Dose: 10 mg Saccharomyces Boulardii (Florastor) 250 mg PO BID [facility] Last Admin: 01/04/17 17:30 Dose: 250 mg Tamsulosin HCl (Flomax) 0.4 mg PO DAILY [facility] Last Admin: 01/04/17 09:47 Dose: 0.4 mg - Labs Labs: 01/04/17 07:30 01/04/17 07:30 PT 11.1 SECONDS (9.7-12.2) 12/30/16 19:50 INR 1.0 12/30/16 19:50 APTT 25 SECONDS (21-34) 12/30/16 19:50 - Head Exam Head Exam: ATRAUMATIC - Eye Exam Eye Exam: Normal appearance - ENT Exam ENT Exam: Mucous Membranes Dry - Respiratory Exam Respiratory Exam: NORMAL BREATHING PATTERN - Cardiovascular Exam Cardiovascular Exam: +S1, +S2 - GI/Abdominal Exam GI & Abdominal Exam: Normal Bowel Sounds - Extremities Exam Extremities Exam: Normal Inspection Assessment and Plan (1) Pancytopenia Assessment & Plan: counts improving normal iron, b12, folate stores Status: Acute
[2017-01-04] MEDS: Insulin Detemir 100 units/ml Vial (Levemir) SC SCH (21:46)
[2017-01-05] MEDS: cefTRIAXone IV 1 gm in Dextros 50 ML IVPB SCH ×2 (02:08→14:04)
[2017-01-05] MEDS: Sodium Chloride 0.9% 1,000 ML IV SCH (02:09)
[2017-01-05] MEDS: LIPASE/PROTEASE/AMYLASE 4,200 U ECC PO SCH ×3 (10:06→16:59)
[2017-01-05] MEDS: Ferric Sodium Gluconat Complex 62.5 mg/5 ml Vial IVPB SCH (10:07)
[2017-01-05] MEDS: Calcium Carbonate 500 mg Chewable Antacid Tab PO SCH ×3 (10:07→18:50)
[2017-01-05] MEDS: Pantoprazole 40 mg EC Tab PO SCH (10:09)
[2017-01-05] MEDS: Saccharomyces Boulardi 250 mg Cap PO SCH ×2 (10:09→18:50)
[2017-01-05] MEDS: Oxycodone/Acetaminophen 5/325 mg Tab PO PRN ×2 (10:37→16:59)
--- NOTE | 2017-01-05 12:22 | CP.PCM.PN ---
Subjective - Date & Time of Evaluation Date of Evaluation: 01/05/17 Time of Evaluation: 12:20 - Subjective Subjective: Sleepy now Has had beter appetite remains on 1:1 creat down to 1.4 HTN still difficult to control Objective - Vital Signs/Intake and Output Vital Signs (last 24 hours): Temp Pulse Resp BP Pulse Ox 98.3 F 67 18 180/79 H 98 01/05/17 07:39 01/05/17 08:40 01/05/17 07:39 01/05/17 07:39 01/05/17 07:39 Intake and Output: 01/05/17 01/05/17 06:59 18:59 Intake Total 610 Output Total 500 Balance 110 - Medications Medications: Current Medications Amlodipine Besylate (Norvasc) 10 mg PO DAILY [facility] Last Admin: 01/05/17 10:08 Dose: 10 mg Calcium Carbonate (Tums) 1,000 mg PO TID [facility] Last Admin: 01/05/17 10:07 Dose: 1,000 mg Docusate Sodium (Colace) 100 mg PO TID [facility] Last Admin: 01/05/17 10:07 Dose: 100 mg Duloxetine HCl (Cymbalta) 40 mg PO [facility] Last Admin: 01/04/17 21:46 Dose: 40 mg Ferric Sodium Gluconate Complex (Ferrlecit) 125 mg IVPB DAILY [facility] Stop: 01/09/17 10:16 Last Admin: 01/05/17 10:07 Dose: 125 mg Finasteride (Proscar) 5 mg PO DAILY [facility] Last Admin: 01/05/17 10:09 Dose: 5 mg Heparin Sodium (Porcine) (Heparin) 5,000 units SC Q12 [facility] Last Admin: 01/05/17 10:09 Dose: 5,000 units Ceftriaxone Sodium (Rocephin Iv 1 Gm Duplex) 50 mls @ 100 mls/hr IVPB Q12H [facility] Last Admin: 01/05/17 02:08 Dose: 100 mls/hr Sodium Chloride (Sodium Chloride 0.9%) 1,000 mls @ 70 mls/hr IV .[id number] [facility] Last Admin: 01/05/17 02:09 Dose: 70 mls/hr Insulin Detemir (Levemir) 18 unit SC [facility] Last Admin: 01/04/17 21:46 Dose: 18 unit Insulin Human Regular (Novolin R) 0 unit SC ACHS [facility] PRN Reason: Protocol Last Admin: 01/04/17 22:34 Dose: Not Given Metoprolol Tartrate (Lopressor) 50 mg PO BID [facility] Last Admin: 01/05/17 10:09 Dose: 50 mg Mirtazapine (Remeron) 30 mg PO HS [facility] Last Admin: 01/04/17 21:46 Dose: 30 mg Oxycodone/Acetaminophen (Percocet 5/325 Mg Tab) 2 tab PO Q6H PRN PRN Reason: Pain, severe (8-10) Stop: 01/06/17 16:02 Last Admin: 01/05/17 10:37 Dose: 2 tab Pantoprazole Sodium (Protonix Ec Tab) 40 mg PO DAILY [facility] Last Admin: 01/05/17 10:09 Dose: 40 mg Polyethylene Glycol (Miralax) 17 gm PO DAILY PRN PRN Reason: IF NO BM IN 3 DAYS Rosuvastatin Calcium (Crestor) 10 mg PO QPM [facility] Last Admin: 01/04/17 17:30 Dose: 10 mg Saccharomyces Boulardii (Florastor) 250 mg PO BID [facility] Last Admin: 01/05/17 10:09 Dose: 250 mg Tamsulosin HCl (Flomax) 0.4 mg PO DAILY [facility] Last Admin: 01/05/17 10:08 Dose: 0.4 mg - Labs Labs: 01/04/17 07:30 01/04/17 07:30 PT 11.1 SECONDS (9.7-12.2) 12/30/16 19:50 INR 1.0 12/30/16 19:50 APTT 25 SECONDS (21-34) 12/30/16 19:50 - Constitutional Appears: No Acute Distress, Chronically Ill - Head Exam Head Exam: ATRAUMATIC, NORMAL INSPECTION - Eye Exam Eye Exam: EOMI, Normal appearance - Neck Exam Neck Exam: Normal Inspection. absent: Tenderness - Respiratory Exam Respiratory Exam: Clear to Ausculation Bilateral, NORMAL BREATHING PATTERN - Cardiovascular Exam Cardiovascular Exam: REGULAR RHYTHM, +S1 - GI/Abdominal Exam GI & Abdominal Exam: Soft. absent: Tenderness - Extremities Exam Extremities Exam: Normal Inspection. absent: Tenderness - Neurological Exam Neurological Exam: Altered, CN II-XII Intact - Skin Skin Exam: Dry, Warm Assessment and Plan (1) Hyponatremia Status: Resolved (2) STEVEN (acute kidney injury) Status: Acute (3) Pseudoaneurysm of femoral artery Status: Acute - Assessment and Plan (Free Text) Plan: Change BP meds repeat chemistries
[2017-01-05] MEDS: (Novolin R) Insulin Human Regular 100 units/ml vial SC SCH ×3 (12:37→21:43)
--- NOTE | 2017-01-05 14:23 | CP.PCM.PN ---
<Abhinav Macedo - Last Filed: 01/05/17 14:25> Subjective - Date & Time of Evaluation Date of Evaluation: 01/05/17 Time of Evaluation: 14:00 - Subjective Subjective: Progress note. Attending: Dr. Santana. Pt seen and examined at bedside. No acute distress. No events overnight. Mental status improving. No fevers, chills, vomiting, diarrhea. Objective - Vital Signs/Intake and Output Vital Signs (last 24 hours): Temp Pulse Resp BP Pulse Ox 98.3 F 89 18 180/79 H 98 01/05/17 07:39 01/05/17 12:44 01/05/17 07:39 01/05/17 07:39 01/05/17 07:39 Intake and Output: 01/05/17 01/05/17 06:59 18:59 Intake Total 610 Output Total 500 Balance 110 - Medications Medications: Current Medications Amlodipine Besylate (Norvasc) 10 mg PO DAILY [facility] Last Admin: 01/05/17 10:08 Dose: 10 mg Calcium Carbonate (Tums) 1,000 mg PO TID [facility] Last Admin: 01/05/17 14:04 Dose: 1,000 mg Carvedilol (Coreg) 6.25 mg PO BID [facility] Docusate Sodium (Colace) 100 mg PO TID [facility] Last Admin: 01/05/17 14:05 Dose: 100 mg Duloxetine HCl (Cymbalta) 40 mg PO HS [facility] Last Admin: 01/04/17 21:46 Dose: 40 mg Ferric Sodium Gluconate Complex (Ferrlecit) 125 mg IVPB DAILY [facility] Stop: 01/09/17 10:16 Last Admin: 01/05/17 10:07 Dose: 125 mg Finasteride (Proscar) 5 mg PO DAILY [facility] Last Admin: 01/05/17 10:09 Dose: 5 mg Heparin Sodium (Porcine) (Heparin) 5,000 units SC Q12 [facility] Last Admin: 01/05/17 10:09 Dose: 5,000 units Ceftriaxone Sodium (Rocephin Iv 1 Gm Duplex) 50 mls @ 100 mls/hr IVPB Q12H [facility] Last Admin: 01/05/17 14:04 Dose: 100 mls/hr Sodium Chloride (Sodium Chloride 0.9%) 1,000 mls @ 70 mls/hr IV .[id number] [facility] Last Admin: 01/05/17 02:09 Dose: 70 mls/hr Insulin Detemir (Levemir) 18 unit SC HS [facility] Last Admin: 01/04/17 21:46 Dose: 18 unit Insulin Human Regular (Novolin R) 0 unit SC ACHS [facility] PRN Reason: Protocol Last Admin: 01/05/17 12:37 Dose: Not Given Mirtazapine (Remeron) 30 mg PO HS [facility] Last Admin: 01/04/17 21:46 Dose: 30 mg Oxycodone/Acetaminophen (Percocet 5/325 Mg Tab) 2 tab PO Q6H PRN PRN Reason: Pain, severe (8-10) Stop: 01/06/17 16:02 Last Admin: 01/05/17 10:37 Dose: 2 tab Pantoprazole Sodium (Protonix Ec Tab) 40 mg PO DAILY [facility] Last Admin: 01/05/17 10:09 Dose: 40 mg Polyethylene Glycol (Miralax) 17 gm PO DAILY PRN PRN Reason: IF NO BM IN 3 DAYS Rosuvastatin Calcium (Crestor) 10 mg PO QPM [facility] Last Admin: 01/04/17 17:30 Dose: 10 mg Saccharomyces Boulardii (Florastor) 250 mg PO BID [facility] Last Admin: 01/05/17 10:09 Dose: 250 mg Tamsulosin HCl (Flomax) 0.4 mg PO DAILY [facility] Last Admin: 01/05/17 10:08 Dose: 0.4 mg - Labs Labs: 01/04/17 07:30 01/04/17 07:30 PT 11.1 SECONDS (9.7-12.2) 12/30/16 19:50 INR 1.0 12/30/16 19:50 APTT 25 SECONDS (21-34) 12/30/16 19:50 - Constitutional Appears: Non-toxic, No Acute Distress, Unkempt - Head Exam Head Exam: ATRAUMATIC, NORMAL INSPECTION, NORMOCEPHALIC - Eye Exam Eye Exam: EOMI - ENT Exam ENT Exam: Mucous Membranes Moist - Neck Exam Neck Exam: Full ROM, Normal Inspection - Respiratory Exam Respiratory Exam: NORMAL BREATHING PATTERN. absent: Respiratory Distress - Cardiovascular Exam Cardiovascular Exam: +S1, +S2 - GI/Abdominal Exam GI & Abdominal Exam: Soft, Normal Bowel Sounds. absent: Tenderness - Extremities Exam Extremities Exam: Full ROM, Normal Inspection - Neurological Exam Neurological Exam: Alert, Awake, Oriented x3 - Psychiatric Exam Psychiatric exam: Flat Affect - Skin Skin Exam: Dry, Intact, Normal Color, Warm Assessment and Plan - Assessment and Plan (Free Text) Assessment: This is a 71 yo male with 1. Acute kidney failure -Admitted with BUN/Cr: 115/5.1 -No prior history of kidney disease -given 1L NS in ER -100ml/hr NS -Nephrology consult - Dr. Blood - help appreciated -renal ultrasound shows mild fullness of renal collecting system, renal cyst -creatinine is improving 2. Anemia -normocytic -Ferrous sulfate 325 mg PO daily -stool occult blood pending -HGB is improving -may ultimately need bone marrow biopsy -monoclonal proteins pending 3. Altered mental status -Unsteady on his feet -Does not remember falling but patient is a poor historian -F/U Head CT>>> chronic white matter ischemic changes; no acute pathology ( please see full report) -psych consult. Dr. Wolff. recs appreciated. -delirium and early onset dementia -mental status improving 4. Depression -Cymbalta 40mg PO HS -Remeron 30mg PO HS 5. HTN -Norvasc 10mg PO daily -Lisinopril 10mg PO daily -Metoprolol 25mg PO BID 6. Hx of CAD with stent 2016 -Cardiac cath 09/21/[address] Mccoy - nonobstructive LAD, LCX and right coronary lesions (please see full report) -Cardiac Cath 11/24/16 - stents placed; no report found -aspirin and plavix have been discontinued because of low HGB 7. Hyperlipidemia -Crestor 10mg PO QPM 8. Hx of DM -Levemir 18u SC HS -ISS -Monitor Accuchecks 9. hx of s/p femoral artery pseudoaneurysm rupture and repair -November [address] Lorenzo -Discharge back to [facility] when ready 10. Hx of BPH -Flomax 0.4mg PO daily -Proscar 5mg PO daily 11. GI/DVT ppx -Protonix 40mg PO daily -Heparin 5000U SC Q12 -Miralax 17gm PO daily PRN if no BM in 3 days All medical management per Dr. Jacky Santana <Андрей Santana S - Last Filed: 01/06/17 12:57> Objective - Vital Signs/Intake and Output Vital Signs (last 24 hours): Temp Pulse Resp BP Pulse Ox 97.5 F L 69 18 132/72 100 01/06/17 07:05 01/06/17 07:05 01/06/17 07:05 01/06/17 07:05 01/06/17 07:05 Intake and Output: 01/06/17 01/06/17 06:59 18:59 Intake Total 1800 Output Total 500 Balance 1300 - Labs Labs: 01/04/17 07:30 01/06/17 06:15 PT 11.1 SECONDS (9.7-12.2) 12/30/16 19:50 INR 1.0 12/30/16 19:50 APTT 25 SECONDS (21-34) 12/30/16 19:50 Assessment and Plan (1) Electrolyte imbalance Status: Acute (2) Pancytopenia Status: Acute (3) Renal insufficiency Status: Acute (4) Right groin pain Status: Acute (5) S/P aneurysm repair Status: Acute (6) Hyponatremia Status: Resolved (7) STEVEN (acute kidney injury) Status: Acute (8) Abdominal pain Status: Acute (9) Anemia Status: Acute (10) Bacteremia Status: Acute (11) Carotid stenosis Status: Acute (12) Chronic cholecystitis due to gallbladder calculus with obstruction Status: Acute (13) Claudication Status: Acute (14) Diabetes mellitus, insulin dependent (IDDM), uncontrolled Status: Acute (15) Distal radius fracture, right Status: Acute (16) E coli bacteremia Status: Acute (17) Elevated alkaline phosphatase level Status: Acute (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, right Status: Acute (19) Femoral artery thrombosis, right Status: Acute (20) Hyperglycemia Status: Acute (21) Hypoglycemia Status: Acute (22) Nausea & vomiting Status: Acute (23) PAD (peripheral artery disease) Status: Acute (24) Pancreatitis Status: Acute (25) Prophylactic measure Status: Acute (26) Pseudoaneurysm of femoral artery Status: Acute (27) S/P femoral-popliteal bypass surgery Status: Acute (28) Syncope Status: Acute (29) Vomiting alone Status: Acute (30) CKD (chronic kidney disease) stage 3, GFR 30-59 ml/min Status: Chronic (31) Chronic pancreatitis Status: Chronic (32) Diabetes Status: Chronic (33) Gallstones Status: Chronic (34) History of BPH Status: Chronic (35) History of anemia Status: Chronic (36) History of depression Status: Chronic (37) History of diabetes mellitus Status: Chronic (38) Hypertension Status: Chronic Attending/Attestation - Attestation I have personally seen and examined this patient.: Yes I have fully participated in the care of the patient.: Yes I have reviewed all pertinent clinical information, including history, physical exam and plan: Yes Notes (Text): Patient examined. No acute distress. Continue ceftriaxone. Continue antidiabetic and antihypertensive medications. Continue supportive care.
--- NOTE | 2017-01-05 19:15 | CP.PCM.PN ---
Subjective - Date & Time of Evaluation Date of Evaluation: 01/05/17 Time of Evaluation: 10:20 - Subjective Subjective: clinically same Objective - Vital Signs/Intake and Output Vital Signs (last 24 hours): Temp Pulse Resp BP Pulse Ox 98.1 F 67 20 165/73 H 99 01/05/17 15:10 01/05/17 16:00 01/05/17 15:10 01/05/17 15:10 01/05/17 15:10 - Medications Medications: Current Medications Amlodipine Besylate (Norvasc) 10 mg PO DAILY [facility] Last Admin: 01/05/17 10:08 Dose: 10 mg Calcium Carbonate (Tums) 1,000 mg PO TID [facility] Last Admin: 01/05/17 18:50 Dose: 1,000 mg Carvedilol (Coreg) 6.25 mg PO BID [facility] Last Admin: 01/05/17 18:50 Dose: 6.25 mg Docusate Sodium (Colace) 100 mg PO TID [facility] Last Admin: 01/05/17 18:50 Dose: 100 mg Duloxetine HCl (Cymbalta) 40 mg PO HS [facility] Last Admin: 01/04/17 21:46 Dose: 40 mg Ferric Sodium Gluconate Complex (Ferrlecit) 125 mg IVPB DAILY [facility] Stop: 01/09/17 10:16 Last Admin: 01/05/17 10:07 Dose: 125 mg Finasteride (Proscar) 5 mg PO DAILY [facility] Last Admin: 01/05/17 10:09 Dose: 5 mg Heparin Sodium (Porcine) (Heparin) 5,000 units SC Q12 [facility] Last Admin: 01/05/17 10:09 Dose: 5,000 units Ceftriaxone Sodium (Rocephin Iv 1 Gm Duplex) 50 mls @ 100 mls/hr IVPB Q12H [facility] Last Admin: 01/05/17 14:04 Dose: 100 mls/hr Sodium Chloride (Sodium Chloride 0.9%) 1,000 mls @ 70 mls/hr IV .[id number] [facility] Last Admin: 01/05/17 02:09 Dose: 70 mls/hr Insulin Detemir (Levemir) 18 unit SC HS [facility] Last Admin: 01/04/17 21:46 Dose: 18 unit Insulin Human Regular (Novolin R) 0 unit SC [facility] PRN Reason: Protocol Last Admin: 01/05/17 16:58 Dose: 4 unit Mirtazapine (Remeron) 30 mg PO HS [facility] Last Admin: 01/04/17 21:46 Dose: 30 mg Oxycodone/Acetaminophen (Percocet 5/325 Mg Tab) 2 tab PO Q6H PRN PRN Reason: Pain, severe (8-10) Stop: 01/06/17 16:02 Last Admin: 01/05/17 16:59 Dose: 2 tab Pantoprazole Sodium (Protonix Ec Tab) 40 mg PO DAILY [facility] Last Admin: 01/05/17 10:09 Dose: 40 mg Polyethylene Glycol (Miralax) 17 gm PO DAILY PRN PRN Reason: IF NO BM IN 3 DAYS Rosuvastatin Calcium (Crestor) 10 mg PO QPM [facility] Last Admin: 01/05/17 18:52 Dose: 10 mg Saccharomyces Boulardii (Florastor) 250 mg PO BID [facility] Last Admin: 01/05/17 18:50 Dose: 250 mg Tamsulosin HCl (Flomax) 0.4 mg PO DAILY [facility] Last Admin: 01/05/17 10:08 Dose: 0.4 mg - Labs Labs: 01/04/17 07:30 01/04/17 07:30 PT 11.1 SECONDS (9.7-12.2) 12/30/16 19:50 INR 1.0 12/30/16 19:50 APTT 25 SECONDS (21-34) 12/30/16 19:50 - Constitutional Appears: Well - Head Exam Head Exam: ATRAUMATIC, NORMAL INSPECTION, NORMOCEPHALIC - Eye Exam Eye Exam: EOMI, Normal appearance, PERRL Pupil Exam: NORMAL ACCOMODATION, PERRL - ENT Exam ENT Exam: Mucous Membranes Moist, Normal Exam - Neck Exam Neck Exam: Full ROM, Normal Inspection. absent: Lymphadenopathy - Respiratory Exam Respiratory Exam: Decreased Breath Sounds - Cardiovascular Exam Cardiovascular Exam: REGULAR RHYTHM, +S1, +S2 - GI/Abdominal Exam GI & Abdominal Exam: Soft, Diminished Bowel Sounds - Rectal Exam Rectal Exam: Deferred Assessment and Plan (1) Electrolyte imbalance Status: Acute (2) Pancytopenia Status: Acute (3) Renal insufficiency Status: Acute (4) Right groin pain Status: Acute (5) S/P aneurysm repair Status: Acute (6) Hyponatremia Status: Resolved (7) STEVEN (acute kidney injury) Status: Acute (8) Abdominal pain Status: Acute (9) Anemia Status: Acute (10) Bacteremia Status: Acute (11) Carotid stenosis Status: Acute (12) Chronic cholecystitis due to gallbladder calculus with obstruction Status: Acute (13) Claudication Status: Acute (14) Diabetes mellitus, insulin dependent (IDDM), uncontrolled Status: Acute (15) Distal radius fracture, right Status: Acute (16) E coli bacteremia Status: Acute (17) Elevated alkaline phosphatase level Status: Acute (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, right Status: Acute (19) Femoral artery thrombosis, right Status: Acute (20) Hyperglycemia Status: Acute (21) Hypoglycemia Status: Acute (22) Nausea & vomiting Status: Acute (23) PAD (peripheral artery disease) Status: Acute (24) Pancreatitis Status: Acute (25) Prophylactic measure Status: Acute (26) Pseudoaneurysm of femoral artery Status: Acute (27) S/P femoral-popliteal bypass surgery Status: Acute (28) Syncope Status: Acute (29) Vomiting alone Status: Acute (30) CKD (chronic kidney disease) stage 3, GFR 30-59 ml/min Status: Chronic (31) Chronic pancreatitis Status: Chronic (32) Diabetes Status: Chronic (33) Gallstones Status: Chronic (34) History of BPH Status: Chronic (35) History of anemia Status: Chronic (36) History of depression Status: Chronic (37) History of diabetes mellitus Status: Chronic (38) Hypertension Status: Chronic (39) H/O ruptured arterial aneurysm Status: Resolved (40) Hyperkalemia Status: Resolved - Assessment and Plan (Free Text) Plan: Patient examined. Patient is alert but confused. Creatinine @ 1.4. Continue ceftriaxone. Continue antidiabetic and antihypertensive medications. Continue supportive care.
[2017-01-05] MEDS: Insulin Detemir 100 units/ml Vial (Levemir) SC SCH (21:43)
[2017-01-06 01:09] VITALS: RESP 18
[2017-01-06] MEDS: Sodium Chloride 0.9% 1,000 ML IV SCH (02:00)
[2017-01-06] MEDS: cefTRIAXone IV 1 gm in Dextros 50 ML IVPB SCH (02:30)
[2017-01-06] MEDS: Oxycodone/Acetaminophen 5/325 mg Tab PO PRN ×2 (03:10→11:55)
[2017-01-06 07:13] LABS: CHLORIDE 102 mmol/L (98-107); SODIUM 134 mmol/L (132-148)
[2017-01-06 07:15] LABS: BILIRUBIN,TOTAL 0.4 mg/dL (0.2-1.3); CARBON DIOXIDE 23 mmol/L (22-30); GFR AFRICAN-AMERICAN > 60
[2017-01-06 07:16] LABS: ALB/GLOB RATIO 1.1 (1.0-2.1); ALKALINE PHOSPHATASE 76 U/L (38-126); ALT/SGPT 27 U/L (21-72); AST/SGOT 18 U/L (17-59); BLOOD UREA NITROGEN 16 mg/dL (9-20); CALCIUM 8.1 mg/dl (8.6-10.4); GLUCOSE,RANDOM 204 mg/dL (75-110); TOTAL PROTEIN 5.6 g/dL (6.3-8.3)
[2017-01-06 07:57] VITALS: BP 132/72; TEMP 97.5; O2SAT 100
--- NOTE | 2017-01-06 09:23 | CP.PCM.PN ---
<VandanaCapo orourkeen Brice - Last Filed: 01/06/17 09:21> Subjective - Date & Time of Evaluation Date of Evaluation: 01/06/17 Time of Evaluation: 08:40 - Subjective Subjective: PGY3 Medicine Note - Dr. Jacky Santana's service: Patient seen and examined at bedside. Patient's femoral artery dressing clean dry and intact. Patient reports right foot tingling and electrical like shocks of pain intermittently. Patient denies fever, chills, chest pain, SOB. Objective - Vital Signs/Intake and Output Vital Signs (last 24 hours): Temp Pulse Resp BP Pulse Ox 97.5 F L 69 18 132/72 100 01/06/17 07:05 01/06/17 07:05 01/06/17 07:05 01/06/17 07:05 01/06/17 07:05 Intake and Output: 01/06/17 01/06/17 06:59 18:59 Intake Total 1800 Output Total 500 Balance 1300 - Medications Medications: Current Medications Amlodipine Besylate (Norvasc) 10 mg PO DAILY [facility] Last Admin: 01/05/17 10:08 Dose: 10 mg Calcium Carbonate (Tums) 1,000 mg PO TID [facility] Last Admin: 01/05/17 18:50 Dose: 1,000 mg Carvedilol (Coreg) 6.25 mg PO BID [facility] Last Admin: 01/05/17 18:50 Dose: 6.25 mg Docusate Sodium (Colace) 100 mg PO TID [facility] Last Admin: 01/05/17 18:50 Dose: 100 mg Duloxetine HCl (Cymbalta) 40 mg PO HS [facility] Last Admin: 01/05/17 21:43 Dose: 40 mg Ferric Sodium Gluconate Complex (Ferrlecit) 125 mg IVPB DAILY [facility] Stop: 01/09/17 10:16 Last Admin: 01/05/17 10:07 Dose: 125 mg Finasteride (Proscar) 5 mg PO DAILY [facility] Last Admin: 01/05/17 10:09 Dose: 5 mg Gabapentin (Neurontin) 100 mg PO TID [facility] Heparin Sodium (Porcine) (Heparin) 5,000 units SC Q12 [facility] Last Admin: 01/05/17 21:43 Dose: 5,000 units Ceftriaxone Sodium (Rocephin Iv 1 Gm Duplex) 50 mls @ 100 mls/hr IVPB Q12H [facility] Last Admin: 01/06/17 02:30 Dose: 100 mls/hr Sodium Chloride (Sodium Chloride 0.9%) 1,000 mls @ 70 mls/hr IV .[id number] [facility] Last Admin: 01/06/17 02:00 Dose: Not Given Insulin Detemir (Levemir) 18 unit SC HS [facility] Last Admin: 01/05/17 21:43 Dose: 18 unit Insulin Human Regular (Novolin R) 0 unit SC ACHS [facility] PRN Reason: Protocol Last Admin: 01/05/17 21:43 Dose: Not Given Mirtazapine (Remeron) 30 mg PO HS [facility] Last Admin: 01/05/17 21:42 Dose: 30 mg Oxycodone/Acetaminophen (Percocet 5/325 Mg Tab) 2 tab PO Q6H PRN PRN Reason: Pain, severe (8-10) Stop: 01/06/17 16:02 Last Admin: 01/06/17 03:10 Dose: 2 tab Pantoprazole Sodium (Protonix Ec Tab) 40 mg PO DAILY [facility] Last Admin: 01/05/17 10:09 Dose: 40 mg Polyethylene Glycol (Miralax) 17 gm PO DAILY PRN PRN Reason: IF NO BM IN 3 DAYS Rosuvastatin Calcium (Crestor) 10 mg PO QPM [facility] Last Admin: 01/05/17 18:52 Dose: 10 mg Saccharomyces Boulardii (Florastor) 250 mg PO BID [facility] Last Admin: 01/05/17 18:50 Dose: 250 mg Tamsulosin HCl (Flomax) 0.4 mg PO DAILY [facility] Last Admin: 01/05/17 10:08 Dose: 0.4 mg - Labs Labs: 01/04/17 07:30 01/06/17 06:15 PT 11.1 SECONDS (9.7-12.2) 12/30/16 19:50 INR 1.0 12/30/16 19:50 APTT 25 SECONDS (21-34) 12/30/16 19:50 - Constitutional Appears: Non-toxic, No Acute Distress - Head Exam Head Exam: NORMAL INSPECTION - Eye Exam Eye Exam: EOMI - ENT Exam ENT Exam: Mucous Membranes Moist - Respiratory Exam Respiratory Exam: Clear to Ausculation Bilateral, NORMAL BREATHING PATTERN. absent: Rales, Rhonchi, Wheezes - Cardiovascular Exam Cardiovascular Exam: REGULAR RHYTHM, +S1, +S2. absent: Gallop, Rubs, Murmur - GI/Abdominal Exam GI & Abdominal Exam: Soft, Normal Bowel Sounds. absent: Tenderness - Extremities Exam Extremities Exam: absent: Pedal Edema - Neurological Exam Neurological Exam: Alert, Awake, Oriented x3 - Psychiatric Exam Psychiatric exam: Normal Affect, Normal Mood - Skin Skin Exam: Normal Color, Warm Assessment and Plan - Assessment and Plan (Free Text) Assessment: Acute kidney failure -Admitted with BUN/Cr: 115/5.1 -No prior history of kidney disease -given 1L NS in ER -100ml/hr NS -Nephrology consult - Dr. Blood - help appreciated -renal ultrasound shows mild fullness of renal collecting system, renal cyst -creatinine is improving BUN/Cr today is 16/1.3 Neuropathy Gabapentin 100mg PO TID Anemia -normocytic -Ferrous sulfate 325 mg PO daily -stool occult blood pending -HGB is improving -may ultimately need bone marrow biopsy -monoclonal proteins pending Altered mental status -Unsteady on his feet -Does not remember falling but patient is a poor historian -F/U Head CT>>> chronic white matter ischemic changes; no acute pathology ( please see full report) -psych consult. Dr. Wolff. recs appreciated. -delirium and early onset dementia -mental status improved Depression -Cymbalta 40mg PO HS -Remeron 30mg PO HS HTN -Norvasc 10mg PO daily -Lisinopril 10mg PO daily -Metoprolol 25mg PO BID Hx of CAD with stent 2016 -Cardiac cath 09/21/[address] Mccoy - nonobstructive LAD, LCX and right coronary lesions (please see full report) -Cardiac Cath 11/24/16 - stents placed; no report found -aspirin and plavix have been discontinued because of low HGB Hyperlipidemia -Crestor 10mg PO QPM Hx of DM -Levemir 18u SC HS -ISS -Monitor Accuchecks hx of s/p femoral artery pseudoaneurysm rupture and repair -November [address] Lorenzo -Discharge back to [facility] when bed available Hx of BPH -Flomax 0.4mg PO daily -Proscar 5mg PO daily GI/DVT ppx -Protonix 40mg PO daily -Heparin 5000U SC Q12 -Miralax 17gm PO daily PRN if no BM in 3 days D/C back to [facility] when bed available All medical management per Dr. Jacky Santana <Андрей Santana S - Last Filed: 01/06/17 12:56> Objective - Vital Signs/Intake and Output Vital Signs (last 24 hours): Temp Pulse Resp BP Pulse Ox 97.5 F L 69 18 132/72 100 01/06/17 07:05 01/06/17 07:05 01/06/17 07:05 01/06/17 07:05 01/06/17 07:05 Intake and Output: 01/06/17 01/06/17 06:59 18:59 Intake Total 1800 Output Total 500 Balance 1300 - Labs Labs: 01/04/17 07:30 01/06/17 06:15 PT 11.1 SECONDS (9.7-12.2) 12/30/16 19:50 INR 1.0 12/30/16 19:50 APTT 25 SECONDS (21-34) 12/30/16 19:50 Assessment and Plan (1) Electrolyte imbalance Status: Acute (2) Pancytopenia Status: Acute (3) Renal insufficiency Status: Acute (4) Right groin pain Status: Acute (5) S/P aneurysm repair Status: Acute (6) Hyponatremia Status: Resolved (7) STEVEN (acute kidney injury) Status: Acute (8) Abdominal pain Status: Acute (9) Anemia Status: Acute (10) Bacteremia Status: Acute (11) Carotid stenosis Status: Acute (12) Chronic cholecystitis due to gallbladder calculus with obstruction Status: Acute (13) Claudication Status: Acute (14) Diabetes mellitus, insulin dependent (IDDM), uncontrolled Status: Acute (15) Distal radius fracture, right Status: Acute (16) E coli bacteremia Status: Acute (17) Elevated alkaline phosphatase level Status: Acute (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, right Status: Acute (19) Femoral artery thrombosis, right Status: Acute (20) Hyperglycemia Status: Acute (21) Hypoglycemia Status: Acute (22) Nausea & vomiting Status: Acute (23) PAD (peripheral artery disease) Status: Acute (24) Pancreatitis Status: Acute (25) Prophylactic measure Status: Acute (26) Pseudoaneurysm of femoral artery Status: Acute (27) S/P femoral-popliteal bypass surgery Status: Acute (28) Syncope Status: Acute (29) Vomiting alone Status: Acute (30) CKD (chronic kidney disease) stage 3, GFR 30-59 ml/min Status: Chronic (31) Chronic pancreatitis Status: Chronic (32) Diabetes Status: Chronic (33) Gallstones Status: Chronic (34) History of BPH Status: Chronic (35) History of anemia Status: Chronic (36) History of depression Status: Chronic (37) History of diabetes mellitus Status: Chronic (38) Hypertension Status: Chronic Attending/Attestation - Attestation I have personally seen and examined this patient.: Yes I have fully participated in the care of the patient.: Yes I have reviewed all pertinent clinical information, including history, physical exam and plan: Yes Notes (Text): Patient examined. Patient reports right foot tingling sensations. Creatinine further reduced to 1.3. Continue ceftriaxone. Continue antidiabetic and antihypertensive medications. Continue supportive care.
[2017-01-06] MEDS: LIPASE/PROTEASE/AMYLASE 4,200 U ECC PO SCH (09:25)
[2017-01-06] MEDS: Calcium Carbonate 500 mg Chewable Antacid Tab PO SCH (09:26)
[2017-01-06] MEDS: Saccharomyces Boulardi 250 mg Cap PO SCH (09:27)
[2017-01-06] MEDS: (Novolin R) Insulin Human Regular 100 units/ml vial SC SCH (09:27)
[2017-01-06] MEDS: Pantoprazole 40 mg EC Tab PO SCH (09:28)
--- NOTE | 2017-01-06 11:02 | CP.PCM.PN ---
Subjective - Date & Time of Evaluation Date of Evaluation: 01/06/17 Time of Evaluation: 11:00 - Subjective Subjective: pt was seen and examined denies any nausea vomiting diarrhea sob chest pain dizziness headache fevers chills rash. + pain in rt leg +weakness labs noted Objective - Vital Signs/Intake and Output Vital Signs (last 24 hours): Temp Pulse Resp BP Pulse Ox 97.5 F L 69 18 132/72 100 01/06/17 07:05 01/06/17 07:05 01/06/17 07:05 01/06/17 07:05 01/06/17 07:05 Intake and Output: 01/06/17 01/06/17 06:59 18:59 Intake Total 1800 Output Total 500 Balance 1300 - Medications Medications: Current Medications Amlodipine Besylate (Norvasc) 10 mg PO DAILY [facility] Last Admin: 01/06/17 09:28 Dose: 10 mg Calcium Carbonate (Tums) 1,000 mg PO TID [facility] Last Admin: 01/06/17 09:26 Dose: 1,000 mg Carvedilol (Coreg) 6.25 mg PO BID [facility] Last Admin: 01/06/17 09:28 Dose: 6.25 mg Docusate Sodium (Colace) 100 mg PO TID [facility] Last Admin: 01/06/17 09:27 Dose: 100 mg Duloxetine HCl (Cymbalta) 40 mg PO HS [facility] Last Admin: 01/05/17 21:43 Dose: 40 mg Ferric Sodium Gluconate Complex (Ferrlecit) 125 mg IVPB DAILY [facility] Stop: 01/09/17 10:16 Last Admin: 01/05/17 10:07 Dose: 125 mg Finasteride (Proscar) 5 mg PO DAILY [facility] Last Admin: 01/06/17 09:28 Dose: 5 mg Gabapentin (Neurontin) 100 mg PO TID [facility] Last Admin: 01/06/17 09:27 Dose: 100 mg Heparin Sodium (Porcine) (Heparin) 5,000 units SC Q12 [facility] Last Admin: 01/05/17 21:43 Dose: 5,000 units Ceftriaxone Sodium (Rocephin Iv 1 Gm Duplex) 50 mls @ 100 mls/hr IVPB Q12H [facility] Last Admin: 01/06/17 02:30 Dose: 100 mls/hr Sodium Chloride (Sodium Chloride 0.9%) 1,000 mls @ 70 mls/hr IV .[id number] [facility] Last Admin: 01/06/17 02:00 Dose: Not Given Insulin Detemir (Levemir) 18 unit SC [facility] Last Admin: 01/05/17 21:43 Dose: 18 unit Insulin Human Regular (Novolin R) 0 unit SC [facility] PRN Reason: Protocol Last Admin: 01/05/17 21:43 Dose: Not Given Mirtazapine (Remeron) 30 mg PO [facility] Last Admin: 01/05/17 21:42 Dose: 30 mg Oxycodone/Acetaminophen (Percocet 5/325 Mg Tab) 2 tab PO Q6H PRN PRN Reason: Pain, severe (8-10) Stop: 01/06/17 16:02 Last Admin: 01/06/17 03:10 Dose: 2 tab Pantoprazole Sodium (Protonix Ec Tab) 40 mg PO DAILY [facility] Last Admin: 01/06/17 09:28 Dose: 40 mg Polyethylene Glycol (Miralax) 17 gm PO DAILY PRN PRN Reason: IF NO BM IN 3 DAYS Rosuvastatin Calcium (Crestor) 10 mg PO QPM [facility] Last Admin: 01/05/17 18:52 Dose: 10 mg Saccharomyces Boulardii (Florastor) 250 mg PO BID [facility] Last Admin: 01/05/17 18:50 Dose: 250 mg Tamsulosin HCl (Flomax) 0.4 mg PO DAILY [facility] Last Admin: 01/06/17 09:27 Dose: 0.4 mg - Labs Labs: 01/04/17 07:30 01/06/17 06:15 PT 11.1 SECONDS (9.7-12.2) 12/30/16 19:50 INR 1.0 12/30/16 19:50 APTT 25 SECONDS (21-34) 12/30/16 19:50 - Constitutional Appears: Non-toxic, No Acute Distress, Cachectic, Chronically Ill - Head Exam Head Exam: NORMAL INSPECTION - Eye Exam Eye Exam: Normal appearance, PERRL Pupil Exam: PERRL - ENT Exam ENT Exam: Mucous Membranes Moist, Normal Exam - Neck Exam Neck Exam: Normal Inspection - Respiratory Exam Respiratory Exam: Clear to Ausculation Bilateral, NORMAL BREATHING PATTERN - Cardiovascular Exam Cardiovascular Exam: REGULAR RHYTHM, RRR - GI/Abdominal Exam GI & Abdominal Exam: Soft, Normal Bowel Sounds - Extremities Exam Extremities Exam: Normal Inspection - Neurological Exam Neurological Exam: Alert, Awake, Oriented x3 - Psychiatric Exam Psychiatric exam: Normal Affect, Normal Mood - Skin Skin Exam: Normal Color Assessment and Plan (1) Renal insufficiency Status: Acute (2) S/P aneurysm repair Status: Acute (3) Hyponatremia Status: Resolved (4) STEVEN (acute kidney injury) Status: Acute (5) Anemia Status: Acute (6) Diabetes mellitus, insulin dependent (IDDM), uncontrolled Status: Acute - Assessment and Plan (Free Text) Assessment: steven resolved bp improved trend, labile. corrected calcium within normal limits. may dc ca supplements
[2017-01-06] MEDS: Ferric Sodium Gluconat Complex 62.5 mg/5 ml Vial IVPB SCH (12:02)
[2017-01-06 15:13] LABS: KAPPA/LAMBDA FREE RATIO 1.74 (0.26-1.65)
[2017-01-06 15:49] VITALS: PULSE 80
[2017-01-06 20:33] LABS: BETA 1 GLOBULIN 0.3 g/dL (0.4-0.6); BETA 2 GLOBULIN 0.4 g/dL (0.2-0.5); GAMMA GLOBULIN 0.9 g/dL (0.8-1.7)
== END 2017-01-06 12:34 | disposition home or self-care (01) | DRG 872 ==
LOC: C.ER 18:55 → C.9E 20:40 → C.6T 21:48
PROVIDERS: ADMIT Internal Medicine Nephrology; ATTEND Internal Medicine Nephrology
PROC: 30233N1 Transfusion of Nonautologous Red Blood Cells into Peripheral Vein, Percutaneous Approach (ICD-10-PCS; principal; 2016-12-31)
DX: A41.51 Sepsis due to Escherichia coli [E. coli] (principal); N17.9 Acute kidney failure, unspecified; D61.818 Other pancytopenia; E10.22 Type 1 diabetes mellitus with diabetic chronic kidney disease; E87.1 Hypo-osmolality and hyponatremia; F03.90 Unspecified dementia, unspecified severity, without behavioral disturbance, psychotic disturbance, mood disturbance, and anxiety; F05 Delirium due to known physiological condition; N18.3 Chronic kidney disease, stage 3 (moderate); K80.10 Calculus of gallbladder with chronic cholecystitis without obstruction; K86.1 Other chronic pancreatitis; R65.20 Severe sepsis without septic shock; E86.0 Dehydration; E87.5 Hyperkalemia; E78.5 Hyperlipidemia, unspecified; Z98.890 Other specified postprocedural states; N28.9 Disorder of kidney and ureter, unspecified; Z85.46 Personal history of malignant neoplasm of prostate; N40.0 Benign prostatic hyperplasia without lower urinary tract symptoms; I25.10 Atherosclerotic heart disease of native coronary artery without angina pectoris; I70.299 Other atherosclerosis of native arteries of extremities, unspecified extremity; F32.9 Major depressive disorder, single episode, unspecified; Z95.5 Presence of coronary angioplasty implant and graft; I65.29 Occlusion and stenosis of unspecified carotid artery; B96.20 Unspecified Escherichia coli [E. coli] as the cause of diseases classified elsewhere; I12.9 Hypertensive chronic kidney disease with stage 1 through stage 4 chronic kidney disease, or unspecified chronic kidney disease; I72.4 Aneurysm of artery of lower extremity; E10.65 Type 1 diabetes mellitus with hyperglycemia; R55 Syncope and collapse; E10.40 Type 1 diabetes mellitus with diabetic neuropathy, unspecified